=== PATIENT | male | born 1960 | race Hispanic/Latino ===

== ENCOUNTER 2017-02-17 | Observation (INO) | payer SELFPAY ==
[2017-02-17] VITALS: BMI 21.1
[2017-02-17 00:26] VITALS: TEMP 98.7
[2017-02-17] MEDS ORDERED: MethylPREDNISolone 40 mg Vial IVP STA (00:37)
--- NOTE | 2017-02-17 00:37 | C.PDOC ---
History Of Present Illness The patient, a 56 y/o male, presents to the ED for evaluation of COPD exacerbation which began several days ago. Patient states he ran out of albuterol and has been using his friend's Combivent with limited improvement. Patient denies fever. He reports green productive phlegm. He denies chest pain. Patient is also complaining of exacerbation of his chronic lower back pain. Patient states he finds limited improvement with Tramadol and Naproxyn. Patient has been prescribed Valium but patient has not been taking it due to working. Patient denies trauma. COPD EXAC X SEV DAYS. RAN OUT OF ALBUTEROL, HAS BEEN USING FRIEND'S COMBIVENT W LIMITED IMPROVE. NO FEVER. +GREEN PROD PHLEGM. NO CP. ALSO CO EXAC CHRONIC LBP. LIMITED IMPROVE W TRAMADOL AND NAPROXYN. PRESCRIBED VALIUM BUT PS HAS NOT BEEN TAKING IT DUE TO WORKING. NO TRAUMA. EXAM S/P NEB X 2 MILD RESP DISTRESS NONTOXIC HEENT NEG LUNGS +RETRACTIONS SPEAKING FULL SENTENCES; SCATTERED EXP WHEEZE CV RRR SINUS TACH BACK AROM WO DIFF NEURO INTACT Time Seen by Provider: 02/17/17 00:25 Chief Complaint (Nursing): Shortness Of Breath History Per: Patient History/Exam Limitations: no limitations Onset/Duration Of Symptoms: Days Current Symptoms Are (Timing): Still Present Initiating Event: Out Of Medications Quality: "Pain" Current Respiratory Medications: See Home Med List Associated Symptoms: Productive Cough (green phlegm ). denies: Fever Additional History Per: Patient Past Medical History Reviewed: Historical Data, Nursing Documentation, Vital Signs Vital Signs: Last Vital Signs Temp 98.7 F 02/17/17 00:17 Pulse 93 H 02/17/17 04:50 Resp 11 L 02/17/17 04:50 BP 137/68 02/17/17 04:50 Pulse Ox 94 L 02/17/17 04:50 - Medical History PMH: COPD, Gastrointestinal Ulcer Denies: Diabetes, Hepatitis, HIV, HTN, Chronic Kidney Disease, Seizures, Sexually Transmitted Disease Surgical History: Appendectomy, Tonsillectomy - [facility] Procedures CONTR ABD ARTERIOGRM NEC (05/20/07) DETOXIFICATION SERVICES FOR SUBSTANCE ABUSE TREATMENT (01/14/17) ESOPHAGOGASTRODUODENOSCOPY [EGD] W/CLOSED BIOPSY (05/20/07) GROUP MOTION PICTURE SCENE BUILDER FOR SUBSTANCE ABUSE TREATMENT, PSYCHOEDUCATION (01/14/17) GROUP MOTION PICTURE SCENE BUILDER FOR SUBSTANCE ABUSE, COGNITIVE BEHAVIORAL (01/14/17) GROUP PSYCHOTHERAPY (11/21/16) INDIV MOTION PICTURE SCENE BUILDER FOR SUBSTANCE ABUSE TREATMENT, PSYCHOEDUCATION (01/14/17) INDIV MOTION PICTURE SCENE BUILDER FOR SUBSTANCE ABUSE, COGNITIVE BEHAVIORAL (01/14/17) INDIV PSYCHOTHERAPY FOR SUBSTANCE ABUSE TREATMENT, SUPPORT (01/14/17) INJECT/INFUSE NEC (03/20/12) Family History: States: Unknown Family Hx - Social History Hx Tobacco Use: Yes Hx Alcohol Use: No Hx Substance Use: No - Immunization History Hx Tetanus Toxoid Vaccination: Yes Hx Influenza Vaccination: Yes Hx Pneumococcal Vaccination: Yes Review Of Systems Except As Marked, All Systems Reviewed And Found Negative. Constitutional: Negative for: Fever Cardiovascular: Negative for: Chest Pain Respiratory: Positive for: Cough, Sputum (green ), Other (+COPD exacerbation ) Musculoskeletal: Positive for: Back Pain Skin: Negative for: Other (no trauma ) Physical Exam - Physical Exam Appears: Non-toxic, Other (mild respirtory distress. s/p nebulizer x2 ) Skin: Normal Color, Warm, Dry Head: Atraumatic, Normacephalic Eye(s): bilateral: Normal Inspection, EOMI Ear(s): Bilateral: Normal Nose: Normal, No Discharge Oral Mucosa: Moist Throat: Normal, No Erythema, No Exudate Neck: Normal ROM, Supple Chest: Symmetrical, No Deformity, No Tenderness Cardiovascular: Rhythm Regular (regular rate and rhythm ), No Murmur, Other (+ sinus tachycardia ) Respiratory: No Rales, No Rhonchi, Wheezing (scattered, expiratory ), Other (+ retractions. speaking full sentences ) Back: Normal Inspection, No Vertebral Tenderness, No Decreased ROM (able to ROM without difficulty ), No Paraspinal Tenderness Extremity: Normal ROM, Capillary Refill (less than 2 seconds ) Neurological/Psych: Oriented x3, Normal Speech, Normal Cognition Gait: Steady ED Course And Treatment - Laboratory Results Result Diagrams: 02/17/17 01:11 02/17/17 01:11 ECG: Interpreted By Me ECG Rhythm: Sinus Tachycardia ECG Interpretation: Normal Rate From EC O2 Sat by Pulse Oximetry: 99 (on RA) Pulse Ox Interpretation: Normal - Radiology CXR: Interpreted by Me, Viewed By Me CXR Interpretation: Yes: No Acute Disease, Other (unchanged from prior ) Progress Note: Labs, CXR, and EKG ordered and reviewed. Patient received Duoneb IH, Solu-Medrol IV, and Toradol IV. ED OBSERVATION Discharge: Yes Date of observation admission: 02/17/17 Time of observation admission: 01:00 - Observation admission statement Patient is being placed in observation because:: COPD EXAC; CHRONIC BACK PAIN EXAC - Goals of Observation Goals of observation are:: SX IMPROVE - Progress Note Progress Note: 02/17/17 02:12 BACK PAIN IMPROVED, STILL W SOME SOB. VSS 02/17/17 05:59 FEELS BETTER NARD VSS Disposition Counseled Patient/Family Regarding: Studies Performed, Diagnosis, Need For Followup, Rx Given - Disposition Disposition: HOME/ ROUTINE Disposition Time: 05:59 Condition: IMPROVED - Clinical Impression Clinical Impression: COPD exacerbation, Chronic back pain - Scribe Statement The provider has reviewed the documentation as recorded by the Scribe (Veronica Clay) Provider Attestation: All medical record entries made by the Scribe were at my direction and personally dictated by me. I have reviewed the chart and agree that the record accurately reflects my personal performance of the history, physical exam, medical decision making, and the department course for this patient. I have also personally directed, reviewed, and agree with the discharge instructions and disposition.
[2017-02-17] MEDS ORDERED: Albuterol 0.083% Inhal Sol (2.5 mg/3 mL) UD ONE (00:47)
[2017-02-17] MEDS ORDERED: MethylPREDNISolone 40 mg Vial ONE (00:47)
[2017-02-17] MEDS: Albuterol-Ipratrop 3 mg / 0.5 (3 ml) UD IH SCH ×3 (00:50→01:15)
[2017-02-17] MEDS ORDERED: Azithromycin 500 MG in Sodium Chloride 0.9% 250 ML IV STA (00:58)
[2017-02-17 01:14] LABS: BASO % 0.1 % (0.0-2.0); EOS # 0.1 K/uL (0.0-0.7); EOS % 0.4 % (0.0-4.0); HEMATOCRIT 36.7 % (35.0-51.0); LYMPH # 1.2 K/uL (1.0-4.3); LYMPH % 7.1 % (20.0-40.0); MEAN CELL VOLUME 94.7 fL (80.0-94.0); MEAN CORPUSCULAR HEMOGLOBIN 32.2 pg (27.0-31.0); MEAN PLATELET VOLUME 9.2 fL (7.2-11.7); MONO # 0.7 K/uL (0.0-0.8); MONO % 4.3 % (0.0-10.0); PLATELET COUNT 153 K/uL (130-400); RED CELL DISTRIBUTION WIDTH 13.5 % (11.5-14.5); WHITE BLOOD COUNT 16.6 K/uL (4.8-10.8)
[2017-02-17 01:21] LABS: CHLORIDE 97 mmol/L (98-107)
[2017-02-17 01:22] LABS: POTASSIUM 3.9 mmol/L (3.6-5.2); SODIUM 135 mmol/L (132-148)
[2017-02-17 01:24] LABS: GFR AFRICAN-AMERICAN > 60
[2017-02-17 01:25] LABS: BLOOD UREA NITROGEN 12 mg/dL (9-20); CALCIUM 8.2 mg/dl (8.6-10.4); CARBON DIOXIDE 26 mmol/L (22-30); GLUCOSE,RANDOM 117 mg/dL (75-110)
[2017-02-17 02:03] LABS: NEUTROPHIL 88 % (50-75); REACTIVE LYMPHOCYTES 1 % (0-0); TOTAL CELLS COUNTED 100
[2017-02-17 04:51] VITALS: BP 137/68; PULSE 93; RESP 11
[2017-02-17 05:59] VITALS: O2SAT 99
--- NOTE | 2017-02-17 13:48 | RAD ---
PROCEDURE: CHEST RADIOGRAPH, 1 VIEW HISTORY: SOB COUGH COMPARISON: 01/16/2027 T FINDINGS: LUNGS: No infiltrate. Pulmonary hyperinflation consistent with emphysema. PLEURA: No pneumothorax or pleural fluid seen. CARDIOVASCULAR: Normal. OSSEOUS STRUCTURES: No significant abnormalities. VISUALIZED UPPER ABDOMEN: Normal. OTHER FINDINGS: None. IMPRESSION: No active disease.
--- NOTE | 2017-02-18 16:19 | CARD ---
APPROVED REPORT EKG Measurement Heart [id number] <Conclusion> Sinus tachycardia Otherwise normal ECG
== END 2017-02-17 05:59 | disposition home or self-care (01) ==
LOC: C.ER → C.9OBSV 01:00
PROVIDERS: ADMIT Emergency Medicine; ATTEND Emergency Medicine
DX: J44.1 Chronic obstructive pulmonary disease with (acute) exacerbation (principal); Z87.891 Personal history of nicotine dependence; Z87.11 Personal history of peptic ulcer disease; G89.29 Other chronic pain; M54.5 Low back pain
CPT/HCPCS: 71010; 80048; 85025; 93005; 94150; 96374; 96375; 99284; G0378; J0456; J1885; J2920; J7050

== ENCOUNTER 2017-02-18 05:12 | Inpatient (IN) | payer SELFPAY ==
[2017-02-18 05:12] VITALS: BMI 21.1
--- NOTE | 2017-02-18 05:26 | C.PDOC ---
History Of Present Illness Patient brought on by ALS for SOB for 2 days but more so tonight.Hx of COPD Chief Complaint (Nursing): Shortness Of Breath History Per: Patient History/Exam Limitations: no limitations Onset/Duration Of Symptoms: Hrs Current Symptoms Are (Timing): Still Present Quality: "Pain" Exacerbating Factor(s): Exertion, Coughing Severity: Moderate Pain Scale Rating Of: 7 Associated Symptoms: Sweating, Chest Pain. denies: Fever, Chills, Bloody Cough , Productive Cough Recent travel outside of the [place]: No Additional History Per: Patient, EMS Past Medical History Vital Signs: Last Vital Signs Temp 98.2 F 02/18/17 05:14 Pulse 105 H 02/18/17 05:14 Resp 16 02/18/17 06:00 BP 107/71 02/18/17 05:14 Pulse Ox 99 02/18/17 06:20 - Medical History PMH: COPD, Gastrointestinal Ulcer Denies: Diabetes, Hepatitis, HIV, HTN, Chronic Kidney Disease, Seizures, Sexually Transmitted Disease Surgical History: Appendectomy, Tonsillectomy - [facility] Procedures CONTR ABD ARTERIOGRM NEC (05/20/07) DETOXIFICATION SERVICES FOR SUBSTANCE ABUSE TREATMENT (01/14/17) ESOPHAGOGASTRODUODENOSCOPY [EGD] W/CLOSED BIOPSY (05/20/07) GROUP SUSTAINABILITY ANALYST FOR SUBSTANCE ABUSE TREATMENT, PSYCHOEDUCATION (01/14/17) GROUP SUSTAINABILITY ANALYST FOR SUBSTANCE ABUSE, COGNITIVE BEHAVIORAL (01/14/17) GROUP PSYCHOTHERAPY (11/21/16) INDIV SUSTAINABILITY ANALYST FOR SUBSTANCE ABUSE TREATMENT, PSYCHOEDUCATION (01/14/17) INDIV SUSTAINABILITY ANALYST FOR SUBSTANCE ABUSE, COGNITIVE BEHAVIORAL (01/14/17) INDIV PSYCHOTHERAPY FOR SUBSTANCE ABUSE TREATMENT, SUPPORT (01/14/17) INJECT/INFUSE NEC (03/20/12) Family History: States: Unknown Family Hx - Social History Hx Tobacco Use: Yes Hx Alcohol Use: No Hx Substance Use: No - Immunization History Hx Tetanus Toxoid Vaccination: Yes Hx Influenza Vaccination: Yes Hx Pneumococcal Vaccination: Yes Review Of Systems Constitutional: Positive for: Sweats. Negative for: Fever, Chills Cardiovascular: Positive for: Chest Pain. Negative for: Palpitations, Orthopnea , Paroxysmal Noc. Dyspnea, Edema Respiratory: Positive for: Cough, Shortness of Breath, Wheezing Gastrointestinal: Negative for: Nausea, Vomiting, Abdominal Pain, Diarrhea Genitourinary: Negative for: Dysuria, Frequency, Incontinence Musculoskeletal: Negative for: Shoulder Pain, Arm Pain Skin: Negative for: Rash Neurological: Negative for: Weakness, Numbness, Incoordination, Change in Speech Psych: Negative for: Anxiety Physical Exam - Physical Exam Appears: In Acute Distress Skin: Normal Color Nose: Normal Oral Mucosa: Moist Throat: Normal Neck: Normal, Normal ROM Chest: Symmetrical, No Deformity, No Tenderness Cardiovascular: Rhythm Regular Respiratory: Decreased Breath Sounds, Accessory Muscle Use, No Rales, Rhonchi, Wheezing Gastrointestinal/Abdominal: Normal Exam Back: Normal Inspection Extremity: Normal ROM, No Tenderness, No Pedal Edema ED Course And Treatment - Laboratory Results Result Diagrams: 02/18/17 06:02 02/18/17 06:02 ECG: Interpreted By Me, Viewed By Me ECG Rhythm: Sinus Rhythm ECG Interpretation: Normal, No Acute Changes Interpretation Of ECG: NSR, ALINA, borderline tracings. Rate From EC O2 Sat by Pulse Oximetry: 99 Pulse Ox Interpretation: Normal - Radiology CXR: Interpreted by Me, Viewed By Me CXR Interpretation: Yes: No Acute Disease. No: Infiltrates, Cardiomegaly Disposition Discussed With : Phillip Dey Doctor Will See Patient In The: Hospital Counseled Patient/Family Regarding: Diagnosis - Disposition Disposition: HOSPITALIZED Disposition Time: 06:30 Condition: STABLE - POA Present On Arrival: None - Clinical Impression Clinical Impression: COPD exacerbation
[2017-02-18] MEDS ORDERED: Sodium Chloride 0.9% 1,000 ML IV ONE (05:29)
[2017-02-18] MEDS ORDERED: Albuterol-Ipratrop 3 mg / 0.5 (3 ml) UD INH STA (05:30)
[2017-02-18 06:05] LABS: BASO % 0.1 % (0.0-2.0); EOS % 0.1 % (0.0-4.0); HEMATOCRIT 38.3 % (35.0-51.0); LYMPH # 1.8 K/uL (1.0-4.3); LYMPH % 8.2 % (20.0-40.0); MEAN CELL VOLUME 95.4 fL (80.0-94.0); MEAN CORPUSCULAR HEMOGLOBIN 32.1 pg (27.0-31.0); MEAN CORPUSCULAR HGB CONC 33.6 g/dL (33.0-37.0); MEAN PLATELET VOLUME 9.1 fL (7.2-11.7); MONO # 1.4 K/uL (0.0-0.8); MONO % 6.2 % (0.0-10.0); PLATELET COUNT 176 K/uL (130-400); RED CELL DISTRIBUTION WIDTH 13.7 % (11.5-14.5); WHITE BLOOD COUNT 22.4 K/uL (4.8-10.8)
[2017-02-18 06:19] LABS: CHLORIDE 101 mmol/L (98-107)
[2017-02-18 06:20] LABS: POTASSIUM 4.3 mmol/L (3.6-5.2); SODIUM 140 mmol/L (132-148)
[2017-02-18 06:22] LABS: ALB/GLOB RATIO 1.2 (1.0-2.1); ALKALINE PHOSPHATASE 60 U/L (38-126); ALT/SGPT 26 U/L (21-72); AST/SGOT 29 U/L (17-59); BILIRUBIN,TOTAL 0.4 mg/dL (0.2-1.3); BLOOD UREA NITROGEN 16 mg/dL (9-20); CARBON DIOXIDE 27 mmol/L (22-30); GFR AFRICAN-AMERICAN > 60; TOTAL PROTEIN 6.6 g/dL (6.3-8.3)
[2017-02-18 06:23] LABS: CALCIUM 8.6 mg/dl (8.6-10.4); GLUCOSE,RANDOM 118 mg/dL (75-110)
[2017-02-18 06:45] LABS: NEUTROPHIL 86 % (50-75); TOTAL CELLS COUNTED 100
--- NOTE | 2017-02-18 08:46 | RAD ---
PROCEDURE: CHEST RADIOGRAPH, 1 VIEW HISTORY: Shortness of breath COMPARISON: None available. FINDINGS: LUNGS: Hyperinflation suggestive for COPD and or emphysematous changes. PLEURA: No pneumothorax or pleural fluid seen. CARDIOVASCULAR: Normal. OSSEOUS STRUCTURES: No significant abnormalities. VISUALIZED UPPER ABDOMEN: Normal. OTHER FINDINGS: None. IMPRESSION: No active disease.
--- NOTE | 2017-02-18 09:22 | CP.PCM.HP ---
<Suman Torres - Last Filed: 02/18/17 21:54> History of Present Illness - History of Present Illness History of Present Illness: CC: SOB + cough x2 days HPI: 56 year old Male with PMHx COPD, GI ulcer, Depression - was brought in by ALS due to SOB and productive cough x4 days. He was recently seen in the ED yesterday for similar complaints. He reports being outside to smoke a cigaret 2 nites ago, when he became severely SOB. He attempted to use his Incruz and Arnuity inhalers, but did not find relief this time (this spurred the ED visit) . This morning, he became SOB while in the bathroom at his alf, felt he could not make it [place] the [place] to take his medicine, and had the alf call him an ambulance. His cough is productive of yellow/green sputum, and has not taken any additional medication besides his inhalers. Admits to diaphoresis, SOB , cough, and diarrhea. Denies f/c, H/A, change in vision, chest pain, abdominal pain, n/v, constipation, or any additional complaints. PMHx: COPD, GI ulcer, Depression, Alcohol abuse, Degenerative disk dz PSHx: tonsillectomy, appendectomy, removal of perianal cysts, GI surgery for perforated ulcer (pt unsure of what surgery) Meds: Duoneb 3mL INH RQ6, Mirtazapine 30mg PO HS, Zoloft 200mg PO, Arnuity ( inhaler), Incruz (inhaler) Allergies: NKDA FamHx: denies SocHx: resides at [facility] for the last 2 mo, works at the [employer]. Tobacco-1.5 ppd x45 yrs, EtOH- stopped 1.5 yrs ago, used to drink pint/ day. Drugs-denies. PMD: [place] (clinic) Present on Admission - Present on Admission Any Indicators Present on Admission: No Review of Systems - Constitutional Constitutional: absent: Anorexia, Chills, Weakness - EENT Eyes: absent: Blurred Vision, Change in Vision Nose/Mouth/Throat: absent: Nasal Congestion, Nasal Discharge - Cardiovascular Cardiovascular: Dyspnea. absent: Chest Pain, Chest Pain at Rest - Respiratory Respiratory: Cough, Dyspnea. absent: Hemoptysis - Gastrointestinal Gastrointestinal: Diarrhea. absent: Bloating, Change in Stool Character, Cramping, Hematemesis, Hematochezia (spotting on toilet paper) - Genitourinary Genitourinary: absent: Difficulty Urinating, Dysuria - Neurological Neurological: absent: Dizziness, Numbness - Psychiatric Psychiatric: absent: Anxiety, Confusion, Depression - Hematologic/Lymphatic Hematologic: absent: Easy Bleeding, Easy Bruising, Lymphadenopathy Past Patient History - Infectious Disease Hx of Infectious Diseases: None - Past Medical History & Family History Past Medical History?: Yes - Past Social History Smoking Status: Heavy Smoker > 10 Cigarettes Daily - CARDIAC Hx Hypertension: No - PULMONARY Hx Chronic Obstructive Pulmonary Disease (COPD): Yes - NEUROLOGICAL Hx Seizures: No - HEENT Hx HEENT Problems: No - RENAL Hx Chronic Kidney Disease: No - ENDOCRINE/METABOLIC Hx Endocrine Disorders: No - HEMATOLOGICAL/ONCOLOGICAL Hx Human Immunodeficiency Virus (HIV): No - INTEGUMENTARY Hx Dermatological Problems: No - MUSCULOSKELETAL/RHEUMATOLOGICAL Hx Musculoskeletal Disorders: No Hx Falls: No - GASTROINTESTINAL Hx Gastroesophageal Reflux: Yes Hx Ulcer: Yes - GENITOURINARY/GYNECOLOGICAL Hx Sexually Transmitted Disorders: No - PSYCHIATRIC Hx Substance Use: No - SURGICAL HISTORY Hx Appendectomy: Yes Hx Tonsillectomy: Yes - ANESTHESIA Hx Anesthesia: Yes Hx Anesthesia Reactions: No Meds Allergies/Adverse Reactions: Allergies Allergy/AdvReac Type Severity Reaction Status Date / Time No Known Allergies Allergy Verified 01/26/17 11:14 Physical Exam - Constitutional Appears: Non-toxic, No Acute Distress - Head Exam Head Exam: ATRAUMATIC, NORMAL INSPECTION - Eye Exam Eye Exam: EOMI - ENT Exam ENT Exam: Mucous Membranes Moist - Neck Exam Neck exam: Positive for: Normal Inspection - Respiratory Exam Respiratory Exam: Clear to Auscultation Bilateral, NORMAL BREATHING PATTERN. absent: Wheezes - Cardiovascular Exam Cardiovascular Exam: REGULAR RHYTHM, +S1, +S2 - GI/Abdominal Exam GI & Abdominal Exam: Normal Bowel Sounds, Soft. absent: Tenderness - Rectal Exam Rectal Exam: Hemorrhoids (mild, internal) - Extremities Exam Extremities exam: Positive for: normal inspection. Negative for: pedal edema, tenderness - Back Exam Back exam: NORMAL INSPECTION - Neurological Exam Neurological exam: Alert, CN II-XII Intact, Oriented x3 - Psychiatric Exam Psychiatric exam: Anxious (mildly), Normal Affect, Normal Mood - Skin Skin Exam: Dry, Intact, Normal Color, Warm Results - Vital Signs Recent Vital Signs: Last Vital Signs Temp 97.4 F L 02/18/17 08:37 Pulse 94 H 02/18/17 08:37 Resp 20 02/18/17 08:37 BP 109/68 02/18/17 08:37 Pulse Ox 97 02/18/17 08:37 - Labs Result Diagrams: 02/18/17 06:02 02/18/17 06:02 Assessment & Plan - Assessment and Plan (Free Text) Assessment: COPD Exacerbation -patient on home inhalers Incruz and Arnuity (didn't take morning of admission) Duoneb 3mL INH RQ6 Solumedrol 40mg IVP Q6H Advair diskus 250/50 RQ12 Spriva 18mcg INH RQ24 Leukocytosis WBC 22.4; neutrophils 84% Avelox 400mg IVPB Q12 Depression Continue home meds: Mirtazapine 30mg PO HS; Zoloft 200mg PO daily hx S/I hx alcohol abuse + detox Spotting on Toilet paper rectal exam - possible internal hemorrhoids -f/u stool occult Prophylaxis Pepcid 20mg PO d Hep 5k SCQ8 - Date & Time Date: 02/18/17 Time: 08:00 <Bakari Benson - Last Filed: 02/19/17 16:02> Results - Vital Signs Recent Vital Signs: Last Vital Signs Temp 97.8 F 02/19/17 08:00 Pulse 88 02/19/17 08:00 Resp 20 02/19/17 08:00 BP 154/85 H 02/19/17 08:00 Pulse Ox 96 02/19/17 08:00 - Labs Result Diagrams: 02/19/17 06:56 02/19/17 06:56 Labs: Laboratory Results - last 24 hr 02/19/17 06:56 WBC 17.4 H RBC 3.73 L Hgb 11.9 L Hct 35.8 MCV 95.8 H MCH 32.0 H MCHC 33.4 RDW 13.9 Plt Count 188 MPV 9.5 Neut % (Auto) 94.5 H Lymph % (Auto) 3.6 L [place] % (Auto) 1.9 Eos % (Auto) 0.0 Baso % (Auto) 0.0 Neut # 16.4 H Lymph # 0.6 L [place] # 0.3 Eos # 0.0 Baso # 0.0 Neutrophils % (Manual) 94 H Lymphocytes % (Manual) 5 L Monocytes % (Manual) 1 Platelet Estimate Normal Large Platelets Present Hypochromasia (manual) Slight Poikilocytosis (manual Slight Anisocytosis (manual) Slight [place] Cells Slight Sodium 139 Potassium 4.5 Chloride 98 Carbon Dioxide 29 Anion Gap 16 BUN 16 Creatinine 0.6 L Est GFR ( Amer) > 60 Est GFR (Non-Af Amer) > 60 Random Glucose 123 H Calcium 8.5 L Phosphorus 3.5 Magnesium 2.1 Total Bilirubin 0.1 L AST 18 ALT 13 L D Alkaline Phosphatase 59 Total Protein 5.8 L Albumin 3.3 L Globulin 2.5 Albumin/Globulin Ratio 1.3 Attending/Attestation - Attestation I have personally seen and examined this patient.: Yes I have fully participated in the care of the patient.: Yes I have reviewed all pertinent clinical information: Yes Notes (Text): 02/19/17 16:02 Patient was seen and examined at bedside with the residents Patient complains of cough with expectoration and was started for COPD exacerbation and for pneumonia I discussed the plan of care with the resident and agree with the above history and physical and assessment/plan by the resident.
[2017-02-18 10:26] LABS: PARTIAL THROMBOPLASTIN TIME 31 SECONDS (21-34)
[2017-02-18] MEDS: Moxifloxacin IV 400mg/250ml NS 250 ML IVPB SCH (10:27)
[2017-02-18] MEDS: MethylPREDNISolone 40 mg Vial IVP SCH ×3 (10:28→21:00)
[2017-02-18] MEDS: Fluticasone-Salmeterol 250-50mcg Diskus INH SCH ×2 (13:14→19:13)
[2017-02-18] MEDS: Albuterol-Ipratrop 3 mg / 0.5 (3 ml) UD INH SCH ×2 (13:14→19:13)
[2017-02-18] MEDS: Tiotropium 18 mcg Cap For Inhalation INH SCH (13:15)
[2017-02-19] MEDS: Albuterol-Ipratrop 3 mg / 0.5 (3 ml) UD INH SCH ×4 (01:06→19:41)
[2017-02-19] MEDS: MethylPREDNISolone 40 mg Vial IVP SCH ×4 (02:20→21:20)
[2017-02-19 07:25] LABS: CHLORIDE 98 mmol/L (98-107); POTASSIUM 4.5 mmol/L (3.6-5.2); SODIUM 139 mmol/L (132-148)
[2017-02-19 07:27] LABS: BILIRUBIN,TOTAL 0.1 mg/dL (0.2-1.3); GFR AFRICAN-AMERICAN > 60
[2017-02-19 07:28] LABS: ALB/GLOB RATIO 1.3 (1.0-2.1); ALKALINE PHOSPHATASE 59 U/L (38-126); ALT/SGPT 13 U/L (21-72); AST/SGOT 18 U/L (17-59); BLOOD UREA NITROGEN 16 mg/dL (9-20); CARBON DIOXIDE 29 mmol/L (22-30); GLUCOSE,RANDOM 123 mg/dL (75-110); PHOSPHOROUS 3.5 mg/dL (2.5-4.5); TOTAL PROTEIN 5.8 g/dL (6.3-8.3)
[2017-02-19 07:29] LABS: CALCIUM 8.5 mg/dl (8.6-10.4); MAGNESIUM 2.1 mg/dL (1.6-2.3)
[2017-02-19 07:42] LABS: HEMATOCRIT 35.8 % (35.0-51.0); LYMPH # 0.6 K/uL (1.0-4.3); LYMPH % 3.6 % (20.0-40.0); MEAN CELL VOLUME 95.8 fL (80.0-94.0); MEAN CORPUSCULAR HGB CONC 33.4 g/dL (33.0-37.0); MEAN PLATELET VOLUME 9.5 fL (7.2-11.7); MONO # 0.3 K/uL (0.0-0.8); MONO % 1.9 % (0.0-10.0); PLATELET COUNT 188 K/uL (130-400); RED CELL DISTRIBUTION WIDTH 13.9 % (11.5-14.5); WHITE BLOOD COUNT 17.4 K/uL (4.8-10.8)
--- NOTE | 2017-02-19 07:42 | CP.PCM.PN ---
<Suman Torres - Last Filed: 02/19/17 21:34> Subjective - Date & Time of Evaluation Date of Evaluation: 02/19/17 Time of Evaluation: 07:10 - Subjective Subjective: PGY1 Medicine Note Patient seen and examined at bedside. No overnight events per nursing. Tolerating diet, no acute complaints. Cough continues to be productive of yellow /green sputum. Reports inhalers are working. Admits to SOB (improving), cough, and diarrhea. Denies f/c, H/A, change in vision, chest pain, abdominal pain, n/v , constipation, or any additional complaints. Objective - Vital Signs/Intake and Output Vital Signs (last 24 hours): Temp Pulse Resp BP Pulse Ox 96.9 F L 74 16 111/70 99 02/19/17 00:07 02/19/17 00:07 02/19/17 00:07 02/19/17 00:07 02/19/17 00:07 Intake and Output: 02/19/17 02/19/17 06:59 18:59 Intake Total 420 Balance 420 - Medications Medications: Current Medications Albuterol/Ipratropium (Duoneb 3 Mg/0.5 Mg (3 Ml) Ud) 3 ml INH RQ6 [facility] Last Admin: 02/19/17 01:06 Dose: Not Given Famotidine (Pepcid) 20 mg PO DAILY [facility] Last Admin: 02/18/17 10:28 Dose: 20 mg Heparin Sodium (Porcine) (Heparin) 5,000 units SC Q8 [facility] Last Admin: 02/19/17 05:45 Dose: 5,000 units Moxifloxacin HCl (Avelox Iv 400mg/250ml Ns) 250 mls @ 167 mls/hr IVPB Q24H [facility] Last Admin: 02/18/17 10:27 Dose: 167 mls/hr Methylprednisolone (Solu-Medrol) 40 mg IVP Q6H [facility] Last Admin: 02/19/17 02:20 Dose: 40 mg Mirtazapine (Remeron) 30 mg PO HS [facility] Last Admin: 02/18/17 22:00 Dose: 30 mg Fluticasone/Salmeterol (Advair Diskus 250/50) 1 puff INH RQ12 [facility] Last Admin: 02/18/17 19:13 Dose: 1 puff Sertraline HCl (Zoloft) 200 mg PO DAILY [facility] Last Admin: 02/18/17 17:45 Dose: 200 mg Tiotropium [place] (Spiriva) 18 mcg INH RQ24 [facility] Last Admin: 02/18/17 13:15 Dose: 18 mcg - Labs Labs: 02/19/17 06:56 APTT 31 SECONDS (21-34) 02/18/17 06:02 - Additional Findings Additional findings: - Constitutional Appears: Non-toxic, No Acute Distress - Head Exam Head Exam: ATRAUMATIC, NORMAL INSPECTION - Eye Exam Eye Exam: EOMI - ENT Exam ENT Exam: Mucous Membranes Moist - Neck Exam Neck exam: Positive for: Normal Inspection - Respiratory Exam Respiratory Exam: Clear to Auscultation Bilateral, NORMAL BREATHING PATTERN. absent: Wheezes - Cardiovascular Exam Cardiovascular Exam: REGULAR RHYTHM, +S1, +S2 - GI/Abdominal Exam GI & Abdominal Exam: Normal Bowel Sounds, Soft. absent: Tenderness - Rectal Exam Rectal Exam: Hemorrhoids (mild, internal) - Extremities Exam Extremities exam: Positive for: normal inspection. Negative for: pedal edema, tenderness - Back Exam Back exam: NORMAL INSPECTION - Neurological Exam Neurological exam: Alert, CN II-XII Intact, Oriented x3 - Psychiatric Exam Psychiatric exam: Anxious (mildly), Normal Affect, Normal Mood - Skin Skin Exam: Dry, Intact, Normal Color, Warm Assessment and Plan - Assessment and Plan (Free Text) Assessment: COPD Exacerbation 02/19: pt reports SOB persists, however the inhalers are helping/improving his condition. Continue current management. -patient on home inhalers Incruz and Arnuity (didn't take morning of admission) Duoneb 3mL INH RQ6 Solumedrol 40mg IVP Q6H Advair diskus 250/50 RQ12 Spriva 18mcg INH RQ24 Leukocytosis 02/19: WBC down trending. Continue abx. WBC 22.4; neutrophils 84% Avelox 400mg IVPB Q12 Depression Continue home meds: Mirtazapine 30mg PO HS; Zoloft 200mg PO daily hx S/I hx alcohol abuse + detox Spotting on Toilet paper rectal exam - possible internal hemorrhoids -stool occult - negative Prophylaxis Pepcid 20mg PO d Hep 5k SCQ8 Nicotine patch. <Bakari Benson - Last Filed: 02/20/17 15:14> Objective - Vital Signs/Intake and Output Vital Signs (last 24 hours): Temp Pulse Resp BP Pulse Ox 97.9 F 86 20 161/83 H 99 02/20/17 08:00 02/20/17 08:00 02/20/17 08:00 02/20/17 08:00 02/20/17 08:00 Intake and Output: 02/20/17 02/20/17 06:59 18:59 Intake Total 300 Balance 300 - Medications Medications: Current Medications Albuterol/Ipratropium (Duoneb 3 Mg/0.5 Mg (3 Ml) Ud) 3 ml INH RQ6 [facility] Last Admin: 02/20/17 14:16 Dose: 3 ml Famotidine (Pepcid) 20 mg PO DAILY [facility] Last Admin: 02/20/17 11:42 Dose: 20 mg Heparin Sodium (Porcine) (Heparin) 5,000 units SC Q8 [facility] Last Admin: 02/20/17 14:51 Dose: 5,000 units Moxifloxacin HCl (Avelox Iv 400mg/250ml Ns) 250 mls @ 167 mls/hr IVPB Q24H [facility] Last Admin: 02/20/17 09:05 Dose: 167 mls/hr Methylprednisolone (Solu-Medrol) 40 mg IVP Q8 [facility] Mirtazapine (Remeron) 30 mg PO HS [facility] Last Admin: 02/19/17 21:20 Dose: 30 mg Nicotine (Nicoderm Cq) 1 patch TD DAILY [facility] Last Admin: 02/20/17 11:42 Dose: 1 patch Fluticasone/Salmeterol (Advair Diskus 250/50) 1 puff INH RQ12 [facility] Last Admin: 02/20/17 08:30 Dose: 1 puff Sertraline HCl (Zoloft) 200 mg PO DAILY [facility] Last Admin: 02/20/17 11:42 Dose: 200 mg Tiotropium [place] (Spiriva) 18 mcg INH RQ24 [facility] Last Admin: 02/20/17 08:30 Dose: 18 mcg - Labs Labs: 02/20/17 08:30 02/20/17 08:30 APTT 31 SECONDS (21-34) 02/18/17 06:02 Attending/Attestation - Attestation I have personally seen and examined this patient.: Yes I have fully participated in the care of the patient.: Yes I have reviewed all pertinent clinical information, including history, physical exam and plan: Yes Notes (Text): 02/20/17 15:12 Patient was seen and examined at bedside with the resident Patient still has cough and expectoration We will continue antibiotics Patient is currently on Avelox We will also continue steroids for wheezing Patient is not ready for discharge today.
[2017-02-19 08:34] VITALS: RESP 20
[2017-02-19] MEDS: Fluticasone-Salmeterol 250-50mcg Diskus INH SCH ×2 (08:38→19:41)
[2017-02-19] MEDS: Tiotropium 18 mcg Cap For Inhalation INH SCH (08:38)
[2017-02-19] MEDS: Moxifloxacin IV 400mg/250ml NS 250 ML IVPB SCH (09:40)
[2017-02-19 09:42] LABS: NEUTROPHIL 94 % (50-75); TOTAL CELLS COUNTED 100
[2017-02-19 09:43] LABS: LARGE PLATELETS PRESENT
[2017-02-20] MEDS: Albuterol-Ipratrop 3 mg / 0.5 (3 ml) UD INH SCH ×4 (01:36→20:06)
[2017-02-20] MEDS: MethylPREDNISolone 40 mg Vial IVP SCH ×4 (02:29→21:40)
[2017-02-20] MEDS: Tiotropium 18 mcg Cap For Inhalation INH SCH (08:30)
[2017-02-20] MEDS: Fluticasone-Salmeterol 250-50mcg Diskus INH SCH ×2 (08:30→20:07)
[2017-02-20 08:38] LABS: BASO % 0.1 % (0.0-2.0); HEMATOCRIT 38.8 % (35.0-51.0); LYMPH # 0.7 K/uL (1.0-4.3); LYMPH % 3.9 % (20.0-40.0); MEAN CELL VOLUME 95.9 fL (80.0-94.0); MEAN CORPUSCULAR HEMOGLOBIN 31.6 pg (27.0-31.0); MEAN CORPUSCULAR HGB CONC 32.9 g/dL (33.0-37.0); MEAN PLATELET VOLUME 9.3 fL (7.2-11.7); MONO # 0.3 K/uL (0.0-0.8); MONO % 1.7 % (0.0-10.0); PLATELET COUNT 223 K/uL (130-400); RED CELL DISTRIBUTION WIDTH 13.8 % (11.5-14.5); WHITE BLOOD COUNT 16.8 K/uL (4.8-10.8)
[2017-02-20 08:47] LABS: CHLORIDE 98 mmol/L (98-107); POTASSIUM 3.9 mmol/L (3.6-5.2); SODIUM 141 mmol/L (132-148)
[2017-02-20 08:49] LABS: ALB/GLOB RATIO 1.3 (1.0-2.1); ALKALINE PHOSPHATASE 58 U/L (38-126); AST/SGOT 24 U/L (17-59); BILIRUBIN,TOTAL 0.1 mg/dL (0.2-1.3); BLOOD UREA NITROGEN 15 mg/dL (9-20); CARBON DIOXIDE 30 mmol/L (22-30); GFR AFRICAN-AMERICAN > 60; GLUCOSE,RANDOM 149 mg/dL (75-110); TOTAL PROTEIN 5.7 g/dL (6.3-8.3)
[2017-02-20 08:50] LABS: ALT/SGPT 27 U/L (21-72); CALCIUM 8.4 mg/dl (8.6-10.4); PHOSPHOROUS 4.1 mg/dL (2.5-4.5)
[2017-02-20] MEDS: Moxifloxacin IV 400mg/250ml NS 250 ML IVPB SCH (09:05)
[2017-02-20 09:27] LABS: NEUTROPHIL 90 % (50-75); TOTAL CELLS COUNTED 100
[2017-02-20] MEDS ORDERED: MethylPREDNISolone 40 mg Vial IVP SCH (14:00)
--- NOTE | 2017-02-20 20:23 | CP.PCM.PN ---
<Marco AvivianeSuman - Last Filed: 02/20/17 20:23> Subjective - Date & Time of Evaluation Date of Evaluation: 02/20/17 Time of Evaluation: 08:00 - Subjective Subjective: PGY1 Medicine Note Patient seen and examined at bedside. No overnight events per nursing. Tolerating diet, no acute complaints. Cough is improving, mildly productive. Reports inhalers are working. Reports SOB and cough are improving. Denies f/c, H /A, change in vision, chest pain, abdominal pain, n/v, diarrhea, constipation, or any additional complaints. Objective - Vital Signs/Intake and Output Vital Signs (last 24 hours): Temp Pulse Resp BP Pulse Ox 98.4 F 92 H 20 149/79 95 02/20/17 15:25 02/20/17 15:25 02/20/17 15:25 02/20/17 15:25 02/20/17 15:25 Intake and Output: 02/20/17 02/21/17 18:59 06:59 Intake Total 730 Balance 730 - Medications Medications: Current Medications Albuterol/Ipratropium (Duoneb 3 Mg/0.5 Mg (3 Ml) Ud) 3 ml INH RQ6 FERNANDA Last Admin: 02/20/17 20:06 Dose: 3 ml Famotidine (Pepcid) 20 mg PO DAILY FERNANDA Last Admin: 02/20/17 11:42 Dose: 20 mg Heparin Sodium (Porcine) (Heparin) 5,000 units SC Q8 FERNANDA Last Admin: 02/20/17 14:51 Dose: 5,000 units Moxifloxacin HCl (Avelox Iv 400mg/250ml Ns) 250 mls @ 167 mls/hr IVPB Q24H FERNANDA Last Admin: 02/20/17 09:05 Dose: 167 mls/hr Methylprednisolone (Solu-Medrol) 40 mg IVP Q8 FERNANDA Last Admin: 02/20/17 17:22 Dose: 40 mg Mirtazapine (Remeron) 30 mg PO HS [facility]ERNANDA Last Admin: 02/19/17 21:20 Dose: 30 mg Nicotine (Nicoderm Cq) 1 patch TD DAILY [facility]ERNANDA Last Admin: 02/20/17 11:42 Dose: 1 patch Fluticasone/Salmeterol (Advair Diskus 250/50) 1 puff INH RQ12 [facility]ERNANDA Last Admin: 02/20/17 20:07 Dose: 1 puff Sertraline HCl (Zoloft) [address] [facility] Last Admin: 02/20/17 11:42 Dose: 200 mg Tiotropium Hardy (Spiriva) [address] [facility] Last Admin: 02/20/17 08:30 Dose: 18 mcg - Labs Labs: 02/20/17 08:30 02/20/17 08:30 APTT 31 SECONDS (21-34) 02/18/17 06:02 - Additional Findings Additional findings: - Constitutional Appears: Non-toxic, No Acute Distress - Head Exam Head Exam: ATRAUMATIC, NORMAL INSPECTION - Eye Exam Eye Exam: EOMI - ENT Exam ENT Exam: Mucous Membranes Moist - Neck Exam Neck exam: Positive for: Normal Inspection - Respiratory Exam Respiratory Exam: Clear to Auscultation Bilateral, NORMAL BREATHING PATTERN. absent: Wheezes - Cardiovascular Exam Cardiovascular Exam: REGULAR RHYTHM, +S1, +S2 - GI/Abdominal Exam GI & Abdominal Exam: Normal Bowel Sounds, Soft. absent: Tenderness - Rectal Exam Rectal Exam: Hemorrhoids (mild, internal) - Extremities Exam Extremities exam: Positive for: normal inspection. Negative for: pedal edema, tenderness - Back Exam Back exam: NORMAL INSPECTION - Neurological Exam Neurological exam: Alert, CN II-XII Intact, Oriented x3 - Psychiatric Exam Psychiatric exam: Anxious (mildly), Normal Affect, Normal Mood - Skin Skin Exam: Dry, Intact, Normal Color, Warm Assessment and Plan - Assessment and Plan (Free Text) Assessment: COPD Exacerbation 02/20: Dec to Solumedrol 40mg IVP Q8H. Tomorrow will further taper. 02/19-02/20: SOB improving. Inhalers are helping/improving his condition. Continue current management. -patient on home inhalers Incruz and Arnuity (didn't take morning of admission) Duoneb 3mL INH RQ6 Solumedrol 40mg IVP Q8H Advair diskus 250/50 RQ12 Spriva 18mcg INH RQ24 Leukocytosis 02/19-02/20: WBC down trending. Continue abx. WBC 22.4; neutrophils 84% Avelox 400mg IVPB Q12 Depression 02/20: Stable Continue home meds: Mirtazapine 30mg PO HS; Zoloft 200mg PO daily hx S/I hx alcohol abuse + detox Spotting on Toilet paper rectal exam - possible internal hemorrhoids -stool occult - negative Prophylaxis Pepcid 20mg PO d Hep 5k SCQ8 Nicotine patch. <Minerva Bensonkane Altman - Last Filed: 02/21/17 09:11> Objective - Vital Signs/Intake and Output Vital Signs (last 24 hours): Temp Pulse Resp BP Pulse Ox 98 F 93 H 20 136/79 95 02/21/17 07:00 02/21/17 07:00 02/21/17 07:00 02/21/17 07:00 02/21/17 07:00 Intake and Output: 02/21/17 02/21/17 06:59 18:59 Intake Total 300 Output Total 500 Balance -200 - Medications Medications: Current Medications Albuterol/Ipratropium (Duoneb 3 Mg/0.5 Mg (3 Ml) Ud) [address] [facility] Last Admin: 02/21/17 07:58 Dose: 3 ml Famotidine (Pepcid) [address] [facility] Last Admin: 02/20/17 11:42 Dose: 20 mg Heparin Sodium (Porcine) (Heparin) 5,[address] [facility] Last Admin: 02/21/17 05:45 Dose: 5,000 units Moxifloxacin HCl (Avelox Iv 400mg/250ml Ns) 250 mls @ 167 mls/hr IVPB Q24H [facility] Last Admin: 02/20/17 09:05 Dose: 167 mls/hr Methylprednisolone (Solu-Medrol) [address] [facility] Last Admin: 02/21/17 05:45 Dose: 40 mg Mirtazapine (Remeron) [address] [facility] Last Admin: 02/20/17 21:40 Dose: 30 mg Nicotine (Nicoderm Cq) [address] [facility] Last Admin: 02/20/17 11:42 Dose: 1 patch Fluticasone/Salmeterol (Advair Diskus 250/50) [address] [facility] Last Admin: 02/21/17 07:59 Dose: 1 puff Sertraline HCl (Zoloft) [address] [facility] Last Admin: 02/20/17 11:42 Dose: 200 mg Tiotropium Hardy (Spiriva) [address] [facility] Last Admin: 02/21/17 07:58 Dose: 18 mcg - Labs Labs: 02/21/17 07:47 02/21/17 07:47 APTT 31 SECONDS (21-34) 02/18/17 06:02 Attending/Attestation - Attestation I have personally seen and examined this patient.: Yes I have fully participated in the care of the patient.: Yes I have reviewed all pertinent clinical information, including history, physical exam and plan: Yes Notes (Text): 02/21/17 09:10 Patient was seen and examined at bedside with the resident Cough and expectoration is improving We will continue IV steroids and IV antibiotics We will taper down the steroids to 40 mg every 8 hours today. We will monitor the patient overnight and if the patient is medically stable for likely discharge in the morning. Discussed the plan of care with the resident and agree with the above assessment and plan but the resident
[2017-02-21] MEDS: Albuterol-Ipratrop 3 mg / 0.5 (3 ml) UD INH SCH ×3 (01:28→14:16)
[2017-02-21] MEDS: MethylPREDNISolone 40 mg Vial IVP SCH (05:45)
[2017-02-21 07:58] LABS: BASO % 0.1 % (0.0-2.0); HEMATOCRIT 36.1 % (35.0-51.0); LYMPH # 0.9 K/uL (1.0-4.3); LYMPH % 6.7 % (20.0-40.0); MEAN CELL VOLUME 94.9 fL (80.0-94.0); MEAN CORPUSCULAR HEMOGLOBIN 31.7 pg (27.0-31.0); MEAN CORPUSCULAR HGB CONC 33.4 g/dL (33.0-37.0); MONO # 0.4 K/uL (0.0-0.8); MONO % 3.5 % (0.0-10.0); PLATELET COUNT 222 K/uL (130-400); RED CELL DISTRIBUTION WIDTH 13.7 % (11.5-14.5); WHITE BLOOD COUNT 12.7 K/uL (4.8-10.8)
[2017-02-21] MEDS: Tiotropium 18 mcg Cap For Inhalation INH SCH (07:58)
[2017-02-21] MEDS: Fluticasone-Salmeterol 250-50mcg Diskus INH SCH (07:59)
[2017-02-21 08:03] LABS: CHLORIDE 96 mmol/L (98-107); SODIUM 138 mmol/L (132-148)
[2017-02-21 08:05] LABS: ALB/GLOB RATIO 1.2 (1.0-2.1); AST/SGOT 23 U/L (17-59); BILIRUBIN,TOTAL 0.1 mg/dL (0.2-1.3); CARBON DIOXIDE 31 mmol/L (22-30); GFR AFRICAN-AMERICAN > 60; TOTAL PROTEIN 5.3 g/dL (6.3-8.3)
[2017-02-21 08:06] LABS: ALKALINE PHOSPHATASE 52 U/L (38-126); ALT/SGPT 31 U/L (21-72); BLOOD UREA NITROGEN 16 mg/dL (9-20); CALCIUM 8.2 mg/dl (8.6-10.4); GLUCOSE,RANDOM 100 mg/dL (75-110); PHOSPHOROUS 3.9 mg/dL (2.5-4.5)
[2017-02-21 08:50] VITALS: O2SAT 95
[2017-02-21 09:22] LABS: MYELOCYTE 1 % (0-0); NEUTROPHIL 87 % (50-75); TOTAL CELLS COUNTED 100
[2017-02-21] MEDS: Moxifloxacin IV 400mg/250ml NS 250 ML IVPB SCH (09:56)
[2017-02-21] MEDS ORDERED: Diphenhydramine 1% Cream (1 oz) TOP SCH (11:15)
[2017-02-21] MEDS ORDERED: MethylPREDNISolone 40 mg Vial IVP SCH (15:00)
[2017-02-21 17:10] VITALS: BP 144/84; PULSE 85; TEMP 97.9
--- NOTE | 2017-02-21 20:07 | CARD ---
APPROVED REPORT EKG Measurement Heart [id number] <Conclusion> Normal sinus rhythm Right atrial enlargement Borderline ECG
--- NOTE | 2017-02-21 20:35 | CP.PCM.DIS ---
<Suman Torres - Last Filed: 02/24/17 19:53> Provider - Provider Date of Admission: 02/18/17 22:05 Attending physician: Phillip Dey MD Time Spent in preparation of Discharge (in minutes): 40 Hospital Course - Lab Results Lab Results: Most Recent Lab Values WBC 12.7 K/uL (4.8-10.8) H 02/21/17 07:47 RBC 3.80 Mil/uL (4.40-5.90) L 02/21/17 07:47 Hgb 12.0 g/dL (12.0-18.0) 02/21/17 07:47 Hct 36.1 % (35.0-51.0) 02/21/17 07:47 MCV 94.9 fL (80.0-94.0) H 02/21/17 07:47 MCH 31.7 pg (27.0-31.0) H 02/21/17 07:47 MCHC 33.4 g/dL (33.0-37.0) 02/21/17 07:47 RDW 13.7 % (11.5-14.5) 02/21/17 07:47 Plt Count 222 K/uL (130-400) 02/21/17 07:47 MPV 9.0 fL (7.2-11.7) 02/21/17 07:47 Neut % (Auto) 89.7 % (50.0-75.0) H 02/21/17 07:47 Lymph % (Auto) 6.7 % (20.0-40.0) L 02/21/17 07:47 [place] % (Auto) 3.5 % (0.0-10.0) 02/21/17 07:47 Eos % (Auto) 0.0 % (0.0-4.0) 02/21/17 07:47 Baso % (Auto) 0.1 % (0.0-2.0) 02/21/17 07:47 Neut # 11.4 K/uL (1.8-7.0) H 02/21/17 07:47 Lymph # 0.9 K/uL (1.0-4.3) L 02/21/17 07:47 [place] # 0.4 K/uL (0.0-0.8) 02/21/17 07:47 Eos # 0.0 K/uL (0.0-0.7) 02/21/17 07:47 Baso # 0.0 K/uL (0.0-0.2) 02/21/17 07:47 Neutrophils % (Manual) 87 % (50-75) H 02/21/17 07:47 Band Neutrophils % 1 % (0-2) 02/21/17 07:47 Lymphocytes % (Manual) 9 % (20-40) L 02/21/17 07:47 Monocytes % (Manual) 2 % (0-10) 02/21/17 07:47 Myelocytes % 1 % (0-0) H 02/21/17 07:47 Platelet Estimate Normal (NORMAL) 02/21/17 07:47 Large Platelets Present 02/19/17 06:56 RBC Morphology Normal 02/20/17 08:30 Hypochromasia (manual) Slight 02/19/17 06:56 Poikilocytosis (manual Slight 02/19/17 06:56 Anisocytosis (manual) Slight 02/19/17 06:56 Ovalocytes Slight 02/21/17 07:47 [place] Cells Slight 02/19/17 06:56 APTT 31 SECONDS (21-34) 02/18/17 06:02 D-Dimer, Quantitative < 200 ng/mlDDU (0-243) 02/18/17 06:02 Sodium 138 mmol/L (132-148) 02/21/17 07:47 Potassium 4.0 mmol/L (3.6-5.2) 02/21/17 07:47 Chloride 96 mmol/L (98-107) L 02/21/17 07:47 Carbon Dioxide 31 mmol/L (22-30) H 02/21/17 07:47 Anion Gap 15 (10-20) 02/21/17 07:47 BUN 16 mg/dL (9-20) 02/21/17 07:47 Creatinine 0.6 MG/DL (0.8-1.5) L 02/21/17 07:47 Est GFR ( Amer) > 60 02/21/17 07:47 Est GFR (Non-Af Amer) > 60 02/21/17 07:47 Random Glucose 100 mg/dL (75-110) 02/21/17 07:47 Calcium 8.2 mg/dl (8.6-10.4) L 02/21/17 07:47 Phosphorus 3.9 mg/dL (2.5-4.5) 02/21/17 07:47 Magnesium 2.0 mg/dL (1.6-2.3) 02/21/17 07:47 Total Bilirubin 0.1 mg/dL (0.2-1.3) L 02/21/17 07:47 AST 23 U/L (17-59) 02/21/17 07:47 ALT 31 U/L (21-72) 02/21/17 07:47 Alkaline Phosphatase 52 U/L (38-126) 02/21/17 07:47 Troponin I < 0.0120 ng/mL (0.00-0.120) 02/18/17 06:02 NT-Pro-B Natriuret Pep 165 pg/mL (0-900) 02/18/17 06:02 Total Protein 5.3 g/dL (6.3-8.3) L 02/21/17 07:47 Albumin 2.9 g/dL (3.5-5.0) L 02/21/17 07:47 Globulin 2.4 gm/dL (2.2-3.9) 02/21/17 07:47 Albumin/Globulin Ratio 1.2 (1.0-2.1) 02/21/17 07:47 Stool Occult Blood Negative (NEGATIVE) 02/18/17 13:46 - Hospital Course Hospital Course: Upon hospital admission: 56 year old Male with PMHx COPD, GI ulcer, Depression - was brought in by ALS due to SOB and productive cough x4 days. He was recently seen in the ED yesterday for similar complaints. He reports being outside to smoke a cigaret 2 nites ago, when he became severely SOB. He attempted to use his Incruz and Arnuity inhalers, but did not find relief this time (this spurred the ED visit). This morning, he became SOB while in the bathroom at his detention, felt he could not make it down the [place] to take his medicine, and had the detention call him an ambulance. His cough is productive of yellow/green sputum, and has not taken any additional medication besides his inhalers. Admits to diaphoresis, SOB, cough, and diarrhea. Denies f/c, H/A, change in vision, chest pain, abdominal pain, n/v, constipation, or any additional complaints. PMHx: COPD, GI ulcer, Depression, Alcohol abuse, Degenerative disk dz PSHx: tonsillectomy, appendectomy, removal of perianal cysts, GI surgery for perforated ulcer (pt unsure of what surgery) Meds: Duoneb 3mL INH RQ6, Mirtazapine 30mg PO HS, Zoloft 200mg PO, Arnuity ( inhaler), Incruz (inhaler) Allergies: NKDA FamHx: denies SocHx: resides at [facility] for the last 2 mo, works at the [employer]. Tobacco-1.5 ppd x45 yrs, EtOH- stopped 1.5 yrs ago, used to drink pint/ day. Drugs-denies. PMD: [place] (clinic) During hospital course, the patient was evaluated and treated for the following : (1) COPD Exacerbation for which the patient was tx with Duoneb 3mL INH RQ6, Solumedrol 40mg IVP Q8H, Advair diskus 250/50 RQ12, and Spriva 18mcg INH RQ24. Towards the end of his stay, he was switched from IV to PO steroids. (2) Leukocytosis with WBC 22.4; neutrophils 84% on admission. Patient also had + cough. Tx with Avelox 400mg IVPB Q12. (3) Depression tx with home meds: Mirtazapine 30mg PO HS and Zoloft 200mg PO daily. He denies suicidal ideations during his stay. (4) Spotting on Toilet paper for which rectal exam showed mild internal hemorrhoids. Stool occult test resulted negative. To follow up with PMD. Upon hospital discharge, the patient was provided with the following instructions: Patient is stable for discharge per Dr. Benson. Patient should resume all medications as outlined in this document. Additionally, patient should take the new medications listed below (scripts provided). 1. Please make an appointment and follow up with Primary Doctor within one week of discharge. If patient does not have a Primary Doctor, please follow up with [facility] to establish medical care, at [phone]. Patient should return to ED immediately if symptoms return or worsen. Instructions discussed with patient who understood and agreed. Newly prescribed medications: Albuterol HFA 90mcg 1puff IH Q4 #30days Advair diskus 250/50 1puff INH RQ12H #30days Ketoconoazole 2% Cr - apply TP daily #14days Spiriva 18mcg INH RQ24 #30days Levaquin 750mg PO Daily #4days Prednisone 10mg PO daily #20, Please follow taper below: Days 1-2: 40mg daily; Days 3-4: 30mg daily Days 5-6: 20mg daily; Days 7-8: 10mg daily. This is a summary of the patient's hospital admission, see chart for comprehensive detail. - Date & Time of H&P Date of H&P: 02/18/ Time of H&P: 09:21 Discharge Exam - Additional Findings Additional findings: - Constitutional Appears: Non-toxic, No Acute Distress - Head Exam Head Exam: ATRAUMATIC, NORMAL INSPECTION - Eye Exam Eye Exam: EOMI - ENT Exam ENT Exam: Mucous Membranes Moist - Neck Exam Neck exam: Positive for: Normal Inspection - Respiratory Exam Respiratory Exam: Clear to Auscultation Bilateral, NORMAL BREATHING PATTERN. absent: Wheezes - Cardiovascular Exam Cardiovascular Exam: REGULAR RHYTHM, +S1, +S2 - GI/Abdominal Exam GI & Abdominal Exam: Normal Bowel Sounds, Soft. absent: Tenderness - Rectal Exam Rectal Exam: Hemorrhoids (mild, internal) - Extremities Exam Extremities exam: Positive for: normal inspection. Negative for: pedal edema, tenderness - Back Exam Back exam: NORMAL INSPECTION - Neurological Exam Neurological exam: Alert, CN II-XII Intact, Oriented x3 - Psychiatric Exam Psychiatric exam: Normal Affect, Normal Mood - Skin Skin Exam: Dry, Intact, Normal Color, Warm Discharge Plan - Discharge Medications Prescriptions: Albuterol HFA [Ventolin HFA 90 mcg/actuation (8 g)] 1 puff IH Q4 #1 inhaler Fluticasone/Salmeterol 250/50 [Advair Diskus 250/50] 1 puff INH RQ12 30 Days Ketoconazole 2% Cr [Nizoral] 1 appl TP DAILY 14 Days Tiotropium [Spiriva] 18 mcg INH RQ24 30 Days Tiotropium Friendship Inhaler [Spiriva Inhalation Handihaler Device] 1 inhaler INH ONCE 30 Days levoFLOXacin [Levaquin] 750 mg PO DAILY 4 Days predniSONE [predniSONE Tab] 10 mg PO DAILY #20 tab - Follow Up Plan Condition: STABLE Disposition: HOME/ ROUTINE Instructions: Albuterol (By breathing), Ketoconazole (By mouth), Levofloxacin ( By mouth), Fluticasone/Salmeterol (By breathing), Tiotropium (By breathing), COPD (Chronic Obstructive Pulmonary Disease) (DC) Additional Instructions: Patient is stable for discharge per Dr. Benson. Patient should resume all medications as outlined in this document. Additionally, patient should take the new medications listed below (scripts provided). 1. Please make an appointment and follow up with Primary Doctor within one week of discharge. If patient does not have a Primary Doctor, please follow up with [facility] to establish medical care, at [phone]. Patient should return to ED immediately if symptoms return or worsen. Instructions discussed with patient who understood and agreed. Newly prescribed medications: Albuterol HFA 90mcg 1puff IH Q4 #30days Advair diskus 250/50 1puff INH RQ12H #30days Ketoconoazole 2% Cr - apply TP daily #14days Spiriva 18mcg INH RQ24 #30days Levaquin 750mg PO Daily #4days Prednisone 10mg PO daily #20, Please follow taper below: Days 1-2: 40mg daily; Days 3-4: 30mg daily Days 5-6: 20mg daily; Days 7-8: 10mg daily. Referrals: Mili Dawson MD [Staff Provider] - <Bakari Benson - Last Filed: 02/28/17 14:43> Provider - Provider Date of Admission: 02/18/17 22:05 Attending physician: Phillip Dey MD Hospital Course - Lab Results Lab Results: Most Recent Lab Values WBC 12.7 K/uL (4.8-10.8) H 02/21/17 07:47 RBC 3.80 Mil/uL (4.40-5.90) L 02/21/17 07:47 Hgb 12.0 g/dL (12.0-18.0) 02/21/17 07:47 Hct 36.1 % (35.0-51.0) 02/21/17 07:47 MCV 94.9 fL (80.0-94.0) H 02/21/17 07:47 MCH 31.7 pg (27.0-31.0) H 02/21/17 07:47 MCHC 33.4 g/dL (33.0-37.0) 02/21/17 07:47 RDW 13.7 % (11.5-14.5) 02/21/17 07:47 Plt Count 222 K/uL (130-400) 02/21/17 07:47 MPV 9.0 fL (7.2-11.7) 02/21/17 07:47 Neut % (Auto) 89.7 % (50.0-75.0) H 02/21/17 07:47 Lymph % (Auto) 6.7 % (20.0-40.0) L 02/21/17 07:47 [place] % (Auto) 3.5 % (0.0-10.0) 02/21/17 07:47 Eos % (Auto) 0.0 % (0.0-4.0) 02/21/17 07:47 Baso % (Auto) 0.1 % (0.0-2.0) 02/21/17 07:47 Neut # 11.4 K/uL (1.8-7.0) H 02/21/17 07:47 Lymph # 0.9 K/uL (1.0-4.3) L 02/21/17 07:47 [place] # 0.4 K/uL (0.0-0.8) 02/21/17 07:47 Eos # 0.0 K/uL (0.0-0.7) 02/21/17 07:47 Baso # 0.0 K/uL (0.0-0.2) 02/21/17 07:47 Neutrophils % (Manual) 87 % (50-75) H 02/21/17 07:47 Band Neutrophils % 1 % (0-2) 02/21/17 07:47 Lymphocytes % (Manual) 9 % (20-40) L 02/21/17 07:47 Monocytes % (Manual) 2 % (0-10) 02/21/17 07:47 Myelocytes % 1 % (0-0) H 02/21/17 07:47 Platelet Estimate Normal (NORMAL) 02/21/17 07:47 Large Platelets Present 02/19/17 06:56 RBC Morphology Normal 02/20/17 08:30 Hypochromasia (manual) Slight 02/19/17 06:56 Poikilocytosis (manual Slight 02/19/17 06:56 Anisocytosis (manual) Slight 02/19/17 06:56 Ovalocytes Slight 02/21/17 07:47 [place] Cells Slight 02/19/17 06:56 APTT 31 SECONDS (21-34) 02/18/17 06:02 D-Dimer, Quantitative < 200 ng/mlDDU (0-243) 02/18/17 06:02 Sodium 138 mmol/L (132-148) 02/21/17 07:47 Potassium 4.0 mmol/L (3.6-5.2) 02/21/17 07:47 Chloride 96 mmol/L (98-107) L 02/21/17 07:47 Carbon Dioxide 31 mmol/L (22-30) H 02/21/17 07:47 Anion Gap 15 (10-20) 02/21/17 07:47 BUN 16 mg/dL (9-20) 02/21/17 07:47 Creatinine 0.6 MG/DL (0.8-1.5) L 02/21/17 07:47 Est GFR ( Amer) > 60 02/21/17 07:47 Est GFR (Non-Af Amer) > 60 02/21/17 07:47 Random Glucose 100 mg/dL (75-110) 02/21/17 07:47 Calcium 8.2 mg/dl (8.6-10.4) L 02/21/17 07:47 Phosphorus 3.9 mg/dL (2.5-4.5) 02/21/17 07:47 Magnesium 2.0 mg/dL (1.6-2.3) 02/21/17 07:47 Total Bilirubin 0.1 mg/dL (0.2-1.3) L 02/21/17 07:47 AST 23 U/L (17-59) 02/21/17 07:47 ALT 31 U/L (21-72) 02/21/17 07:47 Alkaline Phosphatase 52 U/L (38-126) 02/21/17 07:47 Troponin I < 0.0120 ng/mL (0.00-0.120) 02/18/17 06:02 NT-Pro-B Natriuret Pep 165 pg/mL (0-900) 02/18/17 06:02 Total Protein 5.3 g/dL (6.3-8.3) L 02/21/17 07:47 Albumin 2.9 g/dL (3.5-5.0) L 02/21/17 07:47 Globulin 2.4 gm/dL (2.2-3.9) 02/21/17 07:47 Albumin/Globulin Ratio 1.2 (1.0-2.1) 02/21/17 07:47 Stool Occult Blood Negative (NEGATIVE) 02/18/17 13:46 Attending/Attestation - Attestation I have personally seen and examined this patient.: Yes I have fully participated in the care of the patient.: Yes I have reviewed all pertinent clinical information, including history, physical exam and plan: Yes Notes (Text): 02/28/17 14:42 Patient was seen and examined at bedside with the resident Patient is feeling much better today We will discharge the patient on oral steroid taper and on oral antibiotics Discharge plan discussed with the patient and he verbalized understanding I agree with the above discharge note by the resident.
== END 2017-02-21 17:20 | disposition home or self-care (01) | DRG 88 ==
LOC: C.ER 05:12 → C.3T 06:31 → OBSVTOIN 22:05 → C.3T 02-19 09:09
PROVIDERS: ADMIT Internal Medicine; ATTEND Internal Medicine
DX: J44.1 Chronic obstructive pulmonary disease with (acute) exacerbation (principal); F32.9 Major depressive disorder, single episode, unspecified; R06.02 Shortness of breath; D72.829 Elevated white blood cell count, unspecified; F10.21 Alcohol dependence, in remission; K64.8 Other hemorrhoids; Z87.11 Personal history of peptic ulcer disease

== ENCOUNTER 2017-03-12 15:14 | Inpatient (IN) | payer OTHER, SELFPAY ==
[2017-03-12 15:14] VITALS: BMI 21.1
[2017-03-12] MEDS ORDERED: Albuterol-Ipratrop 3 mg / 0.5 (3 ml) UD INH STA ×2 (15:45)
[2017-03-12] MEDS ORDERED: Albuterol-Ipratrop 3 mg / 0.5 (3 ml) UD ONE (16:06)
--- NOTE | 2017-03-12 16:16 | RAD ---
HISTORY: SOB COMPARISON: Chest x-ray performed 02/18/17 TECHNIQUE: Chest, one view. FINDINGS: LUNGS: Flattening of the hemidiaphragm compatible with hyperinflation which may be seen in the setting of COPD. No focal consolidation. Please note that chest x-ray has limited sensitivity for the detection of pulmonary masses. PLEURA: Blunting of the costophrenic angles compatible with pleural thickening or small pleural effusions. No definite pneumothorax . CARDIOVASCULAR: Heart size appears within normal limits. OSSEOUS STRUCTURES: No acute osseous abnormality identified. VISUALIZED UPPER ABDOMEN: Unremarkable. OTHER FINDINGS: None. IMPRESSION: Hyperinflation may be seen in the setting of COPD. Blunting of the costophrenic angles compatible with pleural thickening or small pleural effusions.
[2017-03-12 16:24] LABS: BASO # 0.1 K/uL (0.0-0.2); BASO % 0.5 % (0.0-2.0); EOS # 0.1 K/uL (0.0-0.7); EOS % 0.5 % (0.0-4.0); HEMATOCRIT 40.5 % (35.0-51.0); LYMPH # 1.1 K/uL (1.0-4.3); LYMPH % 7.9 % (20.0-40.0); MEAN CELL VOLUME 95.3 fL (80.0-94.0); MEAN CORPUSCULAR HEMOGLOBIN 31.8 pg (27.0-31.0); MEAN CORPUSCULAR HGB CONC 33.4 g/dL (33.0-37.0); MEAN PLATELET VOLUME 8.1 fL (7.2-11.7); MONO # 0.6 K/uL (0.0-0.8); MONO % 3.8 % (0.0-10.0); PLATELET COUNT 251 K/uL (130-400); RED CELL DISTRIBUTION WIDTH 14.4 % (11.5-14.5); WHITE BLOOD COUNT 14.4 K/uL (4.8-10.8)
[2017-03-12 16:32] LABS: INR 1.1
[2017-03-12 16:38] LABS: CHLORIDE 97 mmol/L (98-107); SODIUM 136 mmol/L (132-148)
[2017-03-12 16:39] LABS: POTASSIUM 4.4 mmol/L (3.6-5.2)
--- NOTE | 2017-03-12 16:39 | C.PDOC ---
History Of Present Illness 57 year old male with a PMHx of COPD brought in by EMS for SOB and wheezing. Patient states he has had a productive cough (clear sputum) that has worsened in the past 3 days. Patient was given 2 duoneb and IV solumedrol in the field- with minimal improvement on ED arrival. He denies chest pain or fever, abdominal pain, nausea/vomiting/diarrhea. Time Seen by Provider: 03/12/17 15:39 Chief Complaint (Nursing): Shortness Of Breath History Per: Patient, EMS History/Exam Limitations: no limitations Onset/Duration Of Symptoms: Days (3, non-productive cough) Current Symptoms Are (Timing): Still Present Current Respiratory Medications: See Home Med List Severity: Moderate Associated Symptoms: denies: Fever, Chest Pain Past Medical History Reviewed: Historical Data, Nursing Documentation, Vital Signs Vital Signs: Last Vital Signs Temp 98.8 F 03/17/17 17:37 Pulse 86 03/17/17 17:37 Resp 20 03/17/17 17:37 BP 124/69 03/17/17 17:37 Pulse Ox 96 03/17/17 17:37 - Medical History PMH: Anxiety, COPD, Depression, Gastrointestinal Ulcer Surgical History: Appendectomy, Tonsillectomy - [facility] Procedures CONTR ABD ARTERIOGRM NEC (05/20/07) DETOXIFICATION SERVICES FOR SUBSTANCE ABUSE TREATMENT (01/14/17) ESOPHAGOGASTRODUODENOSCOPY [EGD] W/CLOSED BIOPSY (05/20/07) GROUP DYNAMOTOR REPAIRER FOR SUBSTANCE ABUSE TREATMENT, PSYCHOEDUCATION (01/14/17) GROUP DYNAMOTOR REPAIRER FOR SUBSTANCE ABUSE, COGNITIVE BEHAVIORAL (01/14/17) GROUP PSYCHOTHERAPY (11/21/16) INDIV DYNAMOTOR REPAIRER FOR SUBSTANCE ABUSE TREATMENT, PSYCHOEDUCATION (01/14/17) INDIV DYNAMOTOR REPAIRER FOR SUBSTANCE ABUSE, COGNITIVE BEHAVIORAL (01/14/17) INDIV PSYCHOTHERAPY FOR SUBSTANCE ABUSE TREATMENT, SUPPORT (01/14/17) INJECT/INFUSE NEC (03/20/12) Family History: States: No Known Family Hx - Social History Hx Tobacco Use: Yes Hx Alcohol Use: Yes (occasional) Hx Substance Use: No - Immunization History Hx Tetanus Toxoid Vaccination: Yes Hx Influenza Vaccination: Yes Hx Pneumococcal Vaccination: Yes Review Of Systems Except As Marked, All Systems Reviewed And Found Negative. Constitutional: Negative for: Fever, Chills Cardiovascular: Negative for: Chest Pain, Palpitations Respiratory: Positive for: Cough (non-productive cough), Shortness of Breath, Wheezing Gastrointestinal: Negative for: Nausea, Vomiting, Abdominal Pain, Diarrhea Physical Exam - Physical Exam Appears: Non-toxic, Other (Mild uncomfortable) Skin: Normal Color, Warm, Dry, No Rash Head: Normacephalic Oral Mucosa: Moist Chest: Symmetrical, No Tenderness Cardiovascular: Rhythm Regular (Tachycardic) Respiratory: No Accessory Muscle Use, No Rales, No Rhonchi, Wheezing (Diffuse expiratory wheezing bilaterally) Gastrointestinal/Abdominal: Normal Exam, Bowel Sounds, Soft, No Tenderness Extremity: Normal ROM, No Pedal Edema, No Calf Tenderness Pulses: Left Dorsalis Pedis: Normal, Right Dorsalis Pedis: Normal Neurological/Psych: Oriented x3 ED Course And Treatment - Laboratory Results Result Diagrams: 03/17/17 06:06 03/17/17 06:06 ECG: Interpreted By Me, Viewed By Me (sinus tachycardia 107 bpm, normal axis, no acute ST/T wave changes) ECG Interpretation: No Acute Changes O2 Sat by Pulse Oximetry: 99 (Room air) Pulse Ox Interpretation: Normal - Radiology CXR: Interpreted by Me, Viewed By Me (no infiltrates, ? B/L small effusions) Progress Note: Blood work, EKG, CXR ordered and reviewed. Patient given duoneb treatments and IV Avelox (for COPD exacerbation). - Physician Consult Information Physician Contacted: Spencer Clay Outcome Of Conversation: Discussed patient with Dr. Clay, he agrees with admission for COPD exacerbation, dyspnea, depression. Psych consult entered. Medical Decision Making Medical Decision Making: differential diagnoses considered: copd/asthma exacetion, chf, ID/ACS, pneumonia , bronchitis, PE Disposition - Disposition Disposition: HOSPITALIZED Disposition Time: 17:55 Condition: STABLE - Clinical Impression Clinical Impression: COPD exacerbation, Dyspnea, Depression - Scribe Statement The provider has reviewed the documentation as recorded by the Scribkeri Gamboa All medical record entries made by the Scribe were at my direction and personally dictated by me. I have reviewed the chart and agree that the record accurately reflects my personal performance of the history, physical exam, medical decision making, and the department course for this patient. I have also personally directed, reviewed, and agree with the discharge instructions and disposition. Decision To Admit - Pt Status Changed To: Hospital Disposition Of: Inpatient - Admit Certification Admit to Inpatient:: After my assessment, the patient will require hospitalization for at least two midnights. This is because of the severity of symptoms shown, intensity of services needed, and/or the medical risk in this patient being treated as an outpatient. - InPatient: Physician Admission Certification: I certify that this patient requires 2 or more midnights of care for the following reason:: see notes - . Bed Request Type: Telemetry Admitting Physician: Spencer Clay Patient Diagnosis: COPD exacerbation, Dyspnea, Depression
[2017-03-12 16:41] LABS: ALB/GLOB RATIO 1.4 (1.0-2.1); ALKALINE PHOSPHATASE 74 U/L (38-126); ALT/SGPT 18 U/L (21-72); AST/SGOT 21 U/L (17-59); BILIRUBIN,TOTAL 0.3 mg/dL (0.2-1.3); BLOOD UREA NITROGEN 14 mg/dL (9-20); CARBON DIOXIDE 30 mmol/L (22-30); GFR AFRICAN-AMERICAN > 60; GLUCOSE,RANDOM 122 mg/dL (75-110); TOTAL PROTEIN 6.3 g/dL (6.3-8.3)
[2017-03-12 16:42] LABS: CALCIUM 8.3 mg/dl (8.6-10.4)
[2017-03-12] MEDS ORDERED: Albuterol 0.083% Inhal Sol (2.5 mg/3 mL) UD IH STA (17:26)
[2017-03-12] MEDS ORDERED: Albuterol 0.083% Inhal Sol (2.5 mg/3 mL) UD ONE (17:32)
[2017-03-12] MEDS ORDERED: Moxifloxacin IV 400mg/250ml NS 250 ML IV ONE (17:54)
[2017-03-12] MEDS ORDERED: Albuterol-Ipratrop 3 mg / 0.5 (3 ml) UD INH PRN (17:57)
[2017-03-12] MEDS ORDERED: Piperacill/Tazo 3.375gm in Dex 50 ML IVPB SCH (18:15)
[2017-03-12] MEDS ORDERED: Piperacillin/Tazobact 3.375 GM in Sodium Chloride 0.9% 100 ML IVPB SCH (18:15)
[2017-03-12 18:22] LABS: EOSINOPHIL 2 % (0-4); NEUTROPHIL 81 % (50-75); TOTAL CELLS COUNTED 100
[2017-03-12] MEDS ORDERED: Moxifloxacin IV 400mg/250ml NS 250 ML IVPB ONE (18:41)
[2017-03-12] MEDS ORDERED: Vancomycin 1 gm/NS 200 ml 200 ML IVPB SCH (19:00)
--- NOTE | 2017-03-12 19:29 | CP.PCM.HP ---
Past Patient History - Infectious Disease Hx of Infectious Diseases: None - Past Medical History & Family History Past Medical History?: Yes - Past Social History Smoking Status: Heavy Smoker > 10 Cigarettes Daily - CARDIAC Hx Hypertension: No - PULMONARY Hx Chronic Obstructive Pulmonary Disease (COPD): Yes - NEUROLOGICAL Hx Seizures: No - HEENT Hx HEENT Problems: No - RENAL Hx Chronic Kidney Disease: No - ENDOCRINE/METABOLIC Hx Endocrine Disorders: No - HEMATOLOGICAL/ONCOLOGICAL Hx Human Immunodeficiency Virus (HIV): No - INTEGUMENTARY Hx Dermatological Problems: No - MUSCULOSKELETAL/RHEUMATOLOGICAL Hx Musculoskeletal Disorders: No Hx Falls: No - GASTROINTESTINAL Hx Gastroesophageal Reflux: Yes Hx Ulcer: Yes - GENITOURINARY/GYNECOLOGICAL Hx Sexually Transmitted Disorders: No - PSYCHIATRIC Hx Anxiety: Yes Hx Depression: Yes Hx Substance Use: No - SURGICAL HISTORY Hx Appendectomy: Yes Hx Tonsillectomy: Yes - ANESTHESIA Hx Anesthesia: Yes Hx Anesthesia Reactions: No Meds Allergies/Adverse Reactions: Allergies Allergy/AdvReac Type Severity Reaction Status Date / Time No Known Allergies Allergy Verified 03/12/17 15:22 Results - Vital Signs Recent Vital Signs: Last Vital Signs Temp 98 F 03/12/17 15:18 Pulse 103 H 03/12/17 15:50 Resp 20 03/12/17 16:19 BP 179/95 H 03/12/17 15:18 Pulse Ox 99 03/12/17 18:34 - Labs Result Diagrams: 03/12/17 16:17 03/12/17 16:17
[2017-03-12] MEDS ORDERED: Fluticasone-Salmeterol 250-50mcg Diskus INH SCH (20:00)
[2017-03-12] MEDS ORDERED: Albuterol HFA 90 mcg/actuation (8 g) IH PRN (20:00)
[2017-03-12] MEDS: Moxifloxacin IV 400mg/250ml NS 250 ML IVPB SCH (20:18)
[2017-03-12] MEDS ORDERED: Piperacillin/Tazobact 3.375 gm 100 ML IVPB ONE (20:22)
[2017-03-12] MEDS: Albuterol-Ipratrop 3 mg / 0.5 (3 ml) UD INH SCH (21:28)
[2017-03-12] MEDS: Fluticasone-Salmeterol 250-50mcg Diskus INH SCH (22:24)
[2017-03-12] MEDS ORDERED: MethylPREDNISolone 40 mg Vial ONE (22:26)
[2017-03-12] MEDS: MethylPREDNISolone 40 mg Vial IVP SCH (22:28)
[2017-03-13] MEDS: MethylPREDNISolone 40 mg Vial IVP SCH ×3 (07:08→21:26)
[2017-03-13] MEDS: Albuterol-Ipratrop 3 mg / 0.5 (3 ml) UD INH SCH ×3 (07:47→19:00)
[2017-03-13] MEDS ORDERED: Tiotropium 18 mcg Cap For Inhalation INH SCH (08:00)
[2017-03-13] MEDS ORDERED: Enoxaparin 40 mg Syringe SC SCH (10:00)
[2017-03-13] MEDS: Fluticasone-Salmeterol 250-50mcg Diskus INH SCH ×2 (10:41→22:26)
[2017-03-13] MEDS: Enoxaparin 40 mg Syringe SC SCH (10:53)
[2017-03-13] MEDS: Pantoprazole 40 mg EC Tab PO SCH (10:53)
--- NOTE | 2017-03-13 11:44 | CARD ---
APPROVED REPORT EKG Measurement Heart [id number] <Conclusion> Sinus tachycardia Right atrial enlargement Abnormal ECG
--- NOTE | 2017-03-13 13:39 | CP.PCM.HP ---
<Dario Ding - Last Filed: 03/13/17 15:18> History of Present Illness - History of Present Illness History of Present Illness: CC: cough, short of breath HPI: Patient is a 57 year old male with a history of COPD, smoking history, depression, and etoh abuse. He came here last night due to shortness of breath and a persistent non productive cough. He is also complaining of left sided rib pain from coughing so much. He was seen in the clinic last week and says he has been taking his medication as prescribed. But that he has been short of breath the past few days with worsening cough, it is worse on exertion. He has tried his albuterol inhaler with no relief. He is also complaining of some depressed mood with some suicidal ideation with no plans for the past 3-4 days. He also reports having very black stools for the past week and 3 episodes of diarrhea. PMHx: COPD, GI ulcer, Depression, Alcohol abuse, Degenerative disk dz PSHx: tonsillectomy, appendectomy, removal of perianal cysts, GI surgery for perforated ulcer (pt unsure of what surgery) Meds: Duoneb 3mL INH RQ6, HS, Zoloft 200mg PO, Arnuity (inhaler), Incruz ( inhaler) Allergies: NKDA FamHx: denies SocHx: resides at [facility] for the last 2 mo, works at the [employer]. Tobacco-1.5 ppd x45 yrs, EtOH- stopped 1.5 yrs ago, used to drink pint/ day. Drugs-denies. Present on Admission - Present on Admission Any Indicators Present on Admission: No History of DVT/PE: No History of Uncontrolled Diabetes: No Urinary Catheter: No Review of Systems - Review of Systems All systems: reviewed and no additional remarkable complaints except - Constitutional Constitutional: absent: Chills, Fever - EENT Eyes: absent: Change in Vision Ears: absent: Dizziness - Cardiovascular Cardiovascular: absent: Chest Pain, Palpitations Additional comments: rib pain - Respiratory Respiratory: Cough, Dyspnea, Dyspnea on Exertion - Gastrointestinal Gastrointestinal: Diarrhea. absent: Abdominal Pain, Constipation, Nausea, Vomiting Additional comments: black stool stool for the past week - Genitourinary Genitourinary: absent: Dysuria - Musculoskeletal Musculoskeletal: absent: Numbness, Stiffness - Neurological Neurological: absent: Headaches, Weakness - Psychiatric Psychiatric: Anxiety, Depression, Hopelessness, Suicidal Ideation. absent: Homicidal Ideation - Endocrine Endocrine: absent: Fatigue, Palpitations Past Patient History - Infectious Disease Hx of Infectious Diseases: None - Past Medical History & Family History Past Medical History?: Yes - Past Social History Smoking Status: Heavy Smoker > 10 Cigarettes Daily - CARDIAC Hx Hypertension: No - PULMONARY Hx Chronic Obstructive Pulmonary Disease (COPD): Yes - NEUROLOGICAL Hx Seizures: No - HEENT Hx HEENT Problems: No - RENAL Hx Chronic Kidney Disease: No - ENDOCRINE/METABOLIC Hx Endocrine Disorders: No - HEMATOLOGICAL/ONCOLOGICAL Hx Human Immunodeficiency Virus (HIV): No - INTEGUMENTARY Hx Dermatological Problems: No - MUSCULOSKELETAL/RHEUMATOLOGICAL Hx Musculoskeletal Disorders: No Hx Falls: No - GASTROINTESTINAL Hx Gastroesophageal Reflux: Yes Hx Ulcer: Yes - GENITOURINARY/GYNECOLOGICAL Hx Sexually Transmitted Disorders: No - PSYCHIATRIC Hx Anxiety: Yes Hx Depression: Yes Hx Substance Use: No - SURGICAL HISTORY Hx Appendectomy: Yes Hx Tonsillectomy: Yes - ANESTHESIA Hx Anesthesia: Yes Hx Anesthesia Reactions: No Meds Allergies/Adverse Reactions: Allergies Allergy/AdvReac Type Severity Reaction Status Date / Time No Known Allergies Allergy Verified 03/12/17 15:22 Physical Exam - Constitutional Appears: Non-toxic, No Acute Distress - Head Exam Head Exam: NORMAL INSPECTION - Eye Exam Eye Exam: Normal appearance Pupil Exam: NORMAL ACCOMODATION - Respiratory Exam Respiratory Exam: Decreased Breath Sounds, Rhonchi, Wheezes. absent: Clear to Auscultation Bilateral, Rales - Cardiovascular Exam Cardiovascular Exam: Tachycardia, REGULAR RHYTHM, RRR, +S1, +S2. absent: Gallop , Rubs - GI/Abdominal Exam GI & Abdominal Exam: Normal Bowel Sounds. absent: Soft, Tenderness - Extremities Exam Extremities exam: Negative for: pedal edema - Back Exam Back exam: NORMAL INSPECTION - Neurological Exam Neurological exam: Alert, Oriented x3 - Psychiatric Exam Psychiatric exam: Normal Affect, Normal Mood - Skin Skin Exam: Normal Color, Warm Results - Vital Signs Recent Vital Signs: Last Vital Signs Temp 98.6 F 03/13/17 08:15 Pulse 97 H 03/13/17 08:15 Resp 18 03/13/17 08:15 BP 137/74 03/13/17 08:15 Pulse Ox 95 03/13/17 08:15 - Labs Result Diagrams: 03/12/17 16:17 03/12/17 16:17 Labs: Laboratory Results - last 24 hr 03/12/17 19:51 POC Glucose (mg/dL) 303 H Assessment & Plan (1) COPD exacerbation Assessment and Plan: Patient admitted to tele/inpatient. Dr. Veloz is consulted for pulm. Patient on Duoneb 3ml q6h, Advair 250/50, Singular 10mg HS, 40mg Solumedrol IVP Q8H, Spirivia 18mcg INH daily. CXR from ED last night shows lung hyperinflation consistent with obstructive lung disease, see emr for full report. His random blood sugar is over 300, most likely from recent steroid use, but will order hemoglobin A1C. Avelox 400mg IV day 2 Status: Acute (2) Depression with suicidal ideation Assessment and Plan: Dr. Heredia Psych consult, help appreciated 1:1 obs for now continue his remeron and Zoloft. Was admitted to [facility] last January as well. Status: Acute (3) Black stool Assessment and Plan: Patient is not anemic, (hbg is 13.5). have ordered stool occult blood x3 daily. Scheduled to have outpatient colonoscopy next month. With the heavy etoh use history he may an upper vs lower GI bleed. Status: Acute (4) Tobacco use disorder Assessment and Plan: Patient has a 90 pack year history of smoking. Patient is down to a pack a day smoking which he used to smoke 2 packs a day, started Nicoderm patch. Status: Chronic (5) Prophylactic measure Assessment and Plan: Lovenox 40mg SC Protonix 40mg PO SCDs Status: Acute <Suman Rojas H - Last Filed: 03/14/17 13:25> Results - Vital Signs Recent Vital Signs: Last Vital Signs Temp 98.4 F 03/14/17 07:20 Pulse 80 03/14/17 07:20 Resp 20 03/14/17 07:20 BP 132/81 03/14/17 07:20 Pulse Ox 95 03/14/17 07:20 - Labs Result Diagrams: 03/14/17 07:04 03/14/17 07:04 Labs: Laboratory Results - last 24 hr 03/13/17 03/14/17 03/14/17 16:50 06:36 07:04 WBC 19.0 H 16.4 H RBC 3.90 L 3.93 L Hgb 12.3 12.3 Hct 36.9 37.3 MCV 94.6 H 94.9 H MCH 31.6 H 31.3 H MCHC 33.5 33.0 RDW 14.5 14.7 H Plt Count 201 201 MPV 8.6 8.7 Neut % (Auto) 93.9 H 90.2 H Lymph % (Auto) 3.5 L 7.0 L Boyle % (Auto) 2.1 2.8 Eos % (Auto) 0.0 0.0 Baso % (Auto) 0.5 0.0 Neut # 17.9 H 14.8 H Lymph # 0.7 L 1.1 Boyle # 0.4 0.5 Eos # 0.0 0.0 Baso # 0.1 0.0 Neutrophils % (Manual) 86 H 93 H Band Neutrophils % 5 H Lymphocytes % (Manual) 4 L 6 L Monocytes % (Manual) 5 1 Platelet Estimate Normal Normal Large Platelets Present RBC Morphology Normal Hypochromasia (manual) Slight Microcytosis (manual) Slight Ovalocytes Slight Sodium 134 139 Potassium 4.3 4.0 Chloride 99 100 Carbon Dioxide 24 26 Anion Gap 15 17 BUN 14 14 Creatinine 0.7 L 0.7 L Est GFR ( Amer) > 60 > 60 Est GFR (Non-Af Amer) > 60 > 60 POC Glucose (mg/dL) 103 Random Glucose 127 H 128 H Hemoglobin A1c 6.0 Calcium 8.2 L 8.3 L Phosphorus 4.1 3.9 Magnesium 1.9 2.0 Total Bilirubin 0.1 L 0.2 AST 19 22 ALT 28 17 L D Alkaline Phosphatase 59 59 Total Protein 6.0 L 5.8 L Albumin 3.3 L 3.3 L Globulin 2.6 2.5 Albumin/Globulin Ratio 1.3 1.3 Free T4 TSH 3rd Generation Stool Occult Blood 03/14/17 03/14/17 03/14/17 07:51 11:42 11:48 WBC RBC Hgb Hct MCV MCH MCHC RDW Plt Count MPV Neut % (Auto) Lymph % (Auto) Boyle % (Auto) Eos % (Auto) Baso % (Auto) Neut # Lymph # Boyle # Eos # Baso # Neutrophils % (Manual) Band Neutrophils % Lymphocytes % (Manual) Monocytes % (Manual) Platelet Estimate Large Platelets RBC Morphology Hypochromasia (manual) Microcytosis (manual) Ovalocytes Sodium Potassium Chloride Carbon Dioxide Anion Gap BUN Creatinine Est GFR ( Amer) Est GFR (Non-Af Amer) POC Glucose (mg/dL) 133 H Random Glucose Hemoglobin A1c Calcium Phosphorus Magnesium Total Bilirubin AST ALT Alkaline Phosphatase Total Protein Albumin Globulin Albumin/Globulin Ratio Free T4 1.14 TSH 3rd Generation 0.32 L Stool Occult Blood Negative Attending/Attestation - Attestation I have personally seen and examined this patient.: Yes I have fully participated in the care of the patient.: Yes I have reviewed all pertinent clinical information: Yes Notes (Text): Medical attending: Patient was seen and examined by me, agree with the above note by biomedical engineering technician. The patient has a very extensive history of smoking and he explains to me that he still does smoke. The chest x-ray shows that he has a lot of hyperinflation which appears to be related to his emphysema/COPD. Explain to me that he's feeling somewhat better since coming and receiving treatments. Currently he is on Solu-Medrol 40 3 times a day, duo nebulizers, Advair, Singulair. CAT of the lung scan is pending at this time The patient does have elevated white blood cell count, and was started on antibiotics. These elevated white blood cell count may be from the steroids the patient is receiving however we should continue to monitor the cultures and if he has a fever. Continue abx for the time being. For now continue the to thank you Suman Rojas
--- NOTE | 2017-03-13 14:26 | PCM.PSYCH ---
Initial Psychiatric Evaluation - Initial Psychiatric Evaluation Type of Admission: Voluntary Legal Status: Capacity Chief Complaint (in patient's own words): "I'm feeling useless" Patient's Reaction to Hospitalization: Positive History of Present Illness and Precipitating Events: Pt is seen, chart reviewed, case discussed. Pt is a 57 year old male. Pt states he was adopted, both parents are and has no brothers or sisters. Pt is and does not have children. Pt is homeless and lives in shelters. 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 Pt reports that he came into the hospital because of SOB and feeling depressed with suicidal ideation. Pt states that he heard voices that told him it is not worth living about 3 days ago. Pt had suicidal thoughts , but denies having those thoughts today. Pt denies hurting others today as well. Pt denies visual or auditory hallucinations today. Patient current mood is low. Pt reports feeling of helplessness and states that he feels useless. Pt reports that he started drinking alcohol at 10 years old. Pt admits to drinking one and a half pint of vodka with a 25 ounce bottle of beer a day. The last time pt drank alcohol was 2 months ago. Pt denies using drugs currently. Pt admits to smoking marijuana in the past. Pt smokes one and a half packs of cigarettes every day. Pt has been to detox and rehab multiple times. Pt has also been hospitalized in the past multiple times for ETOH abuse and depression. The last time patient saw a psychiatrist was [address] [facility] for depression. Pt does not remember the outcome of the visit or if medication was prescribed. Pt complains of SOB, neck pain and coughing. Patient admits to anxiety and depression. Pt states he is a "bundle of nerves" and is worried about everything. Patient admits to being paranoid. Pt fears that people are taking advantage of him. Pt admits to having racing thoughts. Pt is not sure about his plan upon discharge. He desires to go back to work and is unsure about rehab. Past Psychiatric History: Depression Past Family Psychiatric History: Denies Past Substance Abuse History: Alcohol abuse Past Family Substance Abuse: Father-alcohol Past Medical History: COPD, GI ulcer, Arthritis, Degenerative disc disease Current Medications: Active Medications Generic Name Dose Route Start Last Admin Trade Name Freq PRN Reason Stop Dose Admin Albuterol/Ipratropium 3 ml 03/12/17 17:57 Duoneb 3 Mg/0.5 Mg (3 Ml) Ud INH RQ2 PRN wheezing, sob Albuterol/Ipratropium 3 ml 03/12/17 20:00 03/13/17 13:19 Duoneb 3 Mg/0.5 Mg (3 Ml) Ud INH 3 ml RQ6 FERNANDA Administration Enoxaparin Sodium 40 mg 03/13/17 10:00 03/13/17 10:53 Lovenox SC 40 mg DAILY FERNANDA Administration Moxifloxacin HCl 250 mls @ 167 mls/hr 03/12/17 19:30 03/12/17 20:18 Avelox Iv 400mg/250ml Ns IVPB Not Given Q24H FERNANDA Methylprednisolone 40 mg 03/12/17 22:00 03/13/17 07:08 Solu-Medrol IVP 40 mg Q8 FERNANDA Administration Montelukast Sodium 10 mg 03/12/17 22:00 03/12/17 22:28 Singulair PO 10 mg HS FERNANDA Administration Pantoprazole Sodium 40 mg 03/13/17 10:00 03/13/17 10:53 Protonix Ec Tab PO 40 mg DAILY FERNANDA Administration Fluticasone/Salmeterol 1 puff 03/12/17 20:00 03/13/17 10:41 Advair Diskus 250/50 INH Not Given RQ12 FERNANDA Past Psychiatric History - Past Psychiatric History Previous Treatment History: Inpatient Pertinent Medical Hx (Current Medical&Sleep Prob, Allergies): Allergies Allergy/AdvReac Type Severity Reaction Status Date / Time No Known Allergies Allergy Verified 03/12/17 15:22 Mirtazapine [Remeron] 30 mg PO HS #30 tab 01/22/17 Sertraline [Zoloft] 200 mg PO DAILY #60 tab 01/22/17 Albuterol HFA [Ventolin HFA 90 mcg/actuation (8 g)] 1 puff IH Q4 #1 inhaler Fluticasone/Salmeterol 250/50 [Advair Diskus 250/50] 1 puff INH RQ12 30 Days Ketoconazole 2% Cr [Nizoral] 1 appl TP DAILY 14 Days 02/21/17 Tiotropium [place] Inhaler [Spiriva Inhalation Handihaler Device] 1 inhaler INH ONCE 30 Days 02/21/17 Tiotropium [Spiriva] 18 mcg INH RQ24 30 Days 02/21/17 levoFLOXacin [Levaquin] 750 mg PO DAILY 4 Days 02/21/17 predniSONE [predniSONE Tab] 10 mg PO DAILY #20 tab 02/21/17 Review of Systems - Review of Systems All systems: reviewed and no additional remarkable complaints except - Psychiatric Psychiatric: Anxiety, Auditory Hallucinations, Irritability, Paranoia, Suicidal Ideation Mental Status Examination - Personal Presentation Personal Presentation: Looks older than stated age - Affect Affect: Constricted, Depressed - Motor Activity Motor Activity: Calm - Reliability in Providing Information Reliability in Providing Information: Poor, due to alteration in thoughts, Poor , due to altered mood - Speech Speech: Disorganized - Mood Mood: Depressed, Anxious - Formal Thought Process Formal Thought Process: Hallucinations, Delusions, Paranoia, Loosening of associations - Hallucinations/Delusions Hallucinations: Auditory Delusions: Persecution - Obsessions/Compulsions Obsessions: No Compulsions: No - Cognitive Functions Orientation: Person, Place, Situation, Time Sensorium: Alert Attention/Concentration: Attentive Abstract Thinking: [place] Estimate of Intelligence: Below average Judgement: Imparied, as evidence by: Poor judgement, Imparied, as evidence by: Lack of insight into illness - Risk Risk: Suicidal, Diminished functioning - Strength & Assets Inventory Strength & Assets Inventory: Cooperative - Limitations Limitations: Living alone DSM 5 DX - DSM 5 DSM 5 Diagnosis: Major depressive disorder recurrent severe with psychotic features Alcohol use disorder severe - Recommended/Plan of Treatment Treatment Recommendations and Plan of Treatment: Major depressive disorder recurrent severe with psychotic features CBT Psychoeducation Supportive therapy, group therapy, individual therapy Zoloft 100 mg by mouth twice a day Remeron 15 mg by mouth daily at bedtime Trazodone 50 mg by mouth daily at bedtime Alcohol use disorder severe CBT Psychoeducation Supportive therapy, individual therapy Use [place] for abstinence patient can be transferred to after medical clearance - Smoking Cessation Smoking Cessation Initiated: No
[2017-03-13 16:54] LABS: BASO # 0.1 K/uL (0.0-0.2); BASO % 0.5 % (0.0-2.0); HEMATOCRIT 36.9 % (35.0-51.0); LYMPH # 0.7 K/uL (1.0-4.3); LYMPH % 3.5 % (20.0-40.0); MEAN CELL VOLUME 94.6 fL (80.0-94.0); MEAN CORPUSCULAR HEMOGLOBIN 31.6 pg (27.0-31.0); MEAN CORPUSCULAR HGB CONC 33.5 g/dL (33.0-37.0); MEAN PLATELET VOLUME 8.6 fL (7.2-11.7); MONO # 0.4 K/uL (0.0-0.8); MONO % 2.1 % (0.0-10.0); PLATELET COUNT 201 K/uL (130-400); RED CELL DISTRIBUTION WIDTH 14.5 % (11.5-14.5)
[2017-03-13 17:08] LABS: CHLORIDE 99 mmol/L (98-107); POTASSIUM 4.3 mmol/L (3.6-5.2); SODIUM 134 mmol/L (132-148)
[2017-03-13 17:10] LABS: BILIRUBIN,TOTAL 0.1 mg/dL (0.2-1.3); CARBON DIOXIDE 24 mmol/L (22-30); GFR AFRICAN-AMERICAN > 60
[2017-03-13 17:11] LABS: ALB/GLOB RATIO 1.3 (1.0-2.1); ALKALINE PHOSPHATASE 59 U/L (38-126); ALT/SGPT 28 U/L (21-72); AST/SGOT 19 U/L (17-59); BLOOD UREA NITROGEN 14 mg/dL (9-20); CALCIUM 8.2 mg/dl (8.6-10.4); GLUCOSE,RANDOM 127 mg/dL (75-110); MAGNESIUM 1.9 mg/dL (1.6-2.3); PHOSPHOROUS 4.1 mg/dL (2.5-4.5)
--- NOTE | 2017-03-13 17:11 | CT ---
PROCEDURE: CT Chest without contrast HISTORY: 90 pack year smoking history, COPD COMPARISON: None. TECHNIQUE: Contiguous axial images were obtained through the chest without intravenous contrast enhancement. Sagittal and coronal reconstructions were performed. Radiation dose (DLP): 197.94 mGy-cm. This CT exam was performed using one or more of the following dose reduction techniques: Automated exposure control, adjustment of the mA and/or kV according to patient size, and/or use of iterative reconstruction technique. FINDINGS: LUNGS: There are moderate to mildly severe panlobular emphysema. There are scattered nodular opacities at the right lung more prominent in the middle and lower lobes suspicious for infectious process. Scattered small foci of tree-in-bud opacities are also seen at the right middle and lower lobe. There is a pleural base nodule at the anterior aspect of the right lung base/lower lobe measures 22 millimeter in the largest diameter. There is also small focal pleural base opacity at the medial anterior aspect of the right middle lobe. Both opacities may represent pneumonia versus neoplasm. MEDIASTINUM: The thoracic aorta is ectatic and tortuous. Pulmonary artery is mildly enlarged. The heart is normal in size. No lymphadenopathy. PLEURA: No pleural fluid. No pneumothorax. BONES: No fracture. No destructive lesion. UPPER ABDOMEN: Grossly unremarkable. OTHER FINDINGS: None. IMPRESSION: Moderate to mildly severe panlobular emphysema. Scattered nodular opacities more prominent at the right middle and lower lobes and associated with small tree-in-bud opacities suspicious for infectious process and spread intrabronchial spread of infection. Please correlate clinically. Two foci of pleural base opacities/consolidation or nodules seen at the right middle lobe and right lower lobe/ lung base. Follow-up reassessment after 1-3 months is recommended. The possibility of neoplasm is not totally excluded.
[2017-03-13] MEDS: Moxifloxacin IV 400mg/250ml NS 250 ML IVPB SCH (18:31)
[2017-03-13 19:49] LABS: NEUTROPHIL 86 % (50-75); TOTAL CELLS COUNTED 100
[2017-03-13 19:50] LABS: LARGE PLATELETS PRESENT
[2017-03-14] MEDS: Albuterol-Ipratrop 3 mg / 0.5 (3 ml) UD INH SCH ×4 (01:19→20:36)
[2017-03-14] MEDS: MethylPREDNISolone 40 mg Vial IVP SCH ×3 (06:05→21:08)
[2017-03-14 07:28] LABS: CHLORIDE 100 mmol/L (98-107)
[2017-03-14 07:30] LABS: SODIUM 139 mmol/L (132-148)
[2017-03-14 07:31] LABS: HEMATOCRIT 37.3 % (35.0-51.0); LYMPH # 1.1 K/uL (1.0-4.3); MEAN CELL VOLUME 94.9 fL (80.0-94.0); MEAN CORPUSCULAR HEMOGLOBIN 31.3 pg (27.0-31.0); MEAN PLATELET VOLUME 8.7 fL (7.2-11.7); MONO # 0.5 K/uL (0.0-0.8); MONO % 2.8 % (0.0-10.0); PLATELET COUNT 201 K/uL (130-400); RED CELL DISTRIBUTION WIDTH 14.7 % (11.5-14.5); WHITE BLOOD COUNT 16.4 K/uL (4.8-10.8)
[2017-03-14] MEDS: Fluticasone-Salmeterol 250-50mcg Diskus INH SCH ×2 (07:31→20:36)
[2017-03-14 07:32] LABS: ALB/GLOB RATIO 1.3 (1.0-2.1); ALKALINE PHOSPHATASE 59 U/L (38-126); AST/SGOT 22 U/L (17-59); BILIRUBIN,TOTAL 0.2 mg/dL (0.2-1.3); CARBON DIOXIDE 26 mmol/L (22-30); GFR AFRICAN-AMERICAN > 60; TOTAL PROTEIN 5.8 g/dL (6.3-8.3)
[2017-03-14 07:33] LABS: ALT/SGPT 17 U/L (21-72); BLOOD UREA NITROGEN 14 mg/dL (9-20); CALCIUM 8.3 mg/dl (8.6-10.4); GLUCOSE,RANDOM 128 mg/dL (75-110); PHOSPHOROUS 3.9 mg/dL (2.5-4.5)
[2017-03-14] MEDS: Enoxaparin 40 mg Syringe SC SCH (09:10)
[2017-03-14] MEDS: Pantoprazole 40 mg EC Tab PO SCH (09:10)
[2017-03-14 09:34] LABS: NEUTROPHIL 93 % (50-75); TOTAL CELLS COUNTED 100
--- NOTE | 2017-03-14 10:32 | CP.PCM.PN ---
<Dario Ding H - Last Filed: 03/14/17 17:28> Subjective - Date & Time of Evaluation Date of Evaluation: 03/14/17 Time of Evaluation: 08:00 - Subjective Subjective: Dr. Rojas service: Patient seen in the room with 1:1 sitter present. Patient says he has been having an easier time breathing, still complaining of mild left sided rib pain associated with coughing. No nausea, vomiting, or other episodes of diarrhea. He does report unintentional weight loss over the past 2 months. Objective - Vital Signs/Intake and Output Vital Signs (last 24 hours): Temp Pulse Resp BP Pulse Ox 98.4 F 80 20 132/81 95 03/14/17 07:20 03/14/17 07:20 03/14/17 07:20 03/14/17 07:20 03/14/17 07:20 Intake and Output: 03/14/17 03/14/17 06:59 18:59 Intake Total 240 Output Total 1250 Balance -1010 - Medications Medications: Current Medications Albuterol/Ipratropium (Duoneb 3 Mg/0.5 Mg (3 Ml) Ud) 3 ml INH RQ6 [facility] Last Admin: 03/14/17 07:31 Dose: 3 ml Enoxaparin Sodium (Lovenox) 40 mg SC DAILY [facility] Last Admin: 03/14/17 09:10 Dose: 40 mg Moxifloxacin HCl (Avelox Iv 400mg/250ml Ns) 250 mls @ 167 mls/hr IVPB Q24H [facility] Last Admin: 03/13/17 18:31 Dose: 167 mls/hr Methylprednisolone (Solu-Medrol) 40 mg IVP Q8 [facility] Last Admin: 03/14/17 06:05 Dose: 40 mg Mirtazapine (Remeron) 15 mg PO HS [facility] Last Admin: 03/13/17 21:26 Dose: 15 mg Montelukast Sodium (Singulair) 10 mg PO HS [facility] Last Admin: 03/13/17 21:26 Dose: 10 mg Nicotine (Nicoderm Cq) 1 patch TD DAILY [facility] Last Admin: 03/14/17 09:10 Dose: 1 patch Pantoprazole Sodium (Protonix Ec Tab) 40 mg PO DAILY [facility] Last Admin: 03/14/17 09:10 Dose: 40 mg Prednisone (Prednisone Tab) 10 mg PO DAILY [facility] Fluticasone/Salmeterol (Advair Diskus 250/50) 1 puff INH RQ12 [facility] Last Admin: 03/14/17 07:31 Dose: 1 puff Sertraline HCl (Zoloft) 100 mg PO DAILY [facility] Last Admin: 03/14/17 09:10 Dose: 100 mg - Labs Labs: 03/14/17 07:04 03/14/17 07:04 PT 12.0 SECONDS (9.7-12.2) 03/12/17 16:17 INR 1.1 03/12/17 16:17 APTT 34 SECONDS (21-34) 03/12/17 16:17 - Constitutional Appears: Non-toxic, No Acute Distress - Head Exam Head Exam: NORMAL INSPECTION - Eye Exam Eye Exam: Normal appearance Pupil Exam: NORMAL ACCOMODATION - Respiratory Exam Respiratory Exam: Decreased Breath Sounds, Rhonchi, Wheezes. absent: Clear to Ausculation Bilateral - GI/Abdominal Exam GI & Abdominal Exam: Soft, Normal Bowel Sounds. absent: Tenderness - Extremities Exam Extremities Exam: Normal Inspection. absent: Pedal Edema - Back Exam Back Exam: NORMAL INSPECTION - Neurological Exam Neurological Exam: Alert - Psychiatric Exam Psychiatric exam: Normal Affect, Normal Mood - Skin Skin Exam: Normal Color Assessment and Plan (1) COPD exacerbation Assessment & Plan: CT scan shows moderate to severe emphysema, cannot rule out malignancy, will need follow up ct scan in 1-3 months see emr for results. 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 IV steroids, Duoneb 3ml, singular. Day 3 Avelox IV Hbg is 6.0. WBC is improving as well. Status: Acute (2) Depression with suicidal ideation Assessment & Plan: Patient on 1:1 continue psych medication for now, he may need to transferred to after discharged, follow up psych consult, continue 1:1 obs for now. Status: Acute (3) Black stool Assessment & Plan: stool ob negative Status: Acute (4) Tobacco use disorder Assessment & Plan: continue nicoderm patch, continue to encourage smoking cessation. Status: Chronic (5) Prophylactic measure Assessment & Plan: continue current management. Status: Acute <Suman Rojas - Last Filed: 03/14/17 18:18> Objective - Vital Signs/Intake and Output Vital Signs (last 24 hours): Temp Pulse Resp BP Pulse Ox 98.2 F 101 H 20 146/85 97 03/14/17 16:05 03/14/17 16:47 03/14/17 16:05 03/14/17 16:05 03/14/17 16:05 Intake and Output: 03/14/17 03/14/17 06:59 18:59 Intake Total 240 Output Total 1250 Balance -1010 - Medications Medications: Current Medications Albuterol/Ipratropium (Duoneb 3 Mg/0.5 Mg (3 Ml) Ud) 3 ml INH RQ6 [facility] Last Admin: 03/14/17 13:18 Dose: Not Given Enoxaparin Sodium (Lovenox) 40 mg SC DAILY [facility] Last Admin: 03/14/17 09:10 Dose: 40 mg Moxifloxacin HCl (Avelox Iv 400mg/250ml Ns) 250 mls @ 167 mls/hr IVPB Q24H [facility] Last Admin: 03/13/17 18:31 Dose: 167 mls/hr Ketorolac Tromethamine (Toradol) 30 mg IVP Q8 PRN Methylprednisolone (Solu-Medrol) 40 mg IVP Q8 [facility] Last Admin: 03/14/17 13:33 Dose: 40 mg Mirtazapine (Remeron) 15 mg PO HS [facility] Last Admin: 03/13/17 21:26 Dose: 15 mg Montelukast Sodium (Singulair) 10 mg PO HS [facility] Last Admin: 03/13/17 21:26 Dose: 10 mg Nicotine (Nicoderm Cq) 1 patch TD DAILY [facility] Last Admin: 03/14/17 09:10 Dose: 1 patch Pantoprazole Sodium (Protonix Ec Tab) 40 mg PO DAILY [facility] Last Admin: 03/14/17 09:10 Dose: 40 mg Prednisone (Prednisone Tab) 10 mg PO DAILY [facility] Fluticasone/Salmeterol (Advair Diskus 250/50) 1 puff INH RQ12 [facility] Last Admin: 03/14/17 07:31 Dose: 1 puff Sertraline HCl (Zoloft) 100 mg PO DAILY [facility] Last Admin: 03/14/17 09:10 Dose: 100 mg - Labs Labs: 03/14/17 07:04 03/14/17 07:04 PT 12.0 SECONDS (9.7-12.2) 03/12/17 16:17 INR 1.1 03/12/17 16:17 APTT 34 SECONDS (21-34) 03/12/17 16:17 Attending/Attestation - Attestation I have personally seen and examined this patient.: Yes I have fully participated in the care of the patient.: Yes I have reviewed all pertinent clinical information, including history, physical exam and plan: Yes Notes (Text): 03/14/17 18:15 Medical attending: Patient was seen and examined by me, agrees the above note by the resident. The patient has a very extensive history of smoking, he explains to me that he is still smoking unfortunately. Recently he's been under a lot of stress he still on one-to-one at this time he's currently on IV Solu-Medrol, inhaled corticosteroid-induced, spray the, Spriva, nebulizer treatments. He underwent a CT scan of the chest, this did not show any acute findings however of note is a unclear small nodules seen. Radiology recommended that the patient have three-month follow-up of these areas. It was difficult to say if these areas were due to infection or other things such as a malignancy. At this time the patient is on IV Avelox Re: Toradol IV for pain control, he says that he has a lot of upper abdominal and lower chest pain due to the prolonged coughing that he's had. Thank you very much, Suman Rojas
[2017-03-14 17:06] LABS: LEGIONELLA AG URINE NEGATIVE (NEGATIVE)
[2017-03-14] MEDS: Moxifloxacin IV 400mg/250ml NS 250 ML IVPB SCH (18:41)
[2017-03-15] MEDS: Albuterol-Ipratrop 3 mg / 0.5 (3 ml) UD INH SCH ×4 (01:04→19:25)
[2017-03-15] MEDS: MethylPREDNISolone 40 mg Vial IVP SCH ×3 (06:21→21:46)
[2017-03-15 06:33] LABS: HEMATOCRIT 37.3 % (35.0-51.0); LYMPH # 0.8 K/uL (1.0-4.3); LYMPH % 5.1 % (20.0-40.0); MEAN CELL VOLUME 94.5 fL (80.0-94.0); MEAN CORPUSCULAR HEMOGLOBIN 31.6 pg (27.0-31.0); MEAN CORPUSCULAR HGB CONC 33.4 g/dL (33.0-37.0); MEAN PLATELET VOLUME 8.9 fL (7.2-11.7); MONO # 0.5 K/uL (0.0-0.8); MONO % 3.5 % (0.0-10.0); PLATELET COUNT 214 K/uL (130-400); RED CELL DISTRIBUTION WIDTH 14.8 % (11.5-14.5); WHITE BLOOD COUNT 14.6 K/uL (4.8-10.8)
[2017-03-15 06:37] LABS: CHLORIDE 97 mmol/L (98-107); POTASSIUM 4.3 mmol/L (3.6-5.2); SODIUM 135 mmol/L (132-148)
[2017-03-15 06:40] LABS: ALB/GLOB RATIO 1.2 (1.0-2.1); ALKALINE PHOSPHATASE 55 U/L (38-126); ALT/SGPT 25 U/L (21-72); AST/SGOT 17 U/L (17-59); BILIRUBIN,TOTAL 0.4 mg/dL (0.2-1.3); BLOOD UREA NITROGEN 26 mg/dL (9-20); CARBON DIOXIDE 30 mmol/L (22-30); GFR AFRICAN-AMERICAN > 60; GLUCOSE,RANDOM 97 mg/dL (75-110); PHOSPHOROUS 4.2 mg/dL (2.5-4.5); TOTAL PROTEIN 5.6 g/dL (6.3-8.3)
[2017-03-15 06:41] LABS: MAGNESIUM 1.8 mg/dL (1.6-2.3)
[2017-03-15] MEDS: Fluticasone-Salmeterol 250-50mcg Diskus INH SCH ×2 (07:52→19:24)
[2017-03-15 09:03] LABS: TOTAL CELLS COUNTED 100
[2017-03-15 09:04] LABS: NEUTROPHIL 89 % (50-75)
[2017-03-15] MEDS: Enoxaparin 40 mg Syringe SC SCH (10:01)
[2017-03-15] MEDS: Pantoprazole 40 mg EC Tab PO SCH (10:06)
--- NOTE | 2017-03-15 17:46 | PCM.PYCHPN ---
Psychiatric Progress Note - Psychiatric Progress Note Patient seen today, length of contact: 20 min Patient Chief Complaint: ''I'm so so" Problems Identified/Issues Discussed: The pt is seen, chart reviewed, case discussed. Pt mood is improved today. Pt denies suicidal thoughts today, but states " things are still shaky." Pt denies auditory hallucinations. After care discussed, support and psychoeducation given. Medical Problems: COPD, GI ulcer, Arthritis, Degenerative disc disease Medication Change: No Medical Record Reviewed: Yes Mental Status Examination - Cognitive Function Orientation: Person, Place, Situation, Time Memory: Intact Attention: WNL Concentration: WNL Association: WN Fund of Knowledge: WN - Mood Mood: Depressed, Anxious - Affect Affect: Constricted, Depressed - Speech Speech: Appropriate - Formal Thought Process Formal Thought Process: Hallucinations, Delusions, Paranoia - Suicidal Ideation Suicidal Ideation: Yes - Homicidal Ideation Homicidal Ideation: No Goal/Treatment Plan - Goal/Treatment Plan Need for Continued Stay: Severe depression anxiety, Discharge may exacerbated symptoms Progress Toward Problem(s) and Goals/Treatment Plan: Major depressive disorder recurrent severe with psychotic features CBT Psychoeducation Supportive therapy, group therapy, individual therapy Zoloft 100 mg PO daily Remeron 15 mg PO HS [facility] Alcohol use disorder severe CBT Psychoeducation Supportive therapy, individual therapy Use [facility] for abstinence Patient can be transferred to after medical clearance - Smoking Cessation Smoking Cessation Initiated: Yes
[2017-03-16] MEDS: Albuterol-Ipratrop 3 mg / 0.5 (3 ml) UD INH SCH ×4 (01:21→20:09)
[2017-03-16] MEDS: MethylPREDNISolone 40 mg Vial IVP SCH ×3 (06:13→21:30)
[2017-03-16 06:20] LABS: BASO % 0.2 % (0.0-2.0); HEMATOCRIT 39.8 % (35.0-51.0); LYMPH # 0.7 K/uL (1.0-4.3); LYMPH % 5.2 % (20.0-40.0); MEAN CELL VOLUME 94.8 fL (80.0-94.0); MEAN CORPUSCULAR HEMOGLOBIN 31.2 pg (27.0-31.0); MEAN PLATELET VOLUME 8.8 fL (7.2-11.7); MONO # 0.8 K/uL (0.0-0.8); MONO % 6.1 % (0.0-10.0); PLATELET COUNT 216 K/uL (130-400); RED CELL DISTRIBUTION WIDTH 14.3 % (11.5-14.5); WHITE BLOOD COUNT 13.6 K/uL (4.8-10.8)
[2017-03-16 06:26] LABS: CHLORIDE 98 mmol/L (98-107); POTASSIUM 4.5 mmol/L (3.6-5.2); SODIUM 139 mmol/L (132-148)
[2017-03-16 06:28] LABS: ALB/GLOB RATIO 1.3 (1.0-2.1); AST/SGOT 27 U/L (17-59); BILIRUBIN,TOTAL < 0.1 mg/dL (0.2-1.3); CARBON DIOXIDE 30 mmol/L (22-30); GFR AFRICAN-AMERICAN > 60; TOTAL PROTEIN 5.8 g/dL (6.3-8.3)
[2017-03-16 06:29] LABS: ALKALINE PHOSPHATASE 57 U/L (38-126); ALT/SGPT 25 U/L (21-72); BLOOD UREA NITROGEN 21 mg/dL (9-20); CALCIUM 8.6 mg/dl (8.6-10.4); GLUCOSE,RANDOM 92 mg/dL (75-110); PHOSPHOROUS 3.8 mg/dL (2.5-4.5)
[2017-03-16] MEDS: Fluticasone-Salmeterol 250-50mcg Diskus INH SCH ×2 (07:53→20:10)
[2017-03-16 09:04] LABS: LARGE PLATELETS PRESENT; NEUTROPHIL 86 % (50-75); TOTAL CELLS COUNTED 100
[2017-03-16] MEDS: Enoxaparin 40 mg Syringe SC SCH (10:14)
[2017-03-16] MEDS: Pantoprazole 40 mg EC Tab PO SCH (10:15)
--- NOTE | 2017-03-16 10:31 | CP.PCM.PN ---
Subjective - Date & Time of Evaluation Date of Evaluation: 03/16/17 Time of Evaluation: 10:00 - Subjective Subjective: Patient explained that his breathing seemed easier this morning then compared to before. We also went over the CT scan results of the chest. There are small nodules noted by report that will need to have another CT scan in 3 to 4 months. I explained to the patient that these maybe infectious vs malignant and that he needs repeat. Today will decrease the IV solumedrol to 20 TID. Continue with singulair, advair BID, and nebulizer treatments. WBC is slightly elevated, this maybe due to solumedrol. He is on Avelox IV At some point when breathing improves further will move to psychiatry. Objective - Vital Signs/Intake and Output Vital Signs (last 24 hours): Temp Pulse Resp BP Pulse Ox 98.2 F 80 20 164/91 H 96 03/16/17 07:07 03/16/17 08:00 03/16/17 07:07 03/16/17 07:07 03/16/17 07:07 Intake and Output: 03/16/17 03/16/17 06:59 18:59 Intake Total 840 Balance 840 - Medications Medications: Current Medications Albuterol/Ipratropium (Duoneb 3 Mg/0.5 Mg (3 Ml) Ud) 3 ml INH RQ6 [facility] Last Admin: 03/16/17 07:15 Dose: 3 ml Amlodipine Besylate (Norvasc) 5 mg PO DAILY [facility] Last Admin: 03/16/17 10:15 Dose: 5 mg Enoxaparin Sodium (Lovenox) 40 mg SC DAILY [facility] Last Admin: 03/16/17 10:14 Dose: 40 mg Moxifloxacin HCl (Avelox Iv 400mg/250ml Ns) 250 mls @ 167 mls/hr IVPB Q24H [facility] Last Admin: 03/14/17 18:41 Dose: 167 mls/hr Ketorolac Tromethamine (Toradol) 30 mg IVP Q8 PRN Last Admin: 03/15/17 14:00 Dose: 30 mg Methylprednisolone (Solu-Medrol) 20 mg IVP Q8 [facility] Mirtazapine (Remeron) 15 mg PO HS [facility] Last Admin: 03/15/17 21:46 Dose: 15 mg Montelukast Sodium (Singulair) 10 mg PO HS [facility] Last Admin: 03/15/17 21:46 Dose: 10 mg Nicotine (Nicoderm Cq) 1 patch TD DAILY [facility] Last Admin: 03/16/17 10:15 Dose: 1 patch Pantoprazole Sodium (Protonix Ec Tab) 40 mg PO DAILY [facility] Last Admin: 03/16/17 10:15 Dose: 40 mg Prednisone (Prednisone Tab) 10 mg PO DAILY [facility] Fluticasone/Salmeterol (Advair Diskus 250/50) 1 puff INH RQ12 [facility] Last Admin: 03/16/17 07:53 Dose: 1 puff Sertraline HCl (Zoloft) 100 mg PO DAILY [facility] Last Admin: 03/16/17 10:14 Dose: 100 mg - Labs Labs: 03/16/17 06:08 03/16/17 06:08 PT 12.0 SECONDS (9.7-12.2) 03/12/17 16:17 INR 1.1 03/12/17 16:17 APTT 34 SECONDS (21-34) 03/12/17 16:17 - Constitutional Appears: No Acute Distress, Chronically Ill - Head Exam Head Exam: NORMAL INSPECTION - Eye Exam Eye Exam: EOMI - ENT Exam ENT Exam: Mucous Membranes Moist - Respiratory Exam Respiratory Exam: Decreased Breath Sounds, Wheezes Additional comments: Mostly distant breath sounds with minimal wheezing. He has difficulty taking big breaths - Cardiovascular Exam Cardiovascular Exam: REGULAR RHYTHM - Neurological Exam Neurological Exam: Alert, Awake, Oriented x3 Neuro motor strength exam: Left Upper Extremity: 5, Right Upper Extremity: 5, Left Lower Extremity: 5, Right Lower Extremity: 5 - Psychiatric Exam Psychiatric exam: Depressed - Skin Skin Exam: Normal Color, Warm Assessment and Plan - Assessment and Plan (Free Text) Assessment: Assessment and Plan (1) COPD exacerbation Assessment & Plan: 03/16: today breathing is improved, will decrease IV soluedrol to 20 TID. Continue with nebulizers, Advair, Singulair CT scan shows moderate to severe emphysema, cannot rule out malignancy, will need follow up ct scan in 1-3 months see emr for results. (2) Depression with suicidal ideation Assessment & Plan: 03/16: Still on 1 to 1. When COPD is improved will transfer to Patient on 1:1 continue psych medication for now, he may need to transferred to after discharged, follow up psych consult, continue 1:1 obs for now. (3) Black stool Assessment & Plan: 03/16: Hgb has been stable, Stool negative. (4) Tobacco use disorder Assessment & Plan: continue nicoderm patch, continue to encourage smoking cessation. Status: Chronic (5) Prophylactic measure Assessment & Plan: Protonix Lovenox
[2017-03-16] MEDS: Moxifloxacin IV 400mg/250ml NS 250 ML IVPB SCH (21:31)
[2017-03-16] MEDS ORDERED: Simethicone 80 mg Chewtab PO ONE (21:45)
[2017-03-17] MEDS: Albuterol-Ipratrop 3 mg / 0.5 (3 ml) UD INH SCH ×4 (01:48→19:45)
[2017-03-17] MEDS: MethylPREDNISolone 40 mg Vial IVP SCH (06:18)
[2017-03-17 06:33] LABS: HEMATOCRIT 39.2 % (35.0-51.0); LYMPH # 0.7 K/uL (1.0-4.3); LYMPH % 6.9 % (20.0-40.0); MEAN CELL VOLUME 94.4 fL (80.0-94.0); MEAN CORPUSCULAR HEMOGLOBIN 31.6 pg (27.0-31.0); MEAN CORPUSCULAR HGB CONC 33.4 g/dL (33.0-37.0); MEAN PLATELET VOLUME 8.9 fL (7.2-11.7); MONO # 0.5 K/uL (0.0-0.8); MONO % 5.2 % (0.0-10.0); PLATELET COUNT 214 K/uL (130-400); RED CELL DISTRIBUTION WIDTH 14.5 % (11.5-14.5); WHITE BLOOD COUNT 9.6 K/uL (4.8-10.8)
[2017-03-17 06:39] LABS: CHLORIDE 96 mmol/L (98-107); POTASSIUM 4.5 mmol/L (3.6-5.2); SODIUM 135 mmol/L (132-148)
[2017-03-17 06:41] LABS: BILIRUBIN,TOTAL 0.4 mg/dL (0.2-1.3); CARBON DIOXIDE 30 mmol/L (22-30); GFR AFRICAN-AMERICAN > 60
[2017-03-17 06:42] LABS: ALB/GLOB RATIO 1.4 (1.0-2.1); ALKALINE PHOSPHATASE 56 U/L (38-126); ALT/SGPT 29 U/L (21-72); AST/SGOT 19 U/L (17-59); BLOOD UREA NITROGEN 18 mg/dL (9-20); CALCIUM 8.3 mg/dl (8.6-10.4); GLUCOSE,RANDOM 92 mg/dL (75-110); PHOSPHOROUS 4.4 mg/dL (2.5-4.5); TOTAL PROTEIN 5.7 g/dL (6.3-8.3)
[2017-03-17 06:43] LABS: MAGNESIUM 2.1 mg/dL (1.6-2.3)
--- NOTE | 2017-03-17 07:47 | CP.PCM.PN ---
<Dario Ding H - Last Filed: 03/17/17 14:10> Subjective - Date & Time of Evaluation Date of Evaluation: 03/17/17 Time of Evaluation: 09:00 - Subjective Subjective: Dr. Rojas progress note: Patient seen in room. He reports he is still breathing easier and feels better. I still reports depressed with mood with some suicidal ideation. He denies fever, chills, nausea, vomiting, dysuria, lower extremity swelling, chest pain, or palpitations. Objective - Vital Signs/Intake and Output Vital Signs (last 24 hours): Temp Pulse Resp BP Pulse Ox 97.8 F 97 H 20 125/84 96 03/16/17 23:00 03/16/17 23:00 03/16/17 23:00 03/16/17 23:00 03/16/17 23:00 Intake and Output: 03/17/17 03/17/17 06:59 18:59 Output Total 900 Balance -900 - Medications Medications: Current Medications Albuterol/Ipratropium (Duoneb 3 Mg/0.5 Mg (3 Ml) Ud) 3 ml INH RQ6 [facility] Last Admin: 03/17/17 01:48 Dose: Not Given Amlodipine Besylate (Norvasc) 5 mg PO DAILY [facility] Last Admin: 03/16/17 10:15 Dose: 5 mg Enoxaparin Sodium (Lovenox) 40 mg SC DAILY [facility] Last Admin: 03/16/17 10:14 Dose: 40 mg Moxifloxacin HCl (Avelox Iv 400mg/250ml Ns) 250 mls @ 167 mls/hr IVPB Q24H [facility] Last Admin: 03/16/17 21:31 Dose: 167 mls/hr Methylprednisolone (Solu-Medrol) 20 mg IVP Q8 [facility] Last Admin: 03/17/17 06:18 Dose: 20 mg Mirtazapine (Remeron) 15 mg PO HS [facility] Last Admin: 03/16/17 21:31 Dose: 15 mg Montelukast Sodium (Singulair) 10 mg PO HS [facility] Last Admin: 03/16/17 21:30 Dose: 10 mg Nicotine (Nicoderm Cq) 1 patch TD DAILY [facility] Last Admin: 03/16/17 10:15 Dose: 1 patch Pantoprazole Sodium (Protonix Ec Tab) 40 mg PO DAILY [facility] Last Admin: 03/16/17 10:15 Dose: 40 mg Prednisone (Prednisone Tab) 10 mg PO DAILY [facility] Fluticasone/Salmeterol (Advair Diskus 250/50) 1 puff INH RQ12 [facility] Last Admin: 03/16/17 20:10 Dose: 1 puff Sertraline HCl (Zoloft) 100 mg PO DAILY [facility] Last Admin: 03/16/17 10:14 Dose: 100 mg - Labs Labs: 03/17/17 06:06 03/17/17 06:06 PT 12.0 SECONDS (9.7-12.2) 03/12/17 16:17 INR 1.1 03/12/17 16:17 APTT 34 SECONDS (21-34) 03/12/17 16:17 - Constitutional Appears: Non-toxic, No Acute Distress - Head Exam Head Exam: NORMAL INSPECTION - Respiratory Exam Respiratory Exam: Wheezes, NORMAL BREATHING PATTERN. absent: Clear to Ausculation Bilateral, Rales - Cardiovascular Exam Cardiovascular Exam: REGULAR RHYTHM, RRR, +S1, +S2. absent: Gallop, Rubs - GI/Abdominal Exam GI & Abdominal Exam: Soft, Normal Bowel Sounds. absent: Tenderness - Extremities Exam Extremities Exam: Normal Inspection. absent: Pedal Edema - Neurological Exam Neurological Exam: Alert, Oriented x3 - Psychiatric Exam Psychiatric exam: Normal Affect, Normal Mood - Skin Skin Exam: Normal Color Assessment and Plan (1) COPD exacerbation Assessment & Plan: have dc IV steroids, he is now on prednisone 40mg daily, continue adviar, singular, and duoneb IV Avelox as well. Patient maybe discharged or transfered to tomorrow. Status: Acute (2) Depression with suicidal ideation Assessment & Plan: Patient is still reporting depression with suicidal ideation, continue 1:1 observation for now Status: Acute (3) Black stool Assessment & Plan: stool ob is negative, hbg is stable Status: Acute (4) Tobacco use disorder Assessment & Plan: Nicoderm patch, encourage smoking cessation. Status: Chronic (5) Prophylactic measure Assessment & Plan: continue current mangaement Status: Acute <Suman Rojas - Last Filed: 03/17/17 15:52> Objective - Vital Signs/Intake and Output Vital Signs (last 24 hours): Temp Pulse Resp BP Pulse Ox 98.2 F 88 17 134/83 97 03/17/17 08:00 03/17/17 08:00 03/17/17 08:00 03/17/17 08:00 03/17/17 08:00 Intake and Output: 03/17/17 03/17/17 06:59 18:59 Output Total 900 Balance -900 - Medications Medications: Current Medications Albuterol/Ipratropium (Duoneb 3 Mg/0.5 Mg (3 Ml) Ud) 3 ml INH RQ6 [facility] Last Admin: 03/17/17 13:54 Dose: Not Given Amlodipine Besylate (Norvasc) 5 mg PO DAILY [facility] Last Admin: 03/17/17 10:45 Dose: 5 mg Enoxaparin Sodium (Lovenox) 40 mg SC DAILY [facility] Last Admin: 03/17/17 10:45 Dose: 40 mg Moxifloxacin HCl (Avelox Iv 400mg/250ml Ns) 250 mls @ 167 mls/hr IVPB Q24H [facility] Last Admin: 03/16/17 21:31 Dose: 167 mls/hr Mirtazapine (Remeron) 15 mg PO HS [facility] Last Admin: 03/16/17 21:31 Dose: 15 mg Montelukast Sodium (Singulair) 10 mg PO HS [facility] Last Admin: 03/16/17 21:30 Dose: 10 mg Nicotine (Nicoderm Cq) 1 patch TD DAILY [facility] Last Admin: 03/17/17 10:45 Dose: 1 patch Pantoprazole Sodium (Protonix Ec Tab) 40 mg PO DAILY [facility] Last Admin: 03/17/17 10:45 Dose: 40 mg Prednisone (Prednisone Tab) 10 mg PO DAILY [facility] Fluticasone/Salmeterol (Advair Diskus 250/50) 1 puff INH RQ12 [facility] Last Admin: 03/17/17 08:27 Dose: 1 puff Sertraline HCl (Zoloft) 100 mg PO DAILY [facility] Last Admin: 03/17/17 10:45 Dose: 100 mg - Labs Labs: 03/17/17 06:06 03/17/17 06:06 PT 12.0 SECONDS (9.7-12.2) 03/12/17 16:17 INR 1.1 03/12/17 16:17 APTT 34 SECONDS (21-34) 03/12/17 16:17 Attending/Attestation - Attestation I have personally seen and examined this patient.: Yes I have fully participated in the care of the patient.: Yes I have reviewed all pertinent clinical information, including history, physical exam and plan: Yes Notes (Text): Medical Attending: Patient was seen and examined by me. Agree with the above note by the resident. The patient looked and felt better. Breathing was much easier Change IV solumedrol to PO Prednisone. If patient does ok then tommorow probably can be moved to psychiatry service thank you Suman Rojas
[2017-03-17] MEDS: Fluticasone-Salmeterol 250-50mcg Diskus INH SCH ×2 (08:27→19:45)
[2017-03-17 08:49] LABS: NEUTROPHIL 83 % (50-75); REACTIVE LYMPHOCYTES 3 % (0-0); TOTAL CELLS COUNTED 100
[2017-03-17 08:51] LABS: LARGE PLATELETS PRESENT
--- NOTE | 2017-03-17 10:30 | PCM.PYCHPN ---
Psychiatric Progress Note - Psychiatric Progress Note Patient seen today, length of contact: 17 min Patient Chief Complaint: "I'm feeling useless" Problems Identified/Issues Discussed: Patient seen and evaluated, chart reviewed and discussed with the nurse. Patient still reports irritable and depressed mood and reports feelings of hopelessness and helplessness. He states that he cannot function as much as he used to. He also reports that his job at [employer] requires him to work harder, but he cannot work at this age like he used to work in the past. Patient still appears isolated, depressed and withdrawn. However is taking medication and denied any side effects. Supportive therapy and psychoeducation were given. Medication Change: Yes (d/c 1:1) Medical Record Reviewed: Yes Mental Status Examination - Cognitive Function Orientation: Person, Place, Situation, Time Memory: Intact Attention: WNL Concentration: Poor Association: WNL Fund of Knowledge: Poor - Mood Mood: Depressed, Anxious - Affect Affect: Constricted, Depressed - Speech Speech: Appropriate - Formal Thought Process Formal Thought Process: Paranoia - Suicidal Ideation Suicidal Ideation: No - Homicidal Ideation Homicidal Ideation: No Goal/Treatment Plan - Goal/Treatment Plan Need for Continued Stay: Severe depression anxiety, Discharge may exacerbated symptoms Progress Toward Problem(s) and Goals/Treatment Plan: Major depressive disorder recurrent severe with psychotic features CBT Psychoeducation Supportive therapy, group therapy, individual therapy Zoloft 100 mg by mouth twice a day Remeron 15 mg by mouth daily at bedtime Trazodone 50 mg by mouth daily at bedtime d/c 1:1 Alcohol use disorder severe CBT Psychoeducation Supportive therapy, individual therapy Use [facility] for abstinence patient can be transferred to after medical clearance - Smoking Cessation Smoking Cessation Initiated: No
[2017-03-17] MEDS: Enoxaparin 40 mg Syringe SC SCH (10:45)
[2017-03-17] MEDS: Pantoprazole 40 mg EC Tab PO SCH (10:45)
[2017-03-17] MEDS: Moxifloxacin IV 400mg/250ml NS 250 ML IVPB SCH (20:44)
[2017-03-18 06:15] LABS: BASO % 0.1 % (0.0-2.0); EOS # 0.2 K/uL (0.0-0.7); EOS % 2.1 % (0.0-4.0); HEMATOCRIT 39.2 % (35.0-51.0); LYMPH # 1.8 K/uL (1.0-4.3); MEAN CELL VOLUME 95.1 fL (80.0-94.0); MEAN CORPUSCULAR HEMOGLOBIN 31.5 pg (27.0-31.0); MEAN CORPUSCULAR HGB CONC 33.2 g/dL (33.0-37.0); MEAN PLATELET VOLUME 8.7 fL (7.2-11.7); MONO # 0.9 K/uL (0.0-0.8); MONO % 9.6 % (0.0-10.0); NRBC % 0.1 % (0.0-2.0); RED CELL DISTRIBUTION WIDTH 14.3 % (11.5-14.5); WHITE BLOOD COUNT 9.5 K/uL (4.8-10.8)
[2017-03-18 06:24] LABS: CHLORIDE 97 mmol/L (98-107); SODIUM 135 mmol/L (132-148)
[2017-03-18 06:25] LABS: POTASSIUM 4.2 mmol/L (3.6-5.2)
[2017-03-18 06:27] LABS: ALB/GLOB RATIO 1.2 (1.0-2.1); ALKALINE PHOSPHATASE 50 U/L (38-126); ALT/SGPT 27 U/L (21-72); AST/SGOT 20 U/L (17-59); BILIRUBIN,TOTAL 0.1 mg/dL (0.2-1.3); BLOOD UREA NITROGEN 21 mg/dL (9-20); CARBON DIOXIDE 31 mmol/L (22-30); GFR AFRICAN-AMERICAN > 60; GLUCOSE,RANDOM 78 mg/dL (75-110); TOTAL PROTEIN 5.3 g/dL (6.3-8.3)
[2017-03-18 06:28] LABS: CALCIUM 7.8 mg/dl (8.6-10.4); MAGNESIUM 1.9 mg/dL (1.6-2.3); PHOSPHOROUS 2.9 mg/dL (2.5-4.5)
--- NOTE | 2017-03-18 07:49 | CP.PCM.PN ---
Subjective - Date & Time of Evaluation Date of Evaluation: 03/18/17 Time of Evaluation: 09:06 - Subjective Subjective: PGY 1 Medicine Note- Dr. Rojas's service Pt seen and examined in no acute distress. Pt states that his breathing is improved . He states that he still feels a little down regarding his job situation and daily stressors. He denies shortness of breath, palpitations, chest pain, cough, diarrhea, constipation, paresthesias at this time. Objective - Vital Signs/Intake and Output Vital Signs (last 24 hours): Temp Pulse Resp BP Pulse Ox 98 F 87 20 109/73 96 03/18/17 00:20 03/18/17 00:20 03/18/17 00:20 03/18/17 00:20 03/18/17 00:20 Intake and Output: 03/18/17 03/18/17 06:59 18:59 Output Total 300 Balance -300 - Medications Medications: Current Medications Amlodipine Besylate (Norvasc) 5 mg PO DAILY [facility] Last Admin: 03/17/17 10:45 Dose: 5 mg Enoxaparin Sodium (Lovenox) 40 mg SC DAILY [facility] Last Admin: 03/17/17 10:45 Dose: 40 mg Moxifloxacin HCl (Avelox Iv 400mg/250ml Ns) 250 mls @ 167 mls/hr IVPB Q24H [facility] Last Admin: 03/17/17 20:44 Dose: 167 mls/hr Mirtazapine (Remeron) 15 mg PO HS [facility] Last Admin: 03/17/17 21:55 Dose: 15 mg Montelukast Sodium (Singulair) 10 mg PO HS [facility] Last Admin: 03/17/17 21:55 Dose: 10 mg Nicotine (Nicoderm Cq) 1 patch TD DAILY [facility] Last Admin: 03/17/17 10:45 Dose: 1 patch Pantoprazole Sodium (Protonix Ec Tab) 40 mg PO DAILY [facility] Last Admin: 03/17/17 10:45 Dose: 40 mg Prednisone (Prednisone Tab) 10 mg PO DAILY [facility] Fluticasone/Salmeterol (Advair Diskus 250/50) 1 puff INH RQ12 [facility] Last Admin: 03/17/17 19:45 Dose: 1 puff Sertraline HCl (Zoloft) 100 mg PO DAILY [facility] Last Admin: 03/17/17 10:45 Dose: 100 mg - Labs Labs: 03/18/17 06:07 03/18/17 06:07 PT 12.0 SECONDS (9.7-12.2) 03/12/17 16:17 INR 1.1 03/12/17 16:17 APTT 34 SECONDS (21-34) 03/12/17 16:17 - Constitutional Appears: Non-toxic, No Acute Distress - Head Exam Head Exam: ATRAUMATIC, NORMAL INSPECTION, NORMOCEPHALIC - Eye Exam Eye Exam: EOMI, Normal appearance, PERRL Pupil Exam: NORMAL ACCOMODATION - ENT Exam ENT Exam: Mucous Membranes Moist, Normal Exam - Neck Exam Neck Exam: Full ROM - Respiratory Exam Respiratory Exam: Wheezes, NORMAL BREATHING PATTERN - Cardiovascular Exam Cardiovascular Exam: +S1, +S2 - GI/Abdominal Exam GI & Abdominal Exam: Soft, Normal Bowel Sounds - Extremities Exam Extremities Exam: Full ROM, Normal Inspection - Back Exam Back Exam: Full ROM - Neurological Exam Neurological Exam: Alert, Awake, Oriented x3 - Psychiatric Exam Psychiatric exam: Normal Affect, Normal Mood - Skin Skin Exam: Dry, Normal Color, Warm Assessment and Plan - Assessment and Plan (Free Text) Assessment: (1) COPD exacerbation Assessment & Plan: Prednisone 10mg daily, continue advair and singular IV avelox switched to PO formulation daily Status: Acute (2) Depression with suicidal ideation Assessment & Plan: Zoloft 100 mg PO daily, Remeron 15 mg PO HS Patient is still reporting depression with suicidal ideation,Transfer to [facility] Status: Acute (3) Black stool Assessment & Plan: stool ob is negative, hbg is stable. no further complaints Status: Acute (4) Tobacco use disorder Assessment & Plan: Nicoderm patch, encourage smoking cessation. Status: Chronic (5) Prophylactic measure Assessment & Plan: PPI Ambulates Status: Acute Disp: Transfer to [facility] for continued monitoring. Will monitor tmrw and consider signing off.
[2017-03-18] MEDS: Fluticasone-Salmeterol 250-50mcg Diskus INH SCH ×2 (09:18→19:18)
[2017-03-18] MEDS: Enoxaparin 40 mg Syringe SC SCH (11:02)
[2017-03-18] MEDS: Pantoprazole 40 mg EC Tab PO SCH (11:04)
[2017-03-18 16:02] VITALS: O2SAT 97
--- NOTE | 2017-03-19 09:23 | CP.PCM.PN ---
<Sowmya Ashton - Last Filed: 03/19/17 15:34> Subjective - Date & Time of Evaluation Date of Evaluation: 03/19/17 Time of Evaluation: 07:02 - Subjective Subjective: PGY 1 Medicine Note- Dr. Shafer's service Pt seen and examined in no acute distress. Patient states that his breathing has improved. He was transferred to [facility] overnight. Patient specifically denies subjective fevers or chills, nausea, vomiting, chest pain, palpitations, dyspnea, paresthesias, headaches , diarrhea or constipation at this time. Objective - Vital Signs/Intake and Output Vital Signs (last 24 hours): Temp Pulse Resp BP Pulse Ox 97.9 F 79 20 113/65 97 03/19/17 07:54 03/19/17 07:54 03/19/17 07:54 03/19/17 07:54 03/18/17 16:01 - Medications Medications: Current Medications Amlodipine Besylate (Norvasc) 5 mg PO DAILY [facility] Last Admin: 03/18/17 11:04 Dose: 5 mg Enoxaparin Sodium (Lovenox) 40 mg SC DAILY [facility] Last Admin: 03/18/17 11:02 Dose: 40 mg Mirtazapine (Remeron) 15 mg PO HS [facility] Last Admin: 03/18/17 22:42 Dose: 15 mg Montelukast Sodium (Singulair) 10 mg PO HS [facility] Last Admin: 03/18/17 22:42 Dose: 10 mg Moxifloxacin HCl (Avelox) 400 mg PO DAILY [facility] Nicotine (Nicoderm Cq) 1 patch TD DAILY [facility] Last Admin: 03/18/17 11:03 Dose: 1 patch Pantoprazole Sodium (Protonix Ec Tab) 40 mg PO DAILY [facility] Last Admin: 03/18/17 11:04 Dose: 40 mg Prednisone (Prednisone Tab) 10 mg PO DAILY [facility] Fluticasone/Salmeterol (Advair Diskus 250/50) 1 puff INH RQ12 [facility] Last Admin: 03/18/17 19:18 Dose: 1 puff Sertraline HCl (Zoloft) 100 mg PO DAILY [facility] Last Admin: 03/18/17 11:04 Dose: 100 mg - Labs Labs: 03/18/17 06:07 03/18/17 06:07 PT 12.0 SECONDS (9.7-12.2) 03/12/17 16:17 INR 1.1 03/12/17 16:17 APTT 34 SECONDS (21-34) 03/12/17 16:17 - Constitutional Appears: Non-toxic, No Acute Distress - Head Exam Head Exam: ATRAUMATIC, NORMAL INSPECTION, NORMOCEPHALIC - Eye Exam Eye Exam: EOMI, Normal appearance, PERRL Pupil Exam: NORMAL ACCOMODATION - ENT Exam ENT Exam: Mucous Membranes Moist - Neck Exam Neck Exam: Full ROM, Normal Inspection - Respiratory Exam Respiratory Exam: Rhonchi, Wheezes, NORMAL BREATHING PATTERN. absent: Decreased Breath Sounds, Respiratory Distress, Stridor - Cardiovascular Exam Cardiovascular Exam: +S1, +S2 - GI/Abdominal Exam GI & Abdominal Exam: Soft, Normal Bowel Sounds. absent: Tenderness - Extremities Exam Extremities Exam: Full ROM, Normal Capillary Refill - Back Exam Back Exam: Full ROM - Neurological Exam Neurological Exam: Alert, Awake, CN II-XII Intact, Oriented x3 - Psychiatric Exam Psychiatric exam: Normal Affect, Normal Mood - Skin Skin Exam: Dry, Intact, Normal Color, Warm Assessment and Plan - Assessment and Plan (Free Text) Assessment: (1) COPD exacerbation Assessment & Plan: Continue advair and singular Avelox. Last dose to be administer today. (Seven day coverage) Patient to be provided with maintenance scripts for Singulair and Spiriva upon discharge. Status: Acute (2) Depression with suicidal ideation Assessment & Plan: Zoloft 100 mg PO daily, Remeron 15 mg PO HS Patient 's mood has been improved. Management per Psych team. Status: Acute (3) Black stool Assessment & Plan: stool ob is negative, hbg is stable. no further complaints Status: Acute (4) Tobacco use disorder Assessment & Plan: Nicoderm patch, Patient counseled extensively on risks of continued smoking. Patient acknowledged understanding of risks discussed. Status: Chronic (5) Prophylactic measure Assessment & Plan: PPI Ambulates Status: Acute Pt was transferred to [facility] 03/18 overnight for continued monitoring. Medicine team will sign off at this point. Please re-consult if necessary. <Margie Shafer V - Last Filed: 03/20/17 00:20> Objective - Vital Signs/Intake and Output Vital Signs (last 24 hours): Temp Pulse Resp BP Pulse Ox 97.9 F 89 20 112/72 97 03/19/17 07:54 03/19/17 16:14 03/19/17 07:54 03/19/17 16:14 03/18/17 16:01 - Medications Medications: Current Medications Amlodipine Besylate (Norvasc) 5 mg PO DAILY [facility] Last Admin: 03/19/17 09:31 Dose: 5 mg Mirtazapine (Remeron) 15 mg PO HS [facility] Last Admin: 03/19/17 21:12 Dose: 15 mg Montelukast Sodium (Singulair) 10 mg PO HS [facility] Last Admin: 03/19/17 21:12 Dose: 10 mg Nicotine (Nicoderm Cq) 1 patch TD DAILY [facility] Last Admin: 03/19/17 09:31 Dose: 1 patch Pantoprazole Sodium (Protonix Ec Tab) 40 mg PO DAILY [facility] Last Admin: 03/19/17 09:31 Dose: 40 mg Prednisone (Prednisone Tab) 10 mg PO DAILY [facility] Fluticasone/Salmeterol (Advair Diskus 250/50) 1 puff INH RQ12 [facility] Last Admin: 03/19/17 19:50 Dose: 1 puff Sertraline HCl (Zoloft) 100 mg PO DAILY [facility] Last Admin: 03/19/17 09:31 Dose: 100 mg - Labs Labs: 03/18/17 06:07 03/18/17 06:07 PT 12.0 SECONDS (9.7-12.2) 03/12/17 16:17 INR 1.1 03/12/17 16:17 APTT 34 SECONDS (21-34) 03/12/17 16:17 Attending/Attestation - Attestation I have personally seen and examined this patient.: Yes I have fully participated in the care of the patient.: Yes I have reviewed all pertinent clinical information, including history, physical exam and plan: Yes Notes (Text): This is late computer entry for 03/19/17. Patient seen, evaluated on . Patient reports shortness of breathe has improved. Patient reports he has sufficient supply of his Albuterol and Fluticasone, but is without his Singulair and Spiriva. Patient is a current smoker. Patient counselled extensively at bedside regarding the effects of smoking on his lung function as well as other risks including increased risk for cancer. Patient is open to nictone patches but advised strongly against smoking with the patch on. Patient has completed 7 day course of Avelox to cover for pneumonia and provided scripts for Singulair and Spiriva. Patient has pending follow-up appointment in the Clinic with Resident, Dr Ding for April 02. Patient will need a follow-up CT Chest in 1-3 months to follow-up pulmonary nodules and given his smoking history to monitor for potential malignancy. Medicine to sign off at this time. Please re-consult. Thank you. Management as per psych.
[2017-03-19] MEDS: Pantoprazole 40 mg EC Tab PO SCH (09:31)
[2017-03-19] MEDS: Fluticasone-Salmeterol 250-50mcg Diskus INH SCH ×2 (10:36→19:50)
[2017-03-19] MEDS: Enoxaparin 40 mg Syringe SC SCH (10:40)
--- NOTE | 2017-03-19 11:02 | PCM.PYCHPN ---
Psychiatric Progress Note - Psychiatric Progress Note Patient seen today, length of contact: 15 min Patient Chief Complaint: "I'm feeling little better" Problems Identified/Issues Discussed: Patient seen and evaluated, chart reviewed and discussed with the nurse. As per staff patient remained isolated and withdrawn. He reports of improvement in his mood, but still reports depressed mood and reports feelings of hopelessness and helplessness. However is taking medication and denied any side effects. Supportive therapy and psychoeducation were given. Patient was transferred to [facility]. Medication Change: Yes (Increase Zoloft) Medical Record Reviewed: Yes Mental Status Examination - Cognitive Function Orientation: Person, Place, Situation, Time Memory: Intact Attention: WNL Concentration: Poor Association: WNL Fund of Knowledge: Poor - Mood Mood: Depressed, Anxious - Affect Affect: Constricted, Depressed - Speech Speech: Appropriate - Formal Thought Process Formal Thought Process: No Impairment - Suicidal Ideation Suicidal Ideation: No - Homicidal Ideation Homicidal Ideation: No Goal/Treatment Plan - Goal/Treatment Plan Need for Continued Stay: Severe depression anxiety, Discharge may exacerbated symptoms Progress Toward Problem(s) and Goals/Treatment Plan: Major depressive disorder recurrent severe with psychotic features CBT Psychoeducation Supportive therapy, group therapy, individual therapy Zoloft 150 mg by mouth twice a day Remeron 15 mg by mouth daily at bedtime Trazodone 50 mg by mouth daily at bedtime Alcohol use disorder severe CBT Psychoeducation Supportive therapy, individual therapy Use [place] for abstinence - Smoking Cessation Smoking Cessation Initiated: No
[2017-03-20] MEDS: Fluticasone-Salmeterol 250-50mcg Diskus INH SCH ×2 (09:00→20:10)
[2017-03-20] MEDS: Pantoprazole 40 mg EC Tab PO SCH (09:46)
--- NOTE | 2017-03-20 13:30 | PCM.PYCHPN ---
Psychiatric Progress Note - Psychiatric Progress Note Patient seen today, length of contact: 15 min Patient Chief Complaint: "I'm feeling depressed" Problems Identified/Issues Discussed: Patient seen and evaluated, chart reviewed and discussed with the nurse. As per the staff, patient still appears isolated, depressed and withdrawn. Patient still reports depressed mood and reports at times feelings of hopelessness or helplessness. He reports that he cannot work at this age like to work in the past, as he is getting weaker. However is taking medication and denied any side effects. Supportive therapy and psychoeducation were given. Medication Change: Yes (COPD medication) Medical Record Reviewed: Yes Mental Status Examination - Cognitive Function Orientation: Person, Place, Situation, Time Memory: Intact Attention: WNL Concentration: Poor Association: WNL Fund of Knowledge: Poor - Mood Mood: Depressed, Anxious - Affect Affect: Constricted, Depressed - Speech Speech: Appropriate - Formal Thought Process Formal Thought Process: No Impairment - Suicidal Ideation Suicidal Ideation: No - Homicidal Ideation Homicidal Ideation: No Goal/Treatment Plan - Goal/Treatment Plan Need for Continued Stay: Severe depression anxiety, Discharge may exacerbated symptoms Progress Toward Problem(s) and Goals/Treatment Plan: Major depressive disorder recurrent severe with psychotic features CBT Psychoeducation Supportive therapy, group therapy, individual therapy Zoloft 200 mg by mouth twice a day Remeron 15 mg by mouth daily at bedtime Trazodone 50 mg by mouth daily at bedtime Alcohol use disorder severe CBT Psychoeducation Supportive therapy, individual therapy Use [place] for abstinence COPD Continue prescribed medications Monitor signs and symptoms HTN Continue prescribed medications Monitor signs and symptoms - Smoking Cessation Smoking Cessation Initiated: No
[2017-03-20] MEDS: Mometasone 220 mcg/puff-14 puff Inh INH SCH ×2 (17:36→21:05)
[2017-03-20] MEDS ORDERED: Aluminum Hydroxide/Magnesium Hydroxide Susp (30 mL) PO PRN (19:39)
[2017-03-21] MEDS: Fluticasone-Salmeterol 250-50mcg Diskus INH SCH ×2 (08:12→19:14)
[2017-03-21] MEDS: Pantoprazole 40 mg EC Tab PO SCH (09:31)
--- NOTE | 2017-03-21 13:34 | PCM.PYCHPN ---
Psychiatric Progress Note - Psychiatric Progress Note Patient seen today, length of contact: 15 min Patient Chief Complaint: I'm feeling much better Problems Identified/Issues Discussed: Patient seen and evaluated, chart reviewed and discussed with the nurse. Patient reports improvement in his mood and denies any feelings of hopelessness or helplessness. He reports improvement in sleep and appetite and appeared energetic and kempt. He started coming out of his room and started attending groups and meetings. He is taking medication and denied any side effects. Supportive therapy and psychoeducation were given. Aftercare plan was discussed Medication Change: Yes (COPD medication) Medical Record Reviewed: Yes Mental Status Examination - Cognitive Function Orientation: Person, Place, Situation, Time Memory: Intact Attention: WNL Concentration: WNL Association: WNL Fund of Knowledge: WNL - Mood Mood: Depressed, Anxious - Affect Affect: Constricted, Depressed - Speech Speech: Appropriate - Formal Thought Process Formal Thought Process: No Impairment - Suicidal Ideation Suicidal Ideation: No - Homicidal Ideation Homicidal Ideation: No Goal/Treatment Plan - Goal/Treatment Plan Need for Continued Stay: Severe depression anxiety, Discharge may exacerbated symptoms Progress Toward Problem(s) and Goals/Treatment Plan: Major depressive disorder recurrent severe with psychotic features CBT Psychoeducation Supportive therapy, group therapy, individual therapy Zoloft 200 mg by mouth twice a day Remeron 15 mg by mouth daily at bedtime Trazodone 50 mg by mouth daily at bedtime Alcohol use disorder severe CBT Psychoeducation Supportive therapy, individual therapy Use CT for abstinence COPD Continue prescribed medications Monitor signs and symptoms HTN Continue prescribed medications Monitor signs and symptoms - Smoking Cessation Smoking Cessation Initiated: No
[2017-03-21] MEDS: Mometasone 220 mcg/puff-14 puff Inh INH SCH (21:03)
[2017-03-22 07:57] VITALS: BP 123/80; PULSE 85; RESP 19; TEMP 98
[2017-03-22] MEDS: Fluticasone-Salmeterol 250-50mcg Diskus INH SCH (07:57)
[2017-03-22] MEDS: Pantoprazole 40 mg EC Tab PO SCH (10:08)
--- NOTE | 2017-03-22 10:23 | PCM.PYCHDC ---
Mental Status Examination - Mental Status Examination Orientation: Person, Place, Situation, Time Memory: Intact Mood: Neutral Affect: Constricted Speech: Soft Attention: WNL Concentration: WNL Association: WNL Fund of Knowledge: WNL Formal Thought Process: No Impairment Description of patient's judgement and insight: GOOD, FAIR Psychotic Thoughts and Behaviors: Denies any AVH Suicidal Ideation: No Current Homicidal Ideation?: No Discharge Summary - Discharge Note Reason for Hospitalization: Pt is a 57 year old male. Pt states he was adopted, both parents are and has no brothers or sisters. Pt is and does not have children. Pt is homeless and lives in shelters. 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 Pt reports that he came into the hospital because of SOB and feeling depressed with suicidal ideation. Pt states that he heard voices that told him it is not worth living about 3 days ago. Pt had suicidal thoughts , but denies having those thoughts today. Pt denies hurting others today as well. Pt denies visual or auditory hallucinations today. Patient current mood is low. Pt reports feeling of helplessness and states that he feels useless. Pt reports that he started drinking alcohol at 10 years old. Pt admits to drinking one and a half pint of vodka with a 25 ounce bottle of beer a day. The last time pt drank alcohol was 2 months ago. Pt denies using drugs currently. Pt admits to smoking marijuana in the past. Pt smokes one and a half packs of cigarettes every day. Pt has been to detox and rehab multiple times. Pt has also been hospitalized in the past multiple times for ETOH abuse and depression. The last time patient saw a psychiatrist was 2 years ago at [facility] for depression. Pt does not remember the outcome of the visit or if medication was prescribed. Pt complains of SOB, neck pain and coughing. Patient admits to anxiety and depression. Pt states he is a "bundle of nerves" and is worried about everything. Patient admits to being paranoid. Pt fears that people are taking advantage of him. Pt admits to having racing thoughts. Pt is not sure about his plan upon discharge. He desires to go back to work and is unsure about rehab. Consultations:: List each consultation separately and include: 1. Reason for request. 2. Findings. 3. Follow-up Summary of Hospital Course include:: 1. Description of specific treatment plan utilized for patients during their course of treatmen. 2. Summarize the time- course for resolution of acute symptoms and/or regressed behaviors. 3. Describe issues identified and worked on during hospitalization. 4. Describe medication utilized. 5. Describe medical problems identified and treated. 6. Reassessment of suicide risk Summary of Hospital Course: During the course of his stay, patient (pt) started progressively improving and he no longer remained irritable, depressed, and suicidal. His mood was improved and he started attending groups and meetings and started socializing. Patient denied any feelings of hopelessness, helplessness, and worthlessness, denied any problem with the sleep or appetite, denied suicidal ideation or homicidal ideation. Pt denied any auditory or visual hallucinations. Some changes were made in his current medications and patient was discharged on following medications. He tolerated these medications very well and denied any side effects. - Final Diagnosis (DSM 5) Condition upon Discharge: STABLE DSM 5: Major depressive disorder recurrent severe with psychotic features Alcohol use disorder severe Disposition: HOME/ ROUTINE Follow-up Treatment Plan: Education: Pt was educated and counseled about the risks and benefits of taking and not taking medications. Pt was educated and counseled about the risks of drinking and abusing drugs. Pt was educated and counseled to go to the ER or call 911 if pt develop suicidal ideation or homicidal ideation, worsening of symptoms or severe side effects of the meds. Prescriptions/Medication Reconciliation: Mirtazapine [Remeron] 15 mg PO HS #30 tab Sertraline [Zoloft] 100 mg PO DAILY #60 tab - Smoking Cessation Smoking Cessation Medication prescribed: No - Antipsychotic Medications Pt discharged on 2 or more routine antipsychotic medications: No
== END 2017-03-22 11:00 | disposition home or self-care (01) | DRG 430 ==
LOC: C.ER 15:14 → C.9E 17:55 → C.6T 22:34 → C.5E 03-18 23:00
PROVIDERS: ADMIT Psychiatry & Neurology Psychiatry; ATTEND Psychiatry & Neurology Psychiatry
PROC: GZ3ZZZZ Medication Management (ICD-10-PCS; principal; 2017-03-13)
PROC: HZ59ZZZ Individual Psychotherapy for Substance Abuse Treatment, Supportive (ICD-10-PCS; 2017-03-13)
PROC: GZHZZZZ Group Psychotherapy (ICD-10-PCS; 2017-03-13)
PROC: GZ56ZZZ Individual Psychotherapy, Supportive (ICD-10-PCS; 2017-03-13)
PROC: HZ89ZZZ Medication Management for Substance Abuse Treatment, Other Replacement Medication (ICD-10-PCS; 2017-03-13)
DX: F33.3 Major depressive disorder, recurrent, severe with psychotic symptoms (principal); R45.851 Suicidal ideations; J44.1 Chronic obstructive pulmonary disease with (acute) exacerbation; F10.20 Alcohol dependence, uncomplicated; R73.9 Hyperglycemia, unspecified; F17.210 Nicotine dependence, cigarettes, uncomplicated; R19.5 Other fecal abnormalities; D72.829 Elevated white blood cell count, unspecified; T38.0X5A Adverse effect of glucocorticoids and synthetic analogues, initial encounter; Z59.0 Homelessness; Z87.11 Personal history of peptic ulcer disease

== ENCOUNTER 2017-04-22 09:26 | Inpatient (IN) | payer OTHER ==
[2017-04-22 09:26] VITALS: BMI 21.1
[2017-04-22] MEDS ORDERED: Albuterol-Ipratrop 3 mg / 0.5 (3 ml) UD ONE ×2 (09:33→11:44)
[2017-04-22] MEDS ORDERED: Albuterol-Ipratrop 3 mg / 0.5 (3 ml) UD INH STA ×3 (09:51→11:24)
[2017-04-22 10:52] LABS: PLATELET COUNT 160 K/uL (130-400)
[2017-04-22 10:56] LABS: RBC URINE 17 /hpf (0-3); URINE BILIRUBIN NEGATIVE (NEGATIVE); URINE COLOR Amber (YELLOW); URINE GLUCOSE (UA) NORMAL (Normal); URINE KETONE TRACE mg/dL (NEGATIVE); URINE LEUKOCYTE ESTERASE NEG Leu/uL (Negative); URINE PROTEIN 1+ mg/dL (NEGATIVE); WBC URINE 1 /hpf (0-5)
[2017-04-22 10:57] LABS: CHLORIDE 95 mmol/L (98-107); POTASSIUM 3.6 mmol/L (3.6-5.2); SODIUM 140 mmol/L (132-148)
[2017-04-22 10:59] LABS: ALB/GLOB RATIO 1.5 (1.0-2.1); ALKALINE PHOSPHATASE 70 U/L (38-126); AST/SGOT 22 U/L (17-59); BILIRUBIN,TOTAL 0.8 mg/dL (0.2-1.3); CARBON DIOXIDE 29 mmol/L (22-30); GFR AFRICAN-AMERICAN > 60; TOTAL PROTEIN 6.6 g/dL (6.3-8.3)
[2017-04-22 11:00] LABS: ALCOHOL SERUM < 10 mg/dl (0-10); ALT/SGPT 19 U/L (21-72); BLOOD UREA NITROGEN 6 mg/dL (9-20); CALCIUM 8.3 mg/dl (8.6-10.4); GLUCOSE,RANDOM 118 mg/dL (75-110)
[2017-04-22 11:04] LABS: URINE BLOOD 1+ (NEGATIVE)
[2017-04-22 11:07] LABS: BASO % 0.2 % (0.0-2.0); HEMATOCRIT 40.9 % (35.0-51.0); LYMPH # 1.6 K/uL (1.0-4.3); LYMPH % 8.7 % (20.0-40.0); MEAN CELL VOLUME 93.7 fL (80.0-94.0); MEAN CORPUSCULAR HEMOGLOBIN 31.9 pg (27.0-31.0); MONO # 0.9 K/uL (0.0-0.8); RED CELL DISTRIBUTION WIDTH 14.6 % (11.5-14.5)
[2017-04-22 11:16] LABS: WHITE BLOOD COUNT 18.3 K/uL (4.8-10.8)
--- NOTE | 2017-04-22 11:38 | C.PDOC ---
History Of Present Illness 57 year old male presents to the ED with complaints of suicidal ideation and depression. Patient notes his COPD is acting up. States this is his baseline, he would have not come in for the SOB. Pt used his inhalers this morning. He states he smokes one pack a day. Patient admits to ETOH, last drink at 5am. denies chest pain or any other complaints at this time. Time Seen by Provider: 04/22/17 09:37 Chief Complaint (Nursing): Psychiatric Evaluation History Per: Patient History/Exam Limitations: no limitations Onset/Duration Of Symptoms: Hrs Current Symptoms Are (Timing): Still Present Suicide/Self Injury Attempted (Context): None Associated Symptoms: Depression, Suicidal Thoughts Recent travel outside of the [place]: No Past Medical History Reviewed: Historical Data, Nursing Documentation, Vital Signs Vital Signs: Last Vital Signs Temp 98.6 F 04/22/17 14:54 Pulse 109 H 04/22/17 14:54 Resp 20 04/22/17 14:54 BP 122/68 04/22/17 14:54 Pulse Ox 95 04/22/17 15:20 - Medical History PMH: Anxiety, COPD, Depression, Gastrointestinal Ulcer Surgical History: Appendectomy, Tonsillectomy - [facility] Procedures CONTR ABD ARTERIOGRM NEC (05/20/07) DETOXIFICATION SERVICES FOR SUBSTANCE ABUSE TREATMENT (01/14/17) ESOPHAGOGASTRODUODENOSCOPY [EGD] W/CLOSED BIOPSY (05/20/07) GROUP ACTIVITIES DIRECTOR FOR SUBSTANCE ABUSE TREATMENT, PSYCHOEDUCATION (01/14/17) GROUP ACTIVITIES DIRECTOR FOR SUBSTANCE ABUSE, COGNITIVE BEHAVIORAL (01/14/17) GROUP PSYCHOTHERAPY (03/12/17) INDIV ACTIVITIES DIRECTOR FOR SUBSTANCE ABUSE TREATMENT, PSYCHOEDUCATION (01/14/17) INDIV ACTIVITIES DIRECTOR FOR SUBSTANCE ABUSE, COGNITIVE BEHAVIORAL (01/14/17) INDIV PSYCHOTHERAPY FOR SUBSTANCE ABUSE TREATMENT, SUPPORT (03/12/17) INDIVIDUAL PSYCHOTHERAPY, SUPPORTIVE (03/12/17) INJECT/INFUSE NEC (03/20/12) MEDICATION MANAGEMENT (03/12/17) MEDS MGMT FOR SUBSTANCE ABUSE TREATMENT, OTH REPL MED (03/12/17) Family History: States: Unknown Family Hx - Social History Hx Tobacco Use: Yes Hx Alcohol Use: Yes (occasional) Hx Substance Use: Yes - Immunization History Hx Tetanus Toxoid Vaccination: Yes Hx Influenza Vaccination: Yes Hx Pneumococcal Vaccination: Yes Review Of Systems Constitutional: Negative for: Fever, Chills, Sweats Eyes: Negative for: Vision Change Cardiovascular: Negative for: Chest Pain, Palpitations Respiratory: Positive for: Shortness of Breath. Negative for: Cough Gastrointestinal: Negative for: Nausea, Vomiting, Abdominal Pain, Diarrhea Neurological: Negative for: Weakness, Numbness, Headache, Dizziness Psych: Positive for: Depression, Suicidal ideation Physical Exam - Physical Exam Appears: Non-toxic, No Acute Distress Skin: Warm, Dry Head: Atraumatic, Normacephalic Eye(s): bilateral: Normal Inspection, PERRL, EOMI Nose: Normal Oral Mucosa: Moist Neck: Normal, Normal ROM, Supple Chest: Symmetrical, No Deformity Cardiovascular: Rhythm Regular Respiratory: No Rales, No Rhonchi, No Stridor, Wheezing (bilateral wheezing ) Gastrointestinal/Abdominal: Soft, No Tenderness, No Distention, No Guarding, No Rebound Extremity: Normal ROM, No Tenderness Neurological/Psych: Oriented x3 ED Course And Treatment - Laboratory Results Result Diagrams: 04/22/17 11:03 04/22/17 10:30 O2 Sat by Pulse Oximetry: 95 - Radiology CXR: Interpreted by Me, Viewed By Me CXR Interpretation: Yes: No Acute Disease Progress Note: Pt received duo nebs and steriods in ER. On re-evaluation, pt is speaking in full sentences. Wheezing improved. Pulse ox WNL. Leukocytosis noted. CXR ordered- no infiltrate noted. No signs or symptoms of infection. Afebrile. No ches tpain. No abdominal pain. Pt is medically cleared for psych admission. Medical consult it suggested to maintain his COPD, continue prednisone, and recheck WBC. Case discsused with Dr Mckeon, agreed upon plan and treatment. Disposition - Disposition Disposition: HOME/ ROUTINE Disposition Time: 15:20 Condition: STABLE - Clinical Impression Clinical Impression: COPD (chronic obstructive pulmonary disease), Depression - Scribe Statement The provider has reviewed the documentation as recorded by the Scribe Dolores Kan All medical record entries made by the Scribe were at my direction and personally dictated by me. I have reviewed the chart and agree that the record accurately reflects my personal performance of the history, physical exam, medical decision making, and the department course for this patient. I have also personally directed, reviewed, and agree with the discharge instructions and disposition.
[2017-04-22 11:56] LABS: NEUTROPHIL 81 % (50-75); TOTAL CELLS COUNTED 100
--- NOTE | 2017-04-22 12:17 | RAD ---
HISTORY: Shortness of breath. COMPARISON: 03/12/2017. TECHNIQUE: Chest PA and lateral FINDINGS: LUNGS: Hyperinflation, manifestations of COPD. No active pulmonary disease. PLEURA: No significant pleural effusion identified. No pneumothorax apparent. CARDIOVASCULAR: Normal. OSSEOUS STRUCTURES: No significant abnormalities. VISUALIZED UPPER ABDOMEN: Normal. OTHER FINDINGS: None. IMPRESSION: No active disease. No significant interval change compared to the prior examination(s).
[2017-04-23] MEDS ORDERED: Albuterol HFA 90 mcg/actuation (8 g) INH PRN (07:15)
--- NOTE | 2017-04-23 09:51 | PCM.PSYCH ---
Initial Psychiatric Evaluation - Initial Psychiatric Evaluation Type of Admission: Voluntary Legal Status: Capacity Chief Complaint (in patient's own words): I was depressed and wanted to just kill myself and end it all. History of Present Illness and Precipitating Events: Patient is a 57 year old male with a PMH of COPD, depression, asthma. 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 Pt presents with complaints of depression, suicidal ideation, and SOB. 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 Patient states he wanted to just "end it all" and planned to run onto the highway. Pt states he has been having suicidal thoughts for 1 week. Pt denies visual or auditory hallucinations. Pt states his last suicide attempt was 30 years ago- he tried to hang himself. Pt was last admitted 1 month ago for similar reasons. Pt states that he takes his medication - zoloft- but ran out of it 4 days ago. Pt feels that it is not working very well and wants to try a different medication. Pt states he uses alcohol and had 4 pints over the weekend. Pt states he usually has 1 pint a day, and his last drink was 1/4 of a pint at 5 am on 04/22. Pt states he also had half a joint of marijuana on 04/21. Pt denies any other drug use. Current Medications: Active Medications Generic Name Dose Route Start Last Admin Trade Name Freq PRN Reason Stop Dose Admin Albuterol 1 puff 04/23/17 07:15 Ventolin Hfa 90 Mcg/Actuation (8 G) INH RQ4 PRN Shortness of Breath Fluticasone/Salmeterol 1 puff 04/23/17 08:00 Advair Diskus 250/50 INH RQ12 FERNANDA Trazodone HCl 50 mg 04/22/17 22:45 04/22/17 22:45 Desyrel PO 50 mg HS FERNANDA Administration Past Psychiatric History - Past Psychiatric History Previous Treatment History: Inpatient Pertinent Medical Hx (Current Medical&Sleep Prob, Allergies): Allergies Allergy/AdvReac Type Severity Reaction Status Date / Time No Known Allergies Allergy Verified 04/22/17 09:39 Mirtazapine [Remeron] 30 mg PO HS #30 tab 01/22/17 Sertraline [Zoloft] 200 mg PO DAILY #60 tab 01/22/17 Albuterol HFA [Ventolin HFA 90 mcg/actuation (8 g)] 1 puff IH Q4 #1 inhaler Fluticasone/Salmeterol 250/50 [Advair Diskus 250/50] 1 puff INH RQ12 30 Days Ketoconazole 2% Cr [Nizoral] 1 appl TP DAILY 14 Days 02/21/17 Tiotropium [place] Inhaler [Spiriva Inhalation Handihaler Device] 1 inhaler INH ONCE 30 Days 02/21/17 Tiotropium [Spiriva] 18 mcg INH RQ24 30 Days 02/21/17 levoFLOXacin [Levaquin] 750 mg PO DAILY 4 Days 02/21/17 predniSONE [predniSONE Tab] 10 mg PO DAILY #20 tab 02/21/17 Mirtazapine [Remeron] 15 mg PO HS #30 tab 03/22/17 Sertraline [Zoloft] 100 mg PO DAILY #60 tab 03/22/17 Review of Systems - Review of Systems All systems: reviewed and no additional remarkable complaints except - Psychiatric Psychiatric: Anxiety, Change in Appetite, Depression, Hopelessness, Irritability , Suicidal Ideation Mental Status Examination - Personal Presentation Personal Presentation: Looks stated age - Affect Affect: Constricted, Depressed - Motor Activity Motor Activity: Calm - Reliability in Providing Information Reliability in Providing Information: Good - Speech Speech: Organized - Mood Mood: Depressed, Anxious - Formal Thought Process Formal Thought Process: No Impairment - Obsessions/Compulsions Obsessions: No Compulsions: No - Cognitive Functions Orientation: Person, Place, Situation, Time Sensorium: Alert Attention/Concentration: Attentive Abstract Thinking: [place] Estimate of Intelligence: Below average Judgement: Imparied, as evidence by: Poor judgement, Imparied, as evidence by: Lack of insight into illness - Risk Risk: Suicidal, Withdrawal, Diminished functioning - Strength & Assets Inventory Strength & Assets Inventory: Cooperative - Limitations Limitations: Living alone DSM 5 DX - DSM 5 DSM 5 Diagnosis: Major depressive disorder recurrent severe without psychotic features Alcohol use disorder severe Alcohol withdrawal uncomplicated - Recommended/Plan of Treatment Treatment Recommendations and Plan of Treatment: Major depressive disorder recurrent severe without psychotic features CBT Psychoeducation Supportive therapy, group therapy, individual therapy Zoloft 50 mg by mouth daily Remeron 15 mg by mouth daily at bedtime Neurontin 100 mg by mouth 3 times a day Trazodone 50 mg by mouth daily at bedtime Alcohol use disorder severe CBT Psychoeducation Supportive therapy, individual therapy Use [place] for abstinence Alcohol withdrawal uncomplicated CBT Psychoeducation Supportive therapy, individual therapy Librium when necessary Start folic acid/thiamine/multivitamin COPD Continue prescribed medications Monitor signs and symptoms - Smoking Cessation Smoking Cessation Initiated: No
[2017-04-23] MEDS: Fluticasone-Salmeterol 250-50mcg Diskus INH SCH ×3 (10:37→21:33)
[2017-04-23] MEDS ORDERED: Albuterol-Ipratrop 3 mg / 0.5 (3 ml) UD INH PRN (16:33)
[2017-04-24] MEDS: Fluticasone-Salmeterol 250-50mcg Diskus INH SCH ×2 (07:50→20:23)
--- NOTE | 2017-04-24 11:50 | PCM.PYCHPN ---
Psychiatric Progress Note - Psychiatric Progress Note Patient seen today, length of contact: 17 min Patient Chief Complaint: I am still feeling depressed. Problems Identified/Issues Discussed: Patient seen and evaluated, chart reviewed and discussed with the nurse. As per the staff, patient still appears isolated, depressed and withdrawn. Patient still reports depressed mood and reports at times feelings of hopelessness or helplessness. He reports withdrawal symptoms including cramps, headaches, back pain and sweating. He denies any auditory or visual hallucinations or any psychotic symptoms. Supportive therapy and psychoeducation were given. Medication Change: Yes (librium prn) Medical Record Reviewed: Yes Mental Status Examination - Cognitive Function Orientation: Person, Place, Situation, Time Memory: Intact Attention: Poor Concentration: Poor Association: WNL Fund of Knowledge: Poor - Mood Mood: Depressed, Anxious - Affect Affect: Constricted, Depressed - Speech Speech: Soft - Formal Thought Process Formal Thought Process: No Impairment - Suicidal Ideation Suicidal Ideation: No - Homicidal Ideation Homicidal Ideation: No Goal/Treatment Plan - Goal/Treatment Plan Need for Continued Stay: Discharge may exacerbated symptoms, Severe functional impairment Progress Toward Problem(s) and Goals/Treatment Plan: Major depressive disorder recurrent severe without psychotic features CBT Psychoeducation Supportive therapy, group therapy, individual therapy Zoloft 50 mg by mouth daily Remeron 15 mg by mouth daily at bedtime Neurontin 100 mg by mouth 3 times a day Trazodone 50 mg by mouth daily at bedtime Alcohol use disorder severe CBT Psychoeducation Supportive therapy, individual therapy Use [place] for abstinence Alcohol withdrawal uncomplicated CBT Psychoeducation Supportive therapy, individual therapy Librium when necessary Start folic acid/thiamine/multivitamin COPD Continue prescribed medications Monitor signs and symptoms - Smoking Cessation Smoking Cessation Initiated: No
[2017-04-25] MEDS: Fluticasone-Salmeterol 250-50mcg Diskus INH SCH ×2 (08:00→21:23)
[2017-04-25] MEDS ORDERED: Albuterol 0.083% Inhal Sol (2.5 mg/3 mL) UD INH PRN (14:07)
--- NOTE | 2017-04-25 14:07 | PCM.PYCHPN ---
Psychiatric Progress Note - Psychiatric Progress Note Patient seen today, length of contact: 17 min Patient Chief Complaint: I am still feeling depressed. Problems Identified/Issues Discussed: Patient seen and evaluated, chart reviewed and discussed with the nurse. Today, pt reports depressed mood and reports at times feelings of hopelessness or helplessness. As per the staff, patient remained isolated, depressed and withdrawn. He reports withdrawal symptoms including shakes, headaches, and sweating. He denies any auditory or visual hallucinations or any psychotic symptoms. He is taking medications and denies any side effects. Supportive therapy and psychoeducation were given. Medication Change: Yes (librium prn) Medical Record Reviewed: Yes Mental Status Examination - Cognitive Function Orientation: Person, Place, Situation, Time Memory: Intact Attention: Poor Concentration: Poor Association: WNL Fund of Knowledge: Poor - Mood Mood: Depressed, Anxious - Affect Affect: Constricted, Depressed - Speech Speech: Soft - Formal Thought Process Formal Thought Process: No Impairment - Suicidal Ideation Suicidal Ideation: No - Homicidal Ideation Homicidal Ideation: No Goal/Treatment Plan - Goal/Treatment Plan Need for Continued Stay: Discharge may exacerbated symptoms, Severe functional impairment Progress Toward Problem(s) and Goals/Treatment Plan: Major depressive disorder recurrent severe without psychotic features CBT Psychoeducation Supportive therapy, group therapy, individual therapy Zoloft 50 mg by mouth daily Remeron 15 mg by mouth daily at bedtime Neurontin 100 mg by mouth 3 times a day Trazodone 50 mg by mouth daily at bedtime Alcohol use disorder severe CBT Psychoeducation Supportive therapy, individual therapy Use [place] for abstinence Alcohol withdrawal uncomplicated CBT Psychoeducation Supportive therapy, individual therapy Librium when necessary Start folic acid/thiamine/multivitamin COPD Continue prescribed medications Monitor signs and symptoms - Smoking Cessation Smoking Cessation Initiated: No
[2017-04-25] MEDS ORDERED: Albuterol-Ipratrop 3 mg / 0.5 (3 ml) UD INH PRN (15:00)
[2017-04-26] MEDS: Fluticasone-Salmeterol 250-50mcg Diskus INH SCH ×2 (09:38→19:53)
--- NOTE | 2017-04-26 12:32 | PCM.PYCHPN ---
Psychiatric Progress Note - Psychiatric Progress Note Patient seen today, length of contact: 15 min Patient Chief Complaint: I am still feeling depressed. Problems Identified/Issues Discussed: Patient seen and evaluated, chart reviewed and discussed with the nurse. Patient remained isolated, depressed and withdrawn. He still reports feelings of hopelessness or helplessness. He is still reporting withdrawal symptoms including shakes, headaches, and sweating. He denies any auditory or visual hallucinations or any psychotic symptoms. He is taking medications and denies any side effects. He was seen at the treatment plan meeting and he expressed his desire to go to the [facility] after discharge. Supportive therapy and psychoeducation were given. Medication Change: Yes (increase zoloft, increase remeron) Medical Record Reviewed: Yes Mental Status Examination - Cognitive Function Orientation: Person, Place, Situation, Time Memory: Intact Attention: WNL Concentration: Poor Association: WNL Fund of Knowledge: Poor - Mood Mood: Depressed, Anxious - Affect Affect: Constricted, Depressed - Speech Speech: Soft - Formal Thought Process Formal Thought Process: No Impairment - Suicidal Ideation Suicidal Ideation: No - Homicidal Ideation Homicidal Ideation: No Goal/Treatment Plan - Goal/Treatment Plan Need for Continued Stay: Discharge may exacerbated symptoms, Severe functional impairment Progress Toward Problem(s) and Goals/Treatment Plan: Major depressive disorder recurrent severe without psychotic features CBT Psychoeducation Supportive therapy, group therapy, individual therapy Zoloft 100 mg by mouth daily Remeron 30 mg by mouth daily at bedtime Neurontin 100 mg by mouth 3 times a day Trazodone 50 mg by mouth daily at bedtime Alcohol use disorder severe CBT Psychoeducation Supportive therapy, individual therapy Use [place] for abstinence Alcohol withdrawal uncomplicated CBT Psychoeducation Supportive therapy, individual therapy Librium when necessary Start folic acid/thiamine/multivitamin COPD Continue prescribed medications Monitor signs and symptoms - Smoking Cessation Smoking Cessation Initiated: No
[2017-04-26] MEDS: Aluminum Hydroxide/Magnesium Hydroxide Susp (30 mL) PO PRN (21:17)
[2017-04-27] MEDS: Fluticasone-Salmeterol 250-50mcg Diskus INH SCH ×2 (08:06→20:15)
--- NOTE | 2017-04-27 18:21 | PCM.PYCHPN ---
Psychiatric Progress Note - Psychiatric Progress Note Patient seen today, length of contact: 15 min Patient Chief Complaint: I'm feeling better but still depressed Problems Identified/Issues Discussed: Patient seen. Chart reviewed. Case discussed with the staff. Issues related to illness and treatment were discussed with the patient, reported compliant with treatment with no adverse affects, tolerating treatment very well. Patient reported feeling better but still depressed. Requesting multivitamin tablet his patient feels weakness. We will increase the dose of mirtazapine to 30 mg from 15 mg. At the time of evaluation, patient was awake alert oriented 3, had no delusions, no suicidal ideations or homicidal ideations. Medical Problems: None reported Diagnostic Results: Reviewed DSM 5 Symptoms Update: Improving with treatment Medication Change: No Medical Record Reviewed: Yes Mental Status Examination - Cognitive Function Orientation: Person, Place, Situation, Time Memory: Intact Attention: WNL Concentration: WNL Association: WNL Fund of Knowledge: [facility] Decription of patient's judgement and insights: Fair - Mood Mood: Depressed (Less than before) - Affect Affect: Depressed - Speech Speech: Appropriate - Formal Thought Process Formal Thought Process: No Impairment Psychotic Thoughts and Behaviors: None - Suicidal Ideation Suicidal Ideation: No - Homicidal Ideation Homicidal Ideation: No Goal/Treatment Plan - Goal/Treatment Plan Need for Continued Stay: Remain at risks for inpatient hospitalization, Discharge may exacerbated symptoms, Severe functional impairment Progress Toward Problem(s) and Goals/Treatment Plan: Patient education Supportive therapy Continue treatment as before Estimated Date of D/C: 04/30/17 - Smoking Cessation Smoking Cessation Initiated: No
[2017-04-28] MEDS: Fluticasone-Salmeterol 250-50mcg Diskus INH SCH ×2 (09:24→19:20)
[2017-04-28] MEDS: Multiple Vitamins Tab PO SCH (09:25)
[2017-04-28] MEDS: Aluminum Hydroxide/Magnesium Hydroxide Susp (30 mL) PO PRN ×2 (13:02→21:37)
--- NOTE | 2017-04-28 16:10 | PCM.PYCHPN ---
Psychiatric Progress Note - Psychiatric Progress Note Patient seen today, length of contact: 15 min Patient Chief Complaint: I'm feeling better but still depressed Problems Identified/Issues Discussed: Patient seen. Chart reviewed. Case discussed with the staff. Issues related to illness and treatment were discussed with the patient, reported compliant with treatment with no adverse affects, tolerating treatment very well. Patient reported feeling better but still depressed. Reported he is worried about his future. Requesting nicotine patch. Reported he was smoking one and a half pack of cigarettes daily. At the time of evaluation, patient was awake alert oriented 3, had no delusions, no suicidal ideations or homicidal ideations. Medical Problems: None reported Diagnostic Results: Reviewed DSM 5 Symptoms Update: Improving with treatment Medication Change: No Medical Record Reviewed: Yes Mental Status Examination - Cognitive Function Orientation: Person, Place, Situation, Time Memory: Intact Attention: WNL Concentration: WNL Association: WNL Fund of Knowledge: [facility] Decription of patient's judgement and insights: Fair - Mood Mood: Depressed (Less than before) - Affect Affect: Depressed - Speech Speech: Appropriate - Formal Thought Process Formal Thought Process: No Impairment Psychotic Thoughts and Behaviors: None - Suicidal Ideation Suicidal Ideation: No - Homicidal Ideation Homicidal Ideation: No Goal/Treatment Plan - Goal/Treatment Plan Need for Continued Stay: Remain at risks for inpatient hospitalization, Discharge may exacerbated symptoms, Severe functional impairment Progress Toward Problem(s) and Goals/Treatment Plan: Patient education Supportive therapy Continue treatment as before We will start nicotine patch 21 mg Estimated Date of D/C: 04/30/17 - Smoking Cessation Smoking Cessation Initiated: Yes
[2017-04-29] MEDS: Fluticasone-Salmeterol 250-50mcg Diskus INH SCH ×2 (07:49→19:37)
[2017-04-29] MEDS: Multiple Vitamins Tab PO SCH (09:49)
--- NOTE | 2017-04-29 10:07 | PCM.PYCHPN ---
Psychiatric Progress Note - Psychiatric Progress Note Patient seen today, length of contact: 15 min Patient Chief Complaint: I feel so-so but still depressed. Problems Identified/Issues Discussed: Patient seen and evaluated, chart reviewed and discussed with the nurse. The patient states that he is feeling so-so and still feels depressed. He says that he has COPD so he cant fulfill his job duties like he used to so he drinks alcohol which doesnt help. He says that he feels bent out of shape and has a little anxiety as well. He denies H/I and S/I currently but complains of paranoia. He feels that people use him for things such as cigarettes and money. He says that he didnt sleep well and woke up multiple times last night. He denies any medication side effects. He appears to have a flat affect but is kempt and has organized speech. Supportive therapy and psychoeducation were given. Medication Change: Yes (Zofran for vomiting) Medical Record Reviewed: Yes Mental Status Examination - Cognitive Function Orientation: Person, Place, Situation, Time Memory: Intact Attention: WNL Concentration: WNL Association: WNL Fund of Knowledge: WNL - Mood Mood: Depressed (Less than before) - Affect Affect: Depressed - Speech Speech: Appropriate - Formal Thought Process Formal Thought Process: No Impairment - Suicidal Ideation Suicidal Ideation: No - Homicidal Ideation Homicidal Ideation: No Goal/Treatment Plan - Goal/Treatment Plan Need for Continued Stay: Remain at risks for inpatient hospitalization, Discharge may exacerbated symptoms, Severe functional impairment Progress Toward Problem(s) and Goals/Treatment Plan: Major depressive disorder recurrent severe without psychotic features CBT Psychoeducation Supportive therapy, group therapy, individual therapy Zoloft 100 mg by mouth daily Remeron 30 mg by mouth daily at bedtime Neurontin 100 mg by mouth 3 times a day Trazodone 50 mg by mouth daily at bedtime Alcohol use disorder severe CBT Psychoeducation Supportive therapy, individual therapy Use [place] for abstinence Alcohol withdrawal uncomplicated CBT Psychoeducation Supportive therapy, individual therapy Librium when necessary Start folic acid/thiamine/multivitamin COPD Continue prescribed medications Monitor signs and symptoms Estimated Date of D/C: 04/30/17
[2017-04-29] MEDS: Aluminum Hydroxide/Magnesium Hydroxide Susp (30 mL) PO PRN (11:22)
[2017-04-30] MEDS: Fluticasone-Salmeterol 250-50mcg Diskus INH SCH (07:46)
[2017-04-30] MEDS: Multiple Vitamins Tab PO SCH (10:04)
--- NOTE | 2017-04-30 15:37 | PCM.PYCHPN ---
Psychiatric Progress Note - Psychiatric Progress Note Patient seen today, length of contact: 15 min Patient Chief Complaint: I feel so-so but still depressed. Problems Identified/Issues Discussed: Patient seen and evaluated, chart reviewed and discussed with the nurse. The patient states that he is feeling so-so and still feels depressed. He says that he has COPD so he cant fulfill his job duties like he used to so he drinks alcohol which doesnt help. He says that he feels bent out of shape and has a little anxiety as well. He denies H/I and S/I currently but complains of paranoia. He feels that people use him for things such as cigarettes and money. He says that he didnt sleep well and woke up multiple times last night. He denies any medication side effects. He appears to have a flat affect but is kempt and has organized speech. Supportive therapy and psychoeducation were given. Medication Change: Yes (Medical Consult) Medical Record Reviewed: Yes Mental Status Examination - Cognitive Function Orientation: Person, Place, Situation, Time Memory: Intact Attention: WNL Concentration: WNL Association: [facility] Fund of Knowledge: WN - Mood Mood: Depressed (Less than before) - Affect Affect: Depressed - Speech Speech: Appropriate - Formal Thought Process Formal Thought Process: No Impairment - Suicidal Ideation Suicidal Ideation: No - Homicidal Ideation Homicidal Ideation: No Goal/Treatment Plan - Goal/Treatment Plan Need for Continued Stay: Remain at risks for inpatient hospitalization, Discharge may exacerbated symptoms, Severe functional impairment Progress Toward Problem(s) and Goals/Treatment Plan: Major depressive disorder recurrent severe without psychotic features CBT Psychoeducation Supportive therapy, group therapy, individual therapy Zoloft 100 mg by mouth daily Remeron 30 mg by mouth daily at bedtime Neurontin 100 mg by mouth 3 times a day Trazodone 50 mg by mouth daily at bedtime Alcohol use disorder severe CBT Psychoeducation Supportive therapy, individual therapy Use [place] for abstinence Alcohol withdrawal uncomplicated CBT Psychoeducation Supportive therapy, individual therapy Librium when necessary Start folic acid/thiamine/multivitamin COPD Continue prescribed medications Monitor signs and symptoms Estimated Date of D/C: 04/30/17
--- NOTE | 2017-04-30 16:21 | CP.PCM.HP ---
<Deepthi Campos - Last Filed: 04/30/17 16:11> History of Present Illness - History of Present Illness History of Present Illness: CC: shortness of breath HPI: Patient is a 57 y/o male with past medical history of COPD, major depressive disorder, alcohol abuse disorder, perforated ulcer and shingles currently admitted to inpatient psychiatry for suicidal ideation who is complaining of shortness of breath and new onset pain on inspiration that radiates to his back between his scapulae. He describes the pain as sharp, 6/10 intensity, and states that it started as soon as he awoke this morning and lasted for 20 minutes. He states that deep breaths tend to make the pain worse. As a result, he has been taking shallow breaths. Patient admits to a history of COPD and has been experiencing shortness of breath while at work. He was given Advair and Albuterol, which he said provided him with some relief. The patient states that he was admitted to inpatient psychiatry last week for excessive alcohol consumption (5 pints of vodka) and suicidal intention (his plan was to run into traffic). He admits to 3 episodes of vomiting in the past 2 days and states that the emesis contained blood. The patient admits to fever/chills, nausea, vomiting x3 (contained blood), fatigue, general weakness, night sweats, unintentional 10-lb weight loss this year, headache, rhinorrhea, sore throat, chest pain, palpitations, cough productive of yellow sputum, shortness of breath , pain on inspiration, joint pain, muscle aches, stress, and anxiety. He denies diaphoresis, vision changes, dizziness, claudication, rashes, diarrhea, constipation, abdominal pain, hematochezia, hematuria, recent travel or sick contacts. PMD: Dr. Dawson PMH: see HPI Medications: Zoloft, Gabapentin, Incruse ellipta, Flovent Allergies: NKDA Surgeries/hospitalizations: Perforated ulcer, Upper GI bleeding, Removal of 3 pilonidal cysts, Appendectomy, Tonsillectomy Family History: unknown, patient adopted Social history: The patient lives at [facility]. He admits to smoking 1.5 packs of cigarettes per day since the age of 10 y/o. He also admits to occasional use of marijuana. He currently admits to drinking 1-2 pints of vodka per week. He admits to past cocaine use when he was younger. Present on Admission - Present on Admission Any Indicators Present on Admission: No History of DVT/PE: No History of Uncontrolled Diabetes: No Urinary Catheter: No Decubitus Ulcer Present: No Review of Systems - Constitutional Constitutional: As Per HPI, Chills, Fever, Malaise, Weight Loss, Weakness - EENT Eyes: absent: Blurred Vision, Change in Vision Ears: absent: Ear Discharge, Ear Pain Nose/Mouth/Throat: absent: Nasal Congestion, Nose Pain - Cardiovascular Cardiovascular: As Per HPI, Chest Pain, Dyspnea on Exertion, Radiating Pain, Rapid Heart Rate. absent: Lightheadedness, Palpitations, Pedal Edema, Slow Heart Rate - Respiratory Respiratory: As Per HPI, Cough, Wheezing, Chest Congestion, Excessive Mucous Production, Change in Mucous Color - Gastrointestinal Gastrointestinal: Abdominal Pain, Hematemesis, Nausea, Vomiting. absent: Diarrhea, Hematochezia - Musculoskeletal Musculoskeletal: Muscle Cramps, Myalgias. absent: Arthralgias - Integumentary Integumentary: absent: Changing Lesions, New Lesions, Rash - Neurological Neurological: absent: Dizziness, Focal Weakness, Headaches - Psychiatric Psychiatric: Anxiety, Depression, Suicidal Ideation Past Patient History - Infectious Disease Hx of Infectious Diseases: None - Past Medical History & Family History Past Medical History?: Yes - Past Social History Smoking Status: Heavy Smoker > 10 Cigarettes Daily - CARDIAC Hx Hypertension: No - PULMONARY Hx Chronic Obstructive Pulmonary Disease (COPD): Yes - NEUROLOGICAL Hx Seizures: No - HEENT Hx HEENT Problems: No - RENAL Hx Chronic Kidney Disease: No - ENDOCRINE/METABOLIC Hx Endocrine Disorders: No - HEMATOLOGICAL/ONCOLOGICAL Hx Human Immunodeficiency Virus (HIV): No - INTEGUMENTARY Hx Dermatological Problems: No - MUSCULOSKELETAL/RHEUMATOLOGICAL Hx Musculoskeletal Disorders: No Hx Falls: No - GASTROINTESTINAL Hx Gastroesophageal Reflux: Yes Hx Ulcer: Yes - GENITOURINARY/GYNECOLOGICAL Hx Sexually Transmitted Disorders: No - PSYCHIATRIC Hx Substance Use: Yes - SURGICAL HISTORY Hx Appendectomy: Yes Hx Tonsillectomy: Yes - ANESTHESIA Hx Anesthesia: Yes Hx Anesthesia Reactions: No Meds Allergies/Adverse Reactions: Allergies Allergy/AdvReac Type Severity Reaction Status Date / Time No Known Allergies Allergy Verified 04/22/17 09:39 Physical Exam - Constitutional Appears: Non-toxic, No Acute Distress - Head Exam Head Exam: ATRAUMATIC, NORMAL INSPECTION, NORMOCEPHALIC - Eye Exam Eye Exam: EOMI, Normal appearance - ENT Exam ENT Exam: Mucous Membranes Moist - Respiratory Exam Respiratory Exam: Wheezes. absent: Chest Wall Tenderness Additional comments: wheezing on inspiration and expiration to bilateral anterior and posterior lung correia - Cardiovascular Exam Cardiovascular Exam: REGULAR RHYTHM, +S1, +S2. absent: Tachycardia - GI/Abdominal Exam GI & Abdominal Exam: Normal Bowel Sounds, Soft. absent: Distended, Firm, Guarding - Extremities Exam Extremities exam: Positive for: normal capillary refill, normal inspection, pedal pulses present. Negative for: calf tenderness, pedal edema, tenderness - Back Exam Back exam: absent: paraspinal tenderness, rash noted, tenderness - Neurological Exam Neurological exam: Alert, CN II-XII Intact, Oriented x3 - Psychiatric Exam Psychiatric exam: Normal Affect, Normal Mood - Skin Skin Exam: Intact, Normal Color Results - Vital Signs Recent Vital Signs: Last Vital Signs Temp 98.3 F 04/30/17 16:09 Pulse 90 04/30/17 16:09 Resp 20 04/30/17 16:09 BP 106/64 04/30/17 16:09 Pulse Ox 94 L 04/30/17 16:09 - Labs Result Diagrams: 04/22/17 11:03 04/22/17 10:30 Assessment & Plan - Assessment and Plan (Free Text) Assessment: Shortness of Breath patient has history of COPD likely secondary to COPD exacerbation from pneumonia Leukocytosis of 18.3, Neutrophils 86.1%, Bands 7, afebrile CXR: no acute disease or interval change f/u sputum culture, blood culture, urine culture Continue Duoneb treatments RQ4h prn for shortness of breath Start Rocephin 1 gm IVPB q24h and Azithromycin 500 mg IVPB q24h Continue Nicotine patch TD daily Chest Pain f/u VEGA and serial EKGs Lipid Panel and hemoglobin a1c ordered Major Depressive Disorder without psychotic features Psychiatry, Dr. Muse, consulted to continue management 1:1 observation for suicidal ideation Mirtazapine 30 mg po HS Sertraline 100 mg po daily Trazodone 50 mg po HS Nausea/Vomiting Zofran 4 mg po q6 PRN History of Ulcer Perforation/Upper GI Bleed Start Protonix 20 mg po daily History of Shingles Continue home medication Gabapentin 100 mg po BID Prophylaxis Heart Healthy Diet SCDs Protonix - Date & Time Date: 04/30/17 Time: 16:38 <Bakari Benson - Last Filed: 04/30/17 17:18> Results - Vital Signs Recent Vital Signs: Last Vital Signs Temp 98.3 F 04/30/17 16:11 Pulse 88 04/30/17 16:11 Resp 18 04/30/17 16:11 BP 131/78 04/30/17 16:11 Pulse Ox 94 L 04/30/17 16:11 - Labs Result Diagrams: 04/22/17 11:03 04/22/17 10:30 Attending/Attestation - Attestation I have personally seen and examined this patient.: Yes I have fully participated in the care of the patient.: Yes I have reviewed all pertinent clinical information: Yes Notes (Text): 04/30/17 17:17 Patient was seen and examined at bedside with the resident the time of admission He was admitted for major depressive disorder but he is found to have a cough with expectoration and elevated WBC count with the bandemia We will admit the patient to medical floor for pneumonia and COPD exacerbation I discussed the plan of care with the resident and agree with the above history and physical and assessment/plan by the resident.
[2017-04-30 18:36] LABS: RBC URINE 2 /hpf (0-3); TRANSITIONAL EPITHIAL < 1 /hpf (0-3); URINE BACTERIA RARE (<OCC); URINE BILIRUBIN NEGATIVE (NEGATIVE); URINE BLOOD NEGATIVE (NEGATIVE); URINE COLOR Yellow (YELLOW); URINE GLUCOSE (UA) NORMAL (Normal); URINE KETONE NEGATIVE (NEGATIVE); URINE LEUKOCYTE ESTERASE NEGATIVE Leu/uL (Negative); URINE PROTEIN NEGATIVE (NEGATIVE); URINE UROBILINOGEN NORMAL mg/dL (0.2-1.0); WBC URINE 3 /hpf (0-5)
[2017-04-30 19:00] LABS: LEGIONELLA AG URINE NEGATIVE (NEGATIVE)
[2017-04-30] MEDS: Albuterol-Ipratrop 3 mg / 0.5 (3 ml) UD INH PRN (20:58)
[2017-05-01] MEDS: Albuterol-Ipratrop 3 mg / 0.5 (3 ml) UD INH PRN ×3 (03:32→19:30)
[2017-05-01 08:22] LABS: BASO # 0.1 K/uL (0.0-0.2); BASO % 0.3 % (0.0-2.0); EOS # 0.1 K/uL (0.0-0.7); EOS % 0.4 % (0.0-4.0); HEMATOCRIT 36.4 % (35.0-51.0); LYMPH # 1.3 K/uL (1.0-4.3); LYMPH % 7.4 % (20.0-40.0); MEAN CELL VOLUME 93.2 fL (80.0-94.0); MEAN CORPUSCULAR HEMOGLOBIN 30.6 pg (27.0-31.0); MEAN CORPUSCULAR HGB CONC 32.9 g/dL (33.0-37.0); MEAN PLATELET VOLUME 8.3 fL (7.2-11.7); MONO # 0.9 K/uL (0.0-0.8); MONO % 5.1 % (0.0-10.0); PLATELET COUNT 215 K/uL (130-400); WHITE BLOOD COUNT 17.8 K/uL (4.8-10.8)
[2017-05-01 08:31] LABS: CHLORIDE 96 mmol/L (98-107)
[2017-05-01 08:32] LABS: POTASSIUM 4.2 mmol/L (3.6-5.2); SODIUM 139 mmol/L (132-148)
[2017-05-01 08:34] LABS: ALB/GLOB RATIO 1.1 (1.0-2.1); AST/SGOT 16 U/L (17-59); BILIRUBIN,TOTAL 0.6 mg/dL (0.2-1.3); CARBON DIOXIDE 33 mmol/L (22-30); GFR AFRICAN-AMERICAN > 60; TOTAL PROTEIN 6.5 g/dL (6.3-8.3)
[2017-05-01 08:35] LABS: ALKALINE PHOSPHATASE 70 U/L (38-126); ALT/SGPT 15 U/L (21-72); BLOOD UREA NITROGEN 9 mg/dL (9-20); CALCIUM 8.3 mg/dl (8.6-10.4); GLUCOSE,RANDOM 139 mg/dL (75-110)
[2017-05-01 08:36] LABS: MAGNESIUM 2.1 mg/dL (1.6-2.3)
[2017-05-01] MEDS ORDERED: Pantoprazole 20 mg EC Tab PO SCH ×2 (10:00)
[2017-05-01] MEDS ORDERED: Enoxaparin 60 mg Syringe SC ONE (10:15)
[2017-05-01] MEDS: Multiple Vitamins Tab PO SCH (10:30)
[2017-05-01] MEDS: Azithromycin 500 MG in Sodium Chloride 0.9% 250 ML IVPB SCH (10:38)
--- NOTE | 2017-05-01 12:11 | PCM.PYCHPN ---
Psychiatric Progress Note - Psychiatric Progress Note Patient seen today, length of contact: 15 min Patient Chief Complaint: I feel so-so but still depressed. Problems Identified/Issues Discussed: Patient seen and evaluated, chart reviewed and discussed with the nurse. The patient states that he is feeling so-so and still feels depressed. He says that he has COPD so he cant fulfill his job duties like he used to so he drinks alcohol which doesnt help. He says that he feels bent out of shape and has a little anxiety as well. He denies H/I and S/I currently but complains of paranoia. He feels that people use him for things such as cigarettes and money. He says that he didnt sleep well and woke up multiple times last night. He denies any medication side effects. He appears to have a flat affect but is kempt and has organized speech. Supportive therapy and psychoeducation were given. Medication Change: Yes (Medical Consult) Medical Record Reviewed: Yes Mental Status Examination - Cognitive Function Orientation: Person, Place, Situation, Time Memory: Intact Attention: WNL Concentration: WNL Association: [facility] Fund of Knowledge: WN - Mood Mood: Depressed (Less than before) - Affect Affect: Depressed - Speech Speech: Appropriate - Formal Thought Process Formal Thought Process: No Impairment - Suicidal Ideation Suicidal Ideation: No - Homicidal Ideation Homicidal Ideation: No Goal/Treatment Plan - Goal/Treatment Plan Need for Continued Stay: Remain at risks for inpatient hospitalization, Discharge may exacerbated symptoms, Severe functional impairment Progress Toward Problem(s) and Goals/Treatment Plan: Major depressive disorder recurrent severe without psychotic features CBT Psychoeducation Supportive therapy, group therapy, individual therapy Zoloft 100 mg by mouth daily Remeron 30 mg by mouth daily at bedtime Neurontin 100 mg by mouth 3 times a day Trazodone 50 mg by mouth daily at bedtime Alcohol use disorder severe CBT Psychoeducation Supportive therapy, individual therapy Use [place] for abstinence Alcohol withdrawal uncomplicated CBT Psychoeducation Supportive therapy, individual therapy Librium when necessary Start folic acid/thiamine/multivitamin COPD Continue prescribed medications Monitor signs and symptoms Estimated Date of D/C: 04/30/17
[2017-05-01 12:16] LABS: NEUTROPHIL 83 % (50-75); TOTAL CELLS COUNTED 100
[2017-05-01] MEDS ORDERED: Iodixanol 320 MG/ML 100 ML BOTTLE IV ONE (12:45)
--- NOTE | 2017-05-01 13:58 | CT ---
PROCEDURE: CT Chest with contrast (Pulmonary Angiogram) HISTORY: rule out PE COMPARISON: Comparison made with noncontrast CT scan chest 03/13/2017. TECHNIQUE: Axial computed tomography images were obtained of the chest in the pulmonary arterial phase of enhancement. Coronal and sagittal reformatted images were created and reviewed. Intravenous contrast dose: 100 cc Visipaque 320 contrast Radiation dose: Total exam DLP = 303.96 mGy-cm. This CT exam was performed using one or more of the following dose reduction techniques: Automated exposure control, adjustment of the mA and/or kV according to patient size, and/or use of iterative reconstruction technique. FINDINGS: PULMONARY ARTERIES: The visualized pulmonary trunk, right and left main, lobar segmental and proximal subsegmental branches of the pulmonary arteries are well opacified with no definitive filling defects seen to suggest acute central pulmonary embolus. Pulmonary trunk measures approximately 2.61 cm. AORTA: Thoracic aorta unremarkable without evidence of aneurysm nor with dissection. Some minor partially calcified atherosclerotic changes are present. Ascending thoracic aorta measures approximately 3.5 cm and descending thoracic aorta measures approximately 2 cm. LUNGS: Significant panlobular emphysematous changes again noted. . There are new nodular opacities seen in the anterior margin of the left upper lobe consistent with this patient's history of pneumonia extending inferiorly along the lingular region. . New patchy and nodular opacities present in the left lung base. Scattered nodular and tree-in-bud opacities that were present in the right lower lung field resolved. Few scattered areas of atelectasis also seen in the left upper lobe and lingular region as well. PLEURAL SPACES: Unremarkable. No effusion or pneuomothorax. Small bilateral Bochdalek's hernias are present. HEART: Heart size is within range of normal. No evidence of significant pericardial effusion. LYMPH NODES: Small left hilar lymph node measuring approximately the 10.5 mm. . Interval increase in size mediastinal lymph nodes seen in the left paratracheal region just above level of the grisel measuring approximately 2 cm. Additionally, there may also be prominent the sub carinal lymph node however due to the motion artifact evaluation slightly limited. BONES, CHEST WALL: Chronic appearing endplate deformities predominate involving the mid and lower thoracic segments. Multilevel degenerative spondylosis. OTHER FINDINGS: Re- demonstrated are metallic sutures in the right upper quadrant of IMPRESSION: No evidence of central pulmonary embolus. Increased size left paratracheal lymph node and/or notes. Small left hilar lymph node. Extensive panlobular emphysematous changes. There are new nodular opacities seen in the left upper lobe, lingular region and left lung base. . Some vague nodular opacities in the left upper lobe again noted. Previously noted scattered nodular and tree-in-bud opacities in the right lower lobe resolved. . Follow-up CT scan at interval to resolution recommended. Slight increased size mediastinal lymph node and/or nodes as above. . Small bilateral Bochdalek's hernias. See above discussion for additional findings and details.
--- NOTE | 2017-05-01 15:09 | VASCLAB ---
PROCEDURE: Lower Extremity Venous Duplex Exam. HISTORY: evaluate for DVT PRIORS: None. TECHNIQUE: Bilateral common femoral, femoral, popliteal and posterior tibial, peroneal and great saphenous veins were evaluated. Flow was assessed with color Doppler, compressibility, assessment of phasic flow and augmentation response. Report prepared by Juvenal Riddle, TOM, RVT FINDINGS: RIGHT: 1. Common Femoral Vein: 1.1. Compressibility - Fully compressible: Thrombus - None : Flow - Phasic: Augmentation -Normal: Reflux - None. 2. Femoral Vein: 2.1. Compressibility - Fully compressible: Thrombus - None : Flow - Phasic: Augmentation -Normal: Reflux - None. 3. Popliteal Vein: 3.1. Compressibility - Fully compressible: Thrombus - None : Flow - Phasic: Augmentation -Normal: Reflux - None. 4. Posterior Tibial Vein: 4.1. Compressibility - Fully compressible: Thrombus - None: Flow - Phasic: Augmentation -Normal: Reflux - None. 5. Peroneal Vein: 5.1. Compressibility - Fully compressible: Thrombus - None: Flow - Phasic: Augmentation -Normal: Reflux - None. 6. Great Saphenous Vein: 6.1. Compressibility - Fully compressible: Thrombus - None: Flow - Phasic: Augmentation - Normal: Reflux - None. LEFT: 1. Common Femoral Vein: 1.1. Compressibility - Fully compressible: Thrombus - None: Flow - Phasic: Augmentation -Normal: Reflux - None. 2. Femoral Vein: 2.1. Compressibility - Fully compressible: Thrombus - None: Flow - Phasic: Augmentation -Normal: Reflux - None. 3. Popliteal Vein: 3.1. Compressibility - Fully compressible: Thrombus - None : Flow - Phasic: Augmentation -Normal: Reflux - None. 4. Posterior Tibial Vein: 4.1. Compressibility - Fully compressible: Thrombus - None: Flow - Phasic: Augmentation -Normal: Reflux - None. 5. Peroneal Vein: 5.1. Compressibility - Fully compressible: Thrombus - None: Flow - Phasic: Augmentation -Normal: Reflux - None. 6. Great Saphenous Vein: 6.1. Compressibility - Fully compressible: Thrombus - None: Flow - Phasic: Augmentation - Normal: Reflux - None. OTHER FINDINGS: Right: None significant. Left: None significant. IMPRESSION: Right: No evidence of deep or superficial vein thrombosis of the right lower extremity. Normal valve function noted of the right side. Left: No evidence of deep or superficial vein thrombosis of the left lower extremity. Normal valve function noted of the left side.
--- NOTE | 2017-05-01 15:53 | CP.PCM.PN ---
<AndresDeepthi - Last Filed: 05/01/17 15:50> Subjective - Date & Time of Evaluation Date of Evaluation: 05/01/17 Time of Evaluation: 15:50 - Subjective Subjective: Patient seen and examined at bedside. He continues to complain of severe chest pain with deep inspiration that radiates to his back. Patient complains of cough and wheezing as well as sputum production. He denies fever and chills but continues to feel fatigue and muscle aches. Patient denies nausea, vomiting, abdominal pain, diarrhea, constipation, lower extremity pain and edema. Objective - Vital Signs/Intake and Output Vital Signs (last 24 hours): Temp Pulse Resp BP Pulse Ox 98.4 F 97 H 20 108/66 94 L 05/01/17 00:00 05/01/17 12:30 05/01/17 00:00 05/01/17 00:00 05/01/17 00:00 Intake and Output: 05/01/17 05/01/17 06:59 18:59 Intake Total 550 770 Balance 550 770 - Medications Medications: Current Medications Acetaminophen (Tylenol 325mg Tab) 650 mg PO Q6 PRN PRN Reason: Fever >100.4 F Last Admin: 05/01/17 15:25 Dose: 650 mg Al Hydrox/Mg Hydrox/Simethicone (Maalox 30 Ml) 30 ml PO Q8 PRN PRN Reason: Indigestion / Heartburn Last Admin: 04/29/17 11:22 Dose: 30 ml Albuterol/Ipratropium (Duoneb 3 Mg/0.5 Mg (3 Ml) Ud) 3 ml INH RQ4 PRN PRN Reason: Shortness of Breath Last Admin: 05/01/17 15:34 Dose: 3 ml Gabapentin (Neurontin) 100 mg PO BID [facility] Last Admin: 05/01/17 09:17 Dose: 100 mg Azithromycin 500 mg/ Sodium (Chloride) 250 mls @ 250 mls/hr IVPB DAILY [facility] Last Admin: 05/01/17 10:38 Dose: 250 mls/hr Ceftriaxone Sodium 1 gm/ (Sodium Chloride) 100 mls @ 100 mls/hr IVPB DAILY [facility] Last Admin: 05/01/17 09:25 Dose: 100 mls/hr Mirtazapine (Remeron) 30 mg PO HS [facility] Last Admin: 04/30/17 22:08 Dose: 30 mg Multivitamins (Hexavitamin) 1 tab PO DAILY [facility] Last Admin: 05/01/17 10:30 Dose: 1 tab Nicotine (Nicoderm Cq) 1 patch TD DAILY [facility] Last Admin: 05/01/17 11:37 Dose: Not Given Ondansetron HCl (Zofran Tab) 4 mg PO Q6 PRN PRN Reason: Nausea/Vomiting Last Admin: 04/29/17 15:22 Dose: 4 mg Pantoprazole Sodium (Protonix Ec Tab) 40 mg PO DAILY [facility] Sertraline HCl (Zoloft) 100 mg PO DAILY [facility] Last Admin: 05/01/17 09:16 Dose: 100 mg Trazodone HCl (Desyrel) 50 mg PO HS [facility] Last Admin: 04/30/17 21:54 Dose: 50 mg - Labs Labs: 05/01/17 08:16 05/01/17 08:16 - Constitutional Appears: Non-toxic, No Acute Distress - Head Exam Head Exam: ATRAUMATIC, NORMAL INSPECTION, NORMOCEPHALIC - Eye Exam Eye Exam: EOMI, Normal appearance, PERRL - ENT Exam ENT Exam: Mucous Membranes Moist - Neck Exam Neck Exam: Full ROM, Normal Inspection. absent: Tenderness - Respiratory Exam Respiratory Exam: Rhonchi, Wheezes. absent: Chest Wall Tenderness - Cardiovascular Exam Cardiovascular Exam: Tachycardia, +S1, +S2. absent: Bradycardia - GI/Abdominal Exam GI & Abdominal Exam: Soft. absent: Firm, Guarding, Tenderness - Extremities Exam Extremities Exam: Full ROM, Normal Inspection. absent: Pedal Edema, Tenderness - Neurological Exam Neurological Exam: Alert, Awake, Oriented x3 - Psychiatric Exam Psychiatric exam: Anxious - Skin Skin Exam: Intact, Normal Color Assessment and Plan - Assessment and Plan (Free Text) Assessment: Pneumonia Chest CT: No evidence of central pulmonary embolus. Increased size left paratracheal lymph node and/or notes. Small left hilar lymph node. Extensive panlobular emphysematous changes. There are new nodular opacities seen in the left upper lobe, lingular region and left lung base. Some vague nodular opacities in the left upper lobe again noted. Previously noted scattered nodular and tree-in-bud opacities in the right lower lobe resolved. Slight increased size mediastinal lymph node and/or nodes as above. d-dimer elevated: 685, CTA negative for PE, Duplex Scan of LE negative for DVT Leukocytosis of 17.8, Neutrophils 86.8%, Bands 5, afebrile CXR: no acute disease or interval change f/u sputum culture, blood culture Urine L. pneum negative, mycoplasma pneum negative Continue Duoneb treatments RQ4h prn for shortness of breath Continue Rocephin 1 gm IVPB q24h and Azithromycin 500 mg IVPB q24h Continue Nicotine patch TD daily Chest Pain Troponin I negative EKG: NSR Lipid Panel and hemoglobin a1c ordered f/u Echo Major Depressive Disorder without psychotic features Psychiatry, Dr. Muse, consulted to continue management 1:1 observation for suicidal ideation Mirtazapine 30 mg po HS Sertraline 100 mg po daily Trazodone 50 mg po HS Nausea/Vomiting Zofran 4 mg po q6 PRN History of Ulcer Perforation/Upper GI Bleed Continue Protonix 20 mg po daily History of Shingles Continue home medication Gabapentin 100 mg po BID Prophylaxis Heart Healthy Diet SCDs Protonix <Bakari Benson M - Last Filed: 05/01/17 17:57> Objective - Vital Signs/Intake and Output Vital Signs (last 24 hours): Temp Pulse Resp BP Pulse Ox 98.5 F 84 20 112/62 95 05/01/17 15:10 05/01/17 15:10 05/01/17 15:10 05/01/17 15:10 05/01/17 15:10 Intake and Output: 05/01/17 05/01/17 06:59 18:59 Intake Total 550 770 Balance 550 770 - Medications Medications: Current Medications Acetaminophen (Tylenol 325mg Tab) 650 mg PO Q6 PRN PRN Reason: Fever >100.4 F Last Admin: 05/01/17 15:25 Dose: 650 mg Al Hydrox/Mg Hydrox/Simethicone (Maalox 30 Ml) 30 ml PO Q8 PRN PRN Reason: Indigestion / Heartburn Last Admin: 04/29/17 11:22 Dose: 30 ml Albuterol/Ipratropium (Duoneb 3 Mg/0.5 Mg (3 Ml) Ud) 3 ml INH RQ4 PRN PRN Reason: Shortness of Breath Last Admin: 05/01/17 15:34 Dose: 3 ml Gabapentin (Neurontin) 100 mg PO BID [facility] Last Admin: 05/01/17 09:17 Dose: 100 mg Azithromycin 500 mg/ Sodium (Chloride) 250 mls @ 250 mls/hr IVPB DAILY [facility] Last Admin: 05/01/17 10:38 Dose: 250 mls/hr Ceftriaxone Sodium 1 gm/ (Sodium Chloride) 100 mls @ 100 mls/hr IVPB DAILY [facility] Last Admin: 05/01/17 09:25 Dose: 100 mls/hr Mirtazapine (Remeron) 30 mg PO HS [facility] Last Admin: 04/30/17 22:08 Dose: 30 mg Multivitamins (Hexavitamin) 1 tab PO DAILY [facility] Last Admin: 05/01/17 10:30 Dose: 1 tab Nicotine (Nicoderm Cq) 1 patch TD DAILY [facility] Last Admin: 05/01/17 11:37 Dose: Not Given Ondansetron HCl (Zofran Tab) 4 mg PO Q6 PRN PRN Reason: Nausea/Vomiting Last Admin: 04/29/17 15:22 Dose: 4 mg Pantoprazole Sodium (Protonix Ec Tab) 40 mg PO DAILY [facility] Sertraline HCl (Zoloft) 100 mg PO DAILY [facility] Last Admin: 05/01/17 09:16 Dose: 100 mg Trazodone HCl (Desyrel) 50 mg PO HS [facility] Last Admin: 04/30/17 21:54 Dose: 50 mg - Labs Labs: 05/01/17 08:16 05/01/17 08:16 Attending/Attestation - Attestation I have personally seen and examined this patient.: Yes I have fully participated in the care of the patient.: Yes I have reviewed all pertinent clinical information, including history, physical exam and plan: Yes Notes (Text): 05/01/17 17:57 Patient was seen and examined at bedside with the resident at an still has cough and expectoration CT scan of the chest the done because of elevated d-dimer but negative for pulmonary embolus of We will continue management for pneumonia I discussed the plan of care with the resident and agree with the above history and physical and assessment/plan the resident.
--- NOTE | 2017-05-02 05:43 | CP.PCM.PN ---
<WendyDeepthi blue - Last Filed: 05/02/17 12:44> Subjective - Date & Time of Evaluation Date of Evaluation: 05/02/17 Time of Evaluation: 05:42 - Subjective Subjective: The patient was seen and examined at bedside. The patient reports continued pain on inspiration associated with mild shortness of breath, cough, and continued sputum production. He is requesting stronger pain medications because his pain is not being well controlled and is interfering with his sleep and day to day activities. He states that he is not seeking narcotics and is requesting a medication stronger than Acetaminophen to control his pain. He states that the chest pain also occurs when he strains while passing a bowel movement. He adds that his employer came to visit him yesterday and is requesting several short- and long-term disability forms to be filled out. The patient denies nausea/vomiting, fever/chills, palpitations, diarrhea/constipation, and abdominal pain. Objective - Vital Signs/Intake and Output Vital Signs (last 24 hours): Temp Pulse Resp BP Pulse Ox 98.9 F 97 H 20 131/72 94 L 05/01/17 23:15 05/01/17 23:15 05/01/17 23:15 05/01/17 23:15 05/01/17 23:15 Intake and Output: 05/01/17 05/02/17 18:59 06:59 Intake Total 770 300 Balance 770 300 - Medications Medications: Current Medications Acetaminophen (Tylenol 325mg Tab) 650 mg PO Q6 PRN PRN Reason: Fever >100.4 F Last Admin: 05/01/17 15:25 Dose: 650 mg Al Hydrox/Mg Hydrox/Simethicone (Maalox 30 Ml) 30 ml PO Q8 PRN PRN Reason: Indigestion / Heartburn Last Admin: 04/29/17 11:22 Dose: 30 ml Albuterol/Ipratropium (Duoneb 3 Mg/0.5 Mg (3 Ml) Ud) 3 ml INH RQ4 PRN PRN Reason: Shortness of Breath Last Admin: 05/01/17 19:30 Dose: 3 ml Gabapentin (Neurontin) 100 mg PO BID [facility] Last Admin: 05/01/17 18:35 Dose: 100 mg Azithromycin 500 mg/ Sodium (Chloride) 250 mls @ 250 mls/hr IVPB DAILY [facility] Last Admin: 05/01/17 10:38 Dose: 250 mls/hr Ceftriaxone Sodium 1 gm/ (Sodium Chloride) 100 mls @ 100 mls/hr IVPB DAILY [facility] Last Admin: 05/01/17 09:25 Dose: 100 mls/hr Mirtazapine (Remeron) 30 mg PO HS [facility] Last Admin: 05/01/17 22:34 Dose: 30 mg Multivitamins (Hexavitamin) 1 tab PO DAILY [facility] Last Admin: 05/01/17 10:30 Dose: 1 tab Nicotine (Nicoderm Cq) 1 patch TD DAILY [facility] Last Admin: 05/01/17 11:37 Dose: Not Given Ondansetron HCl (Zofran Tab) 4 mg PO Q6 PRN PRN Reason: Nausea/Vomiting Last Admin: 04/29/17 15:22 Dose: 4 mg Pantoprazole Sodium (Protonix Ec Tab) 40 mg PO DAILY [facility] Sertraline HCl (Zoloft) 100 mg PO DAILY [facility] Last Admin: 05/01/17 09:16 Dose: 100 mg Trazodone HCl (Desyrel) 50 mg PO [facility] Last Admin: 05/01/17 22:34 Dose: 50 mg - Labs Labs: 05/01/17 08:16 05/01/17 08:16 - Constitutional Appears: Non-toxic, No Acute Distress - Head Exam Head Exam: ATRAUMATIC, NORMOCEPHALIC - Eye Exam Eye Exam: EOMI, PERRL - ENT Exam ENT Exam: Mucous Membranes Moist - Neck Exam Neck Exam: Normal Inspection - Respiratory Exam Respiratory Exam: Chest Wall Tenderness, Wheezes, NORMAL BREATHING PATTERN. absent: Clear to Ausculation Bilateral - Cardiovascular Exam Cardiovascular Exam: RRR, +S1, +S2. absent: Bradycardia, Tachycardia - GI/Abdominal Exam GI & Abdominal Exam: Soft, Normal Bowel Sounds. absent: Distended, Tenderness - Extremities Exam Extremities Exam: Normal Inspection. absent: Pedal Edema, Tenderness - Neurological Exam Neurological Exam: Alert, Awake, CN II-XII Intact, Oriented x3 - Psychiatric Exam Psychiatric exam: Normal Affect, Normal Mood - Skin Skin Exam: Intact, Normal Color, Warm Assessment and Plan - Assessment and Plan (Free Text) Assessment: Pneumonia Chest CT: No evidence of central pulmonary embolus. Increased size left paratracheal lymph node and/or notes. Small left hilar lymph node. Extensive panlobular emphysematous changes. There are new nodular opacities seen in the left upper lobe, lingular region and left lung base. Some vague nodular opacities in the left upper lobe again noted. Previously noted scattered nodular and tree-in-bud opacities in the right lower lobe resolved. Slight increased size mediastinal lymph node and/or nodes as above. d-dimer elevated: 685, CTA negative for PE, Duplex Scan of LE negative for DVT Leukocytosis of 17.8, Neutrophils 86.8%, Bands 5, afebrile CXR: no acute disease or interval change f/u sputum culture, blood culture Urine L. pneum negative, mycoplasma pneum negative Continue Duoneb treatments RQ4h prn for shortness of breath Continue Rocephin 1 gm IVPB q24h and Azithromycin 500 mg IVPB q24h Start Solumedrol 40 mg IVP q12h Continue Nicotine patch TD daily Chest Pain Troponin I negative EKG: NSR Lipid Panel and hemoglobin a1c ordered f/u Echo Start Ultram 25 mg po TID Major Depressive Disorder without psychotic features Psychiatry, Dr. Muse, consulted to continue management 1:1 observation for suicidal ideation Mirtazapine 30 mg po HS Sertraline 100 mg po daily Trazodone 50 mg po HS Nausea/Vomiting Zofran 4 mg po q6 PRN History of Ulcer Perforation/Upper GI Bleed Continue Protonix 20 mg po daily History of Shingles Continue home medication Gabapentin 100 mg po BID Prophylaxis Heart Healthy Diet SCDs Protonix <Bakari Benson M - Last Filed: 05/02/17 15:27> Objective - Vital Signs/Intake and Output Vital Signs (last 24 hours): Temp Pulse Resp BP Pulse Ox 99 F 99 H 20 113/68 94 L 05/02/17 07:00 05/02/17 08:41 05/02/17 07:00 05/02/17 07:00 05/02/17 07:00 Intake and Output: 05/02/17 05/02/17 06:59 18:59 Intake Total 300 300 Output Total 200 Balance 100 300 - Medications Medications: Current Medications Acetaminophen (Tylenol 325mg Tab) 650 mg PO Q6 PRN PRN Reason: Fever >100.4 F Last Admin: 05/01/17 15:25 Dose: 650 mg Al Hydrox/Mg Hydrox/Simethicone (Maalox 30 Ml) 30 ml PO Q8 PRN PRN Reason: Indigestion / Heartburn Last Admin: 04/29/17 11:22 Dose: 30 ml Albuterol/Ipratropium (Duoneb 3 Mg/0.5 Mg (3 Ml) Ud) 3 ml INH RQ4 PRN PRN Reason: Shortness of Breath Last Admin: 05/02/17 12:10 Dose: 3 ml Gabapentin (Neurontin) 100 mg PO BID [facility] Last Admin: 05/02/17 09:36 Dose: 100 mg Azithromycin 500 mg/ Sodium (Chloride) 250 mls @ 250 mls/hr IVPB DAILY [facility] Last Admin: 05/02/17 10:58 Dose: 250 mls/hr Ceftriaxone Sodium 1 gm/ (Sodium Chloride) 100 mls @ 100 mls/hr IVPB DAILY [facility] Last Admin: 05/02/17 09:35 Dose: 100 mls/hr Methylprednisolone (Solu-Medrol) 40 mg IVP Q12 [facility] Mirtazapine (Remeron) 30 mg PO [facility] Last Admin: 05/01/17 22:34 Dose: 30 mg Multivitamins (Hexavitamin) 1 tab PO DAILY [facility] Last Admin: 05/02/17 09:36 Dose: 1 tab Nicotine (Nicoderm Cq) 1 patch TD DAILY [facility] Last Admin: 05/02/17 09:36 Dose: 1 patch Ondansetron HCl (Zofran Tab) 4 mg PO Q6 PRN PRN Reason: Nausea/Vomiting Last Admin: 04/29/17 15:22 Dose: 4 mg Pantoprazole Sodium (Protonix Ec Tab) 40 mg PO DAILY [facility] Last Admin: 05/02/17 09:35 Dose: 40 mg Sertraline HCl (Zoloft) 100 mg PO DAILY [facility] Last Admin: 05/02/17 09:35 Dose: 100 mg Tramadol HCl (Ultram) 25 mg PO TID PRN PRN Reason: Pain, moderate (4-7) Last Admin: 05/02/17 13:22 Dose: 25 mg Trazodone HCl (Desyrel) 50 mg PO HS [facility] Last Admin: 05/01/17 22:34 Dose: 50 mg - Labs Labs: 05/02/17 06:02 05/02/17 06:02 Attending/Attestation - Attestation I have personally seen and examined this patient.: Yes I have fully participated in the care of the patient.: Yes I have reviewed all pertinent clinical information, including history, physical exam and plan: Yes Notes (Text): 05/02/17 15:25 Patient was seen and examined at bedside with the resident Still complaining of cough with expectoration Complains of chest pain However pain is pleuritic in nature We will continue IV antibiotics for pneumonia We will give the patient pain medication as needed I discussed the plan of care with the resident and agree with the above history and physical and assessment/plan but the resident.
[2017-05-02 06:14] LABS: BASO % 0.3 % (0.0-2.0); EOS # 0.2 K/uL (0.0-0.7); EOS % 1.4 % (0.0-4.0); HEMATOCRIT 33.7 % (35.0-51.0); LYMPH # 1.2 K/uL (1.0-4.3); LYMPH % 9.6 % (20.0-40.0); MEAN CELL VOLUME 92.9 fL (80.0-94.0); MEAN CORPUSCULAR HEMOGLOBIN 31.3 pg (27.0-31.0); MEAN CORPUSCULAR HGB CONC 33.7 g/dL (33.0-37.0); MEAN PLATELET VOLUME 8.4 fL (7.2-11.7); MONO # 0.9 K/uL (0.0-0.8); MONO % 7.4 % (0.0-10.0); PLATELET COUNT 226 K/uL (130-400); RED CELL DISTRIBUTION WIDTH 13.9 % (11.5-14.5); WHITE BLOOD COUNT 12.5 K/uL (4.8-10.8)
[2017-05-02 06:26] LABS: CHLORIDE 100 mmol/L (98-107)
[2017-05-02 06:27] LABS: POTASSIUM 3.8 mmol/L (3.6-5.2); SODIUM 137 mmol/L (132-148)
[2017-05-02 06:29] LABS: BILIRUBIN,TOTAL 0.5 mg/dL (0.2-1.3); CARBON DIOXIDE 29 mmol/L (22-30); GFR AFRICAN-AMERICAN > 60; TOTAL PROTEIN 6.2 g/dL (6.3-8.3)
[2017-05-02 06:30] LABS: ALKALINE PHOSPHATASE 69 U/L (38-126); ALT/SGPT 15 U/L (21-72); AST/SGOT 17 U/L (17-59); BLOOD UREA NITROGEN 10 mg/dL (9-20); CALCIUM 8.2 mg/dl (8.6-10.4); GLUCOSE,RANDOM 88 mg/dL (75-110); MAGNESIUM 2.1 mg/dL (1.6-2.3)
[2017-05-02] MEDS: Albuterol-Ipratrop 3 mg / 0.5 (3 ml) UD INH PRN ×3 (07:40→19:43)
[2017-05-02 09:35] LABS: EOSINOPHIL 1 % (0-4); NEUTROPHIL 81 % (50-75); TOTAL CELLS COUNTED 100
[2017-05-02] MEDS: Pantoprazole 40 mg EC Tab PO SCH (09:35)
[2017-05-02] MEDS: Multiple Vitamins Tab PO SCH (09:36)
[2017-05-02] MEDS: Azithromycin 500 MG in Sodium Chloride 0.9% 250 ML IVPB SCH (10:58)
--- NOTE | 2017-05-02 12:06 | CARD ---
APPROVED REPORT EKG Measurement Heart [id number] <Conclusion> Normal sinus rhythm with sinus arrhythmia Normal ECG
[2017-05-02] MEDS: Tramadol 25 mg PO PRN ×2 (13:22→22:58)
[2017-05-02] MEDS: MethylPREDNISolone 40 mg Vial IVP SCH (22:29)
[2017-05-03] MEDS: Albuterol-Ipratrop 3 mg / 0.5 (3 ml) UD INH PRN (07:45)
[2017-05-03 08:07] LABS: BASO % 0.2 % (0.0-2.0); EOS % 0.1 % (0.0-4.0); HEMATOCRIT 35.1 % (35.0-51.0); LYMPH % 7.8 % (20.0-40.0); MEAN CELL VOLUME 92.7 fL (80.0-94.0); MEAN CORPUSCULAR HGB CONC 33.5 g/dL (33.0-37.0); MEAN PLATELET VOLUME 8.4 fL (7.2-11.7); MONO # 0.3 K/uL (0.0-0.8); MONO % 2.1 % (0.0-10.0); PLATELET COUNT 277 K/uL (130-400); WHITE BLOOD COUNT 12.4 K/uL (4.8-10.8)
[2017-05-03 08:17] LABS: CHLORIDE 99 mmol/L (98-107)
[2017-05-03 08:18] LABS: POTASSIUM 4.6 mmol/L (3.6-5.2); SODIUM 136 mmol/L (132-148)
[2017-05-03 08:20] LABS: ALKALINE PHOSPHATASE 66 U/L (38-126); AST/SGOT 18 U/L (17-59); BILIRUBIN,TOTAL 0.5 mg/dL (0.2-1.3); CARBON DIOXIDE 25 mmol/L (22-30); GFR AFRICAN-AMERICAN > 60; TOTAL PROTEIN 6.8 g/dL (6.3-8.3)
[2017-05-03 08:21] LABS: ALT/SGPT 14 U/L (21-72); BLOOD UREA NITROGEN 10 mg/dL (9-20); CALCIUM 8.7 mg/dl (8.6-10.4); GLUCOSE,RANDOM 136 mg/dL (75-110); MAGNESIUM 1.9 mg/dL (1.6-2.3)
[2017-05-03] MEDS: Tramadol 25 mg PO PRN ×2 (08:36→16:23)
[2017-05-03 08:46] LABS: NEUTROPHIL 92 % (50-75); TOTAL CELLS COUNTED 100
[2017-05-03] MEDS: Multiple Vitamins Tab PO SCH (09:12)
[2017-05-03] MEDS: Pantoprazole 40 mg EC Tab PO SCH (09:12)
[2017-05-03] MEDS: MethylPREDNISolone 40 mg Vial IVP SCH ×2 (09:12→22:00)
[2017-05-03] MEDS: Azithromycin 500 MG in Sodium Chloride 0.9% 250 ML IVPB SCH (10:11)
[2017-05-03] MEDS: Albuterol-Ipratrop 3 mg / 0.5 (3 ml) UD INH SCH ×3 (11:52→21:07)
--- NOTE | 2017-05-03 12:12 | CARD ---
APPROVED REPORT EKG Measurement Heart [id number] <Conclusion> Normal sinus rhythm with sinus arrhythmia Normal ECG
--- NOTE | 2017-05-03 13:41 | CP.PCM.PN ---
<AndresDeepthi - Last Filed: 05/03/17 13:36> Subjective - Date & Time of Evaluation Date of Evaluation: 05/03/17 Time of Evaluation: 13:37 - Subjective Subjective: Patient seen and examined at bedside. Patient states his condition feels much improved and chest pain relieved with Ultram. He also reports cough is improving and he is less productive of sputum. Patient denies fever and chills and ambulating without issue. He is tolerating diet well and denies abdominal pain, nausea, and vomiting. Patient denies dysuria or increased urinary frequency. Objective - Vital Signs/Intake and Output Vital Signs (last 24 hours): Temp Pulse Resp BP Pulse Ox 97.9 F 85 18 122/74 94 L 05/03/17 07:45 05/03/17 07:45 05/03/17 07:45 05/03/17 07:45 05/03/17 07:45 - Medications Medications: Current Medications Acetaminophen (Tylenol 325mg Tab) 650 mg PO Q6 PRN PRN Reason: Fever >100.4 F Last Admin: 05/01/17 15:25 Dose: 650 mg Al Hydrox/Mg Hydrox/Simethicone (Maalox 30 Ml) 30 ml PO Q8 PRN PRN Reason: Indigestion / Heartburn Last Admin: 04/29/17 11:22 Dose: 30 ml Albuterol/Ipratropium (Duoneb 3 Mg/0.5 Mg (3 Ml) Ud) 3 ml INH RQ4 [facility] Last Admin: 05/03/17 11:52 Dose: 3 ml Gabapentin (Neurontin) 100 mg PO BID [facility] Last Admin: 05/03/17 09:12 Dose: 100 mg Azithromycin 500 mg/ Sodium (Chloride) 250 mls @ 250 mls/hr IVPB DAILY [facility] Last Admin: 05/03/17 10:11 Dose: 250 mls/hr Ceftriaxone Sodium 1 gm/ (Sodium Chloride) 100 mls @ 100 mls/hr IVPB DAILY [facility] Last Admin: 05/03/17 09:12 Dose: 100 mls/hr Methylprednisolone (Solu-Medrol) 40 mg IVP Q12 [facility] Last Admin: 05/03/17 09:12 Dose: 40 mg Mirtazapine (Remeron) 30 mg PO HS [facility] Last Admin: 05/02/17 22:29 Dose: 30 mg Multivitamins (Hexavitamin) 1 tab PO DAILY [facility] Last Admin: 05/03/17 09:12 Dose: 1 tab Nicotine (Nicoderm Cq) 1 patch TD DAILY [facility] Last Admin: 05/03/17 09:13 Dose: Not Given Ondansetron HCl (Zofran Tab) 4 mg PO Q6 PRN PRN Reason: Nausea/Vomiting Last Admin: 04/29/17 15:22 Dose: 4 mg Pantoprazole Sodium (Protonix Ec Tab) 40 mg PO DAILY [facility] Last Admin: 05/03/17 09:12 Dose: 40 mg Sertraline HCl (Zoloft) 100 mg PO DAILY [facility] Last Admin: 05/03/17 09:12 Dose: 100 mg Tramadol HCl (Ultram) 25 mg PO TID PRN PRN Reason: Pain, moderate (4-7) Last Admin: 05/03/17 08:36 Dose: 25 mg Trazodone HCl (Desyrel) 50 mg PO HS [facility] Last Admin: 05/02/17 22:29 Dose: 50 mg - Labs Labs: 05/03/17 08:03 05/03/17 08:03 - Constitutional Appears: Non-toxic, No Acute Distress - Head Exam Head Exam: ATRAUMATIC, NORMAL INSPECTION, NORMOCEPHALIC - Eye Exam Eye Exam: EOMI, Normal appearance, PERRL - ENT Exam ENT Exam: Mucous Membranes Moist - Neck Exam Neck Exam: Full ROM, Normal Inspection - Respiratory Exam Respiratory Exam: Wheezes, NORMAL BREATHING PATTERN. absent: Rhonchi - Cardiovascular Exam Cardiovascular Exam: +S1, +S2. absent: Tachycardia - GI/Abdominal Exam GI & Abdominal Exam: Soft, Normal Bowel Sounds. absent: Firm, Rigid, Tenderness - Extremities Exam Extremities Exam: Normal Inspection. absent: Full ROM, Tenderness - Back Exam Back Exam: NORMAL INSPECTION - Neurological Exam Neurological Exam: Alert, Awake, Oriented x3 - Psychiatric Exam Psychiatric exam: Normal Affect, Normal Mood - Skin Skin Exam: Intact, Normal Color Assessment and Plan - Assessment and Plan (Free Text) Assessment: Pneumonia Leukocytosis 12.4, Neutrophils 89.8%; afebrile Chest CT: No evidence of central pulmonary embolus. Increased size left paratracheal lymph node and/or notes. Small left hilar lymph node. Extensive panlobular emphysematous changes. There are new nodular opacities seen in the left upper lobe, lingular region and left lung base. Some vague nodular opacities in the left upper lobe again noted. Previously noted scattered nodular and tree-in-bud opacities in the right lower lobe resolved. Slight increased size mediastinal lymph node and/or nodes as above. d-dimer elevated: 685, CTA negative for PE, Duplex Scan of LE negative for DVT Leukocytosis of 17.8, Neutrophils 86.8%, Bands 5, afebrile CXR: no acute disease or interval change sputum culture -oropharyngeal contaminant, repeat sputum culture ordered blood culture - no growth after 48 hours Urine L. pneum negative, mycoplasma pneum negative Continue Duoneb treatments RQ4h prn for shortness of breath Continue Rocephin 1 gm IVPB q24h and Azithromycin 500 mg IVPB q24h Continue Ultram 50 mg po HS Continue Nicotine patch TD daily Chest Pain Troponin I negative EKG: NSR Lipid Panel and hemoglobin a1c ordered f/u Echo Major Depressive Disorder without psychotic features Psychiatry, Dr. Muse, consulted to continue management 1:1 observation for suicidal ideation Mirtazapine 30 mg po HS Sertraline 100 mg po daily Trazodone 50 mg po HS Nausea/Vomiting Zofran 4 mg po q6 PRN History of Ulcer Perforation/Upper GI Bleed Continue Protonix 20 mg po daily History of Shingles Continue home medication Gabapentin 100 mg po BID Prophylaxis Heart Healthy Diet SCDs Protonix <Bakari Benson M - Last Filed: 05/03/17 16:38> Objective - Vital Signs/Intake and Output Vital Signs (last 24 hours): Temp Pulse Resp BP Pulse Ox 98 F 83 18 104/64 95 05/03/17 15:15 05/03/17 15:15 05/03/17 15:15 05/03/17 15:15 05/03/17 15:15 - Medications Medications: Current Medications Acetaminophen (Tylenol 325mg Tab) 650 mg PO Q6 PRN PRN Reason: Fever >100.4 F Last Admin: 05/01/17 15:25 Dose: 650 mg Al Hydrox/Mg Hydrox/Simethicone (Maalox 30 Ml) 30 ml PO Q8 PRN PRN Reason: Indigestion / Heartburn Last Admin: 04/29/17 11:22 Dose: 30 ml Albuterol/Ipratropium (Duoneb 3 Mg/0.5 Mg (3 Ml) Ud) 3 ml INH RQ4 [facility] Last Admin: 05/03/17 16:03 Dose: 3 ml Gabapentin (Neurontin) 100 mg PO BID [facility] Last Admin: 05/03/17 09:12 Dose: 100 mg Azithromycin 500 mg/ Sodium (Chloride) 250 mls @ 250 mls/hr IVPB DAILY [facility] Last Admin: 05/03/17 10:11 Dose: 250 mls/hr Ceftriaxone Sodium 1 gm/ (Sodium Chloride) 100 mls @ 100 mls/hr IVPB DAILY [facility] Last Admin: 05/03/17 09:12 Dose: 100 mls/hr Methylprednisolone (Solu-Medrol) 40 mg IVP Q12 [facility] Last Admin: 05/03/17 09:12 Dose: 40 mg Mirtazapine (Remeron) 30 mg PO HS [facility] Last Admin: 05/02/17 22:29 Dose: 30 mg Multivitamins (Hexavitamin) 1 tab PO DAILY [facility] Last Admin: 05/03/17 09:12 Dose: 1 tab Nicotine (Nicoderm Cq) 1 patch TD DAILY [facility] Last Admin: 05/03/17 09:13 Dose: Not Given Ondansetron HCl (Zofran Tab) 4 mg PO Q6 PRN PRN Reason: Nausea/Vomiting Last Admin: 04/29/17 15:22 Dose: 4 mg Pantoprazole Sodium (Protonix Ec Tab) 40 mg PO DAILY [facility] Last Admin: 05/03/17 09:12 Dose: 40 mg Sertraline HCl (Zoloft) 100 mg PO DAILY [facility] Last Admin: 05/03/17 09:12 Dose: 100 mg Tramadol HCl (Ultram) 25 mg PO TID PRN PRN Reason: Pain, moderate (4-7) Last Admin: 05/03/17 16:23 Dose: 25 mg Trazodone HCl (Desyrel) 50 mg PO HS [facility] Last Admin: 05/02/17 22:29 Dose: 50 mg - Labs Labs: 05/03/17 08:03 05/03/17 08:03 Attending/Attestation - Attestation I have personally seen and examined this patient.: Yes I have fully participated in the care of the patient.: Yes I have reviewed all pertinent clinical information, including history, physical exam and plan: Yes Notes (Text): 05/03/17 16:38 Patient was seen and examined at bedside with the resident Patient states that breathing is improved slightly Patient still has the wheezing and expectoration but it is improving We will continue current medical management with IV steroids and IV antibiotics I discussed the plan of care with the resident and agree with the above history and physical and assessment/plan by the resident.
--- NOTE | 2017-05-03 18:55 | CARD ---
APPROVED REPORT EXAM: Two-dimensional and M-mode echocardiogram with Doppler and color Doppler. Other Information Quality : GoodRhythm : NSR INDICATION Dyspnea Chest Pain COPD PNEUMONIA, ALCOHOL ABUSE RISK FACTORS Smoking M-Mode DIMENSIONS RVDd1.59 (2.1-3.2cm)Left Atrium (MM)2.84 (2.5-4.0cm) IVSd1.04 (0.7-1.1cm)Aortic Root3.17 (2.2-3.7cm) LVDd4.52 (4.0-5.6cm)Aortic Cusp Exc.2.03 (1.5-2.0cm) PWd1.17 (0.7-1.1cm)FS (%) 48 % LVDs2.34 (2.0-3.8cm)LVEF (%)80 (>50%) Mitral Valve MV E Ebondnhm15.5cm/sMV A Epnnajrn94.7cm/sE/A ratio1.2 TDI E/Lateral E'0.0E/Medial E'0.0 Tricuspid Valve TR Peak Jrwoeuqt13im/sTR Peak Gr.[id number] <Conclusion> tds. poor window. la,lv & ra rv size appears normal. normal lv wall motion,thickness,systolic & diastolic funciton with lvef of about 70%. mitral & tv appears normal. aortic valve & pv not well seen,probably normal. no pericardial effusion. joel may be of help if needed.
[2017-05-04 00:03] VITALS: BP 118/74; RESP 20
[2017-05-04] MEDS: Albuterol-Ipratrop 3 mg / 0.5 (3 ml) UD INH SCH ×4 (00:16→11:28)
--- NOTE | 2017-05-04 01:48 | CP.PCM.PN ---
<BradalyssaDiaz - Last Filed: 05/04/17 05:27> Subjective - Date & Time of Evaluation Date of Evaluation: 05/04/17 Time of Evaluation: 01:46 - Subjective Subjective: PGY-1 medicine progress note Patient seen and examined at bedside. Patient found resting comfortably in bed. He reports breathing and cough have improved since admission. Sputum cup noted at bedside- pt states volume also has decreased and "become clearer." Patient denies fever and chills and ambulating without issue. He is tolerating diet well and denies abdominal pain, nausea, and vomiting. Patient denies dysuria or increased urinary frequency. He denies H/SI. Objective - Vital Signs/Intake and Output Vital Signs (last 24 hours): Temp Pulse Resp BP Pulse Ox 97.9 F 86 20 118/74 98 05/03/17 23:00 05/04/17 00:00 05/03/17 23:00 05/03/17 23:00 05/03/17 23:00 - Medications Medications: Current Medications Acetaminophen (Tylenol 325mg Tab) 650 mg PO Q6 PRN PRN Reason: Fever >100.4 F Last Admin: 05/01/17 15:25 Dose: 650 mg Al Hydrox/Mg Hydrox/Simethicone (Maalox 30 Ml) 30 ml PO Q8 PRN PRN Reason: Indigestion / Heartburn Last Admin: 04/29/17 11:22 Dose: 30 ml Albuterol/Ipratropium (Duoneb 3 Mg/0.5 Mg (3 Ml) Ud) 3 ml INH RQ4 [facility] Last Admin: 05/04/17 00:16 Dose: 3 ml Gabapentin (Neurontin) 100 mg PO BID [facility] Last Admin: 05/03/17 17:32 Dose: 100 mg Azithromycin 500 mg/ Sodium (Chloride) 250 mls @ 250 mls/hr IVPB DAILY [facility] Last Admin: 05/03/17 10:11 Dose: 250 mls/hr Ceftriaxone Sodium 1 gm/ (Sodium Chloride) 100 mls @ 100 mls/hr IVPB DAILY [facility] Last Admin: 05/03/17 09:12 Dose: 100 mls/hr Methylprednisolone (Solu-Medrol) 40 mg IVP Q12 [facility] Last Admin: 05/03/17 22:00 Dose: 40 mg Mirtazapine (Remeron) 30 mg PO HS [facility] Last Admin: 05/03/17 21:58 Dose: 30 mg Multivitamins (Hexavitamin) 1 tab PO DAILY [facility] Last Admin: 05/03/17 09:12 Dose: 1 tab Nicotine (Nicoderm Cq) 1 patch TD DAILY [facility] Last Admin: 05/03/17 09:13 Dose: Not Given Ondansetron HCl (Zofran Tab) 4 mg PO Q6 PRN PRN Reason: Nausea/Vomiting Last Admin: 04/29/17 15:22 Dose: 4 mg Pantoprazole Sodium (Protonix Ec Tab) 40 mg PO DAILY [facility] Last Admin: 05/03/17 09:12 Dose: 40 mg Sertraline HCl (Zoloft) 100 mg PO DAILY [facility] Last Admin: 05/03/17 09:12 Dose: 100 mg Tramadol HCl (Ultram) 25 mg PO TID PRN PRN Reason: Pain, moderate (4-7) Last Admin: 05/03/17 16:23 Dose: 25 mg Trazodone HCl (Desyrel) [address] [facility] Last Admin: 05/03/17 21:58 Dose: 50 mg - Labs Labs: 05/03/17 08:03 05/03/17 08:03 - Additional Findings Additional findings: - Constitutional Appears: Non-toxic, No Acute Distress - Head Exam Head Exam: ATRAUMATIC, NORMAL INSPECTION, NORMOCEPHALIC - Eye Exam Eye Exam: EOMI, Normal appearance, PERRL - ENT Exam ENT Exam: Mucous Membranes Moist - Neck Exam Neck Exam: Full ROM, Normal Inspection - Respiratory Exam Respiratory Exam: Wheezes, NORMAL BREATHING PATTERN. absent: Rhonchi - Cardiovascular Exam Cardiovascular Exam: +S1, +S2. absent: Tachycardia - GI/Abdominal Exam GI & Abdominal Exam: Soft, Normal Bowel Sounds. absent: Firm, Rigid, Tenderness - Extremities Exam Extremities Exam: Normal Inspection. absent: Full ROM, Tenderness - Back Exam Back Exam: NORMAL INSPECTION - Neurological Exam Neurological Exam: Alert, Awake, Oriented x3 - Psychiatric Exam Psychiatric exam: Normal Affect, Normal Mood - Skin Skin Exam: Intact, Normal Color Assessment and Plan - Assessment and Plan (Free Text) Plan: Pneumonia Leukocytosis (05/03/17) 12.4, Neutrophils 89.8%; afebrile Chest CT (05/01/17): No evidence of central pulmonary embolus. Increased size left paratracheal lymph node and/or notes. Small left hilar lymph node. Extensive panlobular emphysematous changes. There are new nodular opacities seen in the left upper lobe, lingular region and left lung base. Some vague nodular opacities in the left upper lobe again noted. Previously noted scattered nodular and tree-in-bud opacities in the right lower lobe resolved. Slight increased size mediastinal lymph node and/or nodes as above. d-dimer elevated: 685, CTA negative for PE, Duplex Scan of LE negative for DVT CXR: no acute disease or interval change sputum culture -oropharyngeal contaminant, repeat sputum culture ordered blood culture - no growth after 48 hours Urine L. pneum negative, mycoplasma pneum negative Continue Duoneb treatments RQ4h prn for shortness of breath Continue Rocephin 1 gm IVPB q24h and Azithromycin 500 mg IVPB q24h Continue Ultram 50 mg po HS Continue Nicotine patch TD daily Chest Pain Troponin I negative EKG: NSR Lipid Panel and hemoglobin a1c ordered Echo (05/03/17): EF 70%, Normal LV wall motion, thickness, and systolic/diastolic fxn (see full report) Major Depressive Disorder without psychotic features Psychiatry, Dr. Muse, consulted to continue management - Discontinued 1:1 observation for suicidal ideation Mirtazapine 30 mg po HS Sertraline 100 mg po daily Trazodone 50 mg po HS Nausea/Vomiting Zofran 4 mg po q6 PRN History of Ulcer Perforation/Upper GI Bleed Continue Protonix 20 mg po daily History of Shingles Continue home medication Gabapentin 100 mg po BID Prophylaxis Heart Healthy Diet SCDs Protonix <Bakari Benson M - Last Filed: 05/04/17 15:31> Objective - Vital Signs/Intake and Output Vital Signs (last 24 hours): Temp Pulse Resp BP Pulse Ox 97.4 F L 63 20 118/74 95 05/04/17 08:05 05/04/17 08:05 05/04/17 08:05 05/03/17 23:00 05/04/17 08:05 Intake and Output: 05/04/17 05/04/17 06:59 18:59 Intake Total 500 Balance 500 - Medications Medications: Current Medications Acetaminophen (Tylenol 325mg Tab) 650 mg PO Q6 PRN PRN Reason: Fever >100.4 F Last Admin: 05/01/17 15:25 Dose: 650 mg Al Hydrox/Mg Hydrox/Simethicone (Maalox 30 Ml) 30 ml PO Q8 PRN PRN Reason: Indigestion / Heartburn Last Admin: 04/29/17 11:22 Dose: 30 ml Albuterol/Ipratropium (Duoneb 3 Mg/0.5 Mg (3 Ml) Ud) 3 ml INH RQ4 [facility] Last Admin: 05/04/17 11:28 Dose: 3 ml Gabapentin (Neurontin) 100 mg PO BID [facility] Last Admin: 05/04/17 09:17 Dose: 100 mg Azithromycin 500 mg/ Sodium (Chloride) 250 mls @ 250 mls/hr IVPB DAILY [facility] Last Admin: 05/04/17 11:07 Dose: 250 mls/hr Ceftriaxone Sodium 1 gm/ (Sodium Chloride) 100 mls @ 100 mls/hr IVPB DAILY [facility] Last Admin: 05/04/17 09:17 Dose: 100 mls/hr Methylprednisolone (Solu-Medrol) 40 mg IVP Q12 [facility] Last Admin: 05/04/17 09:18 Dose: 40 mg Mirtazapine (Remeron) [address] [facility] Last Admin: 05/03/17 21:58 Dose: 30 mg Multivitamins (Hexavitamin) 1 tab PO DAILY [facility] Last Admin: 05/04/17 09:17 Dose: 1 tab Nicotine (Nicoderm Cq) 1 patch TD DAILY [facility] Last Admin: 05/04/17 09:18 Dose: Not Given Ondansetron HCl (Zofran Tab) 4 mg PO Q6 PRN PRN Reason: Nausea/Vomiting Last Admin: 04/29/17 15:22 Dose: 4 mg Pantoprazole Sodium (Protonix Ec Tab) 40 mg PO DAILY [facility] Last Admin: 05/04/17 09:17 Dose: 40 mg Sertraline HCl (Zoloft) 100 mg PO DAILY [facility] Last Admin: 05/04/17 09:17 Dose: 100 mg Tramadol HCl (Ultram) 25 mg PO TID PRN PRN Reason: Pain, moderate (4-7) Last Admin: 05/03/17 16:23 Dose: 25 mg Trazodone HCl (Desyrel) 50 mg PO HS [facility] Last Admin: 05/03/17 21:58 Dose: 50 mg - Labs Labs: 05/03/17 08:03 05/03/17 08:03 Attending/Attestation - Attestation I have personally seen and examined this patient.: Yes I have fully participated in the care of the patient.: Yes I have reviewed all pertinent clinical information, including history, physical exam and plan: Yes Notes (Text): 05/04/17 15:30 Patient was seen and examined at bedside with the resident Patient is a clinically improving Cough and expectoration is significantly decreased and patient stated that he is feeling much stronger and better We will discharge the patient to home after cleared by psychiatry I agree with the above history and physical and assessment/plan by the resident.
[2017-05-04 08:07] VITALS: PULSE 63; TEMP 97.4; O2SAT 95
[2017-05-04] MEDS: Multiple Vitamins Tab PO SCH (09:17)
[2017-05-04] MEDS: Pantoprazole 40 mg EC Tab PO SCH (09:17)
[2017-05-04] MEDS: MethylPREDNISolone 40 mg Vial IVP SCH (09:18)
[2017-05-04] MEDS: Azithromycin 500 MG in Sodium Chloride 0.9% 250 ML IVPB SCH (11:07)
--- NOTE | 2017-05-04 13:26 | PCM.PYCHPN ---
Psychiatric Progress Note - Psychiatric Progress Note Patient seen today, length of contact: 15 min Patient Chief Complaint: I feel so-so but still depressed. Problems Identified/Issues Discussed: Patient seen and evaluated, chart reviewed and discussed with the nurse. The patient reports improvement in his mood and denies any feelings of hopelessness or helplessness. He is hopeful to go back to work and denies any suicidal ideation or homicidal ideation. He is taking medications and denies any side effects. Today he'll be cleared from medical floor. Supportive therapy and psychoeducation were given. Medication Change: No Medical Record Reviewed: Yes Mental Status Examination - Cognitive Function Orientation: Person, Place, Situation, Time Memory: Intact Attention: WNL Concentration: WNL Association: WNL Fund of Knowledge: WNL - Mood Mood: Depressed - Affect Affect: Constricted - Speech Speech: Appropriate, Soft - Formal Thought Process Formal Thought Process: No Impairment - Suicidal Ideation Suicidal Ideation: No - Homicidal Ideation Homicidal Ideation: No Goal/Treatment Plan - Goal/Treatment Plan Need for Continued Stay: Remain at risks for inpatient hospitalization, Discharge may exacerbated symptoms, Severe functional impairment Progress Toward Problem(s) and Goals/Treatment Plan: Major depressive disorder recurrent severe without psychotic features CBT Psychoeducation Supportive therapy, group therapy, individual therapy Zoloft 100 mg by mouth daily Remeron 30 mg by mouth daily at bedtime Neurontin 100 mg by mouth 2 times a day Trazodone 50 mg by mouth daily at bedtime Alcohol use disorder severe CBT Psychoeducation Supportive therapy, individual therapy Use NH for abstinence Alcohol withdrawal uncomplicated CBT Psychoeducation Supportive therapy, individual therapy Librium when necessary Start folic acid/thiamine/multivitamin COPD Continue prescribed medications Monitor signs and symptoms - Smoking Cessation Smoking Cessation Initiated: No
--- NOTE | 2017-05-04 15:52 | CP.PCM.DIS ---
<Dario Ding H - Last Filed: 05/04/17 21:02> Provider - Provider Date of Admission: 04/22/17 12:18 Attending physician: Bakari Benson MD Primary care physician: Dr. Samir ROSARIO Consults: Dr. Heredia Psychiatry Time Spent in preparation of Discharge (in minutes): 30 Hospital Course - Lab Results Lab Results: Micro Results 04/30/17 20:31 Blood Blood Culture - Preliminary NO GROWTH AFTER 3 DAYS 04/30/17 15:15 Blood Blood Culture - Preliminary NO GROWTH AFTER 3 DAYS 05/01/17 14:50 Sputum Gram Stain - Final 05/01/17 14:50 Sputum Sputum Culture - Final 04/30/17 18:34 Urine,Clean Catch Urine Culture - Final No Growth (<1,000 CFU/ML) Most Recent Lab Values WBC 12.4 K/uL (4.8-10.8) H 05/03/17 08:03 RBC 3.79 Mil/uL (4.40-5.90) L 05/03/17 08:03 Hgb 11.7 g/dL (12.0-18.0) L 05/03/17 08:03 Hct 35.1 % (35.0-51.0) 05/03/17 08:03 MCV 92.7 fL (80.0-94.0) 05/03/17 08:03 MCH 31.0 pg (27.0-31.0) 05/03/17 08:03 MCHC 33.5 g/dL (33.0-37.0) 05/03/17 08:03 RDW 14.0 % (11.5-14.5) 05/03/17 08:03 Plt Count 277 K/uL (130-400) 05/03/17 08:03 MPV 8.4 fL (7.2-11.7) 05/03/17 08:03 Neut % (Auto) 89.8 % (50.0-75.0) H 05/03/17 08:03 Lymph % (Auto) 7.8 % (20.0-40.0) L 05/03/17 08:03 Mineral % (Auto) 2.1 % (0.0-10.0) 05/03/17 08:03 Eos % (Auto) 0.1 % (0.0-4.0) 05/03/17 08:03 Baso % (Auto) 0.2 % (0.0-2.0) 05/03/17 08:03 Neut # 11.1 K/uL (1.8-7.0) H 05/03/17 08:03 Lymph # 1.0 K/uL (1.0-4.3) 05/03/17 08:03 Mineral # 0.3 K/uL (0.0-0.8) 05/03/17 08:03 Eos # 0.0 K/uL (0.0-0.7) 05/03/17 08:03 Baso # 0.0 K/uL (0.0-0.2) 05/03/17 08:03 Neutrophils % (Manual) 92 % (50-75) H 05/03/17 08:03 Band Neutrophils % 4 % (0-2) H 05/03/17 08:03 Lymphocytes % (Manual) 2 % (20-40) L 05/03/17 08:03 Monocytes % (Manual) 2 % (0-10) 05/03/17 08:03 Eosinophils % (Manual) 1 % (0-4) 05/02/17 06:02 Platelet Estimate Normal (NORMAL) 05/03/17 08:03 RBC Morphology Normal 05/02/17 06:02 Poikilocytosis (manual Slight 05/03/17 08:03 Ovalocytes Slight 05/03/17 08:03 D-Dimer, Quantitative 685 ng/mlDDU (0-243) H 05/01/17 08:16 Sodium 136 mmol/L (132-148) 05/03/17 08:03 Potassium 4.6 mmol/L (3.6-5.2) 05/03/17 08:03 Chloride 99 mmol/L (98-107) 05/03/17 08:03 Carbon Dioxide 25 mmol/L (22-30) 05/03/17 08:03 Anion Gap 17 (10-20) 05/03/17 08:03 BUN 10 mg/dL (9-20) 05/03/17 08:03 Creatinine 0.6 MG/DL (0.8-1.5) L 05/03/17 08:03 Est GFR ( Amer) > 60 05/03/17 08:03 Est GFR (Non-Af Amer) > 60 05/03/17 08:03 Random Glucose 136 mg/dL (75-110) H 05/03/17 08:03 Calcium 8.7 mg/dl (8.6-10.4) 05/03/17 08:03 Magnesium 1.9 mg/dL (1.6-2.3) 05/03/17 08:03 Total Bilirubin 0.5 mg/dL (0.2-1.3) 05/03/17 08:03 AST 18 U/L (17-59) 05/03/17 08:03 ALT 14 U/L (21-72) L 05/03/17 08:03 Alkaline Phosphatase 66 U/L (38-126) 05/03/17 08:03 Total Creatine Kinase 28 U/L (55-170) L 05/01/17 08:16 CK-MB (Mass) 0.37 ng/mL (0.0-3.38) 05/01/17 08:16 Troponin I, Quant < 0.0120 ng/mL (0.00-0.120) 05/01/17 08:16 Total Protein 6.8 g/dL (6.3-8.3) 05/03/17 08:03 Albumin 3.4 g/dL (3.5-5.0) L 05/03/17 08:03 Globulin 3.4 gm/dL (2.2-3.9) 05/03/17 08:03 Albumin/Globulin Ratio 1.0 (1.0-2.1) 05/03/17 08:03 Urine Color Yellow (YELLOW) 04/30/17 18:25 Urine Clarity Clear (Clear) 04/30/17 18:25 Urine pH 6.0 (5.0-8.0) 04/30/17 18:25 Ur Specific Beaver 1.023 (1.003-1.030) 04/30/17 18:25 Urine Protein Negative mg/dL (NEGATIVE) 04/30/17 18:25 Urine Glucose (UA) Normal mg/dL (Normal) 04/30/17 18:25 Urine Ketones Negative mg/dL (NEGATIVE) 04/30/17 18:25 Urine Blood Negative (NEGATIVE) 04/30/17 18:25 Urine Nitrate Negative (NEGATIVE) 04/30/17 18:25 Urine Bilirubin Negative (NEGATIVE) 04/30/17 18:25 Urine Urobilinogen Normal mg/dL (0.2-1.0) 04/30/17 18:25 Ur Leukocyte Esterase Negative James/uL (Negative) 04/30/17 18:25 Urine WBC (Auto) 3 /hpf (0-5) 04/30/17 18:25 Urine RBC (Auto) 2 /hpf (0-3) 04/30/17 18:25 Ur Transition Epith Cell < 1 /hpf (0-3) 04/30/17 18:25 Urine Bacteria Rare (<OCC) 04/30/17 18:25 Urine Opiates Screen Negative (NEGATIVE) 04/22/17 10:30 Urine Methadone Screen Negative (NEGATIVE) 04/22/17 10:30 Ur Barbiturates Screen Negative (NEGATIVE) 04/22/17 10:30 Ur Phencyclidine Scrn Negative (NEGATIVE) 04/22/17 10:30 Ur Amphetamines Screen Negative (NEGATIVE) 04/22/17 10:30 U Benzodiazepines Scrn Negative (NEGATIVE) 04/22/17 10:30 U Oth Cocaine Metabols Negative (NEGATIVE) 04/22/17 10:30 U Cannabinoids Screen Positive (NEGATIVE) 04/22/17 10:30 Alcohol, Quantitative < 10 mg/dl (0-10) 04/22/17 10:30 Ur L.pneumophila Ag Negative (NEGATIVE) 04/30/17 17:47 Mycoplasma pneumon IgM Negative (NEGATIVE) 04/30/17 17:47 - Hospital Course Hospital Course: Patient is a 57 y/o male with past medical history of COPD, major depressive disorder, alcohol abuse disorder, perforated ulcer and shingles currently admitted to inpatient psychiatry for suicidal ideation who is complaining of shortness of breath and new onset pain on inspiration that radiates to his back between his scapulae. He describes the pain as sharp, 6/10 intensity, and states that it started as soon as he awoke this morning and lasted for 20 minutes. He states that deep breaths tend to make the pain worse. As a result, he has been taking shallow breaths. Patient admits to a history of COPD and has been experiencing shortness of breath while at work. He was given Advair and Albuterol, which he said provided him with some relief. The patient states that he was admitted to inpatient psychiatry last week for excessive alcohol consumption (5 pints of vodka) and suicidal intention (his plan was to run into traffic). He admits to 3 episodes of vomiting in the past 2 days and states that the emesis contained blood. The patient admits to fever/chills, nausea, vomiting x3 (contained blood), fatigue, general weakness, night sweats, unintentional 10-lb weight loss this year, headache, rhinorrhea, sore throat, chest pain, palpitations, cough productive of yellow sputum, shortness of breath , pain on inspiration, joint pain, muscle aches, stress, and anxiety. He denies diaphoresis, vision changes, dizziness, claudication, rashes, diarrhea, constipation, abdominal pain, hematochezia, hematuria, recent travel or sick contacts. Hospital course: Admitted to the medical floor from the psych floor for pneumonia and possible PE /DVT. He had a CXR which showed no active disease, doppler negative for DVT, and CT negative for PE. Please see EMR for full report of imaging studies and lab results. Patient was discharged on Levaquin 750mg for 5 days and Medrol taper dose. He was also given a note. Patient was cleared by psychiatry for discharge as well. Discharge instructions: atient to be discharged home per Dr. Heredia and Dr. Benson. Patient will continue taking Incruse Ellipta, Flovent, and all his other COPD medication. Patient will take Levaquin 750mg daily for 5 days. He will also take a steroid taper, please take as directed. Patient will need to quit smoking. He will also follow up with [facility] after discharge as well as outpatient Psych. Patient will return to ED if symptoms return or worsen. Discharge diagnosis: Pneumonia COPD Depressive disorder Etoh abuse Discharge Exam - Head Exam Head Exam: ATRAUMATIC, NORMAL INSPECTION, NORMOCEPHALIC Discharge Plan - Discharge Medications Prescriptions: levoFLOXacin [Levaquin] 750 mg PO DAILY 5 Days predniSONE [predniSONE Tab] See Taper PO DAILY #20 tab - Follow Up Plan Condition: STABLE Disposition: HOME/ ROUTINE Instructions: How to Stop Smoking (DC), Community Acquired Pneumonia (DC), Chronic Lung Disease and Infection Prevention (DC) Additional Instructions: Patient to be discharged home per Dr. Heredia and Dr. Benson. Patient will continue taking Incruse Ellipta, Flovent, and all his other COPD medication. Patient will take Levaquin 750mg daily for 5 days. He will also take a steroid taper, please take as directed. Patient will need to quit smoking. He will also follow up with [facility] after discharge as well as outpatient Psych. Patient will return to ED if symptoms return or worsen. <Bakari Benson - Last Filed: 05/05/17 08:07> Provider - Provider Date of Admission: 04/22/17 12:18 Attending physician: Bakari Benson MD Hospital Course - Lab Results Lab Results: Micro Results 04/30/17 20:31 Blood Blood Culture - Preliminary NO GROWTH AFTER 4 DAYS 04/30/17 15:15 Blood Blood Culture - Preliminary NO GROWTH AFTER 4 DAYS 05/01/17 14:50 Sputum Gram Stain - Final 05/01/17 14:50 Sputum Sputum Culture - Final 04/30/17 18:34 Urine,Clean Catch Urine Culture - Final No Growth (<1,000 CFU/ML) Most Recent Lab Values WBC 12.4 K/uL (4.8-10.8) H 05/03/17 08:03 RBC 3.79 Mil/uL (4.40-5.90) L 05/03/17 08:03 Hgb 11.7 g/dL (12.0-18.0) L 05/03/17 08:03 Hct 35.1 % (35.0-51.0) 05/03/17 08:03 MCV 92.7 fL (80.0-94.0) 05/03/17 08:03 MCH 31.0 pg (27.0-31.0) 05/03/17 08:03 MCHC 33.5 g/dL (33.0-37.0) 05/03/17 08:03 RDW 14.0 % (11.5-14.5) 05/03/17 08:03 Plt Count 277 K/uL (130-400) 05/03/17 08:03 MPV 8.4 fL (7.2-11.7) 05/03/17 08:03 Neut % (Auto) 89.8 % (50.0-75.0) H 05/03/17 08:03 Lymph % (Auto) 7.8 % (20.0-40.0) L 05/03/17 08:03 Mineral % (Auto) 2.1 % (0.0-10.0) 05/03/17 08:03 Eos % (Auto) 0.1 % (0.0-4.0) 05/03/17 08:03 Baso % (Auto) 0.2 % (0.0-2.0) 05/03/17 08:03 Neut # 11.1 K/uL (1.8-7.0) H 05/03/17 08:03 Lymph # 1.0 K/uL (1.0-4.3) 05/03/17 08:03 Mineral # 0.3 K/uL (0.0-0.8) 05/03/17 08:03 Eos # 0.0 K/uL (0.0-0.7) 05/03/17 08:03 Baso # 0.0 K/uL (0.0-0.2) 05/03/17 08:03 Neutrophils % (Manual) 92 % (50-75) H 05/03/17 08:03 Band Neutrophils % 4 % (0-2) H 05/03/17 08:03 Lymphocytes % (Manual) 2 % (20-40) L 05/03/17 08:03 Monocytes % (Manual) 2 % (0-10) 05/03/17 08:03 Eosinophils % (Manual) 1 % (0-4) 05/02/17 06:02 Platelet Estimate Normal (NORMAL) 05/03/17 08:03 RBC Morphology Normal 05/02/17 06:02 Poikilocytosis (manual Slight 05/03/17 08:03 Ovalocytes Slight 05/03/17 08:03 D-Dimer, Quantitative 685 ng/mlDDU (0-243) H 05/01/17 08:16 Sodium 136 mmol/L (132-148) 05/03/17 08:03 Potassium 4.6 mmol/L (3.6-5.2) 05/03/17 08:03 Chloride 99 mmol/L (98-107) 05/03/17 08:03 Carbon Dioxide 25 mmol/L (22-30) 05/03/17 08:03 Anion Gap 17 (10-20) 05/03/17 08:03 BUN 10 mg/dL (9-20) 05/03/17 08:03 Creatinine 0.6 MG/DL (0.8-1.5) L 05/03/17 08:03 Est GFR ( Amer) > 60 05/03/17 08:03 Est GFR (Non-Af Amer) > 60 05/03/17 08:03 Random Glucose 136 mg/dL (75-110) H 05/03/17 08:03 Calcium 8.7 mg/dl (8.6-10.4) 05/03/17 08:03 Magnesium 1.9 mg/dL (1.6-2.3) 05/03/17 08:03 Total Bilirubin 0.5 mg/dL (0.2-1.3) 05/03/17 08:03 AST 18 U/L (17-59) 05/03/17 08:03 ALT 14 U/L (21-72) L 05/03/17 08:03 Alkaline Phosphatase 66 U/L (38-126) 05/03/17 08:03 Total Creatine Kinase 28 U/L (55-170) L 05/01/17 08:16 CK-MB (Mass) 0.37 ng/mL (0.0-3.38) 05/01/17 08:16 Troponin I, Quant < 0.0120 ng/mL (0.00-0.120) 05/01/17 08:16 Total Protein 6.8 g/dL (6.3-8.3) 05/03/17 08:03 Albumin 3.4 g/dL (3.5-5.0) L 05/03/17 08:03 Globulin 3.4 gm/dL (2.2-3.9) 05/03/17 08:03 Albumin/Globulin Ratio 1.0 (1.0-2.1) 05/03/17 08:03 Urine Color Yellow (YELLOW) 04/30/17 18:25 Urine Clarity Clear (Clear) 04/30/17 18:25 Urine pH 6.0 (5.0-8.0) 04/30/17 18:25 Ur Specific Beaver 1.023 (1.003-1.030) 04/30/17 18:25 Urine Protein Negative mg/dL (NEGATIVE) 04/30/17 18:25 Urine Glucose (UA) Normal mg/dL (Normal) 04/30/17 18:25 Urine Ketones Negative mg/dL (NEGATIVE) 04/30/17 18:25 Urine Blood Negative (NEGATIVE) 04/30/17 18:25 Urine Nitrate Negative (NEGATIVE) 04/30/17 18:25 Urine Bilirubin Negative (NEGATIVE) 04/30/17 18:25 Urine Urobilinogen Normal mg/dL (0.2-1.0) 04/30/17 18:25 Ur Leukocyte Esterase Negative James/uL (Negative) 04/30/17 18:25 Urine WBC (Auto) 3 /hpf (0-5) 04/30/17 18:25 Urine RBC (Auto) 2 /hpf (0-3) 04/30/17 18:25 Ur Transition Epith Cell < 1 /hpf (0-3) 04/30/17 18:25 Urine Bacteria Rare (<OCC) 04/30/17 18:25 Urine Opiates Screen Negative (NEGATIVE) 04/22/17 10:30 Urine Methadone Screen Negative (NEGATIVE) 04/22/17 10:30 Ur Barbiturates Screen Negative (NEGATIVE) 04/22/17 10:30 Ur Phencyclidine Scrn Negative (NEGATIVE) 04/22/17 10:30 Ur Amphetamines Screen Negative (NEGATIVE) 04/22/17 10:30 U Benzodiazepines Scrn Negative (NEGATIVE) 04/22/17 10:30 U Oth Cocaine Metabols Negative (NEGATIVE) 04/22/17 10:30 U Cannabinoids Screen Positive (NEGATIVE) 04/22/17 10:30 Alcohol, Quantitative < 10 mg/dl (0-10) 04/22/17 10:30 Ur L.pneumophila Ag Negative (NEGATIVE) 04/30/17 17:47 Mycoplasma pneumon IgM Negative (NEGATIVE) 04/30/17 17:47 Attending/Attestation - Attestation I have personally seen and examined this patient.: Yes I have fully participated in the care of the patient.: Yes I have reviewed all pertinent clinical information, including history, physical exam and plan: Yes Notes (Text): 05/05/17 08:06 Patient was seen and examined at bedside with the resident Patient stated that he is feeling much better. Cough and expectoration is improving Patient has been cleared for discharge by psychiatry We will discharge the patient home on oral antibiotics and tapering dose of steroids I discussed the plan of care with the resident and agree with the above discharge note by the resident.
== END 2017-05-04 16:34 | disposition home or self-care (01) | DRG 430 ==
LOC: C.ER 09:26 → C.9E 12:18 → C.5E 14:43 → C.3T 04-30 19:35 → C.6T 05-01 08:52
PROVIDERS: ADMIT Internal Medicine; ATTEND Internal Medicine
PROC: HZ2ZZZZ Detoxification Services for Substance Abuse Treatment (ICD-10-PCS; principal; 2017-04-22)
PROC: GZHZZZZ Group Psychotherapy (ICD-10-PCS; 2017-04-22)
PROC: HZ52ZZZ Individual Psychotherapy for Substance Abuse Treatment, Cognitive-Behavioral (ICD-10-PCS; 2017-04-22)
PROC: HZ59ZZZ Individual Psychotherapy for Substance Abuse Treatment, Supportive (ICD-10-PCS; 2017-04-22)
PROC: HZ56ZZZ Individual Psychotherapy for Substance Abuse Treatment, Psychoeducation (ICD-10-PCS; 2017-04-22)
DX: F33.2 Major depressive disorder, recurrent severe without psychotic features (principal); K25.5 Chronic or unspecified gastric ulcer with perforation; J18.9 Pneumonia, unspecified organism; F10.230 Alcohol dependence with withdrawal, uncomplicated; J44.1 Chronic obstructive pulmonary disease with (acute) exacerbation; B02.9 Zoster without complications; F41.9 Anxiety disorder, unspecified; F17.210 Nicotine dependence, cigarettes, uncomplicated; J45.909 Unspecified asthma, uncomplicated; F12.90 Cannabis use, unspecified, uncomplicated; Y90.0 Blood alcohol level of less than 20 mg/100 ml; K21.9 Gastro-esophageal reflux disease without esophagitis; R45.851 Suicidal ideations

== ENCOUNTER 2017-05-19 16:58 | Inpatient (IN) | payer MEDICAID, OTHER ==
[2017-05-19 16:58] VITALS: BMI 21.1
[2017-05-19] MEDS ORDERED: Albuterol-Ipratrop 3 mg / 0.5 (3 ml) UD INH STA ×2 (17:23→17:24)
[2017-05-19] MEDS ORDERED: Albuterol-Ipratrop 3 mg / 0.5 (3 ml) UD ONE (17:29)
--- NOTE | 2017-05-19 17:49 | RAD ---
PROCEDURE: CHEST RADIOGRAPH, 1 VIEW HISTORY: SOB COMPARISON: 04/22/2017 FINDINGS: LUNGS: Pulmonary hyperinflation consistent with emphysema. No pulmonary infiltrate. PLEURA: No pneumothorax or pleural fluid seen. Left costophrenic angle is not included in this examination. CARDIOVASCULAR: Normal. OSSEOUS STRUCTURES: No significant abnormalities. VISUALIZED UPPER ABDOMEN: Normal. OTHER FINDINGS: None. IMPRESSION: Pulmonary hyperinflation.
[2017-05-19 17:56] LABS: ALBUMIN 3.7 g/dL (3.5-5.0)
[2017-05-19 17:59] LABS: GFR AFRICAN-AMERICAN > 60; GFR NON-AFRICAN AMERICAN > 60; URINE BILIRUBIN NEGATIVE (NEGATIVE); URINE BLOOD NEGATIVE (NEGATIVE); URINE CLARITY Clear (Clear); URINE COLOR Yellow (YELLOW); URINE GLUCOSE (UA) NORMAL (Normal); URINE LEUKOCYTE ESTERASE NEG Leu/uL (Negative); URINE NITRATE NEGATIVE (NEGATIVE); URINE PROTEIN NEGATIVE (NEGATIVE); URINE UROBILINOGEN NORMAL mg/dL (0.2-1.0)
[2017-05-19 18:00] LABS: ALB/GLOB RATIO 1.2 (1.0-2.1); ALT/SGPT 27 U/L (21-72); AST/SGOT 31 U/L (17-59); BLOOD UREA NITROGEN 5 mg/dL (9-20); CALCIUM 8.3 mg/dl (8.6-10.4)
[2017-05-19 18:02] LABS: BASO % 0.4 % (0.0-2.0); BENZODIAZEPINES, UR NEGATIVE (NEGATIVE); EOS # 0.1 K/uL (0.0-0.7); EOS % 0.9 % (0.0-4.0); HEMOGLOBIN 14.1 g/dL (12.0-18.0); LYMPH # 3.2 K/uL (1.0-4.3); LYMPH % 29.3 % (20.0-40.0); MEAN CELL VOLUME 93.3 fL (80.0-94.0); MEAN CORPUSCULAR HEMOGLOBIN 30.8 pg (27.0-31.0); MONO # 0.5 K/uL (0.0-0.8); MONO % 4.2 % (0.0-10.0); NEUT # 7.1 K/uL (1.8-7.0); NEUT % 65.2 % (50.0-75.0); RBC 4.57 Mil/uL (4.40-5.90); RED CELL DISTRIBUTION WIDTH 15.4 % (11.5-14.5); WHITE BLOOD COUNT 10.9 K/uL (4.8-10.8)
[2017-05-19 18:03] LABS: BARBITURATES, UR NEGATIVE (NEGATIVE)
[2017-05-19 18:05] LABS: OPIATES, UR NEGATIVE (NEGATIVE)
[2017-05-19 18:06] LABS: PHENCYCLIDINE, UR NEGATIVE (NEGATIVE)
[2017-05-19] MEDS ORDERED: Albuterol 0.083% Inhal Sol (2.5 mg/3 mL) UD IH STA ×2 (18:13→18:14)
[2017-05-19 18:30] LABS: CK-MB 1.24 ng/mL (0.0-3.38)
[2017-05-19 18:31] LABS: B-TYPE NATRIURETIC PEPTIDE 109 pg/mL (0-900)
[2017-05-19] MEDS ORDERED: Sodium Chloride 0.9% 500 ML IV ONE ×2 (18:32→21:03)
[2017-05-19] MEDS ORDERED: Albuterol 0.083% Inhal Sol (2.5 mg/3 mL) UD ONE (18:34)
--- NOTE | 2017-05-19 18:39 | C.PDOC ---
History Of Present Illness Patient BIBA for evaluation of SOB, nonproductive cough and wheezing since this morning. Patient admits to h/o COPD, HTN, bronchitis, anxiety, is currently a tobacco smoker. Patient denies chest pain, fever, abdominal pain, nausea/ vomiting/diarrhea. Patient also c/o feeling depressed and states he sometimes has thoughts of hurting himself by walking into traffic. Time Seen by Provider: 05/19/17 17:14 Chief Complaint (Nursing): Shortness Of Breath History Per: Patient History/Exam Limitations: intoxication Onset/Duration Of Symptoms: Mins Current Symptoms Are (Timing): Still Present Current Respiratory Medications: See Home Med List Severity: Moderate Associated Symptoms: denies: Fever, Chest Pain, Bloody Cough, Productive Cough Past Medical History Reviewed: Historical Data, Nursing Documentation, Vital Signs Vital Signs: Last Vital Signs Temp 98 F 05/23/17 07:13 Pulse 81 05/23/17 16:14 Resp 20 05/23/17 07:13 BP 107/65 05/23/17 16:14 Pulse Ox 93 L 05/24/17 13:56 - Medical History PMH: Anxiety, Asthma, Bronchitis, COPD, Depression, Gastrointestinal Ulcer, HTN Surgical History: Appendectomy, Tonsillectomy - [facility] Procedures CONTR ABD ARTERIOGRM NEC (05/20/07) DETOXIFICATION SERVICES FOR SUBSTANCE ABUSE TREATMENT (04/22/17) ESOPHAGOGASTRODUODENOSCOPY [EGD] W/CLOSED BIOPSY (05/20/07) GROUP [facility] [employer] FOR SUBSTANCE ABUSE TREATMENT, PSYCHOEDUCATION (01/14/17) GROUP [facility] [employer] FOR SUBSTANCE ABUSE, COGNITIVE BEHAVIORAL (01/14/17) GROUP PSYCHOTHERAPY (04/22/17) INDIV [facility] [employer] FOR SUBSTANCE ABUSE TREATMENT, PSYCHOEDUCATION (01/14/17) INDIV [facility] [employer] FOR SUBSTANCE ABUSE, COGNITIVE BEHAVIORAL (01/14/17) INDIV PSYCHOTHERAPY FOR SUBSTANCE ABUSE TREATMENT, SUPPORT (04/22/17) INDIV PSYCHOTHERAPY FOR SUBSTANCE ABUSE, COGNITIV BEHAVIORAL (04/22/17) INDIV PSYCHOTHERAPY FOR SUBSTANCE ABUSE, PSYCHOEDUCATION (04/22/17) INDIVIDUAL PSYCHOTHERAPY, SUPPORTIVE (03/12/17) INJECT/INFUSE NEC (03/20/12) MEDICATION MANAGEMENT (03/12/17) MEDS MGMT FOR SUBSTANCE ABUSE TREATMENT, OTH REPL MED (03/12/17) Family History: States: No Known Family Hx - Social History Hx Tobacco Use: Yes Hx Alcohol Use: Yes Hx Substance Use: Yes (heroin and marijuana) - Immunization History Hx Tetanus Toxoid Vaccination: Yes Hx Influenza Vaccination: Yes Hx Pneumococcal Vaccination: Yes Review Of Systems Except As Marked, All Systems Reviewed And Found Negative. Constitutional: Negative for: Fever, Chills Cardiovascular: Negative for: Chest Pain, Palpitations Respiratory: Positive for: Cough, Shortness of Breath, Wheezing Gastrointestinal: Negative for: Nausea, Vomiting, Abdominal Pain, Diarrhea Psych: Positive for: Depression, Suicidal ideation Physical Exam - Physical Exam Appears: Non-toxic, Other (appears mildly intoxicated, speaking in full sentences) Skin: Normal Color, Warm, Dry, No Rash Oral Mucosa: Moist Cardiovascular: Rhythm Regular Respiratory: Accessory Muscle Use (mild), No Rales, No Rhonchi, Wheezing ( diffuse expiratory wheezing B/L) Gastrointestinal/Abdominal: Normal Exam, Bowel Sounds, Soft, No Tenderness Extremity: Normal ROM, No Pedal Edema, No Calf Tenderness Pulses: Left Dorsalis Pedis: Normal, Right Dorsalis Pedis: Normal Neurological/Psych: Other (awake, alert, mildly intoxicated) ED Course And Treatment - Laboratory Results Result Diagrams: 05/21/17 07:25 05/21/17 07:25 ECG: Interpreted By Me, Viewed By Me (NSR 90 bpm, normal axis, no acute ST/T wave changes) ECG Interpretation: Normal O2 Sat by Pulse Oximetry: 93 (RA) Pulse Ox Interpretation: Abnormal - Radiology CXR: Interpreted by Me, Viewed By Me (no infiltrates/effusions, (+) hyperinflation) Progress Note: Blood work, CXR, EKG ordered and reviewed. Patient given multiple duoneb and albuterol treatments. Crisis counselor evaluated patient at bedside, does not think patient needs 1:1 observation as he current denies active SI. Reevaluation Time: 18:30 Reassessment Condition: Improved (On reassessment, patient has improved air entry and decreased wheezing, but still have exp wheezing B/L. Will need obs tele for copd.) - Physician Consult Information Physician Contacted: Suman Rojas Outcome Of Conversation: Discussed patient with hospitalist, agrees with admission for dyspnea, depression, COPD exacerbation - requests admission order be under Dr. Dey (night hospitalist). Critical Care Time - Critical Care Note Total Time (in mins): 35 Documented critical care: time excludes all time spent performing seperately billable procedures. Disposition - Disposition Disposition: HOSPITALIZED Disposition Time: 18:40 Condition: FAIR - Clinical Impression Clinical Impression: COPD exacerbation, Depression, Dyspnea Decision To Admit - Pt Status Changed To: Hospital Disposition Of: Observation - . Bed Request Type: Telemetry Admitting Physician: Phillip Dey Patient Diagnosis: COPD exacerbation, Depression, Dyspnea
[2017-05-20] MEDS ORDERED: Albuterol HFA 90 mcg/actuation (8 g) IH SCH
[2017-05-20] MEDS: Albuterol-Ipratrop 3 mg / 0.5 (3 ml) UD INH SCH ×6 (00:57→21:07)
--- NOTE | 2017-05-20 03:58 | CP.PCM.HP ---
<Neetu Molina - Last Filed: 05/20/17 03:49> History of Present Illness - History of Present Illness History of Present Illness: CC: " I feel fine now that I ate a sandwich. I would like inpatient psych help" HPI: Patient is a 57 y/o male with past medical history of COPD (not on home 02), major depressive disorder, alcohol abuse disorder, perforated ulcer and shingles presents BIBA for evaluation of SOB, nonproductive cough and wheezing since this morning per ED documentation. Patient was given breathing treatment in the ED. When examined by the medical team the patient reported that his breathing had improved and that he really wanted to be inpatient because he "needs psych help" He reported to the ED feeling depressed and stated he sometimes has thoughts of hurting himself by walking into traffic. He denied thought of suicidal or homicidal ideation to the medical team but repeated over and over that he wants "psych help". market garden worker was notified and said patient did not need one to one observation. Psychiatry was consulted, but bed available on psych floor. Patient was noted to have am elevated alcohol level on admission. He reports his last drink today around 1PM. he admits to drinking 3 shots of vodka and one beer. He denies tremors or hallucinations but is worried he will start shaking later. Patient denies chest pain, fever, abdominal pain, nausea/vomiting/diarrhea. He reports taking his medications as prescribed. PMH: see HPI Medications: Zoloft 100mg PO (BID? per pt), Gabapentin 100mg PO daily, ellipta, Ventolin Allergies: NKDA Surgeries/hospitalizations: Perforated ulcer, Upper GI bleeding, Removal of 3 pilonidal cysts, Appendectomy, Tonsillectomy Family History: unknown, patient adopted Social history: The patient lives at [facility]. He admits to smoking 1.5 packs of cigarettes per day since the age of 10 y/o. He also admits to occasional use of marijuana. He currently admits to drinking 1-2 pints of vodka per week last drink was this morning at 1PM he had 3 shots of vodka and one beer. He admits to past cocaine use when he was younger. Recently lost his job at the [employer] he states due to his COPD PMD: Dr. Dawson Present on Admission - Present on Admission Any Indicators Present on Admission: No Review of Systems - Constitutional Constitutional: absent: Chills, Fever - EENT Eyes: absent: Blurred Vision, Change in Vision - Cardiovascular Cardiovascular: absent: Chest Pain, Chest Pain at Rest, Palpitations, Pedal Edema, Syncope - Respiratory Respiratory: Cough, Dyspnea on Exertion. absent: Dyspnea - Gastrointestinal Gastrointestinal: absent: Abdominal Pain, Constipation, Diarrhea, Nausea, Vomiting - Genitourinary Genitourinary: absent: Change in Urinary Stream, Difficulty Urinating - Musculoskeletal Musculoskeletal: absent: Numbness, Tingling - Neurological Neurological: absent: Dizziness - Psychiatric Psychiatric: absent: Hallucinations, Homicidal Ideation, Suicidal Ideation, Visual Hallucinations, Tactile Hallucinations Past Patient History - Infectious Disease Hx of Infectious Diseases: None - Past Medical History & Family History Past Medical History?: Yes - Past Social History Smoking Status: Smoker Currrent Status Unknown - CARDIAC Hx Hypertension: Yes - PULMONARY Hx Asthma: Yes Hx Bronchitis: Yes Hx Chronic Obstructive Pulmonary Disease (COPD): Yes - NEUROLOGICAL Hx Seizures: No - HEENT Hx HEENT Problems: No - RENAL Hx Chronic Kidney Disease: No - ENDOCRINE/METABOLIC Hx Endocrine Disorders: No - HEMATOLOGICAL/ONCOLOGICAL Hx Human Immunodeficiency Virus (HIV): No - INTEGUMENTARY Hx Dermatological Problems: No - MUSCULOSKELETAL/RHEUMATOLOGICAL Hx Falls: No - GASTROINTESTINAL Hx Gastrointestinal Disorders: Yes Hx Gastroesophageal Reflux: Yes Hx Ulcer: Yes - GENITOURINARY/GYNECOLOGICAL Hx Genitourinary Disorders: No Hx Sexually Transmitted Disorders: No - PSYCHIATRIC Hx Substance Use: Yes (hx when he was younger) - SURGICAL HISTORY Hx Surgeries: Yes Hx Appendectomy: Yes Hx Tonsillectomy: Yes - ANESTHESIA Hx Anesthesia: Yes Hx Anesthesia Reactions: No Hx Malignant Hyperthermia: No Has any member of the family had a problem w/ anesthesia?: No Meds Allergies/Adverse Reactions: Allergies Allergy/AdvReac Type Severity Reaction Status Date / Time No Known Allergies Allergy Verified 04/22/17 09:39 Physical Exam - Constitutional Appears: Non-toxic, No Acute Distress, Unkempt - Head Exam Head Exam: ATRAUMATIC, NORMAL INSPECTION - Eye Exam Eye Exam: EOMI, Normal appearance, PERRL Pupil Exam: NORMAL ACCOMODATION - ENT Exam ENT Exam: Mucous Membranes Dry - Respiratory Exam Respiratory Exam: Clear to Auscultation Bilateral, Wheezes, NORMAL BREATHING PATTERN. absent: Accessory Muscle Use, Respiratory Distress - Cardiovascular Exam Cardiovascular Exam: Tachycardia, REGULAR RHYTHM, +S1, +S2 - GI/Abdominal Exam GI & Abdominal Exam: Diminished Bowel Sounds, Normal Bowel Sounds, Soft. absent : Distended, Firm, Guarding, Tenderness - Extremities Exam Extremities exam: Positive for: normal inspection. Negative for: calf tenderness, pedal edema - Back Exam Back exam: NORMAL INSPECTION. absent: CVA tenderness (L), CVA tenderness (R), paraspinal tenderness - Neurological Exam Neurological exam: Alert, Normal Gait, Oriented x3 - Psychiatric Exam Psychiatric exam: Anxious, Normal Affect, Normal Mood - Skin Skin Exam: Dry, Intact, Normal Color, Warm Results - Vital Signs Recent Vital Signs: Last Vital Signs Temp 98.4 F 05/20/17 00:00 Pulse 98 H 05/20/17 00:00 Resp 20 05/20/17 00:00 BP 112/61 05/20/17 00:00 Pulse Ox 94 L 05/20/17 00:00 - Labs Result Diagrams: 05/19/17 17:44 05/19/17 17:44 Assessment & Plan - Assessment and Plan (Free Text) Assessment: Alcohol Use Disorder Monitor for signs of withdrawal Alcohol level 273 UDS negative Librium taper Mv/thiamine/folic acid aspiration/seizure precautions psych consulted, help appreciated f/u am labs Depression Zoloft 100mg PO daily Psych consulted, help appreciated Pt would like to be admitted to psych floor monitor for suicidal/homicidal ideations per crisis - no need for 1:1\\ Dr. Ruby (psych) called - stated no beds available in psych unit COPD exacerbation Duonebs RQ4 FERNANDA Advair 250/50 Spiriva was recently on steroids Peak flow 175 Chest X ray - hyperinflation, no signs of pneumonia or other acute pathology Leukocytosis WBC 10.9 afebrile Was recently on steroids Hypotension BP 98/53 in the ED Normalized with Fluid bolus Now 112/61 Prophylactic Measures Lovenox 40mg SC daily Pepcid 20mg PO BID Heart Healthy diet SCDs <Mariano Whitlock - Last Filed: 05/20/17 06:45> Results - Vital Signs Recent Vital Signs: Last Vital Signs Temp 98.4 F 05/20/17 00:00 Pulse 98 H 05/20/17 00:00 Resp 20 05/20/17 00:00 BP 112/61 05/20/17 00:00 Pulse Ox 94 L 05/20/17 00:00 - Labs Result Diagrams: 05/19/17 17:44 05/19/17 17:44 Assessment & Plan - Date & Time Date: 05/20/17 (I have seen and examined the patient. I agree with the findings and plan of care as documented by Dr. Molina. Patient with alcohol abuse. [facility] protocol with Librium. Thiamine and folate. Also with depression. Continue home meds. Psych consult. Continue home meds for history of COPD.) Time: 06:42 Attending/Attestation - Attestation I have personally seen and examined this patient.: Yes I have fully participated in the care of the patient.: Yes I have reviewed all pertinent clinical information: Yes
[2017-05-20] MEDS: Sodium Chloride 0.9% 1,000 ML IV SCH ×2 (04:56→15:17)
[2017-05-20 07:24] LABS: BASO % 0.3 % (0.0-2.0); HEMOGLOBIN 12.8 g/dL (12.0-18.0); LYMPH # 0.9 K/uL (1.0-4.3); LYMPH % 14.1 % (20.0-40.0); MEAN CELL VOLUME 92.6 fL (80.0-94.0); MEAN CORPUSCULAR HEMOGLOBIN 31.2 pg (27.0-31.0); MEAN CORPUSCULAR HGB CONC 33.7 g/dL (33.0-37.0); MEAN PLATELET VOLUME 7.9 fL (7.2-11.7); MONO # 0.3 K/uL (0.0-0.8); MONO % 4.4 % (0.0-10.0); NEUT # 5.4 K/uL (1.8-7.0); NEUT % 81.2 % (50.0-75.0); RBC 4.12 Mil/uL (4.40-5.90); RED CELL DISTRIBUTION WIDTH 15.1 % (11.5-14.5); WHITE BLOOD COUNT 6.7 K/uL (4.8-10.8)
[2017-05-20 07:59] LABS: ALBUMIN 3.2 g/dL (3.5-5.0)
[2017-05-20 08:02] LABS: AST/SGOT 27 U/L (17-59); GFR AFRICAN-AMERICAN > 60; GFR NON-AFRICAN AMERICAN > 60
[2017-05-20 08:03] LABS: ALB/GLOB RATIO 1.1 (1.0-2.1); ALT/SGPT 22 U/L (21-72); BLOOD UREA NITROGEN 9 mg/dL (9-20); CALCIUM 8.4 mg/dl (8.6-10.4); MAGNESIUM 1.7 mg/dL (1.6-2.3)
[2017-05-20] MEDS: Fluticasone-Salmeterol 250-50mcg Diskus INH SCH ×2 (08:21→21:07)
[2017-05-20] MEDS: Tiotropium 18 mcg Cap For Inhalation INH SCH (08:21)
--- NOTE | 2017-05-20 10:03 | CARD ---
APPROVED REPORT EKG Measurement Heart [id number] <Conclusion> Normal sinus rhythm Normal ECG
[2017-05-20] MEDS: Enoxaparin 40 mg Syringe SC SCH (10:50)
[2017-05-20] MEDS: Multiple Vitamins Tab PO SCH (10:53)
--- NOTE | 2017-05-20 13:39 | PCM.PSYCH ---
Initial Psychiatric Evaluation - Initial Psychiatric Evaluation Type of Admission: Voluntary Legal Status: Capacity History of Present Illness and Precipitating Events: The patient is seen, chart reviewed and case discussed. Consultation was requested for his alcohol use. Also for his depression. This is a 57-year-old male, single, homeless and unemployed. He admits to drinking 1-1/2 pint of alcohol every day for many years. He denies all other drug use except for occasional marijuana use. He has withdrawal symptoms but he is put on detox already. No DTs or seizures. He also suffers from depression and reports several depressive symptoms but is not suicidal. He is mostly distressed about his living conditions, no income and no insurance. He reports anxiety but no manic or psychotic symptoms. He was on Zoloft and Remeron. Past psych history: Previous admissions to psych. Medical history: COPD, GI ulcer, Arthritis, Degenerative disc disease Family psych history: Father was an "alcoholic" Current Medications: Active Medications Generic Name Dose Route Start Last Admin Trade Name Freq PRN Reason Stop Dose Admin Albuterol/Ipratropium 3 ml 05/20/17 00:00 05/20/17 08:20 Duoneb 3 Mg/0.5 Mg (3 Ml) Ud INH 3 ml RQ4 FERNANDA Administration Chlordiazepoxide 25 mg 05/20/17 00:00 05/20/17 11:55 Librium PO 05/23/17 23:59 25 mg Q6 FERNANDA Administration Taper Enoxaparin Sodium 40 mg 05/20/17 10:00 05/20/17 10:50 Lovenox SC 40 mg DAILY FERNANDA Administration Famotidine 20 mg 05/20/17 10:00 05/20/17 10:53 Pepcid PO 20 mg BID FERNANDA Administration Folic Acid 1 mg 05/20/17 10:00 05/20/17 10:53 Folic Acid PO 1 mg DAILY FERNANDA Administration Sodium Chloride 1,000 mls @ 100 mls/hr 05/20/17 04:00 05/20/17 04:56 Sodium Chloride 0.9% IV 100 mls/hr .Q10H FERNANDA Administration Multivitamins 1 tab 05/20/17 10:00 05/20/17 10:53 Hexavitamin PO 1 tab DAILY FERNANDA Administration Fluticasone/Salmeterol 1 puff 05/20/17 08:00 05/20/17 08:21 Advair Diskus 250/50 INH 1 puff RQ12 FERNANDA Administration Sertraline HCl 100 mg 05/20/17 10:00 05/20/17 10:55 Zoloft PO 100 mg DAILY FERNANDA Administration Thiamine HCl 100 mg 05/20/17 10:00 05/20/17 10:50 Vitamin B1 Tab PO 100 mg DAILY FERNANDA Administration Tiotropium [place] 18 mcg 05/20/17 08:00 05/20/17 08:21 Spiriva INH 18 mcg RQ24 FERNANDA Administration Past Psychiatric History - Past Psychiatric History Previous Treatment History: Inpatient Pertinent Medical Hx (Current Medical&Sleep Prob, Allergies): Allergies Allergy/AdvReac Type Severity Reaction Status Date / Time No Known Allergies Allergy Verified 04/22/17 09:39 Mirtazapine [Remeron] 30 mg PO HS #30 tab 01/22/17 Sertraline [Zoloft] 200 mg PO DAILY #60 tab 01/22/17 Albuterol HFA [Ventolin HFA 90 mcg/actuation (8 g)] 1 puff IH Q4 #1 inhaler Fluticasone/Salmeterol 250/50 [Advair Diskus 250/50] 1 puff INH RQ12 30 Days Ketoconazole 2% Cr [Nizoral] 1 appl TP DAILY 14 Days 02/21/17 Tiotropium [place] Inhaler [Spiriva Inhalation Handihaler Device] 1 inhaler INH ONCE 30 Days 02/21/17 Tiotropium [Spiriva] 18 mcg INH RQ24 30 Days 02/21/17 Mirtazapine [Remeron] 15 mg PO HS #30 tab 03/22/17 Sertraline [Zoloft] 100 mg PO DAILY #60 tab 03/22/17 levoFLOXacin [Levaquin] 750 mg PO DAILY 5 Days 05/04/17 predniSONE [predniSONE Tab] See Taper PO DAILY #20 tab 05/04/17 Review of Systems - Neurological Neurological: Tremor - Psychiatric Psychiatric: Abnormal Sleep Pattern, Anhedonia, Anxiety, Difficulty Concentrating. absent: Hallucinations, Homicidal Ideation, Paranoia, Suicidal Ideation Mental Status Examination - Personal Presentation Personal Presentation: Looks older than stated age - Affect Affect: Constricted - Motor Activity Motor Activity: Calm - Reliability in Providing Information Reliability in Providing Information: Good - Speech Speech: Organized - Mood Mood: Depressed, Anxious - Formal Thought Process Formal Thought Process: No Impairment - Cognitive Functions Orientation: Person, Place, Situation, Time Attention/Concentration: Easily distracted Estimate of Intelligence: Average Judgement: Intact, as evidence by: Insight regarding need for hospitalization Memory: Recent intact, as evidence by: Ability to recall events of the day, Remote intact, as evidenced by: Abilit to recall sig. life events - Risk Risk: Withdrawal, Diminished functioning - Strength & Assets Inventory Strength & Assets Inventory: Cooperative - Limitations Limitations: Living alone DSM 5 DX - DSM 5 DSM 5 Diagnosis: Major depressive d/o - recurrent, moderate Alcohol withdrawal Alcohol use d/o - severe Cannabis use d/o - mild - Recommended/Plan of Treatment Treatment Recommendations and Plan of Treatment: Zoloft for depression CBT and support Librium detox Gabapentin for augmentation As needed meds and vitamins Attend groups and activities [place] for abstinence and CBT for relapse prevention Support and psychoeducation Consider and encourage MAT Refer to after care at a rehab or IOP He needs to apply for medicaid and Welfare too. 33 min
--- NOTE | 2017-05-20 19:14 | CP.PCM.PN ---
<Milton Zee - Last Filed: 05/20/17 19:12> Subjective - Date & Time of Evaluation Date of Evaluation: 05/20/17 Time of Evaluation: 10:00 - Subjective Subjective: PGY-[address] Rojas medicine service Patient was examined by bedside. Patient was not in acute distress. Patient stated he is able to breath more easily today. He complained of a cramp like pain in his right leg. Patient denied chest pain, shortness of breath, nausea, vomiting, diarrhea, headaches, cough. Objective - Vital Signs/Intake and Output Vital Signs (last 24 hours): Temp Pulse Resp BP Pulse Ox 98.0 F 84 20 119/80 94 L 05/20/17 15:00 05/20/17 15:00 05/20/17 15:00 05/20/17 15:00 05/20/17 15:00 Intake and Output: 05/20/17 05/21/17 18:59 06:59 Intake Total 1560 Output Total 500 Balance 1060 - Medications Medications: Current Medications Albuterol/Ipratropium (Duoneb 3 Mg/0.5 Mg (3 Ml) Ud) 3 ml INH RQ4 [facility] Last Admin: 05/20/17 08:20 Dose: 3 ml Chlordiazepoxide (Librium) 25 mg PO Q6 [facility] PRN Reason: Taper Stop: 05/23/17 23:59 Last Admin: 05/20/17 18:00 Dose: 25 mg Enoxaparin Sodium (Lovenox) 40 mg SC DAILY [facility] Last Admin: 05/20/17 10:50 Dose: 40 mg Famotidine (Pepcid) 20 mg PO BID [facility] Last Admin: 05/20/17 18:00 Dose: 20 mg Folic Acid (Folic Acid) 1 mg PO DAILY [facility] Last Admin: 05/20/17 10:53 Dose: 1 mg Gabapentin (Neurontin) 100 mg PO TID [facility] Last Admin: 05/20/17 18:00 Dose: 100 mg Sodium Chloride (Sodium Chloride 0.9%) 1,000 mls @ 100 mls/hr IV .Q10H [facility] Last Admin: 05/20/17 15:17 Dose: 100 mls/hr Multivitamins (Hexavitamin) 1 tab PO DAILY [facility] Last Admin: 05/20/17 10:53 Dose: 1 tab Fluticasone/Salmeterol (Advair Diskus 250/50) 1 puff INH RQ12 [facility] Last Admin: 05/20/17 08:21 Dose: 1 puff Sertraline HCl (Zoloft) 100 mg PO DAILY [facility] Last Admin: 05/20/17 10:55 Dose: 100 mg Thiamine HCl (Vitamin B1 Tab) 100 mg PO DAILY [facility] Last Admin: 05/20/17 10:50 Dose: 100 mg Tiotropium [place] (Spiriva) 18 mcg INH RQ24 [facility] Last Admin: 05/20/17 08:21 Dose: 18 mcg - Labs Labs: 05/20/17 07:14 05/20/17 07:14 - Constitutional Appears: Well - Head Exam Head Exam: ATRAUMATIC, NORMAL INSPECTION, NORMOCEPHALIC - Eye Exam Eye Exam: EOMI, Normal appearance, PERRL - ENT Exam ENT Exam: Mucous Membranes Moist, Normal Exam - Neck Exam Neck Exam: Full ROM, Normal Inspection. absent: Lymphadenopathy - Respiratory Exam Respiratory Exam: Clear to Ausculation Bilateral, NORMAL BREATHING PATTERN - Cardiovascular Exam Cardiovascular Exam: REGULAR RHYTHM, +S1, +S2. absent: Murmur - GI/Abdominal Exam GI & Abdominal Exam: Soft, Normal Bowel Sounds. absent: Tenderness - Rectal Exam Rectal Exam: Deferred - Exam Exam: Circumcision, NORMAL INSPECTION - Extremities Exam Extremities Exam: Calf Tenderness Additional comments: calf tenderness in right leg - Neurological Exam Neurological Exam: Alert, Awake, CN II-XII Intact, Normal Gait, Oriented x3 - Psychiatric Exam Psychiatric exam: Normal Affect, Normal Mood - Skin Skin Exam: Dry, Intact, Normal Color, Warm Assessment and Plan - Assessment and Plan (Free Text) Assessment: Assessment: Alcohol Use Disorder Monitor for signs of withdrawal Alcohol level 273 UDS negative Librium taper Mv/thiamine/folic acid aspiration/seizure precautions psych consulted, help appreciated magnesium level, f/u f/u am labs Depression Zoloft 100mg PO daily Psych consulted, help appreciated Pt would like to be admitted to psych floor monitor for suicidal/homicidal ideations per crisis - no need for 1:1\ Dr. Ruyb (psych) called - stated no beds available in psych unit COPD exacerbation Duonebs RQ4 [facility] Advair 250/50 Spiriva was recently on steroids Peak flow 175 Chest X ray - hyperinflation, no signs of pneumonia or other acute pathology Leukocytosis WBC 10.9 [05/19] WBC 6.7 [05/20] afebrile Was recently on steroids UA negative Hypotension BP 98/53 in the ED Normalized with Fluid bolus Now 119/80 Right calf pain venous doppler, f/u Prophylactic Measures Lovenox 40mg SC daily Pepcid 20mg PO BID Heart Healthy diet SCDs <Suman Rojas H - Last Filed: 05/21/17 08:57> Objective - Vital Signs/Intake and Output Vital Signs (last 24 hours): Temp Pulse Resp BP Pulse Ox 98.4 F 66 20 183/67 H 96 05/21/17 08:00 05/21/17 08:00 05/21/17 08:00 05/21/17 08:00 05/21/17 08:00 Intake and Output: 05/21/17 05/21/17 06:59 18:59 Intake Total 1200 Output Total 800 Balance 400 - Medications Medications: Current Medications Albuterol/Ipratropium (Duoneb 3 Mg/0.5 Mg (3 Ml) Ud) 3 ml INH RQ4 [facility] Last Admin: 05/21/17 04:01 Dose: Not Given Chlordiazepoxide (Librium) 25 mg PO TID [facility] PRN Reason: Taper Stop: 05/23/17 23:59 Last Admin: 05/20/17 18:00 Dose: 25 mg Enoxaparin Sodium (Lovenox) 40 mg SC DAILY [facility] Last Admin: 05/20/17 10:50 Dose: 40 mg Famotidine (Pepcid) 20 mg PO BID [facility] Last Admin: 05/20/17 18:00 Dose: 20 mg Folic Acid (Folic Acid) 1 mg PO DAILY [facility] Last Admin: 05/20/17 10:53 Dose: 1 mg Gabapentin (Neurontin) 100 mg PO TID [facility] Last Admin: 05/20/17 18:00 Dose: 100 mg Sodium Chloride (Sodium Chloride 0.9%) 1,000 mls @ 100 mls/hr IV .Q10H [facility] Last Admin: 05/21/17 01:37 Dose: Not Given Multivitamins (Hexavitamin) 1 tab PO DAILY [facility] Last Admin: 05/20/17 10:53 Dose: 1 tab Fluticasone/Salmeterol (Advair Diskus 250/50) 1 puff INH RQ12 [facility] Last Admin: 05/20/17 21:07 Dose: Not Given Sertraline HCl (Zoloft) 100 mg PO DAILY [facility] Last Admin: 05/20/17 10:55 Dose: 100 mg Thiamine HCl (Vitamin B1 Tab) 100 mg PO DAILY [facility] Last Admin: 05/20/17 10:50 Dose: 100 mg Tiotropium [place] (Spiriva) 18 mcg INH RQ24 [facility] Last Admin: 05/20/17 08:21 Dose: 18 mcg - Labs Labs: 05/21/17 07:25 05/21/17 07:25 Attending/Attestation - Attestation I have personally seen and examined this patient.: Yes I have fully participated in the care of the patient.: Yes I have reviewed all pertinent clinical information, including history, physical exam and plan: Yes Notes (Text): 05/21/17 08:55 Medical attending: Patient was seen and examined by me, agrees the above note by medical affairs director. The patient is known to the hospitalist service from previous admissions secondary to COPD as well as alcohol, anxiety and stress The patient explains that his breathing has improved since admission. He doesn' t have any alcohol withdrawal at this time. He explains that the right now is under a lot of stress he says that he's not able to work he also tells us that normally he does a lot of heavy lifting at his job however because of his breathing situation he just doesn't feel comfortable working this moment So in meantime will continue to adjust this medication for breathing, will also get psychiatry evaluation as well Thank you very much, Suman Rojas
[2017-05-21] MEDS: Albuterol-Ipratrop 3 mg / 0.5 (3 ml) UD INH SCH ×6 (00:35→20:16)
[2017-05-21] MEDS: Sodium Chloride 0.9% 1,000 ML IV SCH ×2 (01:37→11:00)
[2017-05-21 07:35] LABS: BASO % 0.4 % (0.0-2.0); EOS # 0.1 K/uL (0.0-0.7); EOS % 1.1 % (0.0-4.0); HEMOGLOBIN 14.7 g/dL (12.0-18.0); LYMPH # 2.2 K/uL (1.0-4.3); LYMPH % 25.9 % (20.0-40.0); MEAN CELL VOLUME 94.1 fL (80.0-94.0); MEAN CORPUSCULAR HEMOGLOBIN 31.5 pg (27.0-31.0); MEAN CORPUSCULAR HGB CONC 33.4 g/dL (33.0-37.0); MEAN PLATELET VOLUME 8.3 fL (7.2-11.7); MONO # 0.5 K/uL (0.0-0.8); MONO % 5.6 % (0.0-10.0); NEUT # 5.6 K/uL (1.8-7.0); NRBC % 0.1 % (0.0-2.0); RBC 4.67 Mil/uL (4.40-5.90); RED CELL DISTRIBUTION WIDTH 15.7 % (11.5-14.5); WHITE BLOOD COUNT 8.4 K/uL (4.8-10.8)
[2017-05-21 07:51] LABS: ALBUMIN 3.4 g/dL (3.5-5.0)
[2017-05-21 07:54] LABS: AST/SGOT 43 U/L (17-59); GFR AFRICAN-AMERICAN > 60; GFR NON-AFRICAN AMERICAN > 60
[2017-05-21 07:55] LABS: ALB/GLOB RATIO 1.2 (1.0-2.1); ALT/SGPT 17 U/L (21-72); BLOOD UREA NITROGEN 10 mg/dL (9-20); CALCIUM 8.7 mg/dl (8.6-10.4); MAGNESIUM 1.8 mg/dL (1.6-2.3)
[2017-05-21] MEDS: Fluticasone-Salmeterol 250-50mcg Diskus INH SCH ×2 (08:53→20:30)
[2017-05-21] MEDS: Tiotropium 18 mcg Cap For Inhalation INH SCH (08:54)
[2017-05-21] MEDS: Multiple Vitamins Tab PO SCH (10:56)
[2017-05-21] MEDS: Enoxaparin 40 mg Syringe SC SCH (10:56)
--- NOTE | 2017-05-21 12:10 | PCM.PYCHPN ---
Psychiatric Progress Note - Psychiatric Progress Note Patient seen today, length of contact: 17 min Patient Chief Complaint: "I'm worried" Problems Identified/Issues Discussed: The pt is seen, chart reviewed, case discussed with staff. The pt is compliant with medications and reports no side-effects. Symptoms are improving but needs more time to stabilize. After care discussed, support and psychoeducation given. He is worried about his homelessness but knows he needs to apply for welfare and medicaid as soon as possible. He is also interested in inpatient rehab. [place] Addiction Hotline number given Medication Change: Yes (detox changes daily) Medical Record Reviewed: Yes Mental Status Examination - Cognitive Function Orientation: Person, Place, Situation, Time Memory: Impaired Attention: Poor Concentration: Poor Association: WNL Fund of Knowledge: WNL - Mood Mood: Depressed, Anxious - Affect Affect: Constricted - Speech Speech: Appropriate, Soft - Formal Thought Process Formal Thought Process: No Impairment - Suicidal Ideation Suicidal Ideation: No - Homicidal Ideation Homicidal Ideation: No Goal/Treatment Plan - Goal/Treatment Plan Need for Continued Stay: Discharge may exacerbated symptoms, Severe functional impairment, Other (medical) Progress Toward Problem(s) and Goals/Treatment Plan: Continue medications Support and psychoeducation daily Attend groups and activities daily After care planning by GABE - consider inpatient rehab
--- NOTE | 2017-05-21 13:58 | CP.PCM.PN ---
<Milton Zee - Last Filed: 05/21/17 14:54> Subjective - Date & Time of Evaluation Date of Evaluation: 05/21/17 Time of Evaluation: 11:45 - Subjective Subjective: Patient was examined by bedside. Patient is not in acute distress. Patient was eating lunch and also tolerated his breakfast. Patient stated he slept well the night before. Patient denies chest pain, shortness of breath, abdominal pain, headaches, bleeding, nausea, vomiting, diarrhea, constipation. Objective - Vital Signs/Intake and Output Vital Signs (last 24 hours): Temp Pulse Resp BP Pulse Ox 98.4 F 66 20 183/67 H 96 05/21/17 08:00 05/21/17 08:00 05/21/17 08:00 05/21/17 08:00 05/21/17 08:00 Intake and Output: 05/21/17 05/21/17 06:59 18:59 Intake Total 1200 Output Total 800 Balance 400 - Medications Medications: Current Medications Albuterol/Ipratropium (Duoneb 3 Mg/0.5 Mg (3 Ml) Ud) 3 ml INH RQ4 [facility] Last Admin: 05/21/17 12:20 Dose: 3 ml Chlordiazepoxide (Librium) 25 mg PO TID [facility] PRN Reason: Taper Stop: 05/23/17 23:59 Last Admin: 05/21/17 10:56 Dose: 25 mg Enoxaparin Sodium (Lovenox) 40 mg SC DAILY [facility] Last Admin: 05/21/17 10:56 Dose: 40 mg Famotidine (Pepcid) 20 mg PO BID [facility] Last Admin: 05/21/17 10:56 Dose: 20 mg Folic Acid (Folic Acid) 1 mg PO DAILY [facility] Last Admin: 05/21/17 10:56 Dose: 1 mg Gabapentin (Neurontin) 100 mg PO TID [facility] Last Admin: 05/21/17 10:56 Dose: 100 mg Multivitamins (Hexavitamin) 1 tab PO DAILY [facility] Last Admin: 05/21/17 10:56 Dose: 1 tab Fluticasone/Salmeterol (Advair Diskus 250/50) 1 puff INH RQ12 [facility] Last Admin: 05/21/17 08:53 Dose: 1 puff Sertraline HCl (Zoloft) 100 mg PO DAILY [facility] Last Admin: 05/21/17 11:20 Dose: 100 mg Thiamine HCl (Vitamin B1 Tab) 100 mg PO DAILY [facility] Last Admin: 05/21/17 10:56 Dose: 100 mg Tiotropium [place] (Spiriva) 18 mcg INH RQ24 [facility] Last Admin: 05/21/17 08:54 Dose: 18 mcg - Labs Labs: 05/21/17 07:25 05/21/17 07:25 - Constitutional Appears: Well - Head Exam Head Exam: ATRAUMATIC, NORMAL INSPECTION, NORMOCEPHALIC - Eye Exam Eye Exam: EOMI, Normal appearance, PERRL Pupil Exam: NORMAL ACCOMODATION, PERRL - ENT Exam ENT Exam: Mucous Membranes Moist, Normal Exam - Neck Exam Neck Exam: Full ROM, Normal Inspection. absent: Lymphadenopathy - Respiratory Exam Respiratory Exam: Clear to Ausculation Bilateral, NORMAL BREATHING PATTERN - Cardiovascular Exam Cardiovascular Exam: REGULAR RHYTHM, +S1, +S2. absent: Murmur - GI/Abdominal Exam GI & Abdominal Exam: Soft, Normal Bowel Sounds. absent: Tenderness - Rectal Exam Rectal Exam: Deferred - Extremities Exam Extremities Exam: Calf Tenderness Additional comments: right calf tenderness - Neurological Exam Neurological Exam: Alert, Awake, Oriented x3 - Psychiatric Exam Psychiatric exam: Normal Affect, Normal Mood - Skin Skin Exam: Dry, Intact, Normal Color, Warm Assessment and Plan - Assessment and Plan (Free Text) Assessment: Alcohol Use Disorder Monitor for signs of withdrawal Alcohol level 273 UDS negative Librium taper Mv/thiamine/folic acid aspiration/seizure precautions fluids discontinued [05/21] psych consulted, help appreciated magnesium level 1.8 [05/21] f/u am labs Depression Zoloft 100mg PO daily Psych consulted, help appreciated. Per psych [05/21]: "Continue medications Support and psychoeducation daily Attend groups and activities daily After care planning by SW - consider inpatient rehab" Pt would like to be admitted to psych floor monitor for suicidal/homicidal ideations per crisis - no need for 1:1\\ Dr. Ruby (psych) called - stated no beds available in psych unit COPD exacerbation Duonebs RQ4 [facility] Advair 250/50 Spiriva was recently on steroids Peak flow 175 Chest X ray - hyperinflation, no signs of pneumonia or other acute pathology Leukocytosis WBC 10.9 [05/19] WBC 6.7 [05/20] WBC 8.4 [05/21] afebrile Was recently on steroids UA normal Hypotension BP 98/53 in the ED Normalized with Fluid bolus Right calf pain venous doppler ordered, f/u Prophylactic Measures Lovenox 40mg SC daily Pepcid 20mg PO BID Heart Healthy diet SCDs <Suman Rojas H - Last Filed: 05/21/17 15:40> Objective - Vital Signs/Intake and Output Vital Signs (last 24 hours): Temp Pulse Resp BP Pulse Ox 98.4 F 66 20 183/67 H 96 05/21/17 08:00 05/21/17 08:00 05/21/17 08:00 05/21/17 08:00 05/21/17 08:00 Intake and Output: 05/21/17 05/21/17 06:59 18:59 Intake Total 1200 760 Output Total 800 Balance 400 760 - Medications Medications: Current Medications Albuterol/Ipratropium (Duoneb 3 Mg/0.5 Mg (3 Ml) Ud) 3 ml INH RQ4 [facility] Last Admin: 05/21/17 12:20 Dose: 3 ml Chlordiazepoxide (Librium) 25 mg PO TID [facility] PRN Reason: Taper Stop: 05/23/17 23:59 Last Admin: 05/21/17 13:51 Dose: 25 mg Enoxaparin Sodium (Lovenox) 40 mg SC DAILY [facility] Last Admin: 05/21/17 10:56 Dose: 40 mg Famotidine (Pepcid) 20 mg PO BID [facility] Last Admin: 05/21/17 10:56 Dose: 20 mg Folic Acid (Folic Acid) 1 mg PO DAILY [facility] Last Admin: 05/21/17 10:56 Dose: 1 mg Gabapentin (Neurontin) 100 mg PO TID [facility] Last Admin: 05/21/17 13:51 Dose: 100 mg Multivitamins (Hexavitamin) 1 tab PO DAILY [facility] Last Admin: 05/21/17 10:56 Dose: 1 tab Fluticasone/Salmeterol (Advair Diskus 250/50) 1 puff INH RQ12 [facility] Last Admin: 05/21/17 08:53 Dose: 1 puff Sertraline HCl (Zoloft) 100 mg PO DAILY [facility] Last Admin: 05/21/17 11:20 Dose: 100 mg Thiamine HCl (Vitamin B1 Tab) 100 mg PO DAILY [facility] Last Admin: 05/21/17 10:56 Dose: 100 mg Tiotropium [place] (Spiriva) 18 mcg INH RQ24 [facility] Last Admin: 05/21/17 08:54 Dose: 18 mcg - Labs Labs: 05/21/17 07:25 05/21/17 07:25 Attending/Attestation - Attestation I have personally seen and examined this patient.: Yes I have fully participated in the care of the patient.: Yes I have reviewed all pertinent clinical information, including history, physical exam and plan: Yes Notes (Text): 05/21/17 15:39 Medical attending: Patient was seen and examined by me, agree with the above note by medical record transcriber. The patient reported that his breathing was a lot better. He also reported being able to sleep as well. He is tolerating his diet okay. Thank you very much, Suman Rojas
[2017-05-22] MEDS: Albuterol-Ipratrop 3 mg / 0.5 (3 ml) UD INH SCH ×6 (00:50→20:32)
[2017-05-22] MEDS: Tiotropium 18 mcg Cap For Inhalation INH SCH (08:52)
[2017-05-22] MEDS: Fluticasone-Salmeterol 250-50mcg Diskus INH SCH ×2 (08:52→20:30)
[2017-05-22] MEDS: Multiple Vitamins Tab PO SCH (09:41)
[2017-05-22] MEDS: Enoxaparin 40 mg Syringe SC SCH (09:42)
--- NOTE | 2017-05-22 10:34 | PCM.PYCHPN ---
Psychiatric Progress Note - Psychiatric Progress Note Patient seen today, length of contact: 17 min Patient Chief Complaint: "I'm still depressed" Problems Identified/Issues Discussed: The pt is seen, chart reviewed, case discussed with staff. The pt is compliant with medications and reports no side-effects. Symptoms are improving slowly but needs more time to stabilize. After care discussed, support and psychoeducation given. He is also interested in inpatient rehab. [facility] Hotline number given yesterday but he does not have $ in his phone to call. That makes him more depressed. Not suicidal but not well yet. Medication Change: Yes (detox changes daily) Medical Record Reviewed: Yes Mental Status Examination - Cognitive Function Orientation: Person, Place, Situation, Time Memory: Impaired Attention: Poor Concentration: Poor Association: WNL Fund of Knowledge: WNL - Mood Mood: Depressed, Anxious - Affect Affect: Constricted - Speech Speech: Appropriate, Soft - Formal Thought Process Formal Thought Process: No Impairment - Suicidal Ideation Suicidal Ideation: No - Homicidal Ideation Homicidal Ideation: No Goal/Treatment Plan - Goal/Treatment Plan Need for Continued Stay: Discharge may exacerbated symptoms, Severe functional impairment, Other (medical) Progress Toward Problem(s) and Goals/Treatment Plan: Continue medications Support and psychoeducation daily Attend groups and activities daily After care planning by SW - consider inpatient rehab but also consider transfer to [facility] if he remains as depressed
--- NOTE | 2017-05-22 13:46 | CP.PCM.PN ---
<SaadiaMilton R - Last Filed: 05/22/17 13:42> Subjective - Date & Time of Evaluation Date of Evaluation: 05/22/17 Time of Evaluation: 13:42 - Subjective Subjective: Patient was examined at bedside. Patient not in acute distress. Patient did not have any medical complaints. He stated he is able to sleep, eat and have regular bowel movements and urinating normally. Patient denies chest pain, shortness of breath, diarrhea, nausea, vomiting, bleeding. Objective - Vital Signs/Intake and Output Vital Signs (last 24 hours): Temp Pulse Resp BP Pulse Ox 97.7 F 79 20 109/78 97 05/22/17 07:33 05/22/17 07:33 05/22/17 07:33 05/22/17 07:33 05/22/17 07:33 Intake and Output: 05/22/17 05/22/17 06:59 18:59 Intake Total 470 Balance 470 - Medications Medications: Current Medications Albuterol/Ipratropium (Duoneb 3 Mg/0.5 Mg (3 Ml) Ud) 3 ml INH RQ4 [facility] Last Admin: 05/22/17 11:46 Dose: 3 ml Chlordiazepoxide (Librium) 25 mg PO BID [facility] PRN Reason: Taper Stop: 05/23/17 23:59 Last Admin: 05/22/17 09:41 Dose: 25 mg Enoxaparin Sodium (Lovenox) 40 mg SC DAILY [facility] Last Admin: 05/22/17 09:42 Dose: 40 mg Famotidine (Pepcid) 20 mg PO BID [facility] Last Admin: 05/22/17 09:41 Dose: 20 mg Folic Acid (Folic Acid) 1 mg PO DAILY [facility] Last Admin: 05/22/17 09:42 Dose: 1 mg Gabapentin (Neurontin) 100 mg PO TID [facility] Last Admin: 05/22/17 09:41 Dose: 100 mg Mirtazapine (Remeron) 15 mg PO HS [facility] Last Admin: 05/22/17 00:50 Dose: 15 mg Multivitamins (Hexavitamin) 1 tab PO DAILY [facility] Last Admin: 05/22/17 09:41 Dose: 1 tab Fluticasone/Salmeterol (Advair Diskus 250/50) 1 puff INH RQ12 [facility] Last Admin: 06/28/17 08:52 Dose: 1 puff Sertraline HCl (Zoloft) 100 mg PO DAILY [facility] Last Admin: 05/22/17 09:47 Dose: 100 mg Thiamine HCl (Vitamin B1 Tab) 100 mg PO DAILY [facility] Last Admin: 05/22/17 09:42 Dose: 100 mg Tiotropium [place] (Spiriva) 18 mcg INH RQ24 [facility] Last Admin: 05/22/17 08:52 Dose: 18 mcg - Constitutional Appears: Well, No Acute Distress - Head Exam Head Exam: NORMAL INSPECTION - Eye Exam Eye Exam: EOMI, Normal appearance, PERRL Pupil Exam: NORMAL ACCOMODATION, PERRL - ENT Exam ENT Exam: Mucous Membranes Moist, Normal Exam - Neck Exam Neck Exam: Full ROM, Normal Inspection. absent: Lymphadenopathy - Respiratory Exam Respiratory Exam: Wheezes - Cardiovascular Exam Cardiovascular Exam: REGULAR RHYTHM - GI/Abdominal Exam GI & Abdominal Exam: Soft, Normal Bowel Sounds. absent: Tenderness - Rectal Exam Rectal Exam: Deferred - Extremities Exam Extremities Exam: Full ROM, Normal Capillary Refill, Normal Inspection. absent : Joint Swelling, Pedal Edema - Neurological Exam Neurological Exam: Alert, Awake, CN II-XII Intact, Normal Gait, Oriented x3 - Psychiatric Exam Psychiatric exam: Normal Affect, Normal Mood - Skin Skin Exam: Dry, Intact, Normal Color, Warm Assessment and Plan - Assessment and Plan (Free Text) Assessment: - Assessment and Plan (Free Text) Assessment: Patient is stable from medicine's point of view. Due to his ongoing depression and alcohol use disorder, he will be transferred to under Dr. Alonzo's service. The patient does not have any IV lines and is safe to transfer. Alcohol Use Disorder Monitor for signs of withdrawal Alcohol level 273 UDS negative Librium taper Mv/thiamine/folic acid aspiration/seizure precautions fluids discontinued [05/21] psych consulted, help appreciated magnesium level 1.8 [05/21] f/u am labs Depression Zoloft 100mg PO daily Psych consulted, help appreciated. Per psych [05/21]: "Continue medications Support and psychoeducation daily Attend groups and activities daily After care planning by SW - consider inpatient rehab" Pt would like to be admitted to psych floor monitor for suicidal/homicidal ideations per crisis - no need for 1:1\\ Dr. Ruby (psych) called - stated no beds available in psych unit COPD exacerbation Duonebs RQ4 [facility] Advair 250/50 Spiriva was recently on steroids Peak flow 175 Chest X ray - hyperinflation, no signs of pneumonia or other acute pathology Leukocytosis WBC 10.9 [05/19] WBC 6.7 [05/20] WBC 8.4 [05/21] afebrile Was recently on steroids UA normal Hypotension BP 98/53 in the ED Normalized with Fluid bolus Right calf pain venous doppler ordered, f/u Prophylactic Measures Lovenox 40mg SC daily Pepcid 20mg PO BID Heart Healthy diet SCDs <Suman Rojas H - Last Filed: 05/22/17 17:47> Objective - Vital Signs/Intake and Output Vital Signs (last 24 hours): Temp Pulse Resp BP Pulse Ox 98.5 F 102 H 20 118/74 97 05/22/17 16:02 05/22/17 16:02 05/22/17 16:02 05/22/17 16:02 05/22/17 07:33 Intake and Output: 05/22/17 05/22/17 06:59 18:59 Intake Total 470 240 Balance 470 240 - Medications Medications: Current Medications Albuterol/Ipratropium (Duoneb 3 Mg/0.5 Mg (3 Ml) Ud) 3 ml INH RQ4 [facility] Last Admin: 05/22/17 11:46 Dose: 3 ml Chlordiazepoxide (Librium) 25 mg PO BID [facility] PRN Reason: Taper Stop: 05/23/17 23:59 Last Admin: 05/22/17 09:41 Dose: 25 mg Famotidine (Pepcid) 20 mg PO BID [facility] Last Admin: 05/22/17 09:41 Dose: 20 mg Folic Acid (Folic Acid) 1 mg PO DAILY [facility] Last Admin: 05/22/17 09:42 Dose: 1 mg Gabapentin (Neurontin) 100 mg PO TID [facility] Last Admin: 05/22/17 14:00 Dose: 100 mg Mirtazapine (Remeron) 15 mg PO HS [facility] Last Admin: 05/22/17 00:50 Dose: 15 mg Multivitamins (Hexavitamin) 1 tab PO DAILY [facility] Last Admin: 05/22/17 09:41 Dose: 1 tab Fluticasone/Salmeterol (Advair Diskus 250/50) 1 puff INH RQ12 [facility] Last Admin: 05/22/17 08:52 Dose: 1 puff Sertraline HCl (Zoloft) 100 mg PO DAILY [facility] Last Admin: 05/22/17 09:47 Dose: 100 mg Thiamine HCl (Vitamin B1 Tab) 100 mg PO DAILY [facility] Last Admin: 05/22/17 09:42 Dose: 100 mg Tiotropium [place] (Spiriva) 18 mcg INH RQ24 [facility] Last Admin: 05/22/17 08:52 Dose: 18 mcg Attending/Attestation - Attestation I have personally seen and examined this patient.: Yes I have fully participated in the care of the patient.: Yes I have reviewed all pertinent clinical information, including history, physical exam and plan: Yes Notes (Text): 05/22/17 17:46 Medical attending: Patient was seen and examined by me, agrees the above note by chief medical director. The patient explains that he was able to sleep fairly well last night, his breathing is also improved from before. We discussed the patient about what we are to go into now, and the next step appears to be to move the patient over to the psychiatry team. The patient is aware of this. While under psychiatry care will continue to see the patient with regards to his breathing He is now off of the IV Solu-Medrol, and changed over to PO prednisone Thank you very much, Suman Rojas
[2017-05-23] MEDS: Albuterol-Ipratrop 3 mg / 0.5 (3 ml) UD INH SCH ×3 (00:02→09:06)
[2017-05-23] MEDS: Fluticasone-Salmeterol 250-50mcg Diskus INH SCH ×2 (09:06→20:14)
[2017-05-23] MEDS: Multiple Vitamins Tab PO SCH (10:22)
--- NOTE | 2017-05-23 10:27 | VASCLAB ---
PROCEDURE: Lower Extremity Venous Duplex Exam. HISTORY: Homans sign, calf pain PRIORS: Last exam 05/01/2017,normal. TECHNIQUE: Bilateral common femoral, femoral, popliteal and posterior tibial, peroneal and great saphenous veins were evaluated. Flow was assessed with color Doppler, compressibility, assessment of phasic flow and augmentation response. Report prepared by NIYAH Alvarez FINDINGS: RIGHT: 1. Common Femoral Vein: 1.1. Compressibility - Fully compressible: Thrombus - None : Flow - Phasic: Augmentation -Normal: Reflux - None. 2. Femoral Vein: 2.1. Compressibility - Fully compressible: Thrombus - None : Flow - Phasic: Augmentation -Normal: Reflux - None. 3. Popliteal Vein: 3.1. Compressibility - Fully compressible: Thrombus - None : Flow - Phasic: Augmentation -Normal: Reflux - None. 4. Posterior Tibial Vein: 4.1. Compressibility - Fully compressible: Thrombus - None: Flow - Phasic: Augmentation -Normal: Reflux - None. 5. Peroneal Vein: 5.1. Compressibility - Fully compressible: Thrombus - None: Flow - Phasic: Augmentation -Normal: Reflux - None. 6. Great Saphenous Vein: 6.1. Compressibility - Fully compressible: Thrombus - None: Flow - Phasic: Augmentation - Normal: Reflux - None. LEFT: 1. Common Femoral Vein: 1.1. Compressibility - Fully compressible: Thrombus - None: Flow - Phasic: Augmentation -Normal: Reflux - None. 2. Femoral Vein: 2.1. Compressibility - Fully compressible: Thrombus - None: Flow - Phasic: Augmentation -Normal: Reflux - None. 3. Popliteal Vein: 3.1. Compressibility - Fully compressible: Thrombus - None : Flow - Phasic: Augmentation -Normal: Reflux - None. 4. Posterior Tibial Vein: 4.1. Compressibility - Fully compressible: Thrombus - None: Flow - Phasic: Augmentation -Normal: Reflux - None. 5. Peroneal Vein: 5.1. Compressibility - Fully compressible: Thrombus - None: Flow - Phasic: Augmentation -Normal: Reflux - None. 6. Great Saphenous Vein: 6.1. Compressibility - Fully compressible: Thrombus - None: Flow - Phasic: Augmentation - Normal: Reflux - None. OTHER FINDINGS: Right: None significant. Left: None significant. IMPRESSION: Right: No evidence of deep or superficial vein thrombosis of the right lower extremity. Normal valve function noted of the right side. Left: No evidence of deep or superficial vein thrombosis of the left lower extremity. Normal valve function noted of the left side.
--- NOTE | 2017-05-23 13:52 | PCM.PYCHPN ---
Psychiatric Progress Note - Psychiatric Progress Note Patient seen today, length of contact: 16 min Patient Chief Complaint: "Worried" Problems Identified/Issues Discussed: The pt is seen, chart reviewed, case discussed with staff. Support given, CBT and [place] used briefly No new symptoms reported, improving slowly and needs more time No SEs from medications, risks discussed. After care discussed - list of rehabs and [facility] number given again Medication Change: Yes (detox changes daily) Medical Record Reviewed: Yes Mental Status Examination - Cognitive Function Orientation: Person, Place, Situation, Time Memory: Impaired Attention: Poor Concentration: Poor Association: WNL Fund of Knowledge: WNL - Mood Mood: Depressed, Anxious - Affect Affect: Constricted - Speech Speech: Appropriate, Soft - Formal Thought Process Formal Thought Process: No Impairment - Suicidal Ideation Suicidal Ideation: No - Homicidal Ideation Homicidal Ideation: No Goal/Treatment Plan - Goal/Treatment Plan Need for Continued Stay: Discharge may exacerbated symptoms, Severe functional impairment Progress Toward Problem(s) and Goals/Treatment Plan: Continue medications Support and psychoeducation daily Attend groups and activities daily After care planning by SW - rehab Estimated Date of D/C: 05/27/17
[2017-05-23] MEDS: Tiotropium 18 mcg Cap For Inhalation INH SCH (13:58)
[2017-05-24] MEDS: Albuterol-Ipratrop 3 mg / 0.5 (3 ml) UD INH SCH ×5 (05:57→20:36)
[2017-05-24] MEDS: Fluticasone-Salmeterol 250-50mcg Diskus INH SCH ×2 (07:56→20:36)
[2017-05-24] MEDS: Tiotropium 18 mcg Cap For Inhalation INH SCH (07:56)
[2017-05-24] MEDS ORDERED: Barium Sulfate for Susp 96% w/w 176g Bottle PR ONE (08:34)
[2017-05-24] MEDS ORDERED: Barium Sulfate for Susp 98% w/w 340g Bottle ONE (08:35)
--- NOTE | 2017-05-24 10:27 | RAD ---
HISTORY: coughing COMPARISON: 05/19/2017 FINDINGS: LUNGS: Mild pulmonary hyperinflation. Possible emphysema. No pulmonary infiltrate. PLEURA: No significant pleural effusion identified, no pneumothorax apparent. CARDIOVASCULAR: Normal. OSSEOUS STRUCTURES: No significant abnormalities. VISUALIZED UPPER ABDOMEN: Normal. OTHER FINDINGS: None. IMPRESSION: No infiltrate. Pulmonary hyperinflation suggestive of emphysema.
[2017-05-24] MEDS: Multiple Vitamins Tab PO SCH (14:37)
--- NOTE | 2017-05-24 14:41 | PCM.PYCHPN ---
Psychiatric Progress Note - Psychiatric Progress Note Patient seen today, length of contact: 16 min Patient Chief Complaint: "Not well" Problems Identified/Issues Discussed: The pt is seen, chart reviewed, case discussed with staff. Support given, CBT and [place] used briefly No new symptoms reported, improving slowly and needs some more time No SEs from medications, risks discussed. After care discussed - still interested in rehab and our SW faxed his documents to a rehab already. Meanwhile he began complaining of dysphagia. Med consult appreciated, diet changed, will follow EGD Medication Change: No Medical Record Reviewed: Yes Mental Status Examination - Cognitive Function Orientation: Person, Place, Situation, Time Memory: Impaired Attention: Poor Concentration: Poor Association: WNL Fund of Knowledge: WNL - Mood Mood: Depressed, Anxious - Affect Affect: Constricted - Speech Speech: Appropriate, Soft - Formal Thought Process Formal Thought Process: No Impairment - Suicidal Ideation Suicidal Ideation: No - Homicidal Ideation Homicidal Ideation: No Goal/Treatment Plan - Goal/Treatment Plan Need for Continued Stay: Discharge may exacerbated symptoms, Severe functional impairment Progress Toward Problem(s) and Goals/Treatment Plan: Continue medications Support and psychoeducation daily Attend groups and activities daily After care planning by GABE - rehab Estimated Date of D/C: 05/27/17
[2017-05-24] MEDS ORDERED: DiphenhydrAMINE 50 mg/ml Inj IM STA (16:49)
--- NOTE | 2017-05-24 17:27 | RAD ---
Esophagram dated 05/24/2017 Single contrast esophagram performed. Findings: The current study reveals marked irregular narrowing/stricture in the distal 1/2 -- 1/3 of the esophagus with shouldering at the superior margin of the stricture with irregular wrapped tail appearance of the esophagus distal to this area. These findings are consistent with esophageal carcinoma. Endoscopy followup suggested to confirm. Patient was unable to continue the upper GI portion of this procedure procedure due to dysphagia and vomiting and the study was therefore terminated. The distal esophagus was significantly stenotic and irregular on as detailed above. No obvious hiatal hernia Impression: Marked irregular stricturing of the distal 1/2--1/3 of the esophagus consistent with esophageal carcinoma. Endoscopy followup recommended to confirm. Note these findings were discussed with 5 Main Tobias at approximately 5:15 p.m. with written down and read back verification.
--- NOTE | 2017-05-24 21:14 | CP.PCM.CON ---
History of Present Illness - History of Present Illness History of Present Illness: Covering Dr Ball 57 yo White male with h/o depression, COPD, multiple substance abuse admitted for breathing problems and desiring in patient psychiatric help for depression and anxiety. Patient reports difficulty swallowing and Esophagram performed shows possible stenosing mass in mid to lower esophagus with a "shelf-effect" c/ w esophageal carcinoma. Patient unable to complete full UGI Series. GI and surgical evaluation was requested. Patient is followed in the clinic by Dr Dawson and her team. Past Patient History - Infectious Disease Hx of Infectious Diseases: None - Past Medical History & Family History Past Medical History?: Yes - Past Social History Smoking Status: Smoker Currrent Status Unknown - CARDIAC Hx Hypertension: Yes - PULMONARY Hx Asthma: Yes Hx Bronchitis: Yes Hx Chronic Obstructive Pulmonary Disease (COPD): Yes - NEUROLOGICAL Hx Seizures: No - HEENT Hx HEENT Problems: No - RENAL Hx Chronic Kidney Disease: No - ENDOCRINE/METABOLIC Hx Endocrine Disorders: No - HEMATOLOGICAL/ONCOLOGICAL Hx Human Immunodeficiency Virus (HIV): No - INTEGUMENTARY Hx Dermatological Problems: No - MUSCULOSKELETAL/RHEUMATOLOGICAL Hx Falls: No - GASTROINTESTINAL Hx Gastrointestinal Disorders: Yes Hx Gastroesophageal Reflux: Yes Hx Ulcer: Yes - GENITOURINARY/GYNECOLOGICAL Hx Genitourinary Disorders: No Hx Sexually Transmitted Disorders: No - PSYCHIATRIC Hx Substance Use: Yes (heroin and marijuana) - SURGICAL HISTORY Hx Appendectomy: Yes Hx Tonsillectomy: Yes - ANESTHESIA Hx Anesthesia: Yes Hx Anesthesia Reactions: No Hx Malignant Hyperthermia: No Has any member of the family had a problem w/ anesthesia?: No Meds Allergies/Adverse Reactions: Allergies Allergy/AdvReac Type Severity Reaction Status Date / Time No Known Allergies Allergy Verified 04/22/17 09:39 - Medications Medications: Current Medications Albuterol/Ipratropium (Duoneb 3 Mg/0.5 Mg (3 Ml) Ud) 3 ml INH RQ4 [facility] Last Admin: 05/24/17 20:36 Dose: Not Given Famotidine (Pepcid) 20 mg PO BID [facility] Last Admin: 05/24/17 18:05 Dose: Not Given Folic Acid (Folic Acid) 1 mg PO DAILY [facility] Last Admin: 05/24/17 14:36 Dose: Not Given Gabapentin (Neurontin) 100 mg PO TID [facility] Last Admin: 05/24/17 18:05 Dose: Not Given Heparin Sodium (Porcine) (Heparin) 5,000 units SC Q12 [facility] Multivitamins (Hexavitamin) 1 tab PO DAILY [facility] Last Admin: 05/24/17 14:37 Dose: Not Given Ondansetron HCl (Zofran Odt) 4 mg PO Q6 PRN PRN Reason: Nausea/Vomiting Fluticasone/Salmeterol (Advair Diskus 250/50) 1 puff INH RQ12 [facility] Last Admin: 05/24/17 20:36 Dose: Not Given Sertraline HCl (Zoloft) 100 mg PO DAILY [facility] Last Admin: 05/24/17 14:40 Dose: Not Given Thiamine HCl (Vitamin B1 Tab) 100 mg PO DAILY [facility] Last Admin: 05/24/17 14:40 Dose: Not Given Tiotropium [place] (Spiriva) 18 mcg INH RQ24 [facility] Last Admin: 05/24/17 07:56 Dose: 18 mcg Physical Exam - Constitutional Appears: No Acute Distress - Head Exam Head Exam: ATRAUMATIC, NORMOCEPHALIC - Respiratory Exam Respiratory Exam: NORMAL BREATHING PATTERN - Cardiovascular Exam Cardiovascular Exam: REGULAR RHYTHM, +S1 - GI/Abdominal Exam GI & Abdominal Exam: Normal Bowel Sounds, Soft. absent: Mass, Rebound, Tenderness - Extremities Exam Extremities exam: Positive for: normal inspection - Neurological Exam Neurological exam: Alert, Oriented x3 - Psychiatric Exam Psychiatric exam: Anxious, Normal Affect Results - Vital Signs Recent Vital Signs: Last Vital Signs Temp 98.6 F 05/24/17 16:46 Pulse 62 05/24/17 16:46 Resp 18 05/24/17 16:46 BP 116/82 05/24/17 16:46 Pulse Ox 96 05/24/17 16:46 - Labs Result Diagrams: 05/21/17 07:25 05/25/17 07:26 Assessment & Plan (1) Dysphagia Status: Acute (2) Abnormal esophagram Assessment and Plan: Findings appear suggestive of an esophageal malignancy vs benign peptic stricture. Patient with h/o perforated ulcer in the past. Will obtain CT Scan of Chest with and without contrast to better delineate extent of possible mass Will plan for EGD to evaluate next week Advise clear liquid or nectar thick liquid diet only to avoid obstruction with food CT Surgery consultation advised. Full consultation to follow. Status: Acute
[2017-05-25] MEDS: Albuterol-Ipratrop 3 mg / 0.5 (3 ml) UD INH SCH ×5 (04:07→20:15)
[2017-05-25] MEDS: Tiotropium 18 mcg Cap For Inhalation INH SCH (07:45)
[2017-05-25] MEDS: Fluticasone-Salmeterol 250-50mcg Diskus INH SCH ×2 (07:45→20:35)
[2017-05-25 08:27] LABS: GFR AFRICAN-AMERICAN > 60; GFR NON-AFRICAN AMERICAN > 60
[2017-05-25 08:28] LABS: BLOOD UREA NITROGEN 21 mg/dL (9-20); CALCIUM 8.9 mg/dl (8.6-10.4)
[2017-05-25] MEDS: Multiple Vitamins Tab PO SCH (10:01)
[2017-05-25] MEDS: Dextrose 5%/0.45% NS 1,000 ML IV SCH (21:41)
[2017-05-26] MEDS: Albuterol-Ipratrop 3 mg / 0.5 (3 ml) UD INH SCH ×7 (00:55→23:51)
[2017-05-26] MEDS: Dextrose 5%/0.45% NS 1,000 ML IV SCH ×3 (07:30→17:30)
[2017-05-26] MEDS ORDERED: Propofol 10 mg/ml Inj (20 ML) ONE (08:07)
[2017-05-26] MEDS: Fluticasone-Salmeterol 250-50mcg Diskus INH SCH ×2 (08:10→20:03)
[2017-05-26] MEDS: Tiotropium 18 mcg Cap For Inhalation INH SCH (08:10)
[2017-05-26 08:23] LABS: BASO % 0.2 % (0.0-2.0); EOS # 0.1 K/uL (0.0-0.7); EOS % 1.5 % (0.0-4.0); HEMOGLOBIN 14.4 g/dL (12.0-18.0); LYMPH # 1.6 K/uL (1.0-4.3); MEAN CELL VOLUME 94.8 fL (80.0-94.0); MEAN CORPUSCULAR HEMOGLOBIN 31.1 pg (27.0-31.0); MEAN CORPUSCULAR HGB CONC 32.8 g/dL (33.0-37.0); MEAN PLATELET VOLUME 8.8 fL (7.2-11.7); MONO # 0.6 K/uL (0.0-0.8); NEUT # 6.1 K/uL (1.8-7.0); NEUT % 72.3 % (50.0-75.0); RBC 4.62 Mil/uL (4.40-5.90); RED CELL DISTRIBUTION WIDTH 15.9 % (11.5-14.5); WHITE BLOOD COUNT 8.5 K/uL (4.8-10.8)
--- NOTE | 2017-05-26 08:40 | CP.PCM.PN ---
Subjective - Date & Time of Evaluation Date of Evaluation: 05/26/17 Time of Evaluation: 08:24 - Subjective Subjective: Brief EGD report: Large obstructing food impaction with large piece of baked potato. Attempted to remove by breaking it up with snare, rat tooth forceps were successful in breaking off pieces of foreign body but unable to get around and below it. Unable to push into stomach as suspected stricture beneath the foreign body. ( tripod type grabbing device was not reordered nor instock for procedure. Rec/ Keep NPO Need CT Surgical consult for rigid esophagoscopy to remove foreign body. Objective - Vital Signs/Intake and Output Vital Signs (last 24 hours): Temp Pulse Resp BP Pulse Ox 97.8 F 78 20 107/75 97 05/26/17 06:37 05/26/17 06:37 05/26/17 06:37 05/26/17 06:37 05/26/17 06:37 Intake and Output: 05/26/17 05/26/17 06:59 18:59 Intake Total 2100 Output Total 800 Balance 1300 - Medications Medications: Current Medications Albuterol/Ipratropium (Duoneb 3 Mg/0.5 Mg (3 Ml) Ud) 3 ml INH RQ4 [facility] Last Admin: 05/26/17 03:21 Dose: Not Given Famotidine (Pepcid) 20 mg PO BID [facility] Last Admin: 05/25/17 10:06 Dose: Not Given Folic Acid (Folic Acid) 1 mg PO DAILY [facility] Last Admin: 05/25/17 10:01 Dose: Not Given Gabapentin (Neurontin) 100 mg PO TID [facility] Last Admin: 05/25/17 10:06 Dose: Not Given Heparin Sodium (Porcine) (Heparin) 5,000 units SC Q12 [facility] Last Admin: 05/25/17 21:38 Dose: 5,000 units Dextrose/Sodium Chloride (Dextrose 5%/0.45% Ns 1000 Ml) 1,000 mls @ 100 mls/hr IV .Q10H [facility] Last Admin: 05/26/17 07:30 Dose: Not Given Multivitamins (Hexavitamin) 1 tab PO DAILY [facility] Last Admin: 05/25/17 10:01 Dose: Not Given Ondansetron HCl (Zofran Odt) 4 mg PO Q6 PRN PRN Reason: Nausea/Vomiting Last Admin: 05/26/17 00:37 Dose: 4 mg Fluticasone/Salmeterol (Advair Diskus 250/50) 1 puff INH RQ12 [facility] Last Admin: 05/25/17 20:35 Dose: 1 puff Sertraline HCl (Zoloft) 100 mg PO DAILY [facility] Last Admin: 05/25/17 10:07 Dose: Not Given Thiamine HCl (Vitamin B1 Tab) 100 mg PO DAILY [facility] Last Admin: 05/25/17 10:06 Dose: Not Given Tiotropium [place] (Spiriva) 18 mcg INH RQ24 [facility] Last Admin: 05/25/17 07:45 Dose: 18 mcg - Labs Labs: 05/25/17 07:26 APTT 37 SECONDS (21-34) H 05/25/17 07:26 Assessment and Plan (1) Dysphagia Status: Acute (2) Abnormal esophagram Status: Acute
[2017-05-26 08:59] LABS: ALBUMIN 3.6 g/dL (3.5-5.0)
[2017-05-26 09:02] LABS: ALB/GLOB RATIO 1.2 (1.0-2.1); AST/SGOT 38 U/L (17-59); BLOOD UREA NITROGEN 25 mg/dL (9-20); GFR AFRICAN-AMERICAN > 60; GFR NON-AFRICAN AMERICAN > 60
[2017-05-26 09:03] LABS: ALT/SGPT 30 U/L (21-72); CALCIUM 8.5 mg/dl (8.6-10.4); MAGNESIUM 2.1 mg/dL (1.6-2.3)
[2017-05-26] MEDS: Multiple Vitamins Tab PO SCH (10:45)
--- NOTE | 2017-05-26 14:57 | CP.PCM.PN ---
Subjective - Date & Time of Evaluation Date of Evaluation: 05/26/17 Time of Evaluation: 09:15 - Subjective Subjective: Medicine Note (PGY 1) : Dr. Rojas's service Patient was seen and examined at bedside s/p endoscopy. Patient not in acute distress. Patient did not have any medical complaints. Patient denies chest pain , sob, fever, chills, abd pain, nausea and vomiting but continues to experience minimal dysphagia. Objective - Vital Signs/Intake and Output Vital Signs (last 24 hours): Temp Pulse Resp BP Pulse Ox 97.2 F L 87 13 98/58 L 97 05/26/17 10:15 05/26/17 10:15 05/26/17 10:15 05/26/17 10:15 05/26/17 10:15 Intake and Output: 05/26/17 05/26/17 06:59 18:59 Intake Total 2100 750 Output Total 800 Balance 1300 750 - Medications Medications: Current Medications Albuterol/Ipratropium (Duoneb 3 Mg/0.5 Mg (3 Ml) Ud) 3 ml INH RQ4 [facility] Last Admin: 05/26/17 11:30 Dose: 3 ml Famotidine (Pepcid) 20 mg PO BID [facility] Last Admin: 05/26/17 10:45 Dose: Not Given Folic Acid (Folic Acid) 1 mg PO DAILY [facility] Last Admin: 05/26/17 10:45 Dose: Not Given Gabapentin (Neurontin) 100 mg PO TID [facility] Last Admin: 05/26/17 14:46 Dose: Not Given Heparin Sodium (Porcine) (Heparin) 5,000 units SC Q12 [facility] Last Admin: 05/26/17 10:45 Dose: Not Given Dextrose/Sodium Chloride (Dextrose 5%/0.45% Ns 1000 Ml) 1,000 mls @ 100 mls/hr IV .Q10H [facility] Last Admin: 05/26/17 13:48 Dose: 100 mls/hr Morphine Sulfate (Morphine) 1 mg IVP Q4 PRN PRN Reason: Pain, moderate (4-7) Last Admin: 05/26/17 14:53 Dose: 1 mg Multivitamins (Hexavitamin) 1 tab PO DAILY [facility] Last Admin: 05/26/17 10:45 Dose: Not Given Ondansetron HCl (Zofran Odt) 4 mg PO Q6 PRN PRN Reason: Nausea/Vomiting Last Admin: 05/26/17 00:37 Dose: 4 mg Fluticasone/Salmeterol (Advair Diskus 250/50) 1 puff INH RQ12 [facility] Last Admin: 05/26/17 08:10 Dose: 1 puff Sertraline HCl (Zoloft) 100 mg PO DAILY [facility] Last Admin: 05/26/17 10:45 Dose: Not Given Thiamine HCl (Vitamin B1 Tab) 100 mg PO DAILY [facility] Last Admin: 05/26/17 10:45 Dose: Not Given Tiotropium [place] (Spiriva) 18 mcg INH RQ24 [facility] Last Admin: 05/26/17 08:10 Dose: 18 mcg - Labs Labs: 05/26/17 08:16 05/26/17 08:16 APTT 37 SECONDS (21-34) H 05/25/17 07:26 - Constitutional Appears: Well, No Acute Distress - Head Exam Head Exam: NORMAL INSPECTION, NORMOCEPHALIC - Eye Exam Eye Exam: EOMI, Normal appearance - ENT Exam ENT Exam: Mucous Membranes Moist, Normal Exam - Respiratory Exam Respiratory Exam: Clear to Ausculation Bilateral, NORMAL BREATHING PATTERN - Cardiovascular Exam Cardiovascular Exam: REGULAR RHYTHM, +S1, +S2 - GI/Abdominal Exam GI & Abdominal Exam: Soft, Normal Bowel Sounds - Extremities Exam Extremities Exam: Normal Capillary Refill, Normal Inspection - Neurological Exam Neurological Exam: Alert, Awake, Oriented x3 - Psychiatric Exam Psychiatric exam: Normal Affect, Normal Mood - Skin Skin Exam: Dry, Normal Color, Warm Assessment and Plan (1) Dysphagia Assessment & Plan: GI Consult ( Dr. Beach) ---> Help appreciated (05/24/17)Esophagram: Findings appear suggestive of an esophageal malignancy vs benign peptic stricture. Will obtain CT Scan of Chest with and without contrast to better delineate extent of possible mass Will plan for EGD to evaluate next week Advise clear liquid or nectar thick liquid diet only to avoid obstruction with food CT Surgery consultation advised. EGD (05/26/17): Findings: Food was found in the lower third esophagus. Removal was only partially accomplished with a rat-toothed forceps. The foreign body was large chunk of potato that cannot be broken off nor could a snare pass beneath the lesion to break it up further. No mass was identified and the lesion seen on barium study was likely the large of chunk of food. * Patient would benefit from rigid esophagoscopy under general anesthesia for removal of foreign body and assessment of lower esophagus for stricture or tumor Thoracic surgery consulted (Dr. Petit)---> Help appreciated * CT chest for further eval of esophagus distal to foreign body * Recommend re-attempt on the retrieval of foreign body Status: Acute (2) Alcohol use disorder Assessment & Plan: Monitor for signs of withdrawal Alcohol level 273 UDS negative Librium taper Mv/thiamine/folic acid aspiration/seizure precautions fluids discontinued [05/21] psych consulted, help appreciated magnesium level 1.8 [05/21] Status: Acute (3) Depression Assessment & Plan: Zoloft 100mg PO daily Psych consulted, help appreciated. Per psych [05/21]: "Continue medications Support and psychoeducation daily Attend groups and activities daily After care planning by SW - consider inpatient rehab" Pt would like to be admitted to psych floor monitor for suicidal/homicidal ideations per crisis - no need for 1:1\\ Dr. Ruby (psych) called - stated no beds available in psych unit Status: Acute (4) COPD exacerbation Assessment & Plan: Duonebs RQ4 [facility] Advair 250/50 Spiriva was recently on steroids Peak flow 175 Chest X ray - hyperinflation, no signs of pneumonia or other acute pathology Status: Acute (5) Leucocytosis Assessment & Plan: Resolving (05/26/17: 8.5) WBC 10.9 [05/19] WBC 6.7 [05/20] WBC 8.4 [05/21] afebrile Was recently on steroids UA normal Status: Acute (6) Prophylactic measure Assessment & Plan: Heparin 5000 units SC q12h Pepcid 20mg PO BID Heart Healthy diet SCDs Status: Acute
--- NOTE | 2017-05-26 15:54 | CP.PCM.CON ---
<Bharathi Lambert D - Last Filed: 05/26/17 16:19> History of Present Illness - History of Present Illness History of Present Illness: SURGERY CONSULT NOTE FOR DR. PETIT 57M presents with esophageal foreign body. Patient states on while eating dinner, he all of a sudden vomited some fluids. He states he felt better then started started drinking/eating again but vomited a second time. Patient denies chest pain and abdominal pain. GI attempted EGD and found food (potatoes ) stuck in the distal end of the esophagus. Multiple attempts were made to retrieve foreign body but total retrieval was unsuccessful. Patient now admits eructation which he was not able to do prior to EGD. PMH: COPD, MDD, Alcohol abuse, GI ulcer, [place] PSH: Perf ulcer surgery, 3 pilonidal cyst removal, appendectomy, tonsillectomy Social: Admits to tobacco, alcohol history of marijuana use Allergies: NKDA Past Patient History - Infectious Disease Hx of Infectious Diseases: None - Past Medical History & Family History Past Medical History?: Yes - Past Social History Smoking Status: Smoker Currrent Status Unknown - CARDIAC Hx Hypertension: Yes - PULMONARY Hx Asthma: Yes Hx Bronchitis: Yes Hx Chronic Obstructive Pulmonary Disease (COPD): Yes - NEUROLOGICAL Hx Seizures: No - HEENT Hx HEENT Problems: No - RENAL Hx Chronic Kidney Disease: No - ENDOCRINE/METABOLIC Hx Endocrine Disorders: No - HEMATOLOGICAL/ONCOLOGICAL Hx Human Immunodeficiency Virus (HIV): No - INTEGUMENTARY Hx Dermatological Problems: No - MUSCULOSKELETAL/RHEUMATOLOGICAL Hx Falls: No - GASTROINTESTINAL Hx Gastrointestinal Disorders: Yes Hx Gastroesophageal Reflux: Yes Hx Ulcer: Yes - GENITOURINARY/GYNECOLOGICAL Hx Genitourinary Disorders: No Hx Sexually Transmitted Disorders: No - PSYCHIATRIC Hx Substance Use: Yes (heroin and marijuana) - SURGICAL HISTORY Hx Appendectomy: Yes Hx Tonsillectomy: Yes - ANESTHESIA Hx Anesthesia: Yes Hx Anesthesia Reactions: No Hx Malignant Hyperthermia: No Has any member of the family had a problem w/ anesthesia?: No Meds Allergies/Adverse Reactions: Allergies Allergy/AdvReac Type Severity Reaction Status Date / Time No Known Allergies Allergy Verified 04/22/17 09:39 - Medications Medications: Current Medications Albuterol/Ipratropium (Duoneb 3 Mg/0.5 Mg (3 Ml) Ud) 3 ml INH RQ4 [facility] Last Admin: 05/26/17 11:30 Dose: 3 ml Famotidine (Pepcid) 20 mg PO BID [facility] Last Admin: 05/26/17 10:45 Dose: Not Given Folic Acid (Folic Acid) 1 mg PO DAILY [facility] Last Admin: 05/26/17 10:45 Dose: Not Given Gabapentin (Neurontin) 100 mg PO TID [facility] Last Admin: 05/26/17 14:46 Dose: Not Given Heparin Sodium (Porcine) (Heparin) 5,000 units SC Q12 [facility] Last Admin: 05/26/17 10:45 Dose: Not Given Dextrose/Sodium Chloride (Dextrose 5%/0.45% Ns 1000 Ml) 1,000 mls @ 100 mls/hr IV .Q10H [facility] Last Admin: 05/26/17 13:48 Dose: 100 mls/hr Morphine Sulfate (Morphine) 1 mg IVP Q4 PRN PRN Reason: Pain, moderate (4-7) Last Admin: 05/26/17 14:53 Dose: 1 mg Multivitamins (Hexavitamin) 1 tab PO DAILY [facility] Last Admin: 05/26/17 10:45 Dose: Not Given Ondansetron HCl (Zofran Odt) 4 mg PO Q6 PRN PRN Reason: Nausea/Vomiting Last Admin: 05/26/17 00:37 Dose: 4 mg Fluticasone/Salmeterol (Advair Diskus 250/50) 1 puff INH RQ12 [facility] Last Admin: 05/26/17 08:10 Dose: 1 puff Sertraline HCl (Zoloft) 100 mg PO DAILY [facility] Last Admin: 05/26/17 10:45 Dose: Not Given Thiamine HCl (Vitamin B1 Tab) 100 mg PO DAILY [facility] Last Admin: 05/26/17 10:45 Dose: Not Given Tiotropium [place] (Spiriva) 18 mcg INH RQ24 [facility] Last Admin: 05/26/17 08:10 Dose: 18 mcg Physical Exam - Constitutional Appears: Non-toxic, No Acute Distress - Head Exam Head Exam: ATRAUMATIC - Eye Exam Eye Exam: EOMI, PERRL - ENT Exam ENT Exam: Mucous Membranes Moist - Respiratory Exam Respiratory Exam: Clear to Auscultation Bilateral, NORMAL BREATHING PATTERN - Cardiovascular Exam Cardiovascular Exam: REGULAR RHYTHM, +S1, +S2 - GI/Abdominal Exam GI & Abdominal Exam: Soft. absent: Distended, Firm, Guarding, Rebound, Rigid, Tenderness - Extremities Exam Extremities exam: Negative for: pedal edema, tenderness - Neurological Exam Neurological exam: Alert, Oriented x3 - Skin Skin Exam: Dry, Intact, Normal Color, Warm Results - Vital Signs Recent Vital Signs: Last Vital Signs Temp 97.2 F L 05/26/17 10:15 Pulse 87 05/26/17 10:15 Resp 13 05/26/17 10:15 BP 98/58 L 05/26/17 10:15 Pulse Ox 97 05/26/17 10:15 - Labs Result Diagrams: 05/26/17 08:16 05/26/17 08:16 Labs: Laboratory Results - last 24 hr 05/26/17 05/26/17 08:16 08:16 WBC 8.5 RBC 4.62 Hgb 14.4 Hct 43.8 MCV 94.8 H MCH 31.1 H MCHC 32.8 L RDW 15.9 H Plt Count 147 MPV 8.8 Neut % (Auto) 72.3 Lymph % (Auto) 19.0 L Anderson % (Auto) 7.0 Eos % (Auto) 1.5 Baso % (Auto) 0.2 Neut # 6.1 Lymph # 1.6 Anderson # 0.6 Eos # 0.1 Baso # 0.0 Sodium 140 Potassium 3.6 Chloride 103 Carbon Dioxide 29 Anion Gap 12 BUN 25 H Creatinine 0.7 L Est GFR ( Amer) > 60 Est GFR (Non-Af Amer) > 60 Random Glucose 111 H Calcium 8.5 L Phosphorus 4.0 Magnesium 2.1 Total Bilirubin 0.7 AST 38 ALT 30 Alkaline Phosphatase 69 Total Protein 6.5 Albumin 3.6 Globulin 2.9 Albumin/Globulin Ratio 1.2 Assessment & Plan - Assessment and Plan (Free Text) Assessment: 57M presents with foreign body in the distal esophagus, as seen on EGD done today by Dr. Beach Plan: - CT chest for further eval of esophagus distal to foreign body - Recommend re-attempt on the retrieval of foreign body Discussed with Dr. Marisabel Lambert, PGY2 <Pillo Petit - Last Filed: 05/27/17 13:07> Meds - Medications Medications: Current Medications Albuterol/Ipratropium (Duoneb 3 Mg/0.5 Mg (3 Ml) Ud) 3 ml INH RQ4 [facility] Last Admin: 05/27/17 07:41 Dose: 3 ml Famotidine (Pepcid) 20 mg PO BID [facility] Last Admin: 05/26/17 18:31 Dose: Not Given Folic Acid (Folic Acid) 1 mg PO DAILY [facility] Last Admin: 05/26/17 10:45 Dose: Not Given Gabapentin (Neurontin) 100 mg PO TID [facility] Last Admin: 05/26/17 18:30 Dose: Not Given Heparin Sodium (Porcine) (Heparin) 5,000 units SC Q12 [facility] Last Admin: 05/26/17 22:03 Dose: 5,000 units Dextrose/Sodium Chloride (Dextrose 5%/0.45% Ns 1000 Ml) 1,000 mls @ 100 mls/hr IV .Q10H [facility] Last Admin: 05/27/17 00:55 Dose: 100 mls/hr Potassium Chloride 40 meq/ (Sodium Chloride) 1,020 mls @ 100 mls/hr IV .[id number] [facility] Last Admin: 05/27/17 09:49 Dose: 100 mls/hr Morphine Sulfate (Morphine) 1 mg IVP Q4 PRN PRN Reason: Pain, moderate (4-7) Last Admin: 05/26/17 14:53 Dose: 1 mg Multivitamins (Hexavitamin) 1 tab PO DAILY [facility] Last Admin: 05/26/17 10:45 Dose: Not Given Ondansetron HCl (Zofran Inj) 4 mg IVP Q6 PRN PRN Reason: Nausea/Vomiting Last Admin: 05/27/17 09:44 Dose: 4 mg Fluticasone/Salmeterol (Advair Diskus 250/50) 1 puff INH RQ12 [facility] Last Admin: 05/27/17 07:41 Dose: 1 puff Sertraline HCl (Zoloft) 100 mg PO DAILY [facility] Last Admin: 05/26/17 10:45 Dose: Not Given Thiamine HCl (Vitamin B1 Tab) 100 mg PO DAILY [facility] Last Admin: 05/26/17 10:45 Dose: Not Given Tiotropium [place] (Spiriva) 18 mcg INH RQ24 [facility] Last Admin: 05/26/17 08:10 Dose: 18 mcg Results - Vital Signs Recent Vital Signs: Last Vital Signs Temp 98.2 F 05/27/17 08:00 Pulse 73 05/27/17 08:00 Resp 20 05/27/17 08:00 BP 102/67 05/27/17 08:00 Pulse Ox 97 05/27/17 08:00 - Labs Result Diagrams: 05/27/17 06:00 05/27/17 06:00 Labs: Laboratory Results - last 24 hr 05/27/17 05/27/17 06:00 06:00 WBC 5.7 RBC 3.89 L Hgb 12.2 D Hct 36.8 MCV 94.6 H MCH 31.3 H MCHC 33.1 RDW 15.6 H Plt Count 106 L D MPV 8.5 Neut % (Auto) 68.6 Lymph % (Auto) 18.8 L [place] % (Auto) 9.6 Eos % (Auto) 2.7 Baso % (Auto) 0.3 Neut # 3.9 Lymph # 1.1 Anderson # 0.6 Eos # 0.2 Baso # 0.0 Differential Comment Sodium 135 Potassium 3.2 L Chloride 99 Carbon Dioxide 29 Anion Gap 10 BUN 12 Creatinine 0.6 L Est GFR ( Amer) > 60 Est GFR (Non-Af Amer) > 60 Random Glucose 96 Calcium 7.8 L Phosphorus 4.1 Magnesium 1.8 Total Bilirubin 0.7 AST 23 ALT 23 Alkaline Phosphatase 51 Total Protein 5.6 L Albumin 3.0 L Globulin 2.6 Albumin/Globulin Ratio 1.2 Addendum Addendum: 05/27/17 13:04 pt s/e. does not have a rigid esophagoscope to rx this patient. If repeat endoscopy fails, then transfer to [facility] where he had undergone 3 gatraic surgeries in the past.
[2017-05-26] MEDS ORDERED: Iodixanol 320 MG/ML 100 ML BOTTLE IV ONE (19:09)
[2017-05-27] MEDS: Dextrose 5%/0.45% NS 1,000 ML IV SCH ×4 (00:55→23:30)
[2017-05-27] MEDS: Albuterol-Ipratrop 3 mg / 0.5 (3 ml) UD INH SCH ×4 (03:04→16:26)
[2017-05-27 06:16] LABS: BASO % 0.3 % (0.0-2.0); EOS # 0.2 K/uL (0.0-0.7); EOS % 2.7 % (0.0-4.0); LYMPH # 1.1 K/uL (1.0-4.3); LYMPH % 18.8 % (20.0-40.0); MEAN CELL VOLUME 94.6 fL (80.0-94.0); MEAN CORPUSCULAR HEMOGLOBIN 31.3 pg (27.0-31.0); MEAN CORPUSCULAR HGB CONC 33.1 g/dL (33.0-37.0); MEAN PLATELET VOLUME 8.5 fL (7.2-11.7); MONO # 0.6 K/uL (0.0-0.8); MONO % 9.6 % (0.0-10.0); NEUT # 3.9 K/uL (1.8-7.0); NEUT % 68.6 % (50.0-75.0); RBC 3.89 Mil/uL (4.40-5.90); RED CELL DISTRIBUTION WIDTH 15.6 % (11.5-14.5); WHITE BLOOD COUNT 5.7 K/uL (4.8-10.8)
[2017-05-27 06:21] LABS: HEMOGLOBIN 12.2 g/dL (12.0-18.0)
[2017-05-27 06:30] LABS: AST/SGOT 23 U/L (17-59); GFR AFRICAN-AMERICAN > 60; GFR NON-AFRICAN AMERICAN > 60
[2017-05-27 06:31] LABS: ALT/SGPT 23 U/L (21-72); BLOOD UREA NITROGEN 12 mg/dL (9-20); CALCIUM 7.8 mg/dl (8.6-10.4); MAGNESIUM 1.8 mg/dL (1.6-2.3)
[2017-05-27 06:43] LABS: ALB/GLOB RATIO 1.2 (1.0-2.1)
--- NOTE | 2017-05-27 07:29 | CP.PCM.PN ---
Subjective - Date & Time of Evaluation Date of Evaluation: 05/27/17 Time of Evaluation: 06:45 - Subjective Subjective: Patient seen and examined at bedside. NAEO. Patient states that he had sub- sternal pain last night that resolved with one dose of morphine. Patient has been adhering to NPO diet and denies any nausea or vomiting. States that he is passing gas and belching. Objective - Vital Signs/Intake and Output Vital Signs (last 24 hours): Temp Pulse Resp BP Pulse Ox 97.8 F 75 20 99/63 L 98 05/26/17 23:24 05/27/17 01:05 05/27/17 01:05 05/27/17 01:05 05/27/17 01:05 Intake and Output: 05/27/17 05/27/17 06:59 18:59 Intake Total 800 Balance 800 - Medications Medications: Current Medications Albuterol/Ipratropium (Duoneb 3 Mg/0.5 Mg (3 Ml) Ud) 3 ml INH RQ4 [facility] Last Admin: 05/27/17 03:04 Dose: Not Given Famotidine (Pepcid) 20 mg PO BID [facility] Last Admin: 05/26/17 18:31 Dose: Not Given Folic Acid (Folic Acid) 1 mg PO DAILY [facility] Last Admin: 05/26/17 10:45 Dose: Not Given Gabapentin (Neurontin) 100 mg PO TID [facility] Last Admin: 05/26/17 18:30 Dose: Not Given Heparin Sodium (Porcine) (Heparin) 5,000 units SC Q12 [facility] Last Admin: 05/26/17 22:03 Dose: 5,000 units Dextrose/Sodium Chloride (Dextrose 5%/0.45% Ns 1000 Ml) 1,000 mls @ 100 mls/hr IV .Q10H [facility] Last Admin: 05/27/17 00:55 Dose: 100 mls/hr Morphine Sulfate (Morphine) 1 mg IVP Q4 PRN PRN Reason: Pain, moderate (4-7) Last Admin: 05/26/17 14:53 Dose: 1 mg Multivitamins (Hexavitamin) 1 tab PO DAILY [facility] Last Admin: 05/26/17 10:45 Dose: Not Given Ondansetron HCl (Zofran Inj) 4 mg IVP Q6 PRN PRN Reason: Nausea/Vomiting Last Admin: 05/26/17 18:54 Dose: 4 mg Fluticasone/Salmeterol (Advair Diskus 250/50) 1 puff INH RQ12 [facility] Last Admin: 05/26/17 20:03 Dose: 1 puff Sertraline HCl (Zoloft) 100 mg PO DAILY [facility] Last Admin: 05/26/17 10:45 Dose: Not Given Thiamine HCl (Vitamin B1 Tab) 100 mg PO DAILY [facility] Last Admin: 05/26/17 10:45 Dose: Not Given Tiotropium [place] (Spiriva) 18 mcg INH RQ24 [facility] Last Admin: 05/26/17 08:10 Dose: 18 mcg - Labs Labs: 05/27/17 06:00 05/27/17 06:00 APTT 37 SECONDS (21-34) H 05/25/17 07:26 - Constitutional Appears: Well, Non-toxic, No Acute Distress - Head Exam Head Exam: ATRAUMATIC, NORMOCEPHALIC - Eye Exam Eye Exam: Normal appearance. absent: Conjunctival injection, Scleral icterus - ENT Exam ENT Exam: Mucous Membranes Moist, Normal Oropharynx - Respiratory Exam Respiratory Exam: NORMAL BREATHING PATTERN. absent: Accessory Muscle Use, Respiratory Distress - GI/Abdominal Exam GI & Abdominal Exam: Soft. absent: Distended, Tenderness - Extremities Exam Extremities Exam: absent: Calf Tenderness, Pedal Edema, Tenderness - Neurological Exam Neurological Exam: Alert, Awake, Oriented x3 - Psychiatric Exam Psychiatric exam: Normal Affect, Normal Mood - Skin Skin Exam: Dry, Intact, Normal Color, Warm Assessment and Plan - Assessment and Plan (Free Text) Assessment: 57M with PMH of GERD and dysphagia with food impaction in the distal esophagus Plan: - F/U official CT chest report - Recommend re-attempt on the retrieval of foreign body - F/U GI recs - Anti-reflux regimen, anti-emetics PRN, analgesics - Continue care per primary Further recs per Dr. Marisabel Ovalle, PGY2
[2017-05-27] MEDS: Fluticasone-Salmeterol 250-50mcg Diskus INH SCH ×2 (07:41→19:46)
--- NOTE | 2017-05-27 08:43 | CP.PCM.PN ---
Subjective - Date & Time of Evaluation Date of Evaluation: 05/27/17 Time of Evaluation: 08:38 - Subjective Subjective: No pain or vomiting. Able to swallow saliva Full recommendations documented in addendum to note of 05/26. Objective - Vital Signs/Intake and Output Vital Signs (last 24 hours): Temp Pulse Resp BP Pulse Ox 97.8 F 75 20 99/63 L 98 05/26/17 23:24 05/27/17 01:05 05/27/17 01:05 05/27/17 01:05 05/27/17 01:05 Intake and Output: 05/27/17 05/27/17 06:59 18:59 Intake Total 1600 Balance 1600 - Medications Medications: Current Medications Albuterol/Ipratropium (Duoneb 3 Mg/0.5 Mg (3 Ml) Ud) 3 ml INH RQ4 [facility] Last Admin: 05/27/17 03:04 Dose: Not Given Famotidine (Pepcid) 20 mg PO BID [facility] Last Admin: 05/26/17 18:31 Dose: Not Given Folic Acid (Folic Acid) 1 mg PO DAILY [facility] Last Admin: 05/26/17 10:45 Dose: Not Given Gabapentin (Neurontin) 100 mg PO TID [facility] Last Admin: 05/26/17 18:30 Dose: Not Given Heparin Sodium (Porcine) (Heparin) 5,000 units SC Q12 [facility] Last Admin: 05/26/17 22:03 Dose: 5,000 units Dextrose/Sodium Chloride (Dextrose 5%/0.45% Ns 1000 Ml) 1,000 mls @ 100 mls/hr IV .Q10H [facility] Last Admin: 05/27/17 00:55 Dose: 100 mls/hr Morphine Sulfate (Morphine) 1 mg IVP Q4 PRN PRN Reason: Pain, moderate (4-7) Last Admin: 05/26/17 14:53 Dose: 1 mg Multivitamins (Hexavitamin) 1 tab PO DAILY [facility] Last Admin: 05/26/17 10:45 Dose: Not Given Ondansetron HCl (Zofran Inj) 4 mg IVP Q6 PRN PRN Reason: Nausea/Vomiting Last Admin: 05/26/17 18:54 Dose: 4 mg Fluticasone/Salmeterol (Advair Diskus 250/50) 1 puff INH RQ12 [facility] Last Admin: 05/26/17 20:03 Dose: 1 puff Sertraline HCl (Zoloft) 100 mg PO DAILY [facility] Last Admin: 05/26/17 10:45 Dose: Not Given Thiamine HCl (Vitamin B1 Tab) 100 mg PO DAILY [facility] Last Admin: 05/26/17 10:45 Dose: Not Given Tiotropium [place] (Spiriva) 18 mcg INH RQ24 [facility] Last Admin: 05/26/17 08:10 Dose: 18 mcg - Labs Labs: 05/27/17 06:00 05/27/17 06:00 APTT 37 SECONDS (21-34) H 05/25/17 07:26 - Constitutional Appears: No Acute Distress - Eye Exam Eye Exam: EOMI, PERRL - Respiratory Exam Respiratory Exam: NORMAL BREATHING PATTERN - Cardiovascular Exam Cardiovascular Exam: REGULAR RHYTHM, +S1 - GI/Abdominal Exam GI & Abdominal Exam: Soft, Tenderness, Normal Bowel Sounds - Extremities Exam Extremities Exam: Normal Inspection Assessment and Plan (1) Dysphagia Status: Acute (2) Abnormal esophagram Assessment & Plan: Potato wedge found in esophagus representing shelf seen on esophagram. Unclear if stricture of mass may be located below the food CT Scan of Chest completed but not yet read by radiology or Thoracic surgery Status: Acute (3) Esophageal foreign body Assessment & Plan: Foreign body with potato wedge unable to be fully removed due to lack of necessary "grasping" device and failure to maneuver snare below foreign body to slice or move it. Too firm to allow break up by rat tooth forceps. Advise CT Surgery to perform rigid esophagoscopy under anesthesia to remove body. If not consider transfer to other [facility] facility for repeat endoscopy Status: Acute
--- NOTE | 2017-05-27 10:42 | CP.PCM.PN ---
<Yanira Schafer E - Last Filed: 05/27/17 20:43> Subjective - Date & Time of Evaluation Date of Evaluation: 05/27/17 Time of Evaluation: 10:20 - Subjective Subjective: Medicine Note (PGY1) : Dr. Benson's service Patient was seen and examined at bedside. Patient states that he is doing well and has no new complaints. Patient denies chest pain, sob, nausea, vomiting, diarrhea, fever and chills. Objective - Vital Signs/Intake and Output Vital Signs (last 24 hours): Temp Pulse Resp BP Pulse Ox 98.2 F 73 20 102/67 97 05/27/17 08:00 05/27/17 08:00 05/27/17 08:00 05/27/17 08:00 05/27/17 08:00 Intake and Output: 05/27/17 05/27/17 06:59 18:59 Intake Total 1600 Balance 1600 - Medications Medications: Current Medications Albuterol/Ipratropium (Duoneb 3 Mg/0.5 Mg (3 Ml) Ud) 3 ml INH RQ4 [facility] Last Admin: 05/27/17 07:41 Dose: 3 ml Famotidine (Pepcid) 20 mg PO BID [facility] Last Admin: 05/26/17 18:31 Dose: Not Given Folic Acid (Folic Acid) 1 mg PO DAILY [facility] Last Admin: 05/26/17 10:45 Dose: Not Given Gabapentin (Neurontin) 100 mg PO TID [facility] Last Admin: 05/26/17 18:30 Dose: Not Given Heparin Sodium (Porcine) (Heparin) 5,000 units SC Q12 [facility] Last Admin: 05/26/17 22:03 Dose: 5,000 units Dextrose/Sodium Chloride (Dextrose 5%/0.45% Ns 1000 Ml) 1,000 mls @ 100 mls/hr IV .Q10H [facility] Last Admin: 05/27/17 00:55 Dose: 100 mls/hr Potassium Chloride 40 meq/ (Sodium Chloride) 1,020 mls @ 100 mls/hr IV .[id number] [facility] Last Admin: 05/27/17 09:49 Dose: 100 mls/hr Morphine Sulfate (Morphine) 1 mg IVP Q4 PRN PRN Reason: Pain, moderate (4-7) Last Admin: 05/26/17 14:53 Dose: 1 mg Multivitamins (Hexavitamin) 1 tab PO DAILY [facility] Last Admin: 05/26/17 10:45 Dose: Not Given Ondansetron HCl (Zofran Inj) 4 mg IVP Q6 PRN PRN Reason: Nausea/Vomiting Last Admin: 05/27/17 09:44 Dose: 4 mg Fluticasone/Salmeterol (Advair Diskus 250/50) 1 puff INH RQ12 [facility] Last Admin: 05/27/17 07:41 Dose: 1 puff Sertraline HCl (Zoloft) 100 mg PO DAILY [facility] Last Admin: 05/26/17 10:45 Dose: Not Given Thiamine HCl (Vitamin B1 Tab) 100 mg PO DAILY [facility] Last Admin: 05/26/17 10:45 Dose: Not Given Tiotropium [place] (Spiriva) 18 mcg INH RQ24 [facility] Last Admin: 05/26/17 08:10 Dose: 18 mcg - Labs Labs: 05/27/17 06:00 05/27/17 06:00 APTT 37 SECONDS (21-34) H 05/25/17 07:26 - Constitutional Appears: Well, No Acute Distress - Head Exam Head Exam: NORMAL INSPECTION, NORMOCEPHALIC - Eye Exam Eye Exam: EOMI, Normal appearance - ENT Exam ENT Exam: Mucous Membranes Moist, Normal Exam - Respiratory Exam Respiratory Exam: Clear to Ausculation Bilateral, NORMAL BREATHING PATTERN - Cardiovascular Exam Cardiovascular Exam: REGULAR RHYTHM, +S1, +S2 - GI/Abdominal Exam GI & Abdominal Exam: Soft, Normal Bowel Sounds - Extremities Exam Extremities Exam: Normal Capillary Refill, Normal Inspection - Neurological Exam Neurological Exam: Alert, Awake, Oriented x3 - Psychiatric Exam Psychiatric exam: Normal Mood - Skin Skin Exam: Dry, Normal Color, Warm Assessment and Plan (1) Dysphagia Assessment & Plan: GI Consult ( Dr. Beach) ---> Help appreciated (05/24/17)Esophagram: Findings appear suggestive of an esophageal malignancy vs benign peptic stricture. Will obtain CT Scan of Chest with and without contrast to better delineate extent of possible mass Will plan for EGD to evaluate next week Advise clear liquid or nectar thick liquid diet only to avoid obstruction with food CT Surgery consultation advised. EGD (05/26/17): Findings: Food was found in the lower third esophagus. Removal was only partially accomplished with a rat-toothed forceps. The foreign body was large chunk of potato that cannot be broken off nor could a snare pass beneath the lesion to break it up further. No mass was identified and the lesion seen on barium study was likely the large of chunk of food. * Patient would benefit from rigid esophagoscopy under general anesthesia for removal of foreign body and assessment of lower esophagus for stricture or tumor Thoracic surgery consulted (Dr. Petit)---> Help appreciated * CT chest for further eval of esophagus distal to foreign body: There is diffuse centrilobular emphysema in the lungs. There is a 8mm nodule with spiculated margins in the anterior segment of the left upper lobe. There is subsegmental atelectasis in the lingula. there is linear atelactasis/scarring in the left lung base. A follow-up CT scan in 3-6 months interval is recommended to assess stability * Recommend re-attempt on the retrieval of foreign body Repeat EGD (05/27/17): DR. Beach Esophageal foreign body- able to advance along side food bolus and pull it down into the stomach. NO mass or stricture. Ulcerative esophagitis at 35cm at location where food was impacted, biopsies taken Diffuse gastritis Recommendation: Needs PPI daily Advance diet Outpatient follow up in the GI Clinic Status: Acute (2) Alcohol use disorder Assessment & Plan: Monitor for signs of withdrawal Alcohol level 273 UDS negative Librium taper Mv/thiamine/folic acid aspiration/seizure precautions fluids discontinued [05/21] psych consulted, help appreciated magnesium level 1.8 [05/21] Status: Acute (3) Depression Assessment & Plan: Zoloft 100mg PO daily Psych consulted, help appreciated. Per psych [05/21]: "Continue medications Support and psychoeducation daily Attend groups and activities daily After care planning by SW - consider inpatient rehab" Pt would like to be admitted to psych floor monitor for suicidal/homicidal ideations per crisis - no need for 1:1\\ Dr. Ruby (psych) called - stated no beds available in psych unit Status: Acute (4) COPD exacerbation Assessment & Plan: Duonebs RQ4 [facility] Advair 250/50 Spiriva was recently on steroids Peak flow 175 Chest X ray - hyperinflation, no signs of pneumonia or other acute pathology Status: Acute (5) Leucocytosis Assessment & Plan: Resolving (05/26/17: 8.5); 05/27/17 (5.7) WBC 10.9 [05/19] WBC 6.7 [05/20] WBC 8.4 [05/21] afebrile Was recently on steroids UA normal Status: Acute (6) Prophylactic measure Assessment & Plan: Heparin 5000 units SC q12h Pepcid 20mg PO BID Heart Healthy diet SCDs Status: Acute <Bakari Benson M - Last Filed: 05/28/17 10:51> Objective - Vital Signs/Intake and Output Vital Signs (last 24 hours): Temp Pulse Resp BP Pulse Ox 98.1 F 76 20 113/71 98 05/28/17 08:16 05/28/17 08:16 05/28/17 08:16 05/28/17 08:16 05/28/17 08:16 Intake and Output: 05/28/17 05/28/17 06:59 18:59 Intake Total 1900 Balance 1900 - Medications Medications: Current Medications Albuterol Sulfate (Albuterol 0.083% Inhal [place] (2.5 Mg/3 Ml) Ud) 2.5 mg INH ONCE PRN PRN Reason: Wheezing Last Admin: 05/27/17 19:45 Dose: 2.5 mg Albuterol/Ipratropium (Duoneb 3 Mg/0.5 Mg (3 Ml) Ud) 3 ml INH RQ4 [facility] Last Admin: 05/28/17 07:25 Dose: 3 ml Folic Acid (Folic Acid) 1 mg PO DAILY [facility] Last Admin: 05/28/17 09:35 Dose: 1 mg Gabapentin (Neurontin) 100 mg PO TID [facility] Last Admin: 05/28/17 09:35 Dose: 100 mg Heparin Sodium (Porcine) (Heparin) 5,000 units SC Q12 [facility] Last Admin: 05/28/17 09:35 Dose: 5,000 units Dextrose/Sodium Chloride (Dextrose 5%/0.45% Ns 1000 Ml) 1,000 mls @ 100 mls/hr IV .Q10H [facility] Last Admin: 05/28/17 09:39 Dose: Not Given Potassium Chloride 40 meq/ (Sodium Chloride) 1,020 mls @ 100 mls/hr IV .[id number] [facility] Last Admin: 05/28/17 04:18 Dose: 100 mls/hr Morphine Sulfate (Morphine) 1 mg IVP Q4 PRN PRN Reason: Pain, moderate (4-7) Last Admin: 05/26/17 14:53 Dose: 1 mg Multivitamins (Hexavitamin) 1 tab PO DAILY [facility] Last Admin: 05/28/17 09:35 Dose: 1 tab Ondansetron HCl (Zofran Inj) 4 mg IVP Q6 PRN PRN Reason: Nausea/Vomiting Last Admin: 05/27/17 09:44 Dose: 4 mg Pantoprazole Sodium (Protonix Ec Tab) 40 mg PO DAILY [facility] Last Admin: 05/28/17 09:35 Dose: 40 mg Racepinephrine (Racepinephrine 2.25% Inhl Soln) 0.5 ml NEB ONCE PRN PRN Reason: Swelling Fluticasone/Salmeterol (Advair Diskus 250/50) 1 puff INH RQ12 [facility] Last Admin: 05/28/17 08:16 Dose: 1 puff Sertraline HCl (Zoloft) 100 mg PO DAILY [facility] Last Admin: 05/28/17 09:39 Dose: 100 mg Thiamine HCl (Vitamin B1 Tab) 100 mg PO DAILY [facility] Last Admin: 05/28/17 09:35 Dose: 100 mg Tiotropium [place] (Spiriva) 18 mcg INH RQ24 [facility] Last Admin: 05/26/17 08:10 Dose: 18 mcg - Labs Labs: 05/28/17 08:13 05/28/17 08:13 APTT 37 SECONDS (21-34) H 05/25/17 07:26 Attending/Attestation - Attestation I have personally seen and examined this patient.: Yes I have fully participated in the care of the patient.: Yes I have reviewed all pertinent clinical information, including history, physical exam and plan: Yes Notes (Text): 05/28/17 10:50 Patient was seen and examined at bedside Status post EGD. Successful disimpaction of the foreign body in the esophagus. Patient started on diet by GI Discharge planning I agree with the history and physical and assessment/plan by the resident.
--- NOTE | 2017-05-27 11:33 | CT ---
PROCEDURE: CT Chest with contrast HISTORY: Foreign body. eval of esophagus COMPARISON: None. TECHNIQUE: Contiguous axial images were obtained through the chest with intravenous contrast enhancement. Sagittal and coronal reconstructions were performed. IV contrast: 100 ML Visipaque Radiation dose (DLP): 235.89 mGy-cm. This CT exam was performed using one or more of the following dose reduction techniques: Automated exposure control, adjustment of the mA and/or kV according to patient size, and/or use of iterative reconstruction technique. FINDINGS: LUNGS: There is diffuse centrilobular emphysema in the lungs. There is a 8 mm nodule with spiculated margins in the anterior segment of the left upper lobe. There is subsegmental atelectasis in the lingula. There is linear atelectasis/scarring in the left lung base. MEDIASTINUM: The aorta is normal in caliber. No evidence of aortic aneurysm or aortic dissection. There is no pulmonary embolism. There is no pathologic mediastinal lymphadenopathy. There is a 1.6 x 2.3 cm soft tissue density with peripheral curvilinear high attenuation in the distal esophagus approximately a 5 cm proximal to the GE junction. There is mild diffuse dilatation of the proximal esophagus. PLEURA: No pleural fluid. No pneumothorax. BONES: No fracture. No destructive lesion. UPPER ABDOMEN: Both adrenal glands are normal in size. No calcified gallstones. There are postsurgical changes in the region of the duodenum and streak artifacts from metallic densities. OTHER FINDINGS: None. IMPRESSION: 1. 1.6 x 2.3 cm soft tissue density with peripheral enhancement/calcification in the distal esophagus approximately 5 cm proximal to the GE junction with resultant mild diffuse dilatation of the proximal esophagus. Findings are most compatible with a foreign body with the stated clinical history. Endoscopic correlation is advised. 2. Diffuse centrilobular emphysema in the lungs. 8 mm nodule with spiculated margins in the anterior segment of the left upper lobe. A follow-up CT scan in 3-6 months interval is recommended to assess stability.
--- NOTE | 2017-05-27 12:58 | CP.PCM.CON ---
History of Present Illness - History of Present Illness History of Present Illness: Reason for consultation: distal esophageal foreign body. Requested by DR.Peter Bardales. Pt s/e. Imaging studies and progress notes reviewed. 57 yo male with pmh of gastric surgeriesx3(bleeding, perforoationsx2) who presented with hx and imaging studies consistent with foreign body in the distal esophagus. Endoscopy by GI found a piece of potatoe and ? obstruction distal to the impacted food(tumor) and unable to remove completely. He is symptomatically somewhat improved. I have checked this am with OR again re rigid esophagoscope, and not able to find scope including central supply. I would recommend another endoscopy by GI and if unable to remove the foreign body, then transfer to [facility] where he had 3 previous gi procedures done.I left message to Dr Bardales re my recommendations. Past Patient History - Infectious Disease Hx of Infectious Diseases: None - Past Medical History & Family History Past Medical History?: Yes - Past Social History Smoking Status: Smoker Currrent Status Unknown - CARDIAC Hx Hypertension: Yes - PULMONARY Hx Asthma: Yes Hx Bronchitis: Yes Hx Chronic Obstructive Pulmonary Disease (COPD): Yes - NEUROLOGICAL Hx Seizures: No - HEENT Hx HEENT Problems: No - RENAL Hx Chronic Kidney Disease: No - ENDOCRINE/METABOLIC Hx Endocrine Disorders: No - HEMATOLOGICAL/ONCOLOGICAL Hx Human Immunodeficiency Virus (HIV): No - INTEGUMENTARY Hx Dermatological Problems: No - MUSCULOSKELETAL/RHEUMATOLOGICAL Hx Falls: No - GASTROINTESTINAL Hx Gastrointestinal Disorders: Yes Hx Gastroesophageal Reflux: Yes Hx Ulcer: Yes - GENITOURINARY/GYNECOLOGICAL Hx Genitourinary Disorders: No Hx Sexually Transmitted Disorders: No - PSYCHIATRIC Hx Substance Use: Yes (heroin and marijuana) - SURGICAL HISTORY Hx Appendectomy: Yes Hx Tonsillectomy: Yes - ANESTHESIA Hx Anesthesia: Yes Hx Anesthesia Reactions: No Hx Malignant Hyperthermia: No Has any member of the family had a problem w/ anesthesia?: No Meds Allergies/Adverse Reactions: Allergies Allergy/AdvReac Type Severity Reaction Status Date / Time No Known Allergies Allergy Verified 04/22/17 09:39 - Medications Medications: Current Medications Albuterol/Ipratropium (Duoneb 3 Mg/0.5 Mg (3 Ml) Ud) 3 ml INH RQ4 [facility] Last Admin: 05/27/17 07:41 Dose: 3 ml Famotidine (Pepcid) 20 mg PO BID [facility] Last Admin: 05/26/17 18:31 Dose: Not Given Folic Acid (Folic Acid) 1 mg PO DAILY [facility] Last Admin: 05/26/17 10:45 Dose: Not Given Gabapentin (Neurontin) 100 mg PO TID [facility] Last Admin: 05/26/17 18:30 Dose: Not Given Heparin Sodium (Porcine) (Heparin) 5,000 units SC Q12 [facility] Last Admin: 05/26/17 22:03 Dose: 5,000 units Dextrose/Sodium Chloride (Dextrose 5%/0.45% Ns 1000 Ml) 1,000 mls @ 100 mls/hr IV .Q10H [facility] Last Admin: 05/27/17 00:55 Dose: 100 mls/hr Potassium Chloride 40 meq/ (Sodium Chloride) 1,020 mls @ 100 mls/hr IV .[id number] [facility] Last Admin: 05/27/17 09:49 Dose: 100 mls/hr Morphine Sulfate (Morphine) 1 mg IVP Q4 PRN PRN Reason: Pain, moderate (4-7) Last Admin: 05/26/17 14:53 Dose: 1 mg Multivitamins (Hexavitamin) 1 tab PO DAILY [facility] Last Admin: 05/26/17 10:45 Dose: Not Given Ondansetron HCl (Zofran Inj) 4 mg IVP Q6 PRN PRN Reason: Nausea/Vomiting Last Admin: 05/27/17 09:44 Dose: 4 mg Fluticasone/Salmeterol (Advair Diskus 250/50) 1 puff INH RQ12 [facility] Last Admin: 05/27/17 07:41 Dose: 1 puff Sertraline HCl (Zoloft) 100 mg PO DAILY [facility] Last Admin: 05/26/17 10:45 Dose: Not Given Thiamine HCl (Vitamin B1 Tab) 100 mg PO DAILY [facility] Last Admin: 05/26/17 10:45 Dose: Not Given Tiotropium [place] (Spiriva) 18 mcg INH RQ24 [facility] Last Admin: 05/26/17 08:10 Dose: 18 mcg Results - Vital Signs Recent Vital Signs: Last Vital Signs Temp 98.2 F 05/27/17 08:00 Pulse 73 05/27/17 08:00 Resp 20 05/27/17 08:00 BP 102/67 05/27/17 08:00 Pulse Ox 97 05/27/17 08:00 - Labs Result Diagrams: 05/27/17 06:00 05/27/17 06:00 Labs: Laboratory Results - last 24 hr 05/27/17 05/27/17 06:00 06:00 WBC 5.7 RBC 3.89 L Hgb 12.2 D Hct 36.8 MCV 94.6 H MCH 31.3 H MCHC 33.1 RDW 15.6 H Plt Count 106 L D MPV 8.5 Neut % (Auto) 68.6 Lymph % (Auto) 18.8 L [place] % (Auto) 9.6 Eos % (Auto) 2.7 Baso % (Auto) 0.3 Neut # 3.9 Lymph # 1.1 [place] # 0.6 Eos # 0.2 Baso # 0.0 Differential Comment Sodium 135 Potassium 3.2 L Chloride 99 Carbon Dioxide 29 Anion Gap 10 BUN 12 Creatinine 0.6 L Est GFR ( Amer) > 60 Est GFR (Non-Af Amer) > 60 Random Glucose 96 Calcium 7.8 L Phosphorus 4.1 Magnesium 1.8 Total Bilirubin 0.7 AST 23 ALT 23 Alkaline Phosphatase 51 Total Protein 5.6 L Albumin 3.0 L Globulin 2.6 Albumin/Globulin Ratio 1.2
[2017-05-27] MEDS ORDERED: Albuterol 0.083% Inhal Sol (2.5 mg/3 mL) UD INH PRN (14:05)
[2017-05-27] MEDS ORDERED: Racepinephrine 2.25% Inhal Soln 0.5 ML UD NEB PRN (14:05)
--- NOTE | 2017-05-27 14:32 | CP.PCM.PN ---
Subjective - Date & Time of Evaluation Date of Evaluation: 05/27/17 Time of Evaluation: 14:30 - Subjective Subjective: Brief EGD Note: See full Endoscopy report for details Esophageal foreign body- able to advance along side food bolus and pull it down into the stomach. NO mass or stricture. Ulcerative esophagitis at 35cm at location where food was impacted, biopsies taken S/P Billroth II gastrojejunostomy Diffuse gastritis Rec/ Needs PPI daily Advance diet Outpatient follow up in the GI Clinic Objective - Vital Signs/Intake and Output Vital Signs (last 24 hours): Temp Pulse Resp BP Pulse Ox 98.2 F 73 20 102/67 97 05/27/17 14:14 05/27/17 14:14 05/27/17 14:14 05/27/17 14:14 05/27/17 14:14 Intake and Output: 05/27/17 05/27/17 06:59 18:59 Intake Total 1600 0 Balance 1600 0 - Medications Medications: Current Medications Albuterol Sulfate (Albuterol 0.083% Inhal Latonya (2.5 Mg/3 Ml) Ud) 2.5 mg INH ONCE PRN PRN Reason: Wheezing Albuterol/Ipratropium (Duoneb 3 Mg/0.5 Mg (3 Ml) Ud) 3 ml INH RQ4 [facility] Last Admin: 05/27/17 12:51 Dose: 3 ml Famotidine (Pepcid) 20 mg PO BID [facility] Last Admin: 05/27/17 14:06 Dose: Not Given Folic Acid (Folic Acid) 1 mg PO DAILY [facility] Last Admin: 05/26/17 10:45 Dose: Not Given Gabapentin (Neurontin) 100 mg PO TID [facility] Last Admin: 05/27/17 14:06 Dose: Not Given Heparin Sodium (Porcine) (Heparin) 5,000 units SC Q12 [facility] Last Admin: 05/27/17 14:05 Dose: Not Given Dextrose/Sodium Chloride (Dextrose 5%/0.45% Ns 1000 Ml) 1,000 mls @ 100 mls/hr IV .Q10H [facility] Last Admin: 05/27/17 00:55 Dose: 100 mls/hr Potassium Chloride 40 meq/ (Sodium Chloride) 1,020 mls @ 100 mls/hr IV .[id number] [facility] Last Admin: 05/27/17 09:49 Dose: 100 mls/hr Morphine Sulfate (Morphine) 1 mg IVP Q4 PRN PRN Reason: Pain, moderate (4-7) Last Admin: 05/26/17 14:53 Dose: 1 mg Multivitamins (Hexavitamin) 1 tab PO DAILY [facility] Last Admin: 05/26/17 10:45 Dose: Not Given Ondansetron HCl (Zofran Inj) 4 mg IVP Q6 PRN PRN Reason: Nausea/Vomiting Last Admin: 05/27/17 09:44 Dose: 4 mg Racepinephrine (Racepinephrine 2.25% Inhl Soln) 0.5 ml NEB ONCE PRN PRN Reason: Swelling Fluticasone/Salmeterol (Advair Diskus 250/50) 1 puff INH RQ12 [facility] Last Admin: 05/27/17 07:41 Dose: 1 puff Sertraline HCl (Zoloft) 100 mg PO DAILY [facility] Last Admin: 05/26/17 10:45 Dose: Not Given Thiamine HCl (Vitamin B1 Tab) 100 mg PO DAILY [facility] Last Admin: 05/26/17 10:45 Dose: Not Given Tiotropium [place] (Spiriva) 18 mcg INH RQ24 [facility] Last Admin: 05/26/17 08:10 Dose: 18 mcg - Labs Labs: 05/27/17 06:00 05/27/17 06:00 APTT 37 SECONDS (21-34) H 05/25/17 07:26 Assessment and Plan (1) Dysphagia Status: Acute (2) Abnormal esophagram Status: Acute (3) Esophageal foreign body Status: Acute
[2017-05-27 16:26] VITALS: RESP 20
[2017-05-27] MEDS: Multiple Vitamins Tab PO SCH (17:48)
[2017-05-27] MEDS: Pantoprazole 40 mg EC Tab PO SCH (17:55)
[2017-05-28] MEDS: Albuterol-Ipratrop 3 mg / 0.5 (3 ml) UD INH SCH ×7 (01:18→20:41)
[2017-05-28] MEDS: Fluticasone-Salmeterol 250-50mcg Diskus INH SCH ×2 (08:16→20:41)
[2017-05-28 08:24] LABS: BASO % 0.4 % (0.0-2.0); EOS # 0.2 K/uL (0.0-0.7); EOS % 3.8 % (0.0-4.0); HEMOGLOBIN 11.9 g/dL (12.0-18.0); LYMPH # 1.6 K/uL (1.0-4.3); LYMPH % 26.2 % (20.0-40.0); MEAN CELL VOLUME 94.6 fL (80.0-94.0); MEAN CORPUSCULAR HEMOGLOBIN 31.4 pg (27.0-31.0); MEAN CORPUSCULAR HGB CONC 33.2 g/dL (33.0-37.0); MEAN PLATELET VOLUME 9.5 fL (7.2-11.7); MONO # 0.6 K/uL (0.0-0.8); MONO % 9.6 % (0.0-10.0); NEUT # 3.7 K/uL (1.8-7.0); NRBC % 0.3 % (0.0-2.0); RBC 3.8 Mil/uL (4.40-5.90); RED CELL DISTRIBUTION WIDTH 15.9 % (11.5-14.5); WHITE BLOOD COUNT 6.2 K/uL (4.8-10.8)
--- NOTE | 2017-05-28 08:55 | CP.PCM.PN ---
Subjective - Date & Time of Evaluation Date of Evaluation: 05/28/17 Time of Evaluation: 08:50 - Subjective Subjective: Surgery: Dr. Petit Patient feeling very good today. Reports tolerating dinner w/o difficulty. States he had no issue swallowing solids or liquids. Denies n/v. Patient is s/p EGD yesterday which was successful removing food stuff in esophagus. Objective - Vital Signs/Intake and Output Vital Signs (last 24 hours): Temp Pulse Resp BP Pulse Ox 98.1 F 76 20 113/71 98 05/28/17 08:16 05/28/17 08:16 05/28/17 08:16 05/28/17 08:16 05/28/17 08:16 Intake and Output: 05/28/17 05/28/17 06:59 18:59 Intake Total 1900 Balance 1900 - Medications Medications: Current Medications Albuterol Sulfate (Albuterol 0.083% Inhal Latonya (2.5 Mg/3 Ml) Ud) 2.5 mg INH ONCE PRN PRN Reason: Wheezing Last Admin: 05/27/17 19:45 Dose: 2.5 mg Albuterol/Ipratropium (Duoneb 3 Mg/0.5 Mg (3 Ml) Ud) 3 ml INH RQ4 [facility] Last Admin: 05/28/17 07:25 Dose: 3 ml Folic Acid (Folic Acid) 1 mg PO DAILY [facility] Last Admin: 05/27/17 17:54 Dose: 1 mg Gabapentin (Neurontin) 100 mg PO TID [facility] Last Admin: 05/27/17 17:48 Dose: 100 mg Heparin Sodium (Porcine) (Heparin) 5,000 units SC Q12 [facility] Last Admin: 05/27/17 21:36 Dose: 5,000 units Dextrose/Sodium Chloride (Dextrose 5%/0.45% Ns 1000 Ml) 1,000 mls @ 100 mls/hr IV .Q10H [facility] Last Admin: 05/27/17 23:30 Dose: Not Given Potassium Chloride 40 meq/ (Sodium Chloride) 1,020 mls @ 100 mls/hr IV .[id number] [facility] Last Admin: 05/28/17 04:18 Dose: 100 mls/hr Morphine Sulfate (Morphine) 1 mg IVP Q4 PRN PRN Reason: Pain, moderate (4-7) Last Admin: 05/26/17 14:53 Dose: 1 mg Multivitamins (Hexavitamin) 1 tab PO DAILY [facility] Last Admin: 05/27/17 17:48 Dose: 1 tab Ondansetron HCl (Zofran Inj) 4 mg IVP Q6 PRN PRN Reason: Nausea/Vomiting Last Admin: 05/27/17 09:44 Dose: 4 mg Pantoprazole Sodium (Protonix Ec Tab) 40 mg PO DAILY [facility] Last Admin: 05/27/17 17:55 Dose: 40 mg Racepinephrine (Racepinephrine 2.25% Inhl Soln) 0.5 ml NEB ONCE PRN PRN Reason: Swelling Fluticasone/Salmeterol (Advair Diskus 250/50) 1 puff INH RQ12 [facility] Last Admin: 05/28/17 08:16 Dose: 1 puff Sertraline HCl (Zoloft) 100 mg PO DAILY [facility] Last Admin: 05/27/17 17:47 Dose: 100 mg Thiamine HCl (Vitamin B1 Tab) 100 mg PO DAILY [facility] Last Admin: 05/27/17 17:46 Dose: 100 mg Tiotropium [place] (Spiriva) 18 mcg INH RQ24 [facility] Last Admin: 05/26/17 08:10 Dose: 18 mcg - Labs Labs: 05/28/17 08:13 05/27/17 06:00 APTT 37 SECONDS (21-34) H 05/25/17 07:26 - Constitutional Appears: Well, Non-toxic, No Acute Distress - Head Exam Head Exam: ATRAUMATIC, NORMOCEPHALIC - Eye Exam Eye Exam: EOMI, Normal appearance - ENT Exam ENT Exam: Mucous Membranes Moist - Respiratory Exam Respiratory Exam: NORMAL BREATHING PATTERN. absent: Respiratory Distress - Cardiovascular Exam Cardiovascular Exam: REGULAR RHYTHM. absent: Tachycardia - GI/Abdominal Exam GI & Abdominal Exam: Soft. absent: Distended, Tenderness Assessment and Plan - Assessment and Plan (Free Text) Assessment: 57 y/o male w/ dysphagia-resolved s/p EGD and removal of food stuff Plan: -no surgical intervention at this time -will f/u pathology -d/w Dr. Marisabel Medina PGY3
[2017-05-28] MEDS: Pantoprazole 40 mg EC Tab PO SCH (09:35)
[2017-05-28] MEDS: Multiple Vitamins Tab PO SCH (09:35)
[2017-05-28] MEDS: Dextrose 5%/0.45% NS 1,000 ML IV SCH (09:39)
[2017-05-28 10:02] LABS: ALBUMIN 3.2 g/dL (3.5-5.0)
[2017-05-28 10:05] LABS: ALB/GLOB RATIO 1.2 (1.0-2.1); AST/SGOT 25 U/L (17-59); GFR AFRICAN-AMERICAN > 60; GFR NON-AFRICAN AMERICAN > 60
[2017-05-28 10:06] LABS: ALT/SGPT 18 U/L (21-72); BLOOD UREA NITROGEN 8 mg/dL (9-20); CALCIUM 8.2 mg/dl (8.6-10.4); MAGNESIUM 1.7 mg/dL (1.6-2.3)
--- NOTE | 2017-05-28 10:21 | CP.PCM.PN ---
Subjective - Date & Time of Evaluation Date of Evaluation: 05/28/17 Time of Evaluation: 10:18 - Subjective Subjective: No dysphagia or pain Objective - Vital Signs/Intake and Output Vital Signs (last 24 hours): Temp Pulse Resp BP Pulse Ox 98.1 F 76 20 113/71 98 05/28/17 08:16 05/28/17 08:16 05/28/17 08:16 05/28/17 08:16 05/28/17 08:16 Intake and Output: 05/28/17 05/28/17 06:59 18:59 Intake Total 1900 Balance 1900 - Medications Medications: Current Medications Albuterol Sulfate (Albuterol 0.083% Inhal Latonya (2.5 Mg/3 Ml) Ud) 2.5 mg INH ONCE PRN PRN Reason: Wheezing Last Admin: 05/27/17 19:45 Dose: 2.5 mg Albuterol/Ipratropium (Duoneb 3 Mg/0.5 Mg (3 Ml) Ud) 3 ml INH RQ4 [facility] Last Admin: 05/28/17 07:25 Dose: 3 ml Folic Acid (Folic Acid) 1 mg PO DAILY [facility] Last Admin: 05/28/17 09:35 Dose: 1 mg Gabapentin (Neurontin) 100 mg PO TID [facility] Last Admin: 05/28/17 09:35 Dose: 100 mg Heparin Sodium (Porcine) (Heparin) 5,000 units SC Q12 [facility] Last Admin: 05/28/17 09:35 Dose: 5,000 units Dextrose/Sodium Chloride (Dextrose 5%/0.45% Ns 1000 Ml) 1,000 mls @ 100 mls/hr IV .Q10H [facility] Last Admin: 05/28/17 09:39 Dose: Not Given Potassium Chloride 40 meq/ (Sodium Chloride) 1,020 mls @ 100 mls/hr IV .[id number] [facility] Last Admin: 05/28/17 04:18 Dose: 100 mls/hr Morphine Sulfate (Morphine) 1 mg IVP Q4 PRN PRN Reason: Pain, moderate (4-7) Last Admin: 05/26/17 14:53 Dose: 1 mg Multivitamins (Hexavitamin) 1 tab PO DAILY [facility] Last Admin: 05/28/17 09:35 Dose: 1 tab Ondansetron HCl (Zofran Inj) 4 mg IVP Q6 PRN PRN Reason: Nausea/Vomiting Last Admin: 05/27/17 09:44 Dose: 4 mg Pantoprazole Sodium (Protonix Ec Tab) 40 mg PO DAILY [facility] Last Admin: 05/28/17 09:35 Dose: 40 mg Racepinephrine (Racepinephrine 2.25% Inhl Soln) 0.5 ml NEB ONCE PRN PRN Reason: Swelling Fluticasone/Salmeterol (Advair Diskus 250/50) 1 puff INH RQ12 [facility] Last Admin: 05/28/17 08:16 Dose: 1 puff Sertraline HCl (Zoloft) 100 mg PO DAILY [facility] Last Admin: 05/28/17 09:39 Dose: 100 mg Thiamine HCl (Vitamin B1 Tab) 100 mg PO DAILY [facility] Last Admin: 05/28/17 09:35 Dose: 100 mg Tiotropium [place] (Spiriva) 18 mcg INH RQ24 [facility] Last Admin: 05/26/17 08:10 Dose: 18 mcg - Labs Labs: 05/28/17 08:13 05/27/17 06:00 APTT 37 SECONDS (21-34) H 05/25/17 07:26 - Constitutional Appears: No Acute Distress - Head Exam Head Exam: ATRAUMATIC, NORMOCEPHALIC - Respiratory Exam Respiratory Exam: NORMAL BREATHING PATTERN - Cardiovascular Exam Cardiovascular Exam: REGULAR RHYTHM - GI/Abdominal Exam GI & Abdominal Exam: Soft, Normal Bowel Sounds. absent: Tenderness Assessment and Plan (1) Dysphagia Assessment & Plan: Advise esophageal manometry if available through GI Clinic following discharge Will sign off at this point in time as stable from GI point of view. out patient follow up in the [facility] or with Dr Dawson. Status: Resolved (2) Abnormal esophagram Status: Resolved (3) Esophageal foreign body Status: Resolved (4) Ulcerative esophagitis Assessment & Plan: Continue PPI upon discharge to heal ulcers Review biopsy results when available Status: Acute (5) H/O Billroth II operation Status: Chronic
--- NOTE | 2017-05-28 20:38 | CP.PCM.PN ---
<Milton Zee R - Last Filed: 05/28/17 20:35> Subjective - Date & Time of Evaluation Date of Evaluation: 05/28/17 Time of Evaluation: 13:30 - Subjective Subjective: Medicine Note (PGY1) : Dr. Benson's service: Patient seen and examined at bedside. Patient was not in acute distress. Patient stated he felt fine. Patient denied chest pain, shortness of breath, palpitations, throat pain, sore throat, neck pain, fever. Objective - Vital Signs/Intake and Output Vital Signs (last 24 hours): Temp Pulse Resp BP Pulse Ox 98.1 F 83 20 126/70 98 05/28/17 16:00 05/28/17 16:00 05/28/17 16:00 05/28/17 16:00 05/28/17 16:00 Intake and Output: 05/28/17 05/29/17 18:59 06:59 Intake Total 1300 Balance 1300 - Medications Medications: Current Medications Albuterol Sulfate (Albuterol 0.083% Inhal Latonya (2.5 Mg/3 Ml) Ud) 2.5 mg INH ONCE PRN PRN Reason: Wheezing Last Admin: 05/27/17 19:45 Dose: 2.5 mg Albuterol/Ipratropium (Duoneb 3 Mg/0.5 Mg (3 Ml) Ud) 3 ml INH RQ4 [facility] Last Admin: 05/28/17 16:06 Dose: 3 ml Folic Acid (Folic Acid) 1 mg PO DAILY [facility] Last Admin: 05/28/17 09:35 Dose: 1 mg Gabapentin (Neurontin) 100 mg PO TID [facility] Last Admin: 05/28/17 17:30 Dose: 100 mg Heparin Sodium (Porcine) (Heparin) 5,000 units SC Q12 [facility] Last Admin: 05/28/17 09:35 Dose: 5,000 units Dextrose/Sodium Chloride (Dextrose 5%/0.45% Ns 1000 Ml) 1,000 mls @ 100 mls/hr IV .Q10H [facility] Last Admin: 05/28/17 09:39 Dose: Not Given Morphine Sulfate (Morphine) 1 mg IVP Q4 PRN PRN Reason: Pain, moderate (4-7) Last Admin: 05/26/17 14:53 Dose: 1 mg Multivitamins (Hexavitamin) 1 tab PO DAILY [facility] Last Admin: 05/28/17 09:35 Dose: 1 tab Ondansetron HCl (Zofran Inj) 4 mg IVP Q6 PRN PRN Reason: Nausea/Vomiting Last Admin: 05/27/17 09:44 Dose: 4 mg Pantoprazole Sodium (Protonix Ec Tab) 40 mg PO DAILY [facility] Last Admin: 05/28/17 09:35 Dose: 40 mg Racepinephrine (Racepinephrine 2.25% Inhl Soln) 0.5 ml NEB ONCE PRN PRN Reason: Swelling Fluticasone/Salmeterol (Advair Diskus 250/50) 1 puff INH RQ12 [facility] Last Admin: 05/28/17 08:16 Dose: 1 puff Sertraline HCl (Zoloft) 100 mg PO DAILY [facility] Last Admin: 05/28/17 09:39 Dose: 100 mg Thiamine HCl (Vitamin B1 Tab) 100 mg PO DAILY [facility] Last Admin: 05/28/17 09:35 Dose: 100 mg Tiotropium [place] (Spiriva) 18 mcg INH RQ24 [facility] Last Admin: 05/26/17 08:10 Dose: 18 mcg - Labs Labs: 05/28/17 08:13 05/28/17 08:13 APTT 37 SECONDS (21-34) H 05/25/17 07:26 - Constitutional Appears: Well - Head Exam Head Exam: ATRAUMATIC, NORMAL INSPECTION, NORMOCEPHALIC - Eye Exam Eye Exam: EOMI, Normal appearance, PERRL - ENT Exam ENT Exam: Mucous Membranes Moist, Normal Exam - Neck Exam Neck Exam: Full ROM, Normal Inspection. absent: Lymphadenopathy - Respiratory Exam Respiratory Exam: Clear to Ausculation Bilateral, NORMAL BREATHING PATTERN - Cardiovascular Exam Cardiovascular Exam: REGULAR RHYTHM, +S1, +S2. absent: Murmur - GI/Abdominal Exam GI & Abdominal Exam: Soft, Normal Bowel Sounds. absent: Tenderness - Rectal Exam Rectal Exam: Deferred - Extremities Exam Extremities Exam: Full ROM, Normal Capillary Refill, Normal Inspection. absent : Joint Swelling, Pedal Edema - Neurological Exam Neurological Exam: Alert, Awake, Oriented x3 - Psychiatric Exam Psychiatric exam: Normal Affect, Normal Mood - Skin Skin Exam: Dry, Intact, Normal Color, Warm Assessment and Plan - Assessment and Plan (Free Text) Assessment: (1) Dysphagia Assessment & Plan: GI Consult ( Dr. Beach) ---> Help appreciated (6/30/17)Esophagram: Findings appear suggestive of an esophageal malignancy vs benign peptic stricture. Will obtain CT Scan of Chest with and without contrast to better delineate extent of possible mass Will plan for EGD to evaluate next week Advise clear liquid or nectar thick liquid diet only to avoid obstruction with food CT Surgery consultation advised. 05/28: "Advise esophageal manometry if available through GI Clinic following discharge. Will sign off at this point in time as stable from GI point of view. [place] [facility] or with Dr Dawson. Con't PPIs" EGD (05/26/17): Findings: Food was found in the lower third esophagus. Removal was only partially accomplished with a rat-toothed forceps. The foreign body was large chunk of potato that cannot be broken off nor could a snare pass beneath the lesion to break it up further. No mass was identified and the lesion seen on barium study was likely the large of chunk of food. * Patient would benefit from rigid esophagoscopy under general anesthesia for removal of foreign body and assessment of lower esophagus for stricture or tumor Thoracic surgery consulted (Dr. Petit)---> Help appreciated * CT chest for further eval of esophagus distal to foreign body: There is diffuse centrilobular emphysema in the lungs. There is a 8mm nodule with spiculated margins in the anterior segment of the left upper lobe. There is subsegmental atelectasis in the lingula. there is linear atelactasis/scarring in the left lung base. A follow-up CT scan in 3-6 months interval is recommended to assess stability * Recommend re-attempt on the retrieval of foreign body * 05/28: "no surgical intervention at this time, will f/u pathology" Repeat EGD (05/27/17): DR. Beach Esophageal foreign body- able to advance along side food bolus and pull it down into the stomach. NO mass or stricture. Ulcerative esophagitis at 35cm at location where food was impacted, biopsies taken Diffuse gastritis Recommendation: Needs PPI daily Advance diet Outpatient follow up in the GI Clinic Status: Acute (2) Alcohol use disorder Assessment & Plan: Monitor for signs of withdrawal Alcohol level 273 UDS negative Librium taper Mv/thiamine/folic acid aspiration/seizure precautions fluids discontinued [05/21] psych consulted, help appreciated magnesium level 1.8 [05/21] Status: Acute (3) Depression Assessment & Plan: Zoloft 100mg PO daily Psych consulted, help appreciated. Per psych [05/21]: "Continue medications Support and psychoeducation daily Attend groups and activities daily After care planning by SW - consider inpatient rehab" Pt would like to be admitted to psych floor monitor for suicidal/homicidal ideations per crisis - no need for 1:1\\ Dr. Ruby (psych) called - stated no beds available in psych unit Status: Acute (4) COPD exacerbation Assessment & Plan: Duonebs RQ4 [facility] Advair 250/50 Spiriva was recently on steroids Peak flow 175 Chest X ray - hyperinflation, no signs of pneumonia or other acute pathology Status: Acute (5) Leucocytosis Assessment & Plan: Resolving (05/26/17: 8.5); 05/27/17 (5.7) WBC 10.9 [05/19] WBC 6.7 [05/20] WBC 8.4 [05/21] afebrile Was recently on steroids UA normal Status: Acute (6) Prophylactic measure Assessment & Plan: Heparin 5000 units SC q12h Pepcid 20mg PO BID [facility] Healthy diet SCDs Status: Acute <MarcelinoMinervan M - Last Filed: 05/29/17 16:27> Objective - Vital Signs/Intake and Output Vital Signs (last 24 hours): Temp Pulse Resp BP Pulse Ox 97.7 F 80 20 144/75 97 05/29/17 08:00 05/29/17 08:00 05/29/17 08:00 05/29/17 08:00 05/29/17 08:00 Intake and Output: 05/29/17 05/29/17 06:59 18:59 Intake Total 480 240 Balance 480 240 - Medications Medications: Current Medications Albuterol Sulfate (Albuterol 0.083% Inhal Latonya (2.5 Mg/3 Ml) Ud) 2.5 mg INH ONCE PRN PRN Reason: Wheezing Last Admin: 05/27/17 19:45 Dose: 2.5 mg Folic Acid (Folic Acid) 1 mg PO DAILY [facility] Last Admin: 05/29/17 10:14 Dose: 1 mg Gabapentin (Neurontin) 100 mg PO TID [facility] Last Admin: 05/29/17 13:35 Dose: 100 mg Heparin Sodium (Porcine) (Heparin) 5,000 units SC Q12 [facility] Last Admin: 05/29/17 10:14 Dose: Not Given Morphine Sulfate (Morphine) 1 mg IVP Q4 PRN PRN Reason: Pain, moderate (4-7) Last Admin: 05/26/17 14:53 Dose: 1 mg Multivitamins (Hexavitamin) 1 tab PO DAILY [facility] Last Admin: 05/29/17 10:14 Dose: 1 tab Ondansetron HCl (Zofran Inj) 4 mg IVP Q6 PRN PRN Reason: Nausea/Vomiting Last Admin: 05/27/17 09:44 Dose: 4 mg Pantoprazole Sodium (Protonix Ec Tab) 40 mg PO DAILY [facility] Last Admin: 05/29/17 10:21 Dose: 40 mg Racepinephrine (Racepinephrine 2.25% Inhl Soln) 0.5 ml NEB ONCE PRN PRN Reason: Swelling Fluticasone/Salmeterol (Advair Diskus 250/50) 1 puff INH RQ12 [facility] Last Admin: 05/29/17 09:32 Dose: 1 puff Sertraline HCl (Zoloft) 100 mg PO DAILY [facility] Last Admin: 05/29/17 10:14 Dose: 100 mg Thiamine HCl (Vitamin B1 Tab) 100 mg PO DAILY [facility] Last Admin: 05/29/17 10:14 Dose: 100 mg Tiotropium [place] (Spiriva) 18 mcg INH RQ24 [facility] Last Admin: 05/29/17 09:33 Dose: 18 mcg - Labs Labs: 05/29/17 08:02 05/29/17 08:02 APTT 37 SECONDS (21-34) H 05/25/17 07:26 Attending/Attestation - Attestation I have personally seen and examined this patient.: Yes I have fully participated in the care of the patient.: Yes I have reviewed all pertinent clinical information, including history, physical exam and plan: Yes Notes (Text): 05/29/17 16:26 Patient was seen and examined at bedside Patient states that he is feeling much better He is able to swallow solid food Discharge planning Discussed with the resident and agree with the assessment and plan by the resident.
[2017-05-29] MEDS: Albuterol-Ipratrop 3 mg / 0.5 (3 ml) UD INH SCH ×4 (00:56→15:44)
[2017-05-29 08:26] LABS: BASO % 0.3 % (0.0-2.0); EOS # 0.2 K/uL (0.0-0.7); EOS % 4.6 % (0.0-4.0); HEMOGLOBIN 12.5 g/dL (12.0-18.0); LYMPH # 1.3 K/uL (1.0-4.3); LYMPH % 27.5 % (20.0-40.0); MEAN CELL VOLUME 94.7 fL (80.0-94.0); MEAN CORPUSCULAR HEMOGLOBIN 31.6 pg (27.0-31.0); MEAN CORPUSCULAR HGB CONC 33.4 g/dL (33.0-37.0); MEAN PLATELET VOLUME 9.9 fL (7.2-11.7); MONO # 0.6 K/uL (0.0-0.8); NEUT # 2.7 K/uL (1.8-7.0); NEUT % 55.6 % (50.0-75.0); NRBC % 0.1 % (0.0-2.0); RBC 3.95 Mil/uL (4.40-5.90); RED CELL DISTRIBUTION WIDTH 15.6 % (11.5-14.5); WHITE BLOOD COUNT 4.9 K/uL (4.8-10.8)
[2017-05-29 08:44] LABS: ALBUMIN 3.2 g/dL (3.5-5.0)
[2017-05-29 08:46] LABS: GFR AFRICAN-AMERICAN > 60; GFR NON-AFRICAN AMERICAN > 60
[2017-05-29 08:47] LABS: ALB/GLOB RATIO 1.1 (1.0-2.1); ALT/SGPT 15 U/L (21-72); AST/SGOT 24 U/L (17-59); BLOOD UREA NITROGEN 12 mg/dL (9-20)
[2017-05-29 08:48] LABS: CALCIUM 8.6 mg/dl (8.6-10.4); MAGNESIUM 1.8 mg/dL (1.6-2.3)
[2017-05-29] MEDS: Fluticasone-Salmeterol 250-50mcg Diskus INH SCH (09:32)
[2017-05-29] MEDS: Tiotropium 18 mcg Cap For Inhalation INH SCH (09:33)
[2017-05-29 09:37] VITALS: BP 144/75; PULSE 80; TEMP 97.7; O2SAT 97
[2017-05-29] MEDS: Multiple Vitamins Tab PO SCH (10:14)
[2017-05-29] MEDS: Pantoprazole 40 mg EC Tab PO SCH (10:21)
--- NOTE | 2017-05-29 12:07 | PCM.PYCHPN ---
Psychiatric Progress Note - Psychiatric Progress Note Patient seen today, length of contact: 18 min Patient Chief Complaint: "I'm fine" Problems Identified/Issues Discussed: The pt is seen, chart reviewed, case discussed with staff. He is stable Not as depressed or anxious and is very happy about his treatment here Plus, he is happy that he did not have cancer. Future oriented Will continue meds and follow up at [facility] for d/c Medication Change: No Medical Record Reviewed: Yes Mental Status Examination - Cognitive Function Orientation: Person, Place, Situation, Time Memory: Intact Attention: WNL Concentration: WNL Association: WNL Fund of Knowledge: WNL - Mood Mood: Neutral - Affect Affect: Broad - Speech Speech: Appropriate, Soft - Formal Thought Process Formal Thought Process: No Impairment - Suicidal Ideation Suicidal Ideation: No - Homicidal Ideation Homicidal Ideation: No Goal/Treatment Plan - Goal/Treatment Plan Progress Toward Problem(s) and Goals/Treatment Plan: Continue medications Support and psychoeducation given Referred to [facility] for d/c
--- NOTE | 2017-05-29 15:05 | CP.PCM.DIS ---
<Yanira Schafer E - Last Filed: 05/29/17 22:14> Provider - Provider Date of Admission: 05/21/17 16:22 Attending physician: Bakari Benson MD Time Spent in preparation of Discharge (in minutes): 45 Diagnosis - Discharge Diagnosis (1) Dysphagia Status: Resolved (2) Alcohol use disorder Status: Acute (3) Depression Status: Acute (4) COPD exacerbation Status: Acute (5) Leucocytosis Status: Acute (6) Prophylactic measure Status: Acute Hospital Course - Lab Results Lab Results: Most Recent Lab Values WBC 4.9 K/uL (4.8-10.8) 05/29/17 08:02 RBC 3.95 Mil/uL (4.40-5.90) L 05/29/17 08:02 Hgb 12.5 g/dL (12.0-18.0) 05/29/17 08:02 Hct 37.4 % (35.0-51.0) 05/29/17 08:02 MCV 94.7 fL (80.0-94.0) H 05/29/17 08:02 MCH 31.6 pg (27.0-31.0) H 05/29/17 08:02 MCHC 33.4 g/dL (33.0-37.0) 05/29/17 08:02 RDW 15.6 % (11.5-14.5) H 05/29/17 08:02 Plt Count 114 K/uL (130-400) L 05/29/17 08:02 MPV 9.9 fL (7.2-11.7) 05/29/17 08:02 Neut % (Auto) 55.6 % (50.0-75.0) 05/29/17 08:02 Lymph % (Auto) 27.5 % (20.0-40.0) 05/29/17 08:02 Ford % (Auto) 12.0 % (0.0-10.0) H 05/29/17 08:02 Eos % (Auto) 4.6 % (0.0-4.0) H 05/29/17 08:02 Baso % (Auto) 0.3 % (0.0-2.0) 05/29/17 08:02 Neut # 2.7 K/uL (1.8-7.0) 05/29/17 08:02 Lymph # 1.3 K/uL (1.0-4.3) 05/29/17 08:02 Ford # 0.6 K/uL (0.0-0.8) 05/29/17 08:02 Eos # 0.2 K/uL (0.0-0.7) 05/29/17 08:02 Baso # 0.0 K/uL (0.0-0.2) 05/29/17 08:02 Differential Comment 05/28/17 08:13 APTT 37 SECONDS (21-34) H 05/25/17 07:26 Sodium 138 mmol/L (132-148) 05/29/17 08:02 Potassium 4.4 mmol/L (3.6-5.2) 05/29/17 08:02 Chloride 104 mmol/L (98-107) 05/29/17 08:02 Carbon Dioxide 26 mmol/L (22-30) 05/29/17 08:02 Anion Gap 13 (10-20) 05/29/17 08:02 BUN 12 mg/dL (9-20) 05/29/17 08:02 Creatinine 0.7 MG/DL (0.8-1.5) L 05/29/17 08:02 Est GFR ( Amer) > 60 05/29/17 08:02 Est GFR (Non-Af Amer) > 60 05/29/17 08:02 Random Glucose 83 mg/dL (75-110) 05/29/17 08:02 Calcium 8.6 mg/dl (8.6-10.4) 05/29/17 08:02 Phosphorus 3.8 mg/dL (2.5-4.5) 05/29/17 08:02 Magnesium 1.8 mg/dL (1.6-2.3) 05/29/17 08:02 Total Bilirubin 0.5 mg/dL (0.2-1.3) 05/29/17 08:02 AST 24 U/L (17-59) 05/29/17 08:02 ALT 15 U/L (21-72) L 05/29/17 08:02 Alkaline Phosphatase 44 U/L (38-126) 05/29/17 08:02 Total Creatine Kinase 97 U/L (55-170) 05/19/17 17:44 CK-MB (Mass) 1.24 ng/mL (0.0-3.38) 05/19/17 17:44 Troponin I < 0.0120 ng/mL (0.00-0.120) 05/19/17 17:44 NT-Pro-B Natriuret Pep 109 pg/mL (0-900) 05/19/17 17:44 Total Protein 6.0 g/dL (6.3-8.3) L 05/29/17 08:02 Albumin 3.2 g/dL (3.5-5.0) L 05/29/17 08:02 Globulin 2.8 gm/dL (2.2-3.9) 05/29/17 08:02 Albumin/Globulin Ratio 1.1 (1.0-2.1) 05/29/17 08:02 Urine Color Yellow (YELLOW) 05/19/17 17:44 Urine Clarity Clear (Clear) 05/19/17 17:44 Urine pH 6.0 (5.0-8.0) 05/19/17 17:44 Ur Specific [place] 1.004 (1.003-1.030) 05/19/17 17:44 Urine Protein Negative mg/dL (NEGATIVE) 05/19/17 17:44 Urine Glucose (UA) Normal mg/dL (Normal) 05/19/17 17:44 Urine Ketones Negative mg/dL (NEGATIVE) 05/19/17 17:44 Urine Blood Negative (NEGATIVE) 05/19/17 17:44 Urine Nitrate Negative (NEGATIVE) 05/19/17 17:44 Urine Bilirubin Negative (NEGATIVE) 05/19/17 17:44 Urine Urobilinogen Normal mg/dL (0.2-1.0) 05/19/17 17:44 Ur Leukocyte Esterase Neg James/uL (Negative) 05/19/17 17:44 Urine WBC (Auto) 1 /hpf (0-5) 05/19/17 17:44 Urine Opiates Screen Negative (NEGATIVE) 05/19/17 17:44 Urine Methadone Screen Negative (NEGATIVE) 05/19/17 17:44 Ur Barbiturates Screen Negative (NEGATIVE) 05/19/17 17:44 Ur Phencyclidine Scrn Negative (NEGATIVE) 05/19/17 17:44 Ur Amphetamines Screen Negative (NEGATIVE) 05/19/17 17:44 U Benzodiazepines Scrn Negative (NEGATIVE) 05/19/17 17:44 U Oth Cocaine Metabols Negative (NEGATIVE) 05/19/17 17:44 U Cannabinoids Screen Negative (NEGATIVE) 05/19/17 17:44 Alcohol, Quantitative 273 mg/dl (0-10) H 05/19/17 17:44 - Hospital Course Hospital Course: As per admission: HPI: Patient is a 57 y/o male with past medical history of COPD (not on home 02), major depressive disorder, alcohol abuse disorder, perforated ulcer and shingles presents BIBA for evaluation of SOB, nonproductive cough and wheezing since this morning per ED documentation. Patient was given breathing treatment in the ED. When examined by the medical team the patient reported that his breathing had improved and that he really wanted to be inpatient because he "needs psych help" He reported to the ED feeling depressed and stated he sometimes has thoughts of hurting himself by walking into traffic. He denied thought of suicidal or homicidal ideation to the medical team but repeated over and over that he wants "psych help". neon sign worker was notified and said patient did not need one to one observation. Psychiatry was consulted, but bed available on psych floor. Patient was noted to have am elevated alcohol level on admission. He reports his last drink today around 1PM. he admits to drinking 3 shots of vodka and one beer. He denies tremors or hallucinations but is worried he will start shaking later. Patient denies chest pain, fever, abdominal pain, nausea/vomiting/diarrhea. He reports taking his medications as prescribed. Hospital Course: Patient is a 57 y/o male with past medical history of COPD (not on home 02), major depressive disorder, alcohol abuse disorder, perforated ulcer and shingles presents BIBA for evaluation of SOB, nonproductive cough and wheezing. Patient was admitted and medically managed for COPD exacerbation and hypotension. There was a psychiatry consult placed to Dr. Alonzo, who then made appropriate medical recommendations regarding patient's mental health. Patient began to stabilize medically and was transferred to the psychiatry floor. On , patient reported difficulty swallowing and GI consult was placed to Dr. Beach who recommended an EGD. EGD was then performed but was unsuccessful in removing /dislodging obstructing foreign body located in the lower esophagus. Thereafter, thoracic surgery consult was placed to Dr. Petit, who recommended a re-attempt on the retrieval of foreign body by GI. Dr. Beach performed another EGD on 05/27/17, which was successful. Patient started to feel better and was able to tolerate diet. Patient was then discharge clearance cleared by medicine team, GI and psychiatry. Pertinent study results: Chest X-ray: No infiltrate. Pulmonary hyperinflation suggestive of emphysema Venous duplex scan B/l: Negative for DVT Esophageal X-ray: Marked irregualr stricturing of the distal 1/2-1/3 of the esophagus consistent with esophageal carcinoma. Endoscopy is recommended to confirm. CT of the chest: There is diffuse centrilobular emphysema in the lungs. There is a 8mm nodule with spiculated margins in the anterior segment of the left upper lobe. There is subsegmental atelectasis in the lingula. there is linear atelactasis/scarring in the left lung base. A follow-up CT scan in 3-6 months interval is recommended to assess stability EGD report (05/26/17): Food was found in the lower third esophagus. Removal was only partially accomplished with a rat-toothed forceps. The foreign body was large chunk of potato that cannot be broken off nor could a snare pass beneath the lesion to break it up further. No mass was identified and the lesion seen on barium study was likely the large of chunk of food EGD Report (05/27/17): Esophageal foreign body- able to advance along side food bolus and pull it down into the stomach. NO mass or stricture. Ulcerative esophagitis at 35cm at location where food was impacted, biopsies taken Diffuse gastritis This is a brief summary of events. For a more complete course, please refer to medical record. Discharge Exam - Head Exam Head Exam: ATRAUMATIC, NORMAL INSPECTION, NORMOCEPHALIC - Eye Exam Eye Exam: EOMI, Normal appearance - ENT Exam ENT Exam: Mucous Membranes Moist, Normal Exam - Respiratory Exam Respiratory Exam: Wheezes, NORMAL BREATHING PATTERN - Cardiovascular Exam Cardiovascular Exam: REGULAR RHYTHM, +S1, +S2 - GI/Abdominal Exam GI & Abdominal Exam: Normal Bowel Sounds, Soft - Extremities Exam Extremities exam: normal capillary refill, normal inspection - Neurological Exam Neurological exam: Alert, Oriented x3 - Psychiatric Exam Psychiatric exam: Normal Affect, Normal Mood - Skin Skin Exam: Dry, Normal Color, Warm Discharge Plan - Discharge Medications Prescriptions: Gabapentin [Neurontin] 100 mg PO TID #90 cap - Follow Up Plan Condition: FAIR Disposition: HOME/ ROUTINE Instructions: Gabapentin (By mouth), Pantoprazole (By mouth), Heart Healthy Diet (DC), COPD (Chronic Obstructive Pulmonary Disease) (DC), Dyspnea (GEN) Additional Instructions: Please discharge patient home Please start the following new medication as prescribed: 1. Gabapentin 100mg PO TID 2. Protonix 40mg PO daily Please resume all home medications as prescribed Please follow up with GI (Stomach doctor), Dr. Beach for biopsy result within a week Please follow up with your preferred primary care physician or with [facility] within a week Please follow up with a chest CT scan in 3-6 months interval as recommended, in order to monitor and assess stability of the 8mm nodule in the anterior segment of left upper lobe. Please return to the hospital if symptoms resume. Referrals: Jan Beach MD [Staff Provider] - Mili Dawson MD [Staff Provider] - <Bakari Benson - Last Filed: 05/30/17 17:40> Provider - Provider Date of Admission: 05/21/17 16:22 Attending physician: Bakari Benson MD Hospital Course - Lab Results Lab Results: Most Recent Lab Values WBC 4.9 K/uL (4.8-10.8) 05/29/17 08:02 RBC 3.95 Mil/uL (4.40-5.90) L 05/29/17 08:02 Hgb 12.5 g/dL (12.0-18.0) 05/29/17 08:02 Hct 37.4 % (35.0-51.0) 05/29/17 08:02 MCV 94.7 fL (80.0-94.0) H 05/29/17 08:02 MCH 31.6 pg (27.0-31.0) H 05/29/17 08:02 MCHC 33.4 g/dL (33.0-37.0) 05/29/17 08:02 RDW 15.6 % (11.5-14.5) H 05/29/17 08:02 Plt Count 114 K/uL (130-400) L 05/29/17 08:02 MPV 9.9 fL (7.2-11.7) 05/29/17 08:02 Neut % (Auto) 55.6 % (50.0-75.0) 05/29/17 08:02 Lymph % (Auto) 27.5 % (20.0-40.0) 05/29/17 08:02 [place] % (Auto) 12.0 % (0.0-10.0) H 05/29/17 08:02 Eos % (Auto) 4.6 % (0.0-4.0) H 05/29/17 08:02 Baso % (Auto) 0.3 % (0.0-2.0) 05/29/17 08:02 Neut # 2.7 K/uL (1.8-7.0) 05/29/17 08:02 Lymph # 1.3 K/uL (1.0-4.3) 05/29/17 08:02 Ford # 0.6 K/uL (0.0-0.8) 05/29/17 08:02 Eos # 0.2 K/uL (0.0-0.7) 05/29/17 08:02 Baso # 0.0 K/uL (0.0-0.2) 05/29/17 08:02 Differential Comment 05/28/17 08:13 APTT 37 SECONDS (21-34) H 05/25/17 07:26 Sodium 138 mmol/L (132-148) 05/29/17 08:02 Potassium 4.4 mmol/L (3.6-5.2) 05/29/17 08:02 Chloride 104 mmol/L (98-107) 05/29/17 08:02 Carbon Dioxide 26 mmol/L (22-30) 05/29/17 08:02 Anion Gap 13 (10-20) 05/29/17 08:02 BUN 12 mg/dL (9-20) 05/29/17 08:02 Creatinine 0.7 MG/DL (0.8-1.5) L 05/29/17 08:02 Est GFR ( Amer) > 60 05/29/17 08:02 Est GFR (Non-Af Amer) > 60 05/29/17 08:02 Random Glucose 83 mg/dL (75-110) 05/29/17 08:02 Calcium 8.6 mg/dl (8.6-10.4) 05/29/17 08:02 Phosphorus 3.8 mg/dL (2.5-4.5) 05/29/17 08:02 Magnesium 1.8 mg/dL (1.6-2.3) 05/29/17 08:02 Total Bilirubin 0.5 mg/dL (0.2-1.3) 05/29/17 08:02 AST 24 U/L (17-59) 05/29/17 08:02 ALT 15 U/L (21-72) L 05/29/17 08:02 Alkaline Phosphatase 44 U/L (38-126) 05/29/17 08:02 Total Creatine Kinase 97 U/L (55-170) 05/19/17 17:44 CK-MB (Mass) 1.24 ng/mL (0.0-3.38) 05/19/17 17:44 Troponin I < 0.0120 ng/mL (0.00-0.120) 05/19/17 17:44 NT-Pro-B Natriuret Pep 109 pg/mL (0-900) 05/19/17 17:44 Total Protein 6.0 g/dL (6.3-8.3) L 05/29/17 08:02 Albumin 3.2 g/dL (3.5-5.0) L 05/29/17 08:02 Globulin 2.8 gm/dL (2.2-3.9) 05/29/17 08:02 Albumin/Globulin Ratio 1.1 (1.0-2.1) 05/29/17 08:02 Urine Color Yellow (YELLOW) 05/19/17 17:44 Urine Clarity Clear (Clear) 05/19/17 17:44 Urine pH 6.0 (5.0-8.0) 05/19/17 17:44 Ur Specific [place] 1.004 (1.003-1.030) 05/19/17 17:44 Urine Protein Negative mg/dL (NEGATIVE) 05/19/17 17:44 Urine Glucose (UA) Normal mg/dL (Normal) 05/19/17 17:44 Urine Ketones Negative mg/dL (NEGATIVE) 05/19/17 17:44 Urine Blood Negative (NEGATIVE) 05/19/17 17:44 Urine Nitrate Negative (NEGATIVE) 05/19/17 17:44 Urine Bilirubin Negative (NEGATIVE) 05/19/17 17:44 Urine Urobilinogen Normal mg/dL (0.2-1.0) 05/19/17 17:44 Ur Leukocyte Esterase Neg James/uL (Negative) 05/19/17 17:44 Urine WBC (Auto) 1 /hpf (0-5) 05/19/17 17:44 Urine Opiates Screen Negative (NEGATIVE) 05/19/17 17:44 Urine Methadone Screen Negative (NEGATIVE) 05/19/17 17:44 Ur Barbiturates Screen Negative (NEGATIVE) 05/19/17 17:44 Ur Phencyclidine Scrn Negative (NEGATIVE) 05/19/17 17:44 Ur Amphetamines Screen Negative (NEGATIVE) 05/19/17 17:44 U Benzodiazepines Scrn Negative (NEGATIVE) 05/19/17 17:44 U Oth Cocaine Metabols Negative (NEGATIVE) 05/19/17 17:44 U Cannabinoids Screen Negative (NEGATIVE) 05/19/17 17:44 Alcohol, Quantitative 273 mg/dl (0-10) H 05/19/17 17:44 Attending/Attestation - Attestation I have personally seen and examined this patient.: Yes I have fully participated in the care of the patient.: Yes I have reviewed all pertinent clinical information, including history, physical exam and plan: Yes Notes (Text): 05/30/17 17:36 Patient was seen and examined at bedside with the resident Patient is able to swallow without any difficulty Patient also evaluated by psychiatry and cleared for discharge We will discharge the patient to home and he will follow up with his PMD as outpatient I agree with the discharge note but the resident
== END 2017-05-29 15:32 | disposition home or self-care (01) | DRG 750 ==
LOC: C.ER 16:58 → C.9E 18:42 → UNDOADMOB 18:42 → C.9E 21:44 → C.3T 21:44 → INTOOBSV 05-21 16:22 → OBSVTOIN 05-21 16:22 → C.3T 05-22 13:42 → C.5E 05-22 13:42 → C.3T 05-24 18:45 → C.5E 05-24 18:45
PROVIDERS: ADMIT Internal Medicine; ATTEND Internal Medicine
PROC: HZ2ZZZZ Detoxification Services for Substance Abuse Treatment (ICD-10-PCS; principal; 2017-05-21)
PROC: HZ52ZZZ Individual Psychotherapy for Substance Abuse Treatment, Cognitive-Behavioral (ICD-10-PCS; 2017-05-21)
PROC: GZ58ZZZ Individual Psychotherapy, Cognitive-Behavioral (ICD-10-PCS; 2017-05-21)
PROC: GZ56ZZZ Individual Psychotherapy, Supportive (ICD-10-PCS; 2017-05-21)
PROC: HZ59ZZZ Individual Psychotherapy for Substance Abuse Treatment, Supportive (ICD-10-PCS; 2017-05-21)
PROC: HZ56ZZZ Individual Psychotherapy for Substance Abuse Treatment, Psychoeducation (ICD-10-PCS; 2017-05-21)
PROC: 0DC38ZZ Extirpation of Matter from Lower Esophagus, Via Natural or Artificial Opening Endoscopic (ICD-10-PCS; 2017-05-26)
PROC: 0DC38ZZ Extirpation of Matter from Lower Esophagus, Via Natural or Artificial Opening Endoscopic (ICD-10-PCS; 2017-05-27)
PROC: 0DB38ZX Excision of Lower Esophagus, Via Natural or Artificial Opening Endoscopic, Diagnostic (ICD-10-PCS; 2017-05-27)
DX: F10.230 Alcohol dependence with withdrawal, uncomplicated (principal); J44.1 Chronic obstructive pulmonary disease with (acute) exacerbation; F33.1 Major depressive disorder, recurrent, moderate; K22.10 Ulcer of esophagus without bleeding; J43.2 Centrilobular emphysema; I10 Essential (primary) hypertension; J98.11 Atelectasis; T18.128A Food in esophagus causing other injury, initial encounter; R13.10 Dysphagia, unspecified; F14.90 Cocaine use, unspecified, uncomplicated; F17.210 Nicotine dependence, cigarettes, uncomplicated; Y90.8 Blood alcohol level of 240 mg/100 ml or more; F41.9 Anxiety disorder, unspecified; D72.829 Elevated white blood cell count, unspecified; F10.220 Alcohol dependence with intoxication, uncomplicated; F12.90 Cannabis use, unspecified, uncomplicated; K20.9 Esophagitis, unspecified; K29.70 Gastritis, unspecified, without bleeding; Z93.4 Other artificial openings of gastrointestinal tract status; Z59.0 Homelessness; Z87.11 Personal history of peptic ulcer disease

== ENCOUNTER 2017-06-03 14:50 | Emergency (ER) | payer MEDICAID, OTHER ==
[2017-06-03 15:25] VITALS: BMI 19.3
[2017-06-03 15:36] VITALS: TEMP 98.1; O2SAT 96
--- NOTE | 2017-06-03 17:20 | C.PDOC ---
History Of Present Illness 57M c/o voice hoarseness and vomiting after drinking coffee and smoking this am. he was here recently and had EGD x2 for food bolus removal. also reports watery diarrhea x1 yesterday and x1 today. he has not attempted to eat any food today. Time Seen by Provider: 06/03/17 16:51 Chief Complaint (Nursing): ENT Problem Past Medical History Vital Signs: Last Vital Signs Temp 98.1 F 06/03/17 15:29 Pulse 87 06/03/17 19:20 Resp 18 06/03/17 19:20 BP 112/82 06/03/17 19:20 Pulse Ox 96 06/03/17 19:20 - Medical History PMH: Anxiety, Asthma, Bronchitis, COPD, Depression, Gastrointestinal Ulcer, HTN , Pneumonia Denies: HIV, Chronic Kidney Disease, Seizures, Sexually Transmitted Disease Surgical History: Appendectomy, Tonsillectomy - [facility] Procedures CONTR ABD ARTERIOGRM NEC (05/20/07) DETOXIFICATION SERVICES FOR SUBSTANCE ABUSE TREATMENT (05/21/17) ESOPHAGOGASTRODUODENOSCOPY [EGD] W/CLOSED BIOPSY (05/20/07) EXCISION OF LOWER ESOPHAGUS, ENDO, DIAGN (05/21/17) EXTIRPATION OF MATTER FROM LOWER ESOPHAGUS, ENDO (05/21/17) GROUP DIRECTOR OF SPORTS MEDICINE FOR SUBSTANCE ABUSE TREATMENT, PSYCHOEDUCATION (01/14/17) GROUP DIRECTOR OF SPORTS MEDICINE FOR SUBSTANCE ABUSE, COGNITIVE BEHAVIORAL (01/14/17) GROUP PSYCHOTHERAPY (04/22/17) INDIV DIRECTOR OF SPORTS MEDICINE FOR SUBSTANCE ABUSE TREATMENT, PSYCHOEDUCATION (01/14/17) INDIV DIRECTOR OF SPORTS MEDICINE FOR SUBSTANCE ABUSE, COGNITIVE BEHAVIORAL (01/14/17) INDIV PSYCHOTHERAPY FOR SUBSTANCE ABUSE TREATMENT, SUPPORT (05/21/17) INDIV PSYCHOTHERAPY FOR SUBSTANCE ABUSE, COGNITIV BEHAVIORAL (05/21/17) INDIV PSYCHOTHERAPY FOR SUBSTANCE ABUSE, PSYCHOEDUCATION (05/21/17) INDIVIDUAL PSYCHOTHERAPY, COGNITIVE-BEHAVIORAL (05/21/17) INDIVIDUAL PSYCHOTHERAPY, SUPPORTIVE (05/21/17) INJECT/INFUSE NEC (03/20/12) MEDICATION MANAGEMENT (03/12/17) MEDS MGMT FOR SUBSTANCE ABUSE TREATMENT, OTH REPL MED (03/12/17) Family History: States: Other Other Family History: nc - Social History Hx Tobacco Use: Yes Hx Alcohol Use: Yes Hx Substance Use: Yes (heroin) - Immunization History Hx Tetanus Toxoid Vaccination: Yes Hx Influenza Vaccination: Yes (01/2016) Hx Pneumococcal Vaccination: Yes (2016) Review Of Systems Constitutional: Negative for: Fever Cardiovascular: Negative for: Chest Pain Respiratory: Positive for: Cough (chronic). Negative for: Shortness of Breath Gastrointestinal: Positive for: Nausea, Vomiting. Negative for: Abdominal Pain Genitourinary: Negative for: Dysuria Neurological: Negative for: Weakness, Numbness Physical Exam - Physical Exam Appears: Well, Non-toxic, No Acute Distress Skin: Warm, Dry Head: Atraumatic Eye(s): bilateral: PERRL Nose: No Epistaxis Oral Mucosa: Moist Tongue: No Swelling Lips: No Swelling Throat: No Erythema, No Exudate, No Drooling Neck: Normal ROM Cardiovascular: Rhythm Regular Respiratory: No Decreased Breath Sounds, No Accessory Muscle Use, No Rales, No Rhonchi, No Stridor, Wheezing Gastrointestinal/Abdominal: Soft, No Tenderness, No Distention, No Guarding, No Rebound Neurological/Psych: Oriented x3, Other (no focal deficits) ED Course And Treatment - Laboratory Results Result Diagrams: 06/03/17 17:51 06/03/17 17:51 O2 Sat by Pulse Oximetry: 96 Medical Decision Making Medical Decision Makinpm the pt is sleeping. upon awakening he appears well, no distress. I gave him some water which he tolerated without difficulty. disc test results, plan for f/u, rtr. Disposition - Disposition Disposition: HOME/ ROUTINE Disposition Time: 20:19 Condition: STABLE - Clinical Impression Clinical Impression: Hoarseness
[2017-06-03] MEDS ORDERED: Sodium Chloride 0.9% 1,000 ML IV ONE (17:33)
[2017-06-03 18:04] LABS: ALBUMIN 3.3 g/dL (3.5-5.0)
[2017-06-03 18:06] LABS: BASO % 0.1 % (0.0-2.0); EOS # 0.2 K/uL (0.0-0.7); GFR AFRICAN-AMERICAN > 60; GFR NON-AFRICAN AMERICAN > 60; HEMOGLOBIN 12.7 g/dL (12.0-18.0); LYMPH # 1.7 K/uL (1.0-4.3); LYMPH % 17.5 % (20.0-40.0); MEAN CELL VOLUME 96.5 fL (80.0-94.0); MEAN CORPUSCULAR HEMOGLOBIN 31.3 pg (27.0-31.0); MEAN CORPUSCULAR HGB CONC 32.5 g/dL (33.0-37.0); MEAN PLATELET VOLUME 8.9 fL (7.2-11.7); MONO # 0.5 K/uL (0.0-0.8); MONO % 4.8 % (0.0-10.0); NEUT # 7.5 K/uL (1.8-7.0); NEUT % 75.6 % (50.0-75.0); RBC 4.05 Mil/uL (4.40-5.90); RED CELL DISTRIBUTION WIDTH 15.7 % (11.5-14.5)
[2017-06-03 18:07] LABS: ALB/GLOB RATIO 1.2 (1.0-2.1); ALT/SGPT 26 U/L (21-72); AST/SGOT 26 U/L (17-59); BLOOD UREA NITROGEN 11 mg/dL (9-20); CALCIUM 7.8 mg/dl (8.6-10.4)
[2017-06-03 18:17] LABS: SQUAMOUS EPITHIAL < 1 /hpf (0-5); URINE BACTERIA RARE (<OCC); URINE BILIRUBIN NEGATIVE (NEGATIVE); URINE BLOOD NEGATIVE (NEGATIVE); URINE CLARITY Clear (Clear); URINE COLOR Amber (YELLOW); URINE GLUCOSE (UA) NORMAL (Normal); URINE LEUKOCYTE ESTERASE NEG Leu/uL (Negative); URINE NITRATE NEGATIVE (NEGATIVE); URINE PROTEIN NEGATIVE (NEGATIVE)
[2017-06-03 19:21] VITALS: BP 112/82; PULSE 87; RESP 18
--- NOTE | 2017-06-04 08:46 | RAD ---
HISTORY: dysphagia, recent EGD COMPARISON: 05/23/2017 TECHNIQUE: Chest PA and lateral FINDINGS: LUNGS: Bilateral lung hyperaeration consistent with COPD/emphysema -similar. No consolidation. PLEURA: No significant pleural effusion identified. No pneumothorax apparent. CARDIOVASCULAR: Normal. OSSEOUS STRUCTURES: No significant abnormalities. VISUALIZED UPPER ABDOMEN: Central t surgical clips OTHER FINDINGS: None. IMPRESSION: No active disease. COPD/emphysema
== END 2017-06-03 20:30 | disposition home or self-care (01) ==
LOC: C.ER 14:50
DX: R49.0 Dysphonia (principal)

== ENCOUNTER 2017-07-13 22:25 | Observation (INO) | payer MEDICAID, OTHER ==
[2017-07-13 22:26] VITALS: BMI 20.2
[2017-07-13] MEDS ORDERED: Lidocaine 2% w Epi 1:100,000 Inj IJ ONE ×2 (23:16→23:36)
[2017-07-13] MEDS ORDERED: Bacitracin 500 Units/gm Oint Foilpak UD TOP ONE (23:46)
--- NOTE | 2017-07-13 23:47 | C.PDOC ---
History Of Present Illness <Kelly Mckeon - Last Filed: 07/15/17 09:17> <Linda Cheatham - Last Filed: 07/20/17 09:16> 57 year old male, SP trip and fall, presents to the ER with a complaint of a forehead and nose injury. Patient admits he has been drinking tonight and fell while attempting to climb some steps. Denies LOC, nausea, vomiting, or other injury. (Kelly Mckeon) History Per: Patient History/Exam Limitations: no limitations Injury Occurred (Timing): Just Before Arrival Onset/Duration Of Symptoms: Hrs Patient States: Fell Striking Head Loss Of Consciousness: No Recent travel outside of the [place]: No <Kelly Mckeon - Last Filed: 07/15/17 09:17> <Linda Cheatham - Last Filed: 07/20/17 09:16> Time Seen by Provider: 07/13/17 23:13 Chief Complaint (Nursing): Abnormal Skin Integrity Past Medical History Reviewed: Historical Data, Nursing Documentation, Vital Signs - Medical History PMH: Anxiety, Asthma, Bronchitis, COPD, Depression, Gastrointestinal Ulcer, HTN , Pneumonia Surgical History: Appendectomy, Tonsillectomy Family History: States: Unknown Family Hx - Social History Hx Tobacco Use: Yes Hx Alcohol Use: Yes Hx Substance Use: Yes (heroin) - Immunization History Hx Tetanus Toxoid Vaccination: Yes Hx Influenza Vaccination: Yes (01/2016) Hx Pneumococcal Vaccination: Yes (2015) <Kelly Mckeon - Last Filed: 07/15/17 09:17> <Linda Cheatham - Last Filed: 07/20/17 09:16> Vital Signs: Last Vital Signs Temp 97.8 F 07/14/17 06:07 Pulse 82 07/14/17 06:07 Resp 16 07/14/17 06:07 BP 116/68 07/14/17 06:07 Pulse Ox 96 07/14/17 06:07 - [facility] Procedures CONTR ABD ARTERIOGRM NEC (05/20/07) DETOXIFICATION SERVICES FOR SUBSTANCE ABUSE TREATMENT (05/21/17) ESOPHAGOGASTRODUODENOSCOPY [EGD] W/CLOSED BIOPSY (05/20/07) EXCISION OF LOWER ESOPHAGUS, ENDO, DIAGN (05/21/17) EXTIRPATION OF MATTER FROM LOWER ESOPHAGUS, ENDO (05/21/17) GROUP SECURITY GUARD DISPATCHER FOR SUBSTANCE ABUSE TREATMENT, PSYCHOEDUCATION (01/14/17) GROUP SECURITY GUARD DISPATCHER FOR SUBSTANCE ABUSE, COGNITIVE BEHAVIORAL (01/14/17) GROUP PSYCHOTHERAPY (04/22/17) INDIV SECURITY GUARD DISPATCHER FOR SUBSTANCE ABUSE TREATMENT, PSYCHOEDUCATION (01/14/17) INDIV SECURITY GUARD DISPATCHER FOR SUBSTANCE ABUSE, COGNITIVE BEHAVIORAL (01/14/17) INDIV PSYCHOTHERAPY FOR SUBSTANCE ABUSE TREATMENT, SUPPORT (05/21/17) INDIV PSYCHOTHERAPY FOR SUBSTANCE ABUSE, COGNITIV BEHAVIORAL (05/21/17) INDIV PSYCHOTHERAPY FOR SUBSTANCE ABUSE, PSYCHOEDUCATION (05/21/17) INDIVIDUAL PSYCHOTHERAPY, COGNITIVE-BEHAVIORAL (05/21/17) INDIVIDUAL PSYCHOTHERAPY, SUPPORTIVE (05/21/17) INJECT/INFUSE NEC (03/20/12) MEDICATION MANAGEMENT (03/12/17) MEDS MGMT FOR SUBSTANCE ABUSE TREATMENT, OTH REPL MED (03/12/17) Review Of Systems Constitutional: Negative for: Fever, Chills Gastrointestinal: Negative for: Nausea, Vomiting Skin: Positive for: Other (Abrasion, Laceration) Neurological: Negative for: Other (LOC) <Kelly Mckeon - Last Filed: 07/15/17 09:17> Physical Exam - Physical Exam Appears: Non-toxic, Other (Mildly intoxicated. Calm, Cooperative.) Skin: Normal Color, Warm, Dry Head: Normacephalic, Laceration (4cm linear to mid forehead, minimal active bleeding, no FB.) Nose: No Epistaxis, No Deformity, No Septal Hematoma, Other (Abrasion to bridge of nose with mild swelling) Oral Mucosa: Moist Neck: Normal, Supple Chest: Symmetrical, No Tenderness Cardiovascular: Rhythm Regular, No Murmur Respiratory: Normal Breath Sounds, No Rales, No Rhonchi, No Wheezing Gastrointestinal/Abdominal: Soft, No Tenderness Neurological/Psych: Oriented x3, Normal Speech, Normal Cognition, Other (No focal deficits) <Kelly Mckeon Last Filed: 07/15/17 09:17> ED Course And Treatment - Other Rad ct head REPEAT X-Ray: Viewed By Me, Read By Radiologist Interpretation: Name: ANISHA STOUT Age: 57Years M Date: 07/14/2017. SSN: [id number] : 1960. Study: CT HEAD WO Requesting Physician: LINDA CHEATHAM. Images: 162. Addl Studies : Provided Clinical History: repeat CT head r/o bleed. CONFIDENTIALITY STATEMENT. This transmission is confidential and is intended to be a privileged communication. It is intended only for the use of the addressee. Access to this. message by anyone else is unauthorized. If you are not the intended recipient, any disclosure, copying, distribution or any action taken, or omitted to. be taken in reliance on it is prohibited and may be unlawful. If you received this communication in error, please notify us by telephone, so that return. of this document to us can be arranged. Page 1 of 2. EXAM: CT Head Without Intravenous Contrast. CLINICAL HISTORY: 57 years old, male; Injury or trauma; Fall; Follow-up exam; Bleeding / hemorrhage; Additional info: Repeat CT head R/O bleed. TECHNIQUE: Axial computed tomography images of the head/brain without intravenous contrast. All CT scans at. this facility use one or more dose reduction techniques, viz.: automated exposure control; ma/ kV. adjustment per patient size (including targeted exams where dose is matched to indication; i.e. head);. or iterative reconstruction technique. COMPARISON: CT - HEAD W/O CONTRAST 07/14/2017 1:47:49 AM. FINDINGS: Brain: No acute intracranial hemorrhage. No significant white matter disease. No edema. New focus. of previously identified increased attenuation within the putamen of the left basal ganglia persists,. unchanged. This focus likely represents early calcification of the basal ganglia, supposed to sequelae. of acute traumatic injury. Ventricles: No significant ventriculomegaly. Bones: No acute displaced fracture. Sinuses: Unremarkable as visualized. No acute sinusitis. Mastoid air cells: Unremarkable as visualized. No mastoid effusion. IMPRESSION: [facility]. [facility]. Final Radiology Report [id number]. Name: ANISHA STOUT Age: 57Years M Date: 07/14/2017. SSN: [id number] : 1960. Study: CT HEAD WO Requesting Physician: LINDA CHEATHAM. Images: 162. Addl Studies : Provided Clinical History: repeat CT head r/o bleed. CONFIDENTIALITY STATEMENT. This transmission is confidential and is intended to be a privileged communication. It is intended only for the use of the addressee. Access to this. message by anyone else is unauthorized. If you are not the intended recipient, any disclosure, copying, distribution or any action taken, or omitted to. be taken in reliance on it is prohibited and may be unlawful. If you received this communication in error, please notify us by telephone, so that return. of this document to us can be arranged. Page 2 of 2. No acute intracranial hemorrhage, or suspicious mass effect. Thank you for allowing us to participate in the care of your patient. Dictated and Authenticated by: Juany Thorne MD. 07/14/2017 5:52 AM Eastern Time ([place] & [place]) - CT Scan/US ct head Other Rad Studies (CT/US): Read By Radiologist, Radiology Report Reviewed CT/US Interpretation: Addendum created by Juany Thorne MD on 07/14/2017 2:47 AM Eastern Time ([place]). I.THIS REPORT CONTAINS FINDINGS THAT MAY BE CRITICAL TO PATIENT CARE. The findings. were verbally communicated via telephone conference with Joanne SHAW at 2:45 AM EDT. on 07/14/2017. The findings were acknowledged and understood. Initial Report created on 2016 2:29 AM Eastern Time ([place] & [place]). EXAM: CT Head Without Intravenous Contrast. CLINICAL HISTORY: 57 years old, male; Injury or trauma; Fall; Initial encounter; Blunt trauma (contusions or hematomas). TECHNIQUE: Axial computed tomography images of the head/brain without intravenous contrast. All CT scans at. this facility use one or more dose reduction techniques, viz.: automated exposure control; ma/kV. adjustment per patient size (including targeted exams where dose is matched to indication; i.e. head);. or iterative reconstruction technique. Coronal and sagittal reformatted images were created and reviewed. COMPARISON: No relevant prior studies available. FINDINGS: [facility]. [facility]. Final Radiology Report [id number]. Name: ANISHA STOUT Age: 57Years M Date: 07/13/2017. SSN: [id number] : 1960. Study: CT HEAD WO Requesting Physician: Kelly Mckeon. Images: 740. Addl Studies: Provided Clinical History: trauma. CONFIDENTIALITY STATEMENT. This transmission is confidential and is intended to be a privileged communication. It is intended only for the use of the addressee. Access to this. message by anyone else is unauthorized. If you are not the intended recipient, any disclosure, copying, distribution or any action taken, or omitted to. be taken in reliance on it is prohibited and may be unlawful. If you received this communication in error, please notify us by telephone, so that return. of this document to us can be arranged. Page 2 of 2. Brain: A subtle 5.6 mm focus of increased attenuation is identified within the putamen of the left. basal ganglia. This likely represents early basal ganglia calcification. However, with the asymmetry, in. the setting of trauma, a small focus of acute hemorrhage cannot be excluded. No significant white. matter disease. No edema. Ventricles: No significant ventriculomegaly. Bones: No acute displaced fracture. Sinuses: Unremarkable as visualized. No acute sinusitis. Mastoid air cells: Unremarkable as visualized. No mastoid effusion. IMPRESSION: Asymmetric focus of increased attenuation within the putamen and the left basal ganglia which likely. represents early basal ganglia calcification, but in the setting of trauma a small focus of acute. hemorrhage cannot be excluded. Short-term followup (2-3 hours) versus noncontrast enhanced MRI. is recommended for further evaluation. Thank you for allowing us to participate in the care of your patient. Dictated and Authenticated by: Juany Thorne MD. 07/14/2017 2:29 AM Eastern Time ([place] & [place]) <Linda Cheatham - Last Filed: 07/20/17 09:16> Laceration - Laceration Repair No standard instances Wound Length (In cm): 4 Description Of Wound: Linear, Clean Wound Cleansed With: Betadine, Sterile Saline Anesthesia: Lidocaine 2%, With Epi Wound Examination: Irrigated With Saline, No FB With Wound Exploration Wound Debridement/Revision: Wound Margins Revised Wound Closure: Suture Suture Technique And Material Used: Interrupted (x5), Prolene (5.0) Wound Complexity: Simple <Kelly Mckeon - Last Filed: 07/15/17 09:17> Medical Decision Making <Kelly Mckeon - Last Filed: 07/15/17 09:17> <Linda Cheatham - Last Filed: 07/20/17 09:16> Medical Decision Making: Plan: * CT Head * Bacitracin * Lac repair (Kelly Mckeon) Disposition Counseled Patient/Family Regarding: Studies Performed, Diagnosis, Need For Followup <Kelly Mckeon - Last Filed: 07/15/17 09:17> Counseled Patient/Family Regarding: Studies Performed, Diagnosis, Need For Followup, Rx Given - Disposition Disposition Time: 06:00 - POA Present On Arrival: Falls Or Trauma <Linda Cheatham - Last Filed: 07/20/17 09:16> - Disposition Disposition: HOME/ ROUTINE Condition: STABLE - Clinical Impression Clinical Impression: Head injury, Alcohol intoxication, Laceration of forehead - Scribe Statement The provider has reviewed the documentation as recorded by the Scribe <Kelly Mckeon - Last Filed: 07/15/17 09:17> <Linda Cheatham - Last Filed: 07/20/17 09:16> - Scribe Statement Juvenal Gamboa All medical record entries made by the Scribe were at my direction and personally dictated by me. I have reviewed the chart and agree that the record accurately reflects my personal performance of the history, physical exam, medical decision making, and the department course for this patient. I have also personally directed, reviewed, and agree with the discharge instructions and disposition. (MikeKelly) Physician Patient Turnover Patient Signed Over To: Linda Cheatham Handoff Comments: fu ct, dispo <Kelly Mckeon - Last Filed: 07/15/17 09:17> Addendum <Kelly Mckeon - Last Filed: 07/15/17 09:17> <Linda Cheatham - Last Filed: 07/20/17 09:16> Addendum: 07/14/17 06:00 Patient currently AAOx3, ambulating normally in the ED. He is clinically sober at this time, will discharge. 07/14/17 0:30 Patient sleeping comfortably, arousable to verbal stimuli. Pending sobriety. (Linda Cheatham)
--- NOTE | 2017-07-14 02:29 | CT ---
EXAM: CT Head Without Intravenous Contrast CLINICAL HISTORY: 57 years old, male; Injury or trauma; Fall; Initial encounter; Blunt trauma (contusions or hematomas) TECHNIQUE: Axial computed tomography images of the head/brain without intravenous contrast. All CT scans at this facility use one or more dose reduction techniques, viz.: automated exposure control; ma/kV adjustment per patient size (including targeted exams where dose is matched to indication; i.e. head); or iterative reconstruction technique. Coronal and sagittal reformatted images were created and reviewed. COMPARISON: No relevant prior studies available. FINDINGS: Brain: A subtle 5.6 mm focus of increased attenuation is identified within the putamen of the left basal ganglia. This likely represents early basal ganglia calcification. However, with the asymmetry, in the setting of trauma, a small focus of acute hemorrhage cannot be excluded. No significant white matter disease. No edema. Ventricles: No significant ventriculomegaly. Bones: No acute displaced fracture. Sinuses: Unremarkable as visualized. No acute sinusitis. Mastoid air cells: Unremarkable as visualized. No mastoid effusion. IMPRESSION: Asymmetric focus of increased attenuation within the putamen and the left basal ganglia which likely represents early basal ganglia calcification, but in the setting of trauma a small focus of acute hemorrhage cannot be excluded. Short-term followup (2-3 hours) versus noncontrast enhanced MRI is recommended for further evaluation.
--- NOTE | 2017-07-14 05:52 | CT ---
EXAM: CT Head Without Intravenous Contrast CLINICAL HISTORY: 57 years old, male; Injury or trauma; Fall; Follow-up exam; Bleeding / hemorrhage; Additional info: Repeat CT head R/O bleed TECHNIQUE: Axial computed tomography images of the head/brain without intravenous contrast. All CT scans at this facility use one or more dose reduction techniques, viz.: automated exposure control; ma/kV adjustment per patient size (including targeted exams where dose is matched to indication; i.e. head); or iterative reconstruction technique. COMPARISON: CT - HEAD W/O CONTRAST 07/14/2017 1:47:49 AM FINDINGS: Brain: No acute intracranial hemorrhage. No significant white matter disease. No edema. New focus of previously identified increased attenuation within the putamen of the left basal ganglia persists, unchanged. This focus likely represents early calcification of the basal ganglia, supposed to sequelae of acute traumatic injury. Ventricles: No significant ventriculomegaly. Bones: No acute displaced fracture. Sinuses: Unremarkable as visualized. No acute sinusitis. Mastoid air cells: Unremarkable as visualized. No mastoid effusion. IMPRESSION: No acute intracranial hemorrhage, or suspicious mass effect.
[2017-07-14 06:08] VITALS: BP 116/68; PULSE 82; RESP 16; TEMP 97.8; O2SAT 96
== END 2017-07-14 05:59 | disposition home or self-care (01) ==
LOC: C.ER 22:25 → C.9OBSV 07-14 01:10
PROVIDERS: ADMIT Emergency Medicine; ATTEND Emergency Medicine
DX: S01.81XA Laceration without foreign body of other part of head, initial encounter (principal); W19.XXXA Unspecified fall, initial encounter; F10.129 Alcohol abuse with intoxication, unspecified; J44.9 Chronic obstructive pulmonary disease, unspecified; J45.909 Unspecified asthma, uncomplicated; I10 Essential (primary) hypertension; F41.9 Anxiety disorder, unspecified
CPT/HCPCS: 12011; 70450; 99283; G0378

== ENCOUNTER 2017-07-29 09:19 | Emergency (ER) | payer MEDICAID, OTHER ==
[2017-07-29 09:19] VITALS: BMI 20.2
[2017-07-29 09:27] VITALS: PULSE 79; RESP 18; TEMP 97.8; O2SAT 96
--- NOTE | 2017-07-29 09:38 | C.PDOC ---
History Of Present Illness 57 yo male, presnts for suture removal. pt has sutures placed on 07/13. no drainage. fever. or other complaints. pt believes 1 suture may have fallen out. Time Seen by Provider: 07/29/17 09:34 Chief Complaint (Nursing): Suture/Staple Removal Past Medical History Reviewed: Historical Data, Nursing Documentation, Vital Signs Vital Signs: Last Vital Signs Temp 97.8 F 07/29/17 09:23 Pulse 79 07/29/17 09:23 Resp 18 07/29/17 09:23 BP 151/93 H 07/29/17 09:23 Pulse Ox 96 07/29/17 09:48 - Medical History PMH: Anxiety, Asthma, Bronchitis, COPD, Depression, Gastrointestinal Ulcer, HTN , Pneumonia Denies: HIV, Chronic Kidney Disease, Seizures, Sexually Transmitted Disease Surgical History: Appendectomy, Tonsillectomy - [facility] Procedures CONTR ABD ARTERIOGRM NEC (05/20/07) DETOXIFICATION SERVICES FOR SUBSTANCE ABUSE TREATMENT (05/21/17) ESOPHAGOGASTRODUODENOSCOPY [EGD] W/CLOSED BIOPSY (05/20/07) EXCISION OF LOWER ESOPHAGUS, ENDO, DIAGN (05/21/17) EXTIRPATION OF MATTER FROM LOWER ESOPHAGUS, ENDO (05/21/17) GROUP MEAT PASSER FOR SUBSTANCE ABUSE TREATMENT, PSYCHOEDUCATION (01/14/17) GROUP MEAT PASSER FOR SUBSTANCE ABUSE, COGNITIVE BEHAVIORAL (01/14/17) GROUP PSYCHOTHERAPY (04/22/17) INDIV MEAT PASSER FOR SUBSTANCE ABUSE TREATMENT, PSYCHOEDUCATION (01/14/17) INDIV MEAT PASSER FOR SUBSTANCE ABUSE, COGNITIVE BEHAVIORAL (01/14/17) INDIV PSYCHOTHERAPY FOR SUBSTANCE ABUSE TREATMENT, SUPPORT (05/21/17) INDIV PSYCHOTHERAPY FOR SUBSTANCE ABUSE, COGNITIV BEHAVIORAL (05/21/17) INDIV PSYCHOTHERAPY FOR SUBSTANCE ABUSE, PSYCHOEDUCATION (05/21/17) INDIVIDUAL PSYCHOTHERAPY, COGNITIVE-BEHAVIORAL (05/21/17) INDIVIDUAL PSYCHOTHERAPY, SUPPORTIVE (05/21/17) INJECT/INFUSE NEC (03/20/12) MEDICATION MANAGEMENT (03/12/17) MEDS MGMT FOR SUBSTANCE ABUSE TREATMENT, OTH REPL MED (03/12/17) Family History: States: Unknown Family Hx - Social History Hx Tobacco Use: Yes Hx Alcohol Use: Yes Hx Substance Use: Yes (heroin) - Immunization History Hx Tetanus Toxoid Vaccination: Yes Hx Influenza Vaccination: Yes (01/2016) Hx Pneumococcal Vaccination: Yes (2016) Review Of Systems Except As Marked, All Systems Reviewed And Found Negative. Skin: Positive for: Other (healed laceration to forehead) Physical Exam - Physical Exam Appears: Well, No Acute Distress Skin: Normal Color, Warm, Dry, Other (laceration, healed to forehead with 4 sutures, c/d/i) Eye(s): bilateral: Normal Inspection, PERRL, EOMI Nose: Normal Throat: Normal Neck: Normal Cardiovascular: Rhythm Regular Respiratory: Normal Breath Sounds Gastrointestinal/Abdominal: Normal Exam Back: Normal Inspection Extremity: Normal ROM ED Course And Treatment O2 Sat by Pulse Oximetry: 96 Medical Decision Making Medical Decision Making: suture removal. noted previous documentation with 5 sutures, however, 4 sutures on exam. pt unsure if 1 "fell out". pt also requests zoloft 100 mg as his pharmacy is closed, and he cannot fill rx until tommorow. Disposition - Disposition Disposition: HOME/ ROUTINE Disposition Time: 09:47 Condition: STABLE Additional Instructions: please follow up with your doctor. return to er with worsening symptoms or cancers. Instructions: Stitches Removal (ED) Forms: [employer] ([place]) - Clinical Impression Clinical Impression: Removal of suture
[2017-07-29] MEDS ORDERED: Bacitracin 500 Units/gm Oint Foilpak UD TOP ONE (09:45)
[2017-07-29] MEDS ORDERED: Bacitracin 500 Units/gm Oint Foilpak UD ONE (09:55)
[2017-07-29 10:05] VITALS: BP 139/78
== END 2017-07-29 10:06 | disposition home or self-care (01) ==
LOC: C.ER 09:19
DX: Z48.02 Encounter for removal of sutures (principal)

== ENCOUNTER 2017-09-18 03:14 | Emergency (ER) | payer MEDICAID ==
[2017-09-18 03:33] VITALS: RESP 20
[2017-09-18 03:55] LABS: BASO % 0.4 % (0.0-2.0); EOS # 0.1 K/uL (0.0-0.7); EOS % 2.1 % (0.0-4.0); HEMATOCRIT 34.5 % (35.0-51.0); LYMPH # 1.7 K/uL (1.0-4.3); LYMPH % 27.3 % (20.0-40.0); MEAN CELL VOLUME 92.6 fL (80.0-94.0); MEAN CORPUSCULAR HEMOGLOBIN 31.9 pg (27.0-31.0); MEAN CORPUSCULAR HGB CONC 34.4 g/dL (33.0-37.0); MEAN PLATELET VOLUME 8.1 fL (7.2-11.7); MONO # 0.5 K/uL (0.0-0.8); MONO % 7.2 % (0.0-10.0); NRBC % 0.1 % (0.0-2.0); RED CELL DISTRIBUTION WIDTH 14.5 % (11.5-14.5); WHITE BLOOD COUNT 6.3 K/uL (4.8-10.8)
[2017-09-18 03:57] LABS: CHLORIDE 100 mmol/L (98-107)
[2017-09-18 03:58] LABS: POTASSIUM 3.9 mmol/L (3.6-5.2); SODIUM 137 mmol/L (132-148)
[2017-09-18 04:00] LABS: ALB/GLOB RATIO 1.2 (1.0-2.1); ALKALINE PHOSPHATASE 60 U/L (38-126); ALT/SGPT 31 U/L (21-72); AST/SGOT 25 U/L (17-59); BILIRUBIN,TOTAL 0.3 mg/dL (0.2-1.3); BLOOD UREA NITROGEN 14 mg/dL (9-20); CARBON DIOXIDE 23 mmol/L (22-30); GFR AFRICAN-AMERICAN > 60; GLUCOSE,RANDOM 80 mg/dL (75-110)
[2017-09-18 04:01] LABS: ALCOHOL SERUM 158 mg/dl (0-10); CALCIUM 8.9 mg/dl (8.6-10.4)
--- NOTE | 2017-09-18 04:53 | C.PDOC ---
History Of Present Illness 57 year old male who presents to the ER stating he is depressed and is requesting to speak to a social worker clinical. Patient states he has had a "bad week" and has been drinking ETOH and smoking marijuana to cope. Denies physical complaints at this time. Time Seen by Provider: 09/18/17 03:51 Chief Complaint (Nursing): Psychiatric Evaluation History Per: Patient History/Exam Limitations: no limitations Onset/Duration Of Symptoms: Days Current Symptoms Are (Timing): Still Present Suicide/Self Injury Attempted (Context): None Modifying Factor(s): Alcohol, Marijuana Associated Symptoms: Depression. denies: Suicidal Thoughts, Suicidal Plan Involuntary Hold By: None Recent travel outside of the [place]: No Past Medical History Reviewed: Historical Data, Nursing Documentation, Vital Signs Vital Signs: Last Vital Signs Temp 97.9 F 09/18/17 03:28 Pulse 97 H 09/18/17 03:28 Resp 20 09/18/17 03:28 BP 113/60 09/18/17 03:28 Pulse Ox 95 09/18/17 06:00 - Medical History PMH: Anxiety, Asthma, Bronchitis, COPD, Depression, Gastrointestinal Ulcer, HTN , Pneumonia Surgical History: Appendectomy, Tonsillectomy - [facility] Procedures CONTR ABD ARTERIOGRM NEC (05/20/07) DETOXIFICATION SERVICES FOR SUBSTANCE ABUSE TREATMENT (05/21/17) ESOPHAGOGASTRODUODENOSCOPY [EGD] W/CLOSED BIOPSY (05/20/07) EXCISION OF LOWER ESOPHAGUS, ENDO, DIAGN (05/21/17) EXTIRPATION OF MATTER FROM LOWER ESOPHAGUS, ENDO (05/21/17) GROUP CHILDREN'S COUNSELOR FOR SUBSTANCE ABUSE TREATMENT, PSYCHOEDUCATION (01/14/17) GROUP CHILDREN'S COUNSELOR FOR SUBSTANCE ABUSE, COGNITIVE BEHAVIORAL (01/14/17) GROUP PSYCHOTHERAPY (04/22/17) INDIV CHILDREN'S COUNSELOR FOR SUBSTANCE ABUSE TREATMENT, PSYCHOEDUCATION (01/14/17) INDIV CHILDREN'S COUNSELOR FOR SUBSTANCE ABUSE, COGNITIVE BEHAVIORAL (01/14/17) INDIV PSYCHOTHERAPY FOR SUBSTANCE ABUSE TREATMENT, SUPPORT (05/21/17) INDIV PSYCHOTHERAPY FOR SUBSTANCE ABUSE, COGNITIV BEHAVIORAL (05/21/17) INDIV PSYCHOTHERAPY FOR SUBSTANCE ABUSE, PSYCHOEDUCATION (05/21/17) INDIVIDUAL PSYCHOTHERAPY, COGNITIVE-BEHAVIORAL (05/21/17) INDIVIDUAL PSYCHOTHERAPY, SUPPORTIVE (05/21/17) INJECT/INFUSE NEC (03/20/12) MEDICATION MANAGEMENT (03/12/17) MEDS MGMT FOR SUBSTANCE ABUSE TREATMENT, OTH REPL MED (03/12/17) Family History: States: Unknown Family Hx - Social History Hx Tobacco Use: Yes Hx Alcohol Use: Yes Hx Substance Use: Yes (heroin) - Immunization History Hx Tetanus Toxoid Vaccination: Yes Hx Influenza Vaccination: Yes (01/2016) Hx Pneumococcal Vaccination: Yes (2015) Review Of Systems Constitutional: Negative for: Fever, Chills Gastrointestinal: Negative for: Nausea, Vomiting Psych: Positive for: Depression Physical Exam - Physical Exam Appears: Non-toxic, No Acute Distress Skin: Normal Color, Warm, Dry Head: Atraumatic, Normacephalic Eye(s): bilateral: Normal Inspection, EOMI Oral Mucosa: Moist Chest: Symmetrical Cardiovascular: Rhythm Regular Respiratory: Normal Breath Sounds, No Accessory Muscle Use Gastrointestinal/Abdominal: Soft, No Tenderness Neurological/Psych: Oriented x3, Normal Speech, Normal Cognition ED Course And Treatment - Laboratory Results Result Diagrams: 09/18/17 03:46 09/18/17 03:46 O2 Sat by Pulse Oximetry: 95 (Room air) Pulse Ox Interpretation: Normal Progress Note: Blood work and urinalysis ordered. Crisis notified. Pt is medically cleared for crisis evaluation Disposition - Disposition Disposition Time: 06:53 Condition: STABLE Forms: [facility] (Czech) - Clinical Impression Clinical Impression: Moderate major depression, single episode - Scribe Statement The provider has reviewed the documentation as recorded by the Scribe Juvenal Gamboa All medical record entries made by the Scribe were at my direction and personally dictated by me. I have reviewed the chart and agree that the record accurately reflects my personal performance of the history, physical exam, medical decision making, and the department course for this patient. I have also personally directed, reviewed, and agree with the discharge instructions and disposition. Physician Patient Turnover Patient Signed Over To: Kelsey Moya Handoff Comments: Pending crisis evaluation for psych admission
[2017-09-18 05:15] LABS: RBC URINE < 1 /hpf (0-3); URINE BILIRUBIN NEGATIVE (NEGATIVE); URINE BLOOD NEGATIVE (NEGATIVE); URINE COLOR Yellow (YELLOW); URINE GLUCOSE (UA) NORMAL (Normal); URINE HYALINE CAST 0-2 /lpf (0-2); URINE KETONE NEGATIVE (NEGATIVE); URINE LEUKOCYTE ESTERASE TRACE Leu/uL (Negative); URINE PROTEIN NEGATIVE (NEGATIVE); URINE UROBILINOGEN NORMAL mg/dL (0.2-1.0); WBC URINE 4 /hpf (0-5)
[2017-09-18 07:32] VITALS: BP 123/76; PULSE 94; TEMP 98.2; O2SAT 96
== END 2017-09-18 08:49 | disposition home or self-care (01) ==
LOC: C.ER 03:14
DX: F32.1 Major depressive disorder, single episode, moderate (principal)

== ENCOUNTER 2017-10-22 19:00 | Inpatient (IN) | payer MEDICAID ==
[2017-10-22 19:16] VITALS: BMI 18.8
[2017-10-22] MEDS ORDERED: Sodium Chloride 0.9% 1,000 ML IV ONE (19:33)
[2017-10-22] MEDS ORDERED: Albuterol-Ipratrop 3 mg / 0.5 (3 ml) UD INH STA ×2 (19:36→19:37)
--- NOTE | 2017-10-22 19:37 | C.PDOC ---
History Of Present Illness 57 year old male presents to the ER with a complaint of SOB and cough for the past 3 days. Denies fever, nausea, vomiting, or chest pain. Chief Complaint (Nursing): Cough, Cold, Congestion History Per: Patient History/Exam Limitations: no limitations Onset/Duration Of Symptoms: Days Current Symptoms Are (Timing): Still Present Location Of Pain: None Sick Contacts (Context): None Associated Symptoms: Cough. denies: Fever, Chills, Nausea, Vomiting Ear Symptoms: Bilateral: None Recent travel outside of the [place]: No Past Medical History Reviewed: Historical Data, Nursing Documentation, Vital Signs Vital Signs: Last Vital Signs Temp 98.2 F 10/23/17 01:48 Pulse 95 H 10/23/17 01:48 Resp 18 10/23/17 01:48 BP 109/65 10/23/17 01:48 Pulse Ox 95 10/23/17 02:02 - Medical History PMH: Anxiety, Asthma, Bronchitis, COPD, Depression, Gastrointestinal Ulcer, HTN , Pneumonia Surgical History: Appendectomy, Tonsillectomy - [facility] Procedures CONTR ABD ARTERIOGRM NEC (05/20/07) DETOXIFICATION SERVICES FOR SUBSTANCE ABUSE TREATMENT (05/21/17) ESOPHAGOGASTRODUODENOSCOPY [EGD] W/CLOSED BIOPSY (05/20/07) EXCISION OF LOWER ESOPHAGUS, ENDO, DIAGN (05/21/17) EXTIRPATION OF MATTER FROM LOWER ESOPHAGUS, ENDO (05/21/17) GROUP BACK END ARCHITECT FOR SUBSTANCE ABUSE TREATMENT, PSYCHOEDUCATION (01/14/17) GROUP BACK END ARCHITECT FOR SUBSTANCE ABUSE, COGNITIVE BEHAVIORAL (01/14/17) GROUP PSYCHOTHERAPY (04/22/17) INDIV BACK END ARCHITECT FOR SUBSTANCE ABUSE TREATMENT, PSYCHOEDUCATION (01/14/17) INDIV BACK END ARCHITECT FOR SUBSTANCE ABUSE, COGNITIVE BEHAVIORAL (01/14/17) INDIV PSYCHOTHERAPY FOR SUBSTANCE ABUSE TREATMENT, SUPPORT (05/21/17) INDIV PSYCHOTHERAPY FOR SUBSTANCE ABUSE, COGNITIV BEHAVIORAL (05/21/17) INDIV PSYCHOTHERAPY FOR SUBSTANCE ABUSE, PSYCHOEDUCATION (05/21/17) INDIVIDUAL PSYCHOTHERAPY, COGNITIVE-BEHAVIORAL (05/21/17) INDIVIDUAL PSYCHOTHERAPY, SUPPORTIVE (05/21/17) INJECT/INFUSE NEC (03/20/12) MEDICATION MANAGEMENT (03/12/17) MEDS MGMT FOR SUBSTANCE ABUSE TREATMENT, OTH REPL MED (03/12/17) Family History: States: Unknown Family Hx - Social History Hx Tobacco Use: Yes Hx Alcohol Use: Yes Hx Substance Use: Yes (heroin) - Immunization History Hx Tetanus Toxoid Vaccination: Yes Hx Influenza Vaccination: Yes (01/2016) Hx Pneumococcal Vaccination: Yes (2015) Review Of Systems Constitutional: Negative for: Fever, Chills Cardiovascular: Negative for: Chest Pain Respiratory: Positive for: Cough, Shortness of Breath. Negative for: Hemoptysis Gastrointestinal: Negative for: Nausea, Vomiting Physical Exam - Physical Exam Appears: Non-toxic, Other (Moderately dyspneic) Skin: Normal Color, Warm, Dry Head: Atraumatic, Normacephalic Eye(s): bilateral: Normal Inspection Oral Mucosa: Moist Chest: Symmetrical Cardiovascular: Rhythm Regular Respiratory: No Rales, Rhonchi (Bilateral), Wheezing (Bilateral) Gastrointestinal/Abdominal: Soft, No Tenderness Extremity: No Pedal Edema Neurological/Psych: Oriented x3, Normal Speech, Other (No focal deficits) ED Course And Treatment - Laboratory Results Result Diagrams: 10/22/17 19:43 10/22/17 19:43 ECG: Interpreted By Me, Viewed By Me ECG Rhythm: Sinus Rhythm ECG Interpretation: Normal, No Acute Changes Interpretation Of ECG: NSR, normal tracings. Rate From EC O2 Sat by Pulse Oximetry: 95 Pulse Ox Interpretation: Abnormal - Radiology CXR: Interpreted by Me, Viewed By Me CXR Interpretation: Yes: No Acute Disease, Other (normal chest film.). No: Infiltrates, Cardiomegaly Progress Note: EKG, blood work, CXR, and flu swab ordered. Nebulizer treatment, solumedrol, and IV fluids administered. On reevaluation, patient is noted to be SOB and wheezing, placed on bipap. Disposition Discussed With : Dino Gonzalez Doctor Will See Patient In The: Hospital Counseled Patient/Family Regarding: Diagnosis - Disposition Disposition: HOSPITALIZED Disposition Time: 02:18 Condition: STABLE Forms: [facility] (Divehi) - POA Present On Arrival: None - Clinical Impression Clinical Impression: Bronchospasm, COPD with acute exacerbation - Scribe Statement The provider has reviewed the documentation as recorded by the Scribe Juvenal Gamboa All medical record entries made by the Scribe were at my direction and personally dictated by me. I have reviewed the chart and agree that the record accurately reflects my personal performance of the history, physical exam, medical decision making, and the department course for this patient. I have also personally directed, reviewed, and agree with the discharge instructions and disposition.
[2017-10-22] MEDS ORDERED: Sodium Chloride 0.9% 1,000 ML ONE (19:43)
[2017-10-22] MEDS ORDERED: Albuterol-Ipratrop 3 mg / 0.5 (3 ml) UD ONE (19:43)
[2017-10-22 19:55] LABS: BASO # 0.1 K/uL (0.0-0.2); BASO % 0.3 % (0.0-2.0); EOS % 0.3 % (0.0-4.0); HEMATOCRIT 41.2 % (35.0-51.0); LYMPH # 0.9 K/uL (1.0-4.3); MEAN CELL VOLUME 96.6 fL (80.0-94.0); MEAN CORPUSCULAR HEMOGLOBIN 31.9 pg (27.0-31.0); MEAN PLATELET VOLUME 8.9 fL (7.2-11.7); MONO % 6.5 % (0.0-10.0); PLATELET COUNT 188 K/uL (130-400); RED CELL DISTRIBUTION WIDTH 16.1 % (11.5-14.5); WHITE BLOOD COUNT 15.6 K/uL (4.8-10.8)
[2017-10-22 20:16] LABS: ALB/GLOB RATIO 1.1 (1.0-2.1); ALKALINE PHOSPHATASE 68 U/L (38-126); ALT/SGPT 34 U/L (21-72); AST/SGOT 25 U/L (17-59); BILIRUBIN,TOTAL 0.4 mg/dL (0.2-1.3); BLOOD UREA NITROGEN 13 mg/dL (9-20); CALCIUM 7.9 mg/dl (8.6-10.4); CARBON DIOXIDE 22 mmol/L (22-30); CHLORIDE 98 mmol/L (98-107); GFR AFRICAN-AMERICAN > 60; POTASSIUM 3.5 mmol/L (3.6-5.2); SODIUM 134 mmol/L (132-148); TOTAL PROTEIN 7.8 g/dL (6.3-8.3)
[2017-10-22 20:17] LABS: GLUCOSE,RANDOM 84 mg/dL (75-110)
[2017-10-22] MEDS ORDERED: Iodixanol 320 MG/ML 100 ML BOTTLE IV ONE (21:38)
[2017-10-22 22:45] LABS: NEUTROPHIL 84 % (50-75); TOTAL CELLS COUNTED 100
--- NOTE | 2017-10-22 23:55 | CT ---
EXAM: CT Angiography Chest With Intravenous Contrast CLINICAL HISTORY: 57 years old, male; Signs and symptoms; Shortness of breath; Additional info: Sob/ elevated d-dimer TECHNIQUE: Axial computed tomographic angiography images of the chest with intravenous contrast using pulmonary embolism protocol. All CT scans at this facility use one or more dose reduction techniques, viz.: automated exposure control; ma/kV adjustment per patient size (including targeted exams where dose is matched to indication; i.e. head); or iterative reconstruction technique. MIP reconstructed images were created and reviewed. Coronal and sagittal reformatted images were created and reviewed. CONTRAST: 100 mL of VISIPAQUE 320 administered intravenously. COMPARISON: No relevant prior studies available. FINDINGS: Pulmonary arteries: No pulmonary embolism. Aorta: No thoracic aortic aneurysm. Lungs: No mass. No consolidation. Centrilobular emphysema is identified. Cylindrical bronchiectasis is also noted. Pleural spaces: No significant effusion. No pneumothorax. Heart: No cardiomegaly. No significant pericardial effusion. No evidence of right heart dysfunction. Bones: No acute fracture. Heterogeneous appearance of the bone marrow is identified, for which clinical correlation is needed. Lymph nodes: No pathologically enlarged lymph nodes. IMPRESSION: No pulmonary embolism. Centrilobular emphysema with cylindrical bronchiectasis. Heterogeneous appearance of the bone marrow for which clinical correlation is needed.
[2017-10-23] MEDS ORDERED: Magnesium Sulfate 1 gm in D5W 1 GM/100 ML BAG IVPB ONE ×3 (02:00→02:49)
[2017-10-23 02:19] LABS: ABG ALLEN TEST POS; ARTERIAL BLOOD GAS MODE BiPAP; ARTERIAL BLOOD HGB O2 SAT 94.3 % (95.0-98.0); CARBOXYHEMOGLOBIN 3.2 % (0.5-1.5); DRAW SITE RR; HHB 0.9 % (0.0-5.0); METHEMOGLOBIN 1.6 % (0.0-3.0)
[2017-10-23] MEDS ORDERED: Albuterol-Ipratrop 3 mg / 0.5 (3 ml) UD ONE (02:30)
[2017-10-23] MEDS: Albuterol-Ipratrop 3 mg / 0.5 (3 ml) UD INH SCH ×6 (04:20→23:40)
[2017-10-23] MEDS: MethylPREDNISolone 40 mg Vial IVP SCH ×3 (06:14→19:00)
--- NOTE | 2017-10-23 08:00 | RAD ---
HISTORY: SOB/ yellowish sputum COMPARISON: Chest radiographs 06/03/2017. TECHNIQUE: Chest PA and lateral FINDINGS: LUNGS: Hyperinflation is again appreciated with flat hemidiaphragms and mild prominence of the main pulmonary artery as well as attenuation of the peripheral vascular pattern. The findings are most compatible with COPD and likely pulmonary artery hypertension. No acute infiltrate bilaterally. PLEURA: No significant pleural effusion identified. No pneumothorax apparent. CARDIOVASCULAR: Normal. OSSEOUS STRUCTURES: No significant abnormalities. VISUALIZED UPPER ABDOMEN: Normal. OTHER FINDINGS: None. IMPRESSION: COPD and likely pulmonary hypertension again evident. No acute infiltrate bilaterally. No pneumothorax.
--- NOTE | 2017-10-23 08:52 | CP.PCM.PN ---
Subjective - Date & Time of Evaluation Date of Evaluation: 10/23/17 Time of Evaluation: 11:00 - Subjective Subjective: Dr. Gonzalez note: Patient is a 57 year old male with a history of COPD, significant smoking history, depression, and etoh abuse history is here for worsening shortness of breath. He had seen his primary care physician a few weeks ago and was put on a medrol dose pack without any relief of symptoms. He has a had a history of frequent admissions for COPD in the past. He says he is still smoking but has cut down to less than a pack a day from 2 packs a day. Objective - Vital Signs/Intake and Output Vital Signs (last 24 hours): Temp Pulse Resp BP Pulse Ox 98.5 F 91 H 20 166/89 H 93 L 10/23/17 08:00 10/23/17 08:00 10/23/17 08:00 10/23/17 08:00 10/23/17 08:00 Intake and Output: 10/23/17 10/23/17 06:59 18:59 Intake Total 415 Balance 415 - Medications Medications: Current Medications Albuterol/Ipratropium (Duoneb 3 Mg/0.5 Mg (3 Ml) Ud) 3 ml INH RQ4 [facility] Last Admin: 10/23/17 07:40 Dose: 3 ml Enoxaparin Sodium (Lovenox) 40 mg SC DAILY [facility] Methylprednisolone (Solu-Medrol) 40 mg IVP Q6 [facility] Last Admin: 10/23/17 06:14 Dose: 40 mg - Labs Labs: 10/22/17 19:43 10/22/17 19:43 - Constitutional Appears: Non-toxic, No Acute Distress - Eye Exam Eye Exam: Normal appearance - Respiratory Exam Respiratory Exam: Decreased Breath Sounds, Prolonged Expiratory Phase, Wheezes. absent: Clear to Ausculation Bilateral, NORMAL BREATHING PATTERN - Cardiovascular Exam Cardiovascular Exam: REGULAR RHYTHM, RRR, +S1, +S2 - GI/Abdominal Exam GI & Abdominal Exam: Soft. absent: Tenderness Assessment and Plan (1) COPD with acute exacerbation Assessment & Plan: duoneb Q4h Solumedrol 40mg Q6H BIPAP is needed for support Patient advised again his need to quit smoking. Patient ruled out for PE, d/c tele for now. Also added Spirivia. Status: Acute (2) Tobacco abuse Assessment & Plan: Patient on nicodern patch, advised again his need to quit smoking. Status: Chronic (3) Major depressive disorder with current active episode Assessment & Plan: continue his medication Zoloft for now. Patient denies any depression, suicidal ideation. Status: Chronic (4) Nocturia associated with benign prostatic hyperplasia Assessment & Plan: flomax Status: Chronic (5) Hypokalemia Assessment & Plan: replaced his potassium, continue to replace as needed. Status: Acute (6) Prophylactic measure Assessment & Plan: Lovenox, SCDs, Pepcid 20mg bid. Status: Acute
[2017-10-23] MEDS: Enoxaparin 40 mg Syringe SC SCH (11:12)
[2017-10-23] MEDS: Oxycodone/Acetaminophen 5/325 mg Tab PO PRN (20:36)
[2017-10-24] MEDS: MethylPREDNISolone 40 mg Vial IVP SCH ×4 (00:31→17:11)
[2017-10-24] MEDS: Oxycodone/Acetaminophen 5/325 mg Tab PO PRN ×5 (00:35→21:33)
[2017-10-24] MEDS: Albuterol-Ipratrop 3 mg / 0.5 (3 ml) UD INH SCH ×6 (03:04→23:46)
[2017-10-24 07:27] LABS: HEMATOCRIT 37.8 % (35.0-51.0); LYMPH # 0.5 K/uL (1.0-4.3); LYMPH % 4.5 % (20.0-40.0); MEAN CELL VOLUME 97.2 fL (80.0-94.0); MEAN CORPUSCULAR HEMOGLOBIN 32.8 pg (27.0-31.0); MEAN CORPUSCULAR HGB CONC 33.8 g/dL (33.0-37.0); MEAN PLATELET VOLUME 9.3 fL (7.2-11.7); MONO # 0.3 K/uL (0.0-0.8); PLATELET COUNT 162 K/uL (130-400); RED CELL DISTRIBUTION WIDTH 16.2 % (11.5-14.5); WHITE BLOOD COUNT 10.5 K/uL (4.8-10.8)
[2017-10-24] MEDS: Tiotropium 18 mcg Cap For Inhalation INH SCH (07:51)
[2017-10-24 08:36] LABS: ALB/GLOB RATIO 1.3 (1.0-2.1); ALKALINE PHOSPHATASE 54 U/L (38-126); ALT/SGPT 30 U/L (21-72); AST/SGOT 16 U/L (17-59); BILIRUBIN,TOTAL 0.5 mg/dL (0.2-1.3); BLOOD UREA NITROGEN 11 mg/dL (9-20); CARBON DIOXIDE 30 mmol/L (22-30); CHLORIDE 98 mmol/L (98-107); GFR AFRICAN-AMERICAN > 60; GLUCOSE,RANDOM 105 mg/dL (75-110); MAGNESIUM 1.7 mg/dL (1.6-2.3); PHOSPHOROUS 3.9 mg/dL (2.5-4.5); POTASSIUM 4.4 mmol/L (3.6-5.2); SODIUM 135 mmol/L (132-148); TOTAL PROTEIN 5.4 g/dL (6.3-8.3)
[2017-10-24 09:01] LABS: NEUTROPHIL 93 % (50-75); TOTAL CELLS COUNTED 100
[2017-10-24] MEDS: Enoxaparin 40 mg Syringe SC SCH (09:59)
--- NOTE | 2017-10-24 10:36 | CARD ---
APPROVED REPORT EKG Measurement Heart [id number] <Conclusion> Normal sinus rhythm Normal ECG
[2017-10-24] MEDS: Fluticasone Nasal 50 mcg/Spray NAS PRN ×2 (13:18→19:46)
[2017-10-24] MEDS: Benzocaine/Menthol (Cepacol) Lozenge MT PRN ×2 (13:22→19:47)
--- NOTE | 2017-10-24 14:52 | CP.PCM.PN ---
Subjective - Date & Time of Evaluation Date of Evaluation: 10/24/17 Time of Evaluation: 10:00 - Subjective Subjective: PGY3 on medicine Dr. Gonzalez service: Pt seen and examined at bedside this morning. Pt did not use BIPAP overnight, but still complains of SOB and productive cough. Pt also complains of weakness, as well as dry nose due to oxygen use. No other complaints at this time. Objective - Vital Signs/Intake and Output Vital Signs (last 24 hours): Temp Pulse Resp BP Pulse Ox 97.5 F L 74 18 140/85 99 10/24/17 08:30 10/24/17 08:30 10/24/17 08:30 10/24/17 08:30 10/24/17 08:30 Intake and Output: 10/24/17 10/24/17 06:59 18:59 Intake Total 480 Output Total 800 Balance -320 - Medications Medications: Current Medications Acetaminophen (Tylenol 325mg Tab) 650 mg PO Q6 PRN PRN Reason: Pain, severe (8-10) Albuterol/Ipratropium (Duoneb 3 Mg/0.5 Mg (3 Ml) Ud) 3 ml INH RQ4 [facility] Last Admin: 10/24/17 11:16 Dose: 3 ml Benzocaine/Menthol (Cepacol Sore Throat) 1 arya MT Q4H PRN PRN Reason: Sore Throat Last Admin: 10/24/17 13:22 Dose: 1 arya Enoxaparin Sodium (Lovenox) 40 mg SC DAILY [facility] Last Admin: 10/24/17 09:59 Dose: 40 mg Famotidine (Pepcid) 20 mg PO BID [facility] Last Admin: 10/24/17 09:58 Dose: 20 mg Fluticasone Propionate (Flonase) 2 spr NAILA Q6H PRN PRN Reason: nose discomfort Last Admin: 10/24/17 13:18 Dose: 2 spray Gabapentin (Neurontin) 100 mg PO TID [facility] Last Admin: 10/24/17 13:17 Dose: 100 mg Methylprednisolone (Solu-Medrol) 40 mg IVP Q6 [facility] Last Admin: 10/24/17 11:55 Dose: 40 mg Oxycodone/Acetaminophen (Percocet 5/325 Mg Tab) 1 tab PO Q4H PRN PRN Reason: pain Stop: 10/26/17 17:52 Last Admin: 10/24/17 11:49 Dose: 1 tab Sertraline HCl (Zoloft) 100 mg PO DAILY [facility] Last Admin: 10/24/17 09:58 Dose: 100 mg Tamsulosin HCl (Flomax) 0.4 mg PO DAILY [facility] Last Admin: 10/24/17 09:57 Dose: 0.4 mg Tiotropium [place] (Spiriva) 18 mcg INH RQ24 [facility] Last Admin: 10/24/17 07:51 Dose: 18 mcg - Labs Labs: 10/24/17 07:07 10/24/17 07:07 - Constitutional Appears: Non-toxic, No Acute Distress - Head Exam Head Exam: NORMOCEPHALIC - Eye Exam Eye Exam: Normal appearance - ENT Exam ENT Exam: Mucous Membranes Moist - Respiratory Exam Respiratory Exam: Rales, Rhonchi, Wheezes, NORMAL BREATHING PATTERN - Cardiovascular Exam Cardiovascular Exam: REGULAR RHYTHM, +S1, +S2. absent: Gallop, Rubs - GI/Abdominal Exam GI & Abdominal Exam: Soft, Normal Bowel Sounds - Neurological Exam Neurological Exam: Alert, Awake, Oriented x3 - Psychiatric Exam Psychiatric exam: Normal Mood - Skin Skin Exam: Intact Assessment and Plan - Assessment and Plan (Free Text) Assessment: (1) COPD with acute exacerbation Assessment & Plan: duoneb Q4h Solumedrol 40mg Q6H BIPAP is needed for support Patient advised again his need to quit smoking. Patient ruled out for PE, d/c tele for now. Continue Spiriva Status: Acute (2) Tobacco abuse Assessment & Plan: Patient on nicodern patch, advised again his need to quit smoking. Status: Chronic (3) Major depressive disorder with current active episode Assessment & Plan: continue his medication Zoloft for now. Patient denies any depression, suicidal ideation. Status: Chronic (4) Nocturia associated with benign prostatic hyperplasia Assessment & Plan: Flomax Status: Chronic (5) Hypokalemia Assessment & Plan: replaced his potassium, continue to replace as needed. Status: Acute (6) Prophylactic measure Assessment & Plan: Lovenox, SCDs, Pepcid 20mg bid. Cepachol cough drops and flonase. Status: Acute
[2017-10-24 15:41] VITALS: RESP 20
[2017-10-25] MEDS: MethylPREDNISolone 40 mg Vial IVP SCH ×4 (00:27→18:04)
[2017-10-25] MEDS: Oxycodone/Acetaminophen 5/325 mg Tab PO PRN ×4 (01:45→19:45)
[2017-10-25] MEDS: Albuterol-Ipratrop 3 mg / 0.5 (3 ml) UD INH SCH ×6 (04:36→23:43)
[2017-10-25 08:02] LABS: HEMATOCRIT 43.6 % (35.0-51.0); LYMPH # 1.2 K/uL (1.0-4.3); LYMPH % 8.9 % (20.0-40.0); MEAN CELL VOLUME 96.6 fL (80.0-94.0); MEAN CORPUSCULAR HEMOGLOBIN 32.3 pg (27.0-31.0); MEAN CORPUSCULAR HGB CONC 33.5 g/dL (33.0-37.0); MEAN PLATELET VOLUME 9.2 fL (7.2-11.7); MONO # 0.5 K/uL (0.0-0.8); MONO % 3.9 % (0.0-10.0); PLATELET COUNT 234 K/uL (130-400); RED CELL DISTRIBUTION WIDTH 16.1 % (11.5-14.5); WHITE BLOOD COUNT 13.2 K/uL (4.8-10.8)
[2017-10-25] MEDS: Tiotropium 18 mcg Cap For Inhalation INH SCH (08:29)
[2017-10-25 08:32] LABS: BLOOD UREA NITROGEN 13 mg/dL (9-20); CALCIUM 8.6 mg/dl (8.6-10.4); CARBON DIOXIDE 36 mmol/L (22-30); CHLORIDE 95 mmol/L (98-107); GFR AFRICAN-AMERICAN > 60; GLUCOSE,RANDOM 103 mg/dL (75-110); POTASSIUM 4.6 mmol/L (3.6-5.2); SODIUM 137 mmol/L (132-148)
--- NOTE | 2017-10-25 09:04 | CP.PCM.PN ---
Subjective - Date & Time of Evaluation Date of Evaluation: 10/25/17 Time of Evaluation: 09:30 - Subjective Subjective: Dr. Gonzalez note: Patient is seen in room. He is complaining of coughing today, which he says started yesterday, feeling a little better. No fever, chills, nausea, vomiting. Objective - Vital Signs/Intake and Output Vital Signs (last 24 hours): Temp Pulse Resp BP Pulse Ox 97.9 F 91 H 20 159/85 H 94 L 10/25/17 08:42 10/25/17 08:42 10/25/17 08:42 10/25/17 08:42 10/25/17 08:42 Intake and Output: 10/25/17 10/25/17 06:59 18:59 Intake Total 760 Output Total 400 Balance 360 - Medications Medications: Current Medications Acetaminophen (Tylenol 325mg Tab) 650 mg PO Q6 PRN PRN Reason: Pain, severe (8-10) Albuterol/Ipratropium (Duoneb 3 Mg/0.5 Mg (3 Ml) Ud) 3 ml INH RQ4 [facility]S AT [facility] Last Admin: 10/25/17 07:38 Dose: 3 ml Benzocaine/Menthol (Cepacol Sore Throat) 1 arya MT Q4H PRN PRN Reason: Sore Throat Last Admin: 10/24/17 19:47 Dose: 1 arya Enoxaparin Sodium (Lovenox) 40 mg SC DAILY [facility] 234 BEDS AT [facility] Last Admin: 10/24/17 09:59 Dose: 40 mg Famotidine (Pepcid) 20 mg PO BID [facility] 234 BEDS AT [facility] Last Admin: 10/24/17 17:11 Dose: 20 mg Fluticasone Propionate (Flonase) 2 spr NAILA Q6H PRN PRN Reason: nose discomfort Last Admin: 10/24/17 19:46 Dose: 1 spray Gabapentin (Neurontin) 100 mg PO TID [facility] 234 B[facility]S AT [facility] Last Admin: 10/24/17 17:11 Dose: 100 mg Methylprednisolone (Solu-Medrol) 40 mg IVP Q6 [facility] 234 BEDS AT [facility] Last Admin: 10/25/17 06:54 Dose: 40 mg Oxycodone/Acetaminophen (Percocet 5/325 Mg Tab) 1 tab PO Q4H PRN PRN Reason: pain Stop: 10/26/17 17:52 Last Admin: 10/25/17 01:45 Dose: 1 tab Sertraline HCl (Zoloft) 100 mg PO DAILY [facility] 234 BEDS AT [facility] Last Admin: 10/24/17 09:58 Dose: 100 mg Tamsulosin HCl (Flomax) 0.4 mg PO DAILY [facility] 234 BEDS AT [facility] Last Admin: 10/24/17 09:57 Dose: 0.4 mg Tiotropium [place] (Spiriva) 18 mcg INH RQ24 [facility] 234 BEDS AT [facility] Last Admin: 10/25/17 08:29 Dose: 18 mcg - Labs Labs: 10/25/17 07:42 10/25/17 07:42 - Constitutional Appears: Non-toxic, No Acute Distress, Older Than Stated Age - Eye Exam Eye Exam: Normal appearance - Respiratory Exam Respiratory Exam: Decreased Breath Sounds, Wheezes. absent: Clear to Ausculation Bilateral - Cardiovascular Exam Cardiovascular Exam: REGULAR RHYTHM, RRR, +S1, +S2. absent: Gallop, Rubs - GI/Abdominal Exam GI & Abdominal Exam: Soft, Normal Bowel Sounds. absent: Tenderness - Extremities Exam Extremities Exam: Normal Inspection. absent: Pedal Edema - Back Exam Back Exam: NORMAL INSPECTION - Psychiatric Exam Psychiatric exam: Normal Affect, Normal Mood - Skin Skin Exam: Normal Color Assessment and Plan - Assessment and Plan (Free Text) Assessment: (1) COPD with acute exacerbation Assessment & Plan: 10/25: continue IV steroids, BIPAP if needed, duonebs, Spiriva. duoneb Q4h Solumedrol 40mg Q6H BIPAP is needed for support Patient advised again his need to quit smoking. Patient ruled out for PE, d/c tele for now. Continue Spiriva Status: Acute (2) Tobacco abuse Assessment & Plan: Patient on nicodern patch, advised again his need to quit smoking. Status: Chronic (3) Major depressive disorder with current active episode Assessment & Plan: continue his medication Zoloft for now. Patient denies any depression, suicidal ideation. Status: Chronic (4) Nocturia associated with benign prostatic hyperplasia Assessment & Plan: Flomax Status: Chronic (5) Hypokalemia Assessment & Plan: replaced his potassium, continue to replace as needed. Status: Acute (6) Prophylactic measure Assessment & Plan: Lovenox, SCDs, Pepcid 20mg bid. Cepachol cough drops and flonase. Status: Acute
[2017-10-25 09:42] LABS: NEUTROPHIL 87 % (50-75); REACTIVE LYMPHOCYTES 1 % (0-0); TOTAL CELLS COUNTED 100
[2017-10-25 09:43] LABS: LARGE PLATELETS PRESENT
[2017-10-25] MEDS: Enoxaparin 40 mg Syringe SC SCH (10:40)
[2017-10-25] MEDS: Fluticasone Nasal 50 mcg/Spray NAS PRN ×2 (11:13→19:47)
[2017-10-25] MEDS: Benzocaine/Menthol (Cepacol) Lozenge MT PRN ×2 (11:13→21:38)
[2017-10-26] MEDS: MethylPREDNISolone 40 mg Vial IVP SCH ×5 (00:48→23:53)
[2017-10-26] MEDS: Oxycodone/Acetaminophen 5/325 mg Tab PO PRN ×4 (00:56→14:39)
[2017-10-26] MEDS: Albuterol-Ipratrop 3 mg / 0.5 (3 ml) UD INH SCH ×5 (03:07→19:42)
[2017-10-26 08:12] LABS: HEMATOCRIT 42.4 % (35.0-51.0); LYMPH # 0.8 K/uL (1.0-4.3); LYMPH % 7.6 % (20.0-40.0); MEAN CELL VOLUME 96.2 fL (80.0-94.0); MEAN CORPUSCULAR HEMOGLOBIN 32.8 pg (27.0-31.0); MEAN PLATELET VOLUME 9.4 fL (7.2-11.7); MONO # 0.4 K/uL (0.0-0.8); MONO % 4.5 % (0.0-10.0); NRBC % 0.1 % (0.0-2.0); PLATELET COUNT 235 K/uL (130-400); RED CELL DISTRIBUTION WIDTH 15.3 % (11.5-14.5); WHITE BLOOD COUNT 10.1 K/uL (4.8-10.8)
[2017-10-26 08:56] LABS: ALB/GLOB RATIO 1.4 (1.0-2.1); ALKALINE PHOSPHATASE 62 U/L (38-126); ALT/SGPT 38 U/L (21-72); AST/SGOT 28 U/L (17-59); BILIRUBIN,TOTAL 0.6 mg/dL (0.2-1.3); BLOOD UREA NITROGEN 17 mg/dL (9-20); CALCIUM 8.6 mg/dl (8.6-10.4); CARBON DIOXIDE 38 mmol/L (22-30); CHLORIDE 91 mmol/L (98-107); GFR AFRICAN-AMERICAN > 60; GLUCOSE,RANDOM 105 mg/dL (75-110); MAGNESIUM 1.7 mg/dL (1.6-2.3); POTASSIUM 4.7 mmol/L (3.6-5.2); SODIUM 134 mmol/L (132-148); TOTAL PROTEIN 6.6 g/dL (6.3-8.3)
[2017-10-26 10:19] LABS: NEUTROPHIL 83 % (50-75); REACTIVE LYMPHOCYTES 2 % (0-0); TOTAL CELLS COUNTED 100
[2017-10-26] MEDS: Enoxaparin 40 mg Syringe SC SCH (10:30)
[2017-10-26] MEDS: Fluticasone Nasal 50 mcg/Spray NAS PRN ×2 (10:36→23:57)
[2017-10-26] MEDS: Benzocaine/Menthol (Cepacol) Lozenge MT PRN ×3 (10:36→23:40)
[2017-10-26] MEDS: Tiotropium 18 mcg Cap For Inhalation INH SCH (19:40)
[2017-10-26] MEDS ORDERED: Oxycodone/Acetaminophen 5/325 mg Tab PO ONE (23:34)
[2017-10-27] MEDS: Albuterol-Ipratrop 3 mg / 0.5 (3 ml) UD INH SCH ×6 (00:17→23:39)
[2017-10-27] MEDS: MethylPREDNISolone 40 mg Vial IVP SCH ×3 (06:47→18:12)
[2017-10-27] MEDS: Tiotropium 18 mcg Cap For Inhalation INH SCH (08:11)
[2017-10-27 08:28] LABS: BASO % 0.1 % (0.0-2.0); LYMPH % 9.1 % (20.0-40.0); MEAN CELL VOLUME 96.8 fL (80.0-94.0); MEAN CORPUSCULAR HEMOGLOBIN 32.5 pg (27.0-31.0); MEAN CORPUSCULAR HGB CONC 33.6 g/dL (33.0-37.0); MONO # 0.9 K/uL (0.0-0.8); MONO % 8.6 % (0.0-10.0); PLATELET COUNT 248 K/uL (130-400); RED CELL DISTRIBUTION WIDTH 15.4 % (11.5-14.5); WHITE BLOOD COUNT 10.9 K/uL (4.8-10.8)
[2017-10-27 09:00] LABS: ALKALINE PHOSPHATASE 55 U/L (38-126); ALT/SGPT 39 U/L (21-72); AST/SGOT 30 U/L (17-59); BILIRUBIN,TOTAL 0.3 mg/dL (0.2-1.3); BLOOD UREA NITROGEN 19 mg/dL (9-20); CALCIUM 8.5 mg/dl (8.6-10.4); CARBON DIOXIDE 37 mmol/L (22-30); CHLORIDE 93 mmol/L (98-107); GFR AFRICAN-AMERICAN > 60; GLUCOSE,RANDOM 88 mg/dL (75-110); MAGNESIUM 1.8 mg/dL (1.6-2.3); POTASSIUM 4.5 mmol/L (3.6-5.2); SODIUM 136 mmol/L (132-148); TOTAL PROTEIN 6.1 g/dL (6.3-8.3)
[2017-10-27 09:02] LABS: ALB/GLOB RATIO 1.5 (1.0-2.1)
[2017-10-27 09:12] LABS: NEUTROPHIL 87 % (50-75); TOTAL CELLS COUNTED 100
[2017-10-27] MEDS: Enoxaparin 40 mg Syringe SC SCH (10:07)
[2017-10-27] MEDS: Oxycodone/Acetaminophen 5/325 mg Tab PO PRN ×2 (12:12→18:11)
[2017-10-27] MEDS: Benzocaine/Menthol (Cepacol) Lozenge MT PRN ×2 (12:17→18:35)
[2017-10-27] MEDS: Fluticasone Nasal 50 mcg/Spray NAS PRN (12:18)
[2017-10-28] MEDS: MethylPREDNISolone 40 mg Vial IVP SCH ×4 (00:17→17:07)
[2017-10-28] MEDS: Oxycodone/Acetaminophen 5/325 mg Tab PO PRN ×4 (00:18→18:53)
[2017-10-28] MEDS: Albuterol-Ipratrop 3 mg / 0.5 (3 ml) UD INH SCH (04:30)
[2017-10-28] MEDS: Fluticasone Nasal 50 mcg/Spray NAS PRN (06:30)
[2017-10-28 06:41] LABS: BASO % 0.3 % (0.0-2.0); EOS % 0.1 % (0.0-4.0); HEMATOCRIT 39.8 % (35.0-51.0); LYMPH # 0.9 K/uL (1.0-4.3); LYMPH % 6.7 % (20.0-40.0); MEAN CELL VOLUME 96.5 fL (80.0-94.0); MEAN CORPUSCULAR HEMOGLOBIN 32.5 pg (27.0-31.0); MEAN CORPUSCULAR HGB CONC 33.7 g/dL (33.0-37.0); MEAN PLATELET VOLUME 8.9 fL (7.2-11.7); MONO # 0.7 K/uL (0.0-0.8); MONO % 5.9 % (0.0-10.0); PLATELET COUNT 255 K/uL (130-400); RED CELL DISTRIBUTION WIDTH 15.7 % (11.5-14.5); WHITE BLOOD COUNT 12.7 K/uL (4.8-10.8)
[2017-10-28 06:50] LABS: ALB/GLOB RATIO 1.1 (1.0-2.1); ALKALINE PHOSPHATASE 50 U/L (38-126); ALT/SGPT 42 U/L (21-72); AST/SGOT 25 U/L (17-59); BILIRUBIN,TOTAL 0.2 mg/dL (0.2-1.3); BLOOD UREA NITROGEN 22 mg/dL (9-20); CALCIUM 8.3 mg/dl (8.6-10.4); CARBON DIOXIDE 35 mmol/L (22-30); CHLORIDE 92 mmol/L (98-107); GFR AFRICAN-AMERICAN > 60; GLUCOSE,RANDOM 90 mg/dL (75-110); MAGNESIUM 1.9 mg/dL (1.6-2.3); POTASSIUM 4.5 mmol/L (3.6-5.2); SODIUM 134 mmol/L (132-148); TOTAL PROTEIN 6.9 g/dL (6.3-8.3)
[2017-10-28] MEDS: Tiotropium 18 mcg Cap For Inhalation INH SCH (07:13)
[2017-10-28 08:50] LABS: NEUTROPHIL 89 % (50-75); TOTAL CELLS COUNTED 100
--- NOTE | 2017-10-28 09:43 | CP.PCM.PN ---
Subjective - Date & Time of Evaluation Date of Evaluation: 10/28/17 Time of Evaluation: 09:43 - Subjective Subjective: PGY2 Note for Dr. Gonzalez; all management as per Dr. Gonzalez Patient seen and examined at bedside this AM; states that his sputum changed in color on Saturday from clear to yellow; will start azithromycin for 5 days today 500mg next 4 days 250mg. Denies fevers/chills, RED, CP, SOB, abdominal pain, N/V/ D, dysuria/freq/urg, or lower extremity pain/swelling. States his SOB is much improved and can walk himself to the bathroom and around without O2 or SOB/ dizziness. Objective - Vital Signs/Intake and Output Vital Signs (last 24 hours): Temp Pulse Resp BP Pulse Ox 98.1 F 71 20 164/88 H 98 10/28/17 08:06 10/28/17 08:06 10/28/17 08:06 10/28/17 08:06 10/28/17 08:06 Intake and Output: 10/28/17 10/28/17 06:59 18:59 Intake Total 480 Balance 480 - Medications Medications: Current Medications Acetaminophen (Tylenol 325mg Tab) 650 mg PO Q6 PRN PRN Reason: Pain, severe (8-10) Last Admin: 10/26/17 17:17 Dose: 650 mg Benzocaine/Menthol (Cepacol Sore Throat) 1 arya MT Q4H PRN PRN Reason: Sore Throat Last Admin: 10/27/17 18:35 Dose: 1 arya Enoxaparin Sodium (Lovenox) 40 mg SC DAILY [facility] Last Admin: 10/27/17 10:07 Dose: 40 mg Famotidine (Pepcid) 20 mg PO BID [facility] Last Admin: 10/27/17 18:11 Dose: 20 mg Fluticasone Propionate (Flonase) 2 spr NAILA Q6H PRN PRN Reason: nose discomfort Last Admin: 10/28/17 06:30 Dose: 1 spray Gabapentin (Neurontin) 100 mg PO TID [facility] Last Admin: 10/27/17 18:11 Dose: 100 mg Guaifenesin (Mucinex [place]) 600 mg PO BID [facility] Methylprednisolone (Solu-Medrol) 40 mg IVP Q6 [facility] Last Admin: 10/28/17 06:27 Dose: 40 mg Oxycodone/Acetaminophen (Percocet 5/325 Mg Tab) 1 tab PO Q6H PRN PRN Reason: Pain, moderate (4-7) Stop: 10/30/17 11:12 Last Admin: 10/28/17 06:26 Dose: 1 tab Sertraline HCl (Zoloft) 100 mg PO DAILY [facility] Last Admin: 10/27/17 10:07 Dose: 100 mg Tamsulosin HCl (Flomax) 0.4 mg PO DAILY [facility] Last Admin: 10/27/17 10:07 Dose: 0.4 mg Tiotropium [place] (Spiriva) 18 mcg INH RQ24 [facility] Last Admin: 10/28/17 07:13 Dose: 18 mcg - Labs Labs: 10/28/17 06:24 10/28/17 06:24 - Constitutional Appears: Well, Non-toxic - Head Exam Head Exam: ATRAUMATIC, NORMAL INSPECTION - Eye Exam Eye Exam: EOMI - ENT Exam ENT Exam: Mucous Membranes Moist - Neck Exam Neck Exam: Full ROM. absent: Lymphadenopathy - Respiratory Exam Respiratory Exam: Wheezes (mild wheezes), NORMAL BREATHING PATTERN. absent: Chest Wall Tenderness, Decreased Breath Sounds, Clear to Ausculation Bilateral, Rales, Rhonchi, Respiratory Distress, Stridor - Cardiovascular Exam Cardiovascular Exam: REGULAR RHYTHM, +S1, +S2 - GI/Abdominal Exam GI & Abdominal Exam: Soft, Normal Bowel Sounds - Extremities Exam Extremities Exam: absent: Calf Tenderness - Back Exam Back Exam: absent: CVA tenderness (L), CVA tenderness (R) - Neurological Exam Neurological Exam: Alert, Awake, Normal Gait, Oriented x3 - Skin Skin Exam: Warm Assessment and Plan - Assessment and Plan (Free Text) Assessment: COPD with acute exacerbation; acute on chronic; not on home O2 10/28: c/w IV steroids will switch to PO today; will give 500mg azithromycin as patient has color change in sputum; no fevers/chills; recommend quitting smoking E-cig 10/25: continue IV steroids, BIPAP if needed, duonebs, Spiriva. duoneb Q4h Solumedrol 40mg Q6H BIPAP is needed for support Patient advised again his need to quit smoking. Patient ruled out for PE, d/c tele for now. Continue Spiriva Status: Acute Tobacco abuse; E Cigarette Patient on nicodern patch, advised again his need to quit smoking. Major depressive disorder with current active episode continue his medication Zoloft for now. Patient denies any depression, suicidal ideation. Nocturia associated with benign prostatic hyperplasia Flomax Hypokalemia; resolved replaced his potassium, continue to replace as needed. Prophylactic measure Lovenox SCDs Pepcid 20mg bid. Cepachol cough drops and flonase. Dispo: likely d/c today with the additional medications that he did not have previously 1) mucinex BID 2) Azithromycin 250mg PO 4 more days after 500mg today 3) Prednisone 40mg PO daily 4) f/u with pulm/PMD within the week 5) Does not need home O2 at this time; will need to stop smoking e cig. patient already has patch. All management as per Dr. Gonzalez
[2017-10-28] MEDS: Enoxaparin 40 mg Syringe SC SCH (10:17)
[2017-10-28] MEDS: guaiFENesin 600 mg ER Tab PO SCH ×2 (10:17→17:07)
[2017-10-28] MEDS: Benzocaine/Menthol (Cepacol) Lozenge MT PRN ×2 (10:24→20:23)
[2017-10-29] MEDS: MethylPREDNISolone 40 mg Vial IVP SCH ×3 (00:07→12:00)
[2017-10-29] MEDS: Oxycodone/Acetaminophen 5/325 mg Tab PO PRN ×2 (00:46→06:45)
[2017-10-29 01:16] VITALS: TEMP 97.7; O2SAT 95
[2017-10-29] MEDS: Tiotropium 18 mcg Cap For Inhalation INH SCH (07:41)
[2017-10-29] MEDS: Albuterol-Ipratrop 3 mg / 0.5 (3 ml) UD INH SCH ×2 (07:41→13:12)
--- NOTE | 2017-10-29 07:51 | CP.PCM.PN ---
Subjective - Date & Time of Evaluation Date of Evaluation: 10/29/17 Time of Evaluation: 09:43 - Subjective Subjective: PGY2 Medicine Note for Dr. Gonzalez; All management as per Dr. Gonzalez Patient seen and examined at bedside this AM; denies any overnight events or acute complaints; states he wants to go home before noon because he is worried about the walk down the hill in the rain as it will "kill him"; advised him to call a cab either way if it is or isn't raining; denies any fevers/chills, RED, CP, SOB, abdominal pain, N/V/D dyusira/freq, or lower extremity pain Pt will get 250mg PO Azithromycin for 3 more days 40mg PO prednisone for 7 more days Mucinex ER as needed Flonase as needed f/u with pulmonology within the week and PMD will continue all of the home inhalers advised to stop smoking E-Cigarette Objective - Vital Signs/Intake and Output Vital Signs (last 24 hours): Temp Pulse Resp BP Pulse Ox 97.7 F 83 20 169/85 H 95 10/28/17 23:05 10/28/17 23:05 10/28/17 23:05 10/28/17 23:05 10/28/17 23:05 Intake and Output: 10/29/17 10/29/17 06:59 18:59 Intake Total 500 Balance 500 - Medications Medications: Current Medications Acetaminophen (Tylenol 325mg Tab) 650 mg PO Q6 PRN PRN Reason: Pain, severe (8-10) Last Admin: 10/26/17 17:17 Dose: 650 mg Albuterol/Ipratropium (Duoneb 3 Mg/0.5 Mg (3 Ml) Ud) 3 ml INH RQ6 [facility] Last Admin: 10/29/17 07:41 Dose: 3 ml Azithromycin (Zithromax) 250 mg PO DAILY [facility] Benzocaine/Menthol (Cepacol Sore Throat) 1 arya MT Q4H PRN PRN Reason: Sore Throat Last Admin: 10/28/17 20:23 Dose: 1 arya Enoxaparin Sodium (Lovenox) 40 mg SC DAILY [facility] Last Admin: 10/28/17 10:17 Dose: 40 mg Famotidine (Pepcid) 20 mg PO BID [facility] Last Admin: 10/28/17 17:07 Dose: 20 mg Fluticasone Propionate (Flonase) 2 spr NAILA Q6H PRN PRN Reason: nose discomfort Last Admin: 10/28/17 06:30 Dose: 1 spray Gabapentin (Neurontin) 100 mg PO TID [facility] Last Admin: 10/28/17 17:07 Dose: 100 mg Guaifenesin (Mucinex La) 600 mg PO BID [facility] Last Admin: 10/28/17 17:07 Dose: 600 mg Methylprednisolone (Solu-Medrol) 40 mg IVP Q6 [facility] Last Admin: 10/29/17 06:16 Dose: 40 mg Oxycodone/Acetaminophen (Percocet 5/325 Mg Tab) 1 tab PO Q6H PRN PRN Reason: Pain, moderate (4-7) Stop: 10/30/17 11:12 Last Admin: 10/29/17 06:45 Dose: 1 tab Sertraline HCl (Zoloft) 100 mg PO DAILY [facility] Last Admin: 10/28/17 10:22 Dose: 100 mg Tamsulosin HCl (Flomax) 0.4 mg PO DAILY [facility] Last Admin: 10/28/17 10:16 Dose: 0.4 mg Tiotropium [place] (Spiriva) 18 mcg INH RQ24 [facility] Last Admin: 10/29/17 07:41 Dose: 18 mcg - Labs Labs: 10/28/17 06:24 10/28/17 06:24 - Constitutional Appears: Non-toxic - Head Exam Head Exam: ATRAUMATIC - Eye Exam Eye Exam: EOMI - ENT Exam ENT Exam: Mucous Membranes Moist - Neck Exam Neck Exam: Full ROM - Respiratory Exam Respiratory Exam: Clear to Ausculation Bilateral, Wheezes (mild mild mild wheezes). absent: Rales, Rhonchi - Cardiovascular Exam Cardiovascular Exam: REGULAR RHYTHM, +S1, +S2 - GI/Abdominal Exam GI & Abdominal Exam: Soft, Normal Bowel Sounds - Extremities Exam Extremities Exam: Full ROM. absent: Calf Tenderness - Back Exam Back Exam: NORMAL INSPECTION. absent: CVA tenderness (L), CVA tenderness (R) - Neurological Exam Neurological Exam: Alert, Awake, CN II-XII Intact, Normal Gait, Oriented x3 - Psychiatric Exam Psychiatric exam: Normal Affect, Normal Mood - Skin Skin Exam: Warm Assessment and Plan - Assessment and Plan (Free Text) Assessment: COPD with acute exacerbation; acute on chronic; not on home O2; resolving 10/29: will give 40mg PO Prednisone for 5 more days; 250mg Azithromycin for 4 more days (including today); c/w all other home meds; no home O2 10/28: c/w IV steroids will switch to PO today; will give 500mg azithromycin as patient has color change in sputum; no fevers/chills; recommend quitting smoking E-cig 10/25: continue IV steroids, BIPAP if needed, duonebs, Spiriva. duoneb Q4h Solumedrol 40mg Q6H BIPAP is needed for support Patient advised again his need to quit smoking. Patient ruled out for PE, d/c tele for now. Continue Spiriva Tobacco abuse; E Cigarette Patient on nicodern patch, advised again his need to quit smoking. Major depressive disorder with current active episode continue his medication Zoloft for now. Patient denies any depression, suicidal ideation. Nocturia associated with benign prostatic hyperplasia Flomax Hypokalemia; resolved replaced his potassium, continue to replace as needed. Prophylactic measure Lovenox SCDs Pepcid 20mg bid. Cepachol cough drops and flonase. Dispo: likely d/c today with the additional medications that he did not have previously 1) mucinex BID 2) Azithromycin 250mg PO 4 more days 3) Prednisone 40mg PO daily 4) f/u with pulm/PMD within the week 5) Does not need home O2 at this time; will need to stop smoking e cig. patient already has patch. All management as per Dr. Gonzalez COPD - CM - COPD Progress Note Spirometry Assessment Completed:: No FEV1/FVC<70: Yes Plan to assess at outpatient follow up: Yes (Dr. oGnzalez ) Symptoms:: Increase in Dyspnea Initial CXR:: clear ABG Not Indicated (Symptoms Improved): Yes Nebulizers Q2-4 hrs:: Duonebs/Albuterol Therapy Antibiotics (Name/Dose/Frequency):: Azithromycin 250mg PO daily 3 days s/p d/c Antibiotics Not Indicated: No Systemic Steroids w/ methylprednisolone Name/Dose/Frequency:: Prednisone 40mg PO daily for 7 days Oxygen Delivery Method: Room Air Smoking cessation counseling all stages copd exacerbation: Yes
[2017-10-29 08:47] VITALS: BP 155/82; PULSE 74
[2017-10-29] MEDS: guaiFENesin 600 mg ER Tab PO SCH (09:50)
[2017-10-29] MEDS: Benzocaine/Menthol (Cepacol) Lozenge MT PRN (09:51)
[2017-10-29] MEDS: Enoxaparin 40 mg Syringe SC SCH (09:51)
[2017-10-29] MEDS: Fluticasone Nasal 50 mcg/Spray NAS PRN (11:22)
--- NOTE | 2017-11-06 07:14 | DS ---
The patient came to the hospital with complaint of generalized weakness, fatigue, and tiredness. The patient was placed on bedrest, supportive care. The patient showed improvement. Discharged, to be followed as an outpatient. Dino Gonzalez MD
== END 2017-10-29 13:53 | disposition home or self-care (01) | DRG 88 ==
LOC: C.ER 19:00 → C.9E 10-23 02:20 → C.6T 10-23 04:42
PROVIDERS: ADMIT Internal Medicine Pulmonary Disease; ATTEND Internal Medicine Pulmonary Disease
DX: J44.1 Chronic obstructive pulmonary disease with (acute) exacerbation (principal); E87.6 Hypokalemia; J98.01 Acute bronchospasm; F17.210 Nicotine dependence, cigarettes, uncomplicated; F32.9 Major depressive disorder, single episode, unspecified; I10 Essential (primary) hypertension; N40.1 Benign prostatic hyperplasia with lower urinary tract symptoms; Z87.11 Personal history of peptic ulcer disease; F10.11 Alcohol abuse, in remission; F41.9 Anxiety disorder, unspecified; R35.1 Nocturia

== ENCOUNTER 2017-11-16 19:20 | Inpatient (IN) | payer MEDICAID ==
[2017-11-16 19:20] VITALS: BMI 18.8
[2017-11-16] MEDS ORDERED: Albuterol-Ipratrop 3 mg / 0.5 (3 ml) UD ONE (19:27)
--- NOTE | 2017-11-16 19:37 | C.PDOC ---
History Of Present Illness 57 year old male with PMHx of asthma and chronic lung disease presents to the ED for evaluation of worsening SOB that has been going on all day patient reports symptoms are similar to previous COPD exacerbation, also states he is a smoker. Patient also reports having productive cough that is worse in the mornings and states his SOB gets worse with minimal exertion. Patient denies CP , fever, chills, nausea, vomit, abdominal pain, back pain. Time Seen by Provider: 11/16/17 19:25 Chief Complaint (Nursing): Respiratory Distress History Per: Patient History/Exam Limitations: no limitations Onset/Duration Of Symptoms: Hrs Current Symptoms Are (Timing): Still Present Exacerbating Factor(s): Exertion, Coughing Severity: None Associated Symptoms: Productive Cough Recent travel outside of the [place]: No Additional History Per: Patient Past Medical History Reviewed: Historical Data, Nursing Documentation, Vital Signs Vital Signs: Last Vital Signs Temp 97.8 F 11/16/17 19:30 Pulse 102 H 11/16/17 21:18 Resp 24 11/16/17 21:18 BP 106/65 11/16/17 21:18 Pulse Ox 97 11/16/17 21:18 - Medical History PMH: Anxiety, Asthma, Bronchitis, COPD, Depression, Gastrointestinal Ulcer, HTN , Pneumonia Denies: Diabetes, HIV, Chronic Kidney Disease, Seizures, Sexually Transmitted Disease Surgical History: Appendectomy, Tonsillectomy - [facility] CONTR ABD ARTERIOGRM NEC (05/20/07) DETOXIFICATION SERVICES FOR SUBSTANCE ABUSE TREATMENT (05/21/17) ESOPHAGOGASTRODUODENOSCOPY [EGD] W/CLOSED BIOPSY (05/20/07) EXCISION OF LOWER ESOPHAGUS, ENDO, DIAGN (05/21/17) EXTIRPATION OF MATTER FROM LOWER ESOPHAGUS, ENDO (05/21/17) GROUP FOSTER PARENT FOR SUBSTANCE ABUSE TREATMENT, PSYCHOEDUCATION (01/14/17) GROUP FOSTER PARENT FOR SUBSTANCE ABUSE, COGNITIVE BEHAVIORAL (01/14/17) GROUP PSYCHOTHERAPY (04/22/17) INDIV FOSTER PARENT FOR SUBSTANCE ABUSE TREATMENT, PSYCHOEDUCATION (01/14/17) INDIV FOSTER PARENT FOR SUBSTANCE ABUSE, COGNITIVE BEHAVIORAL (01/14/17) INDIV PSYCHOTHERAPY FOR SUBSTANCE ABUSE TREATMENT, SUPPORT (05/21/17) INDIV PSYCHOTHERAPY FOR SUBSTANCE ABUSE, COGNITIV BEHAVIORAL (05/21/17) INDIV PSYCHOTHERAPY FOR SUBSTANCE ABUSE, PSYCHOEDUCATION (05/21/17) INDIVIDUAL PSYCHOTHERAPY, COGNITIVE-BEHAVIORAL (05/21/17) INDIVIDUAL PSYCHOTHERAPY, SUPPORTIVE (05/21/17) INJECT/INFUSE NEC (03/20/12) MEDICATION MANAGEMENT (03/12/17) MEDS MGMT FOR SUBSTANCE ABUSE TREATMENT, OTH REPL MED (03/12/17) Family History: States: Unknown Family Hx - Social History Hx Tobacco Use: Yes Hx Alcohol Use: Yes Hx Substance Use: Yes (heroin) - Immunization History Hx Tetanus Toxoid Vaccination: Yes Hx Influenza Vaccination: Yes (01/2016) Hx Pneumococcal Vaccination: Yes (2015) Review Of Systems Constitutional: Negative for: Fever, Chills Cardiovascular: Negative for: Chest Pain, Palpitations Respiratory: Positive for: Cough, Shortness of Breath, Wheezing, Other (PIPER) Gastrointestinal: Negative for: Nausea, Vomiting, Abdominal Pain Skin: Negative for: Rash Neurological: Negative for: Weakness, Numbness, Dizziness Physical Exam - Physical Exam Appears: Non-toxic, Other (Speakin in short sentences) Skin: Normal Color, Warm, Dry Head: Atraumatic, Normacephalic Nose: No Discharge, No Deformity Oral Mucosa: Moist Neck: Normal ROM, Supple Chest: Symmetrical Cardiovascular: Rhythm Regular, No Murmur Respiratory: Decreased Breath Sounds (throughout all lung correia), Accessory Muscle Use (Moderate), No Rales, No Rhonchi, Wheezing (diffuse expiratory) Gastrointestinal/Abdominal: Soft, No Tenderness Extremity: Normal ROM, No Pedal Edema, No Calf Tenderness, No Deformity, No Swelling Neurological/Psych: Oriented x3, Normal Speech (short sentences), Normal Cognition Gait: Steady ED Course And Treatment - Laboratory Results Result Diagrams: 11/16/17 19:48 11/16/17 19:48 Medical Decision Making Medical Decision Making: Impression : worsening SOB, productive cough Plan: * ABG * EKG * CXR * Duoneb 3 ml INH * Solumedrol 125 mg IVP * O2 via simple mask Disposition - Disposition Disposition: HOSPITALIZED Disposition Time: 21:30 Condition: IMPROVED Forms: [facility] (Ukrainian) - Clinical Impression Clinical Impression: COPD exacerbation, Exacerbation of asthma, Chronic obstructive lung disease - Scribe Statement The provider has reviewed the documentation as recorded by the Scribe Jose J Ceballos All medical record entries made by the Scribe were at my direction and personally dictated by me. I have reviewed the chart and agree that the record accurately reflects my personal performance of the history, physical exam, medical decision making, and the department course for this patient. I have also personally directed, reviewed, and agree with the discharge instructions and disposition.
[2017-11-16] MEDS ORDERED: Albuterol 0.083% Inhal Sol (2.5 mg/3 mL) UD INH STA ×2 (19:41→20:44)
[2017-11-16] MEDS ORDERED: Albuterol-Ipratrop 3 mg / 0.5 (3 ml) UD INH STA (19:41)
[2017-11-16 19:58] LABS: BASO % 0.3 % (0.0-2.0); EOS % 0.2 % (0.0-4.0); HEMOGLOBIN 14.1 g/dL (12.0-18.0); LYMPH % 9.6 % (20.0-40.0); MEAN CELL VOLUME 95.9 fL (80.0-94.0); MEAN CORPUSCULAR HEMOGLOBIN 33.2 pg (27.0-31.0); MEAN CORPUSCULAR HGB CONC 34.6 g/dL (33.0-37.0); MEAN PLATELET VOLUME 8.2 fL (7.2-11.7); MONO # 0.5 K/uL (0.0-0.8); MONO % 5.4 % (0.0-10.0); NEUT # 8.5 K/uL (1.8-7.0); NEUT % 84.5 % (50.0-75.0); NRBC % 0.1 % (0.0-2.0); PLATELET COUNT 204 K/uL (130-400); RBC 4.25 Mil/uL (4.40-5.90); RED CELL DISTRIBUTION WIDTH 15.6 % (11.5-14.5)
[2017-11-16 20:10] LABS: ALB/GLOB RATIO 1.3 (1.0-2.1); ALBUMIN 3.7 g/dL (3.5-5.0); ALT/SGPT 19 U/L (21-72); AST/SGOT 23 U/L (17-59); BLOOD UREA NITROGEN 9 mg/dL (9-20); CALCIUM 7.9 mg/dl (8.6-10.4); GFR AFRICAN-AMERICAN > 60; GFR NON-AFRICAN AMERICAN > 60
[2017-11-16 20:13] LABS: ARTERIAL BLOOD GAS HCO3 25.4 mmol/L (21-28); ARTERIAL BLOOD GAS HEMOGLOBIN 12.1 g/dL (11.7-17.4); ARTERIAL BLOOD GAS O2 SAT 99.4 % (95-98); ARTERIAL BLOOD GAS PCO2 43 mm/Hg (35-45); ARTERIAL BLOOD GAS PH 7.39 (7.35-7.45); ARTERIAL BLOOD GAS PO2 124 mm/Hg (80-100); ARTERIAL BLOOD GAS TCO2 27.3 mmol/L (22-28)
[2017-11-16] MEDS ORDERED: Albuterol 0.083% Inhal Sol (2.5 mg/3 mL) UD ONE (21:03)
[2017-11-16 21:18] LABS: ANISOCYTOSIS SLIGHT; LYMPHOCYTE 10 % (20-40); MONOCYTE 4 % (0-10); NEUTROPHIL 78 % (50-75); PLATELET ESTIMATE NORMAL (NORMAL); REACTIVE LYMPHOCYTES 8 % (0-0); TOTAL CELLS COUNTED 100
[2017-11-17] MEDS ORDERED: Promethazine DM 12.5 mg-30 mg/10 ml Syrup PO PRN (01:05)
[2017-11-17] MEDS ORDERED: guaiFENesin 600 mg ER Tab PO PRN (01:05)
[2017-11-17] MEDS ORDERED: Albuterol-Ipratrop 3 mg / 0.5 (3 ml) UD INH SCH (02:00)
[2017-11-17] MEDS: MethylPREDNISolone 40 mg Vial IVP SCH ×3 (05:24→21:44)
[2017-11-17] MEDS ORDERED: Potassium Chloride 20 mEq ER Tab PO ONE (05:40)
--- NOTE | 2017-11-17 08:59 | RAD ---
PROCEDURE: CHEST RADIOGRAPH, 1 VIEW HISTORY: Pneumonia COMPARISON: 10/22/2017. FINDINGS: LUNGS: The lungs are hyperinflated and there is peribronchial thickening with chronic changes in both lungs. No lobar pneumonia. PLEURA: No pneumothorax or pleural fluid seen. CARDIOVASCULAR: Normal. OSSEOUS STRUCTURES: No significant abnormalities. VISUALIZED UPPER ABDOMEN: Normal. OTHER FINDINGS: None. IMPRESSION: No active pulmonary disease. COPD.
[2017-11-17] MEDS: Enoxaparin 30 mg Syringe SC SCH (09:12)
[2017-11-17] MEDS: Fluticasone Nasal 50 mcg/Spray NAS SCH (09:19)
[2017-11-17] MEDS ORDERED: [UNRECOGNIZED DRUG - REMARK] NS SCH (10:00)
--- NOTE | 2017-11-17 10:28 | CP.PCM.HP ---
History of Present Illness - History of Present Illness History of Present Illness: PT ADMITED LAST NIGHT FROM ED FOR RESPIRATORY DISCOMORT COUGH HYPOXEAMIA MHUSCL DISCOMFRT FRON USING CHEST MUSCLES TO BREATH FOR ASTHMA EXACERBATION Present on Admission - Present on Admission Any Indicators Present on Admission: No Review of Systems - Review of Systems Systems not reviewed;Unavailable: Acuity of Condition - Constitutional Constitutional: Fatigue, Weakness - EENT Eyes: As Per HPI Ears: As Per HPI Nose/Mouth/Throat: As Per HPI - Cardiovascular Cardiovascular: Dyspnea, Dyspnea on Exertion, Palpitations - Respiratory Respiratory: Cough, Dyspnea, Dyspnea on Exertion, Wheezing, Chest Congestion - Gastrointestinal Gastrointestinal: Diarrhea - Genitourinary Genitourinary: Voiding Freq/Small Amts - Reproductive: Male Reproductive:Male: As Per HPI - Musculoskeletal Musculoskeletal: Back Pain, Myalgias - Integumentary Integumentary: As Per HPI - Neurological Additional comments: TREMORS HANDS - Psychiatric Psychiatric: Anxiety, Depression - Endocrine Endocrine: As Per HPI - Hematologic/Lymphatic Hematologic: As Per HPI Past Patient History - Infectious Disease Hx of Infectious Diseases: None - Past Medical History & Family History Past Medical History?: Yes - Past Social History Smoking Status: Heavy Smoker > 10 Cigarettes Daily - CARDIAC Hx Cardiac Disorders: Yes Hx Hypertension: Yes - PULMONARY Hx Respiratory Disorders: Yes Hx Asthma: Yes Hx Bronchitis: Yes Hx Chronic Obstructive Pulmonary Disease (COPD): Yes Hx Pneumonia: Yes - NEUROLOGICAL Hx Seizures: No - HEENT Hx HEENT Problems: No - RENAL Hx Chronic Kidney Disease: No - ENDOCRINE/METABOLIC Hx Endocrine Disorders: No - HEMATOLOGICAL/ONCOLOGICAL Hx Blood Disorders: No Hx Human Immunodeficiency Virus (HIV): No - INTEGUMENTARY Hx Dermatological Problems: No - MUSCULOSKELETAL/RHEUMATOLOGICAL Hx Falls: Yes - GASTROINTESTINAL Hx Gastrointestinal Disorders: Yes Hx Gastroesophageal Reflux: Yes Hx Ulcer: Yes - GENITOURINARY/GYNECOLOGICAL Hx Genitourinary Disorders: Yes Hx Sexually Transmitted Disorders: No Other/Comment: bph - PSYCHIATRIC Hx Substance Use: Yes - SURGICAL HISTORY Hx Surgeries: Yes Hx Appendectomy: Yes Hx Tonsillectomy: Yes - ANESTHESIA Hx Anesthesia: Yes Hx Anesthesia Reactions: No Hx Malignant Hyperthermia: No Has any member of the family had a problem w/ anesthesia?: No Meds Allergies/Adverse Reactions: Allergies Allergy/AdvReac Type Severity Reaction Status Date / Time No Known Allergies Allergy Verified 11/16/17 19:35 Physical Exam - Constitutional Appears: In Acute Distress - Head Exam Head Exam: ATRAUMATIC - Eye Exam Eye Exam: Normal appearance Pupil Exam: NORMAL ACCOMODATION - ENT Exam ENT Exam: Mucous Membranes Dry - Neck Exam Neck exam: Positive for: Full Rom - Respiratory Exam Respiratory Exam: Prolonged Expiratory Phase, Rales, Wheezes, Respiratory Distress - Cardiovascular Exam Cardiovascular Exam: REGULAR RHYTHM - GI/Abdominal Exam GI & Abdominal Exam: Normal Bowel Sounds - Rectal Exam Rectal Exam: NORMAL INSPECTION - Exam Exam: NORMAL INSPECTION - Extremities Exam Extremities exam: Positive for: normal inspection - Back Exam Back exam: muscle spasm - Neurological Exam Neurological exam: Oriented x3 Additional comments: TREMULOS HANDS - Psychiatric Exam Psychiatric exam: Anxious, Depressed - Skin Skin Exam: Pallor Results - Vital Signs Recent Vital Signs: Last Vital Signs Temp 98 F 11/17/17 00:21 Pulse 104 H 11/17/17 00:21 Resp 20 11/17/17 01:36 BP 130/70 11/17/17 00:21 Pulse Ox 100 11/17/17 01:36 - Labs Result Diagrams: 11/16/17 19:48 11/16/17 19:48 Labs: Laboratory Results - last 24 hr 11/16/17 11/16/17 11/16/17 19:48 19:48 20:10 WBC 10.0 RBC 4.25 L Hgb 14.1 Hct 40.8 MCV 95.9 H MCH 33.2 H MCHC 34.6 RDW 15.6 H Plt Count 204 MPV 8.2 Neut % (Auto) 84.5 H Lymph % (Auto) 9.6 L Burnet % (Auto) 5.4 Eos % (Auto) 0.2 Baso % (Auto) 0.3 Neut # 8.5 H Lymph # 1.0 Burnet # 0.5 Eos # 0.0 Baso # 0.0 Neutrophils % (Manual) 78 H Lymphocytes % (Manual) 10 L Reactive Lymphs % 8 H Monocytes % (Manual) 4 Platelet Estimate Normal Anisocytosis (manual) Slight Puncture Site Rba pCO2 43 pO2 124 H HCO3 25.4 ABG pH 7.39 ABG Total CO2 27.3 ABG O2 Saturation 99.4 H ABG Base Excess 0.8 ABG Hemoglobin 12.1 ABG Carboxyhemoglobin 6.2 H POC ABG HHb (Measured) 0.6 ABG Methemoglobin 1.4 Peter Test Na A-a O2 Difference 72.0 Respiratory Index 0.6 Hgb O2 Saturation 91.8 L FiO2 35.0 Sodium 132 Potassium 3.2 L Chloride 94 L Carbon Dioxide 30 Anion Gap 11 BUN 9 Creatinine 0.7 L Est GFR ( Amer) > 60 Est GFR (Non-Af Amer) > 60 Random Glucose 94 Calcium 7.9 L Total Bilirubin 0.4 AST 23 ALT 19 L D Alkaline Phosphatase 70 Total Protein 6.6 Albumin 3.7 Globulin 2.9 Albumin/Globulin Ratio 1.3 Assessment & Plan - Assessment and Plan (Free Text) Assessment: AC EXACERBATION OF COPD HYPOXEAMIA TREMORD MUSCLE SPASM Plan: PER ORDERS AMITED AND CONSULTATION - Date & Time Date: 11/17/17 Time: 10:40
[2017-11-17] MEDS: guaiFENesin DM 100 mg-10 mg/5 ml UD PO PRN ×3 (12:23→21:52)
[2017-11-17] MEDS: Ipratropium 0.02% Inhal Soln (0.5 mg/2.5 ml) UD IH SCH ×3 (12:34→20:31)
[2017-11-17] MEDS: FLUTICASONE FUROATE INH SCH (21:46)
[2017-11-17] MEDS: VILANTEROL INH SCH (21:46)
[2017-11-18] MEDS: Ipratropium 0.02% Inhal Soln (0.5 mg/2.5 ml) UD IH SCH ×5 (00:56→19:44)
[2017-11-18] MEDS: guaiFENesin DM 100 mg-10 mg/5 ml UD PO PRN ×3 (02:36→13:20)
[2017-11-18] MEDS: MethylPREDNISolone 40 mg Vial IVP SCH ×3 (05:42→22:39)
[2017-11-18] MEDS: INCRUSE ELLIPTA INH SCH (08:00)
[2017-11-18] MEDS: Enoxaparin 30 mg Syringe SC SCH (09:34)
[2017-11-18] MEDS: Fluticasone Nasal 50 mcg/Spray NAS SCH (09:34)
--- NOTE | 2017-11-18 10:38 | CP.PCM.PN ---
Subjective - Date & Time of Evaluation Date of Evaluation: 11/18/17 Time of Evaluation: 10:35 - Subjective Subjective: stillcoughing a lot sob back muscles hts a lot has diarhea Objective - Vital Signs/Intake and Output Vital Signs (last 24 hours): Temp Pulse Resp BP Pulse Ox 97.5 F L 92 H 20 174/92 H 95 11/18/17 08:50 11/18/17 08:50 11/18/17 08:50 11/18/17 08:50 11/18/17 08:50 Intake and Output: 11/18/17 11/18/17 06:59 18:59 Intake Total 450 300 Balance 450 300 - Medications Medications: Current Medications Acetaminophen (Tylenol 325mg Tab) 650 mg PO Q6 PRN PRN Reason: Pain, Mild (1-3) Last Admin: 11/18/17 09:38 Dose: 650 mg Baclofen (Lioresal) 10 mg PO BID PRN PRN Reason: Muscle spasm Last Admin: 11/18/17 05:35 Dose: 10 mg Enoxaparin Sodium (Lovenox) 30 mg SC DAILY [facility] [place] Last Admin: 11/18/17 09:34 Dose: 30 mg Fluticasone Propionate (Flonase) 2 spr NAILA DAILY [facility] [place] Last Admin: 11/18/17 09:34 Dose: 2 spr Gabapentin (Neurontin) 300 mg PO [facility] Last Admin: 11/17/17 21:44 Dose: 300 mg Guaifenesin/Dextromethorphan (Robitussin Dm) 5 ml PO Q4H PRN PRN Reason: Cough Last Admin: 11/18/17 09:34 Dose: 5 ml Home Med (Patient's Own Inhaler) 1 puff INH RQD [facility] [place] Last Admin: 11/18/17 08:00 Dose: 1 puff Home Med (Patient's Own Inhaler) 1 puff INH HS [facility] [place] Last Admin: 11/17/17 21:46 Dose: 1 puff Ipratropium [place]stic (Atrovent) 0.5 mg IH RQ6 [facility] Last Admin: 11/18/17 08:00 Dose: 0.5 mg Methylprednisolone (Solu-Medrol) 40 mg IVP Q8 [facility] Last Admin: 11/18/17 05:42 Dose: 40 mg Montelukast Sodium (Singulair) 10 mg PO HS [facility] [place] Last Admin: 11/17/17 21:44 Dose: 10 mg Sertraline HCl (Zoloft) 100 mg PO DAILY [facility] Last Admin: 11/18/17 09:35 Dose: 100 mg Tamsulosin HCl (Flomax) 0.4 mg PO DAILY [facility] Last Admin: 11/18/17 09:34 Dose: 0.4 mg - Labs Labs: 11/16/17 19:48 11/16/17 19:48 - Constitutional Appears: In Acute Distress - Head Exam Head Exam: NORMAL INSPECTION - Eye Exam Eye Exam: Normal appearance Pupil Exam: NORMAL ACCOMODATION - ENT Exam ENT Exam: Mucous Membranes Dry - Neck Exam Neck Exam: Full ROM - Respiratory Exam Respiratory Exam: Prolonged Expiratory Phase, Wheezes, Respiratory Distress - Cardiovascular Exam Cardiovascular Exam: REGULAR RHYTHM - GI/Abdominal Exam GI & Abdominal Exam: Soft, Normal Bowel Sounds - Rectal Exam Rectal Exam: NORMAL INSPECTION - Exam Exam: NORMAL INSPECTION - Extremities Exam Extremities Exam: Normal Inspection - Back Exam Back Exam: CVA tenderness (L) - Neurological Exam Neurological Exam: Normal Gait, Oriented x3 - Psychiatric Exam Psychiatric exam: Normal Affect - Skin Skin Exam: Pallor Assessment and Plan - Assessment and Plan (Free Text) Assessment: ac exacerbation copd ac diarhea back pain Plan: as per orders
[2017-11-18] MEDS: VILANTEROL INH SCH (21:36)
[2017-11-18] MEDS: FLUTICASONE FUROATE INH SCH (21:36)
[2017-11-18 23:54] VITALS: RESP 20
[2017-11-19] MEDS: Ipratropium 0.02% Inhal Soln (0.5 mg/2.5 ml) UD IH SCH ×4 (01:07→19:49)
[2017-11-19] MEDS: MethylPREDNISolone 40 mg Vial IVP SCH (05:09)
[2017-11-19] MEDS: guaiFENesin DM 100 mg-10 mg/5 ml UD PO PRN ×4 (05:10→17:34)
--- NOTE | 2017-11-19 07:59 | CON ---
DATE: 11/16/2017 HISTORY OF PRESENT ILLNESS: Mr. Rodriguez is admitted to the hospital with chief complaint of shortness of breath, cough, and weakness, the patient has been heavy smoker, history of COPD, also at this time, patient is advised about stop smoking. PHYSICAL EXAMINATION: GENERAL: The patient is awake, alert, oriented. VITAL SIGNS: Temperature 98, pulse 90. HEENT: Within normal limits. NECK: Supple. CHEST: Symmetrical. HEART: Regular. ABDOMEN: Soft. EXTREMITIES: No edema. ASSESSMENT: The patient suffers from chronic obstructive pulmonary disease and bronchitis. Patient needs bedrest, bronchodilators. Dino Gonzalez MD
[2017-11-19] MEDS: Fluticasone Nasal 50 mcg/Spray NAS SCH (09:18)
[2017-11-19] MEDS: INCRUSE ELLIPTA INH SCH (09:18)
[2017-11-19] MEDS: Enoxaparin 30 mg Syringe SC SCH (09:19)
--- NOTE | 2017-11-19 11:03 | CP.PCM.PN ---
Subjective - Date & Time of Evaluation Date of Evaluation: 11/19/17 Time of Evaluation: 11:00 - Subjective Subjective: still coughing a lot at night wheesinng sob back pain Objective - Vital Signs/Intake and Output Vital Signs (last 24 hours): Temp Pulse Resp BP Pulse Ox 98.2 F 94 H 20 157/83 H 95 11/19/17 08:00 11/19/17 08:00 11/19/17 08:00 11/19/17 08:00 11/19/17 08:00 Intake and Output: 11/19/17 11/19/17 06:59 18:59 Intake Total 480 Balance 480 - Medications Medications: Current Medications Acetaminophen (Tylenol 325mg Tab) 650 mg PO Q6 PRN PRN Reason: Pain, Mild (1-3) Last Admin: 11/19/17 05:08 Dose: 650 mg Acetylcysteine (Acetylcysteine 20%) 4 ml INH Q6H [facility] Baclofen (Lioresal) 10 mg PO BID PRN PRN Reason: Muscle spasm Last Admin: 11/19/17 05:12 Dose: 10 mg Enoxaparin Sodium (Lovenox) 30 mg SC DAILY [facility] Last Admin: 11/19/17 09:19 Dose: 30 mg Fluticasone Propionate (Flonase) 2 spr NAILA DAILY [facility] Last Admin: 11/19/17 09:18 Dose: 2 spr Gabapentin (Neurontin) 300 mg PO HS [facility] Last Admin: 11/18/17 21:35 Dose: 300 mg Guaifenesin/Dextromethorphan (Robitussin Dm) 5 ml PO Q4H PRN PRN Reason: Cough Last Admin: 11/19/17 09:19 Dose: 5 ml Home Med (Patient's Own Inhaler) 1 puff INH RQD [facility] Last Admin: 11/19/17 09:18 Dose: 1 puff Home Med (Patient's Own Inhaler) 1 puff INH HS [facility] Last Admin: 11/18/17 21:36 Dose: 1 puff Ipratropium Lily (Atrovent) 0.5 mg IH RQ6 [facility] Last Admin: 11/19/17 08:12 Dose: 0.5 mg Loperamide HCl (Imodium) 2 mg PO QID PRN PRN Reason: Diarrhea Last Admin: 11/19/17 09:19 Dose: 2 mg Montelukast Sodium (Singulair) [address] [facility] Last Admin: 11/18/17 21:34 Dose: 10 mg Oxycodone/Acetaminophen (Percocet 5/325 Mg Tab) [address] [facility] Stop: 11/22/17 22:01 Prednisone (Prednisone Tab) 20 mg PO BID [facility] Sertraline HCl (Zoloft) 100 mg PO DAILY [facility] Last Admin: 11/19/17 09:20 Dose: 100 mg Tamsulosin HCl (Flomax) 0.4 mg PO DAILY [facility] Last Admin: 11/19/17 09:19 Dose: 0.4 mg - Labs Labs: 11/16/17 19:48 11/16/17 19:48 - Constitutional Appears: Non-toxic - Head Exam Head Exam: NORMAL INSPECTION - Eye Exam Eye Exam: Normal appearance Pupil Exam: NORMAL ACCOMODATION - ENT Exam ENT Exam: Normal Exam - Neck Exam Neck Exam: Full ROM - Respiratory Exam Respiratory Exam: Decreased Breath Sounds, Prolonged Expiratory Phase, Wheezes, Respiratory Distress - Cardiovascular Exam Cardiovascular Exam: REGULAR RHYTHM - GI/Abdominal Exam GI & Abdominal Exam: Normal Bowel Sounds - Rectal Exam Rectal Exam: NORMAL INSPECTION - Exam Exam: NORMAL INSPECTION - Back Exam Back Exam: CVA tenderness (L) - Neurological Exam Neurological Exam: Normal Gait, Oriented x3 - Psychiatric Exam Psychiatric exam: Normal Mood - Skin Skin Exam: Pallor Assessment and Plan - Assessment and Plan (Free Text) Assessment: severe copd improving muscle pain change of bowel habits Plan: as per orders
[2017-11-19 11:26] LABS: HEMOGLOBIN 13.6 g/dL (12.0-18.0); LYMPH # 0.5 K/uL (1.0-4.3); LYMPH % 3.3 % (20.0-40.0); MEAN CELL VOLUME 96.2 fL (80.0-94.0); MEAN CORPUSCULAR HEMOGLOBIN 32.6 pg (27.0-31.0); MEAN CORPUSCULAR HGB CONC 33.9 g/dL (33.0-37.0); MEAN PLATELET VOLUME 8.7 fL (7.2-11.7); MONO # 0.4 K/uL (0.0-0.8); MONO % 3.1 % (0.0-10.0); NEUT # 13.1 K/uL (1.8-7.0); NEUT % 93.6 % (50.0-75.0); PLATELET COUNT 210 K/uL (130-400); RBC 4.15 Mil/uL (4.40-5.90); RED CELL DISTRIBUTION WIDTH 15.5 % (11.5-14.5)
[2017-11-19 11:47] LABS: BLOOD UREA NITROGEN 13 mg/dL (9-20); CALCIUM 7.9 mg/dl (8.6-10.4); GFR AFRICAN-AMERICAN > 60; GFR NON-AFRICAN AMERICAN > 60
[2017-11-19 11:48] LABS: BANDS 3 % (0-2); LYMPHOCYTE 4 % (20-40); NEUTROPHIL 92 % (50-75); PLATELET ESTIMATE NORMAL (NORMAL); REACTIVE LYMPHOCYTES 1 % (0-0); TOTAL CELLS COUNTED 100
--- NOTE | 2017-11-19 12:13 | CARD ---
APPROVED REPORT EKG Measurement Heart [id number] <Conclusion> Normal sinus rhythm Junctional ST depression, probably normal Borderline ECG
[2017-11-19] MEDS ORDERED: Iohexol 240 (50 ml) PO ONE (13:00)
[2017-11-19] MEDS: Acetylcysteine 20% Inhal Soln (4ml) INH SCH ×2 (13:26→19:50)
--- NOTE | 2017-11-19 17:20 | CT ---
CT abdomen and pelvis without IV contrast Indication: Change bowel habits Technique: Contiguous axial images of the abdomen and pelvis. Oral contrast was administered. No IV contrast given. Coronal and Sagittal reformats generated and reviewed. This CT exam was performed using 1 or more of the following dose reduction techniques: Automated exposure control, adjustment of the MAA and/or kV according to patient size, and/or use of iterative reconstruction technique. Radiation dose: Total exam DLP = 227.96 mGy-cm. Comparison: None available Findings: No visible pleural effusion or pneumothorax. Nonspecific ill-defined opacities within the right lower lobe and tiny scattered nodular densities at the bilateral lung bases of unclear significance ; infectious or inflammatory etiologies are favored. Correlate clinically and follow-up as indicated. Examination markedly limited by paucity of intra-abdominal and intrapelvic fat. Lack of IV contrast limits evaluation of the solid organs. Marked dense atherosclerotic calcifications of the aorta and branches. The noncontrast liver, spleen, kidneys, pancreas, adrenal glands, and gallbladder appear grossly unremarkable. Postsurgical gastric changes with evidence of gastric anastomosis to the small bowel. The bowel loops appear within normal limits of caliber without evidence of intestinal obstruction. Moderate constipation. There is no definite free air. The appendix is not identified. No secondary signs of acute appendicitis identified. Evidence of swirling of central mesentery and vessels of uncertain significance in the absence of evidence to suggest internal hernia or malrotation. Prostate calcifications. Grossly unremarkable appearance of the urinary bladder. The urinary bladder appears unremarkable. Degenerative changes of the spine. Anterolisthesis of L5 on S1. Bilateral L5 spondylolysis. Impression: Nonspecific ill-defined opacities within the right lower lobe and tiny scattered nodular densities at the bilateral lung bases of unclear significance ; infectious or inflammatory etiologies are favored. Correlate clinically and follow-up as indicated. Examination markedly limited by paucity of intra-abdominal and intrapelvic fat. Lack of IV contrast limits evaluation of the solid organs. Postsurgical gastric changes with evidence of gastric anastomosis to the small bowel. Moderate constipation. Evidence of swirling of central mesentery and vessels of uncertain significance in the absence of evidence to suggest internal hernia or malrotation. Marked dense atherosclerotic calcifications of the aorta and branches.
[2017-11-19] MEDS ORDERED: Aluminum Hydroxide/Magnesium Hydroxide Susp (30 mL) PO ONE (18:08)
[2017-11-19] MEDS: Oxycodone/Acetaminophen 5/325 mg Tab PO SCH (21:34)
[2017-11-19] MEDS: VILANTEROL INH SCH (21:36)
[2017-11-19] MEDS: FLUTICASONE FUROATE INH SCH (21:36)
[2017-11-20] MEDS: Ipratropium 0.02% Inhal Soln (0.5 mg/2.5 ml) UD IH SCH ×4 (01:39→19:37)
[2017-11-20] MEDS ORDERED: Acetylcysteine 20% Inhal Soln (4ml) INH SCH (01:45)
[2017-11-20 07:15] LABS: HEMOGLOBIN 13.9 g/dL (12.0-18.0); MEAN CELL VOLUME 96.1 fL (80.0-94.0); MEAN CORPUSCULAR HEMOGLOBIN 32.4 pg (27.0-31.0); MEAN CORPUSCULAR HGB CONC 33.7 g/dL (33.0-37.0); MEAN PLATELET VOLUME 8.4 fL (7.2-11.7); RBC 4.28 Mil/uL (4.40-5.90); RED CELL DISTRIBUTION WIDTH 15.1 % (11.5-14.5); WHITE BLOOD COUNT 11.3 K/uL (4.8-10.8)
[2017-11-20 08:31] LABS: BLOOD UREA NITROGEN 15 mg/dL (9-20); CALCIUM 7.9 mg/dl (8.6-10.4); GFR AFRICAN-AMERICAN > 60; GFR NON-AFRICAN AMERICAN > 60
[2017-11-20] MEDS: Acetylcysteine 20% Inhal Soln (4ml) INH SCH ×3 (08:38→19:37)
[2017-11-20] MEDS: INCRUSE ELLIPTA INH SCH (09:03)
[2017-11-20] MEDS: Fluticasone Nasal 50 mcg/Spray NAS SCH (09:03)
[2017-11-20] MEDS: guaiFENesin DM 100 mg-10 mg/5 ml UD PO PRN ×3 (09:05→17:21)
[2017-11-20] MEDS: Enoxaparin 30 mg Syringe SC SCH (09:05)
--- NOTE | 2017-11-20 10:39 | CP.PCM.PN ---
Subjective - Date & Time of Evaluation Date of Evaluation: 11/20/17 Time of Evaluation: 10:35 - Subjective Subjective: pt has pain l eare still coughing and sob Objective - Vital Signs/Intake and Output Vital Signs (last 24 hours): Temp Pulse Resp BP Pulse Ox 97.9 F 87 20 163/94 H 94 L 11/20/17 08:16 11/20/17 08:16 11/20/17 08:16 11/20/17 08:16 11/20/17 08:16 Intake and Output: 11/20/17 11/20/17 06:59 18:59 Intake Total 800 Balance 800 - Medications Medications: Current Medications Acetaminophen (Tylenol 325mg Tab) 650 mg PO Q6 PRN PRN Reason: Pain, Mild (1-3) Last Admin: 11/19/17 11:11 Dose: 650 mg Acetylcysteine (Acetylcysteine 20%) 4 ml INH RQ6 [facility] Last Admin: 11/20/17 08:38 Dose: 4 ml Amlodipine Besylate (Norvasc) 5 mg PO DAILY [facility] Last Admin: 11/20/17 09:05 Dose: 5 mg Baclofen (Lioresal) 10 mg PO BID PRN PRN Reason: Muscle spasm Last Admin: 11/20/17 09:05 Dose: 10 mg Enoxaparin Sodium (Lovenox) 30 mg SC DAILY [facility] Last Admin: 11/20/17 09:05 Dose: 30 mg Fluticasone Propionate (Flonase) 2 spr NAILA DAILY [facility] Last Admin: 11/20/17 09:03 Dose: 2 spr Gabapentin (Neurontin) 300 mg PO HS [facility] Last Admin: 11/19/17 21:34 Dose: 300 mg Guaifenesin/Dextromethorphan (Robitussin Dm) 5 ml PO Q4H PRN PRN Reason: Cough Last Admin: 11/20/17 09:05 Dose: 5 ml Home Med (Patient's Own Inhaler) 1 puff INH RQD [facility] Last Admin: 11/20/17 09:03 Dose: 1 puff Home Med (Patient's Own Inhaler) 1 puff INH HS [facility] Last Admin: 11/19/17 21:36 Dose: 1 puff Ipratropium [place] (Atrovent) 0.5 mg IH RQ6 [facility] Last Admin: 11/20/17 08:38 Dose: 0.5 mg Montelukast Sodium (Singulair) 10 mg PO HS [facility] Last Admin: 11/19/17 21:34 Dose: 10 mg Oxycodone/Acetaminophen (Percocet 5/325 Mg Tab) 1 tab PO [facility] Stop: 11/22/17 22:01 Last Admin: 11/19/17 21:34 Dose: 1 tab Prednisone (Prednisone Tab) 20 mg PO BID [facility] Last Admin: 11/20/17 09:05 Dose: 20 mg Sertraline HCl (Zoloft) 100 mg PO DAILY [facility] Last Admin: 11/20/17 09:05 Dose: 100 mg Tamsulosin HCl (Flomax) 0.4 mg PO DAILY [facility] Last Admin: 11/20/17 09:04 Dose: 0.4 mg - Labs Labs: 11/20/17 07:09 11/20/17 07:09 - Constitutional Appears: Non-toxic - Head Exam Head Exam: NORMAL INSPECTION - Eye Exam Eye Exam: Normal appearance Pupil Exam: NORMAL ACCOMODATION - ENT Exam ENT Exam: Mucous Membranes Moist - Neck Exam Neck Exam: Full ROM - Respiratory Exam Respiratory Exam: Chest Wall Tenderness, Decreased Breath Sounds, Prolonged Expiratory Phase, Respiratory Distress - Cardiovascular Exam Cardiovascular Exam: REGULAR RHYTHM - GI/Abdominal Exam GI & Abdominal Exam: Normal Bowel Sounds - Rectal Exam Rectal Exam: NORMAL INSPECTION - Back Exam Back Exam: NORMAL INSPECTION - Neurological Exam Neurological Exam: Oriented x3 - Psychiatric Exam Psychiatric exam: Flat Affect - Skin Skin Exam: Normal Color Assessment and Plan - Assessment and Plan (Free Text) Assessment: ac eare pain ac exa copd [place] Plan: as per orders
[2017-11-20] MEDS: Azithromycin 500 MG in Sodium Chloride 0.9% 250 ML IVPB SCH (12:26)
[2017-11-20] MEDS: Oxycodone/Acetaminophen 5/325 mg Tab PO SCH (21:11)
[2017-11-20] MEDS: VILANTEROL INH SCH (21:17)
[2017-11-20] MEDS: FLUTICASONE FUROATE INH SCH (21:17)
[2017-11-21] MEDS: Acetylcysteine 20% Inhal Soln (4ml) INH SCH ×4 (01:42→19:17)
[2017-11-21] MEDS: Ipratropium 0.02% Inhal Soln (0.5 mg/2.5 ml) UD IH SCH ×4 (01:42→19:17)
[2017-11-21] MEDS: Fluticasone Nasal 50 mcg/Spray NAS SCH (09:16)
[2017-11-21] MEDS: INCRUSE ELLIPTA INH SCH (09:16)
[2017-11-21] MEDS: guaiFENesin DM 100 mg-10 mg/5 ml UD PO PRN ×3 (09:17→17:34)
[2017-11-21] MEDS: Enoxaparin 30 mg Syringe SC SCH (09:18)
[2017-11-21] MEDS: Azithromycin 500 MG in Sodium Chloride 0.9% 250 ML IVPB SCH (11:31)
--- NOTE | 2017-11-21 18:18 | CP.PCM.PN ---
Subjective - Date & Time of Evaluation Date of Evaluation: 11/21/17 Time of Evaluation: 18:15 - Subjective Subjective: pain leare still has cough increase at night and wheesing Objective - Vital Signs/Intake and Output Vital Signs (last 24 hours): Temp Pulse Resp BP Pulse Ox 97.9 F 100 H 20 162/79 H 94 L 11/21/17 15:00 11/21/17 15:00 11/21/17 15:00 11/21/17 15:00 11/21/17 15:00 Intake and Output: 11/21/17 11/21/17 06:59 18:59 Intake Total 1030 1130 Balance 1030 1130 - Medications Medications: Current Medications Acetaminophen (Tylenol 325mg Tab) 650 mg PO Q6 PRN PRN Reason: Pain, Mild (1-3) Last Admin: 11/20/17 15:25 Dose: 650 mg Acetylcysteine (Acetylcysteine 20%) 4 ml INH RQ6 [facility] Last Admin: 11/21/17 14:12 Dose: 4 ml Amlodipine Besylate (Norvasc) 5 mg PO DAILY [facility] Last Admin: 11/21/17 09:18 Dose: 5 mg Baclofen (Lioresal) 10 mg PO BID PRN PRN Reason: Muscle spasm Last Admin: 11/21/17 17:51 Dose: 10 mg Docusate Sodium (Colace) 100 mg PO BID [facility] Last Admin: 11/21/17 17:33 Dose: 100 mg Enoxaparin Sodium (Lovenox) 30 mg SC DAILY [facility] Last Admin: 11/21/17 09:18 Dose: 30 mg Fluticasone Propionate (Flonase) 2 spr NAILA DAILY [facility] Last Admin: 11/21/17 09:16 Dose: 2 spr Gabapentin (Neurontin) 300 mg PO HS [facility] Last Admin: 11/20/17 21:11 Dose: 300 mg Guaifenesin/Dextromethorphan (Robitussin Dm) 5 ml PO Q4H PRN PRN Reason: Cough Last Admin: 11/21/17 17:34 Dose: 5 ml Home Med (Patient's Own Inhaler) 1 puff INH RQD [facility] Last Admin: 11/21/17 09:16 Dose: 1 puff Home Med (Patient's Own Inhaler) 1 puff INH HS [facility] Last Admin: 11/20/17 21:17 Dose: 1 puff Azithromycin 500 mg/ Sodium (Chloride) 250 mls @ 250 mls/hr IVPB DAILY [facility] Last Admin: 11/21/17 11:31 Dose: 250 mls/hr Ipratropium [place] (Atrovent) 0.5 mg IH RQ6 [facility] Last Admin: 11/21/17 14:11 Dose: 0.5 mg Montelukast Sodium (Singulair) 10 mg PO HS [facility] Last Admin: 11/20/17 21:12 Dose: 10 mg Oxycodone/Acetaminophen (Percocet 5/325 Mg Tab) 1 tab PO HS [facility] Stop: 11/22/17 22:01 Last Admin: 11/20/17 21:11 Dose: 1 tab Prednisone (Prednisone Tab) 20 mg PO BID [facility] Last Admin: 11/21/17 17:34 Dose: 20 mg Sertraline HCl (Zoloft) 100 mg PO DAILY [facility] Last Admin: 11/21/17 09:17 Dose: 100 mg Tamsulosin HCl (Flomax) 0.4 mg PO DAILY [facility] Last Admin: 11/21/17 09:18 Dose: 0.4 mg - Labs Labs: 11/20/17 07:09 11/20/17 07:09 - Constitutional Appears: Non-toxic - Head Exam Head Exam: NORMAL INSPECTION - Eye Exam Eye Exam: Normal appearance Pupil Exam: NORMAL ACCOMODATION - ENT Exam ENT Exam: Mucous Membranes Moist, Normal External Ear Exam Additional comments: tender l eare - Neck Exam Neck Exam: Full ROM - Respiratory Exam Respiratory Exam: Decreased Breath Sounds, Wheezes - Cardiovascular Exam Cardiovascular Exam: REGULAR RHYTHM - GI/Abdominal Exam GI & Abdominal Exam: Normal Bowel Sounds - Exam External exam: NORMAL EXTERNAL EXAM - Extremities Exam Extremities Exam: Full ROM - Back Exam Back Exam: NORMAL INSPECTION - Neurological Exam Neurological Exam: Alert, Normal Gait, Oriented x3 Neuro motor strength exam: Left Upper Extremity: 5 Assessment and Plan - Assessment and Plan (Free Text) Assessment: ac pain l eare ac exa copd Plan: ent consult cont tratment
[2017-11-21] MEDS: Oxycodone/Acetaminophen 5/325 mg Tab PO SCH (21:08)
[2017-11-21] MEDS: VILANTEROL INH SCH (21:12)
[2017-11-21] MEDS: FLUTICASONE FUROATE INH SCH (21:12)
--- NOTE | 2017-11-21 21:22 | CON ---
DATE: 11/21/2017 REQUESTING PHYSICIAN: Dr. Coffey. REASON FOR CONSULTATION: Left ear pain. HISTORY OF PRESENT ILLNESS: This is a 57-year-old male with multiple-day history of ear pain, constant, mild to moderate in intensity. There is no hearing loss, no ear discharge. PAST MEDICAL HISTORY: As noted in the chart by me. MEDICATIONS: As noted in the chart by me. PHYSICAL EXAMINATION: HEAD: Atraumatic, normocephalic. FACE: Good facial movements bilaterally. CONSTITUTIONAL: Well fed, well nourished. COMMUNICATION: Communicates well and appropriately. EXTERNAL NOSE AND EARS: No masses. No lesions. No erythema. No edema. INTERNAL NOSE: Deviated septum. No masses. No lesions. No erythema. No edema. ORAL CAVITY AND OROPHARYNX: No masses. No lesions. No erythema. No edema. LIPS AND GUMS: No masses. No lesions. No erythema. No edema. EARS: TM intact with no fluids behind it. NECK: Supple. THYROID: No thyromegaly. No goiter. LYMPH NODES: No lymphadenopathy of the neck. MANDIBLE: There is pain on the TMJ upon palpation on the left. ASSESSMENT: 1. Ear pain. 2. Deviated septum. 3. Temporomandibular joint dysfunction. PLAN: Warm compress to the left ear and a soft mechanical diet. Jose Bender MD
[2017-11-22] MEDS: Acetylcysteine 20% Inhal Soln (4ml) INH SCH ×4 (01:44→20:21)
[2017-11-22] MEDS: Ipratropium 0.02% Inhal Soln (0.5 mg/2.5 ml) UD IH SCH ×4 (01:44→20:21)
[2017-11-22] MEDS: Enoxaparin 30 mg Syringe SC SCH (09:01)
[2017-11-22] MEDS: Fluticasone Nasal 50 mcg/Spray NAS SCH (09:02)
[2017-11-22] MEDS: INCRUSE ELLIPTA INH SCH (09:02)
[2017-11-22] MEDS: guaiFENesin DM 100 mg-10 mg/5 ml UD PO PRN ×2 (09:20→17:51)
[2017-11-22] MEDS: Azithromycin 500 MG in Sodium Chloride 0.9% 250 ML IVPB SCH (11:09)
--- NOTE | 2017-11-22 12:17 | CP.PCM.PN ---
Subjective - Date & Time of Evaluation Date of Evaluation: 11/22/17 Time of Evaluation: 12:15 - Subjective Subjective: pt still coughing a lot sob uncomfortable Objective - Vital Signs/Intake and Output Vital Signs (last 24 hours): Temp Pulse Resp BP Pulse Ox 98.2 F 101 H 20 116/58 L 95 11/22/17 08:44 11/22/17 08:44 11/22/17 08:44 11/22/17 08:44 11/22/17 08:44 Intake and Output: 11/22/17 11/22/17 06:59 18:59 Intake Total 1080 Balance 1080 - Medications Medications: Current Medications Acetaminophen (Tylenol 325mg Tab) 650 mg PO Q6 PRN PRN Reason: Pain, Mild (1-3) Last Admin: 11/20/17 15:25 Dose: 650 mg Acetylcysteine (Acetylcysteine 20%) 4 ml INH RQ6 [facility] Last Admin: 11/22/17 08:56 Dose: 4 ml Amlodipine Besylate (Norvasc) 10 mg PO DAILY [facility] Last Admin: 11/22/17 09:09 Dose: 10 mg Baclofen (Lioresal) 10 mg PO BID PRN PRN Reason: Muscle spasm Last Admin: 11/21/17 17:51 Dose: 10 mg Docusate Sodium (Colace) 100 mg PO BID [facility] Last Admin: 11/22/17 09:02 Dose: 100 mg Enoxaparin Sodium (Lovenox) 30 mg SC DAILY [facility] Last Admin: 11/22/17 09:01 Dose: 30 mg Fluticasone Propionate (Flonase) 2 spr NAILA DAILY [facility] Last Admin: 11/22/17 09:02 Dose: 2 spr Gabapentin (Neurontin) 300 mg PO HS [facility] Last Admin: 11/21/17 21:07 Dose: 300 mg Guaifenesin/Dextromethorphan (Robitussin Dm) 5 ml PO Q4H PRN PRN Reason: Cough Last Admin: 11/22/17 09:20 Dose: 5 ml Home Med (Patient's Own Inhaler) 1 puff INH RQD [facility] Last Admin: 11/22/17 09:02 Dose: 1 puff Home Med (Patient's Own Inhaler) 1 puff INH HS [facility] Last Admin: 11/21/17 21:12 Dose: 1 puff Azithromycin 500 mg/ Sodium (Chloride) 250 mls @ 250 mls/hr IVPB DAILY [facility] Last Admin: 11/22/17 11:09 Dose: 250 mls/hr Ipratropium [place] (Atrovent) 0.5 mg IH RQ6 [facility] Last Admin: 11/22/17 08:56 Dose: 0.5 mg Montelukast Sodium (Singulair) 10 mg PO HS [facility] Last Admin: 11/21/17 21:09 Dose: 10 mg Oxycodone/Acetaminophen (Percocet 5/325 Mg Tab) 1 tab PO HS [facility] Stop: 11/22/17 22:01 Last Admin: 11/21/17 21:08 Dose: 1 tab Prednisone (Prednisone Tab) 20 mg PO BID [facility] Last Admin: 11/22/17 09:02 Dose: 20 mg Sertraline HCl (Zoloft) 100 mg PO DAILY [facility] Last Admin: 11/22/17 09:02 Dose: 100 mg Tamsulosin HCl (Flomax) 0.4 mg PO DAILY [facility] Last Admin: 11/22/17 09:02 Dose: 0.4 mg - Labs Labs: 11/20/17 07:09 11/20/17 07:09 - Constitutional Appears: Non-toxic - Head Exam Head Exam: NORMAL INSPECTION - Eye Exam Eye Exam: Normal appearance Pupil Exam: NORMAL ACCOMODATION - ENT Exam ENT Exam: Mucous Membranes Moist - Neck Exam Neck Exam: Normal Inspection - Respiratory Exam Respiratory Exam: Decreased Breath Sounds, Rales, Rhonchi, Wheezes - Cardiovascular Exam Cardiovascular Exam: REGULAR RHYTHM - GI/Abdominal Exam GI & Abdominal Exam: Normal Bowel Sounds - Rectal Exam Rectal Exam: NORMAL INSPECTION - Exam Exam: NORMAL INSPECTION - Extremities Exam Extremities Exam: Normal Inspection - Back Exam Back Exam: NORMAL INSPECTION - Neurological Exam Neurological Exam: Awake - Psychiatric Exam Psychiatric exam: Normal Affect - Skin Skin Exam: Pallor Assessment and Plan - Assessment and Plan (Free Text) Assessment: severe copd Plan: cont treatment
[2017-11-22] MEDS ORDERED: MethylPREDNISolone 40 mg Vial IV ONE ×2 (13:15→14:30)
[2017-11-22] MEDS: FLUTICASONE FUROATE INH SCH (21:56)
[2017-11-22] MEDS: VILANTEROL INH SCH (21:56)
[2017-11-22] MEDS: Oxycodone/Acetaminophen 5/325 mg Tab PO SCH (21:56)
[2017-11-23] MEDS: Acetylcysteine 20% Inhal Soln (4ml) INH SCH ×5 (01:26→19:57)
[2017-11-23] MEDS: Ipratropium 0.02% Inhal Soln (0.5 mg/2.5 ml) UD IH SCH ×5 (01:26→19:57)
[2017-11-23] MEDS: INCRUSE ELLIPTA INH SCH (08:00)
--- NOTE | 2017-11-23 09:31 | CP.PCM.PN ---
Subjective - Date & Time of Evaluation Date of Evaluation: 11/23/17 Time of Evaluation: :29 - Subjective Subjective: still coughing sob wheesing Objective - Vital Signs/Intake and Output Vital Signs (last 24 hours): Temp Pulse Resp BP Pulse Ox 97.9 F 89 20 149/85 97 11/23/17 08:16 11/23/17 08:16 11/23/17 08:16 11/23/17 08:16 11/23/17 08:16 Intake and Output: 11/23/17 11/23/17 06:59 18:59 Intake Total 710 Balance 710 - Medications Medications: Current Medications Acetaminophen (Tylenol 325mg Tab) 650 mg PO Q6 PRN PRN Reason: Pain, Mild (1-3) Last Admin: 11/22/17 16:10 Dose: 650 mg Acetylcysteine (Acetylcysteine 20%) 4 ml INH RQ6 [facility] Last Admin: 11/23/17 09:12 Dose: 4 ml Amlodipine Besylate (Norvasc) 10 mg PO DAILY [facility] Last Admin: 11/22/17 09:09 Dose: 10 mg Baclofen (Lioresal) 10 mg PO BID PRN PRN Reason: Muscle spasm Last Admin: 11/21/17 17:51 Dose: 10 mg Docusate Sodium (Colace) 100 mg PO BID [facility] Last Admin: 11/22/17 17:48 Dose: 100 mg Enoxaparin Sodium (Lovenox) 30 mg SC DAILY [facility] Last Admin: 11/22/17 09:01 Dose: 30 mg Fluticasone Propionate (Flonase) 2 spr NAILA DAILY [facility] Last Admin: 11/22/17 09:02 Dose: 2 spr Gabapentin (Neurontin) 300 mg PO HS [facility] Last Admin: 11/22/17 21:52 Dose: 300 mg Guaifenesin/Dextromethorphan (Robitussin Dm) 5 ml PO Q4H PRN PRN Reason: Cough Last Admin: 11/22/17 17:51 Dose: 5 ml Home Med (Patient's Own Inhaler) 1 puff INH RQD [facility] Last Admin: 11/22/17 09:02 Dose: 1 puff Home Med (Patient's Own Inhaler) 1 puff INH HS [facility] Last Admin: 11/22/17 21:56 Dose: 1 puff Azithromycin 500 mg/ Sodium (Chloride) 250 mls @ 250 mls/hr IVPB DAILY [facility] Last Admin: 11/22/17 11:09 Dose: 250 mls/hr Ipratropium [place] (Atrovent) 0.5 mg IH RQ6 [facility] Last Admin: 11/23/17 09:12 Dose: 0.5 mg Montelukast Sodium (Singulair) 10 mg PO HS [facility] Last Admin: 11/22/17 21:52 Dose: 10 mg Prednisone (Prednisone Tab) 20 mg PO BID [facility] Last Admin: 11/22/17 17:48 Dose: 20 mg Sertraline HCl (Zoloft) 100 mg PO DAILY [facility] Last Admin: 11/22/17 09:02 Dose: 100 mg Tamsulosin HCl (Flomax) 0.4 mg PO DAILY [facility] Last Admin: 11/22/17 09:02 Dose: 0.4 mg - Labs Labs: 11/20/17 07:09 11/20/17 07:09 - Constitutional Appears: Non-toxic - Head Exam Head Exam: NORMAL INSPECTION - Eye Exam Eye Exam: Normal appearance Pupil Exam: NORMAL ACCOMODATION - ENT Exam ENT Exam: Mucous Membranes Moist - Neck Exam Neck Exam: Normal Inspection - Respiratory Exam Respiratory Exam: Decreased Breath Sounds, Prolonged Expiratory Phase, Rhonchi, Wheezes - Cardiovascular Exam Cardiovascular Exam: REGULAR RHYTHM - GI/Abdominal Exam GI & Abdominal Exam: Normal Bowel Sounds - Rectal Exam Rectal Exam: NORMAL INSPECTION - Exam Exam: NORMAL INSPECTION - Neurological Exam Neurological Exam: Alert, Oriented x3 - Psychiatric Exam Psychiatric exam: Normal Mood - Skin Skin Exam: Pallor Assessment and Plan - Assessment and Plan (Free Text) Assessment: persistant ex of copd htn improving hyponatreamia Plan: repeate lab cont treatment
[2017-11-23] MEDS: Enoxaparin 30 mg Syringe SC SCH (10:32)
[2017-11-23] MEDS: Fluticasone Nasal 50 mcg/Spray NAS SCH (10:33)
[2017-11-23] MEDS: Azithromycin 500 MG in Sodium Chloride 0.9% 250 ML IVPB SCH (10:44)
[2017-11-23] MEDS: guaiFENesin DM 100 mg-10 mg/5 ml UD PO PRN ×2 (10:49→16:41)
[2017-11-23] MEDS: VILANTEROL INH SCH (21:50)
[2017-11-23] MEDS: FLUTICASONE FUROATE INH SCH (21:50)
[2017-11-23] MEDS ORDERED: Oxycodone/Acetaminophen 5/325 mg Tab PO SCH (22:15)
[2017-11-24] MEDS: Ipratropium 0.02% Inhal Soln (0.5 mg/2.5 ml) UD IH SCH ×3 (01:32→14:03)
[2017-11-24] MEDS: Acetylcysteine 20% Inhal Soln (4ml) INH SCH ×3 (01:32→14:03)
[2017-11-24 07:58] LABS: BASO % 0.1 % (0.0-2.0); EOS % 0.2 % (0.0-4.0); HEMOGLOBIN 13.3 g/dL (12.0-18.0); LYMPH # 1.5 K/uL (1.0-4.3); LYMPH % 15.7 % (20.0-40.0); MEAN CORPUSCULAR HGB CONC 34.8 g/dL (33.0-37.0); MEAN PLATELET VOLUME 8.1 fL (7.2-11.7); MONO # 0.7 K/uL (0.0-0.8); MONO % 7.8 % (0.0-10.0); NEUT # 7.4 K/uL (1.8-7.0); NEUT % 76.2 % (50.0-75.0); RBC 4.03 Mil/uL (4.40-5.90); RED CELL DISTRIBUTION WIDTH 14.9 % (11.5-14.5); WHITE BLOOD COUNT 9.6 K/uL (4.8-10.8)
[2017-11-24 08:22] LABS: BLOOD UREA NITROGEN 16 mg/dL (9-20); CALCIUM 7.7 mg/dl (8.6-10.4); GFR AFRICAN-AMERICAN > 60; GFR NON-AFRICAN AMERICAN > 60
[2017-11-24 08:31] LABS: B-TYPE NATRIURETIC PEPTIDE 84.1 pg/mL (0-900)
[2017-11-24] MEDS: INCRUSE ELLIPTA INH SCH (08:37)
[2017-11-24] MEDS: Enoxaparin 30 mg Syringe SC SCH (10:40)
[2017-11-24] MEDS: Fluticasone Nasal 50 mcg/Spray NAS SCH (10:40)
[2017-11-24] MEDS: Azithromycin 500 MG in Sodium Chloride 0.9% 250 ML IVPB SCH (10:41)
[2017-11-24] MEDS: guaiFENesin DM 100 mg-10 mg/5 ml UD PO PRN (10:44)
--- NOTE | 2017-11-24 11:06 | CP.PCM.PN ---
Subjective - Date & Time of Evaluation Date of Evaluation: 11/24/17 Time of Evaluation: 11:04 - Subjective Subjective: pt breathingbeter less wheesing Objective - Vital Signs/Intake and Output Vital Signs (last 24 hours): Temp Pulse Resp BP Pulse Ox 98.5 F 85 20 149/80 85 L 11/24/17 08:00 11/24/17 08:00 11/24/17 08:00 11/24/17 08:00 11/24/17 08:00 Intake and Output: 11/24/17 11/24/17 06:59 18:59 Intake Total 840 Balance 840 - Medications Medications: Current Medications Acetaminophen (Tylenol 325mg Tab) 650 mg PO Q6 PRN PRN Reason: Pain, Mild (1-3) Last Admin: 11/23/17 16:41 Dose: 650 mg Acetylcysteine (Acetylcysteine 20%) 4 ml INH RQ6 [facility] Last Admin: 11/24/17 08:40 Dose: 4 ml Amlodipine Besylate (Norvasc) 10 mg PO DAILY [facility] Last Admin: 11/24/17 10:41 Dose: 10 mg Baclofen (Lioresal) 10 mg PO BID PRN PRN Reason: Muscle spasm Last Admin: 11/24/17 10:41 Dose: 10 mg Docusate Sodium (Colace) 100 mg PO BID [facility] Last Admin: 11/24/17 10:41 Dose: 100 mg Fluticasone Propionate (Flonase) 2 spr NAILA DAILY [facility] Last Admin: 11/24/17 10:40 Dose: 2 spr Gabapentin (Neurontin) 300 mg PO HS [facility] Last Admin: 11/23/17 21:50 Dose: 300 mg Guaifenesin/Dextromethorphan (Robitussin Dm) 5 ml PO Q4H PRN PRN Reason: Cough Last Admin: 11/24/17 10:44 Dose: 5 ml Home Med (Patient's Own Inhaler) 1 puff INH RQD [facility] Last Admin: 11/24/17 08:37 Dose: 1 puff Home Med (Patient's Own Inhaler) 1 puff INH HS [facility] Last Admin: 11/23/17 21:50 Dose: 1 puff Azithromycin 500 mg/ Sodium (Chloride) 250 mls @ 250 mls/hr IVPB DAILY [facility] Last Admin: 11/24/17 10:41 Dose: 250 mls/hr Ipratropium [place] (Atrovent) 0.5 mg IH RQ6 [facility] Last Admin: 11/24/17 08:40 Dose: 0.5 mg Montelukast Sodium (Singulair) 10 mg PO HS [facility] Last Admin: 11/23/17 21:50 Dose: 10 mg Oxycodone/Acetaminophen (Percocet 5/325 Mg Tab) 1 tab PO HS [facility] Stop: 11/26/17 22:16 Last Admin: 11/23/17 22:30 Dose: 1 tab Prednisone (Prednisone Tab) 20 mg PO BID [facility] Last Admin: 11/24/17 10:41 Dose: 20 mg Sertraline HCl (Zoloft) 100 mg PO DAILY [facility] Last Admin: 11/24/17 10:41 Dose: 100 mg Tamsulosin HCl (Flomax) 0.4 mg PO DAILY [facility] Last Admin: 11/24/17 10:41 Dose: 0.4 mg - Labs Labs: 11/24/17 07:43 11/24/17 07:43 - Constitutional Appears: Non-toxic - Head Exam Head Exam: NORMAL INSPECTION - Eye Exam Eye Exam: Normal appearance Pupil Exam: NORMAL ACCOMODATION - ENT Exam ENT Exam: TM's Normal Bilaterally Additional comments: l tender - Neck Exam Neck Exam: Full ROM - Respiratory Exam Respiratory Exam: Decreased Breath Sounds, Wheezes - Cardiovascular Exam Cardiovascular Exam: REGULAR RHYTHM - GI/Abdominal Exam GI & Abdominal Exam: Normal Bowel Sounds - Rectal Exam Rectal Exam: NORMAL INSPECTION - Exam Exam: NORMAL INSPECTION - Extremities Exam Extremities Exam: Normal Inspection - Back Exam Back Exam: NORMAL INSPECTION - Neurological Exam Neurological Exam: Normal Gait - Psychiatric Exam Psychiatric exam: Normal Affect - Skin Skin Exam: Dry Assessment and Plan - Assessment and Plan (Free Text) Assessment: ac exacerbation copd tachcardiaatheroscleosis aota infiltrate lung tmarthritis Plan: pt will be discharged today to [facility] on medications rx given
[2017-11-24] MEDS ORDERED: Influenza Vaccine 60 mcg/0.5 mL SYR (4YR UP) IM ONE (12:57)
[2017-11-24] MEDS ORDERED: Pneumococcal 23-Valent Vaccine IM ONE (12:57)
[2017-11-24 15:53] VITALS: BP 137/75; PULSE 68; TEMP 97.7; O2SAT 97
--- NOTE | 2017-12-05 02:39 | DS ---
HISTORY OF PRESENT ILLNESS: The patient came in to the hospital on 11/16/2017 to the emergency room. He is 57-year-old who has asthma and chronic obstructive lung disease. He came in with shortness of breath and using his chest muscles. He has history of smoking and he was coughing productive, and he got worse and he came to the emergency room. He has no fever and no abdominal pain or back pain, but his muscles of the chest wall was hurting. VITAL SIGNS: His temperature was 97, his pulse was 102, his respirations 24, his blood pressure 106/65 on admission. HOSPITAL COURSE: He was admitted for asthma exacerbation, possible pneumonia, bronchitis, COPD, depression, and he has history of gastric ulcer, also hypertension and he started on oxygen and he has chest x-ray with chronic changes. He had a CAT scan of the abdomen and pelvis, which shows nonspecific ill-defined opacities in the right lower lobe, most likely inflammation, and he was treated for possible pneumonitis or bronchitis, and he was given antibiotics and oxygen. He has nebulizer treatment. He was on regular diet. He was seen by Dr. Dino Gonzalez for pulmonary consultation, and he has ear pain; he was seen also by Dr. Bender. The patient improved. On 11/23, he was seen. He was breathing better and was taking all his medications. His white count was normal. His chemistry was normal and the CBC was normal. He was discharged the same day to continue on all his medications and follow up by his doctors, this was on 11/24/2017. FINAL DIAGNOSES: 1. Acute exacerbation of chronic obstructive pulmonary disease. 2. Acute pneumonia. 3. Acute bronchitis. Anabell Coffey MD
== END 2017-11-24 18:45 | disposition home or self-care (01) | DRG 541 ==
LOC: C.ER 19:20 → C.9E 21:23 → C.3T 23:08
PROVIDERS: ADMIT Internal Medicine; ATTEND Internal Medicine
DX: J44.0 Chronic obstructive pulmonary disease with (acute) lower respiratory infection (principal); J18.9 Pneumonia, unspecified organism; E87.1 Hypo-osmolality and hyponatremia; J45.901 Unspecified asthma with (acute) exacerbation; K21.9 Gastro-esophageal reflux disease without esophagitis; J20.9 Acute bronchitis, unspecified; J44.1 Chronic obstructive pulmonary disease with (acute) exacerbation; F17.210 Nicotine dependence, cigarettes, uncomplicated; I10 Essential (primary) hypertension; J34.2 Deviated nasal septum; M26.69 Other specified disorders of temporomandibular joint; H92.09 Otalgia, unspecified ear; N40.0 Benign prostatic hyperplasia without lower urinary tract symptoms; Z87.11 Personal history of peptic ulcer disease; Z87.01 Personal history of pneumonia (recurrent); Z90.49 Acquired absence of other specified parts of digestive tract

== ENCOUNTER 2017-12-24 14:34 | Inpatient (IN) | payer MEDICAID, OTHER ==
[2017-12-24 14:34] VITALS: BMI 18.8
[2017-12-24] MEDS ORDERED: Albuterol-Ipratrop 3 mg / 0.5 (3 ml) UD INH STA ×3 (14:59→15:00)
[2017-12-24] MEDS ORDERED: MethylPREDNISolone 40 mg Vial IVP STA (14:59)
--- NOTE | 2017-12-24 15:21 | C.PDOC ---
History Of Present Illness 57yo male, with past medical history of COPD, presents to ED with complaints of cough and wheeze for the past couple days with associated mild headache. Patient brought to ER via EMS and was given Solumedrol 125mg and a Nebulizer treatment prior to arrival . Patient has no other complaints Time Seen by Provider: 12/24/17 14:37 Chief Complaint (Nursing): Shortness Of Breath History Per: Patient History/Exam Limitations: no limitations Onset/Duration Of Symptoms: Days Current Symptoms Are (Timing): Still Present Past Medical History Reviewed: Historical Data, Nursing Documentation, Vital Signs Vital Signs: Last Vital Signs Temp 98.4 F 12/24/17 14:40 Pulse 98 H 12/24/17 14:40 Resp 20 12/24/17 14:40 BP 124/78 12/24/17 14:40 Pulse Ox 96 12/24/17 17:29 - Medical History PMH: Anxiety, Asthma, Bronchitis, COPD, Depression, Gastrointestinal Ulcer, HTN , Pneumonia Denies: Diabetes, HIV, Chronic Kidney Disease, Seizures, Sexually Transmitted Disease Surgical History: Appendectomy, Tonsillectomy - [facility] Procedures CONTR ABD ARTERIOGRM NEC (05/20/07) DETOXIFICATION SERVICES FOR SUBSTANCE ABUSE TREATMENT (05/21/17) ESOPHAGOGASTRODUODENOSCOPY [EGD] W/CLOSED BIOPSY (05/20/07) EXCISION OF LOWER ESOPHAGUS, ENDO, DIAGN (05/21/17) EXTIRPATION OF MATTER FROM LOWER ESOPHAGUS, ENDO (05/21/17) GROUP CHIP WASHER FOR SUBSTANCE ABUSE TREATMENT, PSYCHOEDUCATION (01/14/17) GROUP CHIP WASHER FOR SUBSTANCE ABUSE, COGNITIVE BEHAVIORAL (01/14/17) GROUP PSYCHOTHERAPY (04/22/17) INDIV CHIP WASHER FOR SUBSTANCE ABUSE TREATMENT, PSYCHOEDUCATION (01/14/17) INDIV CHIP WASHER FOR SUBSTANCE ABUSE, COGNITIVE BEHAVIORAL (01/14/17) INDIV PSYCHOTHERAPY FOR SUBSTANCE ABUSE TREATMENT, SUPPORT (05/21/17) INDIV PSYCHOTHERAPY FOR SUBSTANCE ABUSE, COGNITIV BEHAVIORAL (05/21/17) INDIV PSYCHOTHERAPY FOR SUBSTANCE ABUSE, PSYCHOEDUCATION (05/21/17) INDIVIDUAL PSYCHOTHERAPY, COGNITIVE-BEHAVIORAL (05/21/17) INDIVIDUAL PSYCHOTHERAPY, SUPPORTIVE (05/21/17) INJECT/INFUSE NEC (03/20/12) MEDICATION MANAGEMENT (03/12/17) MEDS MGMT FOR SUBSTANCE ABUSE TREATMENT, OTH REPL MED (03/12/17) Family History: States: Unknown Family Hx - Social History Hx Tobacco Use: Yes Hx Alcohol Use: Yes Hx Substance Use: Yes - Immunization History Hx Tetanus Toxoid Vaccination: Yes Hx Influenza Vaccination: Yes (01/2016) Hx Pneumococcal Vaccination: Yes (2015) Review Of Systems Except As Marked, All Systems Reviewed And Found Negative. Constitutional: Negative for: Fever, Chills Cardiovascular: Negative for: Chest Pain Respiratory: Positive for: Cough, Shortness of Breath, Wheezing Physical Exam - Physical Exam Appears: Non-toxic, No Acute Distress Skin: Normal Color Eye(s): bilateral: Normal Inspection Neck: Normal ROM, Supple Chest: Symmetrical Cardiovascular: Rhythm Regular Respiratory: Wheezing (diffuse wheezing) Neurological/Psych: Oriented x3 ED Course And Treatment - Laboratory Results Result Diagrams: 12/24/17 15:18 12/24/17 15:18 ECG: Interpreted By Me, Viewed By Me ECG Rhythm: Sinus Rhythm Interpretation Of ECG: No ST/T wave changes Rate From EC O2 Sat by Pulse Oximetry: 96 (RA) Pulse Ox Interpretation: Normal Medical Decision Making Medical Decision Making: Impression: COPD exacerbation Plan: -- Labs -- EKG -- Duoneb 3ml INH x2 -- Rapid flu 400: flu pos, treated, persistent wheezing, will need iv steriods, accepted by dr mooney. Disposition - Disposition Disposition: HOSPITALIZED Disposition Time: 03:00 Condition: STABLE - Clinical Impression Clinical Impression: COPD (chronic obstructive pulmonary disease), Influenza - Scribe Statement The provider has reviewed the documentation as recorded by the Scribe (Annie Machuca) Provider Attestation: All medical record entries made by the Scribe were at my direction and personally dictated by me. I have reviewed the chart and agree that the record accurately reflects my personal performance of the history, physical exam, medical decision making, and the department course for this patient. I have also personally directed, reviewed, and agree with the discharge instructions and disposition. Decision To Admit - Pt Status Changed To: Hospital Disposition Of: Inpatient - Admit Certification Admit to Inpatient:: After my assessment, the patient will require hospitalization for at least two midnights. This is because of the severity of symptoms shown, intensity of services needed, and/or the medical risk in this patient being treated as an outpatient. - InPatient: Physician Admission Certification: I certify that this patient requires 2 or more midnights of care for the following reason:: needs iv sterioids - . Bed Request Type: Telemetry Admitting Physician: Dino Mooney Patient Diagnosis: COPD (chronic obstructive pulmonary disease), Influenza
[2017-12-24 15:24] LABS: BASO % 0.3 % (0.0-2.0); EOS % 0.3 % (0.0-4.0); HEMOGLOBIN 13.9 g/dL (12.0-18.0); LYMPH # 1.2 K/uL (1.0-4.3); LYMPH % 13.3 % (20.0-40.0); MEAN CELL VOLUME 96.8 fL (80.0-94.0); MEAN CORPUSCULAR HEMOGLOBIN 33.2 pg (27.0-31.0); MEAN CORPUSCULAR HGB CONC 34.3 g/dL (33.0-37.0); MONO # 0.4 K/uL (0.0-0.8); MONO % 5.1 % (0.0-10.0); NEUT # 7.1 K/uL (1.8-7.0); RBC 4.19 Mil/uL (4.40-5.90); WHITE BLOOD COUNT 8.8 K/uL (4.8-10.8)
--- NOTE | 2017-12-24 15:35 | RAD ---
HISTORY: chest pain COMPARISON: Chest x-ray performed 11/16/17 TECHNIQUE: Chest PA and lateral FINDINGS: LUNGS: Small bilateral pleural effusions. Mild bibasilar atelectasis/infiltrates. No definite pneumothorax. Hyperinflation may be seen in the setting of COPD. Please note that chest x-ray has limited sensitivity for the detection of pulmonary masses. CARDIOVASCULAR: Heart size appears within normal limits. OSSEOUS STRUCTURES: Degenerative changes of the spine. VISUALIZED UPPER ABDOMEN: Unremarkable. OTHER FINDINGS: None. IMPRESSION: Small bilateral pleural effusions. Mild bibasilar atelectasis/infiltrates. Hyperinflation may be seen in setting of COPD.
[2017-12-24 15:39] LABS: ALB/GLOB RATIO 1.3 (1.0-2.1); ALBUMIN 3.7 g/dL (3.5-5.0); ALT/SGPT 23 U/L (21-72); AST/SGOT 20 U/L (17-59); BLOOD UREA NITROGEN 7 mg/dL (9-20); CALCIUM 8.3 mg/dl (8.6-10.4); GFR AFRICAN-AMERICAN > 60; GFR NON-AFRICAN AMERICAN > 60
[2017-12-24] MEDS ORDERED: Potassium Chloride 20 mEq ER Tab PO STA (15:39)
[2017-12-24] MEDS ORDERED: Albuterol-Ipratrop 3 mg / 0.5 (3 ml) UD ONE ×2 (15:49→22:43)
[2017-12-24] MEDS ORDERED: Potassium Chloride 20 mEq ER Tab PO ONE (16:06)
[2017-12-25] MEDS ORDERED: MethylPREDNISolone 40 mg Vial ONE ×2 (01:06→06:05)
[2017-12-25] MEDS: MethylPREDNISolone 40 mg Vial IVP SCH ×3 (01:08→18:40)
[2017-12-25] MEDS: Albuterol-Ipratrop 3 mg / 0.5 (3 ml) UD INH SCH ×6 (04:54→23:51)
[2017-12-25] MEDS ORDERED: Albuterol-Ipratrop 3 mg / 0.5 (3 ml) UD ONE ×2 (04:55→08:00)
[2017-12-25 08:20] LABS: BASO % 0.1 % (0.0-2.0); HEMOGLOBIN 13.3 g/dL (12.0-18.0); LYMPH # 0.5 K/uL (1.0-4.3); LYMPH % 4.5 % (20.0-40.0); MEAN CELL VOLUME 95.5 fL (80.0-94.0); MEAN CORPUSCULAR HEMOGLOBIN 33.6 pg (27.0-31.0); MEAN CORPUSCULAR HGB CONC 35.2 g/dL (33.0-37.0); MEAN PLATELET VOLUME 8.3 fL (7.2-11.7); MONO # 0.3 K/uL (0.0-0.8); MONO % 2.9 % (0.0-10.0); NEUT # 10.5 K/uL (1.8-7.0); NEUT % 92.5 % (50.0-75.0); PLATELET COUNT 218 K/uL (130-400); RBC 3.95 Mil/uL (4.40-5.90); RED CELL DISTRIBUTION WIDTH 14.8 % (11.5-14.5); WHITE BLOOD COUNT 11.3 K/uL (4.8-10.8)
[2017-12-25 08:39] LABS: ALB/GLOB RATIO 1.2 (1.0-2.1); ALBUMIN 3.3 g/dL (3.5-5.0); ALT/SGPT 15 U/L (21-72); AST/SGOT 16 U/L (17-59); BLOOD UREA NITROGEN 13 mg/dL (9-20); CALCIUM 8.5 mg/dl (8.6-10.4); GFR AFRICAN-AMERICAN > 60; GFR NON-AFRICAN AMERICAN > 60; MAGNESIUM 1.7 mg/dL (1.6-2.3)
[2017-12-25 08:43] LABS: CK-MB 1.89 ng/mL (0.0-3.38)
[2017-12-25 08:59] LABS: BANDS 6 % (0-2); LYMPHOCYTE 7 % (20-40); MONOCYTE 3 % (0-10); NEUTROPHIL 84 % (50-75); OVALOCYTES SLIGHT; PLATELET ESTIMATE NORMAL (NORMAL); TOTAL CELLS COUNTED 100
[2017-12-25] MEDS: Fluticasone-Salmeterol 250-50mcg Diskus INH SCH ×2 (09:33→20:40)
[2017-12-25 11:03] LABS: URINE BILIRUBIN NEGATIVE (NEGATIVE); URINE BLOOD NEGATIVE (NEGATIVE); URINE CLARITY Clear (Clear); URINE COLOR Yellow (YELLOW); URINE GLUCOSE (UA) 1+ mg/dL (Normal); URINE LEUKOCYTE ESTERASE NEG Leu/uL (Negative); URINE NITRATE NEGATIVE (NEGATIVE); URINE PROTEIN NEGATIVE (NEGATIVE); URINE UROBILINOGEN NORMAL mg/dL (0.2-1.0)
[2017-12-25] MEDS: Enoxaparin 40 mg Syringe SC SCH (11:42)
[2017-12-25] MEDS: guaiFENesin 200 mg/10 ml Syrup UD PO SCH ×4 (11:43→21:53)
--- NOTE | 2017-12-25 17:12 | CP.PCM.PN ---
Subjective - Date & Time of Evaluation Date of Evaluation: 12/25/17 Time of Evaluation: 07:00 - Subjective Subjective: PGY2 medicine note for Dr. Gonzalez: Patient was seen and examined at bedside this morning. Patient complains of shortness of breath. Denied chest pain, palpitations. No other complaints at this time. Objective - Vital Signs/Intake and Output Vital Signs (last 24 hours): Temp Pulse Resp BP Pulse Ox 98.0 F 93 H 20 116/76 95 12/25/17 16:05 12/25/17 16:05 12/25/17 16:05 12/25/17 16:05 12/25/17 16:05 - Medications Medications: Current Medications Acetaminophen (Tylenol 325mg Tab) 650 mg PO Q6 PRN PRN Reason: Pain, Mild (1-3) Albuterol/Ipratropium (Duoneb 3 Mg/0.5 Mg (3 Ml) Ud) 3 ml INH RQ4 [facility] Last Admin: 12/25/17 16:05 Dose: 3 ml Amlodipine Besylate (Norvasc) 10 mg PO DAILY [facility] Last Admin: 12/25/17 11:43 Dose: 10 mg Enoxaparin Sodium (Lovenox) 40 mg SC DAILY [facility] Last Admin: 12/25/17 11:42 Dose: 40 mg Gabapentin (Neurontin) 100 mg PO TID [facility] Last Admin: 12/25/17 14:24 Dose: 100 mg Guaifenesin (Robitussin) 200 mg PO QID [facility] Last Admin: 12/25/17 14:24 Dose: 200 mg Methylprednisolone (Solu-Medrol) 40 mg IVP Q6 [facility] Last Admin: 12/25/17 06:04 Dose: 40 mg Montelukast Sodium (Singulair) 10 mg PO [facility] Nicotine (Nicoderm Cq) 1 patch TD DAILY [facility] Last Admin: 12/25/17 11:43 Dose: 1 patch Oseltamivir Phosphate (Tamiflu Cap) 75 mg PO BID [facility] Stop: 12/29/17 22:28 Last Admin: 12/25/17 11:43 Dose: 75 mg Oxycodone/Acetaminophen (Percocet 5/325 Mg Tab) 1 tab PO Q4H PRN PRN Reason: Pain, moderate (4-7) Stop: 12/28/17 18:01 Fluticasone/Salmeterol (Advair Diskus 250/50) 1 puff INH RQ12 [facility] Last Admin: 12/25/17 09:33 Dose: 1 puff Sertraline HCl (Zoloft) 100 mg PO DAILY [facility] Last Admin: 12/25/17 11:43 Dose: 100 mg Tamsulosin HCl (Flomax) 0.4 mg PO DAILY [facility] Last Admin: 12/25/17 11:42 Dose: 0.4 mg Zolpidem Tartrate (Ambien) 5 mg PO HS PRN PRN Reason: Insomnia - Labs Labs: 12/25/17 08:14 12/25/17 08:14 PT 11.0 SECONDS (9.7-12.2) 12/24/17 15:18 INR 1.0 12/24/17 15:18 APTT 32 SECONDS (21-34) 12/24/17 15:18 - Constitutional Appears: Non-toxic, No Acute Distress - Head Exam Head Exam: NORMAL INSPECTION - Eye Exam Eye Exam: EOMI - ENT Exam ENT Exam: Mucous Membranes Moist - Respiratory Exam Respiratory Exam: Decreased Breath Sounds, Wheezes, NORMAL BREATHING PATTERN. absent: Accessory Muscle Use - Cardiovascular Exam Cardiovascular Exam: REGULAR RHYTHM, +S1, +S2 - GI/Abdominal Exam GI & Abdominal Exam: Soft, Normal Bowel Sounds. absent: Distended, Guarding, Tenderness - Extremities Exam Extremities Exam: Normal Inspection. absent: Calf Tenderness, Pedal Edema - Back Exam Back Exam: NORMAL INSPECTION. absent: CVA tenderness (L), CVA tenderness (R), paraspinal tenderness - Neurological Exam Neurological Exam: Alert, Awake, Oriented x3 Neuro motor strength exam: Left Upper Extremity: 5, Right Upper Extremity: 5, Left Lower Extremity: 5, Right Lower Extremity: 5 - Psychiatric Exam Psychiatric exam: Normal Affect, Normal Mood - Skin Skin Exam: Dry, Intact, Normal Color, Warm Assessment and Plan - Assessment and Plan (Free Text) Assessment: COPD with acute exacerbation; acute on chronic; not on home O2 duoneb Q4h Solumedrol 40mg Q6H Robitussin 200mg PO QID Patient advised again his need to quit smoking. Singulair 10mg PO HS Percocet 1 tab PO Q4 prn Advair Q12 f/u echo f/u am labs Influenza Tamiflu 75mg BID x 5 days Tobacco abuse; E Cigarette Patient on nicodern patch, advised again his need to quit smoking. Hypertension Norvasc 10mg PO daily Major depressive disorder Zoloft 100mg PO daily Patient denies any depression, suicidal ideation. Nocturia associated with benign prostatic hyperplasia Flomax 0.4 mg PO daily Insomnia 5 mg PO HS Prophylactic measure Lovenox 40mg SC daily SCDs Pepcid 20mg bid Tylenol prn All management as per Dr. Gonzalez. Case discussed with Dr. Gonzalez
[2017-12-25] MEDS: Oxycodone/Acetaminophen 5/325 mg Tab PO PRN (18:39)
--- NOTE | 2017-12-25 19:38 | CT ---
EXAM: CT Orbits, Sella, Posterior Fossa or Auditory System Without Intravenous Contrast EXAM DATE/TIME: Exam ordered 12/25/2017 5:45 PM CLINICAL HISTORY: 57 years old, male; Pain; Ocular pain; Right; Additional info: Ear pain TECHNIQUE: Axial computed tomography images of the orbits, sella, posterior fossa or auditory system without intravenous contrast. All CT scans at this facility use one or more dose reduction techniques, viz.: automated exposure control; ma/kV adjustment per patient size (including targeted exams where dose is matched to indication; i.e. head); or iterative reconstruction technique. Coronal and sagittal reformatted images were created and reviewed. COMPARISON: No relevant prior studies available. FINDINGS: Sella: Unremarkable. Mastoid air cells: There is fluid noted within the right mastoid air cells. Auditory system: A small amount of soft tissue thickening surrounds the ossicles in the right middle ear cavity. The ossicles appear normal. The semicircular canals are normal. The tegmen tympani and scutum are normal without evidence of erosion. The internal auditory canal appears normal. The cochlea appears normal. Orbits: Unremarkable Bones/joints: No acute fracture. Soft tissues: Unremarkable. Paranasal sinuses: Mucosal thickening is noted within the left maxillary sinus. Mucosal thickening is noted in the left ethmoid air cells extending into the base of the left frontal sinus. Mucosal thickening is noted within the sphenoid sinus. The ostiomeatal complexes are patent bilaterally. IMPRESSION: 1. Acute right mastoiditis with fluid/soft tissue extending into the middle ear cavity suggesting accompanying otitis media 2. Chronic paranasal sinusitis
[2017-12-26] MEDS: MethylPREDNISolone 40 mg Vial IVP SCH ×4 (00:38→18:10)
[2017-12-26] MEDS: Albuterol-Ipratrop 3 mg / 0.5 (3 ml) UD INH SCH ×5 (03:02→20:35)
[2017-12-26] MEDS: Fluticasone-Salmeterol 250-50mcg Diskus INH SCH ×2 (07:30→20:35)
--- NOTE | 2017-12-26 07:36 | CP.PCM.PN ---
Subjective - Date & Time of Evaluation Date of Evaluation: 12/26/17 Time of Evaluation: 07:00 - Subjective Subjective: PGY2 medicine note for Dr. Gonzalez: Patient was seen and examined at bedside this morning. Patient complains of shortness of breath and states he is still wheezing. He admits to body/muscle aches. He states that Dr. Bender was just at bedside to see him. He reports that he has right sided ear pain which was draining fluid 4 days ago. He admits to chills but denied fevers. He is also reporting 4 episodes of watery diarrhea. Denied chest pain, palpitations. No other complaints at this time. Objective - Vital Signs/Intake and Output Vital Signs (last 24 hours): Temp Pulse Resp BP Pulse Ox 97.8 F 91 H 20 122/73 98 12/25/17 23:45 12/25/17 23:45 12/25/17 23:45 12/25/17 23:45 12/25/17 23:45 Intake and Output: 12/26/17 12/26/17 06:59 18:59 Intake Total 500 Balance 500 - Medications Medications: Current Medications Acetaminophen (Tylenol 325mg Tab) 650 mg PO Q6 PRN PRN Reason: Pain, Mild (1-3) Albuterol/Ipratropium (Duoneb 3 Mg/0.5 Mg (3 Ml) Ud) 3 ml INH RQ4 [facility] Last Admin: 12/26/17 03:02 Dose: Not Given Amlodipine Besylate (Norvasc) 10 mg PO DAILY [facility] Last Admin: 12/25/17 11:43 Dose: 10 mg Amoxicillin (Amoxil 500 Mg Cap) 500 mg PO Q8 [facility] Enoxaparin Sodium (Lovenox) 40 mg SC DAILY [facility] Last Admin: 12/25/17 11:42 Dose: 40 mg Gabapentin (Neurontin) 100 mg PO TID [facility] Last Admin: 12/25/17 18:39 Dose: 100 mg Guaifenesin (Robitussin) 200 mg PO QID [facility] Last Admin: 12/25/17 21:53 Dose: 200 mg Methylprednisolone (Solu-Medrol) 40 mg IVP Q6 [facility] Last Admin: 12/26/17 05:35 Dose: 40 mg Montelukast Sodium (Singulair) 10 mg PO HS [facility] Last Admin: 12/25/17 21:53 Dose: 10 mg Nicotine (Nicoderm Cq) 1 patch TD DAILY [facility] Last Admin: 12/25/17 11:43 Dose: 1 patch Oseltamivir Phosphate (Tamiflu Cap) 75 mg PO BID [facility] Stop: 12/29/17 22:28 Last Admin: 12/25/17 18:39 Dose: 75 mg Oxycodone/Acetaminophen (Percocet 5/325 Mg Tab) 1 tab PO Q4H PRN PRN Reason: Pain, moderate (4-7) Stop: 12/28/17 18:01 Last Admin: 12/25/17 18:39 Dose: 1 tab Fluticasone/Salmeterol (Advair Diskus 250/50) 1 puff INH RQ12 [facility] Last Admin: 12/25/17 20:40 Dose: 1 puff Sertraline HCl (Zoloft) 100 mg PO DAILY [facility] Last Admin: 12/25/17 11:43 Dose: 100 mg Tamsulosin HCl (Flomax) 0.4 mg PO DAILY [facility] Last Admin: 12/25/17 11:42 Dose: 0.4 mg Zolpidem Tartrate (Ambien) 5 mg PO HS PRN PRN Reason: Insomnia Last Admin: 12/26/17 00:42 Dose: 5 mg - Labs Labs: 12/25/17 08:14 12/25/17 08:14 PT 11.0 SECONDS (9.7-12.2) 12/24/17 15:18 INR 1.0 12/24/17 15:18 APTT 32 SECONDS (21-34) 12/24/17 15:18 - Constitutional Appears: Non-toxic, No Acute Distress, Cachectic - Head Exam Head Exam: ATRAUMATIC, NORMAL INSPECTION - Eye Exam Eye Exam: EOMI Pupil Exam: NORMAL ACCOMODATION - ENT Exam ENT Exam: Mucous Membranes Moist - Respiratory Exam Respiratory Exam: Decreased Breath Sounds, Wheezes, NORMAL BREATHING PATTERN. absent: Accessory Muscle Use, Respiratory Distress - Cardiovascular Exam Cardiovascular Exam: REGULAR RHYTHM, +S1, +S2 - GI/Abdominal Exam GI & Abdominal Exam: Soft, Normal Bowel Sounds. absent: Distended, Firm, Guarding, Tenderness - Extremities Exam Extremities Exam: Normal Inspection. absent: Calf Tenderness, Pedal Edema - Back Exam Back Exam: absent: CVA tenderness (L), CVA tenderness (R), NORMAL INSPECTION, paraspinal tenderness - Neurological Exam Neurological Exam: Alert, Awake, CN II-XII Intact, Normal Gait, Oriented x3 Neuro motor strength exam: Left Upper Extremity: 5, Right Upper Extremity: 5, Left Lower Extremity: 5, Right Lower Extremity: 5 - Psychiatric Exam Psychiatric exam: Normal Affect, Normal Mood - Skin Skin Exam: Dry, Intact, Normal Color, Warm Assessment and Plan - Assessment and Plan (Free Text) Assessment: COPD with acute exacerbation; acute on chronic; not on home O2 Duoneb Q4h Solumedrol 40mg Q6H Robitussin 200mg PO QID Singulair 10mg PO HS Percocet 1 tab PO Q4 prn Advair Q12 [facility] with breathing treatment Patient advised again his need to quit smoking. f/u am labs Influenza Tamiflu 75mg BID x 5 days Sinusitis/Otitis Media Amoxicillin 500mg PO Q8 hours (started 2/1 am) - continue for [address] Bender consulted help appreciated - f/u recs CT internal auditory canal - Acute right mastoiditis with fluid/soft tissues extending into the middle ear cavity suggesting accompanying otitis media. chronic paranasal sinusitis. Hyponatremia Na 129 f/u urine os, serum os, urine na f/u repeat Na Diarrhea 4x, watery f/u stool studies Tobacco abuse; E Cigarette Patient on nicoderm patch, advised again his need to quit smoking. Hypertension Norvasc 10mg PO daily Major depressive disorder Zoloft 100mg PO daily Patient denies any depression, suicidal ideation. Nocturia associated with benign prostatic hyperplasia Flomax 0.4 mg PO daily Insomnia 5 mg PO HS Prophylactic measure Lovenox 40mg SC daily SCDs Pepcid 20mg bid Tylenol prn All management as per Dr. Gonzalez. Case discussed with Dr. Gonzalez
[2017-12-26 07:39] LABS: BASO % 0.1 % (0.0-2.0); HEMOGLOBIN 13.1 g/dL (12.0-18.0); LYMPH # 0.4 K/uL (1.0-4.3); MEAN CELL VOLUME 96.5 fL (80.0-94.0); MEAN CORPUSCULAR HEMOGLOBIN 33.9 pg (27.0-31.0); MEAN CORPUSCULAR HGB CONC 35.1 g/dL (33.0-37.0); MEAN PLATELET VOLUME 8.4 fL (7.2-11.7); MONO # 0.2 K/uL (0.0-0.8); MONO % 1.9 % (0.0-10.0); NEUT # 12.2 K/uL (1.8-7.0); PLATELET COUNT 199 K/uL (130-400); RBC 3.86 Mil/uL (4.40-5.90); RED CELL DISTRIBUTION WIDTH 14.8 % (11.5-14.5); WHITE BLOOD COUNT 12.9 K/uL (4.8-10.8)
--- NOTE | 2017-12-26 07:41 | HP ---
DATE: 12/24/2017 HISTORY OF PRESENT ILLNESS: 57-year old male admitted to hospital with chief complaint of shortness of breath, weakness, fatigue, tiredness, fever. Patient thought to have flu. Patient came to the hospital for admission. PHYSICAL EXAMINATION: GENERAL: Patient is awake, alert and oriented, short of breath. VITAL SIGNS: Temperature 98, pulse 90. HEENT: Within normal limits. NECK: Supple. CHEST: Symmetrical. HEART: Regular. ABDOMEN: Soft. EXTREMITIES: No edema. IMPRESSION: Patient suffers from questionable chronic obstructive pulmonary disease, influenza. PLAN: Patient to get bed rest, supportive care, bronchodilators. Dino Gonzalez MD
[2017-12-26 07:54] LABS: ALB/GLOB RATIO 1.2 (1.0-2.1); ALBUMIN 3.4 g/dL (3.5-5.0); ALT/SGPT 15 U/L (21-72); AST/SGOT 20 U/L (17-59); BLOOD UREA NITROGEN 12 mg/dL (9-20); CALCIUM 8.8 mg/dl (8.6-10.4); GFR AFRICAN-AMERICAN > 60; GFR NON-AFRICAN AMERICAN > 60; MAGNESIUM 1.7 mg/dL (1.6-2.3)
[2017-12-26] MEDS: guaiFENesin 200 mg/10 ml Syrup UD PO SCH ×4 (11:05→22:03)
[2017-12-26] MEDS: Enoxaparin 40 mg Syringe SC SCH (11:05)
[2017-12-26] MEDS: Oxycodone/Acetaminophen 5/325 mg Tab PO PRN ×3 (11:13→22:08)
[2017-12-26 11:57] LABS: BANDS 17 % (0-2); LYMPHOCYTE 4 % (20-40); NEUTROPHIL 79 % (50-75); PLATELET ESTIMATE NORMAL (NORMAL); TOTAL CELLS COUNTED 100
--- NOTE | 2017-12-26 12:24 | CON ---
DATE: 12/25/2017 REQUESTING PHYSICIAN: Dino Gonzalez MD REASON FOR CONSULTATION: Ear pain and ear discharge. HISTORY OF PRESENT ILLNESS: This is a nice 57-year-old male, who for the past few days has been having right ear pain and discharge, it is constant, [id number] in intensity with a little bit of hearing loss. PAST MEDICAL HISTORY: As noted in the chart by me. MEDICATIONS: As noted in the chart by me. ALLERGIES: NO KNOWN DRUG ALLERGIES. PHYSICAL EXAMINATION: HEAD: Atraumatic and normocephalic. FACE: Good facial movements bilaterally. CONSTITUTIONAL: Well fed, well nourished. COMMUNICATION: Communicates well appropriately. EXTERNAL NOSE AND EARS: No masses. No lesions. No erythema. No edema. EARS: TM intact. No masses. No lesions. No erythema. No edema. Mild fluid noted behind the right TM. There is pain on the right TMJ upon palpation. ORAL CAVITY AND OROPHARYNX: No masses. No lesions. No erythema. No edema. LIPS AND GUMS: No masses. No lesions. No erythema. No edema. INTERNAL NOSE: Deviated septum. Mild erythema and edema of the mucosa. NECK: Supple. THYROID: No thyromegaly. No goiter. LYMPH NODES: No lymphadenopathy of the neck. RADIOLOGY: CAT scan was reviewed by me, which shows inflammation of the sinus mucosa as well as some fluid in the right middle ear space. ASSESSMENT: 1. Deviated septum. 2. The patient has the flu. 3. Otitis media. 4. Ear pain. 5. Temporomandibular joint dysfunction. PLAN: The patient should be placed on a soft diet and have a warm compress placed over the right TMJ. He should followup in the office as an outpatient. The patient has already given antibiotics for the ear infection. No ear discharge was noted. Jose Bender MD
[2017-12-26] MEDS: Acetylcysteine 20% Inhal Soln (4ml) INH SCH ×3 (13:26→20:35)
[2017-12-26 15:57] LABS: OSMOLALITY,URINE 685 mosm/kg (300-1000)
[2017-12-26 19:21] LABS: C DIFF TOXIN A B NEGATIVE (NEGATIVE)
[2017-12-26 23:53] LABS: FECAL LEUKOCYTES NEGATIVE (NEGATIVE)
[2017-12-27] MEDS: Albuterol-Ipratrop 3 mg / 0.5 (3 ml) UD INH SCH ×7 (00:03→20:02)
[2017-12-27] MEDS: MethylPREDNISolone 40 mg Vial IVP SCH ×5 (00:06→23:43)
[2017-12-27] MEDS: Acetylcysteine 20% Inhal Soln (4ml) INH SCH ×4 (02:20→20:01)
--- NOTE | 2017-12-27 04:00 | CARD ---
APPROVED REPORT EKG Measurement Heart [id number] MD [id number] <Conclusion> Normal sinus rhythm Possible Anterior infarct, age undetermined Abnormal ECG
[2017-12-27] MEDS: Fluticasone-Salmeterol 250-50mcg Diskus INH SCH ×2 (07:30→20:04)
[2017-12-27 07:58] LABS: ALB/GLOB RATIO 1.2 (1.0-2.1); ALBUMIN 3.7 g/dL (3.5-5.0); ALT/SGPT 23 U/L (21-72); AST/SGOT 20 U/L (17-59); BLOOD UREA NITROGEN 12 mg/dL (9-20); CALCIUM 9.1 mg/dl (8.6-10.4); GFR AFRICAN-AMERICAN > 60; GFR NON-AFRICAN AMERICAN > 60; MAGNESIUM 1.8 mg/dL (1.6-2.3)
[2017-12-27] MEDS: guaiFENesin 200 mg/10 ml Syrup UD PO SCH ×4 (09:22→21:35)
[2017-12-27] MEDS: Enoxaparin 40 mg Syringe SC SCH (09:22)
[2017-12-27] MEDS: Oxycodone/Acetaminophen 5/325 mg Tab PO PRN ×4 (09:28→23:43)
--- NOTE | 2017-12-27 10:40 | CP.PCM.PN ---
Subjective - Date & Time of Evaluation Date of Evaluation: 12/27/17 Time of Evaluation: 09:11 - Subjective Subjective: PGY 2 Medicine Note- Dr. Gonzalez's service Patient seen and examined in no apparent acute distress. Patient states that he still has pain when he coughs. He is still experiencing body chills as well. Patient inquired about obtaining a nebulizer when he is discharged. He denies headaches, subjective fevers or chills, nausea, vomiting or diarrhea at this time. Objective - Vital Signs/Intake and Output Vital Signs (last 24 hours): Temp Pulse Resp BP Pulse Ox 97.7 F 86 20 128/80 95 12/27/17 07:35 12/27/17 07:35 12/27/17 07:35 12/27/17 07:35 12/27/17 07:35 Intake and Output: 12/27/17 12/27/17 06:59 18:59 Intake Total 250 Balance 250 - Medications Medications: Current Medications Acetaminophen (Tylenol 325mg Tab) 650 mg PO Q6 PRN PRN Reason: Pain, Mild (1-3) Acetylcysteine (Acetylcysteine 20%) 4 ml INH RQ6 [facility] Last Admin: 12/27/17 07:30 Dose: 4 ml Albuterol/Ipratropium (Duoneb 3 Mg/0.5 Mg (3 Ml) Ud) 3 ml INH RQ4 [facility] Last Admin: 12/27/17 08:11 Dose: 3 ml Amlodipine Besylate (Norvasc) 10 mg PO DAILY [facility] Last Admin: 12/27/17 09:22 Dose: 10 mg Amoxicillin (Amoxil 500 Mg Cap) 500 mg PO Q8 [facility] Last Admin: 12/27/17 05:27 Dose: 500 mg Enoxaparin Sodium (Lovenox) 40 mg SC DAILY [facility] Last Admin: 12/27/17 09:22 Dose: 40 mg Famotidine (Pepcid) 20 mg PO BID [facility] Last Admin: 12/27/17 09:23 Dose: 20 mg Gabapentin (Neurontin) 100 mg PO TID [facility] Last Admin: 12/27/17 09:22 Dose: 100 mg Guaifenesin (Robitussin) 200 mg PO QID [facility] Last Admin: 12/27/17 09:22 Dose: 200 mg Methylprednisolone (Solu-Medrol) 40 mg IVP Q6 [facility] Last Admin: 12/27/17 05:27 Dose: 40 mg Montelukast Sodium (Singulair) 10 mg PO HS [facility] Last Admin: 12/26/17 22:03 Dose: 10 mg Nicotine (Nicoderm Cq) 1 patch TD DAILY [facility] Last Admin: 12/27/17 09:23 Dose: 1 patch Oseltamivir Phosphate (Tamiflu Cap) 75 mg PO BID [facility] Stop: 12/29/17 22:28 Last Admin: 12/27/17 09:22 Dose: 75 mg Oxycodone/Acetaminophen (Percocet 5/325 Mg Tab) 1 tab PO Q4H PRN PRN Reason: Pain, moderate (4-7) Stop: 12/28/17 18:01 Last Admin: 12/27/17 09:28 Dose: 1 tab Fluticasone/Salmeterol (Advair Diskus 250/50) 1 puff INH RQ12 [facility] Last Admin: 12/27/17 07:30 Dose: 1 puff Sertraline HCl (Zoloft) 100 mg PO DAILY [facility] Last Admin: 12/27/17 09:22 Dose: 100 mg Tamsulosin HCl (Flomax) 0.4 mg PO DAILY [facility] Last Admin: 12/27/17 09:22 Dose: 0.4 mg Zolpidem Tartrate (Ambien) 5 mg PO HS PRN PRN Reason: Insomnia Last Admin: 12/26/17 00:42 Dose: 5 mg - Labs Labs: 12/26/17 07:27 12/27/17 07:35 PT 11.0 SECONDS (9.7-12.2) 12/24/17 15:18 INR 1.0 12/24/17 15:18 APTT 32 SECONDS (21-34) 12/24/17 15:18 - Constitutional Appears: Non-toxic, No Acute Distress - Head Exam Head Exam: ATRAUMATIC, NORMAL INSPECTION - Eye Exam Eye Exam: EOMI, PERRL - ENT Exam ENT Exam: Mucous Membranes Moist - Neck Exam Neck Exam: Full ROM - Respiratory Exam Respiratory Exam: Rales, Wheezes, NORMAL BREATHING PATTERN. absent: Respiratory Distress - Cardiovascular Exam Cardiovascular Exam: +S1, +S2 - GI/Abdominal Exam GI & Abdominal Exam: Soft, Normal Bowel Sounds - Extremities Exam Extremities Exam: Full ROM - Back Exam Back Exam: Full ROM - Neurological Exam Neurological Exam: Alert, Awake, Oriented x3 - Psychiatric Exam Psychiatric exam: Normal Affect, Normal Mood - Skin Skin Exam: Dry, Warm Assessment and Plan - Assessment and Plan (Free Text) Assessment: COPD with acute exacerbation; acute on chronic; not on home O2 Duoneb Q4h Solumedrol 40mg Q6H Robitussin 200mg PO QID Singulair 10mg PO HS Percocet 1 tab PO Q4 prn Advair Q12 Mucomyst with breathing treatment Patient advised again his need to quit smoking. f/u am labs Recommendations for nebulizer at home. Patient needs help obtaining this upon discharge. Influenza Tamiflu 75mg BID x 5 days Started on 12/25. Today is day 3 Sinusitis/Otitis Media Amoxicillin 500mg PO Q8 hours (started 2/ am) - continue for [address] Bender consulted help appreciated - Recommendations for warm compresses over right TMJ. F/U outpatient CT internal auditory canal - Acute right mastoiditis with fluid/soft tissues extending into the middle ear cavity suggesting accompanying otitis media. chronic paranasal sinusitis. Hyponatremia Resolved Na 133 f/u urine os 685, serum os 285, urine na 27 Diarrhea Improved Stool leukocytes and c diff negative Tobacco abuse; E-Cigarette Patient on nicoderm patch, advised again his need to quit smoking. Hypertension Norvasc 10mg PO daily Major depressive disorder Zoloft 100mg PO daily Patient denies any depression, suicidal ideation. Nocturia associated with benign prostatic hyperplasia Flomax 0.4 mg PO daily Insomnia 5 mg PO HS Prophylactic measure Lovenox 40mg SC daily SCD[facility] Pepcid 20mg bid Tylenol prn All management as per Dr. Gonzalez. Case discussed with Dr. Gonzalez
[2017-12-27 12:59] LABS: BASO % 0.1 % (0.0-2.0); HEMOGLOBIN 13.1 g/dL (12.0-18.0); LYMPH # 0.6 K/uL (1.0-4.3); LYMPH % 3.5 % (20.0-40.0); MEAN CELL VOLUME 96.7 fL (80.0-94.0); MEAN CORPUSCULAR HEMOGLOBIN 33.1 pg (27.0-31.0); MEAN CORPUSCULAR HGB CONC 34.2 g/dL (33.0-37.0); MEAN PLATELET VOLUME 9.1 fL (7.2-11.7); MONO # 0.5 K/uL (0.0-0.8); MONO % 3.1 % (0.0-10.0); NEUT # 14.8 K/uL (1.8-7.0); NEUT % 93.3 % (50.0-75.0); PLATELET COUNT 236 K/uL (130-400); RBC 3.97 Mil/uL (4.40-5.90); RED CELL DISTRIBUTION WIDTH 15.1 % (11.5-14.5); WHITE BLOOD COUNT 15.9 K/uL (4.8-10.8)
[2017-12-27 13:22] LABS: BANDS 5 % (0-2); LYMPHOCYTE 3 % (20-40); MONOCYTE 1 % (0-10); NEUTROPHIL 91 % (50-75); PLATELET ESTIMATE NORMAL (NORMAL); TOTAL CELLS COUNTED 100
[2017-12-28] MEDS: Albuterol-Ipratrop 3 mg / 0.5 (3 ml) UD INH SCH ×6 (00:27→20:27)
[2017-12-28] MEDS: Acetylcysteine 20% Inhal Soln (4ml) INH SCH ×3 (04:17→20:27)
[2017-12-28] MEDS: MethylPREDNISolone 40 mg Vial IVP SCH ×4 (05:28→18:27)
[2017-12-28] MEDS: Oxycodone/Acetaminophen 5/325 mg Tab PO PRN ×2 (05:32→15:22)
[2017-12-28] MEDS: Fluticasone-Salmeterol 250-50mcg Diskus INH SCH ×2 (07:21→20:27)
[2017-12-28 08:10] LABS: HEMOGLOBIN 12.7 g/dL (12.0-18.0); LYMPH # 0.4 K/uL (1.0-4.3); LYMPH % 3.3 % (20.0-40.0); MEAN CELL VOLUME 95.3 fL (80.0-94.0); MEAN CORPUSCULAR HEMOGLOBIN 33.3 pg (27.0-31.0); MEAN CORPUSCULAR HGB CONC 34.9 g/dL (33.0-37.0); MEAN PLATELET VOLUME 8.4 fL (7.2-11.7); MONO # 0.4 K/uL (0.0-0.8); MONO % 2.9 % (0.0-10.0); NEUT % 93.8 % (50.0-75.0); NRBC % 0.1 % (0.0-2.0); PLATELET COUNT 217 K/uL (130-400); RBC 3.82 Mil/uL (4.40-5.90); RED CELL DISTRIBUTION WIDTH 14.6 % (11.5-14.5); WHITE BLOOD COUNT 12.8 K/uL (4.8-10.8)
[2017-12-28 08:44] LABS: ALB/GLOB RATIO 1.3 (1.0-2.1); ALBUMIN 3.6 g/dL (3.5-5.0); ALT/SGPT 20 U/L (21-72); AST/SGOT 23 U/L (17-59); BLOOD UREA NITROGEN 15 mg/dL (9-20); GFR AFRICAN-AMERICAN > 60; GFR NON-AFRICAN AMERICAN > 60; MAGNESIUM 1.9 mg/dL (1.6-2.3)
[2017-12-28] MEDS: Enoxaparin 40 mg Syringe SC SCH (09:45)
[2017-12-28] MEDS: guaiFENesin 200 mg/10 ml Syrup UD PO SCH ×4 (09:45→22:32)
[2017-12-28 10:49] LABS: ANISOCYTOSIS SLIGHT; BANDS 2 % (0-2); LYMPHOCYTE 6 % (20-40); MONOCYTE 3 % (0-10); NEUTROPHIL 85 % (50-75); PLATELET ESTIMATE NORMAL (NORMAL); REACTIVE LYMPHOCYTES 4 % (0-0); TOTAL CELLS COUNTED 100
[2017-12-28] MEDS ORDERED: Oxycodone/Acetaminophen 5/325 mg Tab PO ONE (22:15)
[2017-12-29] MEDS: Albuterol-Ipratrop 3 mg / 0.5 (3 ml) UD INH SCH ×5 (00:43→20:41)
[2017-12-29] MEDS: Acetylcysteine 20% Inhal Soln (4ml) INH SCH ×2 (01:00→20:41)
[2017-12-29] MEDS: MethylPREDNISolone 40 mg Vial IVP SCH ×5 (05:08→23:58)
[2017-12-29] MEDS: Fluticasone-Salmeterol 250-50mcg Diskus INH SCH ×2 (08:46→20:41)
[2017-12-29 09:20] LABS: BASO % 0.3 % (0.0-2.0); HEMOGLOBIN 13.5 g/dL (12.0-18.0); LYMPH # 0.6 K/uL (1.0-4.3); MEAN CELL VOLUME 95.6 fL (80.0-94.0); MEAN CORPUSCULAR HGB CONC 34.5 g/dL (33.0-37.0); MEAN PLATELET VOLUME 8.6 fL (7.2-11.7); MONO # 0.3 K/uL (0.0-0.8); MONO % 3.2 % (0.0-10.0); NEUT # 9.4 K/uL (1.8-7.0); NEUT % 90.5 % (50.0-75.0); PLATELET COUNT 239 K/uL (130-400); RBC 4.07 Mil/uL (4.40-5.90); RED CELL DISTRIBUTION WIDTH 14.8 % (11.5-14.5); WHITE BLOOD COUNT 10.4 K/uL (4.8-10.8)
[2017-12-29 09:37] LABS: ALB/GLOB RATIO 1.2 (1.0-2.1); ALBUMIN 3.6 g/dL (3.5-5.0); ALT/SGPT 21 U/L (21-72); AST/SGOT 22 U/L (17-59); BLOOD UREA NITROGEN 18 mg/dL (9-20); CALCIUM 8.7 mg/dl (8.6-10.4); GFR AFRICAN-AMERICAN > 60; GFR NON-AFRICAN AMERICAN > 60; MAGNESIUM 1.9 mg/dL (1.6-2.3)
[2017-12-29] MEDS: guaiFENesin 200 mg/10 ml Syrup UD PO SCH ×4 (10:20→22:23)
[2017-12-29] MEDS: Enoxaparin 40 mg Syringe SC SCH (10:21)
[2017-12-29 10:54] LABS: BANDS 6 % (0-2); LYMPHOCYTE 8 % (20-40); MONOCYTE 3 % (0-10); NEUTROPHIL 83 % (50-75); OVALOCYTES SLIGHT; PLATELET ESTIMATE NORMAL (NORMAL); TOTAL CELLS COUNTED 100
[2017-12-29] MEDS: Oxycodone/Acetaminophen 5/325 mg Tab PO PRN ×2 (18:31→23:58)
[2017-12-30] MEDS: Albuterol-Ipratrop 3 mg / 0.5 (3 ml) UD INH SCH ×2 (00:59→02:02)
[2017-12-30] MEDS: Acetylcysteine 20% Inhal Soln (4ml) INH SCH ×4 (00:59→20:35)
[2017-12-30] MEDS ORDERED: Albuterol-Ipratrop 3 mg / 0.5 (3 ml) UD ONE (02:01)
[2017-12-30] MEDS: MethylPREDNISolone 40 mg Vial IVP SCH ×4 (05:26→23:42)
[2017-12-30] MEDS: Oxycodone/Acetaminophen 5/325 mg Tab PO PRN ×4 (05:31→23:41)
[2017-12-30 07:52] LABS: BASO % 0.1 % (0.0-2.0); HEMOGLOBIN 13.2 g/dL (12.0-18.0); LYMPH # 0.5 K/uL (1.0-4.3); LYMPH % 2.8 % (20.0-40.0); MEAN CELL VOLUME 95.4 fL (80.0-94.0); MEAN CORPUSCULAR HEMOGLOBIN 33.2 pg (27.0-31.0); MEAN CORPUSCULAR HGB CONC 34.8 g/dL (33.0-37.0); MEAN PLATELET VOLUME 8.8 fL (7.2-11.7); MONO % 5.3 % (0.0-10.0); NEUT # 17.6 K/uL (1.8-7.0); NEUT % 91.8 % (50.0-75.0); PLATELET COUNT 255 K/uL (130-400); RBC 3.97 Mil/uL (4.40-5.90); RED CELL DISTRIBUTION WIDTH 14.8 % (11.5-14.5)
[2017-12-30 07:58] LABS: ALB/GLOB RATIO 1.3 (1.0-2.1); ALBUMIN 3.5 g/dL (3.5-5.0); ALT/SGPT 21 U/L (21-72); AST/SGOT 22 U/L (17-59); BLOOD UREA NITROGEN 17 mg/dL (9-20); CALCIUM 8.5 mg/dl (8.6-10.4); GFR AFRICAN-AMERICAN > 60; GFR NON-AFRICAN AMERICAN > 60; MAGNESIUM 1.8 mg/dL (1.6-2.3)
[2017-12-30 08:01] LABS: WHITE BLOOD COUNT 19.2 K/uL (4.8-10.8)
[2017-12-30 08:52] LABS: BANDS 2 % (0-2); LYMPHOCYTE 4 % (20-40); MONOCYTE 3 % (0-10); NEUTROPHIL 91 % (50-75); TOTAL CELLS COUNTED 100
[2017-12-30 08:54] LABS: PLATELET ESTIMATE NORMAL (NORMAL)
[2017-12-30] MEDS: Enoxaparin 40 mg Syringe SC SCH (09:14)
--- NOTE | 2017-12-30 10:25 | CP.PCM.PN ---
Subjective - Date & Time of Evaluation Date of Evaluation: 12/30/17 Time of Evaluation: 09:30 - Subjective Subjective: PGY 2 Medicine Note- Dr. Gonzalez's service Patient seen and examined in no immediate acute distress. Patient states that his legs appear swollen. He denies tenderness to the affected area. He first noticed this over the weekend. Patient states that he has been ambulating without difficulty. Patient sates that is coughing has improved thanks to the breathing treatments. He does not feel as run down as he did last week either. Objective - Vital Signs/Intake and Output Vital Signs (last 24 hours): Temp Pulse Resp BP Pulse Ox 97.9 F 95 H 20 145/83 97 12/30/17 09:39 12/30/17 09:39 12/30/17 09:39 12/30/17 09:39 12/30/17 09:39 - Medications Medications: Current Medications Acetaminophen (Tylenol 325mg Tab) 650 mg PO Q6 PRN PRN Reason: Pain, Mild (1-3) Last Admin: 12/29/17 13:54 Dose: 650 mg Acetylcysteine (Acetylcysteine 20%) 4 ml INH RQ6 [facility] Last Admin: 12/30/17 07:13 Dose: Not Given Amlodipine Besylate (Norvasc) 10 mg PO DAILY [facility] Last Admin: 12/30/17 09:13 Dose: 10 mg Amoxicillin (Amoxil 500 Mg Cap) 500 mg PO Q8 [facility] Last Admin: 12/30/17 05:26 Dose: 500 mg Enoxaparin Sodium (Lovenox) 40 mg SC DAILY [facility] Last Admin: 12/30/17 09:14 Dose: 40 mg Famotidine (Pepcid) 20 mg PO BID [facility] Last Admin: 12/30/17 09:13 Dose: 20 mg Gabapentin (Neurontin) 100 mg PO TID [facility] Last Admin: 12/30/17 09:13 Dose: 100 mg Guaifenesin (Robitussin) 200 mg PO QID [facility] Last Admin: 12/29/17 22:23 Dose: 200 mg Methylprednisolone (Solu-Medrol) 40 mg IVP Q6 [facility] Last Admin: 12/30/17 05:26 Dose: 40 mg Montelukast Sodium (Singulair) 10 mg PO HS [facility] Last Admin: 12/29/17 22:23 Dose: 10 mg Nicotine (Nicoderm Cq) 1 patch TD DAILY [facility] Last Admin: 12/30/17 09:14 Dose: 1 patch Oxycodone/Acetaminophen (Percocet 5/325 Mg Tab) 1 tab PO Q4H PRN PRN Reason: Pain, moderate (4-7) Stop: 01/04/18 17:21 Last Admin: 12/30/17 05:31 Dose: 1 tab Fluticasone/Salmeterol (Advair Diskus 250/50) 1 puff INH RQ12 [facility] Last Admin: 12/29/17 20:41 Dose: 1 puff Sertraline HCl (Zoloft) 100 mg PO DAILY [facility] Last Admin: 12/30/17 09:14 Dose: 100 mg Tamsulosin HCl (Flomax) 0.4 mg PO DAILY [facility] Last Admin: 12/30/17 09:14 Dose: 0.4 mg Zolpidem Tartrate (Ambien) 5 mg PO HS PRN PRN Reason: Insomnia Last Admin: 12/29/17 22:28 Dose: 5 mg - Labs Labs: 12/30/17 07:34 12/30/17 07:34 PT 11.0 SECONDS (9.7-12.2) 12/24/17 15:18 INR 1.0 12/24/17 15:18 APTT 32 SECONDS (21-34) 12/24/17 15:18 - Constitutional Appears: Non-toxic, No Acute Distress - Head Exam Head Exam: ATRAUMATIC, NORMAL INSPECTION, NORMOCEPHALIC - Eye Exam Eye Exam: EOMI, Normal appearance, PERRL Pupil Exam: NORMAL ACCOMODATION - ENT Exam ENT Exam: Mucous Membranes Moist - Neck Exam Neck Exam: Full ROM - Respiratory Exam Respiratory Exam: Wheezes, NORMAL BREATHING PATTERN. absent: Respiratory Distress - Cardiovascular Exam Cardiovascular Exam: +S1, +S2 - GI/Abdominal Exam GI & Abdominal Exam: Soft, Normal Bowel Sounds - Extremities Exam Extremities Exam: Full ROM, Normal Capillary Refill, Normal Inspection, Pedal Edema (1+ pitting) - Back Exam Back Exam: Full ROM - Neurological Exam Neurological Exam: Alert, Awake, CN II-XII Intact, Oriented x3 - Psychiatric Exam Psychiatric exam: Normal Affect, Normal Mood - Skin Skin Exam: Dry, Normal Color, Warm Assessment and Plan - Assessment and Plan (Free Text) Assessment: COPD with acute exacerbation; acute on chronic; not on home O2 Duoneb Q4h Solumedrol 40mg Q6H Robitussin 200mg PO QID Singulair 10mg PO HS Percocet 1 tab PO Q4 prn Advair Q12 Mucomyst with breathing treatment Patient advised again his need to quit smoking. f/u am labs Recommendations for nebulizer at home. Patient needs help obtaining this upon discharge. Lower Extremity Swelling Reviewed medications at this time- will hold Norvasc Patient to continue to ambulate as tolerated. Influenza Tamiflu 75mg BID x 5 days Started on 12/25. Completed 12/29/17 Sinusitis/Otitis Media Amoxicillin 500mg PO Q8 hours (started 12/26 AM dosing) - continue for [address] Bender consulted help appreciated - Recommendations for warm compresses over right TMJ. F/U outpatient CT internal auditory canal - Acute right mastoiditis with fluid/soft tissues extending into the middle ear cavity suggesting accompanying otitis media. chronic paranasal sinusitis. Hyponatremia Urine os 685, serum os 285, urine na 27 Hives Benadryl PRN Tobacco abuse; E-Cigarette Patient on Nicoderm patch, advised again his need to quit smoking. Hypertension Norvasc 10mg PO daily- held due to LE swelling Will monitor BPs and switch accordingly Major depressive disorder Zoloft 100mg PO daily Patient denies any depression, suicidal ideation. Nocturia associated with benign prostatic hyperplasia Flomax 0.4 mg PO daily Insomnia 5 mg PO HS Prophylactic measure Lovenox 40mg SC daily SCDs Pepcid 20mg bid Tylenol prn Dispo: To be discharged in the AM. Patient in the process of finding jail placement. Patient in need of medications and nebulizer to be faxed to [employer] for clearance. All management per Dr. Gonzalez. Case discussed with Dr. Gonzalez
[2017-12-30] MEDS: Fluticasone-Salmeterol 250-50mcg Diskus INH SCH ×2 (11:03→20:35)
[2017-12-30] MEDS: guaiFENesin 200 mg/10 ml Syrup UD PO SCH ×4 (11:13→21:23)
[2017-12-30] MEDS: DiphenhydrAMINE 50 mg/ml Inj IVP SCH ×3 (12:08→23:41)
[2017-12-31] MEDS: Acetylcysteine 20% Inhal Soln (4ml) INH SCH ×3 (02:52→13:24)
[2017-12-31] MEDS: DiphenhydrAMINE 50 mg/ml Inj IVP SCH ×2 (05:08→12:56)
[2017-12-31] MEDS: MethylPREDNISolone 40 mg Vial IVP SCH ×2 (05:08→12:56)
[2017-12-31] MEDS: Fluticasone-Salmeterol 250-50mcg Diskus INH SCH (08:08)
[2017-12-31 08:21] VITALS: BP 151/84; PULSE 85; RESP 20; TEMP 97.6; O2SAT 96
--- NOTE | 2017-12-31 09:09 | CP.PCM.PN ---
Subjective - Date & Time of Evaluation Date of Evaluation: 12/31/17 Time of Evaluation: 11:45 - Subjective Subjective: PGY 2 Medicine Note- Dr. Gonzalez's service Patient seen and examined in no acute distress. Patient anticipating discharge. Patient states that through the help of the mental health social worker, he was able to have pertinent information sent to the insurance company regarding the Breo inhaler. He admits to some swelling of his lower extremities. he admits to general improvement of his symptoms. Patient in need of some medication refills. Objective - Vital Signs/Intake and Output Vital Signs (last 24 hours): Temp Pulse Resp BP Pulse Ox 97.6 F 85 20 151/84 H 96 12/31/17 07:40 12/31/17 07:40 12/31/17 07:40 12/31/17 07:40 12/31/17 07:40 Intake and Output: 12/31/17 12/31/17 06:59 18:59 Intake Total 650 Balance 650 - Medications Medications: Current Medications Acetaminophen (Tylenol 325mg Tab) 650 mg PO Q6 PRN PRN Reason: Pain, Mild (1-3) Last Admin: 12/31/17 05:17 Dose: 650 mg Acetylcysteine (Acetylcysteine 20%) 4 ml INH RQ6 [facility] Last Admin: 12/31/17 08:23 Dose: Not Given Amlodipine Besylate (Norvasc) 10 mg PO DAILY [facility] Last Admin: 12/30/17 09:13 Dose: 10 mg Amoxicillin (Amoxil 500 Mg Cap) 500 mg PO Q8 [facility] Last Admin: 12/31/17 05:08 Dose: 500 mg Diphenhydramine HCl (Benadryl) 25 mg IVP Q6 [facility] Last Admin: 12/31/17 05:08 Dose: 25 mg Enoxaparin Sodium (Lovenox) 40 mg SC DAILY [facility] Last Admin: 12/30/17 09:14 Dose: 40 mg Famotidine (Pepcid) 20 mg PO BID [facility] Last Admin: 12/30/17 18:29 Dose: 20 mg Gabapentin (Neurontin) 100 mg PO TID [facility] Last Admin: 12/30/17 18:29 Dose: 100 mg Guaifenesin (Robitussin) 200 mg PO QID [facility] Last Admin: 12/30/17 21:23 Dose: 200 mg Methylprednisolone (Solu-Medrol) 40 mg IVP Q6 [facility] Last Admin: 12/31/17 05:08 Dose: 40 mg Montelukast Sodium (Singulair) 10 mg PO HS [facility] Last Admin: 12/30/17 21:23 Dose: 10 mg Nicotine (Nicoderm Cq) 1 patch TD DAILY [facility] Last Admin: 12/30/17 09:14 Dose: 1 patch Ondansetron HCl (Zofran Inj) 4 mg IVP Q6H PRN PRN Reason: Nausea/Vomiting Last Admin: 12/30/17 11:13 Dose: 4 mg Oxycodone/Acetaminophen (Percocet 5/325 Mg Tab) 1 tab PO Q4H PRN PRN Reason: Pain, moderate (4-7) Stop: 01/04/18 17:21 Last Admin: 12/30/17 23:41 Dose: 1 tab Fluticasone/Salmeterol (Advair Diskus 250/50) 1 puff INH RQ12 [facility] Last Admin: 12/31/17 08:08 Dose: 1 puff Sertraline HCl (Zoloft) 100 mg PO DAILY [facility] Last Admin: 12/30/17 09:14 Dose: 100 mg Tamsulosin HCl (Flomax) 0.4 mg PO DAILY [facility] Last Admin: 12/30/17 09:14 Dose: 0.4 mg Zolpidem Tartrate (Ambien) 5 mg PO HS PRN PRN Reason: Insomnia Last Admin: 12/30/17 21:23 Dose: 5 mg - Labs Labs: 12/30/17 07:34 12/30/17 07:34 PT 11.0 SECONDS (9.7-12.2) 12/24/17 15:18 INR 1.0 12/24/17 15:18 APTT 32 SECONDS (21-34) 12/24/17 15:18 - Constitutional Appears: Non-toxic, No Acute Distress - Head Exam Head Exam: NORMAL INSPECTION, NORMOCEPHALIC - Eye Exam Eye Exam: Normal appearance - ENT Exam ENT Exam: Mucous Membranes Moist - Neck Exam Neck Exam: Full ROM - Respiratory Exam Respiratory Exam: NORMAL BREATHING PATTERN - Cardiovascular Exam Cardiovascular Exam: +S1, +S2 - Extremities Exam Extremities Exam: Full ROM, Normal Capillary Refill - Neurological Exam Neurological Exam: Alert, Awake, Normal Gait, Oriented x3 - Psychiatric Exam Psychiatric exam: Normal Affect, Normal Mood - Skin Skin Exam: Dry, Normal Color, Warm Assessment and Plan - Assessment and Plan (Free Text) Assessment: COPD with acute exacerbation; acute on chronic; not on home O2 Duoneb Q4h Solumedrol 40mg Q6H Robitussin 200mg PO QID Singulair 10mg PO HS Percocet 1 tab PO Q4 prn Advair Q12 Mucomyst with breathing treatment Patient advised again his need to quit smoking. f/u am labs Recommendations for nebulizer at home. Patient needs help obtaining this upon discharge. Lower Extremity Swelling Reviewed medications at this time- will hold Norvasc Patient to continue to ambulate as tolerated. Influenza Tamiflu 75mg BID x 5 days Started on 12/25. Completed 12/29/17 Sinusitis/Otitis Media Amoxicillin 500mg PO Q8 hours (started 2/1 AM dosing) - continue for 7 days total. Needs through 01/01. Dr. Bender consulted help appreciated - Recommendations for warm compresses over right TMJ. F/U outpatient CT internal auditory canal - Acute right mastoiditis with fluid/soft tissues extending into the middle ear cavity suggesting accompanying otitis media. chronic paranasal sinusitis. Hyponatremia Urine os 685, serum os 285, urine na 27 Hives Benadryl PRN Tobacco abuse; E-Cigarette Patient on Nicoderm patch, advised again his need to quit smoking. Hypertension Norvasc 10mg PO daily- held due to LE swelling Will give Zestril 5 mg PO daily Will monitor BPs and switch accordingly Major depressive disorder Zoloft 100mg PO daily Patient denies any depression, suicidal ideation. Nocturia associated with benign prostatic hyperplasia Flomax 0.4 mg PO daily Insomnia 5 mg PO HS Prophylactic measure Lovenox 40mg SC daily [facility] Pepcid 20mg bid Tylenol prn Discharge Instructions: Patient is medically stable for discharge to senior care. Patient to follow up with Dr. Gonzalez within one week of discharge and Dr. Bender within two weeks of discharge. Patient to be discharged with Amoxicillin. He should take through January 01, 2018 as directed. Patient to be provided with a prescription for a nebulizer as well as some of his home medications that he is in need of. If symptoms return, go to the emergency room. Instructions explained to patient who is aware. All management per Dr. Gonzalez. Case discussed with Dr. Gonzalez
[2017-12-31] MEDS: guaiFENesin 200 mg/10 ml Syrup UD PO SCH (09:20)
[2017-12-31] MEDS: Enoxaparin 40 mg Syringe SC SCH (09:20)
[2017-12-31] MEDS: Oxycodone/Acetaminophen 5/325 mg Tab PO PRN (09:27)
[2017-12-31] MEDS ORDERED: Albuterol-Ipratrop 3 mg / 0.5 (3 ml) UD INH SCH (12:00)
== END 2017-12-31 14:53 | disposition home or self-care (01) | DRG 88 ==
LOC: C.ER 14:34 → C.9E 15:57 → C.6T 12-25 11:26 → C.9E 12-25 11:48 → C.5S 12-25 12:26
PROVIDERS: ADMIT Internal Medicine Pulmonary Disease; ATTEND Internal Medicine Pulmonary Disease
DX: J44.1 Chronic obstructive pulmonary disease with (acute) exacerbation (principal); J11.1 Influenza due to unidentified influenza virus with other respiratory manifestations; E87.1 Hypo-osmolality and hyponatremia; H70.001 Acute mastoiditis without complications, right ear; H66.91 Otitis media, unspecified, right ear; N40.1 Benign prostatic hyperplasia with lower urinary tract symptoms; M26.69 Other specified disorders of temporomandibular joint; J34.2 Deviated nasal septum; I10 Essential (primary) hypertension; H91.91 Unspecified hearing loss, right ear; F17.210 Nicotine dependence, cigarettes, uncomplicated; F32.9 Major depressive disorder, single episode, unspecified; G47.00 Insomnia, unspecified; Z87.11 Personal history of peptic ulcer disease

== ENCOUNTER 2018-05-05 16:12 | Inpatient (IN) | payer MEDICAID ==
[2018-05-05 16:13] VITALS: BMI 18.8
[2018-05-05 18:36] LABS: BASO % 0.6 % (0.0-2.0); EOS % 0.6 % (0.0-4.0); HEMOGLOBIN 12.3 g/dL (12.0-18.0); LYMPH # 1.1 K/uL (1.0-4.3); LYMPH % 17.6 % (20.0-40.0); MEAN CELL VOLUME 96.7 fL (80.0-94.0); MEAN CORPUSCULAR HEMOGLOBIN 32.6 pg (27.0-31.0); MEAN CORPUSCULAR HGB CONC 33.7 g/dL (33.0-37.0); MONO # 0.3 K/uL (0.0-0.8); MONO % 4.9 % (0.0-10.0); NEUT # 4.9 K/uL (1.8-7.0); NEUT % 76.3 % (50.0-75.0); RBC 3.78 Mil/uL (4.40-5.90); RED CELL DISTRIBUTION WIDTH 16.8 % (11.5-14.5); WHITE BLOOD COUNT 6.4 K/uL (4.8-10.8)
[2018-05-05 18:48] LABS: ALB/GLOB RATIO 1.4 (1.0-2.1); ALBUMIN 3.6 g/dL (3.5-5.0); ALT/SGPT 48 U/L (21-72); AST/SGOT 81 U/L (17-59); BLOOD UREA NITROGEN 11 mg/dL (9-20); CALCIUM 8.2 mg/dl (8.6-10.4); GFR AFRICAN-AMERICAN > 60; GFR NON-AFRICAN AMERICAN > 60
[2018-05-05 18:50] LABS: SQUAMOUS EPITHIAL < 1 /hpf (0-5); URINE BACTERIA RARE (<OCC); URINE BILIRUBIN NEGATIVE (NEGATIVE); URINE BLOOD NEGATIVE (NEGATIVE); URINE CLARITY Clear (Clear); URINE COLOR Yellow (YELLOW); URINE GLUCOSE (UA) NORMAL (Normal); URINE LEUKOCYTE ESTERASE NEG Leu/uL (Negative); URINE PROTEIN NEGATIVE (NEGATIVE); URINE UROBILINOGEN NORMAL mg/dL (0.2-1.0)
[2018-05-05 18:52] LABS: BARBITURATES, UR NEGATIVE (NEGATIVE); BENZODIAZEPINES, UR NEGATIVE (NEGATIVE); OPIATES, UR NEGATIVE (NEGATIVE); PHENCYCLIDINE, UR NEGATIVE (NEGATIVE)
--- NOTE | 2018-05-05 19:52 | C.PDOC ---
History Of Present Illness 58 y/o male presents to ED with c/o depression and suicide thoughts with no plan. Patient admits to drinking ETOH regularly and currently denies HI, Hallucinations or any acute physical complaints at this time. Chief Complaint (Nursing): Shortness Of Breath History Per: Patient History/Exam Limitations: no limitations Onset/Duration Of Symptoms: Days Current Symptoms Are (Timing): Still Present Suicide/Self Injury Attempted (Context): None Modifying Factor(s): Alcohol Associated Symptoms: Depression, Suicidal Thoughts. denies: Suicidal Plan Past Medical History Reviewed: Historical Data, Nursing Documentation, Vital Signs Vital Signs: Last Vital Signs Temp 98.4 F 05/05/18 20:06 Pulse 108 H 05/05/18 20:06 Resp 20 05/05/18 21:37 BP 166/93 H 05/05/18 20:06 Pulse Ox 96 05/05/18 20:06 - Medical History PMH: Anxiety, Asthma, Bronchitis, COPD, Depression, Gastrointestinal Ulcer, HTN , Pneumonia Surgical History: Appendectomy, Tonsillectomy - [facility] Procedures CONTR ABD ARTERIOGRM NEC (05/20/07) DETOXIFICATION SERVICES FOR SUBSTANCE ABUSE TREATMENT (05/21/17) ESOPHAGOGASTRODUODENOSCOPY [EGD] W/CLOSED BIOPSY (05/20/07) EXCISION OF LOWER ESOPHAGUS, ENDO, DIAGN (05/21/17) EXTIRPATION OF MATTER FROM LOWER ESOPHAGUS, ENDO (05/21/17) GROUP PEDIATRIC LPN FOR SUBSTANCE ABUSE TREATMENT, PSYCHOEDUCATION (01/14/17) GROUP PEDIATRIC LPN FOR SUBSTANCE ABUSE, COGNITIVE BEHAVIORAL (01/14/17) GROUP PSYCHOTHERAPY (04/22/17) INDIV PEDIATRIC LPN FOR SUBSTANCE ABUSE TREATMENT, PSYCHOEDUCATION (01/14/17) INDIV PEDIATRIC LPN FOR SUBSTANCE ABUSE, COGNITIVE BEHAVIORAL (01/14/17) INDIV PSYCHOTHERAPY FOR SUBSTANCE ABUSE TREATMENT, SUPPORT (05/21/17) INDIV PSYCHOTHERAPY FOR SUBSTANCE ABUSE, COGNITIV BEHAVIORAL (05/21/17) INDIV PSYCHOTHERAPY FOR SUBSTANCE ABUSE, PSYCHOEDUCATION (05/21/17) INDIVIDUAL PSYCHOTHERAPY, COGNITIVE-BEHAVIORAL (05/21/17) INDIVIDUAL PSYCHOTHERAPY, SUPPORTIVE (05/21/17) INJECT/INFUSE NEC (03/20/12) MEDICATION MANAGEMENT (03/12/17) MEDS MGMT FOR SUBSTANCE ABUSE TREATMENT, OTH REPL MED (04/18/17) Family History: States: No Known Family Hx - Social History Hx Tobacco Use: Yes Hx Alcohol Use: Yes Hx Substance Use: No - Immunization History Hx Tetanus Toxoid Vaccination: Yes Hx Influenza Vaccination: Yes (01/2016) Hx Pneumococcal Vaccination: Yes (2015) Review Of Systems Constitutional: Negative for: Fever, Chills Cardiovascular: Negative for: Chest Pain Respiratory: Negative for: Shortness of Breath Gastrointestinal: Negative for: Nausea, Vomiting Skin: Negative for: Rash Psych: Positive for: Depression, Suicidal ideation Physical Exam - Physical Exam Appears: Non-toxic, No Acute Distress, Other (ETOH on breath) Skin: Warm, Dry, No Rash Head: Atraumatic, Normacephalic Eye(s): bilateral: Normal Inspection Oral Mucosa: Moist Neck: Normal ROM, Supple Cardiovascular: Rhythm Regular Respiratory: Normal Breath Sounds, No Rales, No Rhonchi, No Wheezing Gastrointestinal/Abdominal: Soft, No Tenderness, No Guarding, No Rebound Neurological/Psych: Oriented x3, Normal Speech, Normal Cognition ED Course And Treatment - Laboratory Results Result Diagrams: 05/05/18 18:33 05/05/18 18:33 O2 Sat by Pulse Oximetry: 100 (RA) Pulse Ox Interpretation: Normal Disposition - Disposition Disposition: HOSPITALIZED Disposition Time: 18:00 Condition: STABLE - Clinical Impression Clinical Impression: Depression, History of ETOH abuse - Scribe Statement The provider has reviewed the documentation as recorded by the Petersonibkeri Mckeon All medical record entries made by the Petersonibe were at my direction and personally dictated by me. I have reviewed the chart and agree that the record accurately reflects my personal performance of the history, physical exam, medical decision making, and the department course for this patient. I have also personally directed, reviewed, and agree with the discharge instructions and disposition.
--- NOTE | 2018-05-05 20:21 | PCM.BM ---
<Debby Mariano - Last Filed: 05/05/18 20:19> Treatment Plan Problems - Problems identified on initial assessmt Depression Date Initiated: 05/05/18 Time Initiated: 20:20 Assessment reference: NA Status: Active Anxiety Date Initiated: 05/05/18 Time Initiated: 20:20 Assessment reference: NA Status: Active Treatment assets and liabiliti Patient Assests: cooperative, self-reliant, ADL independent, negotiates basic needs, cognitively intact Patient Liabilities: live alone (homeless), financial problems, poor support system, substance abuse (ETOH level 149), medical problems (COPD, ASTHMA, BRONCHITIS), visual impairment (Wears glasses) - Milieu Protocol Maintain good personal hygiene: daily Encourage regular showers, daily Remind patient to perform daily oral care, daily Assist patient to perform ADL's (self) Conduct patient checks and document Observation sheet: Q15 minutes (safety) Maintain personal safety: every shift Educate patient to report safety concerns to staff, every shift Monitor environment for contraband/sharps Medication safety: Monitor for expected outcome, potential side effects: every shift, Assess barriers to learning: every shift, Assess readiness for medication education: every shift <Nasima Friedman - Last Filed: 05/07/18 16:47> Family Contact Family involvement: Patient does not wish Family/SO involvement Family contact: Patient declines to allow family contact at present - Goals for Treatment Patient goals for treatment: "I do not where I am going after I leave." Discharge/Continuing Care - Education Needs Education Needs: Patient Medication, Patient Diagnosis/Disease Process, Patient Community resources - Discharge Discharge Criteria: Free of Suicidal thoughts, Normal sleep pattern, Ability to care for self, No longer exhibiting s/s of withdrawal, Reduction of target symptoms Discharge to:: Intermediate, Substance Abuse Rehab, Other - Treatment Team Participation Discussed with Family/SO: No Was Patient/Family/SO present at Treatment Team Meeting: Yes
[2018-05-05] MEDS ORDERED: Albuterol-Ipratrop 3 mg / 0.5 (3 ml) UD INH PRN (21:39)
[2018-05-05] MEDS: Albuterol HFA 90 mcg/actuation (8 g) INH PRN (22:26)
--- NOTE | 2018-05-05 22:36 | CP.PCM.CON ---
Addendum entered and electronically signed by Nurys Lea DO 05/05/18 23:15: librium 50mg once ordered will continue neurocheck and vital signs ativan 2 mg PO Q4h ativan 1 mg PO Q4H PRN CONSUELO Original Note: <Nurys Lea - Last Filed: 05/05/18 23:10> History of Present Illness - History of Present Illness History of Present Illness: Consult note for Dr. Dey 58M admitted for depression and suicidal ideation. Patient states he had difficulty breathing, medicine team consulted for COPD exacerbation. Patient states he feels shaky and short of breath. Patient denies coughing, fever, admits to difficulty breath. Past medical history: COPD, GI ulcer, Depression, Alcohol abuse, Degenerative disk disease Past surgical history: tonsillectomy, appendectomy, removal of perianal cysts, GI surgery for perforated ulcer (patient unsure of what surgery) Meds: Duoneb 3mL INH RQ6, Zoloft 200mg PO, Arnuity (inhaler), Incruz (inhaler) Family history: denies Social history: [facility], works at [employer]. Tobacco-1.5 ppd x 45 yrs, ETOH- stopped 1.5 yrs ago, used to drink pint/day. Drugs-denies. Allergies: NKDA Review of Systems - Review of Systems All systems: reviewed and no additional remarkable complaints except Past Patient History - Infectious Disease Hx of Infectious Diseases: None - Past Medical History & Family History Past Medical History?: Yes - Past Social History Smoking Status: Heavy Smoker > 10 Cigarettes Daily Alcohol: > 2 Drinks/Day - CARDIAC Hx Hypertension: Yes - PULMONARY Hx Asthma: Yes Hx Bronchitis: Yes Hx Chronic Obstructive Pulmonary Disease (COPD): Yes Hx Pneumonia: Yes - NEUROLOGICAL Hx Seizures: No - HEENT Hx HEENT Problems: No - RENAL Hx Chronic Kidney Disease: No - ENDOCRINE/METABOLIC Hx Endocrine Disorders: No - HEMATOLOGICAL/ONCOLOGICAL Hx Human Immunodeficiency Virus (HIV): No - INTEGUMENTARY Hx Dermatological Problems: No - MUSCULOSKELETAL/RHEUMATOLOGICAL Hx Musculoskeletal Disorders: Yes Hx Falls: Yes - GASTROINTESTINAL Hx Gastrointestinal Disorders: Yes Hx Gastroesophageal Reflux: Yes Hx Ulcer: Yes Other/Comment: Hx of perforated bowel repaired with surgery. - GENITOURINARY/GYNECOLOGICAL Hx Sexually Transmitted Disorders: No - PSYCHIATRIC Hx Substance Use: No - SURGICAL HISTORY Hx Appendectomy: Yes Hx Tonsillectomy: Yes - ANESTHESIA Hx Anesthesia: Yes Hx Anesthesia Reactions: No Hx Malignant Hyperthermia: No Meds Allergies/Adverse Reactions: Allergies Allergy/AdvReac Type Severity Reaction Status Date / Time No Known Allergies Allergy Verified 05/05/18 16:34 - Medications Medications: Current Medications Albuterol (Ventolin Hfa 90 Mcg/Actuation (8 G)) 1 puff INH RQ6 PRN PRN Reason: Shortness of Breath Last Admin: 05/05/18 22:26 Dose: 1 puff Albuterol/Ipratropium (Duoneb 3 Mg/0.5 Mg (3 Ml) Ud) 3 ml INH RQ6 PRN PRN Reason: Shortness of Breath Chlordiazepoxide (Librium) 0 mg PO Q6 FERNANDA PRN Reason: Taper Stop: 05/10/18 01:59 Physical Exam - Head Exam Head Exam: ATRAUMATIC, NORMAL INSPECTION, NORMOCEPHALIC - Eye Exam Eye Exam: EOMI, Normal appearance Pupil Exam: NORMAL ACCOMODATION, PERRL - ENT Exam ENT Exam: Mucous Membranes Moist, Normal Exam - Neck Exam Neck exam: Positive for: Full Rom, Normal Inspection - Respiratory Exam Respiratory Exam: Clear to Auscultation Bilateral, Wheezes (bilaterally) - Cardiovascular Exam Cardiovascular Exam: REGULAR RHYTHM, +S1, +S2. absent: Bradycardia, Tachycardia - GI/Abdominal Exam GI & Abdominal Exam: Normal Bowel Sounds, Soft. absent: Tenderness - Extremities Exam Extremities exam: Positive for: full ROM, normal inspection. Negative for: pedal edema - Neurological Exam Neurological exam: CN II-XII Intact, Normal Gait, Oriented x3 - Psychiatric Exam Psychiatric exam: Normal Affect, Normal Mood - Skin Skin Exam: Dry, Intact, Normal Color, Warm Results - Vital Signs Recent Vital Signs: Last Vital Signs Temp 98.4 F 05/05/18 20:06 Pulse 108 H 05/05/18 20:06 Resp 20 05/05/18 21:37 BP 166/93 H 05/05/18 20:06 Pulse Ox 96 05/05/18 20:06 - Labs Result Diagrams: 05/05/18 18:33 05/05/18 18:33 Labs: Laboratory Results - last 24 hr 06/11/18 06/11/18 06/11/18 18:33 18:33 18:33 WBC 6.4 D RBC 3.78 L Hgb 12.3 Hct 36.5 MCV 96.7 H MCH 32.6 H MCHC 33.7 RDW 16.8 H Plt Count 142 D MPV 8.0 Neut % (Auto) 76.3 H Lymph % (Auto) 17.6 L [place] % (Auto) 4.9 Eos % (Auto) 0.6 Baso % (Auto) 0.6 Neut # (Auto) 4.9 Lymph # (Auto) 1.1 [place] # (Auto) 0.3 Eos # (Auto) 0.0 Baso # (Auto) 0.0 Sodium 140 Potassium 4.3 Chloride 94 L Carbon Dioxide 31 H Anion Gap 19 BUN 11 Creatinine 0.7 L Est GFR ( Amer) > 60 Est GFR (Non-Af Amer) > 60 Random Glucose 130 H Calcium 8.2 L Total Bilirubin 0.4 AST 81 H D ALT 48 Alkaline Phosphatase 75 Total Protein 6.1 L Albumin 3.6 Globulin 2.5 Albumin/Globulin Ratio 1.4 Urine Color Yellow Urine Clarity Clear Urine pH 6.0 Ur Specific [place] 1.010 Urine Protein Negative Urine Glucose (UA) Normal Urine Ketones Negative Urine Blood Negative Urine Nitrate Negative Urine Bilirubin Negative Urine Urobilinogen Normal Ur Leukocyte Esterase Neg Urine WBC (Auto) < 1 Ur Squamous Epith Cells < 1 Urine Bacteria Rare Urine Opiates Screen Urine Methadone Screen Ur Barbiturates Screen Ur Phencyclidine Scrn Ur Amphetamines Screen U Benzodiazepines Scrn U Oth Cocaine Metabols U Cannabinoids Screen Alcohol, Quantitative 149 H 05/05/18 18:33 WBC RBC Hgb Hct MCV MCH MCHC RDW Plt Count MPV Neut % (Auto) Lymph % (Auto) [place] % (Auto) Eos % (Auto) Baso % (Auto) Neut # (Auto) Lymph # (Auto) [place] # (Auto) Eos # (Auto) Baso # (Auto) Sodium Potassium Chloride Carbon Dioxide Anion Gap BUN Creatinine Est GFR ( Amer) Est GFR (Non-Af Amer) Random Glucose Calcium Total Bilirubin AST ALT Alkaline Phosphatase Total Protein Albumin Globulin Albumin/Globulin Ratio Urine Color Urine Clarity Urine pH Ur Specific [place] Urine Protein Urine Glucose (UA) Urine Ketones Urine Blood Urine Nitrate Urine Bilirubin Urine Urobilinogen Ur Leukocyte Esterase Urine WBC (Auto) Ur Squamous Epith Cells Urine Bacteria Urine Opiates Screen Negative Urine Methadone Screen Negative Ur Barbiturates Screen Negative Ur Phencyclidine Scrn Negative Ur Amphetamines Screen Negative U Benzodiazepines Scrn Negative U Oth Cocaine Metabols Negative U Cannabinoids Screen Negative Alcohol, Quantitative Assessment & Plan - Assessment and Plan (Free Text) Assessment: COPD Pulmicort Duonebs Q6H PRN Albuterol Q3H PRN Depression, suicidal ideation management by psychiatry Alcohol use history Folic acid 1 mg POQD Thiamine 100 mg POQD Multivitamins 1 tab POQD Gastric ulcer history Protonix 40 mg POQD discussed with Dr. Yissel Lea DO PGY1 - Date & Time Date: 05/05/18 Time: 23:02 <Phillip Dey P - Last Filed: 05/06/18 07:45> Meds - Medications Medications: Current Medications Albuterol (Ventolin Hfa 90 Mcg/Actuation (8 G)) 1 puff INH RQ6 PRN PRN Reason: Shortness of Breath Last Admin: 05/05/18 22:26 Dose: 1 puff Albuterol Sulfate (Albuterol 0.042% Inhal Latonya (1.25mg/3ml) Ud) 1.25 mg INH RQ3 PRN PRN Reason: shortness of breath Albuterol/Ipratropium (Duoneb 3 Mg/0.5 Mg (3 Ml) Ud) 3 ml INH RQ6 PRN PRN Reason: Shortness of Breath Budesonide (Pulmicort Respules) 0.5 mg INH RQ12 FERNANDA Chlordiazepoxide (Librium) 25 mg PO Q6 FERNANDA PRN Reason: Taper Stop: 05/11/18 01:59 Last Admin: 05/06/18 05:38 Dose: 25 mg Chlordiazepoxide (Librium) 50 mg PO Q6 FERNANDA Folic Acid (Folic Acid) 1 mg PO DAILY FERNANDA Lorazepam (Ativan) 2 mg PO Q4 PRN PRN Reason: Anxiety Last Admin: 05/06/18 06:42 Dose: 2 mg Multivitamins (Hexavitamin) 1 tab PO DAILY [facility] Pantoprazole Sodium (Protonix Ec Tab) 40 mg PO DAILY FERNANDA Prednisone (Prednisone Tab) 40 mg PO ONCE ONE Stop: 05/06/18 22:43 Thiamine HCl (Vitamin B1 Tab) 100 mg PO DAILY FERNANDA Trazodone HCl (Desyrel) 50 mg PO HS PRN PRN Reason: Insomnia Results - Vital Signs Recent Vital Signs: Last Vital Signs Temp 98.4 F 05/05/18 20:06 Pulse 108 H 05/05/18 20:06 Resp 20 05/05/18 21:37 BP 166/93 H 05/05/18 20:06 Pulse Ox 100 05/06/18 00:30 - Labs Result Diagrams: 05/05/18 18:33 05/05/18 18:33 Labs: Laboratory Results - last 24 hr 05/05/18 05/05/18 05/05/18 18:33 18:33 18:33 WBC 6.4 D RBC 3.78 L Hgb 12.3 Hct 36.5 MCV 96.7 H MCH 32.6 H MCHC 33.7 RDW 16.8 H Plt Count 142 D MPV 8.0 Neut % (Auto) 76.3 H Lymph % (Auto) 17.6 L [place] % (Auto) 4.9 Eos % (Auto) 0.6 Baso % (Auto) 0.6 Neut # (Auto) 4.9 Lymph # (Auto) 1.1 [place] # (Auto) 0.3 Eos # (Auto) 0.0 Baso # (Auto) 0.0 Sodium 140 Potassium 4.3 Chloride 94 L Carbon Dioxide 31 H Anion Gap 19 BUN 11 Creatinine 0.7 L Est GFR ( Amer) > 60 Est GFR (Non-Af Amer) > 60 Random Glucose 130 H Calcium 8.2 L Total Bilirubin 0.4 AST 81 H D ALT 48 Alkaline Phosphatase 75 Total Protein 6.1 L Albumin 3.6 Globulin 2.5 Albumin/Globulin Ratio 1.4 Urine Color Yellow Urine Clarity Clear Urine pH 6.0 Ur Specific [place] 1.010 Urine Protein Negative Urine Glucose (UA) Normal Urine Ketones Negative Urine Blood Negative Urine Nitrate Negative Urine Bilirubin Negative Urine Urobilinogen Normal Ur Leukocyte Esterase Neg Urine WBC (Auto) < 1 Ur Squamous Epith Cells < 1 Urine Bacteria Rare Urine Opiates Screen Urine Methadone Screen Ur Barbiturates Screen Ur Phencyclidine Scrn Ur Amphetamines Screen U Benzodiazepines Scrn U Oth Cocaine Metabols U Cannabinoids Screen Alcohol, Quantitative 149 H 05/05/18 18:33 WBC RBC Hgb Hct MCV MCH MCHC RDW Plt Count MPV Neut % (Auto) Lymph % (Auto) [place] % (Auto) Eos % (Auto) Baso % (Auto) Neut # (Auto) Lymph # (Auto) [place] # (Auto) Eos # (Auto) Baso # (Auto) Sodium Potassium Chloride Carbon Dioxide Anion Gap BUN Creatinine Est GFR ( Amer) Est GFR (Non-Af Amer) Random Glucose Calcium Total Bilirubin AST ALT Alkaline Phosphatase Total Protein Albumin Globulin Albumin/Globulin Ratio Urine Color Urine Clarity Urine pH Ur Specific [place] Urine Protein Urine Glucose (UA) Urine Ketones Urine Blood Urine Nitrate Urine Bilirubin Urine Urobilinogen Ur Leukocyte Esterase Urine WBC (Auto) Ur Squamous Epith Cells Urine Bacteria Urine Opiates Screen Negative Urine Methadone Screen Negative Ur Barbiturates Screen Negative Ur Phencyclidine Scrn Negative Ur Amphetamines Screen Negative U Benzodiazepines Scrn Negative U Oth Cocaine Metabols Negative U Cannabinoids Screen Negative Alcohol, Quantitative Attending/Attestation - Attestation I have personally seen and examined this patient.: Yes I have fully participated in the care of the patient.: Yes I have reviewed all pertinent clinical information: Yes Notes (Text): 05/06/18 07:40 Assessment Alcohol withdrawal with tremors but not in DTs Copd exacerbation Suicidal thoughts and schizophrenia Alcohol and tobacco abuse C/o some thing sticking and throat, but talking and coughing ok, no h/o injury or foreign body aspiration Malnutrition, emaciation, poor intake. Homeless. Plan Aggressive BZD scheduled and prn till withdrawal symptoms improve then taper Thiamine, mvt, FA Pulmicort, single dose oral prednisone, duoneb, albuterol prn CXR, if persistent throat complains will need CT neck and chest Encourage food and po fluids Counselled about tobacco and alcohol See orders for detail.
[2018-05-05] MEDS ORDERED: Albuterol 0.042% Inhal Sol (1.25 mg/3 mL) UD INH PRN (22:37)
[2018-05-05] MEDS ORDERED: Pantoprazole 40 mg EC Tab PO STA (23:12)
[2018-05-06 00:30] VITALS: O2SAT 100
--- NOTE | 2018-05-06 07:43 | CP.PCM.PN ---
<Tona Ariza - Last Filed: 05/06/18 16:30> Subjective - Date & Time of Evaluation Date of Evaluation: 05/06/18 Time of Evaluation: 07:42 - Subjective Subjective: Medicine progress note for Dr. Rojas Patient was seen and examined at bedside. Patient was oob to wheelchair and receiving his nebulizer treatment. Patient is lethargic, oriented x3 three, however "see blue bugs all over the room". He denies auditory hallucinations. He also admits to tremors. Patient states he is coughing and producing excessive yellow mucus. He denies chest pain, abdominal pain, nausea, vomiting, fevers. Objective - Vital Signs/Intake and Output Vital Signs (last 24 hours): Temp Pulse Resp BP Pulse Ox 98.4 F 108 H 20 166/93 H 100 05/05/18 20:06 05/05/18 20:06 05/05/18 21:37 05/05/18 20:06 05/06/18 00:30 - Medications Medications: Current Medications Albuterol (Ventolin Hfa 90 Mcg/Actuation (8 G)) 1 puff INH RQ6 PRN PRN Reason: Shortness of Breath Last Admin: 05/05/18 22:26 Dose: 1 puff Albuterol Sulfate (Albuterol 0.042% Inhal Latonya (1.25mg/3ml) Ud) 1.25 mg INH RQ3 PRN PRN Reason: shortness of breath Albuterol/Ipratropium (Duoneb 3 Mg/0.5 Mg (3 Ml) Ud) 3 ml INH RQ6 PRN PRN Reason: Shortness of Breath Budesonide (Pulmicort Respules) 0.5 mg INH RQ12 FERNANDA Chlordiazepoxide (Librium) 25 mg PO Q6 FERNANDA PRN Reason: Taper Stop: 05/11/18 01:59 Last Admin: 05/06/18 05:38 Dose: 25 mg Chlordiazepoxide (Librium) 50 mg PO Q6 FERNANDA Folic Acid (Folic Acid) 1 mg PO DAILY FERNANDA Lorazepam (Ativan) 2 mg PO Q4 PRN PRN Reason: Anxiety Last Admin: 05/06/18 06:42 Dose: 2 mg Multivitamins (Hexavitamin) 1 tab PO DAILY [facility] Pantoprazole Sodium (Protonix Ec Tab) 40 mg PO DAILY [facility] Prednisone (Prednisone Tab) 40 mg PO ONCE ONE Stop: 05/06/18 22:43 Thiamine HCl (Vitamin B1 Tab) 100 mg PO DAILY [facility] Trazodone HCl (Desyrel) 50 mg PO HS PRN PRN Reason: Insomnia - Labs Labs: 05/05/18 18:33 05/05/18 18:33 - Constitutional Appears: No Acute Distress - Head Exam Head Exam: ATRAUMATIC, NORMAL INSPECTION - Eye Exam Eye Exam: Normal appearance - ENT Exam ENT Exam: Mucous Membranes Dry - Respiratory Exam Respiratory Exam: Rales, Rhonchi, Wheezes, NORMAL BREATHING PATTERN. absent: Respiratory Distress - Cardiovascular Exam Cardiovascular Exam: REGULAR RHYTHM, +S1, +S2 - GI/Abdominal Exam GI & Abdominal Exam: Soft, Normal Bowel Sounds. absent: Distended, Firm, Tenderness - Extremities Exam Extremities Exam: Normal Inspection. absent: Pedal Edema, Tenderness - Neurological Exam Neurological Exam: Oriented x3. absent: Alert (lethargic) - Psychiatric Exam Psychiatric exam: Flat Affect - Skin Skin Exam: Dry, Intact, Warm Assessment and Plan (1) COPD (chronic obstructive pulmonary disease) Assessment & Plan: CXR: Lungs are hyperinflated with flattened diaphragms consistent with underlying emphysema seen better advantage on prior CTA chest. There is a vague nodular opacity seen in the right lateral lung base that may represent nodular of postinflammatory foci which were seen to better advantage on prior CTA chest. Minor linear atelectasis left medial lung base. Mild chronic pleural thickening both CP angle regions right greater than left. No acute consolidation. Chest CT: f/u Medications: * Pulmicort * Duonebs Q6h prn * Albuterol Q3h prn * Prednisone 20mg PO BID Status: Acute (2) Alcohol use disorder Assessment & Plan: Management per psychiatry Status: Acute (3) Depression Assessment & Plan: Hx of depression and suicidal ideation Management per psychiatry Status: Acute (4) History of gastric ulcer Assessment & Plan: Continue protonix 40mg PO daily Status: Acute <Rojas,Peter H - Last Filed: 05/06/18 17:30> Objective - Vital Signs/Intake and Output Vital Signs (last 24 hours): Temp Pulse Resp BP Pulse Ox 98.4 F 81 20 112/63 100 05/05/18 20:06 05/06/18 15:51 05/05/18 21:37 05/06/18 15:51 05/06/18 00:30 - Medications Medications: Current Medications Albuterol (Ventolin Hfa 90 Mcg/Actuation (8 G)) 1 puff INH RQ6 PRN PRN Reason: Shortness of Breath Last Admin: 05/06/18 08:26 Dose: 1 puff Albuterol Sulfate (Albuterol 0.042% Inhal Latonya (1.25mg/3ml) Ud) 1.25 mg INH RQ3 PRN PRN Reason: shortness of breath Albuterol/Ipratropium (Duoneb 3 Mg/0.5 Mg (3 Ml) Ud) 3 ml INH RQ6 PRN PRN Reason: Shortness of Breath Budesonide (Pulmicort Respules) 0.5 mg INH RQ12 [facility] Last Admin: 05/06/18 09:15 Dose: 0.5 mg Folic Acid (Folic Acid) 1 mg PO DAILY [facility] Last Admin: 05/06/18 09:10 Dose: 1 mg Gabapentin (Neurontin) 100 mg PO TID [facility] Last Admin: 05/06/18 17:10 Dose: 100 mg Lorazepam (Ativan) 1 mg PO Q6 FERNANDA PRN Reason: Taper Stop: 05/10/18 13:44 Last Admin: 05/06/18 17:10 Dose: 1 mg Lorazepam (Ativan) 1 mg PO Q4H PRN PRN Reason: Symptoms of alcohol withdrawl Mirtazapine (Remeron) 15 mg PO HS [facility] Multivitamins (Hexavitamin) 1 tab PO DAILY [facility] Last Admin: 05/06/18 09:10 Dose: 1 tab Pantoprazole Sodium (Protonix Ec Tab) 40 mg PO DAILY [facility] Last Admin: 05/06/18 09:10 Dose: 40 mg Prednisone (Prednisone Tab) 40 mg PO ONCE ONE Stop: 05/06/18 22:43 Prednisone (Prednisone Tab) 20 mg PO BID [facility] Thiamine HCl (Vitamin B1 Tab) 100 mg PO DAILY [facility] Last Admin: 05/06/18 09:10 Dose: 100 mg Trazodone HCl (Desyrel) 50 mg PO HS PRN PRN Reason: Insomnia - Labs Labs: 05/06/18 09:18 05/06/18 09:18 Attending/Attestation - Attestation I have personally seen and examined this patient.: Yes I have fully participated in the care of the patient.: Yes I have reviewed all pertinent clinical information, including history, physical exam and plan: Yes Notes (Text): 05/06/18 17:28 Medical consult: Patient was seen and examined by me with the medical physics professor. Patient is known to the hospitalist service from previous admission in the past - usually from COPD/Emphesema related history. Continue with the PO Prednisone as well as Nebulizers and Pulmicort. On exam he had distant breath sounds and rales an rhocnhi. The CXRAY shows hyperinflated lung correia and flattened diagphrams. Will check CT of the chest as well as of the soft tissue of the neck thank you Suman Rojas
[2018-05-06] MEDS: Albuterol HFA 90 mcg/actuation (8 g) INH PRN (08:26)
[2018-05-06] MEDS: Multiple Vitamins Tab PO SCH (09:10)
[2018-05-06] MEDS: Pantoprazole 40 mg EC Tab PO SCH (09:10)
[2018-05-06] MEDS: Budesonide 0.5 mg/2 ml Inhal Susp UD INH SCH ×2 (09:15→19:50)
[2018-05-06 09:24] LABS: EOS # 0.1 K/uL (0.0-0.7); HEMOGLOBIN 13.7 g/dL (12.0-18.0); LYMPH # 1.7 K/uL (1.0-4.3); MONO # 0.3 K/uL (0.0-0.8)
[2018-05-06 09:29] LABS: BASO % 0.4 % (0.0-2.0); LYMPH % 27.3 % (20.0-40.0); MEAN CELL VOLUME 96.1 fL (80.0-94.0); MEAN CORPUSCULAR HEMOGLOBIN 33.2 pg (27.0-31.0); MEAN CORPUSCULAR HGB CONC 34.6 g/dL (33.0-37.0); MEAN PLATELET VOLUME 8.8 fL (7.2-11.7); MONO % 5.2 % (0.0-10.0); NEUT # 4.2 K/uL (1.8-7.0); NEUT % 66.1 % (50.0-75.0); NRBC % 0.2 % (0.0-2.0); RBC 4.13 Mil/uL (4.40-5.90); RED CELL DISTRIBUTION WIDTH 16.7 % (11.5-14.5); WHITE BLOOD COUNT 6.3 K/uL (4.8-10.8)
[2018-05-06 09:47] LABS: ALB/GLOB RATIO 1.4 (1.0-2.1); ALBUMIN 3.6 g/dL (3.5-5.0); ALT/SGPT 42 U/L (21-72); AST/SGOT 89 U/L (17-59); BLOOD UREA NITROGEN 9 mg/dL (9-20); CALCIUM 8.6 mg/dl (8.6-10.4); GFR AFRICAN-AMERICAN > 60; GFR NON-AFRICAN AMERICAN > 60
--- NOTE | 2018-05-06 09:54 | RAD ---
HISTORY: copd, sob COMPARISON: Comparison made with prior chest radiograph dated 12/24/2017 and prior CTA chest dated 10/22/2017 FINDINGS: LUNGS: Lungs are hyperinflated with flattened diaphragms consistent with underlying emphysema seen better advantage on prior CTA chest. There is a vague nodular opacity seen in the right lateral lung base that may represent nodular of postinflammatory foci which were seen to better advantage on prior CTA chest. Minor linear atelectasis left medial lung base. Mild chronic pleural thickening both CP angle regions right greater than left. No acute consolidation. PLEURA: As above. . No pneumothorax apparent. CARDIOVASCULAR: Normal. OSSEOUS STRUCTURES: No significant abnormalities. VISUALIZED UPPER ABDOMEN: Normal. OTHER FINDINGS: None. IMPRESSION: Lungs are hyperinflated with flattened diaphragms consistent with underlying emphysema seen better advantage on prior CTA chest. There is a vague nodular opacity seen in the right lateral lung base that may represent nodular of postinflammatory foci which were seen to better advantage on prior CTA chest. Minor linear atelectasis left medial lung base. Mild chronic pleural thickening both CP angle regions right greater than left. No acute consolidation.
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
--- NOTE | 2018-05-07 07:26 | CP.PCM.PN ---
<Tnoa Ariza - Last Filed: 05/07/18 12:13> Subjective - Date & Time of Evaluation Date of Evaluation: 05/07/18 Time of Evaluation: 07:25 - Subjective Subjective: Medicine progress note for Dr. Rojas Patient was seen and examined at bedside in no acute distress. Patient is oriented x3 three, however still sees bugs in the room and admits to tremors. Patient states his breathing has improved, but still short of breath and coughing. He denies chest pain, abdominal pain, nausea, vomiting, fevers. Objective - Vital Signs/Intake and Output Vital Signs (last 24 hours): Temp Pulse Resp BP Pulse Ox 97.6 F 93 H 18 119/82 100 05/07/18 06:17 05/07/18 06:17 05/07/18 06:17 05/07/18 06:17 05/06/18 00:30 - Medications Medications: Current Medications Albuterol (Ventolin Hfa 90 Mcg/Actuation (8 G)) 1 puff INH RQ6 PRN PRN Reason: Shortness of Breath Last Admin: 05/06/18 08:26 Dose: 1 puff Albuterol Sulfate (Albuterol 0.042% Inhal Latonya (1.25mg/3ml) Ud) 1.25 mg INH RQ3 PRN PRN Reason: shortness of breath Albuterol/Ipratropium (Duoneb 3 Mg/0.5 Mg (3 Ml) Ud) 3 ml INH RQ6 PRN PRN Reason: Shortness of Breath Budesonide (Pulmicort Respules) 0.5 mg INH RQ12 [facility] Last Admin: 05/06/18 09:15 Dose: 0.5 mg Clonidine HCl (Catapres) 0.1 mg PO Q6 PRN PRN Reason: Symptoms of alcohol withdrawl Folic Acid (Folic Acid) 1 mg PO DAILY [facility] Last Admin: 05/06/18 09:10 Dose: 1 mg Gabapentin (Neurontin) 100 mg PO TID [facility] Last Admin: 05/06/18 17:10 Dose: 100 mg Lorazepam (Ativan) 1 mg PO Q6 [facility] PRN Reason: Taper Stop: 05/10/18 13:44 Last Admin: 05/07/18 06:11 Dose: 1 mg Lorazepam (Ativan) 1 mg PO Q4H PRN PRN Reason: Agitation Mirtazapine (Remeron) 15 mg PO HS [facility] Last Admin: 05/06/18 22:09 Dose: 15 mg Multivitamins (Hexavitamin) 1 tab PO DAILY [facility] Last Admin: 05/06/18 09:10 Dose: 1 tab Pantoprazole Sodium (Protonix Ec Tab) 40 mg PO DAILY [facility] Last Admin: 05/06/18 09:10 Dose: 40 mg Prednisone (Prednisone Tab) 20 mg PO BID [facility] Last Admin: 05/06/18 17:36 Dose: 20 mg Thiamine HCl (Vitamin B1 Tab) 100 mg PO DAILY [facility] Last Admin: 05/06/18 09:10 Dose: 100 mg Trazodone HCl (Desyrel) 50 mg PO HS PRN PRN Reason: Insomnia - Labs Labs: 05/06/18 09:18 05/06/18 09:18 - Additional Findings Additional findings: - Constitutional Appears: No Acute Distress, cachectic - Head Exam Head Exam: ATRAUMATIC, NORMAL INSPECTION - Eye Exam Eye Exam: Normal appearance - ENT Exam ENT Exam: Mucous Membranes Dry - Respiratory Exam Respiratory Exam: Rales, Decreased breath sounds, NORMAL BREATHING PATTERN. absent: Respiratory Distress, Rhonchi, Wheezes - Cardiovascular Exam Cardiovascular Exam: REGULAR RHYTHM, +S1, +S2 - GI/Abdominal Exam GI & Abdominal Exam: Soft, Normal Bowel Sounds. absent: Distended, Firm, Tenderness - Extremities Exam Extremities Exam: Normal Inspection. absent: Pedal Edema, Tenderness - Neurological Exam Neurological Exam: Oriented x3. absent: Alert (lethargic) - Psychiatric Exam Psychiatric exam: Flat Affect - Skin Skin Exam: Dry, Intact, Warm Assessment and Plan (1) COPD (chronic obstructive pulmonary disease) Status: Acute (2) Alcohol use disorder Status: Acute (3) Depression Status: Acute (4) History of gastric ulcer Status: Acute - Assessment and Plan (Free Text) Plan: (1) COPD (chronic obstructive pulmonary disease) Assessment & Plan: CXR: Lungs are hyperinflated with flattened diaphragms consistent with underlying emphysema seen better advantage on prior CTA chest. There is a vague nodular opacity seen in the right lateral lung base that may represent nodular of postinflammatory foci which were seen to better advantage on prior CTA chest. Minor linear atelectasis left medial lung base. Mild chronic pleural thickening both CP angle regions right greater than left. No acute consolidation. Chest CT: f/u Medications: * Advair 500/50 (switched from pulmicort) * Duonebs Q6h prn * Albuterol Q3h prn * Prednisone 20mg PO BID (2) Alcohol use disorder Assessment & Plan: Management per psychiatry (3) Depression Assessment & Plan: Hx of depression and suicidal ideation Management per psychiatry (4) History of gastric ulcer Assessment & Plan: Continue protonix 40mg PO daily <Suman Rojas H - Last Filed: 05/07/18 15:09> Objective - Vital Signs/Intake and Output Vital Signs (last 24 hours): Temp Pulse Resp BP Pulse Ox 97.6 F 93 H 18 119/82 100 05/07/18 06:17 05/07/18 06:17 05/07/18 06:17 05/07/18 06:17 05/06/18 00:30 - Medications Medications: Current Medications Albuterol (Ventolin Hfa 90 Mcg/Actuation (8 G)) 1 puff INH RQ6 PRN PRN Reason: Shortness of Breath Last Admin: 05/06/18 08:26 Dose: 1 puff Albuterol Sulfate (Albuterol 0.042% Inhal Latonya (1.25mg/3ml) Ud) 1.25 mg INH RQ3 PRN PRN Reason: shortness of breath Albuterol/Ipratropium (Duoneb 3 Mg/0.5 Mg (3 Ml) Ud) 3 ml INH RQ6 PRN PRN Reason: Shortness of Breath Budesonide (Pulmicort Respules) 0.5 mg INH RQ12 [facility] Last Admin: 05/07/18 08:23 Dose: 0.5 mg Clonidine HCl (Catapres) 0.1 mg PO Q6 PRN PRN Reason: Symptoms of alcohol withdrawl Folic Acid (Folic Acid) 1 mg PO DAILY [facility] Last Admin: 05/07/18 10:00 Dose: 1 mg Gabapentin (Neurontin) 100 mg PO TID [facility] Last Admin: 05/07/18 10:00 Dose: 100 mg Lorazepam (Ativan) 1 mg PO Q6 [facility] PRN Reason: Taper Stop: 05/10/18 13:44 Last Admin: 05/07/18 06:11 Dose: 1 mg Lorazepam (Ativan) 1 mg PO Q4H PRN PRN Reason: Agitation Mirtazapine (Remeron) 15 mg PO HS [facility] Last Admin: 05/06/18 22:09 Dose: 15 mg Multivitamins (Hexavitamin) 1 tab PO DAILY [facility] Last Admin: 05/07/18 10:00 Dose: 1 tab Pantoprazole Sodium (Protonix Ec Tab) 40 mg PO DAILY [facility] Last Admin: 05/07/18 10:00 Dose: 40 mg Prednisone (Prednisone Tab) 20 mg PO BID [facility] Last Admin: 05/07/18 10:00 Dose: 20 mg Thiamine HCl (Vitamin B1 Tab) 100 mg PO DAILY [facility] Last Admin: 05/07/18 10:52 Dose: 100 mg Trazodone HCl (Desyrel) 50 mg PO HS PRN PRN Reason: Insomnia - Labs Labs: 05/07/18 08:24 05/07/18 08:24 Attending/Attestation - Attestation I have personally seen and examined this patient.: Yes I have fully participated in the care of the patient.: Yes I have reviewed all pertinent clinical information, including history, physical exam and plan: Yes Notes (Text): 05/07/18 15:04 Medical attending: Patient was seen and examined by me. Agree with the above note by the resident The patient was in his room walking on hiw own when we saw him. He was not short of breath, however listening to his lungs on exam revealed distant breath sounds. The patient later had CT scan, it was very hyperinflated - a reflection of his extensive COPD/Emphesema, but did not show pleural effusions or pulmonary nodlues or masses. His pulmicort has been changed to Christiano Rojas
[2018-05-07] MEDS: Budesonide 0.5 mg/2 ml Inhal Susp UD INH SCH ×2 (08:23→20:07)
[2018-05-07 08:36] LABS: BASO % 0.2 % (0.0-2.0); EOS % 0.1 % (0.0-4.0); HEMOGLOBIN 13.5 g/dL (12.0-18.0); LYMPH % 19.3 % (20.0-40.0); MEAN CORPUSCULAR HEMOGLOBIN 33.7 pg (27.0-31.0); MEAN CORPUSCULAR HGB CONC 34.7 g/dL (33.0-37.0); MEAN PLATELET VOLUME 9.4 fL (7.2-11.7); MONO # 0.2 K/uL (0.0-0.8); MONO % 3.5 % (0.0-10.0); NEUT % 76.9 % (50.0-75.0); NRBC % 0.1 % (0.0-2.0); RBC 4.01 Mil/uL (4.40-5.90); RED CELL DISTRIBUTION WIDTH 16.8 % (11.5-14.5); WHITE BLOOD COUNT 5.1 K/uL (4.8-10.8)
[2018-05-07 08:55] LABS: ALB/GLOB RATIO 1.3 (1.0-2.1); ALBUMIN 3.5 g/dL (3.5-5.0); ALT/SGPT 45 U/L (21-72); AST/SGOT 70 U/L (17-59); BLOOD UREA NITROGEN 9 mg/dL (9-20); CALCIUM 8.8 mg/dl (8.6-10.4); GFR AFRICAN-AMERICAN > 60; GFR NON-AFRICAN AMERICAN > 60
[2018-05-07] MEDS: Pantoprazole 40 mg EC Tab PO SCH (10:00)
[2018-05-07] MEDS: Multiple Vitamins Tab PO SCH (10:00)
--- NOTE | 2018-05-07 12:57 | CT ---
PROCEDURE: CT Chest without contrast HISTORY: sob,productive cough COMPARISON: CT angiography of the pulmonary arteries performed 10/22/2017. TECHNIQUE: Contiguous axial images were obtained through the chest without intravenous contrast enhancement. Sagittal and coronal reconstructions were performed. Radiation dose (DLP): 173.9 mGy-cm. This CT exam was performed using one or more of the following dose reduction techniques: Automated exposure control, adjustment of the mA and/or kV according to patient size, and/or use of iterative reconstruction technique. FINDINGS: LUNGS: Diffuse emphysema. Visualized airway clear. MEDIASTINUM: Unremarkable thoracic aorta. No aneurysm. Normal sized heart. Main pulmonary artery unremarkable. No vascular congestion. No lymphadenopathy. PLEURA: No pleural fluid. No pneumothorax. BONES: Old right lateral 7th and 8th rib fractures. No acute fracture. No destructive lesion. UPPER ABDOMEN: Grossly unremarkable. Coil mass in the gastroduodenal artery. OTHER FINDINGS: None. IMPRESSION: Diffuse emphysema. No pulmonary nodule, mass or consolidation.
--- NOTE | 2018-05-07 18:00 | PCM.PYCHPN ---
Psychiatric Progress Note - Psychiatric Progress Note Patient seen today, length of contact: 15 min Patient Chief Complaint: I m feeling depressed.' Problems Identified/Issues Discussed: Patient seen and evaluated, chart reviewed and discussed with the nurse. Patient reports depressed mood and at times feelings of hopelessness and helplessness. As per the staff patient remained isolated and withdrawn. He reports poor sleep and poor appetite. Patient reports withdrawal symptoms including cramps, nausea, anxiety, and headaches. He is tolerating the withdrawal medications and denies any side effects. Symptoms are improving and he needs more time for stabilization Supportive therapy and psychoeducation were given. Medication Change: Yes Medical Record Reviewed: Yes Mental Status Examination - Cognitive Function Orientation: Person, Place, Situation, Time Memory: Intact Attention: WNL Concentration: Poor Association: WNL Fund of Knowledge: Poor - Mood Mood: Depressed, Anxious - Affect Affect: Constricted, Depressed - Speech Speech: Soft - Formal Thought Process Formal Thought Process: No Impairment - Suicidal Ideation Suicidal Ideation: No - Homicidal Ideation Homicidal Ideation: No Goal/Treatment Plan - Goal/Treatment Plan Need for Continued Stay: Severe depression anxiety, Severe functional impairment Progress Toward Problem(s) and Goals/Treatment Plan: Major depressive disorder recurrent severe without psychotic features CBT Psychoeducation Supportive therapy, group therapy, individual therapy Trazodone 50 mg by mouth daily at bedtime Gabapentin 100 mg po TID Remeron 15 mg PO QHS Alcohol use disorder severe CBT Psychoeducation Supportive therapy, individual therapy Use [place] for abstinence Alcohol withdrawal uncomplicated CBT Psychoeducation Supportive therapy, individual therapy Ativan when necessary Ativan taper Folic acid/thiamine/multivitamin Asthma Continue inhaler - Smoking Cessation Smoking Cessation Initiated: No
--- NOTE | 2018-05-08 07:27 | CP.PCM.PN ---
<Tona Ariza - Last Filed: 05/08/18 13:22> Subjective - Date & Time of Evaluation Date of Evaluation: 05/08/18 Time of Evaluation: 07:27 - Subjective Subjective: Medicine progress note for Dr. Rojas Patient was seen and examined at bedside in no acute distress. Patient is oriented x3 three and no longer having visual hallucinations. He also says his tremors are better. Patient states his breathing has improved with the nebulizers, but still coughing. He denies chest pain, abdominal pain, nausea, vomiting, fevers. Objective - Vital Signs/Intake and Output Vital Signs (last 24 hours): Temp Pulse Resp BP Pulse Ox 97.6 F 107 H 18 139/83 100 05/07/18 06:17 05/07/18 15:57 05/07/18 06:17 05/07/18 15:57 05/06/18 00:30 - Medications Medications: Current Medications Albuterol (Ventolin Hfa 90 Mcg/Actuation (8 G)) 1 puff INH RQ6 PRN PRN Reason: Shortness of Breath Last Admin: 05/06/18 08:26 Dose: 1 puff Albuterol Sulfate (Albuterol 0.042% Inhal Latonya (1.25mg/3ml) Ud) 1.25 mg INH RQ3 PRN PRN Reason: shortness of breath Albuterol/Ipratropium (Duoneb 3 Mg/0.5 Mg (3 Ml) Ud) 3 ml INH RQ6 PRN PRN Reason: Shortness of Breath Budesonide (Pulmicort Respules) 0.5 mg INH RQ12 [facility] Last Admin: 05/07/18 20:07 Dose: 0.5 mg Clonidine HCl (Catapres) 0.1 mg PO Q6 PRN PRN Reason: Symptoms of alcohol withdrawl Folic Acid (Folic Acid) 1 mg PO DAILY [facility] Last Admin: 05/07/18 10:00 Dose: 1 mg Gabapentin (Neurontin) 100 mg PO TID [facility] Last Admin: 05/07/18 17:38 Dose: 100 mg Lorazepam (Ativan) 1 mg PO Q6 [facility] PRN Reason: Taper Stop: 05/10/18 13:44 Last Admin: 05/08/18 06:43 Dose: 1 mg Lorazepam (Ativan) 1 mg PO Q4H PRN PRN Reason: Agitation Mirtazapine (Remeron) 15 mg PO HS [facility] Last Admin: 05/07/18 22:05 Dose: 15 mg Multivitamins (Hexavitamin) 1 tab PO DAILY [facility] Last Admin: 05/07/18 10:00 Dose: 1 tab Pantoprazole Sodium (Protonix Ec Tab) 40 mg PO DAILY [facility] Last Admin: 05/07/18 10:00 Dose: 40 mg Prednisone (Prednisone Tab) 20 mg PO BID [facility] Last Admin: 05/07/18 17:55 Dose: 20 mg Sertraline HCl (Zoloft) 50 mg PO DAILY [facility] Thiamine HCl (Vitamin B1 Tab) 100 mg PO DAILY [facility] Last Admin: 05/07/18 10:52 Dose: 100 mg Trazodone HCl (Desyrel) 50 mg PO HS PRN PRN Reason: Insomnia Last Admin: 05/07/18 22:05 Dose: 50 mg - Labs Labs: 05/07/18 08:24 05/07/18 08:24 - Additional Findings Additional findings: - Constitutional Appears: No Acute Distress, cachectic - Head Exam Head Exam: ATRAUMATIC, NORMAL INSPECTION - Eye Exam Eye Exam: Normal appearance - ENT Exam ENT Exam: Mucous Membranes Dry - Respiratory Exam Respiratory Exam: Rales, Decreased breath sounds, NORMAL BREATHING PATTERN. absent: Respiratory Distress, Rhonchi, Wheezes - Cardiovascular Exam Cardiovascular Exam: REGULAR RHYTHM, +S1, +S2 - GI/Abdominal Exam GI & Abdominal Exam: Soft, Normal Bowel Sounds. absent: Distended, Firm, Tenderness - Extremities Exam Extremities Exam: Normal Inspection. absent: Pedal Edema, Tenderness - Neurological Exam Neurological Exam: Oriented x3. - Psychiatric Exam Psychiatric exam: Flat Affect - Skin Skin Exam: Dry, Intact, Warm Assessment and Plan (1) COPD (chronic obstructive pulmonary disease) Status: Acute (2) Alcohol use disorder Status: Acute (3) Depression Status: Acute (4) History of gastric ulcer Status: Acute - Assessment and Plan (Free Text) Plan: (1) COPD (chronic obstructive pulmonary disease) Assessment & Plan: CXR: Lungs are hyperinflated with flattened diaphragms consistent with underlying emphysema seen better advantage on prior CTA chest. There is a vague nodular opacity seen in the right lateral lung base that may represent nodular of postinflammatory foci which were seen to better advantage on prior CTA chest. Minor linear atelectasis left medial lung base. Mild chronic pleural thickening both CP angle regions right greater than left. No acute consolidation. Chest CT: diffuse emphysema; no nodules, masses, or consolidation Medications: * Advair 500/50 (switched from pulmicort) * Spiriva 1puff daily * Duonebs Q6h prn * Albuterol Q3h prn * Prednisone 20mg PO BID (2) Intermittent dysphagia Assessment & Plan: Patient complaining of feeling "something stuck in his throat" Soft tissue Neck CT: f/u (3) Alcohol use disorder Assessment & Plan: Management per psychiatry (4) Depression Assessment & Plan: Hx of depression and suicidal ideation Management per psychiatry (5) History of gastric ulcer Assessment & Plan: Continue protonix 40mg PO daily <Suman Rojas H - Last Filed: 05/08/18 15:05> Objective - Vital Signs/Intake and Output Vital Signs (last 24 hours): Temp Pulse Resp BP Pulse Ox 97.6 F 107 H 18 139/83 100 05/07/18 06:17 05/07/18 15:57 05/07/18 06:17 05/07/18 15:57 05/06/18 00:30 - Medications Medications: Current Medications Albuterol (Ventolin Hfa 90 Mcg/Actuation (8 G)) 1 puff INH RQ6 PRN PRN Reason: Shortness of Breath Last Admin: 05/06/18 08:26 Dose: 1 puff Albuterol Sulfate (Albuterol 0.042% Inhal Latonya (1.25mg/3ml) Ud) 1.25 mg INH RQ3 PRN PRN Reason: shortness of breath Albuterol/Ipratropium (Duoneb 3 Mg/0.5 Mg (3 Ml) Ud) 3 ml INH RQ6 PRN PRN Reason: Shortness of Breath Clonidine HCl (Catapres) 0.1 mg PO Q6 PRN PRN Reason: Symptoms of alcohol withdrawl Folic Acid (Folic Acid) 1 mg PO DAILY [facility] Last Admin: 05/08/18 10:42 Dose: 1 mg Gabapentin (Neurontin) 100 mg PO TID [facility] Last Admin: 05/08/18 13:00 Dose: 100 mg Lidocaine (Lidoderm) 1 ea TD DAILY [facility] Last Admin: 05/08/18 14:55 Dose: 1 ea Lorazepam (Ativan) 1 mg PO Q8 [facility] PRN Reason: Taper Stop: 05/10/18 13:44 Last Admin: 05/08/18 14:50 Dose: Not Given Lorazepam (Ativan) 1 mg PO Q4H PRN PRN Reason: Agitation Last Admin: 05/08/18 13:28 Dose: 1 mg Mirtazapine (Remeron) 15 mg PO HS [facility] Last Admin: 05/07/18 22:05 Dose: 15 mg Multivitamins (Hexavitamin) 1 tab PO DAILY [facility] Last Admin: 05/08/18 10:42 Dose: 1 tab Pantoprazole Sodium (Protonix Ec Tab) 40 mg PO DAILY [facility] Last Admin: 05/08/18 10:44 Dose: 40 mg Prednisone (Prednisone Tab) 20 mg PO BID [facility] Last Admin: 05/08/18 14:45 Dose: 20 mg Fluticasone/Salmeterol (Advair Diskus 500/50) 1 puff INH RQ12 [facility] Sertraline HCl (Zoloft) 50 mg PO DAILY [facility] Last Admin: 05/08/18 10:42 Dose: 50 mg Thiamine HCl (Vitamin B1 Tab) 100 mg PO DAILY [facility] Last Admin: 05/08/18 10:44 Dose: 100 mg Tiotropium [place] (Spiriva) 18 mcg INH RQ24 [facility] Trazodone HCl (Desyrel) 50 mg PO HS PRN PRN Reason: Insomnia Last Admin: 05/07/18 22:05 Dose: 50 mg - Labs Labs: 05/08/18 08:18 05/08/18 08:18 Attending/Attestation - Attestation I have personally seen and examined this patient.: Yes I have fully participated in the care of the patient.: Yes I have reviewed all pertinent clinical information, including history, physical exam and plan: Yes Notes (Text): 05/08/18 15:00 Medical attending: Patient was seen and examined by me. Agree with the above note by the resident The patient underwent CT of the chest - it did not show any masses or suspicious nodules - but that he does have extensive emphesema/COPD Will check CT of the soft tissue of the neck as he reports ongoing difficulty swallowing Suman Rojas
[2018-05-08 08:32] LABS: BASO % 0.1 % (0.0-2.0); EOS % 0.2 % (0.0-4.0); LYMPH # 1.1 K/uL (1.0-4.3); LYMPH % 15.4 % (20.0-40.0); MEAN CELL VOLUME 97.8 fL (80.0-94.0); MEAN CORPUSCULAR HEMOGLOBIN 33.6 pg (27.0-31.0); MEAN CORPUSCULAR HGB CONC 34.4 g/dL (33.0-37.0); MEAN PLATELET VOLUME 9.5 fL (7.2-11.7); MONO # 0.3 K/uL (0.0-0.8); MONO % 3.7 % (0.0-10.0); NEUT # 5.9 K/uL (1.8-7.0); NEUT % 80.6 % (50.0-75.0); RBC 3.3 Mil/uL (4.40-5.90); RED CELL DISTRIBUTION WIDTH 16.6 % (11.5-14.5); WHITE BLOOD COUNT 7.3 K/uL (4.8-10.8)
[2018-05-08 08:36] LABS: HEMOGLOBIN 11.1 g/dL (12.0-18.0)
[2018-05-08 09:22] LABS: ALB/GLOB RATIO 1.2 (1.0-2.1); ALBUMIN 2.9 g/dL (3.5-5.0); ALT/SGPT 49 U/L (21-72); AST/SGOT 78 U/L (17-59); BLOOD UREA NITROGEN 14 mg/dL (9-20); CALCIUM 8.5 mg/dl (8.6-10.4); GFR AFRICAN-AMERICAN > 60; GFR NON-AFRICAN AMERICAN > 60
[2018-05-08] MEDS: Multiple Vitamins Tab PO SCH (10:42)
[2018-05-08] MEDS: Pantoprazole 40 mg EC Tab PO SCH (10:44)
[2018-05-08] MEDS: Lidocaine 5% Patch TD SCH (14:55)
--- NOTE | 2018-05-08 15:05 | PCM.PYCHPN ---
Psychiatric Progress Note - Psychiatric Progress Note Patient seen today, length of contact: 15 min Patient Chief Complaint: I m still withdrawing.' Problems Identified/Issues Discussed: Patient seen and evaluated, chart reviewed and discussed with the nurse. As per the staff pt fell down yesterday. He denies any injuries. Patient still reports depressed mood and at times feelings of hopelessness and helplessness. As per the staff patient remained isolated and withdrawn. Patient reports withdrawal symptoms including cramps, shakes, anxiety, and headaches. He is tolerating the withdrawal medications and denies any side effects. Symptoms are improving and he needs more time for stabilization Supportive therapy and psychoeducation were given. Medication Change: Yes Medical Record Reviewed: Yes Mental Status Examination - Cognitive Function Orientation: Person, Place, Situation, Time Memory: Intact Attention: WNL Concentration: Poor Association: WNL Fund of Knowledge: Poor - Mood Mood: Depressed, Anxious - Affect Affect: Constricted, Depressed - Speech Speech: Soft - Formal Thought Process Formal Thought Process: No Impairment - Suicidal Ideation Suicidal Ideation: No - Homicidal Ideation Homicidal Ideation: No Goal/Treatment Plan - Goal/Treatment Plan Need for Continued Stay: Severe depression anxiety, Severe functional impairment Progress Toward Problem(s) and Goals/Treatment Plan: Major depressive disorder recurrent severe without psychotic features CBT Psychoeducation Supportive therapy, group therapy, individual therapy Trazodone 50 mg by mouth daily at bedtime Gabapentin 300 mg po TID Remeron 15 mg PO QHS Zoloft 100 mg PO Daily Alcohol use disorder severe CBT Psychoeducation Supportive therapy, individual therapy Use AR for abstinence Alcohol withdrawal uncomplicated CBT Psychoeducation Supportive therapy, individual therapy Ativan when necessary Ativan taper Folic acid/thiamine/multivitamin Asthma Continue inhaler
--- NOTE | 2018-05-08 15:52 | CT ---
PROCEDURE: CT NECK WITHOUT CONTRAST HISTORY: "feels lump in throat";intermittent dysphagia COMPARISON: None. TECHNIQUE: CT of the neck without intravenous contrast. Coronal and sagittal reformats generated. Radiation dose: DLP 429.07 mGy-cm This CT exam was performed using one or more of the following dose reduction techniques: Automated exposure control, adjustment of the mA and/or kV according to patient size, and/or use of iterative reconstruction technique. FINDINGS: Examination is compromised by the lack of intravenous contrast. NASOPHARYNX: This appearance appears unremarkable diffusely. SUPRAHYOID NECK: No suspicious suprahyoid findings are appreciate including the oral cavity, upper epiglottis and valleculae bilaterally. The Upper oropharynx is grossly nonfocal as well. INFRAHYOID NECK: Unremarkable larynx, hypopharynx, and supraglottic space. Vocal cords intact. MASS: Identified though the study is performed without intravenous contrast limiting the interpretation. GLANDS: Nonenhanced appearance of the thyroid, bilateral submandibular and parotid glands is remarkable only for punctate calcification of the inferior margins of the left parotid superficial lobe, and 2-3 at the right. LYMPH NODES: Shotty lymph nodes identified in the supra and infrahyoid neck soft tissues. CERVICAL SPINE: Multilevel cervical spondylosis affects the inferior cervical spine with itches well as posterior osteophytes present. No fracture or spondylolisthesis grossly evident. OTHER FINDINGS: No definitive pattern of retained radiodense foreign body throughout the aerodigestive tract as imaged. Pulmonary emphysema seen in the bilateral visualized upper lung zones symmetrically. IMPRESSION: 1. Noncontrast neck CT fails demonstrate gross mass or other suspicious finding in the supra or infrahyoid neck. No retained radiodense foreign body appreciated throughout the aerodigestive tract in the neck. 2. A few punctate intra parotid calcifications are seen in the superficial portions of both parotid glands. 3. Incidental bilateral upper lobe emphysematous changes place
--- NOTE | 2018-05-08 20:38 | PCM.FALL ---
Post Fall Progress Note - Post Fall Fall Date: 05/08/18 Fall Time: 02:09 Description of Fall: patient slid down and landed on his buttocks, no reported trauma to head - Post Fall Exam Vital Sign: Temp Pulse Resp BP Pulse Ox 97.6 F 85 18 134/87 100 05/07/18 06:17 05/08/18 15:55 05/07/18 06:17 05/08/18 15:55 05/06/18 00:30 Eye Exam: Positive for: Pupils equal, Pupils reactive Nose Exam: Negative for: Bleeding Skin Exam: Negative for: Lacerations (no new lacerations) Mouth Exam: Negative for: Tongue bitten Neck Exam: Negative for: Tenderness, Tingling Spinal Exam: Positive for: Tenderness (chronic) Chest Exam: Negative for: Difficulty breathing Arm Exam: Negative for: Alteration in range of movement Leg Exam: Negative for: Alteration in range of movement
--- NOTE | 2018-05-08 20:42 | PCM.FALL ---
Post Fall Progress Note - Post Fall Fall Date: 05/08/18 Fall Time: 19:37 Description of Fall: Patient states he stood up to punch in in a phone number at the phone [employer], patient fell forward and landed on his right shoulder. Patient denied hitting his head. Patient has full range of motion of right arm and shoulder at baseline. Patient denies rotator cuff tenderness on physical exam and is able to do Hawkin's and neer's test without pain. - Post Fall Exam Vital Sign: Temp Pulse Resp BP Pulse Ox 97.6 F 85 18 134/87 100 05/07/18 06:17 05/08/18 15:55 05/07/18 06:17 05/08/18 15:55 05/06/18 00:30 Skull Exam: Negative for: Scalp wound, Scalp hematoma, Scalp depression Eye Exam: Positive for: Pupils equal, Pupils reactive Neck Exam: Negative for: Tenderness Spinal Exam: Positive for: Tenderness (chronic) Chest Exam: Negative for: Tenderness in collar bones Abdomen Exam: Negative for: Tenderness Pelvic Exam: Negative for: Tenderness, Hematuria Arm Exam: Negative for: Deformity Leg Exam: Negative for: Deformity
[2018-05-08] MEDS: Fluticasone-Salmeterol 500-50mcg Diskus INH SCH (20:46)
[2018-05-09] MEDS: Aluminum Hydroxide/Magnesium Hydroxide Susp (30 mL) PO PRN ×2 (00:22→23:45)
--- NOTE | 2018-05-09 07:10 | CP.PCM.PN ---
<Tona Ariza - Last Filed: 05/09/18 14:17> Subjective - Date & Time of Evaluation Date of Evaluation: 05/09/18 Time of Evaluation: 07:10 - Subjective Subjective: Medicine progress note for Dr. Rojas Patient was seen and examined at bedside in no acute distress. Patient is oriented x3, denies tremors, visual and auditory hallucinations. Patient states his breathing has improved with the nebulizers. Overnight, code star was called for this patient- s/p fall, he feels mild pain/sore on his buttocks. He denies chest pain, abdominal pain, nausea, vomiting, fevers. Objective - Vital Signs/Intake and Output Vital Signs (last 24 hours): Temp Pulse Resp BP Pulse Ox 97.6 F 90 18 131/81 100 05/09/18 06:35 05/09/18 06:35 05/09/18 06:35 05/09/18 06:35 05/06/18 00:30 - Medications Medications: Current Medications Al Hydrox/Mg Hydrox/Simethicone (Maalox 30 Ml) 30 ml PO PRN PRN PRN Reason: Indigestion / Heartburn Last Admin: 05/09/18 00:22 Dose: 30 ml Albuterol (Ventolin Hfa 90 Mcg/Actuation (8 G)) 1 puff INH RQ6 PRN PRN Reason: Shortness of Breath Last Admin: 05/06/18 08:26 Dose: 1 puff Albuterol Sulfate (Albuterol 0.042% Inhal Latonya (1.25mg/3ml) Ud) 1.25 mg INH RQ3 PRN PRN Reason: shortness of breath Albuterol/Ipratropium (Duoneb 3 Mg/0.5 Mg (3 Ml) Ud) 3 ml INH RQ6 PRN PRN Reason: Shortness of Breath Clonidine HCl (Catapres) 0.1 mg PO Q6 PRN PRN Reason: Symptoms of alcohol withdrawl Last Admin: 05/09/18 01:40 Dose: 0.1 mg Cyanocobalamin (Vitamin B12 1000 Mcg Tab) 1,000 mcg PO DAILY [facility] Folic Acid (Folic Acid) 1 mg PO DAILY [facility] Last Admin: 05/08/18 10:42 Dose: 1 mg Gabapentin (Neurontin) 300 mg PO TID [facility] Last Admin: 05/08/18 17:39 Dose: 300 mg Lidocaine (Lidoderm) 1 ea TD DAILY [facility] Last Admin: 05/08/18 14:55 Dose: 1 ea Lorazepam (Ativan) 1 mg PO Q8 [facility] PRN Reason: Taper Stop: 05/10/18 13:44 Last Admin: 05/09/18 06:18 Dose: 1 mg Lorazepam (Ativan) 1 mg PO Q4H PRN PRN Reason: Agitation Last Admin: 05/08/18 13:28 Dose: 1 mg Mirtazapine (Remeron) 15 mg PO HS [facility] Last Admin: 05/08/18 21:29 Dose: 15 mg Multivitamins (Hexavitamin) 1 tab PO DAILY [facility] Last Admin: 05/08/18 10:42 Dose: 1 tab Ondansetron HCl (Zofran Tab) 4 mg PO Q6H PRN PRN Reason: Nausea/Vomiting Last Admin: 05/08/18 22:00 Dose: 4 mg Ondansetron HCl (Zofran Inj) 4 mg IM Q6H PRN PRN Reason: Nausea, vomiting Last Admin: 05/09/18 02:22 Dose: 4 mg Pantoprazole Sodium (Protonix Ec Tab) 40 mg PO DAILY [facility] Last Admin: 05/08/18 10:44 Dose: 40 mg Prednisone (Prednisone Tab) 20 mg PO BID [facility] Last Admin: 05/08/18 17:17 Dose: 20 mg Fluticasone/Salmeterol (Advair Diskus 500/50) 1 puff INH RQ12 [facility] Last Admin: 05/08/18 20:46 Dose: 1 puff Sertraline HCl (Zoloft) 100 mg PO DAILY [facility] Thiamine HCl (Vitamin B1 Tab) 100 mg PO DAILY [facility] Last Admin: 05/08/18 10:44 Dose: 100 mg Tiotropium [place] (Spiriva) 18 mcg INH RQ24 [facility] Trazodone HCl (Desyrel) 50 mg PO HS PRN PRN Reason: Insomnia Last Admin: 05/07/18 22:05 Dose: 50 mg - Labs Labs: 05/08/18 08:18 05/08/18 08:18 - Additional Findings Additional findings: - Constitutional Appears: No Acute Distress, cachectic - Head Exam Head Exam: ATRAUMATIC, NORMAL INSPECTION - Eye Exam Eye Exam: Normal appearance - ENT Exam ENT Exam: Mucous Membranes Dry - Respiratory Exam Respiratory Exam: Rales, Decreased breath sounds, NORMAL BREATHING PATTERN. absent: Respiratory Distress, Rhonchi, Wheezes - Cardiovascular Exam Cardiovascular Exam: REGULAR RHYTHM, +S1, +S2 - GI/Abdominal Exam GI & Abdominal Exam: Soft, Normal Bowel Sounds. absent: Distended, Firm, Tenderness - Extremities Exam Extremities Exam: Normal Inspection. absent: Pedal Edema, Tenderness - Neurological Exam Neurological Exam: Oriented x3. - Psychiatric Exam Psychiatric exam: Flat Affect - Skin Skin Exam: Dry, Intact, Warm; no ecchymosis/abrasions/lesions/lacerations noted on buttocks. Assessment and Plan (1) COPD (chronic obstructive pulmonary disease) Status: Acute (2) Alcohol use disorder Status: Acute (3) Depression Status: Acute (4) History of gastric ulcer Status: Acute - Assessment and Plan (Free Text) Plan: (1) COPD (chronic obstructive pulmonary disease) Assessment & Plan: CXR: Lungs are hyperinflated with flattened diaphragms consistent with underlying emphysema seen better advantage on prior CTA chest. There is a vague nodular opacity seen in the right lateral lung base that may represent nodular of postinflammatory foci which were seen to better advantage on prior CTA chest. Minor linear atelectasis left medial lung base. Mild chronic pleural thickening both CP angle regions right greater than left. No acute consolidation. Chest CT: diffuse emphysema; no nodules, masses, or consolidation Medications: * Advair 500/50 (switched from pulmicort) * Spiriva 1puff daily * Duonebs Q6h prn * Albuterol Q3h prn * Prednisone 20mg PO daily (decreased to daily from BID on 05/09/18) (2) Intermittent dysphagia Assessment & Plan: Patient complaining of feeling "something stuck in his throat" Soft tissue Neck CT: few punctate intraparotid calcifications are seen in superficial portions of both parotid glands; incidental b/l upper lobe emphysematous changes place (3) Alcohol use disorder Assessment & Plan: Management per psychiatry (4) Depression Assessment & Plan: Hx of depression and suicidal ideation Management per psychiatry (5) History of gastric ulcer Assessment & Plan: Continue protonix 40mg PO daily <Suman Rojas H - Last Filed: 05/09/18 14:45> Objective - Vital Signs/Intake and Output Vital Signs (last 24 hours): Temp Pulse Resp BP Pulse Ox 97.6 F 90 18 131/81 100 05/09/18 06:35 05/09/18 06:35 05/09/18 06:35 05/09/18 06:35 05/06/18 00:30 - Medications Medications: Current Medications Al Hydrox/Mg Hydrox/Simethicone (Maalox 30 Ml) 30 ml PO PRN PRN PRN Reason: Indigestion / Heartburn Last Admin: 05/09/18 00:22 Dose: 30 ml Albuterol (Ventolin Hfa 90 Mcg/Actuation (8 G)) 1 puff INH RQ6 PRN PRN Reason: Shortness of Breath Last Admin: 05/06/18 08:26 Dose: 1 puff Albuterol Sulfate (Albuterol 0.042% Inhal Latonya (1.25mg/3ml) Ud) 1.25 mg INH RQ3 PRN PRN Reason: shortness of breath Albuterol/Ipratropium (Duoneb 3 Mg/0.5 Mg (3 Ml) Ud) 3 ml INH RQ6 PRN PRN Reason: Shortness of Breath Clonidine HCl (Catapres) 0.1 mg PO Q6 PRN PRN Reason: Symptoms of alcohol withdrawl Last Admin: 05/09/18 01:40 Dose: 0.1 mg Cyanocobalamin (Vitamin B12 1000 Mcg Tab) 1,000 mcg PO DAILY [facility] Last Admin: 05/09/18 10:32 Dose: 1,000 mcg Folic Acid (Folic Acid) 1 mg PO DAILY [facility] Last Admin: 05/09/18 10:33 Dose: 1 mg Gabapentin (Neurontin) 300 mg PO TID [facility] Last Admin: 05/09/18 14:06 Dose: Not Given Lidocaine (Lidoderm) 1 ea TD DAILY [facility] Last Admin: 05/09/18 10:37 Dose: Not Given Lorazepam (Ativan) 1 mg PO Q24H [facility] PRN Reason: Taper Stop: 05/10/18 13:44 Last Admin: 05/09/18 14:33 Dose: Not Given Lorazepam (Ativan) 1 mg PO Q4H PRN PRN Reason: Agitation Last Admin: 05/08/18 13:28 Dose: 1 mg Mirtazapine (Remeron) 15 mg PO HS [facility] Last Admin: 05/08/18 21:29 Dose: 15 mg Multivitamins (Hexavitamin) 1 tab PO DAILY [facility] Last Admin: 05/09/18 10:32 Dose: 1 tab Ondansetron HCl (Zofran Tab) 4 mg PO Q6H PRN PRN Reason: Nausea/Vomiting Last Admin: 05/08/18 22:00 Dose: 4 mg Ondansetron HCl (Zofran Inj) 4 mg IM Q6H PRN PRN Reason: Nausea, vomiting Last Admin: 05/09/18 02:22 Dose: 4 mg Pantoprazole Sodium (Protonix Ec Tab) 40 mg PO DAILY [facility] Last Admin: 05/09/18 10:35 Dose: 40 mg Prednisone (Prednisone Tab) 20 mg PO DAILY [facility] Fluticasone/Salmeterol (Advair Diskus 500/50) 1 puff INH RQ12 [facility] Last Admin: 05/09/18 08:11 Dose: 1 puff Sertraline HCl (Zoloft) 100 mg PO DAILY [facility] Last Admin: 05/09/18 10:32 Dose: 100 mg Thiamine HCl (Vitamin B1 Tab) 100 mg PO DAILY [facility] Last Admin: 05/09/18 10:33 Dose: 100 mg Tiotropium [place] (Spiriva) 18 mcg INH RQ24 [facility] Last Admin: 05/09/18 08:11 Dose: 18 mcg Trazodone HCl (Desyrel) 50 mg PO HS PRN PRN Reason: Insomnia Last Admin: 05/07/18 22:05 Dose: 50 mg - Labs Labs: 05/09/18 08:42 05/09/18 08:42 Attending/Attestation - Attestation I have personally seen and examined this patient.: Yes I have fully participated in the care of the patient.: Yes I have reviewed all pertinent clinical information, including history, physical exam and plan: Yes Notes (Text): 05/09/18 14:44 Medical attending: Patient was seen and examined by me, agrees the above note by the medical assembly. He reported feeling better today, we decreased the by mouth prednisone to just 1 time a day. We are continuing with the Advair, Spiriva, nebulizers at this moment. As reported above he is underwent a CT scan of the chest as well as a CT scan soft tissue of the neck and these did not show any masses or areas of potential malgnincy Thank you very much, Suman Rojas
[2018-05-09] MEDS: Fluticasone-Salmeterol 500-50mcg Diskus INH SCH ×2 (08:11→20:35)
[2018-05-09] MEDS: Tiotropium 18 mcg Cap For Inhalation INH SCH (08:11)
[2018-05-09 08:52] LABS: BASO % 0.1 % (0.0-2.0); EOS % 0.3 % (0.0-4.0); HEMOGLOBIN 11.8 g/dL (12.0-18.0); LYMPH # 1.2 K/uL (1.0-4.3); LYMPH % 13.3 % (20.0-40.0); MEAN CELL VOLUME 97.9 fL (80.0-94.0); MEAN CORPUSCULAR HEMOGLOBIN 33.8 pg (27.0-31.0); MEAN CORPUSCULAR HGB CONC 34.5 g/dL (33.0-37.0); MEAN PLATELET VOLUME 9.4 fL (7.2-11.7); MONO # 0.4 K/uL (0.0-0.8); MONO % 3.9 % (0.0-10.0); NEUT # 7.5 K/uL (1.8-7.0); NEUT % 82.4 % (50.0-75.0); RBC 3.51 Mil/uL (4.40-5.90); WHITE BLOOD COUNT 9.1 K/uL (4.8-10.8)
[2018-05-09 09:13] LABS: ALB/GLOB RATIO 1.4 (1.0-2.1); ALBUMIN 3.6 g/dL (3.5-5.0); ALT/SGPT 68 U/L (21-72); AST/SGOT 92 U/L (17-59); BLOOD UREA NITROGEN 15 mg/dL (9-20); CALCIUM 8.8 mg/dl (8.6-10.4); GFR AFRICAN-AMERICAN > 60; GFR NON-AFRICAN AMERICAN > 60
[2018-05-09] MEDS: Multiple Vitamins Tab PO SCH (10:32)
[2018-05-09] MEDS: Pantoprazole 40 mg EC Tab PO SCH (10:35)
[2018-05-09] MEDS: Lidocaine 5% Patch TD SCH (10:37)
[2018-05-09] MEDS: Albuterol HFA 90 mcg/actuation (8 g) INH PRN (17:59)
--- NOTE | 2018-05-10 04:20 | CP.PCM.PN ---
<Prateek Mora - Last Filed: 05/10/18 06:57> Subjective - Date & Time of Evaluation Date of Evaluation: 05/10/18 Time of Evaluation: 05:50 - Subjective Subjective: PGY1 Medicine Note for Dr. Rojas Patient seen and examined at bedside this morning. No acute events over night. Patient moved to observation room yesterday due to multiple falls. He did not fall overnight. Patient reports improved breathing, with improvement of his productive cough. He is still bringing up phlegm, white-yellowish, but it is occurring less and less. He denies any tremors or hallucinations. Denies any pain. Patient had multiple episodes of watery diarrhea. He also reports vomiting yesterday but tolerated his diet all day yesterday. No nausea at this time. Denies fevers, chills, chest pain. Objective - Vital Signs/Intake and Output Vital Signs (last 24 hours): Temp Pulse Resp BP Pulse Ox 97.6 F 91 H 18 133/85 100 05/09/18 06:35 05/09/18 17:28 05/09/18 06:35 05/09/18 17:28 05/06/18 00:30 - Medications Medications: Current Medications Al Hydrox/Mg Hydrox/Simethicone (Maalox 30 Ml) 30 ml PO PRN PRN PRN Reason: Indigestion / Heartburn Last Admin: 05/09/18 23:45 Dose: 30 ml Albuterol (Ventolin Hfa 90 Mcg/Actuation (8 G)) 1 puff INH RQ6 PRN PRN Reason: Shortness of Breath Last Admin: 05/09/18 17:59 Dose: 1 puff Albuterol Sulfate (Albuterol 0.042% Inhal Latonya (1.25mg/3ml) Ud) 1.25 mg INH RQ3 PRN PRN Reason: shortness of breath Albuterol/Ipratropium (Duoneb 3 Mg/0.5 Mg (3 Ml) Ud) 3 ml INH RQ6 PRN PRN Reason: Shortness of Breath Clonidine HCl (Catapres) 0.1 mg PO Q6 PRN PRN Reason: Symptoms of alcohol withdrawl Last Admin: 05/09/18 01:40 Dose: 0.1 mg Cyanocobalamin (Vitamin B12 1000 Mcg Tab) 1,000 mcg PO DAILY [facility] Last Admin: 05/09/18 10:32 Dose: 1,000 mcg Folic Acid (Folic Acid) 1 mg PO DAILY [facility] Last Admin: 05/09/18 10:33 Dose: 1 mg Gabapentin (Neurontin) 300 mg PO TID [facility] Last Admin: 05/09/18 17:44 Dose: 300 mg Lidocaine (Lidoderm) 1 ea TD DAILY [facility] Last Admin: 05/09/18 10:37 Dose: Not Given Lorazepam (Ativan) 1 mg PO Q24H [facility] PRN Reason: Taper Stop: 05/10/18 13:44 Last Admin: 05/09/18 14:33 Dose: Not Given Lorazepam (Ativan) 1 mg PO Q4H PRN PRN Reason: Agitation Last Admin: 05/08/18 13:28 Dose: 1 mg Mirtazapine (Remeron) 15 mg PO HS [facility] Last Admin: 05/09/18 21:16 Dose: 15 mg Multivitamins (Hexavitamin) 1 tab PO DAILY [facility] Last Admin: 05/09/18 10:32 Dose: 1 tab Ondansetron HCl (Zofran Tab) 4 mg PO Q6H PRN PRN Reason: Nausea/Vomiting Last Admin: 05/09/18 23:44 Dose: 4 mg Ondansetron HCl (Zofran Inj) 4 mg IM Q6H PRN PRN Reason: Nausea, vomiting Last Admin: 05/09/18 02:22 Dose: 4 mg Pantoprazole Sodium (Protonix Ec Tab) 40 mg PO DAILY [facility] Last Admin: 05/09/18 10:35 Dose: 40 mg Prednisone (Prednisone Tab) 20 mg PO DAILY [facility] Fluticasone/Salmeterol (Advair Diskus 500/50) 1 puff INH RQ12 [facility] Last Admin: 05/09/18 20:35 Dose: 1 puff Sertraline HCl (Zoloft) 100 mg PO DAILY [facility] Last Admin: 05/09/18 10:32 Dose: 100 mg Thiamine HCl (Vitamin B1 Tab) 100 mg PO DAILY [facility] Last Admin: 05/09/18 10:33 Dose: 100 mg Tiotropium [place] (Spiriva) 18 mcg INH RQ24 [facility] Last Admin: 05/09/18 08:11 Dose: 18 mcg Trazodone HCl (Desyrel) 50 mg PO HS PRN PRN Reason: Insomnia Last Admin: 05/09/18 21:16 Dose: 50 mg - Labs Labs: 05/09/18 08:42 05/09/18 08:42 - Constitutional Appears: No Acute Distress, Cachectic - Head Exam Head Exam: ATRAUMATIC, NORMOCEPHALIC - Eye Exam Eye Exam: Normal appearance - ENT Exam ENT Exam: Mucous Membranes Moist - Respiratory Exam Respiratory Exam: Decreased Breath Sounds, Rhonchi, Wheezes, NORMAL BREATHING PATTERN. absent: Respiratory Distress - Cardiovascular Exam Cardiovascular Exam: REGULAR RHYTHM, +S1, +S2 - GI/Abdominal Exam GI & Abdominal Exam: Soft. absent: Firm, Guarding, Rigid, Tenderness - Extremities Exam Extremities Exam: absent: Calf Tenderness, Pedal Edema - Neurological Exam Neurological Exam: Alert, Awake, CN II-XII Intact, Oriented x3 Additional comments: No tremors noted. - Psychiatric Exam Psychiatric exam: Flat Affect - Skin Skin Exam: Dry, Warm Assessment and Plan - Assessment and Plan (Free Text) Plan: (1) COPD (chronic obstructive pulmonary disease) Assessment & Plan: CXR: Lungs are hyperinflated with flattened diaphragms consistent with underlying emphysema seen better advantage on prior CTA chest. There is a vague nodular opacity seen in the right lateral lung base that may represent nodular of postinflammatory foci which were seen to better advantage on prior CTA chest. Minor linear atelectasis left medial lung base. Mild chronic pleural thickening both CP angle regions right greater than left. No acute consolidation. Chest CT: diffuse emphysema; no nodules, masses, or consolidation Medications: * Advair 500/50 (switched from pulmicort) * Spiriva 1puff daily * Duonebs Q6h prn * Albuterol Q3h prn * Prednisone 20mg PO daily (decreased to daily from BID on 05/09/18) (2) Intermittent dysphagia Assessment & Plan: Patient complaining of feeling "something stuck in his throat" Soft tissue Neck CT: few punctate intraparotid calcifications are seen in superficial portions of both parotid glands; incidental b/l upper lobe emphysematous changes place (3) Alcohol use disorder Assessment & Plan: Management per psychiatry (4) Depression Assessment & Plan: Hx of depression and suicidal ideation Management per psychiatry (5) History of gastric ulcer Assessment & Plan: Continue protonix 40mg PO daily Will discuss case with Dr. Crytsal Chandra Abby PGY1 <Rojas,Peter H - Last Filed: 05/10/18 09:24> Objective - Vital Signs/Intake and Output Vital Signs (last 24 hours): Temp Pulse Resp BP Pulse Ox 97.7 F 92 H 20 136/89 100 05/10/18 08:43 05/10/18 08:43 05/10/18 08:43 05/10/18 08:43 05/06/18 00:30 - Medications Medications: Current Medications Al Hydrox/Mg Hydrox/Simethicone (Maalox 30 Ml) 30 ml PO PRN PRN PRN Reason: Indigestion / Heartburn Last Admin: 05/09/18 23:45 Dose: 30 ml Albuterol (Ventolin Hfa 90 Mcg/Actuation (8 G)) 1 puff INH RQ6 PRN PRN Reason: Shortness of Breath Last Admin: 05/09/18 17:59 Dose: 1 puff Albuterol Sulfate (Albuterol 0.042% Inhal Latonya (1.25mg/3ml) Ud) 1.25 mg INH RQ3 PRN PRN Reason: shortness of breath Albuterol/Ipratropium (Duoneb 3 Mg/0.5 Mg (3 Ml) Ud) 3 ml INH RQ6 PRN PRN Reason: Shortness of Breath Clonidine HCl (Catapres) 0.1 mg PO Q6 PRN PRN Reason: Symptoms of alcohol withdrawl Last Admin: 05/09/18 01:40 Dose: 0.1 mg Cyanocobalamin (Vitamin B12 1000 Mcg Tab) 1,000 mcg PO DAILY [facility] Last Admin: 05/09/18 10:32 Dose: 1,000 mcg Folic Acid (Folic Acid) 1 mg PO DAILY [facility] Last Admin: 05/09/18 10:33 Dose: 1 mg Gabapentin (Neurontin) 300 mg PO TID [facility] Last Admin: 05/09/18 17:44 Dose: 300 mg Lidocaine (Lidoderm) 1 ea TD DAILY [facility] Last Admin: 05/09/18 10:37 Dose: Not Given Lorazepam (Ativan) 1 mg PO Q24H [facility] PRN Reason: Taper Stop: 05/10/18 13:44 Last Admin: 05/09/18 14:33 Dose: Not Given Lorazepam (Ativan) 1 mg PO Q4H PRN PRN Reason: Agitation Last Admin: 05/08/18 13:28 Dose: 1 mg Mirtazapine (Remeron) 15 mg PO HS [facility] Last Admin: 05/09/18 21:16 Dose: 15 mg Multivitamins (Hexavitamin) 1 tab PO DAILY [facility] Last Admin: 05/09/18 10:32 Dose: 1 tab Ondansetron HCl (Zofran Tab) 4 mg PO Q6H PRN PRN Reason: Nausea/Vomiting Last Admin: 05/09/18 23:44 Dose: 4 mg Ondansetron HCl (Zofran Inj) 4 mg IM Q6H PRN PRN Reason: Nausea, vomiting Last Admin: 05/09/18 02:22 Dose: 4 mg Pantoprazole Sodium (Protonix Ec Tab) 40 mg PO DAILY [facility] Last Admin: 05/09/18 10:35 Dose: 40 mg Prednisone (Prednisone Tab) 20 mg PO DAILY [facility] Fluticasone/Salmeterol (Advair Diskus 500/50) 1 puff INH RQ12 [facility] Last Admin: 05/10/18 07:59 Dose: 1 puff Sertraline HCl (Zoloft) 100 mg PO DAILY [facility] Last Admin: 05/09/18 10:32 Dose: 100 mg Thiamine HCl (Vitamin B1 Tab) 100 mg PO DAILY [facility] Last Admin: 05/09/18 10:33 Dose: 100 mg Tiotropium [place] (Spiriva) 18 mcg INH RQ24 [facility] Last Admin: 05/10/18 08:04 Dose: 18 mcg Trazodone HCl (Desyrel) 50 mg PO HS PRN PRN Reason: Insomnia Last Admin: 05/09/18 21:16 Dose: 50 mg - Labs Labs: 05/10/18 08:46 05/10/18 08:46 Attending/Attestation - Attestation I have personally seen and examined this patient.: Yes I have fully participated in the care of the patient.: Yes I have reviewed all pertinent clinical information, including history, physical exam and plan: Yes Notes (Text): 05/10/18 09:21 Medical attending: Patient was seen and examined by me. Agree with the above note by the resident The patient reported abdominal cramping and also some watery stools last night but not this morning. It is possible that the abdominal cramping and watery stools are from ongoing alcohol withdrawl - if this continues into tommorow then we will get a CT of the abdomen and pelvis was IV and PO contrast. The patient's CBC is stable, Hgb is up to 12. thank you Suman Rojas
[2018-05-10] MEDS: Fluticasone-Salmeterol 500-50mcg Diskus INH SCH ×2 (07:59→20:58)
[2018-05-10] MEDS: Tiotropium 18 mcg Cap For Inhalation INH SCH (08:04)
[2018-05-10 08:51] LABS: BASO % 0.3 % (0.0-2.0); EOS # 0.1 K/uL (0.0-0.7); EOS % 1.6 % (0.0-4.0); LYMPH # 1.9 K/uL (1.0-4.3); LYMPH % 21.5 % (20.0-40.0); MEAN CELL VOLUME 99.1 fL (80.0-94.0); MEAN CORPUSCULAR HEMOGLOBIN 33.6 pg (27.0-31.0); MEAN CORPUSCULAR HGB CONC 33.9 g/dL (33.0-37.0); MEAN PLATELET VOLUME 9.3 fL (7.2-11.7); MONO # 0.6 K/uL (0.0-0.8); MONO % 7.1 % (0.0-10.0); NEUT # 6.2 K/uL (1.8-7.0); NEUT % 69.5 % (50.0-75.0); NRBC % 0.1 % (0.0-2.0); RBC 3.58 Mil/uL (4.40-5.90); RED CELL DISTRIBUTION WIDTH 17.4 % (11.5-14.5); WHITE BLOOD COUNT 8.9 K/uL (4.8-10.8)
[2018-05-10 09:10] LABS: ALB/GLOB RATIO 1.3 (1.0-2.1); ALBUMIN 3.4 g/dL (3.5-5.0); ALT/SGPT 68 U/L (21-72); AST/SGOT 75 U/L (17-59); BLOOD UREA NITROGEN 16 mg/dL (9-20); CALCIUM 8.5 mg/dl (8.6-10.4); GFR AFRICAN-AMERICAN > 60; GFR NON-AFRICAN AMERICAN > 60
[2018-05-10] MEDS: Lidocaine 5% Patch TD SCH (09:32)
[2018-05-10] MEDS: Multiple Vitamins Tab PO SCH (09:52)
[2018-05-10] MEDS: Pantoprazole 40 mg EC Tab PO SCH (09:52)
--- NOTE | 2018-05-10 19:38 | PCM.PYCHPN ---
Psychiatric Progress Note - Psychiatric Progress Note Patient seen today, length of contact: 16 min Patient Chief Complaint: "I'm tired" Problems Identified/Issues Discussed: The pt is seen, chart reviewed, case discussed with staff. The pt is compliant with medications and reports no side-effects. Symptoms are improving but needs more time to stabilize. He is still weak, tired and he fell more than once b/c of not asking for help despite multiple warnings. After care discussed, support and psychoeducation given. Medication Change: No Medical Record Reviewed: Yes Mental Status Examination - Cognitive Function Orientation: Person, Place, Situation, Time Memory: Intact Attention: WNL Concentration: Poor Association: WNL Fund of Knowledge: Poor - Mood Mood: Depressed, Anxious - Affect Affect: Constricted - Speech Speech: Soft - Formal Thought Process Formal Thought Process: No Impairment - Suicidal Ideation Suicidal Ideation: No - Homicidal Ideation Homicidal Ideation: No Goal/Treatment Plan - Goal/Treatment Plan Need for Continued Stay: Severe depression anxiety, Discharge may exacerbated symptoms, Severe functional impairment Progress Toward Problem(s) and Goals/Treatment Plan: Continue medications Support and psychoeducation daily Attend groups and activities daily After care planning by GABE PT evcecilio Fall prevention Medicine help appreciated
--- NOTE | 2018-05-10 19:41 | PCM.PYCHPN ---
Psychiatric Progress Note - Psychiatric Progress Note Patient seen today, length of contact: 16 min Patient Chief Complaint: "My life is going downhill" Problems Identified/Issues Discussed: The pt is seen, chart reviewed, case discussed with staff. Support given. Fall risk discussed, he is more cooperative today. No new symptoms reported, improving slowly and needs more time Since he is still depressed remeron increased Gabapentin and trazodone discontinued bc of dizziness risk. No SEs from medications, risks discussed. After care discussed, he is Ok with going back to retirement Medication Change: Yes (see hpi) Medical Record Reviewed: Yes Mental Status Examination - Cognitive Function Orientation: Person, Place, Situation, Time Memory: Intact Attention: WNL Concentration: Poor Association: WNL Fund of Knowledge: Poor - Mood Mood: Depressed, Anxious - Affect Affect: Constricted - Speech Speech: Soft - Formal Thought Process Formal Thought Process: No Impairment - Suicidal Ideation Suicidal Ideation: No - Homicidal Ideation Homicidal Ideation: No Goal/Treatment Plan - Goal/Treatment Plan Need for Continued Stay: Severe depression anxiety, Discharge may exacerbated symptoms, Severe functional impairment Progress Toward Problem(s) and Goals/Treatment Plan: Continue medications Support and psychoeducation daily Attend groups and activities daily After care planning by GABE PT arabella Fall prevention Medicine help appreciated Estimated Date of D/C: 05/12/18
[2018-05-11] MEDS: Tiotropium 18 mcg Cap For Inhalation INH SCH (08:06)
[2018-05-11] MEDS: Fluticasone-Salmeterol 500-50mcg Diskus INH SCH ×2 (08:06→20:00)
--- NOTE | 2018-05-11 08:22 | CP.PCM.PN ---
<Prateek Mora - Last Filed: 05/11/18 08:20> Subjective - Date & Time of Evaluation Date of Evaluation: 05/11/18 Time of Evaluation: 07:50 - Subjective Subjective: PGY1 Medicine Note for Dr. Rojas Patient seen and examined at bedside this morning. No acute events overnight. Patient is resting comfortably in bed stating he is feeling much better today. He has much more energy this morning. He is no longer experiencing any abdominal pain or cramping or vomiting. Reports improving loose stools. He reports of his chronic cough. Patient no other complaints at this time. Objective - Vital Signs/Intake and Output Vital Signs (last 24 hours): Temp Pulse Resp BP Pulse Ox 98.1 F 82 20 133/89 100 05/11/18 06:14 05/11/18 06:14 05/11/18 06:14 05/11/18 06:14 05/06/18 00:30 - Medications Medications: Current Medications Al Hydrox/Mg Hydrox/Simethicone (Maalox 30 Ml) 30 ml PO Q6H PRN PRN Reason: Indigestion / Heartburn Albuterol (Ventolin Hfa 90 Mcg/Actuation (8 G)) 1 puff INH RQ6 PRN PRN Reason: Shortness of Breath Last Admin: 05/09/18 17:59 Dose: 1 puff Albuterol/Ipratropium (Duoneb 3 Mg/0.5 Mg (3 Ml) Ud) 3 ml INH RQ6 PRN PRN Reason: Shortness of Breath Clonidine HCl (Catapres) 0.1 mg PO Q6 PRN PRN Reason: Symptoms of alcohol withdrawl Last Admin: 05/09/18 01:40 Dose: 0.1 mg Cyanocobalamin (Vitamin B12 1000 Mcg Tab) 1,000 mcg PO DAILY [facility] Last Admin: 05/10/18 09:52 Dose: 1,000 mcg Folic Acid (Folic Acid) 1 mg PO DAILY [facility] Last Admin: 05/10/18 09:52 Dose: 1 mg Lidocaine (Lidoderm) 1 ea TD DAILY [facility] Last Admin: 05/10/18 09:32 Dose: Not Given Lorazepam (Ativan) 1 mg PO Q4H PRN PRN Reason: Agitation Last Admin: 05/10/18 09:52 Dose: 1 mg Mirtazapine (Remeron) 30 mg PO HS [facility] Last Admin: 05/10/18 21:12 Dose: 30 mg Multivitamins (Hexavitamin) 1 tab PO DAILY [facility] Last Admin: 05/10/18 09:52 Dose: 1 tab Ondansetron HCl (Zofran Tab) 4 mg PO Q6H PRN PRN Reason: Nausea/Vomiting Last Admin: 05/09/18 23:44 Dose: 4 mg Ondansetron HCl (Zofran Inj) 4 mg IM Q6H PRN PRN Reason: Nausea, vomiting Last Admin: 05/09/18 02:22 Dose: 4 mg Pantoprazole Sodium (Protonix Ec Tab) 40 mg PO DAILY [facility] Last Admin: 05/10/18 09:52 Dose: 40 mg Prednisone (Prednisone Tab) 20 mg PO DAILY [facility] Last Admin: 05/10/18 09:52 Dose: 20 mg Fluticasone/Salmeterol (Advair Diskus 500/50) 1 puff INH RQ12 [facility] Last Admin: 05/11/18 08:06 Dose: 1 puff Sertraline HCl (Zoloft) 100 mg PO DAILY [facility] Last Admin: 05/10/18 09:52 Dose: 100 mg Thiamine HCl (Vitamin B1 Tab) 100 mg PO DAILY [facility] Last Admin: 05/10/18 09:52 Dose: 100 mg Tiotropium [place] (Spiriva) 18 mcg INH RQ24 [facility] Last Admin: 05/11/18 08:06 Dose: 18 mcg - Labs Labs: 05/10/18 08:46 05/10/18 08:46 - Constitutional Appears: Non-toxic, No Acute Distress - Head Exam Head Exam: NORMAL INSPECTION - Eye Exam Eye Exam: EOMI, Normal appearance - ENT Exam ENT Exam: Mucous Membranes Moist - Respiratory Exam Respiratory Exam: Decreased Breath Sounds, NORMAL BREATHING PATTERN. absent: Accessory Muscle Use, Rales, Rhonchi, Wheezes, Respiratory Distress - Cardiovascular Exam Cardiovascular Exam: REGULAR RHYTHM, +S1, +S2 - GI/Abdominal Exam GI & Abdominal Exam: Soft, Normal Bowel Sounds. absent: Firm, Guarding, Rigid, Tenderness - Extremities Exam Extremities Exam: absent: Calf Tenderness, Pedal Edema - Neurological Exam Neurological Exam: Alert, Awake, CN II-XII Intact, Oriented x3 - Psychiatric Exam Psychiatric exam: Normal Affect, Normal Mood - Skin Skin Exam: Dry, Warm Assessment and Plan - Assessment and Plan (Free Text) Plan: (1) COPD (chronic obstructive pulmonary disease) Assessment & Plan: CXR: Lungs are hyperinflated with flattened diaphragms consistent with underlying emphysema seen better advantage on prior CTA chest. There is a vague nodular opacity seen in the right lateral lung base that may represent nodular of postinflammatory foci which were seen to better advantage on prior CTA chest. Minor linear atelectasis left medial lung base. Mild chronic pleural thickening both CP angle regions right greater than left. No acute consolidation. Chest CT: diffuse emphysema; no nodules, masses, or consolidation Medications: * Advair 500/50 (switched from pulmicort) * Spiriva 1puff daily * Duonebs Q6h prn * Albuterol Q3h prn * Prednisone 20mg PO daily (decreased to daily from BID on 05/09/18) (2) Intermittent dysphagia Assessment & Plan: Patient complaining of feeling "something stuck in his throat" Soft tissue Neck CT: few punctate intraparotid calcifications are seen in superficial portions of both parotid glands; incidental b/l upper lobe emphysematous changes place (3) Alcohol use disorder Assessment & Plan: Management per psychiatry (4) Depression Assessment & Plan: Hx of depression and suicidal ideation Management per psychiatry (5) History of gastric ulcer Assessment & Plan: Continue protonix 40mg PO daily Will discuss case with Dr. Crystal Chandra Abby PGY1 <Suman Rojas - Last Filed: 05/11/18 09:06> Objective - Vital Signs/Intake and Output Vital Signs (last 24 hours): Temp Pulse Resp BP Pulse Ox 98.1 F 82 20 133/89 100 05/11/18 06:14 05/11/18 06:14 05/11/18 06:14 05/11/18 06:14 05/06/18 00:30 - Medications Medications: Current Medications Al Hydrox/Mg Hydrox/Simethicone (Maalox 30 Ml) 30 ml PO Q6H PRN PRN Reason: Indigestion / Heartburn Albuterol (Ventolin Hfa 90 Mcg/Actuation (8 G)) 1 puff INH RQ6 PRN PRN Reason: Shortness of Breath Last Admin: 05/09/18 17:59 Dose: 1 puff Albuterol/Ipratropium (Duoneb 3 Mg/0.5 Mg (3 Ml) Ud) 3 ml INH RQ6 PRN PRN Reason: Shortness of Breath Clonidine HCl (Catapres) 0.1 mg PO Q6 PRN PRN Reason: Symptoms of alcohol withdrawl Last Admin: 05/09/18 01:40 Dose: 0.1 mg Cyanocobalamin (Vitamin B12 1000 Mcg Tab) 1,000 mcg PO DAILY [facility] Last Admin: 05/10/18 09:52 Dose: 1,000 mcg Folic Acid (Folic Acid) 1 mg PO DAILY [facility] Last Admin: 05/10/18 09:52 Dose: 1 mg Lidocaine (Lidoderm) 1 ea TD DAILY [facility] Last Admin: 05/10/18 09:32 Dose: Not Given Lorazepam (Ativan) 1 mg PO Q4H PRN PRN Reason: Agitation Last Admin: 05/10/18 09:52 Dose: 1 mg Mirtazapine (Remeron) 30 mg PO HS [facility] Last Admin: 05/10/18 21:12 Dose: 30 mg Multivitamins (Hexavitamin) 1 tab PO DAILY [facility] Last Admin: 05/10/18 09:52 Dose: 1 tab Ondansetron HCl (Zofran Tab) 4 mg PO Q6H PRN PRN Reason: Nausea/Vomiting Last Admin: 05/09/18 23:44 Dose: 4 mg Ondansetron HCl (Zofran Inj) 4 mg IM Q6H PRN PRN Reason: Nausea, vomiting Last Admin: 05/09/18 02:22 Dose: 4 mg Pantoprazole Sodium (Protonix Ec Tab) 40 mg PO DAILY [facility] Last Admin: 05/10/18 09:52 Dose: 40 mg Prednisone (Prednisone Tab) 20 mg PO DAILY [facility] Last Admin: 05/10/18 09:52 Dose: 20 mg Fluticasone/Salmeterol (Advair Diskus 500/50) 1 puff INH RQ12 [facility] Last Admin: 05/11/18 08:06 Dose: 1 puff Sertraline HCl (Zoloft) 100 mg PO DAILY [facility] Last Admin: 05/10/18 09:52 Dose: 100 mg Thiamine HCl (Vitamin B1 Tab) 100 mg PO DAILY [facility] Last Admin: 05/10/18 09:52 Dose: 100 mg Tiotropium [place] (Spiriva) 18 mcg INH RQ24 [facility] Last Admin: 05/11/18 08:06 Dose: 18 mcg - Labs Labs: 05/11/18 08:30 05/11/18 08:30 Attending/Attestation - Attestation I have personally seen and examined this patient.: Yes I have fully participated in the care of the patient.: Yes I have reviewed all pertinent clinical information, including history, physical exam and plan: Yes Notes (Text): 05/11/18 09:05 Medical attending: Patient was seen and examined by me. He reported his breathing was good when I came and saw him. He is also getting up on his own and moving around on the rolling walker in the [address] way. Per discussion with nursing his gait looked very brisk and stable when using a rolling walker. They have also noticed him without the walker in the hallway and the gait is much slower Today less stomach pain. Very minimal diarrhea. thank you Suman Rojas
[2018-05-11 08:54] LABS: BASO % 0.3 % (0.0-2.0); EOS # 0.1 K/uL (0.0-0.7); EOS % 1.2 % (0.0-4.0); HEMOGLOBIN 11.9 g/dL (12.0-18.0); LYMPH # 1.8 K/uL (1.0-4.3); LYMPH % 20.6 % (20.0-40.0); MEAN CELL VOLUME 98.2 fL (80.0-94.0); MEAN CORPUSCULAR HEMOGLOBIN 33.6 pg (27.0-31.0); MEAN CORPUSCULAR HGB CONC 34.2 g/dL (33.0-37.0); MEAN PLATELET VOLUME 8.7 fL (7.2-11.7); MONO # 0.6 K/uL (0.0-0.8); MONO % 7.5 % (0.0-10.0); NEUT # 6.1 K/uL (1.8-7.0); NEUT % 70.4 % (50.0-75.0); NRBC % 0.1 % (0.0-2.0); RBC 3.54 Mil/uL (4.40-5.90); WHITE BLOOD COUNT 8.7 K/uL (4.8-10.8)
[2018-05-11 09:04] LABS: ALB/GLOB RATIO 1.3 (1.0-2.1); ALBUMIN 3.4 g/dL (3.5-5.0); ALT/SGPT 62 U/L (21-72); AST/SGOT 59 U/L (17-59); BLOOD UREA NITROGEN 13 mg/dL (9-20); CALCIUM 8.5 mg/dl (8.6-10.4); GFR AFRICAN-AMERICAN > 60; GFR NON-AFRICAN AMERICAN > 60
[2018-05-11] MEDS: Multiple Vitamins Tab PO SCH (09:33)
[2018-05-11] MEDS: Pantoprazole 40 mg EC Tab PO SCH (09:33)
[2018-05-11] MEDS: Lidocaine 5% Patch TD SCH (09:34)
--- NOTE | 2018-05-11 11:35 | PCM.PYCHPN ---
Psychiatric Progress Note - Psychiatric Progress Note Patient seen today, length of contact: 16 min Patient Chief Complaint: "A little better" Problems Identified/Issues Discussed: The pt is seen, chart reviewed, case discussed with staff. Support given, CBT and ND used briefly No new symptoms reported, improving slowly and needs more time He is better than before No SEs from medications, risks discussed. After care discussed Medication Change: Yes Medical Record Reviewed: Yes Mental Status Examination - Cognitive Function Orientation: Person, Place, Situation, Time Memory: Intact Attention: WNL Concentration: Poor Association: WNL Fund of Knowledge: Poor - Mood Mood: Depressed, Anxious - Affect Affect: Constricted - Speech Speech: Soft - Formal Thought Process Formal Thought Process: No Impairment - Suicidal Ideation Suicidal Ideation: No - Homicidal Ideation Homicidal Ideation: No Goal/Treatment Plan - Goal/Treatment Plan Need for Continued Stay: Severe depression anxiety, Discharge may exacerbated symptoms, Severe functional impairment Progress Toward Problem(s) and Goals/Treatment Plan: Continue medications Support and psychoeducation daily Attend groups and activities daily After care planning by GABE PT arabella Fall prevention Medicine help appreciated Estimated Date of D/C: 05/13/18
[2018-05-12] MEDS: Fluticasone-Salmeterol 500-50mcg Diskus INH SCH ×2 (07:32→20:28)
[2018-05-12] MEDS: Tiotropium 18 mcg Cap For Inhalation INH SCH (07:33)
[2018-05-12 08:12] LABS: BASO % 0.2 % (0.0-2.0); EOS # 0.1 K/uL (0.0-0.7); EOS % 1.4 % (0.0-4.0); HEMOGLOBIN 10.2 g/dL (12.0-18.0); LYMPH # 1.4 K/uL (1.0-4.3); LYMPH % 22.3 % (20.0-40.0); MEAN CELL VOLUME 98.3 fL (80.0-94.0); MEAN CORPUSCULAR HEMOGLOBIN 33.7 pg (27.0-31.0); MEAN CORPUSCULAR HGB CONC 34.3 g/dL (33.0-37.0); MEAN PLATELET VOLUME 8.8 fL (7.2-11.7); MONO # 0.6 K/uL (0.0-0.8); MONO % 9.2 % (0.0-10.0); NEUT # 4.1 K/uL (1.8-7.0); NEUT % 66.9 % (50.0-75.0); RBC 3.02 Mil/uL (4.40-5.90); RED CELL DISTRIBUTION WIDTH 17.1 % (11.5-14.5); WHITE BLOOD COUNT 6.1 K/uL (4.8-10.8)
[2018-05-12 08:23] LABS: ALB/GLOB RATIO 1.2 (1.0-2.1); ALBUMIN 2.9 g/dL (3.5-5.0); ALT/SGPT 57 U/L (21-72); AST/SGOT 48 U/L (17-59); BLOOD UREA NITROGEN 14 mg/dL (9-20); GFR AFRICAN-AMERICAN > 60; GFR NON-AFRICAN AMERICAN > 60
[2018-05-12] MEDS: Pantoprazole 40 mg EC Tab PO SCH (09:21)
[2018-05-12] MEDS: Multiple Vitamins Tab PO SCH (09:21)
[2018-05-12] MEDS: Lidocaine 5% Patch TD SCH (09:22)
--- NOTE | 2018-05-12 10:00 | PCM.PYCHPN ---
Psychiatric Progress Note - Psychiatric Progress Note Patient seen today, length of contact: 16 min Patient Chief Complaint: I m still withdrawing.' Problems Identified/Issues Discussed: Patient seen and evaluated, chart reviewed and discussed with the nurse. As per the staff pt fell down yesterday. He denies any injuries. Patient still reports depressed mood and at times feelings of hopelessness and helplessness. As per the staff patient remained isolated and withdrawn. Patient reports withdrawal symptoms including cramps, shakes, anxiety, and headaches. He is tolerating the withdrawal medications and denies any side effects. Symptoms are improving and he needs more time for stabilization Supportive therapy and psychoeducation were given. Medication Change: Yes (see hpi) Medical Record Reviewed: Yes Mental Status Examination - Cognitive Function Orientation: Person, Place, Situation, Time Memory: Intact Attention: WNL Concentration: Poor Association: WNL Fund of Knowledge: Poor - Mood Mood: Depressed, Anxious - Affect Affect: Constricted - Speech Speech: Soft - Formal Thought Process Formal Thought Process: No Impairment - Suicidal Ideation Suicidal Ideation: No - Homicidal Ideation Homicidal Ideation: No Goal/Treatment Plan - Goal/Treatment Plan Need for Continued Stay: Severe depression anxiety, Discharge may exacerbated symptoms, Severe functional impairment Progress Toward Problem(s) and Goals/Treatment Plan: Major depressive disorder recurrent severe without psychotic features CBT Psychoeducation Supportive therapy, group therapy, individual therapy Trazodone 50 mg by mouth daily at bedtime Gabapentin 300 mg po TID Remeron 15 mg PO QHS Increase Zoloft 200 mg PO Daily Alcohol use disorder severe CBT Psychoeducation Supportive therapy, individual therapy Use MO for abstinence Alcohol withdrawal uncomplicated CBT Psychoeducation Supportive therapy, individual therapy Ativan when necessary Ativan taper Folic acid/thiamine/multivitamin Asthma Continue inhaler Estimated Date of D/C: 05/12/18
[2018-05-12] MEDS: Aluminum Hydroxide/Magnesium Hydroxide Susp (30 mL) PO PRN ×2 (13:37→18:45)
--- NOTE | 2018-05-12 16:35 | CP.PCM.PN ---
Subjective - Date & Time of Evaluation Date of Evaluation: 05/12/18 Time of Evaluation: 16:32 - Subjective Subjective: Medicine progress note for Dr. Rojas Patient was seen and examined at bedside in no acute distress. Patient states feels better and his breathing has improved He denies tremors, visual and auditory hallucinations. Patient has been walking with walker and states he feels more stable with the walker. He denies chest pain, abdominal pain, nausea , vomiting, fevers. Objective - Vital Signs/Intake and Output Vital Signs (last 24 hours): Temp Pulse Resp BP Pulse Ox 97.6 F 102 H 20 120/72 100 05/12/18 06:31 05/12/18 15:31 05/12/18 06:31 05/12/18 15:31 05/06/18 00:30 - Medications Medications: Current Medications Acetaminophen (Tylenol 325mg Tab) 650 mg PO Q6 PRN PRN Reason: Pain, moderate (4-7) Last Admin: 05/11/18 22:35 Dose: 650 mg Al Hydrox/Mg Hydrox/Simethicone (Maalox 30 Ml) 30 ml PO Q6H PRN PRN Reason: Indigestion / Heartburn Last Admin: 05/12/18 13:37 Dose: 30 ml Albuterol (Ventolin Hfa 90 Mcg/Actuation (8 G)) 1 puff INH RQ6 PRN PRN Reason: Shortness of Breath Last Admin: 05/09/18 17:59 Dose: 1 puff Albuterol/Ipratropium (Duoneb 3 Mg/0.5 Mg (3 Ml) Ud) 3 ml INH RQ6 PRN PRN Reason: Shortness of Breath Clonidine HCl (Catapres) 0.1 mg PO Q6 PRN PRN Reason: Symptoms of alcohol withdrawl Last Admin: 05/09/18 01:40 Dose: 0.1 mg Cyanocobalamin (Vitamin B12 1000 Mcg Tab) 1,000 mcg PO DAILY KATHY Last Admin: 05/12/18 09:21 Dose: 1,000 mcg Folic Acid (Folic Acid) 1 mg PO DAILY KATHY Last Admin: 05/12/18 09:21 Dose: 1 mg Lidocaine (Lidoderm) 1 ea TD DAILY KATHY Last Admin: 05/12/18 09:22 Dose: Not Given Loperamide HCl (Imodium) 2 mg PO Q6H PRN PRN Reason: Diarrhea Last Admin: 05/11/18 17:59 Dose: 2 mg Lorazepam (Ativan) 1 mg PO Q4H PRN PRN Reason: Agitation Last Admin: 05/10/18 09:52 Dose: 1 mg Mirtazapine (Remeron) 30 mg PO [facility] Last Admin: 05/11/18 21:18 Dose: 30 mg Multivitamins (Hexavitamin) 1 tab PO DAILY [facility] Last Admin: 05/12/18 09:21 Dose: 1 tab Ondansetron HCl (Zofran Tab) 4 mg PO Q6H PRN PRN Reason: Nausea/Vomiting Last Admin: 05/09/18 23:44 Dose: 4 mg Ondansetron HCl (Zofran Inj) 4 mg IM Q6H PRN PRN Reason: Nausea, vomiting Last Admin: 05/09/18 02:22 Dose: 4 mg Pantoprazole Sodium (Protonix Ec Tab) 40 mg PO DAILY [facility] Last Admin: 05/12/18 09:21 Dose: 40 mg Prednisone (Prednisone Tab) 20 mg PO DAILY [facility] Last Admin: 05/12/18 09:21 Dose: 20 mg Fluticasone/Salmeterol (Advair Diskus 500/50) 1 puff INH RQ12 [facility] Last Admin: 05/12/18 07:32 Dose: 1 puff Sertraline HCl (Zoloft) 200 mg PO DAILY [facility] Thiamine HCl (Vitamin B1 Tab) 100 mg PO DAILY [facility] Last Admin: 05/12/18 09:21 Dose: 100 mg Tiotropium [place] (Spiriva) 18 mcg INH RQ24 [facility] Last Admin: 05/12/18 07:33 Dose: 18 mcg Zolpidem Tartrate (Ambien) 5 mg PO [facility] Last Admin: 05/11/18 21:18 Dose: 5 mg - Labs Labs: 05/12/18 08:02 05/12/18 08:02 - Additional Findings Additional findings: - Constitutional Appears: No Acute Distress, cachectic - Head Exam Head Exam: ATRAUMATIC, NORMAL INSPECTION - Eye Exam Eye Exam: Normal appearance - ENT Exam ENT Exam: Mucous Membranes Dry - Respiratory Exam Respiratory Exam: Rales, Decreased breath sounds, NORMAL BREATHING PATTERN. absent: Respiratory Distress, Rhonchi, Wheezes - Cardiovascular Exam Cardiovascular Exam: REGULAR RHYTHM, +S1, +S2 - GI/Abdominal Exam GI & Abdominal Exam: Soft, Normal Bowel Sounds. absent: Distended, Firm, Tenderness - Extremities Exam Extremities Exam: Normal Inspection. absent: Pedal Edema, Tenderness - Neurological Exam Neurological Exam: Oriented x3. - Psychiatric Exam Psychiatric exam: Normal mood - Skin Skin Exam: Dry, Intact, Warm Assessment and Plan (1) COPD (chronic obstructive pulmonary disease) Status: Acute (2) Alcohol use disorder Status: Acute (3) Depression Status: Acute (4) History of gastric ulcer Status: Acute - Assessment and Plan (Free Text) Plan: (1) COPD (chronic obstructive pulmonary disease) Assessment & Plan: CXR: Lungs are hyperinflated with flattened diaphragms consistent with underlying emphysema seen better advantage on prior CTA chest. There is a vague nodular opacity seen in the right lateral lung base that may represent nodular of postinflammatory foci which were seen to better advantage on prior CTA chest. Minor linear atelectasis left medial lung base. Mild chronic pleural thickening both CP angle regions right greater than left. No acute consolidation. Chest CT: diffuse emphysema; no nodules, masses, or consolidation Medications: * Advair 500/50 (switched from pulmicort) * Spiriva 1puff daily * Duonebs BID kathy * Albuterol Q6h kathy * Prednisone 20mg PO daily (decreased to daily from BID on 05/09/18) (2) Intermittent dysphagia Assessment & Plan: Patient complaining of feeling "something stuck in his throat" Soft tissue Neck CT: few punctate intraparotid calcifications are seen in superficial portions of both parotid glands; incidental b/l upper lobe emphysematous changes place (3) Alcohol use disorder Assessment & Plan: Management per psychiatry (4) Depression Assessment & Plan: Hx of depression and suicidal ideation Management per psychiatry (5) History of gastric ulcer Assessment & Plan: Continue protonix 40mg PO daily
[2018-05-12] MEDS ORDERED: Albuterol-Ipratrop 3 mg / 0.5 (3 ml) UD INH SCH (18:00)
[2018-05-12] MEDS: Albuterol HFA 90 mcg/actuation (8 g) INH SCH (20:05)
[2018-05-12] MEDS: Albuterol-Ipratrop 3 mg / 0.5 (3 ml) UD INH SCH (20:18)
[2018-05-13] MEDS: Albuterol HFA 90 mcg/actuation (8 g) INH SCH ×4 (01:07→19:33)
[2018-05-13] MEDS: Fluticasone-Salmeterol 500-50mcg Diskus INH SCH ×2 (07:56→19:32)
[2018-05-13] MEDS: Tiotropium 18 mcg Cap For Inhalation INH SCH (07:56)
[2018-05-13 08:11] LABS: BASO # 0.1 K/uL (0.0-0.2); BASO % 0.6 % (0.0-2.0); EOS # 0.1 K/uL (0.0-0.7); EOS % 1.1 % (0.0-4.0); HEMOGLOBIN 11.1 g/dL (12.0-18.0); LYMPH # 2.2 K/uL (1.0-4.3); LYMPH % 23.7 % (20.0-40.0); MEAN CELL VOLUME 99.6 fL (80.0-94.0); MEAN CORPUSCULAR HEMOGLOBIN 32.7 pg (27.0-31.0); MEAN CORPUSCULAR HGB CONC 32.8 g/dL (33.0-37.0); MONO # 0.9 K/uL (0.0-0.8); MONO % 9.5 % (0.0-10.0); NEUT # 5.9 K/uL (1.8-7.0); NEUT % 65.1 % (50.0-75.0); NRBC % 0.1 % (0.0-2.0); RBC 3.4 Mil/uL (4.40-5.90); RED CELL DISTRIBUTION WIDTH 17.4 % (11.5-14.5); WHITE BLOOD COUNT 9.1 K/uL (4.8-10.8)
[2018-05-13 08:23] LABS: ALB/GLOB RATIO 1.3 (1.0-2.1); ALBUMIN 3.4 g/dL (3.5-5.0); ALT/SGPT 53 U/L (21-72); AST/SGOT 40 U/L (17-59); BLOOD UREA NITROGEN 16 mg/dL (9-20); CALCIUM 8.3 mg/dl (8.6-10.4); GFR AFRICAN-AMERICAN > 60; GFR NON-AFRICAN AMERICAN > 60
[2018-05-13] MEDS: Multiple Vitamins Tab PO SCH (09:46)
[2018-05-13] MEDS: Pantoprazole 40 mg EC Tab PO SCH (09:46)
[2018-05-13] MEDS: Lidocaine 5% Patch TD SCH (09:51)
--- NOTE | 2018-05-13 10:07 | CP.PCM.PN ---
Subjective - Date & Time of Evaluation Date of Evaluation: 05/13/18 Time of Evaluation: 10:07 - Subjective Subjective: Medicine progress note for Dr. Pastor Patient was seen and examined at bedside in no acute distress. Patient states he feels better. Patient says his breathing improves with the breathing treatments. He denies chest pain, abdominal pain, nausea, vomiting, fevers, dysuria, constipation, diarrhea, blood in stool. Objective - Vital Signs/Intake and Output Vital Signs (last 24 hours): Temp Pulse Resp BP Pulse Ox 98 F 82 19 120/78 100 05/13/18 06:34 05/13/18 06:34 05/13/18 06:34 05/13/18 06:34 05/06/18 00:30 - Medications Medications: Current Medications Acetaminophen (Tylenol 325mg Tab) 650 mg PO Q6 PRN PRN Reason: Pain, moderate (4-7) Last Admin: 05/11/18 22:35 Dose: 650 mg Al Hydrox/Mg Hydrox/Simethicone (Maalox 30 Ml) 30 ml PO Q6H PRN PRN Reason: Indigestion / Heartburn Last Admin: 05/12/18 18:45 Dose: 30 ml Albuterol (Ventolin Hfa 90 Mcg/Actuation (8 G)) 1 puff INH RQ6 [facility] Last Admin: 05/13/18 08:54 Dose: 1 puff Albuterol/Ipratropium (Duoneb 3 Mg/0.5 Mg (3 Ml) Ud) 3 ml INH RBID KATHY Last Admin: 05/12/18 20:18 Dose: 3 ml Clonidine HCl (Catapres) 0.1 mg PO Q6 PRN PRN Reason: Symptoms of alcohol withdrawl Last Admin: 05/09/18 01:40 Dose: 0.1 mg Cyanocobalamin (Vitamin B12 1000 Mcg Tab) 1,000 mcg PO DAILY [facility] Last Admin: 05/13/18 09:46 Dose: 1,000 mcg Folic Acid (Folic Acid) 1 mg PO DAILY [facility] Last Admin: 05/13/18 09:46 Dose: 1 mg Lidocaine (Lidoderm) 1 ea TD DAILY [facility] Last Admin: 05/13/18 09:51 Dose: 1 ea Loperamide HCl (Imodium) 2 mg PO Q6H PRN PRN Reason: Diarrhea Last Admin: 05/11/18 17:59 Dose: 2 mg Lorazepam (Ativan) 1 mg PO Q4H PRN PRN Reason: Agitation Last Admin: 05/10/18 09:52 Dose: 1 mg Mirtazapine (Remeron) 30 mg PO [facility] Last Admin: 05/12/18 21:28 Dose: 30 mg Multivitamins (Hexavitamin) 1 tab PO DAILY [facility] Last Admin: 05/13/18 09:46 Dose: 1 tab Ondansetron HCl (Zofran Tab) 4 mg PO Q6H PRN PRN Reason: Nausea/Vomiting Last Admin: 05/12/18 18:57 Dose: 4 mg Ondansetron HCl (Zofran Inj) 4 mg IM Q6H PRN PRN Reason: Nausea, vomiting Last Admin: 05/09/18 02:22 Dose: 4 mg Pantoprazole Sodium (Protonix Ec Tab) 40 mg PO DAILY [facility] Last Admin: 05/13/18 09:46 Dose: 40 mg Prednisone (Prednisone Tab) 20 mg PO DAILY [facility] Last Admin: 05/13/18 09:45 Dose: 20 mg Fluticasone/Salmeterol (Advair Diskus 500/50) 1 puff INH RQ12 [facility] Last Admin: 05/13/18 07:56 Dose: 1 puff Sertraline HCl (Zoloft) 200 mg PO DAILY [facility] Last Admin: 05/13/18 09:52 Dose: 200 mg Thiamine HCl (Vitamin B1 Tab) 100 mg PO DAILY [facility] Last Admin: 05/13/18 09:46 Dose: 100 mg Tiotropium [place] (Spiriva) 18 mcg INH RQ24 [facility] Last Admin: 05/13/18 07:56 Dose: 18 mcg Zolpidem Tartrate (Ambien) 5 mg PO [facility] Last Admin: 05/12/18 21:28 Dose: 5 mg - Labs Labs: 05/13/18 08:04 05/13/18 08:04 - Additional Findings Additional findings: - Constitutional Appears: No Acute Distress, cachectic - Head Exam Head Exam: ATRAUMATIC, NORMAL INSPECTION - Eye Exam Eye Exam: Normal appearance - ENT Exam ENT Exam: Mucous Membranes Dry - Respiratory Exam Respiratory Exam: Rales, Scattered Wheezes, Decreased breath sounds, NORMAL BREATHING PATTERN. absent: Respiratory Distress, Rhonchi - Cardiovascular Exam Cardiovascular Exam: REGULAR RHYTHM, +S1, +S2 - GI/Abdominal Exam GI & Abdominal Exam: Soft, Normal Bowel Sounds. absent: Distended, Firm, Tenderness - Extremities Exam Extremities Exam: Normal Inspection. absent: Pedal Edema, Tenderness - Neurological Exam Neurological Exam: Oriented x3. - Psychiatric Exam Psychiatric exam: Normal mood - Skin Skin Exam: Dry, Intact, Warm Assessment and Plan (1) COPD (chronic obstructive pulmonary disease) Status: Acute (2) Alcohol use disorder Status: Acute (3) Depression Status: Acute (4) History of gastric ulcer Status: Acute - Assessment and Plan (Free Text) Plan: (1) COPD (chronic obstructive pulmonary disease) Assessment & Plan: CXR: Lungs are hyperinflated with flattened diaphragms consistent with underlying emphysema seen better advantage on prior CTA chest. There is a vague nodular opacity seen in the right lateral lung base that may represent nodular of postinflammatory foci which were seen to better advantage on prior CTA chest. Minor linear atelectasis left medial lung base. Mild chronic pleural thickening both CP angle regions right greater than left. No acute consolidation. Chest CT: diffuse emphysema; no nodules, masses, or consolidation Medications: * Advair 500/50 (switched from pulmicort) * Spiriva 1puff daily * Duonebs BID kathy * Albuterol Q6h kathy * Prednisone 10mg PO daily (Decreased from BID on 05/13; decreased to daily from BID on 05/09/18) (2) Intermittent dysphagia Assessment & Plan: Patient complaining of feeling "something stuck in his throat" Soft tissue Neck CT: few punctate intraparotid calcifications are seen in superficial portions of both parotid glands; incidental b/l upper lobe emphysematous changes place (3) Alcohol use disorder Assessment & Plan: Management per psychiatry (4) Depression Assessment & Plan: Hx of depression and suicidal ideation Management per psychiatry (5) History of gastric ulcer Assessment & Plan: Continue protonix 40mg PO daily Dispo: Patient likely to be discharged from psychiatry on . Will send patient with prescriptions for prednisone 10mg PO daily for 3 days, protonix 40mg PO daily, and a nicoderm patch. Patient has newly filld prescription for incruse ellipta, albulterol, and singulaire at home.
[2018-05-13] MEDS: Albuterol-Ipratrop 3 mg / 0.5 (3 ml) UD INH SCH ×2 (11:25→20:42)
--- NOTE | 2018-05-13 17:30 | PCM.PYCHPN ---
Psychiatric Progress Note - Psychiatric Progress Note Patient seen today, length of contact: 16 min Patient Chief Complaint: I m still withdrawing.' Problems Identified/Issues Discussed: Patient seen and evaluated, chart reviewed and discussed with the nurse. As per the staff pt fell down yesterday. He denies any injuries. Patient still reports depressed mood and at times feelings of hopelessness and helplessness. As per the staff patient remained isolated and withdrawn. Patient reports withdrawal symptoms including cramps, shakes, anxiety, and headaches. He is tolerating the withdrawal medications and denies any side effects. Symptoms are improving and he needs more time for stabilization Supportive therapy and psychoeducation were given. Medication Change: Yes Medical Record Reviewed: Yes Mental Status Examination - Cognitive Function Orientation: Person, Place, Situation, Time Memory: Intact Attention: WNL Concentration: Poor Association: WNL Fund of Knowledge: Poor - Mood Mood: Depressed, Anxious - Affect Affect: Constricted - Speech Speech: Soft - Formal Thought Process Formal Thought Process: No Impairment - Suicidal Ideation Suicidal Ideation: No - Homicidal Ideation Homicidal Ideation: No Goal/Treatment Plan - Goal/Treatment Plan Need for Continued Stay: Severe depression anxiety, Discharge may exacerbated symptoms, Severe functional impairment Progress Toward Problem(s) and Goals/Treatment Plan: Major depressive disorder recurrent severe without psychotic features CBT Psychoeducation Supportive therapy, group therapy, individual therapy Trazodone 50 mg by mouth daily at bedtime Gabapentin 300 mg po TID Remeron 15 mg PO QHS Increase Zoloft 200 mg PO Daily Alcohol use disorder severe CBT Psychoeducation Supportive therapy, individual therapy Use GA for abstinence Alcohol withdrawal uncomplicated CBT Psychoeducation Supportive therapy, individual therapy Ativan when necessary Ativan taper Folic acid/thiamine/multivitamin Asthma Continue inhaler Estimated Date of D/C: 05/13/18
[2018-05-14] MEDS: Albuterol HFA 90 mcg/actuation (8 g) INH SCH ×4 (01:19→19:37)
[2018-05-14 07:05] LABS: BASO % 0.5 % (0.0-2.0); EOS # 0.1 K/uL (0.0-0.7); HEMOGLOBIN 10.6 g/dL (12.0-18.0); LYMPH # 1.9 K/uL (1.0-4.3); LYMPH % 27.7 % (20.0-40.0); MEAN CELL VOLUME 98.8 fL (80.0-94.0); MEAN CORPUSCULAR HEMOGLOBIN 33.8 pg (27.0-31.0); MEAN CORPUSCULAR HGB CONC 34.2 g/dL (33.0-37.0); MEAN PLATELET VOLUME 8.2 fL (7.2-11.7); MONO # 0.7 K/uL (0.0-0.8); MONO % 10.9 % (0.0-10.0); NEUT # 4.1 K/uL (1.8-7.0); NEUT % 59.9 % (50.0-75.0); RBC 3.14 Mil/uL (4.40-5.90); RED CELL DISTRIBUTION WIDTH 17.2 % (11.5-14.5); WHITE BLOOD COUNT 6.9 K/uL (4.8-10.8)
--- NOTE | 2018-05-14 07:12 | CP.PCM.PN ---
Subjective - Date & Time of Evaluation Date of Evaluation: 05/14/18 Time of Evaluation: 07:12 - Subjective Subjective: Medicine progress note for Dr. Henry Patient was seen and examined at bedside in no acute distress. Patient reports feeling well. Patient has no complaints. Patient denies chest pain, abdominal pain, nausea, vomiting, fevers, dysuria, constipation, diarrhea, blood in stool. Objective - Vital Signs/Intake and Output Vital Signs (last 24 hours): Temp Pulse Resp BP Pulse Ox 98 F 96 H 19 120/73 100 05/13/18 06:34 05/13/18 15:38 05/13/18 06:34 05/13/18 15:38 05/06/18 00:30 - Medications Medications: Current Medications Acetaminophen (Tylenol 325mg Tab) 650 mg PO Q6 PRN PRN Reason: Pain, moderate (4-7) Last Admin: 05/11/18 22:35 Dose: 650 mg Al Hydrox/Mg Hydrox/Simethicone (Maalox 30 Ml) 30 ml PO Q6H PRN PRN Reason: Indigestion / Heartburn Last Admin: 05/12/18 18:45 Dose: 30 ml Albuterol (Ventolin Hfa 90 Mcg/Actuation (8 G)) 1 puff INH RQ6 [facility]ATHY Last Admin: 05/14/18 01:19 Dose: Not Given Albuterol/Ipratropium (Duoneb 3 Mg/0.5 Mg (3 Ml) Ud) 3 ml INH RBID KATHY Last Admin: 05/13/18 20:42 Dose: Not Given Clonidine HCl (Catapres) 0.1 mg PO Q6 PRN PRN Reason: Symptoms of alcohol withdrawl Last Admin: 05/09/18 01:40 Dose: 0.1 mg Cyanocobalamin (Vitamin B12 1000 Mcg Tab) 1,000 mcg PO DAILY [facility]ATHY Last Admin: 05/13/18 09:46 Dose: 1,000 mcg Folic Acid (Folic Acid) 1 mg PO DAILY [facility]ATH[facility] Last Admin: 05/13/18 09:46 Dose: 1 mg Lidocaine (Lidoderm) 1 ea TD DAILY [facility]ATHY Last Admin: 05/13/18 09:51 Dose: 1 ea Loperamide HCl (Imodium) 2 mg PO Q6H PRN PRN Reason: Diarrhea Last Admin: 05/11/18 17:59 Dose: 2 mg Lorazepam (Ativan) 1 mg PO Q4H PRN PRN Reason: Agitation Last Admin: 05/10/18 09:52 Dose: 1 mg Mirtazapine (Remeron) 30 mg PO [facility] Last Admin: 05/13/18 21:29 Dose: 30 mg Multivitamins (Hexavitamin) 1 tab PO DAILY [facility] Last Admin: 05/13/18 09:46 Dose: 1 tab Nicotine (Nicoderm Cq) 1 patch TD DAILY [facility] Ondansetron HCl (Zofran Tab) 4 mg PO Q6H PRN PRN Reason: Nausea/Vomiting Last Admin: 05/12/18 18:57 Dose: 4 mg Ondansetron HCl (Zofran Inj) 4 mg IM Q6H PRN PRN Reason: Nausea, vomiting Last Admin: 05/09/18 02:22 Dose: 4 mg Pantoprazole Sodium (Protonix Ec Tab) 40 mg PO DAILY [facility] Last Admin: 05/13/18 09:46 Dose: 40 mg Prednisone (Prednisone Tab) 10 mg PO DAILY [facility] Fluticasone/Salmeterol (Advair Diskus 500/50) 1 puff INH RQ12 [facility] Last Admin: 05/13/18 19:32 Dose: 1 puff Sertraline HCl (Zoloft) 200 mg PO DAILY [facility] Last Admin: 05/13/18 09:52 Dose: 200 mg Thiamine HCl (Vitamin B1 Tab) 100 mg PO DAILY [facility] Last Admin: 05/13/18 09:46 Dose: 100 mg Tiotropium [place] (Spiriva) 18 mcg INH RQ24 [facility] Last Admin: 05/13/18 07:56 Dose: 18 mcg Zolpidem Tartrate (Ambien) 5 mg PO [facility] Last Admin: 05/13/18 21:29 Dose: 5 mg - Labs Labs: 05/14/18 07:00 05/13/18 08:04 - Additional Findings Additional findings: - Constitutional Appears: No Acute Distress, cachectic - Head Exam Head Exam: ATRAUMATIC, NORMAL INSPECTION - Eye Exam Eye Exam: Normal appearance - ENT Exam ENT Exam: Mucous Membranes Dry - Respiratory Exam Respiratory Exam: Rales, Scattered Wheezes, Decreased breath sounds, NORMAL BREATHING PATTERN. absent: Respiratory Distress, Rhonchi - Cardiovascular Exam Cardiovascular Exam: REGULAR RHYTHM, +S1, +S2 - GI/Abdominal Exam GI & Abdominal Exam: Soft, Normal Bowel Sounds. absent: Distended, Firm, Tenderness - Extremities Exam Extremities Exam: Normal Inspection. absent: Pedal Edema, Tenderness - Neurological Exam Neurological Exam: Oriented x3. - Psychiatric Exam Psychiatric exam: Normal mood - Skin Skin Exam: Dry, Intact, Warm Assessment and Plan (1) COPD (chronic obstructive pulmonary disease) Status: Acute (2) Alcohol use disorder Status: Acute (3) Depression Status: Acute (4) History of gastric ulcer Status: Acute - Assessment and Plan (Free Text) Plan: (1) COPD (chronic obstructive pulmonary disease) Assessment & Plan: CXR: Lungs are hyperinflated with flattened diaphragms consistent with underlying emphysema seen better advantage on prior CTA chest. There is a vague nodular opacity seen in the right lateral lung base that may represent nodular of postinflammatory foci which were seen to better advantage on prior CTA chest. Minor linear atelectasis left medial lung base. Mild chronic pleural thickening both CP angle regions right greater than left. No acute consolidation. Chest CT: diffuse emphysema; no nodules, masses, or consolidation Medications: * Advair 500/50 (switched from pulmicort) * Spiriva 1puff daily * Duonebs BID kathy * Albuterol Q6h kathy * Prednisone 10mg PO daily (Decreased from BID on 05/13; decreased to daily from BID on 05/09/18) (2) Intermittent dysphagia Assessment & Plan: Patient complaining of feeling "something stuck in his throat" Soft tissue Neck CT: few punctate intraparotid calcifications are seen in superficial portions of both parotid glands; incidental b/l upper lobe emphysematous changes place (3) Alcohol use disorder Assessment & Plan: Management per psychiatry (4) Depression Assessment & Plan: Hx of depression and suicidal ideation Management per psychiatry (5) History of gastric ulcer Assessment & Plan: Continue protonix 40mg PO daily Dispo: Patient likely to be discharged from psychiatry on . Will send patient with prescriptions for prednisone 10mg PO daily for 3 days, protonix 40mg PO daily, and a nicoderm patch. [Prescriptions sent electronically to preferred pharmacy.] Patient has newly filled prescription for incruse ellipta, albulterol, and singulaire at home. Medicine team signing off. Please reconsult as needed.
[2018-05-14 07:42] LABS: ALB/GLOB RATIO 1.3 (1.0-2.1); ALBUMIN 3.4 g/dL (3.5-5.0); ALT/SGPT 46 U/L (21-72); AST/SGOT 46 U/L (17-59); BLOOD UREA NITROGEN 17 mg/dL (9-20); CALCIUM 8.4 mg/dl (8.6-10.4); GFR AFRICAN-AMERICAN > 60; GFR NON-AFRICAN AMERICAN > 60
[2018-05-14] MEDS: Fluticasone-Salmeterol 500-50mcg Diskus INH SCH ×2 (07:48→19:39)
[2018-05-14] MEDS: Tiotropium 18 mcg Cap For Inhalation INH SCH (07:49)
[2018-05-14] MEDS: Albuterol-Ipratrop 3 mg / 0.5 (3 ml) UD INH SCH ×2 (09:40→20:47)
[2018-05-14] MEDS: Pantoprazole 40 mg EC Tab PO SCH (09:59)
[2018-05-14] MEDS: Multiple Vitamins Tab PO SCH (10:00)
[2018-05-14] MEDS: Lidocaine 5% Patch TD SCH (10:00)
[2018-05-15] MEDS: Albuterol HFA 90 mcg/actuation (8 g) INH SCH (02:10)
[2018-05-15 06:24] VITALS: BP 102/72; PULSE 91; RESP 18; TEMP 97.6
[2018-05-15] MEDS: Fluticasone-Salmeterol 500-50mcg Diskus INH SCH (07:44)
[2018-05-15] MEDS: Tiotropium 18 mcg Cap For Inhalation INH SCH (07:45)
[2018-05-15 08:19] LABS: BASO % 0.6 % (0.0-2.0); EOS # 0.1 K/uL (0.0-0.7); EOS % 1.4 % (0.0-4.0); HEMOGLOBIN 10.5 g/dL (12.0-18.0); LYMPH % 30.3 % (20.0-40.0); MEAN CELL VOLUME 99.4 fL (80.0-94.0); MEAN CORPUSCULAR HEMOGLOBIN 33.6 pg (27.0-31.0); MEAN CORPUSCULAR HGB CONC 33.8 g/dL (33.0-37.0); MEAN PLATELET VOLUME 7.8 fL (7.2-11.7); MONO # 0.8 K/uL (0.0-0.8); MONO % 11.7 % (0.0-10.0); NEUT # 3.8 K/uL (1.8-7.0); RBC 3.13 Mil/uL (4.40-5.90); RED CELL DISTRIBUTION WIDTH 17.2 % (11.5-14.5); WHITE BLOOD COUNT 6.7 K/uL (4.8-10.8)
[2018-05-15 09:08] LABS: ALB/GLOB RATIO 1.4 (1.0-2.1); ALBUMIN 3.4 g/dL (3.5-5.0); ALT/SGPT 49 U/L (21-72); AST/SGOT 42 U/L (17-59); BLOOD UREA NITROGEN 17 mg/dL (9-20); CALCIUM 8.4 mg/dl (8.6-10.4); GFR AFRICAN-AMERICAN > 60; GFR NON-AFRICAN AMERICAN > 60
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
== END 2018-05-15 10:00 | disposition home or self-care (01) | DRG 430 ==
LOC: C.ER 16:12 → C.5E 19:34
PROVIDERS: ADMIT Psychiatry & Neurology Psychiatry; ATTEND Psychiatry & Neurology Psychiatry
PROC: GZHZZZZ Group Psychotherapy (ICD-10-PCS; principal; 2018-05-05)
PROC: HZ2ZZZZ Detoxification Services for Substance Abuse Treatment (ICD-10-PCS; 2018-05-05)
PROC: HZ52ZZZ Individual Psychotherapy for Substance Abuse Treatment, Cognitive-Behavioral (ICD-10-PCS; 2018-05-05)
PROC: HZ59ZZZ Individual Psychotherapy for Substance Abuse Treatment, Supportive (ICD-10-PCS; 2018-05-05)
PROC: HZ56ZZZ Individual Psychotherapy for Substance Abuse Treatment, Psychoeducation (ICD-10-PCS; 2018-05-05)
PROC: HZ42ZZZ Group Counseling for Substance Abuse Treatment, Cognitive-Behavioral (ICD-10-PCS; 2018-05-05)
PROC: HZ46ZZZ Group Counseling for Substance Abuse Treatment, Psychoeducation (ICD-10-PCS; 2018-05-05)
PROC: GZ58ZZZ Individual Psychotherapy, Cognitive-Behavioral (ICD-10-PCS; 2018-05-05)
PROC: GZ56ZZZ Individual Psychotherapy, Supportive (ICD-10-PCS; 2018-05-05)
DX: F33.2 Major depressive disorder, recurrent severe without psychotic features (principal); F10.230 Alcohol dependence with withdrawal, uncomplicated; J44.1 Chronic obstructive pulmonary disease with (acute) exacerbation; E46 Unspecified protein-calorie malnutrition; R45.851 Suicidal ideations; F20.9 Schizophrenia, unspecified; Y90.6 Blood alcohol level of 120-199 mg/100 ml; F41.9 Anxiety disorder, unspecified; I10 Essential (primary) hypertension; K25.9 Gastric ulcer, unspecified as acute or chronic, without hemorrhage or perforation; K21.9 Gastro-esophageal reflux disease without esophagitis; R29.6 Repeated falls; Z59.0 Homelessness; Z72.0 Tobacco use

== ENCOUNTER 2018-05-21 15:06 | Inpatient (IN) | payer MEDICAID ==
[2018-05-21 15:10] VITALS: BMI 18.0
[2018-05-21] MEDS ORDERED: Albuterol 0.083% Inhal Sol (2.5 mg/3 mL) UD IH STA (15:34)
--- NOTE | 2018-05-21 16:08 | C.PDOC ---
History Of Present Illness 58-year-old homeless male, PMHx includes COPD, presents to the emergency department with complaints of four day history of productive cough with yellow- green sputum, and shortness of breath, worse today. Pt also reports he is depressed and wants to . Patient has not been eating or drinking well. He has chronic pain and has not had access to any pain medication. Ambulance was called, he was given duonebs and 125 Solumedrol en route. Denies any nausea/ vomiting, fever, chills, chest pain or any other associated symptoms. No other complaints at this time. Time Seen by Provider: 05/21/18 15:24 Chief Complaint (Nursing): Respiratory Distress History Per: Patient History/Exam Limitations: no limitations Onset/Duration Of Symptoms: Days (4) Current Symptoms Are (Timing): Still Present Past Medical History Reviewed: Historical Data, Nursing Documentation, Vital Signs - Medical History PMH: Anxiety, Asthma, Bronchitis, COPD, Depression, Gastrointestinal Ulcer, HTN , Pneumonia Denies: Diabetes, Hepatitis, HIV, Chronic Kidney Disease, Seizures, Sexually Transmitted Disease Surgical History: Appendectomy, Tonsillectomy - [facility] Procedures CONTR ABD ARTERIOGRM NEC (05/20/07) DETOXIFICATION SERVICES FOR SUBSTANCE ABUSE TREATMENT (05/05/18) ESOPHAGOGASTRODUODENOSCOPY [EGD] W/CLOSED BIOPSY (05/20/07) EXCISION OF LOWER ESOPHAGUS, ENDO, DIAGN (05/21/17) EXTIRPATION OF MATTER FROM LOWER ESOPHAGUS, ENDO (05/21/17) GROUP DIVISION TOLL WIRE CHIEF FOR SUBSTANCE ABUSE TREATMENT, PSYCHOEDUCATION (05/05/18) GROUP DIVISION TOLL WIRE CHIEF FOR SUBSTANCE ABUSE, COGNITIVE BEHAVIORAL (05/05/18) GROUP PSYCHOTHERAPY (05/05/18) INDIV DIVISION TOLL WIRE CHIEF FOR SUBSTANCE ABUSE TREATMENT, PSYCHOEDUCATION (01/14/17) INDIV DIVISION TOLL WIRE CHIEF FOR SUBSTANCE ABUSE, COGNITIVE BEHAVIORAL (01/14/17) INDIV PSYCHOTHERAPY FOR SUBSTANCE ABUSE TREATMENT, SUPPORT (05/05/18) INDIV PSYCHOTHERAPY FOR SUBSTANCE ABUSE, COGNITIV BEHAVIORAL (05/05/18) INDIV PSYCHOTHERAPY FOR SUBSTANCE ABUSE, PSYCHOEDUCATION (05/05/18) INDIVIDUAL PSYCHOTHERAPY, COGNITIVE-BEHAVIORAL (05/05/18) INDIVIDUAL PSYCHOTHERAPY, SUPPORTIVE (05/05/18) INJECT/INFUSE NEC (03/20/12) MEDICATION MANAGEMENT (03/12/17) MEDS MGMT FOR SUBSTANCE ABUSE TREATMENT, OTH REPL MED (03/12/17) Family History: States: No Known Family Hx - Social History Hx Tobacco Use: Yes Hx Alcohol Use: Yes Hx Substance Use: Yes - Immunization History Hx Tetanus Toxoid Vaccination: Yes Hx Influenza Vaccination: Yes (01/2016) Hx Pneumococcal Vaccination: Yes (2015) Review Of Systems Except As Marked, All Systems Reviewed And Found Negative. Constitutional: Negative for: Fever, Chills ( ) Cardiovascular: Negative for: Chest Pain Respiratory: Positive for: Cough, Shortness of Breath, Sputum, Wheezing. Negative for: Hemoptysis Gastrointestinal: Negative for: Nausea, Vomiting, Abdominal Pain Musculoskeletal: Negative for: Back Pain Neurological: Negative for: Weakness, Numbness, Headache, Dizziness Psych: Positive for: Suicidal ideation Physical Exam - Physical Exam Appears: Non-toxic, No Acute Distress, Other (speaking in full sentences) Skin: Normal Color, Warm, Dry Head: Atraumatic, Normacephalic Eye(s): bilateral: Normal Inspection Nose: Normal Oral Mucosa: Moist Neck: Normal ROM Cardiovascular: Rhythm Regular, No Murmur Respiratory: No Accessory Muscle Use, Wheezing (B/L expiratory) Gastrointestinal/Abdominal: Soft, No Tenderness Back: Normal Inspection Extremity: Normal ROM Neurological/Psych: Oriented x3, Normal Speech ED Course And Treatment - Laboratory Results Result Diagrams: 05/21/18 16:07 05/21/18 16:07 Lab Interpretation: Abnormal (Elevated WBC with left shift, PO2 84, PCO2 31, pH 7.46, BNP 1280) ECG: Interpreted By Me ECG Rhythm: Sinus Tachycardia ECG Interpretation: No Acute Changes - Radiology CXR: Viewed By Me, Read By Radiologist CXR Interpretation: Yes: No Acute Disease, COPD Reevaluation Time: 16:43 Reassessment Condition: Improved (after Albuterol. Wheezing only on expiration.) - Physician Consult Information Physician Contacted: Dino Gonzalez Outcome Of Conversation: He knows the patient well and accepts him on his service for treatment of COPD exacerbation. He will arrange for a psych consult during admission. Patient evaluated in ED by crisis and kept on 1:1 observation. Medical Decision Making Medical Decision Making: Pt is also requesting a psych admission. Disposition - Disposition Disposition: HOSPITALIZED Disposition Time: 16:47 Condition: IMPROVED - POA Present On Arrival: None - Clinical Impression Clinical Impression: COPD exacerbation, Depression with suicidal ideation, Chronic back pain - Scribe Statement The provider has reviewed the documentation as recorded by the Scribe (Celso Geronimo) All medical record entries made by the Scribe were at my direction and personally dictated by me. I have reviewed the chart and agree that the record accurately reflects my personal performance of the history, physical exam, medical decision making, and the department course for this patient. I have also personally directed, reviewed, and agree with the discharge instructions and disposition.
[2018-05-21 16:10] LABS: BASO % 0.3 % (0.0-2.0); EOS % 0.2 % (0.0-4.0); HEMOGLOBIN 9.8 g/dL (12.0-18.0); LYMPH # 0.8 K/uL (1.0-4.3); LYMPH % 5.2 % (20.0-40.0); MEAN CELL VOLUME 98.6 fL (80.0-94.0); MEAN CORPUSCULAR HEMOGLOBIN 32.7 pg (27.0-31.0); MEAN CORPUSCULAR HGB CONC 33.1 g/dL (33.0-37.0); MEAN PLATELET VOLUME 8.1 fL (7.2-11.7); MONO # 0.5 K/uL (0.0-0.8); MONO % 3.2 % (0.0-10.0); NEUT # 13.3 K/uL (1.8-7.0); NEUT % 91.1 % (50.0-75.0); PLATELET COUNT 291 K/uL (130-400); RED CELL DISTRIBUTION WIDTH 16.9 % (11.5-14.5)
[2018-05-21 16:11] LABS: WHITE BLOOD COUNT 14.7 K/uL (4.8-10.8)
[2018-05-21] MEDS ORDERED: Albuterol 0.083% Inhal Sol (2.5 mg/3 mL) UD ONE (16:12)
--- NOTE | 2018-05-21 16:19 | RAD ---
PROCEDURE: CHEST RADIOGRAPH, 1 VIEW HISTORY: Shortness of breath COMPARISON: 12/24/2017. FINDINGS: LUNGS: The lungs are hyperinflated and there is peribronchial thickening with chronic changes in both lungs. No focal consolidation. PLEURA: No pneumothorax or pleural fluid seen. CARDIOVASCULAR: Normal. OSSEOUS STRUCTURES: No significant abnormalities. VISUALIZED UPPER ABDOMEN: Normal. OTHER FINDINGS: None. IMPRESSION: No active pulmonary disease. COPD.
[2018-05-21 16:26] LABS: ALB/GLOB RATIO 1.3 (1.0-2.1); ALBUMIN 3.4 g/dL (3.5-5.0); ALT/SGPT 37 U/L (21-72); AST/SGOT 20 U/L (17-59); BLOOD UREA NITROGEN 7 mg/dL (9-20); GFR AFRICAN-AMERICAN > 60; GFR NON-AFRICAN AMERICAN > 60
[2018-05-21 16:31] LABS: ARTERIAL BLOOD GAS HCO3 24.2 mmol/L (21-28); ARTERIAL BLOOD GAS O2 SAT 98.8 % (95-98); ARTERIAL BLOOD GAS PCO2 31 mm/Hg (35-45); ARTERIAL BLOOD GAS PH 7.46 (7.35-7.45); ARTERIAL BLOOD GAS PO2 84 mm/Hg (80-100)
[2018-05-21 16:32] LABS: B-TYPE NATRIURETIC PEPTIDE 1280 pg/mL (0-900)
[2018-05-21 16:34] LABS: BANDS 2 % (0-2); LYMPHOCYTE 7 % (20-40); MONOCYTE 3 % (0-10); NEUTROPHIL 88 % (50-75); PLATELET ESTIMATE NORMAL (NORMAL); TOTAL CELLS COUNTED 100
[2018-05-21 16:35] LABS: ANISOCYTOSIS SLIGHT; HYPOCHROMIC MODERATE; POIKILOCYTOSIS SLIGHT
[2018-05-21 16:36] LABS: LARGE PLATELETS PRESENT; TARGET CELLS SLIGHT
[2018-05-22] MEDS: MethylPREDNISolone 40 mg Vial IVP SCH ×4 (00:38→21:49)
[2018-05-22] MEDS: Albuterol-Ipratrop 3 mg / 0.5 (3 ml) UD INH SCH ×6 (01:15→19:05)
[2018-05-22] MEDS ORDERED: Tiotropium 18 mcg Cap For Inhalation INH SCH (08:00)
--- NOTE | 2018-05-22 08:18 | CP.PCM.PN ---
Subjective - Date & Time of Evaluation Date of Evaluation: 05/22/18 Time of Evaluation: 08:00 - Subjective Subjective: PGY3 med progress note for Dr. Gonzalez: Patient was seen and examined at bedside this morning. He is on 1:1 for suicidal ideations. He was complaining of shortnesses and breath and also saying he had thoughts of hanging himself. He reports that he did not have time to get his nebulizer machine outpatient. He also reports that he has pain on the side of his riba after a fall out of his wheelchair when he was inpatient on the psych floor last week. He has no other complaints today. He is eating well, and having bowel movements. Objective - Vital Signs/Intake and Output Vital Signs (last 24 hours): Temp Pulse Resp BP Pulse Ox 97.5 F L 94 H 20 131/77 95 05/21/18 22:22 05/22/18 05:01 05/21/18 18:49 05/21/18 18:49 05/21/18 18:49 Intake and Output: 05/22/18 05/22/18 06:59 18:59 Output Total 600 Balance -600 - Medications Medications: Current Medications Acetaminophen (Tylenol 325mg Tab) 650 mg PO Q4 PRN PRN Reason: Pain, Mild (1-3) Last Admin: 05/21/18 21:35 Dose: 650 mg Albuterol/Ipratropium (Duoneb 3 Mg/0.5 Mg (3 Ml) Ud) 3 ml INH RQ4 [facility] Last Admin: 05/22/18 07:25 Dose: 3 ml Enoxaparin Sodium (Lovenox) 40 mg SC DAILY [facility] Methylprednisolone (Solu-Medrol) 40 mg IVP Q6 [facility] Last Admin: 05/22/18 06:04 Dose: 40 mg Tiotropium [place] (Spiriva) 18 mcg INH RQ24 [facility] - Labs Labs: 05/21/18 16:07 05/21/18 16:07 - Constitutional Appears: Non-toxic, No Acute Distress, Chronically Ill - Head Exam Head Exam: NORMAL INSPECTION - Eye Exam Eye Exam: EOMI - ENT Exam ENT Exam: Mucous Membranes Moist - Respiratory Exam Respiratory Exam: Wheezes, NORMAL BREATHING PATTERN. absent: Accessory Muscle Use, Respiratory Distress - Cardiovascular Exam Cardiovascular Exam: REGULAR RHYTHM, +S1, +S2 - GI/Abdominal Exam GI & Abdominal Exam: Soft, Normal Bowel Sounds. absent: Distended, Firm, Guarding, Tenderness - Extremities Exam Extremities Exam: Normal Inspection - Back Exam Back Exam: NORMAL INSPECTION. absent: CVA tenderness (L), CVA tenderness (R), paraspinal tenderness - Neurological Exam Neurological Exam: Alert, Awake, Oriented x3 - Psychiatric Exam Psychiatric exam: Normal Affect, Normal Mood Assessment and Plan - Assessment and Plan (Free Text) Assessment: COPD (chronic obstructive pulmonary disease) exacerbation Chest X ray: COPD, no active lung disease Advair 500/50 Spiriva 1puff daily Duonebs BID kathy Solu Medrol 40mg IVP Q6 hours - can switch to 40mg PO taper once transferred to psych Hypokalemia K 3.5 Replaced orally f/u am labs Hx. Fall One week ago f/u rib Xray Alcohol use disorder Thiamine, Multivitamin, Folic Acid PO daily Depression Hx of depression and suicidal ideation on 1:1 observation Psych consult placed - f.u recs, transfer to psych likely tomorrow Zoloft 100mg PO daily Klonipin 0.5 mg PO TID History of gastric ulcer Protonix 40mg PO daily Chronic Pain Tylenol prn pain Tylenol #3 1 tab PO Q6 prn severe pain Prophylactic Measures Protonix 40mg PO daily Lovenox 40mg SC daily Heart healthy diet Dispo -> likely transfer to 5E (psych floor) tomorrow All orders and management per Dr. Lisa Molina DO PGY3
[2018-05-22] MEDS: Pantoprazole 40 mg EC Tab PO SCH (09:25)
[2018-05-22] MEDS: Multiple Vitamins Tab PO SCH (09:26)
[2018-05-22] MEDS: Enoxaparin 40 mg Syringe SC SCH (09:26)
[2018-05-22 11:27] LABS: BASO % 0.2 % (0.0-2.0); HEMOGLOBIN 10.3 g/dL (12.0-18.0); LYMPH # 0.4 K/uL (1.0-4.3); LYMPH % 2.7 % (20.0-40.0); MEAN CELL VOLUME 98.8 fL (80.0-94.0); MEAN CORPUSCULAR HEMOGLOBIN 32.3 pg (27.0-31.0); MEAN CORPUSCULAR HGB CONC 32.7 g/dL (33.0-37.0); MONO # 0.1 K/uL (0.0-0.8); MONO % 1.1 % (0.0-10.0); NEUT # 12.9 K/uL (1.8-7.0); PLATELET COUNT 310 K/uL (130-400); RBC 3.17 Mil/uL (4.40-5.90); RED CELL DISTRIBUTION WIDTH 17.2 % (11.5-14.5); WHITE BLOOD COUNT 13.4 K/uL (4.8-10.8)
[2018-05-22 11:50] LABS: ALB/GLOB RATIO 1.2 (1.0-2.1); ALBUMIN 3.4 g/dL (3.5-5.0); ALT/SGPT 23 U/L (21-72); AST/SGOT 18 U/L (17-59); BLOOD UREA NITROGEN 11 mg/dL (9-20); CALCIUM 8.6 mg/dl (8.6-10.4); GFR AFRICAN-AMERICAN > 60; GFR NON-AFRICAN AMERICAN > 60
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
[2018-05-22 12:02] LABS: BANDS 5 % (0-2); LYMPHOCYTE 5 % (20-40); MONOCYTE 1 % (0-10); NEUTROPHIL 89 % (50-75); PLATELET ESTIMATE NORMAL (NORMAL); TOTAL CELLS COUNTED 100
[2018-05-22 12:03] LABS: ANISOCYTOSIS SLIGHT
[2018-05-22] MEDS ORDERED: Potassium Chloride 20 mEq ER Tab PO STA (12:23)
--- NOTE | 2018-05-22 14:26 | RAD ---
PROCEDURE: Radiographs of the chest and bilateral ribs HISTORY: s/p fall 1 week ago, pain to ribs COMPARISON: None available. TECHNIQUE: Frontal radiograph of the chest and multiple oblique radiographs of the bilateral ribs were obtained. FINDINGS: RIGHT RIBS: A nondisplaced right 7th rib fracture subacute appearing per some suggestion of callus formation here. Another fracture probably subacute appearing involving the anterolateral right eight rib LEFT RIBS: No fracture or focal lesion visualized. LUNGS: Clear. PLEURA: No pneumothorax or pleural fluid. CARDIOVASCULAR: Normal sized heart. No pulmonary vascular congestion. OTHER FINDINGS: Generalized osteopenia, thoraco lumbar spondylosis. Bilateral shoulder arthrosis IMPRESSION: Nondisplaced right rib fractures 7 and 8 mostly anterior with some healing callus formation. No pneumothorax seen. Other findings -as above.
[2018-05-22] MEDS: Acetaminophen-Codeine 300/30 mg Tab PO PRN (17:37)
[2018-05-22] MEDS: Fluticasone-Salmeterol 500-50mcg Diskus INH SCH (19:05)
[2018-05-23] MEDS ORDERED: Aluminum Hydroxide/Magnesium Hydroxide Susp (30 mL) PO ONE ×2 (00:19→00:45)
[2018-05-23] MEDS: Albuterol-Ipratrop 3 mg / 0.5 (3 ml) UD INH SCH ×6 (00:41→20:58)
[2018-05-23] MEDS: MethylPREDNISolone 40 mg Vial IVP SCH (06:25)
--- NOTE | 2018-05-23 06:37 | HP ---
HISTORY OF PRESENT ILLNESS: Mr. Rodriguez admitted to the hospital today with shortness of breath, fever, cough, pain in the chest and the back. The patient has significant history of COPD, history of depression, chronic back pain, substance abuse in the past. MEDICATIONS: Albuterol, Spiriva. PHYSICAL EXAMINATION: GENERAL: The patient is awake, alert, and oriented. Shortness of breath. VITAL SIGNS: Temperature 98, pulse 90. HEENT: Within normal limits. NECK: Supple. CHEST: Symmetrical. HEART: Regular. ABDOMEN: Soft. EXTREMITIES: No edema. IMPRESSION: Patients suffers from chronic obstructive pulmonary disease, bronchitis, depression, back pain. PLAN: At this point get bronchodilators, IV steroids, supportive care. Dino Gonzalez MD
[2018-05-23 06:41] LABS: BASO % 0.3 % (0.0-2.0); LYMPH # 0.8 K/uL (1.0-4.3); LYMPH % 4.6 % (20.0-40.0); MEAN CELL VOLUME 98.1 fL (80.0-94.0); MEAN CORPUSCULAR HEMOGLOBIN 32.5 pg (27.0-31.0); MEAN CORPUSCULAR HGB CONC 33.1 g/dL (33.0-37.0); MEAN PLATELET VOLUME 8.6 fL (7.2-11.7); MONO # 0.7 K/uL (0.0-0.8); MONO % 4.4 % (0.0-10.0); NEUT # 15.3 K/uL (1.8-7.0); NEUT % 90.7 % (50.0-75.0); PLATELET COUNT 330 K/uL (130-400); RBC 3.08 Mil/uL (4.40-5.90); RED CELL DISTRIBUTION WIDTH 17.1 % (11.5-14.5); WHITE BLOOD COUNT 16.9 K/uL (4.8-10.8)
[2018-05-23 06:57] LABS: ALB/GLOB RATIO 1.2 (1.0-2.1); ALBUMIN 3.4 g/dL (3.5-5.0); ALT/SGPT 29 U/L (21-72); AST/SGOT 21 U/L (17-59); BLOOD UREA NITROGEN 11 mg/dL (9-20); CALCIUM 8.6 mg/dl (8.6-10.4); GFR AFRICAN-AMERICAN > 60; GFR NON-AFRICAN AMERICAN > 60
[2018-05-23] MEDS: Fluticasone-Salmeterol 500-50mcg Diskus INH SCH ×2 (07:34→20:58)
[2018-05-23 08:37] LABS: ANISOCYTOSIS SLIGHT; LYMPHOCYTE 3 % (20-40); MONOCYTE 4 % (0-10); NEUTROPHIL 93 % (50-75); PLATELET ESTIMATE NORMAL (NORMAL); TOTAL CELLS COUNTED 100
[2018-05-23 08:38] LABS: HYPOCHROMIC SLIGHT; POLYCHROMIC SLIGHT
--- NOTE | 2018-05-23 10:22 | CP.PCM.PN ---
Subjective - Date & Time of Evaluation Date of Evaluation: 05/23/18 Time of Evaluation: 08:00 - Subjective Subjective: PGY3 med progress note for Dr. Gonzalez: Patient was seen and examined at bedside this morning. He is on 1:1 for suicidal ideations. He says he is mentally feeling better today but still depressed. He would like to go to the psych floor. He states that he is eating well and having bowel movements. He complains of the same right sided rib pain. Shortness of breath has improved but still minorly wheezing which he reports is normal for him. Denies fever/chills, productive cough, chest pains. No new complaints today. He states the tylenol 3 is helping with his pain. Objective - Vital Signs/Intake and Output Vital Signs (last 24 hours): Temp Pulse Resp BP Pulse Ox 98.3 F 94 H 20 132/81 97 05/23/18 07:00 05/23/18 07:00 05/23/18 07:00 05/23/18 07:00 05/23/18 07:00 Intake and Output: 05/23/18 05/23/18 06:59 18:59 Intake Total 500 Output Total 300 Balance 200 - Medications Medications: Current Medications Acetaminophen (Tylenol 325mg Tab) 650 mg PO Q4 PRN PRN Reason: Pain, Mild (1-3) Last Admin: 05/21/18 21:35 Dose: 650 mg Acetaminophen/Codeine Phosphate (Tylenol/Codeine 300 Mg/30 Mg) 1 ea PO Q6 PRN PRN Reason: Pain, severe (8-10) Last Admin: 05/22/18 17:37 Dose: 1 ea Albuterol/Ipratropium (Duoneb 3 Mg/0.5 Mg (3 Ml) Ud) 3 ml INH RQ4 [facility] Last Admin: 05/23/18 07:34 Dose: 3 ml Clonazepam (Klonopin) 0.5 mg PO TID [facility] Last Admin: 05/22/18 17:39 Dose: 0.5 mg Enoxaparin Sodium (Lovenox) 40 mg SC DAILY [facility] Last Admin: 05/22/18 09:26 Dose: 40 mg Folic Acid (Folic Acid) 1 mg PO DAILY [facility] Last Admin: 05/22/18 09:25 Dose: 1 mg Home Med (Patient's Own Inhaler) 18 puff INH RQ24 [facility] Stop: 05/30/18 08:01 Methylprednisolone (Solu-Medrol) 40 mg IVP Q8 [facility] Last Admin: 05/23/18 06:25 Dose: 40 mg Mirtazapine (Remeron) 30 mg PO HS [facility] Last Admin: 05/22/18 21:49 Dose: 30 mg Multivitamins (Hexavitamin) 1 tab PO DAILY [facility] Last Admin: 05/22/18 09:26 Dose: 1 tab Pantoprazole Sodium (Protonix Ec Tab) 40 mg PO DAILY [facility] Last Admin: 05/22/18 09:25 Dose: 40 mg Fluticasone/Salmeterol (Advair Diskus 500/50) 1 puff INH RQ12 [facility] Last Admin: 05/23/18 07:34 Dose: 1 puff Sertraline HCl (Zoloft) 100 mg PO DAILY [facility] Last Admin: 05/22/18 12:21 Dose: 100 mg Thiamine HCl (Vitamin B1 Tab) 100 mg PO DAILY [facility] Last Admin: 05/22/18 09:26 Dose: 100 mg - Labs Labs: 05/23/18 06:34 05/23/18 06:34 - Constitutional Appears: Non-toxic, No Acute Distress, Unkempt - Head Exam Head Exam: ATRAUMATIC, NORMAL INSPECTION - Eye Exam Eye Exam: EOMI Pupil Exam: NORMAL ACCOMODATION - ENT Exam ENT Exam: Mucous Membranes Moist - Respiratory Exam Respiratory Exam: Wheezes, NORMAL BREATHING PATTERN. absent: Accessory Muscle Use, Respiratory Distress - Cardiovascular Exam Cardiovascular Exam: REGULAR RHYTHM, +S1, +S2 - GI/Abdominal Exam GI & Abdominal Exam: Soft, Normal Bowel Sounds. absent: Distended, Firm, Guarding, Tenderness - Extremities Exam Extremities Exam: Normal Inspection - Back Exam Back Exam: NORMAL INSPECTION - Neurological Exam Neurological Exam: Alert, CN II-XII Intact, Normal Gait, Oriented x3 Neuro motor strength exam: Left Upper Extremity: 5, Right Upper Extremity: 5, Left Lower Extremity: 5, Right Lower Extremity: 5 - Psychiatric Exam Psychiatric exam: Normal Affect, Normal Mood Assessment and Plan - Assessment and Plan (Free Text) Assessment: COPD (chronic obstructive pulmonary disease) exacerbation Chest X ray: COPD, no active lung disease Advair 500/50 Spiriva 1puff daily Duonebs BID [facility] Solu Medrol 40mg IVP Q6 hours, DC and switch to oral PO taper Hypokalemia Resolved Hx. Fall One week ago Rib X ray - non displaced fx of R 7/8 ribs with evidence of healing Alcohol use disorder Thiamine, Multivitamin, Folic Acid PO daily No signs of withdrawal Depression Hx of depression and suicidal ideation on 1:1 observation Psych consult placed, Dr. Alonzo - help appreciated Zoloft 100mg PO daily Klonipin 0.5 mg PO TID History of gastric ulcer Protonix 40mg PO daily Chronic Pain Tylenol prn pain Tylenol #3 1 tab PO Q6 prn severe pain Prophylactic Measures Protonix 40mg PO daily Lovenox 40mg SC daily Heart healthy diet Dispo -> Transfer to today. All orders and management per Dr. Lisa Molina DO PGY3
[2018-05-23] MEDS: INCRUSE ELLIPTA 62.5 MG INH SCH (10:37)
[2018-05-23] MEDS: Enoxaparin 40 mg Syringe SC SCH (10:38)
[2018-05-23] MEDS: Multiple Vitamins Tab PO SCH (10:39)
[2018-05-23] MEDS: Pantoprazole 40 mg EC Tab PO SCH (10:39)
--- NOTE | 2018-05-23 12:06 | PCM.PYCHPN ---
Psychiatric Progress Note - Psychiatric Progress Note Patient seen today, length of contact: 15 min Patient Chief Complaint: "I am not ready" Problems Identified/Issues Discussed: The pt is seen, chart reviewed, case discussed with staff. The pt is compliant with medications and reports no side-effects. Symptoms are improving but needs more time to stabilize. He says he doesn't feel safe re suicide if he is to be let go today After care discussed, support and psychoeducation given. Medication Change: Yes (increase zoloft) Medical Record Reviewed: Yes Mental Status Examination - Cognitive Function Orientation: Person, Place, Situation, Time Memory: Impaired Attention: Poor Concentration: Poor Association: WNL Fund of Knowledge: WNL - Mood Mood: Depressed, Anxious - Affect Affect: Constricted - Speech Speech: Appropriate - Formal Thought Process Formal Thought Process: No Impairment - Suicidal Ideation Suicidal Ideation: No - Homicidal Ideation Homicidal Ideation: No Goal/Treatment Plan - Goal/Treatment Plan Need for Continued Stay: Discharge may exacerbated symptoms, Severe functional impairment Progress Toward Problem(s) and Goals/Treatment Plan: Start Zoloft 100 and Remeron 30-his outside medications Add low-dose Klonopin because he is visibly very anxious Relapse prevention for alcohol As needed medications All risks, benefits and alternatives of the meds discussed, and the pt agreed and understood. Individual therapy daily Psychoeducation and support daily Encourage compliance with meds and after care Refer to outpatient program - he is already accepted by [facility] IDT program Teach healthy lifestyle methods, i.e. diet, exercise, meditation Smoking cessation and patch if needed Estimated Date of D/C: 05/26/18
--- NOTE | 2018-05-23 13:24 | PCM.BM ---
<Debby Mariano - Last Filed: 05/23/18 13:21> Treatment Plan Problems - Problems identified on initial assessmt Problem 1 Date Initiated: 05/23/18 Time Initiated: 12:30 Assessment reference: NA Status: Active Treatment assets and liabiliti Patient Assests: cooperative, insightful, self-reliant, ADL independent, negotiates basic needs, cognitively intact Patient Liabilities: live alone, financial problems, poor support system, relationship conflicts, substance abuse, medical problems, visual impairment - Milieu Protocol Maintain good personal hygiene: daily Encourage regular showers, daily Remind patient to perform daily oral care, daily Assist patient to perform ADL's Maintain personal safety: every shift Educate patient to report safety concerns to staff, every shift Monitor environment for contraband/sharps Medication safety: Monitor for expected outcome, potential side effects: every shift, Assess barriers to learning: every shift, Assess readiness for medication education: every shift Milieu Narrative: Start Zoloft 100 and Remeron 30-his outside medications Add low-dose Klonopin because he is visibly very anxious Relapse prevention for alcohol As needed medications All risks, benefits and alternatives of the meds discussed, and the pt agreed and understood. Individual therapy daily Psychoeducation and support daily Encourage compliance with meds and after care Refer to outpatient program - he is already accepted by [facility] IDT program Teach healthy lifestyle methods, i.e. diet, exercise, meditation Smoking cessation and patch if needed 32 min Discharge/Continuing Care - Treatment Team Participation Patient/Family/SO Statement: Start Zoloft 100 and Remeron 30-his outside medications Add low-dose Klonopin because he is visibly very anxious Relapse prevention for alcohol As needed medications All risks, benefits and alternatives of the meds discussed, and the pt agreed and understood. Individual therapy daily Psychoeducation and support daily Encourage compliance with meds and after care Refer to outpatient program - he is already accepted by [facility] IDT program Teach healthy lifestyle methods, i.e. diet, exercise, meditation Smoking cessation and patch if needed 32 min <Esequiel Alonzo - Last Filed: 05/23/18 14:48> - Diagnosis (1) Alcohol use disorder Status: Acute Interventions: 05/23/18 14:48 * * Educate regarding risks, benefits, side effects and alternatives of medications * Use Motivational Interviewing for abstinence * Use CBT for relapse prevention * Medication management for withdrawal symptoms * Encourage medication assisted treatment * (2) Depression Status: Acute Interventions: 05/23/18 14:48 * Assess/adjust medications daily and /or as needed * See patient on an individual basis 7x/week to assess symptoms of depression * Monitor for side effects & effectiveness of medications *
[2018-05-23] MEDS ORDERED: Pneumococcal 23-Valent Vaccine IM ONE (13:43)
[2018-05-23] MEDS: Acetaminophen-Codeine 300/30 mg Tab PO PRN (20:59)
[2018-05-24] MEDS: Aluminum Hydroxide/Magnesium Hydroxide Susp (30 mL) PO PRN (00:28)
[2018-05-24] MEDS: Albuterol-Ipratrop 3 mg / 0.5 (3 ml) UD INH SCH ×6 (01:03→20:00)
[2018-05-24] MEDS: Acetaminophen-Codeine 300/30 mg Tab PO PRN ×2 (08:50→21:15)
[2018-05-24] MEDS: Fluticasone-Salmeterol 500-50mcg Diskus INH SCH ×2 (08:51→20:10)
[2018-05-24] MEDS: INCRUSE ELLIPTA 62.5 MG INH SCH (08:53)
[2018-05-24] MEDS: Pantoprazole 40 mg EC Tab PO SCH (09:48)
[2018-05-24] MEDS: Multiple Vitamins Tab PO SCH (09:49)
[2018-05-24] MEDS: guaiFENesin 100 mg/5 ml Syrup UD PO PRN ×2 (17:46→21:41)
--- NOTE | 2018-05-24 20:16 | PCM.PYCHPN ---
Psychiatric Progress Note - Psychiatric Progress Note Patient seen today, length of contact: 15 min Patient Chief Complaint: Patient seen and evaluated, chart reviewed. Case discussed with the nurse. He is still isolated to himself. He encouraged to attend groups. He reports depressed mood and feelings of hopelessness and helplessness. He still reports suicidal ideation without any plan and intent. Patient reports improvement in withdrawal symptoms including nausea, headaches, cramps and sweating. Patient is compliant with medications and denies any side effects. Symptoms are improving but need more time to stabilize. Support and psychoeducation given Medication Change: Yes (increase zoloft) Medical Record Reviewed: Yes Mental Status Examination - Cognitive Function Orientation: Person, Place, Situation, Time Memory: Impaired Attention: Poor Concentration: Poor Association: WNL Fund of Knowledge: WNL Decription of patient's judgement and insights: fair/improving - Mood Mood: Depressed, Anxious - Affect Affect: Constricted - Speech Speech: Appropriate - Formal Thought Process Formal Thought Process: No Impairment - Suicidal Ideation Suicidal Ideation: No Plan: denied - Homicidal Ideation Homicidal Ideation: No Plan: denied Goal/Treatment Plan - Goal/Treatment Plan Need for Continued Stay: Discharge may exacerbated symptoms, Severe functional impairment Progress Toward Problem(s) and Goals/Treatment Plan: Continue medications Support and psychoeducation daily Attend groups and activities daily After care planning by GABE Estimated Date of D/C: 05/27/18
[2018-05-25] MEDS: Albuterol-Ipratrop 3 mg / 0.5 (3 ml) UD INH SCH ×6 (00:09→20:04)
[2018-05-25] MEDS: Acetaminophen-Codeine 300/30 mg Tab PO PRN ×3 (05:31→21:40)
[2018-05-25] MEDS: INCRUSE ELLIPTA 62.5 MG INH SCH (08:35)
[2018-05-25] MEDS: Fluticasone-Salmeterol 500-50mcg Diskus INH SCH ×2 (08:35→20:03)
[2018-05-25] MEDS: guaiFENesin 100 mg/5 ml Syrup UD PO PRN ×3 (09:03→21:46)
[2018-05-25] MEDS: Pantoprazole 40 mg EC Tab PO SCH (09:05)
[2018-05-25] MEDS: Multiple Vitamins Tab PO SCH (09:07)
--- NOTE | 2018-05-25 10:14 | PCM.PYCHPN ---
Psychiatric Progress Note - Psychiatric Progress Note Patient seen today, length of contact: 15 min Patient Chief Complaint: "I HAVE DIFFICULTY IN CATCHING MY BREATH" Problems Identified/Issues Discussed: Patient seen and evaluated, chart reviewed. Case discussed with the nurse. He stated that he is worried about his physical health. He further explained that he had difficulty in breathing yesterday. He was seen by glass laminating operator and he needs to move to medical floor. He is able to participate in some group activities. He reports depressed mood. He denied feelings of hopelessness and helplessness. He denied suicidal ideation, plan and intent. Patient reports improvement in withdrawal symptoms including nausea, headaches, cramps and sweating. Patient is compliant with medications and denies any side effects. Symptoms are improving but need more time to stabilize. Support and psychoeducation given Medication Change: No Medical Record Reviewed: Yes Mental Status Examination - Cognitive Function Orientation: Person, Place, Situation, Time Memory: Impaired Attention: Poor Concentration: Poor Association: WNL Fund of Knowledge: WNL Decription of patient's judgement and insights: fair/improving - Mood Mood: Depressed, Anxious - Affect Affect: Constricted - Speech Speech: Appropriate - Formal Thought Process Formal Thought Process: No Impairment Psychotic Thoughts and Behaviors: denied - Suicidal Ideation Suicidal Ideation: No Plan: denied - Homicidal Ideation Homicidal Ideation: No Plan: denied Goal/Treatment Plan - Goal/Treatment Plan Need for Continued Stay: Discharge may exacerbated symptoms, Severe functional impairment Progress Toward Problem(s) and Goals/Treatment Plan: Continue current treatment and management. Psychoeducation Supportive therapy provided Encouraged him to attend and participate in groups Appreciate medical team recommendations Psych C/L team will follow the pt. He is psychiatrically not cleared for his discharge. Medication, benefits, risk were discussed with the pt. He verbalized understand and agree with treatment plan Estimated Date of D/C: 05/27/18
[2018-05-26] MEDS: Albuterol-Ipratrop 3 mg / 0.5 (3 ml) UD INH SCH ×6 (00:03→19:05)
[2018-05-26] MEDS: Fluticasone-Salmeterol 500-50mcg Diskus INH SCH ×2 (07:46→19:04)
[2018-05-26] MEDS: guaiFENesin 100 mg/5 ml Syrup UD PO PRN ×3 (09:32→22:10)
[2018-05-26] MEDS: Acetaminophen-Codeine 300/30 mg Tab PO PRN ×3 (09:33→22:09)
[2018-05-26] MEDS: Pantoprazole 40 mg EC Tab PO SCH (09:33)
[2018-05-26] MEDS: Multiple Vitamins Tab PO SCH (09:34)
--- NOTE | 2018-05-26 14:22 | PCM.PYCHPN ---
Psychiatric Progress Note - Psychiatric Progress Note Patient seen today, length of contact: 16 min Patient Chief Complaint: "I can't breathe well" Problems Identified/Issues Discussed: The pt is seen, chart reviewed, case discussed with staff. The pt is compliant with medications and reports no side-effects. However, he is now back in medical floor due to severe wheezing He is still depressed but not suicidal. Anxious but klonopin helps Risks of benzos, when he has alcohol dependence history, discussed - and he understood. Medication Change: Yes Medical Record Reviewed: Yes Mental Status Examination - Cognitive Function Orientation: Person, Place, Situation, Time Memory: Impaired Attention: Poor Concentration: Poor Association: WNL Fund of Knowledge: WNL - Mood Mood: Depressed, Anxious - Affect Affect: Constricted - Speech Speech: Appropriate - Formal Thought Process Formal Thought Process: No Impairment - Suicidal Ideation Suicidal Ideation: No - Homicidal Ideation Homicidal Ideation: No Goal/Treatment Plan - Goal/Treatment Plan Need for Continued Stay: Severe functional impairment, Other (medical) Progress Toward Problem(s) and Goals/Treatment Plan: Zoloft is now 150 and Remeron 30 mg Added low-dose Klonopin because he is visibly very anxious Relapse prevention for alcohol As needed medications All risks, benefits and alternatives of the meds discussed, and the pt agreed and understood. Psychoeducation and support daily Encourage compliance with meds and after care Refer to outpatient program - he is already accepted by [facility] IDT program Teach healthy lifestyle methods, i.e. diet, exercise, meditation Smoking cessation and patch if needed
[2018-05-27] MEDS: Albuterol-Ipratrop 3 mg / 0.5 (3 ml) UD INH SCH ×3 (00:38→19:23)
--- NOTE | 2018-05-27 06:17 | CARD ---
APPROVED REPORT EKG Measurement Heart [id number] <Conclusion> Sinus tachycardia Possible right and Left atrial enlargement Borderline ECG
[2018-05-27] MEDS: Fluticasone-Salmeterol 500-50mcg Diskus INH SCH ×2 (08:32→19:23)
[2018-05-27] MEDS: Multiple Vitamins Tab PO SCH (09:47)
[2018-05-27] MEDS: Pantoprazole 40 mg EC Tab PO SCH (09:47)
[2018-05-27 09:50] LABS: BASO % 0.3 % (0.0-2.0); EOS # 0.2 K/uL (0.0-0.7); EOS % 1.6 % (0.0-4.0); LYMPH # 1.7 K/uL (1.0-4.3); LYMPH % 17.2 % (20.0-40.0); MEAN CELL VOLUME 97.6 fL (80.0-94.0); MEAN CORPUSCULAR HGB CONC 33.8 g/dL (33.0-37.0); MEAN PLATELET VOLUME 8.2 fL (7.2-11.7); MONO # 0.6 K/uL (0.0-0.8); MONO % 6.6 % (0.0-10.0); NEUT # 7.2 K/uL (1.8-7.0); NEUT % 74.3 % (50.0-75.0); RBC 3.02 Mil/uL (4.40-5.90); RED CELL DISTRIBUTION WIDTH 16.9 % (11.5-14.5); WHITE BLOOD COUNT 9.7 K/uL (4.8-10.8)
[2018-05-27] MEDS: Acetaminophen-Codeine 300/30 mg Tab PO PRN ×3 (09:58→22:02)
[2018-05-27] MEDS: guaiFENesin 100 mg/5 ml Syrup UD PO PRN ×2 (09:58→22:02)
[2018-05-27 10:10] LABS: ALB/GLOB RATIO 1.2 (1.0-2.1); ALBUMIN 3.3 g/dL (3.5-5.0); ALT/SGPT 16 U/L (21-72); AST/SGOT 21 U/L (17-59); BLOOD UREA NITROGEN 17 mg/dL (9-20); CALCIUM 8.2 mg/dl (8.6-10.4); GFR AFRICAN-AMERICAN > 60; GFR NON-AFRICAN AMERICAN > 60
--- NOTE | 2018-05-27 16:34 | CP.PCM.PN ---
Subjective - Date & Time of Evaluation Date of Evaluation: 05/27/18 Time of Evaluation: 16:31 - Subjective Subjective: Internal Medicine Progress Note - Dr Gonzalez Service Patient seen and examined at bedside. Per nursing, no acute events overnight. Patient was transferred to med/surg yesterday for shortness of breath. This morning patient reports breathing is improved. States that he is having right sided rib pain. Offers no other complaints at this time. Denies headaches, dizziness, cp, palpitations, sob, abdominal pain, urinary symptoms, changes in bowel habits. Denies suicidal or homicidal ideation. Objective - Vital Signs/Intake and Output Vital Signs (last 24 hours): Temp Pulse Resp BP Pulse Ox 97.8 F 90 21 171/88 H 95 05/27/18 07:00 05/27/18 07:00 05/27/18 07:00 05/27/18 07:00 05/27/18 07:00 Intake and Output: 05/27/18 05/27/18 06:59 18:59 Intake Total 955 360 Balance 955 360 - Medications Medications: Current Medications Acetaminophen (Tylenol 325mg Tab) 650 mg PO Q4 PRN PRN Reason: Pain, Mild (1-3) Last Admin: 05/25/18 18:40 Dose: 650 mg Acetaminophen/Codeine Phosphate (Tylenol/Codeine 300 Mg/30 Mg) 1 ea PO Q6 PRN PRN Reason: Pain, severe (8-10) Last Admin: 05/27/18 16:08 Dose: 1 ea Al Hydrox/Mg Hydrox/Simethicone (Maalox 30 Ml) 30 ml PO Q6 PRN PRN Reason: Indigestion / Heartburn Last Admin: 05/24/18 00:28 Dose: 30 ml Albuterol/Ipratropium (Duoneb 3 Mg/0.5 Mg (3 Ml) Ud) 3 ml INH RQ6 [facility] Last Admin: 05/27/18 14:35 Dose: 3 ml Clonazepam (Klonopin) 0.5 mg PO TID [facility] Last Admin: 05/27/18 13:58 Dose: 0.5 mg Folic Acid (Folic Acid) 1 mg PO DAILY [facility] Last Admin: 05/27/18 09:47 Dose: 1 mg Guaifenesin (Robitussin) 100 mg PO Q4H PRN PRN Reason: Cough Last Admin: 05/27/18 09:58 Dose: 100 mg Home Med (Patient's Own Inhaler) 18 puff INH RQ24 [facility] Stop: 05/30/18 08:01 Last Admin: 05/25/18 08:35 Dose: 18 puff Mirtazapine (Remeron) 30 mg PO HS [facility] Last Admin: 05/26/18 22:09 Dose: 30 mg Multivitamins (Hexavitamin) 1 tab PO DAILY [facility] Last Admin: 05/27/18 09:47 Dose: 1 tab Nicotine (Nicoderm Cq) 1 patch TD DAILY [facility] Last Admin: 05/27/18 09:47 Dose: 1 patch Pantoprazole Sodium (Protonix Ec Tab) 40 mg PO DAILY [facility] Last Admin: 05/27/18 09:47 Dose: 40 mg Prednisone (Prednisone Tab) 30 mg PO DAILY [facility] PRN Reason: Taper Stop: 05/29/18 17:59 Last Admin: 05/27/18 09:58 Dose: 30 mg Fluticasone/Salmeterol (Advair Diskus 500/50) 1 puff INH RQ12 [facility] Last Admin: 05/27/18 08:32 Dose: 1 puff Sertraline HCl (Zoloft) 150 mg PO DAILY [facility] Last Admin: 05/27/18 09:46 Dose: 150 mg Thiamine HCl (Vitamin B1 Tab) 100 mg PO DAILY [facility] Last Admin: 05/27/18 09:47 Dose: 100 mg - Labs Labs: 05/27/18 09:45 05/27/18 09:45 - Constitutional Appears: Non-toxic, No Acute Distress - Head Exam Head Exam: ATRAUMATIC, NORMAL INSPECTION, NORMOCEPHALIC - Eye Exam Eye Exam: EOMI, Normal appearance Pupil Exam: NORMAL ACCOMODATION - ENT Exam ENT Exam: Mucous Membranes Moist - Neck Exam Neck Exam: Full ROM - Respiratory Exam Respiratory Exam: Wheezes, NORMAL BREATHING PATTERN. absent: Clear to Ausculation Bilateral, Rales, Rhonchi, Respiratory Distress - Cardiovascular Exam Cardiovascular Exam: REGULAR RHYTHM, +S1, +S2 - GI/Abdominal Exam GI & Abdominal Exam: Soft. absent: Guarding, Rigid, Tenderness - Rectal Exam Rectal Exam: Deferred - Extremities Exam Extremities Exam: Normal Inspection - Back Exam Back Exam: NORMAL INSPECTION - Neurological Exam Neurological Exam: Alert, Awake, Oriented x3 - Psychiatric Exam Psychiatric exam: Normal Affect, Normal Mood - Skin Skin Exam: Dry, Normal Color, Warm Assessment and Plan - Assessment and Plan (Free Text) Assessment: A/P: Patient is a 58 year old homeless male with past medical history of COPD who initially presented to the ED for shortness of breath and productive cough. Patient also reported that he was depressed and wanted to . While on the floors patient was medically cleared for psych admission. While on psych patient developed shortness of breath and was sent to med/surg overnight for further management. COPD (chronic obstructive pulmonary disease) exacerbation -Stable, afebrile -Chest X ray on admission: COPD, no active lung disease -Continue Advair 500/50 -Spiriva 1 puff daily -Duonebs Q6H kathy -Prednisone 30mg PO daily -Robitussin prn cough Hypokalemia -Monitor and replete as needed Hx. Fall -One week ago -Rib X ray showed nondisplaced right rib fractures 7 and 8 mostly anterior with some healing callus formation Alcohol use disorder/Tobacco use disorder -Continue Thiamine, Multivitamin, Folic Acid PO daily -Alcohol cessation advised -Patient states that he smoked 1/2 ppd -Tobacco cessation advised Depression -Hx of depression and suicidal ideation -Psych consult placed, help appreciated -Zoloft 150mg PO daily -Klonipin 0.5 mg PO TID History of gastric ulcer -Protonix 40mg PO daily Decreased Appetite -Added Ensure TID Chronic Pain -Tylenol prn pain -Tylenol #3 1 tab PO Q6 prn severe pain Prophylactic Measures -Protonix 40mg PO daily -SCDs DISPO: Patient is medically stable. Will transfer patient to psych today. Plan discussed with Dr Lias Baker DO PGY-2
[2018-05-28] MEDS: Albuterol-Ipratrop 3 mg / 0.5 (3 ml) UD INH SCH ×4 (01:36→21:04)
[2018-05-28] MEDS: Fluticasone-Salmeterol 500-50mcg Diskus INH SCH ×2 (07:19→21:06)
[2018-05-28] MEDS: guaiFENesin 100 mg/5 ml Syrup UD PO PRN ×2 (10:01→23:01)
[2018-05-28] MEDS: Multiple Vitamins Tab PO SCH (10:02)
[2018-05-28] MEDS: Acetaminophen-Codeine 300/30 mg Tab PO PRN ×3 (10:02→21:57)
[2018-05-28] MEDS: Pantoprazole 40 mg EC Tab PO SCH (10:02)
[2018-05-28] MEDS: Aluminum Hydroxide/Magnesium Hydroxide Susp (30 mL) PO PRN (12:19)
[2018-05-28] MEDS ORDERED: Vitamins A & D Oint UD Foilpak TOP PRN (17:54)
[2018-05-29] MEDS: Albuterol-Ipratrop 3 mg / 0.5 (3 ml) UD INH SCH ×3 (01:35→19:36)
[2018-05-29] MEDS: Fluticasone-Salmeterol 500-50mcg Diskus INH SCH ×2 (07:38→19:36)
[2018-05-29] MEDS: guaiFENesin 100 mg/5 ml Syrup UD PO PRN ×3 (09:10→18:30)
[2018-05-29] MEDS: Pantoprazole 40 mg EC Tab PO SCH (09:10)
[2018-05-29] MEDS: Multiple Vitamins Tab PO SCH (09:11)
[2018-05-29] MEDS: Acetaminophen-Codeine 300/30 mg Tab PO PRN ×3 (09:11→20:25)
[2018-05-30] MEDS: Albuterol-Ipratrop 3 mg / 0.5 (3 ml) UD INH SCH ×4 (01:14→20:33)
--- NOTE | 2018-05-30 07:07 | CP.PCM.PN ---
Subjective - Date & Time of Evaluation Date of Evaluation: 05/30/18 Time of Evaluation: 07:06 - Subjective Subjective: Internal Medicine Progress Note - Dr Gonzalez Service Patient seen and examined at bedside. Per nursing no acute events overnight. Patient is doing well, offers no complaints at this time. States that breathing is improved. Denies headaches, dizziness, cp, palpitations, sob, abdominal pain , urinary symptoms, changes in bowel habits. Objective - Vital Signs/Intake and Output Vital Signs (last 24 hours): Temp Pulse Resp BP Pulse Ox 97.6 F 84 20 125/78 99 05/30/18 00:00 05/30/18 00:00 05/30/18 00:00 05/30/18 00:00 05/30/18 00:00 Intake and Output: 05/30/18 05/30/18 06:59 18:59 Intake Total 300 Balance 300 - Medications Medications: Current Medications Acetaminophen (Tylenol 325mg Tab) 650 mg PO Q4 PRN PRN Reason: Pain, Mild (1-3) Last Admin: 05/25/18 18:40 Dose: 650 mg Acetaminophen/Codeine Phosphate (Tylenol/Codeine 300 Mg/30 Mg) 1 ea PO Q6 PRN PRN Reason: Pain, moderate (4-7) Last Admin: 05/29/18 20:25 Dose: 1 ea Al Hydrox/Mg Hydrox/Simethicone (Maalox 30 Ml) 30 ml PO Q6 PRN PRN Reason: Indigestion / Heartburn Last Admin: 05/28/18 12:19 Dose: 30 ml Albuterol/Ipratropium (Duoneb 3 Mg/0.5 Mg (3 Ml) Ud) 3 ml INH RQ6 [facility]ERNA[facility]DA Last Admin: 05/30/18 01:14 Dose: 3 ml Clonazepam (Klonopin) 0.5 mg PO TID FERNANDA Last Admin: 05/29/18 18:00 Dose: 0.5 mg Folic Acid (Folic Acid) 1 mg PO DAILY FERNANDA Last Admin: 05/29/18 09:11 Dose: 1 mg Guaifenesin (Robitussin) 100 mg PO Q4H PRN PRN Reason: Cough Last Admin: 05/29/18 18:30 Dose: 100 mg Home Med (Patient's Own Inhaler) 18 puff INH RQ24 [facility] Stop: 05/30/18 08:01 Last Admin: 05/25/18 08:35 Dose: 18 puff Mirtazapine (Remeron) 30 mg PO HS [facility] Last Admin: 05/29/18 21:19 Dose: 30 mg Multivitamins (Hexavitamin) 1 tab PO DAILY [facility] Last Admin: 05/29/18 09:11 Dose: 1 tab Nicotine (Nicoderm Cq) 1 patch TD DAILY [facility] Last Admin: 05/29/18 09:10 Dose: 1 patch Pantoprazole Sodium (Protonix Ec Tab) 40 mg PO DAILY [facility] Last Admin: 05/29/18 09:10 Dose: 40 mg Fluticasone/Salmeterol (Advair Diskus 500/50) 1 puff INH RQ12 [facility] Last Admin: 05/29/18 19:36 Dose: 1 puff Sertraline HCl (Zoloft) 150 mg PO DAILY [facility] Last Admin: 05/29/18 09:11 Dose: 150 mg Thiamine HCl (Vitamin B1 Tab) 100 mg PO DAILY [facility] Last Admin: 05/29/18 09:11 Dose: 100 mg Vitamin A (Vitamin A & D Oint Ud Foilpak) 1 ea TOP Q8 PRN PRN Reason: dry lip Last Admin: 05/28/18 19:10 Dose: 1 ea - Labs Labs: 05/27/18 09:45 05/27/18 09:45 - Constitutional Appears: Non-toxic, No Acute Distress - Head Exam Head Exam: ATRAUMATIC, NORMAL INSPECTION, NORMOCEPHALIC - Eye Exam Eye Exam: EOMI, Normal appearance - ENT Exam ENT Exam: Mucous Membranes Moist - Neck Exam Neck Exam: Full ROM - Respiratory Exam Respiratory Exam: Clear to Ausculation Bilateral, NORMAL BREATHING PATTERN. absent: Rales, Rhonchi, Wheezes - Cardiovascular Exam Cardiovascular Exam: REGULAR RHYTHM, +S1, +S2 - GI/Abdominal Exam GI & Abdominal Exam: Soft, Normal Bowel Sounds. absent: Firm, Guarding, Rigid, Tenderness - Extremities Exam Extremities Exam: Normal Inspection - Back Exam Back Exam: NORMAL INSPECTION - Neurological Exam Neurological Exam: Alert, Awake, Oriented x3 - Psychiatric Exam Psychiatric exam: Normal Affect, Normal Mood - Skin Skin Exam: Dry, Normal Color, Warm Assessment and Plan - Assessment and Plan (Free Text) Assessment: A/P: Patient is a 58 year old homeless male with past medical history of COPD who initially presented to the ED for shortness of breath and productive cough. Patient also reported that he was depressed and wanted to . While on the floors patient was medically cleared for psych admission. While on psych patient developed shortness of breath and was sent to med/surg overnight for further management. COPD (chronic obstructive pulmonary disease) exacerbation -Stable, afebrile -Chest X ray on admission: COPD, no active lung disease -Continue Advair 500/50 -Spiriva 1 puff daily -Duonebs Q6H prn -Prednisone 10mg PO once today -Robitussin prn cough Hypokalemia -Monitor and replete as needed Hx. Fall -One week ago -Rib X ray showed nondisplaced right rib fractures 7 and 8 mostly anterior with some healing callus formation Alcohol use disorder/Tobacco use disorder -Continue Thiamine, Multivitamin, Folic Acid PO daily -Alcohol cessation advised -Patient states that he smoked 1/2 ppd -Tobacco cessation advised Depression -Hx of depression and suicidal ideation -Psych consult placed, help appreciated -Zoloft 150mg PO daily -Klonipin 0.5 mg PO TID History of gastric ulcer -Protonix 40mg PO daily Decreased Appetite -Added Ensure TID Chronic Pain -Tylenol prn pain -Tylenol #3 1 tab PO Q6 prn severe pain Prophylactic Measures -Protonix 40mg PO daily -SCDs DISPO: Patient is medically stable for discharge home today. Patient to follow up with PMD within 1 week. Plan discussed with Dr Gonzalez Discharge Medications Nebulizer Machine, Albuterol Nebules #100 Zoloft 150mg PO daily #14 Tylenol 3 prn pain Gabapentin 100mg PO TID #42 Robitussin 100mg PO Q4H prn cough Advair 1 puff Q12H Multivitamin 1 tab PO daily #30 Thiamine 100mg PO daily #30 Folic Acid 1 tab PO daily #30 Remeron 30mg PO HS #14 Lani Baker DO PGY-2
--- NOTE | 2018-05-30 07:09 | CP.PCM.PN ---
Subjective - Date & Time of Evaluation Date of Evaluation: 05/29/18 Time of Evaluation: 11:05 - Subjective Subjective: Note for 05/29 PGY2 Medicine Note for Dr. Gonzalez Patient seen and examined this morning at bedside. No acute events overnight. Patient reports his breathing is much improved but does not feel "100%". His rib pain has subsided. He is tolerating his diet. Denies fevers, chills, nausea , vomiting, diarrhea, constipation, chest pain, palpitations, abdominal pain, headaches, vision changes, SI or HI. Objective - Vital Signs/Intake and Output Vital Signs (last 24 hours): Temp Pulse Resp BP Pulse Ox 97.6 F 84 20 125/78 99 05/30/18 00:00 05/30/18 00:00 05/30/18 00:00 05/30/18 00:00 05/30/18 00:00 Intake and Output: 05/30/18 05/30/18 06:59 18:59 Intake Total 300 Balance 300 - Medications Medications: Current Medications Acetaminophen (Tylenol 325mg Tab) 650 mg PO Q4 PRN PRN Reason: Pain, Mild (1-3) Last Admin: 05/25/18 18:40 Dose: 650 mg Acetaminophen/Codeine Phosphate (Tylenol/Codeine 300 Mg/30 Mg) 1 ea PO Q6 PRN PRN Reason: Pain, moderate (4-7) Last Admin: 05/29/18 20:25 Dose: 1 ea Al Hydrox/Mg Hydrox/Simethicone (Maalox 30 Ml) 30 ml PO Q6 PRN PRN Reason: Indigestion / Heartburn Last Admin: 05/28/18 12:19 Dose: 30 ml Albuterol/Ipratropium (Duoneb 3 Mg/0.5 Mg (3 Ml) Ud) 3 ml INH RQ6 KATHY Last Admin: 05/30/18 01:14 Dose: 3 ml Clonazepam (Klonopin) 0.5 mg PO TID KATHY Last Admin: 05/29/18 18:00 Dose: 0.5 mg Folic Acid (Folic Acid) 1 mg PO DAILY KATHY Last Admin: 05/29/18 09:11 Dose: 1 mg Guaifenesin (Robitussin) 100 mg PO Q4H PRN PRN Reason: Cough Last Admin: 05/29/18 18:30 Dose: 100 mg Home Med (Patient's Own Inhaler) 18 puff INH RQ24 [facility] Stop: 05/30/18 08:01 Last Admin: 05/25/18 08:35 Dose: 18 puff Mirtazapine (Remeron) 30 mg PO HS [facility] Last Admin: 05/29/18 21:19 Dose: 30 mg Multivitamins (Hexavitamin) 1 tab PO DAILY [facility] Last Admin: 05/29/18 09:11 Dose: 1 tab Nicotine (Nicoderm Cq) 1 patch TD DAILY [facility] Last Admin: 05/29/18 09:10 Dose: 1 patch Pantoprazole Sodium (Protonix Ec Tab) 40 mg PO DAILY [facility] Last Admin: 05/29/18 09:10 Dose: 40 mg Fluticasone/Salmeterol (Advair Diskus 500/50) 1 puff INH RQ12 [facility] Last Admin: 05/29/18 19:36 Dose: 1 puff Sertraline HCl (Zoloft) 150 mg PO DAILY [facility] Last Admin: 05/29/18 09:11 Dose: 150 mg Thiamine HCl (Vitamin B1 Tab) 100 mg PO DAILY [facility] Last Admin: 05/29/18 09:11 Dose: 100 mg Vitamin A (Vitamin A & D Oint Ud Foilpak) 1 ea TOP Q8 PRN PRN Reason: dry lip Last Admin: 05/28/18 19:10 Dose: 1 ea - Labs Labs: 05/27/18 09:45 05/27/18 09:45 - Constitutional Appears: Non-toxic, No Acute Distress - Head Exam Head Exam: ATRAUMATIC - Eye Exam Eye Exam: EOMI, Normal appearance - ENT Exam ENT Exam: Mucous Membranes Moist - Neck Exam Neck Exam: absent: Lymphadenopathy - Respiratory Exam Respiratory Exam: Wheezes (mild throughout), NORMAL BREATHING PATTERN. absent: Accessory Muscle Use, Rales, Rhonchi, Respiratory Distress - Cardiovascular Exam Cardiovascular Exam: REGULAR RHYTHM, +S1, +S2 - GI/Abdominal Exam GI & Abdominal Exam: Soft, Normal Bowel Sounds. absent: Distended, Firm, Guarding, Rigid, Tenderness - Extremities Exam Extremities Exam: absent: Calf Tenderness, Pedal Edema - Neurological Exam Neurological Exam: Alert, Awake, CN II-XII Intact, Oriented x3 - Psychiatric Exam Psychiatric exam: Normal Affect, Normal Mood - Skin Skin Exam: Dry, Warm Assessment and Plan - Assessment and Plan (Free Text) Plan: COPD exacerbation -Stable, afebrile -Chest X ray on admission: COPD, no active lung disease -Continue Advair 500/50 1 puff INH q12h -Spiriva 1 puff daily -Duonebs Q6H kathy -Prednisone 30mg PO daily -Tylenol with Codeine 1 ea PO q6h prn -Robitussin prn cough Hypokalemia -Monitor and replete as needed Hx. Fall -One week ago -Rib X ray showed nondisplaced right rib fractures 7 and 8 mostly anterior with some healing callus formation Alcohol use disorder/Tobacco use disorder -Continue Thiamine, Multivitamin, Folic Acid PO daily -Alcohol cessation advised -Patient states that he smoked 1/2 ppd -Tobacco cessation advised Depression -Hx of depression and suicidal ideation - denies SI at this time -Psych consult placed, help appreciated -Zoloft 150mg PO daily -Klonipin 0.5 mg PO TID History of gastric ulcer -Protonix 40mg PO daily Decreased Appetite -Added Ensure TID -tolerating at this time Chronic Pain -Tylenol prn pain -Tylenol #3 1 tab PO Q6 prn severe pain Prophylactic Measures -Protonix 40mg PO daily -SCDs DISPO: Patient is medically stable. Probable discharge tomorrow. Case discussed with and all medical management per Dr Lisa Chandra Abby PGY2
[2018-05-30] MEDS: Fluticasone-Salmeterol 500-50mcg Diskus INH SCH ×2 (07:14→20:33)
[2018-05-30] MEDS: guaiFENesin 100 mg/5 ml Syrup UD PO PRN ×3 (10:08→21:41)
[2018-05-30] MEDS: Multiple Vitamins Tab PO SCH (10:08)
[2018-05-30] MEDS: Acetaminophen-Codeine 300/30 mg Tab PO PRN ×2 (10:09→17:29)
[2018-05-30] MEDS: Pantoprazole 40 mg EC Tab PO SCH (10:10)
[2018-05-30 17:34] VITALS: RESP 20
[2018-05-31 00:09] VITALS: BP 125/72; PULSE 82; TEMP 97.5; O2SAT 99
[2018-05-31] MEDS: Albuterol-Ipratrop 3 mg / 0.5 (3 ml) UD INH SCH ×2 (01:33→07:40)
[2018-05-31] MEDS: Acetaminophen-Codeine 300/30 mg Tab PO PRN (01:55)
[2018-05-31] MEDS: Fluticasone-Salmeterol 500-50mcg Diskus INH SCH (07:40)
== END 2018-05-31 08:45 | disposition home or self-care (01) | DRG 88 ==
LOC: C.ER 15:06 → C.9E 16:36 → C.6T 17:15 → C.5E 05-23 12:15 → C.3T 05-25 11:14
PROVIDERS: ADMIT Internal Medicine Pulmonary Disease; ATTEND Internal Medicine Pulmonary Disease
DX: J44.1 Chronic obstructive pulmonary disease with (acute) exacerbation (principal); F33.2 Major depressive disorder, recurrent severe without psychotic features; E87.6 Hypokalemia; I10 Essential (primary) hypertension; G89.29 Other chronic pain; R45.851 Suicidal ideations; F17.210 Nicotine dependence, cigarettes, uncomplicated; F10.11 Alcohol abuse, in remission; S22.41XD Multiple fractures of ribs, right side, subsequent encounter for fracture with routine healing; W05.0XXD Fall from non-moving wheelchair, subsequent encounter

== ENCOUNTER 2018-06-03 14:58 | Inpatient (IN) | payer MEDICAID ==
[2018-06-03 15:08] VITALS: BMI 24.3
[2018-06-03] MEDS ORDERED: Albuterol-Ipratrop 3 mg / 0.5 (3 ml) UD INH STA (15:09)
[2018-06-03] MEDS ORDERED: Albuterol-Ipratrop 3 mg / 0.5 (3 ml) UD ONE (15:11)
--- NOTE | 2018-06-03 16:05 | RAD ---
Date of service: 06/03/2018 PROCEDURE: CHEST RADIOGRAPH, 1 VIEW HISTORY: SOB COMPARISON: Chest radiograph dated 05/21/2018. FINDINGS: LUNGS: Stable bibasilar scarring. PLEURA: No pneumothorax or pleural fluid seen. CARDIOVASCULAR: Normal. OSSEOUS STRUCTURES: Old right-sided rib fractures. Unchanged. VISUALIZED UPPER ABDOMEN: Normal. OTHER FINDINGS: None. IMPRESSION: No active disease.
[2018-06-03 16:14] LABS: SQUAMOUS EPITHIAL < 1 /hpf (0-5); URINE BILIRUBIN NEGATIVE (NEGATIVE); URINE BLOOD NEGATIVE (NEGATIVE); URINE CLARITY Clear (Clear); URINE COLOR Yellow (YELLOW); URINE GLUCOSE (UA) NORMAL (Normal); URINE LEUKOCYTE ESTERASE NEG Leu/uL (Negative); URINE PROTEIN NEGATIVE (NEGATIVE); URINE UROBILINOGEN NORMAL mg/dL (0.2-1.0)
[2018-06-03 16:16] LABS: BASO # 0.1 K/uL (0.0-0.2); BASO % 0.6 % (0.0-2.0); EOS # 0.1 K/uL (0.0-0.7); HEMOGLOBIN 11.5 g/dL (12.0-18.0); LYMPH # 2.8 K/uL (1.0-4.3); LYMPH % 24.7 % (20.0-40.0); MEAN CELL VOLUME 94.7 fL (80.0-94.0); MEAN CORPUSCULAR HEMOGLOBIN 31.7 pg (27.0-31.0); MEAN CORPUSCULAR HGB CONC 33.5 g/dL (33.0-37.0); MEAN PLATELET VOLUME 7.9 fL (7.2-11.7); MONO # 0.7 K/uL (0.0-0.8); NEUT # 7.8 K/uL (1.8-7.0); NEUT % 67.7 % (50.0-75.0); RBC 3.64 Mil/uL (4.40-5.90); RED CELL DISTRIBUTION WIDTH 18.1 % (11.5-14.5); WHITE BLOOD COUNT 11.5 K/uL (4.8-10.8)
[2018-06-03 16:24] LABS: ABG ALLEN TEST POS; ARTERIAL BLOOD GAS HCO3 27.4 mmol/L (21-28); ARTERIAL BLOOD GAS O2 SAT 97.9 % (95-98); ARTERIAL BLOOD GAS PCO2 45 mm/Hg (35-45); ARTERIAL BLOOD GAS PH 7.41 (7.35-7.45); ARTERIAL BLOOD GAS PO2 88 mm/Hg (80-100); ARTERIAL BLOOD GAS TCO2 29.9 mmol/L (22-28)
[2018-06-03 16:35] LABS: ALB/GLOB RATIO 1.3 (1.0-2.1); ALBUMIN 3.8 g/dL (3.5-5.0); ALT/SGPT 31 U/L (21-72); AST/SGOT 36 U/L (17-59); BLOOD UREA NITROGEN 9 mg/dL (9-20); CALCIUM 8.2 mg/dl (8.6-10.4); GFR AFRICAN-AMERICAN > 60; GFR NON-AFRICAN AMERICAN > 60
[2018-06-03 16:39] LABS: BARBITURATES, UR NEGATIVE (NEGATIVE); BENZODIAZEPINES, UR NEGATIVE (NEGATIVE); PHENCYCLIDINE, UR NEGATIVE (NEGATIVE)
--- NOTE | 2018-06-03 16:47 | C.PDOC ---
History Of Present Illness 58yo male, BIBA, with complaints of shortness of breath. Patient with recent COPD exacerbation, PMHx includes psychiatric and EtOH abuse, Patient broke two left ribs on 5E psych floor. Patient states he takes Tylenol 3 for pain. Denies any other associated symptoms. No other complaints at this time. Time Seen by Provider: 06/03/18 15:07 Chief Complaint (Nursing): Shortness Of Breath History Per: Patient History/Exam Limitations: no limitations Current Symptoms Are (Timing): Still Present Past Medical History Reviewed: Historical Data, Nursing Documentation, Vital Signs Vital Signs: Last Vital Signs Temp 98 F 06/03/18 15:07 Pulse 112 H 06/03/18 15:07 Resp 18 06/03/18 15:10 BP 112/94 H 06/03/18 15:07 Pulse Ox 90 L 06/03/18 16:58 - Medical History PMH: Anxiety, Asthma, Bronchitis, COPD, Depression, Gastrointestinal Ulcer, HTN , Pneumonia Surgical History: Appendectomy, Tonsillectomy - [facility] Procedures CONTR ABD ARTERIOGRM NEC (05/20/07) DETOXIFICATION SERVICES FOR SUBSTANCE ABUSE TREATMENT (05/05/18) ESOPHAGOGASTRODUODENOSCOPY [EGD] W/CLOSED BIOPSY (05/20/07) EXCISION OF LOWER ESOPHAGUS, ENDO, DIAGN (05/21/17) EXTIRPATION OF MATTER FROM LOWER ESOPHAGUS, ENDO (05/21/17) GROUP LEAD CASTER HELPER FOR SUBSTANCE ABUSE TREATMENT, PSYCHOEDUCATION (05/05/18) GROUP LEAD CASTER HELPER FOR SUBSTANCE ABUSE, COGNITIVE BEHAVIORAL (05/05/18) GROUP PSYCHOTHERAPY (05/05/18) INDIV LEAD CASTER HELPER FOR SUBSTANCE ABUSE TREATMENT, PSYCHOEDUCATION (01/14/17) INDIV LEAD CASTER HELPER FOR SUBSTANCE ABUSE, COGNITIVE BEHAVIORAL (01/14/17) INDIV PSYCHOTHERAPY FOR SUBSTANCE ABUSE TREATMENT, SUPPORT (05/05/18) INDIV PSYCHOTHERAPY FOR SUBSTANCE ABUSE, COGNITIV BEHAVIORAL (05/05/18) INDIV PSYCHOTHERAPY FOR SUBSTANCE ABUSE, PSYCHOEDUCATION (05/05/18) INDIVIDUAL PSYCHOTHERAPY, COGNITIVE-BEHAVIORAL (05/05/18) INDIVIDUAL PSYCHOTHERAPY, SUPPORTIVE (05/05/18) INJECT/INFUSE NEC (03/20/12) MEDICATION MANAGEMENT (03/12/17) MEDS MGMT FOR SUBSTANCE ABUSE TREATMENT, OTH REPL MED (03/12/17) Family History: States: No Known Family Hx - Social History Hx Tobacco Use: Yes Hx Alcohol Use: Yes Hx Substance Use: Yes - Immunization History Hx Tetanus Toxoid Vaccination: Yes Hx Influenza Vaccination: Yes Hx Pneumococcal Vaccination: Yes Review Of Systems Constitutional: Negative for: Fever, Chills Cardiovascular: Negative for: Chest Pain, Palpitations Respiratory: Positive for: Shortness of Breath Gastrointestinal: Negative for: Nausea, Vomiting Musculoskeletal: Negative for: Back Pain Neurological: Negative for: Weakness, Numbness Physical Exam - Physical Exam Appears: Non-toxic, No Acute Distress, Unkempt (foul smelling), Other (EtOH on breath) Skin: Normal Color, Warm, Dry, No Rash Head: Atraumatic, Normacephalic Eye(s): bilateral: Normal Inspection, PERRL, EOMI Nose: Normal Neck: Normal ROM Cardiovascular: Rhythm Regular Respiratory: Other (Distant breath sounds) Gastrointestinal/Abdominal: Soft, No Tenderness Extremity: Normal ROM, No Deformity Neurological/Psych: Oriented x3, Normal Speech ED Course And Treatment - Laboratory Results Result Diagrams: 06/03/18 16:04 06/03/18 16:04 Lab Interpretation: Normal (abg wnl, tox pending, ETOH 171 H) ECG: Interpreted By Mn ECG Rhythm: Sinus Rhythm ECG Interpretation: Normal Rate From EC O2 Sat by Pulse Oximetry: 90 Pulse Ox Interpretation: Normal (may be baseline for this severe COPD pt) - Radiology CXR: Interpreted by Mn CXR Interpretation: Yes: No Acute Disease, Other (++ hyperinflated. no pna/pnx) Progress Note: nicotine patch, declined to give T#3 as pt intermittently asleep and + ETOH intox. No apparent pain, concerned about CO2 retention in copd with somnolence. Reevaluation Time: 16:50 Reassessment Condition: Improved - Physician Consult Information Outcome Of Conversation: 1545, 1700: d/w Dr. Matute, PMD-ok to admit. Medical Decision Making Medical Decision Making: copd exacerbation, no sig leukocytosis, normal EKG still smoking- nicotine patch normal sat (90-93% for this copd pt) without C02 retention alcohol intox/abuse Disposition Doctor Will See Patient In The: Hospital Counseled Patient/Family Regarding: Studies Performed, Diagnosis - Disposition Disposition: HOSPITALIZED Disposition Time: 16:57 Condition: GOOD - Clinical Impression Clinical Impression: COPD exacerbation, Tobacco abuse, Alcohol use disorder - Scribe Statement The provider has reviewed the documentation as recorded by the Scribe (Celso Geronimo) All medical record entries made by the Scribe were at my direction and personally dictated by me. I have reviewed the chart and agree that the record accurately reflects my personal performance of the history, physical exam, medical decision making, and the department course for this patient. I have also personally directed, reviewed, and agree with the discharge instructions and disposition.
[2018-06-03 16:48] LABS: B-TYPE NATRIURETIC PEPTIDE 235 pg/mL (0-900)
[2018-06-03 17:11] LABS: OPIATES, UR POSITIVE (NEGATIVE)
[2018-06-03 21:07] VITALS: RESP 20
[2018-06-03] MEDS ORDERED: Albuterol HFA 90 mcg/actuation (8 g) IH PRN (21:36)
[2018-06-03] MEDS ORDERED: guaiFENesin 100 mg/5 ml Syrup UD PO PRN (21:36)
[2018-06-03] MEDS: MethylPREDNISolone 40 mg Vial IVP SCH (23:51)
[2018-06-04] MEDS: Albuterol-Ipratrop 3 mg / 0.5 (3 ml) UD INH SCH ×7 (00:21→20:06)
[2018-06-04] MEDS: MethylPREDNISolone 40 mg Vial IVP SCH ×3 (05:48→21:11)
--- NOTE | 2018-06-04 07:05 | CP.PCM.PN ---
Subjective - Date & Time of Evaluation Date of Evaluation: 06/04/18 Time of Evaluation: 07:05 - Subjective Subjective: PGY2 Medicine Note for Dr. Gonzalez Patient seen and examined this morning at bedside. Patient was recently discharged on 05/31/18 after being treated for a COPD exacerbated. After discharge , he decided to go back to drinking alcohol and smoking cigarettes. He become progressively short of breath and decided to return to the hospital. Upon walking into the room this morning, he was having a breathing treatment, stating that he was feeling much better compared to last night. During his last admission, he slipped, fell and broke two ribs on his left side. He is requesting Tylenol #3 for pain, as this is what he was treated with previously. He is also requesting a nicotine patch to help with his cravings. He denies fevers, chills, nausea, vomiting, diarrhea, constipation, chest pain, palpitations, abdominal pain, headaches, vision changes, numbness or tingling. Objective - Vital Signs/Intake and Output Vital Signs (last 24 hours): Temp Pulse Resp BP Pulse Ox 98.7 F 96 H 20 168/99 H 98 06/03/18 23:55 06/03/18 23:55 06/03/18 23:55 06/03/18 23:55 06/03/18 23:55 Intake and Output: 06/04/18 06/04/18 06:59 18:59 Output Total 300 Balance -300 - Medications Medications: Current Medications Acetaminophen/Codeine Phosphate (Tylenol/Codeine 300 Mg/30 Mg) 1 ea PO Q6 PRN PRN Reason: Pain, moderate (4-7) Albuterol (Ventolin Hfa 90 Mcg/Actuation (8 G)) 2 puff IH Q4 PRN PRN Reason: Shortness of Breath Albuterol/Ipratropium (Duoneb 3 Mg/0.5 Mg (3 Ml) Ud) 3 ml INH RQ4 [facility] Last Admin: 06/04/18 03:38 Dose: 3 ml Enoxaparin Sodium (Lovenox) 40 mg SC DAILY [facility] Folic Acid (Folic Acid) 1 mg PO DAILY [facility] Gabapentin (Neurontin) 100 mg PO TID [facility] Guaifenesin (Robitussin) 100 mg PO Q4H PRN PRN Reason: Cough Methylprednisolone (Solu-Medrol) 40 mg IVP Q6 [facility] Last Admin: 06/04/18 05:48 Dose: 40 mg Mirtazapine (Remeron) 30 mg PO HS [facility] Montelukast Sodium (Singulair) 10 mg PO HS [facility] Multivitamins (Hexavitamin) 1 tab PO DAILY [facility] Fluticasone/Salmeterol (Advair Diskus 500/50) 1 puff INH RQ12 [facility] Sertraline HCl (Zoloft) 150 mg PO DAILY [facility] Tamsulosin HCl (Flomax) 0.4 mg PO DAILY [facility] - Labs Labs: 06/03/18 16:04 06/03/18 16:04 - Constitutional Appears: No Acute Distress, Chronically Ill - Eye Exam Eye Exam: Normal appearance. absent: Scleral icterus - ENT Exam ENT Exam: Mucous Membranes Moist - Neck Exam Neck Exam: absent: Lymphadenopathy - Respiratory Exam Respiratory Exam: Decreased Breath Sounds, Rhonchi (throughout b/l), Wheezes ( throughout b/l), NORMAL BREATHING PATTERN. absent: Accessory Muscle Use, Rales , Respiratory Distress Additional comments: Currently receiving duoneb during examination - Cardiovascular Exam Cardiovascular Exam: REGULAR RHYTHM, +S1, +S2 - GI/Abdominal Exam GI & Abdominal Exam: Soft, Normal Bowel Sounds. absent: Distended, Firm, Guarding, Rigid, Tenderness - Extremities Exam Extremities Exam: absent: Calf Tenderness, Pedal Edema - Neurological Exam Neurological Exam: Alert, Awake, CN II-XII Intact, Oriented x3 - Psychiatric Exam Psychiatric exam: Normal Affect, Normal Mood - Skin Skin Exam: Dry, Warm Assessment and Plan - Assessment and Plan (Free Text) Plan: COPD (chronic obstructive pulmonary disease) exacerbation Chest X ray: COPD, no active lung disease Advair 500/50 1puff INH q12h Duonebs 3mL INH q4h Solu Medrol 40mg IVP Q6 hours Montelukast 10mg PO HS Robitussin 100mg PO q4h prn Alcohol use disorder [facility] protocol Thiamine, Multivitamin, Folic Acid PO daily Ativan 1mg IVP q3h prn will continue to monitor hx of Depression denies depression or SI at this time Zoloft 150mg PO daily Remeron 30mg PO HS hx of BPH Flomax 0.4 mg PO daily History of gastric ulcer Protonix 40mg PO daily Chronic Pain/recent rib fx Tylenol prn pain Tylenol #3 1 tab PO Q6 prn severe pain Gabapentin 100mg PO TID Hx of Tobacco Use Nicotine Patch 21mg/24hr TD daily Advised/counseled on smoking cessation Prophylactic Measures Protonix 40mg PO daily Lovenox 40mg SC daily Heart healthy diet All orders and management per Dr. Lisa Chandra Abby PGY2
[2018-06-04] MEDS: Fluticasone-Salmeterol 500-50mcg Diskus INH SCH ×2 (08:02→20:06)
[2018-06-04] MEDS ORDERED: Enoxaparin 150 mg Syringe SC SCH (10:00)
[2018-06-04] MEDS: Multiple Vitamins Tab PO SCH (10:09)
[2018-06-04] MEDS: Enoxaparin 40 mg Syringe SC SCH (10:09)
[2018-06-04] MEDS: Pantoprazole 40 mg EC Tab PO SCH (12:36)
[2018-06-04] MEDS: Acetaminophen-Codeine 300/30 mg Tab PO PRN ×2 (13:26→21:10)
[2018-06-05] MEDS: Albuterol-Ipratrop 3 mg / 0.5 (3 ml) UD INH SCH ×6 (00:09→19:50)
[2018-06-05] MEDS: MethylPREDNISolone 40 mg Vial IVP SCH ×5 (06:20→23:52)
--- NOTE | 2018-06-05 06:50 | HP ---
HISTORY OF PRESENT ILLNESS: The patient was admitted to the hospital with chief complaint of shortness of breath, wheezes, coughing. The patient has severe COPD. The patient in spite of multiple advice to stop smoking. The patient came to the ER, given emergent treatment without improvement, advised admission. PHYSICAL EXAMINATION: GENERAL: The patient is awake, alert, and oriented. VITAL SIGNS: Temperature 98 and pulse 90. HEENT: Within normal limits. NECK: Supple. CHEST: Symmetrical. HEART: Regular. ABDOMEN: Soft. EXTREMITIES: No edema. ASSESSMENT AND PLAN: The patient suffers from exacerbation of chronic obstructive pulmonary disease and bronchitis. The patient to get bed rest and supportive care, bronchodilators. Dino Gonzalez MD
[2018-06-05] MEDS: Fluticasone-Salmeterol 500-50mcg Diskus INH SCH ×2 (08:15→19:50)
--- NOTE | 2018-06-05 09:54 | CP.PCM.PN ---
Subjective - Date & Time of Evaluation Date of Evaluation: 06/05/18 Time of Evaluation: 09:48 - Subjective Subjective: PGY2 Medicine Note for Dr. Gonzalez Patient seen and examined this morning at bedside. No acute events overnight. Patient is resting comfortably in bed. He reports improvement in his breathing. He is tolerating his diet and his pain has been well controlled. He had 2 loose bowel movements yesterday, without black or bloody stool. Denies fevers, cills, nausea, vomiting, chest pain, palpitations, abdominal pain, numbness or tingling. Objective - Vital Signs/Intake and Output Vital Signs (last 24 hours): Temp Pulse Resp BP Pulse Ox 98.0 F 89 20 135/85 98 06/05/18 07:00 06/05/18 07:35 06/05/18 07:00 06/05/18 07:00 06/05/18 08:00 Intake and Output: 06/05/18 06/05/18 06:59 18:59 Output Total 300 Balance -300 - Medications Medications: Current Medications Acetaminophen/Codeine Phosphate (Tylenol/Codeine 300 Mg/30 Mg) 1 ea PO Q6 PRN PRN Reason: Pain, moderate (4-7) Last Admin: 06/04/18 21:10 Dose: 1 ea Albuterol (Ventolin Hfa 90 Mcg/Actuation (8 G)) 2 puff IH Q4 PRN PRN Reason: Shortness of Breath Albuterol/Ipratropium (Duoneb 3 Mg/0.5 Mg (3 Ml) Ud) 3 ml INH RQ4 [facility] Last Admin: 06/05/18 08:15 Dose: 3 ml Enoxaparin Sodium (Lovenox) 40 mg SC DAILY [facility] Last Admin: 06/04/18 10:09 Dose: 40 mg Folic Acid (Folic Acid) 1 mg PO DAILY [facility] Last Admin: 06/04/18 10:09 Dose: 1 mg Gabapentin (Neurontin) 100 mg PO TID [facility] Last Admin: 06/04/18 21:11 Dose: 100 mg Guaifenesin (Robitussin) 100 mg PO Q4H PRN PRN Reason: Cough Lorazepam (Ativan) 1 mg IVP Q3H PRN PRN Reason: Symptoms of alcohol withdrawl Methylprednisolone (Solu-Medrol) 40 mg IVP Q6 [facility] Last Admin: 06/05/18 06:20 Dose: 40 mg Mirtazapine (Remeron) 30 mg PO HS [facility] Last Admin: 06/04/18 21:11 Dose: 30 mg Montelukast Sodium (Singulair) 10 mg PO HS [facility] Last Admin: 06/04/18 21:10 Dose: 10 mg Multivitamins (Hexavitamin) 1 tab PO DAILY [facility] Last Admin: 06/04/18 10:09 Dose: 1 tab Nicotine (Nicoderm Cq) 1 patch TD DAILY [facility] Last Admin: 06/04/18 12:15 Dose: 1 patch Pantoprazole Sodium (Protonix Ec Tab) 40 mg PO DAILY [facility] Last Admin: 06/04/18 12:36 Dose: 40 mg Fluticasone/Salmeterol (Advair Diskus 500/50) 1 puff INH RQ12 [facility] Last Admin: 06/05/18 08:15 Dose: 1 puff Sertraline HCl (Zoloft) 150 mg PO DAILY [facility] Last Admin: 06/04/18 10:14 Dose: 150 mg Tamsulosin HCl (Flomax) 0.4 mg PO DAILY [facility] Last Admin: 06/04/18 10:09 Dose: 0.4 mg - Labs Labs: 06/03/18 16:04 06/03/18 16:04 - Constitutional Appears: Non-toxic, No Acute Distress - Head Exam Head Exam: ATRAUMATIC, NORMOCEPHALIC - Eye Exam Eye Exam: Normal appearance - ENT Exam ENT Exam: Mucous Membranes Moist - Respiratory Exam Respiratory Exam: Chest Wall Tenderness (mild, left sided. ), Wheezes ( throughout; R>L), NORMAL BREATHING PATTERN. absent: Accessory Muscle Use, Rales , Rhonchi, Respiratory Distress - Cardiovascular Exam Cardiovascular Exam: REGULAR RHYTHM, +S1, +S2 - GI/Abdominal Exam GI & Abdominal Exam: Soft. absent: Distended, Firm, Guarding, Rigid, Tenderness - Extremities Exam Extremities Exam: absent: Calf Tenderness, Pedal Edema - Neurological Exam Neurological Exam: Alert, Awake, CN II-XII Intact, Oriented x3 - Psychiatric Exam Psychiatric exam: Normal Affect, Normal Mood - Skin Skin Exam: Dry, Warm Assessment and Plan - Assessment and Plan (Free Text) Plan: COPD (chronic obstructive pulmonary disease) exacerbation (improving) Chest X ray: COPD, no active lung disease Blood Culture: negative at 48 hours Advair 500/50 1puff INH q12h Duonebs 3mL INH q4h Solu Medrol 40mg IVP Q6 hours Montelukast 10mg PO HS Robitussin 100mg PO q4h prn Alcohol use disorder CIWA protocol Thiamine, Multivitamin, Folic Acid PO daily Ativan 1mg IVP q3h prn will continue to monitor hx of Depression denies depression or SI at this time Zoloft 150mg PO daily Remeron 30mg PO HS hx of BPH Flomax 0.4 mg PO daily History of gastric ulcer Protonix 40mg PO daily Chronic Pain/recent rib fx Tylenol prn pain Tylenol #3 1 tab PO Q6 prn severe pain Gabapentin 100mg PO TID Hx of Tobacco Use Nicotine Patch 21mg/24hr TD daily Advised/counseled on smoking cessation Prophylactic Measures Protonix 40mg PO daily Lovenox 40mg SC daily Heart healthy diet All orders and management per Dr. Lisa Chandra Abby PGY2
[2018-06-05] MEDS: Multiple Vitamins Tab PO SCH (10:12)
[2018-06-05] MEDS: Pantoprazole 40 mg EC Tab PO SCH (10:12)
[2018-06-05] MEDS: Enoxaparin 40 mg Syringe SC SCH (10:13)
[2018-06-05] MEDS: Acetaminophen-Codeine 300/30 mg Tab PO PRN ×3 (10:28→21:51)
--- NOTE | 2018-06-05 12:22 | CARD ---
APPROVED REPORT Date of service: 06/03/2018 EKG Measurement Heart [id number] <Conclusion> Normal sinus rhythm with sinus arrhythmia Normal ECG
[2018-06-06] MEDS: Albuterol-Ipratrop 3 mg / 0.5 (3 ml) UD INH SCH ×6 (01:24→19:52)
[2018-06-06] MEDS: MethylPREDNISolone 40 mg Vial IVP SCH ×3 (05:48→21:55)
--- NOTE | 2018-06-06 07:48 | CP.PCM.PN ---
Subjective - Date & Time of Evaluation Date of Evaluation: 06/06/18 Time of Evaluation: 07:48 - Subjective Subjective: Internal Medicine Progress Note - Dr Gonzalez Service Patient seen and examined at bedside. Per nursing no acute events overnight. Patient is doing well, offers no complaints at this time. Shortness of breath has improved. Denies headaches, dizziness, cp, palpitations, abdominal pain, urinary symptoms, changes in bowel habits. Objective - Vital Signs/Intake and Output Vital Signs (last 24 hours): Temp Pulse Resp BP Pulse Ox 97.5 F L 90 20 158/84 H 95 06/05/18 23:31 06/06/18 02:54 06/05/18 23:31 06/05/18 23:31 06/05/18 23:31 - Medications Medications: Current Medications Acetaminophen/Codeine Phosphate (Tylenol/Codeine 300 Mg/30 Mg) 1 ea PO Q6 PRN PRN Reason: Pain, moderate (4-7) Last Admin: 06/05/18 21:51 Dose: 1 ea Albuterol (Ventolin Hfa 90 Mcg/Actuation (8 G)) 2 puff IH Q4 PRN PRN Reason: Shortness of Breath Albuterol/Ipratropium (Duoneb 3 Mg/0.5 Mg (3 Ml) Ud) 3 ml INH RQ4 [facility] Last Admin: 06/06/18 04:28 Dose: Not Given Enoxaparin Sodium (Lovenox) 40 mg SC DAILY [facility] Last Admin: 06/05/18 10:13 Dose: 40 mg Folic Acid (Folic Acid) 1 mg PO DAILY [facility] Last Admin: 06/05/18 10:29 Dose: 1 mg Gabapentin (Neurontin) 100 mg PO TID [facility] Last Admin: 06/05/18 17:50 Dose: 100 mg Guaifenesin (Robitussin) 100 mg PO Q4H PRN PRN Reason: Cough Lorazepam (Ativan) 1 mg IVP Q3H PRN PRN Reason: Symptoms of alcohol withdrawl Methylprednisolone (Solu-Medrol) 40 mg IVP Q6 [facility] Last Admin: 06/06/18 05:48 Dose: 40 mg Mirtazapine (Remeron) 30 mg PO HS [facility] Last Admin: 06/05/18 21:19 Dose: 30 mg Montelukast Sodium (Singulair) 10 mg PO [facility] Last Admin: 06/05/18 21:19 Dose: 10 mg Multivitamins (Hexavitamin) 1 tab PO DAILY [facility] Last Admin: 06/05/18 10:12 Dose: 1 tab Nicotine (Nicoderm Cq) 1 patch TD DAILY [facility] Last Admin: 06/05/18 10:29 Dose: 1 patch Pantoprazole Sodium (Protonix Ec Tab) 40 mg PO DAILY [facility] Last Admin: 06/05/18 10:12 Dose: 40 mg Fluticasone/Salmeterol (Advair Diskus 500/50) 1 puff INH RQ12 [facility] Last Admin: 06/05/18 19:50 Dose: 1 puff Sertraline HCl (Zoloft) 150 mg PO DAILY [facility] Last Admin: 06/05/18 10:13 Dose: 150 mg Tamsulosin HCl (Flomax) 0.4 mg PO DAILY [facility] Last Admin: 06/05/18 10:13 Dose: 0.4 mg - Labs Labs: 06/03/18 16:04 06/03/18 16:04 - Additional Findings Additional findings: - Constitutional Appears: Non-toxic, No Acute Distress - Head Exam Head Exam: ATRAUMATIC, NORMOCEPHALIC - Eye Exam Eye Exam: Normal appearance - ENT Exam ENT Exam: Mucous Membranes Moist - Respiratory Exam Respiratory Exam: Chest Wall Tenderness (mild, left sided. ), Wheezes ( throughout; R>L), NORMAL BREATHING PATTERN. absent: Accessory Muscle Use, Rales , Rhonchi, Respiratory Distress - Cardiovascular Exam Cardiovascular Exam: REGULAR RHYTHM, +S1, +S2 - GI/Abdominal Exam GI & Abdominal Exam: Soft. absent: Distended, Firm, Guarding, Rigid, Tenderness - Extremities Exam Extremities Exam: absent: Calf Tenderness, Pedal Edema - Neurological Exam Neurological Exam: Alert, Awake, CN II-XII Intact, Oriented x3 - Psychiatric Exam Psychiatric exam: Normal Affect, Normal Mood - Skin Skin Exam: Dry, Warm Assessment and Plan - Assessment and Plan (Free Text) Assessment: COPD (chronic obstructive pulmonary disease) exacerbation (improving) -Chest X ray: COPD, no active lung disease -Blood Culture: negative at 48 hours -Advair 500/50 1puff INH q12h -Duonebs 3mL INH q4h -Solu Medrol 40mg IVP Q12 hours -Montelukast 10mg PO HS -Robitussin 100mg PO q4h prn Leukocytosis -WBC 21.2 today, elevated likely 2/2 to steroids -No active signs of infection at this time -Will taper steroids Alcohol use disorder -CIWA protocol -Patient is not requiring PRN Ativan, will discontinue -Thiamine, Multivitamin, Folic Acid PO daily -Will continue to monitor -Alcohol cessation advised Hx of Depression -Denies depression or SI at this time -Zoloft 150mg PO daily -Remeron 30mg PO HS Hx of BPH -Flomax 0.4 mg PO daily History of gastric ulcer -Protonix 40mg PO daily Chronic Pain/recent rib fx -Tylenol prn pain -Tylenol #3 1 tab PO Q6 prn severe pain -Gabapentin 100mg PO TID Hx of Tobacco Use -Nicotine Patch 21mg/24hr TD daily -Advised/counseled on smoking cessation Prophylactic Measures -Protonix 40mg PO daily -Lovenox 40mg SC daily -Heart healthy diet DISPO: Patient is medically cleared for discharge home. Patient to have nebulizer machine delivered to the hospital [facility] Per [employer], patient must arrive to the [facility] by 4pm. All orders and management per Dr. Gonzalez. Lani Baker DO PGY-2
[2018-06-06] MEDS: Fluticasone-Salmeterol 500-50mcg Diskus INH SCH ×2 (07:56→19:51)
[2018-06-06 08:02] LABS: BASO % 0.2 % (0.0-2.0); HEMOGLOBIN 10.9 g/dL (12.0-18.0); LYMPH # 0.7 K/uL (1.0-4.3); LYMPH % 3.2 % (20.0-40.0); MEAN CELL VOLUME 95.9 fL (80.0-94.0); MEAN CORPUSCULAR HEMOGLOBIN 31.6 pg (27.0-31.0); MEAN CORPUSCULAR HGB CONC 32.9 g/dL (33.0-37.0); MEAN PLATELET VOLUME 8.4 fL (7.2-11.7); MONO # 0.4 K/uL (0.0-0.8); MONO % 2.1 % (0.0-10.0); NEUT % 94.5 % (50.0-75.0); PLATELET COUNT 293 K/uL (130-400); RBC 3.44 Mil/uL (4.40-5.90); RED CELL DISTRIBUTION WIDTH 18.5 % (11.5-14.5); WHITE BLOOD COUNT 21.2 K/uL (4.8-10.8)
[2018-06-06 08:20] LABS: ALB/GLOB RATIO 1.5 (1.0-2.1); ALBUMIN 3.8 g/dL (3.5-5.0); ALT/SGPT 32 U/L (21-72); AST/SGOT 25 U/L (17-59); BLOOD UREA NITROGEN 18 mg/dL (9-20); CALCIUM 8.9 mg/dl (8.6-10.4); GFR AFRICAN-AMERICAN > 60; GFR NON-AFRICAN AMERICAN > 60
[2018-06-06] MEDS: Acetaminophen-Codeine 300/30 mg Tab PO PRN ×3 (08:51→22:54)
[2018-06-06 09:58] LABS: ANISOCYTOSIS MODERATE; BANDS 2 % (0-2); LYMPHOCYTE 3 % (20-40); MONOCYTE 2 % (0-10); NEUTROPHIL 93 % (50-75); PLATELET ESTIMATE NORMAL (NORMAL); TOTAL CELLS COUNTED 100
[2018-06-06 09:59] LABS: STOMATOCYTES SLIGHT
[2018-06-06] MEDS: Multiple Vitamins Tab PO SCH (10:44)
[2018-06-06] MEDS: Enoxaparin 40 mg Syringe SC SCH (10:45)
[2018-06-06] MEDS: Pantoprazole 40 mg EC Tab PO SCH (10:45)
[2018-06-07] MEDS: Albuterol-Ipratrop 3 mg / 0.5 (3 ml) UD INH SCH ×3 (00:01→07:45)
[2018-06-07 00:33] VITALS: O2SAT 99
[2018-06-07] MEDS: Fluticasone-Salmeterol 500-50mcg Diskus INH SCH (07:45)
[2018-06-07 08:12] VITALS: BP 149/89; PULSE 87; TEMP 97.9
[2018-06-07] MEDS: MethylPREDNISolone 40 mg Vial IVP SCH (09:17)
[2018-06-07] MEDS: Multiple Vitamins Tab PO SCH (09:17)
[2018-06-07] MEDS: Enoxaparin 40 mg Syringe SC SCH (09:17)
[2018-06-07] MEDS: Pantoprazole 40 mg EC Tab PO SCH (09:18)
[2018-06-07] MEDS: Acetaminophen-Codeine 300/30 mg Tab PO PRN (09:38)
== END 2018-06-07 11:10 | disposition home or self-care (01) | DRG 88 ==
LOC: C.ER 14:58 → INTOOBSV 16:58 → OBSVTOIN 16:58 → C.9E 16:58 → C.5S 19:15 → C.6T 19:35 → C.5S 19:50 → OBSVTOIN 06-05 18:24
PROVIDERS: ADMIT Internal Medicine Pulmonary Disease; ATTEND Internal Medicine Pulmonary Disease
DX: J44.1 Chronic obstructive pulmonary disease with (acute) exacerbation (principal); F11.90 Opioid use, unspecified, uncomplicated; I10 Essential (primary) hypertension; F17.210 Nicotine dependence, cigarettes, uncomplicated; D72.829 Elevated white blood cell count, unspecified; G89.29 Other chronic pain; N40.0 Benign prostatic hyperplasia without lower urinary tract symptoms; F10.120 Alcohol abuse with intoxication, uncomplicated; Y90.6 Blood alcohol level of 120-199 mg/100 ml

== ENCOUNTER 2018-06-12 16:13 | Inpatient (IN) | payer MEDICAID ==
[2018-06-12 16:24] VITALS: BMI 18.0
[2018-06-12] MEDS ORDERED: Albuterol-Ipratrop 3 mg / 0.5 (3 ml) UD INH STA (16:43)
[2018-06-12] MEDS ORDERED: Azithromycin 500 MG in Sodium Chloride 0.9% 250 ML IVPB STA (16:44)
--- NOTE | 2018-06-12 16:56 | C.PDOC ---
History Of Present Illness 58yo male, with history of COPD, comes to ER with complaints of shortness of breath x 3 days, similar to previous episodes of COPD exacerbation. Patient reports he has been using his home medications with no relief of symptoms. Otherwise, he denies any fever, chills, chest pain, weakness and offers no other complaints. Time Seen by Provider: 06/12/18 16:17 Chief Complaint (Nursing): Shortness Of Breath History Per: Patient History/Exam Limitations: no limitations Onset/Duration Of Symptoms: Days Current Symptoms Are (Timing): Still Present Current Respiratory Medications: See Home Med List Associated Symptoms: denies: Fever, Chills, Sweating, Chest Pain, Bloody Cough, Productive Cough, Heart Racing, Leg/Calf Pain, Ankle/Leg Swelling, Dizziness, Light-headedness Additional History Per: Patient Past Medical History Reviewed: Historical Data, Nursing Documentation, Vital Signs Vital Signs: Last Vital Signs Temp 98.6 F 06/12/18 19:27 Pulse 101 H 06/12/18 19:27 Resp 22 06/12/18 19:27 BP 167/77 H 06/12/18 19:27 Pulse Ox 93 L 06/12/18 19:27 - Medical History PMH: Anxiety, Asthma, Bronchitis, COPD, Depression, Gastrointestinal Ulcer, HTN , Pneumonia Denies: Diabetes, Hepatitis, HIV, Chronic Kidney Disease, Seizures, Sexually Transmitted Disease Surgical History: Appendectomy, Tonsillectomy - [facility] Procedures CONTR ABD ARTERIOGRM NEC (05/20/07) DETOXIFICATION SERVICES FOR SUBSTANCE ABUSE TREATMENT (05/05/18) ESOPHAGOGASTRODUODENOSCOPY [EGD] W/CLOSED BIOPSY (05/20/07) EXCISION OF LOWER ESOPHAGUS, ENDO, DIAGN (05/21/17) EXTIRPATION OF MATTER FROM LOWER ESOPHAGUS, ENDO (05/21/17) GROUP SHAFTING WORKER FOR SUBSTANCE ABUSE TREATMENT, PSYCHOEDUCATION (05/05/18) GROUP SHAFTING WORKER FOR SUBSTANCE ABUSE, COGNITIVE BEHAVIORAL (05/05/18) GROUP PSYCHOTHERAPY (05/05/18) INDIV SHAFTING WORKER FOR SUBSTANCE ABUSE TREATMENT, PSYCHOEDUCATION (01/14/17) INDIV SHAFTING WORKER FOR SUBSTANCE ABUSE, COGNITIVE BEHAVIORAL (01/14/17) INDIV PSYCHOTHERAPY FOR SUBSTANCE ABUSE TREATMENT, SUPPORT (05/05/18) INDIV PSYCHOTHERAPY FOR SUBSTANCE ABUSE, COGNITIV BEHAVIORAL (05/05/18) INDIV PSYCHOTHERAPY FOR SUBSTANCE ABUSE, PSYCHOEDUCATION (05/05/18) INDIVIDUAL PSYCHOTHERAPY, COGNITIVE-BEHAVIORAL (05/05/18) INDIVIDUAL PSYCHOTHERAPY, SUPPORTIVE (05/05/18) INJECT/INFUSE NEC (03/20/12) MEDICATION MANAGEMENT (03/12/17) MEDS MGMT FOR SUBSTANCE ABUSE TREATMENT, OTH REPL MED (03/12/17) Family History: States: Unknown Family Hx - Social History Hx Tobacco Use: Yes Hx Alcohol Use: Yes Hx Substance Use: Yes - Immunization History Hx Tetanus Toxoid Vaccination: Yes Hx Influenza Vaccination: Yes Hx Pneumococcal Vaccination: Yes Review Of Systems Except As Marked, All Systems Reviewed And Found Negative. Constitutional: Negative for: Fever, Chills Cardiovascular: Negative for: Chest Pain Respiratory: Positive for: Shortness of Breath Gastrointestinal: Negative for: Vomiting Neurological: Negative for: Weakness Physical Exam - Physical Exam Appears: Non-toxic Skin: Normal Color Head: Normacephalic Eye(s): bilateral: Normal Inspection Neck: Supple Chest: Symmetrical Cardiovascular: Rhythm Regular Respiratory: Wheezing (mild expiratory wheeze) Extremity: Normal ROM, No Pedal Edema Neurological/Psych: Oriented x3 ED Course And Treatment - Laboratory Results Result Diagrams: 06/12/18 17:13 06/12/18 17:13 ECG: Interpreted By Me, Viewed By Me ECG Rhythm: Sinus Rhythm, Nonspecific Changes (T-wave) Interpretation Of ECG: Normal interval, normal axis Rate From EC O2 Sat by Pulse Oximetry: 94 (RA) Medical Decision Making Medical Decision Making: Impression: Shortness of Breath Plan: -- Labs -- EKG -- CXR -- Duoneb 3ml INH -- Solumedrol 125mg IVP -- Rocephin 1gm IV -- Zithromax 500mg IV Time: [address] Matute and patient to be admitted under his service due to COPD exacerbation Disposition Discussed With : Dino Matute Doctor Will See Patient In The: Hospital Counseled Patient/Family Regarding: Studies Performed, Diagnosis - Disposition Disposition: HOSPITALIZED Disposition Time: 18:45 Condition: FAIR - Clinical Impression Clinical Impression: COPD (chronic obstructive pulmonary disease) - Scribe Statement The provider has reviewed the documentation as recorded by the Radha Machuca Provider Attestation: All medical record entries made by the Scribe were at my direction and personally dictated by me. I have reviewed the chart and agree that the record accurately reflects my personal performance of the history, physical exam, medical decision making, and the department course for this patient. I have also personally directed, reviewed, and agree with the discharge instructions and disposition.
[2018-06-12] MEDS ORDERED: Albuterol-Ipratrop 3 mg / 0.5 (3 ml) UD ONE (17:09)
[2018-06-12] MEDS ORDERED: cefTRIAXone IV 1 gm in Dextros 50 ML IVPB ONE (17:09)
[2018-06-12 17:16] LABS: BASO % 0.3 % (0.0-2.0); EOS # 0.1 K/uL (0.0-0.7); EOS % 0.6 % (0.0-4.0); HEMOGLOBIN 11.6 g/dL (12.0-18.0); LYMPH # 1.2 K/uL (1.0-4.3); MEAN CELL VOLUME 93.7 fL (80.0-94.0); MEAN CORPUSCULAR HEMOGLOBIN 31.5 pg (27.0-31.0); MEAN CORPUSCULAR HGB CONC 33.6 g/dL (33.0-37.0); MEAN PLATELET VOLUME 7.7 fL (7.2-11.7); MONO # 0.5 K/uL (0.0-0.8); MONO % 4.2 % (0.0-10.0); NEUT # 10.3 K/uL (1.8-7.0); NEUT % 84.9 % (50.0-75.0); RBC 3.67 Mil/uL (4.40-5.90); RED CELL DISTRIBUTION WIDTH 18.1 % (11.5-14.5); WHITE BLOOD COUNT 12.1 K/uL (4.8-10.8)
--- NOTE | 2018-06-12 17:16 | RAD ---
Date of service: 06/12/2018 PROCEDURE: CHEST RADIOGRAPH, 1 VIEW HISTORY: SOB COMPARISON: 06/03/2018. FINDINGS: LUNGS: The lungs are well inflated and clear. PLEURA: No pneumothorax or pleural fluid seen. CARDIOVASCULAR: Normal. OSSEOUS STRUCTURES: No significant abnormalities. VISUALIZED UPPER ABDOMEN: Normal. OTHER FINDINGS: None. IMPRESSION: No active pulmonary disease.
[2018-06-12 17:41] LABS: ALB/GLOB RATIO 1.3 (1.0-2.1); ALBUMIN 3.3 g/dL (3.5-5.0); ALT/SGPT 35 U/L (21-72); AST/SGOT 27 U/L (17-59); BLOOD UREA NITROGEN 12 mg/dL (9-20); GFR AFRICAN-AMERICAN > 60; GFR NON-AFRICAN AMERICAN > 60
[2018-06-12 17:43] LABS: B-TYPE NATRIURETIC PEPTIDE 162 pg/mL (0-900)
[2018-06-12] MEDS: guaiFENesin 200 mg/10 ml Syrup UD PO PRN (22:07)
[2018-06-13] MEDS: Albuterol-Ipratrop 3 mg / 0.5 (3 ml) UD INH SCH ×6 (00:12→20:41)
[2018-06-13] MEDS: guaiFENesin 200 mg/10 ml Syrup UD PO PRN ×4 (06:08→23:37)
[2018-06-13] MEDS: Fluticasone-Salmeterol 500-50mcg Diskus INH SCH ×2 (07:26→20:41)
--- NOTE | 2018-06-13 07:39 | CP.PCM.PN ---
Subjective - Date & Time of Evaluation Date of Evaluation: 06/13/18 Time of Evaluation: 07:38 - Subjective Subjective: PGY-[address] Gonzalez's Service Patient seen and examined at bedside. Patient reports an improvement in shortness of breath. He still reports some wheezing and productive phlegm production. Patient denies any chest pain, chills, nausea, vomiting, or any other complaints. Objective - Vital Signs/Intake and Output Vital Signs (last 24 hours): Temp Pulse Resp BP Pulse Ox 97.2 F L 76 20 160/81 H 97 06/12/18 23:28 06/13/18 07:28 06/12/18 23:28 06/12/18 23:28 06/13/18 06:45 Intake and Output: 06/13/18 06/13/18 06:59 18:59 Intake Total 260 Balance 260 - Medications Medications: Current Medications Albuterol/Ipratropium (Duoneb 3 Mg/0.5 Mg (3 Ml) Ud) 3 ml INH RQ4 [facility] Last Admin: 06/13/18 07:11 Dose: 3 ml Enoxaparin Sodium (Lovenox) 40 mg SC DAILY [facility] Folic Acid (Folic Acid) 1 mg PO DAILY [facility] Gabapentin (Neurontin) 100 mg PO TID [facility] Guaifenesin (Robitussin) 200 mg PO Q4H PRN PRN Reason: Cough and congestion Last Admin: 06/13/18 06:08 Dose: 200 mg Methylprednisolone (Solu-Medrol) 40 mg IV Q6H [facility] Last Admin: 06/13/18 06:04 Dose: 40 mg Mirtazapine (Remeron) 30 mg PO HS [facility] Last Admin: 06/12/18 22:07 Dose: 30 mg Montelukast Sodium (Singulair) 10 mg PO HS [facility] Last Admin: 06/12/18 22:07 Dose: 10 mg Multivitamins/Minerals (Therapeutic-M Tab) 1 tab PO 0800 [facility] Fluticasone/Salmeterol (Advair Diskus 500/50) 1 puff INH RQ12 [facility] Last Admin: 06/13/18 07:26 Dose: 1 puff Sertraline HCl (Zoloft) 150 mg PO DAILY [facility] Tamsulosin HCl (Flomax) 0.4 mg PO DAILY [facility] Zolpidem Tartrate (Ambien) 5 mg PO HS PRN PRN Reason: Insomnia - Labs Labs: 06/12/18 17:13 06/12/18 17:13 - Head Exam Head Exam: ATRAUMATIC, NORMAL INSPECTION, NORMOCEPHALIC - Eye Exam Eye Exam: EOMI, Normal appearance, PERRL Pupil Exam: NORMAL ACCOMODATION - ENT Exam ENT Exam: Mucous Membranes Moist, Normal Exam - Respiratory Exam Respiratory Exam: absent: Chest Wall Tenderness, Prolonged Expiratory Phase, Respiratory Distress - Cardiovascular Exam Cardiovascular Exam: REGULAR RHYTHM, +S1, +S2 - GI/Abdominal Exam GI & Abdominal Exam: Soft, Normal Bowel Sounds - Neurological Exam Neurological Exam: Alert, Awake, CN II-XII Intact, Normal Gait, Oriented x3 - Psychiatric Exam Psychiatric exam: Normal Affect, Normal Mood - Skin Skin Exam: Dry, Normal Color Assessment and Plan - Assessment and Plan (Free Text) Plan: COPD (chronic obstructive pulmonary disease) exacerbation (improving) -Chest X ray: COPD, no active lung disease -Blood Culture: negative at 48 hours -Advair 500/50 1puff INH q12h -Duonebs 3mL INH q4h -Solu Medrol 40mg IVP Q12 hours -Montelukast 10mg PO HS -Robitussin 100mg PO q4h prn Leukocytosis -WBC 11.9 today, trending down. -No active signs of infection at this time -Will taper steroids Alcohol use disorder -CIWA protocol -Patient is not requiring PRN Ativan, will discontinue -Thiamine, Multivitamin, Folic Acid PO daily -Will continue to monitor -Alcohol cessation advised Hx of Depression -Denies depression or SI at this time -Zoloft 150mg PO daily -Remeron 30mg PO HS Hx of BPH -Flomax 0.4 mg PO daily History of gastric ulcer -Protonix 40mg PO daily Chronic Pain/recent rib fx -Tylenol prn pain -Gabapentin 100mg PO TID Hx of Tobacco Use -Nicotine Patch 21mg/24hr TD daily -Advised/counseled on smoking cessation Prophylactic Measures -Protonix 40mg PO daily -Lovenox 40mg SC daily -Heart healthy diet Juan Miguel Jaramillo DO PGY-2
[2018-06-13] MEDS: Multivitamin With Minerals Tab PO SCH (08:30)
[2018-06-13] MEDS: Enoxaparin 40 mg Syringe SC SCH (09:46)
[2018-06-13 11:16] LABS: BASO % 0.3 % (0.0-2.0); HEMOGLOBIN 12.9 g/dL (12.0-18.0); LYMPH # 0.6 K/uL (1.0-4.3); MEAN CELL VOLUME 95.5 fL (80.0-94.0); MEAN CORPUSCULAR HEMOGLOBIN 32.1 pg (27.0-31.0); MEAN CORPUSCULAR HGB CONC 33.6 g/dL (33.0-37.0); MEAN PLATELET VOLUME 8.7 fL (7.2-11.7); MONO # 0.3 K/uL (0.0-0.8); MONO % 2.2 % (0.0-10.0); NEUT % 92.5 % (50.0-75.0); PLATELET COUNT 351 K/uL (130-400); RBC 4.03 Mil/uL (4.40-5.90); RED CELL DISTRIBUTION WIDTH 17.6 % (11.5-14.5); WHITE BLOOD COUNT 11.9 K/uL (4.8-10.8)
[2018-06-13 11:42] LABS: LYMPHOCYTE 4 % (20-40); MONOCYTE 1 % (0-10); NEUTROPHIL 95 % (50-75); TOTAL CELLS COUNTED 100
[2018-06-13 11:43] LABS: PLATELET ESTIMATE NORMAL (NORMAL)
[2018-06-13 11:44] LABS: ANISOCYTOSIS SLIGHT
--- NOTE | 2018-06-13 17:53 | CARD ---
APPROVED REPORT Date of service: 06/12/2018 EKG Measurement Heart [id number] <Conclusion> Sinus rhythm with premature supraventricular complexes Otherwise normal ECG
[2018-06-14] MEDS: Albuterol-Ipratrop 3 mg / 0.5 (3 ml) UD INH SCH ×6 (03:30→20:20)
[2018-06-14 06:47] LABS: BASO % 0.1 % (0.0-2.0); HEMOGLOBIN 10.8 g/dL (12.0-18.0); LYMPH # 0.5 K/uL (1.0-4.3); LYMPH % 3.1 % (20.0-40.0); MEAN CELL VOLUME 95.6 fL (80.0-94.0); MEAN CORPUSCULAR HEMOGLOBIN 31.7 pg (27.0-31.0); MEAN CORPUSCULAR HGB CONC 33.1 g/dL (33.0-37.0); MEAN PLATELET VOLUME 8.3 fL (7.2-11.7); MONO # 0.3 K/uL (0.0-0.8); NEUT # 16.1 K/uL (1.8-7.0); NEUT % 94.8 % (50.0-75.0); PLATELET COUNT 279 K/uL (130-400); RED CELL DISTRIBUTION WIDTH 18.1 % (11.5-14.5)
[2018-06-14 06:59] LABS: ALB/GLOB RATIO 1.3 (1.0-2.1); ALBUMIN 3.1 g/dL (3.5-5.0); ALT/SGPT 32 U/L (21-72); AST/SGOT 24 U/L (17-59); BLOOD UREA NITROGEN 17 mg/dL (9-20); CALCIUM 8.5 mg/dl (8.6-10.4); GFR AFRICAN-AMERICAN > 60; GFR NON-AFRICAN AMERICAN > 60
[2018-06-14] MEDS: Fluticasone-Salmeterol 500-50mcg Diskus INH SCH ×2 (08:26→20:21)
[2018-06-14] MEDS: Multivitamin With Minerals Tab PO SCH (08:30)
[2018-06-14] MEDS: Enoxaparin 40 mg Syringe SC SCH (09:35)
[2018-06-14 09:39] LABS: ANISOCYTOSIS SLIGHT; LYMPHOCYTE 2 % (20-40); MONOCYTE 2 % (0-10); NEUTROPHIL 96 % (50-75); PLATELET ESTIMATE NORMAL (NORMAL); TOTAL CELLS COUNTED 100
[2018-06-14 09:40] LABS: MICROCYTOSIS SLIGHT; OVALOCYTES SLIGHT
[2018-06-14] MEDS: guaiFENesin 200 mg/10 ml Syrup UD PO PRN ×4 (09:45→22:49)
[2018-06-14 14:09] LABS: BASO % 0.1 % (0.0-2.0); EOS % 0.1 % (0.0-4.0); HEMOGLOBIN 10.3 g/dL (12.0-18.0); LYMPH # 0.4 K/uL (1.0-4.3); LYMPH % 2.9 % (20.0-40.0); MEAN CELL VOLUME 96.4 fL (80.0-94.0); MEAN CORPUSCULAR HEMOGLOBIN 32.6 pg (27.0-31.0); MEAN CORPUSCULAR HGB CONC 33.8 g/dL (33.0-37.0); MEAN PLATELET VOLUME 8.2 fL (7.2-11.7); MONO # 0.5 K/uL (0.0-0.8); MONO % 3.2 % (0.0-10.0); NEUT # 14.4 K/uL (1.8-7.0); NEUT % 93.7 % (50.0-75.0); PLATELET COUNT 241 K/uL (130-400); RBC 3.16 Mil/uL (4.40-5.90); RED CELL DISTRIBUTION WIDTH 18.3 % (11.5-14.5); WHITE BLOOD COUNT 15.3 K/uL (4.8-10.8)
[2018-06-14 14:28] LABS: ANISOCYTOSIS MODERATE; LYMPHOCYTE 5 % (20-40); MONOCYTE 4 % (0-10); NEUTROPHIL 91 % (50-75); PLATELET ESTIMATE NORMAL (NORMAL); TOTAL CELLS COUNTED 100
[2018-06-14 16:36] VITALS: RESP 20
[2018-06-15] MEDS: Albuterol-Ipratrop 3 mg / 0.5 (3 ml) UD INH SCH ×6 (00:58→19:29)
[2018-06-15 07:00] LABS: HEMOGLOBIN 10.5 g/dL (12.0-18.0); LYMPH # 0.5 K/uL (1.0-4.3); LYMPH % 3.8 % (20.0-40.0); MEAN CELL VOLUME 95.5 fL (80.0-94.0); MEAN CORPUSCULAR HEMOGLOBIN 31.8 pg (27.0-31.0); MEAN CORPUSCULAR HGB CONC 33.3 g/dL (33.0-37.0); MEAN PLATELET VOLUME 7.9 fL (7.2-11.7); MONO # 0.3 K/uL (0.0-0.8); MONO % 2.4 % (0.0-10.0); NEUT # 12.6 K/uL (1.8-7.0); NEUT % 93.8 % (50.0-75.0); PLATELET COUNT 242 K/uL (130-400); RBC 3.29 Mil/uL (4.40-5.90); RED CELL DISTRIBUTION WIDTH 18.3 % (11.5-14.5); WHITE BLOOD COUNT 13.5 K/uL (4.8-10.8)
[2018-06-15 07:12] LABS: ALB/GLOB RATIO 1.2 (1.0-2.1); ALT/SGPT 42 U/L (21-72); AST/SGOT 32 U/L (17-59); BLOOD UREA NITROGEN 15 mg/dL (9-20); CALCIUM 8.4 mg/dl (8.6-10.4); GFR AFRICAN-AMERICAN > 60; GFR NON-AFRICAN AMERICAN > 60
[2018-06-15] MEDS: Fluticasone-Salmeterol 500-50mcg Diskus INH SCH ×2 (08:15→19:29)
[2018-06-15] MEDS: Multivitamin With Minerals Tab PO SCH (08:19)
[2018-06-15 08:45] LABS: LYMPHOCYTE 5 % (20-40); MONOCYTE 3 % (0-10); NEUTROPHIL 92 % (50-75); TOTAL CELLS COUNTED 100
[2018-06-15 08:46] LABS: ANISOCYTOSIS SLIGHT; MICROCYTOSIS SLIGHT; POIKILOCYTOSIS SLIGHT
[2018-06-15 08:47] LABS: OVALOCYTES SLIGHT
[2018-06-15] MEDS: guaiFENesin 200 mg/10 ml Syrup UD PO PRN ×3 (09:26→18:29)
[2018-06-15] MEDS: Enoxaparin 40 mg Syringe SC SCH (09:26)
[2018-06-15 09:47] LABS: PLATELET ESTIMATE NORMAL (NORMAL)
[2018-06-16] MEDS: Albuterol-Ipratrop 3 mg / 0.5 (3 ml) UD INH SCH ×7 (00:23→23:55)
[2018-06-16] MEDS: guaiFENesin 200 mg/10 ml Syrup UD PO PRN ×3 (06:44→21:37)
--- NOTE | 2018-06-16 07:10 | CP.PCM.PN ---
Subjective - Date & Time of Evaluation Date of Evaluation: 06/16/18 Time of Evaluation: 07:09 - Subjective Subjective: PGY2 Medicine Note for Dr. Gonzalez Patient seen and examined this morning at bedside. No acute events overnight. Patient reports that his breathing is improving be he still feels "tight". He is tolerating his diet and currently has no complaints at this time. Denies fevers, chills, nausea, vomiting, diarrhea, constipation, chest pain, palpitations, abdominal pain, headaches, numbness or tingling. Objective - Vital Signs/Intake and Output Vital Signs (last 24 hours): Temp Pulse Resp BP Pulse Ox 97.9 F 83 20 145/71 98 06/16/18 00:00 06/16/18 00:00 06/16/18 00:00 06/16/18 00:00 06/16/18 00:00 Intake and Output: 06/16/18 06/16/18 06:59 18:59 Intake Total 1000 Balance 1000 - Medications Medications: Current Medications Albuterol/Ipratropium (Duoneb 3 Mg/0.5 Mg (3 Ml) Ud) 3 ml INH RQ4 [facility] Last Admin: 06/16/18 03:42 Dose: Not Given Enoxaparin Sodium (Lovenox) 40 mg SC DAILY [facility] Last Admin: 06/15/18 09:26 Dose: 40 mg Folic Acid (Folic Acid) 1 mg PO DAILY [facility] Last Admin: 06/15/18 09:25 Dose: 1 mg Gabapentin (Neurontin) 100 mg PO TID [facility] Last Admin: 06/15/18 18:11 Dose: 100 mg Guaifenesin (Robitussin) 200 mg PO Q4H PRN PRN Reason: Cough and congestion Last Admin: 06/16/18 06:44 Dose: 200 mg Methylprednisolone (Solu-Medrol) 40 mg IV Q6H [facility] Last Admin: 06/16/18 05:33 Dose: 40 mg Mirtazapine (Remeron) 30 mg PO HS [facility] Last Admin: 06/15/18 21:57 Dose: 30 mg Montelukast Sodium (Singulair) 10 mg PO HS [facility] Last Admin: 06/15/18 21:57 Dose: 10 mg Multivitamins/Minerals (Therapeutic-M Tab) 1 tab PO 0800 [facility] Last Admin: 06/15/18 08:19 Dose: 1 tab Fluticasone/Salmeterol (Advair Diskus 500/50) 1 puff INH RQ12 [facility] Last Admin: 06/15/18 19:29 Dose: 1 puff Sertraline HCl (Zoloft) 150 mg PO DAILY [facility] Last Admin: 06/15/18 09:25 Dose: 150 mg Tamsulosin HCl (Flomax) 0.4 mg PO DAILY [facility] Last Admin: 06/15/18 09:25 Dose: 0.4 mg Zolpidem Tartrate (Ambien) 5 mg PO HS PRN PRN Reason: Insomnia - Labs Labs: 06/15/18 06:56 06/15/18 06:56 - Constitutional Appears: Non-toxic, No Acute Distress - Head Exam Head Exam: NORMOCEPHALIC - Eye Exam Eye Exam: Normal appearance - ENT Exam ENT Exam: Mucous Membranes Moist - Neck Exam Neck Exam: absent: Lymphadenopathy - Respiratory Exam Respiratory Exam: Wheezes (mild throughout b/l), NORMAL BREATHING PATTERN. absent: Accessory Muscle Use, Rales, Rhonchi, Respiratory Distress - Cardiovascular Exam Cardiovascular Exam: REGULAR RHYTHM, +S1, +S2 - GI/Abdominal Exam GI & Abdominal Exam: Soft, Normal Bowel Sounds. absent: Distended, Firm, Guarding, Rigid, Tenderness - Extremities Exam Extremities Exam: absent: Calf Tenderness, Pedal Edema - Neurological Exam Neurological Exam: Alert, Awake, Oriented x3 - Psychiatric Exam Psychiatric exam: Normal Affect, Normal Mood - Skin Skin Exam: Dry, Warm Assessment and Plan - Assessment and Plan (Free Text) Plan: COPD (chronic obstructive pulmonary disease) exacerbation (improving) -Chest X ray: COPD, no active lung disease -Blood Culture: negative at 3 days -Advair 500/50 1puff INH q12h -Duonebs 3mL INH q4h -Solu Medrol 40mg IVP Q12 hours -Montelukast 10mg PO HS -Robitussin 200mg PO q4h prn Leukocytosis -WBC 14.1 -No active signs of infection at this time, likely 2/2 steroids -Will taper steroids Alcohol use disorder -[facility] protocol -Thiamine, Multivitamin, Folic Acid PO daily -Will continue to monitor -Alcohol cessation advised Hx of Depression -Denies depression or SI at this time -Zoloft 150mg PO daily -Remeron 30mg PO HS -Ambien 5mg PO HS prn Hx of BPH -Flomax 0.4 mg PO daily History of gastric ulcer -Protonix 40mg PO daily Chronic Pain/recent rib fx -Gabapentin 100mg PO TID Hx of Tobacco Use -Nicotine Patch 21mg/24hr TD daily -Advised/counseled on smoking cessation Prophylactic Measures -Protonix 40mg PO daily -Lovenox 40mg SC daily -Heart healthy diet DISPO: Patient still wheezing at this time, will monitor for one more night and hopefully discharge in the AM. Case discussed and all medical management per Dr. Gonzalez
[2018-06-16] MEDS: Fluticasone-Salmeterol 500-50mcg Diskus INH SCH ×2 (07:39→19:06)
[2018-06-16 08:10] LABS: BASO % 0.1 % (0.0-2.0); HEMOGLOBIN 11.5 g/dL (12.0-18.0); LYMPH # 0.5 K/uL (1.0-4.3); LYMPH % 3.4 % (20.0-40.0); MEAN CELL VOLUME 95.2 fL (80.0-94.0); MEAN CORPUSCULAR HEMOGLOBIN 31.5 pg (27.0-31.0); MEAN CORPUSCULAR HGB CONC 33.1 g/dL (33.0-37.0); MEAN PLATELET VOLUME 7.8 fL (7.2-11.7); MONO # 0.3 K/uL (0.0-0.8); MONO % 2.2 % (0.0-10.0); NEUT # 13.3 K/uL (1.8-7.0); NEUT % 94.3 % (50.0-75.0); PLATELET COUNT 274 K/uL (130-400); RBC 3.64 Mil/uL (4.40-5.90); RED CELL DISTRIBUTION WIDTH 18.3 % (11.5-14.5); WHITE BLOOD COUNT 14.1 K/uL (4.8-10.8)
[2018-06-16] MEDS: Multivitamin With Minerals Tab PO SCH (08:28)
[2018-06-16 08:31] LABS: ALB/GLOB RATIO 1.5 (1.0-2.1); ALBUMIN 3.6 g/dL (3.5-5.0); ALT/SGPT 49 U/L (21-72); AST/SGOT 35 U/L (17-59); BLOOD UREA NITROGEN 19 mg/dL (9-20); CALCIUM 8.9 mg/dl (8.6-10.4); GFR AFRICAN-AMERICAN > 60; GFR NON-AFRICAN AMERICAN > 60
[2018-06-16 08:35] LABS: LYMPHOCYTE 3 % (20-40); MONOCYTE 2 % (0-10); NEUTROPHIL 95 % (50-75); PLATELET ESTIMATE NORMAL (NORMAL); TOTAL CELLS COUNTED 100
[2018-06-16 08:36] LABS: ANISOCYTOSIS SLIGHT; HYPOCHROMIC SLIGHT; OVALOCYTES SLIGHT; POIKILOCYTOSIS SLIGHT; TARGET CELLS SLIGHT; TEARDROP CELLS SLIGHT
[2018-06-16] MEDS: Enoxaparin 40 mg Syringe SC SCH (10:21)
--- NOTE | 2018-06-16 11:42 | PN ---
DATE: 06/14/2018 The patient is having shortness of breath, wheezes. At this time, bronchodilator, supportive care. Dino Gonzalez MD
--- NOTE | 2018-06-16 11:46 | HP ---
HISTORY OF PRESENT ILLNESS: The patient was admitted to the hospital with a chief complaint of shortness of breath, weakness, fatigue, tiredness, severe COPD. Heavy smoker. Still smoking despite multiple times advised to stop smoking. The patient is homeless and living in alf. PHYSICAL EXAMINATION: GENERAL: The patient is awake, alert, and oriented. VITAL SIGNS: Temperature 98, pulse 90. HEENT: Within normal limits. NECK: Supple. CHEST: Symmetrical. HEART: Regular. ABDOMEN: Soft. EXTREMITIES: No edema. ASSESSMENT AND PLAN: The patient suffers from exacerbation of chronic obstructive pulmonary disease and bronchitis. The patient is to get bed rest. Supportive care. Bronchodilator. Smoking cessation. Dino Gonzalez MD
[2018-06-16] MEDS: MethylPREDNISolone 40 mg Vial IV SCH (16:16)
[2018-06-17] MEDS: Albuterol-Ipratrop 3 mg / 0.5 (3 ml) UD INH SCH ×2 (03:18→07:22)
[2018-06-17] MEDS: MethylPREDNISolone 40 mg Vial IV SCH (04:10)
[2018-06-17] MEDS: guaiFENesin 200 mg/10 ml Syrup UD PO PRN (04:29)
[2018-06-17] MEDS: Fluticasone-Salmeterol 500-50mcg Diskus INH SCH (07:22)
[2018-06-17 07:58] VITALS: BP 130/81; PULSE 99; TEMP 98.7; O2SAT 96
[2018-06-17] MEDS: Multivitamin With Minerals Tab PO SCH (08:55)
--- NOTE | 2018-06-17 16:20 | CP.PCM.PN ---
Subjective - Date & Time of Evaluation Date of Evaluation: 06/17/18 Time of Evaluation: 07:40 - Subjective Subjective: PGY2 Medicine Note for Dr. Gonzalez Patient seen and examined this morning. No acute events overnight. Patient is scheduled for discharged this morning at 8am. Patient is feeling well and has no complaints at this time. He is walking around his room, packing his stuff stating his breathing is improved. Denies fevers, chills, nausea, vomiting, diarrhea, constipation, chest pain, shortness of breath, palpitations, abdominal pain, numbness, tingling or weakness. Objective - Vital Signs/Intake and Output Vital Signs (last 24 hours): Temp Pulse Resp BP Pulse Ox 98.7 F 99 H 20 130/81 96 06/17/18 07:57 06/17/18 07:57 06/17/18 07:57 06/17/18 07:57 06/17/18 07:57 Intake and Output: 06/17/18 06/17/18 06:59 18:59 Intake Total 160 Balance 160 - Labs Labs: 06/16/18 07:57 06/16/18 07:57 - Constitutional Appears: Non-toxic, No Acute Distress - Head Exam Head Exam: NORMOCEPHALIC - Eye Exam Eye Exam: Normal appearance - ENT Exam ENT Exam: Mucous Membranes Moist - Neck Exam Neck Exam: absent: Lymphadenopathy - Respiratory Exam Respiratory Exam: Clear to Ausculation Bilateral, NORMAL BREATHING PATTERN. absent: Accessory Muscle Use, Rales, Rhonchi, Wheezes, Respiratory Distress - Cardiovascular Exam Cardiovascular Exam: REGULAR RHYTHM, +S1, +S2 - GI/Abdominal Exam GI & Abdominal Exam: Soft. absent: Distended, Firm, Guarding, Rigid, Tenderness - Extremities Exam Extremities Exam: absent: Calf Tenderness, Pedal Edema - Back Exam Back Exam: absent: CVA tenderness (L), CVA tenderness (R) - Neurological Exam Neurological Exam: Alert, Awake, CN II-XII Intact, Oriented x3 - Psychiatric Exam Psychiatric exam: Normal Affect, Normal Mood - Skin Skin Exam: Dry, Warm Assessment and Plan - Assessment and Plan (Free Text) Plan: COPD (chronic obstructive pulmonary disease) exacerbation (improving) -Chest X ray: COPD, no active lung disease -Blood Culture: negative at 3 days -Advair 500/50 1puff INH q12h -Duonebs 3mL INH q4h -Solu Medrol 40mg IVP Q12 hours -Montelukast 10mg PO HS -Robitussin 200mg PO q4h prn Leukocytosis -WBC 14.1 -No active signs of infection at this time, likely 2/2 steroids -Will taper steroids Alcohol use disorder -[facility] protocol -Thiamine, Multivitamin, Folic Acid PO daily -Will continue to monitor -Alcohol cessation advised Hx of Depression -Denies depression or SI at this time -Zoloft 150mg PO daily -Remeron 30mg PO HS -Ambien 5mg PO HS prn Hx of BPH -Flomax 0.4 mg PO daily History of gastric ulcer -Protonix 40mg PO daily Chronic Pain/recent rib fx -Gabapentin 100mg PO TID Hx of Tobacco Use -Nicotine Patch 21mg/24hr TD daily -Advised/counseled on smoking cessation Prophylactic Measures -Protonix 40mg PO daily -Lovenox 40mg SC daily -Heart healthy diet DISPO: Discharged in AM with the following instructions. Patient is to be discharged home per Dr. Gonzalez. Patient is to follow up with Dr. Gonzalez in his office within 2 weeks of discharge. Patient is to continue taking his medications as previously prescribed. Patient counseled multiple times on the importance of completely quitting smoking. If he continues to smoke, he will continue to return to the hospital for difficulty breathing. If patient experiences any new or worsening symptoms, please go directly to the nearest emergency department. Case discussed and all medical management per Dr. Gonzalez
== END 2018-06-17 08:30 | disposition home or self-care (01) | DRG 88 ==
LOC: C.ER 16:13 → C.9E 18:48 → C.3T 19:44 → OBSVTOIN 06-14 15:23
PROVIDERS: ADMIT Internal Medicine Pulmonary Disease; ATTEND Internal Medicine Pulmonary Disease
DX: J44.1 Chronic obstructive pulmonary disease with (acute) exacerbation (principal); D72.829 Elevated white blood cell count, unspecified; I10 Essential (primary) hypertension; N40.0 Benign prostatic hyperplasia without lower urinary tract symptoms; F32.9 Major depressive disorder, single episode, unspecified; G89.29 Other chronic pain; F17.210 Nicotine dependence, cigarettes, uncomplicated; Z87.01 Personal history of pneumonia (recurrent); Z87.11 Personal history of peptic ulcer disease; Z59.0 Homelessness

== ENCOUNTER 2018-06-22 16:57 | Inpatient (IN) | payer MEDICAID ==
[2018-06-22 17:02] VITALS: BMI 18.8
[2018-06-22] MEDS ORDERED: Albuterol-Ipratrop 3 mg / 0.5 (3 ml) UD IH STA (17:12)
--- NOTE | 2018-06-22 17:27 | RAD ---
Date of service: 06/22/2018 PROCEDURE: CHEST RADIOGRAPH, 1 VIEW HISTORY: SOB COMPARISON: Comparison is made with 06/12/2018 FINDINGS: LUNGS: Hyperinflation of the lungs is again noted. No evidence of new infiltrate or consolidation in the lungs. PLEURA: No pneumothorax or pleural fluid seen. CARDIOVASCULAR: Normal. OSSEOUS STRUCTURES: No significant abnormalities. VISUALIZED UPPER ABDOMEN: Normal. OTHER FINDINGS: None. IMPRESSION: No active disease.
[2018-06-22] MEDS ORDERED: Albuterol-Ipratrop 3 mg / 0.5 (3 ml) UD ONE (17:40)
[2018-06-22 17:43] LABS: BASO % 0.2 % (0.0-2.0); EOS # 0.1 K/uL (0.0-0.7); EOS % 0.7 % (0.0-4.0); HEMOGLOBIN 11.7 g/dL (12.0-18.0); LYMPH # 2.4 K/uL (1.0-4.3); LYMPH % 26.7 % (20.0-40.0); MEAN CELL VOLUME 94.3 fL (80.0-94.0); MEAN CORPUSCULAR HEMOGLOBIN 31.7 pg (27.0-31.0); MEAN CORPUSCULAR HGB CONC 33.6 g/dL (33.0-37.0); MEAN PLATELET VOLUME 7.9 fL (7.2-11.7); MONO # 0.6 K/uL (0.0-0.8); MONO % 6.9 % (0.0-10.0); NEUT # 5.9 K/uL (1.8-7.0); NEUT % 65.5 % (50.0-75.0); RBC 3.7 Mil/uL (4.40-5.90); RED CELL DISTRIBUTION WIDTH 18.2 % (11.5-14.5); WHITE BLOOD COUNT 9.1 K/uL (4.8-10.8)
--- NOTE | 2018-06-22 18:02 | C.PDOC ---
Time Seen by Provider: 06/22/18 17:03 Chief Complaint (Nursing): Shortness Of Breath History Per: Patient, EMS Onset/Duration Of Symptoms: Days (few) Current Symptoms Are (Timing): Worse Current Respiratory Medications: See Home Med List Severity: Moderate Associated Symptoms: Productive Cough Additional History Per: Prior Records Past Medical History Reviewed: Historical Data, Nursing Documentation, Vital Signs Vital Signs: Last Vital Signs Temp 98.6 F 06/22/18 17:07 Pulse 90 06/22/18 17:07 Resp 21 06/22/18 17:36 BP 139/93 H 06/22/18 17:07 Pulse Ox 97 06/22/18 18:02 - Medical History PMH: Anxiety, Asthma, Bronchitis, COPD, Depression, Gastrointestinal Ulcer, HTN , Pneumonia Other PMH: Alcohol abuse Surgical History: Appendectomy, Tonsillectomy - [facility] Procedures CONTR ABD ARTERIOGRM NEC (05/20/07) DETOXIFICATION SERVICES FOR SUBSTANCE ABUSE TREATMENT (05/05/18) ESOPHAGOGASTRODUODENOSCOPY [EGD] W/CLOSED BIOPSY (05/20/07) EXCISION OF LOWER ESOPHAGUS, ENDO, DIAGN (05/21/17) EXTIRPATION OF MATTER FROM LOWER ESOPHAGUS, ENDO (05/21/17) GROUP TUNNEL MAN FOR SUBSTANCE ABUSE TREATMENT, PSYCHOEDUCATION (05/05/18) GROUP TUNNEL MAN FOR SUBSTANCE ABUSE, COGNITIVE BEHAVIORAL (05/05/18) GROUP PSYCHOTHERAPY (05/05/18) INDIV TUNNEL MAN FOR SUBSTANCE ABUSE TREATMENT, PSYCHOEDUCATION (01/14/17) INDIV TUNNEL MAN FOR SUBSTANCE ABUSE, COGNITIVE BEHAVIORAL (01/14/17) INDIV PSYCHOTHERAPY FOR SUBSTANCE ABUSE TREATMENT, SUPPORT (05/05/18) INDIV PSYCHOTHERAPY FOR SUBSTANCE ABUSE, COGNITIV BEHAVIORAL (05/05/18) INDIV PSYCHOTHERAPY FOR SUBSTANCE ABUSE, PSYCHOEDUCATION (05/05/18) INDIVIDUAL PSYCHOTHERAPY, COGNITIVE-BEHAVIORAL (05/05/18) INDIVIDUAL PSYCHOTHERAPY, SUPPORTIVE (05/05/18) INJECT/INFUSE NEC (03/20/12) MEDICATION MANAGEMENT (03/12/17) MEDS MGMT FOR SUBSTANCE ABUSE TREATMENT, OTH REPL MED (03/12/17) Family History: States: Unknown Family Hx - Social History Hx Tobacco Use: Yes Hx Alcohol Use: Yes Hx Substance Use: Yes - Immunization History Hx Tetanus Toxoid Vaccination: Yes Hx Influenza Vaccination: Yes Hx Pneumococcal Vaccination: Yes Review Of Systems Except As Marked, All Systems Reviewed And Found Negative. Constitutional: Negative for: Fever Cardiovascular: Negative for: Chest Pain Respiratory: Positive for: Cough, Shortness of Breath, Sputum, Wheezing. Negative for: Hemoptysis Gastrointestinal: Negative for: Abdominal Pain, Melena, Hematochezia, Hematemesis Musculoskeletal: Negative for: Neck Pain Neurological: Negative for: Weakness, Numbness Physical Exam - Physical Exam Appears: Non-toxic, In Acute Distress (mild) Skin: Normal Color, Warm, Dry Head: Atraumatic, Normacephalic Eye(s): bilateral: PERRL, EOMI Neck: Normal ROM, Supple Cardiovascular: Rhythm Regular Respiratory: No Accessory Muscle Use, Wheezing Gastrointestinal/Abdominal: Soft, No Tenderness Back: No CVA Tenderness Extremity: Normal ROM, No Pedal Edema, No Calf Tenderness Neurological/Psych: Oriented x3, Normal Motor, Normal Sensation ED Course And Treatment - Laboratory Results Result Diagrams: 06/22/18 17:35 06/22/18 17:35 Lab Interpretation: No Acute Changes ECG: Interpreted By Me, Viewed By Me ECG Rhythm: Sinus Rhythm, Nonspecific Changes ECG Interpretation: No Acute Changes Rate From EC O2 Sat by Pulse Oximetry: 97 Pulse Ox Interpretation: Normal - Radiology CXR: Viewed By Me, Read By Radiologist CXR Interpretation: Yes: COPD Progress Note: Pt is no longer in respiratory distress, however he is still feeling short of breath and is still wheezing diffusely. Progress - Interventions Interventions:: Observation, Oxygen - Medications Administered Inhaled nebulized: Anticholinergic, Beta-2 agonist Intravenous: Corticosteroid (given by EMS) - Data Reviewed Data Reviewed: Lab, Diagnostic imaging, EKG, Old records - Patient Status Patient status: Partially improved - Continuity of Care Discussed patient case with:: Patient, ED Nurse, PMD Disposition Discussed With : Dino Gonzalez Comment: He accepted pt on his service. Doctor Will See Patient In The: Hospital Counseled Patient/Family Regarding: Studies Performed, Diagnosis, Smoking Cessation - Disposition Disposition: HOSPITALIZED Disposition Time: 18:13 Condition: FAIR - Clinical Impression Clinical Impression: COPD exacerbation
[2018-06-22 18:06] LABS: ALB/GLOB RATIO 1.5 (1.0-2.1); ALBUMIN 3.8 g/dL (3.5-5.0); ALT/SGPT 60 U/L (21-72); AST/SGOT 35 U/L (17-59); BLOOD UREA NITROGEN 7 mg/dL (9-20); CALCIUM 8.3 mg/dl (8.6-10.4); GFR AFRICAN-AMERICAN > 60; GFR NON-AFRICAN AMERICAN > 60
[2018-06-22 18:07] LABS: B-TYPE NATRIURETIC PEPTIDE 313 pg/mL (0-900)
[2018-06-22] MEDS ORDERED: Aluminum Hydroxide/Magnesium Hydroxide Susp (30 mL) PO PRN (21:29)
[2018-06-22] MEDS ORDERED: Fluticasone Nasal 50 mcg/Spray NS PRN (21:29)
[2018-06-22] MEDS: Albuterol-Ipratrop 3 mg / 0.5 (3 ml) UD INH SCH (22:16)
[2018-06-22] MEDS: MethylPREDNISolone 40 mg Vial IVP SCH (22:49)
[2018-06-23] MEDS: Albuterol-Ipratrop 3 mg / 0.5 (3 ml) UD INH SCH ×6 (00:52→19:39)
[2018-06-23] MEDS: MethylPREDNISolone 40 mg Vial IVP SCH ×4 (03:04→21:35)
[2018-06-23 07:48] VITALS: RESP 20
--- NOTE | 2018-06-23 08:22 | CP.PCM.PN ---
Subjective - Date & Time of Evaluation Date of Evaluation: 06/23/18 Time of Evaluation: 08:22 - Subjective Subjective: PGY2- Medicine progress note for Dr. Gonzalez Patient was seen and examined at bedside in no acute distress. Patient reports feeling short of breath. He says he used his medications as prescribed after being discharged last week, however, he missed a day or two because he was drinking. Patient also states he feeling shaky/tremulous. He states his last drink was at 3pm yesterday before coming to the hospital. He drank 1 pint of vodka. The patient admits to having two episodes of watery non bloody diarrhea today. Patient denies chest pain, palpitations, dizziness, abdominal pain, nausea, vomiting, fevers, a/v hallucinations. Objective - Vital Signs/Intake and Output Vital Signs (last 24 hours): Temp Pulse Resp BP Pulse Ox 98.4 F 96 H 20 165/81 H 96 06/23/18 07:44 06/23/18 07:44 06/23/18 07:44 06/23/18 07:44 06/23/18 07:44 - Medications Medications: Current Medications Acetaminophen (Tylenol 325mg Tab) 650 mg PO Q6 PRN PRN Reason: Pain, moderate (4-7) Al Hydrox/Mg Hydrox/Simethicone (Maalox 30 Ml) 30 ml PO DAILY PRN PRN Reason: Dyspepsia Albuterol/Ipratropium (Duoneb 3 Mg/0.5 Mg (3 Ml) Ud) 3 ml INH RQ4 [facility] Last Admin: 06/23/18 05:03 Dose: Not Given Enoxaparin Sodium (Lovenox) 40 mg SC DAILY [facility] Fluticasone Propionate (Flonase) 1 spr NS TID PRN PRN Reason: Nasal congestion Folic Acid (Folic Acid) 1 mg PO DAILY [facility] Gabapentin (Neurontin) 100 mg PO TID [facility] Guaifenesin (Robitussin) 100 mg PO Q4H PRN PRN Reason: Cough Methylprednisolone (Solu-Medrol) 40 mg IVP Q6H [facility] Last Admin: 06/23/18 03:04 Dose: 40 mg Mirtazapine (Remeron) 30 mg PO HS [facility] Last Admin: 06/22/18 22:53 Dose: Not Given Montelukast Sodium (Singulair) 10 mg PO HS [facility] Last Admin: 06/22/18 22:49 Dose: 10 mg Multivitamins (Hexavitamin) 1 tab PO DAILY [facility] Fluticasone/Salmeterol (Advair Diskus 500/50) 1 puff INH RQ12 [facility] Sertraline HCl (Zoloft) 150 mg PO DAILY [facility] Tamsulosin HCl (Flomax) 0.4 mg PO DAILY [facility] - Labs Labs: 06/22/18 17:35 06/22/18 17:35 - Constitutional Appears: No Acute Distress, Cachectic, Chronically Ill - Head Exam Head Exam: NORMAL INSPECTION - Eye Exam Eye Exam: EOMI Pupil Exam: Unequal - ENT Exam ENT Exam: Mucous Membranes Moist - Respiratory Exam Respiratory Exam: Prolonged Expiratory Phase, Rhonchi, Wheezes, NORMAL BREATHING PATTERN - Cardiovascular Exam Cardiovascular Exam: Tachycardia, +S1, +S2 - GI/Abdominal Exam GI & Abdominal Exam: Soft, Normal Bowel Sounds. absent: Distended, Firm, Tenderness - Extremities Exam Extremities Exam: Normal Inspection. absent: Pedal Edema, Tenderness - Neurological Exam Neurological Exam: Alert, Awake, CN II-XII Intact, Oriented x3 Additional comments: Tremulous - Psychiatric Exam Psychiatric exam: Normal Affect, Normal Mood - Skin Skin Exam: Dry, Intact, Normal Color, Warm Assessment and Plan - Assessment and Plan (Free Text) Plan: COPD (chronic obstructive pulmonary disease) exacerbation -Chest X ray: no active lung disease -Advair 500/50 1puff INH q12h -Duonebs 3mL INH q4h -Solu Medrol 40mg IVP Q6h -Montelukast 10mg PO HS -Robitussin 200mg PO q4h prn Alcohol use disorder -Alcohol at admission 141 -[facility] protocol -Seizure and fall precautions -Thiamine, Multivitamin, Folic Acid PO daily -Ativan 1mg IV Q6prn for symptoms of withdrawal -Lipase and amylase: f/u -Will continue to monitor Hx of Depression -Zoloft 150mg PO daily -Remeron 30mg PO HS Hx of BPH -Flomax 0.4 mg PO daily History of gastric ulcer -Protonix 40mg PO daily Chronic Pain/recent rib fx -Gabapentin 100mg PO TID Hx of Tobacco Use -Nicotine Patch 21mg/24hr TD daily -Advised/counseled on smoking cessation Prophylactic Measures -Protonix 40mg PO daily -Lovenox 40mg SC daily Case discussed with Dr. Gonzalez. Management per Dr. Gonzalez.
[2018-06-23] MEDS: Fluticasone-Salmeterol 500-50mcg Diskus INH SCH ×2 (08:23→19:52)
[2018-06-23] MEDS: Enoxaparin 40 mg Syringe SC SCH (09:50)
[2018-06-23] MEDS: Multiple Vitamins Tab PO SCH (09:51)
[2018-06-23] MEDS: guaiFENesin 100 mg/5 ml Syrup UD PO PRN ×3 (10:05→21:41)
[2018-06-23] MEDS: Pantoprazole 40 mg EC Tab PO SCH (10:05)
[2018-06-23 11:24] LABS: BASO % 0.1 % (0.0-2.0); HEMOGLOBIN 11.8 g/dL (12.0-18.0); LYMPH # 0.9 K/uL (1.0-4.3); LYMPH % 7.9 % (20.0-40.0); MEAN CELL VOLUME 95.2 fL (80.0-94.0); MEAN CORPUSCULAR HEMOGLOBIN 31.7 pg (27.0-31.0); MEAN CORPUSCULAR HGB CONC 33.3 g/dL (33.0-37.0); MEAN PLATELET VOLUME 8.6 fL (7.2-11.7); MONO # 0.5 K/uL (0.0-0.8); MONO % 4.5 % (0.0-10.0); NEUT # 10.2 K/uL (1.8-7.0); NEUT % 87.5 % (50.0-75.0); PLATELET COUNT 323 K/uL (130-400); RBC 3.72 Mil/uL (4.40-5.90); RED CELL DISTRIBUTION WIDTH 17.8 % (11.5-14.5); WHITE BLOOD COUNT 11.7 K/uL (4.8-10.8)
[2018-06-23 11:32] LABS: ALB/GLOB RATIO 1.5 (1.0-2.1); ALBUMIN 3.8 g/dL (3.5-5.0); ALT/SGPT 48 U/L (21-72); AST/SGOT 25 U/L (17-59); BLOOD UREA NITROGEN 13 mg/dL (9-20); CALCIUM 8.7 mg/dl (8.6-10.4); GFR AFRICAN-AMERICAN > 60; GFR NON-AFRICAN AMERICAN > 60
[2018-06-23 11:37] LABS: AMYLASE 147 U/L (30-110); LIPASE 106 U/L (23-300)
[2018-06-23 12:07] LABS: BANDS 2 % (0-2); LYMPHOCYTE 7 % (20-40); MONOCYTE 2 % (0-10); NEUTROPHIL 89 % (50-75); PLATELET ESTIMATE NORMAL (NORMAL); TOTAL CELLS COUNTED 100
[2018-06-23 12:09] LABS: ANISOCYTOSIS SLIGHT; HYPOCHROMIC SLIGHT; POIKILOCYTOSIS SLIGHT; TARGET CELLS SLIGHT; TEARDROP CELLS SLIGHT
--- NOTE | 2018-06-23 19:50 | CARD ---
APPROVED REPORT Date of service: 06/22/2018 EKG Measurement Heart [id number] <Conclusion> Normal sinus rhythm with sinus arrhythmia Septal infarct, age undetermined Abnormal ECG
[2018-06-24] MEDS: Albuterol-Ipratrop 3 mg / 0.5 (3 ml) UD INH SCH ×6 (00:18→20:14)
[2018-06-24] MEDS: MethylPREDNISolone 40 mg Vial IVP SCH ×4 (03:59→21:28)
[2018-06-24] MEDS: guaiFENesin 100 mg/5 ml Syrup UD PO PRN ×4 (04:01→21:45)
--- NOTE | 2018-06-24 07:16 | CP.PCM.PN ---
Subjective - Date & Time of Evaluation Date of Evaluation: 06/24/18 Time of Evaluation: 07:15 - Subjective Subjective: PGY2- Progress note for Dr. Gonzalez Patient was seen and examined at bedside in no acute distress. Patient states he is feeling slightly better, his breathing has improved but he still feels short of breath and has wheezing. He also states he no longer is having diarrhea - only had a few episodes yesterday, which has since resolved. He still feels tremulous at times, but states it has improved since yesterday. The patient denies chest pain, palpitations, abdominal pain, nausea, vomiting, fevers, headaches, hallucinations, leg pain, and leg swelling. Objective - Vital Signs/Intake and Output Vital Signs (last 24 hours): Temp Pulse Resp BP Pulse Ox 98 F 98 H 20 136/69 98 06/23/18 23:28 06/23/18 23:28 06/23/18 23:28 06/23/18 23:28 06/23/18 23:53 Intake and Output: 06/24/18 06/24/18 06:59 18:59 Intake Total 840 Output Total 800 Balance 40 - Medications Medications: Current Medications Acetaminophen (Tylenol 325mg Tab) 650 mg PO Q6 PRN PRN Reason: Pain, moderate (4-7) Al Hydrox/Mg Hydrox/Simethicone (Maalox 30 Ml) 30 ml PO DAILY PRN PRN Reason: Dyspepsia Albuterol/Ipratropium (Duoneb 3 Mg/0.5 Mg (3 Ml) Ud) 3 ml INH RQ4 [facility] Last Admin: 06/24/18 03:12 Dose: Not Given Enoxaparin Sodium (Lovenox) 40 mg SC DAILY [facility] Last Admin: 06/23/18 09:50 Dose: 40 mg Fluticasone Propionate (Flonase) 1 spr NS TID PRN PRN Reason: Nasal congestion Folic Acid (Folic Acid) 1 mg PO DAILY [facility] Last Admin: 06/23/18 09:50 Dose: 1 mg Gabapentin (Neurontin) 100 mg PO TID [facility] Last Admin: 06/23/18 17:05 Dose: 100 mg Guaifenesin (Robitussin) 100 mg PO Q4H PRN PRN Reason: Cough Last Admin: 06/24/18 04:01 Dose: 100 mg Lorazepam (Ativan) 1 mg IVP Q6H PRN PRN Reason: Symptoms of alcohol withdrawl Methylprednisolone (Solu-Medrol) 40 mg IVP Q6H [facility] Last Admin: 06/24/18 03:59 Dose: 40 mg Mirtazapine (Remeron) 30 mg PO HS [facility] Last Admin: 06/23/18 21:36 Dose: 30 mg Montelukast Sodium (Singulair) 10 mg PO HS [facility] Last Admin: 06/23/18 21:36 Dose: 10 mg Multivitamins (Hexavitamin) 1 tab PO DAILY [facility] Last Admin: 06/23/18 09:51 Dose: 1 tab Nicotine (Nicoderm Cq) 1 patch TD DAILY [facility] Last Admin: 06/23/18 10:28 Dose: 1 patch Pantoprazole Sodium (Protonix Ec Tab) 40 mg PO DAILY [facility] Last Admin: 06/23/18 10:05 Dose: 40 mg Fluticasone/Salmeterol (Advair Diskus 500/50) 1 puff INH RQ12 [facility] Last Admin: 06/23/18 19:52 Dose: 1 puff Sertraline HCl (Zoloft) 150 mg PO DAILY [facility] Last Admin: 06/23/18 10:55 Dose: 150 mg Tamsulosin HCl (Flomax) 0.4 mg PO DAILY [facility] Last Admin: 06/23/18 09:50 Dose: 0.4 mg Thiamine HCl (Vitamin B1 Tab) 100 mg PO DAILY [facility] Last Admin: 06/23/18 10:55 Dose: 100 mg - Labs Labs: 06/23/18 11:09 06/23/18 11:09 - Additional Findings Additional findings: - Constitutional Appears: No Acute Distress, Cachectic, Chronically Ill - Head Exam Head Exam: NORMAL INSPECTION - Eye Exam Eye Exam: EOMI Pupil Exam: Unequal - ENT Exam ENT Exam: Mucous Membranes Moist - Respiratory Exam Respiratory Exam: Prolonged Expiratory Phase, Rhonchi, Wheezes, NORMAL BREATHING PATTERN - Cardiovascular Exam Cardiovascular Exam: Tachycardia, +S1, +S2 - GI/Abdominal Exam GI & Abdominal Exam: Soft, Normal Bowel Sounds. absent: Distended, Firm, Tenderness - Extremities Exam Extremities Exam: Normal Inspection. absent: Pedal Edema, Tenderness - Neurological Exam Neurological Exam: Alert, Awake, CN II-XII Intact, Oriented x3 Additional comments: Tremulous - Psychiatric Exam Psychiatric exam: Normal Affect, Normal Mood - Skin Skin Exam: Dry, Intact, Normal Color, Warm Assessment and Plan - Assessment and Plan (Free Text) Plan: COPD (chronic obstructive pulmonary disease) exacerbation -Chest X ray: no active lung disease -Advair 500/50 1puff INH q12h -Duonebs 3mL INH q4h -Solu Medrol 40mg IVP Q6h -Montelukast 10mg PO HS -Robitussin 200mg PO q4h prn Leukocytosis -WBC 11.7 -Afebrile -Likely secondary to steroids, will continue to monitor Alcohol use disorder -Alcohol at admission 141 -[facility] protocol -Seizure and fall precautions -Thiamine, Multivitamin, Folic Acid PO daily -Ativan 1mg IV Q6prn for symptoms of withdrawal -Lipase: 106, wnl -Amylase: 147, H -Will continue to monitor Hx of Depression -Zoloft 150mg PO daily -Remeron 30mg PO HS Hx of BPH -Flomax 0.4 mg PO daily History of gastric ulcer -Protonix 40mg PO daily Chronic Pain/recent rib fx -Gabapentin 100mg PO TID Hx of Tobacco Use -Nicotine Patch 21mg/24hr TD daily -Advised/counseled on smoking cessation Prophylactic Measures -Protonix 40mg PO daily -Lovenox 40mg SC daily Case discussed with Dr. Gonzalez. Management per Dr. Gonzalez.
[2018-06-24 07:50] LABS: BASO % 0.1 % (0.0-2.0); HEMOGLOBIN 11.4 g/dL (12.0-18.0); LYMPH # 0.6 K/uL (1.0-4.3); LYMPH % 3.9 % (20.0-40.0); MEAN CELL VOLUME 94.8 fL (80.0-94.0); MEAN CORPUSCULAR HEMOGLOBIN 31.9 pg (27.0-31.0); MEAN CORPUSCULAR HGB CONC 33.7 g/dL (33.0-37.0); MEAN PLATELET VOLUME 8.2 fL (7.2-11.7); MONO # 0.3 K/uL (0.0-0.8); MONO % 1.8 % (0.0-10.0); NEUT # 13.5 K/uL (1.8-7.0); NEUT % 94.2 % (50.0-75.0); PLATELET COUNT 297 K/uL (130-400); RBC 3.57 Mil/uL (4.40-5.90); WHITE BLOOD COUNT 14.4 K/uL (4.8-10.8)
[2018-06-24 08:23] LABS: ALB/GLOB RATIO 1.5 (1.0-2.1); ALBUMIN 3.5 g/dL (3.5-5.0); ALT/SGPT 43 U/L (21-72); AST/SGOT 22 U/L (17-59); BLOOD UREA NITROGEN 15 mg/dL (9-20); CALCIUM 8.8 mg/dl (8.6-10.4); GFR AFRICAN-AMERICAN > 60; GFR NON-AFRICAN AMERICAN > 60
[2018-06-24] MEDS: Fluticasone-Salmeterol 500-50mcg Diskus INH SCH ×2 (08:31→20:14)
[2018-06-24 09:12] LABS: LYMPHOCYTE 6 % (20-40); MONOCYTE 1 % (0-10); NEUTROPHIL 93 % (50-75); PLATELET ESTIMATE NORMAL (NORMAL); TOTAL CELLS COUNTED 100
[2018-06-24 09:13] LABS: ANISOCYTOSIS SLIGHT; HYPOCHROMIC SLIGHT; POIKILOCYTOSIS SLIGHT
[2018-06-24] MEDS: Multiple Vitamins Tab PO SCH (09:23)
[2018-06-24] MEDS: Pantoprazole 40 mg EC Tab PO SCH (09:24)
[2018-06-24] MEDS: Enoxaparin 40 mg Syringe SC SCH (09:24)
[2018-06-25] MEDS: Albuterol-Ipratrop 3 mg / 0.5 (3 ml) UD INH SCH ×6 (01:09→19:08)
[2018-06-25] MEDS: MethylPREDNISolone 40 mg Vial IVP SCH ×4 (03:12→21:58)
--- NOTE | 2018-06-25 07:29 | CP.PCM.PN ---
Subjective - Date & Time of Evaluation Date of Evaluation: 06/25/18 Time of Evaluation: 07:00 - Subjective Subjective: PGY2- Progress note for Dr. Gonzalez Patient seen and examined sitting up in bed. Patient says he is breathing easier today. Patient still feels shaky and anxious. Patient denies chest pain, abdominal pain, nausea, vomiting, constipation, or diarrhea. Objective - Vital Signs/Intake and Output Vital Signs (last 24 hours): Temp Pulse Resp BP Pulse Ox 98.2 F 96 H 20 141/75 96 06/24/18 23:28 06/24/18 23:28 06/24/18 23:28 06/24/18 23:28 06/24/18 23:28 Intake and Output: 06/25/18 06/25/18 06:59 18:59 Intake Total 830 Balance 830 - Medications Medications: Current Medications Acetaminophen (Tylenol 325mg Tab) 650 mg PO Q6 PRN PRN Reason: Pain, moderate (4-7) Al Hydrox/Mg Hydrox/Simethicone (Maalox 30 Ml) 30 ml PO DAILY PRN PRN Reason: Dyspepsia Albuterol/Ipratropium (Duoneb 3 Mg/0.5 Mg (3 Ml) Ud) 3 ml INH RQ4 [facility] Last Admin: 06/25/18 04:12 Dose: Not Given Enoxaparin Sodium (Lovenox) 40 mg SC DAILY [facility] Last Admin: 06/24/18 09:24 Dose: 40 mg Fluticasone Propionate (Flonase) 1 spr NS TID PRN PRN Reason: Nasal congestion Folic Acid (Folic Acid) 1 mg PO DAILY [facility] Last Admin: 06/24/18 09:24 Dose: 1 mg Gabapentin (Neurontin) 100 mg PO TID [facility] Last Admin: 06/24/18 17:00 Dose: 100 mg Guaifenesin (Robitussin) 100 mg PO Q4H PRN PRN Reason: Cough Last Admin: 06/24/18 21:45 Dose: 100 mg Lorazepam (Ativan) 1 mg IVP Q6H PRN PRN Reason: Symptoms of alcohol withdrawl Methylprednisolone (Solu-Medrol) 40 mg IVP Q6H [facility] Last Admin: 06/25/18 03:12 Dose: 40 mg Mirtazapine (Remeron) 30 mg PO HS [facility] Last Admin: 06/24/18 21:28 Dose: 30 mg Montelukast Sodium (Singulair) 10 mg PO HS [facility] Last Admin: 06/24/18 21:30 Dose: 10 mg Multivitamins (Hexavitamin) 1 tab PO DAILY [facility] Last Admin: 06/24/18 09:23 Dose: 1 tab Nicotine (Nicoderm Cq) 1 patch TD DAILY [facility] Last Admin: 06/24/18 09:23 Dose: 1 patch Pantoprazole Sodium (Protonix Ec Tab) 40 mg PO DAILY [facility] Last Admin: 06/24/18 09:24 Dose: 40 mg Fluticasone/Salmeterol (Advair Diskus 500/50) 1 puff INH RQ12 [facility] Last Admin: 06/24/18 20:14 Dose: 1 puff Sertraline HCl (Zoloft) 150 mg PO DAILY [facility] Last Admin: 06/24/18 10:08 Dose: 150 mg Tamsulosin HCl (Flomax) 0.4 mg PO DAILY [facility] Last Admin: 06/24/18 09:24 Dose: 0.4 mg Thiamine HCl (Vitamin B1 Tab) 100 mg PO DAILY [facility] Last Admin: 06/24/18 09:24 Dose: 100 mg - Labs Labs: 06/24/18 07:36 06/24/18 07:36 - Additional Findings Additional findings: - Constitutional Appears: No Acute Distress, Cachectic, Chronically Ill - Head Exam Head Exam: NORMAL INSPECTION - Eye Exam Eye Exam: EOMI Pupil Exam: Unequal - ENT Exam ENT Exam: Mucous Membranes Moist - Respiratory Exam Respiratory Exam: Prolonged Expiratory Phase, Rhonchi, Wheezes, NORMAL BREATHING PATTERN - Cardiovascular Exam Cardiovascular Exam: Tachycardia, +S1, +S2 - GI/Abdominal Exam GI & Abdominal Exam: Soft, Normal Bowel Sounds. absent: Distended, Firm, Tenderness - Extremities Exam Extremities Exam: Normal Inspection. absent: Pedal Edema, Tenderness - Neurological Exam Neurological Exam: Alert, Awake, CN II-XII Intact, Oriented x3 Additional comments: Tremulous - Psychiatric Exam Psychiatric exam: Normal Affect, Normal Mood - Skin Skin Exam: Dry, Intact, Normal Color, Warm Assessment and Plan - Assessment and Plan (Free Text) Assessment: COPD (chronic obstructive pulmonary disease) exacerbation -Chest X ray: no active lung disease -Advair 500/50 1puff INH q12h -Duonebs 3mL INH q4h -Solu Medrol 40mg IVP Q6h -Montelukast 10mg PO HS -Robitussin 200mg PO q4h prn Leukocytosis -WBC 11.7 -Afebrile -Likely secondary to steroids, will continue to monitor Alcohol use disorder -Alcohol at admission 141 -[facility] protocol -Seizure and fall precautions -Thiamine, Multivitamin, Folic Acid PO daily -Librium 25mg po given -Librium 25mg po q8h prn -Lipase: 106, wnl -Amylase: 147, H -Will continue to monitor Hx of Depression -Zoloft 150mg PO daily -Remeron 30mg PO HS Hx of BPH -Flomax 0.4 mg PO daily History of gastric ulcer -Protonix 40mg PO daily Chronic Pain/recent rib fx -Gabapentin 100mg PO TID Hx of Tobacco Use -Nicotine Patch 21mg/24hr TD daily -Advised/counseled on smoking cessation Prophylactic Measures -Protonix 40mg PO daily -Lovenox 40mg SC daily Case discussed with Dr. Gonzalez. Management per Dr. Gonzalez.
[2018-06-25 08:27] LABS: BASO % 0.1 % (0.0-2.0); HEMOGLOBIN 11.1 g/dL (12.0-18.0); LYMPH # 0.5 K/uL (1.0-4.3); LYMPH % 3.7 % (20.0-40.0); MEAN CELL VOLUME 95.6 fL (80.0-94.0); MEAN CORPUSCULAR HEMOGLOBIN 31.9 pg (27.0-31.0); MEAN CORPUSCULAR HGB CONC 33.3 g/dL (33.0-37.0); MONO # 0.3 K/uL (0.0-0.8); MONO % 1.8 % (0.0-10.0); NEUT # 13.5 K/uL (1.8-7.0); NEUT % 94.4 % (50.0-75.0); PLATELET COUNT 277 K/uL (130-400); RBC 3.47 Mil/uL (4.40-5.90); RED CELL DISTRIBUTION WIDTH 18.6 % (11.5-14.5); WHITE BLOOD COUNT 14.3 K/uL (4.8-10.8)
[2018-06-25] MEDS: Fluticasone-Salmeterol 500-50mcg Diskus INH SCH ×2 (08:46→19:07)
[2018-06-25 09:08] LABS: ALB/GLOB RATIO 1.5 (1.0-2.1); ALBUMIN 3.6 g/dL (3.5-5.0); ALT/SGPT 45 U/L (21-72); AST/SGOT 26 U/L (17-59); BLOOD UREA NITROGEN 19 mg/dL (9-20); GFR AFRICAN-AMERICAN > 60; GFR NON-AFRICAN AMERICAN > 60
[2018-06-25 09:27] LABS: LYMPHOCYTE 3 % (20-40); MONOCYTE 1 % (0-10); NEUTROPHIL 96 % (50-75); PLATELET ESTIMATE NORMAL (NORMAL); TOTAL CELLS COUNTED 100
[2018-06-25 09:28] LABS: ANISOCYTOSIS SLIGHT; HYPOCHROMIC SLIGHT; POIKILOCYTOSIS SLIGHT
[2018-06-25] MEDS: Enoxaparin 40 mg Syringe SC SCH (09:29)
[2018-06-25] MEDS: Pantoprazole 40 mg EC Tab PO SCH (09:30)
[2018-06-25] MEDS: Multiple Vitamins Tab PO SCH (09:30)
[2018-06-25] MEDS: guaiFENesin 100 mg/5 ml Syrup UD PO PRN ×3 (09:55→21:57)
[2018-06-26] MEDS: Albuterol-Ipratrop 3 mg / 0.5 (3 ml) UD INH SCH ×6 (01:05→20:41)
[2018-06-26] MEDS: MethylPREDNISolone 40 mg Vial IVP SCH ×3 (04:06→17:12)
[2018-06-26] MEDS: guaiFENesin 100 mg/5 ml Syrup UD PO PRN ×3 (06:04→21:34)
[2018-06-26 07:47] LABS: BASO % 0.1 % (0.0-2.0); HEMOGLOBIN 10.1 g/dL (12.0-18.0); LYMPH # 0.5 K/uL (1.0-4.3); LYMPH % 3.7 % (20.0-40.0); MEAN CELL VOLUME 94.8 fL (80.0-94.0); MEAN CORPUSCULAR HEMOGLOBIN 31.6 pg (27.0-31.0); MEAN CORPUSCULAR HGB CONC 33.4 g/dL (33.0-37.0); MEAN PLATELET VOLUME 8.5 fL (7.2-11.7); MONO # 0.3 K/uL (0.0-0.8); MONO % 2.4 % (0.0-10.0); NEUT # 12.7 K/uL (1.8-7.0); NEUT % 93.8 % (50.0-75.0); PLATELET COUNT 257 K/uL (130-400); RED CELL DISTRIBUTION WIDTH 18.2 % (11.5-14.5); WHITE BLOOD COUNT 13.5 K/uL (4.8-10.8)
[2018-06-26 08:06] LABS: ALB/GLOB RATIO 1.5 (1.0-2.1); ALBUMIN 3.2 g/dL (3.5-5.0); ALT/SGPT 42 U/L (21-72); AST/SGOT 24 U/L (17-59); BLOOD UREA NITROGEN 19 mg/dL (9-20); CALCIUM 8.6 mg/dl (8.6-10.4); GFR AFRICAN-AMERICAN > 60; GFR NON-AFRICAN AMERICAN > 60
[2018-06-26] MEDS: Fluticasone-Salmeterol 500-50mcg Diskus INH SCH ×2 (08:20→20:41)
[2018-06-26 09:29] LABS: ANISOCYTOSIS SLIGHT; HYPOCHROMIC SLIGHT; LYMPHOCYTE 4 % (20-40); MONOCYTE 94 % (0-10); NEUTROPHIL 96 % (50-75); PLATELET ESTIMATE NORMAL (NORMAL); POIKILOCYTOSIS SLIGHT; TOTAL CELLS COUNTED 100
[2018-06-26 09:30] LABS: LARGE PLATELETS PRESENT
[2018-06-26] MEDS: Multiple Vitamins Tab PO SCH (09:52)
[2018-06-26] MEDS: Enoxaparin 40 mg Syringe SC SCH (09:53)
[2018-06-26] MEDS: Pantoprazole 40 mg EC Tab PO SCH (09:54)
--- NOTE | 2018-06-26 15:17 | CP.PCM.PN ---
Subjective - Date & Time of Evaluation Date of Evaluation: 06/26/18 Time of Evaluation: 07:00 - Subjective Subjective: PGY2- Progress Note for Dr. Shafer Patient says he is feeling better today. Patient walking around with PT and O2 saturation did not drop below 93%. Patient feels much less anxious than yesterday. Patient denies chest pain, shortness of breath, abdominal pain, nausea, vomiting, diarrhea, or constipation. Objective - Vital Signs/Intake and Output Vital Signs (last 24 hours): Temp Pulse Resp BP Pulse Ox 98.4 F 73 20 151/88 H 99 06/26/18 07:38 06/26/18 07:38 06/26/18 07:38 06/26/18 07:38 06/26/18 07:38 Intake and Output: 06/26/18 06/26/18 06:59 18:59 Intake Total 840 300 Balance 840 300 - Medications Medications: Current Medications Acetaminophen (Tylenol 325mg Tab) 650 mg PO Q6 PRN PRN Reason: Pain, moderate (4-7) Al Hydrox/Mg Hydrox/Simethicone (Maalox 30 Ml) 30 ml PO DAILY PRN PRN Reason: Dyspepsia Albuterol/Ipratropium (Duoneb 3 Mg/0.5 Mg (3 Ml) Ud) 3 ml INH RQ4 [facility] Last Admin: 06/26/18 12:10 Dose: 3 ml Chlordiazepoxide (Librium) 25 mg PO Q8 PRN PRN Reason: alcohol withdrawal Enoxaparin Sodium (Lovenox) 40 mg SC DAILY [facility] Last Admin: 06/26/18 09:53 Dose: 40 mg Folic Acid (Folic Acid) 1 mg PO DAILY [facility] Last Admin: 06/26/18 09:54 Dose: 1 mg Gabapentin (Neurontin) 100 mg PO TID [facility] Last Admin: 06/26/18 13:08 Dose: 100 mg Guaifenesin (Robitussin) 100 mg PO Q4H PRN PRN Reason: Cough Last Admin: 06/26/18 09:53 Dose: 100 mg Methylprednisolone (Solu-Medrol) 40 mg IVP Q8H [facility] Last Admin: 06/26/18 09:53 Dose: 40 mg Mirtazapine (Remeron) 30 mg PO HS [facility] Last Admin: 06/25/18 21:58 Dose: 30 mg Montelukast Sodium (Singulair) 10 mg PO HS [facility] Last Admin: 06/25/18 21:58 Dose: 10 mg Multivitamins (Hexavitamin) 1 tab PO DAILY [facility] Last Admin: 06/26/18 09:52 Dose: 1 tab Nicotine (Nicoderm Cq) 1 patch TD DAILY [facility] Last Admin: 06/26/18 09:54 Dose: 1 patch Pantoprazole Sodium (Protonix Ec Tab) 40 mg PO DAILY [facility] Last Admin: 06/26/18 09:54 Dose: 40 mg Fluticasone/Salmeterol (Advair Diskus 500/50) 1 puff INH RQ12 [facility] Last Admin: 06/26/18 08:20 Dose: 1 puff Sertraline HCl (Zoloft) 150 mg PO DAILY [facility] Last Admin: 06/26/18 09:53 Dose: 150 mg Tamsulosin HCl (Flomax) 0.4 mg PO DAILY [facility] Last Admin: 06/26/18 09:53 Dose: 0.4 mg Thiamine HCl (Vitamin B1 Tab) 100 mg PO DAILY [facility] Last Admin: 06/26/18 09:53 Dose: 100 mg - Labs Labs: 06/26/18 07:37 06/26/18 07:37 - Additional Findings Additional findings: - Constitutional Appears: No Acute Distress, Cachectic, Chronically Ill - Head Exam Head Exam: NORMAL INSPECTION - Eye Exam Eye Exam: EOMI Pupil Exam: Unequal - ENT Exam ENT Exam: Mucous Membranes Moist - Respiratory Exam Respiratory Exam: Prolonged Expiratory Phase, Rhonchi, Wheezes, NORMAL BREATHING PATTERN - Cardiovascular Exam Cardiovascular Exam: Tachycardia, +S1, +S2 - GI/Abdominal Exam GI & Abdominal Exam: Soft, Normal Bowel Sounds. absent: Distended, Firm, Tenderness - Extremities Exam Extremities Exam: Normal Inspection. absent: Pedal Edema, Tenderness - Neurological Exam Neurological Exam: Alert, Awake, CN II-XII Intact, Oriented x3 Additional comments: Tremulous - Psychiatric Exam Psychiatric exam: Normal Affect, Normal Mood - Skin Skin Exam: Dry, Intact, Normal Color, Warm Assessment and Plan - Assessment and Plan (Free Text) Assessment: COPD (chronic obstructive pulmonary disease) exacerbation -Chest X ray: no active lung disease -Advair 500/50 1puff INH q12h -Duonebs 3mL INH q4h -Solu Medrol 40mg IVP Q8h (decreased from q6h, decrease to q12h tomorrow) -Montelukast 10mg PO HS -Robitussin 200mg PO q4h prn Leukocytosis -WBC 11.7 -Afebrile -Likely secondary to steroids, will continue to monitor Alcohol use disorder -Alcohol at admission 141 -[facility] protocol -Seizure and fall precautions -Thiamine, Multivitamin, Folic Acid PO daily -Librium 25mg po given -Librium 25mg po q8h prn -Lipase: 106, wnl -Amylase: 147, H -Will continue to monitor Hx of Depression -Zoloft 150mg PO daily -Remeron 30mg PO HS Hx of BPH -Flomax 0.4 mg PO daily History of gastric ulcer -Protonix 40mg PO daily Chronic Pain/recent rib fx -Gabapentin 100mg PO TID Hx of Tobacco Use -Nicotine Patch 21mg/24hr TD daily -Advised/counseled on smoking cessation Prophylactic Measures -Protonix 40mg PO daily -Lovenox 40mg SC daily Case discussed with Dr. Shafer
[2018-06-27] MEDS: Albuterol-Ipratrop 3 mg / 0.5 (3 ml) UD INH SCH ×3 (00:05→07:57)
[2018-06-27] MEDS: MethylPREDNISolone 40 mg Vial IVP SCH (02:06)
[2018-06-27] MEDS: guaiFENesin 100 mg/5 ml Syrup UD PO PRN (06:14)
[2018-06-27 07:24] LABS: BASO % 0.1 % (0.0-2.0); LYMPH # 0.8 K/uL (1.0-4.3); LYMPH % 4.3 % (20.0-40.0); MEAN CELL VOLUME 94.6 fL (80.0-94.0); MEAN CORPUSCULAR HEMOGLOBIN 31.2 pg (27.0-31.0); MONO # 0.7 K/uL (0.0-0.8); MONO % 3.7 % (0.0-10.0); NEUT # 17.2 K/uL (1.8-7.0); NEUT % 91.9 % (50.0-75.0); PLATELET COUNT 267 K/uL (130-400); RBC 3.53 Mil/uL (4.40-5.90); RED CELL DISTRIBUTION WIDTH 18.6 % (11.5-14.5); WHITE BLOOD COUNT 18.8 K/uL (4.8-10.8)
[2018-06-27] MEDS ORDERED: MethylPREDNISolone 40 mg Vial IVP SCH (07:30)
[2018-06-27 07:36] LABS: ALB/GLOB RATIO 1.5 (1.0-2.1); ALBUMIN 3.6 g/dL (3.5-5.0); ALT/SGPT 53 U/L (21-72); AST/SGOT 26 U/L (17-59); BLOOD UREA NITROGEN 24 mg/dL (9-20); CALCIUM 8.8 mg/dl (8.6-10.4); GFR AFRICAN-AMERICAN > 60; GFR NON-AFRICAN AMERICAN > 60
[2018-06-27 07:55] VITALS: BP 160/89; PULSE 99; TEMP 98.5; O2SAT 96
[2018-06-27] MEDS: Fluticasone-Salmeterol 500-50mcg Diskus INH SCH (07:56)
[2018-06-27 10:01] LABS: ANISOCYTOSIS MODERATE; BANDS 6 % (0-2); LYMPHOCYTE 2 % (20-40); MONOCYTE 3 % (0-10); NEUTROPHIL 88 % (50-75); PLATELET ESTIMATE NORMAL (NORMAL); REACTIVE LYMPHOCYTES 1 % (0-0); TOTAL CELLS COUNTED 100
[2018-06-27 10:02] LABS: OVALOCYTES SLIGHT
--- NOTE | 2018-06-27 10:18 | CP.PCM.DIS ---
Provider - Provider Date of Admission: 06/24/18 09:34 Attending physician: Dino Gonzalez MD Primary care physician: Dr. Gonzalez Time Spent in preparation of Discharge (in minutes): 40 Diagnosis - Discharge Diagnosis (1) COPD with acute exacerbation Status: Resolved (2) Alcohol use disorder Status: Chronic (3) Depression Status: Chronic (4) BPH (benign prostatic hyperplasia) Status: Chronic (5) GERD (gastroesophageal reflux disease) Status: Chronic (6) Tobacco use disorder Status: Chronic Hospital Course - Lab Results Lab Results: Most Recent Lab Values WBC 18.8 K/uL (4.8-10.8) H 06/27/18 07:09 RBC 3.53 Mil/uL (4.40-5.90) L 06/27/18 07:09 Hgb 11.0 g/dL (12.0-18.0) L 06/27/18 07:09 Hct 33.4 % (35.0-51.0) L 06/27/18 07:09 MCV 94.6 fL (80.0-94.0) H 06/27/18 07:09 MCH 31.2 pg (27.0-31.0) H 06/27/18 07:09 MCHC 33.0 g/dL (33.0-37.0) 06/27/18 07:09 RDW 18.6 % (11.5-14.5) H 06/27/18 07:09 Plt Count 267 K/uL (130-400) 06/27/18 07:09 MPV 8.0 fL (7.2-11.7) 06/27/18 07:09 Neut % (Auto) 91.9 % (50.0-75.0) H 06/27/18 07:09 Lymph % (Auto) 4.3 % (20.0-40.0) L 06/27/18 07:09 Bartholomew % (Auto) 3.7 % (0.0-10.0) 06/27/18 07:09 Eos % (Auto) 0.0 % (0.0-4.0) 06/27/18 07:09 Baso % (Auto) 0.1 % (0.0-2.0) 06/27/18 07:09 Neut # (Auto) 17.2 K/uL (1.8-7.0) H 06/27/18 07:09 Lymph # (Auto) 0.8 K/uL (1.0-4.3) L 06/27/18 07:09 Bartholomew # (Auto) 0.7 K/uL (0.0-0.8) 06/27/18 07:09 Eos # (Auto) 0.0 K/uL (0.0-0.7) 06/27/18 07:09 Baso # (Auto) 0.0 K/uL (0.0-0.2) 06/27/18 07:09 Neutrophils % (Manual) 96 % (50-75) H 06/26/18 07:37 Band Neutrophils % 2 % (0-2) 06/23/18 11:09 Lymphocytes % (Manual) 4 % (20-40) L 06/26/18 07:37 Monocytes % (Manual) 94 % (0-10) H 06/26/18 07:37 Platelet Estimate Normal (NORMAL) 06/26/18 07:37 Large Platelets Present 06/26/18 07:37 Hypochromasia (manual) Slight 06/26/18 07:37 Poikilocytosis (manual Slight 06/26/18 07:37 Anisocytosis (manual) Slight 06/26/18 07:37 Target Cells Slight 06/23/18 11:09 Tear Drop Cells Slight 06/23/18 11:09 Sodium 136 mmol/L (132-148) 06/27/18 07:09 Potassium 4.2 mmol/L (3.6-5.2) 06/27/18 07:09 Chloride 95 mmol/L (98-107) L 06/27/18 07:09 Carbon Dioxide 34 mmol/L (22-30) H 06/27/18 07:09 Anion Gap 11 (10-20) 06/27/18 07:09 BUN 24 mg/dL (9-20) H 06/27/18 07:09 Creatinine 0.7 mg/dL (0.8-1.5) L 06/27/18 07:09 Est GFR ( Amer) > 60 06/27/18 07:09 Est GFR (Non-Af Amer) > 60 06/27/18 07:09 Random Glucose 124 mg/dL (75-110) H 06/27/18 07:09 Calcium 8.8 mg/dl (8.6-10.4) 06/27/18 07:09 Magnesium 2.3 mg/dL (1.6-2.3) 06/22/18 17:35 Total Bilirubin 0.2 mg/dL (0.2-1.3) 06/27/18 07:09 AST 26 U/L (17-59) 06/27/18 07:09 ALT 53 U/L (21-72) 06/27/18 07:09 Alkaline Phosphatase 56 U/L (38-126) 06/27/18 07:09 Troponin I < 0.0120 ng/mL (0.00-0.120) 06/22/18 17:35 NT-Pro-B Natriuret Pep 313 pg/mL (0-900) 06/22/18 17:35 Total Protein 5.9 g/dL (6.3-8.3) L 06/27/18 07:09 Albumin 3.6 g/dL (3.5-5.0) 06/27/18 07:09 Globulin 2.3 gm/dL (2.2-3.9) 06/27/18 07:09 Albumin/Globulin Ratio 1.5 (1.0-2.1) 06/27/18 07:09 Amylase 147 U/L (30-110) H 06/23/18 11:09 Lipase 106 U/L (23-300) 06/23/18 11:09 Alcohol, Quantitative 141 mg/dl (0-10) H 06/22/18 17:35 - Hospital Course Hospital Course: Patient is a 58 year old M with PMHx of COPD, depression, alcohol abuse, and degenerative disk disease who presented on 06/22/18 for shortness of breath that was not resolving with his normal medications. Patient was admitted for a COPD exacerbation and alcohol withdrawal. For patient's COPD he was treated with Advair 500/50 1puff INH q12h, Duonebs 3mL INH q4h, Solu Medrol 40mg taper, Montelukast 10mg PO HS, and Robitussin 200mg PO q4h prn. Patient worked with physical therapy and was able to walk with less shortness of breath and his oxygen saturation did not drop below 93%. Physical therapy also helped the patient with breathing exercises. Patient's alcohol level on admission was 141. For patient's alcohol withdrawal [facility] protocol, seizure and fall precautions were enforced. Patient was given Thiamine, Multivitamin, Folic Acid, and Librium 25mg po q8h prn daily. Patient' s tremulousness decreased throughout his stay. Patient encouraged to stay sober once he is discharged. For patient's history of tobacco use, patient was placed on a nicotine patch. For patient's depression his home medications Zoloft and Remeron were continued. Patient did not have any SI or HI during his hospital course. For patient's chronic conditions GERD, BPH, and chronic pain, patient was continued on his home medications Flomax, Protonix, and Gabapentin. Upon discharge patient was feeling much better. Patient's breathing was significantly improved. This is a summary of the patient's hospital course, please see chart for full details. Discharge Exam - Head Exam Head Exam: NORMAL INSPECTION - Eye Exam Eye Exam: EOMI, Normal appearance - ENT Exam ENT Exam: Mucous Membranes Moist - Respiratory Exam Respiratory Exam: Wheezes (mild expiratory wheezing ), NORMAL BREATHING PATTERN - Cardiovascular Exam Cardiovascular Exam: REGULAR RHYTHM, RRR, +S1, +S2 - GI/Abdominal Exam GI & Abdominal Exam: Normal Bowel Sounds, Soft. absent: Tenderness - Extremities Exam Extremities exam: normal inspection - Neurological Exam Neurological exam: Alert, Oriented x3 - Psychiatric Exam Psychiatric exam: Normal Affect, Normal Mood - Skin Skin Exam: Intact, Normal Color, Warm Discharge Plan - Discharge Medications Prescriptions: Fluticasone/Salmeterol 500/50 [Advair Diskus 500/50] 1 puff INH RQ12 #1 inhaler guaiFENesin [Robitussin] 100 mg PO Q4H PRN #1 bottle PRN Reason: Cough Methylprednisolone [Medrol Dose Pack (21 tabs)] See Taper PO DAILY #21 tab Montelukast [Singulair] 10 mg PO HS 30 Days #30 tab Sertraline [Zoloft] 150 mg PO DAILY #30 tab Tamsulosin [Flomax] 0.4 mg PO DAILY #30 cap Umeclidinium [place] [Incruse Ellipta] 62.5 mcg IH DAILY #1 inh - Follow Up Plan Condition: GOOD Disposition: HOME/ ROUTINE Instructions: Exacerbation of COPD (DC) Additional Instructions: Patient stable for discharge as per Dr. Shafer. Patient to continue his home medications and take a Medrol dose pack. Patient to follow up with Dr. Gonzalez within one week. Patient should return to ED if symptoms return. Patient explained instructions who understands and agrees. Referrals: Dino Gonzalez MD [Staff Provider] -
== END 2018-06-27 08:58 | disposition home or self-care (01) | DRG 88 ==
LOC: C.ER 16:57 → C.9E 18:13 → INTOOBSV 18:13 → OBSVTOIN 18:13 → C.3T 19:21 → OBSVTOIN 06-24 09:34
PROVIDERS: ADMIT Internal Medicine Pulmonary Disease; ATTEND Internal Medicine Pulmonary Disease
PROC: HZ2ZZZZ Detoxification Services for Substance Abuse Treatment (ICD-10-PCS; principal; 2018-06-24)
DX: J44.1 Chronic obstructive pulmonary disease with (acute) exacerbation (principal); F10.230 Alcohol dependence with withdrawal, uncomplicated; Y90.6 Blood alcohol level of 120-199 mg/100 ml; F32.9 Major depressive disorder, single episode, unspecified; I10 Essential (primary) hypertension; K21.9 Gastro-esophageal reflux disease without esophagitis; G89.29 Other chronic pain; N40.0 Benign prostatic hyperplasia without lower urinary tract symptoms; F17.210 Nicotine dependence, cigarettes, uncomplicated; D72.829 Elevated white blood cell count, unspecified; T38.0X5A Adverse effect of glucocorticoids and synthetic analogues, initial encounter

== ENCOUNTER 2018-07-03 20:49 | Inpatient (IN) | payer MEDICAID ==
[2018-07-03 20:49] VITALS: BMI 18.8
--- NOTE | 2018-07-03 21:15 | C.PDOC ---
History Of Present Illness 58 y/o male, with Hx of COPD, BIBA to the ER complaining of SOB for a couple days.The patient admits to smoking a pack of cigarettes a day. He is speaking in 4-5 word sentences in the ED. The patient denies an chest pain, fever or chills. Time Seen by Provider: 07/03/18 21:14 Chief Complaint (Nursing): Shortness Of Breath History Per: Patient History/Exam Limitations: no limitations Onset/Duration Of Symptoms: Days Current Symptoms Are (Timing): Still Present Initiating Event: Other (Smoking) Quality: Aching Exacerbating Factor(s): denies: Coughing Current Respiratory Medications: Other (Nebulizer treatment) Severity: Mild Pain Scale Rating Of: 2 Associated Symptoms: denies: Fever, Chills, Chest Pain Recent travel outside of the [place]: No Additional History Per: EMS Past Medical History Reviewed: Historical Data, Nursing Documentation, Vital Signs Vital Signs: Last Vital Signs Temp 97.8 F 07/03/18 20:56 Pulse 102 H 07/03/18 20:56 Resp 18 07/03/18 23:04 BP 146/87 07/03/18 20:56 Pulse Ox 96 07/03/18 22:43 - Medical History PMH: Anxiety, Asthma, Bronchitis, COPD, Depression, Gastrointestinal Ulcer, HTN , Pneumonia Denies: HIV, Chronic Kidney Disease, Seizures, Sexually Transmitted Disease Surgical History: Appendectomy, Tonsillectomy - [facility] Procedures CONTR ABD ARTERIOGRM NEC (05/20/07) DETOXIFICATION SERVICES FOR SUBSTANCE ABUSE TREATMENT (06/24/18) ESOPHAGOGASTRODUODENOSCOPY [EGD] W/CLOSED BIOPSY (05/20/07) EXCISION OF LOWER ESOPHAGUS, ENDO, DIAGN (05/21/17) EXTIRPATION OF MATTER FROM LOWER ESOPHAGUS, ENDO (05/21/17) [employer] FIELD COORDINATOR FOR SUBSTANCE ABUSE TREATMENT, PSYCHOEDUCATION (05/05/18) [employer] FIELD COORDINATOR FOR SUBSTANCE ABUSE, COGNITIVE BEHAVIORAL (05/05/18) GROUP PSYCHOTHERAPY (05/05/18) INDIV [employer] FIELD COORDINATOR FOR SUBSTANCE ABUSE TREATMENT, PSYCHOEDUCATION (01/14/17) [employer] FIELD COORDINATOR FOR SUBSTANCE ABUSE, COGNITIVE BEHAVIORAL (01/14/17) INDIV PSYCHOTHERAPY FOR SUBSTANCE ABUSE TREATMENT, SUPPORT (05/05/18) INDIV PSYCHOTHERAPY FOR SUBSTANCE ABUSE, COGNITIV BEHAVIORAL (05/05/18) INDIV PSYCHOTHERAPY FOR SUBSTANCE ABUSE, PSYCHOEDUCATION (05/05/18) INDIVIDUAL PSYCHOTHERAPY, COGNITIVE-BEHAVIORAL (05/05/18) INDIVIDUAL PSYCHOTHERAPY, SUPPORTIVE (05/05/18) INJECT/INFUSE NEC (03/20/12) MEDICATION MANAGEMENT (03/12/17) MEDS MGMT FOR SUBSTANCE ABUSE TREATMENT, OTH REPL MED (03/12/17) Family History: States: Unknown Family Hx - Social History Hx Tobacco Use: Yes Hx Alcohol Use: Yes Hx Substance Use: Yes - Immunization History Hx Tetanus Toxoid Vaccination: Yes Hx Influenza Vaccination: Yes Hx Pneumococcal Vaccination: Yes Review Of Systems Constitutional: Negative for: Fever, Chills ENT: Negative for: Nose Congestion, Throat Swelling Cardiovascular: Negative for: Chest Pain Respiratory: Positive for: Shortness of Breath, Wheezing Gastrointestinal: Negative for: Nausea, Vomiting Physical Exam - Physical Exam Appears: Non-toxic, No Acute Distress Skin: Warm, Dry, Rash Head: Normacephalic Eye(s): bilateral: Normal Inspection Oral Mucosa: Dry Neck: Trachea Midline, Supple Chest: Symmetrical Cardiovascular: Rhythm Regular Respiratory: No Rales, Rhonchi (at the bases), Wheezing (scattered) Gastrointestinal/Abdominal: Soft, No Tenderness, No Distention Back: Normal Inspection Extremity: Normal ROM Extremity: Bilateral: Atraumatic, Normal Color And Temperature Pulses: Left Dorsalis Pedis: Normal, Right Dorsalis Pedis: Normal Neurological/Psych: Oriented x3 Gait: Steady ED Course And Treatment - Laboratory Results Result Diagrams: 07/03/18 22:13 07/03/18 22:13 ECG: Interpreted By Me, Viewed By Me ECG Rhythm: Sinus Rhythm (100), Nonspecific Changes (occ pvc's) O2 Sat by Pulse Oximetry: 96 (RA) Pulse Ox Interpretation: Normal - Radiology CXR: Interpreted by Me, Viewed By Me CXR Interpretation: Yes: COPD. No: Infiltrates, Fracture, Pnemothorax Progress Note: Arterial blood gas shock panel, EKG, CMP, Magnesium Stat, CBC, PTT, and PT and Chest X-Ray odered. Medications given include SOLU-Medrol (125 mg IV), Duoneb (3ml), and Iv Fluids. Respiratory treatments administered include Nebulizer treatment and peak flow pre/post Tx BID. Critical Care Time - Critical Care Note Total Time (in mins): 30 Documented critical care: time excludes all time spent performing seperately billable procedures. Disposition Discussed With Dr.: Dino Gonzalez Comment: accepted the pt on his service and took over the care at 11:24 PM Doctor Will See Patient In The: ED Counseled Patient/Family Regarding: Studies Performed, Diagnosis - Disposition Disposition: HOSPITALIZED Disposition Time: 21:15 Condition: FAIR Forms: [facility] (Greenlandic) - POA Present On Arrival: Poor Glycemic Control - Clinical Impression Clinical Impression: COPD exacerbation, COPD exacerbation, Dyspnea - PA / HEALTH SERVICES RN / Resident Statement MD/DO has reviewed & agrees with the documentation as recorded. - Scribe Statement The provider has reviewed the documentation as recorded by the Scribe (Silvia Balderas) Provider Attestation: All medical record entries made by the Scribe were at my direction and personally dictated by me. I have reviewed the chart and agree that the record accurately reflects my personal performance of the history, physical exam, medical decision making, and the department course for this patient. I have also personally directed, reviewed, and agree with the discharge instructions and disposition. Decision To Admit - Pt Status Changed To: Hospital Disposition Of: Inpatient - Admit Certification Admit to Inpatient:: After my assessment, the patient will require hospitalization for at least two midnights. This is because of the severity of symptoms shown, intensity of services needed, and/or the medical risk in this patient being treated as an outpatient. - InPatient: Physician Admission Certification: I certify that this patient requires 2 or more midnights of care for the following reason:: After my assessment, the patient will require hospitalization for at least two midnights. This is because of the severity of symptoms shown, intensity of services needed, and/or the medical risk in this patient being treated as an outpatient. - . Bed Request Type: Regular Admitting Physician: Dino Gonzalez Patient Diagnosis: COPD exacerbation, COPD exacerbation, Dyspnea
[2018-07-03] MEDS ORDERED: Albuterol-Ipratrop 3 mg / 0.5 (3 ml) UD ONE ×2 (21:20→22:19)
[2018-07-03] MEDS ORDERED: Sodium Chloride 0.9% 1,000 ML IV ONE (21:30)
[2018-07-03] MEDS: Albuterol-Ipratrop 3 mg / 0.5 (3 ml) UD IH SCH ×3 (21:40→22:00)
[2018-07-03 22:18] LABS: BASO # 0.1 K/uL (0.0-0.2); BASO % 0.5 % (0.0-2.0); EOS % 0.4 % (0.0-4.0); HEMOGLOBIN 11.4 g/dL (12.0-18.0); LYMPH # 1.4 K/uL (1.0-4.3); LYMPH % 12.9 % (20.0-40.0); MEAN CELL VOLUME 93.6 fL (80.0-94.0); MEAN CORPUSCULAR HEMOGLOBIN 32.5 pg (27.0-31.0); MEAN CORPUSCULAR HGB CONC 34.7 g/dL (33.0-37.0); MEAN PLATELET VOLUME 8.2 fL (7.2-11.7); MONO # 0.4 K/uL (0.0-0.8); MONO % 3.6 % (0.0-10.0); NEUT # 9.2 K/uL (1.8-7.0); NEUT % 82.6 % (50.0-75.0); NRBC % 0.1 % (0.0-2.0); RBC 3.52 Mil/uL (4.40-5.90); RED CELL DISTRIBUTION WIDTH 18.2 % (11.5-14.5); WHITE BLOOD COUNT 11.2 K/uL (4.8-10.8)
[2018-07-03] MEDS ORDERED: Sodium Chloride 0.9% 1,000 ML ONE (22:19)
[2018-07-03 22:31] LABS: PROTHROMBIN TIME 11.3 SECONDS (9.7-12.2)
[2018-07-03 22:39] LABS: ALB/GLOB RATIO 1.3 (1.0-2.1); ALBUMIN 3.7 g/dL (3.5-5.0); ALT/SGPT 41 U/L (21-72); AST/SGOT 23 U/L (17-59); BLOOD UREA NITROGEN 14 mg/dL (9-20); GFR AFRICAN-AMERICAN > 60; GFR NON-AFRICAN AMERICAN > 60
[2018-07-03 22:47] LABS: ARTERIAL BLOOD GAS HCO3 29.2 mmol/L (21-28); ARTERIAL BLOOD GAS O2 SAT 99.5 % (95-98); ARTERIAL BLOOD GAS PCO2 42 mm/Hg (35-45); ARTERIAL BLOOD GAS PH 7.46 (7.35-7.45); ARTERIAL BLOOD GAS PO2 143 mm/Hg (80-100); ARTERIAL BLOOD GAS TCO2 31.2 mmol/L (22-28)
--- NOTE | 2018-07-04 07:27 | CP.PCM.PN ---
Subjective - Date & Time of Evaluation Date of Evaluation: 07/04/18 Time of Evaluation: 07:26 - Subjective Subjective: PGY2 Progress Note Dr. Gonzalez Patient seen and examined at bedside. Per nursing, no acute events occurred overnight. Patient reports right hip pain during today's visit. Patient denies any chest pain, shortness of breath, fevers, chills, nausea , vomiting, or any other complaints. 58 y/o male, with Hx of COPD, BIBA to the ER complaining of SOB for a couple days.The patient admits to smoking a pack of cigarettes a day. He is speaking in 4-5 word sentences in the ED. The patient denies an chest pain, fever or chills. Past medical history: copd, bph, depression, gastric ulcer Allergies: Denies Social: Over 20 year pack history. Last cigarette was the day he called the ambulance. Alcohol abuse. Objective - Vital Signs/Intake and Output Vital Signs (last 24 hours): Temp Pulse Resp BP Pulse Ox 97.7 F 78 16 149/85 97 07/03/18 23:33 07/04/18 01:10 07/04/18 01:10 07/04/18 01:10 07/04/18 01:10 - Medications Medications: Current Medications Albuterol/Ipratropium (Duoneb 3 Mg/0.5 Mg (3 Ml) Ud) 3 ml INH RQ4 [facility] Enoxaparin Sodium (Lovenox) 40 mg SC DAILY [facility] Azithromycin 500 mg/ Sodium (Chloride) 250 mls @ 250 mls/hr IVPB DAILY [facility] PRN Reason: Protocol Methylprednisolone (Solu-Medrol) 40 mg IVP Q6H [facility] Mirtazapine (Remeron) 30 mg PO HS [facility] Nicotine (Nicoderm Cq) 1 patch TD DAILY [facility] Pneumococcal Polyvalent Vaccine (Pneumovax 23 Vaccine) 0.5 ml IM .ONCE ONE Stop: 07/06/18 14:01 Sertraline HCl (Zoloft) 150 mg PO DAILY [facility] Tamsulosin HCl (Flomax) 0.4 mg PO DAILY [facility] Zolpidem Tartrate (Ambien) 10 mg PO HS PRN PRN Reason: Insomnia Last Admin: 07/04/18 01:59 Dose: 10 mg - Labs Labs: 07/03/18 22:13 07/03/18 22:13 PT 11.3 SECONDS (9.7-12.2) 07/03/18 22:13 INR 1.0 07/03/18 22:13 APTT 36 SECONDS (21-34) H 07/03/18 22:13 Assessment and Plan - Assessment and Plan (Free Text) Plan: COPD (chronic obstructive pulmonary disease) exacerbation -Chest X ray: no active lung disease -Advair 500/50 1puff INH q12h -Duonebs 3mL INH q4h -Solu Medrol 40mg IVP Q6h -Robitussin 200mg PO q4h prn Medications: Azithromycin 500mg IVPB DAILY (Start: 07/04/18) Hx of Depression -Zoloft 150mg PO daily -Remeron 30mg PO HS Hx of BPH -Flomax 0.4 mg PO daily History of gastric ulcer -Protonix 40mg PO daily Hx of Tobacco Use -Nicotine Patch 14mg/24hr TD daily -Advised/counseled on smoking cessation Insomnia -Ambien 5mg PO HS PRN -[place] 30mg PO HS Fungal rash : Testicles -Lotrisone cream. Apply daily to affected area Prophylactic Measures -Protonix 40mg PO daily -Lovenox 40mg SC daily Management per Dr. Gonzalez.
[2018-07-04] MEDS: Albuterol-Ipratrop 3 mg / 0.5 (3 ml) UD INH SCH ×4 (08:19→19:49)
--- NOTE | 2018-07-04 08:28 | RAD ---
Date of service: 07/03/2018 PROCEDURE: CHEST RADIOGRAPH, 1 VIEW HISTORY: SOB COMPARISON: 06/12/2018. FINDINGS: LUNGS: The lungs are well inflated and clear. PLEURA: No pneumothorax or pleural fluid seen. CARDIOVASCULAR: Normal. OSSEOUS STRUCTURES: No significant abnormalities. VISUALIZED UPPER ABDOMEN: Normal. OTHER FINDINGS: None. IMPRESSION: No active pulmonary disease.
[2018-07-04] MEDS: MethylPREDNISolone 40 mg Vial IVP SCH ×3 (09:43→21:28)
[2018-07-04] MEDS: Enoxaparin 40 mg Syringe SC SCH (09:44)
[2018-07-04] MEDS: Azithromycin 500 MG in Sodium Chloride 0.9% 250 ML IVPB SCH (11:05)
[2018-07-04] MEDS: guaiFENesin 100 mg/5 ml Syrup UD PO PRN ×2 (15:54→21:28)
[2018-07-04] MEDS: Pantoprazole 40 mg EC Tab PO SCH (15:55)
[2018-07-05] MEDS: Albuterol-Ipratrop 3 mg / 0.5 (3 ml) UD INH SCH ×8 (01:33→23:53)
[2018-07-05] MEDS: MethylPREDNISolone 40 mg Vial IVP SCH ×4 (04:24→21:03)
[2018-07-05] MEDS: Pantoprazole 40 mg EC Tab PO SCH (09:13)
[2018-07-05] MEDS: Clotrimazole/Betamethasone Cream(15 gm) TOP SCH (09:13)
[2018-07-05] MEDS: Enoxaparin 40 mg Syringe SC SCH (09:13)
[2018-07-05] MEDS: Azithromycin 500 MG in Sodium Chloride 0.9% 250 ML IVPB SCH (09:22)
[2018-07-05] MEDS: guaiFENesin 100 mg/5 ml Syrup UD PO PRN ×3 (09:30→21:03)
--- NOTE | 2018-07-05 12:43 | CARD ---
APPROVED REPORT Date of service: 07/03/2018 EKG Measurement Heart [id number] <Conclusion> Sinus rhythm with occasional premature ventricular complexes Right atrial enlargement Borderline ECG
[2018-07-06] MEDS: MethylPREDNISolone 40 mg Vial IVP SCH ×4 (03:12→21:15)
[2018-07-06] MEDS: guaiFENesin 100 mg/5 ml Syrup UD PO PRN ×4 (05:58→21:15)
[2018-07-06] MEDS: Albuterol-Ipratrop 3 mg / 0.5 (3 ml) UD INH SCH ×4 (08:25→19:16)
[2018-07-06] MEDS: Pantoprazole 40 mg EC Tab PO SCH (09:04)
[2018-07-06] MEDS: Enoxaparin 40 mg Syringe SC SCH (09:04)
[2018-07-06] MEDS: Clotrimazole/Betamethasone Cream(15 gm) TOP SCH (09:05)
[2018-07-06] MEDS ORDERED: Pneumococcal 23-Valent Vaccine IM ONE (14:00)
[2018-07-06] MEDS: Azithromycin 500 MG in Sodium Chloride 0.9% 250 ML IVPB SCH (16:46)
[2018-07-07] MEDS: Albuterol-Ipratrop 3 mg / 0.5 (3 ml) UD INH SCH ×6 (01:30→23:33)
[2018-07-07] MEDS: MethylPREDNISolone 40 mg Vial IVP SCH ×4 (05:13→21:53)
[2018-07-07] MEDS: guaiFENesin 100 mg/5 ml Syrup UD PO PRN ×3 (05:13→21:59)
--- NOTE | 2018-07-07 08:35 | HP ---
Copied To: Dino Gonzalez MD Attending MD: Dino Gonzalez MD HISTORY OF PRESENT ILLNESS: A 58-year-old male with COPD admitted to the hospital with chief complaint of shortness of breath. Advised admission. Patient is a smoker. Drinks beer. PHYSICAL EXAMINATION: GENERAL: The patient is awake, alert, oriented. distress. VITAL SIGNS: Temperature 98, pulse 90. HEENT: Within normal limits. NECK: Supple. CHEST: Symmetrical. HEART: Regular. ABDOMEN: Soft. EXTREMITIES: No edema. ASSESSMENT AND PLAN: The patient suffers from exacerbation of chronic obstructive pulmonary disease and bronchitis. The patient is to get bed rest, bronchodilator. Dino Gonzalez MD
--- NOTE | 2018-07-07 08:40 | CP.PCM.PN ---
Subjective - Date & Time of Evaluation Date of Evaluation: 07/07/18 Time of Evaluation: 07:05 - Subjective Subjective: PGY3 Progress Note Dr. Gonzalez Patient seen and examined at bedside. Per nursing, no acute events occurred overnight. Reports rash is improving with lotrizone cream. Patient denies any chest pain, shortness of breath, fevers, chills, nausea , vomiting, or any other complaints. Objective - Vital Signs/Intake and Output Vital Signs (last 24 hours): Temp Pulse Resp BP Pulse Ox 97.8 F 98 H 18 147/82 100 07/07/18 07:00 07/07/18 07:00 07/07/18 07:00 07/07/18 07:00 07/07/18 07:00 Intake and Output: 07/07/18 07/07/18 06:59 18:59 Intake Total 800 Output Total 250 Balance 550 - Medications Medications: Current Medications Albuterol/Ipratropium (Duoneb 3 Mg/0.5 Mg (3 Ml) Ud) 3 ml INH RQ4 [facility] Last Admin: 07/07/18 07:29 Dose: 3 ml Betamethasone/Clotrimazole (Lotrisone) 0 gm TOP DAILY [facility] Last Admin: 07/06/18 09:05 Dose: 1 applic Enoxaparin Sodium (Lovenox) 40 mg SC DAILY [facility] Last Admin: 07/06/18 09:04 Dose: 40 mg Guaifenesin (Robitussin) 100 mg PO Q4H PRN PRN Reason: Cough Last Admin: 07/07/18 05:13 Dose: 100 mg Azithromycin 500 mg/ Sodium (Chloride) 250 mls @ 250 mls/hr IVPB DAILY [facility] PRN Reason: Protocol Stop: 07/07/18 10:59 Last Admin: 07/06/18 16:46 Dose: 250 mls/hr Methylprednisolone (Solu-Medrol) 40 mg IVP Q6H [facility] Last Admin: 07/07/18 05:13 Dose: 40 mg Mirtazapine (Remeron) 30 mg PO HS [facility] Last Admin: 07/06/18 21:15 Dose: 30 mg Nicotine (Nicoderm Cq) 1 patch TD DAILY [facility] Last Admin: 07/06/18 09:04 Dose: 1 patch Pantoprazole Sodium (Protonix Ec Tab) 40 mg PO DAILY [facility] Last Admin: 07/06/18 09:04 Dose: 40 mg Sertraline HCl (Zoloft) 150 mg PO DAILY [facility] Last Admin: 07/06/18 09:04 Dose: 150 mg Tamsulosin HCl (Flomax) 0.4 mg PO DAILY [facility] Last Admin: 07/06/18 09:04 Dose: 0.4 mg Zolpidem Tartrate (Ambien) 5 mg PO HS PRN PRN Reason: Insomnia - Labs Labs: 07/03/18 22:13 07/03/18 22:13 PT 11.3 SECONDS (9.7-12.2) 07/03/18 22:13 INR 1.0 07/03/18 22:13 APTT 36 SECONDS (21-34) H 07/03/18 22:13 - Additional Findings Additional findings: - Head Exam Head Exam: ATRAUMATIC, NORMAL INSPECTION - Eye Exam Eye Exam: EOMI, Normal appearance, PERRL Pupil Exam: NORMAL ACCOMODATION, PERRL. absent: Irregular, Unequal - ENT Exam ENT Exam: Mucous Membranes Moist, Normal Oropharynx - Respiratory Exam Respiratory Exam: Clear to Ausculation Bilateral, Prolonged Expiratory Phase ( mild), Wheezes. absent: Respiratory Distress - Cardiovascular Exam Cardiovascular Exam: REGULAR RHYTHM, +S1, +S2 - GI/Abdominal Exam GI & Abdominal Exam: Soft, Normal Bowel Sounds - Extremities Exam Extremities Exam: Full ROM, Normal Inspection. absent: Pedal Edema - Back Exam Back Exam: NORMAL INSPECTION. absent: CVA tenderness (R), paraspinal tenderness - Neurological Exam Neurological Exam: Alert, Awake, Oriented x3 - Psychiatric Exam Psychiatric exam: Normal Affect, Normal Mood - Skin Skin Exam: Dry, Intact -erythema of genital area and inner thighs. Cream applied. Assessment and Plan - Assessment and Plan (Free Text) Assessment: COPD (chronic obstructive pulmonary disease) exacerbation 07/07: patients breathing improving. Likely discharge in 1-2 days. -Chest X ray: no active lung disease -Advair 500/50 1puff INH q12h -Duonebs 3mL INH q4h -Solu Medrol 40mg IVP Q6h -Robitussin 200mg PO q4h prn Medications: Azithromycin 500mg IVPB DAILY (Start: 07/04/18) Hx of Depression -Zoloft 150mg PO daily -Remeron 30mg PO HS Hx of BPH -Flomax 0.4 mg PO daily History of gastric ulcer -Protonix 40mg PO daily Hx of Tobacco Use -Nicotine Patch 14mg/24hr TD daily -Advised/counseled on smoking cessation Insomnia -Ambien 5mg PO HS PRN -Rameron 30mg PO HS Fungal rash : Testicles -Lotrisone cream qD. Apply daily to affected area Prophylactic Measures -Protonix 40mg PO daily -Lovenox 40mg SC daily Disposition: patients breathing improving. Likely discharge 07/08/18. Management per Dr. Gonzalez.
[2018-07-07] MEDS: Clotrimazole/Betamethasone Cream(15 gm) TOP SCH (10:33)
[2018-07-07] MEDS: Pantoprazole 40 mg EC Tab PO SCH (10:33)
[2018-07-07] MEDS: Enoxaparin 40 mg Syringe SC SCH (10:33)
[2018-07-07] MEDS: Azithromycin 500 MG in Sodium Chloride 0.9% 250 ML IVPB SCH (10:37)
[2018-07-07 11:04] LABS: BASO % 0.2 % (0.0-2.0); EOS # 0.1 K/uL (0.0-0.7); EOS % 0.7 % (0.0-4.0); HEMOGLOBIN 9.5 g/dL (12.0-18.0); LYMPH # 0.7 K/uL (1.0-4.3); LYMPH % 3.9 % (20.0-40.0); MEAN CELL VOLUME 94.6 fL (80.0-94.0); MEAN CORPUSCULAR HEMOGLOBIN 30.6 pg (27.0-31.0); MEAN CORPUSCULAR HGB CONC 32.4 g/dL (33.0-37.0); MEAN PLATELET VOLUME 9.7 fL (7.2-11.7); MONO # 0.6 K/uL (0.0-0.8); NEUT # 17.2 K/uL (1.8-7.0); NEUT % 92.2 % (50.0-75.0); NRBC % 0.1 % (0.0-2.0); PLATELET COUNT 206 K/uL (130-400); RBC 3.09 Mil/uL (4.40-5.90); RED CELL DISTRIBUTION WIDTH 18.1 % (11.5-14.5)
[2018-07-07 11:16] LABS: WHITE BLOOD COUNT 18.7 K/uL (4.8-10.8)
[2018-07-07 11:35] LABS: ALB/GLOB RATIO 1.4 (1.0-2.1); ALBUMIN 3.3 g/dL (3.5-5.0); ALT/SGPT 44 U/L (21-72); AST/SGOT 38 U/L (17-59); BLOOD UREA NITROGEN 21 mg/dL (9-20); CALCIUM 8.7 mg/dl (8.6-10.4); GFR AFRICAN-AMERICAN > 60; GFR NON-AFRICAN AMERICAN > 60
[2018-07-07 12:02] LABS: ANISOCYTOSIS MODERATE; BANDS 4 % (0-2); LYMPHOCYTE 2 % (20-40); METAMYELOCYTE 1 % (0-0); MONOCYTE 3 % (0-10); NEUTROPHIL 90 % (50-75); PLATELET ESTIMATE NORMAL (NORMAL); TOTAL CELLS COUNTED 100
[2018-07-08 00:54] VITALS: TEMP 97.9
[2018-07-08] MEDS: Albuterol-Ipratrop 3 mg / 0.5 (3 ml) UD INH SCH ×2 (03:15→07:39)
[2018-07-08] MEDS: guaiFENesin 100 mg/5 ml Syrup UD PO PRN ×2 (04:20→09:49)
[2018-07-08] MEDS: MethylPREDNISolone 40 mg Vial IVP SCH ×2 (04:20→09:49)
--- NOTE | 2018-07-08 07:26 | CP.PCM.PN ---
Subjective - Date & Time of Evaluation Date of Evaluation: 07/08/18 Time of Evaluation: 07:35 - Subjective Subjective: PGY3 Progress Note Dr. Gonzalez Patient seen and examined at bedside. No acute events occurred overnight. Patient reports that the Lotrizone cream continues to help his rash, less erythema reported today. Patient denies any chest pain, shortness of breath, fevers, chills, nausea , vomiting, or any other complaints. He states he is ready to go home. -- Patient is stable for discharge per Dr. Gonzalez. Patient should resume all medications as outlined in this document. Additionally, patient should take the new medications listed below (scripts provided). 1. Please make an appointment and follow up with your Primary Doctor within one week of discharge. 2. Please continue to apply the Lotrisone cream to your genitals and the affected area for up to 7 days until your rash clears. Patient should return to ED immediately if symptoms return or worsen. Instructions discussed with patient who understood and agreed. Newly prescribed medications: Flomax 0.4mg PO qD #30 Lotrisone cream top qD #1 tube (apply for 7 days) Objective - Vital Signs/Intake and Output Vital Signs (last 24 hours): Temp Pulse Resp BP Pulse Ox 97.9 F 98 H 20 152/82 H 96 07/08/18 00:00 07/08/18 00:00 07/08/18 00:00 07/08/18 00:00 07/08/18 00:00 Intake and Output: 07/08/18 07/08/18 06:59 18:59 Intake Total 450 Balance 450 - Medications Medications: Current Medications Albuterol/Ipratropium (Duoneb 3 Mg/0.5 Mg (3 Ml) Ud) 3 ml INH RQ4 [facility] Last Admin: 07/08/18 03:15 Dose: Not Given Betamethasone/Clotrimazole (Lotrisone) 0 gm TOP DAILY [facility] Last Admin: 07/07/18 10:33 Dose: 1 applic Enoxaparin Sodium (Lovenox) 40 mg SC DAILY [facility] Last Admin: 07/07/18 10:33 Dose: 40 mg Guaifenesin (Robitussin) 100 mg PO Q4H PRN PRN Reason: Cough Last Admin: 07/08/18 04:20 Dose: 100 mg Methylprednisolone (Solu-Medrol) 40 mg IVP Q6H [facility] Last Admin: 07/08/18 04:20 Dose: 40 mg Mirtazapine (Remeron) 30 mg PO HS [facility] Last Admin: 07/07/18 21:53 Dose: 30 mg Nicotine (Nicoderm Cq) 1 patch TD DAILY [facility] Last Admin: 07/07/18 10:34 Dose: 1 patch Pantoprazole Sodium (Protonix Ec Tab) 40 mg PO DAILY [facility] Last Admin: 07/07/18 10:33 Dose: 40 mg Sertraline HCl (Zoloft) 150 mg PO DAILY [facility] Last Admin: 07/07/18 10:33 Dose: 150 mg Tamsulosin HCl (Flomax) 0.4 mg PO DAILY [facility] Last Admin: 07/07/18 10:33 Dose: 0.4 mg Zolpidem Tartrate (Ambien) 5 mg PO HS PRN PRN Reason: Insomnia - Labs Labs: 07/07/18 10:55 07/07/18 10:55 PT 11.3 SECONDS (9.7-12.2) 07/03/18 22:13 INR 1.0 07/03/18 22:13 APTT 36 SECONDS (21-34) H 07/03/18 22:13 - Additional Findings Additional findings: - Head Exam Head Exam: ATRAUMATIC, NORMAL INSPECTION - Eye Exam Eye Exam: EOMI, Normal appearance, PERRL Pupil Exam: NORMAL ACCOMODATION, PERRL. absent: Irregular, Unequal - ENT Exam ENT Exam: Mucous Membranes Moist, Normal Oropharynx - Respiratory Exam Respiratory Exam: Clear to Ausculation Bilateral, Prolonged Expiratory Phase ( mild, improved), Wheezes (mild, improved). absent: Respiratory Distress - Cardiovascular Exam Cardiovascular Exam: REGULAR RHYTHM, +S1, +S2 - GI/Abdominal Exam GI & Abdominal Exam: Soft, Normal Bowel Sounds - Extremities Exam Extremities Exam: Full ROM, Normal Inspection. absent: Pedal Edema - Back Exam Back Exam: NORMAL INSPECTION. absent: CVA tenderness (R), paraspinal tenderness - Neurological Exam Neurological Exam: Alert, Awake, Oriented x3 - Psychiatric Exam Psychiatric exam: Normal Affect, Normal Mood - Skin Skin Exam: Dry, Intact -erythema of genital area and inner thighs. Cream applied (improving) Assessment and Plan - Assessment and Plan (Free Text) Assessment: COPD (chronic obstructive pulmonary disease) exacerbation 07/07-07/08: patients breathing markedly improved. Breathing comfortably. -Chest X ray: no active lung disease -Advair 500/50 1puff INH q12h -Duonebs 3mL INH q4h -Solu Medrol 40mg IVP Q6h -Robitussin 200mg PO q4h prn Medications: Azithromycin 500mg IVPB DAILY (Start: 07/04/18) Hx of Depression -Zoloft 150mg PO daily -Remeron 30mg PO HS Hx of BPH -Flomax 0.4 mg PO daily History of gastric ulcer -Protonix 40mg PO daily Hx of Tobacco Use -Nicotine Patch 14mg/24hr TD daily -Advised/counseled on smoking cessation Insomnia -Ambien 5mg PO HS PRN -Rameron 30mg PO HS Fungal rash : Testicles -Lotrisone cream qD. Apply daily to affected area Prophylactic Measures -Protonix 40mg PO daily -Lovenox 40mg SC daily Disposition: patients breathing improving. Discharge 07/08/18. Management per Dr. Gonzalez. -- Patient is stable for discharge per Dr. Gonzalez. Patient should resume all medications as outlined in this document. Additionally, patient should take the new medications listed below (scripts provided). 1. Please make an appointment and follow up with your Primary Doctor within one week of discharge. 2. Please continue to apply the Lotrisone cream to your genitals and the affected area for up to 7 days until your rash clears. Patient should return to ED immediately if symptoms return or worsen. Instructions discussed with patient who understood and agreed. Newly prescribed medications: Flomax 0.4mg PO qD #30 Lotrisone cream top qD #1 tube (apply for 7 days)
[2018-07-08 08:21] VITALS: BP 168/98; PULSE 90; RESP 18; O2SAT 100
[2018-07-08] MEDS: Pantoprazole 40 mg EC Tab PO SCH (09:49)
[2018-07-08] MEDS: Enoxaparin 40 mg Syringe SC SCH (09:51)
[2018-07-08] MEDS: Clotrimazole/Betamethasone Cream(15 gm) TOP SCH (09:51)
== END 2018-07-08 11:49 | disposition home or self-care (01) | DRG 88 ==
LOC: C.ER 20:49 → SUPCPDRO 20:49 → C.9E 23:23 → C.5S 07-04 00:58
PROVIDERS: ADMIT Internal Medicine Pulmonary Disease; ATTEND Internal Medicine Pulmonary Disease
DX: J44.1 Chronic obstructive pulmonary disease with (acute) exacerbation (principal); I10 Essential (primary) hypertension; F10.10 Alcohol abuse, uncomplicated; F17.210 Nicotine dependence, cigarettes, uncomplicated; N40.0 Benign prostatic hyperplasia without lower urinary tract symptoms; G47.00 Insomnia, unspecified

== ENCOUNTER 2018-07-14 17:35 | Inpatient (IN) | payer MEDICAID ==
[2018-07-14 17:36] VITALS: BMI 18.8
[2018-07-14] MEDS ORDERED: Albuterol-Ipratrop 3 mg / 0.5 (3 ml) UD INH STA (18:36)
[2018-07-14] MEDS ORDERED: Albuterol-Ipratrop 3 mg / 0.5 (3 ml) UD ONE (18:51)
[2018-07-14 19:08] LABS: EOS % 0.1 % (0.0-4.0); HEMOGLOBIN 8.7 g/dL (12.0-18.0); LYMPH # 2.4 K/uL (1.0-4.3); LYMPH % 21.3 % (20.0-40.0); MEAN CORPUSCULAR HEMOGLOBIN 30.3 pg (27.0-31.0); MEAN PLATELET VOLUME 7.4 fL (7.2-11.7); MONO # 0.5 K/uL (0.0-0.8); MONO % 4.9 % (0.0-10.0); NEUT # 8.3 K/uL (1.8-7.0); NEUT % 73.7 % (50.0-75.0); RBC 2.88 Mil/uL (4.40-5.90); RED CELL DISTRIBUTION WIDTH 18.1 % (11.5-14.5); WHITE BLOOD COUNT 11.2 K/uL (4.8-10.8)
[2018-07-14 19:09] LABS: MEAN CELL VOLUME 91.7 fL (80.0-94.0)
[2018-07-14 19:11] LABS: URINE BILIRUBIN NEGATIVE (NEGATIVE); URINE BLOOD NEGATIVE (NEGATIVE); URINE CLARITY Clear (Clear); URINE COLOR Straw (YELLOW); URINE GLUCOSE (UA) NORMAL (Normal); URINE LEUKOCYTE ESTERASE NEG Leu/uL (Negative); URINE PROTEIN NEGATIVE (NEGATIVE); URINE UROBILINOGEN NORMAL mg/dL (0.2-1.0)
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
[2018-07-14 19:32] LABS: ALB/GLOB RATIO 1.3 (1.0-2.1); ALBUMIN 3.2 g/dL (3.5-5.0); ALT/SGPT 37 U/L (21-72); AST/SGOT 16 U/L (17-59); BARBITURATES, UR NEGATIVE (NEGATIVE); BENZODIAZEPINES, UR NEGATIVE (NEGATIVE); BLOOD UREA NITROGEN 10 mg/dL (9-20); CALCIUM 7.8 mg/dl (8.6-10.4); GFR NON-AFRICAN AMERICAN > 60; OPIATES, UR NEGATIVE (NEGATIVE); PHENCYCLIDINE, UR NEGATIVE (NEGATIVE)
--- NOTE | 2018-07-14 21:05 | PCM.BM ---
<SharathCharlotte - Last Filed: 07/14/18 21:04> Treatment Plan Problems - Problems identified on initial assessmt Potential for alcohol withdrawal Date Initiated: 07/14/18 Time Initiated: 21:04 Assessment reference: NA Status: Active Treatment assets and liabiliti Patient Assests: cooperative, insightful, self-reliant, ADL independent, negotiates basic needs, cognitively intact Patient Liabilities: substance abuse, medical problems - Milieu Protocol Maintain good personal hygiene: daily Encourage regular showers, daily Remind patient to perform daily oral care, daily Assist patient to perform ADL's Conduct patient checks and document Observation sheet: Q15 minutes Maintain personal safety: every shift Educate patient to report safety concerns to staff, every shift Monitor environment for contraband/sharps Medication safety: Monitor for expected outcome, potential side effects: every shift, Assess barriers to learning: every shift, Assess readiness for medication education: every shift <Esequiel Alonzo - Last Filed: 07/15/18 14:49> - Diagnosis (1) Alcohol use disorder Status: Chronic Interventions: 07/15/18 14:49 * Assess 7x/week regarding severity of withdrawal * Educate regarding risks, benefits, side effects and alternatives of medications * Use Motivational Interviewing for abstinence * Use CBT for relapse prevention * Medication management for withdrawal symptoms * Encourage medication assisted treatment *
[2018-07-14] MEDS ORDERED: Albuterol HFA 90 mcg/actuation (8 g) INH PRN (21:48)
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
[2018-07-15] MEDS: Fluticasone-Salmeterol 500-50mcg Diskus INH SCH (20:36)
[2018-07-16] MEDS: Fluticasone-Salmeterol 500-50mcg Diskus INH SCH ×2 (08:45→19:00)
[2018-07-16] MEDS: guaiFENesin 200 mg/10 ml Syrup UD PO PRN (14:03)
--- NOTE | 2018-07-16 15:08 | PCM.PYCHPN ---
Psychiatric Progress Note - Psychiatric Progress Note Patient seen today, length of contact: 17 min Patient Chief Complaint: "I feel restless" Problems Identified/Issues Discussed: The pt is seen, chart reviewed, case discussed with staff. He says that his withdrawal symptoms are better but still has mild tremors and feels restless. Pt is complaining of pus draining from his right ear and a cough that he has had for a couple of weeks now. Has no other complaints at this time The pt is compliant with medications and reports no side-effects. Symptoms are improving but needs more time to stabilize. Pt attends groups and activities. Support given, psycho-education provided. After care discussed. Mental Status Examination - Cognitive Function Orientation: Person, Place, Situation, Time Memory: Intact Attention: WNL Concentration: WNL Association: WNL Fund of Knowledge: WNL - Mood Mood: Depressed, Anxious - Affect Affect: Constricted, Blunted - Speech Speech: Appropriate - Formal Thought Process Formal Thought Process: No Impairment - Suicidal Ideation Suicidal Ideation: No - Homicidal Ideation Homicidal Ideation: No Goal/Treatment Plan - Goal/Treatment Plan Progress Toward Problem(s) and Goals/Treatment Plan: Continue medications Support and psychoeducation daily Attend groups and activities daily After care planning by GABE 17 min
[2018-07-17 06:25] VITALS: RESP 18
[2018-07-17] MEDS: Fluticasone-Salmeterol 500-50mcg Diskus INH SCH ×2 (08:15→20:37)
[2018-07-17] MEDS: guaiFENesin 200 mg/10 ml Syrup UD PO PRN ×2 (08:16→17:05)
[2018-07-18 06:21] VITALS: TEMP 97.8
[2018-07-18] MEDS: Fluticasone-Salmeterol 500-50mcg Diskus INH SCH (08:11)
[2018-07-18] MEDS: guaiFENesin 200 mg/10 ml Syrup UD PO PRN (08:11)
[2018-07-18 08:43] VITALS: BP 125/85; PULSE 102; O2SAT 96
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
--- NOTE | 2018-07-18 15:49 | PCM.PYCHPN ---
Psychiatric Progress Note - Psychiatric Progress Note Patient seen today, length of contact: 15 min Patient Chief Complaint: "I'm tired" Problems Identified/Issues Discussed: The pt is seen, chart reviewed, case discussed with staff. The pt is compliant with medications and reports no side-effects. Symptoms are improving but needs more time to stabilize. Pt attends groups and activities. Support given, psycho-education provided. After care discussed. Medication Change: Yes (detox changes daily) Medical Record Reviewed: Yes Mental Status Examination - Cognitive Function Orientation: Person, Place, Situation, Time Memory: Intact Attention: WNL Concentration: Poor Association: WNL Fund of Knowledge: WNL - Mood Mood: Depressed, Anxious - Affect Affect: Constricted, Blunted - Speech Speech: Appropriate - Formal Thought Process Formal Thought Process: No Impairment - Suicidal Ideation Suicidal Ideation: No - Homicidal Ideation Homicidal Ideation: No Goal/Treatment Plan - Goal/Treatment Plan Need for Continued Stay: Discharge may exacerbated symptoms, Severe functional impairment Progress Toward Problem(s) and Goals/Treatment Plan: Continue medications Support and psychoeducation daily Attend groups and activities daily Referred to [facility] in [place] and accepted Estimated Date of D/C: 07/18/18
== END 2018-07-18 11:00 | disposition home or self-care (01) | DRG 750 ==
LOC: C.ER 17:35 → C.7D 20:08
PROC: HZ2ZZZZ Detoxification Services for Substance Abuse Treatment (ICD-10-PCS; principal; 2018-07-14)
PROC: HZ56ZZZ Individual Psychotherapy for Substance Abuse Treatment, Psychoeducation (ICD-10-PCS; 2018-07-14)
PROC: HZ59ZZZ Individual Psychotherapy for Substance Abuse Treatment, Supportive (ICD-10-PCS; 2018-07-14)
PROC: GZHZZZZ Group Psychotherapy (ICD-10-PCS; 2018-07-14)
DX: F10.239 Alcohol dependence with withdrawal, unspecified (principal); F33.1 Major depressive disorder, recurrent, moderate; J44.9 Chronic obstructive pulmonary disease, unspecified; F12.90 Cannabis use, unspecified, uncomplicated; F17.210 Nicotine dependence, cigarettes, uncomplicated; F41.9 Anxiety disorder, unspecified; I10 Essential (primary) hypertension; Z59.0 Homelessness; Z87.11 Personal history of peptic ulcer disease

== ENCOUNTER 2018-08-04 09:03 | Inpatient (IN) | payer MEDICAID ==
[2018-08-04 09:03] VITALS: BMI 18.8
[2018-08-04] MEDS ORDERED: Albuterol 0.083% Inhal Sol (2.5 mg/3 mL) UD ONE ×2 (09:17→11:27)
[2018-08-04] MEDS ORDERED: Albuterol-Ipratrop 3 mg / 0.5 (3 ml) UD INH STA ×2 (09:30→09:37)
[2018-08-04] MEDS ORDERED: Albuterol 0.083% Inhal Sol (2.5 mg/3 mL) UD IH STA ×2 (09:37→11:14)
[2018-08-04 09:59] LABS: BASO # 0.1 K/uL (0.0-0.2); BASO % 0.6 % (0.0-2.0); EOS # 0.2 K/uL (0.0-0.7); EOS % 1.7 % (0.0-4.0); LYMPH # 1.9 K/uL (1.0-4.3); LYMPH % 18.8 % (20.0-40.0); MEAN CORPUSCULAR HEMOGLOBIN 27.9 pg (27.0-31.0); MEAN CORPUSCULAR HGB CONC 32.4 g/dL (33.0-37.0); MEAN PLATELET VOLUME 8.3 fL (7.2-11.7); MONO # 0.8 K/uL (0.0-0.8); MONO % 7.9 % (0.0-10.0); NEUT # 7.1 K/uL (1.8-7.0); NRBC % 0.1 % (0.0-2.0); RBC 4.07 Mil/uL (4.40-5.90)
[2018-08-04] MEDS ORDERED: Albuterol-Ipratrop 3 mg / 0.5 (3 ml) UD ONE ×2 (10:00→16:43)
[2018-08-04 10:10] LABS: HEMOGLOBIN 11.4 g/dL (12.0-18.0); MEAN CELL VOLUME 86.2 fL (80.0-94.0)
[2018-08-04 10:21] LABS: B-TYPE NATRIURETIC PEPTIDE 894 pg/mL (0-900); CK-MB 1.58 ng/mL (0.0-3.38)
--- NOTE | 2018-08-04 10:24 | RAD ---
Date of service: 08/04/2018 HISTORY: sob COMPARISON: 07/03/2018. FINDINGS: LUNGS: The lungs are hyperinflated and there is peribronchial thickening with chronic changes in both lungs. No focal consolidation. PLEURA: No significant pleural effusion identified, no pneumothorax apparent. CARDIOVASCULAR: Normal. OSSEOUS STRUCTURES: No significant abnormalities. VISUALIZED UPPER ABDOMEN: Normal. OTHER FINDINGS: None. IMPRESSION: No acute findings. COPD.
[2018-08-04 10:58] LABS: ALB/GLOB RATIO 1.4 (1.0-2.1); ALBUMIN 4.2 g/dL (3.5-5.0); ALT/SGPT 30 U/L (21-72); AST/SGOT 23 U/L (17-59); BLOOD UREA NITROGEN 6 mg/dL (9-20); CALCIUM 9.1 mg/dl (8.6-10.4); GFR NON-AFRICAN AMERICAN > 60
--- NOTE | 2018-08-04 11:01 | C.PDOC ---
History Of Present Illness 58 y/o male with history of COPD presents to ED with c/o sob and wheezing associated with cough 3-4 days. Patient reports dizziness and pleuritic chest pain since today. patient denies abdominal pain, headache, fever, chills or any other complaints at this time. Time Seen by Provider: 08/04/18 09:09 Chief Complaint (Nursing): Shortness Of Breath History Per: Patient History/Exam Limitations: no limitations Onset/Duration Of Symptoms: Days Current Symptoms Are (Timing): Still Present Past Medical History Reviewed: Historical Data, Nursing Documentation, Vital Signs - Medical History PMH: Anxiety, Asthma, Bronchitis, COPD, Depression, Gastrointestinal Ulcer, HTN , Pneumonia Surgical History: Appendectomy, Tonsillectomy - [facility] Procedures CONTR ABD ARTERIOGRM NEC (05/20/07) DETOXIFICATION SERVICES FOR SUBSTANCE ABUSE TREATMENT (07/14/18) ESOPHAGOGASTRODUODENOSCOPY [EGD] W/CLOSED BIOPSY (05/20/07) EXCISION OF LOWER ESOPHAGUS, ENDO, DIAGN (05/21/17) EXTIRPATION OF MATTER FROM LOWER ESOPHAGUS, ENDO (05/21/17) GROUP COMPUTER SOFTWARE ENGINEER FOR SUBSTANCE ABUSE TREATMENT, PSYCHOEDUCATION (05/05/18) GROUP COMPUTER SOFTWARE ENGINEER FOR SUBSTANCE ABUSE, COGNITIVE BEHAVIORAL (05/05/18) GROUP PSYCHOTHERAPY (07/14/18) INDIV COMPUTER SOFTWARE ENGINEER FOR SUBSTANCE ABUSE TREATMENT, PSYCHOEDUCATION (01/14/17) INDIV COMPUTER SOFTWARE ENGINEER FOR SUBSTANCE ABUSE, COGNITIVE BEHAVIORAL (01/14/17) INDIV PSYCHOTHERAPY FOR SUBSTANCE ABUSE TREATMENT, SUPPORT (07/14/18) INDIV PSYCHOTHERAPY FOR SUBSTANCE ABUSE, COGNITIV BEHAVIORAL (05/05/18) INDIV PSYCHOTHERAPY FOR SUBSTANCE ABUSE, PSYCHOEDUCATION (07/14/18) INDIVIDUAL PSYCHOTHERAPY, COGNITIVE-BEHAVIORAL (05/05/18) INDIVIDUAL PSYCHOTHERAPY, SUPPORTIVE (05/05/18) INJECT/INFUSE NEC (03/20/12) MEDICATION MANAGEMENT (03/12/17) MEDS MGMT FOR SUBSTANCE ABUSE TREATMENT, OTH REPL MED (03/12/17) Family History: States: No Known Family Hx - Social History Hx Tobacco Use: Yes Hx Alcohol Use: Yes Hx Substance Use: No - Immunization History Hx Tetanus Toxoid Vaccination: Yes Hx Influenza Vaccination: Yes Hx Pneumococcal Vaccination: Yes Review Of Systems Constitutional: Negative for: Fever, Chills Cardiovascular: Positive for: Chest Pain Respiratory: Positive for: Shortness of Breath, Wheezing Gastrointestinal: Negative for: Nausea, Vomiting Neurological: Positive for: Dizziness. Negative for: Headache Physical Exam - Physical Exam Appears: Non-toxic, Other (In moderate distress, speaking in short sentences) Skin: Warm, Dry, No Rash Head: Atraumatic, Normacephalic Eye(s): bilateral: Normal Inspection Oral Mucosa: Moist Neck: Normal ROM, Supple Cardiovascular: Rhythm Regular, Other (Tachycardic) Respiratory: No Accessory Muscle Use, No Rales, No Rhonchi, Wheezing (bilateral diffuse expiratory) Gastrointestinal/Abdominal: Soft, No Tenderness, No Guarding, No Rebound Extremity: Pedal Edema (+1 bilateral), Capillary Refill (<2 seconds), No Deformity Neurological/Psych: Oriented x3, Normal Speech, Normal Cognition ED Course And Treatment - Laboratory Results Result Diagrams: 08/04/18 09:50 08/04/18 09:50 ECG: Interpreted By Me, Viewed By Me ECG Rhythm: Sinus Rhythm Rate From EC (BPM) O2 Sat by Pulse Oximetry: 100 (RA) Progress Note: Blood work, EKG ordered. Solumedrol and Neb treatment administered. Pending re evaluation Disposition - Disposition - Scribe Statement The provider has reviewed the documentation as recorded by the Scribkeri Mckeon All medical record entries made by the Scribe were at my direction and personally dictated by me. I have reviewed the chart and agree that the record accurately reflects my personal performance of the history, physical exam, medical decision making, and the department course for this patient. I have also personally directed, reviewed, and agree with the discharge instructions and disposition.
--- NOTE | 2018-08-04 13:40 | CP.PCM.PN ---
Subjective - Date & Time of Evaluation Date of Evaluation: 08/04/18 Time of Evaluation: 13:38 - Subjective Subjective: Medicine progress note for Dr. Gonzalez's service: Patient is a 58 year old male with past medical history of COPD, depression, tobacco dependence who presents to the ER with complaint of dyspnea and cough. Patient states he was working at [employer] this morning and started to feel dizzy. Patient states he sat down and felt short of breath and faint and requested ambulance to bring him to the hospital. Patient also reports 3-4 days of productive cough. He reports clear sputum and admits to rhinorrhea. Patient denies fever or chills. He denies chest pain. He denies sick contacts. He reports compliance with all medications since last hospital discharge but states he has not been to see PMD yet. He reports he is cutting down on tobacco use and currently smokes 1.5 ppd. Patient reports he was dyspneic initially on presentation to ER but is comfortable after nebulizer treatments. Patient speaking in full sentences without difficulty. PMD: Lisa PMHx: COPD, depression, alcohol abuse (reports last drink 3+ weeks ago since living at [employer]) PSHx: 3 surgeries related to peptic ulcer disease/ perforated ulcer FamHx: unknown, pt is adopted SocialHx: formerly 3ppd smoker, currently 1.5ppd smoker, has been smoking since age 10; denies alcohol for 3+ weeks, denies recent drug use; currently living at [employer] Objective - Vital Signs/Intake and Output Vital Signs (last 24 hours): Temp Pulse Resp BP Pulse Ox 98.9 F 99 H 23 117/60 91 L 08/04/18 09:10 08/04/18 12:17 08/04/18 12:17 08/04/18 12:17 08/04/18 12:17 - Labs Labs: 08/04/18 09:50 08/04/18 09:50 - Constitutional Appears: Non-toxic, No Acute Distress - Head Exam Head Exam: ATRAUMATIC, NORMOCEPHALIC - Eye Exam Eye Exam: EOMI - ENT Exam ENT Exam: Mucous Membranes Moist - Respiratory Exam Respiratory Exam: Wheezes (diffuse inspiratory and expiratory wheezes bilaterally) - Cardiovascular Exam Cardiovascular Exam: Tachycardia, +S1, +S2 - GI/Abdominal Exam GI & Abdominal Exam: Soft, Normal Bowel Sounds. absent: Tenderness - Extremities Exam Extremities Exam: Normal Inspection. absent: Calf Tenderness - Neurological Exam Neurological Exam: Alert, Awake - Psychiatric Exam Psychiatric exam: Normal Affect - Skin Skin Exam: Warm Assessment and Plan - Assessment and Plan (Free Text) Assessment: COPD exacerbation patient given solumedrol 125mg IVP in ER start solumedrol IVP taper- 40mg IVP q6 x 24h, then q8 x 24h, then q12x 24 hours duoneb q4h advair 500/50 inhaled q12h guaifenesin prn cough chest xray: no acute findings. COPD. (see full report) Chest pain present on initial ER presentation but resolved likely pleuritic first VEGA negative will check x 2 Depression continue Remeron 30mg PO HS Zoloft 150mg PO daily Tobacco use disorder nicotine patch 12mg/24h tobacco cessation encouraged BPH continue Flomax 0.4mg PO daily Chronic pain continue gabapentin 100mg PO TID Prophylactic measure continue protonix 40mg PO daily lovenox 40mg sc daily All management as per Dr. Gonzalez
[2018-08-04] MEDS ORDERED: Enoxaparin 40 mg Syringe ONE (14:15)
[2018-08-04] MEDS ORDERED: Pantoprazole 40 mg EC Tab PO ONE (14:16)
[2018-08-04] MEDS: Pantoprazole 40 mg EC Tab PO SCH (14:27)
[2018-08-04] MEDS: Enoxaparin 40 mg Syringe SC SCH (14:27)
[2018-08-04] MEDS: Albuterol-Ipratrop 3 mg / 0.5 (3 ml) UD INH SCH (16:56)
[2018-08-04 17:12] LABS: CK-MB 0.97 ng/mL (0.0-3.38)
[2018-08-04] MEDS ORDERED: MethylPREDNISolone 40 mg Vial ONE (17:14)
[2018-08-04] MEDS: MethylPREDNISolone 40 mg Vial IVP SCH ×2 (17:19→22:30)
[2018-08-04] MEDS: guaiFENesin 100 mg/5 ml Syrup UD PO PRN (21:07)
[2018-08-04 22:45] LABS: CK-MB 1.06 ng/mL (0.0-3.38)
[2018-08-04 23:55] VITALS: RESP 20
[2018-08-05] MEDS: Albuterol-Ipratrop 3 mg / 0.5 (3 ml) UD INH SCH ×2 (00:58→03:37)
[2018-08-05] MEDS: MethylPREDNISolone 40 mg Vial IVP SCH ×3 (05:48→18:05)
--- NOTE | 2018-08-05 07:20 | CP.PCM.PN ---
Subjective - Date & Time of Evaluation Date of Evaluation: 08/05/18 Time of Evaluation: 07:19 - Subjective Subjective: Medicine progress note for Dr. Gonzalez's service Patient seen and examined. Patient reports improvement in breathing since coming in to hospital. He reports cough medication is helping. Objective - Vital Signs/Intake and Output Vital Signs (last 24 hours): Temp Pulse Resp BP Pulse Ox 98.4 F 90 20 114/60 96 08/04/18 23:53 08/04/18 23:53 08/04/18 23:53 08/04/18 23:53 08/04/18 23:53 Intake and Output: 08/05/18 08/05/18 06:59 18:59 Intake Total 500 Balance 500 - Medications Medications: Current Medications Albuterol/Ipratropium (Duoneb 3 Mg/0.5 Mg (3 Ml) Ud) 3 ml INH RQ4 PRN PRN Reason: Shortness of Breath Enoxaparin Sodium (Lovenox) 40 mg SC DAILY [facility] Last Admin: 08/04/18 14:27 Dose: 40 mg Folic Acid (Folic Acid) 1 mg PO DAILY [facility] Gabapentin (Neurontin) 100 mg PO TID [facility] Last Admin: 08/04/18 18:52 Dose: 100 mg Guaifenesin (Robitussin) 100 mg PO Q4H PRN PRN Reason: Cough Last Admin: 08/04/18 21:07 Dose: 100 mg Methylprednisolone (Solu-Medrol) 40 mg IVP Q6H [facility] PRN Reason: Taper Stop: 08/08/18 17:29 Last Admin: 08/05/18 05:48 Dose: 40 mg Mirtazapine (Remeron) 30 mg PO HS [facility] Last Admin: 08/04/18 21:07 Dose: 30 mg Montelukast Sodium (Singulair) 10 mg PO HS [facility] Last Admin: 08/04/18 21:07 Dose: 10 mg Multivitamins (Hexavitamin) 1 tab PO DAILY [facility] Nicotine (Nicoderm Cq) 1 patch TD DAILY [facility] Last Admin: 08/04/18 14:27 Dose: Not Given Pantoprazole Sodium (Protonix Ec Tab) 40 mg PO DAILY [facility] Last Admin: 08/04/18 14:27 Dose: 40 mg Fluticasone/Salmeterol (Advair Diskus 500/50) 1 puff INH RQ12 [facility] Sertraline HCl (Zoloft) 150 mg PO DAILY [facility] Tamsulosin HCl (Flomax) 0.4 mg PO DAILY [facility] - Labs Labs: 08/04/18 09:50 08/04/18 09:50 - Constitutional Appears: No Acute Distress - Head Exam Head Exam: ATRAUMATIC, NORMOCEPHALIC - Eye Exam Eye Exam: EOMI - ENT Exam ENT Exam: Mucous Membranes Moist - Respiratory Exam Respiratory Exam: Wheezes (diffuse inspiratory and expiratory wheezes bilaterally) - Cardiovascular Exam Cardiovascular Exam: +S1, +S2 - GI/Abdominal Exam GI & Abdominal Exam: Soft, Normal Bowel Sounds. absent: Tenderness - Extremities Exam Extremities Exam: Normal Inspection. absent: Calf Tenderness - Neurological Exam Neurological Exam: Alert, Awake - Psychiatric Exam Psychiatric exam: Normal Affect - Skin Skin Exam: Warm Assessment and Plan - Assessment and Plan (Free Text) Assessment: COPD exacerbation patient given solumedrol 125mg IVP in ER continue solumedrol taper: q8 x 24h, then q12x 24 hours duoneb q4h prn advair 500/50 inhaled q12h guaifenesin prn cough chest xray: no acute findings. COPD. (see full report) Chest pain present on initial ER presentation but resolved likely pleuritic VEGA negative x 3 Depression continue Remeron 30mg PO HS Zoloft 150mg PO daily Tobacco use disorder nicotine patch 12mg/24h tobacco cessation encouraged BPH continue Flomax 0.4mg PO daily Chronic pain continue gabapentin 100mg PO TID Prophylactic measure continue protonix 40mg PO daily lovenox 40mg sc daily All management as per Dr. Gonzalez
[2018-08-05 07:50] LABS: BASO # 0.1 K/uL (0.0-0.2); BASO % 0.5 % (0.0-2.0); HEMOGLOBIN 10.3 g/dL (12.0-18.0); LYMPH # 1.4 K/uL (1.0-4.3); LYMPH % 12.1 % (20.0-40.0); MEAN CELL VOLUME 84.7 fL (80.0-94.0); MEAN CORPUSCULAR HGB CONC 33.1 g/dL (33.0-37.0); MEAN PLATELET VOLUME 8.4 fL (7.2-11.7); MONO # 0.5 K/uL (0.0-0.8); MONO % 4.1 % (0.0-10.0); NEUT # 9.6 K/uL (1.8-7.0); NEUT % 83.3 % (50.0-75.0); RBC 3.69 Mil/uL (4.40-5.90); RED CELL DISTRIBUTION WIDTH 19.2 % (11.5-14.5); WHITE BLOOD COUNT 11.5 K/uL (4.8-10.8)
[2018-08-05 07:52] LABS: ALB/GLOB RATIO 1.4 (1.0-2.1); ALBUMIN 3.8 g/dL (3.5-5.0); ALT/SGPT 22 U/L (21-72); AST/SGOT 14 U/L (17-59); BLOOD UREA NITROGEN 12 mg/dL (9-20); CALCIUM 9.1 mg/dl (8.6-10.4); GFR NON-AFRICAN AMERICAN > 60
[2018-08-05] MEDS: Enoxaparin 40 mg Syringe SC SCH (09:11)
[2018-08-05] MEDS: Pantoprazole 40 mg EC Tab PO SCH (09:12)
[2018-08-05] MEDS: Multiple Vitamins Tab PO SCH (09:12)
[2018-08-05] MEDS: Albuterol-Ipratrop 3 mg / 0.5 (3 ml) UD INH PRN ×4 (09:16→19:41)
[2018-08-05] MEDS: guaiFENesin 100 mg/5 ml Syrup UD PO PRN ×4 (09:56→22:25)
[2018-08-05] MEDS: Fluticasone-Salmeterol 500-50mcg Diskus INH SCH ×2 (13:46→19:40)
[2018-08-06] MEDS: Albuterol-Ipratrop 3 mg / 0.5 (3 ml) UD INH PRN ×3 (01:36→19:38)
[2018-08-06] MEDS: MethylPREDNISolone 40 mg Vial IVP SCH ×2 (02:05→09:39)
[2018-08-06 08:10] LABS: BASO % 0.2 % (0.0-2.0); HEMOGLOBIN 9.5 g/dL (12.0-18.0); LYMPH # 0.9 K/uL (1.0-4.3); LYMPH % 7.1 % (20.0-40.0); MEAN CELL VOLUME 85.6 fL (80.0-94.0); MEAN CORPUSCULAR HEMOGLOBIN 27.5 pg (27.0-31.0); MEAN CORPUSCULAR HGB CONC 32.2 g/dL (33.0-37.0); MEAN PLATELET VOLUME 8.5 fL (7.2-11.7); MONO # 0.5 K/uL (0.0-0.8); MONO % 3.7 % (0.0-10.0); PLATELET COUNT 365 K/uL (130-400); RBC 3.47 Mil/uL (4.40-5.90); RED CELL DISTRIBUTION WIDTH 19.3 % (11.5-14.5); WHITE BLOOD COUNT 12.3 K/uL (4.8-10.8)
[2018-08-06 08:22] LABS: ALB/GLOB RATIO 1.5 (1.0-2.1); ALBUMIN 3.7 g/dL (3.5-5.0); ALT/SGPT 21 U/L (21-72); AST/SGOT 12 U/L (17-59); BLOOD UREA NITROGEN 16 mg/dL (9-20); CALCIUM 9.2 mg/dl (8.6-10.4); GFR NON-AFRICAN AMERICAN > 60
--- NOTE | 2018-08-06 08:38 | HP ---
HISTORY OF PRESENT ILLNESS: Mr. Rodriguez is a 58-year-old man who comes to the hospital with a chief complaint of shortness of breath, weakness, fatigue, tiredness. The patient has COPD. The patient is smoking in spite of multiple advice smoking. Patient , he said he stopped drinking 3 weeks ago. PHYSICAL EXAMINATION: GENERAL: The patient is awake, alert, and oriented. VITAL SIGNS: Temperature 98, pulse 90. HEENT: Within normal limits. NECK: Supple. CHEST: Symmetrical. HEART: Regular. ABDOMEN: Soft. EXTREMITIES: No edema. IMPRESSION AND PLAN: The patient suffers from exacerbation of chronic obstructive pulmonary disease, bronchitis. The patient on bed rest, supportive care. Dino Gonzalez MD
[2018-08-06] MEDS: Enoxaparin 40 mg Syringe SC SCH (09:38)
[2018-08-06] MEDS: Multiple Vitamins Tab PO SCH (09:39)
[2018-08-06] MEDS: guaiFENesin 100 mg/5 ml Syrup UD PO PRN ×2 (09:39→18:31)
[2018-08-06] MEDS: Pantoprazole 40 mg EC Tab PO SCH (09:39)
[2018-08-06] MEDS: Fluticasone-Salmeterol 500-50mcg Diskus INH SCH ×2 (09:44→19:38)
[2018-08-06 10:02] LABS: ANISOCYTOSIS MODERATE; LYMPHOCYTE 8 % (20-40); MONOCYTE 3 % (0-10); NEUTROPHIL 89 % (50-75); PLATELET ESTIMATE NORMAL (NORMAL); TOTAL CELLS COUNTED 100
[2018-08-06 10:03] LABS: HYPOCHROMIC SLIGHT
--- NOTE | 2018-08-06 16:39 | CP.PCM.PN ---
Subjective - Date & Time of Evaluation Date of Evaluation: 08/06/18 Time of Evaluation: 09:10 - Subjective Subjective: Medicine progress note for Dr. Gonzalez's service Patient seen and examined. Patient states breathing is much better today. He states that he does feel a little jittery after duonebs and steroids but reports chest tightness has resolved. Objective - Vital Signs/Intake and Output Vital Signs (last 24 hours): Temp Pulse Resp BP Pulse Ox 98.2 F 96 H 20 159/93 H 97 08/06/18 07:51 08/06/18 16:14 08/06/18 07:51 08/06/18 07:51 08/06/18 07:51 Intake and Output: 08/06/18 08/06/18 06:59 18:59 Intake Total 1000 600 Balance 1000 600 - Medications Medications: Current Medications Albuterol/Ipratropium (Duoneb 3 Mg/0.5 Mg (3 Ml) Ud) 3 ml INH RQ4 PRN PRN Reason: Shortness of Breath Last Admin: 08/06/18 15:44 Dose: 3 ml Enoxaparin Sodium (Lovenox) 40 mg SC DAILY [facility] Last Admin: 08/06/18 09:38 Dose: 40 mg Folic Acid (Folic Acid) 1 mg PO DAILY [facility] Last Admin: 08/06/18 09:39 Dose: 1 mg Gabapentin (Neurontin) 100 mg PO TID [facility] Last Admin: 08/06/18 13:13 Dose: 100 mg Guaifenesin (Robitussin) 100 mg PO Q4H PRN PRN Reason: Cough Last Admin: 08/06/18 09:39 Dose: 100 mg Methylprednisolone (Solu-Medrol) 40 mg IVP Q8H [facility] PRN Reason: Taper Stop: 08/08/18 17:29 Last Admin: 08/06/18 09:39 Dose: 40 mg Mirtazapine (Remeron) 30 mg PO HS [facility] Last Admin: 08/05/18 21:51 Dose: 30 mg Montelukast Sodium (Singulair) 10 mg PO HS [facility] Last Admin: 08/05/18 21:52 Dose: 10 mg Multivitamins (Hexavitamin) 1 tab PO DAILY [facility] Last Admin: 08/06/18 09:39 Dose: 1 tab Nicotine (Nicoderm Cq) 1 patch TD DAILY [facility] Last Admin: 08/06/18 09:38 Dose: 1 patch Pantoprazole Sodium (Protonix Ec Tab) 40 mg PO DAILY [facility] Last Admin: 08/06/18 09:39 Dose: 40 mg Fluticasone/Salmeterol (Advair Diskus 500/50) 1 puff INH RQ12 [facility] Last Admin: 08/06/18 09:44 Dose: Not Given Sertraline HCl (Zoloft) 150 mg PO DAILY [facility] Last Admin: 08/06/18 09:39 Dose: 150 mg Tamsulosin HCl (Flomax) 0.4 mg PO DAILY [facility] Last Admin: 08/06/18 09:38 Dose: 0.4 mg - Labs Labs: 08/06/18 07:46 08/06/18 07:46 - Constitutional Appears: No Acute Distress, Chronically Ill - Head Exam Head Exam: ATRAUMATIC, NORMOCEPHALIC - Eye Exam Eye Exam: EOMI - ENT Exam ENT Exam: Mucous Membranes Moist - Respiratory Exam Respiratory Exam: Wheezes (diffuse inspiratory and expiratory b/l) - Cardiovascular Exam Cardiovascular Exam: +S1, +S2 - GI/Abdominal Exam GI & Abdominal Exam: Soft, Normal Bowel Sounds - Extremities Exam Extremities Exam: Normal Inspection - Neurological Exam Neurological Exam: Alert, Awake - Psychiatric Exam Psychiatric exam: Normal Affect - Skin Skin Exam: Warm Assessment and Plan - Assessment and Plan (Free Text) Assessment: COPD exacerbation patient given solumedrol 125mg IVP in ER continue solumedrol taper: q12x 24 hours duoneb q4h prn advair 500/50 inhaled q12h guaifenesin prn cough chest xray: no acute findings. COPD. (see full report) Chest pain present on initial ER presentation but resolved likely pleuritic VEGA negative x 3 Depression continue Remeron 30mg PO HS Zoloft 150mg PO daily Tobacco use disorder nicotine patch 12mg/24h tobacco cessation encouraged BPH continue Flomax 0.4mg PO daily Chronic pain continue gabapentin 100mg PO TID Prophylactic measure continue protonix 40mg PO daily lovenox 40mg sc daily Ensure TID All management as per Dr. Gonzalez Patient to have early discharge tomorrow morning so [facility] can [facility] early.
--- NOTE | 2018-08-07 07:06 | CP.PCM.PN ---
Subjective - Date & Time of Evaluation Date of Evaluation: 08/07/18 Time of Evaluation: 08:00 - Subjective Subjective: Medicine progress note for Dr. Gonzalez's service: Patient seen and examined. Patient states breathing is much better today. He is tolerating diet and having normal bowel movements. He is stable for discharge. Objective - Vital Signs/Intake and Output Vital Signs (last 24 hours): Temp Pulse Resp BP Pulse Ox 97.8 F 96 H 20 141/81 97 08/06/18 23:40 08/06/18 23:40 08/06/18 23:40 08/06/18 23:40 08/06/18 23:40 - Medications Medications: Current Medications Albuterol/Ipratropium (Duoneb 3 Mg/0.5 Mg (3 Ml) Ud) 3 ml INH RQ4 PRN PRN Reason: Shortness of Breath Last Admin: 08/06/18 19:38 Dose: 3 ml Enoxaparin Sodium (Lovenox) 40 mg SC DAILY [facility] Last Admin: 08/06/18 09:38 Dose: 40 mg Folic Acid (Folic Acid) 1 mg PO DAILY [facility] Last Admin: 08/06/18 09:39 Dose: 1 mg Gabapentin (Neurontin) 100 mg PO TID [facility] Last Admin: 08/06/18 17:53 Dose: 100 mg Guaifenesin (Robitussin) 100 mg PO Q4H PRN PRN Reason: Cough Last Admin: 08/06/18 18:31 Dose: 100 mg Methylprednisolone (Solu-Medrol) 40 mg IVP Q12H [facility] Mirtazapine (Remeron) 30 mg PO HS [facility] Last Admin: 08/06/18 21:28 Dose: 30 mg Montelukast Sodium (Singulair) 10 mg PO HS [facility] Last Admin: 08/06/18 21:28 Dose: 10 mg Multivitamins (Hexavitamin) 1 tab PO DAILY [facility] Last Admin: 08/06/18 09:39 Dose: 1 tab Nicotine (Nicoderm Cq) 1 patch TD DAILY [facility] Last Admin: 08/06/18 09:38 Dose: 1 patch Pantoprazole Sodium (Protonix Ec Tab) 40 mg PO DAILY [facility] Last Admin: 08/06/18 09:39 Dose: 40 mg Fluticasone/Salmeterol (Advair Diskus 500/50) 1 puff INH RQ12 [facility] Last Admin: 08/06/18 19:38 Dose: 1 puff Sertraline HCl (Zoloft) 150 mg PO DAILY [facility] Last Admin: 08/06/18 09:39 Dose: 150 mg Tamsulosin HCl (Flomax) 0.4 mg PO DAILY [facility] Last Admin: 08/06/18 09:38 Dose: 0.4 mg - Labs Labs: 08/06/18 07:46 08/06/18 07:46 - Constitutional Appears: Non-toxic, No Acute Distress - Head Exam Head Exam: ATRAUMATIC, NORMAL INSPECTION - Eye Exam Eye Exam: EOMI Pupil Exam: NORMAL ACCOMODATION - ENT Exam ENT Exam: Mucous Membranes Moist - Respiratory Exam Respiratory Exam: Decreased Breath Sounds, Wheezes, NORMAL BREATHING PATTERN. absent: Accessory Muscle Use, Respiratory Distress - Cardiovascular Exam Cardiovascular Exam: REGULAR RHYTHM, +S1, +S2 - GI/Abdominal Exam GI & Abdominal Exam: Soft, Normal Bowel Sounds. absent: Distended, Firm, Guarding, Tenderness - Extremities Exam Extremities Exam: Normal Inspection - Neurological Exam Neurological Exam: Alert, Awake, Oriented x3 Assessment and Plan - Assessment and Plan (Free Text) Assessment: COPD exacerbation patient given solumedrol 125mg IVP in ER continue solumedrol taper: q12x 24 hours duoneb q4h prn advair 500/50 inhaled q12h guaifenesin prn cough chest xray: no acute findings. COPD. (see full report) Chest pain present on initial ER presentation but resolved likely pleuritic VEGA negative x 3 Depression continue Remeron 30mg PO HS Zoloft 150mg PO daily Tobacco use disorder nicotine patch 12mg/24h tobacco cessation encouraged BPH continue Flomax 0.4mg PO daily Chronic pain continue gabapentin 100mg PO TID Prophylactic measure continue protonix 40mg PO daily lovenox 40mg sc daily Ensure TID All management as per Dr. Gonzalez Patient to have early discharge tomorrow morning so he can return to [facility] early. Patient is stable for discharge per Dr. Gonzalez. Patient should resume all medications as outlined in this document. Additionally, patient should resumes all of his home medications. Refills were sent to [facility] pharmacy as requested by the patient. He is to make an appointment and follow up with his Primary Doctor or Dr. Elamir within one week of discharge. Patient should return to ED immediately if symptoms return or worsen. Instructions discussed with patient who understood and agreed.
[2018-08-07 07:29] LABS: BASO % 0.1 % (0.0-2.0); EOS # 0.1 K/uL (0.0-0.7); EOS % 0.7 % (0.0-4.0); HEMOGLOBIN 9.7 g/dL (12.0-18.0); LYMPH # 1.7 K/uL (1.0-4.3); LYMPH % 17.5 % (20.0-40.0); MEAN CORPUSCULAR HEMOGLOBIN 28.5 pg (27.0-31.0); MEAN CORPUSCULAR HGB CONC 33.5 g/dL (33.0-37.0); MEAN PLATELET VOLUME 8.4 fL (7.2-11.7); MONO # 0.8 K/uL (0.0-0.8); MONO % 8.6 % (0.0-10.0); NEUT # 6.9 K/uL (1.8-7.0); NEUT % 73.1 % (50.0-75.0); RBC 3.41 Mil/uL (4.40-5.90); WHITE BLOOD COUNT 9.5 K/uL (4.8-10.8)
[2018-08-07 07:37] LABS: ALB/GLOB RATIO 1.3 (1.0-2.1); ALBUMIN 3.4 g/dL (3.5-5.0); ALT/SGPT 23 U/L (21-72); AST/SGOT 12 U/L (17-59); BLOOD UREA NITROGEN 20 mg/dL (9-20); CALCIUM 8.5 mg/dl (8.6-10.4); GFR NON-AFRICAN AMERICAN > 60
[2018-08-07] MEDS: Fluticasone-Salmeterol 500-50mcg Diskus INH SCH (07:39)
[2018-08-07] MEDS ORDERED: MethylPREDNISolone 40 mg Vial IVP SCH (08:00)
[2018-08-07 08:53] VITALS: BP 157/91; PULSE 83; TEMP 98; O2SAT 100
[2018-08-07] MEDS: Pantoprazole 40 mg EC Tab PO SCH (09:20)
[2018-08-07] MEDS: Multiple Vitamins Tab PO SCH (09:20)
[2018-08-07] MEDS: guaiFENesin 100 mg/5 ml Syrup UD PO PRN ×2 (09:21→13:41)
[2018-08-07] MEDS: Enoxaparin 40 mg Syringe SC SCH (09:21)
== END 2018-08-07 16:00 | disposition home or self-care (01) | DRG 88 ==
LOC: C.ER 09:03 → OBSVTOIN 11:52 → C.9E 11:52 → C.5S 18:35
PROVIDERS: ADMIT Internal Medicine Pulmonary Disease; ATTEND Internal Medicine Pulmonary Disease
DX: J44.1 Chronic obstructive pulmonary disease with (acute) exacerbation (principal); R07.81 Pleurodynia; I10 Essential (primary) hypertension; F17.210 Nicotine dependence, cigarettes, uncomplicated; F32.9 Major depressive disorder, single episode, unspecified; G89.29 Other chronic pain; N40.0 Benign prostatic hyperplasia without lower urinary tract symptoms; Z87.11 Personal history of peptic ulcer disease; Z87.01 Personal history of pneumonia (recurrent)

== ENCOUNTER 2018-08-25 10:46 | Inpatient (IN) | payer MEDICAID ==
[2018-08-25 10:46] VITALS: BMI 18.8
[2018-08-25 12:19] LABS: BASO % 0.3 % (0.0-2.0); EOS # 0.3 K/uL (0.0-0.7); EOS % 3.5 % (0.0-4.0); HEMOGLOBIN 9.4 g/dL (12.0-18.0); LYMPH # 1.8 K/uL (1.0-4.3); LYMPH % 21.7 % (20.0-40.0); MEAN CELL VOLUME 81.9 fL (80.0-94.0); MEAN CORPUSCULAR HEMOGLOBIN 27.1 pg (27.0-31.0); MEAN CORPUSCULAR HGB CONC 33.1 g/dL (33.0-37.0); MEAN PLATELET VOLUME 8.6 fL (7.2-11.7); MONO # 0.5 K/uL (0.0-0.8); MONO % 6.2 % (0.0-10.0); NEUT # 5.6 K/uL (1.8-7.0); NEUT % 68.3 % (50.0-75.0); RBC 3.48 Mil/uL (4.40-5.90); RED CELL DISTRIBUTION WIDTH 20.5 % (11.5-14.5); WHITE BLOOD COUNT 8.3 K/uL (4.8-10.8)
[2018-08-25 12:32] LABS: ALB/GLOB RATIO 1.3 (1.0-2.1); ALBUMIN 3.4 g/dL (3.5-5.0); ALT/SGPT 32 U/L (21-72); AST/SGOT 16 U/L (17-59); BLOOD UREA NITROGEN 9 mg/dL (9-20); CALCIUM 8.6 mg/dl (8.6-10.4); GFR NON-AFRICAN AMERICAN > 60
[2018-08-25 12:42] LABS: B-TYPE NATRIURETIC PEPTIDE 449 pg/mL (0-900)
[2018-08-25 12:49] LABS: SQUAMOUS EPITHIAL < 1 /hpf (0-5); URINE BILIRUBIN NEGATIVE (NEGATIVE); URINE BLOOD NEGATIVE (NEGATIVE); URINE CLARITY Hazy (Clear); URINE COLOR Amber (YELLOW); URINE GLUCOSE (UA) NORMAL (Normal); URINE LEUKOCYTE ESTERASE NEG Leu/uL (Negative); URINE PROTEIN NEGATIVE (NEGATIVE)
[2018-08-25] MEDS ORDERED: MethylPREDNISolone 40 mg Vial IVP STA (13:33)
[2018-08-25] MEDS ORDERED: Albuterol-Ipratrop 3 mg / 0.5 (3 ml) UD ONE (13:51)
[2018-08-25] MEDS ORDERED: MethylPREDNISolone 40 mg Vial ONE (13:52)
[2018-08-25] MEDS: Albuterol-Ipratrop 3 mg / 0.5 (3 ml) UD IH SCH ×3 (13:57→14:45)
--- NOTE | 2018-08-25 14:25 | RAD ---
Date of service: 08/25/2018 HISTORY: fever, SOB COMPARISON: 08/04/2018. FINDINGS: LUNGS: The lungs are hyperinflated and there is peribronchial thickening with chronic changes in both lungs. No focal consolidation. PLEURA: No significant pleural effusion identified, no pneumothorax apparent. CARDIOVASCULAR: Normal. OSSEOUS STRUCTURES: No significant abnormalities. VISUALIZED UPPER ABDOMEN: Normal. OTHER FINDINGS: None. IMPRESSION: No acute findings. COPD.
--- NOTE | 2018-08-25 14:41 | C.PDOC ---
History Of Present Illness 58-year-old male, PMHx includes COPD, presents to the emergency department with complaints of increased shortness of breath over the past three days associated with cough and weakness. Pt also reports two episodes of loose stool. Denies fever, nausea/vomiting. <Helena Cox - Last Filed: 08/25/18 16:28> History Per: Patient History/Exam Limitations: no limitations Onset/Duration Of Symptoms: Days Current Symptoms Are (Timing): Still Present <Helena Cox - Last Filed: 08/25/18 16:28> <Renetta Cheatham - Last Filed: 08/30/18 02:58> Time Seen by Provider: 08/25/18 11:32 Chief Complaint (Nursing): Shortness Of Breath Past Medical History Reviewed: Historical Data, Nursing Documentation, Vital Signs Vital Signs: Last Vital Signs Temp 98.5 F 08/25/18 11:14 Pulse 97 H 08/25/18 11:38 Resp 26 H 08/25/18 11:38 BP 132/83 08/25/18 11:38 Pulse Ox 96 08/25/18 12:06 - Medical History PMH: Anxiety, Asthma, Bronchitis, COPD, Depression, Gastrointestinal Ulcer, HTN, Pneumonia Denies: Chronic Kidney Disease Surgical History: Appendectomy, Tonsillectomy - [facility] Procedures CONTR ABD ARTERIOGRM NEC (05/20/07) DETOXIFICATION SERVICES FOR SUBSTANCE ABUSE TREATMENT (07/14/18) ESOPHAGOGASTRODUODENOSCOPY [EGD] W/CLOSED BIOPSY (05/20/07) EXCISION OF LOWER ESOPHAGUS, ENDO, DIAGN (05/21/17) EXTIRPATION OF MATTER FROM LOWER ESOPHAGUS, ENDO (05/21/17) GROUP OUTDOOR GUIDE FOR SUBSTANCE ABUSE TREATMENT, PSYCHOEDUCATION (05/05/18) GROUP OUTDOOR GUIDE FOR SUBSTANCE ABUSE, COGNITIVE BEHAVIORAL (05/05/18) GROUP PSYCHOTHERAPY (07/14/18) INDIV OUTDOOR GUIDE FOR SUBSTANCE ABUSE TREATMENT, PSYCHOEDUCATION (01/14/17) INDIV OUTDOOR GUIDE FOR SUBSTANCE ABUSE, COGNITIVE BEHAVIORAL (01/14/17) INDIV PSYCHOTHERAPY FOR SUBSTANCE ABUSE TREATMENT, SUPPORT (07/14/18) INDIV PSYCHOTHERAPY FOR SUBSTANCE ABUSE, COGNITIV BEHAVIORAL (05/05/18) INDIV PSYCHOTHERAPY FOR SUBSTANCE ABUSE, PSYCHOEDUCATION (07/14/18) INDIVIDUAL PSYCHOTHERAPY, COGNITIVE-BEHAVIORAL (05/05/18) INDIVIDUAL PSYCHOTHERAPY, SUPPORTIVE (05/05/18) INJECT/INFUSE NEC (03/20/12) MEDICATION MANAGEMENT (03/12/17) MEDS MGMT FOR SUBSTANCE ABUSE TREATMENT, OTH REPL MED (03/12/17) Family History: States: No Known Family Hx - Social History Hx Tobacco Use: Yes Hx Alcohol Use: Yes Hx Substance Use: Yes - Immunization History Hx Tetanus Toxoid Vaccination: Yes Hx Influenza Vaccination: Yes Hx Pneumococcal Vaccination: Yes <Helena Cox - Last Filed: 08/25/18 16:28> Vital Signs: Last Vital Signs Temp 98.4 F 08/28/18 15:58 Pulse 106 H 08/28/18 15:58 Resp 20 08/28/18 15:58 BP 122/74 08/28/18 15:58 Pulse Ox 95 08/28/18 15:58 - [facility] Procedures CONTR ABD ARTERIOGRM NEC (05/20/07) DETOXIFICATION SERVICES FOR SUBSTANCE ABUSE TREATMENT (07/14/18) ESOPHAGOGASTRODUODENOSCOPY [EGD] W/CLOSED BIOPSY (05/20/07) EXCISION OF LOWER ESOPHAGUS, ENDO, DIAGN (05/21/17) EXTIRPATION OF MATTER FROM LOWER ESOPHAGUS, ENDO (05/21/17) GROUP OUTDOOR GUIDE FOR SUBSTANCE ABUSE TREATMENT, PSYCHOEDUCATION (05/05/18) GROUP OUTDOOR GUIDE FOR SUBSTANCE ABUSE, COGNITIVE BEHAVIORAL (05/05/18) GROUP PSYCHOTHERAPY (07/14/18) INDIV OUTDOOR GUIDE FOR SUBSTANCE ABUSE TREATMENT, PSYCHOEDUCATION (01/14/17) INDIV OUTDOOR GUIDE FOR SUBSTANCE ABUSE, COGNITIVE BEHAVIORAL (01/14/17) INDIV PSYCHOTHERAPY FOR SUBSTANCE ABUSE TREATMENT, SUPPORT (07/14/18) INDIV PSYCHOTHERAPY FOR SUBSTANCE ABUSE, COGNITIV BEHAVIORAL (05/05/18) INDIV PSYCHOTHERAPY FOR SUBSTANCE ABUSE, PSYCHOEDUCATION (07/14/18) INDIVIDUAL PSYCHOTHERAPY, COGNITIVE-BEHAVIORAL (05/05/18) INDIVIDUAL PSYCHOTHERAPY, SUPPORTIVE (05/05/18) INJECT/INFUSE NEC (03/20/12) MEDICATION MANAGEMENT (03/12/17) MEDS MGMT FOR SUBSTANCE ABUSE TREATMENT, OTH REPL MED (03/12/17) <Renetta Cheatham - Last Filed: 08/30/18 02:58> Review Of Systems Constitutional: Negative for: Fever Cardiovascular: Negative for: Chest Pain, Palpitations, Edema Respiratory: Positive for: Cough, Shortness of Breath Gastrointestinal: Negative for: Nausea, Vomiting Musculoskeletal: Negative for: Back Pain Neurological: Negative for: Weakness, Numbness, Headache, Dizziness <Helena Cox - Last Filed: 08/25/18 16:28> Physical Exam - Physical Exam Appears: Non-toxic, No Acute Distress, Chronically Ill Skin: Warm, Dry, No Rash Head: Atraumatic, Normacephalic Eye(s): bilateral: Normal Inspection Nose: Normal Lips: Normal Appearing Neck: Normal ROM, Supple Chest: Symmetrical Cardiovascular: Rhythm Regular, No Murmur Respiratory: Decreased Breath Sounds, No Accessory Muscle Use, No Stridor, No Wheezing Gastrointestinal/Abdominal: Soft, No Tenderness, No Guarding, No Rebound Extremity: Normal ROM, No Deformity Neurological/Psych: Oriented x3, Normal Speech <Helena Cox - Last Filed: 08/25/18 16:28> ED Course And Treatment - Laboratory Results Result Diagrams: 08/25/18 12:07 08/25/18 12:07 ECG: Interpreted By Me, Viewed By Wy ECG Rhythm: Sinus Rhythm ECG Interpretation: No Acute Changes Rate From EC O2 Sat by Pulse Oximetry: 96 Pulse Ox Interpretation: Normal (RA) - Radiology CXR: Interpreted by Me CXR Interpretation: Yes: COPD. No: No Acute Disease, Infiltrates <Helena Cox - Last Filed: 08/25/18 16:28> - Laboratory Results Result Diagrams: 08/28/18 07:35 08/28/18 07:35 <Renetta Cheatham - Last Filed: 08/30/18 02:58> Medical Decision Making Medical Decision Making: Plan: * EKG * Bloodwork * Chest X-Ray * Duoneb, Solumedrol * UA * Reassess and Disposition On re-exam, the patient still has shortness of breath after Nebs. Pulse ox is 90% on 3L. The case was discussed with Dr. Gonzalez who agrees to place the patient on Obs tele. <Helena Cox - Last Filed: 08/25/18 16:28> Disposition - Disposition Disposition Time: 13:30 - POA Present On Arrival: None <Helena Cox - Last Filed: 08/25/18 16:28> <Renetta Cheatham - Last Filed: 08/30/18 02:58> - Disposition Disposition: HOSPITALIZED Condition: GUARDED - Clinical Impression Clinical Impression: COPD exacerbation - Scribe Statement The provider has reviewed the documentation as recorded by the Scribe (Celso Geronimo) All medical record entries made by the Scribe were at my direction and personally dictated by me. I have reviewed the chart and agree that the record accurately reflects my personal performance of the history, physical exam, medical decision making, and the department course for this patient. I have also personally directed, reviewed, and agree with the discharge instructions and disposition. <Helena Cox C - Last Filed: 08/25/18 16:28> - PA / CLINICAL TRIAL EDUCATOR / Resident Statement / has reviewed & agrees with the documentation as recorded. <Renetta Cheatham - Last Filed: 08/30/18 02:58>
[2018-08-25 17:18] VITALS: RESP 20
[2018-08-25] MEDS ORDERED: Albuterol-Ipratrop 3 mg / 0.5 (3 ml) UD INH PRN (18:29)
[2018-08-25] MEDS ORDERED: Aluminum Hydroxide/Magnesium Hydroxide Susp (30 mL) PO PRN (18:29)
[2018-08-25] MEDS ORDERED: Albuterol HFA 90 mcg/actuation (8 g) IH PRN (18:29)
[2018-08-25] MEDS: MethylPREDNISolone 40 mg Vial IVP SCH (19:56)
[2018-08-25] MEDS: guaiFENesin 100 mg/5 ml Syrup UD PO PRN (20:01)
[2018-08-25] MEDS: Albuterol-Ipratrop 3 mg / 0.5 (3 ml) UD INH SCH (20:08)
[2018-08-26] MEDS: Albuterol-Ipratrop 3 mg / 0.5 (3 ml) UD INH SCH ×7 (00:41→23:58)
[2018-08-26] MEDS: MethylPREDNISolone 40 mg Vial IVP SCH ×4 (01:47→20:29)
[2018-08-26] MEDS: guaiFENesin 100 mg/5 ml Syrup UD PO PRN ×5 (01:50→21:18)
[2018-08-26] MEDS: Pantoprazole 40 mg EC Tab PO SCH (09:11)
[2018-08-26] MEDS: Multiple Vitamins Tab PO SCH (09:11)
[2018-08-26] MEDS: Enoxaparin 40 mg Syringe SC SCH (09:12)
[2018-08-26] MEDS ORDERED: Influenza Vaccine 60 MCG/0.5 ML SYR (3 yr & up) IM ONE (10:00)
[2018-08-26] MEDS ORDERED: Home Med 1 UNIT (Umeclidinium Bromide [Incruse Ellipta] 62.5 MCG) IH SCH (10:00)
--- NOTE | 2018-08-26 15:00 | CP.PCM.PN ---
Subjective - Date & Time of Evaluation Date of Evaluation: 08/26/18 Time of Evaluation: 07:30 - Subjective Subjective: PGY2 Medicine progress note for Dr. Gonzalez's service Patient is a 58 year old male past medical history of COPD, depression, tobacco dependence who presents to the ER with complaint of dyspnea and diaphoresis. Patient is well known to the medical team, he was most recently discharged on 08/16. Patient states he was working at the [employer] this morning and started to feel short of breath. His breathing improved slightly when he sat down to rest but never full resolved so he decided to come back to the hospital. He is still smoking a half pack of cigarettes per day. Denies fevers, chills, nausea, vomiting, chest pain, abdominal pain. PMD: Lisa PMHx: COPD, depression, alcohol abuse (reports last drink 4+ weeks ago since living at [facility]) PSHx: 3 surgeries related to peptic ulcer disease/ perforated ulcer FamHx: unknown, pt is adopted SocialHx: formerly 3ppd smoker, currently 0.5 ppd smoker, has been smoking since age 10; denies alcohol for 3+ weeks since residing in [place], denies recent drug use; currently [facility] Objective - Vital Signs/Intake and Output Vital Signs (last 24 hours): Temp Pulse Resp BP Pulse Ox 97.6 F 98 H 20 156/90 H 95 08/26/18 08:00 08/26/18 12:00 08/26/18 08:00 08/26/18 08:00 08/26/18 07:15 - Medications Medications: Current Medications Acetaminophen (Tylenol 325mg Tab) 650 mg PO Q6 PRN PRN Reason: Pain, moderate (4-7) Al Hydrox/Mg Hydrox/Simethicone (Maalox 30 Ml) 30 ml PO DAILY PRN PRN Reason: Dyspepsia Albuterol/Ipratropium (Duoneb 3 Mg/0.5 Mg (3 Ml) Ud) 3 ml INH RQ4 [facility] Last Admin: 08/26/18 11:28 Dose: 3 ml Enoxaparin Sodium (Lovenox) 40 mg SC DAILY [facility] Last Admin: 08/26/18 09:12 Dose: 40 mg Folic Acid (Folic Acid) 1 mg PO DAILY [facility] Last Admin: 10/02/18 09:11 Dose: 1 mg Gabapentin (Neurontin) 100 mg PO TID [facility] Last Admin: 08/26/18 13:17 Dose: 100 mg Guaifenesin (Robitussin) 100 mg PO Q4H PRN PRN Reason: Cough Last Admin: 08/26/18 13:31 Dose: 100 mg Methylprednisolone (Solu-Medrol) 60 mg IVP Q6H [facility] Last Admin: 08/26/18 13:21 Dose: 60 mg Mirtazapine (Remeron) 15 mg PO HS [facility] Last Admin: 08/25/18 21:39 Dose: Not Given Montelukast Sodium (Singulair) 10 mg PO HS [facility] Last Admin: 08/25/18 21:39 Dose: 10 mg Multivitamins (Hexavitamin) 1 tab PO DAILY [facility] Last Admin: 08/26/18 09:11 Dose: 1 tab Nicotine (Nicoderm Cq) 1 patch TD DAILY [facility] Last Admin: 08/26/18 10:29 Dose: 1 patch Pantoprazole Sodium (Protonix Ec Tab) 40 mg PO DAILY [facility] Last Admin: 08/26/18 09:11 Dose: 40 mg Sertraline HCl (Zoloft) 150 mg PO DAILY [facility] Last Admin: 08/26/18 09:10 Dose: 150 mg Tamsulosin HCl (Flomax) 0.4 mg PO DAILY [facility] Last Admin: 08/26/18 09:11 Dose: 0.4 mg Tiotropium [place] (Spiriva) 18 mcg INH RQ24 [facility] - Labs Labs: 08/25/18 12:07 08/25/18 12:07 - Additional Findings Additional findings: - Constitutional Appears: No Acute Distress, Chronically Ill - Head Exam Head Exam: ATRAUMATIC, NORMOCEPHALIC - Eye Exam Eye Exam: EOMI - ENT Exam ENT Exam: Mucous Membranes Moist - Respiratory Exam Respiratory Exam: Rhonchi (bilateral), Wheezes (bilateral). absent: Respiratory Distress - Cardiovascular Exam Cardiovascular Exam: +S1, +S2 - GI/Abdominal Exam GI & Abdominal Exam: Soft, Normal Bowel Sounds. absent: Tenderness - Extremities Exam Extremities Exam: Normal Inspection. absent: Calf Tenderness - Neurological Exam Neurological Exam: Alert, Awake - Skin Skin Exam: Warm Assessment and Plan - Assessment and Plan (Free Text) Plan: COPD exacerbation chest xray: no acute findings. COPD. (see full report) Duoneb INH q4h Guaifenesin 100mg PO q4h prn cough Singulair 10mg PO HS SoluMedrol 60mg IVP q6h Spiriva 18mcg INH q12h Depression Remeron 15mg PO HS Zoloft 150mg PO daily Tobacco use disorder nicotine patch 14mg/24h tobacco cessation encouraged BPH continue Flomax 0.4mg PO daily Chronic pain continue gabapentin 100mg PO TID Prophylactic measure continue protonix 40mg PO daily Lovenox 40mg SC daily multivitamin Folic Acid Maalox 30mg PO daily prn Ensure TID All management as per Dr. Lisa Chandra Abby PGY2
[2018-08-27] MEDS: MethylPREDNISolone 40 mg Vial IVP SCH ×4 (01:57→20:23)
[2018-08-27] MEDS: guaiFENesin 100 mg/5 ml Syrup UD PO PRN ×4 (01:57→20:27)
[2018-08-27] MEDS: Albuterol-Ipratrop 3 mg / 0.5 (3 ml) UD INH SCH ×5 (05:28→19:12)
--- NOTE | 2018-08-27 06:27 | HP ---
HISTORY OF PRESENT ILLNESS: The patient was admitted to the hospital with chief complaint of shortness of breath, weakness, fatigue, tiredness. The patient has history of severe COPD. The patient is smoker. PHYSICAL EXAMINATION: GENERAL: The patient is awake, alert, and oriented. VITAL SIGNS: Temperature 98, pulse 90. HEENT: Within normal limits. NECK: Supple. LUNGS: Symmetrical. HEART: Regular. ABDOMEN: Soft. EXTREMITIES: No edema. IMPRESSION: The patient suffers from chronic obstructive pulmonary disease and bronchitis. PLAN: The patient to get bed rest, supportive care. Dino Gonzalez MD
[2018-08-27] MEDS: Tiotropium 18 mcg Cap For Inhalation INH SCH (08:15)
[2018-08-27] MEDS: Pantoprazole 40 mg EC Tab PO SCH (09:42)
[2018-08-27] MEDS: Multiple Vitamins Tab PO SCH (09:42)
[2018-08-27] MEDS: Enoxaparin 40 mg Syringe SC SCH (09:43)
[2018-08-27 11:17] LABS: HEMOGLOBIN 9.5 g/dL (12.0-18.0); LYMPH # 0.5 K/uL (1.0-4.3); LYMPH % 2.8 % (20.0-40.0); MEAN CELL VOLUME 82.5 fL (80.0-94.0); MEAN CORPUSCULAR HEMOGLOBIN 26.2 pg (27.0-31.0); MEAN CORPUSCULAR HGB CONC 31.7 g/dL (33.0-37.0); MEAN PLATELET VOLUME 8.8 fL (7.2-11.7); MONO # 0.3 K/uL (0.0-0.8); MONO % 1.6 % (0.0-10.0); NEUT # 16.3 K/uL (1.8-7.0); NEUT % 95.6 % (50.0-75.0); PLATELET COUNT 333 K/uL (130-400); RBC 3.65 Mil/uL (4.40-5.90)
[2018-08-27 11:52] LABS: ANISOCYTOSIS SLIGHT; HYPOCHROMIC SLIGHT; LYMPHOCYTE 2 % (20-40); MICROCYTOSIS SLIGHT; MONOCYTE 2 % (0-10); NEUTROPHIL 96 % (50-75); PLATELET ESTIMATE NORMAL (NORMAL); POIKILOCYTOSIS SLIGHT; TOTAL CELLS COUNTED 100
[2018-08-27 11:53] LABS: ALB/GLOB RATIO 1.4 (1.0-2.1); ALBUMIN 3.6 g/dL (3.5-5.0); ALT/SGPT 25 U/L (21-72); AST/SGOT 16 U/L (17-59); BLOOD UREA NITROGEN 19 mg/dL (9-20); CALCIUM 9.1 mg/dl (8.6-10.4); GFR NON-AFRICAN AMERICAN > 60; OVALOCYTES SLIGHT; TARGET CELLS SLIGHT; TEARDROP CELLS SLIGHT
--- NOTE | 2018-08-27 12:40 | CARD ---
APPROVED REPORT Date of service: 08/25/2018 EKG Measurement Heart [id number] <Conclusion> Normal sinus rhythm Normal ECG
--- NOTE | 2018-08-27 13:58 | CP.PCM.PN ---
Subjective - Date & Time of Evaluation Date of Evaluation: 08/27/18 Time of Evaluation: 07:00 - Subjective Subjective: PGY2- Progress Note for Dr. Gonzalez Patient seen and examined and in no acute distress. Patient says his breathing is much improved and feels much less shortness of breath. Patient says he was having pus draining from his right ear and pain in his right ear which stopped yesterday. Patient denies any headache, chest pain, abdominal pain, nausea, vomiting, constipation, or diarrhea. Objective - Vital Signs/Intake and Output Vital Signs (last 24 hours): Temp Pulse Resp BP Pulse Ox 97.9 F 95 H 20 148/79 99 08/27/18 07:59 08/27/18 08:00 08/27/18 07:59 08/27/18 07:59 08/27/18 08:00 - Medications Medications: Current Medications Acetaminophen (Tylenol 325mg Tab) 650 mg PO Q6 PRN PRN Reason: Pain, moderate (4-7) Al Hydrox/Mg Hydrox/Simethicone (Maalox 30 Ml) 30 ml PO DAILY PRN PRN Reason: Dyspepsia Albuterol/Ipratropium (Duoneb 3 Mg/0.5 Mg (3 Ml) Ud) 3 ml INH RQ4 [facility] Last Admin: 08/27/18 11:47 Dose: 3 ml Amoxicillin/Clavulanate Potassium (Augmentin 875 Mg-125 Mg Tab) 1 tab PO Q12H [facility]; Protocol Enoxaparin Sodium (Lovenox) 40 mg SC DAILY [facility] Last Admin: 08/27/18 09:43 Dose: 40 mg Folic Acid (Folic Acid) 1 mg PO DAILY [facility] Last Admin: 08/27/18 13:14 Dose: 1 mg Gabapentin (Neurontin) 100 mg PO TID [facility] Last Admin: 08/27/18 13:08 Dose: 100 mg Guaifenesin (Robitussin) 100 mg PO Q4H PRN PRN Reason: Cough Last Admin: 08/27/18 13:13 Dose: 100 mg Methylprednisolone (Solu-Medrol) 40 mg IVP Q8H [facility] Mirtazapine (Remeron) 15 mg PO HS [facility] Last Admin: 08/26/18 21:18 Dose: 15 mg Montelukast Sodium (Singulair) 10 mg PO HS [facility] Last Admin: 08/26/18 21:18 Dose: 10 mg Multivitamins (Hexavitamin) 1 tab PO DAILY [facility] Last Admin: 08/27/18 09:42 Dose: 1 tab Nicotine (Nicoderm Cq) 1 patch TD DAILY [facility] Last Admin: 08/27/18 09:44 Dose: 1 patch Pantoprazole Sodium (Protonix Ec Tab) 40 mg PO DAILY [facility] Last Admin: 08/27/18 09:42 Dose: 40 mg Sertraline HCl (Zoloft) 150 mg PO DAILY [facility] Last Admin: 08/27/18 09:42 Dose: 150 mg Tamsulosin HCl (Flomax) 0.4 mg PO DAILY [facility] Last Admin: 08/27/18 09:41 Dose: 0.4 mg Tiotropium [place] (Spiriva) 18 mcg INH RQ24 [facility] Last Admin: 08/27/18 08:15 Dose: Not Given - Labs Labs: 08/27/18 11:08 08/27/18 11:08 - Constitutional Appears: Non-toxic, No Acute Distress - Head Exam Head Exam: ATRAUMATIC, NORMAL INSPECTION, NORMOCEPHALIC - Eye Exam Eye Exam: Normal appearance - ENT Exam ENT Exam: Mucous Membranes Moist, Normal External Ear Exam. absent: TM's Normal Bilaterally Additional comments: white pus present in ear canal, erythema - Respiratory Exam Respiratory Exam: Wheezes (minimal wheezing on left side ), NORMAL BREATHING PATTERN - Cardiovascular Exam Cardiovascular Exam: REGULAR RHYTHM, RRR, +S1, +S2 - GI/Abdominal Exam GI & Abdominal Exam: Soft, Normal Bowel Sounds. absent: Tenderness - Extremities Exam Extremities Exam: Normal Inspection. absent: Pedal Edema, Tenderness - Neurological Exam Neurological Exam: Alert, Awake - Psychiatric Exam Psychiatric exam: Normal Affect, Normal Mood - Skin Skin Exam: Intact, Normal Color, Warm Assessment and Plan - Assessment and Plan (Free Text) Assessment: COPD exacerbation chest xray: no acute findings. COPD. (see full report) Duoneb INH q4h Guaifenesin 100mg PO q4h prn cough Singulair 10mg PO HS SoluMedrol decreased to 40mg ivp q8h (from 60mg IVP q6h) Spiriva 18mcg INH q12h Otitis Media Augementin 875-125mg po q12h Floxin otic solution BID Depression Remeron 15mg PO HS Zoloft 150mg PO daily Tobacco use disorder nicotine patch 14mg/24h tobacco cessation encouraged BPH continue Flomax 0.4mg PO daily Chronic pain continue gabapentin 100mg PO TID Prophylactic measure continue protonix 40mg PO daily Lovenox 40mg SC daily multivitamin Folic Acid Maalox 30mg PO daily prn Ensure TID All management as per Dr. Gonzalez
[2018-08-27] MEDS: Amoxicillin-Clav 875-125 mg Tab PO SCH (14:35)
[2018-08-27] MEDS: Ofloxacin 0.3% Otic Soln AU SCH (18:04)
[2018-08-28] MEDS: Albuterol-Ipratrop 3 mg / 0.5 (3 ml) UD INH SCH ×4 (00:05→11:27)
[2018-08-28] MEDS: Amoxicillin-Clav 875-125 mg Tab PO SCH ×2 (02:55→13:42)
[2018-08-28] MEDS: MethylPREDNISolone 40 mg Vial IVP SCH ×2 (03:17→12:26)
[2018-08-28 07:45] LABS: EOS % 0.1 % (0.0-4.0); HEMOGLOBIN 9.1 g/dL (12.0-18.0); LYMPH # 0.4 K/uL (1.0-4.3); LYMPH % 2.3 % (20.0-40.0); MEAN CELL VOLUME 81.7 fL (80.0-94.0); MEAN CORPUSCULAR HEMOGLOBIN 26.4 pg (27.0-31.0); MEAN CORPUSCULAR HGB CONC 32.3 g/dL (33.0-37.0); MEAN PLATELET VOLUME 8.6 fL (7.2-11.7); MONO # 0.4 K/uL (0.0-0.8); MONO % 2.2 % (0.0-10.0); NEUT # 16.9 K/uL (1.8-7.0); NEUT % 95.4 % (50.0-75.0); PLATELET COUNT 312 K/uL (130-400); RBC 3.44 Mil/uL (4.40-5.90); RED CELL DISTRIBUTION WIDTH 20.5 % (11.5-14.5); WHITE BLOOD COUNT 17.7 K/uL (4.8-10.8)
[2018-08-28 08:46] LABS: ALB/GLOB RATIO 1.2 (1.0-2.1); ALBUMIN 3.2 g/dL (3.5-5.0); ALT/SGPT 28 U/L (21-72); AST/SGOT 13 U/L (17-59); BLOOD UREA NITROGEN 23 mg/dL (9-20); CALCIUM 8.7 mg/dl (8.6-10.4); GFR NON-AFRICAN AMERICAN > 60
[2018-08-28 08:49] LABS: LYMPHOCYTE 3 % (20-40); MONOCYTE 3 % (0-10); NEUTROPHIL 94 % (50-75); PLATELET ESTIMATE NORMAL (NORMAL); TOTAL CELLS COUNTED 100
[2018-08-28 08:50] LABS: ANISOCYTOSIS SLIGHT; HYPOCHROMIC SLIGHT; MICROCYTOSIS SLIGHT; OVALOCYTES SLIGHT; POIKILOCYTOSIS SLIGHT; TARGET CELLS SLIGHT
[2018-08-28] MEDS: Enoxaparin 40 mg Syringe SC SCH (09:47)
[2018-08-28] MEDS: Multiple Vitamins Tab PO SCH (09:47)
[2018-08-28] MEDS: Pantoprazole 40 mg EC Tab PO SCH (09:47)
[2018-08-28] MEDS: guaiFENesin 100 mg/5 ml Syrup UD PO PRN ×2 (10:00→15:17)
[2018-08-28] MEDS: Ofloxacin 0.3% Otic Soln AU SCH (10:00)
--- NOTE | 2018-08-28 11:01 | CP.PCM.PN ---
Subjective - Date & Time of Evaluation Date of Evaluation: 08/28/18 Time of Evaluation: 07:00 - Subjective Subjective: PGY2- Progress Note for Dr. Gonzalez Patient seen and examined and in no acute distress. Patient says his breathing is much improved and feels much less shortness of breath. Patient says he has no ear pain or drainage. Patient denies any headache, chest pain, abdominal pain, nausea, vomiting, constipation, or diarrhea. Objective - Vital Signs/Intake and Output Vital Signs (last 24 hours): Temp Pulse Resp BP Pulse Ox 98.5 F 96 H 20 143/92 H 99 08/28/18 08:04 08/28/18 08:04 08/28/18 08:04 08/28/18 08:04 08/28/18 08:04 - Medications Medications: Current Medications Acetaminophen (Tylenol 325mg Tab) 650 mg PO Q6 PRN PRN Reason: Pain, moderate (4-7) Al Hydrox/Mg Hydrox/Simethicone (Maalox 30 Ml) 30 ml PO DAILY PRN PRN Reason: Dyspepsia Albuterol/Ipratropium (Duoneb 3 Mg/0.5 Mg (3 Ml) Ud) 3 ml INH RQ4 [facility] Last Admin: 08/28/18 08:04 Dose: 3 ml Amoxicillin/Clavulanate Potassium (Augmentin 875 Mg-125 Mg Tab) 1 tab PO Q12H [facility]; Protocol Last Admin: 08/28/18 02:55 Dose: 1 tab Enoxaparin Sodium (Lovenox) 40 mg SC DAILY [facility] Last Admin: 08/28/18 09:47 Dose: 40 mg Folic Acid (Folic Acid) 1 mg PO DAILY [facility] Last Admin: 08/27/18 13:14 Dose: 1 mg Gabapentin (Neurontin) 100 mg PO TID [facility] Last Admin: 08/28/18 09:47 Dose: 100 mg Guaifenesin (Robitussin) 100 mg PO Q4H PRN PRN Reason: Cough Last Admin: 08/27/18 20:27 Dose: 100 mg Lisinopril (Zestril) 10 mg PO DAILY [facility] Methylprednisolone (Solu-Medrol) 40 mg IVP Q8H [facility] Last Admin: 08/28/18 03:17 Dose: 40 mg Mirtazapine (Remeron) 15 mg PO HS [facility] Last Admin: 08/27/18 21:23 Dose: 15 mg Montelukast Sodium (Singulair) 10 mg PO HS [facility] Last Admin: 08/27/18 21:23 Dose: 10 mg Multivitamins (Hexavitamin) 1 tab PO DAILY [facility] Last Admin: 08/28/18 09:47 Dose: 1 tab Nicotine (Nicoderm Cq) 1 patch TD DAILY [facility] Last Admin: 08/28/18 09:46 Dose: 1 patch Ofloxacin (Floxin 0.3% Otic Soln) 0 ml AU BID [facility] Last Admin: 08/27/18 18:04 Dose: 10 drop Pantoprazole Sodium (Protonix Ec Tab) 40 mg PO DAILY [facility] Last Admin: 08/28/18 09:47 Dose: 40 mg Sertraline HCl (Zoloft) 150 mg PO DAILY [facility] Last Admin: 08/28/18 09:46 Dose: 150 mg Tamsulosin HCl (Flomax) 0.4 mg PO DAILY [facility] Last Admin: 08/28/18 09:47 Dose: 0.4 mg Tiotropium [place] (Spiriva) 18 mcg INH RQ24 [facility] Last Admin: 08/27/18 08:15 Dose: Not Given - Labs Labs: 08/28/18 07:35 08/28/18 07:35 - Additional Findings Additional findings: - Constitutional Appears: Non-toxic, No Acute Distress - Head Exam Head Exam: ATRAUMATIC, NORMAL INSPECTION, NORMOCEPHALIC - Eye Exam Eye Exam: Normal appearance - ENT Exam ENT Exam: Mucous Membranes Moist, Normal External Ear Exam. - Respiratory Exam Respiratory Exam: Wheezes (minimal wheezing on left side ), NORMAL BREATHING PATTERN - Cardiovascular Exam Cardiovascular Exam: REGULAR RHYTHM, RRR, +S1, +S2 - GI/Abdominal Exam GI & Abdominal Exam: Soft, Normal Bowel Sounds. absent: Tenderness - Extremities Exam Extremities Exam: Normal Inspection. absent: Pedal Edema, Tenderness - Neurological Exam Neurological Exam: Alert, Awake - Psychiatric Exam Psychiatric exam: Normal Affect, Normal Mood - Skin Skin Exam: Intact, Normal Color, Warm Assessment and Plan - Assessment and Plan (Free Text) Assessment: COPD exacerbation, improved chest xray: no acute findings. COPD. (see full report) Duoneb INH q4h Guaifenesin 100mg PO q4h prn cough Singulair 10mg PO HS SoluMedrol decreased to 40mg ivp q8h (from 60mg IVP q6h) Spiriva 18mcg INH q12h Otitis Media Augementin 875-125mg po q12h Floxin otic solution BID Depression Remeron 15mg PO HS Zoloft 150mg PO daily Tobacco use disorder nicotine patch 14mg/24h tobacco cessation encouraged BPH continue Flomax 0.4mg PO daily Chronic pain continue gabapentin 100mg PO TID Prophylactic measure continue protonix 40mg PO daily Lovenox 40mg SC daily multivitamin Folic Acid Maalox 30mg PO daily prn Ensure TID Dispo: Patient stable for discharge. Patient will be sent home with Medrol dose pack for COPD and Augment and Floxin otic for his otitis media. All management as per Dr. Gonzalez
[2018-08-28] MEDS: Tiotropium 18 mcg Cap For Inhalation INH SCH (11:28)
[2018-08-28 16:02] VITALS: BP 122/74; PULSE 106; TEMP 98.4; O2SAT 95
== END 2018-08-28 17:17 | disposition home or self-care (01) | DRG 88 ==
LOC: C.ER 10:46 → C.9E 14:39 → C.5S 16:34 → OBSVTOIN 08-27 16:28
PROVIDERS: ADMIT Internal Medicine Pulmonary Disease; ATTEND Internal Medicine Pulmonary Disease
DX: J44.1 Chronic obstructive pulmonary disease with (acute) exacerbation (principal); I10 Essential (primary) hypertension; F32.9 Major depressive disorder, single episode, unspecified; F17.210 Nicotine dependence, cigarettes, uncomplicated; G89.29 Other chronic pain; F41.9 Anxiety disorder, unspecified; N40.0 Benign prostatic hyperplasia without lower urinary tract symptoms; H66.90 Otitis media, unspecified, unspecified ear

== ENCOUNTER 2018-09-05 19:35 | Inpatient (IN) | payer MEDICAID ==
[2018-09-05 19:36] VITALS: BMI 18.8
[2018-09-05] MEDS ORDERED: Albuterol-Ipratrop 3 mg / 0.5 (3 ml) UD ONE ×2 (19:40→20:23)
--- NOTE | 2018-09-05 19:54 | C.PDOC ---
History Of Present Illness 58 year old male presents to the ED with SOB. Patient has a history of smoking 2 packs a day but currently only smokes half a pack per day. He speaks in 5-6 word sentences and denies any relief with the inhaler.Denies any chest pain or palpitations. No f/c/n/v Time Seen by Provider: 09/05/18 19:53 Chief Complaint (Nursing): Shortness Of Breath History Per: Patient History/Exam Limitations: no limitations Onset/Duration Of Symptoms: Hrs Current Symptoms Are (Timing): Still Present Initiating Event: Exposure To Smoke, Other Exacerbating Factor(s): Coughing Current Respiratory Medications: See Home Med List Severity: Moderate Pain Scale Rating Of: 4 Associated Symptoms: denies: Fever, Chills, Chest Pain Reports Recently: Seen In ED, Treated By A Physician, Hospitalized Recent travel outside of the [place]: No Additional History Per: Patient Past Medical History Reviewed: Historical Data, Nursing Documentation, Vital Signs Vital Signs: Last Vital Signs Temp 98.0 F 09/05/18 19:39 Pulse 101 H 09/05/18 19:39 Resp 26 H 09/05/18 19:39 BP 158/94 H 09/05/18 19:39 Pulse Ox 91 L 09/05/18 19:39 - Medical History PMH: Anxiety, Asthma, Bronchitis, COPD, Depression, Gastrointestinal Ulcer, HTN, Pneumonia Denies: Chronic Kidney Disease Surgical History: Appendectomy, Tonsillectomy - [facility] CONTR ABD ARTERIOGRM NEC (05/20/07) DETOXIFICATION SERVICES FOR SUBSTANCE ABUSE TREATMENT (07/14/18) ESOPHAGOGASTRODUODENOSCOPY [EGD] W/CLOSED BIOPSY (05/20/07) EXCISION OF LOWER ESOPHAGUS, ENDO, DIAGN (05/21/17) EXTIRPATION OF MATTER FROM LOWER ESOPHAGUS, ENDO (05/21/17) GROUP CART ATTENDANT FOR SUBSTANCE ABUSE TREATMENT, PSYCHOEDUCATION (05/05/18) GROUP CART ATTENDANT FOR SUBSTANCE ABUSE, COGNITIVE BEHAVIORAL (05/05/18) GROUP PSYCHOTHERAPY (07/14/18) INDIV CART ATTENDANT FOR SUBSTANCE ABUSE TREATMENT, PSYCHOEDUCATION (01/14/17) INDIV CART ATTENDANT FOR SUBSTANCE ABUSE, COGNITIVE BEHAVIORAL (01/14/17) INDIV PSYCHOTHERAPY FOR SUBSTANCE ABUSE TREATMENT, SUPPORT (07/14/18) INDIV PSYCHOTHERAPY FOR SUBSTANCE ABUSE, COGNITIV BEHAVIORAL (05/05/18) INDIV PSYCHOTHERAPY FOR SUBSTANCE ABUSE, PSYCHOEDUCATION (07/14/18) INDIVIDUAL PSYCHOTHERAPY, COGNITIVE-BEHAVIORAL (05/05/18) INDIVIDUAL PSYCHOTHERAPY, SUPPORTIVE (05/05/18) INJECT/INFUSE NEC (03/20/12) MEDICATION MANAGEMENT (03/12/17) MEDS MGMT FOR SUBSTANCE ABUSE TREATMENT, OTH REPL MED (03/12/17) Family History: States: No Known Family Hx - Social History Hx Tobacco Use: Yes Hx Alcohol Use: Yes Hx Substance Use: Yes (marijuana) - Immunization History Hx Tetanus Toxoid Vaccination: Yes Hx Influenza Vaccination: Yes Hx Pneumococcal Vaccination: Yes Review Of Systems Constitutional: Negative for: Fever, Chills Cardiovascular: Negative for: Chest Pain, Palpitations Respiratory: Positive for: Shortness of Breath, Wheezing. Negative for: Cough, Pleuritic Pain Gastrointestinal: Negative for: Nausea, Vomiting Genitourinary: Negative for: Dysuria Musculoskeletal: Negative for: Back Pain Skin: Negative for: Rash Neurological: Negative for: Weakness, Numbness Psych: Negative for: Anxiety Physical Exam - Physical Exam Appears: Non-toxic, In Acute Distress Skin: Warm, Dry Head: Normacephalic Eye(s): bilateral: Normal Inspection Oral Mucosa: Moist Neck: Trachea Midline, Supple Chest: Symmetrical, No Tenderness Cardiovascular: Rhythm Regular Respiratory: Decreased Breath Sounds, No Rales, Rhonchi, Wheezing (Bilateral) Gastrointestinal/Abdominal: Soft, No Tenderness Back: Normal Inspection Extremity: Normal ROM Extremity: Bilateral: Atraumatic, Normal Color And Temperature Pulses: Left Dorsalis Pedis: Normal, Right Dorsalis Pedis: Normal Neurological/Psych: Oriented x3 Gait: Steady ED Course And Treatment - Laboratory Results Result Diagrams: 09/05/18 20:47 09/05/18 20:47 ECG: Interpreted By Me, Viewed By Me ECG Rhythm: Sinus Rhythm (96), Nonspecific Changes O2 Sat by Pulse Oximetry: 91 (RA) Pulse Ox Interpretation: Abnormal - Radiology CXR: Interpreted by Me, Viewed By Me CXR Interpretation: Yes: COPD. No: Infiltrates, Fracture, Pnemothorax Progress Note: Ordered blood work, EKG, influenza AB, and CXR. Administered Duoneb nebulizer, and IV fluids. Critical Care Time - Critical Care Note Total Time (in mins): 30 Documented critical care: time excludes all time spent performing seperately billable procedures. Disposition Discussed With : Dino Gonzalez Comment: accepted the pt on his service and took over the care at 10:04PM Doctor Will See Patient In The: Hospital Counseled Patient/Family Regarding: Studies Performed, Diagnosis, Need For Followup - Disposition Disposition: HOSPITALIZED Disposition Time: 19:54 Condition: FAIR Forms: [facility] ([place]) - POA Present On Arrival: None - Clinical Impression Clinical Impression: COPD exacerbation, Dyspnea - Scribe Statement The provider has reviewed the documentation as recorded by the Scribe (Dhaval Franklin) All medical record entries made by the Scribe were at my direction and personally dictated by me. I have reviewed the chart and agree that the record accurately reflects my personal performance of the history, physical exam, medi xochilt decision making, and the department course for this patient. I have also personally directed, reviewed, and agree with the discharge instructions and disposition.
[2018-09-05] MEDS ORDERED: Sodium Chloride 0.9% 1,000 ML IV ONE (19:57)
[2018-09-05] MEDS: Albuterol-Ipratrop 3 mg / 0.5 (3 ml) UD IH SCH ×2 (20:21→20:30)
[2018-09-05 20:52] LABS: BASO % 0.4 % (0.0-2.0); EOS # 0.4 K/uL (0.0-0.7); EOS % 3.8 % (0.0-4.0); HEMOGLOBIN 10.1 g/dL (12.0-18.0); LYMPH # 1.9 K/uL (1.0-4.3); LYMPH % 18.3 % (20.0-40.0); MEAN CELL VOLUME 79.8 fL (80.0-94.0); MEAN CORPUSCULAR HEMOGLOBIN 26.1 pg (27.0-31.0); MEAN CORPUSCULAR HGB CONC 32.7 g/dL (33.0-37.0); MEAN PLATELET VOLUME 7.4 fL (7.2-11.7); MONO # 0.8 K/uL (0.0-0.8); MONO % 7.4 % (0.0-10.0); NEUT # 7.4 K/uL (1.8-7.0); NEUT % 70.1 % (50.0-75.0); RBC 3.85 Mil/uL (4.40-5.90); RED CELL DISTRIBUTION WIDTH 21.2 % (11.5-14.5); WHITE BLOOD COUNT 10.5 K/uL (4.8-10.8)
[2018-09-05 20:55] LABS: ABG ALLEN TEST POS; ARTERIAL BLOOD GAS HCO3 27.9 mmol/L (21-28); ARTERIAL BLOOD GAS PCO2 43 mm/Hg (35-45); ARTERIAL BLOOD GAS PH 7.43 (7.35-7.45); ARTERIAL BLOOD GAS PO2 157 mm/Hg (80-100); ARTERIAL BLOOD GAS TCO2 29.8 mmol/L (22-28)
[2018-09-05] MEDS ORDERED: Sodium Chloride 0.9% 250 ML IV ONE (21:00)
[2018-09-05 21:14] LABS: ALB/GLOB RATIO 1.4 (1.0-2.1); ALT/SGPT 23 U/L (21-72); AST/SGOT 22 U/L (17-59); BLOOD UREA NITROGEN 10 mg/dL (9-20); CALCIUM 8.2 mg/dl (8.6-10.4); GFR NON-AFRICAN AMERICAN > 60
[2018-09-05 23:54] VITALS: RESP 20
[2018-09-06] MEDS: Albuterol-Ipratrop 3 mg / 0.5 (3 ml) UD INH SCH ×3 (08:20→16:48)
--- NOTE | 2018-09-06 08:24 | RAD ---
HISTORY: SOB COMPARISON: Chest x-ray performed 08/25/18 TECHNIQUE: Chest, one view. FINDINGS: LUNGS: Hyperinflation may be seen in the setting of COPD. Mild basilar atelectasis. Please note that chest x-ray has limited sensitivity for the detection of pulmonary masses. PLEURA: Blunting of the hemidiaphragm bilaterally consistent with small pleural effusions and/or thickening. No definite pneumothorax . CARDIOVASCULAR: The cardiomediastinal silhouette appears within normal limits of size. OSSEOUS STRUCTURES: Degenerative changes. VISUALIZED UPPER ABDOMEN: Unremarkable. OTHER FINDINGS: None. IMPRESSION: Hyperinflation may be seen in the setting of COPD. Blunting of the hemidiaphragm bilaterally consistent with small pleural effusions and/or thickening. Mild basilar atelectasis.
[2018-09-06] MEDS: MethylPREDNISolone 40 mg Vial IVP SCH ×3 (09:15→21:48)
[2018-09-06] MEDS: Enoxaparin 40 mg Syringe SC SCH (10:14)
[2018-09-06] MEDS: Multiple Vitamins Tab PO SCH (10:15)
[2018-09-06] MEDS: guaiFENesin 200 mg/10 ml Syrup UD PO PRN ×3 (13:41→22:00)
[2018-09-07] MEDS: guaiFENesin 200 mg/10 ml Syrup UD PO PRN ×4 (04:24→22:17)
[2018-09-07] MEDS: MethylPREDNISolone 40 mg Vial IVP SCH ×3 (05:58→22:14)
[2018-09-07] MEDS: Enoxaparin 40 mg Syringe SC SCH (09:03)
[2018-09-07] MEDS: Multiple Vitamins Tab PO SCH (09:03)
[2018-09-07] MEDS ORDERED: Albuterol-Ipratrop 3 mg / 0.5 (3 ml) UD INH PRN (14:40)
[2018-09-07] MEDS: Albuterol-Ipratrop 3 mg / 0.5 (3 ml) UD INH SCH (22:30)
[2018-09-08] MEDS: guaiFENesin 200 mg/10 ml Syrup UD PO PRN ×4 (02:58→21:43)
[2018-09-08] MEDS: Albuterol-Ipratrop 3 mg / 0.5 (3 ml) UD INH SCH ×5 (04:10→20:20)
[2018-09-08] MEDS: MethylPREDNISolone 40 mg Vial IVP SCH ×3 (05:32→21:42)
--- NOTE | 2018-09-08 07:21 | HP ---
HISTORY OF PRESENT ILLNESS: A 58-year-old male chief complaint shortness of breath, severe fatigue, tiredness. cough. Patient came to hospital, advised admission. Patient had acute COPD. PHYSICAL EXAMINATION: GENERAL: The patient is awake, alert, and oriented. VITAL SIGNS: Temperature 98 and pulse ____. HEENT: Within normal limits. NECK: Supple. CHEST: Symmetrical. HEART: Regular. ABDOMEN: Soft. EXTREMITIES: No edema. ____. ASSESSMENT AND PLAN: The patient suffers from chronic obstructive pulmonary disease, bronchitis. Patient getting bed rest, supportive care, bronchodilator. Dino Gonzalez MD
--- NOTE | 2018-09-08 07:55 | CP.PCM.PN ---
Subjective - Date & Time of Evaluation Date of Evaluation: 09/08/18 Time of Evaluation: 07:00 - Subjective Subjective: PGY2- Progress Note for Dr. Gonzalez Patient seen and examined at bedside and in no acute distress. Patient still admits to having wheezing and shortness of breath. Patient denies any headache, chest pain, abdominal pain, nausea, vomiting, constipation, or diarrhea. Objective - Vital Signs/Intake and Output Vital Signs (last 24 hours): Temp Pulse Resp BP Pulse Ox 98 F 90 20 128/69 97 09/08/18 07:36 09/08/18 07:36 09/08/18 07:36 09/08/18 07:36 09/08/18 07:36 Intake and Output: 09/08/18 09/08/18 06:59 18:59 Intake Total 300 Balance 300 - Medications Medications: Current Medications Acetaminophen (Tylenol 325mg Tab) 650 mg PO Q6 PRN PRN Reason: Pain, moderate (4-7) Albuterol/Ipratropium (Duoneb 3 Mg/0.5 Mg (3 Ml) Ud) 3 ml INH RQ4 PRN PRN Reason: Shortness of Breath Albuterol/Ipratropium (Duoneb 3 Mg/0.5 Mg (3 Ml) Ud) 3 ml INH RQ4 [facility] Last Admin: 09/08/18 06:09 Dose: Not Given Enoxaparin Sodium (Lovenox) 40 mg SC DAILY [facility] Last Admin: 09/07/18 09:03 Dose: 40 mg Famotidine (Pepcid) 20 mg PO DAILY [facility] Last Admin: 09/07/18 09:03 Dose: 20 mg Folic Acid (Folic Acid) 1 mg PO DAILY [facility] Last Admin: 09/07/18 09:03 Dose: 1 mg Gabapentin (Neurontin) 100 mg PO TID [facility] Last Admin: 09/07/18 17:36 Dose: 100 mg Guaifenesin (Robitussin) 200 mg PO Q4H PRN PRN Reason: Cough and congestion Last Admin: 09/08/18 02:58 Dose: 200 mg Lisinopril (Zestril) 10 mg PO DAILY [facility] Last Admin: 09/07/18 09:03 Dose: 10 mg Methylprednisolone (Solu-Medrol) 40 mg IVP Q8 [facility] Last Admin: 10/15/18 05:32 Dose: 40 mg Montelukast Sodium (Singulair) 10 mg PO HS [facility] Last Admin: 09/07/18 22:14 Dose: 10 mg Multivitamins (Hexavitamin) 1 tab PO DAILY [facility] Last Admin: 09/07/18 09:03 Dose: 1 tab Tamsulosin HCl (Flomax) 0.4 mg PO DAILY [facility] Last Admin: 09/07/18 09:03 Dose: 0.4 mg - Labs Labs: 09/05/18 20:47 09/05/18 20:47 PT 11.0 SECONDS (9.7-12.2) 09/05/18 20:47 INR 1.0 09/05/18 20:47 APTT 33 SECONDS (21-34) 09/05/18 20:47 - Constitutional Appears: Non-toxic, No Acute Distress - Head Exam Head Exam: ATRAUMATIC, NORMAL INSPECTION, NORMOCEPHALIC - Eye Exam Eye Exam: EOMI, Normal appearance - ENT Exam ENT Exam: Mucous Membranes Moist - Respiratory Exam Respiratory Exam: Rales, Wheezes - Cardiovascular Exam Cardiovascular Exam: REGULAR RHYTHM, RRR, +S1, +S2 - GI/Abdominal Exam GI & Abdominal Exam: Soft, Normal Bowel Sounds. absent: Tenderness - Extremities Exam Extremities Exam: Normal Inspection. absent: Pedal Edema, Tenderness - Neurological Exam Neurological Exam: Alert, Awake, Oriented x3 - Psychiatric Exam Psychiatric exam: Normal Affect, Normal Mood - Skin Skin Exam: Intact, Normal Color, Warm Assessment and Plan - Assessment and Plan (Free Text) Assessment: COPD Exacerbation Cxray: hyperinflation may be seen in setting of COPD. Blunting of hemidiaphragm bilaterally consistent with small pleural effusions and/or thickening. Mild basilar atelectasis. Robitussin 200mg po q4h prn SoluMedrol 40mg ivp decreased to q12h from q8h Singulair 10mg po HS Duonebs q4h kathy and PRN HTN Lisinopril 10mg po daily Depression Remeron 15mg PO HS Zoloft 150mg PO daily Tobacco use disorder nicotine patch 14mg/24h tobacco cessation encouraged BPH continue Flomax 0.4mg PO daily Chronic pain continue gabapentin 100mg PO TID Prophylactic measure Pepcid 20mg po daily Lovenox 40mg SC daily Tylenol 650mg po q6h prn multivitamin Folic Acid Management as per Dr. Gonzalez.
[2018-09-08] MEDS: Multiple Vitamins Tab PO SCH (09:41)
[2018-09-08] MEDS: Enoxaparin 40 mg Syringe SC SCH (09:42)
[2018-09-08 11:36] LABS: HEMOGLOBIN 9.7 g/dL (12.0-18.0); LYMPH # 1.1 K/uL (1.0-4.3); LYMPH % 6.4 % (20.0-40.0); MEAN CELL VOLUME 80.2 fL (80.0-94.0); MEAN CORPUSCULAR HEMOGLOBIN 25.9 pg (27.0-31.0); MEAN CORPUSCULAR HGB CONC 32.3 g/dL (33.0-37.0); MEAN PLATELET VOLUME 8.4 fL (7.2-11.7); MONO # 0.4 K/uL (0.0-0.8); MONO % 2.1 % (0.0-10.0); NEUT # 15.5 K/uL (1.8-7.0); NEUT % 91.5 % (50.0-75.0); PLATELET COUNT 306 K/uL (130-400); RBC 3.75 Mil/uL (4.40-5.90); RED CELL DISTRIBUTION WIDTH 21.4 % (11.5-14.5)
[2018-09-08 11:53] LABS: ALB/GLOB RATIO 1.4 (1.0-2.1); ALBUMIN 3.4 g/dL (3.5-5.0); ALT/SGPT 20 U/L (21-72); AST/SGOT 17 U/L (17-59); BLOOD UREA NITROGEN 23 mg/dL (9-20); CALCIUM 8.9 mg/dl (8.6-10.4); GFR NON-AFRICAN AMERICAN > 60
[2018-09-08 12:09] LABS: BANDS 1 % (0-2); LYMPHOCYTE 4 % (20-40); MONOCYTE 1 % (0-10); NEUTROPHIL 94 % (50-75); PLATELET ESTIMATE NORMAL (NORMAL); TOTAL CELLS COUNTED 100
[2018-09-08 12:10] LABS: ANISOCYTOSIS SLIGHT; HYPOCHROMIC SLIGHT; POLYCHROMIC SLIGHT
--- NOTE | 2018-09-08 20:42 | CARD ---
APPROVED REPORT Date of service: 09/05/2018 EKG Measurement Heart [id number] <Conclusion> Normal sinus rhythm Normal ECG
[2018-09-09] MEDS: Albuterol-Ipratrop 3 mg / 0.5 (3 ml) UD INH SCH ×6 (02:00→23:52)
[2018-09-09 06:47] LABS: BASO % 0.1 % (0.0-2.0); HEMOGLOBIN 9.4 g/dL (12.0-18.0); LYMPH # 1.4 K/uL (1.0-4.3); LYMPH % 8.2 % (20.0-40.0); MEAN CELL VOLUME 80.9 fL (80.0-94.0); MEAN CORPUSCULAR HEMOGLOBIN 25.9 pg (27.0-31.0); MEAN PLATELET VOLUME 8.2 fL (7.2-11.7); MONO # 0.6 K/uL (0.0-0.8); MONO % 3.5 % (0.0-10.0); NEUT # 15.3 K/uL (1.8-7.0); NEUT % 88.2 % (50.0-75.0); PLATELET COUNT 267 K/uL (130-400); RBC 3.61 Mil/uL (4.40-5.90); RED CELL DISTRIBUTION WIDTH 21.9 % (11.5-14.5); WHITE BLOOD COUNT 17.4 K/uL (4.8-10.8)
[2018-09-09] MEDS: guaiFENesin 200 mg/10 ml Syrup UD PO PRN ×4 (06:54→21:18)
[2018-09-09 07:31] LABS: ALB/GLOB RATIO 1.2 (1.0-2.1); ALBUMIN 2.9 g/dL (3.5-5.0); ALT/SGPT 25 U/L (21-72); AST/SGOT 16 U/L (17-59); BLOOD UREA NITROGEN 23 mg/dL (9-20); CALCIUM 8.8 mg/dl (8.6-10.4); GFR NON-AFRICAN AMERICAN > 60
[2018-09-09 09:10] LABS: ANISOCYTOSIS SLIGHT; HYPOCHROMIC SLIGHT; LYMPHOCYTE 7 % (20-40); MONOCYTE 2 % (0-10); NEUTROPHIL 91 % (50-75); PLATELET ESTIMATE NORMAL (NORMAL); TOTAL CELLS COUNTED 100
[2018-09-09 09:11] LABS: OVALOCYTES SLIGHT; POLYCHROMIC SLIGHT
--- NOTE | 2018-09-09 09:59 | CP.PCM.PN ---
Subjective - Date & Time of Evaluation Date of Evaluation: 09/09/18 Time of Evaluation: 07:20 - Subjective Subjective: Medicine progress note (PGY 2)- Dr. Gonzalez's service Patient was seen and examined at bedside. Patient was resting comfortably in bed in no acute distress. Patient admits to improving symptoms. Patient still admits to mild wheezing and shortness of breath but denies chest pain, palpitations, dizziness, abdominal pain, nausea and vomiting. Objective - Vital Signs/Intake and Output Vital Signs (last 24 hours): Temp Pulse Resp BP Pulse Ox 98.1 F 88 20 130/72 96 09/09/18 00:00 09/09/18 00:00 09/09/18 00:00 09/09/18 00:00 09/09/18 00:00 Intake and Output: 09/09/18 09/09/18 06:59 18:59 Intake Total 450 Balance 450 - Medications Medications: Current Medications Acetaminophen (Tylenol 325mg Tab) 650 mg PO Q6 PRN PRN Reason: Pain, moderate (4-7) Last Admin: 09/08/18 11:16 Dose: 650 mg Albuterol/Ipratropium (Duoneb 3 Mg/0.5 Mg (3 Ml) Ud) 3 ml INH RQ4 PRN PRN Reason: Shortness of Breath Albuterol/Ipratropium (Duoneb 3 Mg/0.5 Mg (3 Ml) Ud) 3 ml INH RQ4 [facility] Last Admin: 09/09/18 08:53 Dose: 3 ml Enoxaparin Sodium (Lovenox) 40 mg SC DAILY [facility] Last Admin: 09/08/18 09:42 Dose: 40 mg Famotidine (Pepcid) 20 mg PO DAILY [facility] Last Admin: 09/08/18 09:41 Dose: 20 mg Folic Acid (Folic Acid) 1 mg PO DAILY [facility] Last Admin: 09/08/18 09:41 Dose: 1 mg Gabapentin (Neurontin) 100 mg PO TID [facility] Last Admin: 09/08/18 17:37 Dose: 100 mg Guaifenesin (Robitussin) 200 mg PO Q4H PRN PRN Reason: Cough and congestion Last Admin: 09/09/18 06:54 Dose: 200 mg Lisinopril (Zestril) 10 mg PO DAILY [facility] Last Admin: 09/08/18 09:41 Dose: 10 mg Methylprednisolone (Solu-Medrol) 40 mg IVP Q12 [facility] Last Admin: 09/08/18 21:42 Dose: 40 mg Mirtazapine (Remeron) 15 mg PO HS [facility] Last Admin: 09/08/18 21:57 Dose: 15 mg Montelukast Sodium (Singulair) 10 mg PO HS [facility] Last Admin: 09/08/18 21:42 Dose: 10 mg Multivitamins (Hexavitamin) 1 tab PO DAILY [facility] Last Admin: 09/08/18 09:41 Dose: 1 tab Sertraline HCl (Zoloft) 150 mg PO DAILY [facility] Last Admin: 09/08/18 09:48 Dose: 150 mg Tamsulosin HCl (Flomax) 0.4 mg PO DAILY [facility] Last Admin: 09/08/18 09:41 Dose: 0.4 mg - Labs Labs: 09/09/18 06:40 09/09/18 06:40 PT 11.0 SECONDS (9.7-12.2) 09/05/18 20:47 INR 1.0 09/05/18 20:47 APTT 33 SECONDS (21-34) 09/05/18 20:47 - Constitutional Appears: Well, No Acute Distress - Head Exam Head Exam: ATRAUMATIC, NORMAL INSPECTION - Eye Exam Eye Exam: EOMI, Normal appearance - ENT Exam ENT Exam: Mucous Membranes Moist - Respiratory Exam Respiratory Exam: Wheezes Additional comments: Expiratory wheezing bilaterally - Cardiovascular Exam Cardiovascular Exam: REGULAR RHYTHM, +S1 - GI/Abdominal Exam GI & Abdominal Exam: Soft, Normal Bowel Sounds. absent: Firm, Guarding, Rigid, Tenderness - Extremities Exam Extremities Exam: Normal Inspection. absent: Calf Tenderness, Full ROM, Pedal Edema - Back Exam Back Exam: NORMAL INSPECTION. absent: CVA tenderness (L), CVA tenderness (R) - Neurological Exam Neurological Exam: Alert, Awake, Oriented x3 - Psychiatric Exam Psychiatric exam: Normal Affect - Skin Skin Exam: Normal Color Assessment and Plan (1) COPD exacerbation Assessment & Plan: Chest X-ray: Hyperinflation may be seen in setting of COPD. Blunting of hemidiap hragm bilaterally consistent with small pleural effusions and/or thickening. Mild basilar atelectasis. Robitussin 200mg po q4h prn SoluMedrol 40mg IV Q12H Singulair 10mg po HS Duonebs q4h kathy and PRN Status: Acute (2) Hypertension Assessment & Plan: Lisinopril 10mg po daily Status: Acute (3) Psychiatric disorder Assessment & Plan: History of depression and anxiety * Remeron 15mg PO HS * Zoloft 150mg PO daily Status: Acute (4) BPH (benign prostatic hyperplasia) Assessment & Plan: Continue Flomax 0.4mg PO daily Status: Acute (5) Tobacco abuse Assessment & Plan: Counselled on tobacco cessation nicotine patch 14mg/24h Status: Chronic (6) Chronic pain Assessment & Plan: Continue gabapentin 100mg PO TID Status: Acute (7) Prophylactic measure Assessment & Plan: Pepcid 20mg po daily Lovenox 40mg SC daily Tylenol 650mg po q6h prn Multivitamin 1 tab PO daily Folic Acid 1 tab PO daily Disposition: Plans for discharge on steroid taper All plans and management discussed with Dr. Gonzalez Status: Acute
[2018-09-09] MEDS: Enoxaparin 40 mg Syringe SC SCH (10:15)
[2018-09-09] MEDS: Multiple Vitamins Tab PO SCH (10:15)
[2018-09-09] MEDS: MethylPREDNISolone 40 mg Vial IVP SCH ×2 (10:19→21:17)
[2018-09-10] MEDS: Albuterol-Ipratrop 3 mg / 0.5 (3 ml) UD INH SCH ×3 (03:05→11:00)
[2018-09-10] MEDS: guaiFENesin 200 mg/10 ml Syrup UD PO PRN ×2 (05:48→10:13)
[2018-09-10 07:41] LABS: HEMOGLOBIN 9.2 g/dL (12.0-18.0); LYMPH # 1.1 K/uL (1.0-4.3); LYMPH % 6.8 % (20.0-40.0); MEAN CELL VOLUME 80.5 fL (80.0-94.0); MEAN CORPUSCULAR HEMOGLOBIN 25.5 pg (27.0-31.0); MEAN CORPUSCULAR HGB CONC 31.7 g/dL (33.0-37.0); MEAN PLATELET VOLUME 8.2 fL (7.2-11.7); MONO # 0.5 K/uL (0.0-0.8); MONO % 2.9 % (0.0-10.0); NEUT # 14.1 K/uL (1.8-7.0); NEUT % 90.3 % (50.0-75.0); PLATELET COUNT 266 K/uL (130-400); RED CELL DISTRIBUTION WIDTH 22.2 % (11.5-14.5); WHITE BLOOD COUNT 15.7 K/uL (4.8-10.8)
[2018-09-10 08:27] VITALS: BP 164/85; PULSE 107; TEMP 98.1; O2SAT 95
[2018-09-10 08:27] LABS: ALB/GLOB RATIO 1.3 (1.0-2.1); ALBUMIN 3.1 g/dL (3.5-5.0); ALT/SGPT 27 U/L (21-72); AST/SGOT 17 U/L (17-59); BLOOD UREA NITROGEN 31 mg/dL (9-20); CALCIUM 8.9 mg/dl (8.6-10.4); GFR NON-AFRICAN AMERICAN > 60
[2018-09-10 08:29] LABS: ANISOCYTOSIS MODERATE; BANDS 1 % (0-2); LYMPHOCYTE 7 % (20-40); MONOCYTE 3 % (0-10); NEUTROPHIL 89 % (50-75); PLATELET ESTIMATE NORMAL (NORMAL); TOTAL CELLS COUNTED 100
[2018-09-10 08:30] LABS: HYPOCHROMIC SLIGHT; OVALOCYTES SLIGHT; POLYCHROMIC SLIGHT
[2018-09-10] MEDS: Multiple Vitamins Tab PO SCH (10:13)
[2018-09-10] MEDS: MethylPREDNISolone 40 mg Vial IVP SCH (10:13)
[2018-09-10] MEDS: Enoxaparin 40 mg Syringe SC SCH (10:14)
--- NOTE | 2018-09-10 11:29 | CP.PCM.PN ---
Subjective - Date & Time of Evaluation Date of Evaluation: 09/10/18 Time of Evaluation: 09:10 - Subjective Subjective: Medicine progress note (PGY 2)- Dr. Gonzalez's service Patient was seen and examined at bedside. Patient was resting comfortably in bed in no acute distress. Patient admits to improved symptoms. Patient still admits to very mild wheezing and shortness of breath but denies chest pain, palpitations, dizziness, abdominal pain, nausea and vomiting. Objective - Vital Signs/Intake and Output Vital Signs (last 24 hours): Temp Pulse Resp BP Pulse Ox 98.1 F 107 H 20 164/85 H 95 09/10/18 07:00 09/10/18 07:00 09/10/18 07:00 09/10/18 07:00 09/10/18 07:00 Intake and Output: 09/10/18 09/10/18 06:59 18:59 Intake Total 500 Balance 500 - Medications Medications: Current Medications Acetaminophen (Tylenol 325mg Tab) 650 mg PO Q6 PRN PRN Reason: Pain, moderate (4-7) Last Admin: 09/08/18 11:16 Dose: 650 mg Albuterol/Ipratropium (Duoneb 3 Mg/0.5 Mg (3 Ml) Ud) 3 ml INH RQ4 PRN PRN Reason: Shortness of Breath Last Admin: 09/09/18 20:03 Dose: 3 ml Albuterol/Ipratropium (Duoneb 3 Mg/0.5 Mg (3 Ml) Ud) 3 ml INH RQ4 [facility] Last Admin: 09/10/18 11:00 Dose: 3 ml Enoxaparin Sodium (Lovenox) 40 mg SC DAILY [facility] Last Admin: 09/10/18 10:14 Dose: 40 mg Famotidine (Pepcid) 20 mg PO DAILY [facility] Last Admin: 09/10/18 10:13 Dose: 20 mg Folic Acid (Folic Acid) 1 mg PO DAILY [facility] Last Admin: 09/10/18 10:12 Dose: 1 mg Gabapentin (Neurontin) 100 mg PO TID [facility] Last Admin: 09/10/18 10:13 Dose: 100 mg Guaifenesin (Robitussin) 200 mg PO Q4H PRN PRN Reason: Cough and congestion Last Admin: 09/10/18 10:13 Dose: 200 mg Lisinopril (Zestril) 10 mg PO DAILY [facility] Last Admin: 09/10/18 10:13 Dose: 10 mg Methylprednisolone (Solu-Medrol) 40 mg IVP Q12 [facility] Last Admin: 09/10/18 10:13 Dose: 40 mg Mirtazapine (Remeron) 15 mg PO HS [facility] Last Admin: 09/09/18 21:14 Dose: 15 mg Montelukast Sodium (Singulair) 10 mg PO HS [facility] Last Admin: 09/09/18 21:16 Dose: 10 mg Multivitamins (Hexavitamin) 1 tab PO DAILY [facility] Last Admin: 09/10/18 10:13 Dose: 1 tab Nicotine (Nicoderm Cq) 1 patch TD DAILY [facility] Last Admin: 09/10/18 10:19 Dose: 1 patch Sertraline HCl (Zoloft) 150 mg PO DAILY [facility] Last Admin: 09/10/18 10:13 Dose: 150 mg Tamsulosin HCl (Flomax) 0.4 mg PO DAILY [facility] Last Admin: 09/10/18 10:15 Dose: 0.4 mg - Labs Labs: 09/10/18 07:25 09/10/18 07:25 PT 11.0 SECONDS (9.7-12.2) 09/05/18 20:47 INR 1.0 09/05/18 20:47 APTT 33 SECONDS (21-34) 09/05/18 20:47 - Constitutional Appears: Well, No Acute Distress - Head Exam Head Exam: ATRAUMATIC, NORMAL INSPECTION - Eye Exam Eye Exam: EOMI, Normal appearance - ENT Exam ENT Exam: Mucous Membranes Moist - Respiratory Exam Respiratory Exam: Wheezes, NORMAL BREATHING PATTERN Additional comments: Chronic diffuse expiratory wheezing - Cardiovascular Exam Cardiovascular Exam: REGULAR RHYTHM, +S1, +S2. absent: Murmur - GI/Abdominal Exam GI & Abdominal Exam: Soft, Normal Bowel Sounds. absent: Guarding, Rigid, Tenderness - Extremities Exam Extremities Exam: Normal Inspection. absent: Calf Tenderness, Joint Swelling, Pedal Edema - Neurological Exam Neurological Exam: Alert, Awake, Oriented x3 - Psychiatric Exam Psychiatric exam: Normal Affect - Skin Skin Exam: Normal Color Assessment and Plan (1) COPD exacerbation Assessment & Plan: Chest X-ray: Hyperinflation may be seen in setting of COPD. Blunting of hemidiaphragm bilaterally consistent with small pleural effusions and/or thickening. Mild basilar atelectasis. Robitussin 200mg po q4h prn SoluMedrol 40mg IV Q12H Singulair 10mg po HS Duonebs q4h kathy and PRN Status: Acute (2) Hypertension Assessment & Plan: Lisinopril 10mg po daily Status: Acute (3) Psychiatric disorder Assessment & Plan: History of depression and anxiety * Remeron 15mg PO HS * Zoloft 150mg PO daily Status: Acute (4) BPH (benign prostatic hyperplasia) Assessment & Plan: Continue Flomax 0.4mg PO daily Status: Acute (5) Tobacco abuse Assessment & Plan: Counselled on tobacco cessation nicotine patch 14mg/24h Status: Chronic (6) Chronic pain Assessment & Plan: Continue gabapentin 100mg PO TID Status: Acute (7) Prophylactic measure Assessment & Plan: Pepcid 20mg po daily Lovenox 40mg SC daily Tylenol 650mg po q6h prn Multivitamin 1 tab PO daily Folic Acid 1 tab PO daily Disposition: Please discharge patient home as per Dr. Goznalez Please follow up with Dr. Gonzalez for continuous pulmonary evaluation in 1-2 weeks Please take prednisone 40mg PO daily for 5 days in the morning time Please continue all your home medications as prescribed by your primary care physician 1-2 weeks We encourage smoking cessation due to worsening symptoms of COPD and reduce the risk of blood clot as your often on steroid taper Please take care All plans and management discussed with Dr. Gonzalez Status: Acute
== END 2018-09-10 13:44 | disposition home or self-care (01) | DRG 88 ==
LOC: C.ER 19:35 → C.3T 22:06
PROVIDERS: ADMIT Internal Medicine Pulmonary Disease; ATTEND Internal Medicine Pulmonary Disease
DX: J44.1 Chronic obstructive pulmonary disease with (acute) exacerbation (principal); J98.11 Atelectasis; J90 Pleural effusion, not elsewhere classified; F17.210 Nicotine dependence, cigarettes, uncomplicated; F32.9 Major depressive disorder, single episode, unspecified; N40.0 Benign prostatic hyperplasia without lower urinary tract symptoms; I10 Essential (primary) hypertension; F41.9 Anxiety disorder, unspecified; G89.29 Other chronic pain

== ENCOUNTER 2018-09-12 17:42 | Inpatient (IN) | payer MEDICAID ==
[2018-09-12 17:43] VITALS: BMI 18.8
[2018-09-12] MEDS ORDERED: MethylPREDNISolone 40 mg Vial IVP STA (18:48)
[2018-09-12 18:59] LABS: BASO # 0.1 K/uL (0.0-0.2); BASO % 0.9 % (0.0-2.0); EOS # 0.1 K/uL (0.0-0.7); EOS % 0.6 % (0.0-4.0); HEMOGLOBIN 11.1 g/dL (12.0-18.0); LYMPH # 2.2 K/uL (1.0-4.3); LYMPH % 15.1 % (20.0-40.0); MEAN CELL VOLUME 80.8 fL (80.0-94.0); MEAN CORPUSCULAR HEMOGLOBIN 25.6 pg (27.0-31.0); MEAN CORPUSCULAR HGB CONC 31.7 g/dL (33.0-37.0); MONO # 0.7 K/uL (0.0-0.8); MONO % 5.1 % (0.0-10.0); NEUT # 11.2 K/uL (1.8-7.0); NEUT % 78.3 % (50.0-75.0); RBC 4.35 Mil/uL (4.40-5.90); RED CELL DISTRIBUTION WIDTH 23.4 % (11.5-14.5); WHITE BLOOD COUNT 14.4 K/uL (4.8-10.8)
[2018-09-12] MEDS ORDERED: Albuterol-Ipratrop 3 mg / 0.5 (3 ml) UD ONE ×2 (19:00→19:31)
[2018-09-12] MEDS ORDERED: Albuterol-Ipratrop 3 mg / 0.5 (3 ml) UD IH SCH (19:00)
[2018-09-12 19:14] LABS: ALB/GLOB RATIO 1.3 (1.0-2.1); ALT/SGPT 31 U/L (21-72); AST/SGOT 59 U/L (17-59); BLOOD UREA NITROGEN 23 mg/dL (9-20); CALCIUM 8.8 mg/dl (8.6-10.4); GFR NON-AFRICAN AMERICAN > 60
--- NOTE | 2018-09-12 19:35 | C.PDOC ---
History Of Present Illness 58 y/o male with a PMHx of COPD presents to the ED complaining of SOB onset around 9:00am today. Patient reports using his albuterol inhaler without relief. Patient also complains of a cough productive of white phlegm. Denies any fever, chills, chest pain, numbness, tingling, or leg pain/swelling. Denies recent travel. Time Seen by Provider: 09/12/18 18:42 Chief Complaint (Nursing): Shortness Of Breath History Per: Patient History/Exam Limitations: no limitations Onset/Duration Of Symptoms: Hrs Current Symptoms Are (Timing): Still Present Exacerbating Factor(s): Coughing Current Respiratory Medications: Albuterol Past Medical History Reviewed: Historical Data, Nursing Documentation, Vital Signs Vital Signs: Last Vital Signs Temp 98.1 F 09/12/18 17:57 Pulse 105 H 09/12/18 17:57 Resp 22 09/12/18 18:45 BP 134/88 09/12/18 17:57 Pulse Ox 96 09/12/18 18:45 - Medical History PMH: Anxiety, Asthma, Bronchitis, COPD, Depression, Gastrointestinal Ulcer, HTN, Pneumonia Denies: Chronic Kidney Disease Surgical History: Appendectomy, Tonsillectomy - [facility] CONTR ABD ARTERIOGRM NEC (05/20/07) DETOXIFICATION SERVICES FOR SUBSTANCE ABUSE TREATMENT (07/14/18) ESOPHAGOGASTRODUODENOSCOPY [EGD] W/CLOSED BIOPSY (05/20/07) EXCISION OF LOWER ESOPHAGUS, ENDO, DIAGN (05/21/17) EXTIRPATION OF MATTER FROM LOWER ESOPHAGUS, ENDO (05/21/17) GROUP RECORDING STUDIO INTERNSHIP FOR SUBSTANCE ABUSE TREATMENT, PSYCHOEDUCATION (05/05/18) GROUP RECORDING STUDIO INTERNSHIP FOR SUBSTANCE ABUSE, COGNITIVE BEHAVIORAL (05/05/18) GROUP PSYCHOTHERAPY (07/14/18) INDIV RECORDING STUDIO INTERNSHIP FOR SUBSTANCE ABUSE TREATMENT, PSYCHOEDUCATION (01/14/17) INDIV RECORDING STUDIO INTERNSHIP FOR SUBSTANCE ABUSE, COGNITIVE BEHAVIORAL (01/14/17) INDIV PSYCHOTHERAPY FOR SUBSTANCE ABUSE TREATMENT, SUPPORT (07/14/18) INDIV PSYCHOTHERAPY FOR SUBSTANCE ABUSE, COGNITIV BEHAVIORAL (05/05/18) INDIV PSYCHOTHERAPY FOR SUBSTANCE ABUSE, PSYCHOEDUCATION (07/14/18) INDIVIDUAL PSYCHOTHERAPY, COGNITIVE-BEHAVIORAL (05/05/18) INDIVIDUAL PSYCHOTHERAPY, SUPPORTIVE (05/05/18) INJECT/INFUSE NEC (03/20/12) MEDICATION MANAGEMENT (03/12/17) MEDS MGMT FOR SUBSTANCE ABUSE TREATMENT, OTH REPL MED (03/12/17) Family History: States: No Known Family Hx - Social History Hx Tobacco Use: Yes Hx Alcohol Use: Yes Hx Substance Use: Yes (marijuana) - Immunization History Hx Tetanus Toxoid Vaccination: Yes Hx Influenza Vaccination: Yes Hx Pneumococcal Vaccination: Yes Review Of Systems Constitutional: Negative for: Fever, Chills, Sweats Eyes: Negative for: Vision Change Cardiovascular: Negative for: Chest Pain, Light Headedness Respiratory: Positive for: Cough, Shortness of Breath, Sputum (white). Negative for: Hemoptysis Gastrointestinal: Negative for: Nausea, Vomiting Neurological: Negative for: Weakness, Numbness, Headache, Dizziness Physical Exam - Physical Exam Additional Physical Exam Comments: Constitutional: No acute distress. Head: Normocephalic. Atraumatic. Eyes: PERRL. ENT: Moist mucous membranes. Neck: Supple. Cardiovascular: Regular rate. Radial pulse 2+ bilaterally. Chest: No tenderness. Respiratory: Diffuse expiratory wheezing. GI: Soft. Nontender. Nondistended. Back: No CVA tenderness. Musculoskeletal: No tenderness or swelling of extremities. Skin: No rash. Neurologic: Alert, no focal deficit. ED Course And Treatment - Laboratory Results Result Diagrams: 09/12/18 18:54 09/12/18 18:54 O2 Sat by Pulse Oximetry: 96 (RA) Pulse Ox Interpretation: Normal Medical Decision Making Medical Decision Making: Impression: 58 y/o M with SOB, hx of COPD Plan: --CMP --CBC --Chest x-ray --Solu-Medrol 125 mg IVP --Duoneb nebulizer x1 --Peak Flow pre/post neb While patient in ED, stated that he thinks he might kill himself by jumping in front of a truck. Crisis called, accepted to Psych by Dr. Muse. 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 I have reviewed the chart and agree that the record accurately reflects my personal performance of the history, physical exam, medical decision making, and the department course for this patient. I have also personally directed, reviewed, and agree with the discharge instructions and disposition.
[2018-09-12 22:02] LABS: SPERM URINE RARE /hpf; URINE BACTERIA RARE (<OCC); URINE BILIRUBIN NEGATIVE (NEGATIVE); URINE BLOOD NEGATIVE (NEGATIVE); URINE CLARITY Clear (Clear); URINE COLOR Yellow (YELLOW); URINE GLUCOSE (UA) NORMAL (Normal); URINE LEUKOCYTE ESTERASE NEG Leu/uL (Negative); URINE PROTEIN NEGATIVE (NEGATIVE)
[2018-09-12 22:12] LABS: BARBITURATES, UR NEGATIVE (NEGATIVE); BENZODIAZEPINES, UR NEGATIVE (NEGATIVE); OPIATES, UR NEGATIVE (NEGATIVE); PHENCYCLIDINE, UR NEGATIVE (NEGATIVE)
--- NOTE | 2018-09-13 00:06 | PCM.BM ---
<Sarahi Dan - Last Filed: 09/13/18 00:04> Treatment Plan Problems - Problems identified on initial assessmt Problem 1 Date Initiated: 09/13/18 Time Initiated: 00:05 Assessment reference: NA Status: Active Comment: suicidal ideations Problem 2 Date Initiated: 09/13/18 Time Initiated: 00:05 Assessment reference: NA Status: Active Comment: depressed mood Treatment assets and liabiliti Patient Assests: cooperative, insightful, self-reliant, ADL independent, negotiates basic needs, cognitively intact Patient Liabilities: poor support system, substance abuse - Milieu Protocol Maintain good personal hygiene: daily Encourage regular showers, daily Remind patient to perform daily oral care, daily Assist patient to perform ADL's Conduct patient checks and document Observation sheet: Q15 minutes Maintain personal safety: every shift Educate patient to report safety concerns to staff, every shift Monitor environment for contraband/sharps Medication safety: Monitor for expected outcome, potential side effects: every shift, Assess barriers to learning: every shift, Assess readiness for medication education: every shift <Unique Heredia - Last Filed: 09/15/18 12:08> - Diagnosis (1) Depression Status: Acute Interventions: 09/15/18 12:09 * Assess/adjust medications daily and /or as needed * See patient on an individual basis 7x/week to assess symptoms of depression * Monitor for side effects & effectiveness of medications * (2) Alcohol dependence Status: Acute Interventions: 09/15/18 12:09 * Assess 7x/week regarding severity of withdrawal * Educate regarding risks, benefits, side effects and alternatives of medications * Use Motivational Interviewing for abstinence * Use CBT for relapse prevention * Medication management for withdrawal symptoms * Encourage medication assisted treatment * <Tiki Diallo - Last Filed: 09/15/18 13:41> Family Contact Family involvement: Famliy/SO not involved - Goals for Treatment Patient goals for treatment: "I want to go back to [facility]." Discharge/Continuing Care - Education Needs Education Needs: Patient Medication, Patient Coping Skills, Patient Placement options, Patient Community resources - Discharge Discharge Criteria: Tolerates medication w/o severe side effects, No longer exhibiting s/s of withdrawal Discharge to:: Substance Abuse Rehab - Treatment Team Participation Discussed with Family/SO: No Was Patient/Family/SO present at Treatment Team Meeting: Yes
--- NOTE | 2018-09-13 07:16 | RAD ---
Date of service: 09/12/2018 HISTORY: cough COMPARISON: 09/05/2018 TECHNIQUE: Chest PA and lateral FINDINGS: LUNGS: Hyperinflation suggestive for COPD and or emphysematous changes. Mild nodularity at the lung bases, nonspecific. PLEURA: Persistent blunting of the bilateral costophrenic angles which may represent pleural thickening and or trace effusions. CARDIOVASCULAR: No atherosclerotic calcification present Normal. OSSEOUS STRUCTURES: Degenerative changes in the spine. Suggestion of chronic right lower rib deformities. VISUALIZED UPPER ABDOMEN: Normal. OTHER FINDINGS: None. IMPRESSION: Hyperinflation suggestive for COPD and or emphysematous changes. Mild nodularity at the lung bases, nonspecific. Persistent blunting of the bilateral costophrenic angles which may represent pleural thickening and or trace effusions. Degenerative changes in the spine. Suggestion of chronic right lower rib deformities.
[2018-09-13] MEDS: Albuterol HFA 90 mcg/actuation (8 g) INH PRN (09:54)
--- NOTE | 2018-09-13 17:49 | PCM.PSYCH ---
Initial Psychiatric Evaluation - Initial Psychiatric Evaluation Type of Admission: Voluntary Legal Status: Capacity Chief Complaint (in patient's own words): I need help, depression. History of Present Illness and Precipitating Events: Patient is a 58 years old, single, unemployed, on disability, male with history of depression and alcohol use was admitted due to worsening of depression and withdrawing from alcohol. Patient reported feeling depressed with decreased sleep and appetite. Started having suicidal ideations with plan to jump in front of running bus or truck. History of 5-6 previous suicidal attempts. History of multiple admissions in the hospital for psychiatric reason. Denied any homicidal ideations. Reported seeing shadows while drinking alcohol. Denied any manic, or anxiety symptoms. Patient was noncompliant with treatment. Was getting Zoloft and mirtazapine. Alcohol: Started drinking alcohol at 11 years of age, increased gradually. Was drinking 1 pint of vodka daily and few 24 ounces cans of beer. Last used 2 days ago. Cocaine: Last use reported 4 days ago. Smokes half to one pack of cigarettes daily and is requesting for nicotine patch. Patient was born in [place], has 11th grade of education. 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 He is single, has no child, on disability. Reported he was living with [facility] but now he is homeless for last 1 month. Current Medications: Active Medications Generic Name Dose Route Start Last Admin Trade Name Freq PRN Reason Stop Dose Admin Albuterol 1 puff 09/13/18 00:56 09/13/18 09:54 Ventolin Hfa 90 Mcg/Actuation (8 G) INH 1 puff RQ4 PRN Administration Shortness of Breath Albuterol/Ipratropium 3 ml 09/12/18 19:00 Duoneb 3 Mg/0.5 Mg (3 Ml) Ud IH 09/14/18 19:01 Q15MIN FERNANDA Fluticasone/Vilanterol 1 puff 09/14/18 08:00 Breo Ellipta 200-25 Mcg Inh INH RQD FERNANDA Mirtazapine 15 mg 09/13/18 22:00 Remeron PO HS FERNANDA Montelukast Sodium 10 mg 09/13/18 22:00 Singulair PO HS FERNANDA Nicotine 1 patch 09/13/18 18:00 Nicoderm Cq TD DAILY FERNANDA Sertraline HCl 50 mg 09/13/18 18:00 Zoloft PO DAILY FERNANDA Trazodone HCl 50 mg 09/13/18 00:51 09/13/18 01:19 Desyrel PO 50 mg HS PRN Administration insomnia Past Psychiatric History - Past Psychiatric History Previous Treatment History: Inpatient History of Abuse: None reported History of ETOH/Drug Use: See HPI History of Family Illness: None reported Pertinent Medical Hx (Current Medical&Sleep Prob, Allergies): Allergies Allergy/AdvReac Type Severity Reaction Status Date / Time No Known Allergies Allergy Verified 08/25/18 11:08 Sertraline [Zoloft] 150 mg PO DAILY #30 tab 06/26/18 Mirtazapine [Remeron] 15 mg PO HS #30 tab 07/17/18 Pantoprazole [Protonix EC Tab] 40 mg PO DAILY #14 ect 08/06/18 Umeclidinium [place]ble [Incruse Ellipta] 62.5 mcg IH DAILY #1 inh 08/06/18 Folic Acid 1 mg PO DAILY #30 tab 08/07/18 Montelukast [Singulair] 10 mg PO HS #30 tab 08/07/18 Tamsulosin [Flomax] 0.4 mg PO DAILY #30 cap 08/07/18 Gabapentin [Neurontin] 100 mg PO TID #30 capsule 08/28/18 Lisinopril [Zestril] 10 mg PO DAILY #30 tab 08/28/18 Albuterol Sulfate [Ventolin Hfa] 1 puff IH Q4 PRN 30 Days #1 inhaler 09/10/18 predniSONE [Prednisone] 40 mg PO DAILY 5 Days #5 tab 09/10/18 Asthma COPD Hypertension BPH Review of Systems - Psychiatric Psychiatric: As Per HPI, Anhedonia, Depression, Difficulty Concentrating Mental Status Examination - Personal Presentation Personal Presentation: Looks stated age - Affect Affect: Depressed - Motor Activity Motor Activity: Calm - Reliability in Providing Information Reliability in Providing Information: Fair - Speech Speech: Organized - Mood Mood: Depressed - Formal Thought Process Formal Thought Process: No Impairment Additional comments: None - Hallucinations/Delusions Hallucinations: Other (None reported) Delusions: Other - Obsessions/Compulsions Obsessions: None Compulsions: None - Cognitive Functions Orientation: Person, Place, Situation, Time Sensorium: Alert Attention/Concentration: Attentive Abstract Thinking: [place] Estimate of Intelligence: Average Judgement: Intact, as evidence by: Insight regarding need for hospitalization Memory: Recent intact, as evidence by: Ability to recall events of the day, Remote intact, as evidenced by: Ability to recall historical events - Risk Risk: Withdrawal, Diminished functioning - Strength & Assets Inventory Strength & Assets Inventory: Cooperative - Limitations Limitations: Other (Homeless) DSM 5 DX - DSM 5 DSM 5 Diagnosis: Major depressive 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 Alcohol use disorder severe Cocaine use disorder severe - Recommended/Plan of Treatment Treatment Recommendations and Plan of Treatment: Patient/staff education. Supportive therapy. CBT for relapse prevention. AR for abstinence. We will start Librium taper for alcohol withdrawal symptoms. We'll start Zoloft and mirtazapine for depression. We'll start multivitamins, folic acid and thiamine. Other when necessary medications. Nicotine patch. Projected ELOS: 8-10 days - Smoking Cessation Smoking Cessation Initiated: Yes
[2018-09-14] MEDS: Fluticasone-Vilanterol 200/25mcg Diskus INH SCH (09:00)
[2018-09-14] MEDS: Multiple Vitamins Tab PO SCH (09:21)
[2018-09-14] MEDS: Albuterol HFA 90 mcg/actuation (8 g) INH PRN ×2 (12:13→17:18)
--- NOTE | 2018-09-14 18:31 | PCM.PYCHPN ---
Psychiatric Progress Note - Psychiatric Progress Note Patient seen today, length of contact: 15 minutes Patient Chief Complaint: I'm feeling little better. I also have some sleeping problems. Problems Identified/Issues Discussed: Patient seen, chart reviewed, case discussed with the staff. Issues related to illness and treatment were discussed with the patient and staff. Tolerating treatment very well. Reported compliant with treatment with no adverse affects. Patient reported feeling better with treatment. Also reported decreased sleep. We will increase the dose of trazodone to 100 mg at bedtime. Patient agreed. Needs more time for stabilization. Patient was calm and cooperative. Awake, alert and oriented 3. Aftercare discussed with the patient. At the time of evaluation, patient had no delusions, no auditory or visual hallucinations, no suicidal ideations or homicidal ideations. Medical Problems: Asthma COPD Hypertension BPH Diagnostic Results: Reviewed DSM 5 Symptoms Update: Some improvement with treatment Medication Change: Yes (Dose of trazodone increased to 100 mg) Medical Record Reviewed: Yes Mental Status Examination - Cognitive Function Orientation: Person, Place, Situation, Time Memory: Intact Attention: WNL Concentration: WNL Association: WNL Fund of Knowledge: [facility] Decription of patient's judgement and insights: Fair - Mood Mood: Depressed - Affect Affect: Depressed - Speech Speech: Appropriate - Formal Thought Process Formal Thought Process: No Impairment Psychotic Thoughts and Behaviors: None - Suicidal Ideation Suicidal Ideation: No - Homicidal Ideation Homicidal Ideation: No Goal/Treatment Plan - Goal/Treatment Plan Need for Continued Stay: Remain at risks for inpatient hospitalization, Discharge may exacerbated symptoms, Severe functional impairment Progress Toward Problem(s) and Goals/Treatment Plan: Patient/staff education. Supportive therapy. CBT for relapse prevention. [place] for abstinence. We will increase the dose of trazodone to 100 mg. Patient understood and agreed. Continue rest of the treatment as before. Estimated Date of D/C: 09/19/18 - Smoking Cessation Smoking Cessation Initiated: Yes
[2018-09-14] MEDS: Aluminum Hydroxide/Magnesium Hydroxide Susp (30 mL) PO PRN (21:08)
[2018-09-15 08:28] LABS: BASO % 0.3 % (0.0-2.0); EOS # 0.4 K/uL (0.0-0.7); EOS % 3.8 % (0.0-4.0); HEMOGLOBIN 9.3 g/dL (12.0-18.0); LYMPH % 10.5 % (20.0-40.0); MEAN CORPUSCULAR HEMOGLOBIN 26.3 pg (27.0-31.0); MEAN CORPUSCULAR HGB CONC 32.5 g/dL (33.0-37.0); MEAN PLATELET VOLUME 7.8 fL (7.2-11.7); MONO # 0.4 K/uL (0.0-0.8); NEUT # 7.5 K/uL (1.8-7.0); NEUT % 81.4 % (50.0-75.0); RBC 3.54 Mil/uL (4.40-5.90); RED CELL DISTRIBUTION WIDTH 23.4 % (11.5-14.5); WHITE BLOOD COUNT 9.2 K/uL (4.8-10.8)
[2018-09-15 08:33] LABS: ALB/GLOB RATIO 1.3 (1.0-2.1); ALBUMIN 2.9 g/dL (3.5-5.0); ALT/SGPT 29 U/L (21-72); AST/SGOT 16 U/L (17-59); BLOOD UREA NITROGEN 31 mg/dL (9-20); GFR NON-AFRICAN AMERICAN > 60
[2018-09-15] MEDS: Fluticasone-Vilanterol 200/25mcg Diskus INH SCH (09:00)
[2018-09-15] MEDS: Multiple Vitamins Tab PO SCH (09:08)
--- NOTE | 2018-09-15 09:46 | PCM.PYCHPN ---
Psychiatric Progress Note - Psychiatric Progress Note Patient seen today, length of contact: 15 minutes Patient Chief Complaint: I relapsed on drinking.' Problems Identified/Issues Discussed: Patient seen and evaluated, chart reviewed and discussed with the nurse. Pt reports depressed mood, and reports feelings of hopelessness and helplessness. He reports irritability and agitation. He remained isolated and withdrawn, and confined to his room. Patient reports of withdrawal symptoms including abdominal cramps, anxiety, headaches and sweating. He denies any auditory hallucinations, visual hallucinations, or any paranoia. Patient is compliant with medications and denies any side effects. Symptoms are improving but pt needs more time to stabilize. Support and psychoeducation given. Medication Change: Yes (Dose of trazodone increased to 100 mg) Medical Record Reviewed: Yes Mental Status Examination - Cognitive Function Orientation: Person, Place, Situation, Time Memory: Intact Attention: WNL Concentration: Poor Association: WNL Fund of Knowledge: Poor - Mood Mood: Depressed, Anxious - Affect Affect: Constricted, Depressed - Speech Speech: Appropriate - Formal Thought Process Formal Thought Process: No Impairment - Suicidal Ideation Suicidal Ideation: No - Homicidal Ideation Homicidal Ideation: No Goal/Treatment Plan - Goal/Treatment Plan Need for Continued Stay: Remain at risks for inpatient hospitalization, Discharge may exacerbated symptoms, Severe functional impairment Progress Toward Problem(s) and Goals/Treatment Plan: Major depressive 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 Alcohol use disorder severe Cocaine use disorder severe Patient/staff education. Supportive therapy. CBT for relapse prevention. [place] for abstinence. We will start Librium taper for alcohol withdrawal symptoms. We'll start Zoloft and mirtazapine for depression. We'll start multivitamins, folic acid and thiamine. Other when necessary medications. Nicotine patch. Estimated Date of D/C: 09/19/18
[2018-09-15] MEDS: Albuterol HFA 90 mcg/actuation (8 g) INH PRN (13:19)
[2018-09-16] MEDS: Fluticasone-Vilanterol 200/25mcg Diskus INH SCH (08:42)
[2018-09-16] MEDS: Multiple Vitamins Tab PO SCH (10:06)
--- NOTE | 2018-09-16 14:01 | PCM.PYCHPN ---
Psychiatric Progress Note - Psychiatric Progress Note Patient seen today, length of contact: 15 minutes Patient Chief Complaint: I relapsed on drinking.' Problems Identified/Issues Discussed: Patient seen and evaluated, chart reviewed and discussed with the nurse. Pt reports depressed mood, and reports feelings of hopelessness and helplessness. He reports irritability and agitation. He remained isolated and withdrawn, and confined to his room. Patient reports of withdrawal symptoms including abdominal cramps, anxiety, headaches and sweating. He denies any auditory hallucinations, visual hallucinations, or any paranoia. Patient is compliant with medications and denies any side effects. Symptoms are improving but pt needs more time to stabilize. Support and psychoeducation given. Medication Change: Yes (Dose of trazodone increased to 100 mg) Medical Record Reviewed: Yes Mental Status Examination - Cognitive Function Orientation: Person, Place, Situation, Time Memory: Intact Attention: WNL Concentration: Poor Association: WNL Fund of Knowledge: Poor - Mood Mood: Depressed, Anxious - Affect Affect: Constricted, Depressed - Speech Speech: Appropriate - Formal Thought Process Formal Thought Process: No Impairment - Suicidal Ideation Suicidal Ideation: No - Homicidal Ideation Homicidal Ideation: No Goal/Treatment Plan - Goal/Treatment Plan Need for Continued Stay: Remain at risks for inpatient hospitalization, Discharge may exacerbated symptoms, Severe functional impairment Progress Toward Problem(s) and Goals/Treatment Plan: Major depressive 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 Alcohol use disorder severe Cocaine use disorder severe Patient/staff education. Supportive therapy. CBT for relapse prevention. [place] for abstinence. We will start Librium taper for alcohol withdrawal symptoms. We'll start Zoloft and mirtazapine for depression. We'll start multivitamins, folic acid and thiamine. Other when necessary medications. Nicotine patch. Estimated Date of D/C: 09/19/18 - Smoking Cessation Smoking Cessation Initiated: No
[2018-09-17] MEDS: Fluticasone-Vilanterol 200/25mcg Diskus INH SCH (09:47)
[2018-09-17] MEDS: Multiple Vitamins Tab PO SCH (09:49)
[2018-09-17] MEDS: Albuterol HFA 90 mcg/actuation (8 g) INH PRN ×2 (15:21→21:45)
[2018-09-18] MEDS: Fluticasone-Vilanterol 200/25mcg Diskus INH SCH (08:53)
[2018-09-18] MEDS: Multiple Vitamins Tab PO SCH (09:04)
[2018-09-18] MEDS: Albuterol HFA 90 mcg/actuation (8 g) INH PRN (22:42)
--- NOTE | 2018-09-19 06:21 | PCM.PYCHPN ---
Psychiatric Progress Note - Psychiatric Progress Note Patient seen today, length of contact: 15 minutes Patient Chief Complaint: I am feeling little better Problems Identified/Issues Discussed: Patient seen and evaluated, chart reviewed and discussed with the nurse. He remained isolated and withdrawn, and confined to his room. Patient still reports of withdrawal symptoms including anxiety, headaches and sweating. He reports some improvement in his depressed mood, and some improvement in the feelings of hopelessness and helplessness. He denies any auditory hallucinations, visual hallucinations, or any paranoia. Patient is compliant with medications and denies any side effects. Symptoms are improving but pt needs more time to stabilize. Support and psychoeducation given. Medication Change: Yes (Dose of trazodone increased to 100 mg) Medical Record Reviewed: Yes Mental Status Examination - Cognitive Function Orientation: Person, Place, Situation, Time Memory: Intact Attention: WNL Concentration: Poor Association: WNL Fund of Knowledge: Poor - Mood Mood: Depressed, Anxious - Affect Affect: Constricted, Depressed - Speech Speech: Appropriate - Formal Thought Process Formal Thought Process: No Impairment - Suicidal Ideation Suicidal Ideation: No - Homicidal Ideation Homicidal Ideation: No Goal/Treatment Plan - Goal/Treatment Plan Need for Continued Stay: Remain at risks for inpatient hospitalization, Discharge may exacerbated symptoms, Severe functional impairment Progress Toward Problem(s) and Goals/Treatment Plan: Major depressive 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 Alcohol use disorder severe Cocaine use disorder severe Patient/staff education. Supportive therapy. CBT for relapse prevention. [place] for abstinence. We will start Librium taper for alcohol withdrawal symptoms. Zoloft for depression. Mirtazapine for depression. Multivitamins, folic acid and thiamine. Other when necessary medications. Nicotine patch. Estimated Date of D/C: 09/22/18 - Smoking Cessation Smoking Cessation Initiated: No
--- NOTE | 2018-09-19 06:21 | PCM.PYCHPN ---
Psychiatric Progress Note - Psychiatric Progress Note Patient seen today, length of contact: 15 minutes Patient Chief Complaint: I am feeling little better.' Problems Identified/Issues Discussed: Patient seen and evaluated, chart reviewed and discussed with the nurse. Pt reports depressed mood, but reports some improvement in the feelings of hopelessness and helplessness. He remained isolated and withdrawn, and confined to his room. Patient still reports of withdrawal symptoms including abdominal cramps, anxiety, headaches and sweating. He denies any auditory hallucinations, visual hallucinations, or any paranoia. Patient is compliant with medications and denies any side effects. Symptoms are improving but pt needs more time to stabilize. Support and psychoeducation given. Medication Change: Yes (Dose of trazodone increased to 100 mg) Medical Record Reviewed: Yes Mental Status Examination - Cognitive Function Orientation: Person, Place, Situation, Time Memory: Intact Attention: WNL Concentration: Poor Association: WNL Fund of Knowledge: Poor - Mood Mood: Depressed, Anxious - Affect Affect: Constricted, Depressed - Speech Speech: Appropriate - Formal Thought Process Formal Thought Process: No Impairment - Suicidal Ideation Suicidal Ideation: No - Homicidal Ideation Homicidal Ideation: No Goal/Treatment Plan - Goal/Treatment Plan Need for Continued Stay: Remain at risks for inpatient hospitalization, Discharge may exacerbated symptoms, Severe functional impairment Progress Toward Problem(s) and Goals/Treatment Plan: Major depressive 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 Alcohol use disorder severe Cocaine use disorder severe Patient/staff education. Supportive therapy. CBT for relapse prevention. Increase Remeron Increase Zoloft Neurontin MD for abstinence. We will start Librium taper for alcohol withdrawal symptoms. We'll start Zoloft and mirtazapine for depression. We'll start multivitamins, folic acid and thiamine. Other when necessary medications. Nicotine patch. Estimated Date of D/C: 09/19/18
[2018-09-19] MEDS: Fluticasone-Vilanterol 200/25mcg Diskus INH SCH (08:59)
[2018-09-19] MEDS: Multiple Vitamins Tab PO SCH (09:59)
--- NOTE | 2018-09-19 10:56 | PCM.PYCHPN ---
Psychiatric Progress Note - Psychiatric Progress Note Patient seen today, length of contact: 15 minutes Patient Chief Complaint: I am feeling little better.' Problems Identified/Issues Discussed: Patient seen and evaluated, chart reviewed and discussed with the nurse. He remained isolated and withdrawn, and confined to his room. He reports some improvement in his depressed mood, and some improvement in the feelings of hopelessness and helplessness. he reports some improvement in the sleep and appetite. Patient still reports of withdrawal symptoms including anxiety, headaches and sweating. He denies any auditory hallucinations, visual hallucinations, or any paranoia. Patient is compliant with medications and denies any side effects. Symptoms are improving but pt needs more time to stabilize. Support and psychoeducation given. Medication Change: Yes Medical Record Reviewed: Yes Mental Status Examination - Cognitive Function Orientation: Person, Place, Situation, Time Memory: Intact Attention: WNL Concentration: Poor Association: WNL Fund of Knowledge: Poor - Mood Mood: Depressed, Anxious - Affect Affect: Constricted, Depressed - Speech Speech: Appropriate - Formal Thought Process Formal Thought Process: No Impairment - Suicidal Ideation Suicidal Ideation: No - Homicidal Ideation Homicidal Ideation: No Goal/Treatment Plan - Goal/Treatment Plan Need for Continued Stay: Remain at risks for inpatient hospitalization, Discharge may exacerbated symptoms, Severe functional impairment Progress Toward Problem(s) and Goals/Treatment Plan: Major depressive 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 Alcohol use disorder severe Cocaine use disorder severe Patient/staff education. Supportive therapy. CBT for relapse prevention. MT for abstinence. Librium taper completed Zoloft for depression. Mirtazapine for depression. Multivitamins, folic acid and thiamine. Other when necessary medications. Nicotine patch. Estimated Date of D/C: 09/22/18 - Smoking Cessation Smoking Cessation Initiated: No
[2018-09-19] MEDS: Albuterol HFA 90 mcg/actuation (8 g) INH PRN (13:42)
[2018-09-19] MEDS: guaiFENesin DM 200 mg-20 mg/10 ml UD PO PRN (21:30)
[2018-09-20] MEDS: Fluticasone-Vilanterol 200/25mcg Diskus INH SCH (08:53)
[2018-09-20] MEDS: Multiple Vitamins Tab PO SCH (09:54)
[2018-09-20] MEDS: guaiFENesin DM 200 mg-20 mg/10 ml UD PO PRN (11:20)
[2018-09-20] MEDS: Albuterol HFA 90 mcg/actuation (8 g) INH PRN (18:04)
--- NOTE | 2018-09-20 22:58 | PCM.PYCHPN ---
Psychiatric Progress Note - Psychiatric Progress Note Patient seen today, length of contact: 15 minutes Patient Chief Complaint: "Tired" Problems Identified/Issues Discussed: The pt is seen, chart reviewed, case discussed with staff. The pt is compliant with medications and reports no side-effects. Symptoms are improving but needs more time to stabilize. After care discussed, support and psychoeducation given. Medication Change: Yes Medical Record Reviewed: Yes Mental Status Examination - Cognitive Function Orientation: Person, Place, Situation, Time Memory: Intact Attention: WNL Concentration: Poor Association: WNL Fund of Knowledge: Poor - Mood Mood: Depressed, Anxious - Affect Affect: Constricted, Depressed - Speech Speech: Appropriate - Formal Thought Process Formal Thought Process: No Impairment - Suicidal Ideation Suicidal Ideation: No - Homicidal Ideation Homicidal Ideation: No Goal/Treatment Plan - Goal/Treatment Plan Need for Continued Stay: Discharge may exacerbated symptoms, Severe functional impairment Progress Toward Problem(s) and Goals/Treatment Plan: Continue medications Support and psychoeducation daily Attend groups and activities daily After care planning by GABE Estimated Date of D/C: 09/22/18
[2018-09-21] MEDS: Albuterol HFA 90 mcg/actuation (8 g) INH PRN (06:51)
[2018-09-21] MEDS: guaiFENesin DM 200 mg-20 mg/10 ml UD PO PRN ×3 (06:51→21:55)
[2018-09-21] MEDS: Tiotropium 18 mcg Cap For Inhalation INH SCH (08:15)
--- NOTE | 2018-09-21 08:49 | RAD ---
Date of service: 09/21/2018 HISTORY: Fever, Congestion, Pain when coughing COMPARISON: Chest radiographs 09/12/2018. TECHNIQUE: Chest PA and lateral FINDINGS: LUNGS: No interval infiltrate bilaterally. COPD again reiterated with hyperinflation flattened hemidiaphragms as well as increased anteroposterior chest diameter again identified. PLEURA: No significant pleural effusion identified. No pneumothorax apparent. CARDIOVASCULAR: No aortic atherosclerotic calcification present. Normal cardiac size. No pulmonary vascular congestion. OSSEOUS STRUCTURES: No significant abnormalities. VISUALIZED UPPER ABDOMEN: Normal. OTHER FINDINGS: None. IMPRESSION: Stable COPD pattern. No acute interval cardiopulmonary changes.
[2018-09-21 09:12] LABS: BASO # 0.1 K/uL (0.0-0.2); BASO % 0.5 % (0.0-2.0); NRBC % 0.1 % (0.0-2.0)
[2018-09-21 09:25] LABS: EOS # 0.5 K/uL (0.0-0.7); HEMOGLOBIN 9.6 g/dL (12.0-18.0); LYMPH % 5.9 % (20.0-40.0); MEAN CELL VOLUME 80.1 fL (80.0-94.0); MEAN CORPUSCULAR HEMOGLOBIN 25.3 pg (27.0-31.0); MEAN CORPUSCULAR HGB CONC 31.6 g/dL (33.0-37.0); MEAN PLATELET VOLUME 8.7 fL (7.2-11.7); MONO # 0.6 K/uL (0.0-0.8); MONO % 3.4 % (0.0-10.0); NEUT # 14.4 K/uL (1.8-7.0); NEUT % 87.2 % (50.0-75.0); RBC 3.78 Mil/uL (4.40-5.90); RED CELL DISTRIBUTION WIDTH 23.5 % (11.5-14.5)
[2018-09-21 09:26] LABS: PLATELET COUNT 360 K/uL (130-400); WHITE BLOOD COUNT 16.5 K/uL (4.8-10.8)
[2018-09-21 09:38] LABS: ALB/GLOB RATIO 1.1 (1.0-2.1); ALBUMIN 3.6 g/dL (3.5-5.0); ALT/SGPT 17 U/L (21-72); AST/SGOT 20 U/L (17-59); BLOOD UREA NITROGEN 17 mg/dL (9-20); CALCIUM 9.2 mg/dl (8.6-10.4); GFR NON-AFRICAN AMERICAN > 60
--- NOTE | 2018-09-21 09:45 | CP.PCM.CON ---
<CurtisdavidTona coronaJerrell - Last Filed: 09/21/18 20:49> History of Present Illness - History of Present Illness History of Present Illness: Consult for fever Patient is a 58 year old male with a past medical history of COPD, polysubstance abuse, HTN, depression/anxiety, who originally presented to the hospital with complaints of depression. Medicine was consulted for complaints of fever, chills, chest pain. Patient reports that overnight, he had night sweats, felt feverish, and chest congestion. The patient currently complains of fever, chills, cough with white sputum, and congestions. He also complains of chest pain in his lower ribs when coughing. Patient denies palpitations, shortness of breath, nausea, vomiting, headaches, abdominal pain, diarrhea, constipation, dysuria, leg pain, leg swelling. PMHx:COPD, polysubstance abuse, HTN, depression, anxiety, BPH, chronic pain SUrgHx: 3 surgeries for bleeding ulcers; denies hx of intubation FamHx: unknown SocHx: former 3ppd; currently, 1/2 ppd; hx of heavy alcohol use- last drink was saturday "pint of vodka and a couple of beers"; admits to occasional marijuana use; admits to smoking crack on saturday; currently homeless Allergies: NKDA Medication: "doesnt know the names" Review of Systems - Constitutional Constitutional: Chills, Excessive Sweating, Fever. absent: Headache, Weakness - EENT Eyes: absent: Change in Vision Ears: absent: Dizziness Nose/Mouth/Throat: absent: Sore Throat - Cardiovascular Cardiovascular: Chest Pain (chest/rib pain with coughing). absent: Dyspnea, Leg Edema, Lightheadedness, Palpitations, Rapid Heart Rate - Respiratory Respiratory: Cough, Pain with Coughing. absent: Dyspnea, Hemoptysis - Gastrointestinal Gastrointestinal: absent: Abdominal Pain, Constipation, Diarrhea, Hematemesis, Hematochezia, Nausea, Vomiting - Neurological Neurological: absent: Dizziness, Headaches - Endocrine Endocrine: absent: Fatigue, Palpitations Past Patient History - Infectious Disease Hx of Infectious Diseases: None - Past Medical History & Family History Past Medical History?: Yes - Past Social History Smoking Status: Heavy Smoker > 10 Cigarettes Daily - CARDIAC Hx Hypertension: Yes - PULMONARY Hx Asthma: Yes Hx Bronchitis: Yes Hx Chronic Obstructive Pulmonary Disease (COPD): Yes Hx Pneumonia: Yes - NEUROLOGICAL Hx Neurological Disorder: No - HEENT Hx HEENT Problems: No - RENAL Hx Chronic Kidney Disease: No - ENDOCRINE/METABOLIC Hx Endocrine Disorders: No - HEMATOLOGICAL/ONCOLOGICAL Hx Blood Disorders: No - INTEGUMENTARY Hx Dermatological Problems: No - MUSCULOSKELETAL/RHEUMATOLOGICAL Hx Musculoskeletal Disorders: Yes Hx Falls: Yes - GASTROINTESTINAL Hx Gastrointestinal Disorders: Yes Hx Gastroesophageal Reflux: Yes Hx Ulcer: Yes - GENITOURINARY/GYNECOLOGICAL Hx Genitourinary Disorders: No - PSYCHIATRIC Hx Substance Use: Yes - SURGICAL HISTORY Hx Appendectomy: Yes Hx Tonsillectomy: Yes - ANESTHESIA Hx Anesthesia: Yes Hx Anesthesia Reactions: No Hx Malignant Hyperthermia: No Meds Allergies/Adverse Reactions: Allergies Allergy/AdvReac Type Severity Reaction Status Date / Time No Known Allergies Allergy Verified 08/25/18 11:08 - Medications Medications: Current Medications Acetaminophen (Tylenol 325mg Tab) 650 mg PO Q6 PRN PRN Reason: Pain, moderate (4-7) Last Admin: 09/21/18 06:50 Dose: 650 mg Al Hydrox/Mg Hydrox/Simethicone (Maalox 30 Ml) 30 ml PO Q6H PRN PRN Reason: Indigestion / Heartburn Last Admin: 09/14/18 21:08 Dose: 30 ml Albuterol (Ventolin Hfa 90 Mcg/Actuation (8 G)) 1 puff INH RQ4 PRN PRN Reason: Shortness of Breath Last Admin: 09/21/18 06:51 Dose: 1 puff Chlordiazepoxide (Librium) 25 mg PO Q8 PRN PRN Reason: Alcohol Withdrawal Clonidine HCl (Catapres) 0.1 mg PO Q4H PRN PRN Reason: Symptoms of alcohol withdrawl Fluticasone/Vilanterol (Breo Ellipta 200-25 Mcg Inh) 1 puff INH RQD [facility] Last Admin: 09/20/18 08:53 Dose: 1 puff Folic Acid (Folic Acid) 1 mg PO DAILY [facility] Last Admin: 09/20/18 09:54 Dose: 1 mg Gabapentin (Neurontin) 300 mg PO BID [facility] Last Admin: 09/20/18 18:03 Dose: 300 mg Guaifenesin/Dextromethorphan (Robitussin Dm) 10 ml PO Q4H PRN PRN Reason: Cough and congestion Last Admin: 09/21/18 06:51 Dose: 10 ml Sodium Chloride (Sodium Chloride 0.9%) 500 mls @ 75 mls/hr IV .Q6H40M [facility] Meropenem 1 gm/ Sodium (Chloride) 100 mls @ 100 mls/hr IVPB Q8H [facility]ERNA[facility]; Protocol Vancomycin HCl 1 gm/ Sodium (Chloride) 250 mls @ 166.7 mls/hr IVPB Q12H [facility]; Protocol Lisinopril (Zestril) 10 mg PO DAILY [facility] Last Admin: 09/20/18 09:54 Dose: 10 mg Mirtazapine (Remeron) 45 mg PO HS [facility] Last Admin: 09/20/18 21:11 Dose: 45 mg Montelukast Sodium (Singulair) 10 mg PO HS [facility] Last Admin: 09/20/18 21:12 Dose: 10 mg Multivitamins (Hexavitamin) 1 tab PO DAILY [facility] Last Admin: 09/20/18 09:54 Dose: 1 tab Nicotine (Nicoderm Cq) 1 patch TD DAILY [facility] Last Admin: 09/20/18 09:54 Dose: 1 patch Sertraline HCl (Zoloft) 100 mg PO DAILY [facility] Last Admin: 09/20/18 09:54 Dose: 100 mg Thiamine HCl (Vitamin B1 Tab) 100 mg PO DAILY [facility] Last Admin: 09/20/18 09:54 Dose: 100 mg Tiotropium [place] (Spiriva) 18 mcg INH RQ24 [facility] Trazodone HCl (Desyrel) 100 mg PO HS PRN PRN Reason: insomnia Last Admin: 09/20/18 21:11 Dose: 100 mg Physical Exam - Constitutional Appears: No Acute Distress - Head Exam Head Exam: ATRAUMATIC, NORMAL INSPECTION - Eye Exam Eye Exam: EOMI, Normal appearance - ENT Exam ENT Exam: Mucous Membranes Moist - Respiratory Exam Respiratory Exam: Decreased Breath Sounds, Wheezes, NORMAL BREATHING PATTERN. absent: Respiratory Distress - Cardiovascular Exam Cardiovascular Exam: REGULAR RHYTHM, +S1, +S2 - GI/Abdominal Exam GI & Abdominal Exam: Normal Bowel Sounds, Soft. absent: Distended, Firm, Guarding, Tenderness - Extremities Exam Extremities exam: Positive for: normal inspection - Neurological Exam Neurological exam: Alert, Oriented x3 - Psychiatric Exam Psychiatric exam: Normal Affect, Normal Mood - Skin Skin Exam: Dry, Normal Color, Warm Results - Vital Signs Recent Vital Signs: Last Vital Signs Temp 102 F H 09/21/18 06:50 Pulse 119 H 09/21/18 06:00 Resp 20 09/21/18 06:00 BP 141/61 09/21/18 06:00 Pulse Ox 93 L 09/21/18 06:00 - Labs Result Diagrams: 09/21/18 08:54 09/21/18 08:54 Labs: Laboratory Results - last 24 hr 09/21/18 09/21/18 08:54 08:54 WBC 16.5 H D RBC 3.78 L Hgb 9.6 L Hct 30.3 L MCV 80.1 MCH 25.3 L MCHC 31.6 L RDW 23.5 H Plt Count 360 D MPV 8.7 Neut % (Auto) 87.2 H Lymph % (Auto) 5.9 L [place] % (Auto) 3.4 Eos % (Auto) 3.0 Baso % (Auto) 0.5 Neut # (Auto) 14.4 H Lymph # (Auto) 1.0 [place] # (Auto) 0.6 Eos # (Auto) 0.5 Baso # (Auto) 0.1 Sodium 137 Potassium 4.5 Chloride 94 L Carbon Dioxide 30 Anion Gap 17 BUN 17 Creatinine 0.7 L Est GFR ( Amer) > 60 Est GFR (Non-Af Amer) > 60 Random Glucose 153 H Calcium 9.2 Total Bilirubin 0.4 AST 20 ALT 17 L D Alkaline Phosphatase 74 Total Protein 7.0 Albumin 3.6 Globulin 3.4 Albumin/Globulin Ratio 1.1 Assessment & Plan - Assessment and Plan (Free Text) Plan: HAP Febrile, leukocytosis Transferred [facility] to medical floors for further treatment CXR (09/21): stable COPD pattern; no acute interval changes CXR (09/12): Hyperinflation suggestive of COPD. persistent blunting of hemidiaphragm bilaterally consistent with small pleural effusions and/or thickening Started Merrem 1gm IV Q8hr (active since 09/21) Started Vanco 1gm IV Q12h (active since 09/21) ID consulted, Dr. Crowder; help appreciated Vanc trough: f/u Blood cx: f/u Sputum cx: f/u Throat cx: f/u Mycoplasma, s.pneumo, legionella: f/u Chest pain Likely pleuritic; patient points to the rib and states it only occurs with coughing Troponin: neg x2 EKG: f/u COPD exacerbation CXR (09/21): stable COPD pattern; no acute interval changes CXR (09/12): Hyperinflation suggestive of COPD. persistent blunting of hemidiaphragm bilaterally consistent with small pleural effusions and/or thickening Robitussin DM q4h prn Singulair 10mg po HS Duonebs q4h PRN Spiriva 1 inh Q24 Breo ELlipta 1puff daily Hypertension Lisinopril 10mg po daily Psychiatric disorder History of polysubstance abuse, depression and anxiety Psychiatry on board- continue management per psych Remeron 45mg PO HS Zoloft 100mg PO daily BPH (benign prostatic hyperplasia) Flomax 0.4mg PO daily Tobacco abuse Nicotine patch Chronic pain Gabapentin 300mg PO BID Prophylactic measure Pepcid 20mg po daily SCDs Tylenol 650mg po q6h prn for fevers Multivitamin 1 tab PO daily Folic Acid 1 tab PO daily All management and orders per Dr. Shafer <Margie Shafer V - Last Filed: 09/23/18 20:01> Meds - Medications Medications: Current Medications Acetaminophen (Tylenol 325mg Tab) 650 mg PO Q6 PRN PRN Reason: Pain, moderate (4-7) Last Admin: 09/23/18 03:59 Dose: 650 mg Al Hydrox/Mg Hydrox/Simethicone (Maalox 30 Ml) 30 ml PO Q6H PRN PRN Reason: Indigestion / Heartburn Last Admin: 09/14/18 21:08 Dose: 30 ml Albuterol (Ventolin Hfa 90 Mcg/Actuation (8 G)) 1 puff INH RQ4 PRN PRN Reason: Shortness of Breath Last Admin: 09/21/18 06:51 Dose: 1 puff Albuterol/Ipratropium (Duoneb 3 Mg/0.5 Mg (3 Ml) Ud) 3 ml INH RQ6 PRN PRN Reason: Cough and congestion Last Admin: 09/23/18 19:40 Dose: 3 ml Chlordiazepoxide (Librium) 25 mg PO Q8 PRN PRN Reason: Alcohol Withdrawal Clonidine HCl (Catapres) 0.1 mg PO Q4H PRN PRN Reason: Symptoms of alcohol withdrawl Famotidine (Pepcid) 20 mg PO DAILY [facility] Last Admin: 09/23/18 09:13 Dose: 20 mg Fluticasone/Vilanterol (Breo Ellipta 200-25 Mcg Inh) 1 puff INH RQD [facility] Last Admin: 09/23/18 07:45 Dose: 1 puff Folic Acid (Folic Acid) 1 mg PO DAILY [facility] Last Admin: 09/23/18 09:13 Dose: 1 mg Gabapentin (Neurontin) 300 mg PO BID [facility] Last Admin: 09/23/18 17:30 Dose: 300 mg Guaifenesin/Dextromethorphan (Robitussin Dm) 10 ml PO Q4H PRN PRN Reason: Cough and congestion Last Admin: 09/23/18 19:26 Dose: 10 ml Lisinopril (Zestril) 10 mg PO DAILY [facility] Last Admin: 09/23/18 09:13 Dose: 10 mg Mirtazapine (Remeron) 45 mg PO HS [facility] Last Admin: 09/22/18 22:30 Dose: 45 mg Montelukast Sodium (Singulair) 10 mg PO HS [facility] Last Admin: 09/22/18 22:30 Dose: 10 mg Multivitamins (Hexavitamin) 1 tab PO DAILY [facility] Last Admin: 09/23/18 09:14 Dose: 1 tab Nicotine (Nicoderm Cq) 1 patch TD DAILY [facility] Last Admin: 09/23/18 09:14 Dose: 1 patch Saccharomyces Boulardii (Florastor) 250 mg PO BID [facility] Last Admin: 09/23/18 17:35 Dose: 250 mg Sertraline HCl (Zoloft) 100 mg PO DAILY [facility] Last Admin: 09/23/18 09:14 Dose: 100 mg Tamsulosin HCl (Flomax) 0.4 mg PO DAILY [facility] Last Admin: 09/23/18 09:13 Dose: 0.4 mg Thiamine HCl (Vitamin B1 Tab) 100 mg PO DAILY [facility] Last Admin: 09/23/18 09:18 Dose: 100 mg Tiotropium [place] (Spiriva) 18 mcg INH RQ24 [facility] Last Admin: 09/23/18 07:45 Dose: 18 mcg Trazodone HCl (Desyrel) 100 mg PO HS PRN PRN Reason: insomnia Last Admin: 09/20/18 21:11 Dose: 100 mg Results - Vital Signs Recent Vital Signs: Last Vital Signs Temp 98.1 F 09/23/18 16:00 Pulse 89 09/23/18 16:00 Resp 20 09/23/18 16:00 BP 100/59 L 09/23/18 16:00 Pulse Ox 95 09/23/18 16:00 - Labs Result Diagrams: 09/23/18 08:09 09/23/18 08:09 Labs: Laboratory Results - last 24 hr 09/21/18 09/23/18 09/23/18 11:20 08:09 08:09 WBC 10.2 RBC 3.17 L Hgb 8.3 L Hct 25.5 L MCV 80.3 MCH 26.1 L MCHC 32.5 L RDW 23.0 H Plt Count 331 MPV 8.3 Neut % (Auto) 76.6 H Lymph % (Auto) 14.4 L [place] % (Auto) 5.5 Eos % (Auto) 3.0 Baso % (Auto) 0.5 Neut # (Auto) 7.8 H Lymph # (Auto) 1.5 [place] # (Auto) 0.6 Eos # (Auto) 0.3 Baso # (Auto) 0.0 Retic Count Sodium 142 Potassium 4.2 Chloride 104 Carbon Dioxide 29 Anion Gap 13 BUN 15 Creatinine 0.6 L Est GFR ( Amer) > 60 Est GFR (Non-Af Amer) > 60 POC Glucose (mg/dL) Random Glucose 89 Calcium 8.5 L Phosphorus 3.2 Magnesium 2.3 Iron TIBC % Saturation Ferritin Total Bilirubin 0.2 AST 25 ALT 26 Alkaline Phosphatase 68 Total Protein 6.6 Albumin 3.4 L Globulin 3.2 Albumin/Globulin Ratio 1.1 Vitamin B12 Stool Occult Blood Ur Strep pneumoniae Ag Not detected 09/23/18 09/23/18 09/23/18 11:24 11:59 11:59 WBC RBC Hgb Hct MCV MCH MCHC RDW Plt Count MPV Neut % (Auto) Lymph % (Auto) [place] % (Auto) Eos % (Auto) Baso % (Auto) Neut # (Auto) Lymph # (Auto) [place] # (Auto) Eos # (Auto) Baso # (Auto) Retic Count 1.2 Sodium Potassium Chloride Carbon Dioxide Anion Gap BUN Creatinine Est GFR ( Amer) Est GFR (Non-Af Amer) POC Glucose (mg/dL) 120 H Random Glucose Calcium Phosphorus Magnesium Iron 14 L TIBC 312 % Saturation 5 L Ferritin Total Bilirubin AST ALT Alkaline Phosphatase Total Protein Albumin Globulin Albumin/Globulin Ratio Vitamin B12 Stool Occult Blood Ur Strep pneumoniae Ag 09/23/18 09/23/18 11:59 17:18 WBC RBC Hgb Hct MCV MCH MCHC RDW Plt Count MPV Neut % (Auto) Lymph % (Auto) [place] % (Auto) Eos % (Auto) Baso % (Auto) Neut # (Auto) Lymph # (Auto) [place] # (Auto) Eos # (Auto) Baso # (Auto) Retic Count Sodium Potassium Chloride Carbon Dioxide Anion Gap BUN Creatinine Est GFR ( Amer) Est GFR (Non-Af Amer) POC Glucose (mg/dL) Random Glucose Calcium Phosphorus Magnesium Iron TIBC % Saturation Ferritin 178.0 Total Bilirubin AST ALT Alkaline Phosphatase Total Protein Albumin Globulin Albumin/Globulin Ratio Vitamin B12 482 Stool Occult Blood Negative Ur Strep pneumoniae Ag Attending/Attestation - Attestation I have personally seen and examined this patient.: Yes I have fully participated in the care of the patient.: Yes I have reviewed all pertinent clinical information: Yes Notes (Text): This is late computer entry for 09/21/18. Patient seen, examined and case discussed with medical office manager. Patient who has had frequent hospitalization for COPD and underlying psychiatric conditions. Patient this morning had a fever, chest congestion, and audible wheezing and associated pleuritic chest pain. Patient transferred out to the telemetry floor. Patient started on IV antibiotic to cover for health care associated pneumonia. Infectious disease consult. Assessment/Plan Healthcare Associated Pneumonia Febrile, leukocytosis Transferred from psych to medical floors for further treatment CXR (09/21): stable COPD pattern; no acute interval changes CXR (09/12): Hyperinflation suggestive of COPD. persistent blunting of hemidia phragm bilaterally consistent with small pleural effusions and/or thickening Started Merrem 1gm IV Q8hr (active since 09/21) Started Vanco 1gm IV Q12h (active since 09/21) ID consulted, Dr. Crowder; help appreciated Vanc trough: f/u Blood cx: f/u Sputum cx: f/u Throat cx: f/u Mycoplasma, s.pneumo, legionella: f/u Chest pain Likely pleuritic; patient points to the rib and states it only occurs with coughing Troponin: neg x2 EKG: f/u COPD exacerbation CXR (09/21): stable COPD pattern; no acute interval changes CXR (09/12): Hyperinflation suggestive of COPD. persistent blunting of hemidiaphragm bilaterally consistent with small pleural effusions and/or thickening Robitussin DM q4h prn Singulair 10mg po HS Duonebs q4h PRN Spiriva 1 inh Q24 Breo ELlipta 1puff daily Hypertension Lisinopril 10mg po daily Psychiatric disorder History of polysubstance abuse, depression and anxiety Psychiatry on board- continue management per psych Remeron 45mg PO HS Zoloft 100mg PO daily BPH (benign prostatic hyperplasia) Flomax 0.4mg PO daily Tobacco abuse Nicotine patch Chronic pain Gabapentin 300mg PO BID Prophylactic measure Pepcid 20mg po daily SCDs Tylenol 650mg po q6h prn for fevers Multivitamin 1 tab PO daily Folic Acid 1 tab PO daily
[2018-09-21] MEDS: Multiple Vitamins Tab PO SCH (10:12)
[2018-09-21] MEDS: Fluticasone-Vilanterol 200/25mcg Diskus INH SCH (10:14)
[2018-09-21 10:52] LABS: ANISOCYTOSIS MODERATE; BANDS 9 % (0-2); BASOPHIL 1 % (0-2); EOSINOPHIL 1 % (0-4); LYMPHOCYTE 4 % (20-40); MONOCYTE 6 % (0-10); NEUTROPHIL 79 % (50-75); PLATELET ESTIMATE NORMAL (NORMAL); POIKILOCYTOSIS SLIGHT; TOTAL CELLS COUNTED 100
[2018-09-21 10:53] LABS: HYPOCHROMIC SLIGHT; LARGE PLATELETS PRESENT; MICROCYTOSIS SLIGHT; OVALOCYTES SLIGHT; POLYCHROMIC SLIGHT; TEARDROP CELLS SLIGHT
[2018-09-21 11:03] LABS: LEGIONELLA AG URINE NEGATIVE (NEGATIVE)
[2018-09-21] MEDS: Meropenem 1 GM in Sodium Chloride 0.9% 100 ML IVPB SCH ×2 (11:42→18:08)
[2018-09-21] MEDS: Vancomycin 1 gm/NS 200 ml 1 GM/200 ML BAG IVPB SCH ×2 (11:43→21:50)
[2018-09-21] MEDS: Sodium Chloride 0.9% 500 ML IV SCH ×3 (11:48→22:08)
--- NOTE | 2018-09-21 13:48 | CP.PCM.CON ---
History of Present Illness - History of Present Illness History of Present Illness: + COUGH AND CONGESTION SOB NO SHITAL WILL SEND CULTURES HX REVIEWED PT EXAMINED DISCUSSED WITH PMD Review of Systems - Review of Systems All systems: reviewed and no additional remarkable complaints except - Constitutional Constitutional: As Per HPI - EENT Eyes: absent: As Per HPI, Blind Spots, Blurred Vision, Change in Vision, Decreased Night Vision, Diplopia, Discharge, Dry Eye, Exophthalmos, Floaters, Irritation, Itchy Eyes, Loss of Peripheral Vision, Pain, Photophobia, Requires Corrective Lenses, Sees Flashes, Spots in Vision, Tunnel Vision, Other Visual Disturbances, Loss of Vision, Other Ears: absent: As Per HPI, Decreased Hearing, Ear Discharge, Ear Pain, Tinnitus, Abnormal Hearing, Disequilibrium, Dizziness, Other Nose/Mouth/Throat: absent: As Per HPI, Epistaxis, Nasal Congestion, Nasal Discharge, Nasal Obstruction, Nasal Trauma, Nose Pain, Post Nasal Drip, Sinus Pain, Sinus Pressure, Bleeding Gums, Change in Voice, Dental Pain, Dry Mouth, Dysphagia, Halitosis, Hoarsness, Lip Swelling, Mouth Lesions, Mouth Pain, Odynophagia, Sore Throat, Throat Swelling, Tongue Swelling, Facial Pain, Neck Pain, Neck Mass, Other - Cardiovascular Cardiovascular: As Per HPI - Respiratory Respiratory: As Per HPI, Cough, Dyspnea. absent: Hemoptysis - Gastrointestinal Gastrointestinal: absent: As Per HPI, Abdominal Pain, Belching, Bloating, Change in Bowel Habits, Change in Stool Character, Coffee Ground Emesis, Constipation, Cramping, Diarrhea, Dyspepsia, Dysphagia, Early Satiety, Excessive Flatus, Fecal Incontinence, Heartburn, Hematemesis, Hematochezia, Loose Stools, Melena, Nausea, Odynophagia, Temesmus, Vomiting, Other - Genitourinary Genitourinary: absent: As Per HPI, Change in Urinary Stream, Difficulty Urinating, Dysuria, Flank Pain, Hematuria, Pyuria, Nocturia, Urinary Incontinence, Urinary Frequency, Urinary Hesitance, Urinary Urgency, Voiding Freq/Small Amts, Freq UTI, Hx Renal/Bladder Calculi, Hx /Renal Surgery, Bladder Distension, Other - Musculoskeletal Musculoskeletal: absent: As Per HPI, Abnormal Gait, Arthralgias, Atrophy, Back Pain, Deformity, Joint Swelling, Limited Range of Motion, Loss of Height, Muscle Cramps, Muscle Weakness, Myalgias, Neck Pain, Numbness, Radiating Pain into Limb, Stiffness, Tingling, Other - Integumentary Integumentary: absent: As Per HPI, Acne, Alopecia, Bleeding Lesions, Change in Hair, Change in Nails, Change in Pigmentation, Changing Lesions, Dry Skin, Erythema, Furuncle, Hirsutism, Lesions, New Lesions, Non-Healing Lesions, Photosensitivity, Pruritus, Rash, Skin Pain, Skin Ulcer, Sores, Striae, Swelling, Unusual Bruising, Wounds, Jaundice, Other Past Patient History - Infectious Disease Hx of Infectious Diseases: None - Past Medical History & Family History Past Medical History?: Yes - Past Social History Smoking Status: Current Some Days Smoker - CARDIAC Hx Hypertension: Yes - PULMONARY Hx Asthma: Yes Hx Bronchitis: Yes Hx Chronic Obstructive Pulmonary Disease (COPD): Yes Hx Pneumonia: Yes - NEUROLOGICAL Hx Neurological Disorder: No - HEENT Hx HEENT Problems: No - RENAL Hx Chronic Kidney Disease: No - ENDOCRINE/METABOLIC Hx Endocrine Disorders: No - HEMATOLOGICAL/ONCOLOGICAL Hx Blood Disorders: No - INTEGUMENTARY Hx Dermatological Problems: No - MUSCULOSKELETAL/RHEUMATOLOGICAL Hx Falls: No - GASTROINTESTINAL Hx Gastrointestinal Disorders: Yes Hx Gastroesophageal Reflux: Yes Hx Ulcer: Yes - GENITOURINARY/GYNECOLOGICAL Hx Genitourinary Disorders: No - PSYCHIATRIC Hx Substance Use: (refuses to answer) - SURGICAL HISTORY Hx Appendectomy: Yes Hx Tonsillectomy: Yes - ANESTHESIA Hx Anesthesia: Yes Hx Anesthesia Reactions: No Hx Malignant Hyperthermia: No Meds Home Medications: Home Medication List Medication Instructions Recorded Confirmed Type Guaifenesin [Mucinex] 600 mg PO Q12H #28 tab.er.12h 09/25/18 Rx Methylprednisolone [Medrol Dose 4 mg PO ASDIR #21 mg 09/25/18 Rx Pack (21 tabs)] RX: Albuterol HFA [Ventolin HFA 90 1 puff INH RQ4 PRN #0 inhaler 09/25/18 Rx mcg/actuation (8 g)] RX: Fluticasone/Vilanterol 200/25 1 puff INH RQD #0 inhaler 09/25/18 Rx [Breo Ellipta 200-25 Mcg INH] RX: Gabapentin [Neurontin] 300 mg PO BID cap 09/25/18 Rx RX: Lisinopril [Zestril] 10 mg PO DAILY tab 09/25/18 Rx RX: Mirtazapine [Remeron] 45 mg PO HS tab 09/25/18 Rx RX: Montelukast [Singulair] 10 mg PO HS tab 09/25/18 Rx RX: Multivitamins [Hexavitamin] 1 tab PO DAILY tab 09/25/18 Rx RX: Sertraline [Zoloft] 100 mg PO DAILY tab 09/25/18 Rx RX: Thiamine [Vitamin B1 Tab] 100 mg PO DAILY tab 09/25/18 Rx RX: Tiotropium [Spiriva] 18 mcg INH RQ24 cap 09/25/18 Rx RX: traZODone [Desyrel] 100 mg PO HS PRN tab 09/25/18 Rx Allergies/Adverse Reactions: Allergies Allergy/AdvReac Type Severity Reaction Status Date / Time No Known Allergies Allergy Verified 08/25/18 11:08 - Medications Medications: Current Medications Acetaminophen (Tylenol 325mg Tab) 650 mg PO Q6 PRN PRN Reason: Pain, moderate (4-7) Last Admin: 09/21/18 06:50 Dose: 650 mg Al Hydrox/Mg Hydrox/Simethicone (Maalox 30 Ml) 30 ml PO Q6H PRN PRN Reason: Indigestion / Heartburn Last Admin: 09/14/18 21:08 Dose: 30 ml Albuterol (Ventolin Hfa 90 Mcg/Actuation (8 G)) 1 puff INH RQ4 PRN PRN Reason: Shortness of Breath Last Admin: 09/21/18 06:51 Dose: 1 puff Chlordiazepoxide (Librium) 25 mg PO Q8 PRN PRN Reason: Alcohol Withdrawal Clonidine HCl (Catapres) 0.1 mg PO Q4H PRN PRN Reason: Symptoms of alcohol withdrawl Fluticasone/Vilanterol (Breo Ellipta 200-25 Mcg Inh) 1 puff INH RQD [facility] Last Admin: 09/21/18 10:14 Dose: 1 puff Folic Acid (Folic Acid) 1 mg PO DAILY [facility] Last Admin: 09/21/18 10:12 Dose: 1 mg Gabapentin (Neurontin) 300 mg PO BID [facility] Last Admin: 09/21/18 10:12 Dose: 300 mg Guaifenesin/Dextromethorphan (Robitussin Dm) 10 ml PO Q4H PRN PRN Reason: Cough and congestion Last Admin: 09/21/18 06:51 Dose: 10 ml Sodium Chloride (Sodium Chloride 0.9%) 500 mls @ 75 mls/hr IV .Q6H40M [facility] Last Admin: 09/21/18 11:48 Dose: 75 mls/hr Meropenem 1 gm/ Sodium (Chloride) 100 mls @ 100 mls/hr IVPB Q8H [facility]; Protocol Last Admin: 09/21/18 11:42 Dose: 100 mls/hr Vancomycin/Sodium Chloride (Vancomycin 1 Gm/Ns 200 Ml) 1 gm in 200 mls @ 133.333 mls/hr IVPB Q12H [facility]; Protocol Stop: 09/26/18 10:31 Last Admin: 09/21/18 11:43 Dose: 133.333 mls/hr Lisinopril (Zestril) 10 mg PO DAILY [facility] Last Admin: 09/21/18 10:14 Dose: Not Given Mirtazapine (Remeron) 45 mg PO HS [facility] Last Admin: 09/20/18 21:11 Dose: 45 mg Montelukast Sodium (Singulair) 10 mg PO HS [facility] Last Admin: 09/20/18 21:12 Dose: 10 mg Multivitamins (Hexavitamin) 1 tab PO DAILY [facility] Last Admin: 09/21/18 10:12 Dose: 1 tab Nicotine (Nicoderm Cq) 1 patch TD DAILY [facility] Last Admin: 09/21/18 10:15 Dose: Not Given Sertraline HCl (Zoloft) 100 mg PO DAILY [facility] Last Admin: 09/21/18 10:12 Dose: 100 mg Thiamine HCl (Vitamin B1 Tab) 100 mg PO DAILY [facility] Last Admin: 09/21/18 10:12 Dose: 100 mg Tiotropium [place] (Spiriva) 18 mcg INH RQ24 [facility] Last Admin: 09/21/18 08:15 Dose: 18 mcg Trazodone HCl (Desyrel) 100 mg PO HS PRN PRN Reason: insomnia Last Admin: 09/20/18 21:11 Dose: 100 mg Physical Exam - Constitutional Appears: Non-toxic, Chronically Ill - Head Exam Head Exam: NORMOCEPHALIC - Eye Exam Eye Exam: absent: Scleral icterus - ENT Exam ENT Exam: Mucous Membranes Dry, Normal External Ear Exam - Neck Exam Neck exam: Negative for: Lymphadenopathy - Respiratory Exam Respiratory Exam: Decreased Breath Sounds, Prolonged Expiratory Phase, Rhonchi - Cardiovascular Exam Cardiovascular Exam: REGULAR RHYTHM, +S1, +S2 - GI/Abdominal Exam GI & Abdominal Exam: Diminished Bowel Sounds, Soft. absent: Tenderness - Rectal Exam Rectal Exam: Deferred - Exam Exam: NORMAL INSPECTION - Extremities Exam Extremities exam: Positive for: pedal pulses present. Negative for: calf tenderness, pedal edema, tenderness - Back Exam Back exam: absent: CVA tenderness (L), CVA tenderness (R), paraspinal tenderness - Neurological Exam Neurological exam: Alert, CN II-XII Intact, Oriented x3, Reflexes Normal - Psychiatric Exam Psychiatric exam: Normal Mood - Skin Skin Exam: Dry, Intact Results - Vital Signs Recent Vital Signs: Last Vital Signs Temp 98.2 F 09/21/18 11:48 Pulse 101 H 09/21/18 11:48 Resp 20 09/21/18 11:48 BP 100/65 09/21/18 11:48 Pulse Ox 94 L 09/21/18 11:48 - Labs Result Diagrams: 09/25/18 07:39 09/25/18 07:39 Labs: Laboratory Results - last 24 hr 09/21/18 09/21/18 09/21/18 08:54 08:54 08:54 WBC 16.5 H D RBC 3.78 L Hgb 9.6 L Hct 30.3 L MCV 80.1 MCH 25.3 L MCHC 31.6 L RDW 23.5 H Plt Count 360 D MPV 8.7 Neut % (Auto) 87.2 H Lymph % (Auto) 5.9 L [place] % (Auto) 3.4 Eos % (Auto) 3.0 Baso % (Auto) 0.5 Neut # (Auto) 14.4 H Lymph # (Auto) 1.0 [place] # (Auto) 0.6 Eos # (Auto) 0.5 Baso # (Auto) 0.1 Neutrophils % (Manual) 79 H Band Neutrophils % 9 H Lymphocytes % (Manual) 4 L Monocytes % (Manual) 6 Eosinophils % (Manual) 1 Basophils % (Manual) 1 Platelet Estimate Normal Large Platelets Present Polychromasia Slight Hypochromasia (manual) Slight Poikilocytosis (manual Slight Anisocytosis (manual) Moderate Microcytosis (manual) Slight Tear Drop Cells Slight Ovalocytes Slight Sodium 137 Potassium 4.5 Chloride 94 L Carbon Dioxide 30 Anion Gap 17 BUN 17 Creatinine 0.7 L Est GFR ( Amer) > 60 Est GFR (Non-Af Amer) > 60 Random Glucose 153 H Calcium 9.2 Total Bilirubin 0.4 AST 20 ALT 17 L D Alkaline Phosphatase 74 Troponin I Total Protein 7.0 Albumin 3.6 Globulin 3.4 Albumin/Globulin Ratio 1.1 Procalcitonin Ur L.pneumophila Ag Negative Grp A Beta Strep Ag Negative 09/21/18 09/21/18 08:54 09:09 WBC RBC Hgb Hct MCV MCH MCHC RDW Plt Count MPV Neut % (Auto) Lymph % (Auto) [place] % (Auto) Eos % (Auto) Baso % (Auto) Neut # (Auto) Lymph # (Auto) [place] # (Auto) Eos # (Auto) Baso # (Auto) Neutrophils % (Manual) Band Neutrophils % Lymphocytes % (Manual) Monocytes % (Manual) Eosinophils % (Manual) Basophils % (Manual) Platelet Estimate Large Platelets Polychromasia Hypochromasia (manual) Poikilocytosis (manual Anisocytosis (manual) Microcytosis (manual) Tear Drop Cells Ovalocytes Sodium Potassium Chloride Carbon Dioxide Anion Gap BUN Creatinine Est GFR ( Amer) Est GFR (Non-Af Amer) Random Glucose Calcium Total Bilirubin AST ALT Alkaline Phosphatase Troponin I < 0.0120 Total Protein Albumin Globulin Albumin/Globulin Ratio Procalcitonin 0.08 L Ur L.pneumophila Ag Grp A Beta Strep Ag Assessment & Plan (1) Alcohol intoxication Status: Acute (2) BPH (benign prostatic hyperplasia) Status: Acute (3) Bronchitis Status: Acute (4) Bronchospasm Status: Acute (5) COPD (chronic obstructive pulmonary disease) Status: Acute - Assessment and Plan (Free Text) Assessment: CONT IV RX ORDERED [employer]
[2018-09-21 16:55] LABS: CK-MB 0.31 ng/mL (0.0-3.38)
--- NOTE | 2018-09-21 17:00 | CP.PCM.CON ---
History of Present Illness - History of Present Illness History of Present Illness: 58 y/o male with a PMHx of COPD presents to the ED complaining of SOB Treated on psychfor depression Now on medical floor for exac COPD and ? pneumonia - Medical History PMH: Anxiety, Asthma, Bronchitis, COPD, Depression, Gastrointestinal Ulcer, HTN, Pneumonia Denies: Chronic Kidney Disease Surgical History: Appendectomy, Tonsillectomy Review of Systems - Review of Systems All systems: reviewed and no additional remarkable complaints except - Constitutional Constitutional: As Per HPI - EENT Eyes: absent: As Per HPI, Blind Spots, Blurred Vision, Change in Vision, Decreased Night Vision, Diplopia, Discharge, Dry Eye, Exophthalmos, Floaters, Irritation, Itchy Eyes, Loss of Peripheral Vision, Pain, Photophobia, Requires Corrective Lenses, Sees Flashes, Spots in Vision, Tunnel Vision, Other Visual Disturbances, Loss of Vision, Other Ears: absent: As Per HPI, Decreased Hearing, Ear Discharge, Ear Pain, Tinnitus, Abnormal Hearing, Disequilibrium, Dizziness, Other Nose/Mouth/Throat: absent: As Per HPI, Epistaxis, Nasal Congestion, Nasal Discharge, Nasal Obstruction, Nasal Trauma, Nose Pain, Post Nasal Drip, Sinus Pain, Sinus Pressure, Bleeding Gums, Change in Voice, Dental Pain, Dry Mouth, Dysphagia, Halitosis, Hoarsness, Lip Swelling, Mouth Lesions, Mouth Pain, Odynophagia, Sore Throat, Throat Swelling, Tongue Swelling, Facial Pain, Neck Pain, Neck Mass, Other - Cardiovascular Cardiovascular: As Per HPI - Respiratory Respiratory: As Per HPI, Cough, Dyspnea. absent: Hemoptysis - Gastrointestinal Gastrointestinal: absent: As Per HPI, Abdominal Pain, Belching, Bloating, Change in Bowel Habits, Change in Stool Character, Coffee Ground Emesis, Constipation, Cramping, Diarrhea, Dyspepsia, Dysphagia, Early Satiety, Excessive Flatus, Fecal Incontinence, Heartburn, Hematemesis, Hematochezia, Loose Stools, Melena, Nausea, Odynophagia, Temesmus, Vomiting, Other - Genitourinary Genitourinary: absent: As Per HPI, Change in Urinary Stream, Difficulty Urinating, Dysuria, Flank Pain, Hematuria, Pyuria, Nocturia, Urinary Incontinence, Urinary Frequency, Urinary Hesitance, Urinary Urgency, Voiding Freq/Small Amts, Freq UTI, Hx Renal/Bladder Calculi, Hx /Renal Surgery, Bladder Distension, Other - Musculoskeletal Musculoskeletal: absent: As Per HPI, Abnormal Gait, Arthralgias, Atrophy, Back Pain, Deformity, Joint Swelling, Limited Range of Motion, Loss of Height, Muscle Cramps, Muscle Weakness, Myalgias, Neck Pain, Numbness, Radiating Pain into Limb, Stiffness, Tingling, Other - Integumentary Integumentary: absent: As Per HPI, Acne, Alopecia, Bleeding Lesions, Change in Hair, Change in Nails, Change in Pigmentation, Changing Lesions, Dry Skin, Erythema, Furuncle, Hirsutism, Lesions, New Lesions, Non-Healing Lesions, Photosensitivity, Pruritus, Rash, Skin Pain, Skin Ulcer, Sores, Striae, Swelling, Unusual Bruising, Wounds, Jaundice, Other - Neurological Neurological: absent: As Per HPI, Abnormal Gait, Abnormal Hearing, Abnormal Movements, Abnormal Speech, Behavioral Changes, Burning Sensations, Confusion, Convulsions, Disequilibrium, Dizziness, Numbness, Focal Weakness, Frequent Falls, Headaches, Lack of Coordination, Loss of Vision, Memory Loss, Paresthesias, Radicular Pain, Restless Legs, Sensory Deficit, Syncope, Tingling, Tremor, Vertigo, Weakness, Other Visual Disturbances, Other - Psychiatric Psychiatric: As Per HPI - Endocrine Endocrine: absent: As Per HPI, Change in Body Appearance, Change in Libido, Cold Intolorance, Deepening of Voice, Excessive Sweating, Fatigue, Flushing, Heat Intolorance, Increase in Ring/Shoe/Hat Size, Palpitations, Polydipsia, Polyphagia, Polyuria, Other - Hematologic/Lymphatic Hematologic: absent: As Per HPI, Easy Bleeding, Easy Bruising, Lymphadenopathy, Other Past Patient History - Infectious Disease Hx of Infectious Diseases: None - Past Medical History & Family History Past Medical History?: Yes - Past Social History Smoking Status: Current Some Days Smoker - CARDIAC Hx Hypertension: Yes - PULMONARY Hx Asthma: Yes Hx Bronchitis: Yes Hx Chronic Obstructive Pulmonary Disease (COPD): Yes Hx Pneumonia: Yes - NEUROLOGICAL Hx Neurological Disorder: No - HEENT Hx HEENT Problems: No - RENAL Hx Chronic Kidney Disease: No - ENDOCRINE/METABOLIC Hx Endocrine Disorders: No - HEMATOLOGICAL/ONCOLOGICAL Hx Blood Disorders: No - INTEGUMENTARY Hx Dermatological Problems: No - MUSCULOSKELETAL/RHEUMATOLOGICAL Hx Falls: No - GASTROINTESTINAL Hx Gastrointestinal Disorders: Yes Hx Gastroesophageal Reflux: Yes Hx Ulcer: Yes - GENITOURINARY/GYNECOLOGICAL Hx Genitourinary Disorders: No - PSYCHIATRIC Hx Substance Use: (refuses to answer) - SURGICAL HISTORY Hx Appendectomy: Yes Hx Tonsillectomy: Yes - ANESTHESIA Hx Anesthesia: Yes Hx Anesthesia Reactions: No Hx Malignant Hyperthermia: No Meds Allergies/Adverse Reactions: Allergies Allergy/AdvReac Type Severity Reaction Status Date / Time No Known Allergies Allergy Verified 08/25/18 11:08 - Medications Medications: Current Medications Acetaminophen (Tylenol 325mg Tab) 650 mg PO Q6 PRN PRN Reason: Pain, moderate (4-7) Last Admin: 09/21/18 06:50 Dose: 650 mg Al Hydrox/Mg Hydrox/Simethicone (Maalox 30 Ml) 30 ml PO Q6H PRN PRN Reason: Indigestion / Heartburn Last Admin: 09/14/18 21:08 Dose: 30 ml Albuterol (Ventolin Hfa 90 Mcg/Actuation (8 G)) 1 puff INH RQ4 PRN PRN Reason: Shortness of Breath Last Admin: 09/21/18 06:51 Dose: 1 puff Chlordiazepoxide (Librium) 25 mg PO Q8 PRN PRN Reason: Alcohol Withdrawal Clonidine HCl (Catapres) 0.1 mg PO Q4H PRN PRN Reason: Symptoms of alcohol withdrawl Fluticasone/Vilanterol (Breo Ellipta 200-25 Mcg Inh) 1 puff INH RQD [facility] Last Admin: 09/21/18 10:14 Dose: 1 puff Folic Acid (Folic Acid) 1 mg PO DAILY [facility] Last Admin: 09/21/18 10:12 Dose: 1 mg Gabapentin (Neurontin) 300 mg PO BID [facility] Last Admin: 09/21/18 10:12 Dose: 300 mg Guaifenesin/Dextromethorphan (Robitussin Dm) 10 ml PO Q4H PRN PRN Reason: Cough and congestion Last Admin: 09/21/18 06:51 Dose: 10 ml Sodium Chloride (Sodium Chloride 0.9%) 500 mls @ 75 mls/hr IV .Q6H40M [facility] Last Admin: 09/21/18 11:48 Dose: 75 mls/hr Meropenem 1 gm/ Sodium (Chloride) 100 mls @ 100 mls/hr IVPB Q8H [facility]; Protocol Last Admin: 09/21/18 11:42 Dose: 100 mls/hr Vancomycin/Sodium Chloride (Vancomycin 1 Gm/Ns 200 Ml) 1 gm in 200 mls @ 133.333 mls/hr IVPB Q12H [facility]; Protocol Stop: 09/26/18 10:31 Last Admin: 09/21/18 11:43 Dose: 133.333 mls/hr Lisinopril (Zestril) 10 mg PO DAILY [facility] Last Admin: 09/21/18 10:14 Dose: Not Given Mirtazapine (Remeron) 45 mg PO HS [facility] Last Admin: 09/20/18 21:11 Dose: 45 mg Montelukast Sodium (Singulair) 10 mg PO HS [facility] Last Admin: 09/20/18 21:12 Dose: 10 mg Multivitamins (Hexavitamin) 1 tab PO DAILY [facility] Last Admin: 09/21/18 10:12 Dose: 1 tab Nicotine (Nicoderm Cq) 1 patch TD DAILY [facility] Last Admin: 09/21/18 10:15 Dose: Not Given Sertraline HCl (Zoloft) 100 mg PO DAILY [facility] Last Admin: 09/21/18 10:12 Dose: 100 mg Thiamine HCl (Vitamin B1 Tab) 100 mg PO DAILY [facility] Last Admin: 09/21/18 10:12 Dose: 100 mg Tiotropium [place] (Spiriva) 18 mcg INH RQ24 [facility] Last Admin: 09/21/18 08:15 Dose: 18 mcg Trazodone HCl (Desyrel) 100 mg PO HS PRN PRN Reason: insomnia Last Admin: 09/20/18 21:11 Dose: 100 mg Physical Exam - Constitutional Appears: Non-toxic, Chronically Ill - Head Exam Head Exam: NORMOCEPHALIC - Eye Exam Eye Exam: absent: Scleral icterus - ENT Exam ENT Exam: Mucous Membranes Dry - Neck Exam Neck exam: Negative for: Lymphadenopathy - Respiratory Exam Respiratory Exam: Decreased Breath Sounds, Clear to Auscultation Bilateral, Prolonged Expiratory Phase - Cardiovascular Exam Cardiovascular Exam: REGULAR RHYTHM, +S1, +S2 - GI/Abdominal Exam GI & Abdominal Exam: Diminished Bowel Sounds, Soft. absent: Tenderness - Rectal Exam Rectal Exam: Deferred - Exam Exam: NORMAL INSPECTION - Extremities Exam Extremities exam: Negative for: pedal edema - Back Exam Back exam: absent: CVA tenderness (L), CVA tenderness (R) - Neurological Exam Neurological exam: Alert, CN II-XII Intact, Oriented x3, Reflexes Normal - Psychiatric Exam Psychiatric exam: Depressed - Skin Skin Exam: Dry Results - Vital Signs Recent Vital Signs: Last Vital Signs Temp 98.6 F 09/21/18 15:11 Pulse 98 H 09/21/18 15:11 Resp 18 09/21/18 15:11 BP 117/61 09/21/18 15:11 Pulse Ox 95 09/21/18 15:11 - Labs Result Diagrams: 09/21/18 08:54 09/21/18 08:54 Labs: Laboratory Results - last 24 hr 09/21/18 09/21/18 09/21/18 08:54 08:54 08:54 WBC 16.5 H D RBC 3.78 L Hgb 9.6 L Hct 30.3 L MCV 80.1 MCH 25.3 L MCHC 31.6 L RDW 23.5 H Plt Count 360 D MPV 8.7 Neut % (Auto) 87.2 H Lymph % (Auto) 5.9 L [place] % (Auto) 3.4 Eos % (Auto) 3.0 Baso % (Auto) 0.5 Neut # (Auto) 14.4 H Lymph # (Auto) 1.0 [place] # (Auto) 0.6 Eos # (Auto) 0.5 Baso # (Auto) 0.1 Neutrophils % (Manual) 79 H Band Neutrophils % 9 H Lymphocytes % (Manual) 4 L Monocytes % (Manual) 6 Eosinophils % (Manual) 1 Basophils % (Manual) 1 Platelet Estimate Normal Large Platelets Present Polychromasia Slight Hypochromasia (manual) Slight Poikilocytosis (manual Slight Anisocytosis (manual) Moderate Microcytosis (manual) Slight Tear Drop Cells Slight Ovalocytes Slight Sodium 137 Potassium 4.5 Chloride 94 L Carbon Dioxide 30 Anion Gap 17 BUN 17 Creatinine 0.7 L Est GFR ( Amer) > 60 Est GFR (Non-Af Amer) > 60 Random Glucose 153 H Calcium 9.2 Total Bilirubin 0.4 AST 20 ALT 17 L D Alkaline Phosphatase 74 Total Creatine Kinase CK-MB (Mass) Troponin I Total Protein 7.0 Albumin 3.6 Globulin 3.4 Albumin/Globulin Ratio 1.1 Procalcitonin Ur L.pneumophila Ag Negative Grp A Beta Strep Ag Negative 09/21/18 09/21/18 09/21/18 08:54 09:09 16:24 WBC RBC Hgb Hct MCV MCH MCHC RDW Plt Count MPV Neut % (Auto) Lymph % (Auto) [place] % (Auto) Eos % (Auto) Baso % (Auto) Neut # (Auto) Lymph # (Auto) [place] # (Auto) Eos # (Auto) Baso # (Auto) Neutrophils % (Manual) Band Neutrophils % Lymphocytes % (Manual) Monocytes % (Manual) Eosinophils % (Manual) Basophils % (Manual) Platelet Estimate Large Platelets Polychromasia Hypochromasia (manual) Poikilocytosis (manual Anisocytosis (manual) Microcytosis (manual) Tear Drop Cells Ovalocytes Sodium Potassium Chloride Carbon Dioxide Anion Gap BUN Creatinine Est GFR ( Amer) Est GFR (Non-Af Amer) Random Glucose Calcium Total Bilirubin AST ALT Alkaline Phosphatase Total Creatine Kinase < 20 L CK-MB (Mass) 0.31 Troponin I < 0.0120 < 0.0120 Total Protein Albumin Globulin Albumin/Globulin Ratio Procalcitonin 0.08 L Ur L.pneumophila Ag Grp A Beta Strep Ag Assessment & Plan (1) Alcohol dependence Status: Acute (2) BPH (benign prostatic hyperplasia) Status: Acute (3) Bronchitis Status: Acute (4) COPD (chronic obstructive pulmonary disease) Status: Acute (5) Depression Status: Chronic (6) H/O [place] II operation Status: Chronic (7) Tobacco use disorder Status: Chronic - Assessment and Plan (Free Text) Assessment: started on Vanco/Merrem for HAP recc: blood urine and sputum cultures consider CT chest / CT angio
[2018-09-21 18:30] LABS: MYCOPLASMA PNEUMONIAE IGM NEGATIVE (NEGATIVE)
--- NOTE | 2018-09-21 20:33 | PCM.PYCHPN ---
Psychiatric Progress Note - Psychiatric Progress Note Patient seen today, length of contact: 15 minutes Patient Chief Complaint: "I feel sick" Problems Identified/Issues Discussed: The pt is seen, chart reviewed, case discussed with staff. Support given, CBT and [place] used briefly No new symptoms reported, improving slowly and needs more time No SEs from medications, risks discussed. After care discussed but he is now going to medicine b/c of worsening respiratory problems Medication Change: No Medical Record Reviewed: Yes Mental Status Examination - Cognitive Function Orientation: Person, Place, Situation, Time Memory: Intact Attention: WNL Concentration: Poor Association: WNL Fund of Knowledge: Poor - Mood Mood: Depressed, Anxious - Affect Affect: Constricted, Depressed - Speech Speech: Appropriate - Formal Thought Process Formal Thought Process: No Impairment - Suicidal Ideation Suicidal Ideation: No - Homicidal Ideation Homicidal Ideation: No Goal/Treatment Plan - Goal/Treatment Plan Need for Continued Stay: Discharge may exacerbated symptoms, Severe functional impairment Progress Toward Problem(s) and Goals/Treatment Plan: Transfer to Medicine Continue medications Support and psychoeducation daily Attend groups and activities daily After care planning by GABE
[2018-09-22] MEDS: Meropenem 1 GM in Sodium Chloride 0.9% 100 ML IVPB SCH ×3 (02:06→18:14)
[2018-09-22 07:43] LABS: BASO % 0.4 % (0.0-2.0); EOS # 0.4 K/uL (0.0-0.7); EOS % 4.3 % (0.0-4.0); HEMOGLOBIN 8.1 g/dL (12.0-18.0); LYMPH # 1.1 K/uL (1.0-4.3); LYMPH % 11.1 % (20.0-40.0); MEAN CELL VOLUME 80.7 fL (80.0-94.0); MEAN CORPUSCULAR HEMOGLOBIN 26.2 pg (27.0-31.0); MEAN CORPUSCULAR HGB CONC 32.4 g/dL (33.0-37.0); MEAN PLATELET VOLUME 8.1 fL (7.2-11.7); MONO # 0.5 K/uL (0.0-0.8); MONO % 5.4 % (0.0-10.0); NEUT # 7.5 K/uL (1.8-7.0); NEUT % 78.8 % (50.0-75.0); RBC 3.1 Mil/uL (4.40-5.90); RED CELL DISTRIBUTION WIDTH 23.2 % (11.5-14.5); WHITE BLOOD COUNT 9.5 K/uL (4.8-10.8)
[2018-09-22] MEDS: Fluticasone-Vilanterol 200/25mcg Diskus INH SCH (08:00)
[2018-09-22 08:01] LABS: ALBUMIN 3.1 g/dL (3.5-5.0); ALT/SGPT 19 U/L (21-72); AST/SGOT 23 U/L (17-59); BLOOD UREA NITROGEN 15 mg/dL (9-20); CALCIUM 8.5 mg/dl (8.6-10.4); GFR NON-AFRICAN AMERICAN > 60
[2018-09-22] MEDS: Tiotropium 18 mcg Cap For Inhalation INH SCH (08:01)
[2018-09-22] MEDS: Multiple Vitamins Tab PO SCH (09:39)
[2018-09-22] MEDS: guaiFENesin DM 200 mg-20 mg/10 ml UD PO PRN ×4 (09:46→22:37)
[2018-09-22] MEDS ORDERED: MethylPREDNISolone 40 mg Vial IVP STA (10:30)
[2018-09-22] MEDS: Vancomycin 1 gm/NS 200 ml 1 GM/200 ML BAG IVPB SCH ×2 (11:14→22:31)
--- NOTE | 2018-09-22 11:18 | CP.PCM.PN ---
<Bruce Connolly - Last Filed: 09/22/18 11:12> Subjective - Date & Time of Evaluation Date of Evaluation: 09/22/18 Time of Evaluation: 11:12 - Subjective Subjective: PGY-[address] Rojas Patient seen and examined at bedside. No acute events overnight per nursing. Patient is complaining of cough with associated chest pain and sputum production, as well as generalized body aches. Otherwise patient denies shortness of breath at rest, headaches, nausea, vomiting, diarrhea, dizziness. He is being treated with IV faiza and vanc and is amenable to treatment. Objective - Vital Signs/Intake and Output Vital Signs (last 24 hours): Temp Pulse Resp BP Pulse Ox 98.0 F 87 20 97/59 L 97 09/22/18 08:22 09/22/18 08:22 09/22/18 08:22 09/22/18 08:22 09/22/18 08:22 Intake and Output: 09/22/18 09/22/18 06:59 18:59 Intake Total 1575 Balance 1575 - Medications Medications: Current Medications Acetaminophen (Tylenol 325mg Tab) 650 mg PO Q6 PRN PRN Reason: Pain, moderate (4-7) Last Admin: 09/21/18 06:50 Dose: 650 mg Al Hydrox/Mg Hydrox/Simethicone (Maalox 30 Ml) 30 ml PO Q6H PRN PRN Reason: Indigestion / Heartburn Last Admin: 09/14/18 21:08 Dose: 30 ml Albuterol (Ventolin Hfa 90 Mcg/Actuation (8 G)) 1 puff INH RQ4 PRN PRN Reason: Shortness of Breath Last Admin: 09/21/18 06:51 Dose: 1 puff Albuterol/Ipratropium (Duoneb 3 Mg/0.5 Mg (3 Ml) Ud) 3 ml INH RQ6 PRN PRN Reason: Cough and congestion Chlordiazepoxide (Librium) 25 mg PO Q8 PRN PRN Reason: Alcohol Withdrawal Clonidine HCl (Catapres) 0.1 mg PO Q4H PRN PRN Reason: Symptoms of alcohol withdrawl Famotidine (Pepcid) 20 mg PO DAILY [facility] Last Admin: 09/22/18 09:39 Dose: 20 mg Fluticasone/Vilanterol (Breo Ellipta 200-25 Mcg Inh) 1 puff INH RQD [facility] Last Admin: 09/22/18 08:00 Dose: 1 puff Folic Acid (Folic Acid) 1 mg PO DAILY [facility] Last Admin: 09/22/18 09:39 Dose: 1 mg Gabapentin (Neurontin) 300 mg PO BID [facility] Last Admin: 09/22/18 09:39 Dose: 300 mg Guaifenesin/Dextromethorphan (Robitussin Dm) 10 ml PO Q4H PRN PRN Reason: Cough and congestion Last Admin: 09/22/18 09:46 Dose: 10 ml Sodium Chloride (Sodium Chloride 0.9%) 500 mls @ 75 mls/hr IV .Q6H40M [facility] Last Admin: 09/21/18 22:08 Dose: Not Given Meropenem 1 gm/ Sodium (Chloride) 100 mls @ 100 mls/hr IVPB Q8H [facility]; Protocol Last Admin: 09/22/18 09:40 Dose: 100 mls/hr Vancomycin/Sodium Chloride (Vancomycin 1 Gm/Ns 200 Ml) 1 gm in 200 mls @ 133.333 mls/hr IVPB Q12H [facility]; Protocol Stop: 09/26/18 10:31 Last Admin: 09/21/18 21:50 Dose: 133.333 mls/hr Lisinopril (Zestril) 10 mg PO DAILY [facility] Last Admin: 09/22/18 09:39 Dose: 10 mg Mirtazapine (Remeron) 45 mg PO HS [facility] Last Admin: 09/21/18 21:52 Dose: 45 mg Montelukast Sodium (Singulair) 10 mg PO HS [facility] Last Admin: 09/21/18 21:52 Dose: 10 mg Multivitamins (Hexavitamin) 1 tab PO DAILY [facility] Last Admin: 09/22/18 09:39 Dose: 1 tab Nicotine (Nicoderm Cq) 1 patch TD DAILY [facility] Last Admin: 09/22/18 09:47 Dose: 1 patch Sertraline HCl (Zoloft) 100 mg PO DAILY [facility] Last Admin: 09/22/18 09:39 Dose: 100 mg Tamsulosin HCl (Flomax) 0.4 mg PO DAILY [facility] Last Admin: 09/22/18 09:39 Dose: 0.4 mg Thiamine HCl (Vitamin B1 Tab) 100 mg PO DAILY [facility] Last Admin: 09/22/18 09:45 Dose: 100 mg Tiotropium [place] (Spiriva) 18 mcg INH RQ24 [facility] Last Admin: 09/22/18 08:01 Dose: 18 mcg Trazodone HCl (Desyrel) 100 mg PO HS PRN PRN Reason: insomnia Last Admin: 09/20/18 21:11 Dose: 100 mg - Labs Labs: 09/22/18 07:34 09/22/18 07:34 - Constitutional Appears: Non-toxic, No Acute Distress - Head Exam Head Exam: ATRAUMATIC, NORMAL INSPECTION - Eye Exam Eye Exam: EOMI, Normal appearance - ENT Exam ENT Exam: Mucous Membranes Moist Additional comments: Cough with sputum production - Respiratory Exam Respiratory Exam: Wheezes (Diffuse wheezes), NORMAL BREATHING PATTERN. absent: Clear to Ausculation Bilateral, Rales, Rhonchi, Respiratory Distress - Cardiovascular Exam Cardiovascular Exam: RRR, +S1, +S2. absent: Murmur - GI/Abdominal Exam GI & Abdominal Exam: Soft, Normal Bowel Sounds. absent: Tenderness - Extremities Exam Extremities Exam: Normal Inspection. absent: Pedal Edema, Tenderness - Neurological Exam Neurological Exam: Alert, Awake, CN II-XII Intact, Oriented x3 - Psychiatric Exam Psychiatric exam: Normal Affect, Normal Mood - Skin Skin Exam: Dry, Intact, Normal Color, Warm Assessment and Plan - Assessment and Plan (Free Text) Assessment: Plan: HAP Febrile, leukocytosis Transferred from psych to medical floors for further treatment CXR (09/21): stable COPD pattern; no acute interval changes CXR (09/12): Hyperinflation suggestive of COPD. persistent blunting of hemidiaphragm bilaterally consistent with small pleural effusions and/or thickening Started Merrem 1gm IV Q8hr (active since 09/21) Started Vanco 1gm IV Q12h (active since 09/21) ID consulted, Dr. Crowder; help appreciated Vanc trough: f/u Blood cx: No growth at 24 hours Sputum cx: f/u Throat cx: f/u Mycoplasma, s.pneumo, legionella: Negative Influenza A and B: results pending Chest pain Likely pleuritic; patient points to the rib and states it only occurs with co ughing Troponin: neg x2 EKG: f/u COPD exacerbation CXR (09/21): stable COPD pattern; no acute interval changes CXR (09/12): Hyperinflation suggestive of COPD. persistent blunting of hemidiaphragm bilaterally consistent with small pleural effusions and/or thickening Robitussin DM q4h prn Singulair 10mg po HS Duonebs q4h PRN Spiriva 1 inh Q24 Breo ELlipta 1puff daily Solumedrol 20mg IV BID added today, as patient with diffuse wheezes on exam Hypertension Lisinopril 10mg po daily Psychiatric disorder History of polysubstance abuse, depression and anxiety Psychiatry on board- continue management per psych Remeron 45mg PO HS Zoloft 100mg PO daily BPH (benign prostatic hyperplasia) Flomax 0.4mg PO daily Tobacco abuse Nicotine patch Chronic pain Gabapentin 300mg PO BID Prophylactic measure Pepcid 20mg po daily [facility] Tylenol 650mg po q6h prn for fevers Multivitamin 1 tab PO daily Folic Acid 1 tab PO daily Assessment/Plan discussed with Dr. Crystal Connolly, PGY-1 <Suman Rojas H - Last Filed: 09/22/18 12:42> Objective - Vital Signs/Intake and Output Vital Signs (last 24 hours): Temp Pulse Resp BP Pulse Ox 98.0 F 96 H 20 97/59 L 97 09/22/18 08:22 09/22/18 12:00 09/22/18 08:22 09/22/18 08:22 09/22/18 08:22 Intake and Output: 09/22/18 09/22/18 06:59 18:59 Intake Total 1575 Balance 1575 - Medications Medications: Current Medications Acetaminophen (Tylenol 325mg Tab) 650 mg PO Q6 PRN PRN Reason: Pain, moderate (4-7) Last Admin: 09/21/18 06:50 Dose: 650 mg Al Hydrox/Mg Hydrox/Simethicone (Maalox 30 Ml) 30 ml PO Q6H PRN PRN Reason: Indigestion / Heartburn Last Admin: 09/14/18 21:08 Dose: 30 ml Albuterol (Ventolin Hfa 90 Mcg/Actuation (8 G)) 1 puff INH RQ4 PRN PRN Reason: Shortness of Breath Last Admin: 09/21/18 06:51 Dose: 1 puff Albuterol/Ipratropium (Duoneb 3 Mg/0.5 Mg (3 Ml) Ud) 3 ml INH RQ6 PRN PRN Reason: Cough and congestion Chlordiazepoxide (Librium) 25 mg PO Q8 PRN PRN Reason: Alcohol Withdrawal Clonidine HCl (Catapres) 0.1 mg PO Q4H PRN PRN Reason: Symptoms of alcohol withdrawl Famotidine (Pepcid) 20 mg PO DAILY [facility] Last Admin: 09/22/18 09:39 Dose: 20 mg Fluticasone/Vilanterol (Breo Ellipta 200-25 Mcg Inh) 1 puff INH RQD [facility] Last Admin: 09/22/18 08:00 Dose: 1 puff Folic Acid (Folic Acid) 1 mg PO DAILY [facility] Last Admin: 09/22/18 09:39 Dose: 1 mg Gabapentin (Neurontin) 300 mg PO BID [facility] Last Admin: 09/22/18 09:39 Dose: 300 mg Guaifenesin/Dextromethorphan (Robitussin Dm) 10 ml PO Q4H PRN PRN Reason: Cough and congestion Last Admin: 09/22/18 09:46 Dose: 10 ml Sodium Chloride (Sodium Chloride 0.9%) 500 mls @ 75 mls/hr IV .Q6H40M [facility] Last Admin: 09/21/18 22:08 Dose: Not Given Meropenem 1 gm/ Sodium (Chloride) 100 mls @ 100 mls/hr IVPB Q8H [facility]; Protocol Last Admin: 09/22/18 09:40 Dose: 100 mls/hr Vancomycin/Sodium Chloride (Vancomycin 1 Gm/Ns 200 Ml) 1 gm in 200 mls @ 133.333 mls/hr IVPB Q12H [facility]; Protocol Stop: 09/26/18 10:31 Last Admin: 09/22/18 11:14 Dose: 133.333 mls/hr Lisinopril (Zestril) 10 mg PO DAILY [facility] Last Admin: 09/22/18 09:39 Dose: 10 mg Mirtazapine (Remeron) 45 mg PO HS [facility] Last Admin: 09/21/18 21:52 Dose: 45 mg Montelukast Sodium (Singulair) 10 mg PO HS [facility] Last Admin: 09/21/18 21:52 Dose: 10 mg Multivitamins (Hexavitamin) 1 tab PO DAILY [facility] Last Admin: 09/22/18 09:39 Dose: 1 tab Nicotine (Nicoderm Cq) 1 patch TD DAILY [facility] Last Admin: 09/22/18 09:47 Dose: 1 patch Sertraline HCl (Zoloft) 100 mg PO DAILY [facility] Last Admin: 09/22/18 09:39 Dose: 100 mg Tamsulosin HCl (Flomax) 0.4 mg PO DAILY [facility] Last Admin: 09/22/18 09:39 Dose: 0.4 mg Thiamine HCl (Vitamin B1 Tab) 100 mg PO DAILY [facility] Last Admin: 09/22/18 09:45 Dose: 100 mg Tiotropium [place] (Spiriva) 18 mcg INH RQ24 [facility] Last Admin: 09/22/18 08:01 Dose: 18 mcg Trazodone HCl (Desyrel) 100 mg PO HS PRN PRN Reason: insomnia Last Admin: 09/20/18 21:11 Dose: 100 mg - Labs Labs: 09/22/18 07:34 09/22/18 07:34 Attending/Attestation - Attestation I have personally seen and examined this patient.: Yes I have fully participated in the care of the patient.: Yes I have reviewed all pertinent clinical information, including history, physical exam and plan: Yes Notes (Text): 09/22/18 12:41 Medical attending: Patient was seen and examined by me. Agree with the above note by the resident The patient was not in any acute distress when I came and saw. He still has minimal bilateral wheezing on exam and given his history of extensive smoking there maybe an element of COPD as well. From what he tells us, we should also check a flu study if it has not yet been done Also he is Vancomycin as well as Meropenom. Suman Rojas
[2018-09-22] MEDS: Sodium Chloride 0.9% 500 ML IV SCH (19:00)
[2018-09-22] MEDS: Albuterol-Ipratrop 3 mg / 0.5 (3 ml) UD INH PRN (21:18)
[2018-09-23] MEDS: Meropenem 1 GM in Sodium Chloride 0.9% 100 ML IVPB SCH ×2 (02:53→10:30)
[2018-09-23] MEDS: Sodium Chloride 0.9% 500 ML IV SCH ×2 (02:55→09:15)
[2018-09-23] MEDS: guaiFENesin DM 200 mg-20 mg/10 ml UD PO PRN ×4 (03:55→19:26)
[2018-09-23] MEDS: Tiotropium 18 mcg Cap For Inhalation INH SCH (07:45)
[2018-09-23] MEDS: Fluticasone-Vilanterol 200/25mcg Diskus INH SCH (07:45)
[2018-09-23] MEDS: Albuterol-Ipratrop 3 mg / 0.5 (3 ml) UD INH PRN ×3 (07:50→19:40)
[2018-09-23] MEDS ORDERED: MethylPREDNISolone 40 mg Vial IVP STA (07:55)
[2018-09-23 08:18] LABS: BASO % 0.5 % (0.0-2.0); EOS # 0.3 K/uL (0.0-0.7); HEMOGLOBIN 8.3 g/dL (12.0-18.0); LYMPH # 1.5 K/uL (1.0-4.3); LYMPH % 14.4 % (20.0-40.0); MEAN CELL VOLUME 80.3 fL (80.0-94.0); MEAN CORPUSCULAR HEMOGLOBIN 26.1 pg (27.0-31.0); MEAN CORPUSCULAR HGB CONC 32.5 g/dL (33.0-37.0); MEAN PLATELET VOLUME 8.3 fL (7.2-11.7); MONO # 0.6 K/uL (0.0-0.8); MONO % 5.5 % (0.0-10.0); NEUT # 7.8 K/uL (1.8-7.0); NEUT % 76.6 % (50.0-75.0); RBC 3.17 Mil/uL (4.40-5.90); WHITE BLOOD COUNT 10.2 K/uL (4.8-10.8)
[2018-09-23 08:55] LABS: ALB/GLOB RATIO 1.1 (1.0-2.1); ALBUMIN 3.4 g/dL (3.5-5.0); ALT/SGPT 26 U/L (21-72); AST/SGOT 25 U/L (17-59); BLOOD UREA NITROGEN 15 mg/dL (9-20); CALCIUM 8.5 mg/dl (8.6-10.4); GFR NON-AFRICAN AMERICAN > 60
[2018-09-23] MEDS: Multiple Vitamins Tab PO SCH (09:14)
--- NOTE | 2018-09-23 09:53 | CP.PCM.PN ---
Subjective - Date & Time of Evaluation Date of Evaluation: 09/23/18 Time of Evaluation: 09:00 - Subjective Subjective: PGY 3 Medicine progress note for Dr. Gonzalez: Patient seen and examined at bedside. No acute events overnight per nursing. Patient is complaining of cough with associated chest pain and sputum production. He states this has improved from admission. Otherwise patient denies shortness of breath at rest, headaches, nausea, vomiting, diarrhea, dizziness, and fever/chills. Patient has never had colonoscopy/endoscopy and admit to occasional blood specs in the stool. Objective - Vital Signs/Intake and Output Vital Signs (last 24 hours): Temp Pulse Resp BP Pulse Ox 97.4 F L 79 18 113/61 95 09/23/18 07:00 09/23/18 07:55 09/23/18 07:00 09/23/18 07:00 09/23/18 07:00 Intake and Output: 09/23/18 09/23/18 06:59 18:59 Intake Total 450 Balance 450 - Medications Medications: Current Medications Acetaminophen (Tylenol 325mg Tab) 650 mg PO Q6 PRN PRN Reason: Pain, moderate (4-7) Last Admin: 09/23/18 03:59 Dose: 650 mg Al Hydrox/Mg Hydrox/Simethicone (Maalox 30 Ml) 30 ml PO Q6H PRN PRN Reason: Indigestion / Heartburn Last Admin: 09/14/18 21:08 Dose: 30 ml Albuterol (Ventolin Hfa 90 Mcg/Actuation (8 G)) 1 puff INH RQ4 PRN PRN Reason: Shortness of Breath Last Admin: 09/21/18 06:51 Dose: 1 puff Albuterol/Ipratropium (Duoneb 3 Mg/0.5 Mg (3 Ml) Ud) 3 ml INH RQ6 PRN PRN Reason: Cough and congestion Last Admin: 09/23/18 07:50 Dose: 3 ml Chlordiazepoxide (Librium) 25 mg PO Q8 PRN PRN Reason: Alcohol Withdrawal Clonidine HCl (Catapres) 0.1 mg PO Q4H PRN PRN Reason: Symptoms of alcohol withdrawl Famotidine (Pepcid) 20 mg PO DAILY [facility] Last Admin: 09/23/18 09:13 Dose: 20 mg Fluticasone/Vilanterol (Breo Ellipta 200-25 Mcg Inh) 1 puff INH RQD [facility] Last Admin: 09/23/18 07:45 Dose: 1 puff Folic Acid (Folic Acid) 1 mg PO DAILY [facility] Last Admin: 09/23/18 09:13 Dose: 1 mg Gabapentin (Neurontin) 300 mg PO BID [facility] Last Admin: 09/23/18 09:13 Dose: 300 mg Guaifenesin/Dextromethorphan (Robitussin Dm) 10 ml PO Q4H PRN PRN Reason: Cough and congestion Last Admin: 09/23/18 09:14 Dose: 10 ml Sodium Chloride (Sodium Chloride 0.9%) 500 mls @ 75 mls/hr IV .Q6H40M [facility] Last Admin: 09/23/18 09:15 Dose: Not Given Meropenem 1 gm/ Sodium (Chloride) 100 mls @ 100 mls/hr IVPB Q8H [facility]; Protocol Last Admin: 09/23/18 02:53 Dose: 100 mls/hr Vancomycin/Sodium Chloride (Vancomycin 1 Gm/Ns 200 Ml) 1 gm in 200 mls @ 133.333 mls/hr IVPB Q12H [facility]; Protocol Stop: 09/26/18 10:31 Last Admin: 09/22/18 22:31 Dose: 133.333 mls/hr Lisinopril (Zestril) 10 mg PO DAILY [facility] Last Admin: 09/23/18 09:13 Dose: 10 mg Mirtazapine (Remeron) 45 mg PO HS [facility] Last Admin: 09/22/18 22:30 Dose: 45 mg Montelukast Sodium (Singulair) 10 mg PO HS [facility] Last Admin: 09/22/18 22:30 Dose: 10 mg Multivitamins (Hexavitamin) 1 tab PO DAILY [facility] Last Admin: 09/23/18 09:14 Dose: 1 tab Nicotine (Nicoderm Cq) 1 patch TD DAILY [facility] Last Admin: 09/23/18 09:14 Dose: 1 patch Sertraline HCl (Zoloft) 100 mg PO DAILY [facility] Last Admin: 09/23/18 09:14 Dose: 100 mg Tamsulosin HCl (Flomax) 0.4 mg PO DAILY [facility] Last Admin: 09/23/18 09:13 Dose: 0.4 mg Thiamine HCl (Vitamin B1 Tab) 100 mg PO DAILY [facility] Last Admin: 09/23/18 09:18 Dose: 100 mg Tiotropium [place] (Spiriva) 18 mcg INH RQ24 [facility] Last Admin: 09/23/18 07:45 Dose: 18 mcg Trazodone HCl (Desyrel) 100 mg PO HS PRN PRN Reason: insomnia Last Admin: 09/20/18 21:11 Dose: 100 mg - Labs Labs: 09/23/18 08:09 09/23/18 08:09 - Constitutional Appears: Non-toxic, No Acute Distress, Chronically Ill - Head Exam Head Exam: NORMAL INSPECTION - Eye Exam Eye Exam: EOMI Pupil Exam: NORMAL ACCOMODATION - ENT Exam ENT Exam: Mucous Membranes Moist - Respiratory Exam Respiratory Exam: Decreased Breath Sounds, Wheezes, NORMAL BREATHING PATTERN. absent: Accessory Muscle Use, Respiratory Distress - Cardiovascular Exam Cardiovascular Exam: REGULAR RHYTHM, +S1, +S2 - GI/Abdominal Exam GI & Abdominal Exam: Soft, Normal Bowel Sounds. absent: Distended, Firm, Guarding, Tenderness - Extremities Exam Extremities Exam: Normal Inspection - Back Exam Back Exam: NORMAL INSPECTION - Neurological Exam Neurological Exam: Alert, Awake, CN II-XII Intact, Normal Gait, Oriented x3 Neuro motor strength exam: Left Upper Extremity: 5, Right Upper Extremity: 5, Left Lower Extremity: 5, Right Lower Extremity: 5 - Psychiatric Exam Psychiatric exam: Normal Affect, Normal Mood - Skin Skin Exam: Normal Color Assessment and Plan - Assessment and Plan (Free Text) Assessment: COPD exacerbation CXR (09/21): stable COPD pattern; no acute interval changes CXR (09/12): Hyperinflation suggestive of COPD. persistent blunting of hemidiaphragm bilaterally consistent with small pleural effusions and/or thicke abimael Robitussin DM q4h prn Singulair 10mg po HS Duonebs q4h PRN Spiriva 1 inh Q24 Breo ELlipta 1puff daily Solumedrol 40mg IVP BID Anemia Hbg 8.3 MCV 80 f/u Fe, TIBC, ferritin, B12, folate, retic count, Stool occult x2 Consider GI consult for colonoscopy HAP Afebrile x 24 hours, leukocytosis resolved Transferred from [facility] to medical floors for further treatment CXR (09/21): stable COPD pattern; no acute interval changes CXR (09/12): Hyperinflation suggestive of COPD. persistent blunting of hemidiaphragm bilaterally consistent with small pleural effusions and/or thickening Started Merrem 1gm IV Q8hr (active since 09/21) - discontinued Started Vanco 1gm IV Q12h (active since 09/21) - discontinued ID consulted, Dr. Crowder; help appreciated Blood cx: No growth at 24 hours Sputum cx: f/u Throat cx: f/u Mycoplasma, s.pneumo, legionella: Negative Influenza A and B: negative Chest pain Resolved Likely pleuritic; patient points to the rib and states it only occurs with coughing Troponin: neg x2 Hypertension Lisinopril 10mg po daily Controlled Psychiatric disorder History of polysubstance abuse, depression and anxiety Psychiatry on board- continue management per psych Remeron 45mg PO HS Zoloft 100mg PO daily BPH (benign prostatic hyperplasia) Flomax 0.4mg PO daily Tobacco use disorder Nicotine patch Chronic pain Gabapentin 300mg PO BID Prophylactic measure Pepcid 20mg PO daily SCD[facility], Patient ambulates frequently Low sodium, heart healthy diet Ensure supplements Florastor 250mg PO BID Neetu Molina DO PGY 3 *All management and orders per Dr. Gonzalez
[2018-09-23] MEDS: Saccharomyces Boulardi 250 mg Cap PO SCH ×2 (11:12→17:35)
[2018-09-23] MEDS: Vancomycin 1 gm/NS 200 ml 1 GM/200 ML BAG IVPB SCH (11:13)
[2018-09-23 12:24] LABS: IRON 14 ug/dL (49-181)
[2018-09-23 12:34] LABS: % IRON SATURATION 5 (20-55); TOTAL IRON BINDING CAPACITY 312 ug/dL (250-450)
[2018-09-23 16:23] VITALS: RESP 20
[2018-09-24] MEDS: Tiotropium 18 mcg Cap For Inhalation INH SCH (07:40)
[2018-09-24] MEDS: Fluticasone-Vilanterol 200/25mcg Diskus INH SCH (07:40)
[2018-09-24] MEDS: Albuterol-Ipratrop 3 mg / 0.5 (3 ml) UD INH PRN (07:42)
--- NOTE | 2018-09-24 07:57 | CP.PCM.PN ---
Addendum entered and electronically signed by Foreign Mota DO 09/24/18 13:49: Dispo: Plan to DC patient tomorrow morning. Original Note: Subjective - Date & Time of Evaluation Date of Evaluation: 09/24/18 Time of Evaluation: 14:00 - Subjective Subjective: Patient seen and examined at bedside. He reports cough with chest pain during coughing. He denies any fever, chest pain at rest, n/v/d, constipation or any urinary symptoms. Objective - Vital Signs/Intake and Output Vital Signs (last 24 hours): Temp Pulse Resp BP Pulse Ox 98.1 F 101 H 20 108/66 96 09/23/18 23:15 09/24/18 01:00 09/23/18 23:15 09/23/18 23:15 09/23/18 23:15 Intake and Output: 09/24/18 09/24/18 06:59 18:59 Intake Total 525 Balance 525 - Medications Medications: Current Medications Acetaminophen (Tylenol 325mg Tab) 650 mg PO Q6 PRN PRN Reason: Pain, moderate (4-7) Last Admin: 09/23/18 22:13 Dose: 650 mg Al Hydrox/Mg Hydrox/Simethicone (Maalox 30 Ml) 30 ml PO Q6H PRN PRN Reason: Indigestion / Heartburn Last Admin: 09/14/18 21:08 Dose: 30 ml Albuterol (Ventolin Hfa 90 Mcg/Actuation (8 G)) 1 puff INH RQ4 PRN PRN Reason: Shortness of Breath Last Admin: 09/21/18 06:51 Dose: 1 puff Albuterol/Ipratropium (Duoneb 3 Mg/0.5 Mg (3 Ml) Ud) 3 ml INH RQ6 PRN PRN Reason: Cough and congestion Last Admin: 09/23/18 19:40 Dose: 3 ml Chlordiazepoxide (Librium) 25 mg PO Q8 PRN PRN Reason: Alcohol Withdrawal Clonidine HCl (Catapres) 0.1 mg PO Q4H PRN PRN Reason: Symptoms of alcohol withdrawl Famotidine (Pepcid) 20 mg PO DAILY [facility] Last Admin: 09/23/18 09:13 Dose: 20 mg Fluticasone/Vilanterol (Breo Ellipta 200-25 Mcg Inh) 1 puff INH RQD [facility] Last Admin: 09/23/18 07:45 Dose: 1 puff Folic Acid (Folic Acid) 1 mg PO DAILY [facility] Last Admin: 09/23/18 09:13 Dose: 1 mg Gabapentin (Neurontin) 300 mg PO BID [facility] Last Admin: 09/23/18 17:30 Dose: 300 mg Guaifenesin/Dextromethorphan (Robitussin Dm) 10 ml PO Q4H PRN PRN Reason: Cough and congestion Last Admin: 09/23/18 19:26 Dose: 10 ml Lisinopril (Zestril) 10 mg PO DAILY [facility] Last Admin: 09/23/18 09:13 Dose: 10 mg Mirtazapine (Remeron) 45 mg PO HS [facility] Last Admin: 09/23/18 22:09 Dose: 45 mg Montelukast Sodium (Singulair) 10 mg PO HS [facility] Last Admin: 09/23/18 22:09 Dose: 10 mg Multivitamins (Hexavitamin) 1 tab PO DAILY [facility] Last Admin: 09/23/18 09:14 Dose: 1 tab Nicotine (Nicoderm Cq) 1 patch TD DAILY [facility] Last Admin: 09/23/18 09:14 Dose: 1 patch Saccharomyces Boulardii (Florastor) 250 mg PO BID [facility] Last Admin: 09/23/18 17:35 Dose: 250 mg Sertraline HCl (Zoloft) 100 mg PO DAILY [facility] Last Admin: 09/23/18 09:14 Dose: 100 mg Tamsulosin HCl (Flomax) 0.4 mg PO DAILY [facility] Last Admin: 09/23/18 09:13 Dose: 0.4 mg Thiamine HCl (Vitamin B1 Tab) 100 mg PO DAILY [facility] Last Admin: 09/23/18 09:18 Dose: 100 mg Tiotropium [place] (Spiriva) 18 mcg INH RQ24 [facility] Last Admin: 09/23/18 07:45 Dose: 18 mcg Trazodone HCl (Desyrel) 100 mg PO HS PRN PRN Reason: insomnia Last Admin: 09/20/18 21:11 Dose: 100 mg - Labs Labs: 09/23/18 08:09 09/23/18 08:09 - Additional Findings Additional findings: - Constitutional Appears: Non-toxic, No Acute Distress, Chronically Ill - Head Exam Head Exam: NORMAL INSPECTION - Eye Exam Eye Exam: EOMI Pupil Exam: NORMAL ACCOMODATION - ENT Exam ENT Exam: Mucous Membranes Moist - Respiratory Exam Respiratory Exam: Decreased Breath Sounds, Wheezes, Rhonchi, NORMAL BREATHING PATTERN. absent: Accessory Muscle Use, Respiratory Distress - Cardiovascular Exam Cardiovascular Exam: REGULAR RHYTHM, +S1, +S2 - GI/Abdominal Exam GI & Abdominal Exam: Soft, Normal Bowel Sounds. absent: Distended, Firm, Guarding, Tenderness - Extremities Exam Extremities Exam: +1 Pedal Edema. - Back Exam Back Exam: NORMAL INSPECTION - Neurological Exam Neurological Exam: Alert, Awake, CN II-XII Intact, Normal Gait, Oriented x3 Neuro motor strength exam: Left Upper Extremity: 5, Right Upper Extremity: 5, Left Lower Extremity: 5, Right Lower Extremity: 5 - Psychiatric Exam Psychiatric exam: Normal Affect, Normal Mood - Skin Skin Exam: Normal Color Assessment and Plan - Assessment and Plan (Free Text) Assessment: COPD exacerbation CXR (09/21): stable COPD pattern; no acute interval changes CXR (09/12): Hyperinflation suggestive of COPD. persistent blunting of hemidiaphragm bilaterally consistent with small pleural effusions and/or thickening Robitussin DM q4h prn Singulair 10mg po HS Duonebs q4h PRN Spiriva 1 inh Q24 Breo ELlipta 1puff daily Solumedrol 40mg IVP BID Iron Def. Anemia Hbg 8.3 MCV 80 Low Iron and Low Retic Count noted. Patient will need outpatient colonoscopy. HAP (Resolved) Afebrile x 24 hours, leukocytosis resolved Transferred from psych to medical floors for further treatment CXR (09/21): stable COPD pattern; no acute interval changes CXR (09/12): Hyperinflation suggestive of COPD. persistent blunting of hemidi aphragm bilaterally consistent with small pleural effusions and/or thickening Started Merrem 1gm IV Q8hr (active since 09/21) - discontinued Started Vanco 1gm IV Q12h (active since 09/21) - discontinued ID consulted, Dr. Crowder; help appreciated Blood cx: No growth at 24 hours Sputum cx: NEGATIVE Throat cx: NEGATIVE. Mycoplasma, s.pneumo, legionella: Negative Influenza A and B: negative Chest pain Resolved Likely pleuritic; patient points to the rib and states it only occurs with coughing Troponin: neg x2 Hypertension Lisinopril 10mg po daily Controlled Psychiatric disorder History of polysubstance abuse, depression and anxiety Psychiatry on board- continue management per psych Remeron 45mg PO HS Zoloft 100mg PO daily BPH (benign prostatic hyperplasia) Flomax 0.4mg PO daily Tobacco use disorder Nicotine patch Chronic pain Gabapentin 300mg PO BID Prophylactic measure Pepcid 20mg PO daily SCDs, Patient ambulates frequently Low sodium, heart healthy diet Ensure supplements Florastor 250mg PO BID Patient seen and discussed with Attending. Foreign Mota, PGY-2
[2018-09-24] MEDS: guaiFENesin DM 200 mg-20 mg/10 ml UD PO PRN ×4 (08:00→23:13)
[2018-09-24 08:25] LABS: BASO # 0.1 K/uL (0.0-0.2); BASO % 0.5 % (0.0-2.0); EOS # 0.3 K/uL (0.0-0.7); EOS % 3.4 % (0.0-4.0); HEMOGLOBIN 8.2 g/dL (12.0-18.0); LYMPH # 1.6 K/uL (1.0-4.3); LYMPH % 15.8 % (20.0-40.0); MEAN CORPUSCULAR HEMOGLOBIN 26.2 pg (27.0-31.0); MEAN CORPUSCULAR HGB CONC 32.3 g/dL (33.0-37.0); MEAN PLATELET VOLUME 8.3 fL (7.2-11.7); MONO # 0.6 K/uL (0.0-0.8); MONO % 6.2 % (0.0-10.0); NEUT # 7.6 K/uL (1.8-7.0); NEUT % 74.1 % (50.0-75.0); RBC 3.12 Mil/uL (4.40-5.90); RED CELL DISTRIBUTION WIDTH 23.2 % (11.5-14.5); WHITE BLOOD COUNT 10.3 K/uL (4.8-10.8)
[2018-09-24 08:52] LABS: ALBUMIN 3.2 g/dL (3.5-5.0); ALT/SGPT 44 U/L (21-72); AST/SGOT 43 U/L (17-59); BLOOD UREA NITROGEN 15 mg/dL (9-20); GFR NON-AFRICAN AMERICAN > 60
[2018-09-24] MEDS: Multiple Vitamins Tab PO SCH (10:10)
[2018-09-24] MEDS: Saccharomyces Boulardi 250 mg Cap PO SCH ×2 (10:10→17:39)
[2018-09-24] MEDS ORDERED: guaiFENesin DM 200 mg-20 mg/10 ml UD PO STA (11:53)
[2018-09-24] MEDS: Aluminum Hydroxide/Magnesium Hydroxide Susp (30 mL) PO PRN (13:01)
[2018-09-24] MEDS ORDERED: Ferric Sodium Gluconat Complex 62.5 mg/5 ml Vial IVPB SCH (14:00)
[2018-09-24] MEDS ORDERED: Ferric Sodium Gluconat Complex 125 MG in Sodium Chloride 0.9% 100 ML IVPB SCH (14:30)
[2018-09-24] MEDS ORDERED: Albuterol-Ipratrop 3 mg / 0.5 (3 ml) UD INH STA (16:37)
--- NOTE | 2018-09-24 17:38 | CP.PCM.PN ---
Subjective - Date & Time of Evaluation Date of Evaluation: 09/24/18 Time of Evaluation: 08:00 - Subjective Subjective: less cough no fever less SOB Objective - Vital Signs/Intake and Output Vital Signs (last 24 hours): Temp Pulse Resp BP Pulse Ox 97.4 F L 100 H 20 123/77 94 L 09/24/18 08:17 09/24/18 08:17 09/24/18 08:17 09/24/18 08:17 09/24/18 08:17 Intake and Output: 09/24/18 09/24/18 06:59 18:59 Intake Total 525 300 Balance 525 300 - Medications Medications: Current Medications Acetaminophen (Tylenol 325mg Tab) 650 mg PO Q6 PRN PRN Reason: Pain, moderate (4-7) Last Admin: 09/24/18 16:09 Dose: 650 mg Al Hydrox/Mg Hydrox/Simethicone (Maalox 30 Ml) 30 ml PO Q6H PRN PRN Reason: Indigestion / Heartburn Last Admin: 09/24/18 13:01 Dose: 30 ml Albuterol (Ventolin Hfa 90 Mcg/Actuation (8 G)) 1 puff INH RQ4 PRN PRN Reason: Shortness of Breath Last Admin: 09/21/18 06:51 Dose: 1 puff Albuterol/Ipratropium (Duoneb 3 Mg/0.5 Mg (3 Ml) Ud) 3 ml INH RQ4 FERNANDA Chlordiazepoxide (Librium) 25 mg PO Q8 PRN PRN Reason: Alcohol Withdrawal Clonidine HCl (Catapres) 0.1 mg PO Q4H PRN PRN Reason: Symptoms of alcohol withdrawl Famotidine (Pepcid) 20 mg PO DAILY [facility] Last Admin: 09/24/18 10:10 Dose: 20 mg Fluticasone/Vilanterol (Breo Ellipta 200-25 Mcg Inh) 1 puff INH RQD [facility] Last Admin: 09/24/18 07:40 Dose: 1 puff Folic Acid (Folic Acid) 1 mg PO DAILY [facility] Last Admin: 09/24/18 10:10 Dose: 1 mg Gabapentin (Neurontin) 300 mg PO BID [facility] Last Admin: 09/24/18 10:10 Dose: 300 mg Guaifenesin/Dextromethorphan (Robitussin Dm) 10 ml PO Q4H PRN PRN Reason: Cough and congestion Last Admin: 09/24/18 13:25 Dose: 10 ml Ferric Sodium Gluconate Complex 125 mg/ Sodium Chloride 110 mls @ 110 mls/hr IVPB Q24H [facility] Stop: 10/02/18 14:31 Last Admin: 09/24/18 15:44 Dose: 110 mls/hr Lisinopril (Zestril) 10 mg PO DAILY [facility] Last Admin: 09/24/18 10:10 Dose: 10 mg Mirtazapine (Remeron) 45 mg PO HS [facility] Last Admin: 09/23/18 22:09 Dose: 45 mg Montelukast Sodium (Singulair) 10 mg PO HS [facility] Last Admin: 09/23/18 22:09 Dose: 10 mg Multivitamins (Hexavitamin) 1 tab PO DAILY [facility] Last Admin: 09/24/18 10:10 Dose: 1 tab Nicotine (Nicoderm Cq) 1 patch TD DAILY [facility] Last Admin: 09/24/18 10:10 Dose: 1 patch Saccharomyces Boulardii (Florastor) 250 mg PO BID [facility] Last Admin: 09/24/18 10:10 Dose: 250 mg Sertraline HCl (Zoloft) 100 mg PO DAILY [facility] Last Admin: 09/24/18 10:10 Dose: 100 mg Tamsulosin HCl (Flomax) 0.4 mg PO DAILY [facility] Last Admin: 09/24/18 10:10 Dose: 0.4 mg Thiamine HCl (Vitamin B1 Tab) 100 mg PO DAILY [facility] Last Admin: 09/24/18 10:10 Dose: 100 mg Tiotropium [place] (Spiriva) 18 mcg INH RQ24 [facility] Last Admin: 09/24/18 07:40 Dose: 18 mcg Trazodone HCl (Desyrel) 100 mg PO HS PRN PRN Reason: insomnia Last Admin: 09/20/18 21:11 Dose: 100 mg - Labs Labs: 09/24/18 08:11 09/24/18 08:11 - Constitutional Appears: Non-toxic, Chronically Ill - Head Exam Head Exam: NORMOCEPHALIC - Eye Exam Eye Exam: PERRL - ENT Exam ENT Exam: Mucous Membranes Dry - Neck Exam Neck Exam: absent: Lymphadenopathy - Respiratory Exam Respiratory Exam: Decreased Breath Sounds, Prolonged Expiratory Phase, Rhonchi - Cardiovascular Exam Cardiovascular Exam: REGULAR RHYTHM - GI/Abdominal Exam GI & Abdominal Exam: Distended, Soft - Rectal Exam Rectal Exam: Deferred - Exam Exam: NORMAL INSPECTION - Extremities Exam Extremities Exam: absent: Pedal Edema - Back Exam Back Exam: absent: CVA tenderness (L), CVA tenderness (R) - Neurological Exam Neurological Exam: Alert, Awake, Oriented x3 - Psychiatric Exam Psychiatric exam: Depressed - Skin Skin Exam: Dry Assessment and Plan (1) Alcohol dependence Status: Acute (2) BPH (benign prostatic hyperplasia) Status: Acute (3) Bronchitis Status: Acute (4) COPD (chronic obstructive pulmonary disease) Status: Acute (5) Depression Status: Chronic (6) H/O [place] II operation Status: Chronic (7) Tobacco use disorder Status: Chronic - Assessment and Plan (Free Text) Assessment: cont rx as out pt
[2018-09-24] MEDS: Albuterol-Ipratrop 3 mg / 0.5 (3 ml) UD INH SCH ×2 (19:41→23:42)
[2018-09-25] MEDS: Albuterol-Ipratrop 3 mg / 0.5 (3 ml) UD INH SCH ×3 (03:12→12:00)
[2018-09-25] MEDS: guaiFENesin DM 200 mg-20 mg/10 ml UD PO PRN ×2 (05:05→10:23)
--- NOTE | 2018-09-25 06:52 | CP.PCM.PN ---
Subjective - Date & Time of Evaluation Date of Evaluation: 09/25/18 Time of Evaluation: 06:52 - Subjective Subjective: PGY2- progress note for Dr. Gonzalez Patient was seen and examined at bedside in no acute distress. Patient reports feeling better and has no complaints today. He says his cough has improved, no longer short of breath or wheezing. Patient denies fevers, nausea, vomiting, headaches, abdominal pain, diarrhea, constipation, chest pain, palpitations. Objective - Vital Signs/Intake and Output Vital Signs (last 24 hours): Temp Pulse Resp BP Pulse Ox 98 F 93 H 20 113/63 95 09/24/18 23:10 09/25/18 01:00 09/24/18 23:10 09/24/18 23:10 09/24/18 23:10 Intake and Output: 09/24/18 09/25/18 18:59 06:59 Intake Total 300 500 Balance 300 500 - Medications Medications: Current Medications Acetaminophen (Tylenol 325mg Tab) 650 mg PO Q6 PRN PRN Reason: Pain, moderate (4-7) Last Admin: 09/25/18 05:04 Dose: 650 mg Al Hydrox/Mg Hydrox/Simethicone (Maalox 30 Ml) 30 ml PO Q6H PRN PRN Reason: Indigestion / Heartburn Last Admin: 09/24/18 13:01 Dose: 30 ml Albuterol (Ventolin Hfa 90 Mcg/Actuation (8 G)) 1 puff INH RQ4 PRN PRN Reason: Shortness of Breath Last Admin: 09/21/18 06:51 Dose: 1 puff Albuterol/Ipratropium (Duoneb 3 Mg/0.5 Mg (3 Ml) Ud) 3 ml INH RQ4 FERNANDA Last Admin: 09/25/18 03:12 Dose: 3 ml Chlordiazepoxide (Librium) 25 mg PO Q8 PRN PRN Reason: Alcohol Withdrawal Clonidine HCl (Catapres) 0.1 mg PO Q4H PRN PRN Reason: Symptoms of alcohol withdrawl Famotidine (Pepcid) 20 mg PO DAILY [facility] Last Admin: 09/24/18 10:10 Dose: 20 mg Fluticasone/Vilanterol (Breo Ellipta 200-25 Mcg Inh) 1 puff INH RQD [facility] Last Admin: 09/24/18 07:40 Dose: 1 puff Folic Acid (Folic Acid) 1 mg PO DAILY [facility] Last Admin: 09/24/18 10:10 Dose: 1 mg Gabapentin (Neurontin) 300 mg PO BID [facility] Last Admin: 09/24/18 17:39 Dose: 300 mg Guaifenesin/Dextromethorphan (Robitussin Dm) 10 ml PO Q4H PRN PRN Reason: Cough and congestion Last Admin: 09/25/18 05:05 Dose: 10 ml Ferric Sodium Gluconate Complex 125 mg/ Sodium Chloride 110 mls @ 110 mls/hr IVPB Q24H [facility] Stop: 10/02/18 14:31 Last Admin: 09/24/18 15:44 Dose: 110 mls/hr Lisinopril (Zestril) 10 mg PO DAILY [facility] Last Admin: 09/24/18 10:10 Dose: 10 mg Mirtazapine (Remeron) 45 mg PO HS [facility] Last Admin: 09/24/18 23:01 Dose: 45 mg Montelukast Sodium (Singulair) 10 mg PO HS [facility] Last Admin: 09/24/18 23:01 Dose: 10 mg Multivitamins (Hexavitamin) 1 tab PO DAILY [facility] Last Admin: 09/24/18 10:10 Dose: 1 tab Nicotine (Nicoderm Cq) 1 patch TD DAILY [facility] Last Admin: 09/24/18 10:10 Dose: 1 patch Saccharomyces Boulardii (Florastor) 250 mg PO BID [facility] Last Admin: 09/24/18 17:39 Dose: 250 mg Sertraline HCl (Zoloft) 100 mg PO DAILY [facility] Last Admin: 09/24/18 10:10 Dose: 100 mg Tamsulosin HCl (Flomax) 0.4 mg PO DAILY [facility] Last Admin: 09/24/18 10:10 Dose: 0.4 mg Thiamine HCl (Vitamin B1 Tab) 100 mg PO DAILY [facility] Last Admin: 09/24/18 10:10 Dose: 100 mg Tiotropium [place] (Spiriva) 18 mcg INH RQ24 [facility] Last Admin: 09/24/18 07:40 Dose: 18 mcg Trazodone HCl (Desyrel) 100 mg PO HS PRN PRN Reason: insomnia Last Admin: 09/20/18 21:11 Dose: 100 mg - Labs Labs: 09/24/18 08:11 09/24/18 08:11 - Constitutional Appears: No Acute Distress - Head Exam Head Exam: NORMAL INSPECTION - Eye Exam Eye Exam: EOMI, Normal appearance - ENT Exam ENT Exam: Mucous Membranes Moist - Respiratory Exam Respiratory Exam: Decreased Breath Sounds, NORMAL BREATHING PATTERN. absent: Rhonchi, Wheezes, Respiratory Distress - Cardiovascular Exam Cardiovascular Exam: REGULAR RHYTHM, +S1, +S2 - GI/Abdominal Exam GI & Abdominal Exam: Distended, Soft, Normal Bowel Sounds. absent: Firm, Guarding, Tenderness - Extremities Exam Extremities Exam: Normal Inspection. absent: Calf Tenderness, Pedal Edema, Tenderness - Neurological Exam Neurological Exam: Alert, Awake, Oriented x3 - Psychiatric Exam Psychiatric exam: Normal Affect, Normal Mood - Skin Skin Exam: Dry, Intact, Normal Color, Warm Assessment and Plan - Assessment and Plan (Free Text) Plan: COPD exacerbation CXR (09/21): stable COPD pattern; no acute interval changes CXR (09/12): Hyperinflation suggestive of COPD. persistent blunting of hemidiaphragm bilaterally consistent with small pleural effusions and/or thickening Robitussin DM q4h prn Singulair 10mg po HS Duonebs q4h PRN Spiriva 1 inh Q24 Breo ELlipta 1puff daily Solumedrol 40mg IVP BID HAP (Resolved) Afebrile x 24 hours, leukocytosis resolved Transferred from psych to medical floors for further treatment CXR (09/21): stable COPD pattern; no acute interval changes CXR (09/12): Hyperinflation suggestive of COPD. persistent blunting of hemidiaphragm bilaterally consistent with small pleural effusions and/or thickening Started Merrem 1gm IV Q8hr (active since 09/21) - discontinued Started Vanco 1gm IV Q12h (active since 09/21) - discontinued ID consulted, Dr. Crowder; help appreciated Blood cx: No growth at 24 hours Sputum cx: NEGATIVE Throat cx: NEGATIVE. Mycoplasma, s.pneumo, legionella: Negative Influenza A and B: negative Iron Def. Anemia Hbg 8.3 MCV 80 Low Iron and Low Retic Count noted. Patient will need outpatient colonoscopy. Chest pain Resolved Likely pleuritic; patient points to the rib and states it only occurs with coughing Troponin: neg x2 Hypertension Lisinopril 10mg po daily Controlled Psychiatric disorder History of polysubstance abuse, depression and anxiety Psychiatry on board- continue management per psych Remeron 45mg PO HS Zoloft 100mg PO daily BPH (benign prostatic hyperplasia) Flomax 0.4mg PO daily Tobacco use disorder Nicotine patch Chronic pain Gabapentin 300mg PO BID Prophylactic measure Pepcid 20mg PO daily SCDs, Patient ambulates frequently Low sodium, heart healthy diet Ensure supplements Florastor 250mg PO BID Patient is stable for discharge to home per Dr. Gonzalez. Patient must continue home medications (patient already has medications). Patient must take the following new medications as prescribed [sent electronically to preferred pharmacy]: 1. Medrol dose pack- take as directed 2. Mucinex 600mg PO Q12h- take 1 tablet by mouth every 12 hours as needed for cough/congestion Patient must follow up with PMD, Dr. Gonzalez, within 1 week of discharge. If symptoms worsen or reoccur, patient should return to nearest ED.
[2018-09-25] MEDS: Tiotropium 18 mcg Cap For Inhalation INH SCH (07:25)
[2018-09-25] MEDS: Fluticasone-Vilanterol 200/25mcg Diskus INH SCH (07:25)
[2018-09-25 07:47] LABS: BASO % 0.6 % (0.0-2.0); EOS # 0.6 K/uL (0.0-0.7); EOS % 8.1 % (0.0-4.0); HEMOGLOBIN 7.4 g/dL (12.0-18.0); LYMPH # 1.4 K/uL (1.0-4.3); LYMPH % 19.6 % (20.0-40.0); MEAN CELL VOLUME 80.4 fL (80.0-94.0); MEAN CORPUSCULAR HEMOGLOBIN 26.3 pg (27.0-31.0); MEAN CORPUSCULAR HGB CONC 32.7 g/dL (33.0-37.0); MONO # 0.6 K/uL (0.0-0.8); MONO % 8.8 % (0.0-10.0); NEUT # 4.6 K/uL (1.8-7.0); NEUT % 62.9 % (50.0-75.0); NRBC % 0.2 % (0.0-2.0); RBC 2.81 Mil/uL (4.40-5.90); RED CELL DISTRIBUTION WIDTH 22.9 % (11.5-14.5); WHITE BLOOD COUNT 7.3 K/uL (4.8-10.8)
[2018-09-25 07:55] VITALS: PULSE 90
[2018-09-25 08:15] VITALS: BP 146/75; TEMP 97.8; O2SAT 96
[2018-09-25 08:52] LABS: ALBUMIN 2.8 g/dL (3.5-5.0); ALT/SGPT 46 U/L (21-72); AST/SGOT 27 U/L (17-59); BLOOD UREA NITROGEN 13 mg/dL (9-20); CALCIUM 8.5 mg/dl (8.6-10.4); GFR NON-AFRICAN AMERICAN > 60
[2018-09-25] MEDS: Multiple Vitamins Tab PO SCH (10:22)
[2018-09-25] MEDS: Saccharomyces Boulardi 250 mg Cap PO SCH (10:30)
== END 2018-09-25 13:53 | disposition home or self-care (01) | DRG 750 ==
LOC: C.ER 17:42 → C.5E 22:53 → C.6T 09-21 11:03
PROVIDERS: ADMIT Internal Medicine Pulmonary Disease; ATTEND Internal Medicine Pulmonary Disease
PROC: HZ2ZZZZ Detoxification Services for Substance Abuse Treatment (ICD-10-PCS; principal; 2018-09-12)
DX: F10.230 Alcohol dependence with withdrawal, uncomplicated (principal); J18.9 Pneumonia, unspecified organism; F33.2 Major depressive disorder, recurrent severe without psychotic features; J44.1 Chronic obstructive pulmonary disease with (acute) exacerbation; J44.0 Chronic obstructive pulmonary disease with (acute) lower respiratory infection; F14.20 Cocaine dependence, uncomplicated; E61.1 Iron deficiency; Y90.0 Blood alcohol level of less than 20 mg/100 ml; J20.9 Acute bronchitis, unspecified; F41.9 Anxiety disorder, unspecified; I10 Essential (primary) hypertension; F17.210 Nicotine dependence, cigarettes, uncomplicated; N40.0 Benign prostatic hyperplasia without lower urinary tract symptoms; Z91.19 Patient's noncompliance with other medical treatment and regimen; Z59.0 Homelessness; G89.29 Other chronic pain

== ENCOUNTER 2018-10-21 22:10 | Emergency (ER) | payer MEDICAID ==
[2018-10-21 22:10] VITALS: BMI 18.8
[2018-10-21] MEDS ORDERED: Albuterol-Ipratrop 3 mg / 0.5 (3 ml) UD INH STA (22:50)
--- NOTE | 2018-10-21 22:56 | C.PDOC ---
History Of Present Illness 58 year old male with a Hx of COPD presents to the ER with a complaint of SOB associated with a cough productive of yellow sputum. Denies fever or vomiting. Chief Complaint (Nursing): Shortness Of Breath History Per: Patient History/Exam Limitations: no limitations Onset/Duration Of Symptoms: Hrs Current Symptoms Are (Timing): Still Present Current Respiratory Medications: See Home Med List Associated Symptoms: Productive Cough. denies: Fever, Chills Recent travel outside of the [place]: No Past Medical History Reviewed: Historical Data, Nursing Documentation, Vital Signs Vital Signs: Last Vital Signs Temp 98 F 10/21/18 22:24 Pulse 112 H 10/21/18 22:24 Resp 20 10/21/18 22:24 BP 134/86 10/21/18 22:24 Pulse Ox 95 10/21/18 22:24 - Medical History PMH: Anxiety, Asthma, Bronchitis, COPD, Depression, Gastrointestinal Ulcer, HTN, Pneumonia Denies: Chronic Kidney Disease Surgical History: Appendectomy, Tonsillectomy - [facility] Procedures CONTR ABD ARTERIOGRM NEC (05/20/07) DETOXIFICATION SERVICES FOR SUBSTANCE ABUSE TREATMENT (09/12/18) ESOPHAGOGASTRODUODENOSCOPY [EGD] W/CLOSED BIOPSY (05/20/07) EXCISION OF LOWER ESOPHAGUS, ENDO, DIAGN (05/21/17) EXTIRPATION OF MATTER FROM LOWER ESOPHAGUS, ENDO (05/21/17) GROUP SCRUB TECH FOR SUBSTANCE ABUSE TREATMENT, PSYCHOEDUCATION (05/05/18) GROUP SCRUB TECH FOR SUBSTANCE ABUSE, COGNITIVE BEHAVIORAL (05/05/18) GROUP PSYCHOTHERAPY (07/14/18) INDIV SCRUB TECH FOR SUBSTANCE ABUSE TREATMENT, PSYCHOEDUCATION (01/14/17) INDIV SCRUB TECH FOR SUBSTANCE ABUSE, COGNITIVE BEHAVIORAL (01/14/17) INDIV PSYCHOTHERAPY FOR SUBSTANCE ABUSE TREATMENT, SUPPORT (07/14/18) INDIV PSYCHOTHERAPY FOR SUBSTANCE ABUSE, COGNITIV BEHAVIORAL (05/05/18) INDIV PSYCHOTHERAPY FOR SUBSTANCE ABUSE, PSYCHOEDUCATION (07/14/18) INDIVIDUAL PSYCHOTHERAPY, COGNITIVE-BEHAVIORAL (05/05/18) INDIVIDUAL PSYCHOTHERAPY, SUPPORTIVE (05/05/18) INJECT/INFUSE NEC (03/20/12) MEDICATION MANAGEMENT (03/12/17) MEDS MGMT FOR SUBSTANCE ABUSE TREATMENT, OTH REPL MED (03/12/17) Family History: States: Unknown Family Hx - Social History Hx Tobacco Use: Yes Hx Alcohol Use: Yes Hx Substance Use: Yes - Immunization History Hx Tetanus Toxoid Vaccination: Yes Hx Influenza Vaccination: Yes Hx Pneumococcal Vaccination: Yes Review Of Systems Constitutional: Negative for: Fever, Chills Cardiovascular: Negative for: Chest Pain, Palpitations Respiratory: Positive for: Cough, Shortness of Breath, Sputum Gastrointestinal: Negative for: Vomiting Skin: Negative for: Rash Neurological: Negative for: Weakness, Numbness Physical Exam - Physical Exam Appears: Non-toxic Skin: Normal Color, Warm, Dry Head: Atraumatic, Normacephalic Eye(s): bilateral: Normal Inspection Ear(s): Bilateral: Normal Nose: Normal Oral Mucosa: Moist Throat: Normal, No Erythema, No Exudate Neck: Normal, Supple Chest: Symmetrical, No Tenderness Cardiovascular: Rhythm Regular Respiratory: No Rales, No Rhonchi, Wheezing (Occasional), Other (Not dyspneic) Gastrointestinal/Abdominal: Soft, No Tenderness Back: No CVA Tenderness Neurological/Psych: Oriented x3, Normal Speech ED Course And Treatment - Laboratory Results Result Diagrams: 10/21/18 23:59 10/21/18 23:59 ECG: Interpreted By Me, Viewed By Me ECG Rhythm: Sinus Tachycardia ECG Interpretation: No Acute Changes Interpretation Of ECG: Sinus tachycardia, occa. PVc Rate From EC O2 Sat by Pulse Oximetry: 95 (Room air) Pulse Ox Interpretation: Normal - Radiology CXR: Interpreted by Me, Viewed By Me CXR Interpretation: Yes: No Acute Disease, Other (noal chest film). No: Infiltrates Progress Note: EKG, blood work, and CXR ordered. Albuterol nebulizer administered. Disposition Counseled Patient/Family Regarding: Diagnosis - Disposition Referrals: [facility] [Outside] Disposition: HOME/ ROUTINE Disposition Time: 01:07 Condition: STABLE Prescriptions: Albuterol HFA [Ventolin HFA 90 mcg/actuation (8 g)] 2 puff IH [id number] #1 inhaler Azithromycin [Zithromax] 250 mg PO DAILY #6 tab Instructions: COPD Including Emphysema (DC), Acute Bronchitis, Adult (DC) Forms: [facility] (Ukrainian) - POA Present On Arrival: None - Clinical Impression Clinical Impression: COPD (chronic obstructive pulmonary disease), Bronchitis - Scribe Statement The provider has reviewed the documentation as recorded by the Scribe Juvenal Gamboa All medical record entries made by the Petersonibkeri were at my direction and personally dictated by me. I have reviewed the chart and agree that the record accurately reflects my personal performance of the history, physical exam, medical decision making, and the department course for this patient. I have also personally directed, reviewed, and agree with the discharge instructions and disposition.
[2018-10-21] MEDS ORDERED: Albuterol-Ipratrop 3 mg / 0.5 (3 ml) UD ONE (23:37)
[2018-10-22 00:06] LABS: BASO # 0.1 K/uL (0.0-0.2); BASO % 0.7 % (0.0-2.0); EOS # 0.1 K/uL (0.0-0.7); HEMOGLOBIN 10.8 g/dL (12.0-18.0); LYMPH # 2.5 K/uL (1.0-4.3); LYMPH % 27.6 % (20.0-40.0); MEAN CELL VOLUME 80.2 fL (80.0-94.0); MEAN CORPUSCULAR HEMOGLOBIN 26.3 pg (27.0-31.0); MEAN CORPUSCULAR HGB CONC 32.8 g/dL (33.0-37.0); MEAN PLATELET VOLUME 7.7 fL (7.2-11.7); MONO # 0.4 K/uL (0.0-0.8); MONO % 4.7 % (0.0-10.0); RBC 4.12 Mil/uL (4.40-5.90); RED CELL DISTRIBUTION WIDTH 24.8 % (11.5-14.5); WHITE BLOOD COUNT 9.1 K/uL (4.8-10.8)
[2018-10-22 00:55] LABS: ALB/GLOB RATIO 1.3 (1.0-2.1); ALBUMIN 4.1 g/dL (3.5-5.0); ALT/SGPT 22 U/L (21-72); AST/SGOT 23 U/L (17-59); B-TYPE NATRIURETIC PEPTIDE 231 pg/mL (0-900); BLOOD UREA NITROGEN 7 mg/dL (9-20); CALCIUM 8.6 mg/dl (8.6-10.4); GFR NON-AFRICAN AMERICAN > 60
[2018-10-22 01:35] VITALS: BP 121/70; PULSE 110; RESP 20; TEMP 98; O2SAT 94
[2018-10-22] MEDS ORDERED: Albuterol HFA 90 mcg/actuation (8 g) INH STA (02:58)
--- NOTE | 2018-10-22 08:45 | RAD ---
Date of service: 10/21/2018 HISTORY: SOB COMPARISON: Chest radiographs 09/21/2018. TECHNIQUE: Chest PA and lateral FINDINGS: LUNGS: No acute airspace disease identified bilaterally. Hyperinflation reiterated compatible with COPD. PLEURA: No significant pleural effusion identified. No pneumothorax apparent. CARDIOVASCULAR: No aortic atherosclerotic calcification present. Normal cardiac size. No pulmonary vascular congestion. OSSEOUS STRUCTURES: Old healed inferior right 7th anterior rib fracture again evident. VISUALIZED UPPER ABDOMEN: Normal. OTHER FINDINGS: None. IMPRESSION: COPD reiterated. No acute infiltrate pleural effusion or pneumothorax identified bilaterally. Vascular congestion apparent.
--- NOTE | 2018-10-22 23:34 | CARD ---
APPROVED REPORT Date of service: 10/21/2018 EKG Measurement Heart [id number] <Conclusion> Sinus tachycardia with occasional premature ventricular complexes Otherwise normal ECG
== END 2018-10-22 06:10 | disposition home or self-care (01) ==
LOC: C.ER 22:10
DX: J44.9 Chronic obstructive pulmonary disease, unspecified (principal)

== ENCOUNTER 2018-10-23 14:10 | Observation (INO) | payer MEDICAID ==
[2018-10-23 14:16] VITALS: BMI 23.5
--- NOTE | 2018-10-23 15:03 | C.PDOC ---
History Of Present Illness 58 y/o homeless male with history of COPD and anxiety presents to ED with c/o feeling depressed and anxious associated with sob since yesterday. Patient states he slept outside lastnight and states that he became more SOB with cough. At ED patient denies HI, auditory or visual hallucinations. No other complaints at this time. Time Seen by Provider: 10/23/18 14:14 Chief Complaint (Nursing): Psychiatric Evaluation History Per: Patient History/Exam Limitations: no limitations Onset/Duration Of Symptoms: Days Current Symptoms Are (Timing): Still Present Suicide/Self Injury Attempted (Context): None Associated Symptoms: Anxiety, Depression, Suicidal Thoughts, Suicidal Plan Past Medical History Reviewed: Historical Data, Nursing Documentation, Vital Signs Vital Signs: Last Vital Signs Temp 98 F 10/23/18 14:16 Pulse 105 H 10/23/18 14:16 Resp 22 10/23/18 14:16 BP 177/105 H 10/23/18 14:16 Pulse Ox 97 10/23/18 14:16 - Medical History PMH: Anxiety, Asthma, Bronchitis, COPD, Depression, Gastrointestinal Ulcer, HTN, Pneumonia Surgical History: Appendectomy, Tonsillectomy - [facility] Procedures CONTR ABD ARTERIOGRM NEC (05/20/07) DETOXIFICATION SERVICES FOR SUBSTANCE ABUSE TREATMENT (09/12/18) ESOPHAGOGASTRODUODENOSCOPY [EGD] W/CLOSED BIOPSY (05/20/07) EXCISION OF LOWER ESOPHAGUS, ENDO, DIAGN (05/21/17) EXTIRPATION OF MATTER FROM LOWER ESOPHAGUS, ENDO (05/21/17) GROUP TECHNOLOGY RECRUITER FOR SUBSTANCE ABUSE TREATMENT, PSYCHOEDUCATION (05/05/18) GROUP TECHNOLOGY RECRUITER FOR SUBSTANCE ABUSE, COGNITIVE BEHAVIORAL (05/05/18) GROUP PSYCHOTHERAPY (07/14/18) INDIV TECHNOLOGY RECRUITER FOR SUBSTANCE ABUSE TREATMENT, PSYCHOEDUCATION (01/14/17) INDIV TECHNOLOGY RECRUITER FOR SUBSTANCE ABUSE, COGNITIVE BEHAVIORAL (01/14/17) INDIV PSYCHOTHERAPY FOR SUBSTANCE ABUSE TREATMENT, SUPPORT (07/14/18) INDIV PSYCHOTHERAPY FOR SUBSTANCE ABUSE, COGNITIV BEHAVIORAL (05/05/18) INDIV PSYCHOTHERAPY FOR SUBSTANCE ABUSE, PSYCHOEDUCATION (07/14/18) INDIVIDUAL PSYCHOTHERAPY, COGNITIVE-BEHAVIORAL (05/05/18) INDIVIDUAL PSYCHOTHERAPY, SUPPORTIVE (05/05/18) INJECT/INFUSE NEC (03/20/12) MEDICATION MANAGEMENT (03/12/17) MEDS MGMT FOR SUBSTANCE ABUSE TREATMENT, OTH REPL MED (03/12/17) Family History: States: No Known Family Hx - Social History Hx Tobacco Use: Yes Hx Alcohol Use: Yes Hx Substance Use: Yes - Immunization History Hx Tetanus Toxoid Vaccination: Yes Hx Influenza Vaccination: Yes Hx Pneumococcal Vaccination: Yes Review Of Systems Constitutional: Negative for: Fever, Chills Cardiovascular: Negative for: Chest Pain Respiratory: Positive for: Shortness of Breath Psych: Positive for: Anxiety, Depression, Suicidal ideation. Negative for: Withdrawal Physical Exam - Physical Exam Appears: Non-toxic, No Acute Distress Skin: Warm, Dry, No Rash Head: Atraumatic, Normacephalic Eye(s): bilateral: Normal Inspection Oral Mucosa: Moist Neck: Normal ROM, Supple Chest: Symmetrical Cardiovascular: Rhythm Regular, No Friction Rub Respiratory: No Accessory Muscle Use, No Rales, No Rhonchi, No Stridor, Wheezing (moderate bilateral expiratory) Gastrointestinal/Abdominal: Soft, No Tenderness, No Guarding, No Rebound Back: Normal Inspection, No CVA Tenderness Extremity: Normal ROM, No Pedal Edema, Capillary Refill (<2 seconds), No Swelling Neurological/Psych: Oriented x3, Normal Speech (Speaking in full sentences), Normal Cognition, Normal Motor Gait: Steady ED Course And Treatment - Laboratory Results Result Diagrams: 10/23/18 15:14 10/23/18 15:14 O2 Sat by Pulse Oximetry: 97 (RA) Pulse Ox Interpretation: Normal Medical Decision Making Medical Decision Making: Plan: ECG, CXR, UA, Blood work ordered. IV fluids administered. The patient was found to be wheezing with mild SOB. Duonebs and Solu-medrol ordered. CXR shows hyperinflation with flattened diaphragms and no infiltrates. Less likely pneumonia and more likely CHF with elevated pro-BNP levels. Lasix IV ordered. The case was discussed with Dr. Gonzalez who agrees to place the patient on Tele OBS with psych consult for depression and alcohol dependence. Disposition - Disposition Disposition: HOSPITALIZED Disposition Time: 16:52 Condition: STABLE Forms: [facility] (Macedonian) - POA Present On Arrival: None - Clinical Impression Clinical Impression: Depression, COPD exacerbation, Acute exacerbation of CHF (congestive heart failure) - PA / ART GLASS SETTER / Resident Statement MD/DO has reviewed & agrees with the documentation as recorded. - Scribe Statement The provider has reviewed the documentation as recorded by the Petersonibkeri Mckeon All medical record entries made by the Petersonibkeri were at my direction and personally dictated by me. I have reviewed the chart and agree that the record accurately reflects my personal performance of the history, physical exam, medical decision making, and the department course for this patient. I have also personally directed, reviewed, and agree with the discharge instructions and disposition.
[2018-10-23 15:18] LABS: BASO % 0.4 % (0.0-2.0); EOS # 0.1 K/uL (0.0-0.7); HEMOGLOBIN 10.7 g/dL (12.0-18.0); LYMPH # 1.5 K/uL (1.0-4.3); LYMPH % 13.5 % (20.0-40.0); MEAN CELL VOLUME 79.8 fL (80.0-94.0); MEAN CORPUSCULAR HEMOGLOBIN 25.4 pg (27.0-31.0); MEAN CORPUSCULAR HGB CONC 31.9 g/dL (33.0-37.0); MEAN PLATELET VOLUME 7.8 fL (7.2-11.7); MONO # 0.9 K/uL (0.0-0.8); MONO % 8.2 % (0.0-10.0); NEUT # 8.6 K/uL (1.8-7.0); NEUT % 76.9 % (50.0-75.0); RBC 4.2 Mil/uL (4.40-5.90); RED CELL DISTRIBUTION WIDTH 24.7 % (11.5-14.5); WHITE BLOOD COUNT 11.2 K/uL (4.8-10.8)
[2018-10-23] MEDS ORDERED: Albuterol-Ipratrop 3 mg / 0.5 (3 ml) UD ONE ×2 (15:25→15:48)
[2018-10-23] MEDS: Albuterol-Ipratrop 3 mg / 0.5 (3 ml) UD IH SCH ×2 (15:29→15:47)
[2018-10-23 15:37] LABS: ALB/GLOB RATIO 1.4 (1.0-2.1); ALBUMIN 4.1 g/dL (3.5-5.0); ALT/SGPT 18 U/L (21-72); AST/SGOT 20 U/L (17-59); BLOOD UREA NITROGEN 5 mg/dL (9-20); GFR NON-AFRICAN AMERICAN > 60
[2018-10-23 15:38] LABS: B-TYPE NATRIURETIC PEPTIDE 1540 pg/mL (0-900)
--- NOTE | 2018-10-23 16:21 | RAD ---
Date of service: 10/23/2018 HISTORY: SOB, COPD COMPARISON: Comparison chest 10/21/2018. Comparison also made with CT chest dated TECHNIQUE: Chest PA and lateral FINDINGS: LUNGS: Mild hyperinflation with flattened diaphragms consistent with underlying emphysema- COPD. There is an old fracture right anterior seventh rib. Consider follow-up non emergent CT scan of the chest. PLEURA: No significant pleural effusion identified. No operative pneumothorax apparent. CARDIOVASCULAR: No aortic atherosclerotic calcification present. Normal cardiac size. No pulmonary vascular congestion. OSSEOUS STRUCTURES: No significant abnormalities. VISUALIZED UPPER ABDOMEN: Normal. OTHER FINDINGS: None. IMPRESSION: Mild hyperinflation with flattened diaphragms consistent with underlying emphysema- COPD. There is an old fracture right anterior seventh rib. Consider follow-up non emergent CT scan of the chest. .
[2018-10-23 16:51] LABS: URINE BACTERIA OCC (<OCC); URINE BILIRUBIN NEGATIVE (NEGATIVE); URINE BLOOD NEGATIVE (NEGATIVE); URINE CLARITY Hazy (Clear); URINE GLUCOSE (UA) NORMAL (Normal); URINE LEUKOCYTE ESTERASE NEG Leu/uL (Negative); URINE PROTEIN 1+ mg/dL (NEGATIVE)
[2018-10-23 16:52] LABS: URINE COLOR YELLOW (YELLOW)
[2018-10-23 17:22] LABS: BARBITURATES, UR NEGATIVE (NEGATIVE); OPIATES, UR NEGATIVE (NEGATIVE); PHENCYCLIDINE, UR NEGATIVE (NEGATIVE)
[2018-10-23 17:29] LABS: BENZODIAZEPINES, UR POSITIVE (NEGATIVE)
[2018-10-24] MEDS: guaiFENesin 600 mg ER Tab PO SCH ×2 (04:43→14:34)
[2018-10-24] MEDS: Pantoprazole 40 mg EC Tab PO SCH (09:46)
[2018-10-24] MEDS: Enoxaparin 40 mg Syringe SC SCH (09:47)
[2018-10-24] MEDS: Multiple Vitamins Tab PO SCH (09:47)
[2018-10-24] MEDS ORDERED: Home Med 1 UNIT (Umeclidinium Bromide [Incruse Ellipta] 62.5 MCG) IH SCH (10:00)
--- NOTE | 2018-10-24 11:27 | RAD ---
Date of service: 10/24/2018 PROCEDURE: Radiographs of the chest and bilateral ribs HISTORY: Status post fall on right ribs. COMPARISON: Comparison made with chest x-ray and CT chest dated 10/23/2018 and 05/07/2018 and respectively.. TECHNIQUE: Frontal radiograph of the chest and multiple oblique radiographs of the bilateral ribs were obtained. FINDINGS: RIGHT RIBS: There appear to be healing rib fractures of the right lateral 6th and 7th ribs. LEFT RIBS: No fracture or focal lesion visualized. LUNGS: Centrilobular emphysematous changes upper lobe predominance less well seen compared to high-resolution CT chest seen. There appears to be some minor scarring changes left lung base. PLEURA: No pneumothorax or pleural fluid. CARDIOVASCULAR: Normal cardiac size. No pulmonary vascular congestion. Minimal aortic atherosclerotic calcification present OTHER FINDINGS: Note made of what appears represent metallic embolization coils right parasagittal mid abdomen IMPRESSION: There appears to be healing fractures of the right anterolateral 6th and 7th ribs. Centrilobular emphysema upper lobe predominance less well seen on this study compared to high-resolution CT scan chest scarring changes suspected left lung base.
--- NOTE | 2018-10-24 12:15 | PCM.PSYCH ---
Initial Psychiatric Evaluation - Initial Psychiatric Evaluation Type of Admission: Voluntary Legal Status: Capacity Chief Complaint (in patient's own words): "I'm very depressed" History of Present Illness and Precipitating Events: Patient seen, chart reviewed, case discussed Patient is a 58-year-old single, homeless, unemployed white male with no child who receives his income from [employer] due to his COPD. The patient presented to the hospital with thoughts of suicide because he is so depressed and cannot find anywhere to live as the weather is getting cold. The patient had planned to jump in front of a truck in front of the [place]. The patient has had many episodes of suicidal ideations in the past. The patient feels shaky and depressed about his whole situation. The patient is unable to find transportation and communication with different groups to find a home. The patient states that he has lost all his belongings upon becoming homeless. The patient has only had rough sleep for the last week because of the cold weather. The patient still has interest in his daily activities such as crossword puzzles and watching TV. The patient states that he has been fatigued, lost weight and strength ever since his last stomach surgery in 2013. The patient has feelings of sadness and worthlessness but denies changes in appetite or concentration. The patient also denies any auditory or visual hallucinations. The patient has drunk between 0.5 to 1 pint of vodka and a few beers per day since his mother when he was 19, with his last drink about 10 days ago. The patient had his first drink at age 10. The patient smokes 1 joint of marijuana about 2 times per month and has smoked about half to one pack per day for 45 years. The patient denies heroin or other pill use but admits that he occasionally smokes crack when he drinks. The patient has only seen a psychiatrist when he has been in the hospital, with the last time one week ago due to troubles breathing. Patient is currently being treated with Sertraline for his depressio but he says it is not working He contracts for safety and denies any intention to hurt himself now. Moreover, he is future-oriented. He agreed to meet with the to discuss his future plans, ie housing, psych referral. Pt is shaky but not in clear withdrawal, likely b/c he doesn;t stay outside long enough to drink much. He agreed. Past Psych History: Major Depressive Disorder recurrent severe. Many psych and detox admissions Past Medical History: Asthma, COPD, HTN, BPH, reflux Family Psych History: Unknown Current Medications: Active Medications Generic Name Dose Route Start Last Admin Trade Name Freq PRN Reason Stop Dose Admin Albuterol/Ipratropium 3 ml 10/24/18 01:35 Duoneb 3 Mg/0.5 Mg (3 Ml) Ud INH RQ4 PRN SOB Chlordiazepoxide 25 mg 10/24/18 07:08 Librium PO Q8 PRN EtOH withdrawl Enoxaparin Sodium 40 mg 10/24/18 10:00 10/24/18 09:47 Lovenox SC 40 mg DAILY FERNANDA Administration Folic Acid 1 mg 10/24/18 10:00 10/24/18 11:00 Folic Acid PO 1 mg DAILY [facility]ERNANDA Administration Gabapentin 100 mg 10/24/18 10:00 10/24/18 09:47 Neurontin PO 100 mg TID FERNANDA Administration Guaifenesin 600 mg 10/24/18 01:45 10/24/18 04:43 Mucinex La PO 600 mg Q12H FERNANDA Administration Home Med 62.5 mcg 10/24/18 10:00 Umeclidinium [place] [Incruse Ellipta] IH DAILY FERNANDA Ceftriaxone Sodium 1 gm/ 100 mls @ 100 mls/hr 10/24/18 10:00 10/24/18 09:48 Sodium Chloride IVPB 100 mls/hr DAILY [facility]ERNANDA Administration Protocol Lisinopril 10 mg 10/24/18 10:00 10/24/18 09:46 Zestril PO 10 mg DAILY [facility] Administration Methylprednisolone 40 mg 10/24/18 09:30 10/24/18 09:47 Solu-Medrol IV 10/27/18 09:29 40 mg Q8H FERNANDA Administration Taper Mirtazapine 15 mg 10/24/18 22:00 Remeron PO HS FERNANDA Multivitamins 1 tab 10/24/18 10:00 10/24/18 09:47 Hexavitamin PO 1 tab DAILY [facility] Administration Pantoprazole Sodium 40 mg 10/24/18 10:00 10/24/18 09:46 Protonix Ec Tab PO 40 mg DAILY [facility] Administration Sertraline HCl 100 mg 10/24/18 10:00 10/24/18 09:46 Zoloft PO 100 mg DAILY [facility] Administration Tamsulosin HCl 0.4 mg 10/24/18 10:00 10/24/18 09:46 Flomax PO 0.4 mg DAILY [facility] Administration Thiamine HCl 100 mg 10/24/18 10:00 10/24/18 09:46 Vitamin B1 Tab PO 100 mg DAILY [facility]ERNAN[facility] Administration Trazodone HCl 100 mg 10/24/18 01:38 Desyrel PO HS PRN insomnia Past Psychiatric History - Past Psychiatric History Previous Treatment History: Inpatient Pertinent Medical Hx (Current Medical&Sleep Prob, Allergies): Allergies Allergy/AdvReac Type Severity Reaction Status Date / Time No Known Allergies Allergy Verified 10/23/18 14:14 Mirtazapine [Remeron] 15 mg PO HS #30 tab 07/17/18 Pantoprazole [Protonix EC Tab] 40 mg PO DAILY #14 ect 08/06/18 Umeclidinium [place] [Incruse Ellipta] 62.5 mcg IH DAILY #1 inh 08/06/18 Folic Acid 1 mg PO DAILY #30 tab 08/07/18 Montelukast [Singulair] 10 mg PO HS #30 tab 08/07/18 Tamsulosin [Flomax] 0.4 mg PO DAILY #30 cap 08/07/18 Gabapentin [Neurontin] 100 mg PO TID #30 capsule 08/28/18 Lisinopril [Zestril] 10 mg PO DAILY #30 tab 08/28/18 Albuterol Sulfate [Ventolin Hfa] 1 puff IH Q4 PRN 30 Days #1 inhaler 09/10/18 Albuterol HFA [Ventolin HFA 90 mcg/actuation (8 g)] 1 puff INH RQ4 PRN #0 inhaler 09/25/18 Fluticasone/Vilanterol 200/25 [Breo Ellipta 200-25 Mcg INH] 1 puff INH RQD #0 inhaler 09/25/18 Gabapentin [Neurontin] 300 mg PO BID cap 09/25/18 Guaifenesin [Mucinex] 600 mg PO Q12H #28 tab.er.12h 09/25/18 Methylprednisolone [Medrol Dose Pack (21 tabs)] 4 mg PO ASDIR #21 mg 09/25/18 Multivitamins [Hexavitamin] 1 tab PO DAILY tab 09/25/18 Sertraline [Zoloft] 100 mg PO DAILY tab 09/25/18 Thiamine [Vitamin B1 Tab] 100 mg PO DAILY tab 09/25/18 Tiotropium [Spiriva] 18 mcg INH RQ24 cap 09/25/18 traZODone [Desyrel] 100 mg PO HS PRN tab 09/25/18 Albuterol HFA [Ventolin HFA 90 mcg/actuation (8 g)] 2 puff IH [id number] #1 inhaler 10/22/18 Azithromycin [Zithromax] 250 mg PO DAILY #6 tab 10/22/18 Review of Systems - Psychiatric Psychiatric: Abnormal Sleep Pattern, Anhedonia, Anxiety, Behavioral Changes, Change in Appetite, Depression, Difficulty Concentrating, Memory Loss, Mood Swings. absent: Hallucinations, Homicidal Ideation, Paranoia, Suicidal Ideation Mental Status Examination - Personal Presentation Personal Presentation: Looks older than stated age - Affect Affect: Constricted - Motor Activity Motor Activity: Calm - Reliability in Providing Information Reliability in Providing Information: Good - Speech Speech: Organized - Mood Mood: Depressed, Anxious - Formal Thought Process Formal Thought Process: No Impairment - Cognitive Functions Orientation: Person, Place, Situation, Time Sensorium: Alert Attention/Concentration: Easily distracted Estimate of Intelligence: Average Judgement: Intact, as evidence by: Insight regarding need for hospitalization Memory: Recent intact, as evidence by: Ability to recall events of the day, Remote impaired as evidenced by: Inability to recall sig life events - Risk Risk: Withdrawal, Diminished functioning - Strength & Assets Inventory Strength & Assets Inventory: Cooperative - Limitations Limitations: Living alone DSM 5 DX - DSM 5 DSM 5 Diagnosis: Major Depressive Disorder recurrent severe without psychotic features Alcohol use d/osevere Cocaine use d/omild - Recommended/Plan of Treatment Treatment Recommendations and Plan of Treatment: Lexapro for depression No need for detox but use prn librium As need medications All risks, benefits and alternatives of the meds discussed, and the pt agreed and understood. Attend groups and activities Individual therapy daily Psychoeducation and support daily Encourage compliance with meds and after care Refer to outpatient program Teach healthy lifestyle methods, i.e. diet, exercise, meditation Smoking cessation and patch if needed Monitor SI and contact psych if needed Also, pls have SW see him re referrals (CRC and housing) 35 min
--- NOTE | 2018-10-24 12:27 | CARD ---
APPROVED REPORT Date of service: 10/23/2018 EKG Measurement Heart [id number] <Conclusion> Sinus rhythm with premature supraventricular complexes Junctional ST depression, probably normal Prolonged QT Abnormal ECG
--- NOTE | 2018-10-24 13:00 | CP.PCM.PN ---
Subjective - Date & Time of Evaluation Date of Evaluation: 10/24/18 Time of Evaluation: 13:01 - Subjective Subjective: PGY3 Note for Dr. Gonzalez This patient was seen and examined at bedside; he is still short of breath but states he feels better; is mostly looking for a place to stay since he's homeless but states his shortness of breath also brought him in; he states he also feels tremulous; denies all other symptoms. Objective - Vital Signs/Intake and Output Vital Signs (last 24 hours): Temp Pulse Resp BP Pulse Ox 98.4 F 88 18 126/81 98 10/24/18 07:00 10/24/18 07:00 10/24/18 07:00 10/24/18 07:00 10/24/18 07:00 - Medications Medications: Current Medications Albuterol/Ipratropium (Duoneb 3 Mg/0.5 Mg (3 Ml) Ud) 3 ml INH RQ4 PRN PRN Reason: SOB Chlordiazepoxide (Librium) 25 mg PO Q6H PRN PRN Reason: Objective alcohol wdw CIWA>15 Enoxaparin Sodium (Lovenox) 40 mg SC DAILY [facility] Last Admin: 10/24/18 09:47 Dose: 40 mg Escitalopram Oxalate (Lexapro) 20 mg PO DAILY [facility] Folic Acid (Folic Acid) 1 mg PO DAILY [facility] Last Admin: 10/24/18 11:00 Dose: 1 mg Gabapentin (Neurontin) 100 mg PO TID [facility] Last Admin: 10/24/18 09:47 Dose: 100 mg Guaifenesin (Mucinex La) 600 mg PO Q12H [facility] Last Admin: 10/24/18 04:43 Dose: 600 mg Home Med (Umeclidinium [place] [Incruse Ellipta]) 62.5 mcg IH DAILY [facility] Ceftriaxone Sodium 1 gm/ (Sodium Chloride) 100 mls @ 100 mls/hr IVPB DAILY [facility]; Protocol Last Admin: 10/24/18 09:48 Dose: 100 mls/hr Lisinopril (Zestril) 10 mg PO DAILY [facility] Last Admin: 10/24/18 09:46 Dose: 10 mg Methylprednisolone (Solu-Medrol) 40 mg IV Q8H [facility]; Taper Stop: 10/27/18 09:29 Last Admin: 10/24/18 09:47 Dose: 40 mg Mirtazapine (Remeron) 15 mg PO HS [facility] Multivitamins (Hexavitamin) 1 tab PO DAILY [facility] Last Admin: 10/24/18 09:47 Dose: 1 tab Pantoprazole Sodium (Protonix Ec Tab) 40 mg PO DAILY [facility] Last Admin: 10/24/18 09:46 Dose: 40 mg Tamsulosin HCl (Flomax) 0.4 mg PO DAILY [facility] Last Admin: 10/24/18 09:46 Dose: 0.4 mg Thiamine HCl (Vitamin B1 Tab) 100 mg PO DAILY [facility] Last Admin: 10/24/18 09:46 Dose: 100 mg Trazodone HCl (Desyrel) 100 mg PO HS PRN PRN Reason: insomnia - Labs Labs: 10/23/18 15:14 10/23/18 15:14 - Constitutional Appears: Well, Non-toxic - Head Exam Head Exam: ATRAUMATIC - Eye Exam Eye Exam: EOMI Pupil Exam: PERRL - ENT Exam ENT Exam: Mucous Membranes Moist - Neck Exam Neck Exam: Full ROM. absent: Lymphadenopathy - Respiratory Exam Respiratory Exam: Wheezes, NORMAL BREATHING PATTERN. absent: Clear to Ausculation Bilateral, Rales, Rhonchi - Cardiovascular Exam Cardiovascular Exam: REGULAR RHYTHM, +S1, +S2 - GI/Abdominal Exam GI & Abdominal Exam: Soft, Normal Bowel Sounds - Extremities Exam Extremities Exam: Full ROM. absent: Calf Tenderness - Back Exam Back Exam: NORMAL INSPECTION. absent: CVA tenderness (L), CVA tenderness (R) - Neurological Exam Neurological Exam: Alert, Awake, Normal Gait, Oriented x3 - Psychiatric Exam Psychiatric exam: Normal Affect - Skin Skin Exam: Warm Assessment and Plan - Assessment and Plan (Free Text) Assessment: 58M admitted for shortness of breath, COPD exacerbation, EtOH abuse/withdrawal, and homelessness COPD Exacerbation -Solumedrol 40mg IV Q8h Taper-->Q12H-->daily -duonebs PRN Q4H -ceftriaxone/azithromycin for 5 days -incentive spirometry EtOH abuse/Withdrawal -CIWA -Thiamine/folate daily -Librium 25mg Q6H PRN for CIWA above 8 -telemetry -last drink 10/22 -denies hx of seizures from withdrawal Homelessness -f/u social work recs Proph -GI proph protonix on high dose steroids -Lovenox SC 40 daily -PT/OT Case discussed and seen with Dr. Lisa Bob PGY3
[2018-10-24] MEDS: Albuterol-Ipratrop 3 mg / 0.5 (3 ml) UD INH PRN ×3 (14:06→19:23)
[2018-10-24] MEDS: Lidocaine 5% Patch TD SCH (14:34)
[2018-10-24 15:58] VITALS: RESP 20
[2018-10-25] MEDS ORDERED: DiphenhydrAMINE 50 mg/ml Inj IVP STA (01:17)
[2018-10-25] MEDS: guaiFENesin 600 mg ER Tab PO SCH ×2 (01:59→13:45)
[2018-10-25] MEDS ORDERED: Tiotropium 18 mcg Cap For Inhalation INH SCH (08:00)
[2018-10-25] MEDS: Albuterol-Ipratrop 3 mg / 0.5 (3 ml) UD INH PRN (08:07)
[2018-10-25 08:16] VITALS: BP 123/71; PULSE 74; TEMP 97.3; O2SAT 98
[2018-10-25] MEDS: Pantoprazole 40 mg EC Tab PO SCH (09:30)
[2018-10-25] MEDS: Multiple Vitamins Tab PO SCH (09:31)
[2018-10-25] MEDS: Enoxaparin 40 mg Syringe SC SCH (09:36)
[2018-10-25] MEDS ORDERED: Influenza Vaccine 60 MCG/0.5 ML SYR (3 yr & up) IM ONE (10:00)
[2018-10-25] MEDS: Lidocaine 5% Patch TD SCH (11:47)
--- NOTE | 2018-10-25 12:14 | CP.PCM.PN ---
Subjective - Date & Time of Evaluation Date of Evaluation: 10/25/18 Time of Evaluation: 12:13 - Subjective Subjective: patient seen and examine at the bedside Objective - Vital Signs/Intake and Output Vital Signs (last 24 hours): Temp Pulse Resp BP Pulse Ox 97.3 F L 74 20 123/71 98 10/25/18 07:00 10/25/18 07:00 10/25/18 07:00 10/25/18 07:00 10/25/18 07:00 - Medications Medications: Current Medications Acetaminophen (Tylenol 325mg Tab) 650 mg PO STAT STA Stop: 10/25/18 12:10 Albuterol/Ipratropium (Duoneb 3 Mg/0.5 Mg (3 Ml) Ud) 3 ml INH RQ4 PRN PRN Reason: SOB Last Admin: 10/25/18 08:07 Dose: 3 ml Chlordiazepoxide (Librium) 25 mg PO Q6H PRN PRN Reason: Objective alcohol wdw CIWA>15 Enoxaparin Sodium (Lovenox) 40 mg SC DAILY [facility] Last Admin: 10/25/18 09:36 Dose: 40 mg Escitalopram Oxalate (Lexapro) 20 mg PO DAILY [facility] Last Admin: 10/25/18 09:36 Dose: 20 mg Folic Acid (Folic Acid) 1 mg PO DAILY [facility] Last Admin: 10/25/18 09:30 Dose: 1 mg Gabapentin (Neurontin) 100 mg PO TID [facility] Last Admin: 10/25/18 09:31 Dose: 100 mg Guaifenesin (Mucinex La) 600 mg PO Q12H [facility] Last Admin: 10/25/18 01:59 Dose: 600 mg Lidocaine (Lidoderm) 1 ea TD DAILY [facility] Last Admin: 10/25/18 11:47 Dose: 1 ea Lisinopril (Zestril) 10 mg PO DAILY [facility] Last Admin: 10/25/18 09:30 Dose: 10 mg Methylprednisolone (Solu-Medrol) 40 mg IV Q12H [facility]; Taper Stop: 10/27/18 09:29 Last Admin: 10/25/18 09:37 Dose: 40 mg Mirtazapine (Remeron) 15 mg PO HS [facility] Last Admin: 10/24/18 22:28 Dose: 15 mg Multivitamins (Hexavitamin) 1 tab PO DAILY [facility] Last Admin: 10/25/18 09:31 Dose: 1 tab Pantoprazole Sodium (Protonix Ec Tab) 40 mg PO DAILY [facility] Last Admin: 10/25/18 09:30 Dose: 40 mg Tamsulosin HCl (Flomax) 0.4 mg PO DAILY [facility] Last Admin: 10/25/18 09:30 Dose: 0.4 mg Thiamine HCl (Vitamin B1 Tab) 100 mg PO DAILY [facility] Last Admin: 10/25/18 09:31 Dose: 100 mg Tiotropium [place] (Spiriva) 18 mcg INH RQ24 [facility]ERNANDA Trazodone HCl (Desyrel) 100 mg PO HS PRN PRN Reason: insomnia - Labs Labs: 10/23/18 15:14 10/23/18 15:14 Assessment and Plan - Assessment and Plan (Free Text) Assessment: follow up with dr mooney in 1-2 week----call for appointment continue home medication new prescription given lexapro azithromycin medrol dose pack activity as tolerated xochilt dr mooney or go to the emergency room if symptom return or worsening
[2018-10-25] MEDS ORDERED: Pneumococcal 23-Valent Vaccine IM ONE (14:00)
== END 2018-10-25 19:11 | disposition home or self-care (01) ==
LOC: C.ER 14:10 → C.9E 16:26 → C.6T 23:01
PROVIDERS: ADMIT Internal Medicine Pulmonary Disease; ATTEND Internal Medicine Pulmonary Disease
DX: J44.1 Chronic obstructive pulmonary disease with (acute) exacerbation (principal); I50.9 Heart failure, unspecified; F33.2 Major depressive disorder, recurrent severe without psychotic features; I11.0 Hypertensive heart disease with heart failure; Z59.0 Homelessness; Z87.11 Personal history of peptic ulcer disease; Z56.0 Unemployment, unspecified; Z87.891 Personal history of nicotine dependence; N40.0 Benign prostatic hyperplasia without lower urinary tract symptoms; K21.9 Gastro-esophageal reflux disease without esophagitis; R45.851 Suicidal ideations; F10.10 Alcohol abuse, uncomplicated
CPT/HCPCS: 71046; 71111; 80053; 80320; 80324; 80345; 80346; 80349; 80353; 80358; 80361; 81001; 83735; 83880; 83992; 84100; 85025; 93005; 94150; 94640; 94760; 96374; 99285; G0378; J0696; J1650; J1940; J2930

== ENCOUNTER 2018-10-26 17:41 | Inpatient (IN) | payer MEDICAID ==
[2018-10-26 17:42] VITALS: BMI 23.5
--- NOTE | 2018-10-26 19:41 | C.PDOC ---
History Of Present Illness 58 year old male presents to the ED for evaluation of alcohol intoxication. Patient also states feeling depressed and has been thinking about jumping into traffic. Patient denies HI, hallucinations, CP, SOB, injury, fall, trauma. Time Seen by Provider: 10/26/18 18:04 Chief Complaint (Nursing): Psychiatric Evaluation History Per: Patient History/Exam Limitations: intoxication Onset/Duration Of Symptoms: Days Current Symptoms Are (Timing): Still Present Suicide/Self Injury Attempted (Context): None Modifying Factor(s): Alcohol Associated Symptoms: Depression, Suicidal Thoughts, Suicidal Plan Recent travel outside of the [place]: No Additional History Per: Patient Past Medical History Reviewed: Historical Data, Nursing Documentation, Vital Signs Vital Signs: Last Vital Signs Temp 98.7 F 10/26/18 17:58 Pulse 98 H 10/26/18 17:58 Resp 20 10/26/18 17:58 BP 147/83 10/26/18 17:58 Pulse Ox 95 10/26/18 17:58 - Medical History PMH: Anxiety, Asthma, Bronchitis, COPD, Depression, Gastrointestinal Ulcer, HTN, Pneumonia Denies: Chronic Kidney Disease Surgical History: Appendectomy, Tonsillectomy - [facility] Procedures CONTR ABD ARTERIOGRM NEC (05/20/07) DETOXIFICATION SERVICES FOR SUBSTANCE ABUSE TREATMENT (09/12/18) ESOPHAGOGASTRODUODENOSCOPY [EGD] W/CLOSED BIOPSY (05/20/07) EXCISION OF LOWER ESOPHAGUS, ENDO, DIAGN (05/21/17) EXTIRPATION OF MATTER FROM LOWER ESOPHAGUS, ENDO (05/21/17) GROUP NET WPF DEVELOPER FOR SUBSTANCE ABUSE TREATMENT, PSYCHOEDUCATION (05/05/18) GROUP NET WPF DEVELOPER FOR SUBSTANCE ABUSE, COGNITIVE BEHAVIORAL (05/05/18) GROUP PSYCHOTHERAPY (07/14/18) INDIV NET WPF DEVELOPER FOR SUBSTANCE ABUSE TREATMENT, PSYCHOEDUCATION (01/14/17) INDIV NET WPF DEVELOPER FOR SUBSTANCE ABUSE, COGNITIVE BEHAVIORAL (01/14/17) INDIV PSYCHOTHERAPY FOR SUBSTANCE ABUSE TREATMENT, SUPPORT (07/14/18) INDIV PSYCHOTHERAPY FOR SUBSTANCE ABUSE, COGNITIV BEHAVIORAL (05/05/18) INDIV PSYCHOTHERAPY FOR SUBSTANCE ABUSE, PSYCHOEDUCATION (07/14/18) INDIVIDUAL PSYCHOTHERAPY, COGNITIVE-BEHAVIORAL (05/05/18) INDIVIDUAL PSYCHOTHERAPY, SUPPORTIVE (05/05/18) INJECT/INFUSE NEC (03/20/12) MEDICATION MANAGEMENT (03/12/17) MEDS MGMT FOR SUBSTANCE ABUSE TREATMENT, OTH REPL MED (03/12/17) Family History: States: Unknown Family Hx - Social History Hx Tobacco Use: Yes Hx Alcohol Use: Yes Hx Substance Use: No (DENIES) - Immunization History Hx Tetanus Toxoid Vaccination: No Hx Influenza Vaccination: Yes Hx Pneumococcal Vaccination: Yes Review Of Systems Constitutional: Negative for: Fever, Chills Cardiovascular: Negative for: Chest Pain Respiratory: Negative for: Cough, Shortness of Breath Gastrointestinal: Negative for: Nausea, Vomiting, Abdominal Pain Skin: Negative for: Rash Psych: Positive for: Depression, Suicidal ideation Physical Exam - Physical Exam Appears: Non-toxic, No Acute Distress, Other (intoxicated, flat affect) Skin: Normal Color, Warm, Dry Head: Atraumatic, Normacephalic Eye(s): bilateral: Normal Inspection Oral Mucosa: Moist Cardiovascular: Rhythm Regular Respiratory: Normal Breath Sounds, No Rales, No Rhonchi, No Wheezing Gastrointestinal/Abdominal: Normal Exam, Bowel Sounds, Soft, No Tenderness Extremity: Normal ROM, No Tenderness, No Swelling Gait: Steady ED Course And Treatment - Laboratory Results Result Diagrams: 10/26/18 22:50 10/26/18 22:50 O2 Sat by Pulse Oximetry: 95 (ON RA) Pulse Ox Interpretation: Normal Progress Note: Blood work, UA, UDS, accucheck ordered and reviewed. 11:10- Patient medically cleared. Pending crisis. Disposition - Disposition Disposition Time: 23:10 Condition: STABLE Forms: [facility] ([place]ammarinese) - Clinical Impression Clinical Impression: Alcohol intoxication, Depression - Scribe Statement The provider has reviewed the documentation as recorded by the Scribe Jose J Ceballos All medical record entries made by the Scribe were at my direction and personally dictated by me. I have reviewed the chart and agree that the record accurately reflects my personal performance of the history, physical exam, medical decision making, and the department course for this patient. I have also personally directed, reviewed, and agree with the discharge instructions and disposition. Physician Patient Turnover Patient Signed Over To: Ward Sky Handoff Comments: pending crisis
[2018-10-26 22:52] LABS: URINE BILIRUBIN NEGATIVE (NEGATIVE); URINE BLOOD NEGATIVE (NEGATIVE); URINE CLARITY Clear (Clear); URINE COLOR Straw (YELLOW); URINE GLUCOSE (UA) NORMAL (Normal); URINE LEUKOCYTE ESTERASE NEG Leu/uL (Negative); URINE PROTEIN NEGATIVE (NEGATIVE); URINE UROBILINOGEN NORMAL mg/dL (0.2-1.0)
[2018-10-26 22:52] LABS: EOS # 0.1 K/uL (0.0-0.7); HEMOGLOBIN 10.2 g/dL (12.0-18.0); LYMPH # 0.2 K/uL (1.0-4.3); LYMPH % 1.8 % (20.0-40.0); MEAN CELL VOLUME 80.4 fL (80.0-94.0); MEAN CORPUSCULAR HEMOGLOBIN 26.4 pg (27.0-31.0); MEAN CORPUSCULAR HGB CONC 32.8 g/dL (33.0-37.0); MEAN PLATELET VOLUME 7.6 fL (7.2-11.7); MONO # 2.9 K/uL (0.0-0.8); MONO % 28.4 % (0.0-10.0); NEUT # 7.1 K/uL (1.8-7.0); NEUT % 68.8 % (50.0-75.0); PLATELET COUNT 269 K/uL (130-400); RBC 3.88 Mil/uL (4.40-5.90); RED CELL DISTRIBUTION WIDTH 24.7 % (11.5-14.5); WHITE BLOOD COUNT 10.4 K/uL (4.8-10.8)
[2018-10-26 23:05] LABS: BARBITURATES, UR NEGATIVE (NEGATIVE); OPIATES, UR NEGATIVE (NEGATIVE); PHENCYCLIDINE, UR NEGATIVE (NEGATIVE)
[2018-10-26 23:06] LABS: ALB/GLOB RATIO 1.3 (1.0-2.1); ALBUMIN 3.4 g/dL (3.5-5.0); ALT/SGPT 16 U/L (21-72); AST/SGOT 14 U/L (17-59); BLOOD UREA NITROGEN 19 mg/dL (9-20); CALCIUM 8.3 mg/dl (8.6-10.4); GFR NON-AFRICAN AMERICAN > 60
[2018-10-26 23:06] LABS: BENZODIAZEPINES, UR POSITIVE (NEGATIVE)
[2018-10-26] MEDS ORDERED: Potassium Chloride 20 mEq ER Tab PO STA (23:11)
[2018-10-26 23:20] LABS: LYMPHOCYTE 16 % (20-40); MONOCYTE 18 % (0-10); NEUTROPHIL 66 % (50-75); PLATELET ESTIMATE NORMAL (NORMAL); TOTAL CELLS COUNTED 100
[2018-10-26 23:21] LABS: ANISOCYTOSIS MODERATE; HYPOCHROMIC SLIGHT; LARGE PLATELETS PRESENT; OVALOCYTES SLIGHT; POIKILOCYTOSIS SLIGHT; POLYCHROMIC SLIGHT
[2018-10-26 23:22] LABS: BURR CELLS SLIGHT; SCHISTOCYTES SLIGHT
[2018-10-26] MEDS ORDERED: Potassium Chloride 20 mEq ER Tab PO ONE (23:31)
[2018-10-27 00:07] VITALS: O2SAT 96
--- NOTE | 2018-10-27 02:47 | PCM.BM ---
<Freda Villalta - Last Filed: 10/27/18 02:46> Treatment Plan Problems - Problems identified on initial assessmt Depression Date Initiated: 10/27/18 Time Initiated: 02:46 Assessment reference: NA Status: Active SUBSTANCE USE Date Initiated: 10/27/18 Time Initiated: 02:46 Assessment reference: NA Status: Active Treatment assets and liabiliti Patient Assests: cooperative, insightful, self-reliant, ADL independent, negotiates basic needs, cognitively intact Patient Liabilities: live alone, poor support system, relationship conflicts, substance abuse, medical problems - Milieu Protocol Maintain good personal hygiene: daily Encourage regular showers, daily Remind patient to perform daily oral care, daily Assist patient to perform ADL's, every other day Remind patient to perform daily oral care Maintain personal safety: every shift Educate patient to report safety concerns to staff, every shift Monitor environment for contraband/sharps Medication safety: Monitor for expected outcome, potential side effects: every shift, Assess barriers to learning: every shift, Assess readiness for medication education: every shift <Unique Heredia - Last Filed: 10/27/18 11:26> - Diagnosis (1) Major depression, recurrent Status: Acute Interventions: 10/27/18 11:26 * Assess/adjust medications daily and /or as needed * See patient on an individual basis 7x/week to assess symptoms of depression * Monitor for side effects & effectiveness of medications * (2) Alcohol dependence Status: Acute Interventions: 10/27/18 11:26 * Assess 7x/week regarding severity of withdrawal * Educate regarding risks, benefits, side effects and alternatives of medications * Use Motivational Interviewing for abstinence * Use CBT for relapse prevention * Medication management for withdrawal symptoms * Encourage medication assisted treatment * <Tiki Diallo - Last Filed: 10/27/18 13:21> Family Contact Family involvement: Famliy/SO not involved - Goals for Treatment Patient goals for treatment: "I don't know what to do." Discharge/Continuing Care - Education Needs Education Needs: Patient Medication, Patient Coping Skills, Patient Placement options, Patient Community resources - Discharge Discharge Criteria: No longer exhibiting s/s of withdrawal, Reduction of target symptoms Discharge to:: Substance Abuse Rehab - Treatment Team Participation Discussed with Family/SO: No Was Patient/Family/SO present at Treatment Team Meeting: Yes
[2018-10-27] MEDS ORDERED: Albuterol HFA 90 mcg/actuation (8 g) INH PRN (11:26)
[2018-10-27] MEDS ORDERED: Home Med 1 UNIT (Methylprednisolone [Medrol Dose Pack (21 Tabs)] 4 MG) PO SCH (11:30)
[2018-10-27] MEDS: Multiple Vitamins Tab PO SCH (12:34)
[2018-10-27] MEDS: guaiFENesin 600 mg ER Tab PO SCH ×2 (12:35→21:45)
[2018-10-27] MEDS: Pantoprazole 40 mg EC Tab PO SCH (12:36)
--- NOTE | 2018-10-27 15:17 | PCM.PSYCH ---
Initial Psychiatric Evaluation - Initial Psychiatric Evaluation Type of Admission: Voluntary Legal Status: Capacity Chief Complaint (in patient's own words): "I'm depressed" History of Present Illness and Precipitating Events: Patient seen, chart reviewed, case discussed Patient is a 58-year-old single, homeless, unemployed white male with no child who receives his income from [employer] due to his COPD. He is well-known from numerous admissions. The patient presented to the hospital, again, with thoughts of suicide because he is so depressed due to homelessness. He was seen last Saturday as a consult and he was discharged on Saturday. 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 He then got more depressed, which he has been suffering for a long time, and came to our ER on Saturday. The patient has had many episodes of suicidal ideations in the past. The patient feels shaky and depressed about his whole situation. The patient is unable to find transportation and communication with different groups to find a home. The patient states that he has lost all his belongings upon becoming homeless. The patient has only had rough sleep for the last week because of the cold weather. The patient still has interest in his daily activities such as crossword puzzles and watching TV. The patient states that he has been fatigued, lost weight and strength ever since his last stomach surgery in 2013. The patient has feelings of sadness and worthlessness but denies changes in appetite or concentration. The patient also denies any auditory or visual hallucinations. The patient has drunk between 0.5 to 1 pint of vodka and a few beers per day since his mother when he was 19, with his last drink about 10 days ago. The patient had his first drink at age 10. The patient smokes 1 joint of marijuana about 2 times per month and has smoked about half to one pack per day for 45 years. The patient denies heroin or other pill use but admits that he occasionally smokes crack when he drinks. The patient has only seen a psychiatrist when he has been in the hospital, with the last time one week ago due to troubles breathing. Patient is currently being treated with Sertraline for his depressio but he says it is not working He contracts for safety and denies any intention to hurt himself now. He is again future-oriented. He wants help re housing. Pt is shaky but not in clear withdrawal Past Psych History: Major Depressive Disorder recurrent severe. Many psych and detox admissions Past Medical History: Asthma, COPD, HTN, BPH, reflux Family Psych History: Unknown Current Medications: Active Medications Generic Name Dose Route Start Last Admin Trade Name Freq PRN Reason Stop Dose Admin Albuterol 1 puff 10/27/18 11:26 10/27/18 13:44 Ventolin Hfa 90 Mcg/Actuation (8 G) INH 1 puff Q4 PRN Administration Shortness of Breath Azithromycin 250 mg 10/27/18 11:30 Zithromax PO DAILY [facility] Protocol Fluticasone/Vilanterol 1 puff 10/28/18 08:00 Breo Ellipta 200-25 Mcg Inh INH RQD [facility] Folic Acid 1 mg 10/27/18 11:30 10/27/18 12:34 Folic Acid PO 1 mg DAILY [facility] Administration Gabapentin 100 mg 10/27/18 14:00 10/27/18 13:33 Neurontin PO 100 mg TID [facility] Administration Guaifenesin 600 mg 10/27/18 12:00 10/27/18 12:35 Mucinex La PO 600 mg Q12 [facility] Administration Home Med 4 mg 10/27/18 11:30 Methylprednisolone [Medrol Dose Pack (21 Tabs)] PO ASDIR [facility] Home Med 62.5 mcg 10/27/18 11:30 Umeclidinium [place] [Incruse Ellipta] IH DAILY [facility] Lisinopril 10 mg 10/27/18 12:30 10/27/18 13:28 Zestril PO 10 mg DAILY [facility] Administration Mirtazapine 15 mg 10/27/18 22:00 Remeron PO HS [facility] Multivitamins 1 tab 10/27/18 12:00 10/27/18 12:34 Hexavitamin PO 1 tab DAILY [facility] Administration Pantoprazole Sodium 40 mg 10/27/18 12:00 10/27/18 12:36 Protonix Ec Tab PO 40 mg DAILY [facility] Administration Pneumococcal Polyvalent Vaccine 0.5 ml 10/29/18 10:00 Pneumovax 23 Vaccine IM 10/29/18 10:01 .ONCE ONE Sertraline HCl 100 mg 10/27/18 12:00 10/27/18 13:37 Zoloft PO 100 mg DAILY [facility] Administration Tamsulosin HCl 0.4 mg 10/27/18 12:30 10/27/18 13:28 Flomax PO 0.4 mg DAILY [facility] Administration Thiamine HCl 100 mg 10/27/18 12:00 10/27/18 13:37 Vitamin B1 Tab PO 100 mg DAILY [facility] Administration Tiotropium [place] 18 mcg 10/28/18 08:00 Spiriva INH RQ24 [facility] Trazodone HCl 100 mg 10/27/18 11:26 Desyrel PO HS PRN insomnia Past Psychiatric History - Past Psychiatric History Previous Treatment History: Inpatient Pertinent Medical Hx (Current Medical&Sleep Prob, Allergies): Allergies Allergy/AdvReac Type Severity Reaction Status Date / Time No Known Allergies Allergy Verified 10/26/18 18:05 Mirtazapine [Remeron] 15 mg PO HS #30 tab 07/17/18 Pantoprazole [Protonix EC Tab] 40 mg PO DAILY #14 ect 08/06/18 Umeclidinium [place] [Incruse Ellipta] 62.5 mcg IH DAILY #1 inh 08/06/18 Folic Acid 1 mg PO DAILY #30 tab 08/07/18 Montelukast [Singulair] 10 mg PO HS #30 tab 08/07/18 Tamsulosin [Flomax] 0.4 mg PO DAILY #30 cap 08/07/18 Gabapentin [Neurontin] 100 mg PO TID #30 capsule 08/28/18 Lisinopril [Zestril] 10 mg PO DAILY #30 tab 08/28/18 Albuterol Sulfate [Ventolin Hfa] 1 puff IH Q4 PRN 30 Days #1 inhaler 09/10/18 Fluticasone/Vilanterol 200/25 [Breo Ellipta 200-25 Mcg INH] 1 puff INH RQD #0 inhaler 09/25/18 Guaifenesin [Mucinex] 600 mg PO Q12H #28 tab.er.12h 09/25/18 Multivitamins [Hexavitamin] 1 tab PO DAILY tab 09/25/18 Sertraline [Zoloft] 100 mg PO DAILY tab 09/25/18 Thiamine [Vitamin B1 Tab] 100 mg PO DAILY tab 09/25/18 Tiotropium [Spiriva] 18 mcg INH RQ24 cap 09/25/18 traZODone [Desyrel] 100 mg PO HS PRN tab 09/25/18 Azithromycin [Zithromax] 250 mg PO DAILY #6 tab 10/25/18 Escitalopram [Lexapro] 20 mg PO DAILY 30 Days tab 10/25/18 Methylprednisolone [Medrol Dose Pack (21 tabs)] 4 mg PO ASDIR #21 mg 10/25/18 Review of Systems - Neurological Neurological: Tremor - Psychiatric Psychiatric: Abnormal Sleep Pattern, Anhedonia, Anxiety, Behavioral Changes, Change in Appetite, Depression, Difficulty Concentrating, Mood Swings. absent: Hallucinations, Homicidal Ideation, Paranoia, Suicidal Ideation Mental Status Examination - Personal Presentation Personal Presentation: Looks older than stated age - Affect Affect: Constricted - Motor Activity Motor Activity: Calm - Reliability in Providing Information Reliability in Providing Information: Good - Speech Speech: Organized - Mood Mood: Depressed, Anxious - Formal Thought Process Formal Thought Process: No Impairment - Cognitive Functions Orientation: Person, Place, Situation, Time Sensorium: Alert Attention/Concentration: Easily distracted Abstract Thinking: [place] Estimate of Intelligence: Average Judgement: Intact, as evidence by: Insight regarding need for hospitalization Memory: Recent intact, as evidence by: Ability to recall events of the day, Remote intact, as evidenced by: Abilit to recall sig. life events - Risk Risk: Withdrawal, Diminished functioning - Strength & Assets Inventory Strength & Assets Inventory: Cooperative - Limitations Limitations: Living alone DSM 5 DX - DSM 5 DSM 5 Diagnosis: Major Depressive Disorder recurrent severe without psychotic features Alcohol use d/osevere - Recommended/Plan of Treatment Treatment Recommendations and Plan of Treatment: Lexapro for depression No need for detox As need medications All risks, benefits and alternatives of the meds discussed, and the pt agreed and understood. Attend groups and activities Individual therapy daily Psychoeducation and support daily Encourage compliance with meds and after care Refer to outpatient program Teach healthy lifestyle methods, i.e. diet, exercise, meditation Smoking cessation and patch if needed Monitor SI and use safety plan See SW re referrals (CRC and housing) 35 min Projected ELOS: 4-5 days - Smoking Cessation Smoking Cessation Initiated: Yes
[2018-10-28] MEDS: Fluticasone-Vilanterol 200/25mcg Diskus INH SCH (08:19)
[2018-10-28] MEDS: Tiotropium 18 mcg Cap For Inhalation INH SCH (08:38)
[2018-10-28] MEDS: Multiple Vitamins Tab PO SCH (10:22)
[2018-10-28] MEDS: guaiFENesin 600 mg ER Tab PO SCH ×2 (10:22→22:23)
[2018-10-28] MEDS: Pantoprazole 40 mg EC Tab PO SCH (10:23)
--- NOTE | 2018-10-28 13:48 | PCM.PYCHPN ---
Psychiatric Progress Note - Psychiatric Progress Note Patient seen today, length of contact: 16 min Patient Chief Complaint: "I need help!" Problems Identified/Issues Discussed: The pt is seen, chart reviewed, case discussed with staff. The pt is compliant with medications and reports no side-effects. Symptoms are improving but needs more time to stabilize. Pt attends groups and activities. Support given, psycho-education provided. After care discussed. Medication Change: Yes Medical Record Reviewed: Yes Mental Status Examination - Cognitive Function Orientation: Person, Place, Situation, Time Memory: Impaired Attention: Poor Concentration: Poor Association: WNL Fund of Knowledge: WNL - Mood Mood: Depressed, Anxious - Affect Affect: Constricted - Speech Speech: Appropriate - Formal Thought Process Formal Thought Process: No Impairment - Suicidal Ideation Suicidal Ideation: No - Homicidal Ideation Homicidal Ideation: No Goal/Treatment Plan - Goal/Treatment Plan Need for Continued Stay: Discharge may exacerbated symptoms, Severe functional impairment Progress Toward Problem(s) and Goals/Treatment Plan: Lexapro for depression No need for detox As need medications All risks, benefits and alternatives of the meds discussed, and the pt agreed and understood. Attend groups and activities Individual therapy daily Psychoeducation and support daily Encourage compliance with meds and after care Refer to outpatient program Teach healthy lifestyle methods, i.e. diet, exercise, meditation Smoking cessation and patch if needed Monitor SI and use safety plan See SW re referrals (CRC, rehab and housing)
--- NOTE | 2018-10-28 14:43 | CP.PCM.PN ---
Subjective - Date & Time of Evaluation Date of Evaluation: 10/28/18 Time of Evaluation: 08:00 - Subjective Subjective: Medicine Progress Note for Dr. Gonzalez: Patient was seen and examined at bedside. Patient states he has been feeling depressed and having suicidal thoughts. He states he does not have family as he was adopted and only has one close friend who he doesn't see often. Patient denies chest pain, shortness of breath, palpitations, fever, chills, nausea or vomiting. Objective - Vital Signs/Intake and Output Vital Signs (last 24 hours): Temp Pulse Resp BP Pulse Ox 97.6 F 114 H 20 119/80 96 10/28/18 08:14 10/28/18 08:14 10/28/18 08:14 10/28/18 08:14 10/27/18 00:06 - Medications Medications: Current Medications Albuterol (Ventolin Hfa 90 Mcg/Actuation (8 G)) 1 puff INH Q4 PRN PRN Reason: Shortness of Breath Last Admin: 10/27/18 13:44 Dose: 1 puff Escitalopram Oxalate (Lexapro) 20 mg PO DAILY [facility] Last Admin: 10/28/18 11:11 Dose: 20 mg Fluticasone/Vilanterol (Breo Ellipta 200-25 Mcg Inh) 1 puff INH RQD [facility] Last Admin: 10/28/18 08:19 Dose: Not Given Folic Acid (Folic Acid) 1 mg PO DAILY [facility] Last Admin: 10/28/18 10:23 Dose: 1 mg Gabapentin (Neurontin) 100 mg PO TID [facility] Last Admin: 10/28/18 14:31 Dose: Not Given Guaifenesin (Mucinex La) 600 mg PO Q12 [facility] Last Admin: 10/28/18 10:22 Dose: 600 mg Lisinopril (Zestril) 10 mg PO DAILY [facility] Last Admin: 10/28/18 10:22 Dose: 10 mg Mirtazapine (Remeron) 15 mg PO HS [facility] Last Admin: 10/27/18 21:39 Dose: 15 mg Multivitamins (Hexavitamin) 1 tab PO DAILY [facility] Last Admin: 10/28/18 10:22 Dose: 1 tab Pantoprazole Sodium (Protonix Ec Tab) 40 mg PO DAILY [facility] Last Admin: 10/28/18 10:23 Dose: 40 mg Pneumococcal Polyvalent Vaccine (Pneumovax 23 Vaccine) 0.5 ml IM .ONCE ONE Stop: 10/29/18 10:01 Tamsulosin HCl (Flomax) 0.4 mg PO DAILY [facility] Last Admin: 10/28/18 10:21 Dose: 0.4 mg Thiamine HCl (Vitamin B1 Tab) 100 mg PO DAILY [facility] Last Admin: 10/28/18 10:23 Dose: 100 mg Tiotropium [place] (Spiriva) 18 mcg INH RQ24 [facility] Last Admin: 10/28/18 08:38 Dose: 18 mcg Trazodone HCl (Desyrel) 100 mg PO HS PRN PRN Reason: insomnia - Labs Labs: 10/26/18 22:50 10/26/18 22:50 - Constitutional Appears: No Acute Distress - Head Exam Head Exam: ATRAUMATIC, NORMAL INSPECTION - Eye Exam Eye Exam: EOMI, Normal appearance - ENT Exam ENT Exam: Mucous Membranes Moist - Respiratory Exam Respiratory Exam: Wheezes, NORMAL BREATHING PATTERN - Cardiovascular Exam Cardiovascular Exam: REGULAR RHYTHM, +S1, +S2 - GI/Abdominal Exam GI & Abdominal Exam: Soft, Normal Bowel Sounds. absent: Tenderness - Extremities Exam Extremities Exam: Normal Inspection - Neurological Exam Neurological Exam: Alert, Awake, Oriented x3 - Psychiatric Exam Psychiatric exam: Depressed - Skin Skin Exam: Normal Color, Warm Assessment and Plan - Assessment and Plan (Free Text) Assessment: 58 year old male with past medical history of COPD, alcohol abuse was admitted for depression and suicidal thoughts. History of COPD - Prednisone 20mg daily - duonebs PRN Q4H - Spiriva 18mcg INH daily - Singulair 10mg po HS - Breo 200/25 1puff IH RQD - incentive spirometry Depression - Admitted to psych - management per psychiatry All medical management as per Dr. Lisa Del Valle PGY-2
[2018-10-28] MEDS ORDERED: MethylPREDNISolone 40 mg Vial IV SCH (22:00)
[2018-10-29] MEDS ORDERED: Tiotropium 18 mcg Cap For Inhalation INH SCH (08:00)
[2018-10-29] MEDS: Fluticasone-Vilanterol 200/25mcg Diskus INH SCH (08:30)
[2018-10-29] MEDS ORDERED: Potassium Chloride 20 mEq ER Tab PO ONE (09:40)
[2018-10-29] MEDS: Multiple Vitamins Tab PO SCH (09:43)
[2018-10-29] MEDS: Pantoprazole 40 mg EC Tab PO SCH (09:44)
[2018-10-29] MEDS: guaiFENesin 600 mg ER Tab PO SCH ×2 (09:47→21:20)
[2018-10-29] MEDS: Tiotropium 18 mcg Cap For Inhalation INH SCH (09:48)
[2018-10-29] MEDS ORDERED: Pneumococcal 23-Valent Vaccine IM ONE (10:00)
[2018-10-29 11:11] LABS: BASO % 0.3 % (0.0-2.0); EOS % 1.9 % (0.0-4.0); HEMOGLOBIN 11.3 g/dL (12.0-18.0); LYMPH % 23.1 % (20.0-40.0); MEAN CELL VOLUME 80.5 fL (80.0-94.0); MEAN CORPUSCULAR HEMOGLOBIN 26.5 pg (27.0-31.0); MEAN CORPUSCULAR HGB CONC 32.9 g/dL (33.0-37.0); MEAN PLATELET VOLUME 7.9 fL (7.2-11.7); MONO % 5.8 % (0.0-10.0); NEUT # 6.1 K/uL (1.8-7.0); NEUT % 68.9 % (50.0-75.0); RBC 4.25 Mil/uL (4.40-5.90); RED CELL DISTRIBUTION WIDTH 23.8 % (11.5-14.5); WHITE BLOOD COUNT 8.8 K/uL (4.8-10.8)
[2018-10-29 11:12] LABS: EOS # 0.2 K/uL (0.0-0.7); MONO # 0.5 K/uL (0.0-0.8)
[2018-10-29 12:03] LABS: ALB/GLOB RATIO 1.3 (1.0-2.1); ALBUMIN 3.4 g/dL (3.5-5.0); ALT/SGPT 16 U/L (21-72); AST/SGOT 12 U/L (17-59); BLOOD UREA NITROGEN 17 mg/dL (9-20); CALCIUM 8.2 mg/dl (8.6-10.4); GFR NON-AFRICAN AMERICAN > 60
--- NOTE | 2018-10-29 13:54 | CP.PCM.PN ---
Subjective - Date & Time of Evaluation Date of Evaluation: 10/29/18 Time of Evaluation: 09:25 - Subjective Subjective: Medicine Progress Note for Dr. Gonzalez: Patient was seen and examined at bedside. Patient is doing well and currently, without any pulmonary issues. Patient denies any symptoms of fever, chills, cough, chest pain, palpitations or shortness of breath. Objective - Vital Signs/Intake and Output Vital Signs (last 24 hours): Temp Pulse Resp BP Pulse Ox 97.6 F 77 20 130/76 96 10/29/18 06:19 10/29/18 06:19 10/29/18 06:19 10/29/18 06:19 10/27/18 00:06 - Medications Medications: Current Medications Albuterol (Ventolin Hfa 90 Mcg/Actuation (8 G)) 1 puff INH Q4 PRN PRN Reason: Shortness of Breath Last Admin: 10/27/18 13:44 Dose: 1 puff Escitalopram Oxalate (Lexapro) 20 mg PO DAILY [facility] Last Admin: 10/29/18 09:43 Dose: 20 mg Fluticasone/Vilanterol (Breo Ellipta 200-25 Mcg Inh) 1 puff INH RQD [facility] Last Admin: 10/29/18 08:30 Dose: 1 puff Folic Acid (Folic Acid) 1 mg PO DAILY [facility] Last Admin: 10/29/18 09:43 Dose: 1 mg Gabapentin (Neurontin) 100 mg PO TID [facility] Last Admin: 10/29/18 13:15 Dose: 100 mg Guaifenesin (Mucinex La) 600 mg PO Q12 [facility] Last Admin: 10/29/18 09:47 Dose: 600 mg Lisinopril (Zestril) 10 mg PO DAILY [facility] Last Admin: 10/29/18 09:46 Dose: 10 mg Mirtazapine (Remeron) 15 mg PO HS [facility] Last Admin: 10/28/18 22:23 Dose: 15 mg Montelukast Sodium (Singulair) 10 mg PO HS [facility] Last Admin: 10/28/18 22:23 Dose: 10 mg Multivitamins (Hexavitamin) 1 tab PO DAILY [facility] Last Admin: 10/29/18 09:43 Dose: 1 tab Pantoprazole Sodium (Protonix Ec Tab) 40 mg PO DAILY [facility] Last Admin: 10/29/18 09:44 Dose: 40 mg Prednisone (Prednisone Tab) 20 mg PO DAILY [facility] Last Admin: 10/28/18 15:40 Dose: 20 mg Tamsulosin HCl (Flomax) 0.4 mg PO DAILY [facility] Last Admin: 10/29/18 09:46 Dose: 0.4 mg Thiamine HCl (Vitamin B1 Tab) 100 mg PO DAILY [facility] Last Admin: 10/29/18 09:43 Dose: 100 mg Tiotropium [place] (Spiriva) 18 mcg INH RQ24 [facility] Last Admin: 10/29/18 09:48 Dose: 18 mcg Trazodone HCl (Desyrel) 100 mg PO HS PRN PRN Reason: insomnia Last Admin: 10/28/18 22:23 Dose: 100 mg - Labs Labs: 10/29/18 11:06 10/29/18 11:06 - Constitutional Appears: Well, No Acute Distress - Head Exam Head Exam: ATRAUMATIC, NORMAL INSPECTION - Eye Exam Eye Exam: EOMI, Normal appearance - ENT Exam ENT Exam: Mucous Membranes Moist - Respiratory Exam Respiratory Exam: Clear to Ausculation Bilateral, NORMAL BREATHING PATTERN. absent: Chest Wall Tenderness, Prolonged Expiratory Phase, Rhonchi, Wheezes, Respiratory Distress Additional comments: Chronic diffuse expiratory wheezing - Cardiovascular Exam Cardiovascular Exam: REGULAR RHYTHM, +S1, +S2 - GI/Abdominal Exam GI & Abdominal Exam: Soft, Normal Bowel Sounds. absent: Distended, Firm, Guarding, Rigid, Tenderness - Extremities Exam Extremities Exam: Normal Inspection. absent: Calf Tenderness, Pedal Edema - Neurological Exam Neurological Exam: Alert, Awake, Oriented x3 - Psychiatric Exam Psychiatric exam: Depressed - Skin Skin Exam: Normal Color Assessment and Plan - Assessment and Plan (Free Text) Assessment: 58 year old male with past medical history of COPD, alcohol abuse was admitted for depression and suicidal thoughts. Plan: History of COPD - Prednisone 20mg daily - duonebs PRN Q4H - Spiriva 18mcg INH daily - Singulair 10mg po HS - Breo 200/25 1puff IH RQD - incentive spirometry Depression and Suicidal ideation - Admitted to psych - management per psychiatry All medical management as per Dr. Gonzalez
--- NOTE | 2018-10-29 15:25 | PCM.PYCHPN ---
Psychiatric Progress Note - Psychiatric Progress Note Patient seen today, length of contact: 16 min Patient Chief Complaint: "I am very anxious and depressed" Problems Identified/Issues Discussed: The pt is seen, chart reviewed, case discussed with staff. Support and psychoeducation given, CBT and ME used briefly No new symptoms reported, improving slowly and needs more time No SEs from medications, risks discussed. After care discussed - He is resistant to going back to long term, will consider rehab but he also says [facility] is "too [facility]" and so he will try to ask his sponsor to find him a room. Medication Change: Yes (meds adjusted) Medical Record Reviewed: Yes Mental Status Examination - Cognitive Function Orientation: Person, Place, Situation, Time Memory: Impaired Attention: Poor Concentration: Poor Association: WNL Fund of Knowledge: WNL - Mood Mood: Depressed, Anxious - Affect Affect: Constricted - Speech Speech: Appropriate - Formal Thought Process Formal Thought Process: No Impairment - Suicidal Ideation Suicidal Ideation: No - Homicidal Ideation Homicidal Ideation: No Goal/Treatment Plan - Goal/Treatment Plan Need for Continued Stay: Discharge may exacerbated symptoms, Severe functional impairment Progress Toward Problem(s) and Goals/Treatment Plan: Lexapro for depression No need for detox As need medications All risks, benefits and alternatives of the meds discussed, and the pt agreed and understood. Attend groups and activities Individual therapy daily Psychoeducation and support daily Encourage compliance with meds and after care Refer to outpatient program Teach healthy lifestyle methods, i.e. diet, exercise, meditation Smoking cessation and patch if needed Monitor SI and use safety plan See SW re referrals (CRC, rehab and housing)
[2018-10-30 06:28] VITALS: RESP 18
--- NOTE | 2018-10-30 08:09 | PCM.PYCHPN ---
Psychiatric Progress Note - Psychiatric Progress Note Patient seen today, length of contact: 16 min Patient Chief Complaint: "I am not well yet" Problems Identified/Issues Discussed: The pt is seen, chart reviewed, case discussed with staff. The pt is compliant with medications and reports no side-effects. Symptoms are improving but needs more time to stabilize. Pt attends groups and activities. Support given, psycho-education provided. After care discussed. Still not interested in rehab He acknowledges that he lost an apt thru [facility] but wants to try again Medication Change: No Medical Record Reviewed: Yes Mental Status Examination - Cognitive Function Orientation: Person, Place, Situation, Time Memory: Impaired Attention: Poor Concentration: Poor Association: WNL Fund of Knowledge: WNL - Mood Mood: Depressed, Anxious - Affect Affect: Constricted - Speech Speech: Appropriate - Formal Thought Process Formal Thought Process: No Impairment - Suicidal Ideation Suicidal Ideation: No - Homicidal Ideation Homicidal Ideation: No Goal/Treatment Plan - Goal/Treatment Plan Need for Continued Stay: Discharge may exacerbated symptoms, Severe functional impairment Progress Toward Problem(s) and Goals/Treatment Plan: Lexapro for depression No need for detox As need medications All risks, benefits and alternatives of the meds discussed, and the pt agreed and understood. Attend groups and activities Individual therapy daily Psychoeducation and support daily Encourage compliance with meds and after care Refer to outpatient program Teach healthy lifestyle methods, i.e. diet, exercise, meditation Smoking cessation and patch if needed Monitor SI and use safety plan See SW re referrals (CRC, rehab and housing)
[2018-10-30] MEDS: Tiotropium 18 mcg Cap For Inhalation INH SCH (08:21)
[2018-10-30] MEDS: Fluticasone-Vilanterol 200/25mcg Diskus INH SCH (08:22)
[2018-10-30 08:50] LABS: BASO # 0.1 K/uL (0.0-0.2); BASO % 0.6 % (0.0-2.0); EOS # 0.2 K/uL (0.0-0.7); EOS % 1.7 % (0.0-4.0); HEMOGLOBIN 10.9 g/dL (12.0-18.0); LYMPH # 2.1 K/uL (1.0-4.3); LYMPH % 19.9 % (20.0-40.0); MEAN CELL VOLUME 81.7 fL (80.0-94.0); MEAN CORPUSCULAR HEMOGLOBIN 26.6 pg (27.0-31.0); MEAN CORPUSCULAR HGB CONC 32.5 g/dL (33.0-37.0); MEAN PLATELET VOLUME 7.8 fL (7.2-11.7); MONO # 0.3 K/uL (0.0-0.8); NEUT % 74.8 % (50.0-75.0); RBC 4.1 Mil/uL (4.40-5.90); RED CELL DISTRIBUTION WIDTH 24.2 % (11.5-14.5); WHITE BLOOD COUNT 10.7 K/uL (4.8-10.8)
[2018-10-30 09:28] LABS: ALB/GLOB RATIO 1.2 (1.0-2.1); ALBUMIN 3.3 g/dL (3.5-5.0); ALT/SGPT 13 U/L (21-72); AST/SGOT 27 U/L (17-59); BLOOD UREA NITROGEN 20 mg/dL (9-20); CALCIUM 8.2 mg/dl (8.6-10.4); GFR NON-AFRICAN AMERICAN > 60
[2018-10-30] MEDS: Multiple Vitamins Tab PO SCH (09:48)
[2018-10-30] MEDS: Pantoprazole 40 mg EC Tab PO SCH (09:48)
[2018-10-30] MEDS: guaiFENesin 600 mg ER Tab PO SCH ×2 (09:49→21:42)
--- NOTE | 2018-10-30 16:26 | CP.PCM.PN ---
Subjective - Date & Time of Evaluation Date of Evaluation: 10/30/18 Time of Evaluation: 14:05 - Subjective Subjective: Progress Note for Dr. Gonzalez Patient seen and examined at bedside. Patient reports to ambulate around the hernandez without breathing difficulties. He denies having fever, chills, shortness of breath, chest pain, nausea, vomiting, or diarrhea. Objective - Vital Signs/Intake and Output Vital Signs (last 24 hours): Temp Pulse Resp BP Pulse Ox 97.6 F 80 18 117/76 96 10/30/18 06:26 10/30/18 06:26 10/30/18 06:26 10/30/18 06:26 10/27/18 00:06 - Medications Medications: Current Medications Albuterol (Ventolin Hfa 90 Mcg/Actuation (8 G)) 1 puff INH Q4 PRN PRN Reason: Shortness of Breath Last Admin: 10/27/18 13:44 Dose: 1 puff Escitalopram Oxalate (Lexapro) 20 mg PO DAILY [facility] Last Admin: 10/30/18 09:47 Dose: 20 mg Fluticasone/Vilanterol (Breo Ellipta 200-25 Mcg Inh) 1 puff INH RQD [facility] Last Admin: 10/30/18 08:22 Dose: 1 puff Folic Acid (Folic Acid) 1 mg PO DAILY [facility] Last Admin: 10/30/18 09:47 Dose: 1 mg Gabapentin (Neurontin) 100 mg PO TID [facility] Last Admin: 10/30/18 14:10 Dose: 100 mg Guaifenesin (Mucinex [place]) 600 mg PO Q12 [facility] Last Admin: 10/30/18 09:49 Dose: 600 mg Lisinopril (Zestril) 10 mg PO DAILY [facility] Last Admin: 10/30/18 09:48 Dose: 10 mg Mirtazapine (Remeron) 15 mg PO HS [facility] Last Admin: 10/29/18 21:20 Dose: 15 mg Montelukast Sodium (Singulair) 10 mg PO HS [facility] Last Admin: 10/29/18 21:19 Dose: 10 mg Multivitamins (Hexavitamin) 1 tab PO DAILY [facility] Last Admin: 10/30/18 09:48 Dose: 1 tab Pantoprazole Sodium (Protonix Ec Tab) 40 mg PO DAILY [facility] Last Admin: 12/06/18 09:48 Dose: 40 mg Prednisone (Prednisone Tab) 20 mg PO DAILY [facility] Last Admin: 10/30/18 09:48 Dose: 20 mg Tamsulosin HCl (Flomax) 0.4 mg PO DAILY [facility] Last Admin: 10/30/18 09:47 Dose: 0.4 mg Thiamine HCl (Vitamin B1 Tab) 100 mg PO DAILY [facility] Last Admin: 10/30/18 09:48 Dose: 100 mg Tiotropium [place] (Spiriva) 18 mcg INH RQ24 [facility] Last Admin: 10/30/18 08:21 Dose: 18 mcg Trazodone HCl (Desyrel) 100 mg PO HS PRN PRN Reason: insomnia Last Admin: 10/29/18 21:19 Dose: 100 mg - Labs Labs: 10/30/18 08:44 10/30/18 08:44 - Additional Findings Additional findings: - Constitutional Appears: Well, No Acute Distress - Head Exam Head Exam: ATRAUMATIC, NORMAL INSPECTION - Eye Exam Eye Exam: EOMI, Normal appearance - ENT Exam ENT Exam: Mucous Membranes Moist - Respiratory Exam Respiratory Exam: NORMAL BREATHING PATTERN. absent: Chest Wall Tenderness, Prolonged Expiratory Phase, Rhonchi, Respiratory Distress Additional comments: Chronic diffuse expiratory wheezing - Cardiovascular Exam Cardiovascular Exam: REGULAR RHYTHM, +S1, +S2 - GI/Abdominal Exam GI & Abdominal Exam: Soft, Normal Bowel Sounds. absent: Distended, Firm, Guarding, Rigid, Tenderness - Extremities Exam Extremities Exam: Normal Inspection. absent: Calf Tenderness, Pedal Edema - Neurological Exam Neurological Exam: Alert, Awake, Oriented x3 - Psychiatric Exam Psychiatric exam: Depressed - Skin Skin Exam: Normal Color Assessment and Plan - Assessment and Plan (Free Text) Assessment: History of COPD - Currently stable - Prednisone 20mg daily - duonebs PRN Q4H - Spiriva 18mcg INH daily - Singulair 10mg po HS - Breo 200/25 1puff IH RQD - incentive spirometry Depression and Suicidal ideation - Admitted to psych - management per psychiatry All medical management as per Dr. Gonzalez
[2018-10-31 06:43] VITALS: BP 113/72; PULSE 91; TEMP 97.2
--- NOTE | 2018-10-31 07:53 | CP.PCM.PN ---
Subjective - Date & Time of Evaluation Date of Evaluation: 10/31/18 Time of Evaluation: 07:53 - Subjective Subjective: Resident progress note for Dr. Gonzalez Patient seen and examined at bedside. No acute events reported overnight. Patient admits to smoking 2-3 packs of cigarettes daily since 10 years old. He is determined to cut down on smoking to improve his health. He denies fever, chills, headache, shortness of breath, chest pain, nausea, vomiting, or diarrhea. Objective - Vital Signs/Intake and Output Vital Signs (last 24 hours): Temp Pulse Resp BP Pulse Ox 97.2 F L 91 H 18 113/72 96 10/31/18 06:42 10/31/18 06:42 10/31/18 06:42 10/31/18 06:42 10/27/18 00:06 - Medications Medications: Current Medications Albuterol (Ventolin Hfa 90 Mcg/Actuation (8 G)) 1 puff INH Q4 PRN PRN Reason: Shortness of Breath Last Admin: 10/27/18 13:44 Dose: 1 puff Escitalopram Oxalate (Lexapro) 20 mg PO DAILY [facility] Last Admin: 10/30/18 09:47 Dose: 20 mg Fluticasone/Vilanterol (Breo Ellipta 200-25 Mcg Inh) 1 puff INH RQD [facility] Last Admin: 10/30/18 08:22 Dose: 1 puff Folic Acid (Folic Acid) 1 mg PO DAILY [facility] Last Admin: 10/30/18 09:47 Dose: 1 mg Gabapentin (Neurontin) 100 mg PO TID [facility] Last Admin: 10/30/18 16:59 Dose: 100 mg Guaifenesin (Mucinex [place]) 600 mg PO Q12 [facility] Last Admin: 10/30/18 21:42 Dose: 600 mg Lisinopril (Zestril) 10 mg PO DAILY [facility] Last Admin: 10/30/18 09:48 Dose: 10 mg Mirtazapine (Remeron) 15 mg PO HS [facility] Last Admin: 10/30/18 21:36 Dose: 15 mg Montelukast Sodium (Singulair) 10 mg PO HS [facility] Last Admin: 10/30/18 21:36 Dose: 10 mg Multivitamins (Hexavitamin) 1 tab PO DAILY [facility] Last Admin: 10/30/18 09:48 Dose: 1 tab Pantoprazole Sodium (Protonix Ec Tab) 40 mg PO DAILY [facility] Last Admin: 10/30/18 09:48 Dose: 40 mg Prednisone (Prednisone Tab) 20 mg PO DAILY [facility] Last Admin: 10/30/18 09:48 Dose: 20 mg Tamsulosin HCl (Flomax) 0.4 mg PO DAILY [facility] Last Admin: 10/30/18 09:47 Dose: 0.4 mg Thiamine HCl (Vitamin B1 Tab) 100 mg PO DAILY [facility] Last Admin: 10/30/18 09:48 Dose: 100 mg Tiotropium [place] (Spiriva) 18 mcg INH RQ24 [facility] Last Admin: 10/30/18 08:21 Dose: 18 mcg Trazodone HCl (Desyrel) 100 mg PO HS PRN PRN Reason: insomnia Last Admin: 10/30/18 21:36 Dose: 100 mg - Labs Labs: 10/30/18 08:44 10/30/18 08:44 - Additional Findings Additional findings: - Constitutional Appears: Well, No Acute Distress - Head Exam Head Exam: ATRAUMATIC, NORMAL INSPECTION - Eye Exam Eye Exam: EOMI, Normal appearance - ENT Exam ENT Exam: Mucous Membranes Moist - Respiratory Exam Respiratory Exam: NORMAL BREATHING PATTERN. absent: Chest Wall Tenderness, Prolonged Expiratory Phase, Rhonchi, Respiratory Distress Additional comments: Chronic diffuse expiratory wheezing - Cardiovascular Exam Cardiovascular Exam: REGULAR RHYTHM, +S1, +S2 - GI/Abdominal Exam GI & Abdominal Exam: Soft, Normal Bowel Sounds. absent: Distended, Firm, Guarding, Rigid, Tenderness - Extremities Exam Extremities Exam: Normal Inspection. absent: Calf Tenderness, Pedal Edema - Neurological Exam Neurological Exam: Alert, Awake, Oriented x3 - Psychiatric Exam Psychiatric exam: Depressed - Skin Skin Exam: Normal Color Assessment and Plan - Assessment and Plan (Free Text) Assessment: History of COPD - Currently stable - Prednisone 20mg daily - duonebs PRN Q4H - Spiriva 18mcg INH daily - Singulair 10mg po HS - Breo 200/25 1puff IH RQD - incentive spirometry - Educated patient on smoking cessation Depression and Suicidal ideation - Admitted to psych - management per psychiatry Dispo: Medically stable to be discharged. Follow up with Dr. Gonzalez as outpatient for further pulmonary care. All medical management as per Dr. Gonzalez
[2018-10-31] MEDS: Fluticasone-Vilanterol 200/25mcg Diskus INH SCH (08:08)
[2018-10-31] MEDS: Tiotropium 18 mcg Cap For Inhalation INH SCH (08:09)
[2018-10-31 08:39] LABS: BASO # 0.1 K/uL (0.0-0.2); BASO % 0.5 % (0.0-2.0); EOS # 0.2 K/uL (0.0-0.7); EOS % 1.6 % (0.0-4.0); HEMOGLOBIN 10.8 g/dL (12.0-18.0); LYMPH # 2.5 K/uL (1.0-4.3); LYMPH % 24.4 % (20.0-40.0); MEAN CELL VOLUME 82.1 fL (80.0-94.0); MEAN CORPUSCULAR HEMOGLOBIN 26.6 pg (27.0-31.0); MEAN CORPUSCULAR HGB CONC 32.4 g/dL (33.0-37.0); MEAN PLATELET VOLUME 8.4 fL (7.2-11.7); MONO # 0.5 K/uL (0.0-0.8); NEUT # 6.9 K/uL (1.8-7.0); NEUT % 68.5 % (50.0-75.0); RBC 4.06 Mil/uL (4.40-5.90); RED CELL DISTRIBUTION WIDTH 24.2 % (11.5-14.5); WHITE BLOOD COUNT 10.1 K/uL (4.8-10.8)
[2018-10-31 09:00] LABS: ALB/GLOB RATIO 1.2 (1.0-2.1); ALBUMIN 3.5 g/dL (3.5-5.0); ALT/SGPT 16 U/L (21-72); AST/SGOT 32 U/L (17-59); BLOOD UREA NITROGEN 18 mg/dL (9-20); CALCIUM 8.4 mg/dl (8.6-10.4); GFR NON-AFRICAN AMERICAN > 60
[2018-10-31] MEDS: Multiple Vitamins Tab PO SCH (09:39)
[2018-10-31] MEDS: guaiFENesin 600 mg ER Tab PO SCH (09:39)
[2018-10-31] MEDS: Pantoprazole 40 mg EC Tab PO SCH (09:39)
--- NOTE | 2018-10-31 10:26 | PCM.PYCHDC ---
Mental Status Examination - Mental Status Examination Orientation: Person, Place, Situation, Time Memory: Intact Mood: Neutral Affect: Constricted Speech: Soft Attention: WNL Concentration: WNL Association: WNL Fund of Knowledge: WNL Formal Thought Process: No Impairment Description of patient's judgement and insight: good, fair Psychotic Thoughts and Behaviors: denies any AVH Suicidal Ideation: No Current Homicidal Ideation?: No Discharge Summary - Discharge Note Reason for Hospitalization: Patient is a 58-year-old single, homeless, unemployed white male with no child who receives his income from [employer] due to his COPD. He is well-known from numerous admissions. The patient presented to the hospital, again, with thoughts of suicide because he is so depressed due to homelessness. He was seen last Saturday as a consult and he was discharged on Saturday. 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 He then got more depressed, which he has been suffering for a long time, and came to our ER on Saturday. The patient has had many episodes of suicidal ideations in the past. The patient feels shaky and depressed about his whole situation. The patient is unable to find transportation and communication with different groups to find a home. The patient states that he has lost all his belongings upon becoming homeless. The patient has only had rough sleep for the last week because of the cold weather. The patient still has interest in his daily activities such as crossword puzzles and watching TV. The patient states that he has been fatigued, lost weight and strength ever since his last stomach surgery in 2013. The patient has feelings of sadness and worthlessness but denies changes in appetite or concentration. The patient also denies any auditory or visual hallucinations. The patient has drunk between 0.5 to 1 pint of vodka and a few beers per day since his mother when he was 19, with his last drink about 10 days ago. The patient had his first drink at age 10. The patient smokes 1 joint of marijuana about 2 times per month and has smoked about half to one pack per day for 45 years. The patient denies heroin or other pill use but admits that he occasionally smokes crack when he drinks. The patient has only seen a psychiatrist when he has been in the hospital, with the last time one week ago due to troubles breathing. Patient is currently being treated with Sertraline for his depressio but he says it is not working He contracts for safety and denies any intention to hurt himself now. He is again future-oriented. He wants help re housing. Pt is shaky but not in clear withdrawal Past Psych History: Major Depressive Disorder recurrent severe. Many psych and detox admissions Past Medical History: Asthma, COPD, HTN, BPH, reflux Family Psych History: Unknown Laboratory Data: Abnormal Lab Results 10/31/18 10/31/18 08:29 08:29 WBC 10.1 RBC 4.06 L Hgb 10.8 L Hct 33.4 L MCV 82.1 MCH 26.6 L MCHC 32.4 L RDW 24.2 H Plt Count 282 MPV 8.4 Neut % (Auto) 68.5 Lymph % (Auto) 24.4 [place] % (Auto) 5.0 Eos % (Auto) 1.6 Baso % (Auto) 0.5 Neut # (Auto) 6.9 Lymph # (Auto) 2.5 [place] # (Auto) 0.5 Eos # (Auto) 0.2 Baso # (Auto) 0.1 Sodium 135 Potassium 4.6 Chloride 97 L Carbon Dioxide 29 Anion Gap 13 BUN 18 Creatinine 0.7 L Est GFR ( Amer) > 60 Est GFR (Non-Af Amer) > 60 Random Glucose 86 Calcium 8.4 L Total Bilirubin 0.5 AST 32 ALT 16 L D Alkaline Phosphatase 37 L Total Protein 6.3 Albumin 3.5 Globulin 2.8 Albumin/Globulin Ratio 1.2 Consultations:: List each consultation separately and include: 1. Reason for request. 2. Findings. 3. Follow-up Summary of Hospital Course include:: 1. Description of specific treatment plan utilized for patients during their course of treatmen. 2. Summarize the time- course for resolution of acute symptoms and/or regressed behaviors. 3. Describe issues identified and worked on during hospitalization. 4. Describe medication utilized. 5. Describe medical problems identified and treated. 6. Reassessment of suicide risk - Diagnosis (1) Major depression, recurrent Current Visit: Yes Status: Acute (2) Alcohol dependence Current Visit: No Status: Acute - Final Diagnosis (DSM 5) Condition upon Discharge: STABLE DSM 5: Major Depressive Disorder recurrent severe without psychotic features Alcohol use d/osevere Disposition: HOME/ ROUTINE Prescriptions/Medication Reconciliation: Albuterol Sulfate [Ventolin Hfa] 1 puff IH Q4 PRN 30 Days #1 inhaler PRN Reason: Shortness Of Breath Azithromycin [Zithromax] 250 mg PO DAILY #14 tab Escitalopram [Lexapro] 20 mg PO DAILY #30 tab Fluticasone/Vilanterol 200/25 [Breo Ellipta 200-25 Mcg INH] 1 puff INH RQD #1 inhaler Gabapentin [Neurontin] 100 mg PO BID #60 capsule Lisinopril [Zestril] 10 mg PO DAILY #30 tab Mirtazapine [Remeron] 15 mg PO HS #30 tab Montelukast [Singulair] 10 mg PO HS #30 tab Tamsulosin [Flomax] 0.4 mg PO DAILY #30 cap Tiotropium [Spiriva] 18 mcg INH RQ24 #30 cap Tiotropium [place] Inhaler [Spiriva Inhalation Handihaler Device] 1 inhaler INH BID #1 inhaler traZODone [Desyrel] 100 mg PO HS PRN #30 tab PRN Reason: insomnia
== END 2018-10-31 11:30 | disposition home or self-care (01) | DRG 430 ==
LOC: C.ER 17:41 → C.5E 10-27 00:27
PROC: GZHZZZZ Group Psychotherapy (ICD-10-PCS; principal; 2018-10-27)
PROC: HZ52ZZZ Individual Psychotherapy for Substance Abuse Treatment, Cognitive-Behavioral (ICD-10-PCS; 2018-10-27)
PROC: HZ59ZZZ Individual Psychotherapy for Substance Abuse Treatment, Supportive (ICD-10-PCS; 2018-10-27)
PROC: HZ56ZZZ Individual Psychotherapy for Substance Abuse Treatment, Psychoeducation (ICD-10-PCS; 2018-10-27)
PROC: HZ42ZZZ Group Counseling for Substance Abuse Treatment, Cognitive-Behavioral (ICD-10-PCS; 2018-10-27)
PROC: HZ46ZZZ Group Counseling for Substance Abuse Treatment, Psychoeducation (ICD-10-PCS; 2018-10-27)
PROC: GZ58ZZZ Individual Psychotherapy, Cognitive-Behavioral (ICD-10-PCS; 2018-10-27)
PROC: GZ56ZZZ Individual Psychotherapy, Supportive (ICD-10-PCS; 2018-10-27)
DX: F33.2 Major depressive disorder, recurrent severe without psychotic features (principal); J44.9 Chronic obstructive pulmonary disease, unspecified; F14.90 Cocaine use, unspecified, uncomplicated; F10.220 Alcohol dependence with intoxication, uncomplicated; Y90.3 Blood alcohol level of 60-79 mg/100 ml; Z59.0 Homelessness; I10 Essential (primary) hypertension; N40.0 Benign prostatic hyperplasia without lower urinary tract symptoms; K21.9 Gastro-esophageal reflux disease without esophagitis; R45.851 Suicidal ideations; F12.90 Cannabis use, unspecified, uncomplicated; F17.210 Nicotine dependence, cigarettes, uncomplicated

== ENCOUNTER 2018-11-01 02:15 | Emergency (ER) | payer MEDICAID ==
[2018-11-01 02:15] VITALS: BMI 23.5
--- NOTE | 2018-11-01 02:49 | C.PDOC ---
History Of Present Illness Patient found on the street unresponsive, 4ml intranasal narcan given, patient now aaox3. Denies suicidal ideation or homicidal ideation. Time Seen by Provider: 11/01/18 02:46 Chief Complaint (Nursing): Substance Abuse History Per: Patient History/Exam Limitations: no limitations Onset/Duration Of Symptoms: Hrs Current Symptoms Are (Timing): Still Present Suicide/Self Injury Attempted (Context): None Modifying Factor(s): Other (Heroin) Severity: None Pain Scale Rating Of: 0 Associated Symptoms: denies: Suicidal Thoughts, Other (Homicidal ideation) Involuntary Hold By: None Recent travel outside of the [place]: No Past Medical History Reviewed: Historical Data, Nursing Documentation, Vital Signs Vital Signs: Last Vital Signs Temp Pulse Resp 18 11/01/18 02:29 BP Pulse Ox 96 11/01/18 02:29 - Medical History PMH: Anxiety, Asthma, Bronchitis, COPD, Depression, Gastrointestinal Ulcer, HTN, Pneumonia Denies: Diabetes, Hepatitis, HIV, Chronic Kidney Disease, Seizures, Sexually Transmitted Disease Surgical History: Appendectomy, Tonsillectomy - [facility] Procedures CONTR ABD ARTERIOGRM NEC (05/20/07) DETOXIFICATION SERVICES FOR SUBSTANCE ABUSE TREATMENT (09/12/18) ESOPHAGOGASTRODUODENOSCOPY [EGD] W/CLOSED BIOPSY (05/20/07) EXCISION OF LOWER ESOPHAGUS, ENDO, DIAGN (05/21/17) EXTIRPATION OF MATTER FROM LOWER ESOPHAGUS, ENDO (05/21/17) GROUP ORDNANCE ARTIFICER HELPER FOR SUBSTANCE ABUSE TREATMENT, PSYCHOEDUCATION (05/05/18) GROUP ORDNANCE ARTIFICER HELPER FOR SUBSTANCE ABUSE, COGNITIVE BEHAVIORAL (05/05/18) GROUP PSYCHOTHERAPY (07/14/18) INDIV ORDNANCE ARTIFICER HELPER FOR SUBSTANCE ABUSE TREATMENT, PSYCHOEDUCATION (01/14/17) INDIV ORDNANCE ARTIFICER HELPER FOR SUBSTANCE ABUSE, COGNITIVE BEHAVIORAL (01/14/17) INDIV PSYCHOTHERAPY FOR SUBSTANCE ABUSE TREATMENT, SUPPORT (07/14/18) INDIV PSYCHOTHERAPY FOR SUBSTANCE ABUSE, COGNITIV BEHAVIORAL (05/05/18) INDIV PSYCHOTHERAPY FOR SUBSTANCE ABUSE, PSYCHOEDUCATION (07/14/18) INDIVIDUAL PSYCHOTHERAPY, COGNITIVE-BEHAVIORAL (05/05/18) INDIVIDUAL PSYCHOTHERAPY, SUPPORTIVE (05/05/18) INJECT/INFUSE NEC (03/20/12) MEDICATION MANAGEMENT (03/12/17) MEDS MGMT FOR SUBSTANCE ABUSE TREATMENT, OTH REPL MED (03/12/17) Family History: States: No Known Family Hx - Social History Hx Tobacco Use: Yes Hx Alcohol Use: Yes Hx Substance Use: No - Immunization History Hx Tetanus Toxoid Vaccination: No Hx Influenza Vaccination: Yes Hx Pneumococcal Vaccination: Yes Review Of Systems Constitutional: Negative for: Fever, Chills Cardiovascular: Negative for: Chest Pain, Palpitations Respiratory: Negative for: Cough, Shortness of Breath Gastrointestinal: Negative for: Nausea, Vomiting Psych: Negative for: Suicidal ideation, Other (Homicidal ideation) Physical Exam - Physical Exam Appears: Non-toxic, Other (No sign of injury) Skin: Warm, Dry Head: Normacephalic Oral Mucosa: Moist Chest: Symmetrical, No Tenderness Cardiovascular: Rhythm Regular Respiratory: No Rales, No Rhonchi, No Wheezing Gastrointestinal/Abdominal: Soft, No Tenderness Neurological/Psych: Oriented x3 ED Course And Treatment O2 Sat by Pulse Oximetry: 96 Disposition Counseled Patient/Family Regarding: Studies Performed, Diagnosis, Need For Followup - Disposition Referrals: Non [facility] Provider, [Primary Care Provider] - Disposition: HOME/ ROUTINE Disposition Time: 02:46 Condition: FAIR Instructions: Narcotic Overdose (DC) Forms: [employer] (Russian) - Clinical Impression Clinical Impression: Accidental heroin overdose - Scribe Statement The provider has reviewed the documentation as recorded by the Scribkeri Gamboa All medical record entries made by the Scribe were at my direction and personally dictated by me. I have reviewed the chart and agree that the record accurately reflects my personal performance of the history, physical exam, medical decision making, and the department course for this patient. I have also personally directed, reviewed, and agree with the discharge instructions and disposition.
[2018-11-01] MEDS ORDERED: Naloxone 0.4 mg/ml Inj (Adult) IVP ONE (05:28)
[2018-11-01] MEDS ORDERED: Naloxone 0.4 mg/ml Inj (Adult) ONE (05:38)
[2018-11-01 05:45] VITALS: BP 101/51; PULSE 95; RESP 14; TEMP 98.4; O2SAT 100
== END 2018-11-01 06:45 | disposition home or self-care (01) ==
LOC: C.ER 02:15 → SUPCPDRO 02:15 → C.ER 06:45
DX: T40.1X1A Poisoning by heroin, accidental (unintentional), initial encounter (principal); I10 Essential (primary) hypertension; Z72.0 Tobacco use
CPT/HCPCS: 96374; 99285; J2310

== ENCOUNTER 2018-11-05 17:19 | Inpatient (IN) | payer MEDICAID ==
[2018-11-05 17:19] VITALS: BMI 23.5
[2018-11-05] MEDS ORDERED: Albuterol 0.083% Inhal Sol (2.5 mg/3 mL) UD IH STA (18:36)
[2018-11-05] MEDS ORDERED: Albuterol-Ipratrop 3 mg / 0.5 (3 ml) UD IH STA (18:36)
[2018-11-05] MEDS ORDERED: Albuterol-Ipratrop 3 mg / 0.5 (3 ml) UD ONE (19:01)
[2018-11-05 19:13] LABS: BASO # 0.1 K/uL (0.0-0.2); BASO % 0.4 % (0.0-2.0); EOS # 0.1 K/uL (0.0-0.7); EOS % 0.6 % (0.0-4.0); HEMOGLOBIN 10.7 g/dL (12.0-18.0); LYMPH # 1.3 K/uL (1.0-4.3); MEAN CELL VOLUME 80.8 fL (80.0-94.0); MEAN CORPUSCULAR HGB CONC 32.2 g/dL (33.0-37.0); MEAN PLATELET VOLUME 7.7 fL (7.2-11.7); MONO # 0.8 K/uL (0.0-0.8); MONO % 5.8 % (0.0-10.0); NEUT # 11.1 K/uL (1.8-7.0); RBC 4.13 Mil/uL (4.40-5.90); RED CELL DISTRIBUTION WIDTH 24.1 % (11.5-14.5); WHITE BLOOD COUNT 13.3 K/uL (4.8-10.8)
[2018-11-05 19:15] LABS: NEUT % 83.2 % (50.0-75.0)
--- NOTE | 2018-11-05 19:24 | C.PDOC ---
History Of Present Illness 58 year old male, whose past medical history includes COPD and homelessness, presents to the ED for psychiatric evaluation. Patient was recently admitted for COPD exacerbation, was discharged and then re-admitted a couple days afterwards after he expressed suicidal ideation. Patient was discharged on 10/31. Patient states he has not had the chance to follow up with his outpatient referrals. Patient states he is depressed, and is thinking of jumping on front of a car. He also reports shortness of breath and states he cannot carry his belongings around. Patient has been using albuterol inhaler without relief, and is requesting re-admission. He denies homicidal ideation. Time Seen by Provider: 11/05/18 18:02 Chief Complaint (Nursing): Psychiatric Evaluation History Per: Patient History/Exam Limitations: no limitations Onset/Duration Of Symptoms: Hrs Current Symptoms Are (Timing): Still Present Suicide/Self Injury Attempted (Context): None Associated Symptoms: Suicidal Thoughts Additional History Per: Patient Past Medical History Reviewed: Historical Data, Nursing Documentation, Vital Signs Vital Signs: Last Vital Signs Temp 98.1 F 11/05/18 18:40 Pulse 109 H 11/05/18 18:40 Resp 20 11/05/18 18:40 BP 143/82 11/05/18 18:40 Pulse Ox 98 11/05/18 18:40 - Medical History PMH: Anxiety, Asthma, Bronchitis, COPD, Depression, Gastrointestinal Ulcer, HTN, Pneumonia Denies: Diabetes, Hepatitis, HIV, Chronic Kidney Disease, Seizures, Sexually Transmitted Disease Surgical History: Appendectomy, Tonsillectomy - [facility] Procedures CONTR ABD ARTERIOGRM NEC (05/20/07) DETOXIFICATION SERVICES FOR SUBSTANCE ABUSE TREATMENT (09/12/18) ESOPHAGOGASTRODUODENOSCOPY [EGD] W/CLOSED BIOPSY (05/20/07) EXCISION OF LOWER ESOPHAGUS, ENDO, DIAGN (05/21/17) EXTIRPATION OF MATTER FROM LOWER ESOPHAGUS, ENDO (05/21/17) GROUP SLIDE MAKER FOR SUBSTANCE ABUSE TREATMENT, PSYCHOEDUCATION (10/27/18) GROUP SLIDE MAKER FOR SUBSTANCE ABUSE, COGNITIVE BEHAVIORAL (10/27/18) GROUP PSYCHOTHERAPY (10/27/18) INDIV SLIDE MAKER FOR SUBSTANCE ABUSE TREATMENT, PSYCHOEDUCATION (01/14/17) INDIV SLIDE MAKER FOR SUBSTANCE ABUSE, COGNITIVE BEHAVIORAL (01/14/17) INDIV PSYCHOTHERAPY FOR SUBSTANCE ABUSE TREATMENT, SUPPORT (10/27/18) INDIV PSYCHOTHERAPY FOR SUBSTANCE ABUSE, COGNITIV BEHAVIORAL (10/27/18) INDIV PSYCHOTHERAPY FOR SUBSTANCE ABUSE, PSYCHOEDUCATION (10/27/18) INDIVIDUAL PSYCHOTHERAPY, COGNITIVE-BEHAVIORAL (10/27/18) INDIVIDUAL PSYCHOTHERAPY, SUPPORTIVE (10/27/18) INJECT/INFUSE NEC (03/20/12) MEDICATION MANAGEMENT (03/12/17) MEDS MGMT FOR SUBSTANCE ABUSE TREATMENT, OTH REPL MED (03/12/17) Family History: States: Unknown Family Hx - Social History Hx Tobacco Use: Yes Hx Alcohol Use: Yes Hx Substance Use: Yes - Immunization History Hx Tetanus Toxoid Vaccination: No Hx Influenza Vaccination: Yes Hx Pneumococcal Vaccination: Yes Review Of Systems Respiratory: Positive for: Shortness of Breath Psych: Positive for: Depression, Suicidal ideation Physical Exam - Physical Exam Appears: Non-toxic, No Acute Distress Skin: Normal Color, Warm, Dry Head: Atraumatic, Normacephalic Eye(s): bilateral: Normal Inspection Oral Mucosa: Moist Neck: Supple Chest: Symmetrical, No Deformity, No Tenderness Cardiovascular: Rhythm Regular, No Murmur, Other (tachycardic ) Respiratory: No Rales, No Rhonchi, Wheezing (diffuse inspiratory and expiratory ), Other (cough noted, O2 saturation of 89-91% on room air) Extremity: Normal ROM, Capillary Refill (less than 2 seconds ) Neurological/Psych: Oriented x3, Normal Speech, Normal Cognition ED Course And Treatment - Laboratory Results Result Diagrams: 11/05/18 19:10 11/05/18 19:10 Lab Interpretation: Abnormal (WBC 13.3 with left shift on diff.) O2 Sat by Pulse Oximetry: 98 Pulse Ox Interpretation: Normal Progress Note: Bloodwork and CXR ordered and reviewed. Albuterol INH and Solu- Medrol IVP given. Reevaluation Time: 20:09 Reassessment Condition: Improved (Pulse ox 95% on RA, patient resting comfortably) - Physician Consult Information Time Consulting Physician Contacted: 20:10 Physician Contacted: Dino Gonzalez Outcome Of Conversation: he will accept care of the patient for admission for exacerbation of COPD and social service evaluation for placement services. Disposition - Disposition Disposition: HOSPITALIZED Disposition Time: 20:10 Condition: IMPROVED - POA Present On Arrival: None - Clinical Impression Clinical Impression: COPD exacerbation, Major depressive disorder with current active episode, Homelessness - Scribe Statement The provider has reviewed the documentation as recorded by the Scribe (Veronica Clay) Provider Attestation: All medical record entries made by the Scribe were at my direction and personally dictated by me. I have reviewed the chart and agree that the record accurately reflects my personal performance of the history, physical exam, medical decision making, and the department course for this patient. I have also personally directed, reviewed, and agree with the discharge instructions and disposition.
[2018-11-05 19:36] LABS: ALB/GLOB RATIO 1.3 (1.0-2.1); ALBUMIN 3.7 g/dL (3.5-5.0); ALT/SGPT 68 U/L (21-72); AST/SGOT 55 U/L (17-59); BLOOD UREA NITROGEN 11 mg/dL (9-20); CALCIUM 8.8 mg/dl (8.6-10.4); GFR NON-AFRICAN AMERICAN > 60
[2018-11-05 20:42] LABS: ABG ALLEN TEST YES; ARTERIAL BLOOD GAS HCO3 31.4 mmol/L (21-28); ARTERIAL BLOOD GAS HEMOGLOBIN 9.6 g/dL (11.7-17.4); ARTERIAL BLOOD GAS O2 SAT 98.4 % (95-98); ARTERIAL BLOOD GAS PCO2 44 mm/Hg (35-45); ARTERIAL BLOOD GAS PH 7.48 (7.35-7.45); ARTERIAL BLOOD GAS PO2 94 mm/Hg (80-100); ARTERIAL BLOOD GAS TCO2 34.2 mmol/L (22-28)
[2018-11-06] MEDS: Albuterol-Ipratrop 3 mg / 0.5 (3 ml) UD INH SCH ×6 (01:30→19:20)
[2018-11-06] MEDS: MethylPREDNISolone 40 mg Vial IVP SCH ×2 (09:06→22:14)
[2018-11-06] MEDS: Enoxaparin 40 mg Syringe SC SCH (09:06)
--- NOTE | 2018-11-06 10:03 | RAD ---
Chest x-ray single frontal view History: Shortness of breath. Comparison: None available. Findings: Hyperinflation of the lung correia. No focal infiltrate or effusion. Small nodular density at the lateral aspect of the right lung base may represent confluence of shadows with ribs and vessels versus osseous injury of a right lower lateral rib versus additional etiology. Clinical correlation. Correlation with chest CT may be helpful clinically indicated. Small nodular density at the right lung apex. Heart size within normal limits. Bilateral hilar prominence. Degenerative changes in the spine and shoulders. Postsurgical changes of the distal left clavicle. Impression: Hyperinflation of the lung correia. No focal infiltrate or effusion. Small nodular density at the lateral aspect of the right lung base may represent confluence of shadows with ribs and vessels versus osseous injury of a right lower lateral rib versus additional etiology. Clinical correlation. Correlation with chest CT may be helpful clinically indicated. Small nodular density at the right lung apex. Bilateral hilar prominence.
--- NOTE | 2018-11-06 12:53 | CP.PCM.PN ---
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 Patient is well known to the medical team, he was most recently discharged on 11/10/18. Patient states he has not follow up with referrals since the discharge. Patient states that his coughing and shortness became worse to the point where he cannot carry his belongings. He also reports to feel very depressed. He used Albuterol without relief before coming to the hospital. Currently he denies fever, chills, dizziness, chest pain, nausea, vomiting or diarrhea. 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 PMHx: COPD, depression, alcohol abuse PSHx: 3 surgeries related to peptic ulcer disease/ perforated ulcer FamHx: unknown, adopted SocialHx: Current smoker, been smoking since age 10; denies recent drug use Objective - Vital Signs/Intake and Output Vital Signs (last 24 hours): Temp Pulse Resp BP Pulse Ox 98.0 F 83 20 129/67 96 11/06/18 07:16 11/06/18 07:16 11/06/18 07:16 11/06/18 07:16 11/06/18 07:16 - Medications Medications: Current Medications Albuterol/Ipratropium (Duoneb 3 Mg/0.5 Mg (3 Ml) Ud) 3 ml INH RQ4 [facility] Last Admin: 11/06/18 11:09 Dose: Not Given Enoxaparin Sodium (Lovenox) 40 mg SC DAILY [facility] Last Admin: 11/06/18 09:06 Dose: 40 mg Methylprednisolone (Solu-Medrol) 40 mg IVP Q12 [facility] Last Admin: 11/06/18 09:06 Dose: 40 mg - Labs Labs: 11/05/18 19:10 11/05/18 19:10 - Additional Findings Additional findings: - Constitutional Appears: No Acute Distress, Chronically Ill - Head Exam Head Exam: ATRAUMATIC, NORMOCEPHALIC - Eye Exam Eye Exam: EOMI - ENT Exam ENT Exam: Mucous Membranes Moist - Respiratory Exam Respiratory Exam: Rhonchi (bilateral), chronic Wheezes (bilateral). absent: Respiratory Distress - Cardiovascular Exam Cardiovascular Exam: +S1, +S2 - GI/Abdominal Exam GI & Abdominal Exam: Soft, Normal Bowel Sounds. absent: Tenderness - Extremities Exam Extremities Exam: Normal Inspection. absent: Calf Tenderness - Neurological Exam Neurological Exam: Alert, Awake - Skin Skin Exam: Warm Assessment and Plan - Assessment and Plan (Free Text) Assessment: COPD exacerbation chest xray: Consist with COPD, small nodular density on R lung apex (see full report) Duoneb INH q4h Guaifenesin 100mg PO q4h prn cough SoluMedrol 40mg IVP q12h O2 sat 96% on RA Depression Psychiatry consulted, help appreciated Remeron 15mg PO HS Lexapro 20mg PO daily Gabapentin 100mg TID Chronic pain continue gabapentin 100mg PO TID Prophylactic measure GI ppx no indicated Lovenox 40mg SC daily SCD All management as per Dr. Gonzalez
--- NOTE | 2018-11-06 14:22 | PCM.PSYCH ---
Initial Psychiatric Evaluation - Initial Psychiatric Evaluation Type of Admission: Voluntary Legal Status: Capacity Chief Complaint (in patient's own words): "I don't feel well" History of Present Illness and Precipitating Events: Patient seen, chart reviewed, case discussed Patient is a 58-year-old single, homeless, unemployed male with no child who receives his income from [facility] due to his COPD. He is well-known from numerous admissions. In fact he had tens of admissions to . Consult was requested for his depression. He was discharged 6 days ago from , where he was treated for depression and alcoholism again. He says he continued his Lexapro but did not go to a correction (hates them) and he also sabotaged [facility] admission, as well as one past [facility] arrnaged housing. He is still fixated on getting a room to live. His sponsor tried somewhere in [place] but "it fell apart," he says. He mostly stayed in [facility] [employer] and 06/04 stores and then came here. The patient has had many episodes of suicidal ideations in the past. The patient feels shaky and depressed about his whole situation. The patient is unable to find transportation and communication with different groups to find a home. The patient states that he has lost all his belongings upon becoming homeless. The patient has only had rough sleep for the last week because of the cold weather. The patient still has interest in his daily activities such as crossword puzzles and watching TV. The patient states that he has been fatigued, lost weight and strength ever since his last stomach surgery in 2013. The patient has feelings of sadness and worthlessness but denies changes in appetite or concentration. The patient also denies any auditory or visual hallucinations. The patient has drunk some alcohol since d/c. The patient had his first drink at age 10. The patient smokes 1 joint of marijuana about 2 times per month and has smoked about half to one pack per day for 45 years. The patient denies heroin or other pill use but admits that he occasionally smokes crack when he drinks. He contracts for safety and denies any intention to hurt himself now. He is again future-oriented. He wants help re housing. Past Psych History: Major Depressive Disorder recurrent severe. Many psych and detox admissions Past Medical History: Asthma, COPD, HTN, BPH, reflux Family Psych History: Unknown Current Medications: Active Medications Generic Name Dose Route Start Last Admin Trade Name Freq PRN Reason Stop Dose Admin Albuterol/Ipratropium 3 ml 11/06/18 00:00 11/06/18 11:09 Duoneb 3 Mg/0.5 Mg (3 Ml) Ud INH Not Given RQ4 [facility] Enoxaparin Sodium 40 mg 11/06/18 10:00 11/06/18 09:06 Lovenox SC 40 mg DAILY [facility] Administration Methylprednisolone 40 mg 11/06/18 10:00 11/06/18 09:06 Solu-Medrol IVP 40 mg Q12 [facility] Administration Past Psychiatric History - Past Psychiatric History Previous Treatment History: Inpatient Pertinent Medical Hx (Current Medical&Sleep Prob, Allergies): Allergies Allergy/AdvReac Type Severity Reaction Status Date / Time No Known Allergies Allergy Unverified 11/01/18 02:29 Pantoprazole [Protonix EC Tab] 40 mg PO DAILY #14 ect 08/06/18 Umeclidinium [place] [Incruse Ellipta] 62.5 mcg IH DAILY #1 inh 08/06/18 Folic Acid 1 mg PO DAILY #30 tab 08/07/18 Tamsulosin [Flomax] 0.4 mg PO DAILY #30 cap 08/07/18 Multivitamins [Hexavitamin] 1 tab PO DAILY tab 09/25/18 Sertraline [Zoloft] 100 mg PO DAILY tab 09/25/18 Thiamine [Vitamin B1 Tab] 100 mg PO DAILY tab 09/25/18 Escitalopram [Lexapro] 20 mg PO DAILY 30 Days tab 10/25/18 Albuterol Sulfate [Ventolin Hfa] 1 puff IH Q4 PRN 30 Days #1 inhaler 10/31/18 Fluticasone/Vilanterol 200/25 [Breo Ellipta 200-25 Mcg INH] 1 puff INH RQD #1 inhaler 10/31/18 Gabapentin [Neurontin] 100 mg PO BID #60 capsule 10/31/18 Lisinopril [Zestril] 10 mg PO DAILY #30 tab 10/31/18 Mirtazapine [Remeron] 15 mg PO HS #30 tab 10/31/18 Tiotropium [Spiriva] 18 mcg INH RQ24 #30 cap 10/31/18 traZODone [Desyrel] 100 mg PO HS PRN #30 tab 10/31/18 Escitalopram [Lexapro] 20 mg PO DAILY 11/05/18 Famotidine [Pepcid] 20 mg PO HS 11/05/18 Montelukast Sodium [Singulair] 10 mg PO HS 11/05/18 Trazodone HCl 100 mg PO HS 11/05/18 Review of Systems - Psychiatric Psychiatric: Abnormal Sleep Pattern, Anhedonia, Anxiety, Change in Appetite, Depression, Difficulty Concentrating. absent: Hallucinations, Homicidal Ideation, Suicidal Ideation Mental Status Examination - Personal Presentation Personal Presentation: Looks older than stated age - Affect Affect: Constricted - Motor Activity Motor Activity: Calm - Reliability in Providing Information Reliability in Providing Information: Good - Speech Speech: Organized - Mood Mood: Depressed, Anxious - Formal Thought Process Formal Thought Process: No Impairment - Cognitive Functions Orientation: Person, Place, Situation, Time Attention/Concentration: Easily distracted Estimate of Intelligence: Average Judgement: Intact, as evidence by: Insight regarding need for hospitalization Memory: Recent intact, as evidence by: Ability to recall events of the day, Remote impaired as evidenced by: Inability to recall sig life events - Risk Risk: Diminished functioning - Strength & Assets Inventory Strength & Assets Inventory: Life experience, Cooperative - Limitations Limitations: Other DSM 5 DX - DSM 5 DSM 5 Diagnosis: Major Depressive Disorder recurrent severe without psychotic features Alcohol use d/osevere - Recommended/Plan of Treatment Treatment Recommendations and Plan of Treatment: Lexapro for depression No need for detox as he was just discharged As need medications All risks, benefits and alternatives of the meds discussed, and the pt agreed and understood. Psychoeducation and support frequently Encourage compliance with meds and after care Teach healthy lifestyle methods, i.e. diet, exercise, meditation Smoking cessation and patch if needed SW re housing, correction Follow up D/C plan from last week (5E d/c) 35 min
[2018-11-06] MEDS: guaiFENesin 100 mg/5 ml Syrup UD PO PRN (22:13)
[2018-11-07] MEDS: Albuterol-Ipratrop 3 mg / 0.5 (3 ml) UD INH SCH ×6 (00:52→19:55)
[2018-11-07 06:37] LABS: BASO % 0.4 % (0.0-2.0); EOS % 0.1 % (0.0-4.0); HEMOGLOBIN 10.5 g/dL (12.0-18.0); LYMPH # 1.2 K/uL (1.0-4.3); LYMPH % 8.8 % (20.0-40.0); MEAN CELL VOLUME 81.5 fL (80.0-94.0); MEAN CORPUSCULAR HEMOGLOBIN 26.4 pg (27.0-31.0); MEAN CORPUSCULAR HGB CONC 32.5 g/dL (33.0-37.0); MEAN PLATELET VOLUME 8.1 fL (7.2-11.7); MONO # 0.3 K/uL (0.0-0.8); MONO % 2.5 % (0.0-10.0); NEUT # 11.7 K/uL (1.8-7.0); NEUT % 88.2 % (50.0-75.0); NRBC % 0.1 % (0.0-2.0); PLATELET COUNT 221 K/uL (130-400); RBC 3.96 Mil/uL (4.40-5.90); RED CELL DISTRIBUTION WIDTH 24.1 % (11.5-14.5); WHITE BLOOD COUNT 13.3 K/uL (4.8-10.8)
[2018-11-07 06:50] LABS: ALB/GLOB RATIO 1.2 (1.0-2.1); ALBUMIN 3.3 g/dL (3.5-5.0); ALT/SGPT 47 U/L (21-72); AST/SGOT 25 U/L (17-59); BLOOD UREA NITROGEN 15 mg/dL (9-20); CALCIUM 8.4 mg/dl (8.6-10.4); GFR NON-AFRICAN AMERICAN > 60
[2018-11-07 08:34] LABS: ANISOCYTOSIS SLIGHT; HYPOCHROMIC SLIGHT; LYMPHOCYTE 8 % (20-40); MONOCYTE 3 % (0-10); NEUTROPHIL 89 % (50-75); PLATELET ESTIMATE NORMAL (NORMAL); POLYCHROMIC SLIGHT; TOTAL CELLS COUNTED 100
--- NOTE | 2018-11-07 09:38 | CP.PCM.PN ---
<Yanira Schafer Salvador - Last Filed: 11/07/18 10:31> Subjective - Date & Time of Evaluation Date of Evaluation: 11/07/18 Time of Evaluation: 09:15 - Subjective Subjective: Medicine note for Dr. Gonzalez's service (Currently covered by Hospitalist, Dr. Rojas till 11/09/18) Patient was seen and examined at bedside, while resting comfortably in bed in no acute distress. Patient reports is with improve symptoms but still complains of congestion. Patient admits to chest discomfort with cough and mild shortness of breath but denies chest pain, palpitations, headache, dizziness. Objective - Vital Signs/Intake and Output Vital Signs (last 24 hours): Temp Pulse Resp BP Pulse Ox 97.8 F 80 18 159/86 H 98 11/07/18 07:00 11/07/18 07:00 11/07/18 07:00 11/07/18 07:00 11/07/18 08:00 - Medications Medications: Current Medications Albuterol/Ipratropium (Duoneb 3 Mg/0.5 Mg (3 Ml) Ud) 3 ml INH RQ4 [facility] Last Admin: 11/07/18 09:10 Dose: 3 ml Enoxaparin Sodium (Lovenox) 40 mg SC DAILY [facility] Last Admin: 11/06/18 09:06 Dose: 40 mg Escitalopram Oxalate (Lexapro) 20 mg PO DAILY [facility] Gabapentin (Neurontin) 100 mg PO TID [facility] Last Admin: 11/06/18 18:20 Dose: 100 mg Guaifenesin (Robitussin) 100 mg PO Q4H PRN PRN Reason: Cough Last Admin: 11/06/18 22:13 Dose: 100 mg Methylprednisolone (Solu-Medrol) 40 mg IVP Q12 [facility] Last Admin: 11/06/18 22:14 Dose: 40 mg Mirtazapine (Remeron) 15 mg PO HS [facility] Last Admin: 11/06/18 22:14 Dose: 15 mg - Labs Labs: 11/07/18 06:28 11/07/18 06:28 - Constitutional Appears: Well, No Acute Distress - Head Exam Head Exam: ATRAUMATIC, NORMAL INSPECTION - Eye Exam Eye Exam: EOMI, Normal appearance - ENT Exam ENT Exam: Mucous Membranes Moist - Respiratory Exam Respiratory Exam: Clear to Ausculation Bilateral, Wheezes, NORMAL BREATHING PATTERN. absent: Decreased Breath Sounds, Rales, Rhonchi Additional comments: Diffuse expiratory wheezing - Cardiovascular Exam Cardiovascular Exam: REGULAR RHYTHM, +S1, +S2. absent: Bradycardia, Tachycardia, Clicks, Diastolic murmur, Murmur - GI/Abdominal Exam GI & Abdominal Exam: Soft, Normal Bowel Sounds. absent: Distended, Firm, Guarding, Rigid, Tenderness - Extremities Exam Extremities Exam: Normal Inspection. absent: Calf Tenderness, Pedal Edema - Back Exam Back Exam: NORMAL INSPECTION. absent: CVA tenderness (L), CVA tenderness (R) - Neurological Exam Neurological Exam: Alert, Awake, Normal Gait, Oriented x3 - Psychiatric Exam Psychiatric exam: Normal Affect - Skin Skin Exam: Normal Color Assessment and Plan (1) COPD exacerbation Assessment & Plan: Chest X-ray (11/05/18): Hyperinflation of the lung correia. No focal infiltrate or effusion. Small nodular density at the lateral aspect of the right lung base may represent confluence of shadows with ribs and vessels versus osseous injury of a right lower lateral rib versus additional etiology. Clinical correlation. Correlation with chest CT may be helpful clinically indicated. Small nodular density at the right lung apex. Bilateral hilar prominence. Chest X-ray (11/07/18): No active pulmonary disease. Medications: - Duonebs 3ML INH RQ4H - Solu-medrol 40mg IV Q12H - Robitussin 100mg PO Q4H PRN Status: Acute (2) Depression Assessment & Plan: Consultation, Psychiatry----> Dr. Alonzo - Help appreciated Medications: - Lexapro 20mg PO daily - Remeron 15mg PO HS Status: Acute (3) Chronic pain Assessment & Plan: Gabapentin 100mg PO Q4H PRN Status: Acute (4) Prophylactic measure Assessment & Plan: GI: Protonix 40mg PO daily ( on steroids) DVT: Lovenox 40mg SC daily All plans and management discussed with Dr. Rojas Status: Acute <Suman Rojas - Last Filed: 11/07/18 13:30> Objective - Vital Signs/Intake and Output Vital Signs (last 24 hours): Temp Pulse Resp BP Pulse Ox 97.8 F 80 18 159/86 H 98 11/07/18 07:00 11/07/18 07:00 11/07/18 07:00 11/07/18 07:00 11/07/18 12:00 - Medications Medications: Current Medications Albuterol/Ipratropium (Duoneb 3 Mg/0.5 Mg (3 Ml) Ud) 3 ml INH RQ4 [facility] Last Admin: 11/07/18 11:59 Dose: 3 ml Enoxaparin Sodium (Lovenox) 40 mg SC DAILY [facility] Last Admin: 11/07/18 11:30 Dose: 40 mg Escitalopram Oxalate (Lexapro) 20 mg PO DAILY [facility] Last Admin: 11/07/18 09:46 Dose: 20 mg Gabapentin (Neurontin) 100 mg PO TID [facility] Last Admin: 11/07/18 09:46 Dose: 100 mg Guaifenesin (Robitussin) 100 mg PO Q4H PRN PRN Reason: Cough Last Admin: 11/07/18 09:47 Dose: 100 mg Methylprednisolone (Solu-Medrol) 40 mg IVP Q12 [facility] Last Admin: 11/07/18 09:46 Dose: 40 mg Mirtazapine (Remeron) 15 mg PO HS [facility] Last Admin: 11/06/18 22:14 Dose: 15 mg Pantoprazole Sodium (Protonix Ec Tab) 40 mg PO DAILY [facility] Last Admin: 11/07/18 11:30 Dose: 40 mg - Labs Labs: 11/07/18 06:28 11/07/18 06:28 Attending/Attestation - Attestation I have personally seen and examined this patient.: Yes I have fully participated in the care of the patient.: Yes I have reviewed all pertinent clinical information, including history, physical exam and plan: Yes Notes (Text): 11/07/18 13:20 Hospitalist note: Patient was seen and examined by me. Agree with the above note by the resident The patient's primary is temporarily away at the moment and hospitalist service is covering the service. Patient was not in any distress, on exam there is still rhonchi heard and so at this time will continue with current regimen. of the solumedrol, nebulizer treatment and start the inhaled long acting Reviewed lab work, WBC is 13 - possible from the solumedrol. Hemoglobin and Hemacrit stable. Tommorow can consider decreasing the solumedrol Suman Rojas 11/07/18 13:30
[2018-11-07] MEDS: MethylPREDNISolone 40 mg Vial IVP SCH ×2 (09:46→21:31)
[2018-11-07] MEDS: guaiFENesin 100 mg/5 ml Syrup UD PO PRN ×2 (09:47→21:36)
--- NOTE | 2018-11-07 10:02 | RAD ---
Date of service: 11/07/2018 HISTORY: COPD, nodular density on R lung apex on prev cxr COMPARISON: 11/05/2018 FINDINGS: LUNGS: The lungs are well inflated and clear. PLEURA: No pleural effusions or pneumothorax. CARDIOVASCULAR: The heart is normal in size. No aortic atherosclerotic calcification present. OSSEOUS STRUCTURES: Within normal limits for the patient's age. VISUALIZED UPPER ABDOMEN: Normal. OTHER FINDINGS: None. IMPRESSION: No active pulmonary disease.
[2018-11-07] MEDS: Enoxaparin 40 mg Syringe SC SCH (11:30)
[2018-11-07] MEDS: Pantoprazole 40 mg EC Tab PO SCH (11:30)
--- NOTE | 2018-11-07 23:48 | PCM.PYCHPN ---
Psychiatric Progress Note - Psychiatric Progress Note Patient seen today, length of contact: 15 min Patient Chief Complaint: "I have pain" Problems Identified/Issues Discussed: Pt is seen, chart reviewed Has medical complaints Stable with psych meds Has depression and anxiety but they are not worse than his baseline and mostly situational: he is very worried abouyt his homelessness and difficulties in shelters, which he avoids Support given Not suicidal - agrees to follow his safety plan that was discussed No SEs Medication Change: Yes Medical Record Reviewed: Yes Mental Status Examination - Cognitive Function Orientation: Person, Place, Situation, Time Memory: Impaired Attention: Poor Concentration: Poor Association: WNL Fund of Knowledge: WNL - Mood Mood: Depressed, Anxious - Affect Affect: Constricted - Speech Speech: Appropriate - Formal Thought Process Formal Thought Process: No Impairment - Suicidal Ideation Suicidal Ideation: No - Homicidal Ideation Homicidal Ideation: No Goal/Treatment Plan - Goal/Treatment Plan Need for Continued Stay: Discharge may exacerbated symptoms, Severe functional impairment Progress Toward Problem(s) and Goals/Treatment Plan: Lexapro for depression No need for detox as he was just discharged As need medications All risks, benefits and alternatives of the meds discussed, and the pt agreed and understood. Psychoeducation and support frequently Encourage compliance with meds and after care Teach healthy lifestyle methods, i.e. diet, exercise, meditation Smoking cessation and patch if needed SW re housing, assisted Attend crc on d/c
[2018-11-08] MEDS: Albuterol-Ipratrop 3 mg / 0.5 (3 ml) UD INH SCH ×6 (02:51→19:50)
--- NOTE | 2018-11-08 03:00 | CP.PCM.PN ---
<Hillary Kumar - Last Filed: 11/08/18 03:05> Subjective - Date & Time of Evaluation Date of Evaluation: 11/08/18 Time of Evaluation: 02:59 - Subjective Subjective: PGY-1 Hillary Kumar D.O. Medicine progress note for Dr. Gonzalez's service: Patient was seen and examined this morning. He still has cough, SOB, and pleuritic chest pain. He denies RED, chest pain, palpitations, abdominal pain, N/V/D/C. Objective - Vital Signs/Intake and Output Vital Signs (last 24 hours): Temp Pulse Resp BP Pulse Ox 98 F 108 H 16 137/59 L 92 L 11/07/18 22:00 11/07/18 22:00 11/07/18 22:00 11/07/18 22:00 11/07/18 23:50 - Medications Medications: Current Medications Acetaminophen (Tylenol 325mg Tab) 650 mg PO Q6 PRN PRN Reason: Pain, moderate (4-7) Last Admin: 11/07/18 18:29 Dose: 650 mg Albuterol/Ipratropium (Duoneb 3 Mg/0.5 Mg (3 Ml) Ud) 3 ml INH RQ4 [facility] Last Admin: 11/08/18 02:51 Dose: Not Given Enoxaparin Sodium (Lovenox) 40 mg SC DAILY [facility] Last Admin: 11/07/18 11:30 Dose: 40 mg Escitalopram Oxalate (Lexapro) 20 mg PO DAILY [facility] Last Admin: 11/07/18 09:46 Dose: 20 mg Gabapentin (Neurontin) 100 mg PO TID [facility] Last Admin: 11/07/18 17:52 Dose: 100 mg Guaifenesin (Robitussin) 100 mg PO Q4H PRN PRN Reason: Cough Last Admin: 11/07/18 21:36 Dose: 100 mg Methylprednisolone (Solu-Medrol) 40 mg IVP Q12 [facility] Last Admin: 11/07/18 21:31 Dose: 40 mg Mirtazapine (Remeron) 15 mg PO HS [facility] Last Admin: 11/07/18 21:31 Dose: 15 mg Pantoprazole Sodium (Protonix Ec Tab) 40 mg PO DAILY [facility] Last Admin: 11/07/18 11:30 Dose: 40 mg - Labs Labs: 11/07/18 06:28 12/14/18 06:28 - Constitutional Appears: Non-toxic, No Acute Distress - Head Exam Head Exam: ATRAUMATIC, NORMAL INSPECTION - Eye Exam Eye Exam: EOMI, Normal appearance, PERRL - ENT Exam ENT Exam: Mucous Membranes Moist - Neck Exam Neck Exam: Normal Inspection - Respiratory Exam Respiratory Exam: Decreased Breath Sounds, Wheezes (mild), NORMAL BREATHING PATTERN. absent: Accessory Muscle Use, Respiratory Distress - Cardiovascular Exam Cardiovascular Exam: REGULAR RHYTHM, +S1, +S2. absent: Murmur - GI/Abdominal Exam GI & Abdominal Exam: Soft. absent: Tenderness - Rectal Exam Rectal Exam: Deferred - Extremities Exam Extremities Exam: Normal Inspection - Neurological Exam Neurological Exam: Alert, Awake, CN II-XII Intact, Oriented x3 - Psychiatric Exam Psychiatric exam: Depressed, Normal Affect - Skin Skin Exam: Dry, Intact, Normal Color, Warm Assessment and Plan - Assessment and Plan (Free Text) Assessment: Patient is a 58 yo homeless male with history of COPD, polysubstance use (alcohol, tobacco, marijuana), and depression who presents for worsening SOB and cough. He frequently comes to the ED, and was just discharged 5 days previously from the psychiatric unit. Plan: COPD exacerbation Chest X-ray (11/05/18): Hyperinflation of the lung correia. No focal infiltrate or effusion. Small nodular density at the lateral aspect of the right lung base may represent confluence of shadows with ribs and vessels versus osseous injury of a right lower lateral rib versus additional etiology. Clinical correlation. Correlation with chest CT may be helpful clinically indicated. Small nodular density at the right lung apex. Bilateral hilar prominence. Chest X-ray (11/07/18): No active pulmonary disease. Medications: - Duonebs 3ML INH RQ4H - Solu-medrol 40mg IV Q12H - Robitussin 100mg PO Q4H PRN Depression Consultation, Psychiatry- Dr. Alonzo Medications: - Lexapro 20mg PO daily - Remeron 15mg PO HS Chronic pain Gabapentin 100mg PO Q4H PRN Tylenol 650 mg PO Q6H PRN Ppx: Assessment & Plan: GI: Protonix 40mg PO daily DVT: Lovenox 40mg SC daily Code status: full code <Suman Rojas H - Last Filed: 11/08/18 09:44> Objective - Vital Signs/Intake and Output Vital Signs (last 24 hours): Temp Pulse Resp BP Pulse Ox 97.9 F 78 20 152/82 H 93 L 11/08/18 07:00 11/08/18 07:00 11/08/18 07:00 11/08/18 07:00 11/08/18 07:10 - Medications Medications: Current Medications Acetaminophen (Tylenol 325mg Tab) 650 mg PO Q6 PRN PRN Reason: Pain, moderate (4-7) Last Admin: 11/08/18 09:01 Dose: 650 mg Albuterol/Ipratropium (Duoneb 3 Mg/0.5 Mg (3 Ml) Ud) 3 ml INH RQ4 [facility] Last Admin: 11/08/18 08:19 Dose: 3 ml Enoxaparin Sodium (Lovenox) 40 mg SC DAILY [facility] Last Admin: 11/08/18 09:02 Dose: 40 mg Escitalopram Oxalate (Lexapro) 20 mg PO DAILY [facility] Last Admin: 11/08/18 09:07 Dose: 20 mg Gabapentin (Neurontin) 100 mg PO TID [facility] Last Admin: 11/08/18 09:01 Dose: 100 mg Guaifenesin (Robitussin) 100 mg PO Q4H PRN PRN Reason: Cough Last Admin: 11/08/18 09:02 Dose: 100 mg Methylprednisolone (Solu-Medrol) 40 mg IVP Q12 [facility] Last Admin: 11/08/18 09:01 Dose: 40 mg Mirtazapine (Remeron) 15 mg PO HS [facility] Last Admin: 11/07/18 21:31 Dose: 15 mg Pantoprazole Sodium (Protonix Ec Tab) 40 mg PO DAILY [facility] Last Admin: 11/08/18 09:01 Dose: 40 mg - Labs Labs: 11/08/18 07:57 11/08/18 07:57 Attending/Attestation - Attestation I have personally seen and examined this patient.: Yes I have fully participated in the care of the patient.: Yes I have reviewed all pertinent clinical information, including history, physical exam and plan: Yes Notes (Text): 11/08/18 09:39 Hospitalist service Patient was seen and examined by me this morning. Patient says he still has some wheezing and rales He appeared very comfortable when I came into the room. We will try to decrease the solumedrol today and I explained to the patient to be prepared for discharge alexandra Patient has history of comming to the hospital repeatedly after discharge. There are records of him not wanting to go to homeless shelters He is still smoking and using THC, I explained to the patient that he will still having coughing and wheezing probably chronically Suman Rojas
[2018-11-08 07:30] VITALS: RESP 20
[2018-11-08 08:11] LABS: BASO % 0.2 % (0.0-2.0); HEMOGLOBIN 9.8 g/dL (12.0-18.0); LYMPH # 1.1 K/uL (1.0-4.3); LYMPH % 11.3 % (20.0-40.0); MEAN CELL VOLUME 81.8 fL (80.0-94.0); MEAN CORPUSCULAR HEMOGLOBIN 26.7 pg (27.0-31.0); MEAN CORPUSCULAR HGB CONC 32.6 g/dL (33.0-37.0); MEAN PLATELET VOLUME 8.2 fL (7.2-11.7); MONO # 0.3 K/uL (0.0-0.8); MONO % 2.9 % (0.0-10.0); NEUT # 8.1 K/uL (1.8-7.0); NEUT % 85.6 % (50.0-75.0); RBC 3.69 Mil/uL (4.40-5.90); RED CELL DISTRIBUTION WIDTH 23.9 % (11.5-14.5); WHITE BLOOD COUNT 9.5 K/uL (4.8-10.8)
[2018-11-08 08:22] LABS: ALB/GLOB RATIO 1.2 (1.0-2.1); ALBUMIN 3.2 g/dL (3.5-5.0); ALT/SGPT 37 U/L (21-72); AST/SGOT 21 U/L (17-59); BLOOD UREA NITROGEN 16 mg/dL (9-20); CALCIUM 8.6 mg/dl (8.6-10.4); GFR NON-AFRICAN AMERICAN > 60
[2018-11-08] MEDS: Pantoprazole 40 mg EC Tab PO SCH (09:01)
[2018-11-08] MEDS: MethylPREDNISolone 40 mg Vial IVP SCH ×2 (09:01→22:18)
[2018-11-08] MEDS: Enoxaparin 40 mg Syringe SC SCH (09:02)
[2018-11-08] MEDS: guaiFENesin 100 mg/5 ml Syrup UD PO PRN ×3 (09:02→22:17)
[2018-11-08] MEDS ORDERED: MethylPREDNISolone 40 mg Vial IVP SCH (10:00)
[2018-11-09] MEDS: Albuterol-Ipratrop 3 mg / 0.5 (3 ml) UD INH SCH ×4 (00:15→11:20)
[2018-11-09 03:25] VITALS: O2SAT 96
[2018-11-09 07:44] VITALS: TEMP 97.7
[2018-11-09 08:55] LABS: ALB/GLOB RATIO 1.3 (1.0-2.1); ALBUMIN 3.2 g/dL (3.5-5.0); ALT/SGPT 36 U/L (21-72); AST/SGOT 21 U/L (17-59); BLOOD UREA NITROGEN 17 mg/dL (9-20); CALCIUM 8.5 mg/dl (8.6-10.4); GFR NON-AFRICAN AMERICAN > 60
[2018-11-09 09:05] LABS: HEMOGLOBIN 10.5 g/dL (12.0-18.0); LYMPH # 1.9 K/uL (1.0-4.3); LYMPH % 20.1 % (20.0-40.0); MEAN CELL VOLUME 82.2 fL (80.0-94.0); MEAN CORPUSCULAR HEMOGLOBIN 26.9 pg (27.0-31.0); MEAN CORPUSCULAR HGB CONC 32.8 g/dL (33.0-37.0); MEAN PLATELET VOLUME 8.1 fL (7.2-11.7); MONO # 0.4 K/uL (0.0-0.8); MONO % 3.8 % (0.0-10.0); NEUT # 7.2 K/uL (1.8-7.0); NEUT % 76.1 % (50.0-75.0); RBC 3.89 Mil/uL (4.40-5.90); RED CELL DISTRIBUTION WIDTH 23.7 % (11.5-14.5); WHITE BLOOD COUNT 9.5 K/uL (4.8-10.8)
[2018-11-09] MEDS: Enoxaparin 40 mg Syringe SC SCH (10:18)
[2018-11-09] MEDS: guaiFENesin 100 mg/5 ml Syrup UD PO PRN (10:18)
[2018-11-09] MEDS: Pantoprazole 40 mg EC Tab PO SCH (10:19)
[2018-11-09] MEDS: MethylPREDNISolone 40 mg Vial IVP SCH (10:19)
[2018-11-09 10:26] VITALS: BP 150/84; PULSE 84
--- NOTE | 2018-11-09 11:26 | CP.PCM.DIS ---
<Chandni Tian - Last Filed: 11/09/18 11:23> Provider - Provider Date of Admission: 11/08/18 15:31 Attending physician: Dino Gonzalez MD Consults: 11/05/18 20:20 Psychiatry Consult Routine Comment: 5 East notified Consulting Provider: Unique Heredia Consulting Physician: Unique Heredia Reason for Consult: depression Time Spent in preparation of Discharge (in minutes): 55 Hospital Course - Lab Results Lab Results: Most Recent Lab Values WBC 9.5 K/uL (4.8-10.8) 11/09/18 08:33 RBC 3.89 Mil/uL (4.40-5.90) L 11/09/18 08:33 Hgb 10.5 g/dL (12.0-18.0) L 11/09/18 08:33 Hct 32.0 % (35.0-51.0) L 11/09/18 08:33 MCV 82.2 fL (80.0-94.0) 11/09/18 08:33 MCH 26.9 pg (27.0-31.0) L 11/09/18 08:33 MCHC 32.8 g/dL (33.0-37.0) L 11/09/18 08:33 RDW 23.7 % (11.5-14.5) H 11/09/18 08:33 Plt Count 299 K/uL (130-400) 11/09/18 08:33 MPV 8.1 fL (7.2-11.7) 11/09/18 08:33 Neut % (Auto) 76.1 % (50.0-75.0) H 11/09/18 08:33 Lymph % (Auto) 20.1 % (20.0-40.0) 11/09/18 08:33 [place] % (Auto) 3.8 % (0.0-10.0) 11/09/18 08:33 Eos % (Auto) 0.0 % (0.0-4.0) 11/09/18 08:33 Baso % (Auto) 0.0 % (0.0-2.0) 11/09/18 08:33 Neut # (Auto) 7.2 K/uL (1.8-7.0) H 11/09/18 08:33 Lymph # (Auto) 1.9 K/uL (1.0-4.3) 11/09/18 08:33 [place] # (Auto) 0.4 K/uL (0.0-0.8) 11/09/18 08:33 Eos # (Auto) 0.0 K/uL (0.0-0.7) 11/09/18 08:33 Baso # (Auto) 0.0 K/uL (0.0-0.2) 11/09/18 08:33 Neutrophils % (Manual) 89 % (50-75) H 11/07/18 06:28 Lymphocytes % (Manual) 8 % (20-40) L 11/07/18 06:28 Monocytes % (Manual) 3 % (0-10) 11/07/18 06:28 Platelet Estimate Normal (NORMAL) 11/07/18 06:28 Polychromasia Slight 11/07/18 06:28 Hypochromasia (manual) Slight 11/07/18 06:28 Anisocytosis (manual) Slight 11/07/18 06:28 Puncture Site Rb 11/05/18 20:30 pCO2 44 mm/Hg (35-45) 11/05/18 20:30 pO2 94 mm/Hg (80-100) 11/05/18 20:30 HCO3 31.4 mmol/L (21-28) H 11/05/18 20:30 ABG pH 7.48 (7.35-7.45) H 11/05/18 20:30 ABG Total CO2 34.2 mmol/L (22-28) H 11/05/18 20:30 ABG O2 Saturation 98.4 % (95-98) H 11/05/18 20:30 ABG Base Excess 8.4 mmol/L (-2.0-3.0) H 11/05/18 20:30 ABG Hemoglobin 9.6 g/dL (11.7-17.4) L 11/05/18 20:30 ABG Carboxyhemoglobin 5.1 % (0.5-1.5) H 11/05/18 20:30 POC ABG HHb (Measured) 1.5 % (0.0-5.0) 11/05/18 20:30 ABG Methemoglobin 1.3 % (0.0-3.0) 11/05/18 20:30 Peter Test Yes 11/05/18 20:30 Hgb O2 Saturation 92.2 % (95.0-98.0) L 11/05/18 20:30 Sodium 135 mmol/L (132-148) 11/09/18 08:33 Potassium 4.5 mmol/L (3.6-5.2) 11/09/18 08:33 Chloride 97 mmol/L (98-107) L 11/09/18 08:33 Carbon Dioxide 32 mmol/L (22-30) H 11/09/18 08:33 Anion Gap 11 (10-20) 11/09/18 08:33 BUN 17 mg/dL (9-20) 11/09/18 08:33 Creatinine 0.6 mg/dL (0.8-1.5) L 11/09/18 08:33 Est GFR ( Amer) > 60 11/09/18 08:33 Est GFR (Non-Af Amer) > 60 11/09/18 08:33 POC Glucose (mg/dL) 132 mg/dL (65-110) H 11/05/18 18:39 Random Glucose 91 mg/dL (75-110) 11/09/18 08:33 Calcium 8.5 mg/dl (8.6-10.4) L 11/09/18 08:33 Phosphorus 4.1 mg/dL (2.5-4.5) 11/09/18 08:33 Magnesium 1.6 mg/dL (1.6-2.3) 11/09/18 08:33 Total Bilirubin 0.3 mg/dL (0.2-1.3) 11/09/18 08:33 AST 21 U/L (17-59) 11/09/18 08:33 ALT 36 U/L (21-72) 11/09/18 08:33 Alkaline Phosphatase 53 U/L (38-126) 11/09/18 08:33 Total Protein 5.7 g/dL (6.3-8.3) L 11/09/18 08:33 Albumin 3.2 g/dL (3.5-5.0) L 11/09/18 08:33 Globulin 2.5 gm/dL (2.2-3.9) 11/09/18 08:33 Albumin/Globulin Ratio 1.3 (1.0-2.1) 11/09/18 08:33 - Hospital Course Hospital Course: Upon Admission: 58 year old male with history of COPD, depression, tobacco dependence who presents to the hospital with complaint of worsening shortness of breath. Patient is well known to the medical team, he was most recently discharged on 11/10/18. Patient states he has not follow up with referrals since the discharge. Patient states that his coughing and shortness became worse to the point where he cannot carry his belongings. He also reports to feel very depressed. He used Albuterol without relief before coming to the hospital. Currently he denies fever, chills, dizziness, chest pain, nausea, vomiting or diarrhea. 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 PMHx: COPD, depression, alcohol abuse PSHx: 3 surgeries related to peptic ulcer disease/ perforated ulcer FamHx: unknown, adopted SocialHx: Current smoker, been smoking since age 10; denies recent drug use Throughout Hospital Course: COPD exacerbation Chest X-ray (11/05/18): Hyperinflation of the lung correia. No focal infiltrate or effusion. Small nodular density at the lateral aspect of the right lung base may represent confluence of shadows with ribs and vessels versus osseous injury of a right lower lateral rib versus additional etiology. Clinical correlation. Correlation with chest CT may be helpful clinically indicated. Small nodular density at the right lung apex. Bilateral hilar prominence. Chest X-ray (11/07/18): No active pulmonary disease. Medications: - Duonebs 3ML INH RQ4H - Solu-medrol 40mg IV Q12H - Robitussin 100mg PO Q4H PRN Depression Consultation, Psychiatry- Dr. Alonzo Medications: - Lexapro 20mg PO daily - Remeron 15mg PO HS Chronic pain Gabapentin 100mg PO Q4H PRN Tylenol 650 mg PO Q6H PRN Hypertension - Lisinopril 10mg PO daily Please review EMR for full record, as this is a brief summary of the patient's hospital course. Discharge Exam - Additional Findings Additional findings: - Constitutional Appears: Non-toxic, No Acute Distress - Head Exam Head Exam: ATRAUMATIC, NORMAL INSPECTION - Eye Exam Eye Exam: EOMI, Normal appearance, PERRL - ENT Exam ENT Exam: Mucous Membranes Moist - Neck Exam Neck Exam: Normal Inspection - Respiratory Exam Respiratory Exam: Decreased Breath Sounds, NORMAL BREATHING PATTERN. absent: Accessory Muscle Use, Respiratory Distress, Wheezes - Cardiovascular Exam Cardiovascular Exam: REGULAR RHYTHM, +S1, +S2. absent: Murmur - GI/Abdominal Exam GI & Abdominal Exam: Soft. absent: Tenderness - Rectal Exam Rectal Exam: Deferred - Extremities Exam Extremities Exam: Normal Inspection - Neurological Exam Neurological Exam: Alert, Awake, CN II-XII Intact, Oriented x3 - Psychiatric Exam Psychiatric exam: Depressed, Normal Affect - Skin Skin Exam: Dry, Intact, Normal Color, Warm Discharge Plan - Discharge Medications Prescriptions: RX: Escitalopram [Lexapro] 20 mg PO DAILY #30 tab RX: Gabapentin [Neurontin] 100 mg PO TID #90 cap RX: Lisinopril [Zestril] 10 mg PO DAILY #30 tab RX: Multivitamins [Hexavitamin] 1 tab PO DAILY #30 tab RX: Tamsulosin [Flomax] 0.4 mg PO DAILY #30 cap RX: Thiamine [Vitamin B1 Tab] 100 mg PO DAILY #30 tab - Follow Up Plan Condition: STABLE Disposition: HOME/ ROUTINE Instructions: Smoking: Not Just Harmful to Your Lungs and Heart, COPD Including Emphysema (DC), Quitting Smoking, When You Have Depression and Another Health Problem, Suicide Prevention, Depression (DC) Additional Instructions: Please continue current regimen as prescription indicated. Referrals: Dino Gonzalez MD [Staff Provider] - <RojasSuman fairbanks - Last Filed: 11/09/18 11:42> Provider - Provider Date of Admission: 11/08/18 15:31 Attending physician: Dino Gonzalez MD Consults: 11/05/18 20:20 Psychiatry Consult Routine Comment: 5 East notified Consulting Provider: Unique Heredia Consulting Physician: Unique Heredia Reason for Consult: depression Hospital Course - Lab Results Lab Results: Most Recent Lab Values WBC 9.5 K/uL (4.8-10.8) 11/09/18 08:33 RBC 3.89 Mil/uL (4.40-5.90) L 11/09/18 08:33 Hgb 10.5 g/dL (12.0-18.0) L 11/09/18 08:33 Hct 32.0 % (35.0-51.0) L 11/09/18 08:33 MCV 82.2 fL (80.0-94.0) 11/09/18 08:33 MCH 26.9 pg (27.0-31.0) L 11/09/18 08:33 MCHC 32.8 g/dL (33.0-37.0) L 11/09/18 08:33 RDW 23.7 % (11.5-14.5) H 11/09/18 08:33 Plt Count 299 K/uL (130-400) 11/09/18 08:33 MPV 8.1 fL (7.2-11.7) 11/09/18 08:33 Neut % (Auto) 76.1 % (50.0-75.0) H 11/09/18 08:33 Lymph % (Auto) 20.1 % (20.0-40.0) 11/09/18 08:33 [place] % (Auto) 3.8 % (0.0-10.0) 11/09/18 08:33 Eos % (Auto) 0.0 % (0.0-4.0) 11/09/18 08:33 Baso % (Auto) 0.0 % (0.0-2.0) 11/09/18 08:33 Neut # (Auto) 7.2 K/uL (1.8-7.0) H 11/09/18 08:33 Lymph # (Auto) 1.9 K/uL (1.0-4.3) 11/09/18 08:33 [place] # (Auto) 0.4 K/uL (0.0-0.8) 11/09/18 08:33 Eos # (Auto) 0.0 K/uL (0.0-0.7) 11/09/18 08:33 Baso # (Auto) 0.0 K/uL (0.0-0.2) 11/09/18 08:33 Neutrophils % (Manual) 89 % (50-75) H 11/07/18 06:28 Lymphocytes % (Manual) 8 % (20-40) L 11/07/18 06:28 Monocytes % (Manual) 3 % (0-10) 11/07/18 06:28 Platelet Estimate Normal (NORMAL) 11/07/18 06:28 Polychromasia Slight 11/07/18 06:28 Hypochromasia (manual) Slight 11/07/18 06:28 Anisocytosis (manual) Slight 11/07/18 06:28 Puncture Site Rb 11/05/18 20:30 pCO2 44 mm/Hg (35-45) 11/05/18 20:30 pO2 94 mm/Hg (80-100) 11/05/18 20:30 HCO3 31.4 mmol/L (21-28) H 11/05/18 20:30 ABG pH 7.48 (7.35-7.45) H 11/05/18 20:30 ABG Total CO2 34.2 mmol/L (22-28) H 11/05/18 20:30 ABG O2 Saturation 98.4 % (95-98) H 11/05/18 20:30 ABG Base Excess 8.4 mmol/L (-2.0-3.0) H 11/05/18 20:30 ABG Hemoglobin 9.6 g/dL (11.7-17.4) L 11/05/18 20:30 ABG Carboxyhemoglobin 5.1 % (0.5-1.5) H 11/05/18 20:30 POC ABG HHb (Measured) 1.5 % (0.0-5.0) 11/05/18 20:30 ABG Methemoglobin 1.3 % (0.0-3.0) 11/05/18 20:30 Peter Test Yes 11/05/18 20:30 Hgb O2 Saturation 92.2 % (95.0-98.0) L 11/05/18 20:30 Sodium 135 mmol/L (132-148) 11/09/18 08:33 Potassium 4.5 mmol/L (3.6-5.2) 11/09/18 08:33 Chloride 97 mmol/L (98-107) L 11/09/18 08:33 Carbon Dioxide 32 mmol/L (22-30) H 11/09/18 08:33 Anion Gap 11 (10-20) 11/09/18 08:33 BUN 17 mg/dL (9-20) 11/09/18 08:33 Creatinine 0.6 mg/dL (0.8-1.5) L 11/09/18 08:33 Est GFR ( Amer) > 60 11/09/18 08:33 Est GFR (Non-Af Amer) > 60 11/09/18 08:33 POC Glucose (mg/dL) 132 mg/dL (65-110) H 11/05/18 18:39 Random Glucose 91 mg/dL (75-110) 11/09/18 08:33 Calcium 8.5 mg/dl (8.6-10.4) L 11/09/18 08:33 Phosphorus 4.1 mg/dL (2.5-4.5) 11/09/18 08:33 Magnesium 1.6 mg/dL (1.6-2.3) 11/09/18 08:33 Total Bilirubin 0.3 mg/dL (0.2-1.3) 11/09/18 08:33 AST 21 U/L (17-59) 11/09/18 08:33 ALT 36 U/L (21-72) 11/09/18 08:33 Alkaline Phosphatase 53 U/L (38-126) 11/09/18 08:33 Total Protein 5.7 g/dL (6.3-8.3) L 11/09/18 08:33 Albumin 3.2 g/dL (3.5-5.0) L 11/09/18 08:33 Globulin 2.5 gm/dL (2.2-3.9) 11/09/18 08:33 Albumin/Globulin Ratio 1.3 (1.0-2.1) 11/09/18 08:33 Attending/Attestation - Attestation I have personally seen and examined this patient.: Yes I have fully participated in the care of the patient.: Yes I have reviewed all pertinent clinical information, including history, physical exam and plan: Yes Notes (Text): 11/09/18 11:40 Medical attending: Patient was seen and examined by me. Agree with the above note by the resident The patient was not in any acute distress when I came and saw the patient. He was already dressed and ready to leave He will need to have RX for prednisone He will also need help with transportation as well The patient still is smoking and I asked him to try to decrease the amount of smoking. Suman Rojas
== END 2018-11-09 13:18 | disposition home or self-care (01) | DRG 88 ==
LOC: C.ER 17:19 → C.9E 20:15 → C.5S 23:00 → OBSVTOIN 11-08 15:31
PROVIDERS: ADMIT Internal Medicine Pulmonary Disease; ATTEND Internal Medicine Pulmonary Disease
DX: J44.1 Chronic obstructive pulmonary disease with (acute) exacerbation (principal); F33.2 Major depressive disorder, recurrent severe without psychotic features; F14.90 Cocaine use, unspecified, uncomplicated; F17.200 Nicotine dependence, unspecified, uncomplicated; F12.90 Cannabis use, unspecified, uncomplicated; F10.20 Alcohol dependence, uncomplicated; Y90.9 Presence of alcohol in blood, level not specified; R45.851 Suicidal ideations; I10 Essential (primary) hypertension; Z59.0 Homelessness; N40.0 Benign prostatic hyperplasia without lower urinary tract symptoms; G89.29 Other chronic pain; F41.9 Anxiety disorder, unspecified

== ENCOUNTER 2018-11-17 19:09 | Emergency (ER) | payer MEDICAID ==
[2018-11-17 19:09] VITALS: BMI 23.5
[2018-11-17 19:27] VITALS: RESP 20
--- NOTE | 2018-11-17 19:34 | C.PDOC ---
Time Seen by Provider: 11/17/18 19:33 Chief Complaint (Nursing): Shortness Of Breath Past Medical History Vital Signs: Last Vital Signs Temp 97.7 F 11/17/18 19:22 Pulse 89 11/17/18 19:22 Resp 20 11/17/18 19:22 BP 113/70 11/17/18 19:22 Pulse Ox 96 11/17/18 19:22 - Medical History PMH: Anxiety, Asthma, Bronchitis, COPD, Depression, Gastrointestinal Ulcer, HTN, Pneumonia Denies: Diabetes, Hepatitis, HIV, Chronic Kidney Disease, Seizures, Sexually Transmitted Disease Surgical History: Appendectomy, Tonsillectomy - [facility] Procedures CONTR ABD ARTERIOGRM NEC (05/20/07) DETOXIFICATION SERVICES FOR SUBSTANCE ABUSE TREATMENT (09/12/18) ESOPHAGOGASTRODUODENOSCOPY [EGD] W/CLOSED BIOPSY (05/20/07) EXCISION OF LOWER ESOPHAGUS, ENDO, DIAGN (05/21/17) EXTIRPATION OF MATTER FROM LOWER ESOPHAGUS, ENDO (05/21/17) GROUP DIAL LATHE OPERATOR FOR SUBSTANCE ABUSE TREATMENT, PSYCHOEDUCATION (10/27/18) GROUP DIAL LATHE OPERATOR FOR SUBSTANCE ABUSE, COGNITIVE BEHAVIORAL (10/27/18) GROUP PSYCHOTHERAPY (10/27/18) INDIV DIAL LATHE OPERATOR FOR SUBSTANCE ABUSE TREATMENT, PSYCHOEDUCATION (01/14/17) INDIV DIAL LATHE OPERATOR FOR SUBSTANCE ABUSE, COGNITIVE BEHAVIORAL (01/14/17) INDIV PSYCHOTHERAPY FOR SUBSTANCE ABUSE TREATMENT, SUPPORT (10/27/18) INDIV PSYCHOTHERAPY FOR SUBSTANCE ABUSE, COGNITIV BEHAVIORAL (10/27/18) INDIV PSYCHOTHERAPY FOR SUBSTANCE ABUSE, PSYCHOEDUCATION (10/27/18) INDIVIDUAL PSYCHOTHERAPY, COGNITIVE-BEHAVIORAL (10/27/18) INDIVIDUAL PSYCHOTHERAPY, SUPPORTIVE (10/27/18) INJECT/INFUSE NEC (03/20/12) MEDICATION MANAGEMENT (03/12/17) MEDS MGMT FOR SUBSTANCE ABUSE TREATMENT, OTH REPL MED (03/12/17) Family History: States: Unknown Family Hx - Social History Hx Tobacco Use: Yes Hx Alcohol Use: Yes Hx Substance Use: No - Immunization History Hx Tetanus Toxoid Vaccination: No Hx Influenza Vaccination: Yes Hx Pneumococcal Vaccination: Yes ED Course And Treatment O2 Sat by Pulse Oximetry: 96 Disposition Counseled Patient/Family Regarding: Studies Performed, Diagnosis - Disposition Disposition Time: 19:34
--- NOTE | 2018-11-17 19:36 | C.PDOC ---
History Of Present Illness 58 year old male is brought to the ED by EMS for evaluation of SOB. Patient also reports he fell and has been drinking tonight. Patient states he does not remember what happened or how he got here. Patient is homeless, and still smo kes1 ppd. Patient still a smoker. Patient denies fever, chills, nausea, vomit, headache,, dizziness, visual changes, rash, weakness, numbness, CP. Time Seen by Provider: 11/17/18 19:33 Chief Complaint (Nursing): Shortness Of Breath History Per: Patient, EMS History/Exam Limitations: no limitations Onset/Duration Of Symptoms: Hrs Current Symptoms Are (Timing): Still Present Severity: Moderate Pain Scale Rating Of: 4 Reports Recently: Seen In ED, Treated By A Physician, Hospitalized Recent travel outside of the [place]: No Additional History Per: Patient Past Medical History Reviewed: Historical Data, Nursing Documentation, Vital Signs Vital Signs: Last Vital Signs Temp 97.7 F 11/17/18 19:22 Pulse 89 11/17/18 19:22 Resp 20 11/17/18 19:22 BP 113/70 11/17/18 19:22 Pulse Ox 96 11/17/18 19:22 - Medical History PMH: Anxiety, Asthma, Bronchitis, COPD, Depression, Gastrointestinal Ulcer, HTN, Pneumonia Denies: Diabetes, Hepatitis, HIV, Chronic Kidney Disease, Seizures, Sexually Transmitted Disease Surgical History: Appendectomy, Tonsillectomy - [facility] Procedures CONTR ABD ARTERIOGRM NEC (05/20/07) DETOXIFICATION SERVICES FOR SUBSTANCE ABUSE TREATMENT (09/12/18) ESOPHAGOGASTRODUODENOSCOPY [EGD] W/CLOSED BIOPSY (05/20/07) EXCISION OF LOWER ESOPHAGUS, ENDO, DIAGN (05/21/17) EXTIRPATION OF MATTER FROM LOWER ESOPHAGUS, ENDO (05/21/17) GROUP NETWORKING SPECIALIST FOR SUBSTANCE ABUSE TREATMENT, PSYCHOEDUCATION (10/27/18) GROUP NETWORKING SPECIALIST FOR SUBSTANCE ABUSE, COGNITIVE BEHAVIORAL (10/27/18) GROUP PSYCHOTHERAPY (10/27/18) INDIV NETWORKING SPECIALIST FOR SUBSTANCE ABUSE TREATMENT, PSYCHOEDUCATION (01/14/17) INDIV NETWORKING SPECIALIST FOR SUBSTANCE ABUSE, COGNITIVE BEHAVIORAL (01/14/17) INDIV PSYCHOTHERAPY FOR SUBSTANCE ABUSE TREATMENT, SUPPORT (10/27/18) INDIV PSYCHOTHERAPY FOR SUBSTANCE ABUSE, COGNITIV BEHAVIORAL (10/27/18) INDIV PSYCHOTHERAPY FOR SUBSTANCE ABUSE, PSYCHOEDUCATION (10/27/18) INDIVIDUAL PSYCHOTHERAPY, COGNITIVE-BEHAVIORAL (10/27/18) INDIVIDUAL PSYCHOTHERAPY, SUPPORTIVE (10/27/18) INJECT/INFUSE NEC (03/20/12) MEDICATION MANAGEMENT (03/12/17) MEDS MGMT FOR SUBSTANCE ABUSE TREATMENT, OTH REPL MED (03/12/17) Family History: States: Unknown Family Hx - Social History Hx Tobacco Use: Yes Hx Alcohol Use: Yes Hx Substance Use: No - Immunization History Hx Tetanus Toxoid Vaccination: No Hx Influenza Vaccination: Yes Hx Pneumococcal Vaccination: Yes Review Of Systems Constitutional: Negative for: Fever, Chills Eyes: Negative for: Vision Change ENT: Negative for: Throat Pain Cardiovascular: Negative for: Chest Pain, Palpitations Respiratory: Positive for: Shortness of Breath. Negative for: Cough, Sputum Gastrointestinal: Negative for: Nausea, Vomiting, Abdominal Pain Musculoskeletal: Negative for: Neck Pain Skin: Negative for: Rash Neurological: Negative for: Weakness, Numbness, Headache, Dizziness Psych: Negative for: Anxiety Physical Exam - Physical Exam Appears: Non-toxic Skin: Warm, Dry, Other (small healing abrasion right forearm ) Head: Normacephalic Eye(s): bilateral: Normal Inspection Oral Mucosa: Dry Neck: Supple Chest: Symmetrical Cardiovascular: Rhythm Regular Respiratory: Decreased Breath Sounds (bilaterally), No Rales, Rhonchi, Wheezing Gastrointestinal/Abdominal: Soft, No Tenderness, No Guarding, No Rebound Back: CVA Tenderness Extremity: Normal ROM Extremity: Bilateral: Atraumatic, Normal Color And Temperature, Normal ROM Pulses: Left Dorsalis Pedis: Normal, Right Dorsalis Pedis: Normal Neurological/Psych: Oriented x3, Normal Speech, Normal Cognition Gait: Steady ED Course And Treatment - Laboratory Results Result Diagrams: 11/17/18 18:10 11/17/18 18:10 O2 Sat by Pulse Oximetry: 96 (ON RA) Pulse Ox Interpretation: Normal - Radiology CXR: Interpreted by Me, Viewed By Me CXR Interpretation: Yes: COPD, Other (unchnaged from 11/07/18). No: Infiltrates, Fracture, Cardiomegaly - CT Scan/US CT head Other Rad Studies (CT/US): Read By Radiologist, Radiology Report Reviewed CT/US Interpretation: EXAM: CT Head without Intravenous Contrast. CLINICAL HISTORY: Fall. TECHNIQUE: Axial computed tomography images of the head/brain without intravenous contrast. COMPARISON: None provided. FINDINGS: BRAIN. Mild chronic periventricular and subcortical microvascular disease is seen. VENTRICLES: There is mild generalized parenchymal atrophy noted as demonstrated by symmetrical dilatation of ventricles and sulci. ORBITS: The orbits are unremarkable. SINUSES AND MASTOIDS: Bilateral ethmoid sinusitis. Right mastoiditis. BONES: No fracture. SOFT TISSUES: Unremarkable. MISCELLANEOUS: No acute intracranial pathology. IMPRESSION: 1. There is mild generalized parenchymal atrophy noted as demonstrated by symmetrical dilatation of ventricles and sulci. 2. Mild chronic periventricular and subcortical microvascular disease is seen. 3. Bilateral ethmoid sinusitis. 4. Right mastoiditis. 5. No acute intracranial pathology. . Electronically signed on Nov 17, 2018 9:05:36 PM EST by: Altaf Andino M.D., NICOLASA Certified By ABR & CBCCT. Fellowship Trained MRI and CT Specialist. Progress Note: Plan: - CT head. - Labs. - Duoneb. - UA Reevaluation Time: 05:07 Reassessment Condition: Improved Disposition Counseled Patient/Family Regarding: Studies Performed, Diagnosis, Need For Followup, Rx Given, Smoking Cessation - Disposition Referrals: [facility] [Outside] [facility] [Outside] Disposition: HOME/ ROUTINE Disposition Time: 19:35 Condition: FAIR Additional Instructions: Please return if symptoms recur Prescriptions: Albuterol HFA [Ventolin HFA 90 mcg/actuation (8 g)] 2 puff IH [id number] #1 puff Instructions: Chronic Obstructive Pulmonary Disease (COPD), Including Emphysema, Alcohol Abuse and Alcoholism (DC) Forms: [employer] (Hebrew) - Clinical Impression Clinical Impression: COPD (chronic obstructive pulmonary disease), Alcohol intoxication - Scribe Statement The provider has reviewed the documentation as recorded by the Scribe Jose J Ceballos All medical record entries made by the Scribe were at my direction and personall y dictated by me. I have reviewed the chart and agree that the record accurately reflects my personal performance of the history, physical exam, medical decision making, and the department course for this patient. I have also personally directed, reviewed, and agree with the discharge instructions and disposition.
[2018-11-17] MEDS ORDERED: Albuterol-Ipratrop 3 mg / 0.5 (3 ml) UD ONE (19:38)
[2018-11-17] MEDS: Albuterol-Ipratrop 3 mg / 0.5 (3 ml) UD IH SCH ×3 (19:45→20:15)
[2018-11-17 20:19] LABS: BASO % 0.4 % (0.0-2.0); EOS % 0.3 % (0.0-4.0); HEMOGLOBIN 11.9 g/dL (12.0-18.0); LYMPH # 1.8 K/uL (1.0-4.3); LYMPH % 21.4 % (20.0-40.0); MEAN CELL VOLUME 82.3 fL (80.0-94.0); MEAN CORPUSCULAR HEMOGLOBIN 26.3 pg (27.0-31.0); MEAN PLATELET VOLUME 7.2 fL (7.2-11.7); MONO # 0.4 K/uL (0.0-0.8); MONO % 5.3 % (0.0-10.0); NEUT % 72.6 % (50.0-75.0); NRBC % 0.1 % (0.0-2.0); RBC 4.51 Mil/uL (4.40-5.90); RED CELL DISTRIBUTION WIDTH 23.5 % (11.5-14.5); WHITE BLOOD COUNT 8.3 K/uL (4.8-10.8)
[2018-11-17 20:51] LABS: ALB/GLOB RATIO 1.5 (1.0-2.1); ALBUMIN 4.1 g/dL (3.5-5.0); ALT/SGPT 25 U/L (21-72); AST/SGOT 27 U/L (17-59); BLOOD UREA NITROGEN 6 mg/dL (9-20); CALCIUM 8.2 mg/dl (8.6-10.4); GFR NON-AFRICAN AMERICAN > 60
[2018-11-17 21:02] LABS: ABG ALLEN TEST PO; ARTERIAL BLOOD GAS HCO3 23.6 mmol/L (21-28); ARTERIAL BLOOD GAS O2 SAT 96.2 % (95-98); ARTERIAL BLOOD GAS PCO2 41 mm/Hg (35-45); ARTERIAL BLOOD GAS PH 7.37 (7.35-7.45); ARTERIAL BLOOD GAS PO2 70 mm/Hg (80-100)
[2018-11-18] LABS: URINE BILIRUBIN NEGATIVE (NEGATIVE); URINE BLOOD NEGATIVE (NEGATIVE); URINE CLARITY Clear (Clear); URINE COLOR Straw (YELLOW); URINE GLUCOSE (UA) NORMAL (Normal); URINE LEUKOCYTE ESTERASE NEG Leu/uL (Negative); URINE PROTEIN NEGATIVE (NEGATIVE); URINE UROBILINOGEN NORMAL mg/dL (0.2-1.0)
[2018-11-18 00:23] LABS: BARBITURATES, UR NEGATIVE (NEGATIVE); BENZODIAZEPINES, UR NEGATIVE (NEGATIVE); OPIATES, UR NEGATIVE (NEGATIVE); PHENCYCLIDINE, UR NEGATIVE (NEGATIVE)
[2018-11-18 05:10] VITALS: O2SAT 96
[2018-11-18 06:20] VITALS: BP 150/87; PULSE 110; TEMP 98.7
--- NOTE | 2018-11-18 08:50 | RAD ---
Date of service: 11/17/2018 HISTORY: sob COMPARISON: None available. FINDINGS: LUNGS: No active pulmonary disease. PLEURA: No significant pleural effusion identified, no pneumothorax apparent. CARDIOVASCULAR: No aortic atherosclerotic calcification present. Normal cardiac size. No pulmonary vascular congestion. OSSEOUS STRUCTURES: Old healed lateral right 9th rib fracture reiterated. VISUALIZED UPPER ABDOMEN: Normal. OTHER FINDINGS: None. IMPRESSION: No interval acute cardiopulmonary disease appreciated.
--- NOTE | 2018-11-18 10:29 | CT ---
Date of service: 11/17/2018 PROCEDURE: CT HEAD WITHOUT CONTRAST. HISTORY: fall COMPARISON: 07/14/2017 CT head TECHNIQUE: Axial computed tomography images were obtained through the head/brain without intravenous contrast. Supplemental Coronal and Sagittal projections created and reviewed. Radiation dose: Total exam DLP = 1158.57 mGy-cm. This CT exam was performed using one or more of the following dose reduction techniques: Automated exposure control, adjustment of the mA and/or kV according to patient size, and/or use of iterative reconstruction technique. FINDINGS: HEMORRHAGE: No intracranial hemorrhage. BRAIN: No mass effect or edema. Cortical atrophy and chronic microvascular ischemic change. VENTRICLES: Unremarkable. No hydrocephalus. CALVARIUM: Unremarkable. PARANASAL SINUSES: Unremarkable as visualized. No significant inflammatory changes. MASTOID AIR CELLS: Unremarkable as visualized. No inflammatory changes. OTHER FINDINGS: None. IMPRESSION: No acute intracranial abnormalities. No significant findings to account for the clinical presentation. No significant interval change compared to the prior examination(s). Concordant results (preliminary interpretation) provided by [facility]. Procedure Completed: 20:40. Preliminary Report: Dictated and Authenticated: 21:05. Final Interpretation: 10:25. November 18, 2018
== END 2018-11-18 06:00 | disposition home or self-care (01) ==
LOC: C.ER 19:09
DX: J44.9 Chronic obstructive pulmonary disease, unspecified (principal); F10.129 Alcohol abuse with intoxication, unspecified; I10 Essential (primary) hypertension; Z59.0 Homelessness; Z72.0 Tobacco use

== ENCOUNTER 2018-11-22 13:37 | Inpatient (IN) | payer MEDICAID ==
[2018-11-22 13:48] VITALS: BMI 18.8
[2018-11-22] MEDS ORDERED: Albuterol-Ipratrop 3 mg / 0.5 (3 ml) UD INH STA ×3 (14:22→15:50)
[2018-11-22] MEDS ORDERED: Albuterol-Ipratrop 3 mg / 0.5 (3 ml) UD ONE ×2 (14:25→15:58)
--- NOTE | 2018-11-22 15:44 | RAD ---
Date of service: 11/22/2018 HISTORY: dyspnea COMPARISON: 11/17/2018. FINDINGS: LUNGS: The lungs are hyperinflated and there is peribronchial thickening with chronic changes in both lungs. No focal consolidation. PLEURA: No pleural effusions or pneumothorax. CARDIOVASCULAR: The heart is normal in size. No aortic atherosclerotic calcification present. OSSEOUS STRUCTURES: Within normal limits for the patient's age. VISUALIZED UPPER ABDOMEN: Normal. OTHER FINDINGS: None. IMPRESSION: No active pulmonary disease. COPD.
[2018-11-22 15:48] LABS: BASO % 0.1 % (0.0-2.0); EOS % 0.2 % (0.0-4.0); HEMOGLOBIN 11.8 g/dL (12.0-18.0); LYMPH % 8.4 % (20.0-40.0); MEAN CELL VOLUME 82.4 fL (80.0-94.0); MEAN CORPUSCULAR HEMOGLOBIN 26.4 pg (27.0-31.0); MEAN CORPUSCULAR HGB CONC 32.1 g/dL (33.0-37.0); MEAN PLATELET VOLUME 7.3 fL (7.2-11.7); MONO # 0.3 K/uL (0.0-0.8); MONO % 2.3 % (0.0-10.0); NEUT # 10.3 K/uL (1.8-7.0); PLATELET COUNT 331 K/uL (130-400); RBC 4.47 Mil/uL (4.40-5.90); RED CELL DISTRIBUTION WIDTH 23.1 % (11.5-14.5); WHITE BLOOD COUNT 11.5 K/uL (4.8-10.8)
[2018-11-22] MEDS ORDERED: Magnesium Sulfate 1 gm in D5W 1 GM/100 ML BAG IVPB ONE ×2 (15:58→17:10)
[2018-11-22] MEDS: Magnesium Sulfate 1 gm in D5W 1 GM/100 ML BAG IVPB SCH ×2 (16:02→17:00)
[2018-11-22 16:04] LABS: BANDS 1 % (0-2); LYMPHOCYTE 7 % (20-40); MONOCYTE 2 % (0-10); NEUTROPHIL 90 % (50-75); PLATELET ESTIMATE NORMAL (NORMAL); TOTAL CELLS COUNTED 100
[2018-11-22 16:06] LABS: ANISOCYTOSIS MODERATE; BLOOD UREA NITROGEN 8 mg/dL (9-20); CALCIUM 8.5 mg/dl (8.6-10.4); GFR NON-AFRICAN AMERICAN > 60; HYPOCHROMIC MODERATE; POLYCHROMIC SLIGHT; TOXIC GRANULATION PRESENT
[2018-11-22 16:07] LABS: OVALOCYTES SLIGHT; POIKILOCYTOSIS SLIGHT
[2018-11-22 16:08] LABS: SCHISTOCYTES SLIGHT
--- NOTE | 2018-11-22 16:53 | C.PDOC ---
History Of Present Illness 58 year old male with a history of COPD, who smokes several cigarettes a day (6 today), presents to the emergency department with complaints of 4-5 days of increased shortness of breath and cough. Patient states that he tried taking Albuterol and nebulizers at home with no relief of symptoms. On route via EMS, patient received Solu-Medrol, Albuterol, and Duoneb. Time Seen by Provider: 11/22/18 14:27 Chief Complaint (Nursing): Shortness Of Breath History Per: Patient History/Exam Limitations: no limitations Onset/Duration Of Symptoms: Days (4-5) Current Symptoms Are (Timing): Still Present Current Respiratory Medications: Albuterol, Other (nebulizer) Associated Symptoms: Other (shortness of breath) Past Medical History Reviewed: Historical Data, Nursing Documentation, Vital Signs Vital Signs: Last Vital Signs Temp 97.6 F 11/22/18 13:44 Pulse 114 H 11/22/18 15:42 Resp 20 11/22/18 15:42 BP 168/97 H 11/22/18 13:44 Pulse Ox 97 11/22/18 15:42 - Medical History PMH: Anxiety, Asthma, Bronchitis, COPD, Depression, Gastrointestinal Ulcer, HTN, Pneumonia Denies: Diabetes, Hepatitis, HIV, Chronic Kidney Disease, Seizures, Sexually Transmitted Disease Surgical History: Appendectomy, Tonsillectomy - [facility] Procedures CONTR ABD ARTERIOGRM NEC (05/20/07) DETOXIFICATION SERVICES FOR SUBSTANCE ABUSE TREATMENT (09/12/18) ESOPHAGOGASTRODUODENOSCOPY [EGD] W/CLOSED BIOPSY (05/20/07) EXCISION OF LOWER ESOPHAGUS, ENDO, DIAGN (05/21/17) EXTIRPATION OF MATTER FROM LOWER ESOPHAGUS, ENDO (05/21/17) GROUP GRINDER OPERATOR EXTERNAL TOOL FOR SUBSTANCE ABUSE TREATMENT, PSYCHOEDUCATION (10/27/18) GROUP GRINDER OPERATOR EXTERNAL TOOL FOR SUBSTANCE ABUSE, COGNITIVE BEHAVIORAL (10/27/18) GROUP PSYCHOTHERAPY (10/27/18) INDIV GRINDER OPERATOR EXTERNAL TOOL FOR SUBSTANCE ABUSE TREATMENT, PSYCHOEDUCATION (01/14/17) INDIV GRINDER OPERATOR EXTERNAL TOOL FOR SUBSTANCE ABUSE, COGNITIVE BEHAVIORAL (01/14/17) INDIV PSYCHOTHERAPY FOR SUBSTANCE ABUSE TREATMENT, SUPPORT (10/27/18) INDIV PSYCHOTHERAPY FOR SUBSTANCE ABUSE, COGNITIV BEHAVIORAL (10/27/18) INDIV PSYCHOTHERAPY FOR SUBSTANCE ABUSE, PSYCHOEDUCATION (10/27/18) INDIVIDUAL PSYCHOTHERAPY, COGNITIVE-BEHAVIORAL (10/27/18) INDIVIDUAL PSYCHOTHERAPY, SUPPORTIVE (10/27/18) INJECT/INFUSE NEC (03/20/12) MEDICATION MANAGEMENT (03/12/17) MEDS MGMT FOR SUBSTANCE ABUSE TREATMENT, OTH REPL MED (03/12/17) Family History: States: No Known Family Hx - Social History Hx Tobacco Use: Yes Hx Alcohol Use: Yes Hx Substance Use: No - Immunization History Hx Tetanus Toxoid Vaccination: Yes Hx Influenza Vaccination: Yes Hx Pneumococcal Vaccination: Yes Review Of Systems Constitutional: Negative for: Fever, Chills Cardiovascular: Negative for: Chest Pain Respiratory: Positive for: Cough, Shortness of Breath Gastrointestinal: Negative for: Nausea, Vomiting, Abdominal Pain Physical Exam - Physical Exam Appears: Well, Non-toxic, No Acute Distress Skin: Normal Color, Warm, Dry Head: Atraumatic, Normacephalic Eye(s): bilateral: Normal Inspection, PERRL, EOMI Oral Mucosa: Moist Neck: Normal, Supple Chest: Symmetrical, No Tenderness Cardiovascular: Rhythm Regular (tachycardic), No Murmur Respiratory: Normal Breath Sounds, No Rales, No Rhonchi, Wheezing (diffuse expiratory wheezing) Gastrointestinal/Abdominal: Soft, No Tenderness, No Guarding, No Rebound Extremity: Normal ROM Neurological/Psych: Oriented x3, Normal Speech ED Course And Treatment - Laboratory Results Result Diagrams: 11/22/18 15:44 11/22/18 15:44 ECG: Interpreted By Me, Viewed By Me Interpretation Of ECG: Sinus tachycardia 121bpm, frequent PVT, normal axis, normal intervals, no ST-T elevation O2 Sat by Pulse Oximetry: 97 (RA) Pulse Ox Interpretation: Normal - Radiology CXR: Read By Radiologist CXR Interpretation: Yes: No Acute Disease, COPD Medical Decision Making Medical Decision Making: Plan: EKG Chemistry Bloodwork CXR Albuterol Magnesium Patient given duoneb x2 and magnesium here in the ED, in addition to everything he already received pre-hospital. Despite all of this treatment he remained tachypneic with audible wheezing, having trouble speaking in full sentences. Decision made to admit for further management. Case discussed with Dr. Gonzalez, patient's PMD, who accepts patient to his service. Disposition - Disposition Disposition: HOSPITALIZED Disposition Time: 17:30 Condition: STABLE - Clinical Impression Clinical Impression: COPD (chronic obstructive pulmonary disease) - Scribe Statement The provider has reviewed the documentation as recorded by the Scribe (Jeff Cowan) Provider Attestation: All medical record entries made by the Scribe were at my direction and personally dictated by me. I have reviewed the chart and agree that the record accurately reflects my personal performance of the history, physical exam, medical decision making, and the department course for this patient. I have also personally directed, reviewed, and agree with the discharge instructions and disposition.
[2018-11-22] MEDS: Albuterol-Ipratrop 3 mg / 0.5 (3 ml) UD INH SCH (19:48)
[2018-11-22] MEDS: MethylPREDNISolone 40 mg Vial IVP SCH (21:41)
[2018-11-23] MEDS: Albuterol-Ipratrop 3 mg / 0.5 (3 ml) UD INH SCH ×6 (04:00→20:52)
[2018-11-23] MEDS: MethylPREDNISolone 40 mg Vial IVP SCH ×3 (05:38→21:50)
[2018-11-23 07:57] LABS: BASO % 0.2 % (0.0-2.0); HEMOGLOBIN 10.2 g/dL (12.0-18.0); LYMPH # 0.9 K/uL (1.0-4.3); LYMPH % 10.3 % (20.0-40.0); MEAN CELL VOLUME 81.5 fL (80.0-94.0); MEAN CORPUSCULAR HEMOGLOBIN 26.6 pg (27.0-31.0); MEAN CORPUSCULAR HGB CONC 32.7 g/dL (33.0-37.0); MONO # 0.2 K/uL (0.0-0.8); MONO % 2.5 % (0.0-10.0); NEUT # 7.3 K/uL (1.8-7.0); RBC 3.84 Mil/uL (4.40-5.90); RED CELL DISTRIBUTION WIDTH 22.3 % (11.5-14.5); WHITE BLOOD COUNT 8.4 K/uL (4.8-10.8)
[2018-11-23 08:32] LABS: ALB/GLOB RATIO 1.2 (1.0-2.1); ALBUMIN 3.4 g/dL (3.5-5.0); ALT/SGPT 17 U/L (21-72); AST/SGOT 29 U/L (17-59); BLOOD UREA NITROGEN 8 mg/dL (9-20); CALCIUM 8.2 mg/dl (8.6-10.4); GFR NON-AFRICAN AMERICAN > 60
[2018-11-23] MEDS: Moxifloxacin IV 400mg/250ml NS 400 MG/250 ML BAG IVPB SCH (09:57)
[2018-11-23] MEDS: Pantoprazole 40 mg EC Tab PO SCH (10:14)
[2018-11-23] MEDS: Enoxaparin 40 mg Syringe SC SCH (10:14)
[2018-11-23] MEDS: Multiple Vitamins Tab PO SCH (10:14)
[2018-11-23] MEDS: guaiFENesin DM 100 mg-10 mg/5 ml UD PO PRN (10:20)
[2018-11-24] MEDS: MethylPREDNISolone 40 mg Vial IVP SCH ×3 (05:30→21:03)
[2018-11-24] MEDS: guaiFENesin DM 100 mg-10 mg/5 ml UD PO PRN ×3 (05:30→11:18)
--- NOTE | 2018-11-24 07:19 | HP ---
HISTORY OF PRESENT ILLNESS: A 58-year-old male with history of severe COPD, admitted to the hospital with chief complaints of shortness of breath, weakness, severe fatigue, tiredness, and cough. The patient came to the ER, advised admission. PHYSICAL EXAMINATION: GENERAL: The patient is awake, alert, and oriented. Short of breath at rest. VITAL SIGNS: Temperature 98, pulse 90. HEENT: Within normal limits. NECK: Supple. CHEST: Symmetrical. HEART: Regular. ABDOMEN: Soft. EXTREMITIES: No edema. ASSESSMENT AND PLAN: The patient suffers from chronic obstructive pulmonary disease and bronchitis. The patient is to get bed rest. Bronchodilators. Supportive care. Dino Gonzalez MD
--- NOTE | 2018-11-24 07:36 | CP.PCM.PN ---
Subjective - Date & Time of Evaluation Date of Evaluation: 11/24/18 Time of Evaluation: 07:36 - Subjective Subjective: Progress note for Dr. Gonzalez Patient is a 58 year old homeless male with a past medical history of COPD, HTN, depression, polysubstance abuse (tobacco, alcohol, marijuana), BPH, who presented with complains of shortness of breath for approximately 3 days. He was using his albuterol every 2 hours and his maintenance inhaler once a day. He recently went to the ER on 11/17/18 for similar complaints, and was admitted on 11/08/18 and discharged on 11/09/18 for a COPD exacerbation. The patient reported having chills and a chronic cough (sometimes productive of white sputum), but denies having fevers, nausea, vomiting, hemoptysis, chest pain, palpitations, dysuria, constipation, and diarrhea. He currently complaints of chills and a cough productive of white sputum, but states he is feeling slightly better today. 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 PMHx: COPD, HTN, depression, polysubstance abuse (tobacco, alcohol, marijuana), BPH, chronic pain/neuropathy PSHx: 3 surgeries related to peptic ulcer disease/ perforated ulcer FamHx: unknown, adopted SocialHx: Current smoker (/4ppd; previously smoked 1ppd since he was 10 year old); smokes marijuana once per month, otherwise, denies other ellicit drug use; drinks 1 24oz can of beer daily (last drink was one beer prior to admission) Allergies: NKDA Objective - Vital Signs/Intake and Output Vital Signs (last 24 hours): Temp Pulse Resp BP Pulse Ox 97.9 F 103 H 20 121/67 96 11/24/18 00:00 11/24/18 00:00 11/24/18 00:00 11/24/18 00:00 11/24/18 00:00 Intake and Output: 11/24/18 11/24/18 06:59 18:59 Intake Total 520 Output Total 900 Balance -380 - Medications Medications: Current Medications Albuterol/Ipratropium (Duoneb 3 Mg/0.5 Mg (3 Ml) Ud) 3 ml INH RQ4 [facility] Last Admin: 11/23/18 20:52 Dose: 3 ml Enoxaparin Sodium (Lovenox) 40 mg SC DAILY [facility] Last Admin: 11/23/18 10:14 Dose: 40 mg Escitalopram Oxalate (Lexapro) 20 mg PO DAILY [facility] Last Admin: 11/23/18 10:29 Dose: 20 mg Gabapentin (Neurontin) 100 mg PO TID [facility] Last Admin: 11/23/18 17:45 Dose: 100 mg Guaifenesin/Dextromethorphan (Robitussin Dm) 5 ml PO BID PRN PRN Reason: Cough Last Admin: 11/24/18 05:30 Dose: 5 ml Moxifloxacin HCl (Avelox Iv 400mg/250ml Ns) 400 mg in 250 mls @ 167 mls/hr IVPB Q24H [facility]; Protocol Last Admin: 11/23/18 09:57 Dose: 167 mls/hr Ketorolac Tromethamine (Toradol) 30 mg IVP Q8 PRN PRN Reason: Pain, moderate (4-7) Last Admin: 11/23/18 14:35 Dose: 30 mg Lisinopril (Zestril) 10 mg PO DAILY [facility] Last Admin: 11/23/18 10:14 Dose: 10 mg Methylprednisolone (Solu-Medrol) 40 mg IVP Q8 [facility] Last Admin: 11/24/18 05:30 Dose: 40 mg Multivitamins (Hexavitamin) 1 tab PO DAILY [facility] Last Admin: 11/23/18 10:14 Dose: 1 tab Pantoprazole Sodium (Protonix Ec Tab) 40 mg PO DAILY [facility] Last Admin: 11/23/18 10:14 Dose: 40 mg Tamsulosin HCl (Flomax) 0.4 mg PO DAILY [facility] Last Admin: 11/23/18 10:14 Dose: 0.4 mg Thiamine HCl (Vitamin B1 Tab) 100 mg PO DAILY [facility] Last Admin: 11/23/18 10:14 Dose: 100 mg Zolpidem Tartrate (Ambien) 10 mg PO HS PRN PRN Reason: Insomnia - Labs Labs: 11/23/18 07:43 11/23/18 07:43 - Constitutional Appears: No Acute Distress - Head Exam Head Exam: NORMAL INSPECTION - Eye Exam Eye Exam: EOMI, Normal appearance - ENT Exam ENT Exam: Mucous Membranes Moist - Respiratory Exam Respiratory Exam: Rhonchi, Wheezes (bilateral and throughtout all lung correia). absent: Clear to Ausculation Bilateral, Respiratory Distress - Cardiovascular Exam Cardiovascular Exam: REGULAR RHYTHM, +S1, +S2 - GI/Abdominal Exam GI & Abdominal Exam: Soft, Normal Bowel Sounds. absent: Distended, Firm, Guarding, Tenderness - Extremities Exam Extremities Exam: Pedal Edema (1+ b/l). absent: Calf Tenderness, Tenderness - Neurological Exam Neurological Exam: Alert, Awake, Oriented x3 - Psychiatric Exam Psychiatric exam: Normal Affect, Normal Mood - Skin Skin Exam: Dry, Intact, Normal Color, Warm Assessment and Plan - Assessment and Plan (Free Text) Plan: 58 year old male with a past medical history of COPD, polysubstance use (alcohol, tobacco), and depression who presents for worsening SOB and cough. The patient was in the ER with similar complaints on 11/17/18, and recently discharged on 11/09/18 for COPD exacerbation. Plan: COPD exacerbation Chest X-ray (11/22/18): No active pulmonary disease. COPD. Medications: - Duonebs 3ML INH RQ4H - Solu-medrol 40mg IV Q8H - Robitussin 100mg PO BID PRN - Moxifloxacin 400mg IV daily (active since 11/23/18) Depression Medications: - Lexapro 20mg PO daily - Remeron 15mg PO HS Chronic pain - Gabapentin 100mg PO Q4H - Toradol 30mg IV Q8 prn HTN - Lisinopril 10mg PO daily BPH - Flomax 0.4mg PO daily Insomnia - Ambien 10mg PO HS PRN Ppx: - GI: Protonix 40mg PO daily - DVT: Lovenox 40mg SC daily Case discussed with Dr. Gonzalez. All medical management per Dr. Lisa Esqueda, PGY2
[2018-11-24] MEDS: Albuterol-Ipratrop 3 mg / 0.5 (3 ml) UD INH SCH ×5 (08:00→23:52)
[2018-11-24] MEDS: Moxifloxacin IV 400mg/250ml NS 400 MG/250 ML BAG IVPB SCH (09:41)
[2018-11-24] MEDS: Pantoprazole 40 mg EC Tab PO SCH (09:42)
[2018-11-24] MEDS: Multiple Vitamins Tab PO SCH (09:42)
[2018-11-24] MEDS: Enoxaparin 40 mg Syringe SC SCH (09:42)
--- NOTE | 2018-11-24 13:28 | CARD ---
APPROVED REPORT Date of service: 11/22/2018 EKG Measurement Heart [id number] <Conclusion> Sinus tachycardia with frequent premature ventricular complexes Biatrial enlargement Abnormal ECG
[2018-11-25] MEDS: Albuterol-Ipratrop 3 mg / 0.5 (3 ml) UD INH SCH ×5 (03:26→23:52)
[2018-11-25] MEDS: MethylPREDNISolone 40 mg Vial IVP SCH ×3 (05:37→22:22)
[2018-11-25] MEDS: Enoxaparin 40 mg Syringe SC SCH (10:02)
[2018-11-25] MEDS: guaiFENesin DM 100 mg-10 mg/5 ml UD PO PRN (10:02)
[2018-11-25] MEDS: Multiple Vitamins Tab PO SCH (10:03)
[2018-11-25] MEDS: Pantoprazole 40 mg EC Tab PO SCH (10:03)
[2018-11-25] MEDS: Moxifloxacin IV 400mg/250ml NS 400 MG/250 ML BAG IVPB SCH (10:24)
[2018-11-26] MEDS: Albuterol-Ipratrop 3 mg / 0.5 (3 ml) UD INH SCH ×5 (03:15→20:06)
[2018-11-26] MEDS: MethylPREDNISolone 40 mg Vial IVP SCH ×3 (05:40→22:36)
--- NOTE | 2018-11-26 07:20 | CP.PCM.PN ---
Subjective - Date & Time of Evaluation Date of Evaluation: 11/26/18 Time of Evaluation: 07:46 - Subjective Subjective: Medicine Note for Dr. Gonzalez's Service Patient was seen and examined at bedside. Patient reports he feels congested, admitted to productive cough with white sputum. ROS unremarkable otherwise. Objective - Vital Signs/Intake and Output Vital Signs (last 24 hours): Temp Pulse Resp BP Pulse Ox 97.7 F 110 H 20 171/105 H 96 11/26/18 01:00 11/26/18 06:00 11/26/18 06:00 11/26/18 06:00 11/26/18 06:00 Intake and Output: 11/26/18 11/26/18 06:59 18:59 Intake Total 700 Output Total 550 Balance 150 - Medications Medications: Current Medications Albuterol/Ipratropium (Duoneb 3 Mg/0.5 Mg (3 Ml) Ud) 3 ml INH RQ4 [facility] Last Admin: 11/26/18 03:15 Dose: Not Given Enoxaparin Sodium (Lovenox) 40 mg SC DAILY [facility] Last Admin: 11/25/18 10:02 Dose: 40 mg Escitalopram Oxalate (Lexapro) 20 mg PO DAILY [facility] Last Admin: 11/25/18 10:03 Dose: 20 mg Gabapentin (Neurontin) 100 mg PO TID [facility] Last Admin: 11/25/18 17:05 Dose: 100 mg Guaifenesin/Dextromethorphan (Robitussin Dm) 5 ml PO Q4H PRN PRN Reason: Cough Last Admin: 11/25/18 10:02 Dose: 5 ml Moxifloxacin HCl (Avelox Iv 400mg/250ml Ns) 400 mg in 250 mls @ 167 mls/hr IVPB Q24H [facility]; Protocol Last Admin: 11/25/18 10:24 Dose: 167 mls/hr Lisinopril (Zestril) 10 mg PO DAILY [facility] Last Admin: 11/26/18 06:05 Dose: 10 mg Methylprednisolone (Solu-Medrol) 40 mg IVP Q8 [facility] Last Admin: 11/26/18 05:40 Dose: 40 mg Multivitamins (Hexavitamin) 1 tab PO DAILY [facility] Last Admin: 11/25/18 10:03 Dose: 1 tab Pantoprazole Sodium (Protonix Ec Tab) 40 mg PO DAILY [facility] Last Admin: 11/25/18 10:03 Dose: 40 mg Tamsulosin HCl (Flomax) 0.4 mg PO DAILY [facility] Last Admin: 11/25/18 10:03 Dose: 0.4 mg Thiamine HCl (Vitamin B1 Tab) 100 mg PO DAILY [facility] Last Admin: 11/25/18 10:03 Dose: 100 mg Zolpidem Tartrate (Ambien) 10 mg PO HS PRN PRN Reason: Insomnia - Labs Labs: 11/23/18 07:43 11/23/18 07:43 - Constitutional Appears: No Acute Distress, Chronically Ill - Head Exam Head Exam: NORMAL INSPECTION, NORMOCEPHALIC - Eye Exam Eye Exam: EOMI, Normal appearance, PERRL Pupil Exam: NORMAL ACCOMODATION - ENT Exam ENT Exam: Normal Exam - Respiratory Exam Respiratory Exam: Decreased Breath Sounds - Cardiovascular Exam Cardiovascular Exam: +S1, +S2 - GI/Abdominal Exam GI & Abdominal Exam: Soft, Normal Bowel Sounds. absent: Distended, Tenderness - Extremities Exam Extremities Exam: absent: Pedal Edema, Tenderness - Neurological Exam Neurological Exam: Alert, Awake, Oriented x3 - Psychiatric Exam Psychiatric exam: Normal Affect, Normal Mood - Skin Skin Exam: Dry, Intact, Normal Color, Warm Assessment and Plan - Assessment and Plan (Free Text) Plan: COPD Exacerbation Imaging: Chest X-ray (11/22/18): No active pulmonary disease. COPD Management: - Duonebs 3ML INH RQ4H - Solu-medrol 40mg IV Q12H - Robitussin 100mg PO BID PRN - Added Breo Ellipta 100-25 Mcg 1 puff daily - Moxifloxacin 400mg IV daily (active since 11/23/18) HTN - Lisinopril 10mg PO daily Depression - Lexapro 20mg PO daily Chronic pain - Gabapentin 100mg PO Q4H B[facility] - Flomax 0.4mg PO daily Insomnia - Ambien 10mg PO HS PRN Prophylactic Measures - GI: Protonix 40mg PO daily (on steroids) - DVT: Lovenox 40mg SC daily Disposition: Patient to be discharged tomorrow morning before 11am so patient can make it to [facility] before 12pm or if vp digital marketing social media and crm [facility] can find out if patient qualifies and IF he is amendable to going to a [facility]dc care facility. Case discussed with Chandni Allen DO PGY2
[2018-11-26] MEDS: Fluticasone-Vilanterol 100/25mcg Diskus INH SCH (09:00)
[2018-11-26] MEDS: Pantoprazole 40 mg EC Tab PO SCH (09:51)
[2018-11-26] MEDS: Multiple Vitamins Tab PO SCH (10:08)
[2018-11-26] MEDS: Moxifloxacin IV 400mg/250ml NS 400 MG/250 ML BAG IVPB SCH (10:09)
[2018-11-26] MEDS: Enoxaparin 40 mg Syringe SC SCH (10:10)
[2018-11-26] MEDS: guaiFENesin DM 100 mg-10 mg/5 ml UD PO PRN (10:14)
[2018-11-27] MEDS: Albuterol-Ipratrop 3 mg / 0.5 (3 ml) UD INH SCH ×6 (00:35→19:05)
--- NOTE | 2018-11-27 07:02 | CP.PCM.PN ---
Subjective - Date & Time of Evaluation Date of Evaluation: 11/27/18 Time of Evaluation: 07:02 - Subjective Subjective: Progress note for Dr. Gonzalez Patient was seen and examined at bedside in no acute distress. Patient complains of wheezing and cough; he states he feels slightly better. The patient denies chest pain, palpitations, vomiting, fevers, headaches, abdominal pain, constipation, and diarrhea. Objective - Vital Signs/Intake and Output Vital Signs (last 24 hours): Temp Pulse Resp BP Pulse Ox 98.1 F 100 H 18 125/79 98 11/26/18 23:10 11/26/18 23:10 11/26/18 23:10 11/26/18 23:10 11/26/18 23:10 Intake and Output: 11/27/18 11/27/18 06:59 18:59 Intake Total 300 240 Output Total 400 500 Balance -100 -260 - Medications Medications: Current Medications Albuterol/Ipratropium (Duoneb 3 Mg/0.5 Mg (3 Ml) Ud) 3 ml INH RQ4 [facility] Last Admin: 11/27/18 04:00 Dose: Not Given Enoxaparin Sodium (Lovenox) 40 mg SC DAILY [facility] Last Admin: 11/26/18 10:10 Dose: 40 mg Escitalopram Oxalate (Lexapro) 20 mg PO DAILY [facility] Last Admin: 11/26/18 10:17 Dose: 20 mg Fluticasone/Vilanterol (Breo Ellipta 100-25 Mcg Inh) 1 puff INH RQD [facility] Last Admin: 11/26/18 09:00 Dose: Not Given Gabapentin (Neurontin) 100 mg PO TID [facility] Last Admin: 11/26/18 17:35 Dose: 100 mg Guaifenesin/Dextromethorphan (Robitussin Dm) 5 ml PO Q4H PRN PRN Reason: Cough Last Admin: 11/26/18 10:14 Dose: 5 ml Moxifloxacin HCl (Avelox Iv 400mg/250ml Ns) 400 mg in 250 mls @ 167 mls/hr IVPB Q24H [facility]; Protocol Last Admin: 11/26/18 10:09 Dose: 167 mls/hr Lisinopril (Zestril) 10 mg PO DAILY [facility] Last Admin: 11/26/18 10:11 Dose: Not Given Methylprednisolone (Solu-Medrol) 40 mg IVP Q12 [facility] Last Admin: 11/26/18 22:36 Dose: 40 mg Multivitamins (Hexavitamin) 1 tab PO DAILY [facility] Last Admin: 11/26/18 10:08 Dose: 1 tab Pantoprazole Sodium (Protonix Ec Tab) 40 mg PO DAILY [facility] Last Admin: 11/26/18 09:51 Dose: 40 mg Tamsulosin HCl (Flomax) 0.4 mg PO DAILY [facility] Last Admin: 11/26/18 10:08 Dose: 0.4 mg Thiamine HCl (Vitamin B1 Tab) 100 mg PO DAILY [facility] Last Admin: 11/26/18 10:08 Dose: 100 mg Zolpidem Tartrate (Ambien) 10 mg PO HS PRN PRN Reason: Insomnia - Labs Labs: 11/23/18 07:43 11/23/18 07:43 - Additional Findings Additional findings: - Constitutional Appears: No Acute Distress - Head Exam Head Exam: NORMAL INSPECTION - Eye Exam Eye Exam: EOMI, Normal appearance - ENT Exam ENT Exam: Mucous Membranes Moist - Respiratory Exam Respiratory Exam: Rhonchi, Wheezes (bilateral and throughout all lung correia). absent: Clear to Auscultation Bilateral, Respiratory Distress - Cardiovascular Exam Cardiovascular Exam: REGULAR RHYTHM, +S1, +S2 - GI/Abdominal Exam GI & Abdominal Exam: Soft, Normal Bowel Sounds. absent: Distended, Firm, Guarding, Tenderness - Extremities Exam Extremities Exam: absent: Calf Tenderness, Tenderness, Pedal Edema - Neurological Exam Neurological Exam: Alert, Awake, Oriented x3 - Psychiatric Exam Psychiatric exam: Normal Affect, Normal Mood - Skin Skin Exam: Dry, Intact, Normal Color, Warm Assessment and Plan - Assessment and Plan (Free Text) Plan: COPD Exacerbation Chest X-ray (11/22/18): No active pulmonary disease. COPD Management: - Duonebs 3ML INH RQ4H - Solu-medrol 40mg IV daily (decreased from Q12hr on 11/27/18) - Robitussin 100mg PO BID PRN - Breo Ellipta 100-25 Mcg 1 puff daily - Moxifloxacin 400mg IV daily (active since 11/23/18) HTN - Lisinopril 10mg PO daily Depression - Lexapro 20mg PO daily Chronic pain - Gabapentin 100mg PO Q4H [facility] - Flomax 0.4mg PO daily Insomnia - Ambien 10mg PO HS PRN Prophylactic Measures - GI: Protonix 40mg PO daily (on steroids) - DVT: Lovenox 40mg SC daily Disposition: Patient will likely be discharge to detention tomorrow. Case discussed with Dr. Lisa Esqueda, PGY2
[2018-11-27] MEDS: Fluticasone-Vilanterol 100/25mcg Diskus INH SCH (07:40)
[2018-11-27] MEDS: MethylPREDNISolone 40 mg Vial IVP SCH (09:11)
[2018-11-27] MEDS: Multiple Vitamins Tab PO SCH (09:12)
[2018-11-27] MEDS: Pantoprazole 40 mg EC Tab PO SCH (09:12)
[2018-11-27] MEDS: Enoxaparin 40 mg Syringe SC SCH (09:19)
[2018-11-27] MEDS: guaiFENesin DM 100 mg-10 mg/5 ml UD PO PRN (09:31)
[2018-11-27] MEDS: Moxifloxacin IV 400mg/250ml NS 400 MG/250 ML BAG IVPB SCH (10:41)
[2018-11-27 12:42] VITALS: RESP 20
[2018-11-28] MEDS: Albuterol-Ipratrop 3 mg / 0.5 (3 ml) UD INH SCH ×4 (04:00→11:30)
--- NOTE | 2018-11-28 07:11 | CP.PCM.PN ---
Subjective - Date & Time of Evaluation Date of Evaluation: 11/28/18 Time of Evaluation: 07:08 - Subjective Subjective: Medicine Note for Dr. Gonzalez Patient was seen and examined at bedside. Patient reports he feels "okay". He wants to be discharge early. ROS unremarkable. Objective - Vital Signs/Intake and Output Vital Signs (last 24 hours): Temp Pulse Resp BP Pulse Ox 98.3 F 87 20 113/77 99 11/28/18 00:17 11/28/18 00:17 11/28/18 00:17 11/28/18 00:17 11/28/18 00:17 Intake and Output: 11/28/18 11/28/18 06:59 18:59 Intake Total 450 Output Total 400 Balance 50 - Medications Medications: Current Medications Albuterol/Ipratropium (Duoneb 3 Mg/0.5 Mg (3 Ml) Ud) 3 ml INH RQ4 [facility] Last Admin: 11/28/18 04:00 Dose: Not Given Enoxaparin Sodium (Lovenox) 40 mg SC DAILY [facility] Last Admin: 11/27/18 09:19 Dose: 40 mg Escitalopram Oxalate (Lexapro) 20 mg PO DAILY [facility] Last Admin: 11/27/18 09:12 Dose: 20 mg Fluticasone/Vilanterol (Breo Ellipta 100-25 Mcg Inh) 1 puff INH RQD [facility] Last Admin: 11/27/18 07:40 Dose: 1 puff Gabapentin (Neurontin) 100 mg PO TID [facility] Last Admin: 11/27/18 18:01 Dose: 100 mg Guaifenesin/Dextromethorphan (Robitussin Dm) 5 ml PO Q4H PRN PRN Reason: Cough Last Admin: 11/27/18 09:31 Dose: 5 ml Moxifloxacin HCl (Avelox Iv 400mg/250ml Ns) 400 mg in 250 mls @ 167 mls/hr IVPB Q24H [facility]; Protocol Last Admin: 11/27/18 10:41 Dose: 167 mls/hr Lisinopril (Zestril) 10 mg PO DAILY [facility] Last Admin: 11/27/18 09:12 Dose: 10 mg Methylprednisolone (Solu-Medrol) 40 mg IVP DAILY [facility] Multivitamins (Hexavitamin) 1 tab PO DAILY [facility] Last Admin: 11/27/18 09:12 Dose: 1 tab Pantoprazole Sodium (Protonix Ec Tab) 40 mg PO DAILY [facility] Last Admin: 11/27/18 09:12 Dose: 40 mg Tamsulosin HCl (Flomax) 0.4 mg PO DAILY [facility] Last Admin: 11/27/18 09:12 Dose: 0.4 mg Thiamine HCl (Vitamin B1 Tab) 100 mg PO DAILY [facility] Last Admin: 11/27/18 09:11 Dose: 100 mg Zolpidem Tartrate (Ambien) 10 mg PO HS PRN PRN Reason: Insomnia - Labs Labs: 11/23/18 07:43 11/23/18 07:43 - Additional Findings Additional findings: - Constitutional Appears: No Acute Distress, Chronically Ill - Head Exam Head Exam: NORMAL INSPECTION, NORMOCEPHALIC - Eye Exam Eye Exam: EOMI, Normal appearance, PERRL Pupil Exam: NORMAL ACCOMODATION - ENT Exam ENT Exam: Normal Exam - Respiratory Exam Respiratory Exam: Decreased Breath Sounds, faint wheezing noted at the bases - Cardiovascular Exam Cardiovascular Exam: +S1, +S2 - GI/Abdominal Exam GI & Abdominal Exam: Soft, Normal Bowel Sounds. absent: Distended, Tenderness - Extremities Exam Extremities Exam: absent: Pedal Edema, Tenderness - Neurological Exam Neurological Exam: Alert, Awake, Oriented x3 - Psychiatric Exam Psychiatric exam: Normal Affect, Normal Mood - Skin Skin Exam: Dry, Intact, Normal Color, Warm Assessment and Plan - Assessment and Plan (Free Text) Plan: COPD Exacerbation Imaging: Chest X-ray (11/22/18): No active pulmonary disease. COPD Management: - Duonebs 3ML INH RQ4H - Solu-medrol 40mg IV Q12H - Robitussin 100mg PO BID PRN - Added Breo Ellipta 100-25 Mcg 1 puff daily - Moxifloxacin 400mg IV daily (active since 11/23/18) HTN - Lisinopril 10mg PO daily Depression - Lexapro 20mg PO daily Chronic pain - Gabapentin 100mg PO Q4H [facility] - Flomax 0.4mg PO daily Insomnia - Ambien 10mg PO HS PRN Prophylactic Measures - GI: Protonix 40mg PO daily (on steroids) - DVT: Lovenox 40mg SC daily Disposition: Patient is medically stable for discharge to a halfway. Patient is to continue medications as instructed, follow up with Dr. Gonzalez within 1-2 weeks. Patient strongly encouraged patient to consider jail. Case discussed with Chandni Allen DO PGY2
[2018-11-28] MEDS: Fluticasone-Vilanterol 100/25mcg Diskus INH SCH (07:40)
[2018-11-28 08:35] VITALS: BP 129/83; PULSE 102; TEMP 98.6; O2SAT 96
[2018-11-28] MEDS: Enoxaparin 40 mg Syringe SC SCH (09:16)
[2018-11-28] MEDS: guaiFENesin DM 100 mg-10 mg/5 ml UD PO PRN (09:16)
[2018-11-28] MEDS: Multiple Vitamins Tab PO SCH (09:16)
[2018-11-28] MEDS: Pantoprazole 40 mg EC Tab PO SCH (09:16)
[2018-11-28] MEDS: Moxifloxacin IV 400mg/250ml NS 400 MG/250 ML BAG IVPB SCH (09:48)
[2018-11-28] MEDS ORDERED: MethylPREDNISolone 40 mg Vial IVP SCH (10:00)
== END 2018-11-28 12:28 | disposition home or self-care (01) | DRG 88 ==
LOC: C.ER 13:37 → C.9E 17:27 → C.3T 17:42 → C.9E 17:48 → C.3T 18:34 → OBSVTOIN 11-26 13:09 → C.3T 11-27 17:20
PROVIDERS: ADMIT Internal Medicine Pulmonary Disease; ATTEND Internal Medicine Pulmonary Disease
DX: J44.1 Chronic obstructive pulmonary disease with (acute) exacerbation (principal); I10 Essential (primary) hypertension; N40.0 Benign prostatic hyperplasia without lower urinary tract symptoms; F10.10 Alcohol abuse, uncomplicated; F12.90 Cannabis use, unspecified, uncomplicated; F17.210 Nicotine dependence, cigarettes, uncomplicated; F32.9 Major depressive disorder, single episode, unspecified; Z87.11 Personal history of peptic ulcer disease; Z59.0 Homelessness

== ENCOUNTER 2018-11-28 20:11 | Emergency (ER) | payer MEDICAID ==
[2018-11-28 20:11] VITALS: BMI 18.8
[2018-11-28] MEDS ORDERED: Sodium Chloride 0.9% 1,000 ML IV ONE (20:54)
--- NOTE | 2018-11-28 20:54 | C.PDOC ---
History Of Present Illness 58 year old male is brought to the ED by EMS for evaluation. Patient was found to be hypotensive on the field and was given IV fluids. Patient admits to drinking alcohol today which he does on a regular basis. Patient denies fever, c hills, CP, SOB, headache, dizziness, weakness, numbness. Time Seen by Provider: 11/28/18 20:53 Chief Complaint (Nursing): Weakness/Neurological Deficit History Per: Patient, EMS History/Exam Limitations: intoxication Onset/Duration Of Symptoms: Hrs Current Symptoms Are (Timing): Still Present Activity At Onset Of Symptoms: Sitting Associated Symptoms Preceding Syncopal Episode: No Predromal Symptoms (Sudden Onset) Seizure Or Post-ictal Symptoms: None Possible Causative Factor(s): Recent Alcohol Fall Associated With With Symptoms: No Severity: None Recent travel outside of the [place]: No Additional History Per: Patient, EMS Past Medical History Reviewed: Historical Data, Nursing Documentation, Vital Signs Vital Signs: Last Vital Signs Temp 97.2 F L 11/28/18 20:25 Pulse 79 11/28/18 20:25 Resp 16 11/28/18 20:25 BP 67/41 L 11/28/18 20:25 Pulse Ox 93 L 11/28/18 20:25 - Medical History PMH: Anxiety, Asthma, Bronchitis, COPD, Depression, Gastrointestinal Ulcer, HTN, Pneumonia Denies: Diabetes, Hepatitis, HIV, Chronic Kidney Disease, Seizures, Sexually Transmitted Disease Surgical History: Appendectomy, Tonsillectomy - [facility] Procedures CONTR ABD ARTERIOGRM NEC (05/20/07) DETOXIFICATION SERVICES FOR SUBSTANCE ABUSE TREATMENT (09/12/18) ESOPHAGOGASTRODUODENOSCOPY [EGD] W/CLOSED BIOPSY (05/20/07) EXCISION OF LOWER ESOPHAGUS, ENDO, DIAGN (05/21/17) EXTIRPATION OF MATTER FROM LOWER ESOPHAGUS, ENDO (05/21/17) GROUP AUDIT CONTROL CLERK FOR SUBSTANCE ABUSE TREATMENT, PSYCHOEDUCATION (10/27/18) GROUP AUDIT CONTROL CLERK FOR SUBSTANCE ABUSE, COGNITIVE BEHAVIORAL (10/27/18) GROUP PSYCHOTHERAPY (10/27/18) INDIV AUDIT CONTROL CLERK FOR SUBSTANCE ABUSE TREATMENT, PSYCHOEDUCATION (01/14/17) INDIV AUDIT CONTROL CLERK FOR SUBSTANCE ABUSE, COGNITIVE BEHAVIORAL (01/14/17) INDIV PSYCHOTHERAPY FOR SUBSTANCE ABUSE TREATMENT, SUPPORT (10/27/18) INDIV PSYCHOTHERAPY FOR SUBSTANCE ABUSE, COGNITIV BEHAVIORAL (10/27/18) INDIV PSYCHOTHERAPY FOR SUBSTANCE ABUSE, PSYCHOEDUCATION (10/27/18) INDIVIDUAL PSYCHOTHERAPY, COGNITIVE-BEHAVIORAL (10/27/18) INDIVIDUAL PSYCHOTHERAPY, SUPPORTIVE (10/27/18) INJECT/INFUSE NEC (03/20/12) MEDICATION MANAGEMENT (03/12/17) MEDS MGMT FOR SUBSTANCE ABUSE TREATMENT, OTH REPL MED (03/12/17) Family History: States: Unknown Family Hx - Social History Hx Tobacco Use: Yes Hx Alcohol Use: Yes Hx Substance Use: No - Immunization History Hx Tetanus Toxoid Vaccination: Yes Hx Influenza Vaccination: Yes Hx Pneumococcal Vaccination: Yes Review Of Systems Constitutional: Negative for: Fever, Chills Cardiovascular: Negative for: Chest Pain Respiratory: Negative for: Shortness of Breath Gastrointestinal: Negative for: Nausea, Vomiting, Abdominal Pain Skin: Negative for: Rash Neurological: Negative for: Weakness, Numbness, Headache, Dizziness Physical Exam - Physical Exam Appears: Non-toxic, No Acute Distress Skin: Warm, Dry Head: Normacephalic Eye(s): bilateral: Normal Inspection Oral Mucosa: Moist Neck: Supple Chest: Symmetrical Cardiovascular: Rhythm Regular Respiratory: No Rales, Rhonchi, Wheezing (expiratory) Gastrointestinal/Abdominal: Soft, No Tenderness, No Guarding, No Rebound Extremity: Bilateral: Atraumatic, Normal Color And Temperature, Normal ROM Neurological/Psych: Oriented x3, Normal Speech, Normal Cognition Gait: Steady ED Course And Treatment - Laboratory Results Result Diagrams: 11/28/18 21:24 11/28/18 21:24 O2 Sat by Pulse Oximetry: 93 Pulse Ox Interpretation: Normal Progress Note: Plan: - Labs. - Iv fluids. - UA Reevaluation Time: 06:01 Reassessment Condition: Improved Disposition Counseled Patient/Family Regarding: Studies Performed, Diagnosis, Need For Followup - Disposition Referrals: [facility] [Outside] Disposition: HOME/ ROUTINE Disposition Time: 20:53 Condition: FAIR Instructions: Alcohol Abuse and Alcoholism (DC), Low Blood Pressure (DC) Forms: [facility] (Kazakh) - Clinical Impression Clinical Impression: Alcohol intoxication, Hypotension - Scribe Statement The provider has reviewed the documentation as recorded by the Scribe Jose J Ceballos All medical record entries made by the Scribe were at my direction and personally dictated by me. I have reviewed the chart and agree that the record accurately reflects my personal performance of the history, physical exam, medical decision making, and the department course for this patient. I have also personally directed, reviewed, and agree with the discharge instructions and disposition.
[2018-11-28 21:29] LABS: BASO % 0.3 % (0.0-2.0); EOS % 0.4 % (0.0-4.0); LYMPH # 0.8 K/uL (1.0-4.3); LYMPH % 7.7 % (20.0-40.0); MEAN CORPUSCULAR HEMOGLOBIN 26.4 pg (27.0-31.0); MEAN CORPUSCULAR HGB CONC 31.4 g/dL (33.0-37.0); MEAN PLATELET VOLUME 7.7 fL (7.2-11.7); MONO # 0.6 K/uL (0.0-0.8); MONO % 5.5 % (0.0-10.0); NEUT # 8.7 K/uL (1.8-7.0); NEUT % 86.1 % (50.0-75.0); PLATELET COUNT 312 K/uL (130-400); RBC 4.92 Mil/uL (4.40-5.90); RED CELL DISTRIBUTION WIDTH 21.7 % (11.5-14.5); WHITE BLOOD COUNT 10.2 K/uL (4.8-10.8)
[2018-11-28 21:52] LABS: BANDS 1 % (0-2); LYMPHOCYTE 9 % (20-40); MONOCYTE 7 % (0-10); NEUTROPHIL 83 % (50-75); PLATELET ESTIMATE NORMAL (NORMAL); TOTAL CELLS COUNTED 100
[2018-11-28 21:53] LABS: PROTHROMBIN TIME 10.9 SECONDS (9.7-12.2)
[2018-11-28 21:54] LABS: TROPONIN I 0.032 ng/mL (0.00-0.120)
[2018-11-28 21:55] LABS: ALB/GLOB RATIO 1.5 (1.0-2.1); ALBUMIN 3.5 g/dL (3.5-5.0); CALCIUM 8.4 mg/dl (8.6-10.4)
[2018-11-29 03:09] LABS: GRANULAR CAST 12 /lpf (0-1); SQUAMOUS EPITHIAL 1 /hpf (0-5); URINE BILIRUBIN NEGATIVE (NEGATIVE); URINE BLOOD 2+ (NEGATIVE); URINE CLARITY Hazy (Clear); URINE COLOR Yellow (YELLOW); URINE GLUCOSE (UA) NORMAL (Normal); URINE LEUKOCYTE ESTERASE NEG Leu/uL (Negative); URINE PROTEIN 2+ mg/dL (NEGATIVE); URINE UROBILINOGEN NORMAL mg/dL (0.2-1.0)
[2018-11-29 03:20] LABS: BARBITURATES, UR NEGATIVE (NEGATIVE); BENZODIAZEPINES, UR NEGATIVE (NEGATIVE); OPIATES, UR NEGATIVE (NEGATIVE); PHENCYCLIDINE, UR NEGATIVE (NEGATIVE)
[2018-11-29 06:28] VITALS: BP 148/88; PULSE 96; RESP 16; TEMP 98.1; O2SAT 95
== END 2018-11-29 06:47 | disposition home or self-care (01) ==
LOC: C.ER 20:11
DX: F10.129 Alcohol abuse with intoxication, unspecified (principal); I95.9 Hypotension, unspecified; I10 Essential (primary) hypertension; J44.9 Chronic obstructive pulmonary disease, unspecified; Z72.0 Tobacco use
CPT/HCPCS: 80053; 80320; 80324; 80345; 80346; 80349; 80353; 80358; 80361; 81001; 83690; 83735; 83992; 84484; 85025; 85610; 85730; 96360; 99285; J7030

== ENCOUNTER 2018-11-29 12:30 | Emergency (ER) | payer MEDICAID ==
[2018-11-29 12:31] VITALS: BMI 18.8
--- NOTE | 2018-11-29 12:56 | C.PDOC ---
History Of Present Illness 58 y/o male BIBA after being found intoxicated in public. Patient states hes had too much alcohol to drink and has an unsteady gait in ER. Otherwise he denies any physical complaints. Time Seen by Provider: 11/29/18 12:33 Chief Complaint (Nursing): Substance Abuse History Per: EMS History/Exam Limitations: no limitations Onset/Duration Of Symptoms: Days Current Symptoms Are (Timing): Still Present Past Medical History Reviewed: Historical Data, Nursing Documentation, Vital Signs Vital Signs: Last Vital Signs Temp 98.1 F 11/29/18 12:47 Pulse 71 11/29/18 12:47 Resp 18 11/29/18 12:47 BP 122/71 11/29/18 12:47 Pulse Ox 100 11/29/18 12:47 - Medical History PMH: Anxiety, Asthma, Bronchitis, COPD, Depression, Gastrointestinal Ulcer, HTN, Pneumonia Denies: Diabetes, Hepatitis, HIV, Chronic Kidney Disease, Seizures, Sexually Transmitted Disease Surgical History: Appendectomy, Tonsillectomy - [facility] Procedures CONTR ABD ARTERIOGRM NEC (05/20/07) DETOXIFICATION SERVICES FOR SUBSTANCE ABUSE TREATMENT (09/12/18) ESOPHAGOGASTRODUODENOSCOPY [EGD] W/CLOSED BIOPSY (05/20/07) EXCISION OF LOWER ESOPHAGUS, ENDO, DIAGN (05/21/17) EXTIRPATION OF MATTER FROM LOWER ESOPHAGUS, ENDO (05/21/17) GROUP QUILLER OPERATOR FOR SUBSTANCE ABUSE TREATMENT, PSYCHOEDUCATION (10/27/18) GROUP QUILLER OPERATOR FOR SUBSTANCE ABUSE, COGNITIVE BEHAVIORAL (10/27/18) GROUP PSYCHOTHERAPY (10/27/18) INDIV QUILLER OPERATOR FOR SUBSTANCE ABUSE TREATMENT, PSYCHOEDUCATION (01/14/17) INDIV QUILLER OPERATOR FOR SUBSTANCE ABUSE, COGNITIVE BEHAVIORAL (01/14/17) INDIV PSYCHOTHERAPY FOR SUBSTANCE ABUSE TREATMENT, SUPPORT (10/27/18) INDIV PSYCHOTHERAPY FOR SUBSTANCE ABUSE, COGNITIV BEHAVIORAL (10/27/18) INDIV PSYCHOTHERAPY FOR SUBSTANCE ABUSE, PSYCHOEDUCATION (10/27/18) INDIVIDUAL PSYCHOTHERAPY, COGNITIVE-BEHAVIORAL (10/27/18) INDIVIDUAL PSYCHOTHERAPY, SUPPORTIVE (10/27/18) INJECT/INFUSE NEC (03/20/12) MEDICATION MANAGEMENT (03/12/17) MEDS MGMT FOR SUBSTANCE ABUSE TREATMENT, OTH REPL MED (03/12/17) Family History: States: No Known Family Hx - Social History Hx Tobacco Use: Yes Hx Alcohol Use: Yes Hx Substance Use: No - Immunization History Hx Tetanus Toxoid Vaccination: Yes Hx Influenza Vaccination: Yes Hx Pneumococcal Vaccination: Yes Review Of Systems Except As Marked, All Systems Reviewed And Found Negative. Constitutional: Negative for: Fever Cardiovascular: Negative for: Chest Pain Respiratory: Negative for: Shortness of Breath Gastrointestinal: Negative for: Vomiting Skin: Negative for: Rash Psych: Positive for: Other (Alcohol intoxication) Physical Exam - Physical Exam Appears: Non-toxic, No Acute Distress, Other (Alcohol on breath) Skin: Warm, Dry Head: Atraumatic, Normacephalic Eye(s): bilateral: Normal Inspection, PERRL, EOMI Oral Mucosa: Moist Neck: Supple Chest: Symmetrical Cardiovascular: Rhythm Regular, No Murmur Respiratory: Normal Breath Sounds, No Rales, No Rhonchi, No Wheezing Gastrointestinal/Abdominal: Soft, No Tenderness Extremity: Bilateral: Atraumatic, Normal Color And Temperature, Normal ROM Neurological/Psych: Oriented x3, Normal Speech Gait: Unsteady ED Course And Treatment O2 Sat by Pulse Oximetry: 100 (RA) Pulse Ox Interpretation: Normal Medical Decision Making Medical Decision Making: sleepign in nad in er. lung cta Plan: --Labs pt observed 4r hours. lungs cta. steady gait. stable for dc. no medical complaint. Disposition - Disposition Disposition: HOME/ ROUTINE Disposition Time: 17:00 Condition: STABLE Additional Instructions: return to er with worsening symptoms or concerns. Instructions: Alcohol Abuse and Alcoholism (DC) Forms: [facility] (British) - Clinical Impression Clinical Impression: Alcohol abuse - Scribe Statement The provider has reviewed the documentation as recorded by the Scribkeri Pelayo All medical record entries made by the Scribe were at my direction and personally dictated by me. I have reviewed the chart and agree that the record accurately reflects my personal performance of the history, physical exam, medical decision making, and the department course for this patient. I have also personally directed, reviewed, and agree with the discharge instructions and disposition.
[2018-11-29 17:12] VITALS: BP 136/82; PULSE 98; RESP 20; TEMP 98.3
[2018-11-29 18:48] VITALS: O2SAT 100
== END 2018-11-29 17:19 | disposition home or self-care (01) ==
LOC: C.ER 12:30
DX: F10.10 Alcohol abuse, uncomplicated (principal); Y90.9 Presence of alcohol in blood, level not specified

== ENCOUNTER 2018-12-02 15:56 | Inpatient (IN) | payer MEDICAID ==
[2018-12-02 15:56] VITALS: BMI 18.8
[2018-12-02] MEDS ORDERED: Albuterol 0.083% Inhal Sol (2.5 mg/3 mL) UD IH STA ×3 (16:16→18:06)
[2018-12-02] MEDS ORDERED: Albuterol-Ipratrop 3 mg / 0.5 (3 ml) UD INH STA (16:16)
[2018-12-02 17:10] LABS: BASO # 0.1 K/uL (0.0-0.2); BASO % 1.1 % (0.0-2.0); EOS % 0.2 % (0.0-4.0); HEMOGLOBIN 11.8 g/dL (12.0-18.0); LYMPH % 17.7 % (20.0-40.0); MEAN CELL VOLUME 80.4 fL (80.0-94.0); MEAN CORPUSCULAR HGB CONC 32.4 g/dL (33.0-37.0); MEAN PLATELET VOLUME 7.3 fL (7.2-11.7); MONO # 0.7 K/uL (0.0-0.8); MONO % 6.4 % (0.0-10.0); NEUT # 8.5 K/uL (1.8-7.0); NEUT % 74.6 % (50.0-75.0); NRBC % 0.1 % (0.0-2.0); RBC 4.54 Mil/uL (4.40-5.90); RED CELL DISTRIBUTION WIDTH 21.7 % (11.5-14.5); WHITE BLOOD COUNT 11.4 K/uL (4.8-10.8)
[2018-12-02] MEDS ORDERED: Albuterol-Ipratrop 3 mg / 0.5 (3 ml) UD ONE ×2 (17:10→18:39)
[2018-12-02] MEDS ORDERED: Albuterol 0.083% Inhal Sol (2.5 mg/3 mL) UD ONE ×2 (17:10→18:42)
[2018-12-02 17:19] LABS: PROTHROMBIN TIME 11.4 SECONDS (9.7-12.2)
[2018-12-02 17:38] LABS: B-TYPE NATRIURETIC PEPTIDE 168 pg/mL (0-900); CK-MB 4.33 ng/mL (0.0-3.38)
[2018-12-02 17:41] LABS: ALB/GLOB RATIO 1.5 (1.0-2.1); ALBUMIN 3.7 g/dL (3.5-5.0); ALT/SGPT 301 U/L (21-72); AST/SGOT 127 U/L (17-59); BLOOD UREA NITROGEN 10 mg/dL (9-20); CALCIUM 8.3 mg/dl (8.6-10.4); GFR NON-AFRICAN AMERICAN > 60
--- NOTE | 2018-12-02 18:11 | C.PDOC ---
History Of Present Illness Patient presents to ED c/o SOB and wheezing x approx 5 days, and nonproductive cough for 3-4 days. He denies chest pain, palpitations, fever, abdominal pain, vomiting/diarrhea. PMHx: COPD, HTN, PNA, PUD, bronchitis, anxiety/depression Time Seen by Provider: 12/02/18 16:11 Chief Complaint (Nursing): Shortness Of Breath History Per: Patient History/Exam Limitations: no limitations Onset/Duration Of Symptoms: Days (4-5) Current Symptoms Are (Timing): Still Present Current Respiratory Medications: See Home Med List Severity: Moderate Past Medical History Reviewed: Historical Data, Nursing Documentation, Vital Signs Vital Signs: Last Vital Signs Temp 98.7 F 12/02/18 16:57 Pulse 107 H 12/02/18 16:07 Resp 24 12/02/18 16:07 BP 149/77 12/02/18 16:07 Pulse Ox 94 L 12/02/18 16:07 - Medical History PMH: Anxiety, Asthma, Bronchitis, COPD, Depression, Gastrointestinal Ulcer, HTN, Pneumonia Surgical History: Appendectomy, Tonsillectomy - [facility] Procedures CONTR ABD ARTERIOGRM NEC (05/20/07) DETOXIFICATION SERVICES FOR SUBSTANCE ABUSE TREATMENT (09/12/18) ESOPHAGOGASTRODUODENOSCOPY [EGD] W/CLOSED BIOPSY (05/20/07) EXCISION OF LOWER ESOPHAGUS, ENDO, DIAGN (05/21/17) EXTIRPATION OF MATTER FROM LOWER ESOPHAGUS, ENDO (05/21/17) GROUP RESPITE PROVIDER FOR SUBSTANCE ABUSE TREATMENT, PSYCHOEDUCATION (10/27/18) GROUP RESPITE PROVIDER FOR SUBSTANCE ABUSE, COGNITIVE BEHAVIORAL (10/27/18) GROUP PSYCHOTHERAPY (10/27/18) INDIV RESPITE PROVIDER FOR SUBSTANCE ABUSE TREATMENT, PSYCHOEDUCATION (01/14/17) INDIV RESPITE PROVIDER FOR SUBSTANCE ABUSE, COGNITIVE BEHAVIORAL (01/14/17) INDIV PSYCHOTHERAPY FOR SUBSTANCE ABUSE TREATMENT, SUPPORT (10/27/18) INDIV PSYCHOTHERAPY FOR SUBSTANCE ABUSE, COGNITIV BEHAVIORAL (10/27/18) INDIV PSYCHOTHERAPY FOR SUBSTANCE ABUSE, PSYCHOEDUCATION (10/27/18) INDIVIDUAL PSYCHOTHERAPY, COGNITIVE-BEHAVIORAL (10/27/18) INDIVIDUAL PSYCHOTHERAPY, SUPPORTIVE (10/27/18) INJECT/INFUSE NEC (03/20/12) MEDICATION MANAGEMENT (03/12/17) MEDS MGMT FOR SUBSTANCE ABUSE TREATMENT, OTH REPL MED (03/12/17) Family History: States: No Known Family Hx - Social History Hx Tobacco Use: Yes Hx Alcohol Use: Yes Hx Substance Use: No - Immunization History Hx Tetanus Toxoid Vaccination: Yes Hx Influenza Vaccination: Yes Hx Pneumococcal Vaccination: Yes Review Of Systems Constitutional: Negative for: Fever, Chills Cardiovascular: Negative for: Chest Pain, Palpitations Respiratory: Positive for: Cough, Shortness of Breath, Wheezing Gastrointestinal: Negative for: Nausea, Vomiting, Abdominal Pain, Diarrhea Skin: Negative for: Rash Neurological: Negative for: Headache, Dizziness Physical Exam - Physical Exam Appears: Well, Non-toxic, In Acute Distress (in mild respiratory distress, speaking in full sentences) Skin: Warm, Dry Head: Normacephalic, Other (contusion/ecchymosis (old appearing) right forehead) Eye(s): bilateral: Normal Inspection, PERRL, EOMI Oral Mucosa: Moist Chest: Symmetrical Cardiovascular: Rhythm Regular (tachycardic ) Respiratory: No Accessory Muscle Use, Rales (mild at bases), No Rhonchi, Wheezing (diffuse exp wheezing B/L ) Gastrointestinal/Abdominal: Normal Exam, Bowel Sounds, Soft, No Tenderness Extremity: Pedal Edema (+2 pitting edema B/L LEs), No Calf Tenderness Pulses: Left Dorsalis Pedis: Normal, Right Dorsalis Pedis: Normal Neurological/Psych: Oriented x3 ED Course And Treatment - Laboratory Results Result Diagrams: 12/02/18 17:05 12/02/18 17:05 Lab Results: PT 11.4 SECONDS (9.7-12.2) 12/02/18 17:05 INR 1.0 12/02/18 17:05 APTT 32 SECONDS (21-34) 12/02/18 17:05 Troponin I 0.0330 ng/mL (0.00-0.120) 12/02/18 17:05 NT-Pro-B Natriuret Pep 168 pg/mL (0-900) 12/02/18 17:05 Total Bilirubin 0.4 mg/dL (0.2-1.3) 12/02/18 17:05 AST 127 U/L (17-59) H 12/02/18 17:05 ALT 301 U/L (21-72) H D 12/02/18 17:05 Alkaline Phosphatase 86 U/L (38-126) 12/02/18 17:05 Total Protein 6.3 g/dL (6.3-8.3) 12/02/18 17:05 Albumin 3.7 g/dL (3.5-5.0) 12/02/18 17:05 Globulin 2.6 gm/dL (2.2-3.9) 12/02/18 17:05 Albumin/Globulin Ratio 1.5 (1.0-2.1) 12/02/18 17:05 ECG: Interpreted By Me, Viewed By Me (sinus tachycardia 106 bpm, normal axis, no acute ST/T wave changes) ECG Interpretation: Abnormal O2 Sat by Pulse Oximetry: 94 (RA) Pulse Ox Interpretation: Normal - Radiology CXR: Interpreted by Me, Viewed By Me (hyperinflation, no infiltrates/effusions) - CT Scan/US ct head Other Rad Studies (CT/US): Read By Radiologist, Radiology Report Reviewed CT/US Interpretation: EXAM: CT Head without Intravenous Contrast. CLINICAL HISTORY: Fall, head injury. TECHNIQUE: Axial computed tomography images of the head/brain without intravenous contrast. 0.00 mGy-cm. COMPARISON: None provided. FINDINGS: BRAIN. Chronic periventricular and subcortical microvascular disease is seen. Bilateral basal ganglia lacunar infarcts. VENTRICLES: There is generalized parenchymal atrophy noted as demonstrated by symmetrical dilatation of ventricles and sulci. ORBITS: The orbits are unremarkable. SINUSES AND MASTOIDS: The paranasal sinuses and mastoid air cells are clear. BONES: No fracture. SOFT TISSUES: Unremarkable. MISCELLANEOUS: No acute intracranial pathology. IMPRESSION: 1. There is generalized parenchymal atrophy noted as demonstrated by symmetrical dilatation of ventricles and sulci. 2. Chronic periventricular and subcortical microvascular disease is seen. 3. Bilateral basal ganglia lacunar infarcts. 4. No acute intracranial pathology. . Electronically signed on Dec 02, 2018 8:24:46 PM EST by: Altaf Andino M.D., NICOLASA Certified By ABR & CBCCT. Fellowship Trained MRI and CT Specialist. Progress Note: Blood work, CXR, EKG ordered and reviewed. Patient given IV solumedrol, albuterol treatments. Reevaluation Time: 18:00 Reassessment Condition: Improved (Patient reassessed, continues to have diffuse exp wheezing B/L - will need obs telemetry for COPD exacerbation.) - Physician Consult Information Physician Contacted: Dino Gonzalez Outcome Of Conversation: Discussed patient with PMD, he agrees with admission for COPD exacerbation, dyspnea. Critical Care Time - Critical Care Note Total Time (in mins): 35 Documented critical care: time excludes all time spent performing seperately billable procedures. Disposition - Disposition Disposition: HOSPITALIZED Disposition Time: 18:07 Condition: STABLE - Clinical Impression Clinical Impression: COPD exacerbation, Dyspnea Decision To Admit - Pt Status Changed To: Hospital Disposition Of: Observation - . Bed Request Type: Telemetry Admitting Physician: Dino Gonzalez Patient Diagnosis: COPD exacerbation, Dyspnea
[2018-12-02] MEDS ORDERED: Enoxaparin 40 mg Syringe SC ONE (20:39)
[2018-12-03] MEDS ORDERED: Albuterol-Ipratrop 3 mg / 0.5 (3 ml) UD ONE ×2 (01:27→04:13)
[2018-12-03] MEDS: Albuterol-Ipratrop 3 mg / 0.5 (3 ml) UD INH SCH ×5 (01:36→22:05)
--- NOTE | 2018-12-03 07:29 | CP.PCM.PN ---
"Subjective - Date & Time of Evaluation Date of Evaluation: 12/03/18 Time of Evaluation: 10:00 - Subjective Subjective: Progress note for Dr. Gonzalez Patient is a 58 year old homeless male with a past medical history of COPD, HTN, depression, polysubstance abuse (tobacco, alcohol, marijuana), BPH, who presented with complains of shortness of breath and non-productive cough for about 3 days. Patient tried to relieve his symptoms with albuterol IH unsucc essfully. Patient has multiple admission for this same issue. He admits to drinking several shots of vodka, and several cans of beer two days ago. ROS POSITIVES: SOB, non-productive cough, chills NEGATIVES: Fever, chest pain, abdominal pain, n/v/d, constipation, urinary symptoms. PMHx: COPD, HTN, depression, polysubstance abuse (tobacco, alcohol, marijuana), BPH, chronic pain/neuropathy PSHx: 3 surgeries related to peptic ulcer disease/ perforated ulcer FamHx: unknown, adopted SocialHx: Current smoker (/4ppd; previously smoked 1ppd since he was 10 year old); smokes marijuana once per month, otherwise, denies other ellicit drug use; drink beer and vodka daily Allergies: NKDA 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 Objective - Vital Signs/Intake and Output Vital Signs (last 24 hours): Temp Pulse Resp BP Pulse Ox 98.2 F 99 H 20 158/78 H 100 12/03/18 04:19 12/03/18 04:19 12/03/18 04:19 12/03/18 04:19 12/03/18 04:19 - Medications Medications: Current Medications Albuterol/Ipratropium (Duoneb 3 Mg/0.5 Mg (3 Ml) Ud) 3 ml INH RQ4 FERNANDA Last Admin: 12/03/18 04:00 Dose: 3 ml Enoxaparin Sodium (Lovenox) 40 mg SC DAILY FERNANDA Pantoprazole Sodium (Protonix Inj) 40 mg IVP DAILY FERNANDA Tramadol HCl (Ultram) 25 mg PO Q6 PRN PRN Reason: Pain, moderate (4-7) Zolpidem Tartrate (Ambien) 5 mg PO HS PRN PRN Reason: Insomnia - Labs Labs: 12/02/18 17:05 12/02/18 17:05 PT 11.4 SECONDS (9.7-12.2) 12/02/18 17:05 INR 1.0 12/02/18 17:05 APTT 32 SECONDS (21-34) 12/02/18 17:05 - Constitutional Appears: Non-toxic, No Acute Distress - Head Exam Head Exam: ATRAUMATIC, NORMAL INSPECTION, NORMOCEPHALIC - Eye Exam Eye Exam: EOMI, Normal appearance - ENT Exam ENT Exam: Mucous Membranes Dry - Neck Exam Neck Exam: absent: Lymphadenopathy - Respiratory Exam Respiratory Exam: Wheezes (Diffuse). absent: Clear to Ausculation Bilateral, Rales, Rhonchi, Stridor - Cardiovascular Exam Cardiovascular Exam: Tachycardia, REGULAR RHYTHM, +S1, +S2. absent: JVD, RRR - GI/Abdominal Exam GI & Abdominal Exam: Soft, Normal Bowel Sounds. absent: Tenderness - Extremities Exam Extremities Exam: Normal Capillary Refill, Pedal Edema (+1 B/L ). absent: Tenderness - Neurological Exam Neurological Exam: Alert, Awake, Oriented x3 - Psychiatric Exam Psychiatric exam: absent: Normal Affect (Restricted Affect) - Skin Skin Exam: Dry, Intact, Normal Color, Warm Assessment and Plan - Assessment and Plan (Free Text) Assessment: 58 year old homeless male with a past medical history of COPD, HTN, depression, polysubstance abuse (tobacco, alcohol, marijuana), BPH admitted for evaluation and treatment of COPD Exacerbation. Plan: COPD Exacerbation CXR(Admission): Management: - Duonebs 3ML INH RQ4H - Prednisone 40mg for 5 days - Robitussin 100mg PO BID PRN - Breo Ellipta 100-25 Mcg 1 puff daily EtoH Abuse/Withdrawal Negative UDS | Negative Serum EtoH lvl Management: -Ativan 2 FERNANDA/1 PRN HTN - Lisinopril 10mg PO daily Depression - Lexapro 20mg PO daily Chronic pain - Gabapentin 100mg PO Q4H BPH - Flomax 0.4mg PO daily Insomnia - Ambien 10mg PO HS PRN Prophylactic Measures - GI: Protonix 40mg PO daily (on steroids) - DVT: Lovenox 40mg SC daily Dispo: Patient to be trasferred to Psych for Major Depressive Disorder under the care of Dr. Yan Calhoun He will continue his home medications and finish 5 days of prednisone 40mg. Patient seen with Dr. Lisa Mota, PGY-2"
--- NOTE | 2018-12-03 07:42 | RAD ---
Date of service: 12/02/2018 HISTORY: SOB COMPARISON: None available. FINDINGS: LUNGS: Stable hyperinflation which may indicate COPD. Clinically correlate. No infiltrates demonstrated bilaterally. PLEURA: No significant pleural effusion identified, no pneumothorax apparent. CARDIOVASCULAR: No aortic atherosclerotic calcification present. Normal cardiac size. No pulmonary vascular congestion. Somewhat prominent main pulmonary artery segment. OSSEOUS STRUCTURES: No significant abnormalities. VISUALIZED UPPER ABDOMEN: Normal. OTHER FINDINGS: None. IMPRESSION: Hyperinflation as well as main pulmonary artery segment are identified which may indicate COPD and pulmonary artery hypertension. Clinically correlate further. No acute infiltrate or pleural effusion bilaterally. Stable radiography.
--- NOTE | 2018-12-03 08:13 | CT ---
Date of service: 12/02/2018 PROCEDURE: CT HEAD WITHOUT CONTRAST. HISTORY: HEAD INJURY, HEADACHE COMPARISON: 11/17/2018 TECHNIQUE: Axial computed tomography images were obtained through the head/brain without intravenous contrast. Radiation dose: Total exam DLP = 1156.23 mGy-cm. This CT exam was performed using one or more of the following dose reduction techniques: Automated exposure control, adjustment of the mA and/or kV according to patient size, and/or use of iterative reconstruction technique. FINDINGS: HEMORRHAGE: No intracranial hemorrhage. BRAIN: No mass effect or edema. Scattered focal lucencies in the subcortical and periventricular white matter suggestive for chronic microvascular ischemic change. Interval increased prominence of bilateral basal ganglia lacunar infarcts measuring up to 1.3 centimeters on the right and up to 1.1 centimeters on the left. Diffuse generalized parenchymal atrophy.. VENTRICLES: Unremarkable. No hydrocephalus. CALVARIUM: Unremarkable. PARANASAL SINUSES: Unremarkable as visualized. No significant inflammatory changes. MASTOID AIR CELLS: Partial opacification of the bilateral mastoid air cells. OTHER FINDINGS: None. IMPRESSION: No acute intracranial abnormality. Chronic microvascular ischemic change. Generalized parenchymal atrophy. Prominent bilateral basal ganglia lacunar infarcts. If symptoms persists, consider correlation with MRI. A preliminary report was generated at 8:24 p.m. on 12/02/[address] Altaf Andino from [facility].
[2018-12-03] MEDS ORDERED: Enoxaparin 40 mg Syringe SC SCH (10:00)
[2018-12-03] MEDS ORDERED: methylPREDNISolone 40 MG in Sodium Chloride 0.9% 100 ML IVPB SCH ×2 (10:02→22:00)
[2018-12-03] MEDS ORDERED: MethylPREDNISolone 40 mg Vial IV SCH (11:00)
[2018-12-03] MEDS: Multiple Vitamins Tab PO SCH (11:27)
[2018-12-03] MEDS: Pantoprazole 40 mg EC Tab PO SCH (11:28)
[2018-12-03 13:09] LABS: BARBITURATES, UR NEGATIVE (NEGATIVE); BENZODIAZEPINES, UR NEGATIVE (NEGATIVE); OPIATES, UR NEGATIVE (NEGATIVE); PHENCYCLIDINE, UR NEGATIVE (NEGATIVE)
[2018-12-03 13:16] LABS: URINE BILIRUBIN NEGATIVE (NEGATIVE); URINE BLOOD NEGATIVE (NEGATIVE); URINE CLARITY Clear (Clear); URINE COLOR Yellow (YELLOW); URINE GLUCOSE (UA) NORMAL (Normal); URINE LEUKOCYTE ESTERASE NEG Leu/uL (Negative); URINE PROTEIN NEGATIVE (NEGATIVE)
[2018-12-03] MEDS ORDERED: guaiFENesin 200 mg/10 ml Syrup UD PO PRN (14:19)
--- NOTE | 2018-12-03 19:45 | PCM.BM ---
<[place] Mata - Last Filed: 12/03/18 19:42> Treatment Plan Problems - Problems identified on initial assessmt Depression Date Initiated: 12/03/18 Time Initiated: 19:42 Date resolved: 12/03/18 Assessment reference: NA Status: Active Treatment assets and liabiliti Patient Assests: cooperative, insightful, self-reliant, ADL independent, negotiates basic needs, cognitively intact Patient Liabilities: financial problems, poor support system (No family support), substance abuse (Alcohol and marijuana), medical problems (COPD, Asthma, gastritis) - Milieu Protocol Maintain good personal hygiene: daily Encourage regular showers, daily Remind patient to perform daily oral care, every shift Assist patient to perform ADL's Conduct patient checks and document Observation sheet: Q15 minutes (For safety) Maintain personal safety: every shift Educate patient to report safety concerns to staff, every shift Monitor environment for contraband/sharps Medication safety: Monitor for expected outcome, potential side effects: every shift, Assess barriers to learning: every shift, Assess readiness for medication education: every shift <Unique Heredia - Last Filed: 12/05/18 10:57> - Diagnosis (1) Depression Status: Acute Interventions: 12/05/18 10:57 * Assess/adjust medications daily and /or as needed * See patient on an individual basis 7x/week to assess symptoms of depression * Monitor for side effects & effectiveness of medications * (2) Alcohol dependence Status: Acute Interventions: 12/05/18 10:57 * Assess 7x/week regarding severity of withdrawal * Educate regarding risks, benefits, side effects and alternatives of medications * Use Motivational Interviewing for abstinence * Use CBT for relapse prevention * Medication management for withdrawal symptoms * Encourage medication assisted treatment * <Nasima Friedman - Last Filed: 12/10/18 15:26> Family Contact Family involvement: Patient does not wish Family/SO involvement Family contact: Patient declines to allow family contact at present - Goals for Treatment Patient goals for treatment: "I do not know what type of treatment I want." Discharge/Continuing Care - Education Needs Education Needs: Patient Medication, Patient Diagnosis/Disease Process, Patient Coping Skills, Patient Placement options, Patient Community resources - Discharge Discharge Criteria: Free of Suicidal thoughts, Normal sleep pattern, Ability to care for self, Reduction of target symptoms Discharge to:: Prison - Treatment Team Participation Discussed with Family/SO: No Was Patient/Family/SO present at Treatment Team Meeting: Yes
[2018-12-04] MEDS: Albuterol-Ipratrop 3 mg / 0.5 (3 ml) UD INH SCH ×7 (00:07→23:56)
--- NOTE | 2018-12-04 06:42 | HP ---
HISTORY OF PRESENT ILLNESS: Patient is a 58-year-old male with history of COPD, admitted to the hospital with chief complaint of shortness of breath, weakness, fatigue, tiredness. The patient came to the hospital, advised admission. The patient is alcoholic, smoker. PHYSICAL EXAMINATION: GENERAL: The patient is awake, alert, oriented. Short of breath at rest. VITAL SIGNS: Temperature 98, pulse 90. HEENT: Within normal limits. NECK: Supple. CHEST: Symmetrical. HEART: Regular. ABDOMEN: Soft. EXTREMITIES: No edema. ASSESSMENT AND PLAN: The patient suffers from chronic obstructive pulmonary disease, bronchiolitis. The patient to get bedrest, supportive care. Dino Gonzalez MD
[2018-12-04] MEDS: Pantoprazole 40 mg EC Tab PO SCH (10:12)
[2018-12-04] MEDS: Multiple Vitamins Tab PO SCH (10:13)
--- NOTE | 2018-12-04 14:30 | PCM.PSYCH ---
Initial Psychiatric Evaluation - Initial Psychiatric Evaluation Type of Admission: Voluntary Legal Status: Capacity Chief Complaint (in patient's own words): I relapsed on drinking and became increasingly depressed.' History of Present Illness and Precipitating Events: 58 year old male who is single, unemployed, and homeless presents to the ED for COPD exacerbation, depression and suicidal ideation. 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 Patient has history of multiple inpatient psychiatric hospitalizations. He was just discharged from [facility] a few weeks ago. As per the patient, soon after discharge from the hospital he relapsed from drinking and started abusing increasing amount of alcohol. He also reports that he stopped taking medications. As per the patient he was admitted medically few days ago because of COPD exacerbation. Pt states he has become increasingly depressed because of his drinking. He started drinking again about a week ago. Pt reports drinking 5 shot of liquor and 2-3, 20oz beers a day for the past week. Pt's longest time sober was for a week. Pt also states he smokes 7-8 cigarettes/day. Pt states that he thinks someone is after him and his money. Pt states "I have thought of killing myself and I don't know what to do". Pt does not have plans for follow-up for he was banned from the [employer] recently. He wants help from social work if possible. Pt reports depressed mood, feelings of hopelessness and helplessness, poor sleep and poor appetite. He denies any auditory or visual hallucinations or any paranoia. He reports withdrawal symptoms from drinking including anxiety, headaches, shakes, sweating. PMH: COPD, Arthritis Allergies: denies Current Medications: Active Medications Generic Name Dose Route Start Last Admin Trade Name Freq PRN Reason Stop Dose Admin Albuterol/Ipratropium 3 ml 12/03/18 00:00 12/04/18 12:04 Duoneb 3 Mg/0.5 Mg (3 Ml) Ud INH Not Given RQ4 FERNANDA Clonidine HCl 0.1 mg 12/03/18 18:20 Catapres PO Q4H PRN Symptoms of alcohol withdrawl Escitalopram Oxalate 20 mg 12/03/18 10:00 12/04/18 10:25 Lexapro PO 20 mg DAILY FERNANDA Administration Gabapentin 100 mg 12/03/18 10:12/04/18 10:12 Neurontin PO 100 mg TID FERNANDA Administration Guaifenesin 200 mg 12/03/18 14:19 Robitussin PO Q4H PRN Cough and congestion Lisinopril 10 mg 12/03/18 10:00 12/04/18 10:13 Zestril PO 10 mg DAILY FERNANDA Administration Lorazepam 1 mg 12/03/18 18:30 12/04/18 12:09 Ativan PO 12/07/18 18:29 1 mg Q6H FERNANDA Administration Taper Multivitamins 1 tab 12/03/18 10:00 12/04/18 10:13 Hexavitamin PO 1 tab DAILY FERNANDA Administration Pantoprazole Sodium 40 mg 12/03/18 10:00 12/04/18 10:12 Protonix Ec Tab PO 40 mg DAILY FERNANDA Administration Prednisone 40 mg 12/04/18 10:00 12/04/18 10:12 Prednisone Tab PO 12/08/18 10:01 40 mg DAILY FERNANDA Administration Tamsulosin HCl 0.4 mg 12/03/18 10:00 12/04/18 10:12 Flomax PO 0.4 mg DAILY FERNANDA Administration Thiamine HCl 100 mg 12/03/18 10:00 12/04/18 10:12 Vitamin B1 Tab PO 100 mg DAILY FERNANDA Administration Tramadol HCl 25 mg 12/02/18 21:00 Ultram PO Q6 PRN Pain, moderate (4-7) Trazodone HCl 50 mg 12/03/18 22:00 Desyrel PO HS PRN Insomnia Past Psychiatric History - Past Psychiatric History Previous Treatment History: Inpatient Pertinent Medical Hx (Current Medical&Sleep Prob, Allergies): Allergies Allergy/AdvReac Type Severity Reaction Status Date / Time No Known Allergies Allergy Verified 12/02/18 16:06 Albuterol HFA [Ventolin HFA 90 mcg/actuation (8 g)] 2 puff IH [id number] #1 puff 11/28/18 Escitalopram [Lexapro] 20 mg PO DAILY #30 tab 11/28/18 Gabapentin [Neurontin] 100 mg PO TID #90 cap 11/28/18 Lisinopril [Zestril] 10 mg PO DAILY #30 tab 11/28/18 Multivitamins [Hexavitamin] 1 tab PO DAILY #30 tab 11/28/18 Pantoprazole [Protonix EC Tab] 40 mg PO DAILY #30 ect 11/28/18 Tamsulosin [Flomax] 0.4 mg PO DAILY #30 cap 11/28/18 Thiamine [Vitamin B1 Tab] 100 mg PO DAILY #30 tab 11/28/18 Review of Systems - Review of Systems All systems: reviewed and no additional remarkable complaints except - Psychiatric Psychiatric: Anxiety, Hopelessness, Irritability, Suicidal Ideation Mental Status Examination - Personal Presentation Personal Presentation: Looks stated age - Affect Affect: Constricted, Depressed - Motor Activity Motor Activity: Calm - Reliability in Providing Information Reliability in Providing Information: Fair - Speech Speech: Organized - Mood Mood: Depressed, Anxious - Formal Thought Process Formal Thought Process: No Impairment - Obsessions/Compulsions Obsessions: No Compulsions: No - Cognitive Functions Orientation: Person, Place, Situation, Time Sensorium: Alert Attention/Concentration: Attentive Abstract Thinking: [place] Estimate of Intelligence: Below average Judgement: Imparied, as evidence by: Poor judgement, Imparied, as evidence by: Lack of insight into illness - Risk Risk: Suicidal, Withdrawal, Diminished functioning - Limitations Limitations: Living alone DSM 5 DX - DSM 5 DSM 5 Diagnosis: Major depressive disorder recurrent severe without psychotic features Alcohol use disorder severe Alcohol withdrawal - Recommended/Plan of Treatment Treatment Recommendations and Plan of Treatment: Major depressive disorder recurrent severe without psychotic features Alcohol use disorder severe Alcohol withdrawal CBT Psychoeducation Supportive therapy group therapy milieu therapy Ativan taper Lexapro 20 mg p.o. daily Neurontin 100 mg p.o. 3 times daily Hydroxyzine 25 mg p.o. every 6 hours as needed Trazodone 50 mg p.o. nightly - Smoking Cessation Smoking Cessation Initiated: No
[2018-12-05] MEDS: Albuterol-Ipratrop 3 mg / 0.5 (3 ml) UD INH SCH ×5 (04:30→21:46)
[2018-12-05] MEDS ORDERED: Pneumococcal 23-Valent Vaccine IM ONE (10:00)
[2018-12-05] MEDS ORDERED: Influenza Vaccine 60 mcg/0.5 mL SYR (4YR UP) IM ONE (10:00)
[2018-12-05] MEDS: Multiple Vitamins Tab PO SCH (10:38)
[2018-12-05] MEDS: Pantoprazole 40 mg EC Tab PO SCH (10:39)
--- NOTE | 2018-12-05 10:58 | PCM.PYCHPN ---
Psychiatric Progress Note - Psychiatric Progress Note Patient seen today, length of contact: 15 min Patient Chief Complaint: I am feeling depressed.' Problems Identified/Issues Discussed: Patient was seen and evaluated, chart reviewed and discussed with the staff. As per staff patient remained depressed, withdrawn and confined to his room. He still reports depressed mood and at times feelings of hopelessness and helplessness. He still reports withdrawal symptoms from drinking including anxiety, headaches, shakes, anxiety and tremors. He remained isolative and withdrawn. He is taking medication denies any side effects Supportive therapy was given Medication Change: Yes Medical Record Reviewed: Yes Mental Status Examination - Cognitive Function Orientation: Person, Place, Situation, Time Memory: Intact Attention: WNL Concentration: Poor Association: WNL Fund of Knowledge: Poor - Mood Mood: Depressed, Anxious - Affect Affect: Constricted, Depressed - Speech Speech: Soft - Formal Thought Process Formal Thought Process: No Impairment Goal/Treatment Plan - Goal/Treatment Plan Need for Continued Stay: Severe depression anxiety, Severe functional impairment Progress Toward Problem(s) and Goals/Treatment Plan: Major depressive disorder recurrent severe without psychotic features Alcohol use disorder severe Alcohol withdrawal CBT Psychoeducation Supportive therapy group therapy milieu therapy Ativan taper Lexapro 20 mg p.o. daily Neurontin 100 mg p.o. 3 times daily Hydroxyzine 25 mg p.o. every 6 hours as needed Trazodone 50 mg p.o. nightly - Smoking Cessation Smoking Cessation Initiated: No
[2018-12-06] MEDS: Albuterol-Ipratrop 3 mg / 0.5 (3 ml) UD INH SCH ×7 (00:20→21:31)
[2018-12-06] MEDS: Multiple Vitamins Tab PO SCH (09:31)
[2018-12-06] MEDS: Pantoprazole 40 mg EC Tab PO SCH (09:31)
--- NOTE | 2018-12-06 10:19 | CARD ---
APPROVED REPORT Date of service: 12/02/2018 EKG Measurement Heart [id number] <Conclusion> Sinus tachycardia Right atrial enlargement Borderline ECG
[2018-12-07] MEDS: Albuterol-Ipratrop 3 mg / 0.5 (3 ml) UD INH SCH ×7 (00:48→23:54)
[2018-12-07] MEDS: Pantoprazole 40 mg EC Tab PO SCH (09:36)
[2018-12-07] MEDS: Multiple Vitamins Tab PO SCH (09:36)
[2018-12-07] MEDS: Tramadol 25 mg PO PRN (14:18)
[2018-12-07] MEDS: Aluminum Hydroxide/Magnesium Hydroxide Susp (30 mL) PO PRN (18:02)
--- NOTE | 2018-12-07 23:16 | PCM.PYCHPN ---
Psychiatric Progress Note - Psychiatric Progress Note Patient seen today, length of contact: 15 min Patient Chief Complaint: "Down" Problems Identified/Issues Discussed: The pt is seen, chart reviewed, case is discussed with staff. The pt is compliant with medications and reports no side-effects. Symptoms are improving but needs more time to stabilize and to avoid relapse. Pt attends few groups and activities. Support given, psycho-education provided. After care discussed. He is still iffy about any concrete plans and seems like he is trying to extend his stay in the hospital Medication Change: No Medical Record Reviewed: Yes Mental Status Examination - Cognitive Function Orientation: Person, Place, Situation, Time Memory: Intact Attention: WNL Concentration: Poor Association: WNL Fund of Knowledge: Poor - Mood Mood: Depressed, Anxious - Affect Affect: Constricted, Depressed - Speech Speech: Soft - Formal Thought Process Formal Thought Process: No Impairment Goal/Treatment Plan - Goal/Treatment Plan Need for Continued Stay: Discharge may exacerbated symptoms, Severe functional impairment Progress Toward Problem(s) and Goals/Treatment Plan: Continue medications Support and psychoeducation daily Attend groups and activities daily Individual therapy After care planning by GABE and the team
[2018-12-08] MEDS: Pantoprazole 40 mg EC Tab PO SCH (09:30)
[2018-12-08] MEDS: Multiple Vitamins Tab PO SCH (09:30)
[2018-12-08] MEDS: Tramadol 25 mg PO PRN (14:39)
[2018-12-08] MEDS: Aluminum Hydroxide/Magnesium Hydroxide Susp (30 mL) PO PRN (17:57)
--- NOTE | 2018-12-08 23:58 | PCM.PYCHPN ---
Psychiatric Progress Note - Psychiatric Progress Note Patient seen today, length of contact: 15 min Patient Chief Complaint: I m still feeling down.' Problems Identified/Issues Discussed: Patient was seen and evaluated, chart reviewed and discussed with the staff. As per staff patient remained depressed, withdrawn and confined to his room. He still reports depressed mood and at times feelings of hopelessness and helplessness. He still reports withdrawal symptoms from drinking including anxiety, headaches, shakes, anxiety and tremors. He remained isolative and withdrawn. He is taking medication denies any side effects Supportive therapy was given Medication Change: Yes Medical Record Reviewed: Yes Mental Status Examination - Cognitive Function Orientation: Person, Place, Situation, Time Memory: Intact Attention: WNL Concentration: Poor Association: WNL Fund of Knowledge: Poor - Mood Mood: Depressed, Anxious - Affect Affect: Constricted, Depressed - Speech Speech: Soft - Formal Thought Process Formal Thought Process: No Impairment Goal/Treatment Plan - Goal/Treatment Plan Need for Continued Stay: Severe depression anxiety, Severe functional impairment Progress Toward Problem(s) and Goals/Treatment Plan: Major depressive disorder recurrent severe without psychotic features Alcohol use disorder severe Alcohol withdrawal CBT Psychoeducation Supportive therapy group therapy milieu therapy Ativan taper Lexapro 20 mg p.o. daily Neurontin 300 mg p.o. 3 times daily Hydroxyzine 25 mg p.o. every 6 hours as needed Trazodone 50 mg p.o. nightly
[2018-12-09] MEDS: Pantoprazole 40 mg EC Tab PO SCH (09:55)
[2018-12-09] MEDS: Multiple Vitamins Tab PO SCH (09:55)
[2018-12-09] MEDS: Tramadol 25 mg PO PRN (09:58)
[2018-12-10] MEDS: Pantoprazole 40 mg EC Tab PO SCH (09:55)
[2018-12-10] MEDS: Multiple Vitamins Tab PO SCH (09:55)
--- NOTE | 2018-12-10 12:48 | PCM.PYCHPN ---
Psychiatric Progress Note - Psychiatric Progress Note Patient seen today, length of contact: 15 min Patient Chief Complaint: I m still feeling down.' Problems Identified/Issues Discussed: Patient was seen and evaluated, chart reviewed and discussed with the staff. As per staff patient remained depressed, withdrawn and confined to his room. He still reports depressed mood and at times feelings of hopelessness and helplessness. He still reports withdrawal symptoms from drinking including anxiety, headaches, shakes, anxiety and tremors. He remained isolative and withdrawn. He is taking medication denies any side effects Supportive therapy was given Medication Change: No Medical Record Reviewed: Yes Mental Status Examination - Cognitive Function Orientation: Person, Place, Situation, Time Memory: Intact Attention: WNL Concentration: Poor Association: WNL Fund of Knowledge: Poor - Mood Mood: Depressed, Anxious - Affect Affect: Constricted, Depressed - Speech Speech: Soft - Formal Thought Process Formal Thought Process: No Impairment Goal/Treatment Plan - Goal/Treatment Plan Need for Continued Stay: Discharge may exacerbated symptoms, Severe functional impairment Progress Toward Problem(s) and Goals/Treatment Plan: Major depressive disorder recurrent severe without psychotic features Alcohol use disorder severe Alcohol withdrawal CBT Psychoeducation Supportive therapy group therapy milieu therapy Ativan taper Lexapro 20 mg p.o. daily Neurontin 300 mg p.o. 3 times daily Hydroxyzine 25 mg p.o. every 6 hours as needed Trazodone 50 mg p.o. nightly
--- NOTE | 2018-12-10 18:05 | PCM.RRT ---
- Constitutional Appears: Non-toxic, No Acute Distress - Head Head Exam: ATRAUMATIC, NORMOCEPHALIC - Eyes Eye Exam: EOMI - Respiratory Exam Respiratory Exam: Clear to Ausculation Bilateral, NORMAL BREATHING PATTERN. absent: Rhonchi, Wheezes - Cardiovascular Exam Cardiovascular Exam: REGULAR RHYTHM, +S1, +S2 - GI/Abdominal Exam GI & Abdominal Exam: Soft, Normal Bowel Sounds. absent: Tenderness - Neurological Exam Neurological Exam: Alert, Awake, Oriented x3 - Extremities Exam Extremities Exam: Normal Inspection, Tenderness (Right hip tenderness on palpation). absent: Pedal Edema Plan - Assessment of Findings&Treatment Plan [facility] Star Called at 17:44 on 5 [facility] inpatient psych Patient with history of depression/EtOH abuse had a witnessed fall when going to take his PM medications. Per patient, he stood up and "blacked out" when he went to get his meds, and just remembers finding himself on the ground, having fallen on his buttocks. However patient's nurse witnessed the fall and states he fell on his butt and did not hit his head. He was not experiencing any headaches, dizziness, or blurry vision when I interviewed the patient on scene. His only complaint was of right hip pain where he had fallen. The patient is able to weight bear without difficulty. X-rays of the right hip were ordered to rule out any fracture, although based on history and exam, I suspect this to be unlikely.
--- NOTE | 2018-12-11 08:17 | RAD ---
Date of service: 12/10/2018 PROCEDURE: 05/10/2016 HISTORY: fall on right hip COMPARISON: 05/10/2016 TECHNIQUE: AP pelvis and frog's leg view. FINDINGS: Inferior lumbar spondylosis with facet hypertrophic arthrosis. Bilateral hip joint space narrowing with acetabular spurring.-left greater than right Trace right sacroiliac sclerotic arthrosis. Unremarkable pubic symphyseal joint. L 4 to 5 joint space narrowing. Moderate stool retention No fracture or dislocation appreciated IMPRESSION: No fracture or dislocation. Other findings as above.
[2018-12-11] MEDS: Multiple Vitamins Tab PO SCH (09:53)
[2018-12-11] MEDS: Pantoprazole 40 mg EC Tab PO SCH (09:53)
--- NOTE | 2018-12-11 10:36 | PCM.PYCHPN ---
Psychiatric Progress Note - Psychiatric Progress Note Patient seen today, length of contact: 15 min Patient Chief Complaint: I m feeling little better.' Problems Identified/Issues Discussed: Patient was seen and evaluated, chart reviewed and discussed with the staff. He patient reports some improvement in his mood and reports improvement in the feelings of hopelessness and helplessness. He also reports improvement in the withdrawal symptoms. He remained isolative and withdrawn. Symptoms are improving gradually but he needs to stay longer for further stabilization He is taking medication denies any side effects Supportive therapy was given Medication Change: No Medical Record Reviewed: Yes Mental Status Examination - Cognitive Function Orientation: Person, Place, Situation, Time Memory: Intact Attention: WNL Concentration: Poor Association: WNL Fund of Knowledge: Poor - Mood Mood: Depressed, Anxious - Affect Affect: Constricted, Depressed - Speech Speech: Soft - Formal Thought Process Formal Thought Process: No Impairment Goal/Treatment Plan - Goal/Treatment Plan Need for Continued Stay: Discharge may exacerbated symptoms, Severe functional impairment Progress Toward Problem(s) and Goals/Treatment Plan: Major depressive disorder recurrent severe without psychotic features Alcohol use disorder severe Alcohol withdrawal CBT Psychoeducation Supportive therapy group therapy milieu therapy Ativan taper Lexapro 20 mg p.o. daily Neurontin 300 mg p.o. 3 times daily Hydroxyzine 25 mg p.o. every 6 hours as needed Trazodone 50 mg p.o. nightly
[2018-12-11] MEDS ORDERED: Albuterol-Ipratrop 3 mg / 0.5 (3 ml) UD IH ONE (13:00)
[2018-12-12] MEDS: Multiple Vitamins Tab PO SCH (09:26)
[2018-12-12] MEDS: Pantoprazole 40 mg EC Tab PO SCH (09:27)
[2018-12-12] MEDS: Fluticasone-Vilanterol 100/25mcg Diskus INH SCH (10:18)
[2018-12-12] MEDS ORDERED: Albuterol-Ipratrop 3 mg / 0.5 (3 ml) UD INH PRN (15:33)
--- NOTE | 2018-12-12 17:29 | PCM.PYCHPN ---
Psychiatric Progress Note - Psychiatric Progress Note Patient seen today, length of contact: 15 min Patient Chief Complaint: I m feeling little better.' Problems Identified/Issues Discussed: Patient was seen and evaluated, chart reviewed and discussed with the staff. As per staff patient remained depressed, withdrawn and confined to his room. He patient reports some improvement in his mood and reports improvement in the feelings of hopelessness and helplessness. He also reports improvement in the withdrawal symptoms. He remained isolative and withdrawn. Symptoms are improving gradually but he needs to stay longer for further stabilization He is taking medication denies any side effects Supportive therapy was given Medication Change: No Medical Record Reviewed: Yes Mental Status Examination - Cognitive Function Orientation: Person, Place, Situation, Time Memory: Intact Attention: WNL Concentration: Poor Association: WNL Fund of Knowledge: Poor - Mood Mood: Depressed, Anxious - Affect Affect: Constricted, Depressed - Speech Speech: Soft - Formal Thought Process Formal Thought Process: No Impairment Goal/Treatment Plan - Goal/Treatment Plan Need for Continued Stay: Discharge may exacerbated symptoms, Severe functional impairment Progress Toward Problem(s) and Goals/Treatment Plan: Major depressive disorder recurrent severe without psychotic features Alcohol use disorder severe Alcohol withdrawal CBT Psychoeducation Supportive therapy group therapy milieu therapy Ativan taper Lexapro 20 mg p.o. daily Neurontin 300 mg p.o. 3 times daily Hydroxyzine 25 mg p.o. every 6 hours as needed Trazodone 50 mg p.o. nightly
--- NOTE | 2018-12-13 08:03 | PCM.PYCHPN ---
Psychiatric Progress Note - Psychiatric Progress Note Patient seen today, length of contact: 15 min Patient Chief Complaint: I m still feeling down.' Problems Identified/Issues Discussed: Patient was seen and evaluated, chart reviewed and discussed with the staff. He patient reports some improvement in his mood and reports improvement in the feelings of hopelessness and helplessness. He also reports improvement in the withdrawal symptoms. He remained isolative a nd withdrawn. Symptoms are improving gradually but he needs to stay longer for further stabilization He is taking medication denies any side effects Supportive therapy was given Medication Change: No Medical Record Reviewed: Yes Mental Status Examination - Cognitive Function Orientation: Person, Place, Situation, Time Memory: Intact Attention: WNL Concentration: Poor Association: WNL Fund of Knowledge: Poor - Mood Mood: Depressed, Anxious - Affect Affect: Constricted, Depressed - Speech Speech: Soft - Formal Thought Process Formal Thought Process: No Impairment Goal/Treatment Plan - Goal/Treatment Plan Need for Continued Stay: Discharge may exacerbated symptoms, Severe functional impairment Progress Toward Problem(s) and Goals/Treatment Plan: Major depressive disorder recurrent severe without psychotic features Alcohol use disorder severe Alcohol withdrawal CBT Psychoeducation Supportive therapy group therapy milieu therapy Ativan taper Lexapro 20 mg p.o. daily Neurontin 300 mg p.o. 3 times daily Hydroxyzine 25 mg p.o. every 6 hours as needed Trazodone 50 mg p.o. nightly
[2018-12-13] MEDS: Fluticasone-Vilanterol 100/25mcg Diskus INH SCH (08:53)
[2018-12-13] MEDS: Pantoprazole 40 mg EC Tab PO SCH (09:05)
[2018-12-13] MEDS: Multiple Vitamins Tab PO SCH (09:06)
[2018-12-14] MEDS: Fluticasone-Vilanterol 100/25mcg Diskus INH SCH (08:56)
[2018-12-14] MEDS: Pantoprazole 40 mg EC Tab PO SCH (09:57)
[2018-12-14] MEDS: Multiple Vitamins Tab PO SCH (09:57)
[2018-12-15] MEDS: Fluticasone-Vilanterol 100/25mcg Diskus INH SCH (08:06)
--- NOTE | 2018-12-15 09:32 | PCM.BM ---
<Tiki Diallo - Last Filed: 12/15/18 09:31> Treatment Plan Problems - Problems identified on initial assessmt Depression Date Initiated: 12/03/18 Time Initiated: 19:42 Date resolved: 12/03/18 Assessment reference: NA Status: Active Treatment assets and liabiliti Patient Assests: cooperative, insightful, self-reliant, ADL independent, neg otiates basic needs, cognitively intact Patient Liabilities: financial problems, poor support system (No family support), substance abuse (Alcohol and marijuana), medical problems (COPD, Asthma, gastritis) - Milieu Protocol Maintain good personal hygiene: daily Encourage regular showers, daily Remind patient to perform daily oral care, every shift Assist patient to perform ADL's Conduct patient checks and document Observation sheet: Q15 minutes (For safety) Maintain personal safety: every shift Educate patient to report safety concerns to staff, every shift Monitor environment for contraband/sharps Medication safety: Monitor for expected outcome, potential side effects: every shift, Assess barriers to learning: every shift, Assess readiness for medication education: every shift Milieu Narrative: Major depressive disorder recurrent severe without psychotic features Alcohol use disorder severe Alcohol withdrawal CBT Psychoeducation Supportive therapy group therapy milieu therapy Ativan taper Lexapro 20 mg p.o. daily Neurontin 300 mg p.o. 3 times daily Hydroxyzine 25 mg p.o. every 6 hours as needed Trazodone 50 mg p.o. nightly Family Contact Family involvement: Patient does not wish Family/SO involvement Family contact: Patient declines to allow family contact at present - Goals for Treatment Patient goals for treatment: "I do not know what type of treatment I want." Discharge/Continuing Care - Education Needs Education Needs: Patient Medication, Patient Diagnosis/Disease Process, Patient Coping Skills, Patient Placement options, Patient Community resources - Discharge Discharge Criteria: Free of Suicidal thoughts, Normal sleep pattern, Ability to care for self, Reduction of target symptoms Discharge to:: Intermediate - Treatment Team Participation Patient/Family/SO Statement: Major depressive disorder recurrent severe without psychotic features Alcohol use disorder severe Alcohol withdrawal CBT Psychoeducation Supportive therapy group therapy milieu therapy Ativan taper Lexapro 20 mg p.o. daily Neurontin 300 mg p.o. 3 times daily Hydroxyzine 25 mg p.o. every 6 hours as needed Trazodone 50 mg p.o. nightly Discussed with Family/SO: No Was Patient/Family/SO present at Treatment Team Meeting: Yes Treatment Plan Review - Problem Depression Time Initiated: 19:42 - Discharge / Continuing Care Discharge to:: Intermediate Behavioral Health Services: Intensive Outpatient Health Needs: Medications/Rx, Alcohol/Drug treatment <Mare Lazcano - Last Filed: 12/15/18 10:39> Treatment Plan Review - Problem Depression Date Initiated: 12/15/18 Time Initiated: 10:39 Progress toward outcomes: improved <Esequiel Alonzo - Last Filed: 12/15/18 14:38> - Diagnosis (1) Depression Status: Acute Interventions: 12/15/18 14:38 * Assess/adjust medications daily and /or as needed * See patient on an individual basis 7x/week to assess symptoms of depression * Monitor for side effects & effectiveness of medications *
[2018-12-15] MEDS: Multiple Vitamins Tab PO SCH (09:41)
[2018-12-15] MEDS: Pantoprazole 40 mg EC Tab PO SCH (09:41)
--- NOTE | 2018-12-15 14:37 | PCM.PYCHPN ---
Psychiatric Progress Note - Psychiatric Progress Note Patient seen today, length of contact: 16 min Patient Chief Complaint: "I'm not ready" Problems Identified/Issues Discussed: The pt is seen, chart reviewed, case discussed with staff. Support and psychoeducation given No new symptoms reported, improving slowly and needs more time No SEs from medications, risks discussed. After care discussed Medication Change: No Medical Record Reviewed: Yes Mental Status Examination - Cognitive Function Orientation: Person, Place, Situation, Time Memory: Intact Attention: WNL Concentration: Poor Association: WNL Fund of Knowledge: Poor - Mood Mood: Depressed, Anxious - Affect Affect: Constricted, Depressed - Speech Speech: Soft - Formal Thought Process Formal Thought Process: No Impairment Goal/Treatment Plan - Goal/Treatment Plan Need for Continued Stay: Discharge may exacerbated symptoms, Severe functional impairment Progress Toward Problem(s) and Goals/Treatment Plan: Continue medications Support and psychoeducation daily Attend groups and activities daily Individual therapy After care planning by GABE and the team
[2018-12-16] MEDS: Fluticasone-Vilanterol 100/25mcg Diskus INH SCH (08:44)
[2018-12-16] MEDS: Multiple Vitamins Tab PO SCH (10:09)
[2018-12-16] MEDS: Pantoprazole 40 mg EC Tab PO SCH (10:09)
[2018-12-17] MEDS: Fluticasone-Vilanterol 100/25mcg Diskus INH SCH (08:10)
[2018-12-17] MEDS: Multiple Vitamins Tab PO SCH (10:53)
[2018-12-17] MEDS: Pantoprazole 40 mg EC Tab PO SCH (10:53)
[2018-12-17] MEDS ORDERED: Albuterol-Ipratrop 3 mg / 0.5 (3 ml) UD INH PRN ×2 (17:11→17:30)
[2018-12-17] MEDS: Tramadol 25 mg PO PRN (17:30)
[2018-12-18] MEDS: Fluticasone-Vilanterol 100/25mcg Diskus INH SCH (08:25)
[2018-12-18] MEDS: Pantoprazole 40 mg EC Tab PO SCH (09:47)
[2018-12-18] MEDS: Multiple Vitamins Tab PO SCH (09:47)
--- NOTE | 2018-12-18 10:13 | PCM.PYCHPN ---
Psychiatric Progress Note - Psychiatric Progress Note Patient seen today, length of contact: 15 min Patient Chief Complaint: I m feeling much better.' Problems Identified/Issues Discussed: Patient was seen and evaluated, chart reviewed and discussed with the staff. Patient reports improvement in his depressed mood, sleep and appetite. He denies any auditory hallucinations or any paranoia. He reports improvement in the withdrawal symptoms. He is taking medication but denies any side effects Supportive therapy was given Medication Change: No Medical Record Reviewed: Yes Mental Status Examination - Cognitive Function Orientation: Person, Place, Situation, Time Memory: Intact Attention: WNL Concentration: Poor Association: WNL Fund of Knowledge: Poor - Mood Mood: Depressed, Anxious - Affect Affect: Constricted, Depressed - Speech Speech: Soft - Formal Thought Process Formal Thought Process: No Impairment Goal/Treatment Plan - Goal/Treatment Plan Need for Continued Stay: Discharge may exacerbated symptoms, Severe functional impairment Progress Toward Problem(s) and Goals/Treatment Plan: Major depressive disorder recurrent severe without psychotic features Alcohol use disorder severe Alcohol withdrawal CBT Psychoeducation Supportive therapy group therapy milieu therapy Ativan taper Lexapro 20 mg p.o. daily Neurontin 300 mg p.o. 3 times daily Hydroxyzine 25 mg p.o. every 6 hours as needed Trazodone 50 mg p.o. nightly
--- NOTE | 2018-12-18 10:17 | PCM.PYCHDC ---
Mental Status Examination - Mental Status Examination Orientation: Person, Place, Situation, Time Memory: Intact Mood: Neutral Affect: Constricted Speech: Soft Attention: WNL Concentration: WNL Association: WNL Fund of Knowledge: WNL Formal Thought Process: No Impairment Description of patient's judgement and insight: good, fair Psychotic Thoughts and Behaviors: denies any AVH Suicidal Ideation: No Current Homicidal Ideation?: No Discharge Summary - Discharge Note Reason for Hospitalization: 58 year old male who is single, unemployed, and homeless presents to the ED for COPD exacerbation, depression and suicidal ideation. Drum Filler is familiar with this patient. Patient has history of multiple inpatient psychiatric hospitalizations. He was just discharged from [facility] a few weeks ago. As per the patient, soon after discharge from the hospital he relapsed from drinking and started abusing increasing amount of alcohol. He also reports that he stopped taking medications. As per the patient he was admitted medically few days ago because of COPD exacerbation. Pt states he has become increasingly depressed because of his drinking. He started drinking again about a week ago. Pt reports drinking 5 shot of liquor and 2-3, 20oz beers a day for the past week. Pt's longest time sober was for a week. Pt also states he smokes 7-8 cigarettes/day. Pt states that he thinks someone is after him and his money. Pt states "I have thought of killing myself and I don't know what to do". Pt does not have plans for follow-up for he was banned from the [employer] recently. He wants help from social work if possible. Pt reports depressed mood, feelings of hopelessness and helplessness, poor sleep and poor appetite. He denies any auditory or visual hallucinations or any paranoia. He reports withdrawal symptoms from drinking including anxiety, headaches, shakes, sweating. Consultations:: List each consultation separately and include: 1. Reason for request. 2. Findings. 3. Follow-up Summary of Hospital Course include:: 1. Description of specific treatment plan utilized for patients during their course of treatmen. 2. Summarize the time- course for resolution of acute symptoms and/or regressed behaviors. 3. Describe issues identified and worked on during hospitalization. 4. Describe medication utilized. 5. Describe medical problems identified and treated. 6. Reassessment of suicide risk Summary of Hospital Course: During the course of his stay, patient (pt) started progressively improving and no longer remained irritable, depressed, and suicidal. His mood and anxiety were improved and he started attending groups and meetings and started socializing. Patient denied any feelings of hopelessness, helplessness, and worthlessness, denied any problem with the sleep or appetite, denied suicidal ideation or homicidal ideation. Pt denied any auditory or visual hallucinations. He denied any withdrawal symptoms. Pt was treated with medications along with supportive therapy, milieu therapy and group therapy. Some changes were made in his current medications and patient was discharged on following medications. He tolerated these medications very well and denied any side effects. - Diagnosis (1) Depression Status: Acute (2) Alcohol dependence Status: Acute - Final Diagnosis (DSM 5) Condition upon Discharge: STABLE DSM 5: Major depressive disorder recurrent severe without psychotic features Alcohol use disorder severe Alcohol withdrawal Disposition: HOME/ ROUTINE Follow-up Treatment Plan: Followup: He was [facility] to [facility]. Education: Pt was educated and counseled about the risks and benefits of taking and not taking medications. Pt was educated and counseled about the risks of drinking and abusing drugs. Pt was educated and counseled to go to the ER or call 911 if pt develop suicidal ideation or homicidal ideation, worsening of symptoms or severe side effects of the meds. Prescriptions/Medication Reconciliation: Albuterol/Ipratropium [Duoneb 3 mg/0.5 mg (3 ml) UD] 3 ml INH RQ6 PRN #1 neb PRN Reason: Shortness Of Breath Escitalopram [Lexapro] 20 mg PO DAILY #30 tab Fluticasone/Vilanterol 100/25 [Breo Ellipta 100-25 MCG INH] 1 puff INH RQD #1 puff Gabapentin [Neurontin] 300 mg PO TID #90 cap Lisinopril [Zestril] 10 mg PO DAILY #30 tab Mirtazapine [Remeron] 30 mg PO HS #30 tab Pantoprazole [Protonix EC Tab] 40 mg PO DAILY #30 ect Tamsulosin [Flomax] 0.4 mg PO DAILY #30 cap traZODone [Desyrel] 50 mg PO HS PRN #30 tab PRN Reason: Insomnia - Smoking Cessation Smoking Cessation Medication prescribed: No - Antipsychotic Medications Pt discharged on 2 or more routine antipsychotic medications: No
[2018-12-18 12:07] VITALS: RESP 18
[2018-12-18 13:01] VITALS: BP 115/68; PULSE 86; TEMP 98.8; O2SAT 97
== END 2018-12-18 11:40 | disposition home or self-care (01) | DRG 430 ==
LOC: C.ER 15:56 → C.9E 18:07 → C.6T 12-03 11:29 → C.9E 12-03 11:43 → OBSVTOIN 12-03 14:35 → C.5E 12-03 14:35
PROVIDERS: ADMIT Psychiatry & Neurology Psychiatry; ATTEND Psychiatry & Neurology Psychiatry
PROC: HZ2ZZZZ Detoxification Services for Substance Abuse Treatment (ICD-10-PCS; principal; 2018-12-04)
PROC: GZHZZZZ Group Psychotherapy (ICD-10-PCS; 2018-12-04)
PROC: HZ52ZZZ Individual Psychotherapy for Substance Abuse Treatment, Cognitive-Behavioral (ICD-10-PCS; 2018-12-04)
PROC: HZ59ZZZ Individual Psychotherapy for Substance Abuse Treatment, Supportive (ICD-10-PCS; 2018-12-04)
PROC: HZ56ZZZ Individual Psychotherapy for Substance Abuse Treatment, Psychoeducation (ICD-10-PCS; 2018-12-04)
PROC: HZ42ZZZ Group Counseling for Substance Abuse Treatment, Cognitive-Behavioral (ICD-10-PCS; 2018-12-04)
PROC: HZ46ZZZ Group Counseling for Substance Abuse Treatment, Psychoeducation (ICD-10-PCS; 2018-12-04)
PROC: GZ58ZZZ Individual Psychotherapy, Cognitive-Behavioral (ICD-10-PCS; 2018-12-04)
PROC: GZ56ZZZ Individual Psychotherapy, Supportive (ICD-10-PCS; 2018-12-04)
DX: F33.2 Major depressive disorder, recurrent severe without psychotic features (principal); J44.9 Chronic obstructive pulmonary disease, unspecified; J44.1 Chronic obstructive pulmonary disease with (acute) exacerbation; F10.230 Alcohol dependence with withdrawal, uncomplicated; F12.90 Cannabis use, unspecified, uncomplicated; G62.9 Polyneuropathy, unspecified; Y90.0 Blood alcohol level of less than 20 mg/100 ml; F17.210 Nicotine dependence, cigarettes, uncomplicated; F41.8 Other specified anxiety disorders; Z59.0 Homelessness; R45.851 Suicidal ideations; N40.0 Benign prostatic hyperplasia without lower urinary tract symptoms

== ENCOUNTER 2018-12-18 15:21 | Inpatient (IN) | payer MEDICAID ==
[2018-12-18 15:21] VITALS: BMI 18.8
[2018-12-18 15:50] LABS: BASO # 0.1 K/uL (0.0-0.2); EOS # 0.1 K/uL (0.0-0.7); EOS % 0.6 % (0.0-4.0); LYMPH # 2.2 K/uL (1.0-4.3); LYMPH % 20.4 % (20.0-40.0); MEAN CORPUSCULAR HEMOGLOBIN 27.4 pg (27.0-31.0); MEAN PLATELET VOLUME 7.7 fL (7.2-11.7); MONO # 0.5 K/uL (0.0-0.8); NEUT # 7.7 K/uL (1.8-7.0); NRBC % 0.1 % (0.0-2.0); RBC 3.41 Mil/uL (4.40-5.90); RED CELL DISTRIBUTION WIDTH 20.3 % (11.5-14.5); WHITE BLOOD COUNT 10.6 K/uL (4.8-10.8)
[2018-12-18] MEDS ORDERED: Sodium Chloride 0.9% 1,000 ML IV ONE ×3 (15:50→23:08)
[2018-12-18 16:03] LABS: HEMOGLOBIN 9.3 g/dL (12.0-18.0); MEAN CELL VOLUME 85.6 fL (80.0-94.0)
[2018-12-18 16:06] LABS: URINE BILIRUBIN NEGATIVE (NEGATIVE); URINE BLOOD NEGATIVE (NEGATIVE); URINE CLARITY Clear (Clear); URINE COLOR Yellow (YELLOW); URINE GLUCOSE (UA) NORMAL (Normal); URINE LEUKOCYTE ESTERASE NEG Leu/uL (Negative); URINE PROTEIN NEGATIVE (NEGATIVE); URINE UROBILINOGEN NORMAL mg/dL (0.2-1.0)
[2018-12-18 16:10] LABS: ALB/GLOB RATIO 1.6 (1.0-2.1); ALBUMIN 3.4 g/dL (3.5-5.0); ALT/SGPT 21 U/L (21-72); AST/SGOT 21 U/L (17-59); BLOOD UREA NITROGEN 16 mg/dL (9-20); CALCIUM 7.8 mg/dl (8.6-10.4); GFR NON-AFRICAN AMERICAN > 60
[2018-12-18 16:13] LABS: PROTHROMBIN TIME 10.9 SECONDS (9.7-12.2)
[2018-12-18] MEDS ORDERED: Folic Acid 1 MG, Thiamine 100 MG, Multivitamin (MVI) 10 ML in Dextrose 5% In Water 1,00... IV SCH (16:30)
--- NOTE | 2018-12-18 16:35 | C.PDOC ---
History Of Present Illness 58 y/o male brought in by EMS, found unresponsive. Per EMS, patient was found to be hypotensive. 200cc IV fluids administered. On arrival patient is awake but nonverbal. He opens eyes in response to sternal rub. Time Seen by Provider: 12/18/18 15:48 Chief Complaint (Nursing): Altered Mental Status History Per: Patient History/Exam Limitations: Other (Unresponsive) Onset/Duration Of Symptoms: Unknown Onset Of Symptoms: Cannot Confirm Onset Past Medical History Reviewed: Historical Data, Nursing Documentation, Vital Signs Vital Signs: Last Vital Signs Temp 98.1 F 12/18/18 15:31 Pulse 98 H 12/18/18 16:32 Resp 18 12/18/18 16:32 BP 99/50 L 12/18/18 16:32 Pulse Ox 99 12/18/18 16:32 - Medical History PMH: Anxiety, Asthma, Bronchitis, COPD, Depression, Gastritis, Gastrointestinal Ulcer, HTN, Pneumonia Denies: Diabetes, Hepatitis, HIV, Chronic Kidney Disease, Seizures, Sexually Transmitted Disease Surgical History: Appendectomy, Tonsillectomy - [facility] Procedures CONTR ABD ARTERIOGRM NEC (05/20/07) DETOXIFICATION SERVICES FOR SUBSTANCE ABUSE TREATMENT (09/12/18) ESOPHAGOGASTRODUODENOSCOPY [EGD] W/CLOSED BIOPSY (05/20/07) EXCISION OF LOWER ESOPHAGUS, ENDO, DIAGN (05/21/17) EXTIRPATION OF MATTER FROM LOWER ESOPHAGUS, ENDO (05/21/17) GROUP IMAGING TECHNICIAN FOR SUBSTANCE ABUSE TREATMENT, PSYCHOEDUCATION (10/27/18) GROUP IMAGING TECHNICIAN FOR SUBSTANCE ABUSE, COGNITIVE BEHAVIORAL (10/27/18) GROUP PSYCHOTHERAPY (10/27/18) INDIV IMAGING TECHNICIAN FOR SUBSTANCE ABUSE TREATMENT, PSYCHOEDUCATION (01/14/17) INDIV IMAGING TECHNICIAN FOR SUBSTANCE ABUSE, COGNITIVE BEHAVIORAL (01/14/17) INDIV PSYCHOTHERAPY FOR SUBSTANCE ABUSE TREATMENT, SUPPORT (10/27/18) INDIV PSYCHOTHERAPY FOR SUBSTANCE ABUSE, COGNITIV BEHAVIORAL (10/27/18) INDIV PSYCHOTHERAPY FOR SUBSTANCE ABUSE, PSYCHOEDUCATION (10/27/18) INDIVIDUAL PSYCHOTHERAPY, COGNITIVE-BEHAVIORAL (10/27/18) INDIVIDUAL PSYCHOTHERAPY, SUPPORTIVE (10/27/18) INJECT/INFUSE NEC (03/20/12) MEDICATION MANAGEMENT (03/12/17) MEDS MGMT FOR SUBSTANCE ABUSE TREATMENT, OTH REPL MED (03/12/17) Family History: States: Unknown Family Hx - Social History Hx Tobacco Use: Yes Hx Alcohol Use: Yes Hx Substance Use: Yes - Immunization History Hx Tetanus Toxoid Vaccination: (unk) Hx Influenza Vaccination: (unk) Hx Pneumococcal Vaccination: (unk) Review Of Systems Review Of Systems: ROS cannot be obtained secondary to pt's inabilty to answer questions. Physical Exam - Physical Exam Appears: Other (Obese male, hypotensive 63/38 on arrival) Skin: Normal Color, Warm, No Diaphoretic, No Pale Head: Atraumatic, Normacephalic Eye(s): bilateral: PERRL Neck: Supple Chest: Symmetrical Cardiovascular: Rhythm Regular Respiratory: No Decreased Breath Sounds, No Accessory Muscle Use, Rhonchi (scattered) Gastrointestinal/Abdominal: Soft, No Distention Extremity: Bilateral: Normal Color And Temperature, Other (No obvious signs of trauma) Pulses: Left Dorsalis Pedis: Normal, Right Dorsalis Pedis: Normal Neurological/Psych: Other (Opens eyes to sternal rub) ED Course And Treatment - Laboratory Results Result Diagrams: 12/23/18 11:28 12/23/18 11:28 Lab Results: PT 10.9 SECONDS (9.7-12.2) 12/18/18 16:00 INR 1.0 12/18/18 16:00 APTT 33 SECONDS (21-34) 12/18/18 16:00 Total Bilirubin 0.1 mg/dL (0.2-1.3) L 12/18/18 15:47 AST 21 U/L (17-59) 12/18/18 15:47 ALT 21 U/L (21-72) D 12/18/18 15:47 Alkaline Phosphatase 54 U/L (38-126) 12/18/18 15:47 Total Protein 5.5 g/dL (6.3-8.3) L 12/18/18 15:47 Albumin 3.4 g/dL (3.5-5.0) L 12/18/18 15:47 Globulin 2.1 gm/dL (2.2-3.9) L 12/18/18 15:47 Albumin/Globulin Ratio 1.6 (1.0-2.1) 12/18/18 15:47 Urine Color Yellow (YELLOW) 12/18/18 15:52 Urine Clarity Clear (Clear) 12/18/18 15:52 Urine pH 6.0 (5.0-8.0) 12/18/18 15:52 Ur Specific [place] 1.010 (1.003-1.030) 12/18/18 15:52 Urine Protein Negative mg/dL (NEGATIVE) 12/18/18 15:52 Urine Glucose (UA) Normal mg/dL (Normal) 12/18/18 15:52 Urine Ketones Negative mg/dL (NEGATIVE) 12/18/18 15:52 Urine Blood Negative (NEGATIVE) 12/18/18 15:52 Urine Nitrate Negative (NEGATIVE) 12/18/18 15:52 Urine Bilirubin Negative (NEGATIVE) 12/18/18 15:52 Urine Urobilinogen Normal mg/dL (0.2-1.0) 12/18/18 15:52 Ur Leukocyte Esterase Neg James/uL (Negative) 12/18/18 15:52 Urine WBC (Auto) < 1 /hpf (0-5) 12/18/18 15:52 Urine RBC (Auto) 1 /hpf (0-3) 12/18/18 15:52 ECG: Interpreted By Me, Viewed By Me ECG Rhythm: Sinus Rhythm Interpretation Of ECG: NSR @ 92 bpm, normal intervals, normal axis, no ST elevations O2 Sat by Pulse Oximetry: 99 (NC) Pulse Ox Interpretation: Normal - Other Rad CXR X-Ray: Read By Radiologist Interpretation: Accession No. : [id number]. Patient Name / ID : GIRISH LANCASTER / [id number]. Exam Date : 12/18/2018 16:24:42 ( Approved ). Study Comment : Sex / Age : M / 58Y. Creator : Zander Price MD. Dictator : Zander Price MD. Supervisor [employer] : Attendant [employer]ated Laundry : Zander Price MD. Approver2 : Report Date : 12/18/2018 17:30:54. My Comment : . Date of service: 12/18/2018. PROCEDURE: CHEST RADIOGRAPH, 1 VIEW. HISTORY: AMS. COMPARISON: Chest radiograph dated 12/02/2018. FINDINGS: LUNGS: Clear. PLEURA: No pneumothorax or pleural fluid seen. CARDIOVASCULAR: Aortic atherosclerotic calcifications. Cardiomediastinal silhouette stably prominent. OSSEOUS STRUCTURES: Unchanged. VISUALIZED UPPER ABDOMEN: Normal. OTHER FINDINGS: None. IMPRESSION: No active disease. - CT Scan/US CT HEAD Other Rad Studies (CT/US): Read By Radiologist, Radiology Report Reviewed CT/US Interpretation: Accession No. : [id number]. Patient Name / ID : GIRISH LANCASTER / [id number]. Exam Date : 12/18/2018 16:40:11 ( Approved ). Study Comment : Sex / Age : M / 58Y. Creator : Zoila Henderson MD. Dictator : Zoila Henderson MD. Supervisor [employer] : Attendant [employer] Laundry : Zoila Henderson MD. Approver2 : Report Date : 12/18/2018 16:59:33. My Comment : . Date of service: 12/18/2018. PROCEDURE: CT HEAD WITHOUT CONTRAST. HISTORY: AMS. COMPARISON: Noncontrast head CT performed 12/02/18. TECHNIQUE: Axial computed tomography images were obtained through the head/brain without intravenous contrast. Radiation dose: Total exam DLP = 1220.67 mGy-cm. This CT exam was performed using one or more of the following dose reduction techniques: Automated exposure control, adjustment of the mA and/or kV according to patient size, and/or use of iterative reconstruction technique. FINDINGS: Streak artifact limits evaluation of the skull base. HEMORRHAGE: No intracranial hemorrhage. BRAIN: Diffuse atrophy with prominence of the ventricles and sulci noted. No mass effect or edema. Intracranial atherosclerosis. Bilateral basal ganglia lacunar infarcts measuring up to 1.4 cm on the right and 1.1 cm on the left. Scattered periventricular and subcortical white matter hypodensities, which are nonspecific, but often seen with chronic microvascular ischemic disease. Please note that MRI with diffusion imaging is more sensitive in the detection of acute ischemic event. VENTRICLES: No hydrocephalus. CALVARIUM: Unremarkable. PARANASAL SINUSES: Partial opacification/mucosal thickening of the ethmoid air cells. MASTOID AIR CELLS: Small fluid within the right mastoid air cells. Left mastoid air cells appear clear. OTHER FINDINGS: None. IMPRESSION: Prominent bilateral basal ganglia lacunar infarcts re-identified. Chronic microvascular ischemic change. Generalized atrophy. Small fluid within the rig ht mastoid air cells. Correlate clinically for mastoiditis. Partial opacification/mucosal thickening of the ethmoid air cells. Correlate clinically for sinusitis. Additional findings as above. Medical Decision Making Medical Decision Making: Impression: 58 y/o hypotensive male, AMS, r/o intracranial hemorrhage, r/o sepsis Plan: --Labs --CXR --CT Head --IV fluids Labs reviewed: Blood glucose 230. Alcohol 318. Trop negative. Blood pressure improved to 99/50. 17:[address] Mcgill, medicine on-call, accepts patient to service. Pressure back down to 78/48. Paged signal system testing maintainer on-call. 18:00 Case discussed with signal system testing maintainer, Dr. Alison Clay, who requests osmolality, lactate, and TSH level. Notified of ICU consult. 18:16 Dr. Alison Clay evaluating patient at bedside in the ED. Reviewed findings, Dr. Clay accepts patient to the ICU. Disposition Discussed With : Susannah Mcgill Doctor Will See Patient In The: Hospital - Disposition Disposition: HOSPITALIZED Disposition Time: 18:20 Condition: SERIOUS - Clinical Impression Clinical Impression: Altered mental status, Alcohol intoxication, Anemia, Hyperglycemia, Hypotension - Scribe Statement The provider has reviewed the documentation as recorded by the Radha Barrera Provider Attestation: All medical record entries made by the Scribkeri were at my direction and personally dictated by me. I have reviewed the chart and agree that the record accurately reflects my personal performance of the history, physical exam, medical decision making, and the department course for this patient. I have also personally directed, reviewed, and agree with the discharge instructions and disposition.
[2018-12-18 16:45] LABS: BARBITURATES, UR NEGATIVE (NEGATIVE); BENZODIAZEPINES, UR NEGATIVE (NEGATIVE); OPIATES, UR NEGATIVE (NEGATIVE); PHENCYCLIDINE, UR NEGATIVE (NEGATIVE)
[2018-12-18] MEDS ORDERED: Naloxone HCl 2mg/2ml syr IVP ONE (16:53)
[2018-12-18] MEDS: Folic Acid 1 MG, Thiamine 100 MG, Multivitamin (MVI) 10 ML in Dextrose 5% In Water 1,00... IV SCH (16:58)
--- NOTE | 2018-12-18 17:03 | CT ---
Date of service: 12/18/2018 PROCEDURE: CT HEAD WITHOUT CONTRAST. HISTORY: AMS COMPARISON: Noncontrast head CT performed 12/02/18 TECHNIQUE: Axial computed tomography images were obtained through the head/brain without intravenous contrast. Radiation dose: Total exam DLP = 1220.67 mGy-cm. This CT exam was performed using one or more of the following dose reduction techniques: Automated exposure control, adjustment of the mA and/or kV according to patient size, and/or use of iterative reconstruction technique. FINDINGS: Streak artifact limits evaluation of the skull base. HEMORRHAGE: No intracranial hemorrhage. BRAIN: Diffuse atrophy with prominence of the ventricles and sulci noted. No mass effect or edema. Intracranial atherosclerosis. Bilateral basal ganglia lacunar infarcts measuring up to 1.4 cm on the right and 1.1 cm on the left. Scattered periventricular and subcortical white matter hypodensities, which are nonspecific, but often seen with chronic microvascular ischemic disease. Please note that MRI with diffusion imaging is more sensitive in the detection of acute ischemic event. VENTRICLES: No hydrocephalus. CALVARIUM: Unremarkable. PARANASAL SINUSES: Partial opacification/mucosal thickening of the ethmoid air cells. MASTOID AIR CELLS: Small fluid within the right mastoid air cells. Left mastoid air cells appear clear. OTHER FINDINGS: None. IMPRESSION: Prominent bilateral basal ganglia lacunar infarcts re-identified. Chronic microvascular ischemic change. Generalized atrophy. Small fluid within the right mastoid air cells. Correlate clinically for mastoiditis. Partial opacification/mucosal thickening of the ethmoid air cells. Correlate clinically for sinusitis. Additional findings as above.
[2018-12-18 17:12] LABS: LIPASE 56 U/L (23-300)
--- NOTE | 2018-12-18 17:34 | RAD ---
Date of service: 12/18/2018 PROCEDURE: CHEST RADIOGRAPH, 1 VIEW HISTORY: AMS COMPARISON: Chest radiograph dated 12/02/2018. FINDINGS: LUNGS: Clear. PLEURA: No pneumothorax or pleural fluid seen. CARDIOVASCULAR: Aortic atherosclerotic calcifications. Cardiomediastinal silhouette stably prominent. OSSEOUS STRUCTURES: Unchanged. VISUALIZED UPPER ABDOMEN: Normal. OTHER FINDINGS: None. IMPRESSION: No active disease.
[2018-12-18 18:19] LABS: VENOUS BLOOD GAS BASE EXCESS -1.9 mmol/L (0.0-2.0); VENOUS BLOOD GAS PCO2 67 mmHg (40-60); VENOUS BLOOD GAS PO2 66 mm/Hg (30-55); VENOUS BLOOD PH 7.22 (7.32-7.43)
[2018-12-18 18:47] LABS: ACETAMINOPHEN < 10.0 ug/mL (10.0-30.0); SALICYLATE < 1.0 mg/dL 1
--- NOTE | 2018-12-18 19:27 | CP.PCM.CON ---
<Aguilar Puente - Last Filed: 12/18/18 19:12> History of Present Illness - History of Present Illness History of Present Illness: PGY-1 ICU consult note for Dr Alison Clay 58 year old male with pmhx of Anxiety, asthma, bronchitis, COPD, depression, HTN, was found unresponsive, brought by EMS who states was hypotensive, and given fluids on site, as per ED physician, patient was awake at time of arrival, but nonverbal. Patient has elevated alcohol levels and hypotensive in the ED. Patient not responding at time of encounter, but responds to sternal rub. NS given in ED, patient transferred to ICU for aspiration precautions and close monitoring. ROS unattainable due to patient status. Pmhx: as stated above Shx: appendectomy and tonsillectomy as per chart check Meds: as per chart, trazodone, tamsulosin, flomax, protonix, hexavitamin, remeron, zestril, neurotin, breo lipta, lexapro, duonebs, ventolin Sochx: Alcohol use Review of Systems - Review of Systems Systems not reviewed;Unavailable: Acuity of Condition, Altered Mental Status Past Patient History - Infectious Disease Hx of Infectious Diseases: None - Past Medical History & Family History Past Medical History?: Yes - Past Social History Smoking Status: Heavy Smoker > 10 Cigarettes Daily - CARDIAC Hx Hypertension: Yes - PULMONARY Hx Asthma: Yes Hx Bronchitis: Yes Hx Chronic Obstructive Pulmonary Disease (COPD): Yes Hx Pneumonia: Yes - NEUROLOGICAL Hx Seizures: No - HEENT Hx HEENT Problems: No - RENAL Hx Chronic Kidney Disease: No - ENDOCRINE/METABOLIC Hx Endocrine Disorders: No - HEMATOLOGICAL/ONCOLOGICAL Hx Human Immunodeficiency Virus (HIV): No - INTEGUMENTARY Hx Dermatological Problems: No - MUSCULOSKELETAL/RHEUMATOLOGICAL Hx Musculoskeletal Disorders: No Hx Falls: No - GASTROINTESTINAL Hx Gastritis: Yes - GENITOURINARY/GYNECOLOGICAL Hx Sexually Transmitted Disorders: No - PSYCHIATRIC Hx Anxiety: Yes Hx Depression: Yes Hx Substance Use: Yes - SURGICAL HISTORY Hx Appendectomy: Yes Hx Tonsillectomy: Yes - ANESTHESIA Hx Anesthesia: Yes Hx Anesthesia Reactions: No Hx Malignant Hyperthermia: No Meds Allergies/Adverse Reactions: Allergies Allergy/AdvReac Type Severity Reaction Status Date / Time No Known Allergies Allergy Verified 12/18/18 15:42 - Medications Medications: Current Medications Folic Acid 1 mg/ Thiamine HCl 100 mg/ Multivitamins/Vitamin C 10 ml/ Dextrose 1,011.2 mls @ 150 mls/hr IV Q24H FERNANDA Last Admin: 12/18/18 16:58 Dose: 150 mls/hr Physical Exam - Head Exam Head Exam: ATRAUMATIC, NORMAL INSPECTION, NORMOCEPHALIC - ENT Exam ENT Exam: Normal Exam - Neck Exam Neck exam: Positive for: Normal Inspection - Respiratory Exam Respiratory Exam: Clear to Auscultation Bilateral, NORMAL BREATHING PATTERN - Cardiovascular Exam Cardiovascular Exam: REGULAR RHYTHM, +S1, +S2 - GI/Abdominal Exam GI & Abdominal Exam: Soft - Extremities Exam Extremities exam: Positive for: normal inspection - Neurological Exam Additional comments: not alert, not awake Neuro exam unable to be perform due to patient's status - Skin Skin Exam: Dry, Normal Color Results - Vital Signs Recent Vital Signs: Last Vital Signs Temp 98.1 F 12/18/18 15:31 Pulse 95 H 12/18/18 19:00 Resp 22 12/18/18 17:47 BP 86/46 L 12/18/18 19:00 Pulse Ox 99 12/18/18 19:00 - Labs Result Diagrams: 12/18/18 15:47 12/18/18 15:47 Labs: Laboratory Results - last 24 hr 12/18/18 12/18/18 12/18/18 15:29 15:47 15:47 WBC 10.6 RBC 3.41 L Hgb 9.3 L D Hct 29.2 L MCV 85.6 D MCH 27.4 MCHC 32.0 L RDW 20.3 H Plt Count 289 MPV 7.7 Neut % (Auto) 73.0 Lymph % (Auto) 20.4 [place] % (Auto) 5.0 Eos % (Auto) 0.6 Baso % (Auto) 1.0 Neut # (Auto) 7.7 H Lymph # (Auto) 2.2 [place] # (Auto) 0.5 Eos # (Auto) 0.1 Baso # (Auto) 0.1 PT INR APTT pO2 VBG pH VBG pCO2 VBG HCO3 VBG Total CO2 VBG O2 Sat (Calc) VBG Base Excess VBG Potassium Glucose Lactate Crit Value Called To Crit Value Called By Crit Value Read Back Blood Gas Notified Time Sodium 135 Potassium 4.1 Chloride 99 Carbon Dioxide 27 Anion Gap 14 BUN 16 Creatinine 0.9 Est GFR ( Amer) > 60 Est GFR (Non-Af Amer) > 60 POC Glucose (mg/dL) 230 H Random Glucose 86 Calcium 7.8 L Phosphorus 3.2 Magnesium 1.9 Total Bilirubin 0.1 L AST 21 ALT 21 D Alkaline Phosphatase 54 Ammonia Troponin I NT-Pro-B Natriuret Pep Total Protein 5.5 L Albumin 3.4 L Globulin 2.1 L Albumin/Globulin Ratio 1.6 Lipase TSH 3rd Generation Venous Blood Potassium Urine Color Urine Clarity Urine pH Ur Specific [place] Urine Protein Urine Glucose (UA) Urine Ketones Urine Blood Urine Nitrate Urine Bilirubin Urine Urobilinogen Ur Leukocyte Esterase Urine WBC (Auto) Urine RBC (Auto) Salicylates Urine Opiates Screen Urine Methadone Screen Acetaminophen Ur Barbiturates Screen Ur Phencyclidine Scrn Ur Amphetamines Screen U Benzodiazepines Scrn U Oth Cocaine Metabols U Cannabinoids Screen Alcohol, Quantitative 318 H 12/18/18 12/18/18 12/18/18 15:47 15:52 16:00 WBC RBC Hgb Hct MCV MCH MCHC RDW Plt Count MPV Neut % (Auto) Lymph % (Auto) [place] % (Auto) Eos % (Auto) Baso % (Auto) Neut # (Auto) Lymph # (Auto) [place] # (Auto) Eos # (Auto) Baso # (Auto) PT 10.9 INR 1.0 APTT 33 pO2 VBG pH VBG pCO2 VBG HCO3 VBG Total CO2 VBG O2 Sat (Calc) VBG Base Excess VBG Potassium Glucose Lactate Crit Value Called To Crit Value Called By Crit Value Read Back Blood Gas Notified Time Sodium Potassium Chloride Carbon Dioxide Anion Gap BUN Creatinine Est GFR ( Amer) Est GFR (Non-Af Amer) POC Glucose (mg/dL) Random Glucose Calcium Phosphorus Magnesium Total Bilirubin AST ALT Alkaline Phosphatase Ammonia Troponin I NT-Pro-B Natriuret Pep Total Protein Albumin Globulin Albumin/Globulin Ratio Lipase TSH 3rd Generation Venous Blood Potassium Urine Color Yellow Urine Clarity Clear Urine pH 6.0 Ur Specific [place] 1.010 Urine Protein Negative Urine Glucose (UA) Normal Urine Ketones Negative Urine Blood Negative Urine Nitrate Negative Urine Bilirubin Negative Urine Urobilinogen Normal Ur Leukocyte Esterase Neg Urine WBC (Auto) < 1 Urine RBC (Auto) 1 Salicylates Urine Opiates Screen Negative Urine Methadone Screen Negative Acetaminophen Ur Barbiturates Screen Negative Ur Phencyclidine Scrn Negative Ur Amphetamines Screen Negative U Benzodiazepines Scrn Negative U Oth Cocaine Metabols Negative U Cannabinoids Screen Negative Alcohol, Quantitative 12/18/18 12/18/18 12/18/18 16:10 16:10 18:15 WBC RBC Hgb Hct MCV MCH MCHC RDW Plt Count MPV Neut % (Auto) Lymph % (Auto) [place] % (Auto) Eos % (Auto) Baso % (Auto) Neut # (Auto) Lymph # (Auto) [place] # (Auto) Eos # (Auto) Baso # (Auto) PT INR APTT pO2 66 H VBG pH 7.22 L VBG pCO2 67 H* VBG HCO3 23.2 VBG Total CO2 29.5 H VBG O2 Sat (Calc) 94.0 H VBG Base Excess -1.9 L VBG Potassium 3.8 Glucose 130 H Lactate 1.7 Crit Value Called To garry Ellis Crit Value Called By Jaydon fitzpatrick Crit Value Read Back Y Blood Gas Notified Time 181 Sodium 138.0 Potassium Chloride 106.0 Carbon Dioxide Anion Gap BUN Creatinine Est GFR ( Amer) Est GFR (Non-Af Amer) POC Glucose (mg/dL) Random Glucose Calcium Phosphorus Magnesium Total Bilirubin AST ALT Alkaline Phosphatase Ammonia 13 Troponin I < 0.0120 NT-Pro-B Natriuret Pep Total Protein Albumin Globulin Albumin/Globulin Ratio Lipase 56 TSH 3rd Generation Venous Blood Potassium 3.8 Urine Color Urine Clarity Urine pH Ur Specific [place] Urine Protein Urine Glucose (UA) Urine Ketones Urine Blood Urine Nitrate Urine Bilirubin Urine Urobilinogen Ur Leukocyte Esterase Urine WBC (Auto) Urine RBC (Auto) Salicylates Urine Opiates Screen Urine Methadone Screen Acetaminophen Ur Barbiturates Screen Ur Phencyclidine Scrn Ur Amphetamines Screen U Benzodiazepines Scrn U Oth Cocaine Metabols U Cannabinoids Screen Alcohol, Quantitative 12/18/18 12/18/18 18:23 18:30 WBC RBC Hgb Hct MCV MCH MCHC RDW Plt Count MPV Neut % (Auto) Lymph % (Auto) [place] % (Auto) Eos % (Auto) Baso % (Auto) Neut # (Auto) Lymph # (Auto) [place] # (Auto) Eos # (Auto) Baso # (Auto) PT INR APTT pO2 VBG pH VBG pCO2 VBG HCO3 VBG Total CO2 VBG O2 Sat (Calc) VBG Base Excess VBG Potassium Glucose Lactate Crit Value Called To Crit Value Called By Crit Value Read Back Blood Gas Notified Time Sodium Potassium Chloride Carbon Dioxide Anion Gap BUN Creatinine Est GFR ( Amer) Est GFR (Non-Af Amer) POC Glucose (mg/dL) Random Glucose Calcium Phosphorus Magnesium Total Bilirubin AST ALT Alkaline Phosphatase Ammonia Troponin I NT-Pro-B Natriuret Pep 172 Total Protein Albumin Globulin Albumin/Globulin Ratio Lipase TSH 3rd Generation 1.95 Venous Blood Potassium Urine Color Urine Clarity Urine pH Ur Specific [place] Urine Protein Urine Glucose (UA) Urine Ketones Urine Blood Urine Nitrate Urine Bilirubin Urine Urobilinogen Ur Leukocyte Esterase Urine WBC (Auto) Urine RBC (Auto) Salicylates < 1.0 Urine Opiates Screen Urine Methadone Screen Acetaminophen < 10.0 L Ur Barbiturates Screen Ur Phencyclidine Scrn Ur Amphetamines Screen U Benzodiazepines Scrn U Oth Cocaine Metabols U Cannabinoids Screen Alcohol, Quantitative Assessment & Plan - Assessment and Plan (Free Text) Plan: Patient is 58 year old make with known alcohol use disorder came to ED for alcohol intoxication, not responding, admitted to ICU for monitoring patient aspiration precautions, possible intubation. Neuro alcohol 318 not responding Neuro checks Pulm Monitor end tidal CO2 aspiration precautions AB.22, CO2 67, HCO3 23.2 repeat ABG in am repeat AM labs Cardio Hypotensive Monitor vitals continue fluids GI swallow eval Nephro 1L bolus given in ER Banana bag PPX DVT: Heparin 5000 SC Q12H SCDS GI: protonix Plan discussed with Dr Alison Puente, PGY-1 - Date & Time Date: 12/18/18 Time: 19:27 <Americo Clay - Last Filed: 12/18/18 23:16> Meds - Medications Medications: Current Medications Heparin Sodium (Porcine) (Heparin) 5,000 units SC Q12 [facility] Last Admin: 12/18/18 22:50 Dose: 5,000 units Folic Acid 1 mg/ Thiamine HCl 100 mg/ Multivitamins/Vitamin C 10 ml/ Dextrose 1,011.2 mls @ 150 mls/hr IV Q24H [facility] Last Admin: 12/18/18 16:58 Dose: 150 mls/hr Sodium Chloride (Sodium Chloride 0.9%) 1,000 mls @ 250 mls/hr IV .Q4H ONE Stop: 12/19/18 03:06 Sodium Chloride (Sodium Chloride 0.9%) 1,000 mls @ 1,000 mls/hr IV .Q1H ONE Stop: 12/19/18 00:07 Dexmedetomidine HCl 200 mcg/ (Sodium Chloride) 50 mls @ 3.63 mls/hr IV TITR PRN; Protocol PRN Reason: Agitation Results - Vital Signs Recent Vital Signs: Last Vital Signs Temp 98.0 F 12/18/18 20:37 Pulse 80 12/18/18 20:37 Resp 22 12/18/18 17:47 BP 89/53 L 12/18/18 20:37 Pulse Ox 98 12/18/18 20:37 - Labs Result Diagrams: 12/18/18 15:47 12/18/18 15:47 Labs: Laboratory Results - last 24 hr 12/18/18 12/18/18 12/18/18 15:29 15:47 15:47 WBC 10.6 RBC 3.41 L Hgb 9.3 L D Hct 29.2 L MCV 85.6 D MCH 27.4 MCHC 32.0 L RDW 20.3 H Plt Count 289 MPV 7.7 Neut % (Auto) 73.0 Lymph % (Auto) 20.4 [place] % (Auto) 5.0 Eos % (Auto) 0.6 Baso % (Auto) 1.0 Neut # (Auto) 7.7 H Lymph # (Auto) 2.2 [place] # (Auto) 0.5 Eos # (Auto) 0.1 Baso # (Auto) 0.1 PT INR APTT pO2 VBG pH VBG pCO2 VBG HCO3 VBG Total CO2 VBG O2 Sat (Calc) VBG Base Excess VBG Potassium Glucose Lactate Crit Value Called To Crit Value Called By Crit Value Read Back Blood Gas Notified Time Sodium 135 Potassium 4.1 Chloride 99 Carbon Dioxide 27 Anion Gap 14 BUN 16 Creatinine 0.9 Est GFR ( Amer) > 60 Est GFR (Non-Af Amer) > 60 POC Glucose (mg/dL) 230 H Random Glucose 86 Calcium 7.8 L Phosphorus 3.2 Magnesium 1.9 Total Bilirubin 0.1 L AST 21 ALT 21 D Alkaline Phosphatase 54 Ammonia Troponin I NT-Pro-B Natriuret Pep Total Protein 5.5 L Albumin 3.4 L Globulin 2.1 L Albumin/Globulin Ratio 1.6 Lipase TSH 3rd Generation Venous Blood Potassium Urine Color Urine Clarity Urine pH Ur Specific [place] Urine Protein Urine Glucose (UA) Urine Ketones Urine Blood Urine Nitrate Urine Bilirubin Urine Urobilinogen Ur Leukocyte Esterase Urine WBC (Auto) Urine RBC (Auto) Salicylates Urine Opiates Screen Urine Methadone Screen Acetaminophen Ur Barbiturates Screen Ur Phencyclidine Scrn Ur Amphetamines Screen U Benzodiazepines Scrn U Oth Cocaine Metabols U Cannabinoids Screen Alcohol, Quantitative 318 H 12/18/18 12/18/18 12/18/18 15:47 15:52 16:00 WBC RBC Hgb Hct MCV MCH MCHC RDW Plt Count MPV Neut % (Auto) Lymph % (Auto) [place] % (Auto) Eos % (Auto) Baso % (Auto) Neut # (Auto) Lymph # (Auto) [place] # (Auto) Eos # (Auto) Baso # (Auto) PT 10.9 INR 1.0 APTT 33 pO2 VBG pH VBG pCO2 VBG HCO3 VBG Total CO2 VBG O2 Sat (Calc) VBG Base Excess VBG Potassium Glucose Lactate Crit Value Called To Crit Value Called By Crit Value Read Back Blood Gas Notified Time Sodium Potassium Chloride Carbon Dioxide Anion Gap BUN Creatinine Est GFR ( Amer) Est GFR (Non-Af Amer) POC Glucose (mg/dL) Random Glucose Calcium Phosphorus Magnesium Total Bilirubin AST ALT Alkaline Phosphatase Ammonia Troponin I NT-Pro-B Natriuret Pep Total Protein Albumin Globulin Albumin/Globulin Ratio Lipase TSH 3rd Generation Venous Blood Potassium Urine Color Yellow Urine Clarity Clear Urine pH 6.0 Ur Specific [place] 1.010 Urine Protein Negative Urine Glucose (UA) Normal Urine Ketones Negative Urine Blood Negative Urine Nitrate Negative Urine Bilirubin Negative Urine Urobilinogen Normal Ur Leukocyte Esterase Neg Urine WBC (Auto) < 1 Urine RBC (Auto) 1 Salicylates Urine Opiates Screen Negative Urine Methadone Screen Negative Acetaminophen Ur Barbiturates Screen Negative Ur Phencyclidine Scrn Negative Ur Amphetamines Screen Negative U Benzodiazepines Scrn Negative U Oth Cocaine Metabols Negative U Cannabinoids Screen Negative Alcohol, Quantitative 12/18/18 12/18/18 12/18/18 16:10 16:10 18:15 WBC RBC Hgb Hct MCV MCH MCHC RDW Plt Count MPV Neut % (Auto) Lymph % (Auto) [place] % (Auto) Eos % (Auto) Baso % (Auto) Neut # (Auto) Lymph # (Auto) [place] # (Auto) Eos # (Auto) Baso # (Auto) PT INR APTT pO2 66 H VBG pH 7.22 L VBG pCO2 67 H* VBG HCO3 23.2 VBG Total CO2 29.5 H VBG O2 Sat (Calc) 94.0 H VBG Base Excess -1.9 L VBG Potassium 3.8 Glucose 130 H Lactate 1.7 Crit Value Called To garry Ellis Crit Value Called By Jaydon fitzpatrick Crit Value Read Back Y Blood Gas Notified Time 1818 Sodium 138.0 Potassium Chloride 106.0 Carbon Dioxide Anion Gap BUN Creatinine Est GFR ( Amer) Est GFR (Non-Af Amer) POC Glucose (mg/dL) Random Glucose Calcium Phosphorus Magnesium Total Bilirubin AST ALT Alkaline Phosphatase Ammonia 13 Troponin I < 0.0120 NT-Pro-B Natriuret Pep Total Protein Albumin Globulin Albumin/Globulin Ratio Lipase 56 TSH 3rd Generation Venous Blood Potassium 3.8 Urine Color Urine Clarity Urine pH Ur Specific [place] Urine Protein Urine Glucose (UA) Urine Ketones Urine Blood Urine Nitrate Urine Bilirubin Urine Urobilinogen Ur Leukocyte Esterase Urine WBC (Auto) Urine RBC (Auto) Salicylates Urine Opiates Screen Urine Methadone Screen Acetaminophen Ur Barbiturates Screen Ur Phencyclidine Scrn Ur Amphetamines Screen U Benzodiazepines Scrn U Oth Cocaine Metabols U Cannabinoids Screen Alcohol, Quantitative 12/18/18 12/18/18 18:23 18:30 WBC RBC Hgb Hct MCV MCH MCHC RDW Plt Count MPV Neut % (Auto) Lymph % (Auto) [place] % (Auto) Eos % (Auto) Baso % (Auto) Neut # (Auto) Lymph # (Auto) [place] # (Auto) Eos # (Auto) Baso # (Auto) PT INR APTT pO2 VBG pH VBG pCO2 VBG HCO3 VBG Total CO2 VBG O2 Sat (Calc) VBG Base Excess VBG Potassium Glucose Lactate Crit Value Called To Crit Value Called By Crit Value Read Back Blood Gas Notified Time Sodium Potassium Chloride Carbon Dioxide Anion Gap BUN Creatinine Est GFR ( Amer) Est GFR (Non-Af Amer) POC Glucose (mg/dL) Random Glucose Calcium Phosphorus Magnesium Total Bilirubin AST ALT Alkaline Phosphatase Ammonia Troponin I NT-Pro-B Natriuret Pep 172 Total Protein Albumin Globulin Albumin/Globulin Ratio Lipase TSH 3rd Generation 1.95 Venous Blood Potassium Urine Color Urine Clarity Urine pH Ur Specific [place] Urine Protein Urine Glucose (UA) Urine Ketones Urine Blood Urine Nitrate Urine Bilirubin Urine Urobilinogen Ur Leukocyte Esterase Urine WBC (Auto) Urine RBC (Auto) Salicylates < 1.0 Urine Opiates Screen Urine Methadone Screen Acetaminophen < 10.0 L Ur Barbiturates Screen Ur Phencyclidine Scrn Ur Amphetamines Screen U Benzodiazepines Scrn U Oth Cocaine Metabols U Cannabinoids Screen Alcohol, Quantitative Assessment & Plan - Assessment and Plan (Free Text) Plan: Patient well known to [facility]. Patient found to be severely intoxicated, not responding to sternal rub. Patient found to have 3 bottles of Fireball Whisky along with his discharge medications which included trazodone and gabapentin. -Patient to be observed in ICu until patient's alcohol metabolized out and patient able to protect his airway. -d/w ICU team and Er physician. -Patient advised to stop drinking alcohol.
[2018-12-18] MEDS ORDERED: Dexmedetomidine Hydrochloride 200 MCG in Sodium Chloride 0.9% 48 ML IV PRN (23:08)
[2018-12-18] MEDS ORDERED: Magnesium Sulfate 1 gm in D5W 1 GM/100 ML BAG IVPB ONE (23:26)
[2018-12-19] MEDS ORDERED: DOPamine 400mg/250ml D5W 400 MG/250 ML BAG IV PRN (02:08)
[2018-12-19] MEDS ORDERED: Sodium Chloride 0.9% 1,000 ML IV ONE (02:09)
[2018-12-19] MEDS ORDERED: Lactated Ringer's 1,000 ML IV ONE (04:01)
[2018-12-19 06:42] LABS: BASO % 0.4 % (0.0-2.0); EOS # 0.1 K/uL (0.0-0.7); EOS % 0.9 % (0.0-4.0); HEMOGLOBIN 9.6 g/dL (12.0-18.0); LYMPH # 1.3 K/uL (1.0-4.3); LYMPH % 20.5 % (20.0-40.0); MEAN CELL VOLUME 85.3 fL (80.0-94.0); MEAN CORPUSCULAR HEMOGLOBIN 27.6 pg (27.0-31.0); MEAN CORPUSCULAR HGB CONC 32.4 g/dL (33.0-37.0); MEAN PLATELET VOLUME 7.3 fL (7.2-11.7); MONO # 0.4 K/uL (0.0-0.8); MONO % 6.1 % (0.0-10.0); NEUT # 4.5 K/uL (1.8-7.0); NEUT % 72.1 % (50.0-75.0); RBC 3.47 Mil/uL (4.40-5.90); RED CELL DISTRIBUTION WIDTH 20.8 % (11.5-14.5); WHITE BLOOD COUNT 6.3 K/uL (4.8-10.8)
[2018-12-19 06:57] LABS: ALB/GLOB RATIO 1.3 (1.0-2.1); ALT/SGPT 25 U/L (21-72); AST/SGOT 21 U/L (17-59); BLOOD UREA NITROGEN 11 mg/dL (9-20); CALCIUM 7.2 mg/dl (8.6-10.4); GFR NON-AFRICAN AMERICAN > 60
[2018-12-19] MEDS: Multiple Vitamins Tab PO SCH (09:35)
--- NOTE | 2018-12-19 11:29 | RAD ---
Date of service: 12/19/2018 HISTORY: r/o aspiration PNA COMPARISON: At portable chest 12/18/2018. FINDINGS: LUNGS: No active pulmonary disease. PLEURA: No significant pleural effusion identified, no pneumothorax apparent. CARDIOVASCULAR: No aortic atherosclerotic calcification present. Normal cardiac size. No pulmonary vascular congestion. OSSEOUS STRUCTURES: No significant abnormalities. VISUALIZED UPPER ABDOMEN: Normal. OTHER FINDINGS: None. IMPRESSION: No interval acute cardiopulmonary disease appreciated.
[2018-12-19] MEDS: guaiFENesin 600 mg ER Tab PO PRN (12:40)
--- NOTE | 2018-12-19 12:59 | CP.CCUPN ---
CCU Subjective - Physician Review Subjective (Free Text): PGY-[address] ICU progress note for Dr Owen Patient is seen and examined at bedside. Patient is alert and oriented at time of encounter, patient states feeling "so-so" and complains of coughing with mild shortness of breath. No acute event overnight, Patient has no other complaints at this time. Patient later on noticed to have mild tremors, does not report nausea, vomiting, or diaphoresis. Patient on CIWA protocol Critical Care Time Spent (in minutes): 35 CCU Objective - Vital Signs / Intake & Output Vital Signs (Last 4 hours): Vital Signs Temp Pulse Resp BP Pulse Ox 12/19/18 12:20 98 H 25 H 77 L 12/19/18 12:10 96 H 15 100 12/19/18 12:00 98.2 F 105 H 25 H 12/19/18 11:57 101 H 15 115/71 12/19/18 11:50 93 H 23 83 L 12/19/18 11:40 94 H 15 76 L 12/19/18 11:30 96 H 14 82 L 12/19/18 11:26 99 H 22 107/65 78 L 12/19/18 11:20 96 H 13 73 L 12/19/18 11:10 111 H 17 78 L 12/19/18 11:00 93 H 20 100 12/19/18 10:56 93 H 19 107/69 100 12/19/18 10:50 100 H 18 96 12/19/18 10:40 107 H 22 12/19/18 10:30 93 H 17 100 12/19/18 10:26 93 H 18 110/61 100 12/19/18 10:20 104 H 18 82 L 12/19/18 10:10 98 H 20 100 12/19/18 10:00 96 H 19 100 12/19/18 09:50 97 H 18 100 12/19/18 09:40 101 H 21 84 L 12/19/18 09:30 95 H 21 100 12/19/18 09:27 94 H 20 102/60 100 12/19/18 09:26 95 H 21 100 12/19/18 09:20 93 H 19 100 12/19/18 09:10 101 H 25 H 12/19/18 09:00 94 H 16 94 L Intake and Output (Last 8hrs): Intake & Output 12/18/18 12/19/18 12/19/18 22:59 06:59 14:59 Intake Total 1300 3343.1 798.5 Output Total 0 3300 1200 Balance 1300 43.1 -401.5 Weight 160 lb 138 lb 10.732 oz Intake: IV 61.3 118 Intake, IV Amount 1300 3101.8 680.5 Left Wrist 1050 2042.5 80.5 Right Forearm 9.3 Right Wrist 250 1050 600 Oral 180 Output: Urine 3300 1200 Condom 3300 1000 Urine, Voided 200 Stool 0 0 Emesis 0 0 Other: Voiding Method Incontinent # Voids Condom 1 1 - Physical Exam Head: Positive for: Atraumatic, Normocephalic Pupils: Positive for: PERRL Extroacular Muscles: Positive for: EOMI Conjunctiva: Positive for: Normal Mouth: Positive for: Moist Mucous Membranes Neck: Positive for: Normal Range of Motion Respiratory/Chest: Positive for: Clear to Auscultation, Decreased Breath Sounds Cardiovascular: Positive for: Regular Rate and Rhythm, Normal S1, S2 Abdomen: Positive for: Normal Bowel Sounds. Negative for: Tenderness, Distention Upper Extremity: Positive for: Normal Inspection. Negative for: Edema Lower Extremity: Positive for: Normal Inspection. Negative for: Edema Neurological: Positive for: CN II-XII Intact, Speech Normal Skin: Positive for: Warm, Dry, Normal Color Psychiatric: Positive for: Alert, Oriented x 3, Normal Insight, Normal Concentration - Medications Active Medications: Active Medications Generic Name Dose Route Start Last Admin Trade Name Freq PRN Reason Stop Dose Admin Chlordiazepoxide 75 mg 12/19/18 06:00 12/19/18 06:53 Librium PO 75 mg Q8 FERNANDA Administration Guaifenesin 600 mg 12/19/18 12:12 12/19/18 12:40 Mucinex La PO 600 mg BID PRN Administration Cough Heparin Sodium (Porcine) 5,000 units 12/18/18 22:00 12/19/18 09:35 Heparin SC 5,000 units Q12 FERNANDA Administration Folic Acid 1 mg/ Thiamine HCl 1,011.2 mls @ 150 mls/hr 12/18/18 16:45 12/18/18 16:58 100 mg/ Multivitamins/Vitamin IV 150 mls/hr C 10 ml/ Dextrose Q24H FERNANDA Administration Multivitamins 1 tab 12/19/18 10:00 12/19/18 09:35 Hexavitamin PO 1 tab DAILY FERNANDA Administration Thiamine HCl 100 mg 12/19/18 10:00 12/19/18 09:35 Vitamin B1 Tab PO 100 mg DAILY FERNANDA Administration - Patient Studies Lab Studies: Lab Studies 12/19/18 12/19/18 12/18/18 Range/Units 06:38 06:38 18:30 WBC 6.3 (4.8-10.8) K/uL RBC 3.47 L (4.40-5.90) Mil/uL Hgb 9.6 L (12.0-18.0) g/dL Hct 29.6 L (35.0-51.0) % MCV 85.3 (80.0-94.0) fL MCH 27.6 (27.0-31.0) pg MCHC 32.4 L (33.0-37.0) g/dL RDW 20.8 H (11.5-14.5) % Plt Count 280 (130-400) K/uL MPV 7.3 (7.2-11.7) fL Neut % (Auto) 72.1 (50.0-75.0) % Lymph % (Auto) 20.5 (20.0-40.0) % [place] % (Auto) 6.1 (0.0-10.0) % Eos % (Auto) 0.9 (0.0-4.0) % Baso % (Auto) 0.4 (0.0-2.0) % Neut # (Auto) 4.5 (1.8-7.0) K/uL Lymph # (Auto) 1.3 (1.0-4.3) K/uL [place] # (Auto) 0.4 (0.0-0.8) K/uL Eos # (Auto) 0.1 (0.0-0.7) K/uL Baso # (Auto) 0.0 (0.0-0.2) K/uL PT (9.7-12.2) SECONDS INR APTT (21-34) SECONDS pO2 (30-55) mm/Hg VBG pH (7.32-7.43) VBG pCO2 (40-60) mmHg VBG HCO3 mmol/L VBG Total CO2 (22-28) mmol/L VBG O2 Sat (Calc) (40-65) % VBG Base Excess (0.0-2.0) mmol/L VBG Potassium (3.6-5.2) mmol/L Glucose (75-110) mg/dl Lactate (0.7-2.1) mmol/L Crit Value Called To Crit Value Called By Crit Value Read Back Blood Gas Notified Time Sodium 141 (132-148) mmol/L Potassium 4.5 (3.6-5.2) mmol/L Chloride 110 H (98-107) mmol/L Carbon Dioxide 26 (22-30) mmol/L Anion Gap 10 (10-20) BUN 11 (9-20) mg/dL Creatinine 0.6 L (0.8-1.5) mg/dL Est GFR ( Amer) > 60 Est GFR (Non-Af Amer) > 60 POC Glucose (mg/dL) (65-110) mg/dL Random Glucose 83 (75-110) mg/dL Calcium 7.2 L (8.6-10.4) mg/dl Phosphorus 4.4 (2.5-4.5) mg/dL Magnesium 2.1 (1.6-2.3) mg/dL Total Bilirubin 0.2 (0.2-1.3) mg/dL AST 21 (17-59) U/L ALT 25 (21-72) U/L Alkaline Phosphatase 58 (38-126) U/L Ammonia (9-33) umol/L Troponin I (0.00-0.120) ng/mL NT-Pro-B Natriuret Pep (0-900) pg/mL Total Protein 5.2 L (6.3-8.3) g/dL Albumin 3.0 L (3.5-5.0) g/dL Globulin 2.2 (2.2-3.9) gm/dL Albumin/Globulin Ratio 1.3 (1.0-2.1) Lipase (23-300) U/L TSH 3rd Generation (0.46-4.68) mIU/L Venous Blood Potassium (3.6-5.2) mmol/L Urine Color (YELLOW) Urine Clarity (Clear) Urine pH (5.0-8.0) Ur Specific [place] (1.003-1.030) Urine Protein (NEGATIVE) mg/dL Urine Glucose (UA) (Normal) mg/dL Urine Ketones (NEGATIVE) mg/dL Urine Blood (NEGATIVE) Urine Nitrate (NEGATIVE) Urine Bilirubin (NEGATIVE) Urine Urobilinogen (0.2-1.0) mg/dL Ur Leukocyte Esterase (Negative) James/uL Urine WBC (Auto) (0-5) /hpf Urine RBC (Auto) (0-3) /hpf Salicylates < 1.0 mg/dL 1 Urine Opiates Screen (NEGATIVE) Urine Methadone Screen (NEGATIVE) Acetaminophen < 10.0 L (10.0-30.0) ug/mL Ur Barbiturates Screen (NEGATIVE) Ur Phencyclidine Scrn (NEGATIVE) Ur Amphetamines Screen (NEGATIVE) U Benzodiazepines Scrn (NEGATIVE) U Oth Cocaine Metabols (NEGATIVE) U Cannabinoids Screen (NEGATIVE) Alcohol, Quantitative (0-10) mg/dl 12/18/18 12/18/18 12/18/18 Range/Units 18:23 18:15 16:10 WBC (4.8-10.8) K/uL RBC (4.40-5.90) Mil/uL Hgb (12.0-18.0) g/dL Hct (35.0-51.0) % MCV (80.0-94.0) fL MCH (27.0-31.0) pg MCHC (33.0-37.0) g/dL RDW (11.5-14.5) % Plt Count (130-400) K/uL MPV (7.2-11.7) fL Neut % (Auto) (50.0-75.0) % Lymph % (Auto) (20.0-40.0) % [place] % (Auto) (0.0-10.0) % Eos % (Auto) (0.0-4.0) % Baso % (Auto) (0.0-2.0) % Neut # (Auto) (1.8-7.0) K/uL Lymph # (Auto) (1.0-4.3) K/uL [place] # (Auto) (0.0-0.8) K/uL Eos # (Auto) (0.0-0.7) K/uL Baso # (Auto) (0.0-0.2) K/uL PT (9.7-12.2) SECONDS INR APTT (21-34) SECONDS pO2 66 H (30-55) mm/Hg VBG pH 7.22 L (7.32-7.43) VBG pCO2 67 H* (40-60) mmHg VBG HCO3 23.2 mmol/L VBG Total CO2 29.5 H (22-28) mmol/L VBG O2 Sat (Calc) 94.0 H (40-65) % VBG Base Excess -1.9 L (0.0-2.0) mmol/L VBG Potassium 3.8 (3.6-5.2) mmol/L Glucose 130 H (75-110) mg/dl Lactate 1.7 (0.7-2.1) mmol/L Crit Value Called To garry Ellis Crit Value Called By Jaydon fitzpatrick Crit Value Read Back Y Blood Gas Notified Time 1818 Sodium 138.0 (132-148) mmol/L Potassium (3.6-5.2) mmol/L Chloride 106.0 (98-107) mmol/L Carbon Dioxide (22-30) mmol/L Anion Gap (10-20) BUN (9-20) mg/dL Creatinine (0.8-1.5) mg/dL Est GFR ( Amer) Est GFR (Non-Af Amer) POC Glucose (mg/dL) (65-110) mg/dL Random Glucose (75-110) mg/dL Calcium (8.6-10.4) mg/dl Phosphorus (2.5-4.5) mg/dL Magnesium (1.6-2.3) mg/dL Total Bilirubin (0.2-1.3) mg/dL AST (17-59) U/L ALT (21-72) U/L Alkaline Phosphatase (38-126) U/L Ammonia 13 (9-33) umol/L Troponin I (0.00-0.120) ng/mL NT-Pro-B Natriuret Pep 172 (0-900) pg/mL Total Protein (6.3-8.3) g/dL Albumin (3.5-5.0) g/dL Globulin (2.2-3.9) gm/dL Albumin/Globulin Ratio (1.0-2.1) Lipase (23-300) U/L TSH 3rd Generation 1.95 (0.46-4.68) mIU/L Venous Blood Potassium 3.8 (3.6-5.2) mmol/L Urine Color (YELLOW) Urine Clarity (Clear) Urine pH (5.0-8.0) Ur Specific [place] (1.003-1.030) Urine Protein (NEGATIVE) mg/dL Urine Glucose (UA) (Normal) mg/dL Urine Ketones (NEGATIVE) mg/dL Urine Blood (NEGATIVE) Urine Nitrate (NEGATIVE) Urine Bilirubin (NEGATIVE) Urine Urobilinogen (0.2-1.0) mg/dL Ur Leukocyte Esterase (Negative) James/uL Urine WBC (Auto) (0-5) /hpf Urine RBC (Auto) (0-3) /hpf Salicylates mg/dL 1 Urine Opiates Screen (NEGATIVE) Urine Methadone Screen (NEGATIVE) Acetaminophen (10.0-30.0) ug/mL Ur Barbiturates Screen (NEGATIVE) Ur Phencyclidine Scrn (NEGATIVE) Ur Amphetamines Screen (NEGATIVE) U Benzodiazepines Scrn (NEGATIVE) U Oth Cocaine Metabols (NEGATIVE) U Cannabinoids Screen (NEGATIVE) Alcohol, Quantitative (0-10) mg/dl 12/18/18 12/18/18 12/18/18 Range/Units 16:10 16:00 15:52 WBC (4.8-10.8) K/uL RBC (4.40-5.90) Mil/uL Hgb (12.0-18.0) g/dL Hct (35.0-51.0) % MCV (80.0-94.0) fL MCH (27.0-31.0) pg MCHC (33.0-37.0) g/dL RDW (11.5-14.5) % Plt Count (130-400) K/uL MPV (7.2-11.7) fL Neut % (Auto) (50.0-75.0) % Lymph % (Auto) (20.0-40.0) % [place] % (Auto) (0.0-10.0) % Eos % (Auto) (0.0-4.0) % Baso % (Auto) (0.0-2.0) % Neut # (Auto) (1.8-7.0) K/uL Lymph # (Auto) (1.0-4.3) K/uL [place] # (Auto) (0.0-0.8) K/uL Eos # (Auto) (0.0-0.7) K/uL Baso # (Auto) (0.0-0.2) K/uL PT 10.9 (9.7-12.2) SECONDS INR 1.0 APTT 33 (21-34) SECONDS pO2 (30-55) mm/Hg VBG pH (7.32-7.43) VBG pCO2 (40-60) mmHg VBG HCO3 mmol/L VBG Total CO2 (22-28) mmol/L VBG O2 Sat (Calc) (40-65) % VBG Base Excess (0.0-2.0) mmol/L VBG Potassium (3.6-5.2) mmol/L Glucose (75-110) mg/dl Lactate (0.7-2.1) mmol/L Crit Value Called To Crit Value Called By Crit Value Read Back Blood Gas Notified Time Sodium (132-148) mmol/L Potassium (3.6-5.2) mmol/L Chloride (98-107) mmol/L Carbon Dioxide (22-30) mmol/L Anion Gap (10-20) BUN (9-20) mg/dL Creatinine (0.8-1.5) mg/dL Est GFR ( Amer) Est GFR (Non-Af Amer) POC Glucose (mg/dL) (65-110) mg/dL Random Glucose (75-110) mg/dL Calcium (8.6-10.4) mg/dl Phosphorus (2.5-4.5) mg/dL Magnesium (1.6-2.3) mg/dL Total Bilirubin (0.2-1.3) mg/dL AST (17-59) U/L ALT (21-72) U/L Alkaline Phosphatase (38-126) U/L Ammonia (9-33) umol/L Troponin I < 0.0120 (0.00-0.120) ng/mL NT-Pro-B Natriuret Pep (0-900) pg/mL Total Protein (6.3-8.3) g/dL Albumin (3.5-5.0) g/dL Globulin (2.2-3.9) gm/dL Albumin/Globulin Ratio (1.0-2.1) Lipase 56 (23-300) U/L TSH 3rd Generation (0.46-4.68) mIU/L Venous Blood Potassium (3.6-5.2) mmol/L Urine Color Yellow (YELLOW) Urine Clarity Clear (Clear) Urine pH 6.0 (5.0-8.0) Ur Specific [place] 1.010 (1.003-1.030) Urine Protein Negative (NEGATIVE) mg/dL Urine Glucose (UA) Normal (Normal) mg/dL Urine Ketones Negative (NEGATIVE) mg/dL Urine Blood Negative (NEGATIVE) Urine Nitrate Negative (NEGATIVE) Urine Bilirubin Negative (NEGATIVE) Urine Urobilinogen Normal (0.2-1.0) mg/dL Ur Leukocyte Esterase Neg (Negative) James/uL Urine WBC (Auto) < 1 (0-5) /hpf Urine RBC (Auto) 1 (0-3) /hpf Salicylates mg/dL 1 Urine Opiates Screen (NEGATIVE) Urine Methadone Screen (NEGATIVE) Acetaminophen (10.0-30.0) ug/mL Ur Barbiturates Screen (NEGATIVE) Ur Phencyclidine Scrn (NEGATIVE) Ur Amphetamines Screen (NEGATIVE) U Benzodiazepines Scrn (NEGATIVE) U Oth Cocaine Metabols (NEGATIVE) U Cannabinoids Screen (NEGATIVE) Alcohol, Quantitative (0-10) mg/dl 12/18/18 12/18/18 12/18/18 Range/Units 15:47 15:47 15:47 WBC 10.6 (4.8-10.8) K/uL RBC 3.41 L (4.40-5.90) Mil/uL Hgb 9.3 L D (12.0-18.0) g/dL Hct 29.2 L (35.0-51.0) % MCV 85.6 D (80.0-94.0) fL MCH 27.4 (27.0-31.0) pg MCHC 32.0 L (33.0-37.0) g/dL RDW 20.3 H (11.5-14.5) % Plt Count 289 (130-400) K/uL MPV 7.7 (7.2-11.7) fL Neut % (Auto) 73.0 (50.0-75.0) % Lymph % (Auto) 20.4 (20.0-40.0) % [place] % (Auto) 5.0 (0.0-10.0) % Eos % (Auto) 0.6 (0.0-4.0) % Baso % (Auto) 1.0 (0.0-2.0) % Neut # (Auto) 7.7 H (1.8-7.0) K/uL Lymph # (Auto) 2.2 (1.0-4.3) K/uL [place] # (Auto) 0.5 (0.0-0.8) K/uL Eos # (Auto) 0.1 (0.0-0.7) K/uL Baso # (Auto) 0.1 (0.0-0.2) K/uL PT (9.7-12.2) SECONDS INR APTT (21-34) SECONDS pO2 (30-55) mm/Hg VBG pH (7.32-7.43) VBG pCO2 (40-60) mmHg VBG HCO3 mmol/L VBG Total CO2 (22-28) mmol/L VBG O2 Sat (Calc) (40-65) % VBG Base Excess (0.0-2.0) mmol/L VBG Potassium (3.6-5.2) mmol/L Glucose (75-110) mg/dl Lactate (0.7-2.1) mmol/L Crit Value Called To Crit Value Called By Crit Value Read Back Blood Gas Notified Time Sodium 135 (132-148) mmol/L Potassium 4.1 (3.6-5.2) mmol/L Chloride 99 (98-107) mmol/L Carbon Dioxide 27 (22-30) mmol/L Anion Gap 14 (10-20) BUN 16 (9-20) mg/dL Creatinine 0.9 (0.8-1.5) mg/dL Est GFR ( Amer) > 60 Est GFR (Non-Af Amer) > 60 POC Glucose (mg/dL) (65-110) mg/dL Random Glucose 86 (75-110) mg/dL Calcium 7.8 L (8.6-10.4) mg/dl Phosphorus 3.2 (2.5-4.5) mg/dL Magnesium 1.9 (1.6-2.3) mg/dL Total Bilirubin 0.1 L (0.2-1.3) mg/dL AST 21 (17-59) U/L ALT 21 D (21-72) U/L Alkaline Phosphatase 54 (38-126) U/L Ammonia (9-33) umol/L Troponin I (0.00-0.120) ng/mL NT-Pro-B Natriuret Pep (0-900) pg/mL Total Protein 5.5 L (6.3-8.3) g/dL Albumin 3.4 L (3.5-5.0) g/dL Globulin 2.1 L (2.2-3.9) gm/dL Albumin/Globulin Ratio 1.6 (1.0-2.1) Lipase (23-300) U/L TSH 3rd Generation (0.46-4.68) mIU/L Venous Blood Potassium (3.6-5.2) mmol/L Urine Color (YELLOW) Urine Clarity (Clear) Urine pH (5.0-8.0) Ur Specific [place] (1.003-1.030) Urine Protein (NEGATIVE) mg/dL Urine Glucose (UA) (Normal) mg/dL Urine Ketones (NEGATIVE) mg/dL Urine Blood (NEGATIVE) Urine Nitrate (NEGATIVE) Urine Bilirubin (NEGATIVE) Urine Urobilinogen (0.2-1.0) mg/dL Ur Leukocyte Esterase (Negative) James/uL Urine WBC (Auto) (0-5) /hpf Urine RBC (Auto) (0-3) /hpf Salicylates mg/dL 1 Urine Opiates Screen Negative (NEGATIVE) Urine Methadone Screen Negative (NEGATIVE) Acetaminophen (10.0-30.0) ug/mL Ur Barbiturates Screen Negative (NEGATIVE) Ur Phencyclidine Scrn Negative (NEGATIVE) Ur Amphetamines Screen Negative (NEGATIVE) U Benzodiazepines Scrn Negative (NEGATIVE) U Oth Cocaine Metabols Negative (NEGATIVE) U Cannabinoids Screen Negative (NEGATIVE) Alcohol, Quantitative 318 H (0-10) mg/dl 12/18/18 Range/Units 15:29 WBC (4.8-10.8) K/uL RBC (4.40-5.90) Mil/uL Hgb (12.0-18.0) g/dL Hct (35.0-51.0) % MCV (80.0-94.0) fL MCH (27.0-31.0) pg MCHC (33.0-37.0) g/dL RDW (11.5-14.5) % Plt Count (130-400) K/uL MPV (7.2-11.7) fL Neut % (Auto) (50.0-75.0) % Lymph % (Auto) (20.0-40.0) % [place] % (Auto) (0.0-10.0) % Eos % (Auto) (0.0-4.0) % Baso % (Auto) (0.0-2.0) % Neut # (Auto) (1.8-7.0) K/uL Lymph # (Auto) (1.0-4.3) K/uL [place] # (Auto) (0.0-0.8) K/uL Eos # (Auto) (0.0-0.7) K/uL Baso # (Auto) (0.0-0.2) K/uL PT (9.7-12.2) SECONDS INR APTT (21-34) SECONDS pO2 (30-55) mm/Hg VBG pH (7.32-7.43) VBG pCO2 (40-60) mmHg VBG HCO3 mmol/L VBG Total CO2 (22-28) mmol/L VBG O2 Sat (Calc) (40-65) % VBG Base Excess (0.0-2.0) mmol/L VBG Potassium (3.6-5.2) mmol/L Glucose (75-110) mg/dl Lactate (0.7-2.1) mmol/L Crit Value Called To Crit Value Called By Crit Value Read Back Blood Gas Notified Time Sodium (132-148) mmol/L Potassium (3.6-5.2) mmol/L Chloride (98-107) mmol/L Carbon Dioxide (22-30) mmol/L Anion Gap (10-20) BUN (9-20) mg/dL Creatinine (0.8-1.5) mg/dL Est GFR ( Amer) Est GFR (Non-Af Amer) POC Glucose (mg/dL) 230 H (65-110) mg/dL Random Glucose (75-110) mg/dL Calcium (8.6-10.4) mg/dl Phosphorus (2.5-4.5) mg/dL Magnesium (1.6-2.3) mg/dL Total Bilirubin (0.2-1.3) mg/dL AST (17-59) U/L ALT (21-72) U/L Alkaline Phosphatase (38-126) U/L Ammonia (9-33) umol/L Troponin I (0.00-0.120) ng/mL NT-Pro-B Natriuret Pep (0-900) pg/mL Total Protein (6.3-8.3) g/dL Albumin (3.5-5.0) g/dL Globulin (2.2-3.9) gm/dL Albumin/Globulin Ratio (1.0-2.1) Lipase (23-300) U/L TSH 3rd Generation (0.46-4.68) mIU/L Venous Blood Potassium (3.6-5.2) mmol/L Urine Color (YELLOW) Urine Clarity (Clear) Urine pH (5.0-8.0) Ur Specific [place] (1.003-1.030) Urine Protein (NEGATIVE) mg/dL Urine Glucose (UA) (Normal) mg/dL Urine Ketones (NEGATIVE) mg/dL Urine Blood (NEGATIVE) Urine Nitrate (NEGATIVE) Urine Bilirubin (NEGATIVE) Urine Urobilinogen (0.2-1.0) mg/dL Ur Leukocyte Esterase (Negative) James/uL Urine WBC (Auto) (0-5) /hpf Urine RBC (Auto) (0-3) /hpf Salicylates mg/dL 1 Urine Opiates Screen (NEGATIVE) Urine Methadone Screen (NEGATIVE) Acetaminophen (10.0-30.0) ug/mL Ur Barbiturates Screen (NEGATIVE) Ur Phencyclidine Scrn (NEGATIVE) Ur Amphetamines Screen (NEGATIVE) U Benzodiazepines Scrn (NEGATIVE) U Oth Cocaine Metabols (NEGATIVE) U Cannabinoids Screen (NEGATIVE) Alcohol, Quantitative (0-10) mg/dl Laboratory Results - last 24 hr 12/18/18 12/18/18 12/18/18 15:29 15:47 15:47 WBC 10.6 RBC 3.41 L Hgb 9.3 L D Hct 29.2 L MCV 85.6 D MCH 27.4 MCHC 32.0 L RDW 20.3 H Plt Count 289 MPV 7.7 Neut % (Auto) 73.0 Lymph % (Auto) 20.4 [place] % (Auto) 5.0 Eos % (Auto) 0.6 Baso % (Auto) 1.0 Neut # (Auto) 7.7 H Lymph # (Auto) 2.2 [place] # (Auto) 0.5 Eos # (Auto) 0.1 Baso # (Auto) 0.1 PT INR APTT pO2 VBG pH VBG pCO2 VBG HCO3 VBG Total CO2 VBG O2 Sat (Calc) VBG Base Excess VBG Potassium Glucose Lactate Crit Value Called To Crit Value Called By Crit Value Read Back Blood Gas Notified Time Sodium 135 Potassium 4.1 Chloride 99 Carbon Dioxide 27 Anion Gap 14 BUN 16 Creatinine 0.9 Est GFR ( Amer) > 60 Est GFR (Non-Af Amer) > 60 POC Glucose (mg/dL) 230 H Random Glucose 86 Calcium 7.8 L Phosphorus 3.2 Magnesium 1.9 Total Bilirubin 0.1 L AST 21 ALT 21 D Alkaline Phosphatase 54 Ammonia Troponin I NT-Pro-B Natriuret Pep Total Protein 5.5 L Albumin 3.4 L Globulin 2.1 L Albumin/Globulin Ratio 1.6 Lipase TSH 3rd Generation Venous Blood Potassium Urine Color Urine Clarity Urine pH Ur Specific [place] Urine Protein Urine Glucose (UA) Urine Ketones Urine Blood Urine Nitrate Urine Bilirubin Urine Urobilinogen Ur Leukocyte Esterase Urine WBC (Auto) Urine RBC (Auto) Salicylates Urine Opiates Screen Urine Methadone Screen Acetaminophen Ur Barbiturates Screen Ur Phencyclidine Scrn Ur Amphetamines Screen U Benzodiazepines Scrn U Oth Cocaine Metabols U Cannabinoids Screen Alcohol, Quantitative 318 H 12/18/18 12/18/18 12/18/18 15:47 15:52 16:00 WBC RBC Hgb Hct MCV MCH MCHC RDW Plt Count MPV Neut % (Auto) Lymph % (Auto) [place] % (Auto) Eos % (Auto) Baso % (Auto) Neut # (Auto) Lymph # (Auto) [place] # (Auto) Eos # (Auto) Baso # (Auto) PT 10.9 INR 1.0 APTT 33 pO2 VBG pH VBG pCO2 VBG HCO3 VBG Total CO2 VBG O2 Sat (Calc) VBG Base Excess VBG Potassium Glucose Lactate Crit Value Called To Crit Value Called By Crit Value Read Back Blood Gas Notified Time Sodium Potassium Chloride Carbon Dioxide Anion Gap BUN Creatinine Est GFR ( Amer) Est GFR (Non-Af Amer) POC Glucose (mg/dL) Random Glucose Calcium Phosphorus Magnesium Total Bilirubin AST ALT Alkaline Phosphatase Ammonia Troponin I NT-Pro-B Natriuret Pep Total Protein Albumin Globulin Albumin/Globulin Ratio Lipase TSH 3rd Generation Venous Blood Potassium Urine Color Yellow Urine Clarity Clear Urine pH 6.0 Ur Specific [place] 1.010 Urine Protein Negative Urine Glucose (UA) Normal Urine Ketones Negative Urine Blood Negative Urine Nitrate Negative Urine Bilirubin Negative Urine Urobilinogen Normal Ur Leukocyte Esterase Neg Urine WBC (Auto) < 1 Urine RBC (Auto) 1 Salicylates Urine Opiates Screen Negative Urine Methadone Screen Negative Acetaminophen Ur Barbiturates Screen Negative Ur Phencyclidine Scrn Negative Ur Amphetamines Screen Negative U Benzodiazepines Scrn Negative U Oth Cocaine Metabols Negative U Cannabinoids Screen Negative Alcohol, Quantitative 12/18/18 12/18/18 12/18/18 16:10 16:10 18:15 WBC RBC Hgb Hct MCV MCH MCHC RDW Plt Count MPV Neut % (Auto) Lymph % (Auto) [place] % (Auto) Eos % (Auto) Baso % (Auto) Neut # (Auto) Lymph # (Auto) [place] # (Auto) Eos # (Auto) Baso # (Auto) PT INR APTT pO2 66 H VBG pH 7.22 L VBG pCO2 67 H* VBG HCO3 23.2 VBG Total CO2 29.5 H VBG O2 Sat (Calc) 94.0 H VBG Base Excess -1.9 L VBG Potassium 3.8 Glucose 130 H Lactate 1.7 Crit Value Called To garry Ellis Crit Value Called By Jaydon fitzpatrick Crit Value Read Back Y Blood Gas Notified Time 1818 Sodium 138.0 Potassium Chloride 106.0 Carbon Dioxide Anion Gap BUN Creatinine Est GFR ( Amer) Est GFR (Non-Af Amer) POC Glucose (mg/dL) Random Glucose Calcium Phosphorus Magnesium Total Bilirubin AST ALT Alkaline Phosphatase Ammonia 13 Troponin I < 0.0120 NT-Pro-B Natriuret Pep Total Protein Albumin Globulin Albumin/Globulin Ratio Lipase 56 TSH 3rd Generation Venous Blood Potassium 3.8 Urine Color Urine Clarity Urine pH Ur Specific [place] Urine Protein Urine Glucose (UA) Urine Ketones Urine Blood Urine Nitrate Urine Bilirubin Urine Urobilinogen Ur Leukocyte Esterase Urine WBC (Auto) Urine RBC (Auto) Salicylates Urine Opiates Screen Urine Methadone Screen Acetaminophen Ur Barbiturates Screen Ur Phencyclidine Scrn Ur Amphetamines Screen U Benzodiazepines Scrn U Oth Cocaine Metabols U Cannabinoids Screen Alcohol, Quantitative 12/18/18 12/18/18 12/19/18 18:23 18:30 06:38 WBC 6.3 RBC 3.47 L Hgb 9.6 L Hct 29.6 L MCV 85.3 MCH 27.6 MCHC 32.4 L RDW 20.8 H Plt Count 280 MPV 7.3 Neut % (Auto) 72.1 Lymph % (Auto) 20.5 [place] % (Auto) 6.1 Eos % (Auto) 0.9 Baso % (Auto) 0.4 Neut # (Auto) 4.5 Lymph # (Auto) 1.3 [place] # (Auto) 0.4 Eos # (Auto) 0.1 Baso # (Auto) 0.0 PT INR APTT pO2 VBG pH VBG pCO2 VBG HCO3 VBG Total CO2 VBG O2 Sat (Calc) VBG Base Excess VBG Potassium Glucose Lactate Crit Value Called To Crit Value Called By Crit Value Read Back Blood Gas Notified Time Sodium Potassium Chloride Carbon Dioxide Anion Gap BUN Creatinine Est GFR ( Amer) Est GFR (Non-Af Amer) POC Glucose (mg/dL) Random Glucose Calcium Phosphorus Magnesium Total Bilirubin AST ALT Alkaline Phosphatase Ammonia Troponin I NT-Pro-B Natriuret Pep 172 Total Protein Albumin Globulin Albumin/Globulin Ratio Lipase TSH 3rd Generation 1.95 Venous Blood Potassium Urine Color Urine Clarity Urine pH Ur Specific [place] Urine Protein Urine Glucose (UA) Urine Ketones Urine Blood Urine Nitrate Urine Bilirubin Urine Urobilinogen Ur Leukocyte Esterase Urine WBC (Auto) Urine RBC (Auto) Salicylates < 1.0 Urine Opiates Screen Urine Methadone Screen Acetaminophen < 10.0 L Ur Barbiturates Screen Ur Phencyclidine Scrn Ur Amphetamines Screen U Benzodiazepines Scrn U Oth Cocaine Metabols U Cannabinoids Screen Alcohol, Quantitative 12/19/18 06:38 WBC RBC Hgb Hct MCV MCH MCHC RDW Plt Count MPV Neut % (Auto) Lymph % (Auto) [place] % (Auto) Eos % (Auto) Baso % (Auto) Neut # (Auto) Lymph # (Auto) [place] # (Auto) Eos # (Auto) Baso # (Auto) PT INR APTT pO2 VBG pH VBG pCO2 VBG HCO3 VBG Total CO2 VBG O2 Sat (Calc) VBG Base Excess VBG Potassium Glucose Lactate Crit Value Called To Crit Value Called By Crit Value Read Back Blood Gas Notified Time Sodium 141 Potassium 4.5 Chloride 110 H Carbon Dioxide 26 Anion Gap 10 BUN 11 Creatinine 0.6 L Est GFR ( Amer) > 60 Est GFR (Non-Af Amer) > 60 POC Glucose (mg/dL) Random Glucose 83 Calcium 7.2 L Phosphorus 4.4 Magnesium 2.1 Total Bilirubin 0.2 AST 21 ALT 25 Alkaline Phosphatase 58 Ammonia Troponin I NT-Pro-B Natriuret Pep Total Protein 5.2 L Albumin 3.0 L Globulin 2.2 Albumin/Globulin Ratio 1.3 Lipase TSH 3rd Generation Venous Blood Potassium Urine Color Urine Clarity Urine pH Ur Specific [place] Urine Protein Urine Glucose (UA) Urine Ketones Urine Blood Urine Nitrate Urine Bilirubin Urine Urobilinogen Ur Leukocyte Esterase Urine WBC (Auto) Urine RBC (Auto) Salicylates Urine Opiates Screen Urine Methadone Screen Acetaminophen Ur Barbiturates Screen Ur Phencyclidine Scrn Ur Amphetamines Screen U Benzodiazepines Scrn U Oth Cocaine Metabols U Cannabinoids Screen Alcohol, Quantitative Radiology Impressions: Radiology Impressions Chest X-Ray 12/18/18 15:50 IMPRESSION: No active disease. Head CT 12/18/18 15:50 IMPRESSION: Prominent bilateral basal ganglia lacunar infarcts re-identified. Chronic microvascular ischemic change. Generalized atrophy. Small fluid within the right mastoid air cells. Correlate clinically for mastoiditis. Partial opacification/mucosal thickening of the ethmoid air cells. Correlate clinically for sinusitis. Additional findings as above. Chest X-Ray 12/19/18 10:07 IMPRESSION: No interval acute cardiopulmonary disease appreciated. EKG/Cardiology Studies: Cardiology / EKG Studies 12/18/18 15:44 EKG [ELECTROCARDIOGRAM] Stat Comment: Mode Of Transportation: BED Reason For Exam: cp Critical Care Progress Note - Nutrition Nutrition: Nutrition Category Date Time Status Heart Healthy Diet [DIET] Diets 12/19/18 Lunch Active Assessment/Plan - Assessment and Plan (Free Text) Plan: Patient is 58 year old make with known alcohol use disorder came to ED for alcohol intoxication, not responding, admitted to ICU for monitoring patient aspiration precautions, on CIWA protocol for alcohol withdrawal, hypotensive earlier today, d/c precedex and dopamine, normotensive at this time. more awake and oriented this am. Neuro alcohol 318 more awake alert oriented x3 CIWA protocol with Librium Q8H Neuro checks d/c precedex and dopamine Pulm continue to Monitor end tidal CO2 aspiration precautions AB.22, CO2 67, HCO3 23.2 mucinex PRN for pain O2 via nasal canula Cardio hypotensive earlier today Normotensive in the pm Monitor vitals fluids - banana bag GI HHD, low fat low cholesterol Nephro Banana bag PPX DVT: Heparin 5000 SC Q12H SCDS GI: protonix Plan discussed with Dr Brayden Puente, PGY-1 - Date & Time Date: 12/19/18 Time: 10:00
--- NOTE | 2018-12-19 13:54 | CP.PCM.HP ---
History of Present Illness - History of Present Illness History of Present Illness: 58 year old male with pmhx of Anxiety, asthma, bronchitis, COPD, depression, HTN, was found unresponsive, brought by EMS who states was hypotensive, and given fluids on site, as per ED physician, patient was awake at time of arrival, but nonverbal. Patient has elevated alcohol levels and hypotensive in the ED. patient was responding to painful stimuli. Patient's blood pressure was in the 70s systolic. Patient was admitted to ICU. After IV fluids patient blood pressure st 102 systolic On chart review it was deteed the patient was discharged from the psych unit on the day of admission. After the discharge patient went and drank alcohol, alcohol level was over 200 and return back to the emergency room. Patient has been multiple for similar complaints and also COPD with exacerbation. Patient is noncompliant to medication and medical followup. Present on Admission - Present on Admission Any Indicators Present on Admission: No Review of Systems - Review of Systems All systems: reviewed and no additional remarkable complaints except (patient is lethargic and does not respond to ques) Past Patient History - Infectious Disease Hx of Infectious Diseases: None - Past Medical History & Family History Past Medical History?: Yes - Past Social History Smoking Status: Light Smoker < 10 Cigarettes Daily - CARDIAC Hx Hypertension: Yes - PULMONARY Hx Chronic Obstructive Pulmonary Disease (COPD): Yes - NEUROLOGICAL Hx Neurological Disorder: No Hx Alzheimer's Disease: No HX Cerebrovascular Accident: No Hx Dementia: No Hx Dizziness: No Hx Meningitis: No Hx Migraine: No Hx Multiple Sclerosis: No Hx Paralysis: No Hx Parkinson's Disease: No Hx Seizures: No Hx Syncope: No Hx Transient Ischemic Attacks (TIA): No Hx Vertigo: No Other/Comment: Decreased consciousness d/t ETOH intoxication - HEENT Hx HEENT Problems: No Hx Blind: No Hx Cataracts: No Hx Deafness: No Hx Difficulty Chewing: No Hx Epistaxis: No Hx Glaucoma: No Hx Macular Degeneration: No Hx Sinusitis: No - RENAL Hx Chronic Kidney Disease: No Hx Dialysis: No Hx Kidney Stones: No Hx Neurogenic Bladder: No Hx Pyelonephritis: No Hx Renal (Kidney) Cancer: No Hx Renal Failure: No - ENDOCRINE/METABOLIC Hx Endocrine Disorders: No Hx Adrenal Cancer: No Hx Diabetes Insipidus: No Hx Diabetes Mellitus Type 1: No Hx Diabetes Mellitus Type 2: No Hx Hyperthyroidism: No Hx Hypothyroidism: No Hx Systemic Lupus Erythematosus: No - HEMATOLOGICAL/ONCOLOGICAL Hx Blood Disorders: No Hx AIDS: No Hx Anemia: No Hx Blood Transfusions: No Hx Blood Transfusion Reaction: No Hx Bruising: No Hx Cancer: No Hx Chemotherapy: No Hx Cirrhosis: No Hx Gum Bleeding: No Hx Hemophilia: No Hx Hepatitis A: No Hx Hepatitis B: No Hx Hepatitis C: No Hx Human Immunodeficiency Virus (HIV): No Hx Leukemia: No Hx Metastesis: No Hx Shingles: No Hx Sickle Cell Disease: No Hx Unexplained Bleeding: No Hx von Willebrand's Disease: No - INTEGUMENTARY Hx Dermatological Problems: No Hx Basil Cell: No Hx Wu: No Hx Cellulitis: No Hx Eczema: No Hx Melanoma: No Hx Psoriasis: No Hx Squamous Cell: No - MUSCULOSKELETAL/RHEUMATOLOGICAL Hx Musculoskeletal Disorders: No Hx Arthritis: No Hx Back Pain: No Hx Degenerative Joint Disease: No Hx Falls: No Hx Fractures: No Hx Gout: No Hx Herniated Disk: No Hx Myasthenia Gravis: No Hx Osteoarthritis: No Hx Osteomyelitis: No Hx Osteoporosis: No Hx Rhabdomyolysis: No Hx Rheumatoid Arthritis: No Hx Spinal Stenosis: No Hx Unsteady Gait: No - GASTROINTESTINAL Hx Gastrointestinal Disorders: Yes Hx Bowel Surgery: No Hx Clostridium Difficile: No Hx Colitis: No Hx Colostomy: No Hx Constipation: No Hx Crohn's Disease: No Hx Diarrhea: No Hx Diverticulitis: No Hx Esophageal Varices: No Hx Fatty Liver Disease: No Hx Gall Bladder Disease: No Hx Gastritis: Yes Hx Gastroesophageal Reflux: No Hx Hemorrhoids: No Hx Ileostomy: No Hx Irritable Bowel: No Hx Liver Failure: No Hx Nausea: No Hx Pancreatitis: No HX Swallowing Problems: No Hx Ulcer: Yes Hx Vomiting: No - GENITOURINARY/GYNECOLOGICAL Hx Genitourinary Disorders: Yes Hx Bladder Cancer: No Hx Bladder Stone: No Hx Hematuria: No Hx Incontinence: Yes (D/T decrease LOC) Hx Prostate Cancer: No Hx Prostate Problems: No Hx Reproductive Disorders: No Hx Sexually Transmitted Disorders: No Hx Urinary Tract Infection: No - PSYCHIATRIC Hx Psychophysiologic Disorder: Yes Hx Anxiety: Yes Hx Bipolar Disorder: No Hx Depression: Yes Hx Emotional Abuse: No Hx Hallucinations: No Hx Panic Symptoms: No Hx Paranoia: No Hx Post Traumatic Stress Disorder: No Hx Psychosis: No Hx Physical Abuse: No Hx Schizophrenia: No Hx Sexual Abuse: No Hx Substance Use: Yes (ETOH abuse) - SURGICAL HISTORY Hx Surgeries: Yes Hx Abdominal Aortic Aneurysm Repair: No Hx Amputation: No Hx Angiogram: No Hx Angioplasty: No Hx Appendectomy: Yes Hx Arteriovenous Shunt: No Hx Bile Duct Stent: No Hx Breast Biopsy: No Hx Cataract Extraction: No Hx Cardiac Catheterization: No Hx Carotid Endarterectomy: No Hx Section: No Hx Cholecystectomy: No Hx Coronary Artery Bypass Graft: No Hx Coronary Stent: No Hx Dilation and Curettage: No Hx Eye Surgery: No Hx Femoral-Popliteal Bypass Graft: No Hx Gastric Bypass Surgery: No Hx Herniorrhaphy: No Hx Hysterectomy: No Hx Joint Replacement: No Hx Kidney Transplant: No Hx Liver Transplant: No Hx Mastectomy: No Hx Musculoskeletal Surgery: No Hx Open Heart Surgery: No Hx Open Reduction Internal Fixation: No Hx Orthopedic Surgery: No Hx Parathyroidectomy: No Hx Penile Implant: No Hx Pulmonary Surgery: No Hx Splenectomy: No Hx Thyroidectomy: No Hx Tonsillectomy: Yes Hx Tubal Ligation: No Hx Valve Replacement: No Hx Vascular Surgery: No Hx Vascular Access Device: No - ANESTHESIA Hx Anesthesia: Yes Hx Anesthesia Reactions: No Hx Malignant Hyperthermia: No Has any member of the family had a problem w/ anesthesia?: No Meds Allergies/Adverse Reactions: Allergies Allergy/AdvReac Type Severity Reaction Status Date / Time No Known Allergies Allergy Verified 12/18/18 15:42 Physical Exam - Constitutional Appears: Confused - Head Exam Head Exam: ATRAUMATIC - Eye Exam Eye Exam: EOMI, Normal appearance, PERRL - Respiratory Exam Respiratory Exam: Clear to Auscultation Bilateral, Rhonchi, NORMAL BREATHING PATTERN - Cardiovascular Exam Cardiovascular Exam: REGULAR RHYTHM - GI/Abdominal Exam GI & Abdominal Exam: Normal Bowel Sounds, Soft. absent: Tenderness - Extremities Exam Extremities exam: Negative for: calf tenderness - Neurological Exam Neurological exam: Abnormal Gait, Altered, Reflexes Normal Results - Vital Signs Recent Vital Signs: Last Vital Signs Temp 98.2 F 12/19/18 12:00 Pulse 98 H 12/19/18 12:20 Resp 25 H 12/19/18 12:20 BP 115/71 12/19/18 11:57 Pulse Ox 77 L 12/19/18 12:20 - Labs Result Diagrams: 12/19/18 06:38 12/19/18 06:38 Labs: Laboratory Results - last 24 hr 12/18/18 12/18/18 12/18/18 15:29 15:47 15:47 WBC 10.6 RBC 3.41 L Hgb 9.3 L D Hct 29.2 L MCV 85.6 D MCH 27.4 MCHC 32.0 L RDW 20.3 H Plt Count 289 MPV 7.7 Neut % (Auto) 73.0 Lymph % (Auto) 20.4 [place] % (Auto) 5.0 Eos % (Auto) 0.6 Baso % (Auto) 1.0 Neut # (Auto) 7.7 H Lymph # (Auto) 2.2 [place] # (Auto) 0.5 Eos # (Auto) 0.1 Baso # (Auto) 0.1 PT INR APTT pO2 VBG pH VBG pCO2 VBG HCO3 VBG Total CO2 VBG O2 Sat (Calc) VBG Base Excess VBG Potassium Glucose Lactate Crit Value Called To Crit Value Called By Crit Value Read Back Blood Gas Notified Time Sodium 135 Potassium 4.1 Chloride 99 Carbon Dioxide 27 Anion Gap 14 BUN 16 Creatinine 0.9 Est GFR ( Amer) > 60 Est GFR (Non-Af Amer) > 60 POC Glucose (mg/dL) 230 H Random Glucose 86 Calcium 7.8 L Phosphorus 3.2 Magnesium 1.9 Total Bilirubin 0.1 L AST 21 ALT 21 D Alkaline Phosphatase 54 Ammonia Troponin I NT-Pro-B Natriuret Pep Total Protein 5.5 L Albumin 3.4 L Globulin 2.1 L Albumin/Globulin Ratio 1.6 Lipase TSH 3rd Generation Venous Blood Potassium Urine Color Urine Clarity Urine pH Ur Specific [place] Urine Protein Urine Glucose (UA) Urine Ketones Urine Blood Urine Nitrate Urine Bilirubin Urine Urobilinogen Ur Leukocyte Esterase Urine WBC (Auto) Urine RBC (Auto) Salicylates Urine Opiates Screen Urine Methadone Screen Acetaminophen Ur Barbiturates Screen Ur Phencyclidine Scrn Ur Amphetamines Screen U Benzodiazepines Scrn U Oth Cocaine Metabols U Cannabinoids Screen Alcohol, Quantitative 318 H 12/18/18 12/18/18 12/18/18 15:47 15:52 16:00 WBC RBC Hgb Hct MCV MCH MCHC RDW Plt Count MPV Neut % (Auto) Lymph % (Auto) [place] % (Auto) Eos % (Auto) Baso % (Auto) Neut # (Auto) Lymph # (Auto) [place] # (Auto) Eos # (Auto) Baso # (Auto) PT 10.9 INR 1.0 APTT 33 pO2 VBG pH VBG pCO2 VBG HCO3 VBG Total CO2 VBG O2 Sat (Calc) VBG Base Excess VBG Potassium Glucose Lactate Crit Value Called To Crit Value Called By Crit Value Read Back Blood Gas Notified Time Sodium Potassium Chloride Carbon Dioxide Anion Gap BUN Creatinine Est GFR ( Amer) Est GFR (Non-Af Amer) POC Glucose (mg/dL) Random Glucose Calcium Phosphorus Magnesium Total Bilirubin AST ALT Alkaline Phosphatase Ammonia Troponin I NT-Pro-B Natriuret Pep Total Protein Albumin Globulin Albumin/Globulin Ratio Lipase TSH 3rd Generation Venous Blood Potassium Urine Color Yellow Urine Clarity Clear Urine pH 6.0 Ur Specific [place] 1.010 Urine Protein Negative Urine Glucose (UA) Normal Urine Ketones Negative Urine Blood Negative Urine Nitrate Negative Urine Bilirubin Negative Urine Urobilinogen Normal Ur Leukocyte Esterase Neg Urine WBC (Auto) < 1 Urine RBC (Auto) 1 Salicylates Urine Opiates Screen Negative Urine Methadone Screen Negative Acetaminophen Ur Barbiturates Screen Negative Ur Phencyclidine Scrn Negative Ur Amphetamines Screen Negative U Benzodiazepines Scrn Negative U Oth Cocaine Metabols Negative U Cannabinoids Screen Negative Alcohol, Quantitative 12/18/18 12/18/18 12/18/18 16:10 16:10 18:15 WBC RBC Hgb Hct MCV MCH MCHC RDW Plt Count MPV Neut % (Auto) Lymph % (Auto) [place] % (Auto) Eos % (Auto) Baso % (Auto) Neut # (Auto) Lymph # (Auto) [place] # (Auto) Eos # (Auto) Baso # (Auto) PT INR APTT pO2 66 H VBG pH 7.22 L VBG pCO2 67 H* VBG HCO3 23.2 VBG Total CO2 29.5 H VBG O2 Sat (Calc) 94.0 H VBG Base Excess -1.9 L VBG Potassium 3.8 Glucose 130 H Lactate 1.7 Crit Value Called To garry Ellis Crit Value Called By Jaydon fitzpatrick Crit Value Read Back Y Blood Gas Notified Time 181 Sodium 138.0 Potassium Chloride 106.0 Carbon Dioxide Anion Gap BUN Creatinine Est GFR ( Amer) Est GFR (Non-Af Amer) POC Glucose (mg/dL) Random Glucose Calcium Phosphorus Magnesium Total Bilirubin AST ALT Alkaline Phosphatase Ammonia 13 Troponin I < 0.0120 NT-Pro-B Natriuret Pep Total Protein Albumin Globulin Albumin/Globulin Ratio Lipase 56 TSH 3rd Generation Venous Blood Potassium 3.8 Urine Color Urine Clarity Urine pH Ur Specific [place] Urine Protein Urine Glucose (UA) Urine Ketones Urine Blood Urine Nitrate Urine Bilirubin Urine Urobilinogen Ur Leukocyte Esterase Urine WBC (Auto) Urine RBC (Auto) Salicylates Urine Opiates Screen Urine Methadone Screen Acetaminophen Ur Barbiturates Screen Ur Phencyclidine Scrn Ur Amphetamines Screen U Benzodiazepines Scrn U Oth Cocaine Metabols U Cannabinoids Screen Alcohol, Quantitative 12/18/18 12/18/18 12/19/18 18:23 18:30 06:38 WBC 6.3 RBC 3.47 L Hgb 9.6 L Hct 29.6 L MCV 85.3 MCH 27.6 MCHC 32.4 L RDW 20.8 H Plt Count 280 MPV 7.3 Neut % (Auto) 72.1 Lymph % (Auto) 20.5 [place] % (Auto) 6.1 Eos % (Auto) 0.9 Baso % (Auto) 0.4 Neut # (Auto) 4.5 Lymph # (Auto) 1.3 [place] # (Auto) 0.4 Eos # (Auto) 0.1 Baso # (Auto) 0.0 PT INR APTT pO2 VBG pH VBG pCO2 VBG HCO3 VBG Total CO2 VBG O2 Sat (Calc) VBG Base Excess VBG Potassium Glucose Lactate Crit Value Called To Crit Value Called By Crit Value Read Back Blood Gas Notified Time Sodium Potassium Chloride Carbon Dioxide Anion Gap BUN Creatinine Est GFR ( Amer) Est GFR (Non-Af Amer) POC Glucose (mg/dL) Random Glucose Calcium Phosphorus Magnesium Total Bilirubin AST ALT Alkaline Phosphatase Ammonia Troponin I NT-Pro-B Natriuret Pep 172 Total Protein Albumin Globulin Albumin/Globulin Ratio Lipase TSH 3rd Generation 1.95 Venous Blood Potassium Urine Color Urine Clarity Urine pH Ur Specific [place] Urine Protein Urine Glucose (UA) Urine Ketones Urine Blood Urine Nitrate Urine Bilirubin Urine Urobilinogen Ur Leukocyte Esterase Urine WBC (Auto) Urine RBC (Auto) Salicylates < 1.0 Urine Opiates Screen Urine Methadone Screen Acetaminophen < 10.0 L Ur Barbiturates Screen Ur Phencyclidine Scrn Ur Amphetamines Screen U Benzodiazepines Scrn U Oth Cocaine Metabols U Cannabinoids Screen Alcohol, Quantitative 12/19/18 06:38 WBC RBC Hgb Hct MCV MCH MCHC RDW Plt Count MPV Neut % (Auto) Lymph % (Auto) [place] % (Auto) Eos % (Auto) Baso % (Auto) Neut # (Auto) Lymph # (Auto) [place] # (Auto) Eos # (Auto) Baso # (Auto) PT INR APTT pO2 VBG pH VBG pCO2 VBG HCO3 VBG Total CO2 VBG O2 Sat (Calc) VBG Base Excess VBG Potassium Glucose Lactate Crit Value Called To Crit Value Called By Crit Value Read Back Blood Gas Notified Time Sodium 141 Potassium 4.5 Chloride 110 H Carbon Dioxide 26 Anion Gap 10 BUN 11 Creatinine 0.6 L Est GFR ( Amer) > 60 Est GFR (Non-Af Amer) > 60 POC Glucose (mg/dL) Random Glucose 83 Calcium 7.2 L Phosphorus 4.4 Magnesium 2.1 Total Bilirubin 0.2 AST 21 ALT 25 Alkaline Phosphatase 58 Ammonia Troponin I NT-Pro-B Natriuret Pep Total Protein 5.2 L Albumin 3.0 L Globulin 2.2 Albumin/Globulin Ratio 1.3 Lipase TSH 3rd Generation Venous Blood Potassium Urine Color Urine Clarity Urine pH Ur Specific [place] Urine Protein Urine Glucose (UA) Urine Ketones Urine Blood Urine Nitrate Urine Bilirubin Urine Urobilinogen Ur Leukocyte Esterase Urine WBC (Auto) Urine RBC (Auto) Salicylates Urine Opiates Screen Urine Methadone Screen Acetaminophen Ur Barbiturates Screen Ur Phencyclidine Scrn Ur Amphetamines Screen U Benzodiazepines Scrn U Oth Cocaine Metabols U Cannabinoids Screen Alcohol, Quantitative Assessment & Plan (1) Hypotension Status: Acute (2) Alcohol intoxication Status: Acute (3) COPD (chronic obstructive pulmonary disease) Status: Chronic (4) Depression Status: Chronic
[2018-12-19] MEDS: Folic Acid 1 MG, Thiamine 100 MG, Multivitamin (MVI) 10 ML in Dextrose 5% In Water 1,00... IV SCH (16:04)
[2018-12-19] MEDS: Albuterol-Ipratrop 3 mg / 0.5 (3 ml) UD INH SCH (17:43)
[2018-12-20] MEDS: Albuterol-Ipratrop 3 mg / 0.5 (3 ml) UD INH SCH ×7 (00:33→23:35)
[2018-12-20 06:19] LABS: BASO % 0.3 % (0.0-2.0); EOS # 0.1 K/uL (0.0-0.7); EOS % 1.2 % (0.0-4.0); HEMOGLOBIN 8.8 g/dL (12.0-18.0); LYMPH # 1.4 K/uL (1.0-4.3); LYMPH % 18.8 % (20.0-40.0); MEAN CELL VOLUME 84.9 fL (80.0-94.0); MEAN CORPUSCULAR HEMOGLOBIN 27.2 pg (27.0-31.0); MEAN CORPUSCULAR HGB CONC 32.1 g/dL (33.0-37.0); MEAN PLATELET VOLUME 7.7 fL (7.2-11.7); MONO # 0.4 K/uL (0.0-0.8); NEUT # 5.4 K/uL (1.8-7.0); NEUT % 73.7 % (50.0-75.0); RBC 3.24 Mil/uL (4.40-5.90); RED CELL DISTRIBUTION WIDTH 20.2 % (11.5-14.5); WHITE BLOOD COUNT 7.3 K/uL (4.8-10.8)
[2018-12-20 06:28] LABS: ALB/GLOB RATIO 1.3 (1.0-2.1); ALBUMIN 2.9 g/dL (3.5-5.0); ALT/SGPT 27 U/L (21-72); AST/SGOT 22 U/L (17-59); BLOOD UREA NITROGEN 11 mg/dL (9-20); CALCIUM 8.1 mg/dl (8.6-10.4); GFR NON-AFRICAN AMERICAN > 60
[2018-12-20] MEDS: Multiple Vitamins Tab PO SCH (09:50)
[2018-12-20] MEDS: guaiFENesin 600 mg ER Tab PO PRN (09:50)
--- NOTE | 2018-12-20 12:34 | CP.PCM.PN ---
Subjective - Date & Time of Evaluation Date of Evaluation: 12/20/18 Time of Evaluation: 12:33 - Subjective Subjective: ALERT AND AWAKE SOB/WHEEZING PERIODS OF CONFUSION ON EXAM [place]. POOR AIR ENTRY UNSTEADY GAIT CONT CURRENT MANAGEMENT Objective - Vital Signs/Intake and Output Vital Signs (last 24 hours): Temp Pulse Resp BP Pulse Ox 98.5 F 91 H 19 155/68 H 100 12/20/18 08:00 12/20/18 12:00 12/20/18 12:00 12/20/18 08:47 12/20/18 12:00 Intake and Output: 12/20/18 12/20/18 11:59 23:59 Intake Total 780 Output Total 2100 Balance -1320 - Medications Medications: Current Medications Albuterol/Ipratropium (Duoneb 3 Mg/0.5 Mg (3 Ml) Ud) 3 ml INH RQ4 [facility] Last Admin: 12/20/18 12:20 Dose: 3 ml Chlordiazepoxide (Librium) 75 mg PO Q8 [facility] Last Admin: 12/20/18 06:44 Dose: 75 mg Guaifenesin (Mucinex La) 600 mg PO BID PRN PRN Reason: Cough Last Admin: 12/20/18 09:50 Dose: 600 mg Heparin Sodium (Porcine) (Heparin) 5,000 units SC Q12 [facility] Last Admin: 12/20/18 09:50 Dose: 5,000 units Folic Acid 1 mg/ Thiamine HCl 100 mg/ Multivitamins/Vitamin C 10 ml/ Dextrose 1,011.2 mls @ 150 mls/hr IV Q24H [facility] Last Admin: 12/19/18 16:04 Dose: 150 mls/hr Multivitamins (Hexavitamin) 1 tab PO DAILY [facility] Last Admin: 12/20/18 09:50 Dose: 1 tab Thiamine HCl (Vitamin B1 Tab) 100 mg PO DAILY [facility] Last Admin: 12/20/18 09:50 Dose: 100 mg - Labs Labs: 12/20/18 06:07 12/20/18 06:07 PT 10.9 SECONDS (9.7-12.2) 12/18/18 16:00 INR 1.0 12/18/18 16:00 APTT 33 SECONDS (21-34) 12/18/18 16:00 Assessment and Plan (1) Hypotension Status: Acute (2) Alcohol intoxication Status: Acute (3) COPD (chronic obstructive pulmonary disease) Status: Chronic (4) Depression Status: Chronic
[2018-12-20] MEDS: Folic Acid 1 MG, Thiamine 100 MG, Multivitamin (MVI) 10 ML in Dextrose 5% In Water 1,00... IV SCH (16:32)
[2018-12-21] MEDS: Albuterol-Ipratrop 3 mg / 0.5 (3 ml) UD INH SCH ×4 (03:07→16:05)
[2018-12-21] MEDS: Multiple Vitamins Tab PO SCH (10:26)
--- NOTE | 2018-12-21 12:17 | CP.PCM.PN ---
Subjective - Date & Time of Evaluation Date of Evaluation: 12/21/18 Time of Evaluation: 12:16 - Subjective Subjective: ALERT AND AWAKE PT IN WITHDRAWALS ON LIBRIUM SOB/WHEEZING PERIODS OF CONFUSION ON EXAM [place]. POOR AIR ENTRY UNSTEADY GAIT CONT CURRENT MANAGEMENT Objective - Vital Signs/Intake and Output Vital Signs (last 24 hours): Temp Pulse Resp BP Pulse Ox 98.5 F 92 H 18 108/67 96 12/21/18 08:00 12/21/18 11:00 12/21/18 11:00 12/21/18 08:47 12/21/18 11:00 Intake and Output: 12/21/18 12/21/18 11:59 23:59 Intake Total 2300 Output Total 950 Balance 1350 - Medications Medications: Current Medications Albuterol/Ipratropium (Duoneb 3 Mg/0.5 Mg (3 Ml) Ud) 3 ml INH RQ4 [facility] Last Admin: 12/21/18 08:00 Dose: 3 ml Chlordiazepoxide (Librium) 75 mg PO Q8 [facility] Last Admin: 12/21/18 06:50 Dose: 75 mg Guaifenesin (Mucinex La) 600 mg PO BID PRN PRN Reason: Cough Last Admin: 12/20/18 09:50 Dose: 600 mg Heparin Sodium (Porcine) (Heparin) 5,000 units SC Q12 [facility] Last Admin: 12/21/18 10:26 Dose: 5,000 units Folic Acid 1 mg/ Thiamine HCl 100 mg/ Multivitamins/Vitamin C 10 ml/ Dextrose 1,011.2 mls @ 150 mls/hr IV Q24H [facility] Last Admin: 12/20/18 16:32 Dose: 150 mls/hr Multivitamins (Hexavitamin) 1 tab PO DAILY [facility] Last Admin: 12/21/18 10:26 Dose: 1 tab Thiamine HCl (Vitamin B1 Tab) 100 mg PO DAILY [facility] Last Admin: 12/21/18 10:26 Dose: 100 mg - Labs Labs: 12/20/18 06:07 12/20/18 06:07 PT 10.9 SECONDS (9.7-12.2) 12/18/18 16:00 INR 1.0 12/18/18 16:00 APTT 33 SECONDS (21-34) 12/18/18 16:00 Assessment and Plan (1) Hypotension Status: Acute (2) Alcohol intoxication Status: Acute (3) COPD (chronic obstructive pulmonary disease) Status: Chronic (4) Depression Status: Chronic
[2018-12-21] MEDS: Folic Acid 1 MG, Thiamine 100 MG, Multivitamin (MVI) 10 ML in Dextrose 5% In Water 1,00... IV SCH (17:00)
[2018-12-22] MEDS: Albuterol-Ipratrop 3 mg / 0.5 (3 ml) UD INH SCH ×6 (00:08→18:45)
[2018-12-22 07:22] LABS: BASO % 0.2 % (0.0-2.0); EOS # 0.1 K/uL (0.0-0.7); EOS % 2.1 % (0.0-4.0); HEMOGLOBIN 8.9 g/dL (12.0-18.0); LYMPH # 1.2 K/uL (1.0-4.3); LYMPH % 18.7 % (20.0-40.0); MEAN CELL VOLUME 85.1 fL (80.0-94.0); MEAN CORPUSCULAR HEMOGLOBIN 27.2 pg (27.0-31.0); MEAN PLATELET VOLUME 8.1 fL (7.2-11.7); MONO # 0.5 K/uL (0.0-0.8); MONO % 8.3 % (0.0-10.0); NEUT # 4.5 K/uL (1.8-7.0); NEUT % 70.7 % (50.0-75.0); RBC 3.28 Mil/uL (4.40-5.90); RED CELL DISTRIBUTION WIDTH 20.1 % (11.5-14.5); WHITE BLOOD COUNT 6.3 K/uL (4.8-10.8)
[2018-12-22 07:30] LABS: ALB/GLOB RATIO 1.4 (1.0-2.1); ALBUMIN 3.4 g/dL (3.5-5.0); ALT/SGPT 25 U/L (21-72); AST/SGOT 21 U/L (17-59); BLOOD UREA NITROGEN 11 mg/dL (9-20); CALCIUM 8.5 mg/dl (8.6-10.4); GFR NON-AFRICAN AMERICAN > 60
[2018-12-22] MEDS: Multiple Vitamins Tab PO SCH (09:23)
[2018-12-22] MEDS: guaiFENesin 600 mg ER Tab PO PRN (09:23)
--- NOTE | 2018-12-22 11:41 | CP.PCM.PN ---
Subjective - Date & Time of Evaluation Date of Evaluation: 12/22/18 Time of Evaluation: 11:41 - Subjective Subjective: ALERT AND AWAKE PT IN WITHDRAWALS ON LIBRIUM SOB/WHEEZING PERIODS OF CONFUSION ON EXAM [place]. POOR AIR ENTRY UNSTEADY GAIT CONT CURRENT MANAGEMENT Objective - Vital Signs/Intake and Output Vital Signs (last 24 hours): Temp Pulse Resp BP Pulse Ox 98.6 F 96 H 20 125/75 97 12/22/18 00:00 12/22/18 00:00 12/22/18 00:00 12/22/18 00:00 12/22/18 00:00 Intake and Output: 12/21/18 12/22/18 23:59 11:59 Intake Total 750 1200 Output Total 900 850 Balance -150 350 - Medications Medications: Current Medications Albuterol/Ipratropium (Duoneb 3 Mg/0.5 Mg (3 Ml) Ud) 3 ml INH RQ4 [facility] Last Admin: 12/22/18 07:30 Dose: 3 ml Chlordiazepoxide (Librium) 75 mg PO Q8 [facility] Last Admin: 12/22/18 06:05 Dose: 75 mg Guaifenesin (Mucinex [place]) 600 mg PO BID PRN PRN Reason: Cough Last Admin: 12/22/18 09:23 Dose: 600 mg Multivitamins (Hexavitamin) 1 tab PO DAILY [facility] Last Admin: 12/22/18 09:23 Dose: 1 tab Thiamine HCl (Vitamin B1 Tab) 100 mg PO DAILY [facility] Last Admin: 12/22/18 09:23 Dose: 100 mg - Labs Labs: 12/22/18 07:09 12/22/18 07:09 PT 10.9 SECONDS (9.7-12.2) 12/18/18 16:00 INR 1.0 12/18/18 16:00 APTT 33 SECONDS (21-34) 12/18/18 16:00 Assessment and Plan (1) Hypotension Status: Acute (2) Alcohol intoxication Status: Acute (3) COPD (chronic obstructive pulmonary disease) Status: Chronic (4) Depression Status: Chronic
[2018-12-23 00:25] VITALS: RESP 20
[2018-12-23] MEDS: Albuterol-Ipratrop 3 mg / 0.5 (3 ml) UD INH SCH ×5 (00:35→19:32)
[2018-12-23] MEDS: guaiFENesin 600 mg ER Tab PO PRN (09:21)
[2018-12-23] MEDS: Multiple Vitamins Tab PO SCH (09:21)
[2018-12-23] MEDS ORDERED: Multiple Vitamins Tab PO SCH (11:30)
[2018-12-23] MEDS: Pantoprazole 40 mg EC Tab PO SCH (11:35)
[2018-12-23 11:36] LABS: HEMOGLOBIN 10.2 g/dL (12.0-18.0); MEAN CORPUSCULAR HEMOGLOBIN 27.7 pg (27.0-31.0); MEAN CORPUSCULAR HGB CONC 32.7 g/dL (33.0-37.0); MEAN PLATELET VOLUME 7.8 fL (7.2-11.7); RBC 3.68 Mil/uL (4.40-5.90); RED CELL DISTRIBUTION WIDTH 19.7 % (11.5-14.5); WHITE BLOOD COUNT 7.1 K/uL (4.8-10.8)
--- NOTE | 2018-12-23 11:39 | RAD ---
HISTORY: congestion COMPARISON: Chest x-ray performed 12/19/18 TECHNIQUE: Chest PA and lateral FINDINGS: LUNGS: Hyperinflation. No focal consolidation. 12 mm nodular opacity projects over the right lateral lower lobe possibly nipple shadow. Please note that chest x-ray has limited sensitivity for the detection of pulmonary masses. PLEURA: No significant pleural effusion identified. No definite pneumothorax . CARDIOVASCULAR: Heart size appears within normal limits. Atherosclerotic calcifications present. OSSEOUS STRUCTURES: Degenerative changes. VISUALIZED UPPER ABDOMEN: Unremarkable. OTHER FINDINGS: None. IMPRESSION: Hyperinflation. No focal consolidation. 12 mm nodular opacity projects over the right lateral lower lobe possibly nipple shadow.
[2018-12-23 12:04] LABS: ALB/GLOB RATIO 1.4 (1.0-2.1); ALBUMIN 3.9 g/dL (3.5-5.0); ALT/SGPT 13 U/L (21-72); AST/SGOT 20 U/L (17-59); BLOOD UREA NITROGEN 12 mg/dL (9-20); GFR NON-AFRICAN AMERICAN > 60
[2018-12-23 12:07] LABS: B-TYPE NATRIURETIC PEPTIDE 278 pg/mL (0-900)
--- NOTE | 2018-12-23 12:08 | CP.PCM.PN ---
Subjective - Date & Time of Evaluation Date of Evaluation: 12/23/18 Time of Evaluation: 12:07 - Subjective Subjective: Patient was short of breath this morning CBC and chemistries normal Chest x-ray shows hyperinflation no infiltrate proBNP is pending Continue nebulizer Librium. Objective - Vital Signs/Intake and Output Vital Signs (last 24 hours): Temp Pulse Resp BP Pulse Ox 98.2 F 93 H 20 107/69 96 12/23/18 08:00 12/23/18 08:00 12/23/18 08:00 12/23/18 08:00 12/23/18 08:00 - Medications Medications: Current Medications Albuterol/Ipratropium (Duoneb 3 Mg/0.5 Mg (3 Ml) Ud) 3 ml INH RQ4 [facility] Last Admin: 12/23/18 07:30 Dose: 3 ml Chlordiazepoxide (Librium) 25 mg PO Q8 PRN PRN Reason: Agitation Guaifenesin (Mucinex [place]) 600 mg PO BID PRN PRN Reason: Cough Last Admin: 12/23/18 09:21 Dose: 600 mg Mirtazapine (Remeron) 30 mg PO HS [facility] Multivitamins (Hexavitamin) 1 tab PO DAILY [facility] Last Admin: 12/23/18 09:21 Dose: 1 tab Mupirocin (Bactroban Ointment) 0 gm TOP BID [facility] Last Admin: 12/23/18 09:21 Dose: 1 applic Pantoprazole Sodium (Protonix Ec Tab) 40 mg PO DAILY [facility] Last Admin: 12/23/18 11:35 Dose: 40 mg Thiamine HCl (Vitamin B1 Tab) 100 mg PO DAILY [facility] Last Admin: 12/23/18 09:21 Dose: 100 mg Trazodone HCl (Desyrel) 50 mg PO HS PRN PRN Reason: Insomnia - Labs Labs: 12/23/18 11:28 12/23/18 11:28 PT 10.9 SECONDS (9.7-12.2) 12/18/18 16:00 INR 1.0 12/18/18 16:00 APTT 33 SECONDS (21-34) 12/18/18 16:00 Assessment and Plan (1) Hypotension Status: Acute (2) Alcohol intoxication Status: Acute (3) COPD (chronic obstructive pulmonary disease) Status: Chronic (4) Depression Status: Chronic
[2018-12-23] MEDS ORDERED: methylPREDNISolone 40 MG in Sodium Chloride 0.9% 100 ML IVPB SCH (17:00)
[2018-12-23] MEDS: MethylPREDNISolone 40 mg Vial IV SCH (18:24)
[2018-12-24] MEDS: MethylPREDNISolone 40 mg Vial IV SCH ×3 (00:19→17:13)
[2018-12-24] MEDS: Albuterol-Ipratrop 3 mg / 0.5 (3 ml) UD INH SCH ×3 (01:27→11:16)
[2018-12-24] MEDS: Pantoprazole 40 mg EC Tab PO SCH (09:29)
[2018-12-24] MEDS: guaiFENesin 600 mg ER Tab PO PRN ×2 (09:29→17:09)
[2018-12-24] MEDS: Multiple Vitamins Tab PO SCH (09:29)
--- NOTE | 2018-12-24 12:13 | CP.PCM.PN ---
Subjective - Date & Time of Evaluation Date of Evaluation: 12/24/18 Time of Evaluation: 12:13 - Subjective Subjective: Patient was short of breath this morning CBC and chemistries normal Chest x-ray shows hyperinflation no infiltrate proBNP is pending Continue nebulizer Librium. iv steroid added Objective - Vital Signs/Intake and Output Vital Signs (last 24 hours): Temp Pulse Resp BP Pulse Ox 97.3 F L 83 20 115/71 98 12/24/18 09:19 12/24/18 09:19 12/24/18 09:19 12/24/18 09:19 12/24/18 09:19 - Medications Medications: Current Medications Albuterol/Ipratropium (Duoneb 3 Mg/0.5 Mg (3 Ml) Ud) 3 ml INH Q6H [facility] Last Admin: 12/24/18 11:16 Dose: 3 ml Chlordiazepoxide (Librium) 25 mg PO Q8 PRN PRN Reason: Agitation Guaifenesin (Mucinex La) 600 mg PO BID PRN PRN Reason: Cough Last Admin: 12/24/18 09:29 Dose: 600 mg Methylprednisolone (Solu-Medrol) 40 mg IV Q8H [facility] Last Admin: 12/24/18 09:29 Dose: 40 mg Mirtazapine (Remeron) 30 mg PO HS [facility] Last Admin: 12/23/18 21:57 Dose: Not Given Multivitamins (Hexavitamin) 1 tab PO DAILY [facility] Last Admin: 12/24/18 09:29 Dose: 1 tab Mupirocin (Bactroban Ointment) 0 gm TOP BID [facility] Last Admin: 12/24/18 09:30 Dose: 1 applic Pantoprazole Sodium (Protonix Ec Tab) 40 mg PO DAILY [facility] Last Admin: 12/24/18 09:29 Dose: 40 mg Thiamine HCl (Vitamin B1 Tab) 100 mg PO DAILY [facility] Last Admin: 12/24/18 09:29 Dose: 100 mg Trazodone HCl (Desyrel) 50 mg PO HS PRN PRN Reason: Insomnia - Labs Labs: 12/23/18 11:28 12/23/18 11:28 PT 10.9 SECONDS (9.7-12.2) 12/18/18 16:00 INR 1.0 12/18/18 16:00 APTT 33 SECONDS (21-34) 12/18/18 16:00 Assessment and Plan (1) Hypotension Status: Acute (2) Alcohol intoxication Status: Acute (3) COPD (chronic obstructive pulmonary disease) Status: Chronic (4) Depression Status: Chronic
[2018-12-25] MEDS: MethylPREDNISolone 40 mg Vial IV SCH ×3 (00:25→17:44)
[2018-12-25] MEDS: Albuterol-Ipratrop 3 mg / 0.5 (3 ml) UD INH SCH ×3 (01:43→19:44)
[2018-12-25] MEDS: Multiple Vitamins Tab PO SCH (09:29)
[2018-12-25] MEDS: Pantoprazole 40 mg EC Tab PO SCH (09:30)
--- NOTE | 2018-12-25 12:13 | CP.PCM.PN ---
Subjective - Date & Time of Evaluation Date of Evaluation: 12/25/18 Time of Evaluation: 12:13 - Subjective Subjective: Patient was short of breath this morning CBC and chemistries normal Chest x-ray shows hyperinflation no infiltrate proBNP is pending Continue nebulizer Librium. iv steroid added PT IS UNSTABLE FOR [facility] SHORT TERM REHAB Objective - Vital Signs/Intake and Output Vital Signs (last 24 hours): Temp Pulse Resp BP Pulse Ox 97.8 F 87 20 108/64 99 12/25/18 00:00 12/25/18 00:00 12/25/18 00:00 12/25/18 00:00 12/25/18 00:00 - Medications Medications: Current Medications Acetaminophen (Tylenol 325mg Tab) 650 mg PO Q6 PRN PRN Reason: Pain, moderate (4-7) Last Admin: 12/24/18 17:40 Dose: 650 mg Albuterol/Ipratropium (Duoneb 3 Mg/0.5 Mg (3 Ml) Ud) 3 ml INH Q6H [facility] Last Admin: 12/25/18 08:50 Dose: Not Given Gabapentin (Neurontin) 100 mg PO TID [facility] Last Admin: 12/25/18 09:29 Dose: 100 mg Guaifenesin (Mucinex La) 600 mg PO BID PRN PRN Reason: Cough Last Admin: 12/24/18 17:09 Dose: 600 mg Methylprednisolone (Solu-Medrol) 40 mg IV Q8H [facility] Last Admin: 12/25/18 09:30 Dose: 40 mg Mirtazapine (Remeron) 30 mg PO HS [facility] Last Admin: 12/24/18 22:54 Dose: 30 mg Multivitamins (Hexavitamin) 1 tab PO DAILY [facility] Last Admin: 12/25/18 09:29 Dose: 1 tab Mupirocin (Bactroban Ointment) 0 gm TOP BID [facility] Last Admin: 12/25/18 09:33 Dose: 1 applic Pantoprazole Sodium (Protonix Ec Tab) 40 mg PO DAILY [facility] Last Admin: 12/25/18 09:30 Dose: 40 mg Thiamine HCl (Vitamin B1 Tab) 100 mg PO DAILY [facility] Last Admin: 12/25/18 09:29 Dose: 100 mg Trazodone HCl (Desyrel) 50 mg PO HS PRN PRN Reason: Insomnia - Labs Labs: 12/23/18 11:28 12/23/18 11:28 PT 10.9 SECONDS (9.7-12.2) 12/18/18 16:00 INR 1.0 12/18/18 16:00 APTT 33 SECONDS (21-34) 12/18/18 16:00 Assessment and Plan (1) Hypotension Status: Acute (2) Alcohol intoxication Status: Acute (3) COPD (chronic obstructive pulmonary disease) Status: Chronic (4) Depression Status: Chronic
[2018-12-26] MEDS: MethylPREDNISolone 40 mg Vial IV SCH ×3 (00:35→17:24)
[2018-12-26] MEDS: Albuterol-Ipratrop 3 mg / 0.5 (3 ml) UD INH SCH ×5 (01:23→23:59)
[2018-12-26] MEDS: Multiple Vitamins Tab PO SCH (09:00)
[2018-12-26] MEDS: Pantoprazole 40 mg EC Tab PO SCH (09:01)
[2018-12-26] MEDS: guaiFENesin 600 mg ER Tab PO PRN ×2 (09:01→21:58)
--- NOTE | 2018-12-26 11:12 | CP.PCM.PN ---
Subjective - Date & Time of Evaluation Date of Evaluation: 12/26/18 Time of Evaluation: 11:12 - Subjective Subjective: Patient has SOB on walking to bathroom CBC and chemistries normal Chest x-ray shows hyperinflation no infiltrate proBNP is pending Continue nebulizer Librium. iv steroid added PT IS UNSTABLE FOR [facility] SHORT TERM REHAB Objective - Vital Signs/Intake and Output Vital Signs (last 24 hours): Temp Pulse Resp BP Pulse Ox 97.3 F L 85 20 124/80 96 12/26/18 08:00 12/26/18 08:00 12/26/18 08:00 12/26/18 08:00 12/26/18 08:00 - Medications Medications: Current Medications Acetaminophen (Tylenol 325mg Tab) 650 mg PO Q6 PRN PRN Reason: Pain, moderate (4-7) Last Admin: 12/24/18 17:40 Dose: 650 mg Albuterol/Ipratropium (Duoneb 3 Mg/0.5 Mg (3 Ml) Ud) 3 ml INH Q6H [facility] Last Admin: 12/26/18 08:37 Dose: 3 ml Gabapentin (Neurontin) 100 mg PO TID [facility] Last Admin: 12/26/18 09:01 Dose: 100 mg Guaifenesin (Mucinex La) 600 mg PO BID PRN PRN Reason: Cough Last Admin: 12/26/18 09:01 Dose: 600 mg Methylprednisolone (Solu-Medrol) 40 mg IV Q8H [facility] Last Admin: 12/26/18 08:59 Dose: 40 mg Mirtazapine (Remeron) 30 mg PO HS [facility] Multivitamins (Hexavitamin) 1 tab PO DAILY [facility] Last Admin: 12/26/18 09:00 Dose: 1 tab Mupirocin (Bactroban Ointment) 0 gm TOP BID [facility] Last Admin: 12/26/18 09:10 Dose: 1 applic Pantoprazole Sodium (Protonix Ec Tab) 40 mg PO DAILY [facility] Last Admin: 12/26/18 09:01 Dose: 40 mg Thiamine HCl (Vitamin B1 Tab) 100 mg PO DAILY [facility] Last Admin: 12/26/18 09:01 Dose: 100 mg Trazodone HCl (Desyrel) 50 mg PO HS PRN PRN Reason: Insomnia Last Admin: 12/25/18 21:54 Dose: 50 mg - Labs Labs: 12/23/18 11:28 12/23/18 11:28 PT 10.9 SECONDS (9.7-12.2) 12/18/18 16:00 INR 1.0 12/18/18 16:00 APTT 33 SECONDS (21-34) 12/18/18 16:00 Assessment and Plan (1) Hypotension Status: Acute (2) Alcohol intoxication Status: Acute (3) COPD (chronic obstructive pulmonary disease) Status: Chronic (4) Depression Status: Chronic
[2018-12-26] MEDS ORDERED: Albuterol-Ipratrop 3 mg / 0.5 (3 ml) UD INH STA (12:51)
[2018-12-27] MEDS: MethylPREDNISolone 40 mg Vial IV SCH ×3 (00:04→17:51)
[2018-12-27] MEDS: Albuterol-Ipratrop 3 mg / 0.5 (3 ml) UD INH SCH ×5 (03:26→19:49)
[2018-12-27] MEDS: Pantoprazole 40 mg EC Tab PO SCH (09:39)
[2018-12-27] MEDS: Multiple Vitamins Tab PO SCH (09:39)
[2018-12-27] MEDS: guaiFENesin 600 mg ER Tab PO PRN (09:40)
--- NOTE | 2018-12-27 13:01 | CP.PCM.PN ---
Subjective - Date & Time of Evaluation Date of Evaluation: 12/27/18 Time of Evaluation: 13:01 - Subjective Subjective: Patient has SOB on walking to bathroom CBC and chemistries normal Chest x-ray shows hyperinflation no infiltrate proBNP is pending Continue nebulizer Librium. iv steroid added PT IS UNSTABLE FOR [facility] SHORT TERM REHAB Objective - Vital Signs/Intake and Output Vital Signs (last 24 hours): Temp Pulse Resp BP Pulse Ox 97.3 F L 73 20 111/71 98 12/27/18 07:45 12/27/18 07:45 12/27/18 07:45 12/27/18 07:45 12/27/18 07:45 Intake and Output: 12/27/18 12/27/18 11:59 23:59 Intake Total 300 Output Total 550 Balance -250 - Medications Medications: Current Medications Acetaminophen (Tylenol 325mg Tab) 650 mg PO Q6 PRN PRN Reason: Pain, moderate (4-7) Last Admin: 12/24/18 17:40 Dose: 650 mg Albuterol/Ipratropium (Duoneb 3 Mg/0.5 Mg (3 Ml) Ud) 3 ml INH RQ4 [facility] Last Admin: 12/27/18 11:34 Dose: 3 ml Gabapentin (Neurontin) 100 mg PO TID [facility] Last Admin: 12/27/18 09:39 Dose: 100 mg Guaifenesin (Mucinex La) 600 mg PO BID PRN PRN Reason: Cough Last Admin: 12/27/18 09:40 Dose: 600 mg Methylprednisolone (Solu-Medrol) 40 mg IV Q8H [facility] Last Admin: 12/27/18 08:31 Dose: 40 mg Mirtazapine (Remeron) 30 mg PO HS [facility] Last Admin: 12/26/18 21:49 Dose: 30 mg Multivitamins (Hexavitamin) 1 tab PO DAILY [facility] Last Admin: 12/27/18 09:39 Dose: 1 tab Mupirocin (Bactroban Ointment) 0 gm TOP BID [facility] Last Admin: 12/27/18 09:39 Dose: 1 applic Pantoprazole Sodium (Protonix Ec Tab) 40 mg PO DAILY [facility] Last Admin: 12/27/18 09:39 Dose: 40 mg Thiamine HCl (Vitamin B1 Tab) 100 mg PO DAILY [facility] Last Admin: 02/02/19 09:39 Dose: 100 mg Trazodone HCl (Desyrel) 50 mg PO HS PRN PRN Reason: Insomnia Last Admin: 12/26/18 21:38 Dose: 50 mg - Labs Labs: 12/23/18 11:28 12/23/18 11:28 PT 10.9 SECONDS (9.7-12.2) 12/18/18 16:00 INR 1.0 12/18/18 16:00 APTT 33 SECONDS (21-34) 12/18/18 16:00 Assessment and Plan (1) Hypotension Status: Acute (2) Alcohol intoxication Status: Acute (3) COPD (chronic obstructive pulmonary disease) Status: Chronic (4) Depression Status: Chronic
--- NOTE | 2018-12-27 16:29 | CARD ---
APPROVED REPORT Date of service: 12/18/2018 EKG Measurement Heart [id number] <Conclusion> Normal sinus rhythm Possible Left atrial enlargement Borderline ECG
[2018-12-28] MEDS: MethylPREDNISolone 40 mg Vial IV SCH ×3 (00:13→17:31)
[2018-12-28] MEDS: Albuterol-Ipratrop 3 mg / 0.5 (3 ml) UD INH SCH ×6 (00:35→20:38)
[2018-12-28] MEDS: Pantoprazole 40 mg EC Tab PO SCH (09:09)
[2018-12-28] MEDS: Multiple Vitamins Tab PO SCH (09:09)
--- NOTE | 2018-12-28 12:07 | CP.PCM.PN ---
Subjective - Date & Time of Evaluation Date of Evaluation: 12/28/18 Time of Evaluation: 12:06 - Subjective Subjective: Patient has SOB on walking to bathroom CBC and chemistries normal Chest x-ray shows hyperinflation no infiltrate proBNP is pending Continue nebulizer Librium. iv steroid added PT IS UNSTABLE FOR [facility] SHORT TERM REH[facility] Objective - Vital Signs/Intake and Output Vital Signs (last 24 hours): Temp Pulse Resp BP Pulse Ox 97.4 F L 76 20 127/69 99 12/28/18 07:23 12/28/18 07:23 12/28/18 07:23 12/28/18 07:23 12/28/18 07:23 - Medications Medications: Current Medications Acetaminophen (Tylenol 325mg Tab) 650 mg PO Q6 PRN PRN Reason: Pain, moderate (4-7) Last Admin: 12/24/18 17:40 Dose: 650 mg Albuterol/Ipratropium (Duoneb 3 Mg/0.5 Mg (3 Ml) Ud) 3 ml INH RQ4 [facility] Last Admin: 12/28/18 08:04 Dose: 3 ml Gabapentin (Neurontin) 100 mg PO TID [facility] Last Admin: 12/28/18 09:10 Dose: 100 mg Guaifenesin (Mucinex La) 600 mg PO BID PRN PRN Reason: Cough Last Admin: 12/27/18 09:40 Dose: 600 mg Methylprednisolone (Solu-Medrol) 40 mg IV Q8H [facility] Last Admin: 12/28/18 09:10 Dose: 40 mg Mirtazapine (Remeron) 30 mg PO HS [facility] Last Admin: 12/27/18 21:40 Dose: 30 mg Multivitamins (Hexavitamin) 1 tab PO DAILY [facility] Last Admin: 12/28/18 09:09 Dose: 1 tab Mupirocin (Bactroban Ointment) 0 gm TOP BID [facility] Last Admin: 12/28/18 09:09 Dose: 1 applic Pantoprazole Sodium (Protonix Ec Tab) 40 mg PO DAILY [facility] Last Admin: 12/28/18 09:09 Dose: 40 mg Thiamine HCl (Vitamin B1 Tab) 100 mg PO DAILY [facility] Last Admin: 12/28/18 09:09 Dose: 100 mg Trazodone HCl (Desyrel) 50 mg PO HS PRN PRN Reason: Insomnia Last Admin: 12/27/18 21:42 Dose: 50 mg - Labs Labs: 12/23/18 11:28 12/23/18 11:28 PT 10.9 SECONDS (9.7-12.2) 12/18/18 16:00 INR 1.0 12/18/18 16:00 APTT 33 SECONDS (21-34) 12/18/18 16:00 Assessment and Plan (1) Hypotension Status: Acute (2) Alcohol intoxication Status: Acute (3) COPD (chronic obstructive pulmonary disease) Status: Chronic (4) Depression Status: Chronic
[2018-12-28] MEDS: guaiFENesin 600 mg ER Tab PO PRN (14:00)
[2018-12-28] MEDS ORDERED: Aluminum Hydroxide/Magnesium Hydroxide Susp (30 mL) PO PRN (19:23)
[2018-12-29] MEDS: MethylPREDNISolone 40 mg Vial IV SCH ×3 (00:37→17:33)
[2018-12-29] MEDS: Albuterol-Ipratrop 3 mg / 0.5 (3 ml) UD INH SCH ×6 (01:01→19:41)
[2018-12-29] MEDS: Pantoprazole 40 mg EC Tab PO SCH (09:56)
[2018-12-29] MEDS: Multiple Vitamins Tab PO SCH (09:56)
--- NOTE | 2018-12-29 11:44 | CP.PCM.PN ---
Subjective - Date & Time of Evaluation Date of Evaluation: 12/29/18 Time of Evaluation: 11:44 - Subjective Subjective: Patient has SOB on walking to bathroom CBC and chemistries normal Chest x-ray shows hyperinflation no infiltrate proBNP is pending Continue nebulizer Librium. iv steroid added PT IS UNSTABLE FOR [facility] SHORT TERM REHAB Objective - Vital Signs/Intake and Output Vital Signs (last 24 hours): Temp Pulse Resp BP Pulse Ox 97.6 F 89 20 100/66 99 12/29/18 08:28 12/29/18 08:28 12/29/18 08:28 12/29/18 08:28 12/29/18 08:28 Intake and Output: 12/28/18 12/29/18 23:59 11:59 Intake Total 400 Balance 400 - Medications Medications: Current Medications Acetaminophen (Tylenol 325mg Tab) 650 mg PO Q6 PRN PRN Reason: Pain, moderate (4-7) Last Admin: 12/28/18 13:59 Dose: 650 mg Al Hydrox/Mg Hydrox/Simethicone (Maalox 30 Ml) 30 ml PO Q6H PRN PRN Reason: Indigestion / Heartburn Last Admin: 12/28/18 20:13 Dose: 30 ml Albuterol/Ipratropium (Duoneb 3 Mg/0.5 Mg (3 Ml) Ud) 3 ml INH RQ4 [facility] Last Admin: 12/29/18 07:40 Dose: 3 ml Gabapentin (Neurontin) 100 mg PO TID [facility] Last Admin: 12/29/18 09:56 Dose: 100 mg Guaifenesin (Mucinex La) 600 mg PO BID PRN PRN Reason: Cough Last Admin: 12/28/18 14:00 Dose: 600 mg Methylprednisolone (Solu-Medrol) 40 mg IV Q8H [facility] Last Admin: 12/29/18 09:58 Dose: 40 mg Mirtazapine (Remeron) 30 mg PO HS [facility] Last Admin: 12/28/18 21:51 Dose: 30 mg Multivitamins (Hexavitamin) 1 tab PO DAILY [facility] Last Admin: 12/29/18 09:56 Dose: 1 tab Mupirocin (Bactroban Ointment) 0 gm TOP BID [facility] Last Admin: 12/29/18 09:55 Dose: 1 applic Pantoprazole Sodium (Protonix Ec Tab) 40 mg PO DAILY [facility] Last Admin: 12/29/18 09:56 Dose: 40 mg Thiamine HCl (Vitamin B1 Tab) 100 mg PO DAILY [facility] Last Admin: 12/29/18 09:56 Dose: 100 mg Trazodone HCl (Desyrel) 50 mg PO HS PRN PRN Reason: Insomnia Last Admin: 12/28/18 21:51 Dose: 50 mg - Labs Labs: 12/23/18 11:28 12/23/18 11:28 PT 10.9 SECONDS (9.7-12.2) 12/18/18 16:00 INR 1.0 12/18/18 16:00 APTT 33 SECONDS (21-34) 12/18/18 16:00 Assessment and Plan (1) Hypotension Status: Acute (2) Alcohol intoxication Status: Acute (3) COPD (chronic obstructive pulmonary disease) Status: Chronic (4) Depression Status: Chronic
[2018-12-30] MEDS: MethylPREDNISolone 40 mg Vial IV SCH ×3 (00:10→17:28)
[2018-12-30] MEDS: Albuterol-Ipratrop 3 mg / 0.5 (3 ml) UD INH SCH ×5 (00:51→19:05)
[2018-12-30] MEDS: Pantoprazole 40 mg EC Tab PO SCH (10:03)
[2018-12-30] MEDS: Multiple Vitamins Tab PO SCH (10:03)
--- NOTE | 2018-12-30 11:35 | CP.PCM.PN ---
Subjective - Date & Time of Evaluation Date of Evaluation: 12/30/18 Time of Evaluation: 11:34 - Subjective Subjective: Patient has SOB on walking to bathroom CBC and chemistries normal Chest x-ray shows hyperinflation no infiltrate proBNP is pending Continue nebulizer Librium. iv steroid added PT IS UNSTABLE FOR [facility] SHORT TERM REHAB Objective - Vital Signs/Intake and Output Vital Signs (last 24 hours): Temp Pulse Resp BP Pulse Ox 98.1 F 75 20 136/73 98 12/30/18 08:39 12/30/18 08:39 12/30/18 08:39 12/30/18 08:39 12/30/18 08:39 Intake and Output: 12/29/18 12/30/18 23:59 11:59 Intake Total 1000 Balance 1000 - Medications Medications: Current Medications Acetaminophen (Tylenol 325mg Tab) 650 mg PO Q6 PRN PRN Reason: Pain, moderate (4-7) Last Admin: 12/29/18 17:52 Dose: 650 mg Al Hydrox/Mg Hydrox/Simethicone (Maalox 30 Ml) 30 ml PO Q6H PRN PRN Reason: Indigestion / Heartburn Last Admin: 12/28/18 20:13 Dose: 30 ml Albuterol/Ipratropium (Duoneb 3 Mg/0.5 Mg (3 Ml) Ud) 3 ml INH RQ4 [facility] Last Admin: 12/30/18 11:16 Dose: Not Given Gabapentin (Neurontin) 100 mg PO TID [facility] Last Admin: 12/30/18 10:03 Dose: 100 mg Guaifenesin (Mucinex La) 600 mg PO BID PRN PRN Reason: Cough Last Admin: 12/28/18 14:00 Dose: 600 mg Methylprednisolone (Solu-Medrol) 40 mg IV Q8H [facility] Last Admin: 12/30/18 10:04 Dose: 40 mg Mirtazapine (Remeron) 30 mg PO HS [facility] Last Admin: 12/29/18 21:48 Dose: 30 mg Multivitamins (Hexavitamin) 1 tab PO DAILY [facility] Last Admin: 12/30/18 10:03 Dose: 1 tab Mupirocin (Bactroban Ointment) 0 gm TOP BID [facility] Last Admin: 12/30/18 10:02 Dose: 1 applic Pantoprazole Sodium (Protonix Ec Tab) 40 mg PO DAILY [facility] Last Admin: 12/30/18 10:03 Dose: 40 mg Thiamine HCl (Vitamin B1 Tab) 100 mg PO DAILY [facility] Last Admin: 12/30/18 10:03 Dose: 100 mg Trazodone HCl (Desyrel) 50 mg PO HS PRN PRN Reason: Insomnia Last Admin: 12/29/18 21:49 Dose: 50 mg - Labs Labs: 12/23/18 11:28 12/23/18 11:28 PT 10.9 SECONDS (9.7-12.2) 12/18/18 16:00 INR 1.0 12/18/18 16:00 APTT 33 SECONDS (21-34) 12/18/18 16:00 Assessment and Plan (1) Hypotension Status: Acute (2) Alcohol intoxication Status: Acute (3) COPD (chronic obstructive pulmonary disease) Status: Chronic (4) Depression Status: Chronic
[2018-12-31] MEDS: Albuterol-Ipratrop 3 mg / 0.5 (3 ml) UD INH SCH ×5 (00:04→16:15)
[2018-12-31] MEDS: MethylPREDNISolone 40 mg Vial IV SCH ×3 (00:23→16:41)
[2018-12-31] MEDS: Pantoprazole 40 mg EC Tab PO SCH (09:14)
[2018-12-31] MEDS: Multiple Vitamins Tab PO SCH (09:14)
[2018-12-31] MEDS ORDERED: Albuterol HFA 90 mcg/actuation (8 g) INH PRN (12:00)
--- NOTE | 2018-12-31 12:03 | CP.PCM.PN ---
Subjective - Date & Time of Evaluation Date of Evaluation: 12/31/18 Time of Evaluation: 12:02 - Subjective Subjective: Patient has SOB on walking to bathroom CBC and chemistries normal Chest x-ray shows hyperinflation no infiltrate iv steroid added Unsteady gait , mild tremors PT IS UNSTABLE FOR [facility] SHORT TERM REHAB Objective - Vital Signs/Intake and Output Vital Signs (last 24 hours): Temp Pulse Resp BP Pulse Ox 97.8 F 93 H 20 113/74 96 12/31/18 08:00 12/31/18 08:00 12/31/18 08:00 12/31/18 08:00 12/31/18 08:00 Intake and Output: 12/31/18 12/31/18 11:59 23:59 Intake Total 400 Balance 400 - Medications Medications: Current Medications Acetaminophen (Tylenol 325mg Tab) 650 mg PO Q6 PRN PRN Reason: Pain, moderate (4-7) Last Admin: 12/29/18 17:52 Dose: 650 mg Al Hydrox/Mg Hydrox/Simethicone (Maalox 30 Ml) 30 ml PO Q6H PRN PRN Reason: Indigestion / Heartburn Last Admin: 12/28/18 20:13 Dose: 30 ml Albuterol (Ventolin Hfa 90 Mcg/Actuation (8 G)) 1 puff INH RQ4 PRN PRN Reason: Shortness of Breath Albuterol/Ipratropium (Duoneb 3 Mg/0.5 Mg (3 Ml) Ud) 3 ml INH RQ4 [facility] Last Admin: 12/31/18 08:35 Dose: 3 ml Gabapentin (Neurontin) 100 mg PO TID [facility] Last Admin: 12/31/18 09:14 Dose: 100 mg Guaifenesin (Mucinex La) 600 mg PO BID PRN PRN Reason: Cough Last Admin: 12/28/18 14:00 Dose: 600 mg Methylprednisolone (Solu-Medrol) 40 mg IV Q8H [facility] Last Admin: 12/31/18 09:14 Dose: 40 mg Mirtazapine (Remeron) 30 mg PO HS [facility] Last Admin: 12/30/18 21:50 Dose: 30 mg Multivitamins (Hexavitamin) 1 tab PO DAILY [facility] Last Admin: 12/31/18 09:14 Dose: 1 tab Mupirocin (Bactroban Ointment) 0 gm TOP BID [facility] Last Admin: 12/31/18 09:14 Dose: 1 applic Pantoprazole Sodium (Protonix Ec Tab) 40 mg PO DAILY [facility] Last Admin: 12/31/18 09:14 Dose: 40 mg Thiamine HCl (Vitamin B1 Tab) 100 mg PO DAILY [facility] Last Admin: 12/31/18 09:14 Dose: 100 mg Trazodone HCl (Desyrel) 50 mg PO HS PRN PRN Reason: Insomnia Last Admin: 12/30/18 21:50 Dose: 50 mg - Labs Labs: 12/23/18 11:28 12/23/18 11:28 PT 10.9 SECONDS (9.7-12.2) 12/18/18 16:00 INR 1.0 12/18/18 16:00 APTT 33 SECONDS (21-34) 12/18/18 16:00 Assessment and Plan (1) Hypotension Status: Acute (2) Alcohol intoxication Status: Acute (3) COPD (chronic obstructive pulmonary disease) Status: Chronic (4) Depression Status: Chronic
[2019-01-01] MEDS: MethylPREDNISolone 40 mg Vial IV SCH ×2 (01:08→10:00)
[2019-01-01] MEDS: Albuterol-Ipratrop 3 mg / 0.5 (3 ml) UD INH SCH ×3 (04:00→12:00)
[2019-01-01] MEDS ORDERED: Fluticasone-Vilanterol 200/25mcg Diskus INH SCH (10:00)
[2019-01-01] MEDS: Multiple Vitamins Tab PO SCH (10:04)
[2019-01-01] MEDS: Pantoprazole 40 mg EC Tab PO SCH (10:04)
--- NOTE | 2019-01-01 11:46 | CP.PCM.PN ---
Subjective - Date & Time of Evaluation Date of Evaluation: 01/01/19 Time of Evaluation: 11:46 - Subjective Subjective: Patient has SOB on walking to bathroom CBC and chemistries normal Chest x-ray shows hyperinflation no infiltrate iv steroid added Unsteady gait , mild tremors PT IS UNSTABLE FOR [facility] SHORT TERM REHAB Objective - Vital Signs/Intake and Output Vital Signs (last 24 hours): Temp Pulse Resp BP Pulse Ox 97.1 F L 69 20 112/66 98 01/01/19 08:12 01/01/19 08:12 01/01/19 08:12 01/01/19 08:12 01/01/19 08:12 Intake and Output: 12/31/18 01/01/19 23:59 11:59 Intake Total 1100 360 Balance 1100 360 - Medications Medications: Current Medications Acetaminophen (Tylenol 325mg Tab) 650 mg PO Q6 PRN PRN Reason: Pain, moderate (4-7) Last Admin: 12/31/18 18:22 Dose: 650 mg Al Hydrox/Mg Hydrox/Simethicone (Maalox 30 Ml) 30 ml PO Q6H PRN PRN Reason: Indigestion / Heartburn Last Admin: 12/28/18 20:13 Dose: 30 ml Albuterol (Ventolin Hfa 90 Mcg/Actuation (8 G)) 1 puff INH RQ4 PRN PRN Reason: Shortness of Breath Albuterol/Ipratropium (Duoneb 3 Mg/0.5 Mg (3 Ml) Ud) 3 ml INH RQ4 [facility] Last Admin: 01/01/19 04:00 Dose: Not Given Gabapentin (Neurontin) 100 mg PO TID [facility] Last Admin: 01/01/19 10:04 Dose: 100 mg Guaifenesin (Mucinex La) 600 mg PO BID PRN PRN Reason: Cough Last Admin: 12/28/18 14:00 Dose: 600 mg Methylprednisolone (Solu-Medrol) 40 mg IV Q8H [facility] Last Admin: 01/01/19 10:00 Dose: 40 mg Mirtazapine (Remeron) 30 mg PO HS [facility] Last Admin: 12/31/18 21:36 Dose: 30 mg Multivitamins (Hexavitamin) 1 tab PO DAILY [facility] Last Admin: 01/01/19 10:04 Dose: 1 tab Mupirocin (Bactroban Ointment) 0 gm TOP BID [facility] Last Admin: 01/01/19 10:05 Dose: 1 applic Pantoprazole Sodium (Protonix Ec Tab) 40 mg PO DAILY [facility] Last Admin: 01/01/19 10:04 Dose: 40 mg Thiamine HCl (Vitamin B1 Tab) 100 mg PO DAILY [facility] Last Admin: 01/01/19 10:04 Dose: 100 mg Trazodone HCl (Desyrel) 50 mg PO HS PRN PRN Reason: Insomnia Last Admin: 12/31/18 21:39 Dose: 50 mg - Labs Labs: 12/23/18 11:28 12/23/18 11:28 PT 10.9 SECONDS (9.7-12.2) 12/18/18 16:00 INR 1.0 12/18/18 16:00 APTT 33 SECONDS (21-34) 12/18/18 16:00 Assessment and Plan (1) Hypotension Status: Acute (2) Alcohol intoxication Status: Acute (3) COPD (chronic obstructive pulmonary disease) Status: Chronic (4) Depression Status: Chronic
[2019-01-01 16:20] VITALS: BP 174/91; PULSE 103; TEMP 98.1; O2SAT 94
[2019-01-01] MEDS ORDERED: MethylPREDNISolone 40 mg Vial IV SCH (22:00)
--- NOTE | 2019-01-06 12:19 | CP.PCM.DIS ---
Provider - Provider Date of Admission: 12/18/18 17:42 Attending physician: Susannah Mcgill MD Consults: 12/25/18 12:13 Discharge Planning [Case Management Referral] Routine Comment: Physician Instructions: BLAS LANDEROS Reason For Exam: Reason for Referral: Discharge Planning Time Spent in preparation of Discharge (in minutes): 35 Diagnosis - Discharge Diagnosis (1) Hypotension Status: Acute (2) Alcohol intoxication Status: Acute (3) COPD (chronic obstructive pulmonary disease) Status: Chronic (4) Depression Status: Chronic Hospital Course - Lab Results Lab Results: Micro Results 12/21/18 17:16 Naris MRSA Culture - Final MRSA NOT DETECTED 12/18/18 21:10 Nose MRSA Culture (Admit) - Final MRSA NOT DETECTED Most Recent Lab Values WBC 7.1 K/uL (4.8-10.8) 12/23/18 11:28 RBC 3.68 Mil/uL (4.40-5.90) L 12/23/18 11:28 Hgb 10.2 g/dL (12.0-18.0) L 12/23/18 11:28 Hct 31.2 % (35.0-51.0) L 12/23/18 11:28 MCV 85.0 fL (80.0-94.0) 12/23/18 11:28 MCH 27.7 pg (27.0-31.0) 12/23/18 11:28 MCHC 32.7 g/dL (33.0-37.0) L 12/23/18 11:28 RDW 19.7 % (11.5-14.5) H 12/23/18 11:28 Plt Count 307 K/uL (130-400) 12/23/18 11:28 MPV 7.8 fL (7.2-11.7) 12/23/18 11:28 Neut % (Auto) 70.7 % (50.0-75.0) 12/22/18 07:09 Lymph % (Auto) 18.7 % (20.0-40.0) L 12/22/18 07:09 Cook % (Auto) 8.3 % (0.0-10.0) 12/22/18 07:09 Eos % (Auto) 2.1 % (0.0-4.0) 12/22/18 07:09 Baso % (Auto) 0.2 % (0.0-2.0) 12/22/18 07:09 Neut # (Auto) 4.5 K/uL (1.8-7.0) 12/22/18 07:09 Lymph # (Auto) 1.2 K/uL (1.0-4.3) 12/22/18 07:09 Cook # (Auto) 0.5 K/uL (0.0-0.8) 12/22/18 07:09 Eos # (Auto) 0.1 K/uL (0.0-0.7) 12/22/18 07:09 Baso # (Auto) 0.0 K/uL (0.0-0.2) 12/22/18 07:09 PT 10.9 SECONDS (9.7-12.2) 12/18/18 16:00 INR 1.0 12/18/18 16:00 APTT 33 SECONDS (21-34) 12/18/18 16:00 pO2 66 mm/Hg (30-55) H 12/18/18 18:15 VBG pH 7.22 (7.32-7.43) L 12/18/18 18:15 VBG pCO2 67 mmHg (40-60) H* 12/18/18 18:15 VBG HCO3 23.2 mmol/L 12/18/18 18:15 VBG Total CO2 29.5 mmol/L (22-28) H 12/18/18 18:15 VBG O2 Sat (Calc) 94.0 % (40-65) H 12/18/18 18:15 VBG Base Excess -1.9 mmol/L (0.0-2.0) L 12/18/18 18:15 VBG Potassium 3.8 mmol/L (3.6-5.2) 12/18/18 18:15 Sodium 138.0 mmol/l (132-148) 12/18/18 18:15 Chloride 106.0 mmol/L (98-107) 12/18/18 18:15 Glucose 130 mg/dl (75-110) H 12/18/18 18:15 Lactate 1.7 mmol/L (0.7-2.1) 12/18/18 18:15 Crit Value Called To garry Ellis 12/18/18 18:15 Crit Value Called By Jaydon fitzpatrick 12/18/18 18:15 Crit Value Read Back Y 12/18/18 18:15 Blood Gas Notified Time 181812/18/18 18:15 Sodium 137 mmol/L (132-148) 12/23/18 11:28 Potassium 4.1 mmol/L (3.6-5.2) 12/23/18 11:28 Chloride 96 mmol/L (98-107) L 12/23/18 11:28 Carbon Dioxide 33 mmol/L (22-30) H 12/23/18 11:28 Anion Gap 12 (10-20) 12/23/18 11:28 BUN 12 mg/dL (9-20) 12/23/18 11:28 Creatinine 0.6 mg/dL (0.8-1.5) L 12/23/18 11:28 Est GFR ( Amer) > 60 12/23/18 11:28 Est GFR (Non-Af Amer) > 60 12/23/18 11:28 POC Glucose (mg/dL) 142 mg/dL (65-110) H 12/26/18 16:40 Random Glucose 105 mg/dL (75-110) 12/23/18 11:28 Calcium 9.0 mg/dl (8.6-10.4) 12/23/18 11:28 Phosphorus 4.8 mg/dL (2.5-4.5) H 12/23/18 11:28 Magnesium 1.9 mg/dL (1.6-2.3) 12/23/18 11:28 Total Bilirubin 0.3 mg/dL (0.2-1.3) 12/23/18 11:28 AST 20 U/L (17-59) 12/23/18 11:28 ALT 13 U/L (21-72) L D 12/23/18 11:28 Alkaline Phosphatase 71 U/L (38-126) 12/23/18 11:28 Ammonia 13 umol/L (9-33) 12/18/18 16:10 Troponin I < 0.0120 ng/mL (0.00-0.120) 12/18/18 16:10 NT-Pro-B Natriuret Pep 278 pg/mL (0-900) 12/23/18 11:28 Total Protein 6.7 g/dL (6.3-8.3) 12/23/18 11:28 Albumin 3.9 g/dL (3.5-5.0) 12/23/18 11:28 Globulin 2.8 gm/dL (2.2-3.9) 12/23/18 11:28 Albumin/Globulin Ratio 1.4 (1.0-2.1) 12/23/18 11:28 Lipase 56 U/L (23-300) 12/18/18 16:10 TSH 3rd Generation 1.95 mIU/L (0.46-4.68) 12/18/18 18:23 Venous Blood Potassium 3.8 mmol/L (3.6-5.2) 12/18/18 18:15 Urine Color Yellow (YELLOW) 12/18/18 15:52 Urine Clarity Clear (Clear) 12/18/18 15:52 Urine pH 6.0 (5.0-8.0) 12/18/18 15:52 Ur Specific Paxton 1.010 (1.003-1.030) 12/18/18 15:52 Urine Protein Negative mg/dL (NEGATIVE) 12/18/18 15:52 Urine Glucose (UA) Normal mg/dL (Normal) 12/18/18 15:52 Urine Ketones Negative mg/dL (NEGATIVE) 12/18/18 15:52 Urine Blood Negative (NEGATIVE) 12/18/18 15:52 Urine Nitrate Negative (NEGATIVE) 12/18/18 15:52 Urine Bilirubin Negative (NEGATIVE) 12/18/18 15:52 Urine Urobilinogen Normal mg/dL (0.2-1.0) 12/18/18 15:52 Ur Leukocyte Esterase Neg James/uL (Negative) 12/18/18 15:52 Urine WBC (Auto) < 1 /hpf (0-5) 12/18/18 15:52 Urine RBC (Auto) 1 /hpf (0-3) 12/18/18 15:52 Salicylates < 1.0 mg/dL 1 12/18/18 18:30 Urine Opiates Screen Negative (NEGATIVE) 12/18/18 15:47 Urine Methadone Screen Negative (NEGATIVE) 12/18/18 15:47 Acetaminophen < 10.0 ug/mL (10.0-30.0) L 12/18/18 18:30 Ur Barbiturates Screen Negative (NEGATIVE) 12/18/18 15:47 Ur Phencyclidine Scrn Negative (NEGATIVE) 12/18/18 15:47 Ur Amphetamines Screen Negative (NEGATIVE) 12/18/18 15:47 U Benzodiazepines Scrn Negative (NEGATIVE) 12/18/18 15:47 U Oth Cocaine Metabols Negative (NEGATIVE) 12/18/18 15:47 U Cannabinoids Screen Negative (NEGATIVE) 12/18/18 15:47 Alcohol, Quantitative 318 mg/dl (0-10) H 12/18/18 15:47 - Hospital Course Hospital Course: 58 year old male with pmhx of Anxiety, asthma, bronchitis, COPD, depression, HTN, was found unresponsive, brought by EMS who states was hypotensive, and given fluids on site, as per ED physician, patient was awake at time of arrival, but nonverbal. Patient has elevated alcohol levels and hypotensive in the ED. patient was responding to painful stimuli. Patient's blood pressure was in the 70s systolic. Patient was admitted to ICU. After IV fluids patient blood pressure st 102 systolic On chart review it was deteed the patient was discharged from the psych unit on the day of admission. After the discharge patient went and drank alcohol, alcohol level was over 200 and return back to the emergency room. Patient has been multiple for similar complaints and also COPD with exacer bation. Patient is noncompliant to medication and medical followup. pt was admitted to icu AND RESPODED TO IV FLUIDS AND LIBRIUM , IV STEROIDS AND NEB PT HAD NO FURTHER SOB AND STEROID WAS WEANED OFF PT. WAS AWAITING FOR SHORT TERM REHAB AND SIGNED OUT AMA Discharge Exam - Head Exam Head Exam: ATRAUMATIC Discharge Plan - Follow Up Plan Condition: SERIOUS Disposition: AGAINST MEDICAL ADVICE Instructions: Altered Mental Status (GEN) Additional Instructions: Follow up[ with pmd.
== END 2019-01-01 18:45 | disposition left against medical advice (07) | DRG 144 ==
LOC: C.ER 15:21 → C.9E 17:42 → C.9I 18:34 → C.3T 12-21 16:45
PROVIDERS: ADMIT Internal Medicine Cardiovascular Disease; ATTEND Internal Medicine Cardiovascular Disease
DX: I95.9 Hypotension, unspecified (principal); F10.129 Alcohol abuse with intoxication, unspecified; R41.82 Altered mental status, unspecified; J44.9 Chronic obstructive pulmonary disease, unspecified; R73.9 Hyperglycemia, unspecified; I10 Essential (primary) hypertension; D64.9 Anemia, unspecified; F32.9 Major depressive disorder, single episode, unspecified; F17.210 Nicotine dependence, cigarettes, uncomplicated; F41.9 Anxiety disorder, unspecified; Y90.8 Blood alcohol level of 240 mg/100 ml or more; Z87.01 Personal history of pneumonia (recurrent); Z87.11 Personal history of peptic ulcer disease; Z90.49 Acquired absence of other specified parts of digestive tract; Z91.14 Patient's other noncompliance with medication regimen

== ENCOUNTER 2019-01-02 00:09 | Inpatient (IN) | payer MEDICAID ==
[2019-01-02 00:09] VITALS: BMI 18.8
[2019-01-02] MEDS ORDERED: Albuterol-Ipratrop 3 mg / 0.5 (3 ml) UD ONE ×3 (00:23→02:49)
[2019-01-02] MEDS ORDERED: Sodium Chloride 0.9% 1,000 ML IV ONE (00:39)
[2019-01-02] MEDS ORDERED: Albuterol-Ipratrop 3 mg / 0.5 (3 ml) UD INH STA ×3 (00:40)
--- NOTE | 2019-01-02 00:41 | C.PDOC ---
History Of Present Illness 58 year old male brought in via EMS after being found unresponsive overdosed on heroin. Narcan administered enroute, on arrival patient is is alert, wheezing, Hx of COPD and asthma. Chief Complaint (Nursing): Substance Abuse History Per: Patient, EMS History/Exam Limitations: no limitations Onset/Duration Of Symptoms: Hrs Current Symptoms Are (Timing): Still Present Suicide/Self Injury Attempted (Context): None Modifying Factor(s): Other (Heroin) Involuntary Hold By: None Recent travel outside of the [place]: No Past Medical History Reviewed: Historical Data, Nursing Documentation, Vital Signs Vital Signs: Last Vital Signs Temp 98.1 F 01/02/19 00:26 Pulse 113 H 01/02/19 00:26 Resp 26 H 01/02/19 00:26 BP 167/89 H 01/02/19 00:26 Pulse Ox 96 01/02/19 00:26 - Medical History PMH: Anxiety, Asthma, Bronchitis, COPD, Depression, Gastritis, Gastrointestinal Ulcer, HTN, Pneumonia Denies: Alzheimer's Disease, Anemia, Arthritis, Atrial Fibrillation, Bipolar Disorder, Cardia Arrhythmia, CHF, Crohn's Disease, Dementia, Diabetes, Diverticulitis, Emphysema, Fractures, Gall Bladder Disease, Hepatitis, HIV, Hypercholesterolemia, Hyperthyroidism, Hypothyroidism, Kidney Stones, Migraine, Mitral Valve Prolapse, Multiple Sclerosis, Osteoporosis, Pancreatitis, Paranoia, Parkinson's Disease, Peripheral Edema, Post Traumatic Stress Disorder, Pulmonary Embolism, Chronic Kidney Disease, Rheumatoid Arthritis, Schizophrenia, Seizures, Sickle Cell Disease, Sexually Transmitted Disease, Sleep Apnea, TIA Surgical History: Appendectomy, Tonsillectomy Denies: CABG, Carotid Endarterectomy, Cholecystectomy, Coronary Stent, P acemaker - [facility] Procedures CONTR ABD ARTERIOGRM NEC (05/20/07) DETOXIFICATION SERVICES FOR SUBSTANCE ABUSE TREATMENT (12/03/18) ESOPHAGOGASTRODUODENOSCOPY [EGD] W/CLOSED BIOPSY (05/20/07) EXCISION OF LOWER ESOPHAGUS, ENDO, DIAGN (05/21/17) EXTIRPATION OF MATTER FROM LOWER ESOPHAGUS, ENDO (05/21/17) GROUP LAST CLEANER FOR SUBSTANCE ABUSE TREATMENT, PSYCHOEDUCATION (12/03/18) GROUP LAST CLEANER FOR SUBSTANCE ABUSE, COGNITIVE BEHAVIORAL (12/03/18) GROUP PSYCHOTHERAPY (12/03/18) INDIV LAST CLEANER FOR SUBSTANCE ABUSE TREATMENT, PSYCHOEDUCATION (01/14/17) INDIV LAST CLEANER FOR SUBSTANCE ABUSE, COGNITIVE BEHAVIORAL (01/14/17) INDIV PSYCHOTHERAPY FOR SUBSTANCE ABUSE TREATMENT, SUPPORT (12/03/18) INDIV PSYCHOTHERAPY FOR SUBSTANCE ABUSE, COGNITIV BEHAVIORAL (12/03/18) INDIV PSYCHOTHERAPY FOR SUBSTANCE ABUSE, PSYCHOEDUCATION (12/03/18) INDIVIDUAL PSYCHOTHERAPY, COGNITIVE-BEHAVIORAL (12/03/18) INDIVIDUAL PSYCHOTHERAPY, SUPPORTIVE (12/03/18) INJECT/INFUSE NEC (03/20/12) MEDICATION MANAGEMENT (03/12/17) MEDS MGMT FOR SUBSTANCE ABUSE TREATMENT, OTH REPL MED (03/12/17) Family History: States: Unknown Family Hx - Social History Hx Tobacco Use: Yes Hx Alcohol Use: Yes Hx Substance Use: Yes - Immunization History Hx Tetanus Toxoid Vaccination: (unk) Hx Influenza Vaccination: (unk) Hx Pneumococcal Vaccination: (unk) Review Of Systems Constitutional: Negative for: Fever, Chills Cardiovascular: Negative for: Chest Pain, Palpitations Respiratory: Negative for: Cough, Shortness of Breath Gastrointestinal: Negative for: Nausea, Vomiting Neurological: Negative for: Weakness, Numbness Physical Exam - Physical Exam Appears: Non-toxic, Other (Alert, conscious, talking) Skin: Warm, Dry Head: Atraumatic, Normacephalic Eye(s): bilateral: Normal Inspection, PERRL, EOMI Oral Mucosa: Moist Neck: Normal, No Midline Cervical Tenderness, No Paracervical Tenderness, Supple Chest: Symmetrical, No Tenderness Cardiovascular: Rhythm Regular Respiratory: No Rales, No Rhonchi, Wheezing (Bilateral expiratory) Gastrointestinal/Abdominal: Soft, No Tenderness Extremity: Normal ROM (x4), Other (Soft tissue swelling to radial aspect of left wrist) Neurological/Psych: Oriented x3, Normal Speech ED Course And Treatment - Laboratory Results Result Diagrams: 01/02/19 04:27 01/02/19 01:29 O2 Sat by Pulse Oximetry: 96 (room air) Pulse Ox Interpretation: Normal - Radiology CXR: Interpreted by Me, Viewed By Me CXR Interpretation: Yes: No Acute Disease. No: Infiltrates (normal chest film) Progress Note: EKG, blood work, CXR, and urinalysis ordered. IV fluids, solumedrol, and duoneb administered. Disposition Discussed With : Dino Gonzalez Doctor Will See Patient In The: Hospital Counseled Patient/Family Regarding: Diagnosis - Disposition Disposition: HOSPITALIZED Disposition Time: 04:38 Condition: STABLE Forms: [employer] [facility] (Azerbaijani) - Clinical Impression Clinical Impression: Drug abuse, Alcohol abuse, Soft tissue abscess - Scribe Statement The provider has reviewed the documentation as recorded by the Scribkeri Gamboa All medical record entries made by the Petersonibe were at my direction and pe rsonally dictated by me. I have reviewed the chart and agree that the record accurately reflects my personal performance of the history, physical exam, medical decision making, and the department course for this patient. I have also personally directed, reviewed, and agree with the discharge instructions and disposition.
[2019-01-02 01:01] LABS: MEAN CELL VOLUME 86.6 fL (80.0-94.0); RBC 3.76 Mil/uL (4.40-5.90)
[2019-01-02 01:10] LABS: BASO # 0.2 K/uL (0.0-0.2); BASO % 0.6 % (0.0-2.0); HEMOGLOBIN 10.3 g/dL (12.0-18.0); LYMPH # 3.8 K/uL (1.0-4.3); LYMPH % 12.5 % (20.0-40.0); MEAN CORPUSCULAR HEMOGLOBIN 27.3 pg (27.0-31.0); MEAN CORPUSCULAR HGB CONC 31.6 g/dL (33.0-37.0); MONO # 1.8 K/uL (0.0-0.8); NEUT # 24.5 K/uL (1.8-7.0); NEUT % 80.9 % (50.0-75.0); NRBC % 0.3 % (0.0-2.0); PLATELET COUNT 483 K/uL (130-400); RED CELL DISTRIBUTION WIDTH 20.3 % (11.5-14.5); WHITE BLOOD COUNT 30.3 K/uL (4.8-10.8)
[2019-01-02 01:51] LABS: ALB/GLOB RATIO 1.6 (1.0-2.1); ALBUMIN 3.7 g/dL (3.5-5.0); ALT/SGPT 27 U/L (21-72); AST/SGOT 30 U/L (17-59); BLOOD UREA NITROGEN 41 mg/dL (9-20); CALCIUM 8.2 mg/dl (8.6-10.4); GFR NON-AFRICAN AMERICAN > 60
[2019-01-02 03:28] LABS: ANISOCYTOSIS SLIGHT; BANDS 5 % (0-2); LYMPHOCYTE 13 % (20-40); METAMYELOCYTE 1 % (0-0); MONOCYTE 4 % (0-10); MYELOCYTE 3 % (0-0); NEUTROPHIL 73 % (50-75); NUCLEATED RED BLOOD CELL 2 % (0-0); PLATELET ESTIMATE NORMAL (NORMAL); POIKILOCYTOSIS SLIGHT; POLYCHROMIC SLIGHT; REACTIVE LYMPHOCYTES 1 % (0-0); TOTAL CELLS COUNTED 100
[2019-01-02] MEDS ORDERED: cefTRIAXone IV 1 gm in Dextros 50 ML IVPB ONE (04:04)
[2019-01-02 04:22] LABS: VENOUS BLOOD GAS BASE EXCESS 7.9 mmol/L (0.0-2.0); VENOUS BLOOD GAS PCO2 63 mmHg (40-60); VENOUS BLOOD GAS PO2 41 mm/Hg (30-55); VENOUS BLOOD PH 7.36 (7.32-7.43)
[2019-01-02 04:32] LABS: BASO % 0.2 % (0.0-2.0); HEMOGLOBIN 9.6 g/dL (12.0-18.0); LYMPH # 1.8 K/uL (1.0-4.3); LYMPH % 8.3 % (20.0-40.0); MEAN CELL VOLUME 86.4 fL (80.0-94.0); MEAN CORPUSCULAR HEMOGLOBIN 27.1 pg (27.0-31.0); MEAN CORPUSCULAR HGB CONC 31.4 g/dL (33.0-37.0); MONO # 0.8 K/uL (0.0-0.8); MONO % 3.9 % (0.0-10.0); NEUT % 87.6 % (50.0-75.0); NRBC % 0.1 % (0.0-2.0); RBC 3.55 Mil/uL (4.40-5.90); WHITE BLOOD COUNT 21.7 K/uL (4.8-10.8)
[2019-01-02 04:33] LABS: URINE BACTERIA RARE (<OCC); URINE BILIRUBIN NEGATIVE (NEGATIVE); URINE BLOOD NEGATIVE (NEGATIVE); URINE CLARITY Clear (Clear); URINE COLOR Yellow (YELLOW); URINE GLUCOSE (UA) NORMAL (Normal); URINE LEUKOCYTE ESTERASE NEG Leu/uL (Negative); URINE PROTEIN NEGATIVE (NEGATIVE); URINE UROBILINOGEN NORMAL mg/dL (0.2-1.0)
[2019-01-02 05:24] LABS: BARBITURATES, UR NEGATIVE (NEGATIVE); PHENCYCLIDINE, UR NEGATIVE (NEGATIVE)
[2019-01-02 05:33] LABS: BENZODIAZEPINES, UR POSITIVE (NEGATIVE); OPIATES, UR POSITIVE (NEGATIVE)
--- NOTE | 2019-01-02 09:22 | RAD ---
Date of service: 01/02/2019 PROCEDURE: CHEST RADIOGRAPH, 1 VIEW HISTORY: Detox/Psy COMPARISON: 12/23/2018. FINDINGS: LUNGS: The lungs are well inflated. There is bibasilar atelectasis. No focal consolidation. PLEURA: No pneumothorax or pleural effusion. CARDIOVASCULAR: The heart is normal in size. No aortic atherosclerotic calcifications present. OSSEOUS STRUCTURES: Within normal limits for the patient's age. VISUALIZED UPPER ABDOMEN: Normal. OTHER FINDINGS: None. IMPRESSION: No active pulmonary disease.
--- NOTE | 2019-01-02 09:52 | CP.PCM.PN ---
Subjective - Date & Time of Evaluation Date of Evaluation: 01/02/19 Time of Evaluation: 09:42 - Subjective Subjective: Progress Note for Dr. Gonzalez 58 year old male with a past medical history of COPD, HTN, depression, polysubstance abuse (tobacco, alcohol, marijuana), BPH, who was recently hospitalized here for COPD exacerbation and had signed out against medical advice a day prior. Patient was found unconscious with pin point pupils by the [employer]. EMS administer Narcan on site and patient became conscious shortly after. Patient admits to using 2 bags of heroin and some alcohol. He complains of wheezing and shortness of breath. He denies having fevers, nausea, vomiting, hemoptysis, chest pain, palpitations, dysuria, constipation, and diarrhea. 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 PMHx: COPD, HTN, depression, polysubstance abuse (tobacco, alcohol, marijuana), BPH, chronic pain/neuropathy PSHx: 3 surgeries related to peptic ulcer disease/ perforated ulcer FamHx: unknown, adopted SocialHx: Current smoker (11/28ppd; previously smoked 1ppd since he was 10 year old); smokes marijuana once per month, otherwise, denies other ellicit drug use; drinks 1 24oz can of beer daily (last drink was one beer prior to admission) Allergies: NKDA Objective - Vital Signs/Intake and Output Vital Signs (last 24 hours): Temp Pulse Resp BP Pulse Ox 98.5 F 93 H 20 148/84 95 01/02/19 08:35 01/02/19 08:35 01/02/19 08:46 01/02/19 08:35 01/02/19 08:35 - Medications Medications: Current Medications Albuterol/Ipratropium (Duoneb 3 Mg/0.5 Mg (3 Ml) Ud) 3 ml INH RQ4 FERNANDA Enoxaparin Sodium (Lovenox) 40 mg SC DAILY FERNANDA Sodium Chloride (Sodium Chloride 0.9%) 1,000 mls @ 100 mls/hr IV .Q10H ONE Stop: 01/02/19 10:38 Last Admin: 01/02/19 00:45 Dose: 100 mls/hr Azithromycin 500 mg/ Sodium (Chloride) 250 mls @ 250 mls/hr IVPB DAILY FERNANDA; Protocol Ketorolac Tromethamine (Toradol) 30 mg IVP Q8 PRN PRN Reason: pain Methylprednisolone (Solu-Medrol) 40 mg IV Q12 FERNANDA Pantoprazole Sodium (Protonix Inj) 40 mg IVP DAILY FERNANDA Zolpidem Tartrate (Ambien) 5 mg PO HS PRN PRN Reason: Insomnia - Labs Labs: 01/02/19 04:27 01/02/19 01:29 - Additional Findings Additional findings: - Constitutional Appears: No Acute Distress, Chronically Ill - Head Exam Head Exam: NORMAL INSPECTION, NORMOCEPHALIC - Eye Exam Eye Exam: EOMI, Normal appearance, PERRL Pupil Exam: NORMAL ACCOMODATION - ENT Exam ENT Exam: Normal Exam - Respiratory Exam Respiratory Exam: Decreased Breath Sounds, Rhonchi, Bilateral wheezing - Cardiovascular Exam Cardiovascular Exam: +S1, +S2 - GI/Abdominal Exam GI & Abdominal Exam: Soft, Normal Bowel Sounds. absent: Distended, Tenderness - Extremities Exam Extremities Exam: Left forearm mass, 2cm in diameter, tender to touch, no active drainage. absent: Pedal Edema, Tenderness - Neurological Exam Neurological Exam: Alert, Awake, Oriented x3 - Psychiatric Exam Psychiatric exam: Normal Affect, Normal Mood - Skin Skin Exam: Dry, Intact, Normal Color, Warm Assessment and Plan - Assessment and Plan (Free Text) Assessment: COPD exacerbation Chest X-ray No active pulmonary disease. COPD. Medications: - Duonebs 3ML INH RQ4H - Solu-medrol 40mg IV Q12H - Robitussin 100mg PO BID PRN - Azithromycin 500mg IV daily (started 01/02) Leukocytosis -Down trending -Afebrile -Normal CXR -Pending blood cultures Polysubstance abuse -S/P Narcan 2mg intranasal -urine tox positive for alcohol and opiate -Multivitamin, thiamine Left forearm mass -Surgery consulted, Dr. Lagunas -Warm compress prn Depression Medications: - Remeron 15mg PO HS Chronic pain - Toradol 30mg IV Q8 prn HTN - Lisinopril 10mg PO daily BPH - Flomax 0.4mg PO daily Insomnia -Ambien 5mg prn Ppx: - GI: Protonix 40mg PO daily - DVT: Lovenox 40mg SC daily Case discussed with Dr. Gonzalez
[2019-01-02] MEDS: Enoxaparin 40 mg Syringe SC SCH (10:14)
[2019-01-02] MEDS: Albuterol-Ipratrop 3 mg / 0.5 (3 ml) UD INH SCH ×4 (10:34→20:11)
[2019-01-02] MEDS: Azithromycin 500 MG in Sodium Chloride 0.9% 250 ML IVPB SCH (10:44)
--- NOTE | 2019-01-02 11:41 | PCM.PSYCH ---
Initial Psychiatric Evaluation - Initial Psychiatric Evaluation Type of Admission: Voluntary Legal Status: Capacity Chief Complaint (in patient's own words): "I passed out" History of Present Illness and Precipitating Events: Patient is a 58 -year-old, male who is , unemployed, and homeless. He has no children and receives his income from [employer] due to his COPD. Consultation was asked for his depression and alcoholism. Patient is well-known from numerous ER visits and psych and detox admissions. He was brought in by ambulance after being found unconscious by the [employer]. Narcan was administered and patient became conscious shortly after. He was just discharged from the hospital and that was also after another OD on the day of discharge. The pt is known to admit to hating shelters and refusing rehabs, but yet asking for a housing for him. And since this is unattainable easily (and while he keeps moving from one admission to another), he gets depressed and "self-medicates" with alcohol and sometimes with heroin. Of note, he did get an apartment once and he was dismissed b/c of bringing in people and drinking there. Patient reports drinking 1 pint of alcohol a day, but he was out only 1 day. He states that his first drink was at age 10. He has an extensive drinking history for a very long time with a history of DTs, seizures, and blackouts. He admits to using 2 bags of heroin, intranasally yesterday. He states that he has a history of 2 heroin overdoses in the past and has never tried methadone or suboxone. Patient states that he smokes one joint of marijuana a month and about 0.5 to 1 pack per day of cigarettes. Patient has a history of severe depression but denies severely depressed mood today. He states that he has had several suicidal ideations with plans to run in front of a truck in the past, prior admission. He now denies any suicidal or homicidal ideation, as well as, visual and auditory hallucinations, and paranoia. Past Psychiatric History: Major Depressive Disorder, recurrent, severe. Many psych and detox admissions. Family Psych History: unknown PMHx: HTN, COPD, BPH, GERD Meds: Zoloft, lexapro, gabapentin Current Medications: Active Medications Generic Name Dose Route Start Last Admin Trade Name Freq PRN Reason Stop Dose Admin Albuterol/Ipratropium 3 ml 01/02/19 08:00 01/02/19 11:00 Duoneb 3 Mg/0.5 Mg (3 Ml) Ud INH 3 ml RQ4 FERNANDA Administration Enoxaparin Sodium 40 mg 01/02/19 10:00 01/02/19 10:14 Lovenox SC 40 mg DAILY FERNANDA Administration Guaifenesin 100 mg 01/02/19 10:16 Robitussin PO Q4H PRN Cough Azithromycin 500 mg/ Sodium 250 mls @ 250 mls/hr 01/02/19 10:00 01/02/19 10:44 Chloride IVPB 250 mls/hr DAILY [facility] Administration Protocol Ketorolac Tromethamine 30 mg 01/02/19 04:46 Toradol IVP Q8 PRN pain Lisinopril 10 mg 01/03/19 10:00 Zestril PO DAILY [facility] Methylprednisolone 40 mg 01/02/19 22:00 Solu-Medrol IV Q12 [facility] Mirtazapine 30 mg 01/02/19 22:00 Remeron PO HS [facility] Multivitamins 1 tab 01/03/19 10:00 Hexavitamin PO DAILY [facility] Pantoprazole Sodium 40 mg 01/02/19 10:00 01/02/19 10:13 Protonix Inj IVP 40 mg DAILY [facility] Administration Tamsulosin HCl 0.4 mg 01/03/19 10:00 Flomax PO DAILY [facility] Thiamine HCl 100 mg 01/03/19 10:00 Vitamin B1 Tab PO DAILY [facility] Zolpidem Tartrate 5 mg 01/02/19 04:46 Ambien PO HS PRN Insomnia Past Psychiatric History - Past Psychiatric History Previous Treatment History: Inpatient Pertinent Medical Hx (Current Medical&Sleep Prob, Allergies): Allergies Allergy/AdvReac Type Severity Reaction Status Date / Time No Known Allergies Allergy Verified 01/02/19 00:32 Albuterol HFA [Ventolin HFA 90 mcg/actuation (8 g)] 2 puff IH [id number] #1 puff 11/28/18 Gabapentin [Neurontin] 100 mg PO TID #90 cap 11/28/18 Multivitamins [Hexavitamin] 1 tab PO DAILY #30 tab 11/28/18 Thiamine [Vitamin B1 Tab] 100 mg PO DAILY #30 tab 11/28/18 Albuterol/Ipratropium [Duoneb 3 mg/0.5 mg (3 ml) UD] 3 ml INH RQ6 PRN #1 neb 12/18/18 Escitalopram [Lexapro] 20 mg PO DAILY #30 tab 12/18/18 Fluticasone/Vilanterol 100/25 [Breo Ellipta 100-25 MCG INH] 1 puff INH RQD #1 puff 12/18/18 Gabapentin [Neurontin] 300 mg PO TID #90 cap 12/18/18 Lisinopril [Zestril] 10 mg PO DAILY #30 tab 12/18/18 Mirtazapine [Remeron] 30 mg PO HS #30 tab 12/18/18 Pantoprazole [Protonix EC Tab] 40 mg PO DAILY #30 ect 12/18/18 Tamsulosin [Flomax] 0.4 mg PO DAILY #30 cap 12/18/18 traZODone [Desyrel] 50 mg PO HS PRN #30 tab 12/18/18 Review of Systems - Psychiatric Psychiatric: Abnormal Sleep Pattern, Anhedonia, Anxiety, Depression, Difficulty Concentrating, Panic Attacks. absent: Homicidal Ideation, Paranoia, Suicidal Ideation Mental Status Examination - Personal Presentation Personal Presentation: Looks older than stated age - Affect Affect: Constricted - Motor Activity Motor Activity: Calm - Reliability in Providing Information Reliability in Providing Information: Good - Speech Speech: Organized - Mood Mood: Depressed, Anxious - Formal Thought Process Formal Thought Process: No Impairment - Cognitive Functions Orientation: Person, Place, Situation, Time Sensorium: Alert Attention/Concentration: Attentive Estimate of Intelligence: Average Judgement: Intact, as evidence by: Insight regarding need for hospitalization Memory: Recent intact, as evidence by: Ability to recall events of the day, Remote intact, as evidenced by: Abilit to recall sig. life events - Risk Risk: Withdrawal, Diminished functioning - Strength & Assets Inventory Strength & Assets Inventory: Cooperative - Limitations Limitations: Living alone (homeless) DSM 5 DX - DSM 5 DSM 5 Diagnosis: Major Depressive Disorder, recurrent, severe Alcohol use disorder, severe Opioid use disorder, moderate LEDA Personality disorder - Recommended/Plan of Treatment Treatment Recommendations and Plan of Treatment: No need for deto as he was out only 1 day. Gabapentin for augmentation As needed medications All risks, benefits and alternatives of the meds discussed, and the pt agreed and understood. Supportive therapy and psychoeducation TN for abstinence Encourage MAT Refer to rehab such as [facility], [facility] or IOP, and self-help groups Teach healthy lifestyle methods, i.e. diet, exercise, meditation Smoking cessation with TN Nicotine patch 34 min Prognosis: good with treatment - Smoking Cessation Smoking Cessation Initiated: Yes
[2019-01-02] MEDS: MethylPREDNISolone 40 mg Vial IV SCH (22:25)
[2019-01-03] MEDS: Albuterol-Ipratrop 3 mg / 0.5 (3 ml) UD INH SCH ×5 (01:23→19:53)
[2019-01-03 07:24] LABS: BASO % 0.3 % (0.0-2.0); LYMPH # 1.3 K/uL (1.0-4.3); MEAN CELL VOLUME 85.3 fL (80.0-94.0); MEAN CORPUSCULAR HEMOGLOBIN 27.7 pg (27.0-31.0); MEAN CORPUSCULAR HGB CONC 32.5 g/dL (33.0-37.0); MEAN PLATELET VOLUME 7.9 fL (7.2-11.7); MONO # 0.6 K/uL (0.0-0.8); MONO % 4.3 % (0.0-10.0); NEUT % 86.4 % (50.0-75.0); NRBC % 0.1 % (0.0-2.0); PLATELET COUNT 349 K/uL (130-400); RBC 3.26 Mil/uL (4.40-5.90)
[2019-01-03 07:44] LABS: ALB/GLOB RATIO 1.4 (1.0-2.1); ALBUMIN 2.8 g/dL (3.5-5.0); ALT/SGPT 23 U/L (21-72); AST/SGOT 35 U/L (17-59); BLOOD UREA NITROGEN 30 mg/dL (9-20); GFR NON-AFRICAN AMERICAN > 60
[2019-01-03 09:20] LABS: BANDS 7 % (0-2); LYMPHOCYTE 6 % (20-40); MONOCYTE 5 % (0-10); NEUTROPHIL 82 % (50-75); PLATELET ESTIMATE NORMAL (NORMAL); TOTAL CELLS COUNTED 100
[2019-01-03 09:22] LABS: ANISOCYTOSIS MODERATE; HYPOCHROMIC MODERATE; LARGE PLATELETS PRESENT; OVALOCYTES SLIGHT; POIKILOCYTOSIS SLIGHT; POLYCHROMIC SLIGHT
[2019-01-03 09:23] LABS: BURR CELLS SLIGHT; SCHISTOCYTES SLIGHT; TOXIC GRANULATION PRESENT
[2019-01-03] MEDS: Enoxaparin 40 mg Syringe SC SCH (09:41)
[2019-01-03] MEDS: Azithromycin 500 MG in Sodium Chloride 0.9% 250 ML IVPB SCH (09:41)
[2019-01-03] MEDS: Multiple Vitamins Tab PO SCH (09:42)
[2019-01-03] MEDS: MethylPREDNISolone 40 mg Vial IV SCH ×2 (09:42→21:15)
--- NOTE | 2019-01-03 20:38 | CP.PCM.CON ---
<Thuy Robison - Last Filed: 01/03/19 20:49> History of Present Illness - History of Present Illness History of Present Illness: General Surgery Consult note for Dr. Tavarez consulted for possible left wrist abscess 12/27 IV drug abuse Patient is a 58 M with PMh IVDA who was admitted to [facility] 01/03 after being found unresponsive d/t heroin overdose. upon examination pt was found to have area of soft tissue swelling over the left wrist and general surgery was consulted for possible abscess. patient states this has been present for approximately 1-2 weeks and denies pain over the area and states it is "just annoying" he admits to regularly injecting IV drugs at this site and believes it may have appeared shortly after using IV drugs. He otherwise denies any RED fevers, chills pain at the site, SOB CP, abdominal pain, N/V, difficulty using his arm or hand or any sensory weakness in the hand. PMH:COPD, HTN, depression, polysubstance abuse (tobacco, alcohol, marijuana), BPH PSH: perforated peptic ulcer repair x3 Social: Current smoker (/4ppd; previously smoked 1ppd since he was 10 year old); smokes marijuana once per month, otherwise, denies other ellicit drug use; drinks 1 24oz can of beer daily (last drink was one beer prior to admission) Allergies: NKDA Review of Systems - Review of Systems All systems: reviewed and no additional remarkable complaints except (as per HPI) Past Patient History - Infectious Disease Hx of Infectious Diseases: None - Past Medical History & Family History Past Medical History?: Yes - Past Social History Smoking Status: Light Smoker < 10 Cigarettes Daily - CARDIAC Hx Atrial Fibrillation: No Hx Cardia Arrhythmia: No Hx Congestive Heart Failure: No Hx Hypercholesterolemia: No Hx Hypertension: Yes Hx Mitral Valve Prolapse: No Hx Pacemaker: No Hx Peripheral Edema: No - PULMONARY Hx Asthma: Yes Hx Bronchitis: Yes Hx Chronic Obstructive Pulmonary Disease (COPD): Yes Hx Emphysema: No Hx Pneumonia: Yes Hx Pulmonary Embolism: No Hx Sleep Apnea: No - NEUROLOGICAL Hx Alzheimer's Disease: No Hx Dementia: No Hx Migraine: No Hx Multiple Sclerosis: No Hx Parkinson's Disease: No Hx Seizures: No Hx Transient Ischemic Attacks (TIA): No - HEENT Hx HEENT Problems: No Hx Blind: No Hx Cataracts: No Hx Deafness: No Hx Difficulty Chewing: No Hx Epistaxis: No Hx Glaucoma: No Hx Macular Degeneration: No - RENAL Hx Chronic Kidney Disease: No Hx Kidney Stones: No - ENDOCRINE/METABOLIC Hx Hyperthyroidism: No Hx Hypothyroidism: No - HEMATOLOGICAL/ONCOLOGICAL Hx Anemia: No Hx Human Immunodeficiency Virus (HIV): No Hx Sickle Cell Disease: No - INTEGUMENTARY Hx Dermatological Problems: No Hx Basil Cell: No Hx Wu: No Hx Cellulitis: No Hx Eczema: No Hx Melanoma: No Hx Psoriasis: No Hx Squamous Cell: No - MUSCULOSKELETAL/RHEUMATOLOGICAL Hx Falls: Yes - GASTROINTESTINAL Hx Crohn's Disease: No Hx Diverticulitis: No Hx Gall Bladder Disease: No Hx Gastritis: Yes Hx Pancreatitis: No - GENITOURINARY/GYNECOLOGICAL Hx Sexually Transmitted Disorders: No - PSYCHIATRIC Hx Substance Use: Yes - SURGICAL HISTORY Hx Appendectomy: Yes Hx Carotid Endarterectomy: No Hx Cholecystectomy: No Hx Coronary Artery Bypass Graft: No Hx Coronary Stent: No Hx Tonsillectomy: Yes - ANESTHESIA Hx Anesthesia: Yes Hx Anesthesia Reactions: No Hx Malignant Hyperthermia: No Meds Allergies/Adverse Reactions: Allergies Allergy/AdvReac Type Severity Reaction Status Date / Time No Known Allergies Allergy Verified 01/02/19 00:32 - Medications Medications: Current Medications Albuterol/Ipratropium (Duoneb 3 Mg/0.5 Mg (3 Ml) Ud) 3 ml INH RQ4 [facility] Last Admin: 01/03/19 19:53 Dose: 3 ml Enoxaparin Sodium (Lovenox) 40 mg SC DAILY [facility] Last Admin: 01/03/19 09:41 Dose: 40 mg Guaifenesin (Robitussin) 100 mg PO Q4H PRN PRN Reason: Cough Azithromycin 500 mg/ Sodium (Chloride) 250 mls @ 250 mls/hr IVPB DAILY [facility]; Protocol Last Admin: 01/03/19 09:41 Dose: 250 mls/hr Ketorolac Tromethamine (Toradol) 30 mg IVP Q8 PRN PRN Reason: pain Last Admin: 01/03/19 19:21 Dose: 30 mg Lisinopril (Zestril) 10 mg PO DAILY [facility] Last Admin: 01/03/19 09:42 Dose: 10 mg Methylprednisolone (Solu-Medrol) 40 mg IV Q12 [facility] Last Admin: 01/03/19 09:42 Dose: 40 mg Mirtazapine (Remeron) 30 mg PO HS [facility] Last Admin: 01/02/19 22:28 Dose: 30 mg Multivitamins (Hexavitamin) 1 tab PO DAILY [facility] Last Admin: 01/03/19 09:42 Dose: 1 tab Nicotine (Nicoderm Cq) 1 patch TD DAILY [facility] Last Admin: 01/03/19 13:04 Dose: 1 patch Pantoprazole Sodium (Protonix Inj) 40 mg IVP DAILY [facility] Last Admin: 01/03/19 09:42 Dose: 40 mg Tamsulosin HCl (Flomax) 0.4 mg PO DAILY [facility] Last Admin: 01/03/19 09:42 Dose: 0.4 mg Thiamine HCl (Vitamin B1 Tab) 100 mg PO DAILY [facility] Last Admin: 01/03/19 09:42 Dose: 100 mg Zolpidem Tartrate (Ambien) 5 mg PO HS PRN PRN Reason: Insomnia Last Admin: 01/02/19 22:29 Dose: 5 mg Physical Exam - Constitutional Appears: Well, Non-toxic, No Acute Distress - Head Exam Head Exam: ATRAUMATIC, NORMOCEPHALIC - Eye Exam Eye Exam: EOMI - ENT Exam ENT Exam: Mucous Membranes Moist - Respiratory Exam Respiratory Exam: NORMAL BREATHING PATTERN - Cardiovascular Exam Cardiovascular Exam: REGULAR RHYTHM - GI/Abdominal Exam GI & Abdominal Exam: Soft. absent: Tenderness - Extremities Exam Extremities exam: Negative for: calf tenderness, pedal edema, tenderness Additional comments: 1.5 cm x 1 cm raised mildly erythematous area over the lateral/ median aspect of the left wrist. mild fluctuance. mobile swelling area, nontender on exam - Neurological Exam Neurological exam: Alert, Oriented x3 - Psychiatric Exam Psychiatric exam: Normal Affect, Normal Mood - Skin Skin Exam: Dry, Erythema, Intact, Warm Additional comments: see extremity exam Results - Vital Signs Recent Vital Signs: Last Vital Signs Temp 98.0 F 01/03/19 16:00 Pulse 98 H 01/03/19 16:00 Resp 20 01/03/19 16:00 BP 105/68 01/03/19 16:00 Pulse Ox 95 01/03/19 16:00 - Labs Result Diagrams: 01/03/19 07:02 01/03/19 07:02 Labs: Laboratory Results - last 24 hr 01/03/19 01/03/19 07:02 07:02 WBC 15.0 H RBC 3.26 L Hgb 9.0 L Hct 27.8 L MCV 85.3 MCH 27.7 MCHC 32.5 L RDW 20.0 H Plt Count 349 MPV 7.9 Neut % (Auto) 86.4 H Lymph % (Auto) 9.0 L [place] % (Auto) 4.3 Eos % (Auto) 0.0 Baso % (Auto) 0.3 Neut # (Auto) 13.0 H Lymph # (Auto) 1.3 [place] # (Auto) 0.6 Eos # (Auto) 0.0 Baso # (Auto) 0.0 Neutrophils % (Manual) 82 H Band Neutrophils % 7 H Lymphocytes % (Manual) 6 L Monocytes % (Manual) 5 Toxic Granulation Present Platelet Estimate Normal Large Platelets Present Polychromasia Slight Hypochromasia (manual) Moderate Poikilocytosis (manual Slight Anisocytosis (manual) Moderate Ovalocytes Slight Eduardo Cells Slight Schistocytes Slight Sodium 136 Potassium 4.4 Chloride 98 Carbon Dioxide 35 H Anion Gap 8 L BUN 30 H Creatinine 0.7 L Est GFR ( Amer) > 60 Est GFR (Non-Af Amer) > 60 Random Glucose 105 Calcium 8.0 L Phosphorus 4.0 Magnesium 2.2 Total Bilirubin 0.2 AST 35 ALT 23 Alkaline Phosphatase 47 Total Protein 4.8 L Albumin 2.8 L D Globulin 2.0 L Albumin/Globulin Ratio 1.4 Assessment & Plan - Assessment and Plan (Free Text) Assessment: 58 yr old male with PMH IVDA admitted for heroin overdose with small area of soft tissue swelling over left wrist, cyst vs abscess vs aneurysm Plan: - will obtain US of area to ensure that this is not a vascular lesion - possible I&D pending US results - repeat labs in AM - recommend antibiotics per primary team management - patient seen, examined and discussed with Dr. Daysi Landaverde, PGY 1 - Date & Time Date: 01/03/19 Time: 14:45 <Abdulaziz Tavarez - Last Filed: 01/04/19 20:05> Meds - Medications Medications: Current Medications Albuterol/Ipratropium (Duoneb 3 Mg/0.5 Mg (3 Ml) Ud) 3 ml INH RQ4 [facility] Last Admin: 01/04/19 16:11 Dose: 3 ml Enoxaparin Sodium (Lovenox) 40 mg SC DAILY [facility] Last Admin: 01/04/19 09:40 Dose: 40 mg Guaifenesin (Robitussin) 100 mg PO Q4H PRN PRN Reason: Cough Azithromycin 500 mg/ Sodium (Chloride) 250 mls @ 250 mls/hr IVPB DAILY [facility]; Protocol Last Admin: 01/04/19 09:44 Dose: 250 mls/hr Ibuprofen (Motrin Tab) 600 mg PO TID PRN PRN Reason: pain Last Admin: 01/04/19 16:24 Dose: 600 mg Lisinopril (Zestril) 10 mg PO DAILY [facility] Last Admin: 01/04/19 09:40 Dose: 10 mg Methylprednisolone (Solu-Medrol) 40 mg IV Q12 [facility] Last Admin: 01/04/19 09:40 Dose: 40 mg Mirtazapine (Remeron) 30 mg PO HS [facility] Last Admin: 01/03/19 21:16 Dose: 30 mg Multivitamins (Hexavitamin) 1 tab PO DAILY [facility] Last Admin: 01/04/19 09:40 Dose: 1 tab Nicotine (Nicoderm Cq) 1 patch TD DAILY [facility] Last Admin: 01/04/19 09:40 Dose: 1 patch Pantoprazole Sodium (Protonix Inj) 40 mg IVP DAILY [facility] Last Admin: 01/04/19 09:40 Dose: 40 mg Tamsulosin HCl (Flomax) 0.4 mg PO DAILY [facility] Last Admin: 01/04/19 09:40 Dose: 0.4 mg Thiamine HCl (Vitamin B1 Tab) 100 mg PO DAILY [facility] Last Admin: 01/04/19 09:40 Dose: 100 mg Zolpidem Tartrate (Ambien) 5 mg PO HS PRN PRN Reason: Insomnia Last Admin: 01/02/19 22:29 Dose: 5 mg Results - Vital Signs Recent Vital Signs: Last Vital Signs Temp 97.9 F 01/04/19 16:28 Pulse 60 01/04/19 16:28 Resp 20 01/04/19 16:28 BP 161/76 H 01/04/19 16:28 Pulse Ox 98 01/04/19 16:28 - Labs Result Diagrams: 01/04/19 07:19 01/04/19 07:19 Labs: Laboratory Results - last 24 hr 02/10/19 02/10/19 07:19 07:19 WBC 15.1 H RBC 3.20 L Hgb 8.9 L Hct 27.4 L MCV 85.8 MCH 27.9 MCHC 32.6 L RDW 20.1 H Plt Count 323 MPV 7.9 Neut % (Auto) 85.9 H Lymph % (Auto) 9.9 L [place] % (Auto) 4.1 Eos % (Auto) 0.0 Baso % (Auto) 0.1 Neut # (Auto) 12.9 H Lymph # (Auto) 1.5 [place] # (Auto) 0.6 Eos # (Auto) 0.0 Baso # (Auto) 0.0 Neutrophils % (Manual) 74 Band Neutrophils % 7 H Lymphocytes % (Manual) 10 L Monocytes % (Manual) 9 Toxic Granulation Present Platelet Estimate Normal Large Platelets Present Polychromasia Slight Hypochromasia (manual) Slight Poikilocytosis (manual Slight Anisocytosis (manual) Moderate Ovalocytes Slight Acanthocytes (Spur) Slight Schistocytes Slight Sodium 135 Potassium 4.6 Chloride 99 Carbon Dioxide 35 H Anion Gap 6 L BUN 33 H Creatinine 0.9 Est GFR ( Amer) > 60 Est GFR (Non-Af Amer) > 60 Random Glucose 98 Calcium 7.9 L Phosphorus 3.7 Magnesium 2.1 Total Bilirubin 0.2 AST 17 D ALT 24 Alkaline Phosphatase 46 Total Protein 4.8 L Albumin 2.7 L Globulin 2.1 L Albumin/Globulin Ratio 1.3 Attending/Attestation - Attestation I have personally seen and examined this patient.: Yes I have fully participated in the care of the patient.: Yes I have reviewed all pertinent clinical information: Yes Notes (Text): Pt was seen and examined at bedside Agree with above note and assessment Pt with left wrist swelling and pain Left wrist : Mild tenderness, Abscess present Labs and radiology reviewed Ass: Left wrist abscess Plan: US of left wrist to r/o vascular involvement of abscess IV antibiotics c.w current mx Plan d.w pt in detail Risk and benefit explained in detail.
[2019-01-04 07:40] LABS: BASO % 0.1 % (0.0-2.0); HEMOGLOBIN 8.9 g/dL (12.0-18.0); LYMPH # 1.5 K/uL (1.0-4.3); LYMPH % 9.9 % (20.0-40.0); MEAN CELL VOLUME 85.8 fL (80.0-94.0); MEAN CORPUSCULAR HEMOGLOBIN 27.9 pg (27.0-31.0); MEAN CORPUSCULAR HGB CONC 32.6 g/dL (33.0-37.0); MEAN PLATELET VOLUME 7.9 fL (7.2-11.7); MONO # 0.6 K/uL (0.0-0.8); MONO % 4.1 % (0.0-10.0); NEUT # 12.9 K/uL (1.8-7.0); NEUT % 85.9 % (50.0-75.0); PLATELET COUNT 323 K/uL (130-400); RED CELL DISTRIBUTION WIDTH 20.1 % (11.5-14.5); WHITE BLOOD COUNT 15.1 K/uL (4.8-10.8)
[2019-01-04] MEDS: Albuterol-Ipratrop 3 mg / 0.5 (3 ml) UD INH SCH ×4 (07:45→20:05)
[2019-01-04 07:46] LABS: ALB/GLOB RATIO 1.3 (1.0-2.1); ALBUMIN 2.7 g/dL (3.5-5.0); ALT/SGPT 24 U/L (21-72); AST/SGOT 17 U/L (17-59); BLOOD UREA NITROGEN 33 mg/dL (9-20); CALCIUM 7.9 mg/dl (8.6-10.4); GFR NON-AFRICAN AMERICAN > 60
--- NOTE | 2019-01-04 08:19 | CP.PCM.PN ---
<Bharathi Lambert - Last Filed: 01/04/19 08:16> Subjective - Date & Time of Evaluation Date of Evaluation: 01/04/19 Time of Evaluation: 08:16 - Subjective Subjective: SURGERY NOTE FOR DR. TAVAREZ 58M seen and examined at bedside. Patient continues to have left wrist mass. Denies tenderness, drainage or fevers. Objective - Vital Signs/Intake and Output Vital Signs (last 24 hours): Temp Pulse Resp BP Pulse Ox 97.8 F 97 H 20 119/64 96 01/04/19 00:00 01/04/19 00:00 01/04/19 00:00 01/04/19 00:00 01/04/19 00:00 Intake and Output: 01/04/19 01/04/19 06:59 18:59 Intake Total 400 400 Balance 400 400 - Medications Medications: Current Medications Albuterol/Ipratropium (Duoneb 3 Mg/0.5 Mg (3 Ml) Ud) 3 ml INH RQ4 [facility] Last Admin: 01/03/19 19:53 Dose: 3 ml Enoxaparin Sodium (Lovenox) 40 mg SC DAILY [facility] Last Admin: 01/03/19 09:41 Dose: 40 mg Guaifenesin (Robitussin) 100 mg PO Q4H PRN PRN Reason: Cough Azithromycin 500 mg/ Sodium (Chloride) 250 mls @ 250 mls/hr IVPB DAILY [facility]; Protocol Last Admin: 01/03/19 09:41 Dose: 250 mls/hr Lisinopril (Zestril) 10 mg PO DAILY [facility] Last Admin: 01/03/19 09:42 Dose: 10 mg Methylprednisolone (Solu-Medrol) 40 mg IV Q12 [facility] Last Admin: 01/03/19 21:15 Dose: 40 mg Mirtazapine (Remeron) 30 mg PO HS [facility] Last Admin: 01/03/19 21:16 Dose: 30 mg Multivitamins (Hexavitamin) 1 tab PO DAILY [facility] Last Admin: 01/03/19 09:42 Dose: 1 tab Nicotine (Nicoderm Cq) 1 patch TD DAILY [facility] Last Admin: 01/03/19 13:04 Dose: 1 patch Pantoprazole Sodium (Protonix Inj) 40 mg IVP DAILY [facility] Last Admin: 01/03/19 09:42 Dose: 40 mg Tamsulosin HCl (Flomax) 0.4 mg PO DAILY [facility] Last Admin: 01/03/19 09:42 Dose: 0.4 mg Thiamine HCl (Vitamin B1 Tab) 100 mg PO DAILY [facility] Last Admin: 01/03/19 09:42 Dose: 100 mg Zolpidem Tartrate (Ambien) 5 mg PO HS PRN PRN Reason: Insomnia Last Admin: 01/02/19 22:29 Dose: 5 mg - Labs Labs: 01/04/19 07:19 01/04/19 07:19 - Constitutional Appears: Non-toxic, No Acute Distress - Respiratory Exam Respiratory Exam: Clear to Ausculation Bilateral, NORMAL BREATHING PATTERN - Cardiovascular Exam Cardiovascular Exam: REGULAR RHYTHM, +S1, +S2 - GI/Abdominal Exam GI & Abdominal Exam: Soft. absent: Distended, Firm, Guarding, Rigid, Tenderness, Rebound - Extremities Exam Extremities Exam: absent: Pedal Edema, Tenderness Additional comments: left wrist mass, nontender, mobile, no drainage - Neurological Exam Neurological Exam: Alert, Awake Assessment and Plan - Assessment and Plan (Free Text) Assessment: 58M with left wrist mass Plan: - f/u ultrasound - monitor labs Further recs discuss with Dr. Daysi Lambert, PGY3 <Abdulaziz Tavarez - Last Filed: 01/04/19 20:07> Objective - Vital Signs/Intake and Output Vital Signs (last 24 hours): Temp Pulse Resp BP Pulse Ox 97.9 F 60 20 161/76 H 98 01/04/19 16:28 01/04/19 16:28 01/04/19 16:28 01/04/19 16:28 01/04/19 16:28 Intake and Output: 01/04/19 01/05/19 18:59 06:59 Intake Total 1150 Balance 1150 - Medications Medications: Current Medications Albuterol/Ipratropium (Duoneb 3 Mg/0.5 Mg (3 Ml) Ud) 3 ml INH RQ4 [facility] Last Admin: 01/04/19 16:11 Dose: 3 ml Enoxaparin Sodium (Lovenox) 40 mg SC DAILY [facility] Last Admin: 01/04/19 09:40 Dose: 40 mg Guaifenesin (Robitussin) 100 mg PO Q4H PRN PRN Reason: Cough Azithromycin 500 mg/ Sodium (Chloride) 250 mls @ 250 mls/hr IVPB DAILY [facility]; Protocol Last Admin: 01/04/19 09:44 Dose: 250 mls/hr Ibuprofen (Motrin Tab) 600 mg PO TID PRN PRN Reason: pain Last Admin: 01/04/19 16:24 Dose: 600 mg Lisinopril (Zestril) 10 mg PO DAILY [facility] Last Admin: 01/04/19 09:40 Dose: 10 mg Methylprednisolone (Solu-Medrol) 40 mg IV Q12 [facility] Last Admin: 01/04/19 09:40 Dose: 40 mg Mirtazapine (Remeron) 30 mg PO HS [facility] Last Admin: 01/03/19 21:16 Dose: 30 mg Multivitamins (Hexavitamin) 1 tab PO DAILY [facility] Last Admin: 01/04/19 09:40 Dose: 1 tab Nicotine (Nicoderm Cq) 1 patch TD DAILY [facility] Last Admin: 01/04/19 09:40 Dose: 1 patch Pantoprazole Sodium (Protonix Inj) 40 mg IVP DAILY [facility] Last Admin: 01/04/19 09:40 Dose: 40 mg Tamsulosin HCl (Flomax) 0.4 mg PO DAILY [facility] Last Admin: 01/04/19 09:40 Dose: 0.4 mg Thiamine HCl (Vitamin B1 Tab) 100 mg PO DAILY [facility] Last Admin: 01/04/19 09:40 Dose: 100 mg Zolpidem Tartrate (Ambien) 5 mg PO HS PRN PRN Reason: Insomnia Last Admin: 01/02/19 22:29 Dose: 5 mg - Labs Labs: 01/04/19 07:19 01/04/19 07:19 Attending/Attestation - Attestation I have personally seen and examined this patient.: Yes I have fully participated in the care of the patient.: Yes I have reviewed all pertinent clinical information, including history, physical exam and plan: Yes Notes (Text): Pt was seen and examined at bedside Agree with above note and assessment Pt is improving clinically US is suggestive of left wrist abscess OR for I& D of left wrist Consent IV antibiotics NPO, IVF c.w current mx Plan d.w pt in detail Risk and benefit explained in detail.
[2019-01-04] MEDS: MethylPREDNISolone 40 mg Vial IV SCH ×2 (09:40→21:36)
[2019-01-04] MEDS: Multiple Vitamins Tab PO SCH (09:40)
[2019-01-04] MEDS: Enoxaparin 40 mg Syringe SC SCH (09:40)
[2019-01-04] MEDS: Azithromycin 500 MG in Sodium Chloride 0.9% 250 ML IVPB SCH (09:44)
[2019-01-04 11:18] LABS: BANDS 7 % (0-2); LYMPHOCYTE 10 % (20-40); MONOCYTE 9 % (0-10); NEUTROPHIL 74 % (50-75); PLATELET ESTIMATE NORMAL (NORMAL); TOTAL CELLS COUNTED 100
[2019-01-04 11:19] LABS: ANISOCYTOSIS MODERATE; HYPOCHROMIC SLIGHT; OVALOCYTES SLIGHT; POIKILOCYTOSIS SLIGHT; POLYCHROMIC SLIGHT; TOXIC GRANULATION PRESENT
[2019-01-04 11:20] LABS: ACANTHOCYTES SLIGHT; SCHISTOCYTES SLIGHT
[2019-01-04 11:21] LABS: LARGE PLATELETS PRESENT
--- NOTE | 2019-01-04 11:41 | US ---
Date of service: 01/04/2019 PROCEDURE: LIMITED LEFT WRIST ULTRASOUND HISTORY: left wrist abscess/swelling COMPARISON: None available. TECHNIQUE: High-resolution ultrasonography of the lateral portion left wrist was performed in multiple projections using a linear transducer. Grayscale and duplex Doppler technique was utilized. FINDINGS: There is a hypoechoic superficial lesion at the low lateral left wrist subcutaneous fat approaching the base of the thumb with hypervascular peripheral margins overlying what may be the right radial artery. It measures 2.2 x 1.2 x 1.8 cm and is surrounded by isoechoic to hyperechoic tissue. No internal color Doppler blood flow was uncovered and this may represent a small abscess or even ganglion cyst. The former is favored given peripheral hyper vascularity. Correlation with MRI without contrast is advised to identify surrounding anatomy as well as further characterize this complex cyst or abscess. IMPRESSION: 2.2 cm probable abscess distal lateral left wrist, though other soft tissue lesion is possible. Follow-up MRI is advised with and without gadolinium to further evaluate the left wrist.
[2019-01-05] MEDS: Albuterol-Ipratrop 3 mg / 0.5 (3 ml) UD INH SCH ×6 (00:30→20:17)
[2019-01-05 07:36] LABS: BASO % 0.1 % (0.0-2.0); HEMOGLOBIN 9.1 g/dL (12.0-18.0); LYMPH # 1.6 K/uL (1.0-4.3); LYMPH % 9.7 % (20.0-40.0); MEAN CELL VOLUME 85.5 fL (80.0-94.0); MEAN CORPUSCULAR HEMOGLOBIN 27.9 pg (27.0-31.0); MEAN CORPUSCULAR HGB CONC 32.7 g/dL (33.0-37.0); MEAN PLATELET VOLUME 7.9 fL (7.2-11.7); MONO # 0.6 K/uL (0.0-0.8); MONO % 3.5 % (0.0-10.0); NEUT # 13.9 K/uL (1.8-7.0); NEUT % 86.7 % (50.0-75.0); NRBC % 0.1 % (0.0-2.0); PLATELET COUNT 304 K/uL (130-400); RBC 3.26 Mil/uL (4.40-5.90); RED CELL DISTRIBUTION WIDTH 20.2 % (11.5-14.5)
[2019-01-05 07:43] LABS: ALB/GLOB RATIO 1.3 (1.0-2.1); ALBUMIN 2.7 g/dL (3.5-5.0); ALT/SGPT 17 U/L (21-72); AST/SGOT 23 U/L (17-59); BLOOD UREA NITROGEN 28 mg/dL (9-20); GFR NON-AFRICAN AMERICAN > 60
[2019-01-05 07:57] LABS: PROTHROMBIN TIME 10.7 SECONDS (9.7-12.2)
[2019-01-05] MEDS: Azithromycin 500 MG in Sodium Chloride 0.9% 250 ML IVPB SCH (09:32)
[2019-01-05] MEDS: MethylPREDNISolone 40 mg Vial IV SCH ×2 (09:33→21:48)
[2019-01-05] MEDS: Multiple Vitamins Tab PO SCH (09:37)
[2019-01-05] MEDS: Enoxaparin 40 mg Syringe SC SCH (09:38)
[2019-01-05 09:50] LABS: ANISOCYTOSIS MODERATE; BANDS 6 % (0-2); HYPOCHROMIC SLIGHT; LYMPHOCYTE 9 % (20-40); MONOCYTE 4 % (0-10); NEUTROPHIL 80 % (50-75); PLATELET ESTIMATE NORMAL (NORMAL); REACTIVE LYMPHOCYTES 1 % (0-0); TOTAL CELLS COUNTED 100
[2019-01-05 09:51] LABS: OVALOCYTES SLIGHT; POIKILOCYTOSIS SLIGHT
[2019-01-05] MEDS ORDERED: Lidocaine/Epinephrine 1% 1:100000 10 ML IJ ONE (10:28)
[2019-01-05] MEDS ORDERED: Bupivacaine 0.25% 20 ML INJ IJ ONE (10:28)
[2019-01-05] MEDS ORDERED: Lidocaine Hydrochloride 20 ML INJ ONE (10:47)
[2019-01-05] MEDS ORDERED: ceFAZolin 1 gm in NS 1 GM/100 ML BAG IVPB ONE (11:03)
[2019-01-05] MEDS ORDERED: Midazolam 2 MG/2 ML VIAL ONE (11:05)
[2019-01-05] MEDS ORDERED: HYDROmorphone 0.5 mg/0.5 ml ISec IVP PRN (11:31)
--- NOTE | 2019-01-05 11:39 | PCM.SURG1 ---
Surgeon's Initial Post Op Note - Surgeon's Notes Surgeon: Dr. Tavarez Toy Stuffer: Dr. Flood PGY-4 Type of Anesthesia: IV Sedation, Local Pre-Operative Diagnosis: Left forearm abscess Operative Findings: copious amount of purulent fluid Post-Operative Diagnosis: Left forearm abscess Operation Performed: Left forearm I&D and debridement Specimen/Specimens Removed: culture taken of purulent fluid Estimated Blood Loss: EBL {In ML}: 2 Blood Products Given: N/A Drains Used: No Drains Post-Op Condition: Good Date of Surgery/Procedure: 01/05/19 Time of Surgery/Procedure: 11:39
--- NOTE | 2019-01-05 12:26 | CP.PCM.PN ---
Subjective - Date & Time of Evaluation Date of Evaluation: 01/05/19 Time of Evaluation: 12:25 - Subjective Subjective: Progress note. Attending: Dr. Gonzalez. Pt seen and examined at bedside. No acute distress. Going for sx for abscess today. No fevers, chills, vomiting, diarrhea. Objective - Vital Signs/Intake and Output Vital Signs (last 24 hours): Temp Pulse Resp BP Pulse Ox 97.2 F L 66 15 118/71 100 01/05/19 12:15 01/05/19 12:15 01/05/19 12:15 01/05/19 12:15 01/05/19 12:15 Intake and Output: 01/05/19 01/05/19 06:59 18:59 Intake Total 300 201 Balance 300 201 - Medications Medications: Current Medications Albuterol/Ipratropium (Duoneb 3 Mg/0.5 Mg (3 Ml) Ud) 3 ml INH RQ4 [facility] Last Admin: 01/05/19 08:28 Dose: 3 ml Enoxaparin Sodium (Lovenox) 40 mg SC DAILY [facility] Last Admin: 01/05/19 09:38 Dose: Not Given Guaifenesin (Robitussin) 100 mg PO Q4H PRN PRN Reason: Cough Hydromorphone HCl (Dilaudid) 0.5 mg IVP Q5M PRN PRN Reason: Pain, severe (8-10) Stop: 01/05/19 13:31 Cefazolin Sodium/Dextrose (Ancef Iv 1 Gm Duplex) 1 gm in 50 mls @ 100 mls/hr IVPB Q8H [facility]; Protocol Ibuprofen (Motrin Tab) 600 mg PO TID PRN PRN Reason: pain Last Admin: 01/04/19 16:24 Dose: 600 mg Ketorolac Tromethamine (Toradol) 15 mg IVP Q6 PRN PRN Reason: Pain, moderate (4-7) Lisinopril (Zestril) 10 mg PO DAILY [facility] Last Admin: 01/05/19 09:38 Dose: Not Given Methylprednisolone (Solu-Medrol) 40 mg IV Q12 [facility] Last Admin: 01/05/19 09:33 Dose: 40 mg Mirtazapine (Remeron) 30 mg PO HS [facility] Last Admin: 01/04/19 21:36 Dose: 30 mg Multivitamins (Hexavitamin) 1 tab PO DAILY [facility] Last Admin: 01/05/19 09:37 Dose: Not Given Nicotine (Nicoderm Cq) 1 patch TD DAILY [facility] Last Admin: 01/05/19 09:33 Dose: 1 patch Pantoprazole Sodium (Protonix Inj) 40 mg IVP DAILY [facility] Last Admin: 01/05/19 09:33 Dose: 40 mg Tamsulosin HCl (Flomax) 0.4 mg PO DAILY [facility] Last Admin: 01/05/19 09:37 Dose: Not Given Thiamine HCl (Vitamin B1 Tab) 100 mg PO DAILY [facility] Last Admin: 01/05/19 09:38 Dose: Not Given Zolpidem Tartrate (Ambien) 5 mg PO HS PRN PRN Reason: Insomnia Last Admin: 01/02/19 22:29 Dose: 5 mg - Labs Labs: 01/05/19 07:04 01/05/19 07:04 PT 10.7 SECONDS (9.7-12.2) 01/05/19 07:04 INR 1.0 01/05/19 07:04 APTT 24 SECONDS (21-34) 01/05/19 07:04 - Constitutional Appears: Non-toxic, No Acute Distress - Head Exam Head Exam: ATRAUMATIC, NORMAL INSPECTION, NORMOCEPHALIC - Eye Exam Eye Exam: EOMI - ENT Exam ENT Exam: Mucous Membranes Moist - Neck Exam Neck Exam: Full ROM, Normal Inspection - Respiratory Exam Respiratory Exam: Wheezes. absent: Respiratory Distress - Cardiovascular Exam Cardiovascular Exam: +S1, +S2 - GI/Abdominal Exam GI & Abdominal Exam: Soft, Normal Bowel Sounds. absent: Tenderness - Extremities Exam Extremities Exam: absent: Full ROM, Normal Inspection Additional comments: forearm abscess, with some erythema, no pus or drainage - Neurological Exam Neurological Exam: Alert, Awake, CN II-XII Intact - Psychiatric Exam Psychiatric exam: Flat Affect - Skin Skin Exam: Dry, Intact, Normal Color, Warm Assessment and Plan - Assessment and Plan (Free Text) Assessment: This is a 58 yo male with COPD exacerbation Chest X-ray No active pulmonary disease. COPD. Medications: - Duonebs 3ML INH RQ4H - Solu-medrol 40mg IV Q12H - Robitussin 100mg PO BID PRN - Azithromycin 500mg IV daily (started 01/02) Leukocytosis -16 today, likely uptrending due to steroids -Afebrile -Normal CXR -01/02 blood cultures negative x 3 days Polysubstance abuse -S/P Narcan 2mg intranasal -urine tox positive for alcohol and opiate -Multivitamin, thiamine Left forearm mass -Surgery consulted, Dr. Lagunas -Warm compress prn Depression Medications: - mirtazapine 15 mg PO HS Chronic pain - Toradol 30mg IV Q8 prn HTN - Lisinopril 10mg PO daily [facility] - Flomax 0.4mg PO daily Insomnia -Ambien 5mg prn Ppx: - GI: Protonix 40mg PO daily - DVT: Lovenox 40mg SC daily Case discussed with Dr. Gonzalez
[2019-01-05] MEDS: ceFAZolin IV 1 gm in Dextrose 1 GM/50 ML BAG IVPB SCH ×2 (13:02→19:22)
--- NOTE | 2019-01-05 13:37 | PCM.PYCHPN ---
Psychiatric Progress Note - Psychiatric Progress Note Patient seen today, length of contact: 15 min Patient Chief Complaint: "I feel better" Problems Identified/Issues Discussed: The pt is seen, chart reviewed, case discussed with staff. Support and psychoeducation given, CBT and MS used briefly No new symptoms reported, improving slowly and needs more time he is less depressed, which was mostly demoralization from his social stressors: homelessness No SEs from medications, risks discussed. After care discussed Medication Change: Yes (meds adjusted) Medical Record Reviewed: Yes Mental Status Examination - Cognitive Function Orientation: Person, Place, Situation, Time Memory: Impaired Attention: Poor Concentration: Poor Association: WNL Fund of Knowledge: WNL - Mood Mood: Depressed, Anxious - Affect Affect: Constricted - Speech Speech: Appropriate - Formal Thought Process Formal Thought Process: No Impairment - Suicidal Ideation Suicidal Ideation: No - Homicidal Ideation Homicidal Ideation: No Goal/Treatment Plan - Goal/Treatment Plan Need for Continued Stay: Severe depression anxiety, Discharge may exacerbated symptoms, Severe functional impairment, Other Progress Toward Problem(s) and Goals/Treatment Plan: No need for detox as he was out only 1 day. Gabapentin for augmentation Remeron for depression As needed medications All risks, benefits and alternatives of the meds discussed, and the pt agreed and understood. Supportive therapy and psychoeducation MS for abstinence Encourage MAT Refer to rehab such as [facility], [facility] or [facility], and self-help groups Teach healthy lifestyle methods, i.e. diet, exercise, meditation Smoking cessation with MS Nicotine patch Psych will sign off He does not need admission, however, he is known to feign psych sxs to secure admission, as he dislikes being outside or in shelters so much. He needs housing help but he must apply with [employer], [employer] outside to be on the waitlist for housing.
[2019-01-05 16:04] VITALS: RESP 20
[2019-01-05] MEDS: guaiFENesin 100 mg/5 ml Syrup UD PO PRN ×2 (16:55→22:07)
--- NOTE | 2019-01-05 20:21 | OP ---
PROCEDURE DATE: 01/05/2019 PREOPERATIVE DIAGNOSES: 1. Left wrist abscess and cellulitis. 2. Intravenous drug abuse. POSTOPERATIVE DIAGNOSES: 1. Left wrist abscess and cellulitis. 2. Intravenous drug abuse. PROCEDURES DONE: 1. Incision and drainage of left wrist abscess. 2. Debridement of the left wrist abscess cavity. SURGEON: bAdulaziz Tavarez MD [employer]FTSM[employer]: Lisette Flood DO, PGY-4 resident ANESTHESIA: Local anesthesia plus sedation. ESTIMATED BLOOD LOSS: Around 10 mL. DRAINS: None. PATHOLOGY: The pus was sent for the culture and sensitivity. Debrided tissue was also sent for pathology. COMPLICATIONS: None. INTRAOPERATIVE FINDINGS: The patient had approximately 3 x 2 cm abscess of the left wrist on the top of the radial artery. The preoperative ultrasound was suggestive of no communication of artery to the abscess cavity. DESCRIPTION OF PROCEDURE: The patient was consented, brought to the OR, placed supine on the operating room table. After induction of mild sedation, the left wrist was prepped and draped in the usual sterile fashion. Local anesthesia was injected. An incision was made. The abscess cavity was entered. Approximately 8 to 10 mL of pus was drained, and the pus was sent for culture and sensitivity. Now, the abscess cavity was debrided with a blunt and sharp dissection, and proper hemostasis was achieved. The wound was irrigated. The wound was packed with iodoform packing, and dry sterile dressing was applied. The patient tolerated the procedure well. Count of instrument and gauze was correct. There was no apparent complication. The patient was extubated in OR and sent to the postanesthesia care unit in stable condition. Abdulaziz Tavarez MD
[2019-01-06] MEDS: Albuterol-Ipratrop 3 mg / 0.5 (3 ml) UD INH SCH ×7 (00:41→23:50)
[2019-01-06] MEDS: ceFAZolin IV 1 gm in Dextrose 1 GM/50 ML BAG IVPB SCH ×3 (03:55→19:13)
[2019-01-06 07:35] LABS: BASO % 0.1 % (0.0-2.0); LYMPH # 1.4 K/uL (1.0-4.3); LYMPH % 9.2 % (20.0-40.0); MEAN CELL VOLUME 85.8 fL (80.0-94.0); MEAN CORPUSCULAR HGB CONC 32.7 g/dL (33.0-37.0); MEAN PLATELET VOLUME 8.3 fL (7.2-11.7); MONO # 0.6 K/uL (0.0-0.8); MONO % 3.8 % (0.0-10.0); NEUT # 13.5 K/uL (1.8-7.0); NEUT % 86.9 % (50.0-75.0); NRBC % 0.1 % (0.0-2.0); PLATELET COUNT 276 K/uL (130-400); RBC 3.22 Mil/uL (4.40-5.90); RED CELL DISTRIBUTION WIDTH 20.5 % (11.5-14.5); WHITE BLOOD COUNT 15.5 K/uL (4.8-10.8)
[2019-01-06 07:41] LABS: ALB/GLOB RATIO 1.3 (1.0-2.1); ALBUMIN 2.6 g/dL (3.5-5.0); ALT/SGPT 20 U/L (21-72); AST/SGOT 15 U/L (17-59); BLOOD UREA NITROGEN 33 mg/dL (9-20); GFR NON-AFRICAN AMERICAN > 60
[2019-01-06 08:53] LABS: LYMPHOCYTE 4 % (20-40); MONOCYTE 5 % (0-10); NEUTROPHIL 91 % (50-75); TOTAL CELLS COUNTED 100
[2019-01-06 08:54] LABS: ANISOCYTOSIS SLIGHT; HYPOCHROMIC SLIGHT; OVALOCYTES SLIGHT; PLATELET ESTIMATE NORMAL (NORMAL); POLYCHROMIC SLIGHT
[2019-01-06] MEDS: Enoxaparin 40 mg Syringe SC SCH (09:37)
[2019-01-06] MEDS: MethylPREDNISolone 40 mg Vial IV SCH ×2 (09:38→21:44)
[2019-01-06] MEDS: Multiple Vitamins Tab PO SCH (09:38)
--- NOTE | 2019-01-06 11:43 | CP.PCM.PN ---
<Lisette Flood - Last Filed: 01/06/19 11:40> Subjective - Date & Time of Evaluation Date of Evaluation: 01/06/19 Time of Evaluation: 07:00 - Subjective Subjective: GENERAL SURGERY PROGRESS NOTE FOR DR. TAVAREZ Patient seen and examined at bedside. Denies pain or any complaints. Tolerating diet. Objective - Vital Signs/Intake and Output Vital Signs (last 24 hours): Temp Pulse Resp BP Pulse Ox 97.5 F L 78 20 136/84 98 01/06/19 07:00 01/06/19 07:00 01/06/19 07:00 01/06/19 07:00 01/06/19 07:00 - Medications Medications: Current Medications Albuterol/Ipratropium (Duoneb 3 Mg/0.5 Mg (3 Ml) Ud) 3 ml INH RQ4 FERNANDA Last Admin: 01/06/19 07:10 Dose: 3 ml Enoxaparin Sodium (Lovenox) 40 mg SC DAILY [facility] Last Admin: 01/06/19 09:37 Dose: 40 mg Guaifenesin (Robitussin) 100 mg PO Q4H PRN PRN Reason: Cough Last Admin: 01/05/19 22:07 Dose: 100 mg Cefazolin Sodium/Dextrose (Ancef Iv 1 Gm Duplex) 1 gm in 50 mls @ 100 mls/hr IVPB Q8H [facility]; Protocol Last Admin: 01/06/19 03:55 Dose: 100 mls/hr Ibuprofen (Motrin Tab) 600 mg PO TID PRN PRN Reason: pain Last Admin: 01/05/19 19:16 Dose: 600 mg Ketorolac Tromethamine (Toradol) 15 mg IVP Q6 PRN PRN Reason: Pain, moderate (4-7) Last Admin: 01/05/19 13:14 Dose: 15 mg Lisinopril (Zestril) 10 mg PO DAILY [facility] Last Admin: 01/06/19 09:38 Dose: 10 mg Methylprednisolone (Solu-Medrol) 40 mg IV Q12 FERNANDA Last Admin: 01/06/19 09:38 Dose: 40 mg Mirtazapine (Remeron) 30 mg PO HS [facility] Last Admin: 01/05/19 21:48 Dose: 30 mg Multivitamins (Hexavitamin) 1 tab PO DAILY [facility] Last Admin: 01/06/19 09:38 Dose: 1 tab Nicotine (Nicoderm Cq) 1 patch TD DAILY [facility] Last Admin: 01/06/19 09:37 Dose: 1 patch Pantoprazole Sodium (Protonix Inj) 40 mg IVP DAILY [facility] Last Admin: 01/06/19 09:39 Dose: 40 mg Tamsulosin HCl (Flomax) 0.4 mg PO DAILY [facility] Last Admin: 01/06/19 09:38 Dose: 0.4 mg Thiamine HCl (Vitamin B1 Tab) 100 mg PO DAILY [facility] Last Admin: 01/06/19 09:38 Dose: 100 mg Zolpidem Tartrate (Ambien) 5 mg PO HS PRN PRN Reason: Insomnia Last Admin: 01/02/19 22:29 Dose: 5 mg - Labs Labs: 01/06/19 07:15 01/06/19 07:15 PT 10.7 SECONDS (9.7-12.2) 01/05/19 07:04 INR 1.0 01/05/19 07:04 APTT 24 SECONDS (21-34) 01/05/19 07:04 - Constitutional Appears: Non-toxic, No Acute Distress - Head Exam Head Exam: ATRAUMATIC, NORMAL INSPECTION - Eye Exam Eye Exam: EOMI, Normal appearance - Respiratory Exam Respiratory Exam: NORMAL BREATHING PATTERN. absent: Respiratory Distress - Cardiovascular Exam Cardiovascular Exam: +S1, +S2 - Extremities Exam Additional comments: Left wrist dressing removed, packing removed, no drainage or purulent material able to be expressed. Surrounding area with small area of erythema, no induration or fluctuance. - Neurological Exam Neurological Exam: Alert, Awake, Oriented x3 - Psychiatric Exam Psychiatric exam: Normal Affect, Normal Mood - Skin Skin Exam: Normal Color, Warm Assessment and Plan - Assessment and Plan (Free Text) Assessment: 58yo M with left forearm abscess s/p I&D POD#1 - Packing removed this AM - No further packing required - Dressing replaced - D/w Dr. Daysi Flood PGY-4 <Abdulaziz Tavarez - Last Filed: 01/06/19 16:32> Objective - Vital Signs/Intake and Output Vital Signs (last 24 hours): Temp Pulse Resp BP Pulse Ox 97.5 F L 78 20 136/84 98 01/06/19 07:00 01/06/19 07:00 01/06/19 07:00 01/06/19 07:00 01/06/19 07:00 - Medications Medications: Current Medications Albuterol/Ipratropium (Duoneb 3 Mg/0.5 Mg (3 Ml) Ud) 3 ml INH RQ4 [facility] Last Admin: 01/06/19 11:10 Dose: 3 ml Enoxaparin Sodium (Lovenox) 40 mg SC DAILY [facility] Last Admin: 01/06/19 09:37 Dose: 40 mg Guaifenesin (Robitussin) 100 mg PO Q4H PRN PRN Reason: Cough Last Admin: 01/05/19 22:07 Dose: 100 mg Cefazolin Sodium/Dextrose (Ancef Iv 1 Gm Duplex) 1 gm in 50 mls @ 100 mls/hr IVPB Q8H [facility]; Protocol Last Admin: 01/06/19 13:00 Dose: 100 mls/hr Ibuprofen (Motrin Tab) 600 mg PO TID PRN PRN Reason: pain Last Admin: 01/05/19 19:16 Dose: 600 mg Ketorolac Tromethamine (Toradol) 15 mg IVP Q6 PRN PRN Reason: Pain, moderate (4-7) Last Admin: 01/06/19 16:10 Dose: 15 mg Lisinopril (Zestril) 10 mg PO DAILY [facility] Last Admin: 01/06/19 09:38 Dose: 10 mg Methylprednisolone (Solu-Medrol) 40 mg IV Q12 [facility] Last Admin: 01/06/19 09:38 Dose: 40 mg Mirtazapine (Remeron) 30 mg PO HS [facility] Last Admin: 01/05/19 21:48 Dose: 30 mg Multivitamins (Hexavitamin) 1 tab PO DAILY [facility] Last Admin: 01/06/19 09:38 Dose: 1 tab Nicotine (Nicoderm Cq) 1 patch TD DAILY [facility] Last Admin: 01/06/19 09:37 Dose: 1 patch Pantoprazole Sodium (Protonix Inj) 40 mg IVP DAILY [facility] Last Admin: 01/06/19 09:39 Dose: 40 mg Tamsulosin HCl (Flomax) 0.4 mg PO DAILY [facility] Last Admin: 01/06/19 09:38 Dose: 0.4 mg Thiamine HCl (Vitamin B1 Tab) 100 mg PO DAILY [facility] Last Admin: 01/06/19 09:38 Dose: 100 mg Zolpidem Tartrate (Ambien) 5 mg PO HS PRN PRN Reason: Insomnia Last Admin: 01/02/19 22:29 Dose: 5 mg - Labs Labs: 01/06/19 07:15 01/06/19 07:15 PT 10.7 SECONDS (9.7-12.2) 01/05/19 07:04 INR 1.0 01/05/19 07:04 APTT 24 SECONDS (21-34) 01/05/19 07:04 Attending/Attestation - Attestation I have personally seen and examined this patient.: Yes I have fully participated in the care of the patient.: Yes I have reviewed all pertinent clinical information, including history, physical exam and plan: Yes Notes (Text): Pt was seen and examined at bedside Agree with above note and assessment Pt is improving clinically Local wound care DC plan with PO antibiotics Plan d.w pt in detail. Risk and benefit explained in detail.
--- NOTE | 2019-01-06 15:56 | CP.PCM.PN ---
Subjective - Date & Time of Evaluation Date of Evaluation: 01/06/19 Time of Evaluation: 15:55 - Subjective Subjective: Progress note. Attending: Dr. Gonzalez. Pt seen and examined at bedside. No acute distress. No events overnight. No fevers, chills, vomiting, diarrhea. S/P abscess drainage. Objective - Vital Signs/Intake and Output Vital Signs (last 24 hours): Temp Pulse Resp BP Pulse Ox 97.5 F L 78 20 136/84 98 01/06/19 07:00 01/06/19 07:00 01/06/19 07:00 01/06/19 07:00 01/06/19 07:00 - Medications Medications: Current Medications Albuterol/Ipratropium (Duoneb 3 Mg/0.5 Mg (3 Ml) Ud) 3 ml INH RQ4 FERNANDA Last Admin: 01/06/19 11:10 Dose: 3 ml Enoxaparin Sodium (Lovenox) 40 mg SC DAILY [facility] Last Admin: 01/06/19 09:37 Dose: 40 mg Guaifenesin (Robitussin) 100 mg PO Q4H PRN PRN Reason: Cough Last Admin: 01/05/19 22:07 Dose: 100 mg Cefazolin Sodium/Dextrose (Ancef Iv 1 Gm Duplex) 1 gm in 50 mls @ 100 mls/hr IVPB Q8H [facility]; Protocol Last Admin: 01/06/19 13:00 Dose: 100 mls/hr Ibuprofen (Motrin Tab) 600 mg PO TID PRN PRN Reason: pain Last Admin: 01/05/19 19:16 Dose: 600 mg Ketorolac Tromethamine (Toradol) 15 mg IVP Q6 PRN PRN Reason: Pain, moderate (4-7) Last Admin: 01/05/19 13:14 Dose: 15 mg Lisinopril (Zestril) 10 mg PO DAILY [facility] Last Admin: 01/06/19 09:38 Dose: 10 mg Methylprednisolone (Solu-Medrol) 40 mg IV Q12 [facility] Last Admin: 01/06/19 09:38 Dose: 40 mg Mirtazapine (Remeron) 30 mg PO HS [facility] Last Admin: 01/05/19 21:48 Dose: 30 mg Multivitamins (Hexavitamin) 1 tab PO DAILY [facility] Last Admin: 01/06/19 09:38 Dose: 1 tab Nicotine (Nicoderm Cq) 1 patch TD DAILY [facility] Last Admin: 01/06/19 09:37 Dose: 1 patch Pantoprazole Sodium (Protonix Inj) 40 mg IVP DAILY [facility] Last Admin: 01/06/19 09:39 Dose: 40 mg Tamsulosin HCl (Flomax) 0.4 mg PO DAILY [facility] Last Admin: 01/06/19 09:38 Dose: 0.4 mg Thiamine HCl (Vitamin B1 Tab) 100 mg PO DAILY [facility] Last Admin: 01/06/19 09:38 Dose: 100 mg Zolpidem Tartrate (Ambien) 5 mg PO HS PRN PRN Reason: Insomnia Last Admin: 01/02/19 22:29 Dose: 5 mg - Labs Labs: 01/06/19 07:15 01/06/19 07:15 PT 10.7 SECONDS (9.7-12.2) 01/05/19 07:04 INR 1.0 01/05/19 07:04 APTT 24 SECONDS (21-34) 01/05/19 07:04 - Constitutional Appears: Non-toxic, No Acute Distress, Chronically Ill - Head Exam Head Exam: ATRAUMATIC, NORMAL INSPECTION, NORMOCEPHALIC - Eye Exam Eye Exam: EOMI - ENT Exam ENT Exam: Mucous Membranes Moist - Neck Exam Neck Exam: Full ROM, Normal Inspection - Respiratory Exam Respiratory Exam: Wheezes. absent: Respiratory Distress - Cardiovascular Exam Cardiovascular Exam: +S1, +S2 - GI/Abdominal Exam GI & Abdominal Exam: Soft, Normal Bowel Sounds. absent: Tenderness - Extremities Exam Extremities Exam: Full ROM, Normal Inspection - Neurological Exam Neurological Exam: Alert, Awake, CN II-XII Intact - Psychiatric Exam Psychiatric exam: Normal Affect, Normal Mood - Skin Skin Exam: Dry, Intact, Normal Color, Warm Additional comments: dressing left forearm clean dry intact Assessment and Plan - Assessment and Plan (Free Text) Assessment: This is a 58 yo male with COPD exacerbation Chest X-ray No active pulmonary disease. COPD. Medications: - Duonebs 3ML INH RQ4H - Solu-medrol 40mg IV Q12H - Robitussin 100mg PO BID PRN - Azithromycin 500mg IV daily (started 01/02) Leukocytosis -16 today, likely uptrending due to steroids -Afebrile -Normal CXR -01/02 blood cultures negative x 3 days Polysubstance abuse -S/P Narcan 2mg intranasal -urine tox positive for alcohol and opiate -Multivitamin, thiamine Left forearm mass -Surgery consulted, Dr. Lagunas -Warm compress prn Depression Medications: - mirtazapine 15 mg PO HS Chronic pain - Toradol 30mg IV Q8 prn HTN - Lisinopril 10mg PO daily BPH - Flomax 0.4 mg PO daily Insomnia -Ambien 5 mg prn Ppx: - GI: Protonix 40mg PO daily - DVT: Lovenox 40mg SC daily Case discussed with Dr. Gonzalez
[2019-01-07] MEDS: ceFAZolin IV 1 gm in Dextrose 1 GM/50 ML BAG IVPB SCH ×3 (03:40→19:44)
[2019-01-07] MEDS: Albuterol-Ipratrop 3 mg / 0.5 (3 ml) UD INH SCH ×5 (05:03→20:38)
[2019-01-07 07:13] LABS: BASO # 0.1 K/uL (0.0-0.2); BASO % 0.4 % (0.0-2.0); HEMOGLOBIN 9.2 g/dL (12.0-18.0); LYMPH # 1.2 K/uL (1.0-4.3); LYMPH % 8.8 % (20.0-40.0); MEAN CELL VOLUME 86.6 fL (80.0-94.0); MEAN CORPUSCULAR HEMOGLOBIN 27.4 pg (27.0-31.0); MEAN CORPUSCULAR HGB CONC 31.6 g/dL (33.0-37.0); MEAN PLATELET VOLUME 8.3 fL (7.2-11.7); MONO # 0.6 K/uL (0.0-0.8); NEUT # 12.3 K/uL (1.8-7.0); NEUT % 86.8 % (50.0-75.0); PLATELET COUNT 265 K/uL (130-400); RBC 3.37 Mil/uL (4.40-5.90); RED CELL DISTRIBUTION WIDTH 20.2 % (11.5-14.5); WHITE BLOOD COUNT 14.2 K/uL (4.8-10.8)
[2019-01-07 07:25] LABS: ALB/GLOB RATIO 1.3 (1.0-2.1); ALBUMIN 2.8 g/dL (3.5-5.0); ALT/SGPT 22 U/L (21-72); AST/SGOT 18 U/L (17-59); BLOOD UREA NITROGEN 31 mg/dL (9-20); CALCIUM 7.9 mg/dl (8.6-10.4); GFR NON-AFRICAN AMERICAN > 60
--- NOTE | 2019-01-07 07:31 | CP.PCM.PN ---
Subjective - Date & Time of Evaluation Date of Evaluation: 01/07/19 Time of Evaluation: 07:29 - Subjective Subjective: Progress note for Dr. Gonzalez Patient was seen and examined at bedside in no acute distress. Patient reports he is feeling better, but still coughing and wheezing. He also states he has mild pain in his left UE 2/2 to the abscess. Patient denies chest pain, palpitations, n/v, fevers/chills, abdominal pain, diarrhea, constipation, dysur ia. Objective - Vital Signs/Intake and Output Vital Signs (last 24 hours): Temp Pulse Resp BP Pulse Ox 97.6 F 83 20 123/65 99 01/07/19 00:00 01/07/19 00:00 01/07/19 00:00 01/07/19 00:00 01/07/19 00:00 Intake and Output: 01/07/19 01/07/19 06:59 18:59 Intake Total 650 240 Balance 650 240 - Medications Medications: Current Medications Albuterol/Ipratropium (Duoneb 3 Mg/0.5 Mg (3 Ml) Ud) 3 ml INH RQ4 [facility]DA Last Admin: 01/07/19 05:03 Dose: Not Given Enoxaparin Sodium (Lovenox) 40 mg SC DAILY [facility] Last Admin: 01/06/19 09:37 Dose: 40 mg Guaifenesin (Robitussin) 100 mg PO Q4H PRN PRN Reason: Cough Last Admin: 01/05/19 22:07 Dose: 100 mg Cefazolin Sodium/Dextrose (Ancef Iv 1 Gm Duplex) 1 gm in 50 mls @ 100 mls/hr IV PB Q8H [facility]; Protocol Last Admin: 01/07/19 03:40 Dose: 100 mls/hr Ibuprofen (Motrin Tab) 600 mg PO TID PRN PRN Reason: pain Last Admin: 01/05/19 19:16 Dose: 600 mg Ketorolac Tromethamine (Toradol) 15 mg IVP Q6 PRN PRN Reason: Pain, moderate (4-7) Last Admin: 01/06/19 16:10 Dose: 15 mg Lisinopril (Zestril) 10 mg PO DAILY [facility] Last Admin: 01/06/19 09:38 Dose: 10 mg Methylprednisolone (Solu-Medrol) 40 mg IV Q12 [facility] Last Admin: 01/06/19 21:44 Dose: 40 mg Mirtazapine (Remeron) 30 mg PO HS [facility] Last Admin: 01/06/19 21:47 Dose: 30 mg Multivitamins (Hexavitamin) 1 tab PO DAILY [facility] Last Admin: 01/06/19 09:38 Dose: 1 tab Nicotine (Nicoderm Cq) 1 patch TD DAILY [facility] Last Admin: 01/06/19 09:37 Dose: 1 patch Pantoprazole Sodium (Protonix Inj) 40 mg IVP DAILY [facility] Last Admin: 01/06/19 09:39 Dose: 40 mg Tamsulosin HCl (Flomax) 0.4 mg PO DAILY [facility] Last Admin: 01/06/19 09:38 Dose: 0.4 mg Thiamine HCl (Vitamin B1 Tab) 100 mg PO DAILY [facility] Last Admin: 01/06/19 09:38 Dose: 100 mg Zolpidem Tartrate (Ambien) 5 mg PO HS PRN PRN Reason: Insomnia Last Admin: 01/02/19 22:29 Dose: 5 mg - Labs Labs: 01/06/19 07:15 01/07/19 07:02 PT 10.7 SECONDS (9.7-12.2) 01/05/19 07:04 INR 1.0 01/05/19 07:04 APTT 24 SECONDS (21-34) 01/05/19 07:04 - Constitutional Appears: No Acute Distress - Head Exam Head Exam: NORMAL INSPECTION - Eye Exam Eye Exam: EOMI - ENT Exam ENT Exam: Mucous Membranes Moist - Respiratory Exam Respiratory Exam: Rhonchi, Wheezes, NORMAL BREATHING PATTERN. absent: Clear to Ausculation Bilateral, Respiratory Distress - Cardiovascular Exam Cardiovascular Exam: REGULAR RHYTHM, +S1, +S2 - GI/Abdominal Exam GI & Abdominal Exam: Soft, Normal Bowel Sounds. absent: Tenderness - Extremities Exam Extremities Exam: Tenderness (LUE s/p I&D of abscess; dressing c/d/i). absent: Calf Tenderness, Pedal Edema - Neurological Exam Neurological Exam: Alert, Awake, Oriented x3 - Psychiatric Exam Psychiatric exam: Normal Affect, Normal Mood - Skin Skin Exam: Dry, Normal Color, Warm Assessment and Plan - Assessment and Plan (Free Text) Plan: COPD exacerbation Chest X-ray No active pulmonary disease. COPD. Medications: - Duonebs 3ML INH RQ4H - Solu-medrol 40mg IV Q12H - Robitussin 100mg PO BID PRN - Azithromycin 500mg IV daily (started 01/02) Left forearm mass - Surgery consulted, Dr. Lagunas - Per surgery team, patient must keep wound covered and should follow up with Dr. Tavarez within one week of discharge. - Wound cx: +staph aureus - Started Cefazolin 1gm IV Q8h (active since 01/05/19) Leukocytosis - Downtrending - Afebrile - Normal CXR - 01/02 blood cultures negative x 3 days - Wound cx: +staph aureus Polysubstance abuse - S/P Narcan 2mg intranasal - Urine tox positive for alcohol and opiate - Multivitamin, thiamine Depression - Medications: mirtazapine 15 mg PO HS Chronic pain - Toradol 30mg IV Q8 prn HTN - Lisinopril 10mg PO daily BPH - Flomax 0.4 mg PO daily Insomnia - Ambien 5 mg prn Ppx: - GI: Protonix 40mg PO daily - DVT: Lovenox 40mg SC daily Case discussed with and patient seen with Dr. Gonzalez.
[2019-01-07 09:01] LABS: ANISOCYTOSIS SLIGHT; HYPOCHROMIC SLIGHT; LYMPHOCYTE 4 % (20-40); MONOCYTE 5 % (0-10); NEUTROPHIL 91 % (50-75); PLATELET ESTIMATE NORMAL (NORMAL); TOTAL CELLS COUNTED 100
[2019-01-07 09:02] LABS: OVALOCYTES SLIGHT; POLYCHROMIC SLIGHT
[2019-01-07] MEDS: Multiple Vitamins Tab PO SCH (09:45)
[2019-01-07] MEDS: Enoxaparin 40 mg Syringe SC SCH (09:46)
[2019-01-07] MEDS: MethylPREDNISolone 40 mg Vial IV SCH ×2 (09:46→21:42)
--- NOTE | 2019-01-07 12:18 | CP.PCM.PN ---
Subjective - Date & Time of Evaluation Date of Evaluation: 01/07/19 Time of Evaluation: 07:00 - Subjective Subjective: GENERAL SURGERY PROGRESS NOTE FOR DR. OLMEDO Patient seen and examined at bedside. Reports mild pain in the wrist. Tolerating diet. Objective - Vital Signs/Intake and Output Vital Signs (last 24 hours): Temp Pulse Resp BP Pulse Ox 97.5 F L 84 20 135/71 96 01/07/19 07:49 01/07/19 07:49 01/07/19 07:49 01/07/19 07:49 01/07/19 07:49 Intake and Output: 01/07/19 01/07/19 06:59 18:59 Intake Total 650 240 Balance 650 240 - Medications Medications: Current Medications Albuterol/Ipratropium (Duoneb 3 Mg/0.5 Mg (3 Ml) Ud) 3 ml INH RQ4 [facility]ER[facility]NDA Last Admin: 01/07/19 11:00 Dose: 3 ml Enoxaparin Sodium (Lovenox) 40 mg SC DAILY [facility] Last Admin: 01/07/19 09:46 Dose: 40 mg Guaifenesin (Robitussin) 100 mg PO Q4H PRN PRN Reason: Cough Last Admin: 01/05/19 22:07 Dose: 100 mg Cefazolin Sodium/Dextrose (Ancef Iv 1 Gm Duplex) 1 gm in 50 mls @ 100 mls/hr IVPB Q8H [facility]; Protocol Last Admin: 01/07/19 11:37 Dose: 100 mls/hr Ibuprofen (Motrin Tab) 600 mg PO TID PRN PRN Reason: pain Last Admin: 01/05/19 19:16 Dose: 600 mg Ketorolac Tromethamine (Toradol) 15 mg IVP Q6 PRN PRN Reason: Pain, moderate (4-7) Last Admin: 01/07/19 09:59 Dose: 15 mg Lisinopril (Zestril) 10 mg PO DAILY [facility] Last Admin: 01/07/19 09:45 Dose: 10 mg Methylprednisolone (Solu-Medrol) 40 mg IV Q12 [facility] Last Admin: 01/07/19 09:46 Dose: 40 mg Mirtazapine (Remeron) 30 mg PO HS [facility] Last Admin: 01/06/19 21:47 Dose: 30 mg Multivitamins (Hexavitamin) 1 tab PO DAILY [facility] Last Admin: 01/07/19 09:45 Dose: 1 tab Nicotine (Nicoderm Cq) 1 patch TD DAILY [facility] Last Admin: 01/07/19 09:46 Dose: 1 patch Pantoprazole Sodium (Protonix Inj) 40 mg IVP DAILY [facility] Last Admin: 01/07/19 09:46 Dose: 40 mg Tamsulosin HCl (Flomax) 0.4 mg PO DAILY [facility] Last Admin: 01/07/19 09:46 Dose: 0.4 mg Thiamine HCl (Vitamin B1 Tab) 100 mg PO DAILY [facility] Last Admin: 01/07/19 09:45 Dose: 100 mg Zolpidem Tartrate (Ambien) 5 mg PO HS PRN PRN Reason: Insomnia Last Admin: 01/02/19 22:29 Dose: 5 mg - Labs Labs: 01/07/19 07:02 01/07/19 07:02 PT 10.7 SECONDS (9.7-12.2) 01/05/19 07:04 INR 1.0 01/05/19 07:04 APTT 24 SECONDS (21-34) 01/05/19 07:04 - Constitutional Appears: Non-toxic, In Acute Distress - Respiratory Exam Respiratory Exam: NORMAL BREATHING PATTERN. absent: Respiratory Distress - Cardiovascular Exam Cardiovascular Exam: +S1, +S2 - Extremities Exam Additional comments: Left wrist, dressing clean/dry/intact No drainage - Neurological Exam Neurological Exam: Alert, Awake, CN II-XII Intact - Psychiatric Exam Psychiatric exam: Normal Affect, Normal Mood - Skin Skin Exam: Dry, Warm Assessment and Plan - Assessment and Plan (Free Text) Assessment: 58yo M with left forearm abscess s/p I&D POD#2 - Wound Cx = staph aureus - Pt on ancef - No further packing required - Keep dressing clean and dry, may change PRN as needed - Clear for DC from surgical standpoint - D/w Dr. Daysi Flood PGY-4
[2019-01-08] MEDS: Albuterol-Ipratrop 3 mg / 0.5 (3 ml) UD INH SCH ×2 (00:15→04:10)
[2019-01-08] MEDS: ceFAZolin IV 1 gm in Dextrose 1 GM/50 ML BAG IVPB SCH (03:48)
--- NOTE | 2019-01-08 07:39 | CP.PCM.DIS ---
Provider - Provider Date of Admission: 01/02/19 04:39 Attending physician: Dino Gonzalez MD Primary care physician: Dr. Gonzalez Consults: 01/02/19 11:18 Psychiatry Consult Routine Comment: Consulting Provider: Esequiel Alonzo Consulting Physician: Esequiel Alonzo Reason for Consult: polysubstance, overdose 01/02/19 17:14 General Surgery Consult Routine Comment: Consulting Provider: Abdulaziz Tavarez Consulting Physician: Abdulaziz Tavarez Reason for Consult: left forearm abscess Time Spent in preparation of Discharge (in minutes): 45 Hospital Course - Lab Results Lab Results: Micro Results 01/05/19 12:25 Wrist - Left Gram Stain - Final 01/05/19 12:25 Wrist - Left Wound Culture - Final Staphylococcus Aureus 01/02/19 04:47 Blood Blood Culture - Final NO GROWTH AFTER 5 DAYS 01/02/19 04:47 Blood Gram Stain - Final TEST NOT PERFORMED 01/02/19 04:26 Blood Blood Culture - Final NO GROWTH AFTER 5 DAYS 01/02/19 04:26 Blood Gram Stain - Final TEST NOT PERFORMED Most Recent Lab Values WBC 14.2 K/uL (4.8-10.8) H 01/07/19 07:02 RBC 3.37 Mil/uL (4.40-5.90) L 01/07/19 07:02 Hgb 9.2 g/dL (12.0-18.0) L 01/07/19 07:02 Hct 29.2 % (35.0-51.0) L 01/07/19 07:02 MCV 86.6 fL (80.0-94.0) 01/07/19 07:02 MCH 27.4 pg (27.0-31.0) 01/07/19 07:02 MCHC 31.6 g/dL (33.0-37.0) L 01/07/19 07:02 RDW 20.2 % (11.5-14.5) H 01/07/19 07:02 Plt Count 265 K/uL (130-400) 01/07/19 07:02 MPV 8.3 fL (7.2-11.7) 01/07/19 07:02 Neut % (Auto) 86.8 % (50.0-75.0) H 01/07/19 07:02 Lymph % (Auto) 8.8 % (20.0-40.0) L 01/07/19 07:02 [place] % (Auto) 4.0 % (0.0-10.0) 01/07/19 07:02 Eos % (Auto) 0.0 % (0.0-4.0) 01/07/19 07:02 Baso % (Auto) 0.4 % (0.0-2.0) 01/07/19 07:02 Neut # (Auto) 12.3 K/uL (1.8-7.0) H 01/07/19 07:02 Lymph # (Auto) 1.2 K/uL (1.0-4.3) 01/07/19 07:02 [place] # (Auto) 0.6 K/uL (0.0-0.8) 01/07/19 07:02 Eos # (Auto) 0.0 K/uL (0.0-0.7) 01/07/19 07:02 Baso # (Auto) 0.1 K/uL (0.0-0.2) 01/07/19 07:02 Neutrophils % (Manual) 91 % (50-75) H 01/07/19 07:02 Band Neutrophils % 6 % (0-2) H 01/05/19 07:04 Lymphocytes % (Manual) 4 % (20-40) L 01/07/19 07:02 Reactive Lymphs % 1 % (0-0) H 01/05/19 07:04 Monocytes % (Manual) 5 % (0-10) 01/07/19 07:02 Metamyelocytes % 1 % (0-0) H 01/02/19 00:39 Myelocytes % 3 % (0-0) H 01/02/19 00:39 Nucleated RBC % 2 % (0-0) H 01/02/19 00:39 Toxic Granulation Present 01/04/19 07:19 Platelet Estimate Normal (NORMAL) 01/07/19 07:02 Large Platelets Present 01/04/19 07:19 Polychromasia Slight 01/07/19 07:02 Hypochromasia (manual) Slight 01/07/19 07:02 Poikilocytosis (manual Slight 01/05/19 07:04 Anisocytosis (manual) Slight 01/07/19 07:02 Ovalocytes Slight 01/07/19 07:02 [place] Cells Slight 01/03/19 07:02 Acanthocytes (Spur) Slight 01/04/19 07:19 Schistocytes Slight 01/04/19 07:19 PT 10.7 SECONDS (9.7-12.2) 01/05/19 07:04 INR 1.0 01/05/19 07:04 APTT 24 SECONDS (21-34) 01/05/19 07:04 pO2 41 mm/Hg (30-55) 01/02/19 04:07 VBG pH 7.36 (7.32-7.43) 01/02/19 04:07 VBG pCO2 63 mmHg (40-60) H 01/02/19 04:07 VBG HCO3 30.5 mmol/L 01/02/19 04:07 VBG Total CO2 37.5 mmol/L (22-28) H 01/02/19 04:07 VBG O2 Sat (Calc) 76.0 % (40-65) H 01/02/19 04:07 VBG Base Excess 7.9 mmol/L (0.0-2.0) H 01/02/19 04:07 VBG Potassium 3.6 mmol/L (3.6-5.2) 01/02/19 04:07 Sodium 139.0 mmol/l (132-148) 01/02/19 04:07 Chloride 101.0 mmol/L (98-107) 01/02/19 04:07 Glucose 130 mg/dl (75-110) H 01/02/19 04:07 Lactate 2.6 mmol/L (0.7-2.1) H 01/02/19 04:07 Sodium 134 mmol/L (132-148) 01/07/19 07:02 Potassium 4.4 mmol/L (3.6-5.2) 01/07/19 07:02 Chloride 99 mmol/L (98-107) 01/07/19 07:02 Carbon Dioxide 33 mmol/L (22-30) H 01/07/19 07:02 Anion Gap 6 (10-20) L 01/07/19 07:02 BUN 31 mg/dL (9-20) H 01/07/19 07:02 Creatinine 0.7 mg/dL (0.8-1.5) L 01/07/19 07:02 Est GFR ( Amer) > 60 01/07/19 07:02 Est GFR (Non-Af Amer) > 60 01/07/19 07:02 Random Glucose 115 mg/dL (75-110) H 01/07/19 07:02 Lactic Acid 2.0 mmol/L (0.7-2.1) 01/02/19 07:05 Calcium 7.9 mg/dl (8.6-10.4) L 01/07/19 07:02 Phosphorus 4.4 mg/dL (2.5-4.5) 01/07/19 07:02 Magnesium 2.0 mg/dL (1.6-2.3) 01/07/19 07:02 Total Bilirubin 0.1 mg/dL (0.2-1.3) L 01/07/19 07:02 AST 18 U/L (17-59) 01/07/19 07:02 ALT 22 U/L (21-72) 01/07/19 07:02 Alkaline Phosphatase 45 U/L (38-126) 01/07/19 07:02 Total Protein 4.9 g/dL (6.3-8.3) L 01/07/19 07:02 Albumin 2.8 g/dL (3.5-5.0) L 01/07/19 07:02 Globulin 2.1 gm/dL (2.2-3.9) L 01/07/19 07:02 Albumin/Globulin Ratio 1.3 (1.0-2.1) 01/07/19 07:02 Venous Blood Potassium 3.6 mmol/L (3.6-5.2) 01/02/19 04:07 Urine Color Yellow (YELLOW) 01/02/19 04:27 Urine Clarity Clear (Clear) 01/02/19 04:27 Urine pH 5.0 (5.0-8.0) 01/02/19 04:27 Ur Specific [place] 1.009 (1.003-1.030) 01/02/19 04:27 Urine Protein Negative mg/dL (NEGATIVE) 01/02/19 04:27 Urine Glucose (UA) Normal mg/dL (Normal) 01/02/19 04:27 Urine Ketones Negative mg/dL (NEGATIVE) 01/02/19 04:27 Urine Blood Negative (NEGATIVE) 01/02/19 04:27 Urine Nitrate Negative (NEGATIVE) 01/02/19 04:27 Urine Bilirubin Negative (NEGATIVE) 01/02/19 04:27 Urine Urobilinogen Normal mg/dL (0.2-1.0) 01/02/19 04:27 Ur Leukocyte Esterase Neg James/uL (Negative) 01/02/19 04:27 Urine WBC (Auto) < 1 /hpf (0-5) 01/02/19 04:27 Urine Bacteria Rare (<OCC) 01/02/19 04:27 Urine Opiates Screen Positive (NEGATIVE) H 01/02/19 04:27 Urine Methadone Screen Negative (NEGATIVE) 01/02/19 04:27 Ur Barbiturates Screen Negative (NEGATIVE) 01/02/19 04:27 Ur Phencyclidine Scrn Negative (NEGATIVE) 01/02/19 04:27 Ur Amphetamines Screen Negative (NEGATIVE) 01/02/19 04:27 U Benzodiazepines Scrn Positive (NEGATIVE) 01/02/19 04:27 U Oth Cocaine Metabols Negative (NEGATIVE) 01/02/19 04:27 U Cannabinoids Screen Negative (NEGATIVE) 01/02/19 04:27 Alcohol, Quantitative 193 mg/dl (0-10) H 01/02/19 01:29 - Hospital Course Hospital Course: HPI: 58 year old male with a past medical history of COPD, HTN, depression, polysubstance abuse (tobacco, alcohol, marijuana), BPH, who was recently hospitalized here for COPD exacerbation and had signed out against medical advice a day prior. Patient was found unconscious with pin point pupils by the [employer]. EMS administer Narcan on site and patient became conscious shortly after. Patient admits to using 2 bags of heroin and some alcohol. He complains of wheezing and shortness of breath. He denies having fevers, nausea, vomiting, hemoptysis, chest pain, palpitations, dysuria, constipation, and diarrhea. Hospital course: Patient was admitted on 01/02/19 for polysubstance abuse, wrist abscess and COPD. The patient was given Narcan intranasally for heroin use. Chest xray was done and showed COPD, but no active disease. Nebulizer, solumedrol, robitussin, and antibiotics were started. Surgery was consulted for the abscess on his left wrist (Dr. Tavarez). The patient had an I&D on 01/05/19. Wound cx was positive for staph aureus and patient was started on Cefazolin 1g IV Q8h. Blood cultures were ordered and were negative. Patient home medications were continued throughout hospital course. Patient's lung exam continuously improved to his baseline and patient was not complaining of dyspnea, fevers, extremity pain. Patient is stable for discharge. He must continue a 5-day course of PO antibiotics and his home medications. Patient was counseled on abstaining from drug/alcohol and patient understood and is interested in detox. Patient instructed to follow up with PMD. Discharge Exam - Additional Findings Additional findings: - Constitutional Appears: No Acute Distress - Head Exam Head Exam: NORMAL INSPECTION - Eye Exam Eye Exam: EOMI - ENT Exam ENT Exam: Mucous Membranes Moist - Respiratory Exam Respiratory Exam: Rhonchi, Wheezes, NORMAL BREATHING PATTERN. absent: Clear to Ausculation Bilateral, Respiratory Distress - Cardiovascular Exam Cardiovascular Exam: REGULAR RHYTHM, +S1, +S2 - GI/Abdominal Exam GI & Abdominal Exam: Soft, Normal Bowel Sounds. absent: Tenderness - Extremities Exam Extremities Exam: Tenderness (LUE s/p I&D of abscess; dressing c/d/i). absent: Calf Tenderness, Pedal Edema - Neurological Exam Neurological Exam: Alert, Awake, Oriented x3 - Psychiatric Exam Psychiatric exam: Normal Affect, Normal Mood - Skin Skin Exam: Dry, Normal Color, Warm Discharge Plan - Discharge Medications Prescriptions: Albuterol HFA [Ventolin HFA 90 mcg/actuation (8 g)] 2 puff IH [id number] #1 puff Cephalexin [Keflex] 500 mg PO BID #14 capsule - Follow Up Plan Condition: STABLE Disposition: HOME/ ROUTINE Instructions: Drug Abuse and Drug Addiction (DC), Exacerbation of COPD (DC), Alcohol Abuse and Alcoholism (DC), Cephalexin Additional Instructions: Patient is stable for discharge per Dr. Gonzalez. Patient must continue home medications and must start the following new medication: - Keflex 500mg PO Q12h- take 1 tablet every 12 hours for infection for 7 days. [Sent electronically to [facility]] Patient must follow up with PMD, Dr. Gonzalez, within 1 week of discharge. If symptoms worsen or reoccur, patient should return to the nearest emergency room. Referrals: Dino Gonzalez MD [Staff Provider] -
[2019-01-08 07:57] VITALS: BP 111/63; PULSE 83; TEMP 97.8; O2SAT 96
[2019-01-08] MEDS: MethylPREDNISolone 40 mg Vial IV SCH (10:08)
[2019-01-08] MEDS: Enoxaparin 40 mg Syringe SC SCH (10:09)
[2019-01-08] MEDS: Multiple Vitamins Tab PO SCH (10:13)
== END 2019-01-08 12:04 | disposition home or self-care (01) | DRG 582 ==
LOC: C.ER 00:09 → C.9E 04:39 → C.3T 06:57
PROVIDERS: ADMIT Internal Medicine Pulmonary Disease; ATTEND Internal Medicine Pulmonary Disease
PROC: HZ52ZZZ Individual Psychotherapy for Substance Abuse Treatment, Cognitive-Behavioral (ICD-10-PCS; principal; 2019-01-02)
PROC: HZ59ZZZ Individual Psychotherapy for Substance Abuse Treatment, Supportive (ICD-10-PCS; 2019-01-02)
PROC: HZ56ZZZ Individual Psychotherapy for Substance Abuse Treatment, Psychoeducation (ICD-10-PCS; 2019-01-02)
PROC: HZ42ZZZ Group Counseling for Substance Abuse Treatment, Cognitive-Behavioral (ICD-10-PCS; 2019-01-02)
PROC: HZ46ZZZ Group Counseling for Substance Abuse Treatment, Psychoeducation (ICD-10-PCS; 2019-01-02)
PROC: GZHZZZZ Group Psychotherapy (ICD-10-PCS; 2019-01-02)
PROC: GZ58ZZZ Individual Psychotherapy, Cognitive-Behavioral (ICD-10-PCS; 2019-01-02)
PROC: GZ56ZZZ Individual Psychotherapy, Supportive (ICD-10-PCS; 2019-01-02)
PROC: 0H9EXZX Drainage of Left Lower Arm Skin, External Approach, Diagnostic (ICD-10-PCS; 2019-01-05)
DX: T40.1X1A Poisoning by heroin, accidental (unintentional), initial encounter (principal); R40.20 Unspecified coma; F11.20 Opioid dependence, uncomplicated; L03.114 Cellulitis of left upper limb; L02.414 Cutaneous abscess of left upper limb; J44.1 Chronic obstructive pulmonary disease with (acute) exacerbation; F33.2 Major depressive disorder, recurrent severe without psychotic features; F10.20 Alcohol dependence, uncomplicated; Y90.6 Blood alcohol level of 120-199 mg/100 ml; I10 Essential (primary) hypertension; N40.0 Benign prostatic hyperplasia without lower urinary tract symptoms; K21.9 Gastro-esophageal reflux disease without esophagitis; F41.1 Generalized anxiety disorder; F60.9 Personality disorder, unspecified; F17.210 Nicotine dependence, cigarettes, uncomplicated; F12.90 Cannabis use, unspecified, uncomplicated; Z59.0 Homelessness; G47.00 Insomnia, unspecified; T38.0X5A Adverse effect of glucocorticoids and synthetic analogues, initial encounter; D72.829 Elevated white blood cell count, unspecified; G62.9 Polyneuropathy, unspecified; B95.61 Methicillin susceptible Staphylococcus aureus infection as the cause of diseases classified elsewhere

== ENCOUNTER 2019-01-08 15:28 | Emergency (ER) | payer MEDICAID ==
[2019-01-08 15:28] VITALS: BMI 18.8
--- NOTE | 2019-01-08 16:49 | C.PDOC ---
History Of Present Illness 58 year old male, with known history of alcohol abuse, presents to the ED requesting alcohol and heroin detox. Patient is well known to this ED and has had frequent previous visits for detox. He was last seen on 01/02/19 and was admitted for COPD exacerbation and alcohol abuse and was discharged a few hours ago today. Patient admits to drinking after being discharged and now presents to the ED requesting detox. He denies any physical complaints at this time. Awake, alert, unstable gait. <Georgette Bernstein - Last Filed: 01/08/19 19:01> History Per: Patient History/Exam Limitations: no limitations Onset/Duration Of Symptoms: Hrs Current Symptoms Are (Timing): Still Present Suicide/Self Injury Attempted (Context): None Modifying Factor(s): Alcohol, Other (heroin) Associated Symptoms: denies: Suicidal Thoughts, Suicidal Plan Involuntary Hold By: None Recent travel outside of the [place]: No Additional History Per: Patient <Georgette Bernstein - Last Filed: 01/08/19 19:01> <Ward Sky - Last Filed: 01/09/19 05:49> Time Seen by Provider: 01/08/19 15:32 Chief Complaint (Nursing): Substance Abuse Past Medical History Reviewed: Historical Data, Nursing Documentation, Vital Signs Vital Signs: Last Vital Signs Temp 98.2 F 01/08/19 15:46 Pulse 99 H 01/08/19 15:46 Resp 16 01/08/19 15:46 BP 98/63 L 01/08/19 15:46 Pulse Ox 96 01/08/19 15:46 - Medical History PMH: Anxiety, Asthma, Bronchitis, COPD, Depression, Gastritis, Gastrointestinal Ulcer, HTN, Pneumonia Denies: Alzheimer's Disease, Anemia, Arthritis, Atrial Fibrillation, Bipolar Disorder, Cardia Arrhythmia, CHF, Crohn's Disease, Dementia, Diabetes, Diverticulitis, Emphysema, Fractures, Gall Bladder Disease, Hepatitis, HIV, Hypercholesterolemia, Hyperthyroidism, Hypothyroidism, Kidney Stones, Migraine, Mitral Valve Prolapse, Multiple Sclerosis, Osteoporosis, Pancreatitis, Paranoia, Parkinson's Disease, Peripheral Edema, Post Traumatic Stress Disorder, Pulmonary Embolism, Chronic Kidney Disease, Rheumatoid Arthritis, Schizophrenia, Seizures, Sickle Cell Disease, Sexually Transmitted Disease, Sleep Apnea, TIA Surgical History: Appendectomy, Tonsillectomy Denies: CABG, Carotid Endarterectomy, Cholecystectomy, Coronary Stent, Pacemaker - [facility] Procedures CONTR ABD ARTERIOGRM NEC (05/20/07) DETOXIFICATION SERVICES FOR SUBSTANCE ABUSE TREATMENT (12/03/18) ESOPHAGOGASTRODUODENOSCOPY [EGD] W/CLOSED BIOPSY (05/20/07) EXCISION OF LOWER ESOPHAGUS, ENDO, DIAGN (05/21/17) EXTIRPATION OF MATTER FROM LOWER ESOPHAGUS, ENDO (05/21/17) GROUP WEATHER STRIP MECHANIC FOR SUBSTANCE ABUSE TREATMENT, PSYCHOEDUCATION (12/03/18) GROUP WEATHER STRIP MECHANIC FOR SUBSTANCE ABUSE, COGNITIVE BEHAVIORAL (12/03/18) GROUP PSYCHOTHERAPY (12/03/18) INDIV WEATHER STRIP MECHANIC FOR SUBSTANCE ABUSE TREATMENT, PSYCHOEDUCATION (01/14/17) INDIV WEATHER STRIP MECHANIC FOR SUBSTANCE ABUSE, COGNITIVE BEHAVIORAL (01/14/17) INDIV PSYCHOTHERAPY FOR SUBSTANCE ABUSE TREATMENT, SUPPORT (12/03/18) INDIV PSYCHOTHERAPY FOR SUBSTANCE ABUSE, COGNITIV BEHAVIORAL (12/03/18) INDIV PSYCHOTHERAPY FOR SUBSTANCE ABUSE, PSYCHOEDUCATION (12/03/18) INDIVIDUAL PSYCHOTHERAPY, COGNITIVE-BEHAVIORAL (12/03/18) INDIVIDUAL PSYCHOTHERAPY, SUPPORTIVE (12/03/18) INJECT/INFUSE NEC (03/20/12) MEDICATION MANAGEMENT (03/12/17) MEDS MGMT FOR SUBSTANCE ABUSE TREATMENT, OTH REPL MED (03/12/17) Family History: States: Unknown Family Hx - Social History Hx Tobacco Use: Yes Hx Alcohol Use: Yes Hx Substance Use: Yes - Immunization History Hx Tetanus Toxoid Vaccination: No (unk) Hx Influenza Vaccination: No (unk) Hx Pneumococcal Vaccination: No (unk) <Georgette Bernstein - Last Filed: 01/08/19 19:01> Vital Signs: Last Vital Signs Temp 98.9 F 01/09/19 00:19 Pulse 89 01/09/19 00:19 Resp 20 01/09/19 00:19 BP 100/70 01/09/19 00:19 Pulse Ox 97 01/09/19 00:19 - [facility] Procedures CONTR ABD ARTERIOGRM NEC (05/20/07) DETOXIFICATION SERVICES FOR SUBSTANCE ABUSE TREATMENT (12/03/18) ESOPHAGOGASTRODUODENOSCOPY [EGD] W/CLOSED BIOPSY (05/20/07) EXCISION OF LOWER ESOPHAGUS, ENDO, DIAGN (05/21/17) EXTIRPATION OF MATTER FROM LOWER ESOPHAGUS, ENDO (05/21/17) GROUP WEATHER STRIP MECHANIC FOR SUBSTANCE ABUSE TREATMENT, PSYCHOEDUCATION (12/03/18) GROUP WEATHER STRIP MECHANIC FOR SUBSTANCE ABUSE, COGNITIVE BEHAVIORAL (12/03/18) GROUP PSYCHOTHERAPY (12/03/18) INDIV WEATHER STRIP MECHANIC FOR SUBSTANCE ABUSE TREATMENT, PSYCHOEDUCATION (01/14/17) INDIV WEATHER STRIP MECHANIC FOR SUBSTANCE ABUSE, COGNITIVE BEHAVIORAL (01/14/17) INDIV PSYCHOTHERAPY FOR SUBSTANCE ABUSE TREATMENT, SUPPORT (12/03/18) INDIV PSYCHOTHERAPY FOR SUBSTANCE ABUSE, COGNITIV BEHAVIORAL (12/03/18) INDIV PSYCHOTHERAPY FOR SUBSTANCE ABUSE, PSYCHOEDUCATION (12/03/18) INDIVIDUAL PSYCHOTHERAPY, COGNITIVE-BEHAVIORAL (12/03/18) INDIVIDUAL PSYCHOTHERAPY, SUPPORTIVE (12/03/18) INJECT/INFUSE NEC (03/20/12) MEDICATION MANAGEMENT (03/12/17) MEDS MGMT FOR SUBSTANCE ABUSE TREATMENT, OTH REPL MED (03/12/17) <Ward Sky - Last Filed: 01/09/19 05:49> Review Of Systems Except As Marked, All Systems Reviewed And Found Negative. ENT: Negative for: Ear Discharge, Nose Discharge Cardiovascular: Negative for: Chest Pain Respiratory: Negative for: Cough, Shortness of Breath Gastrointestinal: Negative for: Nausea, Vomiting, Abdominal Pain, Diarrhea Musculoskeletal: Negative for: Neck Pain, Back Pain Psych: Positive for: Other (heroin and alcohol detox ). Negative for: Suicidal ideation <Georgette Bernstein - Last Filed: 01/08/19 19:01> Physical Exam - Physical Exam Appears: Non-toxic, No Acute Distress, Other (visibly intoxicated ) Skin: Normal Color, Warm, Dry Head: Atraumatic, Normacephalic Eye(s): bilateral: PERRL (pinpoints B/L) Oral Mucosa: Moist, Other (strong alcohol odor on breath ) Neck: No Midline Cervical Tenderness, No Paracervical Tenderness, No Step Off D eformity, Supple Chest: Symmetrical, No Deformity, No Tenderness Cardiovascular: Rhythm Regular, No Murmur Respiratory: No Accessory Muscle Use, No Rales, No Rhonchi, No Stridor, No Wheezing Gastrointestinal/Abdominal: Soft, No Tenderness Extremity: Normal ROM, No Tenderness, No Deformity Neurological/Psych: Oriented x3, Normal Motor <Georgette Bernstein - Last Filed: 01/08/19 19:01> ED Course And Treatment O2 Sat by Pulse Oximetry: 96 (on RA) Pulse Ox Interpretation: Normal Progress Note: case discussed with Crisis, no detox beds available at present time. Pt was placed in OBS in ED. Pt was re-evaluated hourly, ambualtory in ED. Pt was asking for food, tolearte well. Neuorlogicaly intact. Pt was sign out to , pending: sobriety, re-eval, dispo <Georgette Bernstein - Last Filed: 01/08/19 19:01> Pulse Ox Interpretation: Normal Reevaluation Time: 05:48 Reassessment Condition: Improved <Ward Sky - Last Filed: 01/09/19 05:49> Disposition - Disposition Disposition Time: 19:00 <Georgette Bernstein - Last Filed: 01/08/19 19:01> Counseled Patient/Family Regarding: Studies Performed, Diagnosis, Need For Followup <Ward Sky - Last Filed: 01/09/19 05:49> - Disposition Referrals: [facility] [Outside] Disposition: HOME/ ROUTINE Condition: STABLE Instructions: Alcohol Abuse and Alcoholism (DC) Forms: [employer] ([place]) - Clinical Impression Clinical Impression: Alcohol intoxication - PA / TREASURY CONSULTANT / Resident Statement MD/DO has reviewed & agrees with the documentation as recorded. - Scribe Statement The provider has reviewed the documentation as recorded by the Scribe (Veronica Clay) All medical record entries made by the Scribe were at my direction and personally dictated by me. I have reviewed the chart and agree that the record accurately reflects my personal performance of the history, physical exam, medical decision making, and the department course for this patient. I have also personally directed, reviewed, and agree with the discharge instructions and disposition. <Georgette Bernstein - Last Filed: 01/08/19 19:01> Physician Patient Turnover Patient Signed Over To: Ward Sky Handoff Comments: sobriety, re-eval, dispo <Georgette Bernstein - Last Filed: 01/08/19 19:01>
[2019-01-09 00:20] VITALS: RESP 20; O2SAT 97
[2019-01-09 06:36] VITALS: BP 128/76; PULSE 82; TEMP 98
== END 2019-01-09 06:34 | disposition home or self-care (01) ==
LOC: C.ER 15:28
DX: F10.129 Alcohol abuse with intoxication, unspecified (principal); I10 Essential (primary) hypertension; Z72.0 Tobacco use

== ENCOUNTER 2019-01-09 13:21 | Emergency (ER) | payer MEDICAID ==
[2019-01-09 13:22] VITALS: BMI 18.8
[2019-01-09] MEDS ORDERED: Sodium Chloride 0.9% 1,000 ML IV ONE ×2 (14:00→15:01)
--- NOTE | 2019-01-09 14:33 | C.PDOC ---
History Of Present Illness 58 y/o male with a PMHx of substance abuse brought in by EMS for public intoxication. Patient was found with a cigarette and noted to be somnolent per EMS. On arrival, he admits to using heroin. Patient is a poor historian. He appears drowsy, but is responsive to some questions. When asked if he has any pain, patient indicates his abdomen. No other complaints at this time. Time Seen by Provider: 01/09/19 13:26 Chief Complaint (Nursing): Substance Abuse History Per: Patient History/Exam Limitations: intoxication Onset/Duration Of Symptoms: Hrs Current Symptoms Are (Timing): Still Present Suicide/Self Injury Attempted (Context): None Modifying Factor(s): Other (Heroin) Associated Symptoms: denies: Suicidal Thoughts, Suicidal Plan Past Medical History Reviewed: Historical Data, Nursing Documentation, Vital Signs Vital Signs: Last Vital Signs Temp 98.0 F 01/09/19 13:51 Pulse 100 H 01/09/19 13:51 Resp 20 01/09/19 13:51 BP 74/41 L 01/09/19 13:51 Pulse Ox 94 L 01/09/19 13:51 - Medical History PMH: Anxiety, Asthma, Bronchitis, COPD, Depression, Gastritis, Gastrointestinal Ulcer, HTN, Pneumonia Denies: Alzheimer's Disease, Anemia, Arthritis, Atrial Fibrillation, Bipolar Disorder, Cardia Arrhythmia, CHF, Crohn's Disease, Dementia, Diabetes, Diverticulitis, Emphysema, Fractures, Gall Bladder Disease, Hepatitis, HIV, Hypercholesterolemia, Hyperthyroidism, Hypothyroidism, Kidney Stones, Migraine, Mitral Valve Prolapse, Multiple Sclerosis, Osteoporosis, Pancreatitis, Paranoia, Parkinson's Disease, Peripheral Edema, Post Traumatic Stress Disorder, Pulmonary Embolism, Chronic Kidney Disease, Rheumatoid Arthritis, Schizophrenia, Seizures, Sickle Cell Disease, Sexually Transmitted Disease, Sleep Apnea, TIA Surgical History: Appendectomy, Tonsillectomy Denies: CABG, Carotid Endarterectomy, Cholecystectomy, Coronary Stent, Pacemaker - [facility] Procedures CONTR ABD ARTERIOGRM NEC (05/20/07) DETOXIFICATION SERVICES FOR SUBSTANCE ABUSE TREATMENT (12/03/18) DRAINAGE OF LEFT LOWER ARM SKIN, EXTERNAL APPROACH, DIAGN (01/02/19) ESOPHAGOGASTRODUODENOSCOPY [EGD] W/CLOSED BIOPSY (05/20/07) EXCISION OF LOWER ESOPHAGUS, ENDO, DIAGN (05/21/17) EXTIRPATION OF MATTER FROM LOWER ESOPHAGUS, ENDO (05/21/17) GROUP HEATING TECHNICIAN FOR SUBSTANCE ABUSE TREATMENT, PSYCHOEDUCATION (01/02/19) GROUP HEATING TECHNICIAN FOR SUBSTANCE ABUSE, COGNITIVE BEHAVIORAL (01/02/19) GROUP PSYCHOTHERAPY (01/02/19) INDIV HEATING TECHNICIAN FOR SUBSTANCE ABUSE TREATMENT, PSYCHOEDUCATION (01/14/17) INDIV HEATING TECHNICIAN FOR SUBSTANCE ABUSE, COGNITIVE BEHAVIORAL (01/14/17) INDIV PSYCHOTHERAPY FOR SUBSTANCE ABUSE TREATMENT, SUPPORT (01/02/19) INDIV PSYCHOTHERAPY FOR SUBSTANCE ABUSE, COGNITIV BEHAVIORAL (01/02/19) INDIV PSYCHOTHERAPY FOR SUBSTANCE ABUSE, PSYCHOEDUCATION (01/02/19) INDIVIDUAL PSYCHOTHERAPY, COGNITIVE-BEHAVIORAL (01/02/19) INDIVIDUAL PSYCHOTHERAPY, SUPPORTIVE (01/02/19) INJECT/INFUSE NEC (03/20/12) MEDICATION MANAGEMENT (03/12/17) MEDS MGMT FOR SUBSTANCE ABUSE TREATMENT, OTH REPL MED (03/12/17) Family History: States: Unknown Family Hx - Social History Hx Tobacco Use: Yes Hx Alcohol Use: Yes Hx Substance Use: Yes - Immunization History Hx Tetanus Toxoid Vaccination: No (unk) Hx Influenza Vaccination: No (unk) Hx Pneumococcal Vaccination: No (unk) Review Of Systems Constitutional: Negative for: Fever Cardiovascular: Negative for: Chest Pain Respiratory: Negative for: Cough Gastrointestinal: Positive for: Abdominal Pain. Negative for: Vomiting Neurological: Negative for: Weakness Psych: Positive for: Other (Substance abuse). Negative for: Suicidal ideation (or homicidal) Physical Exam - Physical Exam Additional Physical Exam Comments: Constitutional: No acute distress. Head: Normocephalic. Atraumatic. Eyes: PERRL. ENT: Moist mucous membranes. Neck: Supple. Cardiovascular: Regular rate. Radial pulse 2+ bilaterally. Chest: No tenderness. Respiratory: Clear to auscultation bilaterally. GI: Soft. Nontender. Nondistended. Back: No CVA tenderness. Musculoskeletal: No tenderness or swelling of extremities. Skin: No rash. Neurologic: Drowsy, breathing spontaneously. ED Course And Treatment O2 Sat by Pulse Oximetry: 94 (RA) Pulse Ox Interpretation: Normal Medical Decision Making Medical Decision Making: Plan: Patient placed on continuous nuclear monitoring technician, will observe for sobriety. Prior to discharge, patient awake, alert, steady gait, walked to bathroom, state s he wishes to leave. Disposition - Disposition Disposition: HOME/ ROUTINE Disposition Time: 16:00 Condition: STABLE Instructions: Polysubstance Abuse Forms: [employer] ([place]inyar[place]anda) - Clinical Impression Clinical Impression: Heroin abuse - Scribe Statement The provider has reviewed the documentation as recorded by the Radha Barrera Provider Attestation: All medical record entries made by the Radha were at my direction and personally dictated by me. I have reviewed the chart and agree that the record accurately reflects my personal performance of the history, physical exam, medical decision making, and the department course for this patient. I have also personally directed, reviewed, and agree with the discharge instructions and disposition.
[2019-01-09 17:26] VITALS: TEMP 98
[2019-01-09 18:23] VITALS: O2SAT 94
[2019-01-09 18:28] VITALS: RESP 17
[2019-01-09 18:29] VITALS: BP 123/71; PULSE 89
== END 2019-01-09 18:47 | disposition home or self-care (01) ==
LOC: C.ER 13:21
DX: F11.10 Opioid abuse, uncomplicated (principal)
CPT/HCPCS: 82948; 99285; J7030

== ENCOUNTER 2019-01-10 09:52 | Emergency (ER) | payer MEDICAID ==
[2019-01-10 09:52] VITALS: BMI 18.8
[2019-01-10] MEDS ORDERED: Albuterol 0.083% Inhal Sol (2.5 mg/3 mL) UD INH STA (10:08)
[2019-01-10 10:24] VITALS: RESP 20
[2019-01-10] MEDS ORDERED: Albuterol 0.083% Inhal Sol (2.5 mg/3 mL) UD ONE (10:34)
--- NOTE | 2019-01-10 12:06 | C.PDOC ---
History Of Present Illness 58 year old male presents to the ED for ETOH intoxication. The patient admits to drinking Vodka today. The patient believes he was having a breathing attack and decided to smoke a cigarette. No medical complaints at this time. Time Seen by Provider: 01/10/19 09:59 Chief Complaint (Nursing): Substance Abuse History Per: Patient History/Exam Limitations: intoxication Current Symptoms Are (Timing): Still Present Recent travel outside of the [place]: No Past Medical History Reviewed: Historical Data, Nursing Documentation, Vital Signs Vital Signs: Last Vital Signs Temp 97 F L 01/10/19 10:00 Pulse 99 H 01/10/19 10:00 Resp 20 01/10/19 10:00 BP 157/64 H 01/10/19 10:00 Pulse Ox 96 01/10/19 10:00 - Medical History PMH: Anxiety, Asthma, Bronchitis, COPD, Depression, Gastritis, Gastrointestinal Ulcer, HTN, Pneumonia Denies: Alzheimer's Disease, Anemia, Arthritis, Atrial Fibrillation, Bipolar Disorder, Cardia Arrhythmia, CHF, Crohn's Disease, Dementia, Diabetes, Diverticulitis, Emphysema, Fractures, Gall Bladder Disease, Hepatitis, HIV, Hypercholesterolemia, Hyperthyroidism, Hypothyroidism, Kidney Stones, Migraine, Mitral Valve Prolapse, Multiple Sclerosis, Osteoporosis, Pancreatitis, Paranoia, Parkinson's Disease, Peripheral Edema, Post Traumatic Stress Disorder, Pulmonary Embolism, Chronic Kidney Disease, Rheumatoid Arthritis, Schizophrenia, Seizures, Sickle Cell Disease, Sexually Transmitted Disease, Sleep Apnea, TIA Surgical History: Appendectomy, Tonsillectomy Denies: CABG, Carotid Endarterectomy, Cholecystectomy, Coronary Stent, Pacemaker - [facility] Procedures CONTR ABD ARTERIOGRM NEC (05/20/07) DETOXIFICATION SERVICES FOR SUBSTANCE ABUSE TREATMENT (12/03/18) DRAINAGE OF LEFT LOWER ARM SKIN, EXTERNAL APPROACH, DIAGN (01/02/19) ESOPHAGOGASTRODUODENOSCOPY [EGD] W/CLOSED BIOPSY (05/20/07) EXCISION OF LOWER ESOPHAGUS, ENDO, DIAGN (05/21/17) EXTIRPATION OF MATTER FROM LOWER ESOPHAGUS, ENDO (05/21/17) GROUP FINISH PRODUCTION MANAGER FOR SUBSTANCE ABUSE TREATMENT, PSYCHOEDUCATION (01/02/19) GROUP FINISH PRODUCTION MANAGER FOR SUBSTANCE ABUSE, COGNITIVE BEHAVIORAL (01/02/19) GROUP PSYCHOTHERAPY (01/02/19) INDIV FINISH PRODUCTION MANAGER FOR SUBSTANCE ABUSE TREATMENT, PSYCHOEDUCATION (01/14/17) INDIV FINISH PRODUCTION MANAGER FOR SUBSTANCE ABUSE, COGNITIVE BEHAVIORAL (01/14/17) INDIV PSYCHOTHERAPY FOR SUBSTANCE ABUSE TREATMENT, SUPPORT (01/02/19) INDIV PSYCHOTHERAPY FOR SUBSTANCE ABUSE, COGNITIV BEHAVIORAL (01/02/19) INDIV PSYCHOTHERAPY FOR SUBSTANCE ABUSE, PSYCHOEDUCATION (01/02/19) INDIVIDUAL PSYCHOTHERAPY, COGNITIVE-BEHAVIORAL (01/02/19) INDIVIDUAL PSYCHOTHERAPY, SUPPORTIVE (01/02/19) INJECT/INFUSE NEC (03/20/12) MEDICATION MANAGEMENT (03/12/17) MEDS MGMT FOR SUBSTANCE ABUSE TREATMENT, OTH REPL MED (03/12/17) Family History: States: Unknown Family Hx - Social History Hx Tobacco Use: Yes Hx Alcohol Use: Yes Hx Substance Use: Yes - Immunization History Hx Tetanus Toxoid Vaccination: No (unk) Hx Influenza Vaccination: No (unk) Hx Pneumococcal Vaccination: No (unk) Review Of Systems Except As Marked, All Systems Reviewed And Found Negative. Respiratory: Positive for: Shortness of Breath Physical Exam - Physical Exam Appears: Non-toxic, No Acute Distress Skin: Warm, Dry Head: Atraumatic, Normacephalic Eye(s): bilateral: Normal Inspection, PERRL, EOMI Nose: Normal Oral Mucosa: Moist Neck: Normal ROM Cardiovascular: Rhythm Regular, No Murmur Respiratory: No Rales, No Rhonchi, Wheezing (scant. ) Gastrointestinal/Abdominal: Normal Exam, Soft, No Tenderness Extremity: Bilateral: Atraumatic, Normal Color And Temperature, Normal ROM Neurological/Psych: Oriented x3, Normal Speech, Other (ETOH on breath.) ED Course And Treatment ECG: Interpreted By Me, Viewed By Me ECG Rhythm: Sinus Rhythm Interpretation Of ECG: normal axis. normal intervals. no st or t wave abnormalities. O2 Sat by Pulse Oximetry: 100 (RA) Pulse Ox Interpretation: Normal Medical Decision Making Medical Decision Making: Assessment: ETOH intox Initial plain: -Glucose -Albuterol Progress/Update: Decided to do a work up due the patients hx of COPD. -Blood sent. -CT ABD & Pelvis IV Contrast only -Morphine -Pepcid -Zofran -Urinalysis 1347 - during evaluation patient complained of ongoing sob. Labs ordered and cxr. Breathing tx. Case s/o to Dr. Marlow at 1400 Disposition - Disposition Disposition Time: 14:00 Condition: FAIR Forms: [employer] (Lux[place]ish) - Clinical Impression Clinical Impression: Intoxication, COPD (chronic obstructive pulmonary disease) - Scribe Statement The provider has reviewed the documentation as recorded by the Scribe (Carline Mccord) Provider Attestation: All medical record entries made by the Scribe were at my direction and personally dictated by me. I have reviewed the chart and agree that the record accurately reflects my personal performance of the history, physical exam, medical decision making, and the department course for this patient. I have also personally directed, reviewed, and agree with the discharge instructions and disposition. Physician Patient Turnover Patient Signed Over To: Kelly Mckeon
[2019-01-10 14:15] LABS: BASO # 0.1 K/uL (0.0-0.2); BASO % 0.5 % (0.0-2.0); EOS % 0.1 % (0.0-4.0); HEMOGLOBIN 11.1 g/dL (12.0-18.0); LYMPH # 1.9 K/uL (1.0-4.3); LYMPH % 11.2 % (20.0-40.0); MEAN CELL VOLUME 85.8 fL (80.0-94.0); MEAN CORPUSCULAR HEMOGLOBIN 27.2 pg (27.0-31.0); MEAN CORPUSCULAR HGB CONC 31.7 g/dL (33.0-37.0); MEAN PLATELET VOLUME 7.4 fL (7.2-11.7); MONO # 0.9 K/uL (0.0-0.8); MONO % 5.1 % (0.0-10.0); NEUT # 13.9 K/uL (1.8-7.0); NEUT % 83.1 % (50.0-75.0); RBC 4.06 Mil/uL (4.40-5.90); RED CELL DISTRIBUTION WIDTH 21.8 % (11.5-14.5); WHITE BLOOD COUNT 16.8 K/uL (4.8-10.8)
[2019-01-10 14:36] LABS: ALB/GLOB RATIO 1.6 (1.0-2.1); ALBUMIN 3.9 g/dL (3.5-5.0); ALT/SGPT 35 U/L (21-72); AST/SGOT 65 U/L (17-59); BLOOD UREA NITROGEN 22 mg/dL (9-20); CALCIUM 7.8 mg/dl (8.6-10.4); GFR NON-AFRICAN AMERICAN > 60
[2019-01-10 14:38] LABS: B-TYPE NATRIURETIC PEPTIDE 123 pg/mL (0-900)
[2019-01-10 16:14] VITALS: BP 127/65; PULSE 86; TEMP 98.1; O2SAT 96
--- NOTE | 2019-01-10 17:21 | RAD ---
Date of service: 01/10/2019 PROCEDURE: CHEST RADIOGRAPH, 1 VIEW HISTORY: SOB COMPARISON: Comparison is made with 01/02/2019 FINDINGS: LUNGS: No evidence of new infiltrate or consolidation in the lungs. Hyperinflation of the lungs is noted. PLEURA: No pneumothorax or pleural fluid seen. CARDIOVASCULAR: No aortic atherosclerotic calcification present. Normal. OSSEOUS STRUCTURES: No significant abnormalities. VISUALIZED UPPER ABDOMEN: Normal. OTHER FINDINGS: None. IMPRESSION: No significant interval changes.
== END 2019-01-10 16:23 | disposition home or self-care (01) ==
LOC: C.ER 09:52
DX: F10.129 Alcohol abuse with intoxication, unspecified (principal); J44.9 Chronic obstructive pulmonary disease, unspecified; I10 Essential (primary) hypertension

== ENCOUNTER 2019-01-11 12:42 | Inpatient (IN) | payer MEDICAID ==
--- NOTE | 2019-01-11 13:47 | C.PDOC ---
History Of Present Illness 58 year old male presents to the ED with acute alcohol intoxication for an unknown duration. This current visit is patient's 4th consecutive ED visit for alcohol intoxication. Patient admits to drinking a fifth of hard liquor earlier this morning. When asked about how the ED can help him, patient states "I guess I need detox." Patient does not offer any complaints at this time. Time Seen by Provider: 01/11/19 12:59 History Per: Patient History/Exam Limitations: no limitations, intoxication Onset/Duration Of Symptoms: Hrs Current Symptoms Are (Timing): Still Present Modifying Factor(s): Alcohol Associated Symptoms: denies: Suicidal Thoughts, Suicidal Plan Involuntary Hold By: None Recent travel outside of the [place]: No Additional History Per: Patient Past Medical History Reviewed: Historical Data, Nursing Documentation, Vital Signs - Medical History PMH: Anxiety, Asthma, Bronchitis, COPD, Depression, Gastritis, Gastrointestinal Ulcer, HTN, Pneumonia Denies: Alzheimer's Disease, Anemia, Arthritis, Atrial Fibrillation, Bipolar Disorder, Cardia Arrhythmia, CHF, Crohn's Disease, Dementia, Diabetes, Diverticulitis, Emphysema, Fractures, Gall Bladder Disease, Hepatitis, HIV, Hypercholesterolemia, Hyperthyroidism, Hypothyroidism, Kidney Stones, Migraine, Mitral Valve Prolapse, Multiple Sclerosis, Osteoporosis, Pancreatitis, Paranoia, Parkinson's Disease, Peripheral Edema, Post Traumatic Stress Disorder, Pulmonary Embolism, Chronic Kidney Disease, Rheumatoid Arthritis, Schizophrenia, Seizures, Sickle Cell Disease, Sexually Transmitted Disease, Sleep Apnea, TIA Surgical History: Appendectomy, Tonsillectomy Denies: CABG, Carotid Endarterectomy, Cholecystectomy, Coronary Stent, Pacemaker - [facility] Procedures CONTR ABD ARTERIOGRM NEC (05/20/07) DETOXIFICATION SERVICES FOR SUBSTANCE ABUSE TREATMENT (12/03/18) DRAINAGE OF LEFT LOWER ARM SKIN, EXTERNAL APPROACH, DIAGN (01/02/19) ESOPHAGOGASTRODUODENOSCOPY [EGD] W/CLOSED BIOPSY (05/20/07) EXCISION OF LOWER ESOPHAGUS, ENDO, DIAGN (05/21/17) EXTIRPATION OF MATTER FROM LOWER ESOPHAGUS, ENDO (05/21/17) GROUP BENCH WORKER BINDING FOR SUBSTANCE ABUSE TREATMENT, PSYCHOEDUCATION (01/02/19) GROUP BENCH WORKER BINDING FOR SUBSTANCE ABUSE, COGNITIVE BEHAVIORAL (01/02/19) GROUP PSYCHOTHERAPY (01/02/19) INDIV BENCH WORKER BINDING FOR SUBSTANCE ABUSE TREATMENT, PSYCHOEDUCATION (01/14/17) INDIV BENCH WORKER BINDING FOR SUBSTANCE ABUSE, COGNITIVE BEHAVIORAL (01/14/17) INDIV PSYCHOTHERAPY FOR SUBSTANCE ABUSE TREATMENT, SUPPORT (01/02/19) INDIV PSYCHOTHERAPY FOR SUBSTANCE ABUSE, COGNITIV BEHAVIORAL (01/02/19) INDIV PSYCHOTHERAPY FOR SUBSTANCE ABUSE, PSYCHOEDUCATION (01/02/19) INDIVIDUAL PSYCHOTHERAPY, COGNITIVE-BEHAVIORAL (01/02/19) INDIVIDUAL PSYCHOTHERAPY, SUPPORTIVE (01/02/19) INJECT/INFUSE NEC (03/20/12) MEDICATION MANAGEMENT (03/12/17) MEDS MGMT FOR SUBSTANCE ABUSE TREATMENT, OTH REPL MED (03/12/17) Family History: States: Unknown Family Hx - Social History Hx Tobacco Use: Yes Hx Alcohol Use: Yes Hx Substance Use: Yes - Immunization History Hx Tetanus Toxoid Vaccination: No (unk) Hx Influenza Vaccination: No (unk) Hx Pneumococcal Vaccination: No (unk) Review Of Systems Psych: Positive for: Other (EtOH intoxication ). Negative for: Suicidal ideation Physical Exam - Physical Exam Appears: Non-toxic, No Acute Distress, Other (visibly intoxicated) Skin: Normal Color, Warm, Dry Head: Atraumatic, Normacephalic Eye(s): bilateral: Normal Inspection Oral Mucosa: Moist, Other (alcohol on breath ) Neck: Supple Chest: Symmetrical, No Deformity, No Tenderness Cardiovascular: Rhythm Regular, No Murmur Respiratory: Normal Breath Sounds, No Rales, No Rhonchi, No Wheezing Extremity: Normal ROM, Capillary Refill (less than 2 seconds ) Neurological/Psych: No Normal Speech (slurred), Other (resting hand tremors noted bilaterally, arousable to touch and verbal stimuli ) ED Course And Treatment - Laboratory Results Result Diagrams: 01/12/19 08:13 01/12/19 08:13 ECG: Interpreted By Me, Viewed By Me ECG Rhythm: Sinus Tachycardia Interpretation Of ECG: Sinus Tachycardia at rate 139bpm. Normal axis, prolonged QTC. Nonspecific ST changes. Rate From EC - Radiology CXR: Read By Radiologist CXR Interpretation: Yes: No Acute Disease Medical Decision Making Medical Decision Making: Progress: Bloodwork, CXR ordered and reviewed. Albuterol INH given. Patient presented hypothermic and tachycardic. Also mildly short of breath, but patient has baseline COPD. CXR done and was unremarkable. Albuterol neb given. Patient warmed with Wanda hugger and blankets, temperature improved. Hydrated with IV NS. Labs done. Leukocytosis and lactic acidosis noted. Antibiotics (vanc/zosyn) x1 dose ordered and administered. Case discussed with Dr. Shafer and patient admitted to the hospitalist service for further management. Disposition - Disposition Disposition: HOSPITALIZED Disposition Time: 16:20 Condition: STABLE - Clinical Impression Clinical Impression: Alcohol intoxication, Hypothermia, Leukocytosis, Lactic acidosis - Scribe Statement The provider has reviewed the documentation as recorded by the Scribe (Veronica Clay) Provider Attestation: All medical record entries made by the Scribe were at my direction and personally dictated by me. I have reviewed the chart and agree that the record accurately reflects my personal performance of the history, physical exam, medical decision making, and the department course for this patient. I have also personally directed, reviewed, and agree with the discharge instructions and disposition.
[2019-01-11 13:58] VITALS: BMI 23.5
[2019-01-11] MEDS ORDERED: Albuterol-Ipratrop 3 mg / 0.5 (3 ml) UD INH STA (14:00)
[2019-01-11 14:13] LABS: BASO % 0.2 % (0.0-2.0); LYMPH # 1.2 K/uL (1.0-4.3); LYMPH % 7.3 % (20.0-40.0); MEAN CELL VOLUME 87.1 fL (80.0-94.0); MEAN CORPUSCULAR HEMOGLOBIN 26.7 pg (27.0-31.0); MEAN CORPUSCULAR HGB CONC 30.6 g/dL (33.0-37.0); MEAN PLATELET VOLUME 8.1 fL (7.2-11.7); MONO # 0.6 K/uL (0.0-0.8); MONO % 3.5 % (0.0-10.0); PLATELET COUNT 286 K/uL (130-400); RBC 4.46 Mil/uL (4.40-5.90); RED CELL DISTRIBUTION WIDTH 21.5 % (11.5-14.5); WHITE BLOOD COUNT 16.9 K/uL (4.8-10.8)
[2019-01-11] MEDS ORDERED: Albuterol-Ipratrop 3 mg / 0.5 (3 ml) UD ONE (14:18)
[2019-01-11 14:22] LABS: INR 0.9; PROTHROMBIN TIME 10.3 SECONDS (9.7-12.2)
[2019-01-11 14:40] LABS: ANISOCYTOSIS MODERATE; LYMPHOCYTE 9 % (20-40); MONOCYTE 6 % (0-10); NEUTROPHIL 85 % (50-75); PLATELET ESTIMATE NORMAL (NORMAL); TOTAL CELLS COUNTED 100
[2019-01-11 14:41] LABS: HYPOCHROMIC MODERATE; OVALOCYTES SLIGHT; POIKILOCYTOSIS SLIGHT; POLYCHROMIC SLIGHT; TOXIC GRANULATION PRESENT
[2019-01-11 14:42] LABS: BURR CELLS SLIGHT; LARGE PLATELETS PRESENT
[2019-01-11 14:57] LABS: BLOOD UREA NITROGEN 43 mg/dL (9-20); CALCIUM 7.5 mg/dl (8.6-10.4); GFR NON-AFRICAN AMERICAN > 60
--- NOTE | 2019-01-11 15:58 | RAD ---
Date of service: 01/11/2019 HISTORY: dyspnea COMPARISON: Comparison is made to the previous study dated 01/10/2019 FINDINGS: LUNGS: No active pulmonary disease. PLEURA: No significant pleural effusion identified, no pneumothorax apparent. CARDIOVASCULAR: No aortic atherosclerotic calcification present. Normal cardiac size. No pulmonary vascular congestion. OSSEOUS STRUCTURES: No significant abnormalities. VISUALIZED UPPER ABDOMEN: Normal. OTHER FINDINGS: None. IMPRESSION: No active disease.
[2019-01-11] MEDS ORDERED: Sodium Chloride 0.9% 1,000 ML IV ONE ×3 (16:12→17:32)
[2019-01-11] MEDS ORDERED: Sodium Chloride 0.9% 1,000 ML ONE ×2 (16:23→17:23)
[2019-01-11 16:44] LABS: ABG ALLEN TEST POS; ARTERIAL BLOOD GAS O2 SAT 98.9 % (95-98); ARTERIAL BLOOD GAS PCO2 35 mm/Hg (35-45); ARTERIAL BLOOD GAS PO2 89 mm/Hg (80-100); ARTERIAL BLOOD GAS TCO2 22.8 mmol/L (22-28)
[2019-01-11] MEDS ORDERED: Vancomycin 1 gm/NS 200 ml 1 GM/200 ML BAG IVPB STA (16:54)
[2019-01-11] MEDS ORDERED: Piperacill/Tazo 4.5gm in Dex 4.5 GM/100 ML BAG IVPB STA (16:54)
[2019-01-11] MEDS ORDERED: Dextrose 50% SYRINGE Inj (50 ml) IV STA (16:55)
[2019-01-11] MEDS ORDERED: Dextrose 50% SYRINGE Inj (50 ml) ONE ×2 (17:23→17:25)
[2019-01-11] MEDS: Piperacill/Tazo 3.375gm in Dex 3.375 GM/50 ML BAG IVPB SCH (17:49)
[2019-01-11] MEDS ORDERED: Vancomycin 1 GM 1 GM/250 ML BAG IVPB ONE (18:03)
[2019-01-11 18:33] LABS: SQUAMOUS EPITHIAL 1 /hpf (0-5); URINE BILIRUBIN NEGATIVE (NEGATIVE); URINE BLOOD 3+ (NEGATIVE); URINE CLARITY Hazy (Clear); URINE COLOR Yellow (YELLOW); URINE GLUCOSE (UA) NORMAL (Normal); URINE LEUKOCYTE ESTERASE NEG Leu/uL (Negative); URINE PROTEIN 1+ mg/dL (NEGATIVE); URINE UROBILINOGEN NORMAL mg/dL (0.2-1.0)
--- NOTE | 2019-01-11 18:34 | CP.PCM.HP ---
<KarolinaPrateek hilliard - Last Filed: 01/11/19 18:42> History of Present Illness - History of Present Illness History of Present Illness: This is a 58 yo male with past medical hx of heroin abuse, homeless, tobacco abuse, COPD, presenting to ER with chief complaint of "i'm cold." pt has longstanding hx of visiting [facility] ER. apparently patient has been drinking all day and doing heroin. patient says he will regularly do 5 bags of heroin per day. Denies any other complaints. No fevers, chills, vomiting, diarrhea, chest pain, shortness of breath. Patient found to be hypothermic in ER and given warming treatments. Also found to be tachycardic and started on ativan and librium. 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 PMHx: COPD, HTN, depression, polysubstance abuse (tobacco, alcohol, marijuana), BPH, chronic pain/neuropathy PSHx: 3 surgeries related to peptic ulcer disease/ perforated ulcer FamHx: unknown, adopted SocialHx: Current smoker (1-4ppd; previously smoked 1ppd since he was 10 year old); smokes marijuana once per month, otherwise, admits to heroin use ; drinks heavily daily (last drink was one beer prior to admission) Allergies: NKDA Present on Admission - Present on Admission Any Indicators Present on Admission: No History of DVT/PE: No History of Uncontrolled Diabetes: No Urinary Catheter: No Decubitus Ulcer Present: No Review of Systems - Constitutional Constitutional: Chills. absent: Weakness - EENT Eyes: absent: Blurred Vision, Change in Vision Nose/Mouth/Throat: absent: Nasal Congestion, Nasal Discharge - Cardiovascular Cardiovascular: absent: Chest Pain, Chest Pain at Rest - Respiratory Respiratory: absent: Dyspnea, Hemoptysis - Gastrointestinal Gastrointestinal: absent: Abdominal Pain, Bloating - Genitourinary Genitourinary: absent: Change in Urinary Stream, Difficulty Urinating - Musculoskeletal Musculoskeletal: absent: Abnormal Gait, Back Pain, Numbness - Integumentary Integumentary: absent: Acne, Alopecia - Neurological Neurological: absent: Abnormal Hearing, Abnormal Movements - Psychiatric Psychiatric: absent: Anxiety, Hallucinations - Endocrine Endocrine: absent: Change in Body Appearance, Excessive Sweating - Hematologic/Lymphatic Hematologic: absent: Easy Bleeding, Easy Bruising Past Patient History - Infectious Disease Hx of Infectious Diseases: None - Tetanus Immunizations Tetanus Immunization: Unknown - Past Medical History & Family History Past Medical History?: Yes - Past Social History Chewing Tobacco Use: No Cigar Use: No Alcohol: > 2 Drinks/Day Drugs: Opiates Home Situation {Lives}: Homeless Domestic Violence: Negative - CARDIAC Hx Atrial Fibrillation: No Hx Cardia Arrhythmia: No Hx Congestive Heart Failure: No Hx Hypercholesterolemia: No Hx Hypertension: Yes Hx Mitral Valve Prolapse: No Hx Pacemaker: No Hx Peripheral Edema: No - PULMONARY Hx Asthma: Yes Hx Bronchitis: Yes Hx Chronic Obstructive Pulmonary Disease (COPD): Yes Hx Emphysema: No Hx Pneumonia: Yes Hx Pulmonary Embolism: No Hx Sleep Apnea: No - NEUROLOGICAL Hx Alzheimer's Disease: No Hx Dementia: No Hx Migraine: No Hx Multiple Sclerosis: No Hx Parkinson's Disease: No Hx Seizures: No Hx Transient Ischemic Attacks (TIA): No - HEENT Hx HEENT Problems: No Hx Blind: No Hx Cataracts: No Hx Deafness: No Hx Difficulty Chewing: No Hx Epistaxis: No Hx Glaucoma: No Hx Macular Degeneration: No - RENAL Hx Chronic Kidney Disease: No Hx Kidney Stones: No - ENDOCRINE/METABOLIC Hx Hyperthyroidism: No Hx Hypothyroidism: No - HEMATOLOGICAL/ONCOLOGICAL Hx Anemia: No Hx Human Immunodeficiency Virus (HIV): No Hx Sickle Cell Disease: No - INTEGUMENTARY Hx Dermatological Problems: No Hx Basil Cell: No Hx Wu: No Hx Cellulitis: No Hx Eczema: No Hx Melanoma: No Hx Psoriasis: No Hx Squamous Cell: No - MUSCULOSKELETAL/RHEUMATOLOGICAL Hx Arthritis: No Hx Fractures: No Hx Osteoporosis: No Hx Rheumatoid Arthritis: No - GASTROINTESTINAL Hx Crohn's Disease: No Hx Diverticulitis: No Hx Gall Bladder Disease: No Hx Gastritis: Yes Hx Pancreatitis: No - GENITOURINARY/GYNECOLOGICAL Hx Sexually Transmitted Disorders: No - PSYCHIATRIC Hx Anxiety: Yes Hx Bipolar Disorder: No Hx Depression: Yes Hx Paranoia: No Hx Post Traumatic Stress Disorder: No Hx Schizophrenia: No Hx Substance Use: Yes - SURGICAL HISTORY Hx Appendectomy: Yes Hx Carotid Endarterectomy: No Hx Cholecystectomy: No Hx Coronary Artery Bypass Graft: No Hx Coronary Stent: No Hx Tonsillectomy: Yes - ANESTHESIA Hx Anesthesia: Yes Hx Anesthesia Reactions: No Hx Malignant Hyperthermia: No Meds Allergies/Adverse Reactions: Allergies Allergy/AdvReac Type Severity Reaction Status Date / Time No Known Allergies Allergy Verified 01/11/19 13:59 Physical Exam - Constitutional Appears: Chronically Ill - Head Exam Head Exam: ATRAUMATIC, NORMAL INSPECTION, NORMOCEPHALIC - Eye Exam Eye Exam: EOMI - ENT Exam ENT Exam: Mucous Membranes Moist - Neck Exam Neck exam: Positive for: Full Rom, Normal Inspection - Respiratory Exam Respiratory Exam: NORMAL BREATHING PATTERN. absent: Respiratory Distress - Cardiovascular Exam Cardiovascular Exam: Tachycardia, +S1, +S2 - GI/Abdominal Exam GI & Abdominal Exam: Normal Bowel Sounds, Soft. absent: Tenderness - Extremities Exam Extremities exam: Positive for: full ROM. Negative for: normal inspection Additional comments: positive track leos - Back Exam Back exam: NORMAL INSPECTION - Neurological Exam Neurological exam: Alert, CN II-XII Intact, Oriented x3 Additional comments: positive tremor bilaterally - Psychiatric Exam Psychiatric exam: Flat Affect - Skin Skin Exam: Dry, Intact, Normal Color, Warm Results - Vital Signs Recent Vital Signs: Last Vital Signs Temp 97.4 F L 01/11/19 15:43 Pulse 153 H 01/11/19 17:30 Resp 15 01/11/19 17:30 BP 158/66 H 01/11/19 17:30 Pulse Ox 98 01/11/19 17:30 - Labs Result Diagrams: 01/11/19 14:06 01/11/19 14:06 Labs: Laboratory Results - last 24 hr 01/11/19 01/11/19 01/11/19 13:32 14:06 14:06 WBC 16.9 H RBC 4.46 Hgb 12.0 Hct 38.7 MCV 87.1 MCH 26.7 L MCHC 30.6 L RDW 21.5 H Plt Count 286 MPV 8.1 Neut % (Auto) 89.0 H Lymph % (Auto) 7.3 L [place] % (Auto) 3.5 Eos % (Auto) 0.0 Baso % (Auto) 0.2 Neut # (Auto) 15.0 H Lymph # (Auto) 1.2 [place] # (Auto) 0.6 Eos # (Auto) 0.0 Baso # (Auto) 0.0 Neutrophils % (Manual) 85 H Lymphocytes % (Manual) 9 L Monocytes % (Manual) 6 Toxic Granulation Present Platelet Estimate Normal Large Platelets Present Polychromasia Slight Hypochromasia (manual) Moderate Poikilocytosis (manual Slight Anisocytosis (manual) Moderate Ovalocytes Slight [place] Cells Slight PT 10.3 INR 0.9 APTT 31 Puncture Site pCO2 pO2 HCO3 ABG pH ABG Total CO2 ABG O2 Saturation ABG Base Excess Peter Test ABG Potassium A-a O2 Difference Respiratory Index Glucose Lactate Liter Flow FiO2 Sodium Potassium Chloride Carbon Dioxide Anion Gap BUN Creatinine Est GFR ( Amer) Est GFR (Non-Af Amer) POC Glucose (mg/dL) 90 Random Glucose Calcium Arterial Blood Potassium Alcohol, Quantitative 01/11/19 01/11/19 01/11/19 14:06 16:15 16:40 WBC RBC Hgb Hct MCV MCH MCHC RDW Plt Count MPV Neut % (Auto) Lymph % (Auto) [place] % (Auto) Eos % (Auto) Baso % (Auto) Neut # (Auto) Lymph # (Auto) [place] # (Auto) Eos # (Auto) Baso # (Auto) Neutrophils % (Manual) Lymphocytes % (Manual) Monocytes % (Manual) Toxic Granulation Platelet Estimate Large Platelets Polychromasia Hypochromasia (manual) Poikilocytosis (manual Anisocytosis (manual) Ovalocytes Eduardo Cells PT INR APTT Puncture Site Rra pCO2 35 pO2 89 HCO3 23.0 ABG pH 7.40 ABG Total CO2 22.8 ABG O2 Saturation 98.9 H ABG Base Excess -2.5 L Peter Test Pos ABG Potassium 3.8 A-a O2 Difference 67.0 Respiratory Index 0.8 Glucose 68 L Lactate 3.2 H Liter Flow 2.0 FiO2 28.0 Sodium 138 139.0 Potassium 4.2 Chloride 101 106.0 Carbon Dioxide 21 L Anion Gap 20 BUN 43 H Creatinine 0.9 Est GFR ( Amer) > 60 Est GFR (Non-Af Amer) > 60 POC Glucose (mg/dL) Random Glucose 82 D Calcium 7.5 L Arterial Blood Potassium 3.8 Alcohol, Quantitative 216 H 01/11/19 01/11/19 16:54 16:57 WBC RBC Hgb Hct MCV MCH MCHC RDW Plt Count MPV Neut % (Auto) Lymph % (Auto) [place] % (Auto) Eos % (Auto) Baso % (Auto) Neut # (Auto) Lymph # (Auto) [place] # (Auto) Eos # (Auto) Baso # (Auto) Neutrophils % (Manual) Lymphocytes % (Manual) Monocytes % (Manual) Toxic Granulation Platelet Estimate Large Platelets Polychromasia Hypochromasia (manual) Poikilocytosis (manual Anisocytosis (manual) Ovalocytes Eduardo Cells PT INR APTT Puncture Site pCO2 pO2 HCO3 ABG pH ABG Total CO2 ABG O2 Saturation ABG Base Excess Peter Test ABG Potassium A-a O2 Difference Respiratory Index Glucose Lactate Liter Flow FiO2 Sodium Potassium Chloride Carbon Dioxide Anion Gap BUN Creatinine Est GFR ( Amer) Est GFR (Non-Af Amer) POC Glucose (mg/dL) 65 79 Random Glucose Calcium Arterial Blood Potassium Alcohol, Quantitative Assessment & Plan - Assessment and Plan (Free Text) Assessment: This is a 58 yo male with 1. Hypothermia -warming blankets -IV normal saline warmed up -recheck temp 2. Tachycardia -likely secondary to alcohol withdrawal -[facility] protocol -ativan 1mg iv q hrs prn -librium 50 mg once -ekg shows sinus tach -troponins 3. hx of alcohol abuse -see above -psych consult. Dr. Heredia. recs appreciated. -check b12 and folate -start MVs, thiamine, and folic acid 4. hx of heroin abuse -gave dose of methadone today -psych consult. Dr. Heredia. recs appreciated 5. hx of COPD -start duonebs -continue to monitor -needs PFTs at some point 6. leukocytosis -blood and urine cultures -start zosyn IV q 6 hrs 6. hx of tobacco abuse -encourage smoking cessation 5. GI/DVT ppx -scds -protonix daily discussed with Dr. Rojas. <Suman Rojas H - Last Filed: 01/11/19 19:30> Results - Vital Signs Recent Vital Signs: Last Vital Signs Temp 97.4 F L 01/11/19 15:43 Pulse 97 H 01/11/19 18:46 Resp 19 01/11/19 18:46 BP 97/62 L 01/11/19 18:46 Pulse Ox 98 01/11/19 18:46 - Labs Result Diagrams: 01/11/19 14:06 01/11/19 14:06 Labs: Laboratory Results - last 24 hr 01/11/19 01/11/19 01/11/19 13:32 14:06 14:06 WBC 16.9 H RBC 4.46 Hgb 12.0 Hct 38.7 MCV 87.1 MCH 26.7 L MCHC 30.6 L RDW 21.5 H Plt Count 286 MPV 8.1 Neut % (Auto) 89.0 H Lymph % (Auto) 7.3 L [place] % (Auto) 3.5 Eos % (Auto) 0.0 Baso % (Auto) 0.2 Neut # (Auto) 15.0 H Lymph # (Auto) 1.2 [place] # (Auto) 0.6 Eos # (Auto) 0.0 Baso # (Auto) 0.0 Neutrophils % (Manual) 85 H Lymphocytes % (Manual) 9 L Monocytes % (Manual) 6 Toxic Granulation Present Platelet Estimate Normal Large Platelets Present Polychromasia Slight Hypochromasia (manual) Moderate Poikilocytosis (manual Slight Anisocytosis (manual) Moderate Ovalocytes Slight [place] Cells Slight PT 10.3 INR 0.9 APTT 31 Puncture Site pCO2 pO2 HCO3 ABG pH ABG Total CO2 ABG O2 Saturation ABG Base Excess Peter Test ABG Potassium A-a O2 Difference Respiratory Index Glucose Lactate Liter Flow FiO2 Sodium Potassium Chloride Carbon Dioxide Anion Gap BUN Creatinine Est GFR ( Amer) Est GFR (Non-Af Amer) POC Glucose (mg/dL) 90 Random Glucose Calcium Troponin I Arterial Blood Potassium Urine Color Urine Clarity Urine pH Ur Specific Primrose Urine Protein Urine Glucose (UA) Urine Ketones Urine Blood Urine Nitrate Urine Bilirubin Urine Urobilinogen Ur Leukocyte Esterase Urine WBC (Auto) Urine RBC (Auto) Ur Squamous Epith Cells Hyaline Casts Urine Opiates Screen Urine Methadone Screen Acetaminophen Ur Barbiturates Screen Ur Phencyclidine Scrn Ur Amphetamines Screen U Benzodiazepines Scrn U Oth Cocaine Metabols U Cannabinoids Screen Alcohol, Quantitative 01/11/19 01/11/19 01/11/19 14:06 16:15 16:40 WBC RBC Hgb Hct MCV MCH MCHC RDW Plt Count MPV Neut % (Auto) Lymph % (Auto) [place] % (Auto) Eos % (Auto) Baso % (Auto) Neut # (Auto) Lymph # (Auto) [place] # (Auto) Eos # (Auto) Baso # (Auto) Neutrophils % (Manual) Lymphocytes % (Manual) Monocytes % (Manual) Toxic Granulation Platelet Estimate Large Platelets Polychromasia Hypochromasia (manual) Poikilocytosis (manual Anisocytosis (manual) Ovalocytes Eduardo Cells PT INR APTT Puncture Site Rra pCO2 35 pO2 89 HCO3 23.0 ABG pH 7.40 ABG Total CO2 22.8 ABG O2 Saturation 98.9 H ABG Base Excess -2.5 L Peter Test Pos ABG Potassium 3.8 A-a O2 Difference 67.0 Respiratory Index 0.8 Glucose 68 L Lactate 3.2 H Liter Flow 2.0 FiO2 28.0 Sodium 138 139.0 Potassium 4.2 Chloride 101 106.0 Carbon Dioxide 21 L Anion Gap 20 BUN 43 H Creatinine 0.9 Est GFR ( Amer) > 60 Est GFR (Non-Af Amer) > 60 POC Glucose (mg/dL) Random Glucose 82 D Calcium 7.5 L Troponin I Arterial Blood Potassium 3.8 Urine Color Urine Clarity Urine pH Ur Specific Primrose Urine Protein Urine Glucose (UA) Urine Ketones Urine Blood Urine Nitrate Urine Bilirubin Urine Urobilinogen Ur Leukocyte Esterase Urine WBC (Auto) Urine RBC (Auto) Ur Squamous Epith Cells Hyaline Casts Urine Opiates Screen Urine Methadone Screen Acetaminophen Ur Barbiturates Screen Ur Phencyclidine Scrn Ur Amphetamines Screen U Benzodiazepines Scrn U Oth Cocaine Metabols U Cannabinoids Screen Alcohol, Quantitative 216 H 01/11/19 01/11/19 01/11/19 16:54 16:57 18:13 WBC RBC Hgb Hct MCV MCH MCHC RDW Plt Count MPV Neut % (Auto) Lymph % (Auto) [place] % (Auto) Eos % (Auto) Baso % (Auto) Neut # (Auto) Lymph # (Auto) [place] # (Auto) Eos # (Auto) Baso # (Auto) Neutrophils % (Manual) Lymphocytes % (Manual) Monocytes % (Manual) Toxic Granulation Platelet Estimate Large Platelets Polychromasia Hypochromasia (manual) Poikilocytosis (manual Anisocytosis (manual) Ovalocytes [place] Cells PT INR APTT Puncture Site pCO2 pO2 HCO3 ABG pH ABG Total CO2 ABG O2 Saturation ABG Base Excess Peter Test ABG Potassium A-a O2 Difference Respiratory Index Glucose Lactate Liter Flow FiO2 Sodium Potassium Chloride Carbon Dioxide Anion Gap BUN Creatinine Est GFR ( Amer) Est GFR (Non-Af Amer) POC Glucose (mg/dL) 65 79 Random Glucose Calcium Troponin I Arterial Blood Potassium Urine Color Urine Clarity Urine pH Ur Specific [place] Urine Protein Urine Glucose (UA) Urine Ketones Urine Blood Urine Nitrate Urine Bilirubin Urine Urobilinogen Ur Leukocyte Esterase Urine WBC (Auto) Urine RBC (Auto) Ur Squamous Epith Cells Hyaline Casts Urine Opiates Screen Negative Urine Methadone Screen Negative Acetaminophen Ur Barbiturates Screen Negative Ur Phencyclidine Scrn Negative Ur Amphetamines Screen Negative U Benzodiazepines Scrn Positive U Oth Cocaine Metabols Negative U Cannabinoids Screen Negative Alcohol, Quantitative 01/11/19 01/11/19 01/11/19 18:13 18:56 18:56 WBC RBC Hgb Hct MCV MCH MCHC RDW Plt Count MPV Neut % (Auto) Lymph % (Auto) [place] % (Auto) Eos % (Auto) Baso % (Auto) Neut # (Auto) Lymph # (Auto) [place] # (Auto) Eos # (Auto) Baso # (Auto) Neutrophils % (Manual) Lymphocytes % (Manual) Monocytes % (Manual) Toxic Granulation Platelet Estimate Large Platelets Polychromasia Hypochromasia (manual) Poikilocytosis (manual Anisocytosis (manual) Ovalocytes Eduardo Cells PT INR APTT Puncture Site pCO2 pO2 HCO3 ABG pH ABG Total CO2 ABG O2 Saturation ABG Base Excess [place] Test ABG Potassium A-a O2 Difference Respiratory Index Glucose Lactate Liter Flow FiO2 Sodium Potassium Chloride Carbon Dioxide Anion Gap BUN Creatinine Est GFR ( Amer) Est GFR (Non-Af Amer) POC Glucose (mg/dL) Random Glucose Calcium Troponin I 0.0390 Arterial Blood Potassium Urine Color Yellow Urine Clarity Hazy Urine pH 5.0 Ur Specific [place]rose 1.016 Urine Protein 1+ H Urine Glucose (UA) Normal Urine Ketones Negative Urine Blood 3+ H Urine Nitrate Negative Urine Bilirubin Negative Urine Urobilinogen Normal Ur Leukocyte Esterase Neg Urine WBC (Auto) 2 Urine RBC (Auto) 31 H Ur Squamous Epith Cells 1 Hyaline Casts 6-10 H Urine Opiates Screen Urine Methadone Screen Acetaminophen < 10.0 L Ur Barbiturates Screen Ur Phencyclidine Scrn Ur Amphetamines Screen U Benzodiazepines Scrn U Oth Cocaine Metabols U Cannabinoids Screen Alcohol, Quantitative Attending/Attestation - Attestation I have personally seen and examined this patient.: Yes I have fully participated in the care of the patient.: Yes I have reviewed all pertinent clinical information: Yes Notes (Text): 01/11/19 19:26 Medical attending: Patient was seen and examined by me. Agree with the above note by the resident The patient commonly comes to the hospital. This time he was found very hypothermic and this is likley related to him being outside as well as using alcohol. He also uses heroine - and he would not intially tell me this until I finally spoke to him forcefully and he admitted using at least 5 bags a day. last time was yesterday - we are checking a UDS The patient also has tachycardia as well, likley related to him using alcohol, we gave a one time dose of cardizem 20 IVP and this helped will start a non titrated cardizem ggt for now Because of the extensive drinking librium and ativan are bieng given Suman Rojas
[2019-01-11 18:41] LABS: BARBITURATES, UR NEGATIVE (NEGATIVE); OPIATES, UR NEGATIVE (NEGATIVE); PHENCYCLIDINE, UR NEGATIVE (NEGATIVE)
[2019-01-11 18:53] LABS: BENZODIAZEPINES, UR POSITIVE (NEGATIVE)
[2019-01-11 20:19] LABS: FOLATE > 20.0 ng/mL
[2019-01-12] MEDS: Piperacill/Tazo 3.375gm in Dex 3.375 GM/50 ML BAG IVPB SCH ×5 (00:22→22:35)
[2019-01-12 08:18] LABS: EOS % 0.1 % (0.0-4.0); MEAN PLATELET VOLUME 8.1 fL (7.2-11.7); MONO # 0.5 K/uL (0.0-0.8); NRBC % 0.1 % (0.0-2.0); WHITE BLOOD COUNT 10.1 K/uL (4.8-10.8)
[2019-01-12 08:28] LABS: BASO % 0.1 % (0.0-2.0); LYMPH # 1.1 K/uL (1.0-4.3); LYMPH % 10.9 % (20.0-40.0); MEAN CORPUSCULAR HEMOGLOBIN 27.9 pg (27.0-31.0); MEAN CORPUSCULAR HGB CONC 32.5 g/dL (33.0-37.0); NEUT # 8.5 K/uL (1.8-7.0); NEUT % 83.9 % (50.0-75.0); RBC 3.22 Mil/uL (4.40-5.90); RED CELL DISTRIBUTION WIDTH 20.7 % (11.5-14.5)
[2019-01-12 08:34] LABS: ALB/GLOB RATIO 1.3 (1.0-2.1); ALBUMIN 2.9 g/dL (3.5-5.0); ALT/SGPT 63 U/L (21-72); AST/SGOT 163 U/L (17-59); BLOOD UREA NITROGEN 27 mg/dL (9-20); CALCIUM 6.8 mg/dl (8.6-10.4); GFR NON-AFRICAN AMERICAN > 60
[2019-01-12] MEDS ORDERED: Influenza Vaccine 60 mcg/0.5 mL SYR (4YR UP) IM ONE ×2 (09:47→10:56)
--- NOTE | 2019-01-12 10:18 | CP.PCM.PN ---
<Juan Miguel Jaramillo - Last Filed: 01/12/19 16:39> Subjective - Date & Time of Evaluation Date of Evaluation: 01/12/19 Time of Evaluation: 10:16 - Subjective Subjective: Medicine Progress Note: Dr. Rojas's Service Patient seen and examined at bedside. Per nursing no acute events occurred overnight .Patient report some shortness of breath during today's visit. Patient denies any chest pain, shortness of breath, fevers, chills, nausea, vomiting, headaches, syncopal episodes, or any other complaints. Objective - Vital Signs/Intake and Output Vital Signs (last 24 hours): Temp Pulse Resp BP Pulse Ox 98.1 F 78 18 124/77 97 01/12/19 07:02 01/12/19 07:02 01/12/19 07:02 01/12/19 07:02 01/12/19 07:02 - Medications Medications: Current Medications Enoxaparin Sodium (Lovenox) 40 mg SC DAILY [facility] Folic Acid (Folic Acid) 1 mg PO DAILY [facility] Piperacillin Sod/Tazobactam Sod (Zosyn 3.375 Gm Iv Premix) 3.375 gm in 50 mls @ 100 mls/hr IVPB Q6H [facility]; Protocol Last Admin: 01/12/19 06:18 Dose: Not Given Diltiazem HCl 125 mg/ Sodium (Chloride) 125 mls @ 5 mls/hr IV .Q24H [facility]; Protocol Last Admin: 01/11/19 23:57 Dose: 5 mg/hr, 5 mls/hr Lorazepam (Ativan) 1 mg IVP Q4H [facility] Last Admin: 01/12/19 09:49 Dose: Not Given Pantoprazole Sodium (Protonix Inj) 40 mg IVP DAILY [facility] Last Admin: 01/12/19 09:47 Dose: 40 mg Thiamine HCl (Vitamin B1 Tab) 100 mg PO DAILY [facility] - Labs Labs: 01/12/19 08:13 01/12/19 08:13 PT 10.3 SECONDS (9.7-12.2) 01/11/19 14:06 INR 0.9 01/11/19 14:06 APTT 31 SECONDS (21-34) 01/11/19 14:06 - Head Exam Head Exam: ATRAUMATIC, NORMAL INSPECTION - Eye Exam Eye Exam: EOMI, Normal appearance, PERRL Pupil Exam: NORMAL ACCOMODATION - ENT Exam ENT Exam: Mucous Membranes Moist, Normal Oropharynx - Respiratory Exam Respiratory Exam: Wheezes, NORMAL BREATHING PATTERN - Cardiovascular Exam Cardiovascular Exam: REGULAR RHYTHM, +S1, +S2 Additional comments: Bilateral foot edema 1+ - GI/Abdominal Exam GI & Abdominal Exam: Soft, Normal Bowel Sounds - Back Exam Back Exam: NORMAL INSPECTION. absent: paraspinal tenderness - Neurological Exam Neurological Exam: Alert, Awake, Oriented x3 - Psychiatric Exam Psychiatric exam: Normal Affect, Normal Mood - Skin Skin Exam: Dry, Intact Assessment and Plan - Assessment and Plan (Free Text) Assessment: 58 year old male with a past medical history of heroin abuse, copd, and polysubstance abuse presents for hypothermia. Plan: 1. Hypothermia -Improving 2. Alcohol abuse/withdrawal -CIWA Protocol -Fall protocol -Seizure protocol Medications: Ativan 1mg IVP Q4 [facility] Folic acid 1mg PO DAILY [facility] Thiamin 100mg PO DAILY [facility] 3.New Onset Atrial fibrillation Likely 2/2 to etoh abuse. Patient has no history of atrial fibrillation in the past Patient also is a fall risk and at this time benefit from anticoagulation doesn't outweigh the risk of bleed. Medications: Cardizem Drip @5mg /hr discontinued Coreg 6.125 PO Daily started. 4.Leukocytosis WBC: 16.9 --->10.1 Blood cultures ordered .Will f/u with results Urine cultures ordered. Will f/u wit results. Likely reactive Medications: Zosyn 3.375mg IVPB Q6 ( patient has refused last 3 dose per Nursing Staff) 5. Anemia -Hemoglobin 12--->9 -No obvious signs of bleeding -Will monitor with serial CBC's PPX -Lovenox -Protonix Plan discussed with Dr. Crystal Jaramillo <Suman Rojas - Last Filed: 01/12/19 17:06> Objective - Vital Signs/Intake and Output Vital Signs (last 24 hours): Temp Pulse Resp BP Pulse Ox 97.6 F 83 20 132/74 96 01/12/19 16:44 01/12/19 16:44 01/12/19 16:44 01/12/19 16:44 01/12/19 16:44 Intake and Output: 01/12/19 01/12/19 06:59 18:59 Intake Total 70 Balance 70 - Medications Medications: Current Medications Carvedilol (Coreg) 6.25 mg PO DAILY [facility] Last Admin: 01/12/19 16:11 Dose: 6.25 mg Enoxaparin Sodium (Lovenox) 40 mg SC DAILY [facility] Last Admin: 01/12/19 11:16 Dose: Not Given Folic Acid (Folic Acid) 1 mg PO DAILY [facility] Last Admin: 01/12/19 10:28 Dose: Not Given Piperacillin Sod/Tazobactam Sod (Zosyn 3.375 Gm Iv Premix) 3.375 gm in 50 mls @ 100 mls/hr IVPB Q6H [facility]; Protocol Last Admin: 01/12/19 16:31 Dose: 100 mls/hr Lorazepam (Ativan) 1 mg IVP Q4H [facility] Last Admin: 01/12/19 14:34 Dose: Not Given Pantoprazole Sodium (Protonix Inj) 40 mg IVP DAILY [facility] Last Admin: 01/12/19 09:47 Dose: 40 mg Thiamine HCl (Vitamin B1 Tab) 100 mg PO DAILY [facility] Last Admin: 01/12/19 10:29 Dose: Not Given - Labs Labs: 01/12/19 08:13 01/12/19 08:13 PT 10.3 SECONDS (9.7-12.2) 01/11/19 14:06 INR 0.9 01/11/19 14:06 APTT 31 SECONDS (21-34) 01/11/19 14:06 Attending/Attestation - Attestation I have personally seen and examined this patient.: Yes I have fully participated in the care of the patient.: Yes I have reviewed all pertinent clinical information, including history, physical exam and plan: Yes Notes (Text): 01/12/19 17:03 Medical attending: Patient was seen and examined by me. Agree with the above note by the resident Patient was awake, however very somulent today - we will hold the ativan for now. The patient was outside drinking alcohol yesterday and was found to be very hypothermic. Conitnue on the IV abx, monitor the blood cultures The cardizem ggt can be stopped at some point as he appears to be in NSR on the telemetry Likley the afib with RVR was from the alcohol (holiday heart) like affect. I would be somewhat reluctant to anticoagulate patient in the future only because of his history Patient will be transffered tommorow to the patient's primary service thank you Suman Rojas
[2019-01-12] MEDS: Enoxaparin 40 mg Syringe SC SCH (11:16)
[2019-01-12 12:14] LABS: TROPONIN I 0.044 ng/mL (0.00-0.120)
[2019-01-12] MEDS ORDERED: guaiFENesin DM 200 mg-20 mg/10 ml UD PO ONE (21:49)
[2019-01-13] MEDS ORDERED: Albuterol-Ipratrop 3 mg / 0.5 (3 ml) UD INH STA ×5 (03:23→05:37)
[2019-01-13] MEDS ORDERED: MethylPREDNISolone 40 mg Vial IVP STA ×2 (03:34→05:38)
--- NOTE | 2019-01-13 03:41 | PCM.RRT ---
[employer] ASSOCIATE TEACHER Nurses Assessment - Situation Date: 01/13/19 Time [employer]IL[employer] ASSOCIATE TEACHER was called: 03:08 [employer]IATE TEACHER Responder Arrival Time:: 03:09 [employer]IATE TEACHER Location:: Med/Surg Room Number: 562B [employer]IATE TEACHER Reason for Call: Respiratory Distress [employer]IL[employer] ASSOCIATE TEACHER Called By: RN - IV IV Inserted during EARLY CHIL[employer] ASSOCIATE TEACHER?: No IV Fluids Initiated During [employer] ASSOCIATE TEACHER?: none - Respiratory [employer] ASSOCIATE TEACHER Delivery Method: Nasal Cannula @L/min (3), Non Rebreather @% Oxygen Flow Rate: 3 Received Nebulizer Treatments: Yes (Duoneb x2) Was the Patient Ventilated with Bag/Mask 100% O2?: No Secretions Suctioned?: No Was the Patient Intubated?: No Was the Patient Placed on a Ventilator?: No - Medication Medications Administered During E[employer]DH[employer] ASSOCIATE TEACHER: none - Diagnostic Test Ordered EKG: No Chest X-Ray: Yes CT Scan: No - Stat Labs Ordered [employer] ASS[employer]IATE TEACHER Stat Labs Ordered: ABG CPR started during EAR[employer]IL[employer] ASSOCIATE TEACHER?: No - Vital Signs Vital Signs: 97.6 F 170/80 HR 88 RR 22 90% on 3 L - [place] Coma Scale Coma Scale Eye Opening: To verbal stimuli Coma Scale Motor: Obeys Commands Movement Coma Scale Verbal: Confused/able to answer Coma Scale Total: 13 - Time [employer] ASSOCIATE TEACHER Ended Time [employer] ASSOCIATE TEACHER Ended: 03:50 - Vital Signs at end of [employer] ASSOCIATE TEACHER Vital Signs at end of [employer] ASSOCIATE TEACHER: HR 90 RR 20 99% on 3 L - Recommendations 5) E[employer]IATE TEACHER Level of Care Recommendations: Remain in current setting Notifications: Attending Physician I.Reason for E[employer]IL[employer] ASSOCIATE TEACHER - A) Acute Change in Patient: (Select all that apply): Acute change in respiratory rate less than 8 or greater than 28 Subjective: [employer] alerted RN that patient was in respiratory distress. RN noted patient using accessory muscles and saturation 90% on 3 L, and she called [employer] ASSOCIATE TEACHER. Patient was admitted 2 days ago for hypothermia and alcohol use. RN reported patient lethargic all day. Last dose of Ativan 1 mg was at 23:30. Next dose held due to lethargy. Patient is responsive to verbal and painful stimuli. He is oriented to person and knows he is in a hospital. He states that his abdomen hurts. He is very lethargic throughout exam. Patient placed on nonrebreather and saturation went up to 99-100%. Stat CXR shows hyperinflation consistent with COPD. Patient received Duoneb breathing treatment and was placed back on NC. - Neurological Status (Select all that apply): Alert, Verbal, Follows Commands, Disoriented, Confused, Lethargic - Respiratory Oxygen Delivery Method: Nasal Cannula @L/min (3) Oxygen Flow Rate: 3 - Constitutional Appears: Non-toxic, In Acute Distress - Head Head Exam: ATRAUMATIC, NORMAL INSPECTION - Eyes Eye Exam: EOMI, Normal appearance, PERRL - Respiratory Exam Respiratory Exam: Accessory Muscle Use, Prolonged Expiratory Phase, Respiratory Distress - Cardiovascular Exam Cardiovascular Exam: RRR, +S1, +S2 - GI/Abdominal Exam GI & Abdominal Exam: Soft, Tenderness. absent: Distended - Neurological Exam Neurological Exam: Alert, Altered. absent: Oriented x3 - Extremities Exam Extremities Exam: Normal Inspection. absent: Pedal Edema Plan - Assessment of Findings&Treatment Plan - Nonrebreather then back to NC 3 L - Stat CXR - Stat ABG - Stat Duoneb x2 - Start Duoneb Q4H [facility] - Start Pulmicort Q12H
[2019-01-13 04:00] LABS: ABG ALLEN TEST YES; ARTERIAL BLOOD GAS HCO3 27.8 mmol/L (21-28); ARTERIAL BLOOD GAS O2 SAT 100.2 % (95-98); ARTERIAL BLOOD GAS PCO2 67 mm/Hg (35-45); ARTERIAL BLOOD GAS PH 7.29 (7.35-7.45); ARTERIAL BLOOD GAS PO2 117 mm/Hg (80-100); ARTERIAL BLOOD GAS TCO2 34.3 mmol/L (22-28)
[2019-01-13] MEDS: Piperacill/Tazo 3.375gm in Dex 3.375 GM/50 ML BAG IVPB SCH ×4 (04:30→23:49)
[2019-01-13] MEDS ORDERED: Racepinephrine 2.25% Inhal Soln 0.5 ML UD INH ONE (05:53)
--- NOTE | 2019-01-13 05:54 | PCM.RRT ---
<Hillary Kumar - Last Filed: 01/13/19 06:53> [employer] RESIDENT Nurses Assessment - Situation Date: 01/13/19 Time [employer] RESIDENT was called: 05:28 [employer] RESIDENT Responder Arrival Time:: 05:30 [employer] RESIDENT Location:: Med/Surg Room Number: 562B [employer] RESIDENT Reason for Call: Respiratory Distress, O2 Saturation below 90% [employer] RESIDENT Called By: RN - IV IV Inserted during [employer]GERY RESIDENT?: No IV Fluids Initiated During [employer]ILL[employer]IAL SURGERY RESIDENT?: none - Respiratory [employer] RESIDENT Delivery Method: Nasal Cannula @L/min (5) Oxygen Flow Rate: 5 Received Nebulizer Treatments: Yes (Duoneb x3) Was the Patient Ventilated with Bag/Mask 100% O2?: No Secretions Suctioned?: Yes Was the Patient Intubated?: No Was the Patient Placed on a Ventilator?: No - Medication Medications Administered During [employer]ILL[employer]IAL SURGERY RESIDENT: Duoneb, Racemic epi, Solu-medrol - Diagnostic Test Ordered EKG: No Chest X-Ray: No (ordered during previous [employer] AND [employer]ILLOF[employer]IAL SURGERY RESIDENT) CT Scan: No CPR started during [employer]ILL[employer]IAL SURGERY RESIDENT?: No - Vital Signs Vital Signs: 168/75 HR 95 spO2 88% on 5 L - [place] Coma Scale Coma Scale Eye Opening: To verbal stimuli Coma Scale Motor: Movement to pain stimulus Coma Scale Verbal: Confused/able to answer Coma Scale Total: 12 - Time [employer] SURGERY RESIDENT Ended Time [employer]ILL[employer]IAL SURGERY RESIDENT Ended: 06:05 - Vital Signs at end of [employer]ILL[employer]IAL SURGERY RESIDENT Vital Signs at end of ORAL AND MAXILLOFACIAL SURGERY RESIDENT: HR>100 spO2 78% on 5 L - Recommendations 5) [employer] AND [employer]ILLOFACIAL SURGERY RESIDENT Level of Care Recommendations: Transfer to ICU Notifications: Attending Physician I.Reason for [employer]ILL[employer]IAL SURGERY RESIDENT - A) Acute Change in Patient: (Select all that apply): Acute change in respiratory rate less than 8 or greater than 28, Acute change in SpO2 less Subjective: [employer]GERY RESIDENT called by charge nurse for spO2 88% on 5 L NC. [employer]GERY RESIDENT called about 2 hours earlier during which patient was in respiratory distress and treated with nebulizer and steroids. Patient again appears in respiratory distress, using accessory muscles. He also has stridor and is not as verbal as earlier in the evening. Patient was suctioned nasally and orally with some appearance of blood. Patient given more stat nebulizer treatments and steroids. BiPAP ordered. ICU consulted and accepted the patient for transfer. - Neurological Status (Select all that apply): Alert, Responsive, Disoriented, Confused, Lethargic, Weakness - Respiratory Oxygen Delivery Method: Nasal Cannula @L/min (3) Oxygen Flow Rate: 5 - Constitutional Appears: In Acute Distress - Head Head Exam: ATRAUMATIC, NORMAL INSPECTION - Eyes Eye Exam: EOMI, Normal appearance, PERRL - Respiratory Exam Respiratory Exam: Accessory Muscle Use, Decreased Breath Sounds, Wheezes, Respiratory Distress, Stridor - Cardiovascular Exam Cardiovascular Exam: Tachycardia, REGULAR RHYTHM, +S1, +S2 - GI/Abdominal Exam GI & Abdominal Exam: Soft. absent: Distended, Tenderness - Neurological Exam Neurological Exam: Alert, Altered, Awake. absent: Oriented x3 Additional exam: lethargic - Extremities Exam Extremities Exam: Normal Inspection. absent: Pedal Edema Plan - Assessment of Findings&Treatment Plan - Stat Duoneb x3 - Stat Racemic epi - Stat Solu-medrol 60 mg IV - BiPAP - ICU consult - Transfer patient to ICU <Phillip Dey P - Last Filed: 01/14/19 07:02> [employer]GERY RESIDENT Nurses Assessment - Vital Signs Vital Signs: Rapid Response Vital Sign Blood Pressure 155/83 Pulse Rate 97 Oxygen Saturation 68 - Vital Signs at end of [employer]ILL[employer]IAL SURGERY RESIDENT Vital Signs at end of [employer] AND [employer]ILLOFACIAL SURGERY RESIDENT: Rapid Response End Vital Sign Blood Pressure 143/70 Pulse Rate 95 O2 Sat by Pulse Oximetry 100 Attending/Attestation - Attestation I have personally seen and examined this patient.: Yes I have fully participated in the care of the patient.: Yes I have reviewed all pertinent clinical information, including history, physical exam and plan: Yes Notes (Text): 01/14/19 06:59 Patient assessed with resident during both [employer]ILL[employer]ACIAL SURGERY RESIDENT's , initially more of expiratory prolongation, COPD picture, not also had some stridor, patient assessed at bedside by Dr. Bragg covering ICU plan watch if improvement with racemic epi, additional steroid, duoneb in ICU if not will need to be intubated.
--- NOTE | 2019-01-13 06:39 | CP.PCM.CON ---
History of Present Illness - History of Present Illness History of Present Illness: Atteneing: Dr Shafer PMD: Dr Gonzalez Reason for Consult: Critical care management Chief Complaint: SOB/Stridor The patient was seen and examined on the MedSurg unit HPI: The hx is obtyained from the laboratory, radiological and the medical records, as the patient is in Severe SOB. this is a 58 years old male with hx of COPD/Asthma, HTN and Alcohol abuse who was admitted on 01/11/19 with alcohol intoxication, hypothermic, tachycardic and possibly alcohol withdrawal. Rapid response Team was called on AM of 01/13/19 because of SOB and Hypoxia. the patient was treated with some relief. Two hours later SALES AND SERVICE ENGINEER was again called because of SOB, using accessory muscles of respiration, Stridor and Desaturation with blood on Oropharyngeal suctioning. the patient was treated with Duoneb and Rasmic epinephrine and transferred to ICU for closer observation with possible intubation. PMH: Asthma/ COPd; Depression/ Anxiety; gastritis; gastric Ulcer; HTN; BPH; Pneumonia PSH: Tonsillitis; Appendicitis; Perforated Peptic Ulcer surgery SH: Heavy tobacco use; Alcohol use; Marijuana and Heeroin use; Homeless FH: Unknown, Adapted Allergies: NKDA Medication: Reviewed Review of Systems - Review of Systems Review of Systems: Review of system limited because of the patients condition Past Patient History - Infectious Disease Hx of Infectious Diseases: None - Tetanus Immunizations Tetanus Immunization: Unknown - Past Medical History & Family History Past Medical History?: Yes - Past Social History Smoking Status: Heavy Smoker > 10 Cigarettes Daily Chewing Tobacco Use: No Cigar Use: No Alcohol: > 2 Drinks/Day Drugs: Cannabis, Opiates Home Situation {Lives}: Homeless - CARDIAC Hx Atrial Fibrillation: No Hx Cardia Arrhythmia: No Hx Congestive Heart Failure: No Hx Hypercholesterolemia: No Hx Hypertension: Yes Hx Mitral Valve Prolapse: No Hx Pacemaker: No Hx Peripheral Edema: No - PULMONARY Hx Asthma: Yes Hx Bronchitis: Yes Hx Chronic Obstructive Pulmonary Disease (COPD): Yes Hx Emphysema: No Hx Pneumonia: Yes Hx Pulmonary Embolism: No Hx Sleep Apnea: No - NEUROLOGICAL Hx Alzheimer's Disease: No Hx Dementia: No Hx Migraine: No Hx Multiple Sclerosis: No Hx Parkinson's Disease: No Hx Seizures: No Hx Transient Ischemic Attacks (TIA): No - HEENT Hx HEENT Problems: No Hx Blind: No Hx Cataracts: No Hx Deafness: No Hx Difficulty Chewing: No Hx Epistaxis: No Hx Glaucoma: No Hx Macular Degeneration: No - RENAL Hx Chronic Kidney Disease: No Hx Kidney Stones: No - ENDOCRINE/METABOLIC Hx Hyperthyroidism: No Hx Hypothyroidism: No - HEMATOLOGICAL/ONCOLOGICAL Hx Anemia: No Hx Human Immunodeficiency Virus (HIV): No Hx Sickle Cell Disease: No - INTEGUMENTARY Hx Dermatological Problems: No Hx Basil Cell: No Hx Wu: No Hx Cellulitis: No Hx Eczema: No Hx Melanoma: No Hx Psoriasis: No Hx Squamous Cell: No - MUSCULOSKELETAL/RHEUMATOLOGICAL Hx Arthritis: No Hx Fractures: No Hx Osteoporosis: No Hx Rheumatoid Arthritis: No - GASTROINTESTINAL Hx Crohn's Disease: No Hx Diverticulitis: No Hx Gall Bladder Disease: No Hx Gastritis: Yes Hx Pancreatitis: No - GENITOURINARY/GYNECOLOGICAL Hx Sexually Transmitted Disorders: No - PSYCHIATRIC Hx Anxiety: Yes Hx Bipolar Disorder: No Hx Depression: Yes Hx Paranoia: No Hx Post Traumatic Stress Disorder: No Hx Schizophrenia: No Hx Substance Use: Yes - SURGICAL HISTORY Hx Appendectomy: Yes Hx Carotid Endarterectomy: No Hx Cholecystectomy: No Hx Coronary Artery Bypass Graft: No Hx Coronary Stent: No Hx Tonsillectomy: Yes - ANESTHESIA Hx Anesthesia: Yes Hx Anesthesia Reactions: No Hx Malignant Hyperthermia: No Meds Allergies/Adverse Reactions: Allergies Allergy/AdvReac Type Severity Reaction Status Date / Time No Known Allergies Allergy Verified 01/11/19 13:59 - Medications Medications: Current Medications Albuterol/Ipratropium (Duoneb 3 Mg/0.5 Mg (3 Ml) Ud) 3 ml INH RQ4 [facility] Budesonide (Pulmicort Respules) 0.5 mg INH RQ12 [facility] Carvedilol (Coreg) 6.25 mg PO DAILY [facility] Last Admin: 01/12/19 16:11 Dose: 6.25 mg Enoxaparin Sodium (Lovenox) 40 mg SC DAILY [facility] Last Admin: 01/12/19 11:16 Dose: Not Given Folic Acid (Folic Acid) 1 mg PO DAILY [facility] Last Admin: 01/12/19 10:28 Dose: Not Given Piperacillin Sod/Tazobactam Sod (Zosyn 3.375 Gm Iv Premix) 3.375 gm in 50 mls @ 100 mls/hr IVPB Q6H [facility]; Protocol Last Admin: 01/13/19 04:30 Dose: 100 mls/hr Lorazepam (Ativan) 1 mg IVP Q4H [facility] Last Admin: 01/13/19 02:42 Dose: Not Given Pantoprazole Sodium (Protonix Inj) 40 mg IVP DAILY [facility] Last Admin: 01/12/19 09:47 Dose: 40 mg Racepinephrine (Racepinephrine 2.25% Inhl Soln) 0.5 ml INH ONCE ONE Stop: 01/13/19 05:54 Thiamine HCl (Vitamin B1 Tab) 100 mg PO DAILY [facility] Last Admin: 01/12/19 10:29 Dose: Not Given Physical Exam - Constitutional Appears: No Acute Distress - Head Exam Head Exam: ATRAUMATIC, NORMAL INSPECTION, NORMOCEPHALIC - Eye Exam Eye Exam: EOMI, Normal appearance Pupil Exam: NORMAL ACCOMODATION, PERRL - ENT Exam ENT Exam: Mucous Membranes Dry, Normal Exam, Normal External Ear Exam - Neck Exam Neck exam: Positive for: Full Rom, Normal Inspection. Negative for: Lymphadenopathy, Tenderness - Respiratory Exam Additional comments: Decreased breath sounds at both lung bases. Inspiration Stridor, right base pectoriloquy, no rales, - Cardiovascular Exam Cardiovascular Exam: REGULAR RHYTHM, RRR, +S1, +S2 - GI/Abdominal Exam GI & Abdominal Exam: Normal Bowel Sounds, Soft. absent: Mass, Organomegaly, Tenderness - Rectal Exam Rectal Exam: Deferred - Extremities Exam Extremities exam: Positive for: pedal edema, pedal pulses present. Negative for: calf tenderness - Back Exam Back exam: NORMAL INSPECTION. absent: CVA tenderness (L), CVA tenderness (R) - Neurological Exam Neurological exam: CN II-XII Intact, Reflexes Normal Additional comments: Mild lethargy, arousable answers to questions with monosyllables - Psychiatric Exam Psychiatric exam: Flat Affect - Skin Skin Exam: Dry, Intact, Normal Color Results - Vital Signs Recent Vital Signs: Last Vital Signs Temp 99.7 F H 01/12/19 23:07 Pulse 110 H 01/13/19 06:33 Resp 20 01/12/19 23:07 BP 137/85 01/12/19 23:07 Pulse Ox 90 L 01/12/19 23:07 - Labs Result Diagrams: 01/13/19 07:43 01/13/19 07:43 Labs: Laboratory Results - last 24 hr 01/12/19 01/12/19 01/12/19 08:13 08:13 08:13 WBC 10.1 RBC 3.22 L Hgb 9.0 L D Hct 27.7 L MCV 86.0 MCH 27.9 MCHC 32.5 L RDW 20.7 H Plt Count 228 MPV 8.1 Neut % (Auto) 83.9 H Lymph % (Auto) 10.9 L [place] % (Auto) 5.0 Eos % (Auto) 0.1 Baso % (Auto) 0.1 Neut # (Auto) 8.5 H Lymph # (Auto) 1.1 [place] # (Auto) 0.5 Eos # (Auto) 0.0 Baso # (Auto) 0.0 Puncture Site pCO2 pO2 HCO3 ABG pH ABG Total CO2 ABG O2 Saturation ABG Base Excess Peter Test ABG Potassium A-a O2 Difference Respiratory Index Glucose Lactate FiO2 Sodium 135 Potassium 4.2 Chloride 102 Carbon Dioxide 30 Anion Gap 7 L BUN 27 H Creatinine 0.6 L Est GFR ( Amer) > 60 Est GFR (Non-Af Amer) > 60 POC Glucose (mg/dL) Random Glucose 79 Calcium 6.8 L Total Bilirubin 0.6 AST 163 H D ALT 63 Alkaline Phosphatase 67 Total Creatine Kinase CK-MB (Mass) Troponin I 0.0600 Total Protein 5.0 L Albumin 2.9 L D Globulin 2.1 L Albumin/Globulin Ratio 1.3 Arterial Blood Potassium 01/12/19 01/12/19 01/13/19 11:29 19:59 03:17 WBC RBC Hgb Hct MCV MCH MCHC RDW Plt Count MPV Neut % (Auto) Lymph % (Auto) [place] % (Auto) Eos % (Auto) Baso % (Auto) Neut # (Auto) Lymph # (Auto) [place] # (Auto) Eos # (Auto) Baso # (Auto) Puncture Site pCO2 pO2 HCO3 ABG pH ABG Total CO2 ABG O2 Saturation ABG Base Excess Peter Test ABG Potassium A-a O2 Difference Respiratory Index Glucose Lactate FiO2 Sodium Potassium Chloride Carbon Dioxide Anion Gap BUN Creatinine Est GFR ( Amer) Est GFR (Non-Af Amer) POC Glucose (mg/dL) 115 H Random Glucose Calcium Total Bilirubin AST ALT Alkaline Phosphatase Total Creatine Kinase 3880 H CK-MB (Mass) 38.0 H Troponin I 0.0440 0.0250 Total Protein Albumin Globulin Albumin/Globulin Ratio Arterial Blood Potassium 01/13/19 03:46 WBC RBC Hgb Hct MCV MCH MCHC RDW Plt Count MPV Neut % (Auto) Lymph % (Auto) [place] % (Auto) Eos % (Auto) Baso % (Auto) Neut # (Auto) Lymph # (Auto) [place] # (Auto) Eos # (Auto) Baso # (Auto) Puncture Site Rr pCO2 67 H pO2 117 H HCO3 27.8 ABG pH 7.29 L ABG Total CO2 34.3 H ABG O2 Saturation 100.2 H ABG Base Excess 3.6 H Peter Test Yes ABG Potassium 3.8 A-a O2 Difference -1.0 Respiratory Index 0 Glucose 85 Lactate 0.4 L FiO2 28.0 Sodium 141.0 Potassium Chloride 111.0 H Carbon Dioxide Anion Gap BUN Creatinine Est GFR ( Amer) Est GFR (Non-Af Amer) POC Glucose (mg/dL) Random Glucose Calcium Total Bilirubin AST ALT Alkaline Phosphatase Total Creatine Kinase CK-MB (Mass) Troponin I Total Protein Albumin Globulin Albumin/Globulin Ratio Arterial Blood Potassium 3.8 - Imaging and Cardiology Chest x-ray Status: Image reviewed by me Additional comment: No infiltrate Assessment & Plan - Assessment and Plan (Free Text) Plan: 58 years old male with hx of COPD/Asthma, Alcohol abuse, admitted on 01/11/19 with alcohol intoxication, . Rapid response, 1st SALES AND SERVICE ENGINEER because of SOB and Hypoxia. He was treated with some relief. 2nd SALES AND SERVICE ENGINEER two hours later because of SOB, Stridor and Desaturation with blood on Oropharyngeal suctioning. #. Acute Hypercapnic respiratory failure AGB pH 7.29/ 67/ 117/ 27 - BIPAP settings I/E 12/6 rate of 8 an dFiO2 of 40% #. Larybngeal irritation with Stridor probably due to Laryngesl due to coughing vs bleeding and edema about the larynges - Rasmic Epinephrine - Steroids - Transfer to ICU for possible intubation #. COPD exacerbation - Duoneb - Methylprednisolone - D/c Coreg #. Anemia. - Follow CBC #. Leukocytosis. Reactive and Steroid use - Patient is on zosyn - follow CBC/ blood and urine culture #. Alcohol withdrawal - CIWA protocol - Folic Acid - Thiamine #. New Unset A Fib now back to R - [facility] PO - Cardiac Monitoring Gennaro Bragg MD - Date & Time Date: 01/13/19 Time: 06:39
--- NOTE | 2019-01-13 07:22 | CP.CCUPN ---
<Deandre Butler M - Last Filed: 01/13/19 14:30> CCU Subjective - Physician Review Subjective (Free Text): Critical Care Consult Note for Dr. Holman. Patient seen and examined at bedside. 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 Patient received duonebs, steroids, and placed on BIPAP. This AM patient still is lethargic as yesterday. Unable to obtain ROS as patient is still lethargic and unable to answer questions. CCU Objective - Vital Signs / Intake & Output Vital Signs (Last 4 hours): Vital Signs Pulse 01/13/19 06:33 110 H Intake and Output (Last 8hrs): Intake & Output 01/12/19 01/13/19 01/13/19 22:59 06:59 14:59 Intake Total 800 Output Total 800 Balance 0 Intake: Intake, IV Amount 200 Right Upper arm 200 Oral 600 Output: Urine 800 Urine, Voided 800 - Physical Exam Physical Exam Limitations: Positive for: Clinical Condition, Other (patient is lethargic and on ativap for ETOH consumption ) Conjunctiva: Positive for: Normal Mouth: Positive for: Moist Mucous Membranes Neck: Positive for: Normal Range of Motion Respiratory/Chest: Positive for: Decreased Breath Sounds, Rhonchi Cardiovascular: Positive for: Normal S1, S2. Negative for: Murmurs Abdomen: Positive for: Normal Bowel Sounds. Negative for: Tenderness, Distention Upper Extremity: Positive for: Normal Inspection. Negative for: Cyanosis, Edema Lower Extremity: Positive for: Normal Inspection. Negative for: Edema Skin: Positive for: Warm, Dry, Rashes, Normal Color Psychiatric: Positive for: Lethargic - Medications Active Medications: Active Medications Generic Name Dose Route Start Last Admin Trade Name Freq PRN Reason Stop Dose Admin Albuterol/Ipratropium 3 ml 01/13/19 04:00 Duoneb 3 Mg/0.5 Mg (3 Ml) Ud INH RQ4 FERNANDA Budesonide 0.5 mg 01/13/19 08:00 Pulmicort Respules INH RQ12 FERNANDA Diltiazem HCl 30 mg 01/13/19 10:00 Cardizem PO QID FERNANDA Enoxaparin Sodium 40 mg 01/12/19 10:00 01/12/19 11:16 Lovenox SC Not Given DAILY FERNANDA Folic Acid 1 mg 01/12/19 10:00 01/12/19 10:28 Folic Acid PO Not Given DAILY [facility] Piperacillin Sod/Tazobactam Sod 3.375 gm in 50 mls @ 100 mls/hr 01/11/19 17:30 01/13/19 04:30 Zosyn 3.375 Gm Iv Premix IVPB 100 mls/hr Q6H FERNANDA Administration Protocol Lorazepam 1 mg 01/11/19 22:30 01/13/19 02:42 Ativan IVP Not Given Q4H FERNANDA Methylprednisolone 40 mg 01/13/19 12:00 Solu-Medrol IVP Q6H FERNANDA Pantoprazole Sodium 40 mg 01/12/19 10:00 01/12/19 09:47 Protonix Inj IVP 40 mg DAILY FERNANDA Administration Thiamine HCl 100 mg 01/12/19 10:00 01/12/19 10:29 Vitamin B1 Tab PO Not Given DAILY FERNANDA - Patient Studies Lab Studies: Microbiology Studies 01/11/19 17:00 Blood Culture - Preliminary Blood NO GROWTH AFTER 24 HOURS 01/11/19 14:30 Blood Culture - Preliminary Blood NO GROWTH AFTER 24 HOURS 01/11/19 18:13 Urine Culture - Preliminary Urine,Catheterized No growth. Lab Studies 01/13/19 01/13/19 01/12/19 Range/Units 03:46 03:17 19:59 WBC (4.8-10.8) K/uL RBC (4.40-5.90) Mil/uL Hgb (12.0-18.0) g/dL Hct (35.0-51.0) % MCV (80.0-94.0) fL MCH (27.0-31.0) pg MCHC (33.0-37.0) g/dL RDW (11.5-14.5) % Plt Count (130-400) K/uL MPV (7.2-11.7) fL Neut % (Auto) (50.0-75.0) % Lymph % (Auto) (20.0-40.0) % [place] % (Auto) (0.0-10.0) % Eos % (Auto) (0.0-4.0) % Baso % (Auto) (0.0-2.0) % Neut # (Auto) (1.8-7.0) K/uL Lymph # (Auto) (1.0-4.3) K/uL [place] # (Auto) (0.0-0.8) K/uL Eos # (Auto) (0.0-0.7) K/uL Baso # (Auto) (0.0-0.2) K/uL Puncture Site Rr pCO2 67 H (35-45) mm/Hg pO2 117 H (80-100) mm/Hg HCO3 27.8 (21-28) mmol/L ABG pH 7.29 L (7.35-7.45) ABG Total CO2 34.3 H (22-28) mmol/L ABG O2 Saturation 100.2 H (95-98) % ABG Base Excess 3.6 H (-2.0-3.0) mmol/L Peter Test Yes ABG Potassium 3.8 (3.6-5.2) mmol/L A-a O2 Difference -1.0 mm/Hg Respiratory Index 0 Glucose 85 (75-110) mg/dl Lactate 0.4 L (0.7-2.1) mmol/L FiO2 28.0 % Sodium 141.0 (132-148) mmol/L Potassium (3.6-5.2) mmol/L Chloride 111.0 H (98-107) mmol/L Carbon Dioxide (22-30) mmol/L Anion Gap (10-20) BUN (9-20) mg/dL Creatinine (0.8-1.5) mg/dL Est GFR ( Amer) Est GFR (Non-Af Amer) POC Glucose (mg/dL) 115 H (65-110) mg/dL Random Glucose (75-110) mg/dL Calcium (8.6-10.4) mg/dl Total Bilirubin (0.2-1.3) mg/dL AST (17-59) U/L ALT (21-72) U/L Alkaline Phosphatase (38-126) U/L Total Creatine Kinase (55-170) U/L CK-MB (Mass) (0.0-3.38) ng/mL Troponin I 0.0250 (0.00-0.120) ng/mL Total Protein (6.3-8.3) g/dL Albumin (3.5-5.0) g/dL Globulin (2.2-3.9) gm/dL Albumin/Globulin Ratio (1.0-2.1) Arterial Blood Potassium 3.8 (3.6-5.2) mmol/L 01/12/19 01/12/19 01/12/19 Range/Units 11:29 08:13 08:13 WBC (4.8-10.8) K/uL RBC (4.40-5.90) Mil/uL Hgb (12.0-18.0) g/dL Hct (35.0-51.0) % MCV (80.0-94.0) fL MCH (27.0-31.0) pg MCHC (33.0-37.0) g/dL RDW (11.5-14.5) % Plt Count (130-400) K/uL MPV (7.2-11.7) fL Neut % (Auto) (50.0-75.0) % Lymph % (Auto) (20.0-40.0) % [place] % (Auto) (0.0-10.0) % Eos % (Auto) (0.0-4.0) % Baso % (Auto) (0.0-2.0) % Neut # (Auto) (1.8-7.0) K/uL Lymph # (Auto) (1.0-4.3) K/uL [place] # (Auto) (0.0-0.8) K/uL Eos # (Auto) (0.0-0.7) K/uL Baso # (Auto) (0.0-0.2) K/uL Puncture Site pCO2 (35-45) mm/Hg pO2 (80-100) mm/Hg HCO3 (21-28) mmol/L ABG pH (7.35-7.45) ABG Total CO2 (22-28) mmol/L ABG O2 Saturation (95-98) % ABG Base Excess (-2.0-3.0) mmol/L Peter Test ABG Potassium (3.6-5.2) mmol/L A-a O2 Difference mm/Hg Respiratory Index Glucose (75-110) mg/dl Lactate (0.7-2.1) mmol/L FiO2 % Sodium 135 (132-148) mmol/L Potassium 4.2 (3.6-5.2) mmol/L Chloride 102 (98-107) mmol/L Carbon Dioxide 30 (22-30) mmol/L Anion Gap 7 L (10-20) BUN 27 H (9-20) mg/dL Creatinine 0.6 L (0.8-1.5) mg/dL Est GFR ( Amer) > 60 Est GFR (Non-Af Amer) > 60 POC Glucose (mg/dL) (65-110) mg/dL Random Glucose 79 (75-110) mg/dL Calcium 6.8 L (8.6-10.4) mg/dl Total Bilirubin 0.6 (0.2-1.3) mg/dL AST 163 H D (17-59) U/L ALT 63 (21-72) U/L Alkaline Phosphatase 67 (38-126) U/L Total Creatine Kinase 3880 H (55-170) U/L CK-MB (Mass) 38.0 H (0.0-3.38) ng/mL Troponin I 0.0440 0.0600 (0.00-0.120) ng/mL Total Protein 5.0 L (6.3-8.3) g/dL Albumin 2.9 L D (3.5-5.0) g/dL Globulin 2.1 L (2.2-3.9) gm/dL Albumin/Globulin Ratio 1.3 (1.0-2.1) Arterial Blood Potassium (3.6-5.2) mmol/L 01/12/19 Range/Units 08:13 WBC 10.1 (4.8-10.8) K/uL RBC 3.22 L (4.40-5.90) Mil/uL Hgb 9.0 L D (12.0-18.0) g/dL Hct 27.7 L (35.0-51.0) % MCV 86.0 (80.0-94.0) fL MCH 27.9 (27.0-31.0) pg MCHC 32.5 L (33.0-37.0) g/dL RDW 20.7 H (11.5-14.5) % Plt Count 228 (130-400) K/uL MPV 8.1 (7.2-11.7) fL Neut % (Auto) 83.9 H (50.0-75.0) % Lymph % (Auto) 10.9 L (20.0-40.0) % [place] % (Auto) 5.0 (0.0-10.0) % Eos % (Auto) 0.1 (0.0-4.0) % Baso % (Auto) 0.1 (0.0-2.0) % Neut # (Auto) 8.5 H (1.8-7.0) K/uL Lymph # (Auto) 1.1 (1.0-4.3) K/uL [place] # (Auto) 0.5 (0.0-0.8) K/uL Eos # (Auto) 0.0 (0.0-0.7) K/uL Baso # (Auto) 0.0 (0.0-0.2) K/uL Puncture Site pCO2 (35-45) mm/Hg pO2 (80-100) mm/Hg HCO3 (21-28) mmol/L ABG pH (7.35-7.45) ABG Total CO2 (22-28) mmol/L ABG O2 Saturation (95-98) % ABG Base Excess (-2.0-3.0) mmol/L Peter Test ABG Potassium (3.6-5.2) mmol/L A-a O2 Difference mm/Hg Respiratory Index Glucose (75-110) mg/dl Lactate (0.7-2.1) mmol/L FiO2 % Sodium (132-148) mmol/L Potassium (3.6-5.2) mmol/L Chloride (98-107) mmol/L Carbon Dioxide (22-30) mmol/L Anion Gap (10-20) BUN (9-20) mg/dL Creatinine (0.8-1.5) mg/dL Est GFR ( Amer) Est GFR (Non-Af Amer) POC Glucose (mg/dL) (65-110) mg/dL Random Glucose (75-110) mg/dL Calcium (8.6-10.4) mg/dl Total Bilirubin (0.2-1.3) mg/dL AST (17-59) U/L ALT (21-72) U/L Alkaline Phosphatase (38-126) U/L Total Creatine Kinase (55-170) U/L CK-MB (Mass) (0.0-3.38) ng/mL Troponin I (0.00-0.120) ng/mL Total Protein (6.3-8.3) g/dL Albumin (3.5-5.0) g/dL Globulin (2.2-3.9) gm/dL Albumin/Globulin Ratio (1.0-2.1) Arterial Blood Potassium (3.6-5.2) mmol/L Laboratory Results - last 24 hr 01/12/19 01/12/19 01/12/19 08:13 08:13 08:13 WBC 10.1 RBC 3.22 L Hgb 9.0 L D Hct 27.7 L MCV 86.0 MCH 27.9 MCHC 32.5 L RDW 20.7 H Plt Count 228 MPV 8.1 Neut % (Auto) 83.9 H Lymph % (Auto) 10.9 L [place] % (Auto) 5.0 Eos % (Auto) 0.1 Baso % (Auto) 0.1 Neut # (Auto) 8.5 H Lymph # (Auto) 1.1 [place] # (Auto) 0.5 Eos # (Auto) 0.0 Baso # (Auto) 0.0 Puncture Site pCO2 pO2 HCO3 ABG pH ABG Total CO2 ABG O2 Saturation ABG Base Excess Peter Test ABG Potassium A-a O2 Difference Respiratory Index Glucose Lactate FiO2 Sodium 135 Potassium 4.2 Chloride 102 Carbon Dioxide 30 Anion Gap 7 L BUN 27 H Creatinine 0.6 L Est GFR ( Amer) > 60 Est GFR (Non-Af Amer) > 60 POC Glucose (mg/dL) Random Glucose 79 Calcium 6.8 L Total Bilirubin 0.6 AST 163 H D ALT 63 Alkaline Phosphatase 67 Total Creatine Kinase CK-MB (Mass) Troponin I 0.0600 Total Protein 5.0 L Albumin 2.9 L D Globulin 2.1 L Albumin/Globulin Ratio 1.3 Arterial Blood Potassium 01/12/19 01/12/19 01/13/19 11:29 19:59 03:17 WBC RBC Hgb Hct MCV MCH MCHC RDW Plt Count MPV Neut % (Auto) Lymph % (Auto) [place] % (Auto) Eos % (Auto) Baso % (Auto) Neut # (Auto) Lymph # (Auto) [place] # (Auto) Eos # (Auto) Baso # (Auto) Puncture Site pCO2 pO2 HCO3 ABG pH ABG Total CO2 ABG O2 Saturation ABG Base Excess Peter Test ABG Potassium A-a O2 Difference Respiratory Index Glucose Lactate FiO2 Sodium Potassium Chloride Carbon Dioxide Anion Gap BUN Creatinine Est GFR ( Amer) Est GFR (Non-Af Amer) POC Glucose (mg/dL) 115 H Random Glucose Calcium Total Bilirubin AST ALT Alkaline Phosphatase Total Creatine Kinase 3880 H CK-MB (Mass) 38.0 H Troponin I 0.0440 0.0250 Total Protein Albumin Globulin Albumin/Globulin Ratio Arterial Blood Potassium 01/13/19 03:46 WBC RBC Hgb Hct MCV MCH MCHC RDW Plt Count MPV Neut % (Auto) Lymph % (Auto) [place] % (Auto) Eos % (Auto) Baso % (Auto) Neut # (Auto) Lymph # (Auto) [place] # (Auto) Eos # (Auto) Baso # (Auto) Puncture Site Rr pCO2 67 H pO2 117 H HCO3 27.8 ABG pH 7.29 L ABG Total CO2 34.3 H ABG O2 Saturation 100.2 H ABG Base Excess 3.6 H Peter Test Yes ABG Potassium 3.8 A-a O2 Difference -1.0 Respiratory Index 0 Glucose 85 Lactate 0.4 L FiO2 28.0 Sodium 141.0 Potassium Chloride 111.0 H Carbon Dioxide Anion Gap BUN Creatinine Est GFR ( Amer) Est GFR (Non-Af Amer) POC Glucose (mg/dL) Random Glucose Calcium Total Bilirubin AST ALT Alkaline Phosphatase Total Creatine Kinase CK-MB (Mass) Troponin I Total Protein Albumin Globulin Albumin/Globulin Ratio Arterial Blood Potassium 3.8 Review of Systems - Review of Systems Systems not reviewed;Unavailable: Acuity of Condition - Constitutional Constitutional: absent: Fever, Chills, Sweats, Weakness - Respiratory Respiratory: Dyspnea, Dyspnea on Exertion - Genitourinary Genitourinary: UNREMARKABLE Critical Care Progress Note - Vent Settings MODE:: CPAP RESP RATE:: 8 FIO2:: 40 PEEP:: 6 PRESSURE SUPPORT:: 12 - Extremities/Vascular Does the Patient have a Central Venous Catheter?: No Does the Patient need a Central Venous Catheter?: No Does the Patient have a Zhou Catheter?: No Does the Patient need a Zhou Catheter?: No - Prophylaxis GI Prophylaxis GI: PPI - Prophylaxis DVT Prophylaxis DVT: Lovenox - Nutrition Nutrition: Nutrition Category Date Time Status NPO Diet [DIET] Diets 01/13/19 Breakfast Active Assessment/Plan - Assessment and Plan (Free Text) Assessment: 58M w/ Hx of ETOH abuse, COPD, brought to ICU for acute exacerbation of COPD Plan: Neuro - lethargic - currently on ativan 1mg Q4H - Will taper tomorrow - F/u psych consults Cardio - afib on this visit - Cardizem 30 PO QID; levonox 40 SC - vitals table - Due to patient polysubstance abuse, and withdrawl symptoms patient is a high fall risk - anticoagulation not recommended currently as patient a fall risk - F/u TSH/Free T4 - F/u Echo Pulm - Hx of COPD - Pulmicort 0.5 mg Q12, duonebs Q4H, methylprednisone 40 IVP Q6H (started ) - ABG overnight: 7.29/67/117/27/8; repeat 01/13 7.36/54/150/27.9 - Bipap settings 12/6 FiO2 40 RR 8 - Will reduce Fi02 to 30 - steroid taper see orders GI - NPO currently, on BIPAP - condom catheter Renal - BUN/ Cr 17/0.6 Heme - H/H - 9.2/29.4 - N: 92 - stable - continue to monitor ID - Temp 88.7 F, WBC 16s, HR 130s (on admission) - WBC today at 14.8 - afebrile > 48H - B/C / U/C negative 48 H - Zosyn 3.375 mg Q6H PPX - GI: protonix 40 mg daily - DVT: SCDS, lovenox 40 SC daily <Rigoberto Holman - Last Filed: 01/13/19 17:41> CCU Subjective - Physician Review Critical Care Time Spent (in minutes): 45 CCU Objective - Vital Signs / Intake & Output Vital Signs (Last 4 hours): Vital Signs Pulse Resp BP Pulse Ox 01/13/19 17:00 59 L 22 97 01/13/19 16:50 67 22 97 01/13/19 16:40 60 22 97 01/13/19 16:30 62 22 100 01/13/19 16:20 61 21 100 01/13/19 16:18 62 25 H 119/68 100 01/13/19 16:10 63 100 01/13/19 16:00 83 100 01/13/19 15:50 62 21 99 01/13/19 15:40 76 24 99 01/13/19 15:30 93 H 21 01/13/19 15:20 79 22 01/13/19 15:18 74 19 138/87 99 01/13/19 15:10 66 22 98 01/13/19 15:00 66 20 98 01/13/19 14:50 62 24 97 01/13/19 14:40 74 20 98 01/13/19 14:30 63 22 96 01/13/19 14:20 72 19 98 01/13/19 14:18 68 22 130/80 97 01/13/19 14:15 61 01/13/19 14:10 76 18 97 01/13/19 14:00 67 22 98 01/13/19 13:50 79 20 99 Intake and Output (Last 8hrs): Intake & Output 01/13/19 01/13/19 01/13/19 06:59 14:59 22:59 Intake Total 50 200 Output Total 0 Balance 50 200 Weight 159 lb 13.362 oz Intake: Intake, IV Amount 0 200 Left Antecubital 0 Right Antecubital 0 200 Oral 50 Output: Urine 0 Condom 0 Stool 0 Emesis 0 - Medications Active Medications: Active Medications Generic Name Dose Route Start Last Admin Trade Name Freq PRN Reason Stop Dose Admin Albuterol/Ipratropium 3 ml 01/13/19 04:00 01/13/19 16:01 Duoneb 3 Mg/0.5 Mg (3 Ml) Ud INH 3 ml RQ4 FERNANDA Administration Budesonide 0.5 mg 01/13/19 08:00 01/13/19 07:45 Pulmicort Respules INH 0.5 mg RQ12 FERNANDA Administration Diltiazem HCl 30 mg 01/13/19 10:00 01/13/19 14:40 Cardizem PO 30 mg QID FERNANDA Administration Enoxaparin Sodium 40 mg 01/12/19 10:00 01/13/19 09:43 Lovenox SC 40 mg DAILY FERNANDA Administration Folic Acid 1 mg 01/12/19 10:00 01/13/19 09:43 Folic Acid PO 1 mg DAILY FERNANDA Administration Piperacillin Sod/Tazobactam Sod 3.375 gm in 50 mls @ 100 mls/hr 01/11/19 17:30 01/13/19 17:36 Zosyn 3.375 Gm Iv Premix IVPB 100 mls/hr Q6H FERNANDA Administration Protocol Folic Acid 1 mg/ Thiamine HCl 1,011.2 mls @ 100 mls/hr 01/13/19 15:30 01/13/19 15:51 100 mg/ Multivitamins/Vitamin IV 100 mls/hr C 10 ml/ Dextrose DAILY FERNANDA Administration Methylprednisolone 40 mg 01/13/19 12:00 01/13/19 17:35 Solu-Medrol IVP 01/16/19 12:01 40 mg Q6H FERNANDA Administration Multivitamins 1 tab 01/13/19 10:00 01/13/19 09:44 Hexavitamin PO 1 tab DAILY FERNANDA Administration Pantoprazole Sodium 40 mg 01/12/19 10:00 01/13/19 09:44 Protonix Inj IVP 40 mg DAILY FERNANDA Administration Prednisone 40 mg 01/20/19 10:00 Prednisone Tab PO 01/22/19 10:01 DAILY FERNANDA Prednisone 60 mg 01/16/19 10:00 Prednisone Tab PO 01/19/19 10:01 DAILY [facility] Prednisone 20 mg 01/23/19 10:00 Prednisone Tab PO DAILY [facility] Prednisone 10 mg 01/24/19 10:00 Prednisone Tab PO DAILY [facility] Thiamine HCl 100 mg 01/12/19 10:00 01/13/19 09:43 Vitamin B1 Tab PO 100 mg DAILY FERNANDA Administration - Patient Studies Lab Studies: Microbiology Studies 01/11/19 18:13 Urine Culture - Final Urine,Catheterized No Growth (<1,000 CFU/ML) 01/11/19 17:00 Blood Culture - Preliminary Blood NO GROWTH AFTER 24 HOURS 01/11/19 14:30 Blood Culture - Preliminary Blood NO GROWTH AFTER 24 HOURS Lab Studies 01/13/19 01/13/19 01/13/19 Range/Units 13:49 07:43 07:43 WBC 14.8 H (4.8-10.8) K/uL RBC 3.31 L (4.40-5.90) Mil/uL Hgb 9.2 L (12.0-18.0) g/dL Hct 29.4 L (35.0-51.0) % MCV 88.8 D (80.0-94.0) fL MCH 27.7 (27.0-31.0) pg MCHC 31.2 L (33.0-37.0) g/dL RDW 20.7 H (11.5-14.5) % Plt Count 167 (130-400) K/uL MPV 8.6 (7.2-11.7) fL Neut % (Auto) 96.4 H (50.0-75.0) % Lymph % (Auto) 1.9 L (20.0-40.0) % [place] % (Auto) 1.1 (0.0-10.0) % Eos % (Auto) 0.1 (0.0-4.0) % Baso % (Auto) 0.5 (0.0-2.0) % Neut # (Auto) 14.3 H (1.8-7.0) K/uL Lymph # (Auto) 0.3 L (1.0-4.3) K/uL [place] # (Auto) 0.2 (0.0-0.8) K/uL Eos # (Auto) 0.0 (0.0-0.7) K/uL Baso # (Auto) 0.1 (0.0-0.2) K/uL Neutrophils % (Manual) 92 H (50-75) % Band Neutrophils % 4 H (0-2) % Lymphocytes % (Manual) 2 L (20-40) % Monocytes % (Manual) 2 (0-10) % Platelet Estimate Normal (NORMAL) Polychromasia Slight Hypochromasia (manual) Slight Anisocytosis (manual) Slight Ovalocytes Slight Puncture Site Lb pCO2 54 H (35-45) mm/Hg pO2 150 H (80-100) mm/Hg HCO3 27.9 (21-28) mmol/L ABG pH 7.36 (7.35-7.45) ABG Total CO2 32.2 H (22-28) mmol/L ABG O2 Saturation 99.6 H (95-98) % ABG Base Excess 3.7 H (-2.0-3.0) mmol/L Peter Test Na ABG Potassium 4.1 (3.6-5.2) mmol/L A-a O2 Difference 68.0 mm/Hg Respiratory Index 0.5 Sodium 136.0 135 (132-148) mmol/l Chloride 104.0 100 (98-107) mmol/L Glucose 91 (75-110) mg/dl Lactate 0.5 L (0.7-2.1) mmol/L Mechanical Rate 8 FiO2 40.0 % Inspiratory BiPAP 12 Expiratory BiPAP 6 Potassium 4.4 (3.6-5.2) mmol/L Carbon Dioxide 34 H (22-30) mmol/L Anion Gap 6 L (10-20) BUN 17 (9-20) mg/dL Creatinine 0.6 L (0.8-1.5) mg/dL Est GFR ( Amer) > 60 Est GFR (Non-Af Amer) > 60 POC Glucose (mg/dL) (65-110) mg/dL Random Glucose 87 (75-110) mg/dL Calcium 7.7 L (8.6-10.4) mg/dl Total Bilirubin 0.5 (0.2-1.3) mg/dL AST 134 H (17-59) U/L ALT 79 H D (21-72) U/L Alkaline Phosphatase 70 (38-126) U/L Troponin I (0.00-0.120) ng/mL Total Protein 5.4 L (6.3-8.3) g/dL Albumin 3.0 L (3.5-5.0) g/dL Globulin 2.3 (2.2-3.9) gm/dL Albumin/Globulin Ratio 1.3 (1.0-2.1) Arterial Blood Potassium 4.1 (3.6-5.2) mmol/L 01/13/19 01/13/19 01/12/19 Range/Units 03:46 03:17 19:59 WBC (4.8-10.8) K/uL RBC (4.40-5.90) Mil/uL Hgb (12.0-18.0) g/dL Hct (35.0-51.0) % MCV (80.0-94.0) fL MCH (27.0-31.0) pg MCHC (33.0-37.0) g/dL RDW (11.5-14.5) % Plt Count (130-400) K/uL MPV (7.2-11.7) fL Neut % (Auto) (50.0-75.0) % Lymph % (Auto) (20.0-40.0) % [place] % (Auto) (0.0-10.0) % Eos % (Auto) (0.0-4.0) % Baso % (Auto) (0.0-2.0) % Neut # (Auto) (1.8-7.0) K/uL Lymph # (Auto) (1.0-4.3) K/uL [place] # (Auto) (0.0-0.8) K/uL Eos # (Auto) (0.0-0.7) K/uL Baso # (Auto) (0.0-0.2) K/uL Neutrophils % (Manual) (50-75) % Band Neutrophils % (0-2) % Lymphocytes % (Manual) (20-40) % Monocytes % (Manual) (0-10) % Platelet Estimate (NORMAL) Polychromasia Hypochromasia (manual) Anisocytosis (manual) Ovalocytes Puncture Site Rr pCO2 67 H (35-45) mm/Hg pO2 117 H (80-100) mm/Hg HCO3 27.8 (21-28) mmol/L ABG pH 7.29 L (7.35-7.45) ABG Total CO2 34.3 H (22-28) mmol/L ABG O2 Saturation 100.2 H (95-98) % ABG Base Excess 3.6 H (-2.0-3.0) mmol/L Peter Test Yes ABG Potassium 3.8 (3.6-5.2) mmol/L A-a O2 Difference -1.0 mm/Hg Respiratory Index 0 Sodium 141.0 (132-148) mmol/l Chloride 111.0 H (98-107) mmol/L Glucose 85 (75-110) mg/dl Lactate 0.4 L (0.7-2.1) mmol/L Mechanical Rate FiO2 28.0 % Inspiratory BiPAP Expiratory BiPAP Potassium (3.6-5.2) mmol/L Carbon Dioxide (22-30) mmol/L Anion Gap (10-20) BUN (9-20) mg/dL Creatinine (0.8-1.5) mg/dL Est GFR ( Amer) Est GFR (Non-Af Amer) POC Glucose (mg/dL) 115 H (65-110) mg/dL Random Glucose (75-110) mg/dL Calcium (8.6-10.4) mg/dl Total Bilirubin (0.2-1.3) mg/dL AST (17-59) U/L ALT (21-72) U/L Alkaline Phosphatase (38-126) U/L Troponin I 0.0250 (0.00-0.120) ng/mL Total Protein (6.3-8.3) g/dL Albumin (3.5-5.0) g/dL Globulin (2.2-3.9) gm/dL Albumin/Globulin Ratio (1.0-2.1) Arterial Blood Potassium 3.8 (3.6-5.2) mmol/L Laboratory Results - last 24 hr 01/12/19 01/13/19 01/13/19 19:59 03:17 03:46 WBC RBC Hgb Hct MCV MCH MCHC RDW Plt Count MPV Neut % (Auto) Lymph % (Auto) [place] % (Auto) Eos % (Auto) Baso % (Auto) Neut # (Auto) Lymph # (Auto) [place] # (Auto) Eos # (Auto) Baso # (Auto) Neutrophils % (Manual) Band Neutrophils % Lymphocytes % (Manual) Monocytes % (Manual) Platelet Estimate Polychromasia Hypochromasia (manual) Anisocytosis (manual) Ovalocytes Puncture Site Rr pCO2 67 H pO2 117 H HCO3 27.8 ABG pH 7.29 L ABG Total CO2 34.3 H ABG O2 Saturation 100.2 H ABG Base Excess 3.6 H Peter Test Yes ABG Potassium 3.8 A-a O2 Difference -1.0 Respiratory Index 0 Sodium 141.0 Chloride 111.0 H Glucose 85 Lactate 0.4 L Mechanical Rate FiO2 28.0 Inspiratory BiPAP Expiratory BiPAP Potassium Carbon Dioxide Anion Gap BUN Creatinine Est GFR ( Amer) Est GFR (Non-Af Amer) POC Glucose (mg/dL) 115 H Random Glucose Calcium Total Bilirubin AST ALT Alkaline Phosphatase Troponin I 0.0250 Total Protein Albumin Globulin Albumin/Globulin Ratio Arterial Blood Potassium 3.8 01/13/19 01/13/19 01/13/19 07:43 07:43 13:49 WBC 14.8 H RBC 3.31 L Hgb 9.2 L Hct 29.4 L MCV 88.8 D MCH 27.7 MCHC 31.2 L RDW 20.7 H Plt Count 167 MPV 8.6 Neut % (Auto) 96.4 H Lymph % (Auto) 1.9 L [place] % (Auto) 1.1 Eos % (Auto) 0.1 Baso % (Auto) 0.5 Neut # (Auto) 14.3 H Lymph # (Auto) 0.3 L [place] # (Auto) 0.2 Eos # (Auto) 0.0 Baso # (Auto) 0.1 Neutrophils % (Manual) 92 H Band Neutrophils % 4 H Lymphocytes % (Manual) 2 L Monocytes % (Manual) 2 Platelet Estimate Normal Polychromasia Slight Hypochromasia (manual) Slight Anisocytosis (manual) Slight Ovalocytes Slight Puncture Site Lb pCO2 54 H pO2 150 H HCO3 27.9 ABG pH 7.36 ABG Total CO2 32.2 H ABG O2 Saturation 99.6 H ABG Base Excess 3.7 H Peter Test Na ABG Potassium 4.1 A-a O2 Difference 68.0 Respiratory Index 0.5 Sodium 135 136.0 Chloride 100 104.0 Glucose 91 Lactate 0.5 L Mechanical Rate 8 FiO2 40.0 Inspiratory BiPAP 12 Expiratory BiPAP 6 Potassium 4.4 Carbon Dioxide 34 H Anion Gap 6 L BUN 17 Creatinine 0.6 L Est GFR ( Amer) > 60 Est GFR (Non-Af Amer) > 60 POC Glucose (mg/dL) Random Glucose 87 Calcium 7.7 L Total Bilirubin 0.5 AST 134 H ALT 79 H D Alkaline Phosphatase 70 Troponin I Total Protein 5.4 L Albumin 3.0 L Globulin 2.3 Albumin/Globulin Ratio 1.3 Arterial Blood Potassium 4.1 Radiology Impressions: Radiology Impressions Chest X-Ray 01/13/19 03:24 IMPRESSION: No focal consolidation. Critical Care Progress Note - Nutrition Nutrition: Nutrition Category Date Time Status NPO Diet [DIET] Diets 01/13/19 Breakfast Active Attending/Attestation - Attestation I have personally seen and examined this patient.: Yes I have fully participated in the care of the patient.: Yes I have reviewed all pertinent clinical information: Yes Notes (Text): 01/13/19 17:40 Patient seen and examined in the intensive care unit. Case discussed with housestaff in the morning rounds. 58-year-old male transferred to intensive care unit overnight for shortness of breath and placed on BiPAP History of alcohol abuse and monitoring for delirium tremens IV sedation Steroids and nebulizer treatment Follow-up [facility]
[2019-01-13] MEDS: Albuterol-Ipratrop 3 mg / 0.5 (3 ml) UD INH SCH ×4 (07:40→20:24)
[2019-01-13] MEDS: Budesonide 0.5 mg/2 ml Inhal Susp UD INH SCH (07:45)
[2019-01-13 07:51] LABS: BASO # 0.1 K/uL (0.0-0.2); BASO % 0.5 % (0.0-2.0); EOS % 0.1 % (0.0-4.0); HEMOGLOBIN 9.2 g/dL (12.0-18.0); LYMPH # 0.3 K/uL (1.0-4.3); LYMPH % 1.9 % (20.0-40.0); MEAN CORPUSCULAR HEMOGLOBIN 27.7 pg (27.0-31.0); MEAN CORPUSCULAR HGB CONC 31.2 g/dL (33.0-37.0); MEAN PLATELET VOLUME 8.6 fL (7.2-11.7); MONO # 0.2 K/uL (0.0-0.8); MONO % 1.1 % (0.0-10.0); NEUT # 14.3 K/uL (1.8-7.0); NEUT % 96.4 % (50.0-75.0); PLATELET COUNT 167 K/uL (130-400); RBC 3.31 Mil/uL (4.40-5.90); RED CELL DISTRIBUTION WIDTH 20.7 % (11.5-14.5); WHITE BLOOD COUNT 14.8 K/uL (4.8-10.8)
[2019-01-13 08:01] LABS: MEAN CELL VOLUME 88.8 fL (80.0-94.0)
[2019-01-13 08:12] LABS: ALB/GLOB RATIO 1.3 (1.0-2.1); ALT/SGPT 79 U/L (21-72); AST/SGOT 134 U/L (17-59); BLOOD UREA NITROGEN 17 mg/dL (9-20); CALCIUM 7.7 mg/dl (8.6-10.4); GFR NON-AFRICAN AMERICAN > 60
[2019-01-13 08:35] LABS: ANISOCYTOSIS SLIGHT; BANDS 4 % (0-2); HYPOCHROMIC SLIGHT; LYMPHOCYTE 2 % (20-40); MONOCYTE 2 % (0-10); NEUTROPHIL 92 % (50-75); PLATELET ESTIMATE NORMAL (NORMAL); TOTAL CELLS COUNTED 100
[2019-01-13 08:36] LABS: OVALOCYTES SLIGHT
[2019-01-13 08:37] LABS: POLYCHROMIC SLIGHT
[2019-01-13] MEDS: Enoxaparin 40 mg Syringe SC SCH (09:43)
[2019-01-13] MEDS: Multiple Vitamins Tab PO SCH (09:44)
--- NOTE | 2019-01-13 10:40 | RAD ---
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 FINDINGS: Numerous wires and leads project over the chest obscuring evaluation of the underlying parenchyma. LUNGS: No focal consolidation. Please note that chest x-ray has limited sensitivity for the detection of pulmonary masses. PLEURA: No significant pleural effusion identified. No definite pneumothorax . CARDIOVASCULAR: Heart size appears within normal limits. Atherosclerotic calcifications present. OSSEOUS STRUCTURES: Osseous demineralization. Degenerative changes. VISUALIZED UPPER ABDOMEN: Right upper quadrant metallic coils/clips. OTHER FINDINGS: None. IMPRESSION: No focal consolidation.
--- NOTE | 2019-01-13 12:00 | PCM.PSYCH ---
Initial Psychiatric Evaluation - Initial Psychiatric Evaluation Type of Admission: Voluntary Legal Status: Capacity Chief Complaint (in patient's own words): "Tired" History of Present Illness and Precipitating Events: Patient is a 58 -year-old, male who is , unemployed, and homeless. He has no children and receives his income from [employer] due to his COPD. Consultation was asked for his depression and alcoholism, agian. He is well- known from numerous ER visits and psych and detox admissions. He was just discharged 2 days ago from again. He is now in ICU due to severe resp dep. He was brought in by ambulance after being found intoxicated and hard of breathing. He was just discharged from the hospital and that he had another OD on the day of discharge back to [facility]. The pt is known to admit to hating [facility] and refusing rehabs, but yet asking for a housing for him. He did get an house one time but lost it due to alcohol. Patient reports drinking 1 pint of alcohol a day, but he was out only 2-3 days. He stated that his first drink was at age 10. He has an extensive drinking history for a very long time with a history of DTs, seizures, and blackouts. He admits to sometimes using 2 bags of heroin, intranasally. UDS is now clean. He states that he has a history of 2 heroin overdoses in the past and has never tried methadone or suboxone. Patient states that he smokes one joint of marijuana a month and about 0.5 to 1 pack per day of cigarettes. Patient has a history of severe depression but denies severely depressed mood. He stated that he had had several suicidal ideations with plans to run in front of a truck in the past, prior admissions. He now denies any suicidal or homicidal ideation, however, he is too lethargic to elaborate. Past Psychiatric History: Major Depressive Disorder, recurrent, severe. Many psych and detox admissions. Family Psych History: unknown PMHx: HTN, COPD, BPH, GERD Meds: Zoloft, lexapro, gabapentin Current Medications: Active Medications Generic Name Dose Route Start Last Admin Trade Name Freq PRN Reason Stop Dose Admin Albuterol/Ipratropium 3 ml 01/13/19 04:00 01/13/19 11:21 Duoneb 3 Mg/0.5 Mg (3 Ml) Ud INH 3 ml RQ4 FERNANDA Administration Budesonide 0.5 mg 01/13/19 08:00 01/13/19 07:45 Pulmicort Respules INH 0.5 mg RQ12 FERNANDA Administration Diltiazem HCl 30 mg 01/13/19 10:00 01/13/19 09:46 Cardizem PO 30 mg QID FERNANDA Administration Enoxaparin Sodium 40 mg 01/12/19 10:00 01/13/19 09:43 Lovenox SC 40 mg DAILY FERNANDA Administration Folic Acid 1 mg 01/12/19 10:00 01/13/19 09:43 Folic Acid PO 1 mg DAILY FERNANDA Administration Piperacillin Sod/Tazobactam Sod 3.375 gm in 50 mls @ 100 mls/hr 01/11/19 17:30 01/13/19 04:30 Zosyn 3.375 Gm Iv Premix IVPB 100 mls/hr Q6H FERNANDA Administration Protocol Methylprednisolone 40 mg 01/13/19 12:00 Solu-Medrol IVP Q6H [facility] Multivitamins 1 tab 01/13/19 10:00 01/13/19 09:44 Hexavitamin PO 1 tab DAILY FERNANDA Administration Pantoprazole Sodium 40 mg 01/12/19 10:00 01/13/19 09:44 Protonix Inj IVP 40 mg DAILY FERNANDA Administration Thiamine HCl 100 mg 01/12/19 10:00 01/13/19 09:43 Vitamin B1 Tab PO 100 mg DAILY FERNANDA Administration Past Psychiatric History - Past Psychiatric History Previous Treatment History: Inpatient Pertinent Medical Hx (Current Medical&Sleep Prob, Allergies): Allergies Allergy/AdvReac Type Severity Reaction Status Date / Time No Known Allergies Allergy Verified 01/11/19 13:59 Gabapentin [Neurontin] 100 mg PO TID #90 cap 11/28/18 Multivitamins [Hexavitamin] 1 tab PO DAILY #30 tab 11/28/18 Thiamine [Vitamin B1 Tab] 100 mg PO DAILY #30 tab 11/28/18 Albuterol/Ipratropium [Duoneb 3 mg/0.5 mg (3 ml) UD] 3 ml INH RQ6 PRN #1 neb 12/18/18 Escitalopram [Lexapro] 20 mg PO DAILY #30 tab 12/18/18 Fluticasone/Vilanterol 100/25 [Breo Ellipta 100-25 MCG INH] 1 puff INH RQD #1 puff 12/18/18 Lisinopril [Zestril] 10 mg PO DAILY #30 tab 12/18/18 Mirtazapine [Remeron] 30 mg PO HS #30 tab 12/18/18 Pantoprazole [Protonix EC Tab] 40 mg PO DAILY #30 ect 12/18/18 Tamsulosin [Flomax] 0.4 mg PO DAILY #30 cap 12/18/18 traZODone [Desyrel] 50 mg PO HS PRN #30 tab 12/18/18 Cephalexin [Keflex] 500 mg PO BID #14 capsule 01/07/19 Albuterol HFA [Ventolin HFA 90 mcg/actuation (8 g)] 2 puff IH [id number] #1 puff 01/08/19 Review of Systems - Psychiatric Psychiatric: Abnormal Sleep Pattern, Anhedonia, Anxiety, Depression. absent: Homicidal Ideation, Suicidal Ideation Mental Status Examination - Personal Presentation Personal Presentation: Looks older than stated age - Affect Affect: Blunted - Motor Activity Motor Activity: Calm - Reliability in Providing Information Reliability in Providing Information: Poor, due to cognitve impairment (inattentive and lethargic) - Speech Speech: Other (slowed) - Mood Mood: Depressed, Anxious - Formal Thought Process Formal Thought Process: No Impairment - Cognitive Functions Orientation: Person, Place, Situation Sensorium: Lethargic Attention/Concentration: Easily distracted Abstract Thinking: [place] Estimate of Intelligence: Average Judgement: Intact, as evidence by: Insight regarding need for hospitalization Memory: Remote impaired as evidenced by: Other (unable to assess) - Risk Risk: Diminished functioning - Strength & Assets Inventory Strength & Assets Inventory: Life experience - Limitations Limitations: Other DSM 5 DX - DSM 5 DSM 5 Diagnosis: Major Depressive Disorder, recurrent, severe Alcohol use disorder, severe Opioid use disorder, moderate LEDA Personality disorder - Recommended/Plan of Treatment Treatment Recommendations and Plan of Treatment: No need for detox as he was out only 2-3 days Gabapentin for augmentation if he is anxious - when he is more alert and stable As needed medications Supportive therapy and psychoeducation [place] for abstinence Refer to rehab such as [facility], [facility] or [facility], and self-help groups Teach healthy lifestyle methods, i.e. diet, exercise, meditation Smoking cessation Nicotine patch 31 min
[2019-01-13] MEDS: MethylPREDNISolone 40 mg Vial IVP SCH ×3 (12:04→23:49)
[2019-01-13 13:53] LABS: ARTERIAL BLOOD GAS HCO3 27.9 mmol/L (21-28); ARTERIAL BLOOD GAS O2 SAT 99.6 % (95-98); ARTERIAL BLOOD GAS PCO2 54 mm/Hg (35-45); ARTERIAL BLOOD GAS PH 7.36 (7.35-7.45); ARTERIAL BLOOD GAS PO2 150 mm/Hg (80-100); ARTERIAL BLOOD GAS TCO2 32.2 mmol/L (22-28)
[2019-01-13] MEDS: Folic Acid 1 MG, Thiamine 100 MG, Multivitamin (MVI) 10 ML in Dextrose 5% In Water 1,00... IV SCH (15:51)
--- NOTE | 2019-01-13 23:57 | CARD ---
APPROVED REPORT Date of service: 01/11/2019 EKG Measurement Heart [id number] <Conclusion> Atrial fibrillation with rapid ventricular response with premature ventricular or aberrantly conducted complexes Nonspecific ST abnormality Abnormal QRS-T angle, consider primary T wave abnormality Abnormal ECG
--- NOTE | 2019-01-13 23:58 | CARD ---
APPROVED REPORT Date of service: 01/11/2019 EKG Measurement Heart [id number] <Conclusion> Sinus tachycardia Nonspecific ST abnormality Abnormal ECG
[2019-01-14] MEDS: Albuterol-Ipratrop 3 mg / 0.5 (3 ml) UD INH SCH ×6 (00:49→19:28)
[2019-01-14] MEDS: Piperacill/Tazo 3.375gm in Dex 3.375 GM/50 ML BAG IVPB SCH ×4 (05:50→22:58)
[2019-01-14] MEDS: MethylPREDNISolone 40 mg Vial IVP SCH ×3 (05:52→17:41)
[2019-01-14 06:19] LABS: BASO % 0.1 % (0.0-2.0); HEMOGLOBIN 8.4 g/dL (12.0-18.0); LYMPH # 0.3 K/uL (1.0-4.3); LYMPH % 2.1 % (20.0-40.0); MEAN CELL VOLUME 86.7 fL (80.0-94.0); MEAN CORPUSCULAR HEMOGLOBIN 27.9 pg (27.0-31.0); MEAN CORPUSCULAR HGB CONC 32.2 g/dL (33.0-37.0); MEAN PLATELET VOLUME 8.3 fL (7.2-11.7); MONO # 0.1 K/uL (0.0-0.8); MONO % 1.1 % (0.0-10.0); NEUT # 12.6 K/uL (1.8-7.0); NEUT % 96.7 % (50.0-75.0); PLATELET COUNT 147 K/uL (130-400); RBC 3.02 Mil/uL (4.40-5.90); RED CELL DISTRIBUTION WIDTH 20.6 % (11.5-14.5)
[2019-01-14 06:33] LABS: ALB/GLOB RATIO 1.3 (1.0-2.1); ALBUMIN 3.1 g/dL (3.5-5.0); ALT/SGPT 74 U/L (21-72); AST/SGOT 98 U/L (17-59); BLOOD UREA NITROGEN 18 mg/dL (9-20); CALCIUM 8.2 mg/dl (8.6-10.4); GFR NON-AFRICAN AMERICAN > 60
[2019-01-14] MEDS: Budesonide 0.5 mg/2 ml Inhal Susp UD INH SCH ×2 (07:30→19:29)
[2019-01-14 08:35] LABS: ANISOCYTOSIS SLIGHT; BANDS 3 % (0-2); LYMPHOCYTE 2 % (20-40); NEUTROPHIL 95 % (50-75); PLATELET ESTIMATE NORMAL (NORMAL); TOTAL CELLS COUNTED 100
[2019-01-14 08:36] LABS: HYPOCHROMIC SLIGHT; OVALOCYTES SLIGHT; POLYCHROMIC SLIGHT
--- NOTE | 2019-01-14 09:52 | CP.CCUPN ---
<Deandre Butler M - Last Filed: 01/14/19 13:59> CCU Subjective - Physician Review Subjective (Free Text): Critical Care Consult Note for Dr. Holman. Patient seen and examined at bedside. No overnight events. Patient states he feels fine, just occasional shortness of breath. Patient as no other complaints. Patient denies chest pain, SOB, nausea, vomiting, abdominal pain. 01/14/19 13:20 CCU Objective - Vital Signs / Intake & Output Vital Signs (Last 4 hours): Vital Signs Temp Pulse Resp BP Pulse Ox 01/14/19 09:00 93 H 20 01/14/19 08:18 80 26 H 145/82 99 01/14/19 08:10 77 26 H 100 01/14/19 08:03 76 17 160/81 H 100 01/14/19 08:00 97.9 F 81 15 98 01/14/19 07:50 83 16 01/14/19 07:40 81 13 01/14/19 07:30 91 H 14 01/14/19 07:20 95 H 26 H 01/14/19 07:10 78 14 100 01/14/19 07:00 80 14 100 01/14/19 06:50 84 23 01/14/19 06:40 84 16 71 L 01/14/19 06:30 68 21 01/14/19 06:20 76 32 H 01/14/19 06:18 71 16 157/81 H 01/14/19 06:10 80 14 01/14/19 06:00 74 19 100 Intake and Output (Last 8hrs): Intake & Output 01/13/19 01/14/19 01/14/19 22:59 06:59 14:59 Intake Total 990 940 250 Output Total 150 850 300 Balance 840 90 -50 Weight 158 lb 4.67 oz Intake: Intake, IV Amount 750 700 0 Left Antecubital 50 0 Right Antecubital 700 100 Right Wrist 600 0 Oral 240 240 250 Output: Urine 150 850 300 Urine, Voided 150 850 300 Emesis 0 0 0 Other: # Voids Urine, Voided 1 1 0 # Bowel Movements 0 0 0 - Physical Exam Conjunctiva: Positive for: Normal Mouth: Positive for: Moist Mucous Membranes Neck: Positive for: Normal Range of Motion Respiratory/Chest: Positive for: Decreased Breath Sounds, Rhonchi Cardiovascular: Positive for: Normal S1, S2. Negative for: Murmurs Abdomen: Positive for: Normal Bowel Sounds. Negative for: Tenderness, Distention Upper Extremity: Positive for: Normal Inspection. Negative for: Cyanosis, Edema Lower Extremity: Positive for: Normal Inspection. Negative for: Edema Skin: Positive for: Warm, Dry, Rashes, Normal Color Psychiatric: Positive for: Lethargic - Medications Active Medications: Active Medications Generic Name Dose Route Start Last Admin Trade Name Freq PRN Reason Stop Dose Admin Albuterol/Ipratropium 3 ml 01/13/19 04:00 01/14/19 07:30 Duoneb 3 Mg/0.5 Mg (3 Ml) Ud INH 3 ml RQ4 [facility] Administration Budesonide 0.5 mg 01/13/19 08:00 01/14/19 07:30 Pulmicort Respules INH 0.5 mg RQ12 [facility] Administration Diltiazem HCl 30 mg 01/13/19 10:00 01/13/19 22:00 Cardizem PO Not Given QID [facility] Enoxaparin Sodium 40 mg 01/12/19 10:00 01/13/19 09:43 Lovenox SC 40 mg DAILY [facility] Administration Folic Acid 1 mg 01/12/19 10:00 01/13/19 09:43 Folic Acid PO 1 mg DAILY [facility] Administration Piperacillin Sod/Tazobactam Sod 3.375 gm in 50 mls @ 100 mls/hr 01/11/19 17:30 01/14/19 05:50 Zosyn 3.375 Gm Iv Premix IVPB 100 mls/hr Q6H [facility] Administration Protocol Folic Acid 1 mg/ Thiamine HCl 1,011.2 mls @ 100 mls/hr 01/13/19 15:30 01/13/19 15:51 100 mg/ Multivitamins/Vitamin IV 100 mls/hr C 10 ml/ Dextrose DAILY [facility] Administration Methylprednisolone 40 mg 01/13/19 12:00 01/14/19 05:52 Solu-Medrol IVP 01/16/19 12:01 40 mg Q6H [facility] Administration Multivitamins 1 tab 01/13/19 10:00 01/13/19 09:44 Hexavitamin PO 1 tab DAILY [facility] Administration Pantoprazole Sodium 40 mg 01/12/19 10:00 01/13/19 09:44 Protonix Inj IVP 40 mg DAILY [facility] Administration Prednisone 40 mg 01/20/19 10:00 Prednisone Tab PO 01/22/19 10:01 DAILY [facility] Prednisone 60 mg 01/16/19 10:00 Prednisone Tab PO 01/19/19 10:01 DAILY [facility] Prednisone 20 mg 01/23/19 10:00 Prednisone Tab PO DAILY [facility] Prednisone 10 mg 01/24/19 10:00 Prednisone Tab PO DAILY [facility] Thiamine HCl 100 mg 01/12/19 10:00 01/13/19 09:43 Vitamin B1 Tab PO 100 mg DAILY [facility] Administration - Patient Studies Lab Studies: Microbiology Studies 01/11/19 17:00 Blood Culture - Preliminary Blood NO GROWTH AFTER 48 HOURS 01/11/19 14:30 Blood Culture - Preliminary Blood NO GROWTH AFTER 48 HOURS 01/11/19 18:13 Urine Culture - Final Urine,Catheterized No Growth (<1,000 CFU/ML) Lab Studies 01/14/19 01/14/19 01/14/19 Range/Units 07:20 06:07 06:04 WBC 13.0 H (4.8-10.8) K/uL RBC 3.02 L (4.40-5.90) Mil/uL Hgb 8.4 L (12.0-18.0) g/dL Hct 26.1 L (35.0-51.0) % MCV 86.7 D (80.0-94.0) fL MCH 27.9 (27.0-31.0) pg MCHC 32.2 L (33.0-37.0) g/dL RDW 20.6 H (11.5-14.5) % Plt Count 147 (130-400) K/uL MPV 8.3 (7.2-11.7) fL Neut % (Auto) 96.7 H (50.0-75.0) % Lymph % (Auto) 2.1 L (20.0-40.0) % [place] % (Auto) 1.1 (0.0-10.0) % Eos % (Auto) 0.0 (0.0-4.0) % Baso % (Auto) 0.1 (0.0-2.0) % Neut # (Auto) 12.6 H (1.8-7.0) K/uL Lymph # (Auto) 0.3 L (1.0-4.3) K/uL [place] # (Auto) 0.1 (0.0-0.8) K/uL Eos # (Auto) 0.0 (0.0-0.7) K/uL Baso # (Auto) 0.0 (0.0-0.2) K/uL Neutrophils % (Manual) 95 H (50-75) % Band Neutrophils % 3 H (0-2) % Lymphocytes % (Manual) 2 L (20-40) % Monocytes % (Manual) TEST NOT PERFORMED Platelet Estimate Normal (NORMAL) Polychromasia Slight Hypochromasia (manual) Slight Anisocytosis (manual) Slight Ovalocytes Slight Puncture Site pCO2 (35-45) mm/Hg pO2 (80-100) mm/Hg HCO3 (21-28) mmol/L ABG pH (7.35-7.45) ABG Total CO2 (22-28) mmol/L ABG O2 Saturation (95-98) % ABG Base Excess (-2.0-3.0) mmol/L Peter Test ABG Potassium (3.6-5.2) mmol/L A-a O2 Difference mm/Hg Respiratory Index Sodium (132-148) mmol/l Chloride (98-107) mmol/L Glucose (75-110) mg/dl Lactate (0.7-2.1) mmol/L Mechanical Rate FiO2 % Inspiratory BiPAP Expiratory BiPAP Potassium (3.6-5.2) mmol/L Carbon Dioxide (22-30) mmol/L Anion Gap (10-20) BUN (9-20) mg/dL Creatinine (0.8-1.5) mg/dL Est GFR ( Amer) Est GFR (Non-Af Amer) POC Glucose (mg/dL) 168 H (65-110) mg/dL Random Glucose (75-110) mg/dL Calcium (8.6-10.4) mg/dl Phosphorus (2.5-4.5) mg/dL Magnesium (1.6-2.3) mg/dL Total Bilirubin (0.2-1.3) mg/dL AST (17-59) U/L ALT (21-72) U/L Alkaline Phosphatase (38-126) U/L Total Protein (6.3-8.3) g/dL Albumin (3.5-5.0) g/dL Globulin (2.2-3.9) gm/dL Albumin/Globulin Ratio (1.0-2.1) Free T4 0.88 (0.78-2.19) ng/dL TSH 3rd Generation (0.46-4.68) mIU/L Arterial Blood Potassium (3.6-5.2) mmol/L 01/14/19 01/13/19 Range/Units 06:04 13:49 WBC (4.8-10.8) K/uL RBC (4.40-5.90) Mil/uL Hgb (12.0-18.0) g/dL Hct (35.0-51.0) % MCV (80.0-94.0) fL MCH (27.0-31.0) pg MCHC (33.0-37.0) g/dL RDW (11.5-14.5) % Plt Count (130-400) K/uL MPV (7.2-11.7) fL Neut % (Auto) (50.0-75.0) % Lymph % (Auto) (20.0-40.0) % [place] % (Auto) (0.0-10.0) % Eos % (Auto) (0.0-4.0) % Baso % (Auto) (0.0-2.0) % Neut # (Auto) (1.8-7.0) K/uL Lymph # (Auto) (1.0-4.3) K/uL [place] # (Auto) (0.0-0.8) K/uL Eos # (Auto) (0.0-0.7) K/uL Baso # (Auto) (0.0-0.2) K/uL Neutrophils % (Manual) (50-75) % Band Neutrophils % (0-2) % Lymphocytes % (Manual) (20-40) % Monocytes % (Manual) Platelet Estimate (NORMAL) Polychromasia Hypochromasia (manual) Anisocytosis (manual) Ovalocytes Puncture Site Lb pCO2 54 H (35-45) mm/Hg pO2 150 H (80-100) mm/Hg HCO3 27.9 (21-28) mmol/L ABG pH 7.36 (7.35-7.45) ABG Total CO2 32.2 H (22-28) mmol/L ABG O2 Saturation 99.6 H (95-98) % ABG Base Excess 3.7 H (-2.0-3.0) mmol/L Peter Test Na ABG Potassium 4.1 (3.6-5.2) mmol/L A-a O2 Difference 68.0 mm/Hg Respiratory Index 0.5 Sodium 131 L 136.0 (132-148) mmol/l Chloride 97 L 104.0 (98-107) mmol/L Glucose 91 (75-110) mg/dl Lactate 0.5 L (0.7-2.1) mmol/L Mechanical Rate 8 FiO2 40.0 % Inspiratory BiPAP 12 Expiratory BiPAP 6 Potassium 4.3 (3.6-5.2) mmol/L Carbon Dioxide 35 H (22-30) mmol/L Anion Gap 4 L (10-20) BUN 18 (9-20) mg/dL Creatinine 0.6 L (0.8-1.5) mg/dL Est GFR ( Amer) > 60 Est GFR (Non-Af Amer) > 60 POC Glucose (mg/dL) (65-110) mg/dL Random Glucose 151 H D (75-110) mg/dL Calcium 8.2 L (8.6-10.4) mg/dl Phosphorus 2.9 (2.5-4.5) mg/dL Magnesium 2.0 (1.6-2.3) mg/dL Total Bilirubin 0.4 (0.2-1.3) mg/dL AST 98 H D (17-59) U/L ALT 74 H (21-72) U/L Alkaline Phosphatase 69 (38-126) U/L Total Protein 5.4 L (6.3-8.3) g/dL Albumin 3.1 L (3.5-5.0) g/dL Globulin 2.3 (2.2-3.9) gm/dL Albumin/Globulin Ratio 1.3 (1.0-2.1) Free T4 (0.78-2.19) ng/dL TSH 3rd Generation 0.14 L (0.46-4.68) mIU/L Arterial Blood Potassium 4.1 (3.6-5.2) mmol/L Laboratory Results - last 24 hr 01/13/19 01/14/19 01/14/19 13:49 06:04 06:04 WBC RBC Hgb Hct MCV MCH MCHC RDW Plt Count MPV Neut % (Auto) Lymph % (Auto) [place] % (Auto) Eos % (Auto) Baso % (Auto) Neut # (Auto) Lymph # (Auto) [place] # (Auto) Eos # (Auto) Baso # (Auto) Neutrophils % (Manual) Band Neutrophils % Lymphocytes % (Manual) Monocytes % (Manual) Platelet Estimate Polychromasia Hypochromasia (manual) Anisocytosis (manual) Ovalocytes Puncture Site Lb pCO2 54 H pO2 150 H HCO3 27.9 ABG pH 7.36 ABG Total CO2 32.2 H ABG O2 Saturation 99.6 H ABG Base Excess 3.7 H Peter Test Na ABG Potassium 4.1 A-a O2 Difference 68.0 Respiratory Index 0.5 Sodium 136.0 131 L Chloride 104.0 97 L Glucose 91 Lactate 0.5 L Mechanical Rate 8 FiO2 40.0 Inspiratory BiPAP 12 Expiratory BiPAP 6 Potassium 4.3 Carbon Dioxide 35 H Anion Gap 4 L BUN 18 Creatinine 0.6 L Est GFR ( Amer) > 60 Est GFR (Non-Af Amer) > 60 POC Glucose (mg/dL) Random Glucose 151 H D Calcium 8.2 L Phosphorus 2.9 Magnesium 2.0 Total Bilirubin 0.4 AST 98 H D ALT 74 H Alkaline Phosphatase 69 Total Protein 5.4 L Albumin 3.1 L Globulin 2.3 Albumin/Globulin Ratio 1.3 Free T4 0.88 TSH 3rd Generation 0.14 L Arterial Blood Potassium 4.1 01/14/19 01/14/19 06:07 07:20 WBC 13.0 H RBC 3.02 L Hgb 8.4 L Hct 26.1 L MCV 86.7 D MCH 27.9 MCHC 32.2 L RDW 20.6 H Plt Count 147 MPV 8.3 Neut % (Auto) 96.7 H Lymph % (Auto) 2.1 L [place] % (Auto) 1.1 Eos % (Auto) 0.0 Baso % (Auto) 0.1 Neut # (Auto) 12.6 H Lymph # (Auto) 0.3 L [place] # (Auto) 0.1 Eos # (Auto) 0.0 Baso # (Auto) 0.0 Neutrophils % (Manual) 95 H Band Neutrophils % 3 H Lymphocytes % (Manual) 2 L Monocytes % (Manual) TEST NOT PERFORMED Platelet Estimate Normal Polychromasia Slight Hypochromasia (manual) Slight Anisocytosis (manual) Slight Ovalocytes Slight Puncture Site pCO2 pO2 HCO3 ABG pH ABG Total CO2 ABG O2 Saturation ABG Base Excess Peter Test ABG Potassium A-a O2 Difference Respiratory Index Sodium Chloride Glucose Lactate Mechanical Rate FiO2 Inspiratory BiPAP Expiratory BiPAP Potassium Carbon Dioxide Anion Gap BUN Creatinine Est GFR ( Amer) Est GFR (Non-Af Amer) POC Glucose (mg/dL) 168 H Random Glucose Calcium Phosphorus Magnesium Total Bilirubin AST ALT Alkaline Phosphatase Total Protein Albumin Globulin Albumin/Globulin Ratio Free T4 TSH 3rd Generation Arterial Blood Potassium Radiology Impressions: Radiology Impressions Chest X-Ray 01/13/19 03:24 IMPRESSION: No focal consolidation. Review of Systems - Constitutional Constitutional: absent: Fever, Chills, Sweats, Weakness - EENT Eyes: UNREMARKABLE. absent: Discharge, Itchy Eyes Nose/Mouth/Throat: UNREMARKABLE. absent: Mouth Pain - Cardiovascular Cardiovascular: UNREMARKABLE. absent: Chest Pain, Diaphoresis - Respiratory Respiratory: Dyspnea on Exertion, UNREMARKABLE - Genitourinary Genitourinary: UNREMARKABLE. absent: Difficulty Urinating, Freq UTI - Musculoskeletal Musculoskeletal: UNREMARKABLE. absent: Myalgias - Integumentary Integumentary: UNREMARKABLE. absent: Lesions - Neurological Neurological: absent: Dizziness - Psychiatric Psychiatric: UNREMARKABLE. absent: Anhedonia, Depression - Endocrine Endocrine: UNREMARKABLE Critical Care Progress Note - Prophylaxis GI Prophylaxis GI: PPI - Prophylaxis DVT Prophylaxis DVT: Lovenox - Nutrition Nutrition: Nutrition Category Date Time Status Heart Healthy Diet [DIET] Diets 01/13/19 Breakfast Active Assessment/Plan - Assessment and Plan (Free Text) Assessment: 58M w/ Hx of ETOH abuse, COPD, brought to ICU for acute exacerbation of COPD Plan: Neuro - lethargic - F/u psych consults Cardio - afib on this visit - Cardizem 30 PO QID; levonox 40 SC - vitals table - Due to patient polysubstance abuse, and withdrawl symptoms patient is a high fall risk - anticoagulation not recommended currently as patient a fall risk - Low TSH, Free T4 WNL, continue to monitor Pulm - Hx of COPD - Pulmicort 0.5 mg Q12, duonebs Q4H, methylprednisone 40 IVP Q6H (started ) - ABG overnight: 7.29/67/117/27/8; repeat 01/13 7.36/54/150/27.9 - Now on high flow oxygen, saturating in 90s - steroid taper see orders GI - heart healthy diet - condom catheter Renal - BUN/ Cr 17/0.6 Heme - H/H - 9.2/29.4 - N: 92 - stable - continue to monitor ID - Temp 88.7 F, WBC 16s, HR 130s (on admission) - WBC downtrending - afebrile > 48H - B/C / U/C negative 48 H - Zosyn 3.375 mg Q6H PPX - GI: protonix 40 mg daily - DVT: SCDS, lovenox 40 SC daily <Rigoberto Holman - Last Filed: 01/14/19 17:16> CCU Subjective - Physician Review Critical Care Time Spent (in minutes): 40 CCU Objective - Vital Signs / Intake & Output Vital Signs (Last 4 hours): Vital Signs Temp Pulse Resp BP Pulse Ox 01/14/19 16:00 97.7 F 66 31 H 97 01/14/19 15:18 64 31 H 142/76 100 01/14/19 15:00 66 29 H 95 01/14/19 14:18 71 28 H 170/80 H 100 01/14/19 14:00 76 20 01/14/19 13:38 89 01/14/19 13:18 83 24 152/79 H Intake and Output (Last 8hrs): Intake & Output 01/14/19 01/14/19 01/14/19 06:59 14:59 22:59 Intake Total 940 870 200 Output Total 850 650 200 Balance 90 220 0 Weight 158 lb 4.67 oz Intake: Intake, IV Amount 700 450 200 Left Antecubital 50 Right Antecubital 100 Right Upper arm 100 200 Right Wrist 600 300 Oral 240 420 0 Output: Urine 850 650 200 Urine, Voided 850 650 200 Emesis 0 0 Other: # Voids Urine, Voided 1 0 0 # Bowel Movements 0 0 0 - Medications Active Medications: Active Medications Generic Name Dose Route Start Last Admin Trade Name Freq PRN Reason Stop Dose Admin Albuterol/Ipratropium 3 ml 01/13/19 04:00 01/14/19 13:41 Duoneb 3 Mg/0.5 Mg (3 Ml) Ud INH 3 ml RQ4 [facility] Administration Budesonide 0.5 mg 01/13/19 08:00 01/14/19 07:30 Pulmicort Respules INH 0.5 mg RQ12 [facility] Administration Diltiazem HCl 30 mg 01/13/19 10:00 01/14/19 14:50 Cardizem PO 30 mg QID [facility] Administration Enoxaparin Sodium 40 mg 01/12/19 10:00 01/14/19 10:03 Lovenox SC 40 mg DAILY [facility] Administration Folic Acid 1 mg 01/12/19 10:00 01/14/19 10:03 Folic Acid PO 1 mg DAILY [facility] Administration Piperacillin Sod/Tazobactam Sod 3.375 gm in 50 mls @ 100 mls/hr 01/11/19 17:30 01/14/19 11:22 Zosyn 3.375 Gm Iv Premix IVPB 100 mls/hr Q6H [facility] Administration Protocol Folic Acid 1 mg/ Thiamine HCl 1,011.2 mls @ 100 mls/hr 01/13/19 15:30 01/14/19 10:03 100 mg/ Multivitamins/Vitamin IV 100 mls/hr C 10 ml/ Dextrose DAILY [facility] Administration Methylprednisolone 40 mg 01/13/19 12:00 01/14/19 11:22 Solu-Medrol IVP 01/16/19 12:01 40 mg Q6H [facility] Administration Multivitamins 1 tab 01/13/19 10:00 01/13/19 09:44 Hexavitamin PO 1 tab DAILY [facility] Administration Pantoprazole Sodium 40 mg 01/15/19 10:00 Protonix Ec Tab PO DAILY [facility] Prednisone 40 mg 01/20/19 10:00 Prednisone Tab PO 01/22/19 10:01 DAILY [facility] Prednisone 60 mg 01/16/19 10:00 Prednisone Tab PO 01/19/19 10:01 DAILY [facility] Prednisone 20 mg 01/23/19 10:00 Prednisone Tab PO DAILY [facility] Prednisone 10 mg 01/24/19 10:00 Prednisone Tab PO DAILY [facility] Thiamine HCl 100 mg 01/12/19 10:00 01/13/19 09:43 Vitamin B1 Tab PO 100 mg DAILY [facility] Administration - Patient Studies Lab Studies: Microbiology Studies 01/11/19 17:00 Blood Culture - Preliminary Blood NO GROWTH AFTER 48 HOURS 01/11/19 14:30 Blood Culture - Preliminary Blood NO GROWTH AFTER 48 HOURS Lab Studies 01/14/19 01/14/19 01/14/19 Range/Units 11:14 07:20 06:07 WBC 13.0 H (4.8-10.8) K/uL RBC 3.02 L (4.40-5.90) Mil/uL Hgb 8.4 L (12.0-18.0) g/dL Hct 26.1 L (35.0-51.0) % MCV 86.7 D (80.0-94.0) fL MCH 27.9 (27.0-31.0) pg MCHC 32.2 L (33.0-37.0) g/dL RDW 20.6 H (11.5-14.5) % Plt Count 147 (130-400) K/uL MPV 8.3 (7.2-11.7) fL Neut % (Auto) 96.7 H (50.0-75.0) % Lymph % (Auto) 2.1 L (20.0-40.0) % [place] % (Auto) 1.1 (0.0-10.0) % Eos % (Auto) 0.0 (0.0-4.0) % Baso % (Auto) 0.1 (0.0-2.0) % Neut # (Auto) 12.6 H (1.8-7.0) K/uL Lymph # (Auto) 0.3 L (1.0-4.3) K/uL [place] # (Auto) 0.1 (0.0-0.8) K/uL Eos # (Auto) 0.0 (0.0-0.7) K/uL Baso # (Auto) 0.0 (0.0-0.2) K/uL Neutrophils % (Manual) 95 H (50-75) % Band Neutrophils % 3 H (0-2) % Lymphocytes % (Manual) 2 L (20-40) % Monocytes % (Manual) TEST NOT PERFORMED Platelet Estimate Normal (NORMAL) Polychromasia Slight Hypochromasia (manual) Slight Anisocytosis (manual) Slight Ovalocytes Slight Sodium (132-148) mmol/L Potassium (3.6-5.2) mmol/L Chloride (98-107) mmol/L Carbon Dioxide (22-30) mmol/L Anion Gap (10-20) BUN (9-20) mg/dL Creatinine (0.8-1.5) mg/dL Est GFR ( Amer) Est GFR (Non-Af Amer) POC Glucose (mg/dL) 189 H 168 H (65-110) mg/dL Random Glucose (75-110) mg/dL Calcium (8.6-10.4) mg/dl Phosphorus (2.5-4.5) mg/dL Magnesium (1.6-2.3) mg/dL Total Bilirubin (0.2-1.3) mg/dL AST (17-59) U/L ALT (21-72) U/L Alkaline Phosphatase (38-126) U/L Total Protein (6.3-8.3) g/dL Albumin (3.5-5.0) g/dL Globulin (2.2-3.9) gm/dL Albumin/Globulin Ratio (1.0-2.1) Free T4 (0.78-2.19) ng/dL TSH 3rd Generation (0.46-4.68) mIU/L 01/14/19 01/14/19 Range/Units 06:04 06:04 WBC (4.8-10.8) K/uL RBC (4.40-5.90) Mil/uL Hgb (12.0-18.0) g/dL Hct (35.0-51.0) % MCV (80.0-94.0) fL MCH (27.0-31.0) pg MCHC (33.0-37.0) g/dL RDW (11.5-14.5) % Plt Count (130-400) K/uL MPV (7.2-11.7) fL Neut % (Auto) (50.0-75.0) % Lymph % (Auto) (20.0-40.0) % [place] % (Auto) (0.0-10.0) % Eos % (Auto) (0.0-4.0) % Baso % (Auto) (0.0-2.0) % Neut # (Auto) (1.8-7.0) K/uL Lymph # (Auto) (1.0-4.3) K/uL [place] # (Auto) (0.0-0.8) K/uL Eos # (Auto) (0.0-0.7) K/uL Baso # (Auto) (0.0-0.2) K/uL Neutrophils % (Manual) (50-75) % Band Neutrophils % (0-2) % Lymphocytes % (Manual) (20-40) % Monocytes % (Manual) Platelet Estimate (NORMAL) Polychromasia Hypochromasia (manual) Anisocytosis (manual) Ovalocytes Sodium 131 L (132-148) mmol/L Potassium 4.3 (3.6-5.2) mmol/L Chloride 97 L (98-107) mmol/L Carbon Dioxide 35 H (22-30) mmol/L Anion Gap 4 L (10-20) BUN 18 (9-20) mg/dL Creatinine 0.6 L (0.8-1.5) mg/dL Est GFR ( Amer) > 60 Est GFR (Non-Af Amer) > 60 POC Glucose (mg/dL) (65-110) mg/dL Random Glucose 151 H D (75-110) mg/dL Calcium 8.2 L (8.6-10.4) mg/dl Phosphorus 2.9 (2.5-4.5) mg/dL Magnesium 2.0 (1.6-2.3) mg/dL Total Bilirubin 0.4 (0.2-1.3) mg/dL AST 98 H D (17-59) U/L ALT 74 H (21-72) U/L Alkaline Phosphatase 69 (38-126) U/L Total Protein 5.4 L (6.3-8.3) g/dL Albumin 3.1 L (3.5-5.0) g/dL Globulin 2.3 (2.2-3.9) gm/dL Albumin/Globulin Ratio 1.3 (1.0-2.1) Free T4 0.88 (0.78-2.19) ng/dL TSH 3rd Generation 0.14 L (0.46-4.68) mIU/L Laboratory Results - last 24 hr 01/14/19 01/14/19 01/14/19 06:04 06:04 06:07 WBC 13.0 H RBC 3.02 L Hgb 8.4 L Hct 26.1 L MCV 86.7 D MCH 27.9 MCHC 32.2 L RDW 20.6 H Plt Count 147 MPV 8.3 Neut % (Auto) 96.7 H Lymph % (Auto) 2.1 L [place] % (Auto) 1.1 Eos % (Auto) 0.0 Baso % (Auto) 0.1 Neut # (Auto) 12.6 H Lymph # (Auto) 0.3 L [place] # (Auto) 0.1 Eos # (Auto) 0.0 Baso # (Auto) 0.0 Neutrophils % (Manual) 95 H Band Neutrophils % 3 H Lymphocytes % (Manual) 2 L Monocytes % (Manual) TEST NOT PERFORMED Platelet Estimate Normal Polychromasia Slight Hypochromasia (manual) Slight Anisocytosis (manual) Slight Ovalocytes Slight Sodium 131 L Potassium 4.3 Chloride 97 L Carbon Dioxide 35 H Anion Gap 4 L BUN 18 Creatinine 0.6 L Est GFR ( Amer) > 60 Est GFR (Non-Af Amer) > 60 POC Glucose (mg/dL) Random Glucose 151 H D Calcium 8.2 L Phosphorus 2.9 Magnesium 2.0 Total Bilirubin 0.4 AST 98 H D ALT 74 H Alkaline Phosphatase 69 Total Protein 5.4 L Albumin 3.1 L Globulin 2.3 Albumin/Globulin Ratio 1.3 Free T4 0.88 TSH 3rd Generation 0.14 L 01/14/19 01/14/19 07:20 11:14 WBC RBC Hgb Hct MCV MCH MCHC RDW Plt Count MPV Neut % (Auto) Lymph % (Auto) [place] % (Auto) Eos % (Auto) Baso % (Auto) Neut # (Auto) Lymph # (Auto) [place] # (Auto) Eos # (Auto) Baso # (Auto) Neutrophils % (Manual) Band Neutrophils % Lymphocytes % (Manual) Monocytes % (Manual) Platelet Estimate Polychromasia Hypochromasia (manual) Anisocytosis (manual) Ovalocytes Sodium Potassium Chloride Carbon Dioxide Anion Gap BUN Creatinine Est GFR ( Amer) Est GFR (Non-Af Amer) POC Glucose (mg/dL) 168 H 189 H Random Glucose Calcium Phosphorus Magnesium Total Bilirubin AST ALT Alkaline Phosphatase Total Protein Albumin Globulin Albumin/Globulin Ratio Free T4 TSH 3rd Generation Critical Care Progress Note - Nutrition Nutrition: Nutrition Category Date Time Status Heart Healthy Diet [DIET] Diets 01/13/19 Breakfast Active Attending/Attestation - Attestation I have personally seen and examined this patient.: Yes I have fully participated in the care of the patient.: Yes I have reviewed all pertinent clinical information: Yes Notes (Text): 01/14/19 17:16 Patient seen and examined in the intensive care unit. Taper steroids Continue nebulizer treatment Stable for transfer to floor
[2019-01-14] MEDS: Folic Acid 1 MG, Thiamine 100 MG, Multivitamin (MVI) 10 ML in Dextrose 5% In Water 1,00... IV SCH (10:03)
[2019-01-14] MEDS: Enoxaparin 40 mg Syringe SC SCH (10:03)
[2019-01-15] MEDS: Albuterol-Ipratrop 3 mg / 0.5 (3 ml) UD INH SCH ×6 (00:25→19:10)
[2019-01-15] MEDS: MethylPREDNISolone 40 mg Vial IVP SCH ×5 (00:41→23:52)
[2019-01-15] MEDS: Piperacill/Tazo 3.375gm in Dex 3.375 GM/50 ML BAG IVPB SCH ×4 (05:30→23:52)
[2019-01-15 06:18] LABS: HEMOGLOBIN 8.3 g/dL (12.0-18.0); LYMPH # 0.3 K/uL (1.0-4.3); LYMPH % 2.4 % (20.0-40.0); MEAN CELL VOLUME 87.1 fL (80.0-94.0); MEAN CORPUSCULAR HGB CONC 32.1 g/dL (33.0-37.0); MEAN PLATELET VOLUME 7.9 fL (7.2-11.7); MONO # 0.2 K/uL (0.0-0.8); NEUT # 10.7 K/uL (1.8-7.0); NEUT % 95.6 % (50.0-75.0); RBC 2.96 Mil/uL (4.40-5.90); RED CELL DISTRIBUTION WIDTH 20.7 % (11.5-14.5); WHITE BLOOD COUNT 11.2 K/uL (4.8-10.8)
[2019-01-15 06:22] LABS: PLATELET COUNT 123 K/uL (130-400)
[2019-01-15 06:31] LABS: ALB/GLOB RATIO 1.6 (1.0-2.1); ALT/SGPT 81 U/L (21-72); AST/SGOT 70 U/L (17-59); BLOOD UREA NITROGEN 18 mg/dL (9-20); CALCIUM 7.9 mg/dl (8.6-10.4); GFR NON-AFRICAN AMERICAN > 60
[2019-01-15 07:57] LABS: BANDS 1 % (0-2); LYMPHOCYTE 4 % (20-40); MONOCYTE 1 % (0-10); NEUTROPHIL 94 % (50-75); TOTAL CELLS COUNTED 100
[2019-01-15 07:58] LABS: ANISOCYTOSIS SLIGHT; HYPOCHROMIC SLIGHT; OVALOCYTES SLIGHT; PLATELET ESTIMATE SLIGHTLY DECREASED (NORMAL); POLYCHROMIC SLIGHT
[2019-01-15] MEDS: Enoxaparin 40 mg Syringe SC SCH (09:21)
[2019-01-15] MEDS: Folic Acid 1 MG, Thiamine 100 MG, Multivitamin (MVI) 10 ML in Dextrose 5% In Water 1,00... IV SCH (09:22)
[2019-01-15] MEDS: Pantoprazole 40 mg EC Tab PO SCH (09:22)
[2019-01-15] MEDS: Multiple Vitamins Tab PO SCH (09:22)
[2019-01-15] MEDS: Budesonide 0.5 mg/2 ml Inhal Susp UD INH SCH ×2 (09:30→19:10)
--- NOTE | 2019-01-15 13:16 | PCM.PYCHPN ---
Psychiatric Progress Note - Psychiatric Progress Note Patient seen today, length of contact: 15 min Patient Chief Complaint: "Same" Problems Identified/Issues Discussed: The pt is seen, chart reviewed, case discussed with staff. Still very lethargic and on O2 continuously. Support and psychoeducation given Pt is improving slowly and needs more time, still has ongoing symptoms. No SEs from medications He needs to go to an alcohol rehab but he had been refusing he is reminded of all the negative consequences of poor after care Medication Change: Yes (start the lexapro) Medical Record Reviewed: Yes Mental Status Examination - Cognitive Function Orientation: Person, Place, Situation Memory: Impaired Attention: Poor Concentration: Poor Association: WNL Fund of Knowledge: Poor - Mood Mood: Depressed, Anxious - Affect Affect: Blunted - Speech Speech: Slurred, Soft - Formal Thought Process Formal Thought Process: No Impairment (slowed) - Suicidal Ideation Suicidal Ideation: No - Homicidal Ideation Homicidal Ideation: No Goal/Treatment Plan - Goal/Treatment Plan Need for Continued Stay: Severe depression anxiety, Discharge may exacerbated symptoms, Severe functional impairment, Other (medical) Progress Toward Problem(s) and Goals/Treatment Plan: No need for detox as he was out only 2-3 days Gabapentin for augmentation if he is anxious - when he is more alert and stable Lexapro to resume with 5 mg for now, hen go up to 20 mg every 2-3 days As needed medications Supportive therapy and psychoeducation HI for abstinence Refer to rehab such as [facility], [facility] or [facility], and self-help groups Teach healthy lifestyle methods, i.e. diet, exercise, meditation Smoking cessation Nicotine patch
--- NOTE | 2019-01-15 15:45 | CP.PCM.PN ---
Subjective - Date & Time of Evaluation Date of Evaluation: 01/15/19 Time of Evaluation: 08:00 - Subjective Subjective: Medicine Progress Note for Dr. Gonzalez's Service: Patient seen and examined at bedside. Patient continues to report shortness of breath. Patient denies any chest pain, fevers, chills, nausea or vomiting. Objective - Vital Signs/Intake and Output Vital Signs (last 24 hours): Temp Pulse Resp BP Pulse Ox 97.7 F 60 22 138/81 99 01/15/19 12:00 01/15/19 13:00 01/15/19 13:00 01/15/19 12:18 01/15/19 13:00 Intake and Output: 01/15/19 01/15/19 06:59 18:59 Intake Total 640 445 Output Total 470 300 Balance 170 145 - Medications Medications: Current Medications Albuterol/Ipratropium (Duoneb 3 Mg/0.5 Mg (3 Ml) Ud) 3 ml INH RQ4 [facility] Last Admin: 01/15/19 13:30 Dose: 3 ml Budesonide (Pulmicort Respules) 0.5 mg INH RQ12 [facility] Last Admin: 01/15/19 09:30 Dose: 0.5 mg Diltiazem HCl (Cardizem) 30 mg PO QID [facility] Last Admin: 01/15/19 15:07 Dose: 30 mg Enoxaparin Sodium (Lovenox) 40 mg SC DAILY [facility] Last Admin: 01/15/19 09:21 Dose: 40 mg Folic Acid (Folic Acid) 1 mg PO DAILY [facility] Last Admin: 01/15/19 09:21 Dose: 1 mg Piperacillin Sod/Tazobactam Sod (Zosyn 3.375 Gm Iv Premix) 3.375 gm in 50 mls @ 100 mls/hr IVPB Q6H [facility]; Protocol Last Admin: 01/15/19 12:11 Dose: 100 mls/hr Folic Acid 1 mg/ Thiamine HCl 100 mg/ Multivitamins/Vitamin C 10 ml/ Dextrose 1 ,011.2 mls @ 100 mls/hr IV DAILY [facility] Last Admin: 01/15/19 09:22 Dose: 100 mls/hr Methylprednisolone (Solu-Medrol) 40 mg IVP Q6H [facility] Stop: 01/16/19 12:01 Last Admin: 01/15/19 12:12 Dose: 40 mg Multivitamins (Hexavitamin) 1 tab PO DAILY [facility] Last Admin: 01/15/19 09:22 Dose: 1 tab Pantoprazole Sodium (Protonix Ec Tab) 40 mg PO DAILY [facility] Last Admin: 01/15/19 09:22 Dose: 40 mg Prednisone (Prednisone Tab) 40 mg PO DAILY [facility] Stop: 01/22/19 10:01 Prednisone (Prednisone Tab) 60 mg PO DAILY [facility] Stop: 01/19/19 10:01 Prednisone (Prednisone Tab) 20 mg PO DAILY [facility] Prednisone (Prednisone Tab) 10 mg PO DAILY [facility] Promethazine HCl (Phenergan Syrup) 12.5 mg PO Q6 PRN PRN Reason: Cough Thiamine HCl (Vitamin B1 Tab) 100 mg PO DAILY [facility] Last Admin: 01/15/19 09:25 Dose: 100 mg - Labs Labs: 01/15/19 06:09 01/15/19 06:09 PT 10.3 SECONDS (9.7-12.2) 01/11/19 14:06 INR 0.9 01/11/19 14:06 APTT 31 SECONDS (21-34) 01/11/19 14:06 - Constitutional Appears: In Acute Distress, Chronically Ill - Head Exam Head Exam: ATRAUMATIC, NORMAL INSPECTION - Eye Exam Eye Exam: EOMI, Normal appearance - ENT Exam ENT Exam: Mucous Membranes Moist - Respiratory Exam Respiratory Exam: Wheezes - Cardiovascular Exam Cardiovascular Exam: REGULAR RHYTHM, +S1, +S2 - GI/Abdominal Exam GI & Abdominal Exam: Soft, Normal Bowel Sounds. absent: Tenderness - Extremities Exam Extremities Exam: Normal Inspection - Neurological Exam Neurological Exam: Alert, Awake, Oriented x3 - Psychiatric Exam Psychiatric exam: Depressed Assessment and Plan - Assessment and Plan (Free Text) Assessment: 58 year old male with a past medical history of heroin abuse, copd, and polysubstance abuse presents for hypothermia. COPD Exacerbation - rapid response x2 was called on 01/13/19 for respiratory distress. At that time patient was transferred to ICU for closer observation, placed on bipap and given duoneb and racemic epinephrine. Patient has been has been transferred out of ICU and currently on tele 01/15/19. - Critical Care consult: Dr. Bragg --> help appreciated - Patient is currently on BiPap - Medications: * Duonebs q4h * Pulmicort 0.5mg INH RQ12 * Solu-Medrol 40mg IV q6h (stop 01/16/19 * Prednisone 60mg po daily for 3 days --> Prednisone 40mg po daily for 3 days --> Prednisone 20mg po daily for 3 days --> Prednisone 10mg po daily for 3 days Anemia - Hemoglobin 12---> 8.3 - f/u Stool occult blood - Type and Screen - Will monitor with serial CBC's Polysubstance abuse - Psych Consult: Dr. Heredia --> help appreciated - Alcohol level on admission (01/11/19): 216; positive for benzodiazepines - Medications: * Multivitamin po daily * Folic acid 1mg PO DAILY FERNANDA * Thiamin 100mg PO DAILY FERNANDA * Nicotine Patch TD New Onset Atrial fibrillation - Likely 2/2 to etoh abuse. Patient has no history of atrial fibrillation in the past - Due to patient polysubstance abuse, and withdrawl symptoms patient is a high fall risk - anticoagulation not recommended currently as patient a fall risk - Medications: * Cardizem 30mg po qid Leukocytosis WBC: 16.9 --->11.2 - Likely secondary to steroids - Blood cultures and Urine cultures are negative - Chest xray (01/13/18): No focal consolisation Medications: * Zosyn 3.375mg IVPB Q6 ( patient has refused last 3 dose per Nursing Staff) Elevated Liver Enzymes - likely secondary to alcohol abuse - continue to monitor BPH - Flomax 0.4 mg PO daily Depression - Lexapro 20mg po daily Prophylaxis - GI: Protonix 40mg PO daily - DVT: Lovenox 40mg SC daily Case discussed with and patient seen with Dr. Gonzalez. Madeleine Del Valle PGY-2
[2019-01-15] MEDS: Promethazine 12.5 mg/10 ml Syrup PO PRN (16:03)
--- NOTE | 2019-01-15 17:11 | CARD ---
APPROVED REPORT Date of service: 01/15/2019 EXAM: Two-dimensional and M-mode echocardiogram with Doppler and color Doppler. INDICATION Congestive Heart Failure ETOH ABUSE RISK FACTORS Hypertension 2D DIMENSIONS IVSd0.8 (0.7-1.1cm)LVDd4.7 (3.9-5.9cm) PWd0.8 (0.7-1.1cm)LA Vuhrfh24 (18-58mL) LVDs3.2 (2.5-4.0cm)FS (%) 33.3 % LVEF (%)61.9 (>50%)LVEF (White's)59.87 % M-Mode DIMENSIONS Left Atrium (MM)3.44 (2.5-4.0cm)IVSd0.63 (0.7-1.1cm) Aortic Root3.57 (2.2-3.7cm)LVDd5.13 (4.0-5.6cm) Aortic Cusp Exc.1.94 (1.5-2.0cm)PWd0.86 (0.7-1.1cm) FS (%) 29 %LVDs3.65 (2.0-3.8cm) LVEF (%)55 (>50%) Mitral Valve MV E Uuwhqice23.9cm/sMV A Iyojkmdp46.8cm/sE/A ratio1.0 TDI Lateral E' Peak V11.51cm/sMedial E' Peak V8.16cm/sE/Lateral E'6.3 E/Medial E'8.9 LEFT VENTRICLE The left ventricle is normal size. There is normal left ventricular wall thickness. The left ventricular function is normal. The left ventricular ejection fraction is within the normal range. There is normal LV segmental wall motion. The left ventricular diastolic function is normal. Normal left atrial pressure. RIGHT VENTRICLE The right ventricle is mildly dilated. The right ventricular systolic function is normal. ATRIA The left atrium size is normal. The right atrium size is normal. AORTIC VALVE The aortic valve is normal in structure. No aortic regurgitation is present. There is no aortic valvular stenosis. MITRAL VALVE The mitral valve is normal in structure. There is no mitral valve regurgitation noted. TRICUSPID VALVE The tricuspid valve is normal in structure. There is no tricuspid valve regurgitation noted. PULMONIC VALVE The pulmonic valve is not well visualized. GREAT VESSELS The aortic root is normal in size. The IVC is mildly dilated. PERICARDIAL EFFUSION There is no pericardial effusion. <Conclusion> Normal bi-ventricular function. No gross valvular abnormality No pericardial effusion.
[2019-01-16] MEDS: Albuterol-Ipratrop 3 mg / 0.5 (3 ml) UD INH SCH ×6 (00:49→19:30)
[2019-01-16] MEDS: Piperacill/Tazo 3.375gm in Dex 3.375 GM/50 ML BAG IVPB SCH ×4 (04:55→22:32)
[2019-01-16] MEDS: MethylPREDNISolone 40 mg Vial IVP SCH ×2 (05:47→11:28)
[2019-01-16] MEDS: Promethazine 12.5 mg/10 ml Syrup PO PRN ×2 (05:49→19:18)
[2019-01-16 06:09] LABS: HEMOGLOBIN 8.2 g/dL (12.0-18.0); LYMPH # 0.2 K/uL (1.0-4.3); LYMPH % 2.2 % (20.0-40.0); MEAN CELL VOLUME 88.2 fL (80.0-94.0); MEAN CORPUSCULAR HGB CONC 31.8 g/dL (33.0-37.0); MEAN PLATELET VOLUME 8.3 fL (7.2-11.7); MONO # 0.2 K/uL (0.0-0.8); MONO % 1.8 % (0.0-10.0); NEUT # 8.7 K/uL (1.8-7.0); PLATELET COUNT 108 K/uL (130-400); RBC 2.91 Mil/uL (4.40-5.90); RED CELL DISTRIBUTION WIDTH 20.7 % (11.5-14.5); WHITE BLOOD COUNT 9.1 K/uL (4.8-10.8)
[2019-01-16 06:28] LABS: ALB/GLOB RATIO 1.6 (1.0-2.1); ALBUMIN 2.9 g/dL (3.5-5.0); ALT/SGPT 67 U/L (21-72); AST/SGOT 44 U/L (17-59); BLOOD UREA NITROGEN 18 mg/dL (9-20); CALCIUM 7.9 mg/dl (8.6-10.4); GFR NON-AFRICAN AMERICAN > 60
--- NOTE | 2019-01-16 07:56 | CP.PCM.PN ---
Subjective - Date & Time of Evaluation Date of Evaluation: 01/16/19 Time of Evaluation: 07:46 - Subjective Subjective: Progress note for Dr. Gonzalez Patient was seen and examined at bedside in no acute distress. Patient states he is still short of breath even with the nasal cannula and prefers the bipap. He says he has palpitations when getting up to go to the bathroom and he has pain with coughing. He denies nausea, vomiting, fevers, headaches, dizziness, abdominal pain, leg pain. Objective - Vital Signs/Intake and Output Vital Signs (last 24 hours): Temp Pulse Resp BP Pulse Ox 98.0 F 80 17 158/80 H 97 01/16/19 04:00 01/16/19 03:17 01/16/19 03:17 01/16/19 03:17 01/16/19 04:00 Intake and Output: 01/16/19 01/16/19 06:59 18:59 Intake Total 1625 Output Total 900 Balance 725 - Medications Medications: Current Medications Albuterol/Ipratropium (Duoneb 3 Mg/0.5 Mg (3 Ml) Ud) 3 ml INH RQ4 [facility] Last Admin: 01/16/19 03:23 Dose: Not Given Budesonide (Pulmicort Respules) 0.5 mg INH RQ12 [facility] Last Admin: 01/15/19 19:10 Dose: Not Given Diltiazem HCl (Cardizem) 30 mg PO QID [facility] Last Admin: 01/15/19 22:18 Dose: 30 mg Enoxaparin Sodium (Lovenox) 40 mg SC DAILY [facility] Last Admin: 01/15/19 09:21 Dose: 40 mg Escitalopram Oxalate (Lexapro) 20 mg PO DAILY [facility] Folic Acid (Folic Acid) 1 mg PO DAILY [facility] Last Admin: 01/15/19 09:21 Dose: 1 mg Gabapentin (Neurontin) 100 mg PO DAILY [facility] Piperacillin Sod/Tazobactam Sod (Zosyn 3.375 Gm Iv Premix) 3.375 gm in 50 mls @ 100 mls/hr IVPB Q6H [facility]; Protocol Last Admin: 01/16/19 04:55 Dose: 100 mls/hr Folic Acid 1 mg/ Thiamine HCl 100 mg/ Multivitamins/Vitamin C 10 ml/ Dextrose 1,011.2 mls @ 100 mls/hr IV DAILY [facility] Last Admin: 01/15/19 09:22 Dose: 100 mls/hr Methylprednisolone (Solu-Medrol) 40 mg IVP Q6H [facility] Stop: 01/16/19 12:01 Last Admin: 01/16/19 05:47 Dose: 40 mg Multivitamins (Hexavitamin) 1 tab PO DAILY [facility] Last Admin: 01/15/19 09:22 Dose: 1 tab Nicotine (Nicoderm Cq) 1 patch TD DAILY [facility] Last Admin: 01/15/19 17:25 Dose: 1 patch Pantoprazole Sodium (Protonix Ec Tab) 40 mg PO DAILY [facility] Last Admin: 01/15/19 09:22 Dose: 40 mg Prednisone (Prednisone Tab) 40 mg PO DAILY [facility] Stop: 01/22/19 10:01 Prednisone (Prednisone Tab) 60 mg PO DAILY [facility] Stop: 01/19/19 10:01 Prednisone (Prednisone Tab) 20 mg PO DAILY [facility] Prednisone (Prednisone Tab) 10 mg PO DAILY [facility] Promethazine HCl (Phenergan Syrup) 12.5 mg PO Q6 PRN PRN Reason: Cough Last Admin: 01/16/19 05:49 Dose: 12.5 mg Tamsulosin HCl (Flomax) 0.4 mg PO DAILY [facility] Thiamine HCl (Vitamin B1 Tab) 100 mg PO DAILY [facility] Last Admin: 01/15/19 09:25 Dose: 100 mg - Labs Labs: 01/16/19 05:59 01/16/19 05:55 PT 10.3 SECONDS (9.7-12.2) 01/11/19 14:06 INR 0.9 01/11/19 14:06 APTT 31 SECONDS (21-34) 01/11/19 14:06 - Constitutional Appears: No Acute Distress - Head Exam Head Exam: ATRAUMATIC, NORMAL INSPECTION - Eye Exam Eye Exam: EOMI, Normal appearance - ENT Exam ENT Exam: Mucous Membranes Moist - Respiratory Exam Respiratory Exam: Accessory Muscle Use, Decreased Breath Sounds, Wheezes. absent: Clear to Ausculation Bilateral - Cardiovascular Exam Cardiovascular Exam: Irregular Rhythm, +S1, +S2 - GI/Abdominal Exam GI & Abdominal Exam: Soft, Normal Bowel Sounds. absent: Distended, Firm, Tenderness - Extremities Exam Extremities Exam: Normal Inspection. absent: Calf Tenderness, Pedal Edema, Tenderness - Neurological Exam Neurological Exam: Alert, Awake, Oriented x3 - Psychiatric Exam Psychiatric exam: Normal Affect, Normal Mood - Skin Skin Exam: Dry, Warm Assessment and Plan - Assessment and Plan (Free Text) Plan: 58 year old male with a past medical history of heroin abuse, copd, and po lysubstance abuse presents for hypothermia. COPD Exacerbation - [employer] x2 was called on 01/13/19 for respiratory distress. At that time patient was transferred to ICU for closer observation, placed on bipap and given duoneb and racemic epinephrine. Patient has been has been transferred out of ICU and currently on tele 01/15/19. - Patient is currently on BiPap - Medications: * Duonebs q4h * Pulmicort 0.5mg INH RQ12 * Solu-Medrol 40mg IV q6h (stop 01/16/19) * Prednisone 60mg po daily for 3 days --> Prednisone 40mg po daily for 3 days --> Prednisone 20mg po daily for 3 days --> Prednisone 10mg po daily for 3 days Anemia - Hemoglobin 12---> 8.3 - f/u Stool occult blood - Type and Screen - Will monitor with serial CBC's Polysubstance abuse - Psych Consult: Dr. Heredia --> help appreciated - Alcohol level on admission (01/11/19): 216; positive for benzodiazepines - Medications: * Multivitamin po daily * Folic acid 1mg PO DAILY FERNANDA * Thiamine 100mg PO DAILY FERNANDA * Nicotine Patch TD New Onset Atrial fibrillation - Likely 2/2 to etoh abuse. Patient has no history of atrial fibrillation in the past - Due to patient polysubstance abuse, and withdrawal symptoms patient is a high fall risk * anticoagulation not recommended currently as patient a fall risk - Medications: * Cardizem 30mg po qid Leukocytosis - Resolved - WBC: 16.9 --->11.2 - Likely secondary to steroids - Blood cultures and Urine cultures are negative - Chest xray (01/13/18): No focal consolidation - Medications: * Zosyn 3.375mg IVPB Q6 Elevated Liver Enzymes - Normalized, was likely secondary to alcohol abuse - continue to monitor BPH - Flomax 0.4 mg PO daily Depression - Lexapro 20mg po daily Prophylaxis - GI: Protonix 40mg PO daily - DVT: Lovenox 40mg SC daily Case discussed with and patient seen with Dr. Gonzalez. Tona Esqueda, PGY2
[2019-01-16] MEDS: Budesonide 0.5 mg/2 ml Inhal Susp UD INH SCH (07:58)
[2019-01-16 08:51] LABS: LYMPHOCYTE 1 % (20-40); MONOCYTE 1 % (0-10); NEUTROPHIL 98 % (50-75); TOTAL CELLS COUNTED 100
[2019-01-16 08:52] LABS: ANISOCYTOSIS SLIGHT; HYPOCHROMIC SLIGHT; PLATELET ESTIMATE SLIGHTLY DECREASED (NORMAL); POLYCHROMIC SLIGHT
[2019-01-16 08:53] LABS: B-TYPE NATRIURETIC PEPTIDE 2190 pg/mL (0-900)
[2019-01-16 10:34] LABS: HEPATITIS B SURFACE AG Negative (NEGATIVE)
[2019-01-16 10:40] LABS: HEPATITIS A IGM NEGATIVE (NEGATIVE); HEPATITIS B CORE AB NEGATIVE (NEGATIVE)
[2019-01-16 10:51] LABS: HEPATITIS C ANTIBODY NEGATIVE (NEGATIVE)
[2019-01-16] MEDS: Multiple Vitamins Tab PO SCH (11:20)
[2019-01-16] MEDS: Pantoprazole 40 mg EC Tab PO SCH (11:21)
[2019-01-16] MEDS: Enoxaparin 40 mg Syringe SC SCH (11:22)
[2019-01-16] MEDS: Folic Acid 1 MG, Thiamine 100 MG, Multivitamin (MVI) 10 ML in Dextrose 5% In Water 1,00... IV SCH (11:30)
--- NOTE | 2019-01-16 12:05 | CP.PCM.PCO ---
Physician Communication Note - Physician Communication Note Physician Communication Note: Lexapro dose corrected. He shouldn't start with 20 mg at this time.
[2019-01-17] MEDS: Albuterol-Ipratrop 3 mg / 0.5 (3 ml) UD INH SCH ×7 (01:06→23:53)
[2019-01-17] MEDS: Promethazine 12.5 mg/10 ml Syrup PO PRN ×2 (05:54→19:30)
[2019-01-17] MEDS: Piperacill/Tazo 3.375gm in Dex 3.375 GM/50 ML BAG IVPB SCH ×4 (05:54→22:37)
[2019-01-17 07:16] LABS: BASO % 0.1 % (0.0-2.0); HEMOGLOBIN 8.5 g/dL (12.0-18.0); LYMPH # 0.4 K/uL (1.0-4.3); LYMPH % 4.5 % (20.0-40.0); MEAN CELL VOLUME 87.1 fL (80.0-94.0); MEAN CORPUSCULAR HEMOGLOBIN 28.5 pg (27.0-31.0); MEAN CORPUSCULAR HGB CONC 32.7 g/dL (33.0-37.0); MEAN PLATELET VOLUME 9.1 fL (7.2-11.7); MONO # 0.3 K/uL (0.0-0.8); MONO % 2.7 % (0.0-10.0); NEUT # 8.8 K/uL (1.8-7.0); NEUT % 92.7 % (50.0-75.0); PLATELET COUNT 122 K/uL (130-400); RBC 2.99 Mil/uL (4.40-5.90); RED CELL DISTRIBUTION WIDTH 20.6 % (11.5-14.5); WHITE BLOOD COUNT 9.5 K/uL (4.8-10.8)
[2019-01-17] MEDS: Budesonide 0.5 mg/2 ml Inhal Susp UD INH SCH ×2 (07:25→20:17)
[2019-01-17 08:02] LABS: ALB/GLOB RATIO 1.3 (1.0-2.1); ALT/SGPT 62 U/L (21-72); AST/SGOT 43 U/L (17-59); BLOOD UREA NITROGEN 19 mg/dL (9-20); CALCIUM 8.2 mg/dl (8.6-10.4); GFR NON-AFRICAN AMERICAN > 60
[2019-01-17 09:08] LABS: ANISOCYTOSIS MODERATE; LARGE PLATELETS PRESENT; LYMPHOCYTE 4 % (20-40); MONOCYTE 2 % (0-10); NEUTROPHIL 94 % (50-75); PLATELET ESTIMATE SLIGHTLY DECREASED (NORMAL); TOTAL CELLS COUNTED 100
[2019-01-17 09:09] LABS: HYPOCHROMIC SLIGHT; OVALOCYTES SLIGHT; POIKILOCYTOSIS SLIGHT; POLYCHROMIC SLIGHT
[2019-01-17 09:10] LABS: GIANT PLATELETS PRESENT; SCHISTOCYTES SLIGHT; TOXIC GRANULATION PRESENT
[2019-01-17] MEDS ORDERED: Potassium Chloride 20 mEq ER Tab PO ONE (10:00)
[2019-01-17 10:16] LABS: ABG ALLEN TEST POS; ARTERIAL BLOOD GAS HCO3 46.8 mmol/L (21-28); ARTERIAL BLOOD GAS HEMOGLOBIN 9.5 g/dL (11.7-17.4); ARTERIAL BLOOD GAS O2 SAT 96.8 % (95-98); ARTERIAL BLOOD GAS PCO2 67 mm/Hg (35-45); ARTERIAL BLOOD GAS PH 7.52 (7.35-7.45); ARTERIAL BLOOD GAS PO2 62 mm/Hg (80-100); ARTERIAL BLOOD GAS TCO2 56.8 mmol/L (22-28)
[2019-01-17] MEDS: Magnesium Oxide 400 mg Tab UD PO SCH ×2 (10:26→19:02)
[2019-01-17] MEDS: Multiple Vitamins Tab PO SCH (10:26)
[2019-01-17] MEDS: Pantoprazole 40 mg EC Tab PO SCH (10:27)
[2019-01-17] MEDS: Enoxaparin 40 mg Syringe SC SCH (10:28)
[2019-01-17] MEDS: Folic Acid 1 MG, Thiamine 100 MG, Multivitamin (MVI) 10 ML in Dextrose 5% In Water 1,00... IV SCH (10:28)
[2019-01-17] MEDS: Potassium Chloride 20 mEq ER Tab PO SCH (13:28)
[2019-01-18] MEDS: Albuterol-Ipratrop 3 mg / 0.5 (3 ml) UD INH SCH ×5 (03:31→19:44)
[2019-01-18] MEDS: Piperacill/Tazo 3.375gm in Dex 3.375 GM/50 ML BAG IVPB SCH ×4 (04:35→23:16)
[2019-01-18] MEDS: Budesonide 0.5 mg/2 ml Inhal Susp UD INH SCH ×2 (07:25→19:44)
[2019-01-18 09:15] LABS: BASO % 0.3 % (0.0-2.0); EOS % 0.1 % (0.0-4.0); HEMOGLOBIN 9.8 g/dL (12.0-18.0); LYMPH # 0.7 K/uL (1.0-4.3); LYMPH % 10.2 % (20.0-40.0); MEAN CORPUSCULAR HEMOGLOBIN 28.1 pg (27.0-31.0); MEAN CORPUSCULAR HGB CONC 32.3 g/dL (33.0-37.0); MEAN PLATELET VOLUME 8.3 fL (7.2-11.7); MONO # 0.2 K/uL (0.0-0.8); MONO % 3.3 % (0.0-10.0); NEUT # 6.3 K/uL (1.8-7.0); NEUT % 86.1 % (50.0-75.0); NRBC % 0.1 % (0.0-2.0); RBC 3.5 Mil/uL (4.40-5.90); RED CELL DISTRIBUTION WIDTH 20.6 % (11.5-14.5); WHITE BLOOD COUNT 7.3 K/uL (4.8-10.8)
[2019-01-18 10:20] LABS: ALB/GLOB RATIO 1.2 (1.0-2.1); ALBUMIN 3.2 g/dL (3.5-5.0); ALT/SGPT 53 U/L (21-72); AST/SGOT 38 U/L (17-59); BLOOD UREA NITROGEN 15 mg/dL (9-20); CALCIUM 8.5 mg/dl (8.6-10.4); GFR NON-AFRICAN AMERICAN > 60
[2019-01-18] MEDS: Potassium Chloride 20 mEq ER Tab PO SCH (10:42)
[2019-01-18] MEDS: Magnesium Oxide 400 mg Tab UD PO SCH ×2 (10:43→17:15)
[2019-01-18] MEDS: Multiple Vitamins Tab PO SCH (10:43)
[2019-01-18] MEDS: Enoxaparin 40 mg Syringe SC SCH (10:43)
[2019-01-18] MEDS: Promethazine 12.5 mg/10 ml Syrup PO PRN (10:44)
[2019-01-18] MEDS: Folic Acid 1 MG, Thiamine 100 MG, Multivitamin (MVI) 10 ML in Dextrose 5% In Water 1,00... IV SCH (12:38)
[2019-01-18] MEDS: Pantoprazole 40 mg EC Tab PO SCH (12:47)
--- NOTE | 2019-01-18 18:09 | CP.PCM.CON ---
History of Present Illness - History of Present Illness History of Present Illness: I was asked to see patient by Dr Gonzalez. patient seen 01/18/191805 Patient has a history of HTN ETOH abuse and PAF who presents with respiratory distress. He had an episode of afib with RVR. The patient is currently in sinus rhythm He is on BiPAP. Review of Systems - Constitutional Constitutional: absent: As Per HPI, Anorexia, Chills, Daytime Sleepiness, Excessive Sweating, Fatigue, Fever, Frequent Falls, Headache, Increased Appetite, Lethargy, Malaise, Night Sweats, Snoring, Sleep Apnea, Weight Gain, Weight Loss, Weakness, Other - EENT Eyes: absent: As Per HPI, Blind Spots, Blurred Vision, Change in Vision, Decreased Night Vision, Diplopia, Discharge, Dry Eye, Exophthalmos, Floaters, Irritation, Itchy Eyes, Loss of Peripheral Vision, Pain, Photophobia, Requires Corrective Lenses, Sees Flashes, Spots in Vision, Tunnel Vision, Other Visual Disturbances, Loss of Vision, Other Ears: absent: As Per HPI, Decreased Hearing, Ear Discharge, Ear Pain, Tinnitus, Abnormal Hearing, Disequilibrium, Dizziness, Other Nose/Mouth/Throat: absent: As Per HPI, Epistaxis, Nasal Congestion, Nasal Discharge, Nasal Obstruction, Nasal Trauma, Nose Pain, Post Nasal Drip, Sinus Pain, Sinus Pressure, Bleeding Gums, Change in Voice, Dental Pain, Dry Mouth, Dysphagia, Halitosis, Hoarsness, Lip Swelling, Mouth Lesions, Mouth Pain, Odynophagia, Sore Throat, Throat Swelling, Tongue Swelling, Facial Pain, Neck Pain, Neck Mass, Other - Cardiovascular Cardiovascular: absent: As Per HPI, Acrocyanosis, Chest Pain, Chest Pain at Rest, Chest Pain with Activity, Claudication, Diaphoresis, Dyspnea, Dyspnea on Exertion, Edema, Irregular Heart Rhythm, Pain Radiating to Arm/Neck/Jaw, Leg Edema, Leg Ulcers, Lightheadedness, Orthopnea, Palpitations, Paroxysmal Nocturnal Dyspnea, Pedal Edema, Radiating Pain, Rapid Heart Rate, Slow Heart Rate, Syncope, Other - Respiratory Respiratory: absent: As Per HPI, Cough, Dyspnea, Hemoptysis, Dyspnea on Exertion, Wheezing, Snoring, Stridor, Pain on Inspiration, Chest Congestion, Excessive Mucous Production, Change in Mucous Color, Pain with Coughing, Other - Gastrointestinal Gastrointestinal: absent: As Per HPI, Abdominal Pain, Belching, Bloating, Change in Bowel Habits, Change in Stool Character, Coffee Ground Emesis, Constipation, Cramping, Diarrhea, Dyspepsia, Dysphagia, Early Satiety, Excessive Flatus, Fecal Incontinence, Heartburn, Hematemesis, Hematochezia, Loose Stools, Melena, Nausea, Odynophagia, Temesmus, Vomiting, Other - Genitourinary Genitourinary: absent: As Per HPI, Change in Urinary Stream, Difficulty Urinating, Dysuria, Flank Pain, Hematuria, Pyuria, Nocturia, Urinary Incontinence, Urinary Frequency, Urinary Hesitance, Urinary Urgency, Voiding Freq/Small Amts, Freq UTI, Hx Renal/Bladder Calculi, Hx /Renal Surgery, Bladder Distension, Other - Musculoskeletal Musculoskeletal: absent: As Per HPI, Abnormal Gait, Arthralgias, Atrophy, Back Pain, Deformity, Joint Swelling, Limited Range of Motion, Loss of Height, Muscle Cramps, Muscle Weakness, Myalgias, Neck Pain, Numbness, Radiating Pain into Limb, Stiffness, Tingling, Other - Integumentary Integumentary: absent: As Per HPI, Acne, Alopecia, Bleeding Lesions, Change in Hair, Change in Nails, Change in Pigmentation, Changing Lesions, Dry Skin, Erythema, Furuncle, Hirsutism, Lesions, New Lesions, Non-Healing Lesions, Photosensitivity, Pruritus, Rash, Skin Pain, Skin Ulcer, Sores, Striae, Swelling, Unusual Bruising, Wounds, Jaundice, Other - Neurological Neurological: absent: As Per HPI, Abnormal Gait, Abnormal Hearing, Abnormal Movements, Abnormal Speech, Behavioral Changes, Burning Sensations, Confusion, Convulsions, Disequilibrium, Dizziness, Numbness, Focal Weakness, Frequent Fal ls, Headaches, Lack of Coordination, Loss of Vision, Memory Loss, Paresthesias, Radicular Pain, Restless Legs, Sensory Deficit, Syncope, Tingling, Tremor, Vertigo, Weakness, Other Visual Disturbances, Other - Psychiatric Psychiatric: absent: As Per HPI, Abnormal Sleep Pattern, Anhedonia, Anxiety, Auditory Hallucinations, Behavioral Changes, Change in Appetite, Change in Libido, Confusion, Depression, Difficulty Concentrating, Hallucinations, Homicidal Ideation, Hopelessness, Irritability, Memory Loss, Mood Swings, Panic Attacks, Paranoia, Suicidal Ideation, Visual Hallucinations, Tactile Hallucinations, Other - Endocrine Endocrine: absent: As Per HPI, Change in Body Appearance, Change in Libido, Cold Intolorance, Deepening of Voice, Excessive Sweating, Fatigue, Flushing, Heat Intolorance, Increase in Ring/Shoe/Hat Size, Palpitations, Polydipsia, Polyphagia, Polyuria, Other - Hematologic/Lymphatic Hematologic: absent: As Per HPI, Easy Bleeding, Easy Bruising, Lymphadenopathy, Other Past Patient History - Infectious Disease Hx of Infectious Diseases: None - Tetanus Immunizations Tetanus Immunization: Unknown - Past Medical History & Family History Past Medical History?: Yes - Past Social History Smoking Status: Heavy Smoker > 10 Cigarettes Daily Chewing Tobacco Use: No Cigar Use: No Alcohol: > 2 Drinks/Day Drugs: Cannabis, Opiates Home Situation {Lives}: Homeless - CARDIAC Hx Atrial Fibrillation: No Hx Cardia Arrhythmia: No Hx Congestive Heart Failure: No Hx Hypercholesterolemia: No Hx Hypertension: Yes Hx Mitral Valve Prolapse: No Hx Pacemaker: No Hx Peripheral Edema: No - PULMONARY Hx Asthma: Yes Hx Bronchitis: Yes Hx Chronic Obstructive Pulmonary Disease (COPD): Yes Hx Emphysema: No Hx Pneumonia: Yes Hx Pulmonary Embolism: No Hx Sleep Apnea: No - NEUROLOGICAL Hx Alzheimer's Disease: No Hx Dementia: No Hx Migraine: No Hx Multiple Sclerosis: No Hx Parkinson's Disease: No Hx Seizures: No Hx Transient Ischemic Attacks (TIA): No - HEENT Hx HEENT Problems: No Hx Blind: No Hx Cataracts: No Hx Deafness: No Hx Difficulty Chewing: No Hx Epistaxis: No Hx Glaucoma: No Hx Macular Degeneration: No - RENAL Hx Chronic Kidney Disease: No Hx Kidney Stones: No - ENDOCRINE/METABOLIC Hx Hyperthyroidism: No Hx Hypothyroidism: No - HEMATOLOGICAL/ONCOLOGICAL Hx Anemia: No Hx Human Immunodeficiency Virus (HIV): No Hx Sickle Cell Disease: No - INTEGUMENTARY Hx Dermatological Problems: No Hx Basil Cell: No Hx Wu: No Hx Cellulitis: No Hx Eczema: No Hx Melanoma: No Hx Psoriasis: No Hx Squamous Cell: No - MUSCULOSKELETAL/RHEUMATOLOGICAL Hx Arthritis: No Hx Fractures: No Hx Osteoporosis: No Hx Rheumatoid Arthritis: No - GASTROINTESTINAL Hx Crohn's Disease: No Hx Diverticulitis: No Hx Gall Bladder Disease: No Hx Gastritis: Yes Hx Pancreatitis: No - GENITOURINARY/GYNECOLOGICAL Hx Sexually Transmitted Disorders: No - PSYCHIATRIC Hx Anxiety: Yes Hx Bipolar Disorder: No Hx Depression: Yes Hx Paranoia: No Hx Post Traumatic Stress Disorder: No Hx Schizophrenia: No Hx Substance Use: Yes - SURGICAL HISTORY Hx Appendectomy: Yes Hx Carotid Endarterectomy: No Hx Cholecystectomy: No Hx Coronary Artery Bypass Graft: No Hx Coronary Stent: No Hx Tonsillectomy: Yes - ANESTHESIA Hx Anesthesia: Yes Hx Anesthesia Reactions: No Hx Malignant Hyperthermia: No Meds Allergies/Adverse Reactions: Allergies Allergy/AdvReac Type Severity Reaction Status Date / Time No Known Allergies Allergy Verified 01/11/19 13:59 - Medications Medications: Current Medications Albuterol/Ipratropium (Duoneb 3 Mg/0.5 Mg (3 Ml) Ud) 3 ml INH RQ4 [facility] Last Admin: 01/18/19 16:08 Dose: 3 ml Budesonide (Pulmicort Respules) 0.5 mg INH RQ12 [facility] Last Admin: 01/18/19 07:25 Dose: 0.5 mg Diltiazem HCl (Cardizem) 30 mg PO QID [facility] Last Admin: 01/18/19 17:15 Dose: 30 mg Enoxaparin Sodium (Lovenox) 40 mg SC DAILY [facility] Last Admin: 01/18/19 10:43 Dose: 40 mg Escitalopram Oxalate (Lexapro) 10 mg PO DAILY [facility] Last Admin: 01/18/19 10:42 Dose: 10 mg Folic Acid (Folic Acid) 1 mg PO DAILY [facility] Last Admin: 01/18/19 10:42 Dose: 1 mg Gabapentin (Neurontin) 100 mg PO DAILY [facility] Last Admin: 01/18/19 10:43 Dose: 100 mg Hydroxyzine HCl (Atarax) 25 mg PO Q6H PRN PRN Reason: severe anxiety Piperacillin Sod/Tazobactam Sod (Zosyn 3.375 Gm Iv Premix) 3.375 gm in 50 mls @ 100 mls/hr IVPB Q6H [facility]; Protocol Last Admin: 01/18/19 17:15 Dose: 100 mls/hr Magnesium Oxide (Mag-Ox) 400 mg PO BID [facility] Stop: 01/19/19 10:01 Last Admin: 01/18/19 17:15 Dose: 400 mg Multivitamins (Hexavitamin) 1 tab PO DAILY [facility] Last Admin: 01/18/19 10:43 Dose: 1 tab Nicotine (Nicoderm Cq) 1 patch TD DAILY [facility] Last Admin: 01/18/19 10:43 Dose: 1 patch Pantoprazole Sodium (Protonix Ec Tab) 40 mg PO DAILY [facility] Last Admin: 01/18/19 12:47 Dose: 40 mg Potassium Chloride (K-Dur 20 Meq Er Tab) 20 meq PO DAILY [facility] Stop: 01/19/19 14:01 Last Admin: 01/18/19 10:42 Dose: 20 meq Prednisone (Prednisone Tab) 40 mg PO DAILY [facility] Stop: 01/22/19 10:01 Prednisone (Prednisone Tab) 60 mg PO DAILY [facility] Stop: 01/19/19 10:01 Last Admin: 01/18/19 10:42 Dose: 60 mg Prednisone (Prednisone Tab) 20 mg PO DAILY [facility] Prednisone (Prednisone Tab) 10 mg PO DAILY [facility] Promethazine HCl (Phenergan Syrup) 12.5 mg PO Q6 PRN PRN Reason: Cough Last Admin: 01/18/19 10:44 Dose: 12.5 mg Tamsulosin HCl (Flomax) 0.4 mg PO DAILY [facility] Last Admin: 01/18/19 12:38 Dose: 0.4 mg Thiamine HCl (Vitamin B1 Tab) 100 mg PO DAILY [facility] Last Admin: 01/18/19 10:42 Dose: 100 mg Physical Exam - Constitutional Additional comments: sedated - Head Exam Head Exam: NORMAL INSPECTION - Eye Exam Eye Exam: Normal appearance - ENT Exam ENT Exam: Mucous Membranes Moist - Neck Exam Neck exam: Positive for: Normal Inspection - Respiratory Exam Respiratory Exam: Decreased Breath Sounds - Cardiovascular Exam Cardiovascular Exam: REGULAR RHYTHM - GI/Abdominal Exam GI & Abdominal Exam: Normal Bowel Sounds - Rectal Exam Rectal Exam: absent: Deferred - Extremities Exam Extremities exam: Positive for: normal inspection - Back Exam Back exam: NORMAL INSPECTION - Neurological Exam Neurological exam: Alert, Oriented x3 - Psychiatric Exam Psychiatric exam: Normal Affect - Skin Skin Exam: Normal Color Results - Vital Signs Recent Vital Signs: Last Vital Signs Temp 97.3 F L 01/18/19 16:00 Pulse 96 H 01/18/19 16:08 Resp 20 01/18/19 16:00 BP 145/79 01/18/19 16:00 Pulse Ox 99 01/18/19 16:00 - Labs Result Diagrams: 01/18/19 09:08 01/18/19 09:08 Labs: Laboratory Results - last 24 hr 01/18/19 01/18/19 09:08 09:08 WBC 7.3 RBC 3.50 L Hgb 9.8 L Hct 30.4 L MCV 87.0 MCH 28.1 MCHC 32.3 L RDW 20.6 H Plt Count 129 L MPV 8.3 Neut % (Auto) 86.1 H Lymph % (Auto) 10.2 L [place] % (Auto) 3.3 Eos % (Auto) 0.1 Baso % (Auto) 0.3 Neut # (Auto) 6.3 Lymph # (Auto) 0.7 L [place] # (Auto) 0.2 Eos # (Auto) 0.0 Baso # (Auto) 0.0 Sodium 134 Potassium 3.5 L Chloride 86 L Carbon Dioxide 43 H* Anion Gap 9 L BUN 15 Creatinine 0.6 L Est GFR ( Amer) > 60 Est GFR (Non-Af Amer) > 60 Random Glucose 105 Calcium 8.5 L Phosphorus 3.2 Magnesium 1.8 Total Bilirubin 0.3 AST 38 ALT 53 Alkaline Phosphatase 70 Total Protein 5.7 L Albumin 3.2 L Globulin 2.6 Albumin/Globulin Ratio 1.2 - EKG Data EKG Interpreted by: Myself Assessment & Plan (1) PAF (paroxysmal atrial fibrillation) Assessment and Plan: patient has history of ETOH abuse, and harrison has PAF due to that. LV function is normal. Patient is at high risk for bleeding and therefore I would not recommend anticoagulation at this time. Status: Acute (2) Hypertension Assessment and Plan: blood pressure control Status: Acute
[2019-01-19] MEDS: Albuterol-Ipratrop 3 mg / 0.5 (3 ml) UD INH SCH ×6 (00:16→19:17)
[2019-01-19] MEDS: Piperacill/Tazo 3.375gm in Dex 3.375 GM/50 ML BAG IVPB SCH (05:16)
[2019-01-19 07:28] LABS: BASO % 0.5 % (0.0-2.0); EOS % 0.2 % (0.0-4.0); HEMOGLOBIN 8.5 g/dL (12.0-18.0); LYMPH # 0.7 K/uL (1.0-4.3); LYMPH % 14.6 % (20.0-40.0); MEAN CELL VOLUME 86.2 fL (80.0-94.0); MEAN CORPUSCULAR HEMOGLOBIN 28.2 pg (27.0-31.0); MEAN CORPUSCULAR HGB CONC 32.7 g/dL (33.0-37.0); MEAN PLATELET VOLUME 8.4 fL (7.2-11.7); MONO # 0.2 K/uL (0.0-0.8); MONO % 5.1 % (0.0-10.0); NEUT # 3.8 K/uL (1.8-7.0); NEUT % 79.6 % (50.0-75.0); RBC 3.01 Mil/uL (4.40-5.90); RED CELL DISTRIBUTION WIDTH 20.8 % (11.5-14.5); WHITE BLOOD COUNT 4.7 K/uL (4.8-10.8)
[2019-01-19 08:11] LABS: ALB/GLOB RATIO 1.2 (1.0-2.1); ALBUMIN 2.9 g/dL (3.5-5.0); ALT/SGPT 49 U/L (21-72); AST/SGOT 27 U/L (17-59); BLOOD UREA NITROGEN 20 mg/dL (9-20); CALCIUM 8.3 mg/dl (8.6-10.4); GFR NON-AFRICAN AMERICAN > 60
--- NOTE | 2019-01-19 08:11 | CP.PCM.PN ---
Subjective - Date & Time of Evaluation Date of Evaluation: 01/19/19 Time of Evaluation: 08:00 - Subjective Subjective: Medicine Progress Note for Dr. Gonzalez's Service: Patient seen and examined at bedside. Patient states he does feel slightly better but continues to use the Bipap. Patient denies any chest pain, fevers, chills, nausea or vomiting. Objective - Vital Signs/Intake and Output Vital Signs (last 24 hours): Temp Pulse Resp BP Pulse Ox 98.0 F 76 20 148/82 98 01/19/19 00:00 01/19/19 04:59 01/19/19 00:00 01/19/19 00:00 01/19/19 00:00 Intake and Output: 01/19/19 01/19/19 06:59 18:59 Output Total 250 Balance -250 - Medications Medications: Current Medications Albuterol/Ipratropium (Duoneb 3 Mg/0.5 Mg (3 Ml) Ud) 3 ml INH RQ4 [facility] Last Admin: 01/19/19 04:59 Dose: 3 ml Budesonide (Pulmicort Respules) 0.5 mg INH RQ12 [facility] Last Admin: 01/18/19 19:44 Dose: 0.5 mg Diltiazem HCl (Cardizem) 30 mg PO QID [facility] Last Admin: 01/18/19 21:34 Dose: 30 mg Enoxaparin Sodium (Lovenox) 40 mg SC DAILY [facility] Last Admin: 01/18/19 10:43 Dose: 40 mg Escitalopram Oxalate (Lexapro) 10 mg PO DAILY [facility] Last Admin: 01/18/19 10:42 Dose: 10 mg Folic Acid (Folic Acid) 1 mg PO DAILY [facility] Last Admin: 01/18/19 10:42 Dose: 1 mg Gabapentin (Neurontin) 100 mg PO DAILY [facility] Last Admin: 01/18/19 10:43 Dose: 100 mg Hydroxyzine HCl (Atarax) 25 mg PO Q6H PRN PRN Reason: severe anxiety Piperacillin Sod/Tazobactam Sod (Zosyn 3.375 Gm Iv Premix) 3.375 gm in 50 mls @ 100 mls/hr IVPB Q6H [facility]; Protocol Last Admin: 01/19/19 05:16 Dose: 100 mls/hr Magnesium Oxide (Mag-Ox) 400 mg PO BID [facility] Stop: 01/19/19 10:01 Last Admin: 01/18/19 17:15 Dose: 400 mg Multivitamins (Hexavitamin) 1 tab PO DAILY [facility] Last Admin: 01/18/19 10:43 Dose: 1 tab Nicotine (Nicoderm Cq) 1 patch TD DAILY [facility] Last Admin: 01/18/19 10:43 Dose: 1 patch Pantoprazole Sodium (Protonix Ec Tab) 40 mg PO DAILY [facility] Last Admin: 01/18/19 12:47 Dose: 40 mg Potassium Chloride (K-Dur 20 Meq Er Tab) 20 meq PO DAILY [facility] Stop: 01/19/19 14:01 Last Admin: 01/18/19 10:42 Dose: 20 meq Prednisone (Prednisone Tab) 40 mg PO DAILY [facility] Stop: 01/22/19 10:01 Prednisone (Prednisone Tab) 60 mg PO DAILY [facility] Stop: 01/19/19 10:01 Last Admin: 01/18/19 10:42 Dose: 60 mg Prednisone (Prednisone Tab) 20 mg PO DAILY [facility] Prednisone (Prednisone Tab) 10 mg PO DAILY [facility] Promethazine HCl (Phenergan Syrup) 12.5 mg PO Q6 PRN PRN Reason: Cough Last Admin: 01/18/19 10:44 Dose: 12.5 mg Tamsulosin HCl (Flomax) 0.4 mg PO DAILY [facility] Last Admin: 01/18/19 12:38 Dose: 0.4 mg Thiamine HCl (Vitamin B1 Tab) 100 mg PO DAILY [facility] Last Admin: 01/18/19 10:42 Dose: 100 mg - Labs Labs: 01/19/19 07:11 01/18/19 09:08 PT 10.3 SECONDS (9.7-12.2) 01/11/19 14:06 INR 0.9 01/11/19 14:06 APTT 31 SECONDS (21-34) 01/11/19 14:06 - Constitutional Appears: Older Than Stated Age, Chronically Ill - Head Exam Head Exam: ATRAUMATIC, NORMAL INSPECTION - Eye Exam Eye Exam: EOMI, Normal appearance - ENT Exam ENT Exam: Mucous Membranes Moist - Respiratory Exam Respiratory Exam: Wheezes. absent: Respiratory Distress - Cardiovascular Exam Cardiovascular Exam: REGULAR RHYTHM, +S1, +S2 - GI/Abdominal Exam GI & Abdominal Exam: Soft, Normal Bowel Sounds. absent: Tenderness - Extremities Exam Extremities Exam: Normal Inspection - Neurological Exam Neurological Exam: Alert, Awake, Oriented x3 - Psychiatric Exam Psychiatric exam: Normal Affect - Skin Skin Exam: Normal Color Assessment and Plan - Assessment and Plan (Free Text) Assessment: 58 year old male with a past medical history of heroin abuse, copd, and polysubstance abuse presents for hypothermia. COPD Exacerbation - BOOK PACKER x2 was called on 01/13/19 for respiratory distress. At that time patient was transferred to ICU for closer observation, placed on bipap and given duoneb and racemic epinephrine. Patient has been has been transferred out of ICU and currently on tele 01/15/19. - Patient is currently on BiPap - f/u repeat Chest xray 01/19/19 - Medications: * Duonebs q4h * Pulmicort 0.5mg INH RQ12 * Solu-Medrol 40mg IV q6h (stop 01/16/19) * Prednisone 60mg po daily for 3 days --> Prednisone 40mg po daily for 3 days --> Prednisone 20mg po daily for 3 days --> Prednisone 10mg po daily for 3 days Anemia - Hemoglobin 12---> 8.3 - f/u Stool occult blood - Type and Screen - Will monitor with serial CBC's Polysubstance abuse - Psych Consult: Dr. Heredia --> help appreciated - Alcohol level on admission (01/11/19): 216; positive for benzodiazepines - Medications: * Multivitamin po daily * Folic acid 1mg PO DAILY [facility] * Thiamine 100mg PO DAILY [facility] * Nicotine Patch TD New Onset Atrial fibrillation - Likely 2/2 to etoh abuse. Patient has no history of atrial fibrillation in the past - Due to patient polysubstance abuse, and withdrawal symptoms patient is a high fall risk * anticoagulation not recommended currently as patient a fall risk - Medications: * Cardizem 30mg po qid Leukocytosis - Resolved - WBC: 16.9 --->11.2 - Likely secondary to steroids - Blood cultures and Urine cultures are negative - Chest xray (01/13/18): No focal consolidation - Medications: * Zosyn 3.375mg IVPB Q6 (discontinued 01/19/19) Elevated Liver Enzymes - Normalized, was likely secondary to alcohol abuse - continue to monitor BPH - Flomax 0.4 mg PO daily Depression - Lexapro 20mg po daily Prophylaxis - GI: Protonix 40mg PO daily - DVT: Lovenox 40mg SC daily - f/u with Physical Therapy Case discussed with and patient seen with Dr. Lisa Del Valle PGY-2
[2019-01-19] MEDS: Budesonide 0.5 mg/2 ml Inhal Susp UD INH SCH ×2 (08:50→19:18)
[2019-01-19] MEDS: Multiple Vitamins Tab PO SCH (09:38)
[2019-01-19] MEDS: Enoxaparin 40 mg Syringe SC SCH (09:38)
[2019-01-19] MEDS: Magnesium Oxide 400 mg Tab UD PO SCH (09:38)
[2019-01-19] MEDS: Pantoprazole 40 mg EC Tab PO SCH (09:39)
[2019-01-19] MEDS: Potassium Chloride 20 mEq ER Tab PO SCH (09:40)
[2019-01-19] MEDS: Promethazine 12.5 mg/10 ml Syrup PO PRN ×2 (09:41→22:24)
--- NOTE | 2019-01-19 12:21 | RAD ---
Date of service: 01/19/2019 HISTORY: wheezing; COPD COMPARISON: 01/13/2019. FINDINGS: LUNGS: The lungs are hyperinflated and there is peribronchial thickening with chronic changes in both lungs. There is patchy airspace disease in the right lower lobe and left lateral lung base. PLEURA: No pleural effusions or pneumothorax. CARDIOVASCULAR: The heart is normal in size. No aortic atherosclerotic calcifications present. OSSEOUS STRUCTURES: Within normal limits for the patient's age. VISUALIZED UPPER ABDOMEN: Normal. OTHER FINDINGS: None. IMPRESSION: COPD. Patchy airspace disease in the right lower lobe and left lateral lung base could represent subsegmental atelectasis or developing pneumonia. Follow-up is advised.
[2019-01-20] MEDS: Albuterol-Ipratrop 3 mg / 0.5 (3 ml) UD INH SCH ×6 (00:07→19:20)
[2019-01-20] MEDS: Budesonide 0.5 mg/2 ml Inhal Susp UD INH SCH ×2 (07:40→19:20)
[2019-01-20 08:43] LABS: BASO % 0.1 % (0.0-2.0); EOS % 0.4 % (0.0-4.0); HEMOGLOBIN 8.5 g/dL (12.0-18.0); LYMPH # 1.1 K/uL (1.0-4.3); MEAN CELL VOLUME 86.3 fL (80.0-94.0); MEAN CORPUSCULAR HEMOGLOBIN 27.9 pg (27.0-31.0); MEAN CORPUSCULAR HGB CONC 32.3 g/dL (33.0-37.0); MEAN PLATELET VOLUME 8.5 fL (7.2-11.7); MONO # 0.2 K/uL (0.0-0.8); MONO % 4.9 % (0.0-10.0); NEUT # 3.6 K/uL (1.8-7.0); NEUT % 72.6 % (50.0-75.0); RBC 3.03 Mil/uL (4.40-5.90); RED CELL DISTRIBUTION WIDTH 20.4 % (11.5-14.5)
[2019-01-20 09:06] LABS: ALB/GLOB RATIO 1.2 (1.0-2.1); ALBUMIN 2.8 g/dL (3.5-5.0); ALT/SGPT 45 U/L (21-72); AST/SGOT 22 U/L (17-59); BLOOD UREA NITROGEN 18 mg/dL (9-20); CALCIUM 8.2 mg/dl (8.6-10.4); GFR NON-AFRICAN AMERICAN > 60
[2019-01-20] MEDS: Enoxaparin 40 mg Syringe SC SCH (09:30)
[2019-01-20] MEDS: Promethazine 12.5 mg/10 ml Syrup PO PRN (09:30)
[2019-01-20] MEDS: Pantoprazole 40 mg EC Tab PO SCH (09:30)
[2019-01-20] MEDS: Multiple Vitamins Tab PO SCH (09:31)
--- NOTE | 2019-01-20 09:36 | CP.PCM.PN ---
Subjective - Date & Time of Evaluation Date of Evaluation: 01/20/19 Time of Evaluation: 08:00 - Subjective Subjective: Medicine Progress Note for Dr. Gonzalez's Service: Patient seen and examined at bedside. Patient states he does feel slightly better but continues to use the Bipap. Patient is tolerating diet well. Patient denies any chest pain, fevers, chills, nausea or vomiting. Objective - Vital Signs/Intake and Output Vital Signs (last 24 hours): Temp Pulse Resp BP Pulse Ox 97.7 F 69 18 164/88 H 100 01/20/19 07:12 01/20/19 08:34 01/20/19 07:12 01/20/19 07:12 01/20/19 07:12 Intake and Output: 01/20/19 01/20/19 06:59 18:59 Intake Total 600 Output Total 800 Balance -200 - Medications Medications: Current Medications Albuterol/Ipratropium (Duoneb 3 Mg/0.5 Mg (3 Ml) Ud) 3 ml INH RQ4 [facility] Last Admin: 01/20/19 07:45 Dose: 3 ml Budesonide (Pulmicort Respules) 0.5 mg INH RQ12 [facility] Last Admin: 01/20/19 07:40 Dose: 0.5 mg Diltiazem HCl (Cardizem) 30 mg PO QID [facility] Last Admin: 01/20/19 09:31 Dose: 30 mg Enoxaparin Sodium (Lovenox) 40 mg SC DAILY [facility] Last Admin: 01/20/19 09:30 Dose: 40 mg Escitalopram Oxalate (Lexapro) 10 mg PO DAILY [facility] Last Admin: 01/20/19 09:30 Dose: 10 mg Folic Acid (Folic Acid) 1 mg PO DAILY [facility] Last Admin: 01/20/19 09:30 Dose: 1 mg Gabapentin (Neurontin) 100 mg PO DAILY [facility] Last Admin: 01/20/19 09:31 Dose: 100 mg Hydroxyzine HCl (Atarax) 25 mg PO Q6H PRN PRN Reason: severe anxiety Multivitamins (Hexavitamin) 1 tab PO DAILY [facility] Last Admin: 01/20/19 09:31 Dose: 1 tab Nicotine (Nicoderm Cq) 1 patch TD DAILY [facility] Last Admin: 01/20/19 09:31 Dose: 1 patch Pantoprazole Sodium (Protonix Ec Tab) 40 mg PO DAILY [facility] Last Admin: 01/20/19 09:30 Dose: 40 mg Prednisone (Prednisone Tab) 40 mg PO DAILY [facility] Stop: 01/22/19 10:01 Last Admin: 01/20/19 09:31 Dose: 40 mg Prednisone (Prednisone Tab) 20 mg PO DAILY [facility] Prednisone (Prednisone Tab) 10 mg PO DAILY [facility] Promethazine HCl (Phenergan Syrup) 12.5 mg PO Q6 PRN PRN Reason: Cough Last Admin: 01/20/19 09:30 Dose: 12.5 mg Tamsulosin HCl (Flomax) 0.4 mg PO DAILY [facility] Last Admin: 01/20/19 09:30 Dose: 0.4 mg Thiamine HCl (Vitamin B1 Tab) 100 mg PO DAILY [facility] Last Admin: 01/20/19 09:30 Dose: 100 mg - Labs Labs: 01/20/19 08:36 01/20/19 08:36 PT 10.3 SECONDS (9.7-12.2) 01/11/19 14:06 INR 0.9 01/11/19 14:06 APTT 31 SECONDS (21-34) 01/11/19 14:06 - Constitutional Appears: No Acute Distress, Chronically Ill - Head Exam Head Exam: ATRAUMATIC, NORMAL INSPECTION - Eye Exam Eye Exam: EOMI, Normal appearance - ENT Exam ENT Exam: Mucous Membranes Moist - Respiratory Exam Respiratory Exam: Wheezes, NORMAL BREATHING PATTERN - Cardiovascular Exam Cardiovascular Exam: REGULAR RHYTHM, +S1, +S2 - GI/Abdominal Exam GI & Abdominal Exam: Soft, Normal Bowel Sounds. absent: Tenderness - Extremities Exam Extremities Exam: Normal Inspection - Neurological Exam Neurological Exam: Alert, Awake, Oriented x3 - Psychiatric Exam Psychiatric exam: Normal Affect - Skin Skin Exam: Normal Color Assessment and Plan - Assessment and Plan (Free Text) Assessment: 58 year old male with a past medical history of heroin abuse, copd, and polysubstance abuse presents for hypothermia. COPD Exacerbation - BABBITTER x2 was called on 01/13/19 for respiratory distress. At that time patient was transferred to ICU for closer observation, placed on bipap and given duoneb and racemic epinephrine. Patient has been has been transferred out of ICU and currently on tele 01/15/19. - Patient is currently on BiPap - Repeat Chest xray 01/19/19: COPD; possible pneumonia - Medications: * Duonebs q4h * Pulmicort 0.5mg INH RQ12 * Solu-Medrol 40mg IV q6h (stop 01/16/19) * Prednisone 60mg po daily for 3 days --> Prednisone 40mg po daily for 3 days --> Prednisone 20mg po daily for 3 days --> Prednisone 10mg po daily for 3 days Anemia - Hemoglobin 12---> 8.3 - f/u Stool occult blood - Type and Screen - Will monitor with serial CBC's Polysubstance abuse - Psych Consult: Dr. Heredia --> help appreciated - Alcohol level on admission (01/11/19): 216; positive for benzodiazepines - Medications: * Multivitamin po daily * Folic acid 1mg PO DAILY [facility] * Thiamine 100mg PO DAILY [facility] * Nicotine Patch TD New Onset Atrial fibrillation - Likely 12/27 to etoh abuse. Patient has no history of atrial fibrillation in the past - Due to patient polysubstance abuse, and withdrawal symptoms patient is a high fall risk * anticoagulation not recommended currently as patient a fall risk - ECHO (01/13/19): EF 59% - Medications: * Cardizem 30mg po qid Leukocytosis - Resolved - WBC: 16.9 --->11.2 --> 5 - Likely secondary to steroids - Blood cultures and Urine cultures are negative - Chest xray (01/13/18): No focal consolidation - Medications: * Zosyn 3.375mg IVPB Q6 (discontinued 01/19/19) Elevated Liver Enzymes - Normalized, was likely secondary to alcohol abuse - continue to monitor BPH - Flomax 0.4 mg PO daily Depression - Lexapro 20mg po daily Prophylaxis - GI: Protonix 40mg PO daily - DVT: Lovenox 40mg SC daily - f/u with Physical Therapy Case discussed with and patient seen with Dr. Lisa Del Valle PGY-2
[2019-01-21] MEDS: Albuterol-Ipratrop 3 mg / 0.5 (3 ml) UD INH SCH ×7 (00:53→23:34)
[2019-01-21] MEDS: Budesonide 0.5 mg/2 ml Inhal Susp UD INH SCH ×2 (07:30→19:26)
--- NOTE | 2019-01-21 07:30 | CP.PCM.PN ---
Subjective - Date & Time of Evaluation Date of Evaluation: 01/21/19 Time of Evaluation: 07:27 - Subjective Subjective: Progress note for Dr. Gonzalez Patient was seen and examined at bedside in no acute distress. Patient states he is wheezing, otherwise has no complaints. He denies chest pain, sob, nausea, vomiting, fevers, headaches, dizziness, abdominal pain, leg pain. Objective - Vital Signs/Intake and Output Vital Signs (last 24 hours): Temp Pulse Resp BP Pulse Ox 98.1 F 75 14 137/77 100 01/20/19 23:25 01/21/19 04:34 01/20/19 23:25 01/20/19 23:25 01/20/19 23:25 Intake and Output: 01/21/19 01/21/19 06:59 18:59 Output Total 250 Balance -250 - Medications Medications: Current Medications Albuterol/Ipratropium (Duoneb 3 Mg/0.5 Mg (3 Ml) Ud) 3 ml INH RQ4 [facility] Last Admin: 01/21/19 04:33 Dose: 3 ml Budesonide (Pulmicort Respules) 0.5 mg INH RQ12 [facility] Last Admin: 01/20/19 19:20 Dose: 0.5 mg Diltiazem HCl (Cardizem) 30 mg PO QID [facility] Last Admin: 01/20/19 21:52 Dose: 30 mg Enoxaparin Sodium (Lovenox) 40 mg SC DAILY [facility] Last Admin: 01/20/19 09:30 Dose: 40 mg Escitalopram Oxalate (Lexapro) 10 mg PO DAILY [facility] Last Admin: 01/20/19 09:30 Dose: 10 mg Folic Acid (Folic Acid) 1 mg PO DAILY [facility] Last Admin: 01/20/19 09:30 Dose: 1 mg Gabapentin (Neurontin) 100 mg PO DAILY [facility] Last Admin: 01/20/19 09:31 Dose: 100 mg Hydroxyzine HCl (Atarax) 25 mg PO Q6H PRN PRN Reason: severe anxiety Multivitamins (Hexavitamin) 1 tab PO DAILY [facility] Last Admin: 01/20/19 09:31 Dose: 1 tab Nicotine (Nicoderm Cq) 1 patch TD DAILY [facility] Last Admin: 01/20/19 09:31 Dose: 1 patch Pantoprazole Sodium (Protonix Ec Tab) 40 mg PO DAILY [facility] Last Admin: 01/20/19 09:30 Dose: 40 mg Prednisone (Prednisone Tab) 40 mg PO DAILY [facility] Stop: 01/22/19 10:01 Last Admin: 01/20/19 09:31 Dose: 40 mg Prednisone (Prednisone Tab) 20 mg PO DAILY [facility] Prednisone (Prednisone Tab) 10 mg PO DAILY [facility] Promethazine HCl (Phenergan Syrup) 12.5 mg PO Q6 PRN PRN Reason: Cough Last Admin: 01/20/19 09:30 Dose: 12.5 mg Tamsulosin HCl (Flomax) 0.4 mg PO DAILY [facility] Last Admin: 01/20/19 09:30 Dose: 0.4 mg Thiamine HCl (Vitamin B1 Tab) 100 mg PO DAILY [facility] Last Admin: 01/20/19 09:30 Dose: 100 mg - Labs Labs: 01/20/19 08:36 01/20/19 08:36 PT 10.3 SECONDS (9.7-12.2) 01/11/19 14:06 INR 0.9 01/11/19 14:06 APTT 31 SECONDS (21-34) 01/11/19 14:06 - Additional Findings Additional findings: - Constitutional Appears: No Acute Distress - Head Exam Head Exam: ATRAUMATIC, NORMAL INSPECTION - Eye Exam Eye Exam: EOMI, Normal appearance - ENT Exam ENT Exam: Mucous Membranes Moist - Respiratory Exam Respiratory Exam: Decreased Breath Sounds, Wheezes. absent: Clear to Ausculation Bilateral - Cardiovascular Exam Cardiovascular Exam: Irregular Rhythm, +S1, +S2 - GI/Abdominal Exam GI & Abdominal Exam: Soft, Normal Bowel Sounds. absent: Distended, Firm, Tenderness - Extremities Exam Extremities Exam: Normal Inspection. absent: Calf Tenderness, Pedal Edema, Tenderness - Neurological Exam Neurological Exam: Alert, Awake, Oriented x3 - Psychiatric Exam Psychiatric exam: Normal Affect, Normal Mood - Skin Skin Exam: Dry, Warm Assessment and Plan - Assessment and Plan (Free Text) Plan: 58 year old male with a past medical history of heroin abuse, copd, and polysubstance abuse presents for hypothermia. COPD Exacerbation - [employer] x2 was called on 01/13/19 for respiratory distress. At that time patient was transferred to ICU for closer observation, placed on bipap and given duoneb and racemic epinephrine. Patient has been has been transferred out of ICU and currently on tele 01/15/19. - Patient is currently on BiPap - Repeat Chest xray 01/19/19: COPD; possible pneumonia - Medications: * Duonebs q4h * Pulmicort 0.5mg INH RQ12 * Solu-Medrol 40mg IV q6h (stop 01/16/19) * Prednisone 60mg po daily for 3 days --> Prednisone 40mg po daily for 3 days --> Prednisone 20mg po daily for 3 days --> Prednisone 10mg po daily for 3 days Anemia - Hemoglobin 12---> 8.3 - f/u Stool occult blood - Type and Screen - Will monitor with serial CBC's Polysubstance abuse - Psych Consult: Dr. Heredia --> help appreciated - Alcohol level on admission (01/11/19): 216; positive for benzodiazepines - Medications: * Multivitamin po daily * Folic acid 1mg PO DAILY FERNANDA * Thiamine 100mg PO DAILY FERNANDA * Nicotine Patch TD * Atarax 25mg PO Q6 prn New Onset Atrial fibrillation - Likely 12/27 to etoh abuse. Patient has no history of atrial fibrillation in the past - Due to patient polysubstance abuse, and withdrawal symptoms patient is a high fall risk * anticoagulation not recommended currently as patient a fall risk - ECHO (01/13/19): EF 59% - Medications: * Cardizem 30mg po qid Leukocytosis - Resolved - WBC: 16.9 --->11.2 --> 5 - Likely secondary to steroids - Blood cultures and Urine cultures are negative - Chest xray (01/13/18): No focal consolidation - Medications: * Zosyn 3.375mg IVPB Q6 (discontinued 01/19/19) Elevated Liver Enzymes - Resolved - Normalized, was likely secondary to alcohol abuse - continue to monitor BPH - Flomax 0.4 mg PO daily Depression - Lexapro 10mg po daily - Psych Consult: Dr. Heredia --> help appreciated Prophylaxis - GI: Protonix 40mg PO daily - DVT: Lovenox 40mg SC daily - Physical Therapy; recommends BLAS - Case management referral for BLAS placement Case discussed with and patient seen with Dr. Lisa Esqueda, PGY2
[2019-01-21] MEDS: Multiple Vitamins Tab PO SCH (09:17)
[2019-01-21] MEDS: Enoxaparin 40 mg Syringe SC SCH (09:17)
[2019-01-21] MEDS: Pantoprazole 40 mg EC Tab PO SCH (09:18)
[2019-01-21] MEDS: Promethazine 12.5 mg/10 ml Syrup PO PRN ×2 (10:06→21:16)
[2019-01-21 11:14] LABS: BASO % 0.1 % (0.0-2.0); EOS % 0.7 % (0.0-4.0); HEMOGLOBIN 9.7 g/dL (12.0-18.0); LYMPH # 1.4 K/uL (1.0-4.3); LYMPH % 26.9 % (20.0-40.0); MEAN CELL VOLUME 87.1 fL (80.0-94.0); MEAN CORPUSCULAR HEMOGLOBIN 28.1 pg (27.0-31.0); MEAN CORPUSCULAR HGB CONC 32.3 g/dL (33.0-37.0); MEAN PLATELET VOLUME 8.3 fL (7.2-11.7); MONO # 0.3 K/uL (0.0-0.8); MONO % 5.3 % (0.0-10.0); NEUT # 3.5 K/uL (1.8-7.0); RBC 3.45 Mil/uL (4.40-5.90); RED CELL DISTRIBUTION WIDTH 19.9 % (11.5-14.5); WHITE BLOOD COUNT 5.2 K/uL (4.8-10.8)
[2019-01-21 11:53] LABS: ALB/GLOB RATIO 1.3 (1.0-2.1); ALBUMIN 3.1 g/dL (3.5-5.0); ALT/SGPT 42 U/L (21-72); AST/SGOT 24 U/L (17-59); BLOOD UREA NITROGEN 19 mg/dL (9-20); CALCIUM 8.4 mg/dl (8.6-10.4); GFR NON-AFRICAN AMERICAN > 60
[2019-01-22] MEDS: Albuterol-Ipratrop 3 mg / 0.5 (3 ml) UD INH SCH ×5 (03:14→23:36)
[2019-01-22] MEDS: Budesonide 0.5 mg/2 ml Inhal Susp UD INH SCH ×2 (07:25→19:45)
--- NOTE | 2019-01-22 07:47 | CP.PCM.PN ---
Subjective - Date & Time of Evaluation Date of Evaluation: 01/22/19 Time of Evaluation: 07:44 - Subjective Subjective: Progress note for Dr. Gonzalez Patient was seen and examined at bedside in no acute distress. Patient states he is still wheezing, otherwise has no complaints. He denies chest pain, nausea, vomiting, fevers, headaches, dizziness, abdominal pain, leg pain. Objective - Vital Signs/Intake and Output Vital Signs (last 24 hours): Temp Pulse Resp BP Pulse Ox 97.8 F 67 12 150/76 98 01/22/19 06:36 01/22/19 06:36 01/22/19 06:36 01/22/19 06:36 01/22/19 06:36 Intake and Output: 01/22/19 01/22/19 06:59 18:59 Intake Total 400 Output Total 753 Balance -353 - Medications Medications: Current Medications Albuterol/Ipratropium (Duoneb 3 Mg/0.5 Mg (3 Ml) Ud) 3 ml INH RQ4 [facility] Last Admin: 01/22/19 03:14 Dose: 3 ml Budesonide (Pulmicort Respules) 0.5 mg INH RQ12 [facility] Last Admin: 01/21/19 19:26 Dose: 0.5 mg Diltiazem HCl (Cardizem) 30 mg PO QID [facility] Last Admin: 01/21/19 21:15 Dose: 30 mg Enoxaparin Sodium (Lovenox) 40 mg SC DAILY [facility] Last Admin: 01/21/19 09:17 Dose: 40 mg Escitalopram Oxalate (Lexapro) 10 mg PO DAILY [facility] Last Admin: 01/21/19 09:17 Dose: 10 mg Folic Acid (Folic Acid) 1 mg PO DAILY [facility] Last Admin: 01/21/19 10:04 Dose: 1 mg Gabapentin (Neurontin) 100 mg PO DAILY [facility] Last Admin: 01/21/19 09:17 Dose: 100 mg Hydroxyzine HCl (Atarax) 25 mg PO Q6H PRN PRN Reason: severe anxiety Multivitamins (Hexavitamin) 1 tab PO DAILY [facility] Last Admin: 01/21/19 09:17 Dose: 1 tab Nicotine (Nicoderm Cq) 1 patch TD DAILY [facility] Last Admin: 01/21/19 09:18 Dose: 1 patch Pantoprazole Sodium (Protonix Ec Tab) 40 mg PO DAILY [facility] Last Admin: 01/21/19 09:18 Dose: 40 mg Prednisone (Prednisone Tab) 40 mg PO DAILY [facility] Stop: 01/22/19 10:01 Last Admin: 01/21/19 09:17 Dose: 40 mg Prednisone (Prednisone Tab) 20 mg PO DAILY [facility] Prednisone (Prednisone Tab) 10 mg PO DAILY [facility] Promethazine HCl (Phenergan Syrup) 12.5 mg PO Q6 PRN PRN Reason: Cough Last Admin: 01/21/19 21:16 Dose: 12.5 mg Tamsulosin HCl (Flomax) 0.4 mg PO DAILY [facility] Last Admin: 01/21/19 09:17 Dose: 0.4 mg Thiamine HCl (Vitamin B1 Tab) 100 mg PO DAILY [facility] Last Admin: 01/21/19 09:17 Dose: 100 mg - Labs Labs: 01/21/19 11:07 01/21/19 11:07 PT 10.3 SECONDS (9.7-12.2) 01/11/19 14:06 INR 0.9 01/11/19 14:06 APTT 31 SECONDS (21-34) 01/11/19 14:06 - Additional Findings Additional findings: - Constitutional Appears: No Acute Distress - Head Exam Head Exam: ATRAUMATIC, NORMAL INSPECTION - Eye Exam Eye Exam: EOMI, Normal appearance - ENT Exam ENT Exam: Mucous Membranes Moist - Respiratory Exam Respiratory Exam: Decreased Breath Sounds, Wheezes. absent: Clear to Ausculation Bilateral - Cardiovascular Exam Cardiovascular Exam: Irregular Rhythm, +S1, +S2 - GI/Abdominal Exam GI & Abdominal Exam: Soft, Normal Bowel Sounds. absent: Distended, Firm, Tenderness - Extremities Exam Extremities Exam: Normal Inspection. absent: Calf Tenderness, Pedal Edema, Tenderness - Neurological Exam Neurological Exam: Alert, Awake, Oriented x3 - Psychiatric Exam Psychiatric exam: Normal Affect, Normal Mood - Skin Skin Exam: Dry, Warm Assessment and Plan - Assessment and Plan (Free Text) Plan: 58 year old male with a past medical history of heroin abuse, copd, and polysubstance abuse presents for hypothermia. COPD Exacerbation - [employer] x2 was called on 01/13/19 for respiratory distress. At that time patient was transferred to ICU for closer observation, placed on bipap and given duoneb and racemic epinephrine. Patient has been has been transferred out of ICU and currently on tele 01/15/19. - Patient is currently on BiPap, encouraged to use NC - Repeat Chest xray 01/19/19: COPD; possible pneumonia - Medications: * Duonebs q4h * Pulmicort 0.5mg INH RQ12 * Solu-Medrol 40mg IV q6h (stop 01/16/19) * Prednisone 60mg po daily for 3 days --> Prednisone 40mg po daily for 3 days --> Prednisone 20mg po daily for 3 days --> Prednisone 10mg po daily for 3 days Anemia - Hemoglobin 12---> 8.3 - f/u Stool occult blood - Type and Screen - Will monitor with serial CBC's Polysubstance abuse - Psych Consult: Dr. Heredia --> help appreciated - Alcohol level on admission (01/11/19): 216; positive for benzodiazepines - Medications: * Multivitamin po daily * Folic acid 1mg PO DAILY FERNANDA * Thiamine 100mg PO DAILY FERNANDA * Nicotine Patch TD * Atarax 25mg PO Q6 prn New Onset Atrial fibrillation - Likely / to etoh abuse. Patient has no history of atrial fibrillation in the past - Due to patient polysubstance abuse, and withdrawal symptoms patient is a high fall risk * anticoagulation not recommended currently as patient a fall risk - ECHO (01/13/19): EF 59% - Medications: * Cardizem 30mg po qid Leukocytosis - Resolved - WBC: 16.9 --->11.2 --> 5 - Likely secondary to steroids - Blood cultures and Urine cultures are negative - Chest xray (01/13/18): No focal consolidation - Medications: * Zosyn 3.375mg IVPB Q6 (discontinued 01/19/19) Elevated Liver Enzymes - Resolved - Normalized, was likely secondary to alcohol abuse - continue to monitor BPH - Flomax 0.4 mg PO daily Depression - Lexapro 10mg po daily - Psych Consult: Dr. Heredia --> help appreciated Prophylaxis - GI: Protonix 40mg PO daily - DVT: Lovenox 40mg SC daily - Physical Therapy; recommends BLAS - Case management referral for BLAS placement Case discussed with and patient seen with Dr. Lisa Esqueda, PGY2
[2019-01-22 08:48] LABS: BASO % 0.1 % (0.0-2.0); EOS % 0.6 % (0.0-4.0); LYMPH # 1.2 K/uL (1.0-4.3); LYMPH % 24.2 % (20.0-40.0); MEAN CELL VOLUME 85.9 fL (80.0-94.0); MEAN CORPUSCULAR HGB CONC 32.6 g/dL (33.0-37.0); MEAN PLATELET VOLUME 8.1 fL (7.2-11.7); MONO # 0.3 K/uL (0.0-0.8); MONO % 5.3 % (0.0-10.0); NEUT # 3.5 K/uL (1.8-7.0); NEUT % 69.8 % (50.0-75.0); NRBC % 0.1 % (0.0-2.0); RBC 3.2 Mil/uL (4.40-5.90); RED CELL DISTRIBUTION WIDTH 19.8 % (11.5-14.5)
[2019-01-22 09:05] LABS: ALB/GLOB RATIO 1.3 (1.0-2.1); ALT/SGPT 40 U/L (21-72); AST/SGOT 23 U/L (17-59); BLOOD UREA NITROGEN 17 mg/dL (9-20); CALCIUM 8.3 mg/dl (8.6-10.4); GFR NON-AFRICAN AMERICAN > 60
[2019-01-22] MEDS: Pantoprazole 40 mg EC Tab PO SCH (10:26)
[2019-01-22] MEDS: Multiple Vitamins Tab PO SCH (10:26)
[2019-01-22] MEDS: Enoxaparin 40 mg Syringe SC SCH (10:27)
[2019-01-22] MEDS: Promethazine 12.5 mg/10 ml Syrup PO PRN (22:02)
[2019-01-23] MEDS: Albuterol-Ipratrop 3 mg / 0.5 (3 ml) UD INH SCH ×6 (03:13→23:50)
[2019-01-23] MEDS: Budesonide 0.5 mg/2 ml Inhal Susp UD INH SCH ×2 (07:30→20:45)
--- NOTE | 2019-01-23 07:49 | CP.PCM.PN ---
Subjective - Date & Time of Evaluation Date of Evaluation: 01/23/19 Time of Evaluation: 07:47 - Subjective Subjective: Progress note for Dr. Gonzalez Patient was seen and examined at bedside in no acute distress. Patient states he is still wheezing, otherwise has no complaints. He denies chest pain, nausea, vomiting, fevers, headaches, dizziness, abdominal pain, leg pain. Objective - Vital Signs/Intake and Output Vital Signs (last 24 hours): Temp Pulse Resp BP Pulse Ox 97.4 F L 79 20 148/70 100 01/23/19 00:00 01/23/19 05:07 01/23/19 00:00 01/23/19 00:00 01/23/19 00:00 - Medications Medications: Current Medications Albuterol/Ipratropium (Duoneb 3 Mg/0.5 Mg (3 Ml) Ud) 3 ml INH RQ4 [facility] Last Admin: 01/23/19 03:13 Dose: 3 ml Budesonide (Pulmicort Respules) 0.5 mg INH RQ12 [facility] Last Admin: 01/22/19 19:45 Dose: 0.5 mg Diltiazem HCl (Cardizem) 30 mg PO QID [facility] Last Admin: 01/22/19 22:00 Dose: 30 mg Enoxaparin Sodium (Lovenox) 40 mg SC DAILY [facility] Last Admin: 01/22/19 10:27 Dose: 40 mg Escitalopram Oxalate (Lexapro) 10 mg PO DAILY [facility] Last Admin: 01/22/19 10:25 Dose: 10 mg Folic Acid (Folic Acid) 1 mg PO DAILY [facility] Last Admin: 01/22/19 10:00 Dose: 1 mg Gabapentin (Neurontin) 100 mg PO DAILY [facility] Last Admin: 01/22/19 10:26 Dose: 100 mg Hydroxyzine HCl (Atarax) 25 mg PO Q6H PRN PRN Reason: severe anxiety Multivitamins (Hexavitamin) 1 tab PO DAILY [facility] Last Admin: 01/22/19 10:26 Dose: 1 tab Nicotine (Nicoderm Cq) 1 patch TD DAILY [facility] Last Admin: 01/22/19 10:26 Dose: 1 patch Pantoprazole Sodium (Protonix Ec Tab) 40 mg PO DAILY [facility] Last Admin: 01/22/19 10:26 Dose: 40 mg Prednisone (Prednisone Tab) 20 mg PO DAILY [facility] Prednisone (Prednisone Tab) 10 mg PO DAILY [facility] Promethazine HCl (Phenergan Syrup) 12.5 mg PO Q6 PRN PRN Reason: Cough Last Admin: 01/22/19 22:02 Dose: 12.5 mg Tamsulosin HCl (Flomax) 0.4 mg PO DAILY [facility] Last Admin: 01/22/19 10:25 Dose: 0.4 mg Thiamine HCl (Vitamin B1 Tab) 100 mg PO DAILY [facility] Last Admin: 01/22/19 10:26 Dose: 100 mg - Labs Labs: 01/22/19 08:29 01/22/19 08:29 PT 10.3 SECONDS (9.7-12.2) 01/11/19 14:06 INR 0.9 01/11/19 14:06 APTT 31 SECONDS (21-34) 01/11/19 14:06 - Additional Findings Additional findings: - Constitutional Appears: No Acute Distress - Head Exam Head Exam: ATRAUMATIC, NORMAL INSPECTION - Eye Exam Eye Exam: EOMI, Normal appearance - ENT Exam ENT Exam: Mucous Membranes Moist - Respiratory Exam Respiratory Exam: Decreased Breath Sounds, Wheezes. absent: Clear to Ausculation Bilateral - Cardiovascular Exam Cardiovascular Exam: Irregular Rhythm, +S1, +S2 - GI/Abdominal Exam GI & Abdominal Exam: Soft, Normal Bowel Sounds. absent: Distended, Firm, Tenderness - Extremities Exam Extremities Exam: Normal Inspection. absent: Calf Tenderness, Pedal Edema, Tenderness - Neurological Exam Neurological Exam: Alert, Awake, Oriented x3 - Psychiatric Exam Psychiatric exam: Normal Affect, Normal Mood - Skin Skin Exam: Dry, Warm Assessment and Plan - Assessment and Plan (Free Text) Plan: 58 year old male with a past medical history of heroin abuse, copd, and polysubstance abuse presents for hypothermia. COPD Exacerbation - [employer] x2 was called on 01/13/19 for respiratory distress. At that time patient was transferred to ICU for closer observation, placed on bipap and given duoneb and racemic epinephrine. Patient has been has been transferred out of ICU and currently on tele 01/15/19. - Patient is currently on BiPap, encouraged to use NC - Repeat Chest xray 01/19/19: COPD; possible pneumonia - Medications: * Duonebs q4h * Pulmicort 0.5mg INH RQ12 * Solu-Medrol 40mg IV q6h (stop 01/16/19) * Prednisone 60mg po daily for 3 days --> Prednisone 40mg po daily for 3 days --> Prednisone 20mg po daily for 3 days --> Prednisone 10mg po daily for 3 days Anemia - Hemoglobin 12---> 8.3 - f/u Stool occult blood - Type and Screen - Will monitor with serial CBC's Polysubstance abuse - Psych Consult: Dr. Heredia --> help appreciated - Alcohol level on admission (01/11/19): 216; positive for benzodiazepines - Medications: * Multivitamin po daily * Folic acid 1mg PO DAILY FERNANDA * Thiamine 100mg PO DAILY FERNANDA * Nicotine Patch TD * Atarax 25mg PO Q6 prn New Onset Atrial fibrillation - Likely 12/27 to etoh abuse. Patient has no history of atrial fibrillation in the past - Due to patient polysubstance abuse, and withdrawal symptoms patient is a high fall risk * anticoagulation not recommended currently as patient a fall risk - ECHO (01/13/19): EF 59% - Medications: * Cardizem 30mg po qid Leukocytosis - Resolved - WBC: 16.9 --->11.2 --> 5 - Likely secondary to steroids - Blood cultures and Urine cultures are negative - Chest xray (01/13/18): No focal consolidation - Medications: * Zosyn 3.375mg IVPB Q6 (discontinued 01/19/19) Elevated Liver Enzymes - Resolved - Normalized, was likely secondary to alcohol abuse - continue to monitor BPH - Flomax 0.4 mg PO daily Depression - Lexapro 10mg po daily - Psych Consult: Dr. Heredia --> help appreciated Prophylaxis - GI: Protonix 40mg PO daily - DVT: Lovenox 40mg SC daily - Physical Therapy; recommends BLAS - Case management referral for BLAS placement, pending approval. - POLST signed- DNR/DNI (Palliative care consulted, help appreciated) Case discussed with and patient seen with Dr. Lisa Esqueda, PGY2
[2019-01-23 08:06] LABS: BASO % 0.2 % (0.0-2.0); EOS % 0.8 % (0.0-4.0); HEMOGLOBIN 9.2 g/dL (12.0-18.0); LYMPH # 1.2 K/uL (1.0-4.3); LYMPH % 22.7 % (20.0-40.0); MEAN CELL VOLUME 86.4 fL (80.0-94.0); MEAN CORPUSCULAR HGB CONC 32.4 g/dL (33.0-37.0); MEAN PLATELET VOLUME 7.8 fL (7.2-11.7); MONO # 0.3 K/uL (0.0-0.8); MONO % 6.3 % (0.0-10.0); NEUT # 3.7 K/uL (1.8-7.0); NRBC % 0.1 % (0.0-2.0); RBC 3.29 Mil/uL (4.40-5.90); RED CELL DISTRIBUTION WIDTH 20.1 % (11.5-14.5); WHITE BLOOD COUNT 5.3 K/uL (4.8-10.8)
[2019-01-23 08:18] LABS: ALB/GLOB RATIO 1.3 (1.0-2.1); ALBUMIN 3.2 g/dL (3.5-5.0); ALT/SGPT 34 U/L (21-72); AST/SGOT 32 U/L (17-59); BLOOD UREA NITROGEN 16 mg/dL (9-20); CALCIUM 8.4 mg/dl (8.6-10.4); GFR NON-AFRICAN AMERICAN > 60
[2019-01-23] MEDS: Multiple Vitamins Tab PO SCH (10:09)
[2019-01-23] MEDS: Pantoprazole 40 mg EC Tab PO SCH (10:11)
[2019-01-23] MEDS: Enoxaparin 40 mg Syringe SC SCH (10:12)
--- NOTE | 2019-01-23 10:44 | CP.PCM.CON ---
History of Present Illness - History of Present Illness History of Present Illness: Palliative Consult requested by Dr. Vee for Goals of Care discussion Patient is 58 year old male admitted with acute alcohol intoxication of unknown duration. This is patient's 4th admission within the last month for the same reason. In ED patient admitted to drinking hard liquor. When patient was asked how the ED could help him, he responded "I need to detox". Patient was found hypothermic, tachycardic, in mild SOB. Patient was placed on bare hugger blanket and given iv fluids. Patient was noted with stridor and was treated with nebulizer and steroids. When suctioned through the nose, some bloody discharge was obtained. Patient was diagnosed with lactic acidosis and leukocytosis. Vanco IV and Zosyn IV 1 time dose given. Cardiac consult called for tachycardia. 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 Patient was treated until stable and transferred to ICU for observation. During this hospital stay, patient's condition has improved and he was transferred back to the floor. \\ Palliative consult was called to establish Goals of Care with the patient and to discuss code status. PMH: Asthma, Anxiety, COPD, HTN, Depression, GI Ulcer Social History: Single, Homeless, Adopted as a child, Reports both parents are , has drinking alcohol since the age of 10, Has a monthly income of $900 Family History: Unknown Review of Systems - Review of Systems All systems: reviewed and no additional remarkable complaints except - Constitutional Constitutional: Daytime Sleepiness, Weight Loss, Weakness - EENT Eyes: absent: As Per HPI, Blind Spots, Blurred Vision, Change in Vision, Decreased Night Vision, Diplopia, Discharge, Dry Eye, Exophthalmos, Floaters, Irritation, Itchy Eyes, Loss of Peripheral Vision, Pain, Photophobia, Requires Corrective Lenses, Sees Flashes, Spots in Vision, Tunnel Vision, Other Visual Disturbances, Loss of Vision, Other Ears: absent: As Per HPI, Decreased Hearing, Ear Discharge, Ear Pain, Tinnitus, Abnormal Hearing, Disequilibrium, Dizziness, Other Nose/Mouth/Throat: absent: As Per HPI, Epistaxis, Nasal Congestion, Nasal Discharge, Nasal Obstruction, Nasal Trauma, Nose Pain, Post Nasal Drip, Sinus Pain, Sinus Pressure, Bleeding Gums, Change in Voice, Dental Pain, Dry Mouth, Dysphagia, Halitosis, Hoarsness, Lip Swelling, Mouth Lesions, Mouth Pain, Odynophagia, Sore Throat, Throat Swelling, Tongue Swelling, Facial Pain, Neck Pain, Neck Mass, Other - Cardiovascular Cardiovascular: Dyspnea on Exertion, Irregular Heart Rhythm - Respiratory Respiratory: Dyspnea on Exertion, Stridor, Excessive Mucous Production - Gastrointestinal Gastrointestinal: Diarrhea - Genitourinary Genitourinary: absent: As Per HPI, Change in Urinary Stream, Difficulty Urinating, Dysuria, Flank Pain, Hematuria, Pyuria, Nocturia, Urinary Incontinence, Urinary Frequency, Urinary Hesitance, Urinary Urgency, Voiding Freq/Small Amts, Freq UTI, Hx Renal/Bladder Calculi, Hx /Renal Surgery, Bladder Distension, Other - Musculoskeletal Musculoskeletal: Muscle Weakness, Numbness - Integumentary Integumentary: absent: As Per HPI, Acne, Alopecia, Bleeding Lesions, Change in Hair, Change in Nails, Change in Pigmentation, Changing Lesions, Dry Skin, Erythema, Furuncle, Hirsutism, Lesions, New Lesions, Non-Healing Lesions, Photosensitivity, Pruritus, Rash, Skin Pain, Skin Ulcer, Sores, Striae, Swelling, Unusual Bruising, Wounds, Jaundice, Other - Neurological Neurological: absent: As Per HPI, Abnormal Gait, Abnormal Hearing, Abnormal Movements, Abnormal Speech, Behavioral Changes, Burning Sensations, Confusion, Convulsions, Disequilibrium, Dizziness, Numbness, Focal Weakness, Frequent Falls, Headaches, Lack of Coordination, Loss of Vision, Memory Loss, Paresthesias, Radicular Pain, Restless Legs, Sensory Deficit, Syncope, Tingling, Tremor, Vertigo, Weakness, Other Visual Disturbances, Other - Psychiatric Psychiatric: Anxiety - Endocrine Endocrine: absent: As Per HPI, Change in Body Appearance, Change in Libido, Cold Intolorance, Deepening of Voice, Excessive Sweating, Fatigue, Flushing, Heat Intolorance, Increase in Ring/Shoe/Hat Size, Palpitations, Polydipsia, Polyphagia, Polyuria, Other - Hematologic/Lymphatic Hematologic: absent: As Per HPI, Easy Bleeding, Easy Bruising, Lymphadenopathy, Other Past Patient History - Infectious Disease Hx of Infectious Diseases: None - Tetanus Immunizations Tetanus Immunization: Unknown - Past Medical History & Family History Past Medical History?: Yes - Past Social History Smoking Status: Heavy Smoker > 10 Cigarettes Daily Chewing Tobacco Use: No Cigar Use: No Alcohol: > 2 Drinks/Day Drugs: Cannabis, Opiates Home Situation {Lives}: Homeless - CARDIAC Hx Congestive Heart Failure: No Hx Hypercholesterolemia: No Hx Hypertension: Yes - PULMONARY Hx Chronic Obstructive Pulmonary Disease (COPD): Yes - NEUROLOGICAL Hx Alzheimer's Disease: No Hx Dementia: No Hx Migraine: No Hx Multiple Sclerosis: No Hx Parkinson's Disease: No Hx Seizures: No Hx Transient Ischemic Attacks (TIA): No - HEENT Hx HEENT Problems: No Hx Blind: No Hx Cataracts: No Hx Deafness: No Hx Difficulty Chewing: No Hx Epistaxis: No Hx Glaucoma: No Hx Macular Degeneration: No - RENAL Hx Chronic Kidney Disease: No Hx Kidney Stones: No - ENDOCRINE/METABOLIC Hx Hypothyroidism: No - HEMATOLOGICAL/ONCOLOGICAL Hx Anemia: No Hx Human Immunodeficiency Virus (HIV): No Hx Sickle Cell Disease: No - INTEGUMENTARY Hx Dermatological Problems: No Hx Basil Cell: No Hx Wu: No Hx Cellulitis: No Hx Eczema: No Hx Melanoma: No Hx Psoriasis: No Hx Squamous Cell: No - MUSCULOSKELETAL/RHEUMATOLOGICAL Hx Arthritis: No Hx Rheumatoid Arthritis: No - GASTROINTESTINAL Hx Crohn's Disease: No Hx Diverticulitis: No Hx Gall Bladder Disease: No Hx Gastritis: Yes Hx Pancreatitis: No - GENITOURINARY/GYNECOLOGICAL Hx Sexually Transmitted Disorders: No - PSYCHIATRIC Hx Anxiety: Yes Hx Bipolar Disorder: No Hx Depression: Yes Hx Paranoia: No Hx Post Traumatic Stress Disorder: No Hx Schizophrenia: No Hx Substance Use: Yes - SURGICAL HISTORY Hx Appendectomy: Yes Hx Carotid Endarterectomy: No Hx Cholecystectomy: No Hx Coronary Artery Bypass Graft: No Hx Coronary Stent: No Hx Tonsillectomy: Yes - ANESTHESIA Hx Anesthesia: Yes Hx Anesthesia Reactions: No Hx Malignant Hyperthermia: No Meds Allergies/Adverse Reactions: Allergies Allergy/AdvReac Type Severity Reaction Status Date / Time No Known Allergies Allergy Verified 01/11/19 13:59 - Medications Medications: Current Medications Albuterol/Ipratropium (Duoneb 3 Mg/0.5 Mg (3 Ml) Ud) 3 ml INH RQ4 [facility] Last Admin: 01/23/19 07:30 Dose: 3 ml Budesonide (Pulmicort Respules) 0.5 mg INH RQ12 [facility] Last Admin: 01/22/19 19:45 Dose: 0.5 mg Diltiazem HCl (Cardizem) 30 mg PO QID [facility] Last Admin: 01/23/19 10:08 Dose: 30 mg Enoxaparin Sodium (Lovenox) 40 mg SC DAILY [facility] Last Admin: 01/23/19 10:12 Dose: 40 mg Escitalopram Oxalate (Lexapro) 10 mg PO DAILY [facility] Last Admin: 01/23/19 10:10 Dose: 10 mg Folic Acid (Folic Acid) 1 mg PO DAILY [facility] Last Admin: 01/23/19 10:08 Dose: 1 mg Gabapentin (Neurontin) 100 mg PO DAILY [facility] Last Admin: 01/23/19 10:09 Dose: 100 mg Hydroxyzine HCl (Atarax) 25 mg PO Q6H PRN PRN Reason: severe anxiety Multivitamins (Hexavitamin) 1 tab PO DAILY [facility] Last Admin: 01/23/19 10:09 Dose: 1 tab Nicotine (Nicoderm Cq) 1 patch TD DAILY [facility] Last Admin: 01/23/19 10:11 Dose: 1 patch Pantoprazole Sodium (Protonix Ec Tab) 40 mg PO DAILY [facility] Last Admin: 01/23/19 10:11 Dose: 40 mg Prednisone (Prednisone Tab) 20 mg PO DAILY [facility] Last Admin: 01/23/19 10:09 Dose: 20 mg Prednisone (Prednisone Tab) 10 mg PO DAILY [facility] Promethazine HCl (Phenergan Syrup) 12.5 mg PO Q6 PRN PRN Reason: Cough Last Admin: 01/22/19 22:02 Dose: 12.5 mg Tamsulosin HCl (Flomax) 0.4 mg PO DAILY [facility] Last Admin: 01/23/19 10:09 Dose: 0.4 mg Thiamine HCl (Vitamin B1 Tab) 100 mg PO DAILY [facility] Last Admin: 01/23/19 10:10 Dose: 100 mg Physical Exam - Constitutional Appears: In Acute Distress, Chronically Ill - Head Exam Head Exam: ATRAUMATIC, NORMAL INSPECTION, NORMOCEPHALIC - Eye Exam Eye Exam: EOMI, Normal appearance, PERRL Pupil Exam: NORMAL ACCOMODATION, PERRL - ENT Exam ENT Exam: Mucous Membranes Dry - Neck Exam Neck exam: Positive for: Normal Inspection - Respiratory Exam Respiratory Exam: Decreased Breath Sounds, Prolonged Expiratory Phase, NORMAL BREATHING PATTERN - Cardiovascular Exam Cardiovascular Exam: Tachycardia, Irregular Rhythm - GI/Abdominal Exam GI & Abdominal Exam: Normal Bowel Sounds, Soft - Rectal Exam Rectal Exam: Deferred - Exam Exam: NORMAL INSPECTION - Extremities Exam Extremities exam: Positive for: normal capillary refill, normal inspection, p edal pulses present - Back Exam Back exam: NORMAL INSPECTION - Neurological Exam Neurological exam: Alert, Oriented x3, Reflexes Normal - Psychiatric Exam Psychiatric exam: Flat Affect - Skin Skin Exam: Dry, Intact, Pallor Results - Vital Signs Recent Vital Signs: Last Vital Signs Temp 97.7 F 01/23/19 08:00 Pulse 66 01/23/19 08:49 Resp 17 01/23/19 08:00 BP 153/76 H 01/23/19 08:00 Pulse Ox 100 01/23/19 08:00 - Labs Result Diagrams: 01/23/19 07:51 01/23/19 07:51 Labs: Laboratory Results - last 24 hr 01/23/19 01/23/19 07:51 07:51 WBC 5.3 RBC 3.29 L Hgb 9.2 L Hct 28.4 L MCV 86.4 MCH 28.0 MCHC 32.4 L RDW 20.1 H Plt Count 336 MPV 7.8 Neut % (Auto) 70.0 Lymph % (Auto) 22.7 [place] % (Auto) 6.3 Eos % (Auto) 0.8 Baso % (Auto) 0.2 Neut # (Auto) 3.7 Lymph # (Auto) 1.2 [place] # (Auto) 0.3 Eos # (Auto) 0.0 Baso # (Auto) 0.0 Sodium 131 L Potassium 3.8 Chloride 90 L Carbon Dioxide 38 H Anion Gap 7 L BUN 16 Creatinine 0.5 L Est GFR ( Amer) > 60 Est GFR (Non-Af Amer) > 60 Random Glucose 80 Calcium 8.4 L Total Bilirubin 0.3 AST 32 ALT 34 Alkaline Phosphatase 68 Total Protein 5.6 L Albumin 3.2 L Globulin 2.4 Albumin/Globulin Ratio 1.3 Assessment & Plan - Assessment and Plan (Free Text) Assessment: Palliative Consult There wasn't Advanced Directive, PPS 40% I reviewed medical records, all diagnostic studies, examined and interviewed patient in the bed. Patient is alert, oriented x3 with speech that is clear and flat affect. Patient doesn't offer any acute complaints. Skin is pale, Hgb 9.2, Patient had no recent acute bleedings. Breathing is regular, breath sounds are diminished with prolonged expiratory phase. Patient is on BIPAP at 40% FIO2.Patient reports being unable to walk more than a half a block without being short of breath. He is not using 02 at home. Abdomen is soft, acute bowel sounds, denies constipation, reports diarrhea in the past, reports having no regular meals sometimes for 3 days. LEs are with good pedal pulses, no pedal edema, and warm to touch. Patient reports numbness to both feet with good sensation to touch. Patient takes neurontin 300mg daily. Patient denies pain Blood pressure 153/76, HR 66, 02 Sat 95% on bipap, no fever WBC 4.3, Hgb 9.2, Na 131, IV fluids NS 100cc Goals of Care discussed with patient. I reviewed his clinical presentation and questioned his understanding of his condition. Patient admits to drinking alcohol excessively and spending almost all his monthly income on the drinks. I javier my concerns about his lifestyle affecting his health and his stated understanding. We discussed the ways of assisting him in his recovery from alcohol abuse. He agreed to be admitted to detox unit. We further discussed the lack of housing. Patient admits to living on the streets, even during the winter months. He eats very randomly and doesnt go to shelters as he gets drunk and is unable to make it there on time. We discussed possibility of placing him in LTC after the detox as he is unable to obtain care needed for his condition if outside in community. Patient agreed to LTC pl acement as he is dependent on the high flow of O2 and his gait is unsteady. Code status discussed. POLST introduced. I made sure patient understood the meaning of DNR/DNI. Patient clearly stated that he would not want his life to be prolonged by aggressive measures if he condition is terminal and meaningful recovery is not expected. POLST signed by the patient. He chose to be DNR/DNI. I discussed this with Dr. Palacio and with Elle BERNAL. Dr. Palacio agreed that LTC placement is appropriate discharge planning for this patient due to his chronic dependency of 02 and inability walking due to SOB. Dr. Gonzalez was present during the discussion and agreed. I entered DNR/DNI order as instructed by Dr. Palacio. Impression * ETOH abuse * Acute on chronic respiratory distress * Difficulty walking due to SOB, numbness to ANGELES feet * lack of Family support * lack of housing Suggestion * Refer to Alcohol detox unit * Continue Nebulizer Tx and prednisone * continue 02 support * OOB with PT * D/C planning to [facility] with LTC plan * SS assist with d/c planning * agree with DNR/DNI Palliative care will remain onboard as needed to support this patient Advanced Care Planning 55 minutes
[2019-01-23] MEDS: Promethazine 12.5 mg/10 ml Syrup PO PRN (22:27)
[2019-01-24] MEDS: Albuterol-Ipratrop 3 mg / 0.5 (3 ml) UD INH SCH ×5 (03:13→19:10)
[2019-01-24 07:20] LABS: BASO % 0.5 % (0.0-2.0); EOS # 0.1 K/uL (0.0-0.7); HEMOGLOBIN 9.3 g/dL (12.0-18.0); LYMPH # 1.4 K/uL (1.0-4.3); LYMPH % 24.2 % (20.0-40.0); MEAN CELL VOLUME 86.1 fL (80.0-94.0); MEAN CORPUSCULAR HEMOGLOBIN 28.2 pg (27.0-31.0); MEAN CORPUSCULAR HGB CONC 32.8 g/dL (33.0-37.0); MEAN PLATELET VOLUME 7.8 fL (7.2-11.7); MONO # 0.3 K/uL (0.0-0.8); MONO % 5.8 % (0.0-10.0); NEUT # 3.9 K/uL (1.8-7.0); NEUT % 68.5 % (50.0-75.0); RBC 3.3 Mil/uL (4.40-5.90); RED CELL DISTRIBUTION WIDTH 20.1 % (11.5-14.5); WHITE BLOOD COUNT 5.7 K/uL (4.8-10.8)
[2019-01-24 07:38] LABS: ALB/GLOB RATIO 1.3 (1.0-2.1); ALBUMIN 3.2 g/dL (3.5-5.0); ALT/SGPT 39 U/L (21-72); AST/SGOT 22 U/L (17-59); BLOOD UREA NITROGEN 17 mg/dL (9-20); CALCIUM 8.4 mg/dl (8.6-10.4); GFR NON-AFRICAN AMERICAN > 60
[2019-01-24] MEDS: Budesonide 0.5 mg/2 ml Inhal Susp UD INH SCH ×2 (08:08→19:10)
[2019-01-24] MEDS: Multiple Vitamins Tab PO SCH (09:45)
[2019-01-24] MEDS: Pantoprazole 40 mg EC Tab PO SCH (09:46)
[2019-01-24] MEDS: Enoxaparin 40 mg Syringe SC SCH (09:47)
[2019-01-24] MEDS: Promethazine 12.5 mg/10 ml Syrup PO PRN (22:42)
[2019-01-25] MEDS: Albuterol-Ipratrop 3 mg / 0.5 (3 ml) UD INH SCH ×6 (00:11→19:27)
[2019-01-25] MEDS: Budesonide 0.5 mg/2 ml Inhal Susp UD INH SCH ×2 (07:34→19:27)
[2019-01-25] MEDS: Pantoprazole 40 mg EC Tab PO SCH (10:25)
[2019-01-25] MEDS: Enoxaparin 40 mg Syringe SC SCH (10:26)
[2019-01-25] MEDS: Promethazine 12.5 mg/10 ml Syrup PO PRN ×2 (10:26→22:53)
[2019-01-25] MEDS: Multiple Vitamins Tab PO SCH (10:26)
[2019-01-26] MEDS: Albuterol-Ipratrop 3 mg / 0.5 (3 ml) UD INH SCH ×7 (00:18→23:52)
[2019-01-26] MEDS: Budesonide 0.5 mg/2 ml Inhal Susp UD INH SCH ×2 (07:35→19:45)
[2019-01-26] MEDS: Multiple Vitamins Tab PO SCH (10:04)
[2019-01-26] MEDS: Pantoprazole 40 mg EC Tab PO SCH (10:04)
--- NOTE | 2019-01-26 11:01 | CP.PCM.PN ---
Subjective - Date & Time of Evaluation Date of Evaluation: 01/26/19 Time of Evaluation: 08:00 - Subjective Subjective: Medicine Progress Note for Dr. Gonzalez's Service: Patient seen and examined at bedside. Patient states he does feel slightly better but continues to use the Bipap as needed and at bedtime. Patient is tolerating diet well. Patient denies any chest pain, fevers, chills, nausea or vomiting. Objective - Vital Signs/Intake and Output Vital Signs (last 24 hours): Temp Pulse Resp BP Pulse Ox 97.6 F 67 20 160/80 H 100 01/26/19 08:10 01/26/19 08:46 01/26/19 08:10 01/26/19 08:10 01/26/19 08:10 Intake and Output: 01/26/19 01/26/19 06:59 18:59 Intake Total 10 Balance 10 - Medications Medications: Current Medications Albuterol/Ipratropium (Duoneb 3 Mg/0.5 Mg (3 Ml) Ud) 3 ml INH RQ4 [facility] Last Admin: 01/26/19 07:35 Dose: 3 ml Budesonide (Pulmicort Respules) 0.5 mg INH RQ12 [facility] Last Admin: 01/26/19 07:35 Dose: 0.5 mg Diltiazem HCl (Cardizem) 30 mg PO QID [facility] Last Admin: 01/26/19 10:04 Dose: 30 mg Escitalopram Oxalate (Lexapro) 10 mg PO DAILY [facility] Last Admin: 01/26/19 10:05 Dose: 10 mg Folic Acid (Folic Acid) 1 mg PO DAILY [facility] Last Admin: 01/26/19 10:04 Dose: 1 mg Gabapentin (Neurontin) 100 mg PO DAILY [facility] Last Admin: 01/26/19 10:04 Dose: 100 mg Hydroxyzine HCl (Atarax) 25 mg PO Q6H PRN PRN Reason: severe anxiety Multivitamins (Hexavitamin) 1 tab PO DAILY [facility] Last Admin: 01/26/19 10:04 Dose: 1 tab Nicotine (Nicoderm Cq) 1 patch TD DAILY [facility] Last Admin: 01/26/19 10:04 Dose: 1 patch Pantoprazole Sodium (Protonix Ec Tab) 40 mg PO DAILY [facility] Last Admin: 01/26/19 10:04 Dose: 40 mg Prednisone (Prednisone Tab) 20 mg PO DAILY [facility] Last Admin: 01/26/19 10:04 Dose: 20 mg Prednisone (Prednisone Tab) 10 mg PO DAILY [facility] Last Admin: 01/26/19 10:04 Dose: 10 mg Promethazine HCl (Phenergan Syrup) 12.5 mg PO Q6 PRN PRN Reason: Cough Last Admin: 01/25/19 22:53 Dose: 12.5 mg Tamsulosin HCl (Flomax) 0.4 mg PO DAILY [facility] Last Admin: 01/26/19 10:04 Dose: 0.4 mg Thiamine HCl (Vitamin B1 Tab) 100 mg PO DAILY [facility] Last Admin: 01/26/19 10:04 Dose: 100 mg - Labs Labs: 01/24/19 07:12 01/24/19 07:12 PT 10.3 SECONDS (9.7-12.2) 01/11/19 14:06 INR 0.9 01/11/19 14:06 APTT 31 SECONDS (21-34) 01/11/19 14:06 - Constitutional Appears: No Acute Distress, Chronically Ill - Head Exam Head Exam: ATRAUMATIC, NORMAL INSPECTION - Eye Exam Eye Exam: EOMI, Normal appearance - ENT Exam ENT Exam: Mucous Membranes Moist - Respiratory Exam Respiratory Exam: Wheezes, NORMAL BREATHING PATTERN - Cardiovascular Exam Cardiovascular Exam: REGULAR RHYTHM, +S1, +S2 - GI/Abdominal Exam GI & Abdominal Exam: Soft, Normal Bowel Sounds. absent: Tenderness - Extremities Exam Extremities Exam: Normal Inspection - Neurological Exam Neurological Exam: Alert, Awake, Oriented x3 - Psychiatric Exam Psychiatric exam: Normal Affect - Skin Skin Exam: Normal Color Assessment and Plan - Assessment and Plan (Free Text) Assessment: 58 year old male with a past medical history of heroin abuse, copd, and polysubstance abuse presents for hypothermia. COPD Exacerbation - MASSAGE THERAPY INSTRUCTOR x2 was called on 01/13/19 for respiratory distress. At that time patient was transferred to ICU for closer observation, placed on bipap and given duoneb and racemic epinephrine. Patient has been has been transferred out of ICU and currently on tele 01/15/19. - Patient is currently on BiPap, encouraged to use NC - Repeat Chest xray 01/19/19: COPD; possible pneumonia - Medications: * Duonebs q4h * Pulmicort 0.5mg INH RQ12 * Solu-Medrol 40mg IV q6h (stop 01/16/19) * Prednisone 60mg po daily for 3 days --> Prednisone 40mg po daily for 3 days --> Prednisone 20mg po daily for 3 days --> Prednisone 10mg po daily for 3 days Anemia - Hemoglobin 12---> 8.3 - f/u Stool occult blood - Type and Screen - Will monitor with serial CBC's Polysubstance abuse - Psych Consult: Dr. Heredia --> help appreciated - Alcohol level on admission (01/11/19): 216; positive for benzodiazepines - Medications: * Multivitamin po daily * Folic acid 1mg PO DAILY [facility] * Thiamine 100mg PO DAILY [facility] * Nicotine Patch TD * Atarax 25mg PO Q6 prn New Onset Atrial fibrillation - Likely / to etoh abuse. Patient has no history of atrial fibrillation in the past - Due to patient polysubstance abuse, and withdrawal symptoms patient is a high fall risk * anticoagulation not recommended currently as patient a fall risk - ECHO (01/13/19): EF 59% - Medications: * Cardizem 30mg po qid Leukocytosis - Resolved - WBC: 16.9 --->11.2 --> 5 - Likely secondary to steroids - Blood cultures and Urine cultures are negative - Chest xray (01/13/18): No focal consolidation - Medications: * Zosyn 3.375mg IVPB Q6 (discontinued 01/19/19) Elevated Liver Enzymes - Resolved - Normalized, was likely secondary to alcohol abuse - continue to monitor BPH - Flomax 0.4 mg PO daily Depression - Lexapro 10mg po daily - Psych Consult: Dr. Heredia --> help appreciated Prophylaxis - GI: Protonix 40mg PO daily - DVT: Lovenox 40mg SC daily - Physical Therapy; recommends [facility] - Case management referral for [facility] placement, pending approval. - POLST signed- DNR/DNI (Palliative care consulted, help appreciated) Case discussed with Dr. Gonzalez
[2019-01-26 11:31] LABS: BASO % 0.3 % (0.0-2.0); EOS # 0.1 K/uL (0.0-0.7); EOS % 1.5 % (0.0-4.0); HEMOGLOBIN 9.5 g/dL (12.0-18.0); LYMPH # 1.4 K/uL (1.0-4.3); LYMPH % 20.2 % (20.0-40.0); MEAN CELL VOLUME 86.8 fL (80.0-94.0); MEAN CORPUSCULAR HEMOGLOBIN 28.1 pg (27.0-31.0); MEAN CORPUSCULAR HGB CONC 32.4 g/dL (33.0-37.0); MEAN PLATELET VOLUME 7.6 fL (7.2-11.7); MONO # 0.4 K/uL (0.0-0.8); MONO % 6.2 % (0.0-10.0); NEUT % 71.8 % (50.0-75.0); RBC 3.39 Mil/uL (4.40-5.90); RED CELL DISTRIBUTION WIDTH 19.9 % (11.5-14.5); WHITE BLOOD COUNT 6.9 K/uL (4.8-10.8)
[2019-01-26 11:48] LABS: ALB/GLOB RATIO 1.4 (1.0-2.1); ALBUMIN 3.3 g/dL (3.5-5.0); ALT/SGPT 36 U/L (21-72); AST/SGOT 33 U/L (17-59); BLOOD UREA NITROGEN 18 mg/dL (9-20); CALCIUM 8.4 mg/dl (8.6-10.4); GFR NON-AFRICAN AMERICAN > 60
[2019-01-26] MEDS: Promethazine 12.5 mg/10 ml Syrup PO PRN (13:54)
[2019-01-26] MEDS ORDERED: Potassium Chloride 20 mEq ER Tab PO ONE (16:17)
[2019-01-27] MEDS: Promethazine 12.5 mg/10 ml Syrup PO PRN ×3 (01:27→21:12)
[2019-01-27] MEDS: Albuterol-Ipratrop 3 mg / 0.5 (3 ml) UD INH SCH ×5 (03:18→19:35)
[2019-01-27 07:37] LABS: BASO % 0.2 % (0.0-2.0); EOS # 0.1 K/uL (0.0-0.7); EOS % 1.5 % (0.0-4.0); HEMOGLOBIN 9.4 g/dL (12.0-18.0); LYMPH # 1.4 K/uL (1.0-4.3); LYMPH % 18.7 % (20.0-40.0); MEAN CELL VOLUME 86.7 fL (80.0-94.0); MEAN CORPUSCULAR HEMOGLOBIN 28.1 pg (27.0-31.0); MEAN CORPUSCULAR HGB CONC 32.4 g/dL (33.0-37.0); MEAN PLATELET VOLUME 7.4 fL (7.2-11.7); MONO # 0.4 K/uL (0.0-0.8); MONO % 5.8 % (0.0-10.0); NEUT # 5.4 K/uL (1.8-7.0); NEUT % 73.8 % (50.0-75.0); NRBC % 0.1 % (0.0-2.0); RBC 3.36 Mil/uL (4.40-5.90); RED CELL DISTRIBUTION WIDTH 20.2 % (11.5-14.5); WHITE BLOOD COUNT 7.3 K/uL (4.8-10.8)
[2019-01-27] MEDS: Budesonide 0.5 mg/2 ml Inhal Susp UD INH SCH ×2 (07:45→19:35)
--- NOTE | 2019-01-27 07:53 | CP.PCM.PN ---
Subjective - Date & Time of Evaluation Date of Evaluation: 01/27/19 Time of Evaluation: 08:00 - Subjective Subjective: Medicine Progress Note for Dr. Gonzalez's Service: Patient seen and examined at bedside. Patient continues to use the Bipap as needed and at bedtime. Patient is tolerating diet well. Patient denies any chest pain, fevers, chills, nausea or vomiting. Objective - Vital Signs/Intake and Output Vital Signs (last 24 hours): Temp Pulse Resp BP Pulse Ox 97.8 F 78 20 113/75 100 01/27/19 00:00 01/27/19 05:09 01/27/19 00:00 01/27/19 00:00 01/27/19 00:00 Intake and Output: 01/27/19 01/27/19 06:59 18:59 Output Total 300 Balance -300 - Medications Medications: Current Medications Albuterol/Ipratropium (Duoneb 3 Mg/0.5 Mg (3 Ml) Ud) 3 ml INH RQ4 [facility] Last Admin: 01/27/19 03:18 Dose: 3 ml Budesonide (Pulmicort Respules) 0.5 mg INH RQ12 [facility] Last Admin: 01/26/19 19:45 Dose: 0.5 mg Diltiazem HCl (Cardizem) 30 mg PO QID [facility] Last Admin: 01/26/19 21:54 Dose: 30 mg Escitalopram Oxalate (Lexapro) 10 mg PO DAILY [facility] Last Admin: 01/26/19 10:05 Dose: 10 mg Folic Acid (Folic Acid) 1 mg PO DAILY [facility] Last Admin: 01/26/19 10:04 Dose: 1 mg Gabapentin (Neurontin) 100 mg PO DAILY [facility] Last Admin: 01/26/19 10:04 Dose: 100 mg Hydroxyzine HCl (Atarax) 25 mg PO Q6H PRN PRN Reason: severe anxiety Last Admin: 01/26/19 17:49 Dose: 25 mg Multivitamins (Hexavitamin) 1 tab PO DAILY [facility] Last Admin: 01/26/19 10:04 Dose: 1 tab Nicotine (Nicoderm Cq) 1 patch TD DAILY [facility] Last Admin: 01/26/19 10:04 Dose: 1 patch Pantoprazole Sodium (Protonix Ec Tab) 40 mg PO DAILY [facility] Last Admin: 01/26/19 10:04 Dose: 40 mg Prednisone (Prednisone Tab) 20 mg PO DAILY [facility] Last Admin: 01/26/19 10:04 Dose: 20 mg Prednisone (Prednisone Tab) 10 mg PO DAILY [facility] Last Admin: 01/26/19 10:04 Dose: 10 mg Promethazine HCl (Phenergan Syrup) 12.5 mg PO Q6 PRN PRN Reason: Cough Last Admin: 01/27/19 01:27 Dose: 12.5 mg Tamsulosin HCl (Flomax) 0.4 mg PO DAILY [facility] Last Admin: 01/26/19 10:04 Dose: 0.4 mg Thiamine HCl (Vitamin B1 Tab) 100 mg PO DAILY [facility] Last Admin: 01/26/19 10:04 Dose: 100 mg - Labs Labs: 01/27/19 07:20 01/26/19 11:22 PT 10.3 SECONDS (9.7-12.2) 01/11/19 14:06 INR 0.9 01/11/19 14:06 APTT 31 SECONDS (21-34) 01/11/19 14:06 - Constitutional Appears: No Acute Distress, Chronically Ill - Head Exam Head Exam: ATRAUMATIC, NORMAL INSPECTION - Eye Exam Eye Exam: EOMI, Normal appearance - ENT Exam ENT Exam: Mucous Membranes Moist - Respiratory Exam Respiratory Exam: Wheezes, NORMAL BREATHING PATTERN. absent: Clear to Ausculation Bilateral - Cardiovascular Exam Cardiovascular Exam: REGULAR RHYTHM, +S1, +S2 - GI/Abdominal Exam GI & Abdominal Exam: Soft, Normal Bowel Sounds. absent: Tenderness - Extremities Exam Extremities Exam: Normal Inspection - Neurological Exam Neurological Exam: Alert, Awake, Oriented x3 - Psychiatric Exam Psychiatric exam: Normal Affect Assessment and Plan - Assessment and Plan (Free Text) Assessment: 58 year old male with a past medical history of heroin abuse, copd, and polysubstance abuse presents for hypothermia. COPD Exacerbation - ADMINISTRATIVE SALES ASSISTANT x2 was called on 01/13/19 for respiratory distress. At that time patient was transferred to ICU for closer observation, placed on bipap and given duoneb and racemic epinephrine. Patient has been has been transferred out of ICU and currently on tele 01/15/19. - Patient is currently on BiPap, encouraged to use NC - Repeat Chest xray 01/19/19: COPD; possible pneumonia - Medications: * Duonebs q4h * Pulmicort 0.5mg INH RQ12 * Solu-Medrol 40mg IV q6h (stop 01/16/19) * Prednisone 60mg po daily for 3 days --> Prednisone 40mg po daily for 3 days --> Prednisone 20mg po daily for 3 days --> Prednisone 10mg po daily for 3 days Anemia - Hemoglobin 12---> 8.3 - f/u Stool occult blood - Type and Screen - Will monitor with serial CBC's Polysubstance abuse - Psych Consult: Dr. Heredia --> help appreciated - Alcohol level on admission (01/11/19): 216; positive for benzodiazepines - Medications: * Multivitamin po daily * Folic acid 1mg PO DAILY FERNANDA * Thiamine 100mg PO DAILY FERNANDA * Nicotine Patch TD * Atarax 25mg PO Q6 prn New Onset Atrial fibrillation - Likely 12/27 to etoh abuse. Patient has no history of atrial fibrillation in the past - Due to patient polysubstance abuse, and withdrawal symptoms patient is a high fall risk * anticoagulation not recommended currently as patient a fall risk - ECHO (01/13/19): EF 59% - Medications: * Cardizem 30mg po qid Leukocytosis - Resolved - WBC: 16.9 --->11.2 --> 5 - Likely secondary to steroids - Blood cultures and Urine cultures are negative - Chest xray (01/13/18): No focal consolidation - Medications: * Zosyn 3.375mg IVPB Q6 (discontinued 01/19/19) Elevated Liver Enzymes - Resolved - Normalized, was likely secondary to alcohol abuse - continue to monitor BPH - Flomax 0.4 mg PO daily Depression - Lexapro 10mg po daily - Psych Consult: Dr. Heredia --> help appreciated Prophylaxis - GI: Protonix 40mg PO daily - DVT: Lovenox 40mg SC daily - Physical Therapy; recommends BLAS - Case management referral for [facility] placement, pending approval. - POLST signed- DNR/DNI (Palliative care consulted, help appreciated) Case discussed with Dr. Lisa Del Valle PGY-2
[2019-01-27 07:59] LABS: ALB/GLOB RATIO 1.4 (1.0-2.1); ALBUMIN 3.3 g/dL (3.5-5.0); ALT/SGPT 33 U/L (21-72); AST/SGOT 20 U/L (17-59); BLOOD UREA NITROGEN 17 mg/dL (9-20); CALCIUM 8.4 mg/dl (8.6-10.4); GFR NON-AFRICAN AMERICAN > 60
[2019-01-27] MEDS: Pantoprazole 40 mg EC Tab PO SCH (09:44)
[2019-01-27] MEDS: Multiple Vitamins Tab PO SCH (09:44)
[2019-01-28] MEDS: Albuterol-Ipratrop 3 mg / 0.5 (3 ml) UD INH SCH ×6 (00:09→19:40)
[2019-01-28] MEDS: Budesonide 0.5 mg/2 ml Inhal Susp UD INH SCH ×2 (07:45→19:40)
[2019-01-28 08:32] LABS: BASO % 0.3 % (0.0-2.0); EOS # 0.1 K/uL (0.0-0.7); EOS % 1.6 % (0.0-4.0); HEMOGLOBIN 9.2 g/dL (12.0-18.0); LYMPH # 1.4 K/uL (1.0-4.3); LYMPH % 20.5 % (20.0-40.0); MEAN CELL VOLUME 86.8 fL (80.0-94.0); MEAN CORPUSCULAR HEMOGLOBIN 28.1 pg (27.0-31.0); MEAN CORPUSCULAR HGB CONC 32.3 g/dL (33.0-37.0); MEAN PLATELET VOLUME 7.5 fL (7.2-11.7); MONO # 0.5 K/uL (0.0-0.8); MONO % 6.4 % (0.0-10.0); NEUT % 71.2 % (50.0-75.0); RBC 3.28 Mil/uL (4.40-5.90); RED CELL DISTRIBUTION WIDTH 19.6 % (11.5-14.5)
[2019-01-28 08:43] LABS: ALB/GLOB RATIO 1.3 (1.0-2.1); ALBUMIN 3.2 g/dL (3.5-5.0); ALT/SGPT 32 U/L (21-72); AST/SGOT 17 U/L (17-59); BLOOD UREA NITROGEN 18 mg/dL (9-20); CALCIUM 8.4 mg/dl (8.6-10.4); GFR NON-AFRICAN AMERICAN > 60
--- NOTE | 2019-01-28 09:21 | CP.PCM.PN ---
Subjective - Date & Time of Evaluation Date of Evaluation: 01/28/19 Time of Evaluation: 09:21 - Subjective Subjective: Progress note for Dr. oGnzalez Patient was seen and examined at bedside in no acute distress. Patient has no complaints today and denies chest pain, palpitations, nausea, vomiting, fevers, headaches, abdominal pain, constipation, diarrhea, dysuria. Objective - Vital Signs/Intake and Output Vital Signs (last 24 hours): Temp Pulse Resp BP Pulse Ox 97.6 F 66 19 153/81 H 100 01/28/19 08:00 01/28/19 09:18 01/28/19 08:00 01/28/19 08:00 01/28/19 08:00 Intake and Output: 01/28/19 01/28/19 06:59 18:59 Output Total 150 Balance -150 - Medications Medications: Current Medications Albuterol/Ipratropium (Duoneb 3 Mg/0.5 Mg (3 Ml) Ud) 3 ml INH RQ4 [facility] Last Admin: 01/28/19 07:45 Dose: 3 ml Budesonide (Pulmicort Respules) 0.5 mg INH RQ12 [facility] Last Admin: 01/28/19 07:45 Dose: 0.5 mg Diltiazem HCl (Cardizem) 30 mg PO QID [facility] Last Admin: 01/27/19 21:08 Dose: 30 mg Escitalopram Oxalate (Lexapro) 10 mg PO DAILY [facility] Last Admin: 01/27/19 09:44 Dose: 10 mg Folic Acid (Folic Acid) 1 mg PO DAILY [facility] Last Admin: 01/27/19 09:44 Dose: 1 mg Gabapentin (Neurontin) 100 mg PO DAILY [facility] Last Admin: 01/27/19 09:45 Dose: 100 mg Heparin Sodium (Porcine) (Heparin) 5,000 units SC Q8 [facility] Last Admin: 01/28/19 05:48 Dose: 5,000 units Hydroxyzine HCl (Atarax) 25 mg PO Q6H PRN PRN Reason: severe anxiety Last Admin: 01/26/19 17:49 Dose: 25 mg Multivitamins (Hexavitamin) 1 tab PO DAILY [facility] Last Admin: 01/27/19 09:44 Dose: 1 tab Nicotine (Nicoderm Cq) 1 patch TD DAILY [facility] Last Admin: 01/27/19 09:45 Dose: 1 patch Pantoprazole Sodium (Protonix Ec Tab) 40 mg PO DAILY [facility] Last Admin: 01/27/19 09:44 Dose: 40 mg Prednisone (Prednisone Tab) 20 mg PO DAILY [facility] Last Admin: 01/27/19 09:45 Dose: 20 mg Prednisone (Prednisone Tab) 10 mg PO DAILY [facility] Last Admin: 01/27/19 09:45 Dose: 10 mg Promethazine HCl (Phenergan Syrup) 12.5 mg PO Q6 PRN PRN Reason: Cough Last Admin: 01/27/19 21:12 Dose: 12.5 mg Tamsulosin HCl (Flomax) 0.4 mg PO DAILY [facility] Last Admin: 01/27/19 09:45 Dose: 0.4 mg Thiamine HCl (Vitamin B1 Tab) 100 mg PO DAILY [facility] Last Admin: 01/27/19 09:44 Dose: 100 mg - Labs Labs: 01/28/19 08:24 01/28/19 08:24 PT 10.3 SECONDS (9.7-12.2) 01/11/19 14:06 INR 0.9 01/11/19 14:06 APTT 31 SECONDS (21-34) 01/11/19 14:06 - Additional Findings Additional findings: - Constitutional Appears: No Acute Distress - Head Exam Head Exam: ATRAUMATIC, NORMAL INSPECTION - Eye Exam Eye Exam: EOMI, Normal appearance - ENT Exam ENT Exam: Mucous Membranes Moist - Respiratory Exam Respiratory Exam: Decreased Breath Sounds, Wheezes. absent: Clear to Ausculation Bilateral - Cardiovascular Exam Cardiovascular Exam: Irregular Rhythm, +S1, +S2 - GI/Abdominal Exam GI & Abdominal Exam: Soft, Normal Bowel Sounds. absent: Distended, Firm, Tenderness - Extremities Exam Extremities Exam: Normal Inspection. absent: Calf Tenderness, Pedal Edema, Tenderness - Neurological Exam Neurological Exam: Alert, Awake, Oriented x3 - Psychiatric Exam Psychiatric exam: Normal Affect, Normal Mood - Skin Skin Exam: Dry, Warm Assessment and Plan - Assessment and Plan (Free Text) Plan: 58 year old male with a past medical history of heroin abuse, copd, and polysubstance abuse presents for hypothermia. 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 At that time patient was transferred to ICU for closer observation, placed on bipap and given duoneb and racemic epinephrine. Patient has been has been transferred out of ICU and currently on tele 01/15/19. - Patient is currently on BiPap, encouraged to use NC - Repeat Chest xray 01/19/19: COPD; possible pneumonia - Medications: * Duonebs q4h * Pulmicort 0.5mg INH RQ12 * Solu-Medrol 40mg IV q6h (stop 01/16/19) * Prednisone 60mg po daily for 3 days --> Prednisone 40mg po daily for 3 days --> Prednisone 20mg po daily for 3 days --> Prednisone 10mg po daily for 3 days Anemia - Hemoglobin 12---> 8.3 - f/u Stool occult blood - Type and Screen - Will monitor with serial CBC's Polysubstance abuse - Psych Consult: Dr. Heredia --> help appreciated - Alcohol level on admission (01/11/19): 216; positive for benzodiazepines - Medications: * Multivitamin po daily * Folic acid 1mg PO DAILY FERNANDA * Thiamine 100mg PO DAILY FERNANDA * Nicotine Patch TD * Atarax 25mg PO Q6 prn New Onset Atrial fibrillation - Likely 12/27 to etoh abuse. Patient has no history of atrial fibrillation in the past - Due to patient polysubstance abuse, and withdrawal symptoms patient is a high fall risk * anticoagulation not recommended currently as patient a fall risk - ECHO (01/13/19): EF 59% - Medications: * Cardizem 30mg po qid Leukocytosis - Resolved - WBC: 16.9 --->11.2 --> 5 - Likely secondary to steroids - Blood cultures and Urine cultures are negative - Chest xray (01/13/18): No focal consolidation - Medications: * Zosyn 3.375mg IVPB Q6 (discontinued 01/19/19) Elevated Liver Enzymes - Resolved - Normalized, was likely secondary to alcohol abuse - continue to monitor BPH - Flomax 0.4 mg PO daily Depression - Lexapro 10mg po daily - Psych Consult: Dr. Heredia --> help appreciated Prophylaxis - GI: Protonix 40mg PO daily - DVT: Lovenox 40mg SC daily - Physical Therapy; recommends BLAS - Case management referral for BLAS placement, pending approval. - POLST signed- DNR/DNI (Palliative care consulted, help appreciated) Case discussed with and patient seen with Dr. Lisa Esqueda, PGY2
[2019-01-28] MEDS: Promethazine 12.5 mg/10 ml Syrup PO PRN (10:24)
[2019-01-28] MEDS: Multiple Vitamins Tab PO SCH (10:24)
[2019-01-28] MEDS: Pantoprazole 40 mg EC Tab PO SCH (10:24)
[2019-01-29] MEDS: Albuterol-Ipratrop 3 mg / 0.5 (3 ml) UD INH SCH ×6 (00:48→19:29)
[2019-01-29] MEDS: Promethazine 12.5 mg/10 ml Syrup PO PRN ×2 (06:20→10:05)
--- NOTE | 2019-01-29 07:05 | CP.PCM.PN ---
Subjective - Date & Time of Evaluation Date of Evaluation: 01/29/19 Time of Evaluation: 07:05 - Subjective Subjective: Progress note for Dr. Gonzalez Patient was seen and examined at bedside in no acute distress. Patient has no complaints today and denies chest pain, palpitations, nausea, vomiting, fevers, headaches, abdominal pain, constipation, diarrhea, dysuria. Patient still using bipap and encouraged to use NC. Objective - Vital Signs/Intake and Output Vital Signs (last 24 hours): Temp Pulse Resp BP Pulse Ox 97.9 F 71 16 141/78 99 01/28/19 23:45 01/29/19 04:04 01/28/19 23:45 01/28/19 23:45 01/28/19 23:45 - Medications Medications: Current Medications Albuterol/Ipratropium (Duoneb 3 Mg/0.5 Mg (3 Ml) Ud) 3 ml INH RQ4 [facility] Last Admin: 01/29/19 04:04 Dose: 3 ml Budesonide (Pulmicort Respules) 0.5 mg INH RQ12 [facility] Last Admin: 01/28/19 19:40 Dose: 0.5 mg Diltiazem HCl (Cardizem) 30 mg PO QID [facility] Last Admin: 01/28/19 21:26 Dose: 30 mg Escitalopram Oxalate (Lexapro) 10 mg PO DAILY [facility] Last Admin: 01/28/19 10:25 Dose: 10 mg Folic Acid (Folic Acid) 1 mg PO DAILY [facility] Last Admin: 01/28/19 10:25 Dose: 1 mg Gabapentin (Neurontin) 100 mg PO DAILY [facility] Last Admin: 01/28/19 10:24 Dose: 100 mg Heparin Sodium (Porcine) (Heparin) 5,000 units SC Q8 [facility] Last Admin: 01/29/19 05:12 Dose: 5,000 units Hydroxyzine HCl (Atarax) 25 mg PO Q6H PRN PRN Reason: severe anxiety Last Admin: 01/26/19 17:49 Dose: 25 mg Multivitamins (Hexavitamin) 1 tab PO DAILY [facility] Last Admin: 01/28/19 10:24 Dose: 1 tab Nicotine (Nicoderm Cq) 1 patch TD DAILY [facility] Last Admin: 01/28/19 10:24 Dose: 1 patch Pantoprazole Sodium (Protonix Ec Tab) 40 mg PO DAILY [facility] Last Admin: 01/28/19 10:24 Dose: 40 mg Prednisone (Prednisone Tab) 20 mg PO DAILY [facility] Last Admin: 01/28/19 10:26 Dose: 20 mg Prednisone (Prednisone Tab) 10 mg PO DAILY [facility] Last Admin: 01/28/19 10:25 Dose: 10 mg Promethazine HCl (Phenergan Syrup) 12.5 mg PO Q6 PRN PRN Reason: Cough Last Admin: 01/29/19 06:20 Dose: 12.5 mg Tamsulosin HCl (Flomax) 0.4 mg PO DAILY [facility] Last Admin: 01/28/19 10:24 Dose: 0.4 mg Thiamine HCl (Vitamin B1 Tab) 100 mg PO DAILY [facility] Last Admin: 01/28/19 10:24 Dose: 100 mg - Labs Labs: 01/28/19 08:24 01/28/19 08:24 PT 10.3 SECONDS (9.7-12.2) 01/11/19 14:06 INR 0.9 01/11/19 14:06 APTT 31 SECONDS (21-34) 01/11/19 14:06 - Additional Findings Additional findings: - Constitutional Appears: No Acute Distress - Head Exam Head Exam: ATRAUMATIC, NORMAL INSPECTION - Eye Exam Eye Exam: EOMI, Normal appearance - ENT Exam ENT Exam: Mucous Membranes Moist - Respiratory Exam Respiratory Exam: Decreased Breath Sounds, Wheezes. absent: Clear to Ausculati on Bilateral - Cardiovascular Exam Cardiovascular Exam: Irregular Rhythm, +S1, +S2 - GI/Abdominal Exam GI & Abdominal Exam: Soft, Normal Bowel Sounds. absent: Distended, Firm, Tenderness - Extremities Exam Extremities Exam: Normal Inspection. absent: Calf Tenderness, Pedal Edema, Tenderness - Neurological Exam Neurological Exam: Alert, Awake, Oriented x3 - Psychiatric Exam Psychiatric exam: Normal Affect, Normal Mood - Skin Skin Exam: Dry, Warm Assessment and Plan - Assessment and Plan (Free Text) Plan: 58 year old male with a past medical history of heroin abuse, copd, and polysubstance abuse presents for hypothermia. 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 At that time patient was transferred to ICU for closer observation, placed on bipap and given duoneb and racemic epinephrine. Patient has been has been transferred out of ICU and currently on tele 01/15/19. - Patient is currently on BiPap, encouraged to use NC - Repeat Chest xray 01/19/19: COPD; possible pneumonia - Medications: * Duonebs q4h * Pulmicort 0.5mg INH RQ12 * Solu-Medrol 40mg IV q6h (stop 01/16/19) * Prednisone 60mg po daily for 3 days --> Prednisone 40mg po daily for 3 days --> Prednisone 20mg po daily for 3 days --> Prednisone 10mg po daily for 3 day s Anemia - Hemoglobin 12---> 8.3 - f/u Stool occult blood - Type and Screen - Will monitor with serial CBC's Polysubstance abuse - Psych Consult: Dr. Heredia --> help appreciated - Alcohol level on admission (01/11/19): 216; positive for benzodiazepines - Medications: * Multivitamin po daily * Folic acid 1mg PO DAILY FERNANDA * Thiamine 100mg PO DAILY FERNANDA * Nicotine Patch TD * Atarax 25mg PO Q6 prn New Onset Atrial fibrillation - Likely 12/27 to etoh abuse. Patient has no history of atrial fibrillation in the past - Due to patient polysubstance abuse, and withdrawal symptoms patient is a high fall risk * anticoagulation not recommended currently as patient a fall risk - ECHO (01/13/19): EF 59% - Medications: * Cardizem 30mg po qid Leukocytosis - Resolved - WBC: 16.9 --->11.2 --> 5 - Likely secondary to steroids - Blood cultures and Urine cultures are negative - Chest xray (01/13/18): No focal consolidation - Medications: * Zosyn 3.375mg IVPB Q6 (discontinued 01/19/19) Elevated Liver Enzymes - Resolved - Normalized, was likely secondary to alcohol abuse - continue to monitor BPH - Flomax 0.4 mg PO daily Depression - Lexapro 10mg po daily - Psych Consult: Dr. Heredia --> help appreciated Prophylaxis - GI: Protonix 40mg PO daily - DVT: Lovenox 40mg SC daily - Physical Therapy; recommends BLAS - POLST signed- DNR/DNI (Palliative care consulted, help appreciated) - Case management referral for [facility] placement: [facility], pending authorization Case discussed with and patient seen with Dr. Lisa Esqueda, PGY2
[2019-01-29 07:17] LABS: BASO # 0.1 K/uL (0.0-0.2); BASO % 0.7 % (0.0-2.0); EOS # 0.1 K/uL (0.0-0.7); EOS % 1.6 % (0.0-4.0); HEMOGLOBIN 9.2 g/dL (12.0-18.0); LYMPH # 1.5 K/uL (1.0-4.3); LYMPH % 19.2 % (20.0-40.0); MEAN CELL VOLUME 86.2 fL (80.0-94.0); MEAN CORPUSCULAR HEMOGLOBIN 28.4 pg (27.0-31.0); MEAN CORPUSCULAR HGB CONC 32.9 g/dL (33.0-37.0); MEAN PLATELET VOLUME 7.6 fL (7.2-11.7); MONO # 0.4 K/uL (0.0-0.8); MONO % 5.8 % (0.0-10.0); NEUT # 5.5 K/uL (1.8-7.0); NEUT % 72.7 % (50.0-75.0); RBC 3.25 Mil/uL (4.40-5.90); RED CELL DISTRIBUTION WIDTH 19.9 % (11.5-14.5); WHITE BLOOD COUNT 7.6 K/uL (4.8-10.8)
[2019-01-29] MEDS: Budesonide 0.5 mg/2 ml Inhal Susp UD INH SCH ×2 (07:17→19:29)
[2019-01-29 08:23] VITALS: RESP 20
[2019-01-29] MEDS: Multiple Vitamins Tab PO SCH (10:06)
[2019-01-29] MEDS: Pantoprazole 40 mg EC Tab PO SCH (10:06)
[2019-01-29 10:09] LABS: ALB/GLOB RATIO 1.4 (1.0-2.1); ALBUMIN 3.3 g/dL (3.5-5.0); ALT/SGPT 31 U/L (21-72); AST/SGOT 42 U/L (17-59); BLOOD UREA NITROGEN 15 mg/dL (9-20); CALCIUM 8.6 mg/dl (8.6-10.4); GFR NON-AFRICAN AMERICAN > 60
[2019-01-30] MEDS: Albuterol-Ipratrop 3 mg / 0.5 (3 ml) UD INH SCH ×5 (00:56→15:47)
[2019-01-30 01:00] VITALS: PULSE 85
--- NOTE | 2019-01-30 07:26 | CP.PCM.PN ---
Subjective - Date & Time of Evaluation Date of Evaluation: 01/30/19 Time of Evaluation: 07:26 - Subjective Subjective: Progress note for Dr. Gonzalez Patient was seen and examined at bedside in no acute distress. Patient has no complaints today and denies chest pain, palpitations, nausea, vomiting, fevers, headaches, abdominal pain, constipation, diarrhea, dysuria. Objective - Vital Signs/Intake and Output Vital Signs (last 24 hours): Temp Pulse Resp BP Pulse Ox 97.7 F 85 20 157/90 H 98 01/30/19 00:00 01/30/19 00:00 01/30/19 00:00 01/30/19 00:00 01/30/19 00:00 - Medications Medications: Current Medications Albuterol/Ipratropium (Duoneb 3 Mg/0.5 Mg (3 Ml) Ud) 3 ml INH RQ4 [facility] Last Admin: 01/30/19 04:16 Dose: Not Given Budesonide (Pulmicort Respules) 0.5 mg INH RQ12 [facility] Last Admin: 01/29/19 19:29 Dose: Not Given Diltiazem HCl (Cardizem) 30 mg PO QID [facility] Last Admin: 01/29/19 23:30 Dose: 30 mg Escitalopram Oxalate (Lexapro) 10 mg PO DAILY [facility] Last Admin: 01/29/19 10:06 Dose: 10 mg Folic Acid (Folic Acid) 1 mg PO DAILY [facility] Last Admin: 01/29/19 10:06 Dose: 1 mg Gabapentin (Neurontin) 100 mg PO DAILY [facility] Last Admin: 01/29/19 10:05 Dose: 100 mg Heparin Sodium (Porcine) (Heparin) 5,000 units SC Q8 [facility] Last Admin: 01/30/19 06:18 Dose: 5,000 units Hydroxyzine HCl (Atarax) 25 mg PO Q6H PRN PRN Reason: severe anxiety Last Admin: 01/26/19 17:49 Dose: 25 mg Multivitamins (Hexavitamin) 1 tab PO DAILY [facility] Last Admin: 01/29/19 10:06 Dose: 1 tab Nicotine (Nicoderm Cq) 1 patch TD DAILY [facility] Last Admin: 01/29/19 10:05 Dose: 1 patch Pantoprazole Sodium (Protonix Ec Tab) 40 mg PO DAILY [facility] Last Admin: 01/29/19 10:06 Dose: 40 mg Prednisone (Prednisone Tab) 20 mg PO DAILY [facility] Last Admin: 01/29/19 10:06 Dose: 20 mg Prednisone (Prednisone Tab) 10 mg PO DAILY [facility] Last Admin: 01/29/19 10:06 Dose: 10 mg Promethazine HCl (Phenergan Syrup) 12.5 mg PO Q6 PRN PRN Reason: Cough Last Admin: 01/29/19 10:05 Dose: 12.5 mg Tamsulosin HCl (Flomax) 0.4 mg PO DAILY [facility] Last Admin: 01/29/19 10:06 Dose: 0.4 mg Thiamine HCl (Vitamin B1 Tab) 100 mg PO DAILY [facility] Last Admin: 01/29/19 10:06 Dose: 100 mg - Labs Labs: 01/29/19 07:04 01/29/19 07:04 PT 10.3 SECONDS (9.7-12.2) 01/11/19 14:06 INR 0.9 01/11/19 14:06 APTT 31 SECONDS (21-34) 01/11/19 14:06 - Additional Findings Additional findings: - Constitutional Appears: No Acute Distress - Head Exam Head Exam: ATRAUMATIC, NORMAL INSPECTION - Eye Exam Eye Exam: EOMI, Normal appearance - ENT Exam ENT Exam: Mucous Membranes Moist - Respiratory Exam Respiratory Exam: Decreased Breath Sounds, Wheezes. absent: Clear to Ausculation Bilateral - Cardiovascular Exam Cardiovascular Exam: Irregular Rhythm, +S1, +S2 - GI/Abdominal Exam GI & Abdominal Exam: Soft, Normal Bowel Sounds. absent: Distended, Firm, Tenderness - Extremities Exam Extremities Exam: Normal Inspection. absent: Calf Tenderness, Pedal Edema, Tenderness - Neurological Exam Neurological Exam: Alert, Awake, Oriented x3 - Psychiatric Exam Psychiatric exam: Normal Affect, Normal Mood - Skin Skin Exam: Dry, Warm Assessment and Plan - Assessment and Plan (Free Text) Plan: 58 year old male with a past medical history of heroin abuse, copd, and polysubstance abuse presents for hypothermia. 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 At that time patient was transferred to ICU for closer observation, placed on bipap and given duoneb and racemic epinephrine. Patient has been has been transferred out of ICU and currently on tele 01/15/19. - Patient is currently on BiPap, encouraged to use NC - Repeat Chest xray 01/19/19: COPD; possible pneumonia - Medications: * Duonebs q4h * Pulmicort 0.5mg INH RQ12 * Solu-Medrol 40mg IV q6h (stop 01/16/19) * Prednisone 60mg po daily for 3 days --> Prednisone 40mg po daily for 3 days --> Prednisone 20mg po daily for 3 days --> Prednisone 10mg po daily for 3 days Anemia - Hemoglobin 12---> 8.3 - f/u Stool occult blood - Type and Screen - Will monitor with serial CBC's Polysubstance abuse - Psych Consult: Dr. Heredia --> help appreciated - Alcohol level on admission (01/11/19): 216; positive for benzodiazepines - Medications: * Multivitamin po daily * Folic acid 1mg PO DAILY FERNANDA * Thiamine 100mg PO DAILY FERNANDA * Nicotine Patch TD * Atarax 25mg PO Q6 prn New Onset Atrial fibrillation - Likely / to etoh abuse. Patient has no history of atrial fibrillation in the past - Due to patient polysubstance abuse, and withdrawal symptoms patient is a high fall risk * anticoagulation not recommended currently as patient a fall risk - ECHO (01/13/19): EF 59% - Medications: * Cardizem 30mg po qid Leukocytosis - Resolved - WBC: 16.9 --->11.2 --> 5 - Likely secondary to steroids - Blood cultures and Urine cultures are negative - Chest xray (01/13/18): No focal consolidation - Medications: * Zosyn 3.375mg IVPB Q6 (discontinued 01/19/19) Elevated Liver Enzymes - Resolved - Normalized, was likely secondary to alcohol abuse - continue to monitor BPH - Flomax 0.4 mg PO daily Depression - Lexapro 10mg po daily - Psych Consult: Dr. Heredia --> help appreciated Prophylaxis - GI: Protonix 40mg PO daily - DVT: Lovenox 40mg SC daily - Physical Therapy; recommends [facility]AS - POLST signed- DNR/DNI (Palliative care consulted, help appreciated) - Case management referral for [facility] placement. Patient is stable for discharge to [facility]. Patient must continue all medications. If symptoms worsen or reoccur, patient should return to the nearest emergency room. Case discussed with and patient seen with Dr. Lisa Esqueda, PGY2
[2019-01-30] MEDS: Budesonide 0.5 mg/2 ml Inhal Susp UD INH SCH (07:50)
[2019-01-30 08:21] LABS: BASO % 0.3 % (0.0-2.0); EOS # 0.1 K/uL (0.0-0.7); EOS % 1.8 % (0.0-4.0); HEMOGLOBIN 10.1 g/dL (12.0-18.0); LYMPH # 1.4 K/uL (1.0-4.3); MEAN CELL VOLUME 87.2 fL (80.0-94.0); MEAN CORPUSCULAR HEMOGLOBIN 28.4 pg (27.0-31.0); MEAN CORPUSCULAR HGB CONC 32.6 g/dL (33.0-37.0); MEAN PLATELET VOLUME 7.7 fL (7.2-11.7); MONO # 0.5 K/uL (0.0-0.8); MONO % 6.2 % (0.0-10.0); NEUT # 6.1 K/uL (1.8-7.0); NEUT % 74.7 % (50.0-75.0); RBC 3.57 Mil/uL (4.40-5.90); RED CELL DISTRIBUTION WIDTH 20.2 % (11.5-14.5); WHITE BLOOD COUNT 8.1 K/uL (4.8-10.8)
[2019-01-30 08:39] VITALS: BP 146/85; TEMP 97.8; O2SAT 96
[2019-01-30 08:41] LABS: ALB/GLOB RATIO 1.4 (1.0-2.1); ALBUMIN 3.6 g/dL (3.5-5.0); ALT/SGPT 31 U/L (21-72); AST/SGOT 19 U/L (17-59); BLOOD UREA NITROGEN 15 mg/dL (9-20); CALCIUM 8.7 mg/dl (8.6-10.4); GFR NON-AFRICAN AMERICAN > 60
[2019-01-30] MEDS: Multiple Vitamins Tab PO SCH (09:33)
[2019-01-30] MEDS: Pantoprazole 40 mg EC Tab PO SCH (09:33)
[2019-01-30] MEDS: Promethazine 12.5 mg/10 ml Syrup PO PRN (09:33)
--- NOTE | 2019-02-03 12:47 | DS ---
Mr. Rodriguez admitted to hospital with shortness of breath, severe COPD, current stroke. The patient started on IV antibiotic, bronchodilator, BiPAP, prolonged ICU and floor to monitor treatment. The patient gradually improved, discharged, followed as outpatient. DIAGNOSES: Respiratory failure, pneumonia, chronic obstructive pulmonary disease, drug abuse. Dino Gonzalez MD
== END 2019-01-30 16:45 | DRG 541 ==
LOC: C.ER 12:42 → C.9E 16:22 → C.5S 19:36 → C.9I 01-13 06:18 → C.5S 01-16 08:38
PROVIDERS: ADMIT Internal Medicine Pulmonary Disease; ATTEND Internal Medicine Pulmonary Disease
PROC: HZ52ZZZ Individual Psychotherapy for Substance Abuse Treatment, Cognitive-Behavioral (ICD-10-PCS; principal; 2019-01-13)
PROC: HZ59ZZZ Individual Psychotherapy for Substance Abuse Treatment, Supportive (ICD-10-PCS; 2019-01-13)
PROC: HZ56ZZZ Individual Psychotherapy for Substance Abuse Treatment, Psychoeducation (ICD-10-PCS; 2019-01-13)
PROC: GZ58ZZZ Individual Psychotherapy, Cognitive-Behavioral (ICD-10-PCS; 2019-01-13)
PROC: GZ56ZZZ Individual Psychotherapy, Supportive (ICD-10-PCS; 2019-01-13)
PROC: 5A09557 Assistance with Respiratory Ventilation, Greater than 96 Consecutive Hours, Continuous Positive Airway Pressure (ICD-10-PCS; 2019-01-13)
DX: J96.02 Acute respiratory failure with hypercapnia (principal); J18.9 Pneumonia, unspecified organism; E87.2 Acidosis; F11.20 Opioid dependence, uncomplicated; F33.2 Major depressive disorder, recurrent severe without psychotic features; F10.230 Alcohol dependence with withdrawal, uncomplicated; J44.1 Chronic obstructive pulmonary disease with (acute) exacerbation; J44.0 Chronic obstructive pulmonary disease with (acute) lower respiratory infection; I48.0 Paroxysmal atrial fibrillation; J96.01 Acute respiratory failure with hypoxia; T68.XXXA Hypothermia, initial encounter; F10.220 Alcohol dependence with intoxication, uncomplicated; F10.229 Alcohol dependence with intoxication, unspecified; F41.1 Generalized anxiety disorder; F17.210 Nicotine dependence, cigarettes, uncomplicated; F60.9 Personality disorder, unspecified; I10 Essential (primary) hypertension; K21.9 Gastro-esophageal reflux disease without esophagitis; Y90.7 Blood alcohol level of 200-239 mg/100 ml; F12.90 Cannabis use, unspecified, uncomplicated; D64.9 Anemia, unspecified; D72.829 Elevated white blood cell count, unspecified; T38.0X5A Adverse effect of glucocorticoids and synthetic analogues, initial encounter; N40.0 Benign prostatic hyperplasia without lower urinary tract symptoms; Z51.5 Encounter for palliative care; Z66 Do not resuscitate; Z59.0 Homelessness; Z91.5 Personal history of self-harm; X31.XXXA Exposure to excessive natural cold, initial encounter